=== PATIENT | female | born 1990 | race Caucasian/White ===

== ENCOUNTER 2020-10-11 21:49 | Inpatient (IN) | payer OTHER, SELFPAY ==
--- NOTE | ~2020-10-11 | XR_ITS ---
EXAMINATION: XR FOOT, LEFT CLINICAL INFORMATION: Pain COMPARISON: None TECHNIQUE: AP, lateral, and oblique views of the left foot. FINDINGS: Bone alignment is normal. No fracture or dislocation is seen. There is arthritis at the first MTP joint. Joint spaces are otherwise normal. There are calcaneal spurs. XR/XR foot LT 2V IMPRESSION: Arthritis at the first MTP joint and calcaneal spurs.
--- NOTE | ~2020-10-11 | CT_ITS ---
EXAMINATION: CT ABDOMEN AND PELVIS WITH CONTRAST CLINICAL INFORMATION: Abdominal pain COMPARISON: None TECHNIQUE: Multidetector volumetric images were obtained from the superior aspect of the liver through the pubic symphysis following administration 100 mL of Omnipaque 350 intravenous contrast. Sagittal and coronal reformatted images were obtained on the technologist's workstation. Oral contrast: No This CT examination was performed using dose optimization techniques as appropriate, variously including the following: *Automated exposure control *Adjustment of mA and/or kV according to patient size (this includes techniques or standardized protocols for targeted exams where dose is matched to indication/reason for exam; i.e. extremities or head) *Use of iterative reconstruction technique DLP: 1502 mGy-cm FINDINGS: LUNG BASES: The visualized lung bases are unremarkable. No pleural or pericardial effusion. LIVER, GALLBLADDER, AND BILIARY TREE: There is hepatomegaly with vertical span of approximately 23 cm. There appears to be fatty infiltration with no focal mass or intrahepatic bile duct dilatation identified. The gallbladder is unremarkable with no evidence of radiopaque gallstones, gallbladder wall thickening, or obvious pericholecystic inflammatory changes. PANCREAS: Unremarkable. SPLEEN: The spleen is mildly enlarged measuring approximately 14 cm in length. ADRENAL GLANDS: Unremarkable. KIDNEYS AND URETERS: The kidneys are normal in size, shape, and attenuation. No hydronephrosis, hydroureter, or calculi seen. No perinephric stranding. BLADDER: Unremarkable. GASTROINTESTINAL TRACT: No dilated loops of large or small bowel are evident. No free air or free fluid is seen. No pericolonic inflammatory changes noted. The appendix appears unremarkable. ABDOMINAL WALL: No significant hernia is appreciated. LYMPH NODES: Normal. VASCULAR: Unremarkable. PELVIC VISCERA: Unremarkable. OSSEOUS STRUCTURES: No suspicious destructive bony lesions identified. CT/CT abdomen pelvis w con IMPRESSION: Hepatosplenomegaly with fatty infiltration of the liver.
--- NOTE | ~2020-10-11 | US_ITS ---
EXAMINATION: US VENOUS ULTRASOUND WITH DOPPLER LOWER EXTREMITY, BILATERAL CLINICAL INFORMATION: Swelling COMPARISON: Previous exam 10/29/2020 TECHNIQUE: Ultrasound of the deep veins is performed from the hip to the calf with compression sonography and color and pulse Doppler assessment. Spectral analysis with color-flow imaging is performed. FINDINGS: RIGHT: There is normal venous compression and respiratory variation and augmented flow. The visualized common femoral vein, superficial femoral vein, profunda femoral vein, popliteal vein, and the trifurcation region shows no evidence of deep venous thrombosis. There is no significant popliteal fossa cyst. LEFT: There is normal venous compression and respiratory variation and augmented flow. The visualized common femoral vein, superficial femoral vein, profunda femoral vein, popliteal vein, and the trifurcation region shows no evidence of deep venous thrombosis. There is no significant popliteal fossa cyst. US/US venous duplex LE BI IMPRESSION: No DVT demonstrated in the bilateral lower extremity.
--- NOTE | ~2020-10-11 | CT_ITS ---
EXAMINATION: CT HEAD WITHOUT CONTRAST CLINICAL INFORMATION: Paranoid delusions COMPARISON: None TECHNIQUE: Contiguous axial imaging was performed from the skull base to vertex without intravenous administration of contrast. This CT examination was performed using dose optimization techniques as appropriate, variously including the following: *Automated exposure control *Adjustment of mA and/or kV according to patient size (this includes techniques or standardized protocols for targeted exams where dose is matched to indication/reason for exam; i.e. extremities or head) *Use of iterative reconstruction technique DLP: 1018 mGy-cm FINDINGS: There is no evidence of acute intracranial hemorrhage or territorial infarction. No abnormal mass effect or midline shift is seen. Banuelos to white matter differentiation is well preserved. No extra-axial fluid collections are identified. The ventricles are normal in size. There is no abnormal attenuation within the brain parenchyma. The osseous structures and soft tissues are normal. The mastoid air cells and visualized portions of the paranasal sinuses are well aerated. CT/CT head/brain wo con IMPRESSION: No acute intracranial pathology.
--- NOTE | ~2020-10-11 | XR_ITS ---
EXAMINATION: CHEST 2 VIEWS CLINICAL INFORMATION: Elevated white blood cell count. COMPARISON: None. TECHNIQUE: PA and lateral views of the chest were obtained. FINDINGS: The cardiac silhouette is not enlarged. The mediastinal and hilar contours are unremarkable. There are neither pleural effusions nor pneumothoraces. There are no consolidations. The osseous structures are unremarkable. XR/XR chest 2V IMPRESSION: No evidence for acute disease.
--- NOTE | ~2020-10-11 | US_ITS ---
EXAMINATION: US VENOUS ULTRASOUND WITH DOPPLER LOWER EXTREMITY, LEFT CLINICAL INFORMATION: Left calf warmth, painful COMPARISON: None TECHNIQUE: Ultrasound of the deep veins is performed from the hip to the calf with compression sonography and color and pulse Doppler assessment. Spectral analysis with color-flow imaging is performed. FINDINGS: There is normal venous compression and respiratory variation and augmented flow. The visualized common femoral vein, superficial femoral vein, profunda femoral vein, popliteal vein, and the trifurcation region shows no evidence of deep venous thrombosis. There is no significant popliteal fossa cyst. If the patient's symptoms persist, followup ultrasound in 5 days 7 days might be of value to exclude proximal propagation from a non-visualized calf vein. US/US venous duplex LE LT IMPRESSION: No DVT demonstrated in the left lower extremity.
--- NOTE | 2020-10-11 22:04 | MHC.CARE ---
[facility] crisis marble installer supervisor contacted re: pt who arrived on a Section 12 from [facility] for increasing disorientation and paranoid delusions. Pt was evaluated by [facility] this afternoon with disposition for respite placement, however once pt arrived to respite for admission pt was deemed not appropriate for that level of care. Pt will require a re-eval from [facility] to determine most appropriate course of treatment. No clinician will be available until the morning, per [facility] marble installer supervisor. Given that pt's crisis evaluation process is considered to be in progress, pt will remain in ED awaiting [facility] re-eval and will not be seen by CARE team.
[2020-10-11 22:22] VITALS: BP 146/82; PULSE 103; RESP 17; TEMP 36.9; O2SAT 95; BMI 63.5
--- NOTE | 2020-10-12 00:55 | PC.NURSE ---
This nurse called the PT's sister to find out more detail about the events that transpired earlier in the day. The sister explained that the PT called EMS because she believed that her sister was doing drugs in the bathroom. None of the claims made by the PT were substantiated by either PD or EMS on scene. The PT then called EMS again thereafter for herself because she did not feel well. [facility] became involved and had the PT assessed at one of their facility but the PT refused to admit herself voluntarily. [facility] then Sectioned the PT and had her sent to [facility] for assessment of paranoid behavior. After speaking with the sister this nurse transferred the call over to the unit phone so the PT could talk to her sister. After of few minutes of talking with her sister the PT became very distressed and started yelling for this nurse to come talk to the sister because her sister was ready to take her own life . This nurse picked up the phone and asked the sister if everything was all right. The sister confirmed that she was at home with her and had no intentions of hurting herself. This nurse then advised the PT to listen to what her sister was telling her and to try to get some rest at this time. The PT then hung up the phone and went to her room. PT was then agreeable to provide blood for labs. Continued to fixate on the fact that her sister was going to and she needed to speak with her before it was too late.
[2020-10-12 01:01] LABS: Basophils Absolute Auto 0.1 X10*3/uL (0.0-0.2); Basophils Percent Auto 0.4 % (0-2); Eosinophils Absolute Auto 0.1 X10*3/uL (0.0-0.4); Eosinophils Percent Auto 0.3 % (0-4); Hematocrit 41.4 % (37-47); Hemoglobin 13.9 g/dl (12.0-16.0); Imm Gran Abs Auto 0.08 X10*3/uL (0.00-0.03); Imm Gran Pct Auto 0.5 % (0.0-0.4); Lymphocytes Absolute Auto 3.7 X10*3/uL (1.2-4.9); Lymphocytes Percent Auto 22.4 % (20-40); MANUAL DIFF FLAG NO; Mean Corpuscular HGB Conc 33.6 g/dl (31.0-35.0); Mean Corpuscular Hemoglobin 27.9 pg (27.0-33.0); Mean Corpuscular Volume 83.1 fL (80-98); Mean Platelet Volume 9.9 fL (9.4-12.3); Monocytes Percent Auto 6.1 % (2-11); Neutrophils Absolute Auto 11.7 X10*3/uL (2.0-8.3); Neutrophils Percent Auto 70.3 % (45-73); Platelet Count 300 X10*3/uL (160-400); Red Blood Count 4.98 X10*6/uL (4.20-5.50); Red Cell Distribution Width 12.6 % (11.0-16.0); White Blood Count 16.6 X10*3/uL (4.8-10.8)
[2020-10-12 01:26] LABS: Ethanol < 10 mg/dL
[2020-10-12 01:28] LABS: Alanine Aminotransferase 50 U/L (0-31); Albumin Level 4.8 g/dL (3.5-5.0); Alkaline Phosphatase 86 U/L (39-117); Anion Gap 19 (12-20); Aspartate Amino Transferase 28 U/L (5-31); Bilirubin Direct 0.3 mg/dL (0.0-0.5); Bilirubin Total 0.8 mg/dL (0.0-1.0); Blood Urea Nitrogen 16 mg/dL (9-16); Calcium 9.7 mg/dL (8.4-10.2); Carbon Dioxide 25 mmol/L (22-29); Chloride 99 mmol/L (96-108); Creatinine Clr Calc Pharmacy 188.1; Estimated Glomerular Filt Rate > 60; Glucose Random 145 mg/dL (60-115); Potassium 3.6 mmol/L (3.3-5.1); Sodium 139 mmol/L (135-145); Total Protein 8.1 g/dL (6.5-8.0)
--- NOTE | 2020-10-12 01:32 | ED_ITS ---
HPI - Psych General Chief Complaint: Psychiatric Symptoms Stated Complaint: crisis Time Seen by Provider: 10/12/20 01:53 Source: patient Mode of arrival: EMS Limitations: no limitations History of Present Illness HPI Narrative: Patient presents to ED for psych evaluation. Patient does not understand why she is in the ED to be seen. Patient states her sister should be in the ED to be seen. Patient states her sister had tried multiple times to kill herself. Patient states she was trying to intervene with sister. Patient states his sister was in the bathroom trying to kill herself so she called EMS and the EMS brought her to ED for evaluation instead. Patient denies any suicidal homicidal thoughts. Patient denies any suicidal/homicidal ideation Related Data Previous Rx's Medication Instructions Recorded atenolol 50 mg-chlorthalidone 25 1 tab PO DAILY 30 Days #30 tab 10/01/20 mg tablet Allergies Allergy/AdvReac Type Severity Reaction Status Date / Time kiwi [KIWI] Allergy Mild HIVES Verified 10/01/20 14:49 mold [MOLD EXTRACTS*] Allergy Mild HIVES Verified 10/01/20 14:49 Review of Systems Review of Systems: Yes all other systems are reviewed and are negative Constitutional: Constitutional: Reports as per HPI and Reports no additional constitutional complaints Eyes: Eyes: Reports as per HPI and Reports no additional eye complaints ENT: Reports system reviewed and no additional complaints, except as documented and Reports as per HPI Cardiovascular: Cardiovascular: Reports as per HPI and Reports no additional cardiovascular complaints Respiratory: Respiratory: Reports as per HPI and Reports no additional respiratory complaints Gastrointestinal: Gastrointestinal: Reports as per HPI and Reports no additional gastrointestinal complaints Musculoskeletal: Musculoskeletal: Reports no additional musculoskeletal complaints and Reports as per HPI Neurologic: Reports system reviewed and no additional complaints, except as documented and Reports as per HPI Psychiatric: Psychiatric: Reports no additional psychiatric complaints COUNTS INCLUDE 234 BEDS AT THE [facility] Past Medical History Surgical History History of ovarian cyst History of wisdom tooth extraction Family History Family History Father HTN (hypertension) Diabetes mellitus Mother Afib Maternal Grandfather No problems noted. Maternal Grandmother No problems noted. Paternal Grandmother Breast cancer Paternal Grandfather No problems noted. Sister No problems noted. Social History Social History Alcohol intake: never Smoking Status: Never smoker Tobacco Type: Cigarette Smoked in Last 30 Days: No Use of substances other than those prescribed or required for medical reasons: No Advance Directives: No Advance Directives Information Provided: No Physical Exam Vital Signs: Vital Signs: Last Vital Signs Temp 98.4 F 10/11/20 22:22 Pulse 103 H 10/11/20 22:22 Resp 17 10/11/20 22:22 BP 146/82 H 10/11/20 22:22 Pulse Ox 95 10/11/20 22:22 Body Mass Index 63.5 Const: General: cooperative, healthy appearing, comfortable, no acute distress, well developed, alert, awake and Physically active Orientation/co nsciousness: patient oriented x3 HENMT: Head: Yes normal to inspection, Yes No palpable skull fracture present, Yes normocephalic, Yes atraumatic, No abrasion, No Acrocyanosis present, No Mobley's sign, No contusion, No cranial bruits, No hematoma, No laceration, No occipital foramen tenderness, No palpable skull fracture, No raccoon eyes, No scalp lesion, No scalp tenderness, No Temporal artery tenderness present, No periorbital ecchymosis and No other Eyes: General: appearance normal, both eyes and all related structures Neck: Neck: Yes normal visual inspection, Yes full ROM, Yes no lymphadenopathy, Yes no meningeal signs, Yes trachea midline, Yes supple and No tender Chest: Chest palpation & inspection: normal inspection of the chest and normal palpation of entire chest wall Resp: Effort & Inspection: normal respiratory effort and able to speak in complete sentences Cardio: Jugular venous distension: no JVD Heart sounds: S1 normal heart sound present and S2 normal heart sound present GI: Inspection: Yes normal to inspection and No abdominal wall ecchymosis Palpation (GI): Soft to palpation, not firm, nontender, no guarding and not rigid : General: No CVA tenderness and Yes no CVA tenderness Back/Spine/Pelvis: Back: no CVA tenderness, No CVA tenderness and No back tenderness Skin: General skin exam: no rashes or lesions noted and elasticity normal Neuro: General: patient oriented x3, gait normal, no meningeal signs and CN's II-XI intact bilaterally Extrem: General: Yes full ROM Psych: Appearance: grossly normal, well kempt and not disheveled Thought content: Paranoid delusions present Course Course Course Narrative: Soike with care team consulted Lucy and she states patient having paranoid delusions. Mother states patient is having delusions+-and is obsessed with the idea that her sister is trying to kill herself. Mother and sister states sister has never tried to kill herself. They states patient is having delusions with no merit. Reevaluation(s) Reevaluation #1: With this new information, behavioral crsis evaluation is recommended by her mother. Patient will have labs. Case signed out to Dr. Aj. patient has elevated WBC. will send for chest xray. pending UA. Time: 01:40 Discharge Plan Discharge Clinical Impression: Paranoid delusion Prescriptions: No Action atenolol-chlorthalidone 50-25 mg tablet 1 tab PO DAILY 30 Days Qty: 30 RF: 0
--- NOTE | 2020-10-12 02:22 | PC.NURSE ---
KUL[facility]EP faxed and called.
--- NOTE | 2020-10-12 05:08 | PC.NURSE ---
PT having difficulty sleeping. PT asked to have her brittney changed because it was too small on her. After PT changed she became distressed about the idea of going back into room number 6. PT stated that she could not go back into that room. PT was switched to room number 5 and went to sleep for the first time all night.
[2020-10-12 06:46] VITALS: BP 142/75; PULSE 89; RESP 17; TEMP 36.9; O2SAT 100
--- NOTE | 2020-10-12 06:58 | PC.NURSE ---
Report received. Pt currently sitting in her room, calm and cooperative, pt waiting to be seen by N.
[2020-10-12 08:40] LABS: Glucose Urine UA NEG (NEG); Leukocyte Esterase Urine NEG (NEG); Nitrite Urine NEG (NEG); PH 5.5 (5.0-8.0); Urine Blood NEG (NEG); Urine Ketones NEG (NEG); Urine Protein NEG (NEG-TRACE)
[2020-10-12 08:43] LABS: Appearance Urine CLEAR; Color Urine YELLOW
[2020-10-12 08:44] VITALS: BP 146/71; PULSE 92; RESP 16; TEMP 37.1; O2SAT 98
[2020-10-12 08:53] VITALS: BP 146/71; PULSE 92
[2020-10-12] MEDS: hydroCHLOROthiazide 25 MG TABLET PO (08:53)
[2020-10-12] MEDS: atenoloL 50 MG TABLET PO (08:53)
[2020-10-12 09:08] LABS: Amphetamine Screen Urine Not Detected (Not Detect); Barbiturates, Urine Not Detected (Not Detect); Benzodiazepines Screen Urine Not Detected (Not Detect); Cannabinoid Screen Urine Not Detected (Not Detect); Cocaine Screen Urine Not Detected (Not Detect); Opiate Screen Urine Not Detected (Not Detect); Phencyclidine Screen Urine Not Detected (Not Detect)
--- NOTE | 2020-10-12 09:33 | PC.NURSE ---
BHN at bedside for eval
--- NOTE | 2020-10-12 10:12 | PC.NURSE ---
PT approached this RN and said that there is an emergency at home, pt states that her sister is not doing well due to PTSD and that she needs an ambulance, pt redirected. This RN spoke with PT's sister, she assured this RN that she is fine and asked that I reassure PT. Pt currently calling family again, pt concerned about her mother and her dog at this time.
[2020-10-12] MEDS: LORazepam 1 MG TABLET 2 MG PO (11:05)
--- NOTE | 2020-10-12 13:04 | PC.NURSE ---
Late Entry: 11:05, pt anxious, believes her family to be in danger, pt called family multiple times and was assured that they are safe. PT continues to believe they are in danger/are . Pt redirected, verbal reassurance given. Pt labile, laughing and crying and then angry, Pt offered and accepted medication, medicated per EMAR.
--- NOTE | 2020-10-12 15:12 | PC.NURSE ---
Report received. Pt agitated, my mom and sister aren't okay , crying, swearing. Meeting with CARE team at current.
--- NOTE | 2020-10-12 15:46 | PC.NURSE ---
Continues to perseverate over family and cafe. I have the gift, everyone knows it, my family is on 's door and they are all suffering from PTSD
[2020-10-12] MEDS: OLANZapine 5 MG TABLET PO (15:51)
--- NOTE | 2020-10-12 15:59 | PC.NURSE ---
Crying, I have the mediumship, my family are going to , I am scared my dad is going to have a DVT and my mom is going to have a heart attack . Pt reassured by this RN that her family is safe. Pt offered and accepting of zyprexa 5 MG at that time. Effect pending. Pt on the phone at current.
--- NOTE | 2020-10-12 16:54 | PC.NURSE ---
Zyprexa had a positive effect. Pt sitting on bed at current, calm. No longer agitated, laughing with staff, not fixated on family or making any other delusion statements. Pt reports she is going to attempt to get some sleep.
--- NOTE | 2020-10-12 18:22 | PC.NURSE ---
Pt calm, sitting on bed. Disorganized, taking johnnies on and off, asking to shower or cleanup after she had done so 10 minutes prior, redirectable when reminded though. MHT taking vitals at bedside at current.
[2020-10-12 18:31] VITALS: BP 112/56; PULSE 81; RESP 14; TEMP 37.2; O2SAT 96
--- NOTE | 2020-10-12 19:24 | PC.NURSE ---
RECEIVED REPORT. REVIEWED CHART. PER REPORT PATIENT HAS NEVER HAD ANY MENTAL HEALTH ISSUES. THIS WAS ACUTE AND NEW ONSET. SPOKE WITH SUPA DEL VALLE WHO EVALUATED PATIENT UPON ARRIVAL LAST NIGHT. QUESTIONED WHY THERE WAS NO HEAD CT FOR ACUTE NEW ONSET PSYCHOSIS. PER SUPA DEL VALLE HE THOUGHT THERE WAS A HISTORY. REVIEWED RECORDS TOGETHER AND PLAN TO OBTAIN HEAD CT AT THIS TIME. WENT TO PATIENTS ROOM AND OFFERED THE PRESCRIBED ATIVAN PRIOR TO GOING TO CT. EXPLAINED WE NEED A CT TO RULE OUT EVERYTHING TO ENSURE THAT SHE IS FEELING BETTER AND SAFE TO GO HOME. PATIENT UPSET AND WANTS LIGHTS TO STAY DIMMED BECAUSE SHE DOES NO'T WANT THE BUGS TO BE HEARING HER. REPORTS FINDING A BUG ON HER MATTRESS. CONTINUES TO BELIEVE THAT MOM AND SISTER ARE ACTIVELY DYING FROM AN OVERDOSE DESPITE EVERY INDICATION OTHERWISE. PATIENT NOTED TO BE LOOKING AROUND ROOM AND RESPONDING TO INTERNAL STIMULI.
[2020-10-12 19:37] VITALS: BP 128/45; PULSE 83; RESP 22; TEMP 35.8; O2SAT 96
--- NOTE | 2020-10-12 19:38 | PC.NURSE ---
PATIENT CALLED THIS NURSE TO ROOM BECAUSE SHE FELT LIKE SHE WAS GOING TO FAINT. ASKED PATIENT TO SIT ON BED. VITALS OBTAINED. PATIENT NOW AGREEABLE TO HEAD CT. WILL GET PATIENT TO CT SOON POSSIBLE.
[2020-10-13] VITALS: RESP 22
[2020-10-13 07:03] VITALS: BP 116/66; PULSE 80; RESP 18; TEMP 37.4; O2SAT 96
--- NOTE | 2020-10-13 07:07 | PC.NURSE ---
Report received from SYDNEY Webb. Pt awake, affect even, eating breakfast.
[2020-10-13 07:31] LABS: UPreg QC Valid YES; Urine Pregnancy NEGATIVE (NEGATIVE)
[2020-10-13 08:30] VITALS: BP 132/73; PULSE 86
[2020-10-13] MEDS: atenoloL 50 MG TABLET PO (08:30)
[2020-10-13] MEDS: hydroCHLOROthiazide 25 MG TABLET PO (08:30)
--- NOTE | 2020-10-13 08:41 | PC.NURSE ---
Pt anxious, tearful, requiring frequent reassurances, often asking 'am I in trouble?' Pt oriented x3, declining to speak w/ family on the telephone initially because she wanted to speak to all her family at once in person. Pt encouraged to call. Pt gave permission to speak to her family.
[2020-10-13 08:50] LABS: COVID-19 Test Negative (Negative)
[2020-10-13] MEDS: LORazepam 1 MG TABLET 2 MG PO (09:16)
--- NOTE | 2020-10-13 09:23 | PC.NURSE ---
Pt continues to be anxious, persevering about family, worried that harm has occurred to them or will occur. Reviewed w/ A haseeb, pt medicated as ordered, currently awake, calling home.
--- NOTE | 2020-10-13 09:42 | PC.NURSE ---
Pt requesting to speak to a therapist, CARE team in to speak w/ pt.
--- NOTE | 2020-10-13 10:49 | MHC.CARE ---
CARE Team spent time with patient who was in distress about being in the hospital, she reported worrying about her mother and sister?s health, believes that something bad has happened or is about to happen. Offered supportive listening, reassurance, gave suggestions for self soothing and grounding which patient responded well to. She was nervous, tangential, said she is not hearing or seeing things but is, ?getting messages? such as when she suddenly felt cold patient attributed that to something bad about to happen to her sister. In addition, noticed that her nail cambodian and a scrap of paper were the same shade of pink and became tearful, said she knows that it has meaning and is scared of what that might be. Patient aware that she is in the hospital, feels there was a misunderstanding and should not be here, has been making calls to family. CARE Team available as needed.
--- NOTE | 2020-10-13 11:01 | PC.NURSE ---
Pt reports a reduction of anxiety after receiving ativan but continues to worry that something has happened to her family. pt attempted to reach her mother, who didn't flower buncher or picker, causing her more anxiety. Pt states that she is receiving messages from the [facility]' warning her that bad things will be happening to her family. Pt denies ah/vh.
--- NOTE | 2020-10-13 11:23 | PC.NURSE ---
Per M5, pt will not be transferred today- provider aware, consult entered, M5 called to confirm.
--- NOTE | 2020-10-13 11:53 | PC.NURSE ---
Pt awake, appears to be increasingly irritated, demanding to speak w/ HYDROELECTRIC MECHANIC 'of this company' stating that she would like to go home, stating she feels as if she is being punished for 'this gift from God.' Pt reassured, informed that consult was called and will be here to answer pt's questions.
[2020-10-13 12:00] VITALS: RESP 20
--- NOTE | 2020-10-13 13:27 | PC.NURSE ---
Late entry: pt seen by provider at her request to review labs and other results but per provider, pt no longer focused on this question. Karma continues to perseverate re: family safety, making many calls to confirm their safety. Pt reassured frequently, seen by several staff at her request. Awaiting psych consult, pt aware.
--- NOTE | 2020-10-13 14:02 | PC.NURSE ---
Loren Tijerina at bedside for evaluation at this time.
[2020-10-13 15:03] LABS: MANUAL DIFF FLAG NO
[2020-10-13 15:06] LABS: Basophils Absolute Auto 0.1 X10*3/uL (0.0-0.2); Basophils Percent Auto 0.4 % (0-2); Eosinophils Absolute Auto 0.1 X10*3/uL (0.0-0.4); Eosinophils Percent Auto 0.6 % (0-4); Hematocrit 38.1 % (37-47); Hemoglobin 12.8 g/dl (12.0-16.0); Imm Gran Abs Auto 0.07 X10*3/uL (0.00-0.03); Imm Gran Pct Auto 0.5 % (0.0-0.4); Lymphocytes Absolute Auto 3.8 X10*3/uL (1.2-4.9); Lymphocytes Percent Auto 26.3 % (20-40); Mean Corpuscular HGB Conc 33.6 g/dl (31.0-35.0); Mean Corpuscular Hemoglobin 27.9 pg (27.0-33.0); Mean Corpuscular Volume 83.2 fL (80-98); Monocytes Absolute Auto 1.1 X10*3/uL (0.1-1.2); Monocytes Percent Auto 7.9 % (2-11); Neutrophils Absolute Auto 9.2 X10*3/uL (2.0-8.3); Neutrophils Percent Auto 64.3 % (45-73); Platelet Count 270 X10*3/uL (160-400); Red Blood Count 4.58 X10*6/uL (4.20-5.50); Red Cell Distribution Width 12.6 % (11.0-16.0); White Blood Count 14.3 X10*3/uL (4.8-10.8)
[2020-10-13 15:26] LABS: Ammonia 30 umol/L (13-55)
[2020-10-13 15:51] LABS: Free T4 (Free Thyroxine) 1.15 ng/dL (0.71-1.85); Thyroid Stimulating Hormone 0.77 uIU/mL (0.32-4.0)
[2020-10-13 15:53] LABS: Syphilis Screen Nonreactive (Nonreactive)
[2020-10-13] MEDS: clonazePAM 1 MG TABLET PO ×2 (15:53→20:07)
--- NOTE | 2020-10-13 15:56 | P.CNPS_ITS ---
History of Present Illness Date of Service: 10/13/2020 Chief Complaint: Crisis Reason for Consult: medication evaluation Requesting physician: Suzie Hooper Discussed with referring provider: Yes Sources of Information: patient interviewed, chart reviewed and crisis/core team assessment reviewed HPI Narrative: Patient is a 30 year old female with no prior known history, currently in area of ED awaiting psychiatric admission. Per crisis eval, patient was initially admitted to respite, though upon presenting there staff became concerned that she required a higher level of care. Please see [facility] eval for history While in ED patient has been making statements about her fear that something bad is going to happen to her family, reported that her sister was attempting to take her own life, reported that her sister was using drugs. All of the statements were verified as being untrue. Patient seen in room 5 of area of ED. She is awake, alert, engaged in interview. Initially stating she did not want to say anything because her gift of talking to people that have passed has gotten her into trouble. Patient oriented X4 (though she disagrees with the circumstances). She is quite pressured and tangential, she believes she is being given messages from people that have passed and she needs to share them, when asked what the messages are, she reported that her sister is doing drugs and needs treatment and that she is going to get into a terrible car accident at 1:30pm. Patient jumping from topic to topic, fluctuating between irritability to laughter. 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[employer]) Review of Systems Review of Systems Yes all other systems are reviewed and are negative [facility] Surgical History History of ovarian cyst History of wisdom tooth extraction Diagnostics Vital Signs (24Hr): Vital Signs - 24 hr 10/12/20 18:31 10/12/20 19:37 10/13/20 00:00 Temperature 99.0 F 96.4 F L Pulse Rate 81 83 Respiratory Rate 14 22 H 22 H Blood Pressure 112/56 L 128/45 L Pulse Oximetry 96 96 10/13/20 07:03 10/13/20 08:30 10/13/20 12:00 Temperature 99.3 F Pulse Rate 80 86 Respiratory Rate 18 20 Blood Pressure 116/66 132/73 Pulse Oximetry 96 Body Mass Index 63.5 Labs Results: 10/13/20 14:56 10/12/20 00:55 Labs: Laboratory Results - last 48 hr 10/12/20 10/12/20 10/12/20 00:55 00:55 00:55 WBC 16.6 H RBC 4.98 Hgb 13.9 Hct 41.4 MCV 83.1 MCH 27.9 MCHC 33.6 RDW 12.6 Plt Count 300 MPV 9.9 Immature Gran % (Auto) 0.5 H Neut % (Auto) 70.3 Lymph % (Auto) 22.4 [place] % (Auto) 6.1 Eos % (Auto) 0.3 Baso % (Auto) 0.4 Lymph # (Auto) 3.7 [place] # (Auto) 1.0 Eos # (Auto) 0.1 Baso # (Auto) 0.1 Abs Immat Gran (auto) 0.08 H Absolute Neuts (auto) 11.7 H Absolute Nucleated RBC 0.000 Nucleated RBC % (auto) 0.0 Sodium 139 Potassium 3.6 Chloride 99 Carbon Dioxide 25 Anion Gap 19 BUN 16 Creatinine 0.82 Estim Creat Clear Calc 188.1 Estimated GFR > 60 Random Glucose 145 H Calcium 9.7 Total Bilirubin 0.8 Direct Bilirubin 0.3 AST 28 ALT 50 H Alkaline Phosphatase 86 Ammonia Total Protein 8.1 H Albumin 4.8 TSH Free T4 Urine Color Urine Appearance Urine pH Ur Specific [place] Urine Protein Urine Glucose (UA) Urine Ketones Urine Blood Urine Nitrite Ur Leukocyte Esterase Urine Test Urine Opiates Screen Ur Barbiturates Screen Ur Phencyclidine Scrn Ur Amphetamines Screen U Benzodiazepines Scrn Urine Cocaine Screen U Marijuana (THC) Screen Ethyl Alcohol < 10 T.pallidum Ab (EIA) COVID-19 (JONA) COVID-19 Clin Com 10/12/20 10/12/20 10/13/20 08:32 08:32 08:22 WBC RBC Hgb Hct MCV MCH MCHC RDW Plt Count MPV Immature Gran % (Auto) Neut % (Auto) Lymph % (Auto) [place] % (Auto) Eos % (Auto) Baso % (Auto) Lymph # (Auto) [place] # (Auto) Eos # (Auto) Baso # (Auto) Abs Immat Gran (auto) Absolute Neuts (auto) Absolute Nucleated RBC Nucleated RBC % (auto) Sodium Potassium Chloride Carbon Dioxide Anion Gap BUN Creatinine Estim Creat Clear Calc Estimated GFR Random Glucose Calcium Total Bilirubin Direct Bilirubin AST ALT Alkaline Phosphatase Ammonia Total Protein Albumin TSH Free T4 Urine Color YELLOW Urine Appearance CLEAR Urine pH 5.5 Ur Specific [place] 1.020 Urine Protein NEG Urine Glucose (UA) NEG Urine Ketones NEG Urine Blood NEG Urine Nitrite NEG Ur Leukocyte Esterase NEG Urine Test NEGATIVE Urine Opiates Screen Not Detected Ur Barbiturates Screen Not Detected Ur Phencyclidine Scrn Not Detected Ur Amphetamines Screen Not Detected U Benzodiazepines Scrn Not Detected Urine Cocaine Screen Not Detected U Marijuana (THC) Screen Not Detected Ethyl Alcohol T.pallidum Ab (EIA) COVID-19 (JONA) Negative COVID-[employer] See Note 10/13/20 10/13/20 10/13/20 14:51 14:55 14:56 WBC 14.3 H RBC 4.58 Hgb 12.8 Hct 38.1 MCV 83.2 MCH 27.9 MCHC 33.6 RDW 12.6 Plt Count 270 MPV 10.0 Immature Gran % (Auto) 0.5 H Neut % (Auto) 64.3 Lymph % (Auto) 26.3 [place] % (Auto) 7.9 Eos % (Auto) 0.6 Baso % (Auto) 0.4 Lymph # (Auto) 3.8 [place] # (Auto) 1.1 Eos # (Auto) 0.1 Baso # (Auto) 0.1 Abs Immat Gran (auto) 0.07 H Absolute Neuts (auto) 9.2 H Absolute Nucleated RBC 0.000 Nucleated RBC % (auto) 0.0 Sodium Potassium Chloride Carbon Dioxide Anion Gap BUN Creatinine Estim Creat Clear Calc Estimated GFR Random Glucose Calcium Total Bilirubin Direct Bilirubin AST ALT Alkaline Phosphatase Ammonia 30 Total Protein Albumin TSH Free T4 Urine Color Urine Appearance Urine pH Ur Specific [place] Urine Protein Urine Glucose (UA) Urine Ketones Urine Blood Urine Nitrite Ur Leukocyte Esterase Urine Test Urine Opiates Screen Ur Barbiturates Screen Ur Phencyclidine Scrn Ur Amphetamines Screen U Benzodiazepines Scrn Urine Cocaine Screen U Marijuana (THC) Screen Ethyl Alcohol T.pallidum Ab (EIA) Nonreactive COVID-19 (JONA) COVID-[employer] 10/13/20 10/13/20 14:56 14:56 WBC RBC Hgb Hct MCV MCH MCHC RDW Plt Count MPV Immature Gran % (Auto) Neut % (Auto) Lymph % (Auto) [place] % (Auto) Eos % (Auto) Baso % (Auto) Lymph # (Auto) [place] # (Auto) Eos # (Auto) Baso # (Auto) Abs Immat Gran (auto) Absolute Neuts (auto) Absolute Nucleated RBC Nucleated RBC % (auto) Sodium Potassium Chloride Carbon Dioxide Anion Gap BUN Creatinine Estim Creat Clear Calc Estimated GFR Random Glucose Calcium Total Bilirubin Direct Bilirubin AST ALT Alkaline Phosphatase Ammonia Total Protein Albumin TSH 0.77 Free T4 1.15 Urine Color Urine Appearance Urine pH Ur Specific [place] Urine Protein Urine Glucose (UA) Urine Ketones Urine Blood Urine Nitrite Ur Leukocyte Esterase Urine Test Urine Opiates Screen Ur Barbiturates Screen Ur Phencyclidine Scrn Ur Amphetamines Screen U Benzodiazepines Scrn Urine Cocaine Screen U Marijuana (THC) Screen Ethyl Alcohol T.pallidum Ab (EIA) COVID-19 (JONA) COVID-19 Clin Com Imaging Radiology Impressions: ITS Impressions Chest X-Ray 10/12/20 01:44 IMPRESSION: No evidence for acute disease. Head CT 10/12/20 19:11 IMPRESSION: No acute intracranial pathology. Mental Status Exam Mental Status Exam Patient Appearance: Appropriate Patient Orientation: Person, Place, Time and Situation Level of Consciousness: Awake, Appropriate and Alert Patient Behavior: Guarded, Talkative and Suspicious Mood Description: Suspicious, Angry and Expansive Affect Description: Suspicious, Angry and Expansive Ability to Follow Directions: Good Speech Pattern: Clear, Excessive and Pressured Delusions: Present Thought Process: Racing Thought Content: positive for Flight of Ideas, positive for Racing, positive for Perseveration, positive for Preoccupation and positive for Tangential Judgement: Poor Medications Medications Current Medications Generic Name Dose Route Start Last Admin Trade Name Freq PRN Reason Stop Dose Admin Atenolol 50 mg 10/12/20 09:00 10/13/20 08:30 Atenolol 50 Mg Tablet PO 50 mg DAILY [facility] Administration Protocol Clonazepam 1 mg 10/13/20 15:45 Clonazepam 1 Mg Tablet PO TID [facility] Hydrochlorothiazide 25 mg 10/12/20 09:00 10/13/20 08:30 Hydrochlorothiazide 25 Mg Tablet PO 25 mg DAILY [facility] Administration Protocol Risperidone 1 mg 10/13/20 21:00 Risperidone 1 Mg Tablet PO BID [facility] Allergies Allergies Allergy/AdvReac Type Severity Reaction Status Date / Time kiwi [KIWI] Allergy Mild HIVES Verified 10/01/20 14:49 mold [MOLD EXTRACTS*] Allergy Mild HIVES Verified 10/01/20 14:49 Assessment & Plan Assessment & Plan (1) Paranoid delusion: Status: Acute Code(s): F22 - Delusional disorders Recommendations: * additional labs ordered r/o infectious process * pending psychiatric admission, unclear family BH hx * Clonazepam and Risperidone scheduled for now while patient in ED * Avoid allowing patient to make unsupervised telephone calls, or limit phone calls to family who is aware of what is occurring. She has very little insight at this time and we should work to minimize the impact of her impaired state Greater than 50% of the session was spent on counseling and/or coordination of care
[2020-10-13 17:14] VITALS: BP 118/59; PULSE 84; RESP 18; TEMP 36.9; O2SAT 97
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
[2020-10-13] MEDS: risperiDONE 1 MG TABLET PO (20:07)
[2020-10-13 22:54] VITALS: BP 129/82; PULSE 90; RESP 20; TEMP 37; O2SAT 97
[2020-10-14 02:54] VITALS: BP 121/82; PULSE 88; RESP 18; TEMP 37.1; O2SAT 97
[2020-10-14] MEDS: risperiDONE 1 MG TABLET PO ×3 (03:09→20:05)
[2020-10-14] MEDS: LORazepam 1 MG TABLET 2 MG PO (03:09)
--- NOTE | 2020-10-14 03:41 | PC.NURSE ---
Patient restless, delusional, awake, repeatedly asking to make phone calls, provider notified/ordered Ativan 2 mg and Risperidone 1 mg PO administered as ordered, patient currently in bed, will continue to monitor.
[2020-10-14 05:59] VITALS: BP 159/53; PULSE 94; RESP 18; TEMP 36.9; O2SAT 96
--- NOTE | 2020-10-14 07:19 | PC.NURSE ---
PT OUT OF HER ROOM, TALKING ABOUT HOW SHE WAS NOT REGISTERED. ASKING TO SPEAK TO HER EMERGENCY CONTACTS, ASKING TO USE THE PHONE. PT REDIRECTED AND TOLD SHE CAN USE IT LATER, PT ASKING TO SPEAK TO A THERAPIST. PT APPEARS AGITATED AT THIS TIME. PT STATING SHE IS BEING LABELED SOMETHING ELSE WHEN I HAVE THE GIFT OF GOD PT BACK TO HER ROOM AT THIS TIME.
--- NOTE | 2020-10-14 07:54 | PC.NURSE ---
PT CURRENTLY FIXATED ON USING THE PHONE, NEEDS CONSTANT RE-DIRECTION.
[2020-10-14 09:21] VITALS: BP 130/79; PULSE 95; RESP 18; TEMP 36.9; O2SAT 96
[2020-10-14] MEDS: atenoloL 50 MG TABLET PO (09:21)
[2020-10-14] MEDS: clonazePAM 1 MG TABLET PO ×2 (09:21→20:08)
[2020-10-14] MEDS: hydroCHLOROthiazide 25 MG TABLET PO (09:21)
--- NOTE | 2020-10-14 10:06 | PC.NURSE ---
Pt is alert, rr even, speaks in full sentences, skin is pwdi. At start of this RNs shift pt was pacing the unit, at times will close eyes and appear to almost begin to fall when talking to staff. She re-orients quickly out of this behavior when verbally prompted. She took morning meds without issue. She denies knowledge of why she is here. Awaiting psych bed placement and possible BHN re-eval.
[2020-10-14 11:35] LABS: Glucose, Whole Blood 94 mg/dL (60-115)
--- NOTE | 2020-10-14 12:18 | PC.NURSE ---
Pt continues to pace periodically, asking of she can reivew her chart to verify accuracy of our information. When staff reply to her she tilts her back and gives the impression that she is going to have a syncopal episode. She re-orients quickly and appears to regain her legging, and takes redirection back to her room well. She re-ambulates back to her room steadily.
--- NOTE | 2020-10-14 12:38 | MHC.CARE ---
Pt was coming out into the waite of the pod and making requests and paranoid references. Pt was not logical and did not appear to be eased at attempts to redirect by example getting argumentative when offered comforts. T/w handed pt water at her request and pt replied can I have something to drink ?
--- NOTE | 2020-10-14 15:15 | PC.NURSE ---
Per N, bed search exhausted. They report she will be re-evaluated.
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
[2020-10-14 16:26] VITALS: BP 112/70; PULSE 85; RESP 16; O2SAT 96
--- NOTE | 2020-10-14 16:27 | PC.NURSE ---
Pt seemingly drowsy and sleepy came out of room, and appeared to almost fall holding on to wall. She did not fall, and was escorted back to her room and encouraged to try and get some sleep. She followed commands and is in bed at this time.
[2020-10-14 18:59] LABS: COVID-19 Test Negative (Negative)
--- NOTE | 2020-10-14 20:24 | PC.NURSE ---
Patient needs little prompting to take HS PO medication but compliant eventually. M5 RN to RN report completed, patient is in her room calm and quiet, will continue to monitor.
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
[2020-10-14 23:02] VITALS: BP 136/75; PULSE 81; O2SAT 100
[2020-10-15 01:04] VITALS: BMI 61.8
[2020-10-15 06:05] VITALS: BP 158/73; PULSE 84; RESP 16; TEMP 36.5; O2SAT 96
[2020-10-15 10:01] VITALS: BP 158/73; PULSE 89
[2020-10-15] MEDS: risperiDONE 1 MG TABLET PO (10:51)
[2020-10-15] MEDS: hydroCHLOROthiazide 25 MG TABLET PO (11:00)
[2020-10-15] MEDS: clonazePAM 1 MG TABLET PO ×2 (11:01→22:14)
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
[2020-10-15 16:10] VITALS: BP 138/73; PULSE 87; TEMP 37.2
--- NOTE | 2020-10-15 17:32 | PC.NURSE ---
[facility]-ASSISTED WITH CALL [facility]. AWAITING RETURN PHONE CALL
[2020-10-16 06:50] VITALS: BP 136/80; PULSE 91; RESP 18; TEMP 36.6; O2SAT 99
[2020-10-16 08:26] LABS: Estimated Average Glucose 111 mg/dL; Hemoglobin A1c % 5.5 %
[2020-10-16] MEDS: clonazePAM 1 MG TABLET PO ×2 (08:32→20:36)
[2020-10-16] MEDS: risperiDONE 1 MG TABLET PO (08:33)
[2020-10-16] MEDS: hydroCHLOROthiazide 25 MG TABLET PO (08:33)
[2020-10-16 08:34] VITALS: BP 136/80; PULSE 91
[2020-10-16] MEDS: atenoloL 50 MG TABLET PO (08:34)
[2020-10-16 08:37] LABS: Cholesterol 214 mg/dL; HDL Cholesterol 58 mg/dL; LDL Cholesterol Calculated 132 mg/dl; Triglycerides 123 mg/dL
[2020-10-16 09:20] LABS: Folate 15.2 ng/mL (> or = 4.0); Vitamin B12 300 pg/mL (200-900)
[2020-10-16] MEDS: Divalproex Sodium 500 MG TABLET.DR 1000 MG PO (13:26)
--- NOTE | 2020-10-16 15:40 | P.PNPSI_ITS ---
Subjective Subjective Date of Service: 10/16/20 Reason For Visit: Acute Psychosis Subjective Notes: Section 12B Interim History: Pt continues to present with labile mood. She reports being able to feel the spirits and angels always follow her. She also continues to present with paranoia and suspicious in that she does not think she needs to be in hospital and this is part of conspiracy to hurt her. She reports feeling great, there's nothing wrong with me. She also reports that she only want to take essential oils for mood and not medications. However, she did agree to take risperidone and depakote. This instructional writer spoke with pt's mother, Kiera. Medication Compliance: Intermittent Side effects from medications: No Attending Groups: Intermittent Review of Systems Review of Systems Yes all other systems are reviewed and are negative Constitutional: Reports as per HPI and Reports no additional constitutional complaints Eyes: Reports as per HPI and Reports no additional eye complaints Reports system reviewed and no additional complaints, except as documented and Reports as per HPI Cardiovascular: Reports as per HPI and Reports no additional cardiovascular complaints Respiratory: Reports as per HPI and Reports no additional respiratory complaints Gastrointestinal: Reports as per HPI and Reports no additional gastrointestinal complaints Musculoskeletal: Reports no additional musculoskeletal complaints and Reports as per HPI Reports system reviewed and no additional complaints, except as documented and Reports as per HPI Psychiatric: Reports no additional psychiatric complaints Mental Status Exam Mental Status Exam Narrative: Appearance: [place] woman wearing causal clothing, fair hygiene, casually groomed, NAD Behavior: guarded, suspicious Speech: clear, normal rate/rhythm/volume, spontaneous, hyperverbal but not pressured. TP: derailment, some loose associations, TC: paranoid delusions, some grandiose ideas about having cortes to be medium, hypersexual behavior VH/AH: denies, appears to be responding to internal stimuli SI: none HI: none Insight/judgment: impaired x 2. Memory/cog: alert, oriented to place, situation, otherwise impaired secondary to psychiatric symptoms. Patient Appearance: Appropriate Patient Orientation: Person, Place, Time and Situation Level of Consciousness: Awake, Appropriate and Alert Patient Behavior: Guarded, Talkative and Suspicious Mood Description: Suspicious, Angry and Expansive Affect Description: Suspicious, Angry and Expansive Ability to Follow Directions: Good Speech Pattern: Clear, Excessive and Pressured Diagnostics Vital Signs (24Hr): Vital Signs - 24 hr 10/15/20 16:10 10/16/20 06:50 10/16/20 08:34 Temperature 98.9 F 97.8 F Pulse Rate 87 91 91 Respiratory Rate 18 Blood Pressure 138/73 136/80 136/80 Pulse Oximetry 99 Body Mass Index 61.8 Labs Results: 10/13/20 14:56 10/12/20 00:55 Labs: Laboratory Results - last 48 hr 10/14/20 10/16/20 10/16/20 18:39 07:54 07:54 Estimat Average Glucose 111 Hemoglobin A1c % 5.5 Triglycerides Cholesterol LDL Cholesterol, Calc HDL Cholesterol Vitamin B12 300 Folate 15.2 COVID-19 ([facility]) Negative COVID-19 Clin Com See Note 10/16/20 07:54 Estimat Average Glucose Hemoglobin A1c % Triglycerides 123 Cholesterol 214 LDL Cholesterol, Calc 132 HDL Cholesterol 58 Vitamin B12 Folate COVID-19 ([facility]) COVID-19 Clin Com Imaging Radiology Impressions: ITS Impressions Chest X-Ray 10/12/20 01:44 IMPRESSION: No evidence for acute disease. Head CT 10/12/20 19:11 IMPRESSION: No acute intracranial pathology. Medications Medications Current Medications Generic Name Dose Route Start Last Admin Trade Name Freq PRN Reason Stop Dose Admin Acetaminophen 650 mg 10/14/20 22:36 Acetaminophen 325 Mg Tablet PO Q6H PRN Headache/Pain Mild Scale (1-3) Al Hydroxide/Mg Hydroxide 30 ml 10/14/20 22:36 Magnesium Hydrox/Alum Hydrox 30 Ml Oral.Susp PO Q6H PRN Heartburn/Nausea Atenolol 50 mg 10/12/20 09:00 10/16/20 08:34 Atenolol 50 Mg Tablet PO 50 mg DAILY INOCENCIO Administration Protocol Clonazepam 1 mg 10/14/20 21:00 10/16/20 08:32 Clonazepam 1 Mg Tablet PO 1 mg BID INOCENCIO Administration Divalproex Sodium 1,000 mg 10/16/20 10:40 10/16/20 13:26 Divalproex Sodium 500 Mg Tablet.Dr PO 1,000 mg DAILY INOCENCIO Administration Hydrochlorothiazide 25 mg 10/12/20 09:00 10/16/20 08:33 Hydrochlorothiazide 25 Mg Tablet PO 25 mg DAILY INOCENCIO Administration Protocol Hydroxyzine HCl 25 mg 10/14/20 22:36 Hydroxyzine Hcl 25 Mg Tablet PO Q4H PRN mild Anxiety Magnesium Hydroxide 30 ml 10/14/20 22:36 Milk Of Magnesia 30 Ml Oral.Susp PO DAILY PRN Constipation Nicotine Polacrilex 4 mg 10/14/20 22:36 Nicotine Polacrilex 2 Mg Gum BUCCAL Q2H PRN Nicotine Cravings Risperidone 1 mg 10/13/20 21:00 10/16/20 08:33 Risperidone 1 Mg Tablet PO 1 mg BID INOCENCIO Administration Risperidone 1 mg 10/15/20 18:17 Risperidone 1 Mg Tablet PO Q6H PRN Restlessness Trazodone HCl 50 mg 10/14/20 22:36 Trazodone Hcl 50 Mg Tablet PO BEDTIME PRN Insomnia Allergies Allergies Allergy/AdvReac Type Severity Reaction Status Date / Time kiwi [KIWI] Allergy Mild HIVES Verified 10/01/20 14:49 mold [MOLD EXTRACTS*] Allergy Mild HIVES Verified 10/01/20 14:49 Assessment & Plan Assessment & Plan (1) Psychosis: Status: Acute Code(s): F29 - Unspecified psychosis not due to a substance or known physiological condition Assessment and Plan: 1. Admit to M5 2. Increase Risperidone 2mg po BID. 3. Start depakote [id number] po daily. (2) Hypertension, essential: Status: Acute Code(s): I10 - Essential (primary) hypertension (3) Factor 5 Leiden mutation, heterozygous: Status: Acute Code(s): D68.51 - Activated protein C resistance Greater than 50% of the session was spent on counseling and/or coordination of care Reason for contiued inpatient stay Substantial Risk for: inability to function
[2020-10-16 18:00] VITALS: BP 122/82; PULSE 85; TEMP 37.6
[2020-10-16] MEDS: risperiDONE 2 MG TABLET PO (20:36)
[2020-10-16] MEDS: traZODone HCL 50 MG TABLET PO (20:37)
[2020-10-17 03:39] LABS: Syphilis Screen Nonreactive (Nonreactive)
[2020-10-17] MEDS: hydroCHLOROthiazide 25 MG TABLET PO (08:59)
[2020-10-17 09:00] VITALS: BP 122/82; PULSE 85
[2020-10-17] MEDS: atenoloL 50 MG TABLET PO (09:00)
[2020-10-17] MEDS: clonazePAM 1 MG TABLET PO ×2 (09:00→19:58)
[2020-10-17] MEDS: risperiDONE 2 MG TABLET PO ×2 (09:30→19:58)
--- NOTE | 2020-10-17 13:39 | P.PNPSI_ITS ---
Subjective Subjective Date of Service: 10/17/20 Reason For Visit: Acute Psychosis Subjective Notes: Section 12B Interim History: Pt continues to present with labile mood. She talks about spirits, being able to sense them. She talks about no one being able to cause any danger to her because she is protected by angels. She laughs at times, with expansive mood but later becomes very irritable, tearful and dysregulated. Pt has no insight into current symptoms that appear to be consistent with a manic episode. Petition for involuntary treatment completed today. This telegraphic typewriter installer spoke with pt's mother, Kiera. Review of Systems Review of Systems Yes all other systems are reviewed and are negative Constitutional: Reports as per HPI and Reports no additional constitutional complaints Eyes: Reports as per HPI and Reports no additional eye complaints Reports system reviewed and no additional complaints, except as documented and Reports as per HPI Cardiovascular: Reports as per HPI and Reports no additional cardiovascular complaints Respiratory: Reports as per HPI and Reports no additional respiratory complaints Gastrointestinal: Reports as per HPI and Reports no additional gastrointestinal complaints Musculoskeletal: Reports no additional musculoskeletal complaints and Reports as per HPI Reports system reviewed and no additional complaints, except as documented and Reports as per HPI Psychiatric: Reports no additional psychiatric complaints Mental Status Exam Mental Status Exam Narrative: Appearance: [place] woman wearing causal clothing, fair hygiene, casually groomed, NAD Behavior: guarded, suspicious Speech: clear, normal rate/rhythm/volume, spontaneous, hyperverbal but not pressured. TP: derailment, some loose associations, TC: paranoid delusions, some grandiose ideas about having cortes to be medium, hypersexual behavior VH/AH: denies, appears to be responding to internal stimuli SI: none HI: none Insight/judgment: impaired x 2. Memory/cog: alert, oriented to place, situation, otherwise impaired secondary to psychiatric symptoms. Patient Appearance: Appropriate Patient Orientation: Person, Place, Time and Situation Level of Consciousness: Awake, Appropriate and Alert Patient Behavior: Guarded, Talkative and Suspicious Mood Description: Suspicious, Angry and Expansive Affect Description: Suspicious, Angry and Expansive Ability to Follow Directions: Good Speech Pattern: Clear, Excessive and Pressured Diagnostics Vital Signs (24Hr): Vital Signs - 24 hr 10/16/20 18:00 10/17/20 09:00 Temperature 99.6 F Pulse Rate 85 85 Blood Pressure 122/82 122/82 Body Mass Index 61.8 Labs Results: 10/13/20 14:56 10/12/20 00:55 Labs: Laboratory Results - last 48 hr 10/16/20 10/16/20 10/16/20 07:54 07:54 07:54 Estimat Average Glucose 111 Hemoglobin A1c % 5.5 Triglycerides Cholesterol LDL Cholesterol, Calc HDL Cholesterol Vitamin B12 300 Folate 15.2 T.pallidum Ab (EIA) Nonreactive 10/16/20 07:54 Estimat Average Glucose Hemoglobin A1c % Triglycerides 123 Cholesterol 214 LDL Cholesterol, Calc 132 HDL Cholesterol 58 Vitamin B12 Folate T.pallidum Ab (EIA) Imaging Radiology Impressions: ITS Impressions Chest X-Ray 10/12/20 01:44 IMPRESSION: No evidence for acute disease. Head CT 10/12/20 19:11 IMPRESSION: No acute intracranial pathology. Medications Medications Current Medications Generic Name Dose Route Start Last Admin Trade Name Freq PRN Reason Stop Dose Admin Acetaminophen 650 mg 10/14/20 22:36 Acetaminophen 325 Mg Tablet PO Q6H PRN Headache/Pain Mild Scale (1-3) Al Hydroxide/Mg Hydroxide 30 ml 10/14/20 22:36 Magnesium Hydrox/Alum Hydrox 30 Ml Oral.Susp PO Q6H PRN Heartburn/Nausea Atenolol 50 mg 10/12/20 09:00 10/17/20 09:00 Atenolol 50 Mg Tablet PO 50 mg DAILY INOCENCIO Administration Protocol Benztropine Mesylate 1 mg 10/16/20 15:48 Benztropine Mesylate 0.5 Mg Tablet PO BID PRN Extrapyramidal Effects Chlorpromazine HCl 50 mg 10/16/20 15:50 Chlorpromazine Hcl 25 Mg Tablet PO Q6H PRN agitation Clonazepam 1 mg 10/14/20 21:00 10/17/20 09:00 Clonazepam 1 Mg Tablet PO 1 mg BID INOCENCIO Administration Divalproex Sodium 1,000 mg 10/16/20 10:40 10/17/20 09:30 Divalproex Sodium 500 Mg Tablet.Dr PO Not Given DAILY INOCENCIO Hydrochlorothiazide 25 mg 10/12/20 09:00 10/17/20 08:59 Hydrochlorothiazide 25 Mg Tablet PO 25 mg DAILY INOCENCIO Administration Protocol Hydroxyzine HCl 25 mg 10/14/20 22:36 Hydroxyzine Hcl 25 Mg Tablet PO Q4H PRN mild Anxiety Magnesium Hydroxide 30 ml 10/14/20 22:36 Milk Of Magnesia 30 Ml Oral.Susp PO DAILY PRN Constipation Nicotine Polacrilex 4 mg 10/14/20 22:36 Nicotine Polacrilex 2 Mg Gum BUCCAL Q2H PRN Nicotine Cravings Risperidone 2 mg 10/16/20 21:00 10/17/20 09:30 Risperidone 2 Mg Tablet PO 2 mg BID INOCENCIO Administration Trazodone HCl 50 mg 10/14/20 22:36 Trazodone Hcl 50 Mg Tablet PO BEDTIME PRN Insomnia Trazodone HCl 50 mg 10/16/20 21:00 10/16/20 20:37 Trazodone Hcl 50 Mg Tablet PO 50 mg BEDTIME INOCENCIO Administration Allergies Allergies Allergy/AdvReac Type Severity Reaction Status Date / Time kiwi [KIWI] Allergy Mild HIVES Verified 10/01/20 14:49 mold [MOLD EXTRACTS*] Allergy Mild HIVES Verified 10/01/20 14:49 Assessment & Plan Assessment & Plan (1) Psychosis: Status: Acute Code(s): F29 - Unspecified psychosis not due to a substance or known physiological condit ion Assessment and Plan: 1. Admit to M5 2. Increase Risperidone 2mg po BID. 3. Start depakote [id number] po daily. (2) Hypertension, essential: Status: Acute Code(s): I10 - Essential (primary) hypertension (3) Factor 5 Leiden mutation, heterozygous: Status: Acute Code(s): D68.51 - Activated protein C resistance Greater than 50% of the session was spent on counseling and/or coordination of care Reason for contiued inpatient stay Substantial Risk for: inability to function
[2020-10-17] MEDS: traZODone HCL 50 MG TABLET PO (19:58)
[2020-10-18 06:55] VITALS: BP 147/65; PULSE 80; RESP 16; TEMP 36.3; O2SAT 99
[2020-10-18] MEDS: hydroCHLOROthiazide 25 MG TABLET PO (08:16)
[2020-10-18] MEDS: risperiDONE 2 MG TABLET PO ×2 (08:17→20:46)
[2020-10-18] MEDS: clonazePAM 1 MG TABLET PO ×2 (08:17→20:46)
[2020-10-18 08:21] VITALS: BP 147/65; PULSE 80
[2020-10-18] MEDS: atenoloL 50 MG TABLET PO (08:21)
--- NOTE | 2020-10-18 09:55 | HO.PSYCHPN ---
Subjective Subjective Date of Service: 10/18/20 Reason For Visit: Acute Psychosis Interim History: Pt seen, chart reviewed, case discussed vitals reviewed: mild htn pt would not speak to conventional mortgage underwriter; she nodded toward to questions but it was difficult to discern if she was answering yes or just nodding; otherwise, pt was walking around milue somewhat aimlessly. She was placed in isolation waiting for Covid test results, but would need redirection to stay in her room. Nursing staff said pt was having trouble being organized enough to take medication and asked conventional mortgage underwriter to convert Depakote to Sprinkles, to which conventional mortgage underwriter agreed. Medication Compliance: Intermittent Attending Groups: No Mental Status Exam Mental Status Exam Patient Appearance: Disheveled Patient Orientation: Person Level of Consciousness: Awake and Follows Commands Patient Behavior: Wandering and Confused Mood Description: Anxious Affect Description: Constricted Ability to Follow Directions: Poor Speech Pattern: Difficulty Finding Words Thought Process: Disoriented Thought Content: positive for Thought Blocking and positive for Disorganized Judgement: Poor Judgement and Insight: poor Diagnostics Vital Signs (24Hr): Vital Signs - 24 hr 10/18/20 06:55 10/18/20 08:21 Temperature 97.4 F Pulse Rate 80 80 Respiratory Rate 16 Blood Pressure 147/65 H 147/65 H Pulse Oximetry 99 Body Mass Index 61.8 Labs Results: 10/20/20 08:12 10/12/20 00:55 Labs: Laboratory Results - last 48 hr 10/16/20 07:54 T.pallidum Ab (EIA) Nonreactive Imaging Radiology Impressions: ITS Impressions Chest X-Ray 10/12/20 01:44 IMPRESSION: No evidence for acute disease. Head CT 10/12/20 19:11 IMPRESSION: No acute intracranial pathology. Medications Medications Current Medications Generic Name Dose Route Start Last Admin Trade Name Freq PRN Reason Stop Dose Admin Acetaminophen 650 mg 10/14/20 22:36 Acetaminophen 325 Mg Tablet PO Q6H PRN Headache/Pain Mild Scale (1-3) Al Hydroxide/Mg Hydroxide 30 ml 10/14/20 22:36 Magnesium Hydrox/Alum Hydrox 30 Ml Oral.Susp PO Q6H PRN Heartburn/Nausea Atenolol 50 mg 10/12/20 09:00 10/18/20 08:21 Atenolol 50 Mg Tablet PO 50 mg DAILY INOCENCIO Administration Protocol Benztropine Mesylate 1 mg 10/16/20 15:48 Benztropine Mesylate 0.5 Mg Tablet PO BID PRN Extrapyramidal Effects Chlorpromazine HCl 50 mg 10/16/20 15:50 Chlorpromazine Hcl 25 Mg Tablet PO Q6H PRN agitation Clonazepam 1 mg 10/14/20 21:00 10/18/20 08:17 Clonazepam 1 Mg Tablet PO 1 mg BID INOCENCIO Administration Divalproex Sodium 1,000 mg 10/18/20 09:00 Divalproex Sodium Sprinkles 125 Mg Cap.Dr.Spr PO DAILY INOCENCIO Hydrochlorothiazide 25 mg 10/12/20 09:00 10/18/20 08:16 Hydrochlorothiazide 25 Mg Tablet PO 25 mg DAILY INOCENCIO Administration Protocol Hydroxyzine HCl 25 mg 10/14/20 22:36 Hydroxyzine Hcl 25 Mg Tablet PO Q4H PRN mild Anxiety Magnesium Hydroxide 30 ml 10/14/20 22:36 Milk Of Magnesia 30 Ml Oral.Susp PO DAILY PRN Constipation Nicotine Polacrilex 4 mg 10/14/20 22:36 Nicotine Polacrilex 2 Mg Gum BUCCAL Q2H PRN Nicotine Cravings Risperidone 2 mg 10/16/20 21:00 10/18/20 08:17 Risperidone 2 Mg Tablet PO 2 mg BID INOCENCIO Administration Trazodone HCl 50 mg 10/14/20 22:36 Trazodone Hcl 50 Mg Tablet PO BEDTIME PRN Insomnia Trazodone HCl 50 mg 10/16/20 21:00 10/17/20 19:58 Trazodone Hcl 50 Mg Tablet PO 50 mg BEDTIME INOCENCIO Administration Allergies Allergies Allergy/AdvReac Type Severity Reaction Status Date / Time kiwi [KIWI] Allergy Mild HIVES Verified 10/01/20 14:49 mold [MOLD EXTRACTS*] Allergy Mild HIVES Verified 10/01/20 14:49 Assessment & Plan Impression: pt with reportedly little hx of psychiatric illness presents with psychotic symptoms Pt disorganized in speech and behavior but redirectable dx: provisional dx of psychotic disorder, unspecified plan: converted depakote to sprinkles otherwise continue primary teams treatment plan Greater than 50% of the session was spent on counseling and/or coordination of care Reason for contiued inpatient stay Substantial Risk for: med/psych decompensation
[2020-10-18] MEDS: Divalproex Sodium Sprinkles 125 MG CAP.DR.SPR 1000 MG PO (10:25)
[2020-10-18 13:22] LABS: COVID-19 Test Negative (Negative)
[2020-10-18 18:00] VITALS: BP 153/73; PULSE 102; TEMP 37.1
[2020-10-18] MEDS: traZODone HCL 50 MG TABLET PO (20:46)
--- NOTE | 2020-10-18 21:30 | PC.NURSE ---
[facility] called stating that patient was calling them.
[2020-10-19 04:00] VITALS: BP 138/70; PULSE 86; RESP 18; TEMP 36.3; O2SAT 95
[2020-10-19] MEDS: clonazePAM 1 MG TABLET PO (08:55)
[2020-10-19] MEDS: hydroCHLOROthiazide 25 MG TABLET PO (08:55)
[2020-10-19] MEDS: risperiDONE 2 MG TABLET PO (08:55)
[2020-10-19 08:56] VITALS: BP 138/70; PULSE 86
[2020-10-19] MEDS: atenoloL 50 MG TABLET PO (08:56)
[2020-10-19] MEDS: Divalproex Sodium Sprinkles 125 MG CAP.DR.SPR 1000 MG PO (09:05)
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
[2020-10-19 18:00] VITALS: BP 148/76; PULSE 86; TEMP 36.3
[2020-10-20 06:00] VITALS: BP 129/60; PULSE 90; RESP 18; TEMP 36.9; O2SAT 95
[2020-10-20 08:16] VITALS: BP 129/60; PULSE 90
[2020-10-20] MEDS: atenoloL 50 MG TABLET PO (08:16)
[2020-10-20] MEDS: Divalproex Sodium Sprinkles 125 MG CAP.DR.SPR 1000 MG PO (08:16)
[2020-10-20] MEDS: risperiDONE 2 MG TABLET PO (08:17)
[2020-10-20] MEDS: hydroCHLOROthiazide 25 MG TABLET PO (08:17)
[2020-10-20 08:19] LABS: MANUAL DIFF FLAG NO
[2020-10-20 08:23] LABS: Basophils Percent Auto 0.4 % (0-2); Eosinophils Absolute Auto 0.1 X10*3/uL (0.0-0.4); Eosinophils Percent Auto 1.1 % (0-4); Hematocrit 36.3 % (37-47); Imm Gran Abs Auto 0.07 X10*3/uL (0.00-0.03); Imm Gran Pct Auto 0.6 % (0.0-0.4); Lymphocytes Absolute Auto 2.7 X10*3/uL (1.2-4.9); Lymphocytes Percent Auto 24.8 % (20-40); Mean Corpuscular HGB Conc 33.1 g/dl (31.0-35.0); Mean Corpuscular Hemoglobin 27.7 pg (27.0-33.0); Mean Corpuscular Volume 83.8 fL (80-98); Monocytes Absolute Auto 1.1 X10*3/uL (0.1-1.2); Monocytes Percent Auto 9.9 % (2-11); Neutrophils Absolute Auto 6.9 X10*3/uL (2.0-8.3); Neutrophils Percent Auto 63.2 % (45-73); Platelet Count 232 X10*3/uL (160-400); Red Blood Count 4.33 X10*6/uL (4.20-5.50); Red Cell Distribution Width 12.5 % (11.0-16.0); White Blood Count 10.9 X10*3/uL (4.8-10.8)
[2020-10-20 08:52] LABS: Alanine Aminotransferase 47 U/L (0-31); Albumin Level 4.3 g/dL (3.5-5.0); Alkaline Phosphatase 70 U/L (39-117); Aspartate Amino Transferase 30 U/L (5-31); Bilirubin Direct 0.2 mg/dL (0.0-0.5); Bilirubin Total 0.8 mg/dL (0.0-1.0); Total Protein 7.1 g/dL (6.5-8.0)
[2020-10-20 09:07] LABS: Valproate 30.2 mcg/mL (50.0-100.0)
[2020-10-20 16:20] VITALS: BP 137/64; PULSE 73; TEMP 36.6
[2020-10-20 19:13] VITALS: BP 133/73; PULSE 74; O2SAT 99
--- NOTE | 2020-10-20 20:06 | P.PNPSI_ITS ---
Subjective Subjective Date of Service: 10/20/20 Reason For Visit: Acute Psychosis Interim History: today, pt said excuse me to technical publications writer. [employer]er approached patient and attempted to engage, however pt just started at technical publications writer and would not respond. Later, patient tried to block technical publications writer from passing her in the hallway, repeatedly getting in writers way and then pushing a box she was carrying into technical publications writer. Pt continued to do this a few times after technical publications writer attempted to redirect her but then stopped and stared at technical publications writer. She would not speak to technical publications writer. She then said outloud in [place] i have factor 5 leiden...i need an IV. Medication Compliance: Yes Attending Groups: No Mental Status Exam Mental Status Exam Narrative: Patient Appearance: mildly malodorous, unkempt Patient Orientation: Person, place, time Level of Consciousness: Awake, alert Patient Behavior: disorganized; confrontational Mood Description: Anxious Affect Description: Constricted Ability to Follow Directions: poor Thought Process: disorganized Thought Content: delusional Judgment and Insight: poor Diagnostics Vital Signs (24Hr): Vital Signs - 24 hr 10/20/20 06:00 10/20/20 08:16 10/20/20 16:20 Temperature 98.4 F 97.9 F Pulse Rate 90 90 73 Respiratory Rate 18 Blood Pressure 129/60 129/60 137/64 Pulse Oximetry 95 10/20/20 19:13 Temperature Pulse Rate 74 Respiratory Rate Blood Pressure 133/73 Pulse Oximetry 99 Body Mass Index 61.8 Labs Results: 10/20/20 08:12 10/12/20 00:55 Labs: Laboratory Results - last 48 hr 10/20/20 10/20/20 08:12 08:12 WBC 10.9 H RBC 4.33 Hgb 12.0 Hct 36.3 L MCV 83.8 MCH 27.7 MCHC 33.1 RDW 12.5 Plt Count 232 MPV 10.0 Immature Gran % (Auto) 0.6 H Neut % (Auto) 63.2 Lymph % (Auto) 24.8 [place] % (Auto) 9.9 Eos % (Auto) 1.1 Baso % (Auto) 0.4 Lymph # (Auto) 2.7 [place] # (Auto) 1.1 Eos # (Auto) 0.1 Baso # (Auto) 0.0 Abs Immat Gran (auto) 0.07 H Absolute Neuts (auto) 6.9 Absolute Nucleated RBC 0.000 Nucleated RBC % (auto) 0.0 Total Bilirubin 0.8 Direct Bilirubin 0.2 AST 30 ALT 47 H Alkaline Phosphatase 70 Total Protein 7.1 Albumin 4.3 Valproic Acid 30.2 L Imaging Radiology Impressions: ITS Impressions Chest X-Ray 10/12/20 01:44 IMPRESSION: No evidence for acute disease. Head CT 10/12/20 19:11 IMPRESSION: No acute intracranial pathology. Medications Medications Current Medications Generic Name Dose Route Start Last Admin Trade Name Freq PRN Reason Stop Dose Admin Acetaminophen 650 mg 10/14/20 22:36 Acetaminophen 325 Mg Tablet PO Q6H PRN Headache/Pain Mild Scale (1-3) Al Hydroxide/Mg Hydroxide 30 ml 10/14/20 22:36 Magnesium Hydrox/Alum Hydrox 30 Ml Oral.Susp PO Q6H PRN Heartburn/Nausea Atenolol 50 mg 10/12/20 09:00 10/20/20 08:16 Atenolol 50 Mg Tablet PO 50 mg DAILY INOCENCIO Administration Protocol Benztropine Mesylate 1 mg 10/16/20 15:48 Benztropine Mesylate 0.5 Mg Tablet PO BID PRN Extrapyramidal Effects Chlorpromazine HCl 50 mg 10/16/20 15:50 Chlorpromazine Hcl 25 Mg Tablet PO Q6H PRN agitation Divalproex Sodium 1,000 mg 10/18/20 09:00 10/20/20 08:16 Divalproex Sodium Sprinkles 125 Mg Cap.DrJcSpr PO 1,000 mg DAILY INOCENCIO Administration Hydrochlorothiazide 25 mg 10/12/20 09:00 10/20/20 08:17 Hydrochlorothiazide 25 Mg Tablet PO 25 mg DAILY INOCENCIO Administration Protocol Hydroxyzine HCl 25 mg 10/14/20 22:36 Hydroxyzine Hcl 25 Mg Tablet PO Q4H PRN mild Anxiety Magnesium Hydroxide 30 ml 10/14/20 22:36 Milk Of Magnesia 30 Ml Oral.Susp PO DAILY PRN Constipation Nicotine Polacrilex 4 mg 10/14/20 22:36 Nicotine Polacrilex 2 Mg Gum BUCCAL Q2H PRN Nicotine Cravings Risperidone 2 mg 10/16/20 21:00 10/20/20 08:17 Risperidone 2 Mg Tablet PO 2 mg BID INOCENCIO Administration Trazodone HCl 50 mg 10/14/20 22:36 Trazodone Hcl 50 Mg Tablet PO BEDTIME PRN Insomnia Trazodone HCl 50 mg 10/16/20 21:00 10/19/20 20:39 Trazodone Hcl 50 Mg Tablet PO Not Given BEDTIME INOCENCIO Allergies Allergies Allergy/AdvReac Type Severity Reaction Status Date / Time kiwi [KIWI] Allergy Mild HIVES Verified 10/01/20 14:49 mold [MOLD EXTRACTS*] Allergy Mild HIVES Verified 10/01/20 14:49 Assessment & Plan Impression: pt with reportedly little hx of psychiatric illness presents with psychotic symptoms Mostly Pt with disorganized in speech and behavior but typically redirectable dx: provisional dx of psychotic disorder, unspecified plan: ordered labs to monitor since pt started on depakote lfts, platelets, lyes, grossly WNL Depakote level low, likely due to non-adherence; switched to sprinkles converted depakote to sprinkles otherwise continue primary teams treatment plan Greater than 50% of the session was spent on counseling and/or coordination of care Reason for contiued inpatient stay Substantial Risk for: med/psych decompensation
[2020-10-21] MEDS: chlorproMAZINE HCl 25 MG TABLET 50 MG PO (02:33)
[2020-10-21] MEDS: hydrOXYzine HCL 25 MG TABLET PO (02:33)
[2020-10-21 04:40] VITALS: BP 132/69; PULSE 70; RESP 18; TEMP 36.9; O2SAT 96
--- NOTE | 2020-10-21 10:57 | P.PNPSI_ITS ---
Subjective Subjective Date of Service: 10/21/20 Reason For Visit: Acute Psychosis Interim History: Pt continues to present as labile, disorganized, with combination of paranoid, somatic and grandiose delusions. She continues to decline taking medications as she lacks insight into current symptoms stating I'm just medium, why everybody think I need treatment. She is intrusive towards peers and staff. She was trowing her food on floor because she thought there may be mold in her room. She denies SI/HI. She becomes easily irritable when redirected due to poor boundaries with others. Review of Systems Review of Systems Yes all other systems are reviewed and are negative Constitutional: Reports as per HPI and Reports no additional constitutional complaints Eyes: Reports as per HPI and Reports no additional eye complaints Reports system reviewed and no additional complaints, except as documented and Reports as per HPI Cardiovascular: Reports as per HPI and Reports no additional cardiovascular complaints Respiratory: Reports as per HPI and Reports no additional respiratory complaints Gastrointestinal: Reports as per HPI and Reports no additional gastrointestinal complaints Musculoskeletal: Reports no additional musculoskeletal complaints and Reports as per HPI Reports system reviewed and no additional complaints, except as documented and Reports as per HPI Psychiatric: Reports no additional psychiatric complaints Mental Status Exam Mental Status Exam Narrative: Patient Appearance: mildly malodorous, unkempt Patient Orientation: Person, place, time Level of Consciousness: Awake, alert Patient Behavior: disorganized; confrontational Mood Description: Anxious Affect Description: Constricted Ability to Follow Directions: poor Thought Process: disorganized Thought Content: delusional Judgment and Insight: poor Patient Appearance: Disheveled Patient Orientation: Person Level of Consciousness: Awake and Follows Commands Patient Behavior: Wandering and Confused Mood Description: Anxious Affect Description: Constricted Ability to Follow Directions: Poor Speech Pattern: Difficulty Finding Words Diagnostics Vital Signs (24Hr): Vital Signs - 24 hr 10/20/20 16:20 10/20/20 19:13 10/21/20 04:40 Temperature 97.9 F 98.4 F Pulse Rate 73 74 70 Respiratory Rate 18 Blood Pressure 137/64 133/73 132/69 Pulse Oximetry 99 96 Body Mass Index 61.8 Labs Results: 10/20/20 08:12 10/12/20 00:55 Labs: Laboratory Results - last 48 hr 10/20/20 10/20/20 08:12 08:12 WBC 10.9 H RBC 4.33 Hgb 12.0 Hct 36.3 L MCV 83.8 MCH 27.7 MCHC 33.1 RDW 12.5 Plt Count 232 MPV 10.0 Immature Gran % (Auto) 0.6 H Neut % (Auto) 63.2 Lymph % (Auto) 24.8 [place] % (Auto) 9.9 Eos % (Auto) 1.1 Baso % (Auto) 0.4 Lymph # (Auto) 2.7 [place] # (Auto) 1.1 Eos # (Auto) 0.1 Baso # (Auto) 0.0 Abs Immat Gran (auto) 0.07 H Absolute Neuts (auto) 6.9 Absolute Nucleated RBC 0.000 Nucleated RBC % (auto) 0.0 Total Bilirubin 0.8 Direct Bilirubin 0.2 AST 30 ALT 47 H Alkaline Phosphatase 70 Total Protein 7.1 Albumin 4.3 Valproic Acid 30.2 L Imaging Radiology Impressions: ITS Impressions Chest X-Ray 10/12/20 01:44 IMPRESSION: No evidence for acute disease. Head CT 10/12/20 19:11 IMPRESSION: No acute intracranial pathology. Medications Medications Current Medications Generic Name Dose Route Start Last Admin Trade Name Freq PRN Reason Stop Dose Admin Acetaminophen 650 mg 10/14/20 22:36 Acetaminophen 325 Mg Tablet PO Q6H PRN Headache/Pain Mild Scale (1-3) Al Hydroxide/Mg Hydroxide 30 ml 10/14/20 22:36 Magnesium Hydrox/Alum Hydrox 30 Ml Oral.Susp PO Q6H PRN Heartburn/Nausea Atenolol 50 mg 10/12/20 09:00 10/20/20 08:16 Atenolol 50 Mg Tablet PO 50 mg DAILY INOCENCIO Administration Protocol Benztropine Mesylate 1 mg 10/16/20 15:48 Benztropine Mesylate 0.5 Mg Tablet PO BID PRN Extrapyramidal Effects Chlorpromazine HCl 50 mg 10/16/20 15:50 10/21/20 02:33 Chlorpromazine Hcl 25 Mg Tablet PO 50 mg Q6H PRN Administration agitation Divalproex Sodium 1,000 mg 10/18/20 09:00 10/20/20 08:16 Divalproex Sodium Sprinkles 125 Mg Cap.Spr PO 1,000 mg DAILY INOCENCIO Administration Hydrochlorothiazide 25 mg 10/12/20 09:00 10/20/20 08:17 Hydrochlorothiazide 25 Mg Tablet PO 25 mg DAILY INOCENCIO Administration Protocol Hydroxyzine HCl 25 mg 10/14/20 22:36 10/21/20 02:33 Hydroxyzine Hcl 25 Mg Tablet PO 25 mg Q4H PRN Administration mild Anxiety Magnesium Hydroxide 30 ml 10/14/20 22:36 Milk Of Magnesia 30 Ml Oral.Susp PO DAILY PRN Constipation Nicotine Polacrilex 4 mg 10/14/20 22:36 Nicotine Polacrilex 2 Mg Gum BUCCAL Q2H PRN Nicotine Cravings Risperidone 2 mg 10/16/20 21:00 10/20/20 21:01 Risperidone 2 Mg Tablet PO Not Given BID INOCENCIO Trazodone HCl 50 mg 10/14/20 22:36 Trazodone Hcl 50 Mg Tablet PO BEDTIME PRN Insomnia Trazodone HCl 50 mg 10/16/20 21:00 10/20/20 21:01 Trazodone Hcl 50 Mg Tablet PO Not Given BEDTIME INOCENCIO Allergies Allergies Allergy/AdvReac Type Severity Reaction Status Date / Time kiwi [KIWI] Allergy Mild HIVES Verified 10/01/20 14:49 mold [MOLD EXTRACTS*] Allergy Mild HIVES Verified 10/01/20 14:49 Assessment & Plan Assessment & Plan (1) Psychosis: Status: Acute Code(s): F29 - Unspecified psychosis not due to a substance or known physiological condition Assessment and Plan: 1. Admit to M5 2. Continue Risperidone 2mg po BID. 3. Continue depakote [id number] po daily. (2) Hypertension, essential: Status: Acute Code(s): I10 - Essential (primary) hypertension (3) Factor 5 Leiden mutation, heterozygous: Status: Acute Code(s): D68.51 - Activated protein C resistance Greater than 50% of the session was spent on counseling and/or coordination of care Reason for contiued inpatient stay Substantial Risk for: inability to function
[2020-10-21 11:00] VITALS: BP 131/69; PULSE 86; RESP 18; TEMP 36.6; O2SAT 98
[2020-10-21 13:22] LABS: Influenza A PCR NEGATIVE (Negative); Influenza B PCR NEGATIVE (Negative); Resp Syncy Virus RNA Qual PCR NEGATIVE (Negative); SARS COV2 PCR INHOUSE NEGATIVE (Negative)
[2020-10-21 17:00] VITALS: BP 139/78; PULSE 89; TEMP 36.7
[2020-10-21] MEDS: risperiDONE 2 MG TABLET PO (20:58)
[2020-10-22 04:35] VITALS: BP 129/87; PULSE 96; RESP 18; TEMP 37.2; O2SAT 100
--- NOTE | 2020-10-22 10:54 | HO.PSYCHPN ---
Subjective Subjective Date of Service: 10/22/20 Reason For Visit: Acute Psychosis Interim History: Pt continues to present as labile, disorganized, with combination of paranoid, somatic and grandiose delusions. She is dressed inappropriately with short shirt and shorts. She is making hand gestures and tapping feet, which she explains is the way to protect herself from any danger and also way to communicate with angels. She continues to present somatically preoccupied, in that she thinks she needs medical interventions for factor 5 and needs IV, but yet reports she has no HTN, nor need for HTN medications. She is inconsistent about psychotropic medications. She has very little insight into symptoms and how they are affecting her ability to function. Pt is intrusive to peers, needs to be redirected at which point she can become irritable. Review of Systems Review of Systems Yes all other systems are reviewed and are negative Constitutional: Reports as per HPI and Reports no additional constitutional complaints Eyes: Reports as per HPI and Reports no additional eye complaints Reports system reviewed and no additional complaints, except as documented and Reports as per HPI Cardiovascular: Reports as per HPI and Reports no additional cardiovascular complaints Respiratory: Reports as per HPI and Reports no additional respiratory complaints Gastrointestinal: Reports as per HPI and Reports no additional gastrointestinal complaints Musculoskeletal: Reports no additional musculoskeletal complaints and Reports as per HPI Reports system reviewed and no additional complaints, except as documented and Reports as per HPI Psychiatric: Reports no additional psychiatric complaints Mental Status Exam Mental Status Exam Narrative: Patient Appearance: mildly malodorous, unkempt Patient Orientation: Person, place, time Level of Consciousness: Awake, alert Patient Behavior: disorganized; confrontational Mood Description: Anxious Affect Description: Constricted Ability to Follow Directions: poor Thought Process: disorganized Thought Content: delusional having speciald cortes of being a medium, communicating with angels and having special cortes to protect herself Judgment and Insight: poor Patient Appearance: Disheveled Patient Orientation: Person Level of Consciousness: Awake and Follows Commands Patient Behavior: Wandering and Confused Mood Description: Anxious Affect Description: Constricted Ability to Follow Directions: Poor Speech Pattern: Difficulty Finding Words Diagnostics Vital Signs (24Hr): Vital Signs - 24 hr 10/21/20 11:00 10/21/20 17:00 10/22/20 04:35 Temperature 97.8 F 98.0 F 99.0 F Pulse Rate 86 89 96 Respiratory Rate 18 18 Blood Pressure 131/69 139/78 129/87 Pulse Oximetry 98 100 Body Mass Index 61.8 Labs Results: 10/20/20 08:12 10/12/20 00:55 Labs: Laboratory Results - last 48 hr 10/21/20 12:33 Coronavirus (PCR) NEGATIVE Influenza Type A (PCR) NEGATIVE Influenza Type B (PCR) NEGATIVE RSV RNA Qual (PCR) NEGATIVE Imaging Radiology Impressions: ITS Impressions Chest X-Ray 10/12/20 01:44 IMPRESSION: No evidence for acute disease. Head CT 10/12/20 19:11 IMPRESSION: No acute intracranial pathology. Medications Medications Current Medications Generic Name Dose Route Start Last Admin Trade Name Freq PRN Reason Stop Dose Admin Acetaminophen 650 mg 10/14/20 22:36 Acetaminophen 325 Mg Tablet PO Q6H PRN Headache/Pain Mild Scale (1-3) Al Hydroxide/Mg Hydroxide 30 ml 10/14/20 22:36 Magnesium Hydrox/Alum Hydrox 30 Ml Oral.Susp PO Q6H PRN Heartburn/Nausea Atenolol 50 mg 10/12/20 09:00 10/22/20 08:43 Atenolol 50 Mg Tablet PO Not Given DAILY [facility] Protocol Benztropine Mesylate 1 mg 10/16/20 15:48 Benztropine Mesylate 0.5 Mg Tablet PO BID PRN Extrapyramidal Effects Chlorpromazine HCl 50 mg 10/16/20 15:50 10/21/20 02:33 Chlorpromazine Hcl 25 Mg Tablet PO 50 mg Q6H PRN Administration agitation Divalproex Sodium 1,000 mg 10/18/20 09:00 10/22/20 08:43 Divalproex Sodium Sprinkles 125 Mg Cap.Dr.Spr PO Not Given DAILY INOCENCIO Hydrochlorothiazide 25 mg 10/12/20 09:00 10/22/20 08:43 Hydrochlorothiazide 25 Mg Tablet PO Not Given DAILY [facility] Protocol Hydroxyzine HCl 25 mg 10/14/20 22:36 10/21/20 02:33 Hydroxyzine Hcl 25 Mg Tablet PO 25 mg Q4H PRN Administration mild Anxiety Magnesium Hydroxide 30 ml 10/14/20 22:36 Milk Of Magnesia 30 Ml Oral.Susp PO DAILY PRN Constipation Nicotine Polacrilex 4 mg 10/14/20 22:36 Nicotine Polacrilex 2 Mg Gum BUCCAL Q2H PRN Nicotine Cravings Risperidone 2 mg 10/16/20 21:00 10/22/20 08:42 Risperidone 2 Mg Tablet PO Not Given BID INOCENCIO Trazodone HCl 50 mg 10/14/20 22:36 Trazodone Hcl 50 Mg Tablet PO BEDTIME PRN Insomnia Trazodone HCl 50 mg 10/16/20 21:00 10/21/20 21:03 Trazodone Hcl 50 Mg Tablet PO Not Given BEDTIME INOCENCIO Allergies Allergies Allergy/AdvReac Type Severity Reaction Status Date / Time kiwi [KIWI] Allergy Mild HIVES Verified 10/01/20 14:49 mold [MOLD EXTRACTS*] Allergy Mild HIVES Verified 10/01/20 14:49 Assessment & Plan Assessment & Plan (1) Psychosis: Status: Acute Code(s): F29 - Unspecified psychosis not due to a substance or known physiological condition Assessment and Plan: 1. Admit to M5 2. Continue Risperidone 2mg po BID. 3. Continue depakote [id number] po daily. (2) Hypertension, essential: Status: Acute Code(s): I10 - Essential (primary) hypertension (3) Factor 5 Leiden mutation, heterozygous: Status: Acute Code(s): D68.51 - Activated protein C resistance Greater than 50% of the session was spent on counseling and/or coordination of care Reason for contiued inpatient stay Substantial Risk for: inability to function
[2020-10-22 18:00] VITALS: BP 138/66; PULSE 89; TEMP 36.9
[2020-10-23] MEDS: traZODone HCL 50 MG TABLET PO (01:24)
[2020-10-23] MEDS: hydrOXYzine HCL 25 MG TABLET PO (01:24)
[2020-10-23] MEDS: hydroCHLOROthiazide 25 MG TABLET PO (10:20)
[2020-10-23] MEDS: Divalproex Sodium Sprinkles 125 MG CAP.DR.SPR 1000 MG PO (10:20)
[2020-10-23 10:21] VITALS: BP 145/68; PULSE 86
[2020-10-23] MEDS: atenoloL 50 MG TABLET PO (10:21)
[2020-10-23] MEDS: risperiDONE 2 MG TABLET PO (10:21)
--- NOTE | 2020-10-23 17:11 | HO.PSYCHPN ---
Subjective Subjective Date of Service: 10/24/20 Reason For Visit: Acute Psychosis Interim History: Pt was seen in her room. Her mattressed was on the floor, there was water on bed sheets, food on the floor. When asked pt the reason for mattress on the floor, she responded This is a spiritual enlightenment, I know it. Pt continued to report that is going through spiritual journey, that is opening my eyes. She continues to report that she is able to sense angels presence and is protected by them. She continues to lack insight into symptoms and does not think that she needs any treatment or medication that may interfere with her spiritual journey. She denies SI/HI. Court hearing for civil commitment for involuntary treatment was held- hospital was granted petition to treat Ms. Cantu against her will. Pt did not want to attend hearing, but was asked several times during hearing to join. Review of Systems Review of Systems Yes all other systems are reviewed and are negative Constitutional: Reports as per HPI and Reports no additional constitutional complaints Eyes: Reports as per HPI and Reports no additional eye complaints Reports system reviewed and no additional complaints, except as documented and Reports as per HPI Cardiovascular: Reports as per HPI and Reports no additional cardiovascular complaints Respiratory: Reports as per HPI and Reports no additional respiratory complaints Gastrointestinal: Reports as per HPI and Reports no additional gastrointestinal complaints Musculoskeletal: Reports no additional musculoskeletal complaints and Reports as per HPI Reports system reviewed and no additional complaints, except as documented and Reports as per HPI Psychiatric: Reports no additional psychiatric complaints Mental Status Exam Mental Status Exam Narrative: Patient Appearance: mildly malodorous, unkempt Patient Orientation: Person, place, time Level of Consciousness: Awake, alert Patient Behavior: disorganized; confrontational Mood Description: Anxious Affect Description: Constricted Ability to Follow Directions: poor Thought Process: disorganized Thought Content: delusional having speciald cortes of being a medium, communicating with angels and having special cortes to protect herself Judgment and Insight: poor Patient Appearance: Disheveled Patient Orientation: Person Level of Consciousness: Awake and Follows Commands Patient Behavior: Wandering and Confused Mood Description: Anxious Affect Description: Constricted Ability to Follow Directions: Poor Speech Pattern: Difficulty Finding Words Diagnostics Vital Signs (24Hr): Vital Signs - 24 hr 10/22/20 18:00 10/23/20 10:21 Temperature 98.4 F Pulse Rate 89 86 Blood Pressure 138/66 145/68 H Body Mass Index 61.8 Labs Results: 10/20/20 08:12 10/12/20 00:55 Imaging Radiology Impressions: ITS Impressions Chest X-Ray 10/12/20 01:44 IMPRESSION: No evidence for acute disease. Head CT 10/12/20 19:11 IMPRESSION: No acute intracranial pathology. Medications Medications Current Medications Generic Name Dose Route Start Last Admin Trade Name Freq PRN Reason Stop Dose Admin Acetaminophen 650 mg 10/14/20 22:36 Acetaminophen 325 Mg Tablet PO Q6H PRN Headache/Pain Mild Scale (1-3) Al Hydroxide/Mg Hydroxide 30 ml 10/14/20 22:36 Magnesium Hydrox/Alum Hydrox 30 Ml Oral.Susp PO Q6H PRN Heartburn/Nausea Atenolol 50 mg 10/12/20 09:00 10/23/20 10:21 Atenolol 50 Mg Tablet PO 50 mg DAILY INOCENCIO Administration Protocol Benztropine Mesylate 1 mg 10/23/20 21:00 Benztropine Mesylate 2 Mg/2 Ml Vial IM BID INOCENCIO Divalproex Sodium 1,000 mg 10/18/20 09:00 10/23/20 10:20 Divalproex Sodium Sprinkles 125 Mg Cap.Dr.Spr PO 1,000 mg DAILY INOCENCIO Administration Haloperidol Lactate 5 mg 10/23/20 21:00 Haloperidol Lactate 5 Mg/Ml Vial IM BID INOCENCIO Hydrochlorothiazide 25 mg 10/12/20 09:00 10/23/20 10:20 Hydrochlorothiazide 25 Mg Tablet PO 25 mg DAILY INOCENCIO Administration Protocol Hydroxyzine HCl 25 mg 10/14/20 22:36 10/23/20 01:24 Hydroxyzine Hcl 25 Mg Tablet PO 25 mg Q4H PRN Administration mild Anxiety Magnesium Hydroxide 30 ml 10/14/20 22:36 Milk Of Magnesia 30 Ml Oral.Susp PO DAILY PRN Constipation Nicotine Polacrilex 4 mg 10/14/20 22:36 Nicotine Polacrilex 2 Mg Gum BUCCAL Q2H PRN Nicotine Cravings Risperidone 2 mg 10/16/20 21:00 10/23/20 10:21 Risperidone 2 Mg Tablet PO 2 mg BID INOCENCIO Administration Trazodone HCl 50 mg 10/14/20 22:36 10/23/20 01:24 Trazodone Hcl 50 Mg Tablet PO 50 mg BEDTIME PRN Administration Insomnia Trazodone HCl 50 mg 10/16/20 21:00 10/22/20 20:10 Trazodone Hcl 50 Mg Tablet PO Not Given BEDTIME INOCENCIO Allergies Allergies Allergy/AdvReac Type Severity Reaction Status Date / Time kiwi [KIWI] Allergy Mild HIVES Verified 10/01/20 14:49 mold [MOLD EXTRACTS*] Allergy Mild HIVES Verified 10/01/20 14:49 Assessment & Plan Assessment & Plan (1) Hypertension, essential: Status: Acute Code(s): I10 - Essential (primary) hypertension (2) Factor 5 Leiden mutation, heterozygous: Status: Acute Code(s): D68.51 - Activated protein C resistance (3) Bipolar affective, manic, severe: Status: Acute Code(s): F31.13 - Bipolar disorder, current episode manic without psychotic features, severe Assessment and Plan: 1. Continue Risperidone 2mg po BID 2. Back IM per civil commitment- Give Haldol 5mg IM with cogentin 1mg Im if pt refuses oral risperidone. 3. Continue depakote 1000mg Greater than 50% of the session was spent on counseling and/or coordination of care Reason for contiued inpatient stay Substantial Risk for: inability to function
[2020-10-23 18:00] VITALS: BP 133/76; PULSE 73; TEMP 36.5
[2020-10-23] MEDS: Benztropine Mesylate 2 MG/2 ML VIAL 1 MG IM (20:37)
[2020-10-23] MEDS: Haloperidol Lactate 5 MG/ML VIAL IM (20:39)
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
[2020-10-24 09:01] VITALS: BP 130/73; PULSE 79
[2020-10-24] MEDS: Divalproex Sodium Sprinkles 125 MG CAP.DR.SPR 1000 MG PO (09:01)
[2020-10-24] MEDS: atenoloL 50 MG TABLET PO (09:01)
[2020-10-24] MEDS: risperiDONE 2 MG TABLET PO ×2 (09:01→21:26)
[2020-10-24] MEDS: hydroCHLOROthiazide 25 MG TABLET PO (09:02)
[2020-10-24 18:00] VITALS: BP 148/78; PULSE 82; TEMP 36.6
[2020-10-24] MEDS: traZODone HCL 50 MG TABLET PO (21:26)
[2020-10-25] MEDS: traZODone HCL 50 MG TABLET PO ×2 (02:54→19:52)
[2020-10-25 06:35] VITALS: BP 127/75; PULSE 79; RESP 18; TEMP 36.2; O2SAT 99
[2020-10-25] MEDS: Benztropine Mesylate 2 MG/2 ML VIAL 1 MG IM (09:06)
[2020-10-25] MEDS: Haloperidol Lactate 5 MG/ML VIAL IM (09:07)
[2020-10-25 14:34] VITALS: BP 126/74; PULSE 86
--- NOTE | 2020-10-25 15:42 | HO.PSYCHPN ---
Subjective Subjective Date of Service: 10/25/20 Reason For Visit: Acute Psychosis Subjective Notes: Other (s. 8) Interim History: Pt continues to present as labile. She was quite confused today and she needed a lot of assistance from staff to see her mother who was able to visit. She was very internally preoccupied Medication Compliance: Intermittent (Needs THOMAS) Side effects from medications: No Attending Groups: No Review of Systems Acute medical concerns: No Medical Review of Systems: unchanged Review of Systems Review of Systems Yes all other systems are reviewed and are negative Constitutional: Reports as per HPI and Reports no additional constitutional complaints Eyes: Reports as per HPI and Reports no additional eye complaints Reports system reviewed and no additional complaints, except as documented and Reports as per HPI Cardiovascular: Reports as per HPI and Reports no additional cardiovascular complaints Respiratory: Reports as per HPI and Reports no additional respiratory complaints Gastrointestinal: Reports as per HPI and Reports no additional gastrointestinal complaints Musculoskeletal: Reports no additional musculoskeletal complaints and Reports as per HPI Reports system reviewed and no additional complaints, except as documented and Reports as per HPI Psychiatric: Reports no additional psychiatric complaints Mental Status Exam Mental Status Exam Patient Appearance: Disheveled Patient Orientation: Person Level of Consciousness: Awake and Follows Commands Patient Behavior: Wandering and Confused Mood Description: Constricted and Anxious Affect Description: Constricted and Anxious Ability to Follow Directions: Poor Speech Pattern: Difficulty Finding Words Hallucinations: Auditory Delusions: Paranoid Ideation, Present and Bizarre Thought Content: positive for Thought Blocking, positive for Slowed Thinking, negative for Suicidal Ideation and negative for Homicidal Ideation Judgement: Poor Diagnostics Vital Signs (24Hr): Vital Signs - 24 hr 10/24/20 18:00 10/25/20 06:35 10/25/20 14:34 Temperature 97.9 F 97.2 F Pulse Rate 82 79 86 Respiratory Rate 18 Blood Pressure 148/78 H 127/75 126/74 Pulse Oximetry 99 Body Mass Index 61.8 Labs Results: 10/20/20 08:12 10/12/20 00:55 Imaging Radiology Impressions: ITS Impressions Chest X-Ray 10/12/20 01:44 IMPRESSION: No evidence for acute disease. Head CT 10/12/20 19:11 IMPRESSION: No acute intracranial pathology. Medications Medications Current Medications Generic Name Dose Route Start Last Admin Trade Name Freq PRN Reason Stop Dose Admin Acetaminophen 650 mg 10/14/20 22:36 Acetaminophen 325 Mg Tablet PO Q6H PRN Headache/Pain Mild Scale (1-3) Al Hydroxide/Mg Hydroxide 30 ml 10/14/20 22:36 Magnesium Hydrox/Alum Hydrox 30 Ml Oral.Susp PO Q6H PRN Heartburn/Nausea Atenolol 50 mg 10/12/20 09:00 10/25/20 08:52 Atenolol 50 Mg Tablet PO Not Given DAILY [facility] Protocol Benztropine Mesylate 1 mg 10/23/20 21:00 10/25/20 09:06 Benztropine Mesylate 2 Mg/2 Ml Vial IM 1 mg BID INOCENCIO Administration Divalproex Sodium 1,000 mg 10/18/20 09:00 10/25/20 08:53 Divalproex Sodium Sprinkles 125 Mg Cap.Spr PO Not Given DAILY INOCENCIO Haloperidol Lactate 5 mg 10/23/20 21:00 10/25/20 09:07 Haloperidol Lactate 5 Mg/Ml Vial IM 5 mg BID INOCENCIO Administration Hydrochlorothiazide 25 mg 10/12/20 09:00 10/25/20 08:53 Hydrochlorothiazide 25 Mg Tablet PO Not Given DAILY [facility] Protocol Hydroxyzine HCl 25 mg 10/14/20 22:36 10/23/20 01:24 Hydroxyzine Hcl 25 Mg Tablet PO 25 mg Q4H PRN Administration mild Anxiety Magnesium Hydroxide 30 ml 10/14/20 22:36 Milk Of Magnesia 30 Ml Oral.Susp PO DAILY PRN Constipation Nicotine Polacrilex 4 mg 10/14/20 22:36 Nicotine Polacrilex 2 Mg Gum BUCCAL Q2H PRN Nicotine Cravings Risperidone 2 mg 10/16/20 21:00 10/25/20 08:54 Risperidone 2 Mg Tablet PO Not Given BID INOCENCIO Trazodone HCl 50 mg 10/14/20 22:36 10/25/20 02:54 Trazodone Hcl 50 Mg Tablet PO 50 mg BEDTIME PRN Administration Insomnia Trazodone HCl 50 mg 10/16/20 21:00 10/24/20 21:26 Trazodone Hcl 50 Mg Tablet PO 50 mg BEDTIME INOCENCIO Administration Allergies Allergies Allergy/AdvReac Type Severity Reaction Status Date / Time kiwi [KIWI] Allergy Mild HIVES Verified 10/01/20 14:49 mold [MOLD EXTRACTS*] Allergy Mild HIVES Verified 10/01/20 14:49 Assessment & Plan Assessment & Plan (1) Hypertension, essential: Status: Acute Code(s): I10 - Essential (primary) hypertension (2) Factor 5 Leiden mutation, heterozygous: Status: Acute Code(s): D68.51 - Activated protein C resistance (3) Bipolar affective, manic, severe: Status: Acute Code(s): F31.13 - Bipolar disorder, current episode manic without psychotic features, severe Assessment and Plan: 1. Continue Risperidone 2mg po BID 2. Back IM per civil commitment- Give Haldol 5mg IM with cogentin 1mg Im if pt refuses oral risperidone. 3. Continue depakote 1000mg Greater than 50% of the session was spent on counseling and/or coordination of care Reason for contiued inpatient stay Substantial Risk for: inability to function
[2020-10-25 16:30] VITALS: BP 125/60; PULSE 82; TEMP 37
[2020-10-25] MEDS: risperiDONE 2 MG TABLET PO (19:52)
[2020-10-26 06:35] VITALS: BP 129/84; PULSE 79; RESP 16; TEMP 36.3; O2SAT 96
[2020-10-26] MEDS: Benztropine Mesylate 2 MG/2 ML VIAL 1 MG IM (09:16)
[2020-10-26] MEDS: Haloperidol Lactate 5 MG/ML VIAL IM (09:17)
--- NOTE | 2020-10-26 15:10 | P.PNPSI_ITS ---
Subjective Subjective Date of Service: 10/26/20 Reason For Visit: Acute Psychosis Subjective Notes: Conditional Voluntary Interim History: Pt continues to present as labile. 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 She refused her oral medication today. Medication Compliance: Intermittent Side effects from medications: No Attending Groups: No Review of Systems Acute medical concerns: No Medical Review of Systems: unchanged Review of Systems Review of Systems Yes all other systems are reviewed and are negative Constitutional: Reports as per HPI and Reports no additional constitutional complaints Eyes: Reports as per HPI and Reports no additional eye complaints Reports system reviewed and no additional complaints, except as documented and Reports as per HPI Cardiovascular: Reports as per HPI and Reports no additional cardiovascular complaints Respiratory: Reports as per HPI and Reports no additional respiratory complaints Gastrointestinal: Reports as per HPI and Reports no additional gastrointestinal complaints Musculoskeletal: Reports no additional musculoskeletal complaints and Reports as per HPI Reports system reviewed and no additional complaints, except as documented and Reports as per HPI Psychiatric: Reports no additional psychiatric complaints Mental Status Exam Mental Status Exam Patient Appearance: Disheveled Patient Orientation: Person Level of Consciousness: Awake and Follows Commands Patient Behavior: Wandering and Confused Mood Description: Constricted and Anxious Affect Description: Constricted, Anxious, Labile and Angry Ability to Follow Directions: Poor Speech Pattern: Difficulty Finding Words Hallucinations: None Delusions: Paranoid Ideation and Present Thought Content: negative for Suicidal Ideation and negative for Homicidal Ideation Diagnostics Vital Signs (24Hr): Vital Signs - 24 hr 10/25/20 16:30 10/26/20 06:35 Temperature 98.6 F 97.4 F Pulse Rate 82 79 Respiratory Rate 16 Blood Pressure 125/60 129/84 Pulse Oximetry 96 Body Mass Index 61.8 Labs Results: 10/20/20 08:12 10/12/20 00:55 Imaging Radiology Impressions: ITS Impressions Chest X-Ray 10/12/20 01:44 IMPRESSION: No evidence for acute disease. Head CT 10/12/20 19:11 IMPRESSION: No acute intracranial pathology. Medications Medications Current Medications Generic Name Dose Route Start Last Admin Trade Name Freq PRN Reason Stop Dose Admin Acetaminophen 650 mg 10/14/20 22:36 Acetaminophen 325 Mg Tablet PO Q6H PRN Headache/Pain Mild Scale (1-3) Al Hydroxide/Mg Hydroxide 30 ml 10/14/20 22:36 Magnesium Hydrox/Alum Hydrox 30 Ml Oral.Susp PO Q6H PRN Heartburn/Nausea Atenolol 50 mg 10/12/20 09:00 10/26/20 09:16 Atenolol 50 Mg Tablet PO Not Given DAILY [facility] Protocol Benztropine Mesylate 1 mg 10/23/20 21:00 10/26/20 09:16 Benztropine Mesylate 2 Mg/2 Ml Vial IM 1 mg BID INOCENCIO Administration Divalproex Sodium 1,000 mg 10/18/20 09:00 10/26/20 09:17 Divalproex Sodium Sprinkles 125 Mg Cap.DrJcSpr PO Not Given DAILY INOCENCIO Haloperidol Lactate 5 mg 10/23/20 21:00 10/26/20 09:17 Haloperidol Lactate 5 Mg/Ml Vial IM 5 mg BID INOCENCIO Administration Hydrochlorothiazide 25 mg 10/12/20 09:00 10/26/20 09:17 Hydrochlorothiazide 25 Mg Tablet PO Not Given DAILY [facility] Protocol Hydroxyzine HCl 25 mg 10/14/20 22:36 10/23/20 01:24 Hydroxyzine Hcl 25 Mg Tablet PO 25 mg Q4H PRN Administration mild Anxiety Magnesium Hydroxide 30 ml 10/14/20 22:36 Milk Of Magnesia 30 Ml Oral.Susp PO DAILY PRN Constipation Nicotine Polacrilex 4 mg 10/14/20 22:36 Nicotine Polacrilex 2 Mg Gum BUCCAL Q2H PRN Nicotine Cravings Risperidone 2 mg 10/16/20 21:00 10/26/20 09:17 Risperidone 2 Mg Tablet PO Not Given BID INOCENCIO Trazodone HCl 50 mg 10/14/20 22:36 10/25/20 02:54 Trazodone Hcl 50 Mg Tablet PO 50 mg BEDTIME PRN Administration Insomnia Trazodone HCl 50 mg 10/16/20 21:00 10/25/20 19:52 Trazodone Hcl 50 Mg Tablet PO 50 mg BEDTIME INOCENCIO Administration Allergies Allergies Allergy/AdvReac Type Severity Reaction Status Date / Time kiwi [KIWI] Allergy Mild HIVES Verified 10/01/20 14:49 mold [MOLD EXTRACTS*] Allergy Mild HIVES Verified 10/01/20 14:49 Assessment & Plan Assessment & Plan (1) Hypertension, essential: Status: Acute Code(s): I10 - Essential (primary) hypertension (2) Factor 5 Leiden mutation, heterozygous: Status: Acute Code(s): D68.51 - Activated protein C resistance (3) Bipolar affective, manic, severe: Status: Acute Code(s): F31.13 - Bipolar disorder, current episode manic without psychotic features, severe Assessment and Plan: 1. Continue Risperidone 2mg po BID 2. Back IM per civil commitment- Give Haldol 5mg IM with cogentin 1mg Im if pt refuses oral risperidone. 3. Continue depakote 1000mg No change to above plan Greater than 50% of the session was spent on counseling and/or coordination of care Patient educated on: diagnosis and medication risk/benefits Informed Consent: does not understand Reason for contiued inpatient stay Substantial Risk for: inability to function
[2020-10-26 16:40] VITALS: BP 128/73; PULSE 85; TEMP 36.9
[2020-10-26] MEDS: traZODone HCL 50 MG TABLET PO (20:01)
[2020-10-26] MEDS: risperiDONE 2 MG TABLET PO (20:01)
[2020-10-27] MEDS: traZODone HCL 50 MG TABLET PO ×2 (00:35→20:17)
--- NOTE | 2020-10-27 05:11 | PC.NURSE ---
Addendum entered by Darrell Hood 10/27/20 05:34: 0515: I need a helicopter for my blood clot. Or a plane. Pt engaging in ritualistic behavior: foot tappin and finger tapping while self-dialoguing. Original Note: 23:30- pt observed to be in the kitchen area, self-dialoguing/ responding to internal stimuli. 00:20- pt reports having a blood clot: My medium-ship gift told me I have the blood clot and all the angels. Left calf assessed with no sign of a blood clot. Pt received medication for sleep and vital signs assessed to be stable. 01:00- Pt refused to go to sleep and slid out of the bed and refused to stand. The blood clot is traveling. I need vital signs. Pt rolled while on the floor out to the hallway and eventually stood without assistance. Pt ate a snack and continued to self-dialogue before going to bed. Gait was steady when walking back to her bedroom and asleep by 0315. Awake at 0515.
[2020-10-27 06:00] VITALS: BP 154/91; PULSE 100; RESP 20; TEMP 36.4; O2SAT 100
[2020-10-27 09:35] VITALS: BP 154/91; PULSE 100
[2020-10-27] MEDS: hydroCHLOROthiazide 25 MG TABLET PO (09:35)
[2020-10-27] MEDS: atenoloL 50 MG TABLET PO (09:35)
[2020-10-27] MEDS: Benztropine Mesylate 2 MG/2 ML VIAL 1 MG IM (09:52)
[2020-10-27] MEDS: Haloperidol Lactate 5 MG/ML VIAL IM (09:52)
--- NOTE | 2020-10-27 16:52 | HO.PSYCHPN ---
Subjective Subjective Date of Service: 10/27/20 Reason For Visit: Acute Psychosis Interim History: Pt is in her room, she reports that she can't sleep because she sees angels during the day and at night. She continues to report that she is a medium, able to connect with those who . She has not been sleeping well, although appears very tired today. She thinks being here is a conspiracy due to her cortes. She denies SI/HI. She is inconsistently taking medications, requiring Haldol IM. Review of Systems Review of Systems Yes all other systems are reviewed and are negative Constitutional: Reports as per HPI and Reports no additional constitutional complaints Eyes: Reports as per HPI and Reports no additional eye complaints Reports system reviewed and no additional complaints, except as documented and Reports as per HPI Cardiovascular: Reports as per HPI and Reports no additional cardiovascular complaints Respiratory: Reports as per HPI and Reports no additional respiratory complaints Gastrointestinal: Reports as per HPI and Reports no additional gastrointestinal complaints Musculoskeletal: Reports no additional musculoskeletal complaints and Reports as per HPI Reports system reviewed and no additional complaints, except as documented and Reports as per HPI Psychiatric: Reports no additional psychiatric complaints Mental Status Exam Mental Status Exam Narrative: Patient Appearance: mildly malodorous, unkempt Patient Orientation: Person, place, time Level of Consciousness: Awake, alert Patient Behavior: disorganized; confrontational Mood Description: Anxious Affect Description: Constricted Ability to Follow Directions: poor Thought Process: disorganized Thought Content: delusional having speciald cortes of being a medium, communicating with angels and having special cortes to protect herself Judgment and Insight: poor Patient Appearance: Disheveled Patient Orientation: Person Level of Consciousness: Awake and Follows Commands Patient Behavior: Wandering and Confused Mood Description: Constricted and Anxious Affect Description: Constricted, Anxious, Labile and Angry Ability to Follow Directions: Poor Speech Pattern: Difficulty Finding Words Diagnostics Vital Signs (24Hr): Vital Signs - 24 hr 10/27/20 06:00 10/27/20 09:35 Temperature 97.5 F Pulse Rate 100 100 Respiratory Rate 20 Blood Pressure 154/91 H 154/91 H Pulse Oximetry 100 Body Mass Index 61.8 Labs Results: 10/20/20 08:12 10/12/20 00:55 Imaging Radiology Impressions: ITS Impressions Chest X-Ray 10/12/20 01:44 IMPRESSION: No evidence for acute disease. Head CT 10/12/20 19:11 IMPRESSION: No acute intracranial pathology. Medications Medications Current Medications Generic Name Dose Route Start Last Admin Trade Name Freq PRN Reason Stop Dose Admin Acetaminophen 650 mg 10/14/20 22:36 Acetaminophen 325 Mg Tablet PO Q6H PRN Headache/Pain Mild Scale (1-3) Al Hydroxide/Mg Hydroxide 30 ml 10/14/20 22:36 Magnesium Hydrox/Alum Hydrox 30 Ml Oral.Susp PO Q6H PRN Heartburn/Nausea Atenolol 50 mg 10/12/20 09:00 10/27/20 09:35 Atenolol 50 Mg Tablet PO 50 mg DAILY INOCENCIO Administration Protocol Benztropine Mesylate 1 mg 10/23/20 21:00 10/27/20 09:52 Benztropine Mesylate 2 Mg/2 Ml Vial IM 1 mg BID INOCENCIO Administration Divalproex Sodium 1,000 mg 10/18/20 09:00 10/27/20 09:49 Divalproex Sodium Sprinkles 125 Mg Cap. PO Not Given DAILY INOCENCIO Haloperidol Lactate 5 mg 10/23/20 21:00 10/27/20 09:52 Haloperidol Lactate 5 Mg/Ml Vial IM 5 mg BID INOCENCIO Administration Hydrochlorothiazide 25 mg 10/12/20 09:00 10/27/20 09:35 Hydrochlorothiazide 25 Mg Tablet PO 25 mg DAILY INOCENCIO Administration Protocol Hydroxyzine HCl 25 mg 10/14/20 22:36 10/23/20 01:24 Hydroxyzine Hcl 25 Mg Tablet PO 25 mg Q4H PRN Administration mild Anxiety Magnesium Hydroxide 30 ml 10/14/20 22:36 Milk Of Magnesia 30 Ml Oral.Susp PO DAILY PRN Constipation Nicotine Polacrilex 4 mg 10/14/20 22:36 Nicotine Polacrilex 2 Mg Gum BUCCAL Q2H PRN Nicotine Cravings Risperidone 2 mg 10/16/20 21:00 10/27/20 09:49 Risperidone 2 Mg Tablet PO Not Given BID INOCENCIO Trazodone HCl 50 mg 10/14/20 22:36 10/27/20 00:35 Trazodone Hcl 50 Mg Tablet PO 50 mg BEDTIME PRN Administration Insomnia Trazodone HCl 50 mg 10/16/20 21:00 10/26/20 20:01 Trazodone Hcl 50 Mg Tablet PO 50 mg BEDTIME INOCENCIO Administration Allergies Allergies Allergy/AdvReac Type Severity Reaction Status Date / Time kiwi [KIWI] Allergy Mild HIVES Verified 10/01/20 14:49 mold [MOLD EXTRACTS*] Allergy Mild HIVES Verified 10/01/20 14:49 Assessment & Plan Assessment & Plan (1) Hypertension, essential: Status: Acute Code(s): I10 - Essential (primary) hypertension Assessment and Plan: 1. continue current medications (2) Factor 5 Leiden mutation, heterozygous: Status: Acute Code(s): D68.51 - Activated protein C resistance (3) Bipolar affective, manic, severe: Status: Acute Code(s): F31.13 - Bipolar disorder, current episode manic without psychotic features, severe Assessment and Plan: 1. Continue Risperidone 2mg po BID 2. Back IM per civil commitment- Give Haldol 5mg IM with cogentin 1mg Im if pt refuses oral risperidone. 3. Continue depakote 1000mg No change to above plan Greater than 50% of the session was spent on counseling and/or coordination of care Reason for contiued inpatient stay Substantial Risk for: inability to function
[2020-10-27 18:00] VITALS: BP 139/78; PULSE 76; TEMP 36.4
[2020-10-27] MEDS: risperiDONE 2 MG TABLET PO (20:17)
[2020-10-28 06:40] VITALS: PULSE 71; RESP 18; TEMP 36.3; O2SAT 100
[2020-10-28] MEDS: hydroCHLOROthiazide 25 MG TABLET PO (09:15)
[2020-10-28 09:16] VITALS: BP 126/67; PULSE 98
[2020-10-28] MEDS: atenoloL 50 MG TABLET PO (09:16)
[2020-10-28] MEDS: Benztropine Mesylate 2 MG/2 ML VIAL 1 MG IM (09:24)
[2020-10-28] MEDS: Haloperidol Lactate 5 MG/ML VIAL IM (09:25)
--- NOTE | 2020-10-28 17:05 | HO.PSYCHPN ---
Subjective Subjective Date of Service: 10/28/20 Reason For Visit: Acute Psychosis Interim History: Pt continues to report that she is a medium, seeing angels. When asked about how she is feeling she states excellent. She also reports she slept great, when nursing reports she was up most of the nights. She has been visible in the unit but does not participate in groups. She continues to show very little insight into reason for admission. She is also suspicious about staff and states that she may have been inappropriately touch by a counselor. She continues to decline taking depakote and at times risperidone requiring IM back of haldol. Review of Systems Review of Systems Yes all other systems are reviewed and are negative Constitutional: Reports as per HPI and Reports no additional constitutional complaints Eyes: Reports as per HPI and Reports no additional eye complaints Reports system reviewed and no additional complaints, except as documented and Reports as per HPI Cardiovascular: Reports as per HPI and Reports no additional cardiovascular complaints Respiratory: Reports as per HPI and Reports no additional respiratory complaints Gastrointestinal: Reports as per HPI and Reports no additional gastrointestinal complaints Musculoskeletal: Reports no additional musculoskeletal complaints and Reports as per HPI Reports system reviewed and no additional complaints, except as documented and Reports as per HPI Psychiatric: Reports no additional psychiatric complaints Mental Status Exam Mental Status Exam Narrative: Patient Appearance: mildly malodorous, unkempt Patient Orientation: Person, place, time Level of Consciousness: Awake, alert Patient Behavior: disorganized; confrontational Mood Description: Anxious Affect Description: Constricted Ability to Follow Directions: poor Thought Process: disorganized Thought Content: delusional having speciald cortes of being a medium, communicating with angels and having special cortes to protect herself Judgment and Insight: poor Patient Appearance: Disheveled Patient Orientation: Person Level of Consciousness: Awake and Follows Commands Patient Behavior: Wandering and Confused Mood Description: Constricted and Anxious Affect Description: Constricted, Anxious, Labile and Angry Ability to Follow Directions: Poor Speech Pattern: Difficulty Finding Words Diagnostics Vital Signs (24Hr): Vital Signs - 24 hr 10/27/20 18:00 10/28/20 06:40 10/28/20 09:16 Temperature 97.5 F 97.4 F Pulse Rate 76 71 98 Respiratory Rate 18 Blood Pressure 139/78 126/67 Pulse Oximetry 100 Body Mass Index 61.8 Labs Results: 10/20/20 08:12 10/12/20 00:55 Imaging Radiology Impressions: ITS Impressions Chest X-Ray 10/12/20 01:44 IMPRESSION: No evidence for acute disease. Head CT 10/12/20 19:11 IMPRESSION: No acute intracranial pathology. Medications Medications Current Medications Generic Name Dose Route Start Last Admin Trade Name Freq PRN Reason Stop Dose Admin Acetaminophen 650 mg 10/14/20 22:36 Acetaminophen 325 Mg Tablet PO Q6H PRN Headache/Pain Mild Scale (1-3) Al Hydroxide/Mg Hydroxide 30 ml 10/14/20 22:36 Magnesium Hydrox/Alum Hydrox 30 Ml Oral.Susp PO Q6H PRN Heartburn/Nausea Atenolol 50 mg 10/12/20 09:00 10/28/20 09:16 Atenolol 50 Mg Tablet PO 50 mg DAILY [facility] Administration Protocol Divalproex Sodium 1,000 mg 10/18/20 09:00 10/28/20 09:25 Divalproex Sodium Sprinkles 125 Mg Cap.Dr.Spr PO Not Given DAILY [facility] Haloperidol Lactate 5 mg 10/23/20 21:00 10/28/20 09:25 Haloperidol Lactate 5 Mg/Ml Vial IM 5 mg BID [facility] Administration Hydrochlorothiazide 25 mg 10/12/20 09:00 10/28/20 09:15 Hydrochlorothiazide 25 Mg Tablet PO 25 mg DAILY [facility] Administration Protocol Hydroxyzine HCl 25 mg 10/14/20 22:36 10/23/20 01:24 Hydroxyzine Hcl 25 Mg Tablet PO 25 mg Q4H PRN Administration mild Anxiety Lorazepam 1.5 mg 10/28/20 21:00 Lorazepam 2 Mg/Ml Vial IM BID [facility] Magnesium Hydroxide 30 ml 10/14/20 22:36 Milk Of Magnesia 30 Ml Oral.Susp PO DAILY PRN Constipation Nicotine Polacrilex 4 mg 10/14/20 22:36 Nicotine Polacrilex 2 Mg Gum BUCCAL Q2H PRN Nicotine Cravings Risperidone 2 mg 10/16/20 21:00 10/28/20 09:25 Risperidone 2 Mg Tablet PO Not Given BID [facility] Trazodone HCl 50 mg 10/14/20 22:36 10/27/20 00:35 Trazodone Hcl 50 Mg Tablet PO 50 mg BEDTIME PRN Administration Insomnia Trazodone HCl 50 mg 10/16/20 21:00 10/27/20 20:17 Trazodone Hcl 50 Mg Tablet PO 50 mg BEDTIME [facility] Administration Allergies Allergies Allergy/AdvReac Type Severity Reaction Status Date / Time kiwi [KIWI] Allergy Mild HIVES Verified 10/01/20 14:49 mold [MOLD EXTRACTS*] Allergy Mild HIVES Verified 10/01/20 14:49 Assessment & Plan Assessment & Plan (1) Hypertension, essential: Status: Acute Code(s): I10 - Essential (primary) hypertension Assessment and Plan: 1. continue current medications (2) Factor 5 Leiden mutation, heterozygous: Status: Acute Code(s): D68.51 - Activated protein C resistance (3) Bipolar affective, manic, severe: Status: Acute Code(s): F31.13 - Bipolar disorder, current episode manic without psychotic features, severe Assessment and Plan: 1. Continue Risperidone 2mg po BID 2. Back IM per civil commitment- Give Haldol 5mg IM with Ativan 1.5mg Im if pt refuses oral risperidone. 3. Continue depakote 1000mg No change to above plan Greater than 50% of the session was spent on counseling and/or coordination of care Reason for contiued inpatient stay Substantial Risk for: inability to function
[2020-10-28 18:00] VITALS: BP 118/58; PULSE 68; TEMP 20
[2020-10-28] MEDS: risperiDONE 2 MG TABLET PO (20:16)
[2020-10-28] MEDS: traZODone HCL 100 MG TABLET PO (20:16)
[2020-10-29 03:50] VITALS: BP 137/81; PULSE 73; RESP 18; TEMP 36.3; O2SAT 99
[2020-10-29 08:14] LABS: MANUAL DIFF FLAG NO
[2020-10-29 08:18] LABS: Basophils Percent Auto 0.4 % (0-2); Eosinophils Absolute Auto 0.1 X10*3/uL (0.0-0.4); Eosinophils Percent Auto 1.3 % (0-4); Hematocrit 35.6 % (37-47); Hemoglobin 11.8 g/dl (12.0-16.0); Imm Gran Abs Auto 0.03 X10*3/uL (0.00-0.03); Imm Gran Pct Auto 0.3 % (0.0-0.4); Lymphocytes Absolute Auto 2.4 X10*3/uL (1.2-4.9); Lymphocytes Percent Auto 25.6 % (20-40); Mean Corpuscular HGB Conc 33.1 g/dl (31.0-35.0); Mean Corpuscular Hemoglobin 28.2 pg (27.0-33.0); Mean Platelet Volume 10.3 fL (9.4-12.3); Monocytes Absolute Auto 0.9 X10*3/uL (0.1-1.2); Monocytes Percent Auto 9.4 % (2-11); Neutrophils Absolute Auto 5.9 X10*3/uL (2.0-8.3); Platelet Count 185 X10*3/uL (160-400); Red Blood Count 4.19 X10*6/uL (4.20-5.50); Red Cell Distribution Width 12.9 % (11.0-16.0); White Blood Count 9.4 X10*3/uL (4.8-10.8)
[2020-10-29 08:30] VITALS: BP 137/81; PULSE 78
[2020-10-29] MEDS: hydroCHLOROthiazide 25 MG TABLET PO (08:30)
[2020-10-29] MEDS: risperiDONE 2 MG TABLET PO ×2 (08:30→20:38)
[2020-10-29] MEDS: Divalproex Sodium Sprinkles 125 MG CAP.DR.SPR 1000 MG PO (08:30)
[2020-10-29] MEDS: atenoloL 50 MG TABLET PO (08:30)
[2020-10-29 09:11] LABS: Valproate < 2.0 mcg/mL (50.0-100.0)
[2020-10-29 12:15] LABS: MANUAL DIFF FLAG NO
[2020-10-29 12:21] LABS: Basophils Percent Auto 0.4 % (0-2); Eosinophils Absolute Auto 0.1 X10*3/uL (0.0-0.4); Eosinophils Percent Auto 0.8 % (0-4); Hematocrit 35.2 % (37-47); Hemoglobin 11.5 g/dl (12.0-16.0); Imm Gran Abs Auto 0.03 X10*3/uL (0.00-0.03); Imm Gran Pct Auto 0.3 % (0.0-0.4); Lymphocytes Absolute Auto 2.3 X10*3/uL (1.2-4.9); Lymphocytes Percent Auto 22.9 % (20-40); Mean Corpuscular HGB Conc 32.7 g/dl (31.0-35.0); Mean Corpuscular Volume 85.6 fL (80-98); Mean Platelet Volume 10.4 fL (9.4-12.3); Monocytes Absolute Auto 0.8 X10*3/uL (0.1-1.2); Monocytes Percent Auto 8.3 % (2-11); Neutrophils Absolute Auto 6.7 X10*3/uL (2.0-8.3); Neutrophils Percent Auto 67.3 % (45-73); Platelet Count 192 X10*3/uL (160-400); Red Blood Count 4.11 X10*6/uL (4.20-5.50); Red Cell Distribution Width 12.9 % (11.0-16.0); White Blood Count 9.9 X10*3/uL (4.8-10.8)
[2020-10-29 12:31] LABS: D Dimer < 200 NG/ML
[2020-10-29 12:57] LABS: Alanine Aminotransferase 55 U/L (0-31); Albumin Level 4.2 g/dL (3.5-5.0); Alkaline Phosphatase 65 U/L (39-117); Anion Gap 15 (12-20); Aspartate Amino Transferase 32 U/L (5-31); Bilirubin Total 0.4 mg/dL (0.0-1.0); Blood Urea Nitrogen 15 mg/dL (9-16); Calcium 9.2 mg/dL (8.4-10.2); Carbon Dioxide 29 mmol/L (22-29); Chloride 101 mmol/L (96-108); Creatinine Clr Calc Pharmacy 207.7; Estimated Glomerular Filt Rate > 60; Glucose Random 99 mg/dL (60-115); Potassium 3.9 mmol/L (3.3-5.1); Sodium 141 mmol/L (135-145); Total Protein 6.8 g/dL (6.5-8.0)
--- NOTE | 2020-10-29 13:19 | HO.PSYCHPN ---
Subjective Subjective Date of Service: 10/29/20 Reason For Visit: Acute Psychosis Interim History: Pt appears slightly more coherent in that she reports that she has pain on left calf- which is warmth and pt reports painful when walking and when touched. Right leg without pain or warmth. Pt reports this started today. Pt does have hx of factor 5 leiden. Preliminary labs showing: d dimmer <200, slightly elevated AST(32)/ALT(55), normal alkaline phosphatase (65), chemistry wnl. Pending venous doppler. Pt continues to report that she is a medium and that is not a crime. She asks this underwriter solicitation director if she is taking HTN meds that her PCP recently prescribed for her. Pt informed that these two medication has been continued on admission but she has declined at times. Pt appears slightly more aware of surrounding and reality testing, but continues to present grossly delusional and disorganized. She denies SI/HI. She ahs attend some groups. Valproic levels obtained today- pt has declined depakote for several days and levels were less than 2L. may discontinue mood stabilizer if pt stabilizes on antipsychotic treatment alone. Review of Systems Review of Systems Yes all other systems are reviewed and are negative Constitutional: Reports as per HPI and Reports no additional constitutional complaints Eyes: Reports as per HPI and Reports no additional eye complaints Reports system reviewed and no additional complaints, except as documented and Reports as per HPI Cardiovascular: Reports as per HPI and Reports no additional cardiovascular complaints Respiratory: Reports as per HPI and Reports no additional respiratory complaints Gastrointestinal: Reports as per HPI and Reports no additional gastrointestinal complaints Musculoskeletal: Reports no additional musculoskeletal complaints and Reports as per HPI Reports system reviewed and no additional complaints, except as documented and Reports as per HPI Psychiatric: Reports no additional psychiatric complaints Mental Status Exam Mental Status Exam Narrative: Patient Appearance: mildly malodorous, unkempt Patient Orientation: Person, place, time Level of Consciousness: Awake, alert Patient Behavior: disorganized; confrontational Mood Description: Anxious Affect Description: Constricted Ability to Follow Directions: poor Thought Process: disorganized Thought Content: delusional having speciald cortes of being a medium, communicating with angels and having special cortes to protect herself Judgment and Insight: poor Patient Appearance: Disheveled Patient Orientation: Person Level of Consciousness: Awake and Follows Commands Patient Behavior: Wandering and Confused Mood Description: Constricted and Anxious Affect Description: Constricted, Anxious, Labile and Angry Ability to Follow Directions: Poor Speech Pattern: Difficulty Finding Words Diagnostics Vital Signs (24Hr): Vital Signs - 24 hr 10/28/20 18:00 10/29/20 03:50 10/29/20 08:30 Temperature 68 F L 97.3 F Pulse Rate 68 73 78 Respiratory Rate 18 Blood Pressure 118/58 L 137/81 137/81 Pulse Oximetry 99 Body Mass Index 61.8 Labs Results: 10/29/20 12:09 10/29/20 12:09 Labs: Laboratory Results - last 48 hr 10/29/20 10/29/20 10/29/20 07:46 07:46 12:09 WBC 9.4 RBC 4.19 L Hgb 11.8 L Hct 35.6 L MCV 85.0 MCH 28.2 MCHC 33.1 RDW 12.9 Plt Count 185 MPV 10.3 Immature Gran % (Auto) 0.3 Neut % (Auto) 63.0 Lymph % (Auto) 25.6 [place] % (Auto) 9.4 Eos % (Auto) 1.3 Baso % (Auto) 0.4 Lymph # (Auto) 2.4 [place] # (Auto) 0.9 Eos # (Auto) 0.1 Baso # (Auto) 0.0 Abs Immat Gran (auto) 0.03 Absolute Neuts (auto) 5.9 Absolute Nucleated RBC 0.000 Nucleated RBC % (auto) 0.0 D-Dimer < 200 Sodium Potassium Chloride Carbon Dioxide Anion Gap BUN Creatinine Estim Creat Clear Calc Estimated GFR Random Glucose Calcium Total Bilirubin AST ALT Alkaline Phosphatase Total Protein Albumin Valproic Acid < 2.0 L 10/29/20 10/29/20 12:09 12:09 WBC 9.9 RBC 4.11 L Hgb 11.5 L Hct 35.2 L MCV 85.6 MCH 28.0 MCHC 32.7 RDW 12.9 Plt Count 192 MPV 10.4 Immature Gran % (Auto) 0.3 Neut % (Auto) 67.3 Lymph % (Auto) 22.9 [place] % (Auto) 8.3 Eos % (Auto) 0.8 Baso % (Auto) 0.4 Lymph # (Auto) 2.3 [place] # (Auto) 0.8 Eos # (Auto) 0.1 Baso # (Auto) 0.0 Abs Immat Gran (auto) 0.03 Absolute Neuts (auto) 6.7 Absolute Nucleated RBC 0.000 Nucleated RBC % (auto) 0.0 D-Dimer Sodium 141 Potassium 3.9 Chloride 101 Carbon Dioxide 29 Anion Gap 15 BUN 15 Creatinine 0.73 Estim Creat Clear Calc 207.7 Estimated GFR > 60 Random Glucose 99 Calcium 9.2 Total Bilirubin 0.4 AST 32 H ALT 55 H Alkaline Phosphatase 65 Total Protein 6.8 Albumin 4.2 Valproic Acid Imaging Radiology Impressions: ITS Impressions Chest X-Ray 10/12/20 01:44 IMPRESSION: No evidence for acute disease. Head CT 10/12/20 19:11 IMPRESSION: No acute intracranial pathology. Medications Medications Current Medications Generic Name Dose Route Start Last Admin Trade Name Freq PRN Reason Stop Dose Admin Acetaminophen 650 mg 10/14/20 22:36 Acetaminophen 325 Mg Tablet PO Q6H PRN Headache/Pain Mild Scale (1-3) Al Hydroxide/Mg Hydroxide 30 ml 10/14/20 22:36 Magnesium Hydrox/Alum Hydrox 30 Ml Oral.Susp PO Q6H PRN Heartburn/Nausea Atenolol 50 mg 10/12/20 09:00 10/29/20 08:30 Atenolol 50 Mg Tablet PO 50 mg DAILY [facility] Administration Protocol Divalproex Sodium 1,000 mg 10/18/20 09:00 10/29/20 08:30 Divalproex Sodium Sprinkles 125 Mg Cap.DrJcSpr PO 1,000 mg DAILY [facility] Administration Haloperidol Lactate 5 mg 10/23/20 21:00 10/28/20 20:41 Haloperidol Lactate 5 Mg/Ml Vial IM Not Given BID [facility] Hydrochlorothiazide 25 mg 10/12/20 09:00 10/29/20 08:30 Hydrochlorothiazide 25 Mg Tablet PO 25 mg DAILY [facility] Administration Protocol Hydroxyzine HCl 25 mg 10/14/20 22:36 10/23/20 01:24 Hydroxyzine Hcl 25 Mg Tablet PO 25 mg Q4H PRN Administration mild Anxiety Lorazepam 1.5 mg 10/28/20 21:00 10/28/20 20:41 Lorazepam 2 Mg/Ml Vial IM Not Given BID [facility] Magnesium Hydroxide 30 ml 10/14/20 22:36 Milk Of Magnesia 30 Ml Oral.Susp PO DAILY PRN Constipation Nicotine Polacrilex 4 mg 10/14/20 22:36 Nicotine Polacrilex 2 Mg Gum BUCCAL Q2H PRN Nicotine Cravings Risperidone 2 mg 10/16/20 21:00 10/29/20 08:30 Risperidone 2 Mg Tablet PO 2 mg BID [facility] Administration Trazodone HCl 50 mg 10/14/20 22:36 10/27/20 00:35 Trazodone Hcl 50 Mg Tablet PO 50 mg BEDTIME PRN Administration Insomnia Trazodone HCl 100 mg 10/28/20 21:00 10/28/20 20:16 Trazodone Hcl 100 Mg Tablet PO 100 mg BEDTIME [facility] Administration Allergies Allergies Allergy/AdvReac Type Severity Reaction Status Date / Time kiwi [KIWI] Allergy Mild HIVES Verified 10/01/20 14:49 mold [MOLD EXTRACTS*] Allergy Mild HIVES Verified 10/01/20 14:49 Assessment & Plan Assessment & Plan (1) Hypertension, essential: Status: Acute Code(s): I10 - Essential (primary) hypertension Assessment and Plan: 1. continue current medications (2) Factor 5 Leiden mutation, heterozygous: Status: Acute Code(s): D68.51 - Activated protein C resistance (3) Bipolar affective, manic, severe: Status: Acute Code(s): F31.13 - Bipolar disorder, current episode manic without psychotic features, severe Assessment and Plan: 1. Continue Risperidone 2mg po BID 2. Back IM per civil commitment- Give Haldol 5mg IM with Ativan 1.5mg Im if pt refuses oral risperidone. 3. Continue depakote 1000mg No change to above plan Greater than 50% of the session was spent on counseling and/or coordination of care Reason for contiued inpatient stay Substantial Risk for: inability to function
[2020-10-29 14:53] LABS: INTERNATIONAL NORM RATIO 1.1 (0.9-1.1); Prothrombin Time 12.6 SEC (10.8-13.0)
[2020-10-29 15:19] LABS: Iron 37 mcg/dL (30-160); Lactate Dehydrogenase 242 U/L (122-220); Percent Iron Saturation 11 % (15-50); Total Iron Binding Capacity 347 mcg/dL (228-428); Unsaturated Iron Binding 310 ug/dL
[2020-10-29 15:41] LABS: Ferritin 58 ng/mL (10-122)
[2020-10-29 18:30] VITALS: BP 110/59; PULSE 80; TEMP 36.5
[2020-10-29] MEDS: traZODone HCL 100 MG TABLET PO (20:38)
[2020-10-29] MEDS: Clotrimazole 1 % Cream 15 GM TUBE 1 APPL TOPICAL (21:23)
[2020-10-30 04:20] VITALS: BP 122/75; PULSE 73; RESP 16; TEMP 36.7; O2SAT 98
[2020-10-30] MEDS: hydroCHLOROthiazide 25 MG TABLET PO (08:27)
[2020-10-30] MEDS: risperiDONE 2 MG TABLET PO (08:27)
[2020-10-30 08:29] VITALS: BP 122/75; PULSE 73
[2020-10-30] MEDS: atenoloL 50 MG TABLET PO (08:29)
--- NOTE | 2020-10-30 15:13 | P.PNPSI_ITS ---
Subjective Subjective Date of Service: 10/30/20 Reason For Visit: Acute Psychosis Subjective Notes: [place]rera Order (Section 8) Interim History: Pt very guarded and suspicious this morning reporting that her room has mold and that this intentional to cause her harm. She reports seeing some angels at night that are affecting her sleep. 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 She reports staff body shaming her, although she can provide any details about this. She denies SI/HI. Per nursing notes pt was up most night, reporting seeing angels, somewhat agitated about having a roommate. Medication Compliance: Yes Side effects from medications: No Attending Groups: Intermittent Review of Systems Constitutional: Reports no additional constitutional complaints Cardiovascular: Denies chest pain, Denies Epigastric Pain and Denies dyspnea Respiratory: Denies chest congestion and Denies dyspnea Gastrointestinal: Denies abdominal pain, Denies change in stool character, Denies constipation and Denies vomiting Genitourinary: Reports no additional female genitourinary complaints Mental Status Exam Mental Status Exam Narrative: Appearance: [place] woman, casually groomed, somewhat disheveled today, in NAD Behavior: guarded and suspicious Psychomotor: no agitation or retardation noted Speech: clear, normal rate but hyperverbal, spontaneous TP: tangential TC: suspiciousness about other taking advantage of her because 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 Diagnostics Vital Signs (24Hr): Vital Signs - 24 hr 10/29/20 18:30 10/30/20 04:20 10/30/20 08:29 Temperature 97.7 F 98.1 F Pulse Rate 80 73 73 Respiratory Rate 16 Blood Pressure 110/59 L 122/75 122/75 Pulse Oximetry 98 Body Mass Index 61.8 Labs Results: 10/29/20 12:09 10/29/20 12:09 Labs: Laboratory Results - last 48 hr 10/29/20 10/29/20 10/29/20 07:46 07:46 12:09 WBC 9.4 RBC 4.19 L Hgb 11.8 L Hct 35.6 L MCV 85.0 MCH 28.2 MCHC 33.1 RDW 12.9 Plt Count 185 MPV 10.3 Immature Gran % (Auto) 0.3 Neut % (Auto) 63.0 Lymph % (Auto) 25.6 [place] % (Auto) 9.4 Eos % (Auto) 1.3 Baso % (Auto) 0.4 Lymph # (Auto) 2.4 [place] # (Auto) 0.9 Eos # (Auto) 0.1 Baso # (Auto) 0.0 Abs Immat Gran (auto) 0.03 Absolute Neuts (auto) 5.9 Absolute Nucleated RBC 0.000 Nucleated RBC % (auto) 0.0 PT INR D-Dimer < 200 Sodium Potassium Chloride Carbon Dioxide Anion Gap BUN Creatinine Estim Creat Clear Calc Estimated GFR Random Glucose Calcium Iron TIBC % Saturation Unsat Iron Binding Ferritin Total Bilirubin AST ALT Alkaline Phosphatase Lactate Dehydrogenase Total Protein Albumin Valproic Acid < 2.0 L 10/29/20 10/29/20 10/29/20 12:09 12:09 14:31 WBC 9.9 RBC 4.11 L Hgb 11.5 L Hct 35.2 L MCV 85.6 MCH 28.0 MCHC 32.7 RDW 12.9 Plt Count 192 MPV 10.4 Immature Gran % (Auto) 0.3 Neut % (Auto) 67.3 Lymph % (Auto) 22.9 [place] % (Auto) 8.3 Eos % (Auto) 0.8 Baso % (Auto) 0.4 Lymph # (Auto) 2.3 [place] # (Auto) 0.8 Eos # (Auto) 0.1 Baso # (Auto) 0.0 Abs Immat Gran (auto) 0.03 Absolute Neuts (auto) 6.7 Absolute Nucleated RBC 0.000 Nucleated RBC % (auto) 0.0 PT 12.6 INR 1.1 D-Dimer Sodium 141 Potassium 3.9 Chloride 101 Carbon Dioxide 29 Anion Gap 15 BUN 15 Creatinine 0.73 Estim Creat Clear Calc 207.7 Estimated GFR > 60 Random Glucose 99 Calcium 9.2 Iron TIBC % Saturation Unsat Iron Binding Ferritin Total Bilirubin 0.4 AST 32 H ALT 55 H Alkaline Phosphatase 65 Lactate Dehydrogenase Total Protein 6.8 Albumin 4.2 Valproic Acid 10/29/20 10/29/20 14:31 14:31 WBC RBC Hgb Hct MCV MCH MCHC RDW Plt Count MPV Immature Gran % (Auto) Neut % (Auto) Lymph % (Auto) [place] % (Auto) Eos % (Auto) Baso % (Auto) Lymph # (Auto) [place] # (Auto) Eos # (Auto) Baso # (Auto) Abs Immat Gran (auto) Absolute Neuts (auto) Absolute Nucleated RBC Nucleated RBC % (auto) PT INR D-Dimer Sodium Potassium Chloride Carbon Dioxide Anion Gap BUN Creatinine Estim Creat Clear Calc Estimated GFR Random Glucose Calcium Iron 37 Cancelled TIBC 347 Cancelled % Saturation 11 L Cancelled Unsat Iron Binding 310 Cancelled Ferritin 58 Cancelled Total Bilirubin AST ALT Alkaline Phosphatase Lactate Dehydrogenase 242 H Total Protein Albumin Valproic Acid Imaging Radiology Impressions: ITS Impressions Chest X-Ray 10/12/20 01:44 IMPRESSION: No evidence for acute disease. Head CT 10/12/20 19:11 IMPRESSION: No acute intracranial pathology. Venous Duplex 10/29/20 02:12 IMPRESSION: No DVT demonstrated in the left lower extremity. Medications Medications Current Medications Generic Name Dose Route Start Last Admin Trade Name Freq PRN Reason Stop Dose Admin Acetaminophen 650 mg 10/14/20 22:36 Acetaminophen 325 Mg Tablet PO Q6H PRN Headache/Pain Mild Scale (1-3) Al Hydroxide/Mg Hydroxide 30 ml 10/14/20 22:36 Magnesium Hydrox/Alum Hydrox 30 Ml Oral.Susp PO Q6H PRN Heartburn/Nausea Atenolol 50 mg 10/12/20 09:00 10/30/20 08:29 Atenolol 50 Mg Tablet PO 50 mg DAILY [facility] Administration Protocol Benztropine Mesylate 1 mg 10/30/20 21:00 Benztropine Mesylate 2 Mg/2 Ml Vial IM BID [facility] Clonazepam 1 mg 10/30/20 21:00 Clonazepam 1 Mg Tablet PO BEDTIME [facility] Clotrimazole 1 appl 10/29/20 21:00 10/30/20 11:01 Clotrimazole 1 % Cream 15 Gm Tube TOPICAL Not Given BID [facility] Protocol Haloperidol Lactate 5 mg 10/23/20 21:00 10/30/20 09:20 Haloperidol Lactate 5 Mg/Ml Vial IM Not Given BID [facility] Hydrochlorothiazide 25 mg 10/12/20 09:00 10/30/20 08:27 Hydrochlorothiazide 25 Mg Tablet PO 25 mg DAILY [facility] Administration Protocol Hydroxyzine HCl 25 mg 10/14/20 22:36 10/23/20 01:24 Hydroxyzine Hcl 25 Mg Tablet PO 25 mg Q4H PRN Administration mild Anxiety Magnesium Hydroxide 30 ml 10/14/20 22:36 Milk Of Magnesia 30 Ml Oral.Susp PO DAILY PRN Constipation Nicotine Polacrilex 4 mg 10/14/20 22:36 Nicotine Polacrilex 2 Mg Gum BUCCAL Q2H PRN Nicotine Cravings Risperidone 3 mg 10/30/20 21:00 Risperidone 3 Mg Tablet PO BID [facility] Trazodone HCl 50 mg 10/14/20 22:36 10/27/20 00:35 Trazodone Hcl 50 Mg Tablet PO 50 mg BEDTIME PRN Administration Insomnia Trazodone HCl 150 mg 10/30/20 21:00 Trazodone Hcl 50 Mg Tablet PO BEDTIME [facility] Allergies Allergies Allergy/AdvReac Type Severity Reaction Status Date / Time kiwi [KIWI] Allergy Mild HIVES Verified 10/01/20 14:49 mold [MOLD EXTRACTS*] Allergy Mild HIVES Verified 10/01/20 14:49 Assessment & Plan Assessment & Plan (1) Bipolar affective, manic, severe: Status: Acute Code(s): F31.13 - Bipolar disorder, current episode manic without psychotic features, severe Assessment and Plan: 1. Increase risperidone to 3mg po BID. 2. Increase trazodone to 150mg po qhs for sleep 3. Clonazepam 1mg po qhs. (2) Hypertension, essential: Status: Acute Code(s): I10 - Essential (primary) hypertension (3) Morbid obesity: Status: Acute Code(s): E66.01 - Morbid (severe) obesity due to excess calories (4) Factor 5 Leiden mutation, heterozygous: Status: Acute Code(s): D68.51 - Activated protein C resistance Greater than 50% of the session was spent on counseling and/or coordination of care Reason for contiued inpatient stay Substantial Risk for: inability to function
[2020-10-30 18:00] VITALS: BP 118/62; PULSE 65; TEMP 36.7
[2020-10-30] MEDS: clonazePAM 1 MG TABLET PO (19:52)
[2020-10-30] MEDS: traZODone HCL 50 MG TABLET 150 MG PO (19:52)
[2020-10-30] MEDS: risperiDONE 3 MG TABLET PO (19:53)
[2020-10-31 04:40] VITALS: BP 120/57; PULSE 72; RESP 18; TEMP 36.1; O2SAT 99
[2020-10-31 09:36] VITALS: BP 120/57; PULSE 72
[2020-10-31] MEDS: atenoloL 50 MG TABLET PO (09:36)
[2020-10-31] MEDS: hydroCHLOROthiazide 25 MG TABLET PO (09:36)
[2020-10-31] MEDS: risperiDONE 3 MG TABLET PO (09:36)
[2020-10-31] MEDS: Clotrimazole 1 % Cream 15 GM TUBE 1 APPL TOPICAL ×2 (09:38→20:59)
[2020-10-31 18:00] VITALS: BP 132/68; PULSE 77; TEMP 37
--- NOTE | 2020-10-31 18:15 | HO.PSYCHPN ---
Subjective Subjective Date of Service: 10/31/20 Reason For Visit: Acute Psychosis Interim History: Pt continues to present as very guarded and suspicious this morning reporting that her room has mold and that this intentional to cause her harm. She reports seeing some angels at night that are affecting her sleep. 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 She reports staff body shaming her, although she can provide any details about this. She denies SI/HI. Per nursing notes, pt was once again up most night, reporting seeing angels, somewhat agitated about having a roommate. Review of Systems Review of Systems Yes all other systems are reviewed and are negative Constitutional: Reports as per HPI and Reports no additional constitutional complaints Eyes: Reports as per HPI and Reports no additional eye complaints Reports system reviewed and no additional complaints, except as documented and Reports as per HPI Cardiovascular: Reports as per HPI, Reports no additional cardiovascular complaints, Denies chest pain, Denies Epigastric Pain and Denies dyspnea Respiratory: Reports as per HPI, Reports no additional respiratory complaints, Denies chest congestion and Denies dyspnea Gastrointestinal: Reports as per HPI, Reports no additional gastrointestinal complaints, Denies abdominal pain, Denies change in stool character, Denies constipation and Denies vomiting Musculoskeletal: Reports no additional musculoskeletal complaints and Reports as per HPI Reports system reviewed and no additional complaints, except as documented and Reports as per HPI Psychiatric: Reports no additional psychiatric complaints Mental Status Exam Mental Status Exam Narrative: Appearance: [place] woman, casually groomed, somewhat disheveled today, in NAD Behavior: guarded and suspicious Psychomotor: no agitation or retardation noted Speech: clear, normal rate but hyperverbal, spontaneous TP: tangential TC: suspiciousness about other taking advantage of her because 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 Patient Appearance: Disheveled Patient Orientation: Person Level of Consciousness: Awake and Follows Commands Patient Behavior: Wandering and Confused Mood Description: Constricted and Anxious Affect Description: Constricted, Anxious, Labile and Angry Ability to Follow Directions: Poor Speech Pattern: Difficulty Finding Words Diagnostics Vital Signs (24Hr): Vital Signs - 24 hr 10/31/20 04:40 10/31/20 09:36 Temperature 97 F Pulse Rate 72 72 Respiratory Rate 18 Blood Pressure 120/57 L 120/57 L Pulse Oximetry 99 Body Mass Index 61.8 Labs Results: 10/29/20 12:09 10/29/20 12:09 Imaging Radiology Impressions: ITS Impressions Chest X-Ray 10/12/20 01:44 IMPRESSION: No evidence for acute disease. Head CT 10/12/20 19:11 IMPRESSION: No acute intracranial pathology. Venous Duplex 10/29/20 02:12 IMPRESSION: No DVT demonstrated in the left lower extremity. Medications Medications Current Medications Generic Name Dose Route Start Last Admin Trade Name Freq PRN Reason Stop Dose Admin Acetaminophen 650 mg 10/14/20 22:36 Acetaminophen 325 Mg Tablet PO Q6H PRN Headache/Pain Mild Scale (1-3) Al Hydroxide/Mg Hydroxide 30 ml 10/14/20 22:36 Magnesium Hydrox/Alum Hydrox 30 Ml Oral.Susp PO Q6H PRN Heartburn/Nausea Atenolol 50 mg 10/12/20 09:00 10/31/20 09:36 Atenolol 50 Mg Tablet PO 50 mg DAILY INOCENCIO Administration Protocol Benztropine Mesylate 1 mg 10/30/20 21:00 10/31/20 10:39 Benztropine Mesylate 2 Mg/2 Ml Vial IM Not Given BID INOCENCIO Clonazepam 1 mg 10/30/20 21:00 10/30/20 19:52 Clonazepam 1 Mg Tablet PO 1 mg BEDTIME INOCENCIO Administration Clotrimazole 1 appl 10/29/20 21:00 10/31/20 09:38 Clotrimazole 1 % Cream 15 Gm Tube TOPICAL 1 appl BID INOCENCIO Administration Protocol Haloperidol Lactate 5 mg 10/23/20 21:00 10/31/20 10:39 Haloperidol Lactate 5 Mg/Ml Vial IM Not Given BID INOCENCIO Hydrochlorothiazide 25 mg 10/12/20 09:00 10/31/20 09:36 Hydrochlorothiazide 25 Mg Tablet PO 25 mg DAILY INOCENCIO Administration Protocol Hydroxyzine HCl 25 mg 10/14/20 22:36 10/23/20 01:24 Hydroxyzine Hcl 25 Mg Tablet PO 25 mg Q4H PRN Administration mild Anxiety Magnesium Hydroxide 30 ml 10/14/20 22:36 Milk Of Magnesia 30 Ml Oral.Susp PO DAILY PRN Constipation Nicotine Polacrilex 4 mg 10/14/20 22:36 Nicotine Polacrilex 2 Mg Gum BUCCAL Q2H PRN Nicotine Cravings Risperidone 3 mg 10/30/20 21:00 10/31/20 09:36 Risperidone 3 Mg Tablet PO 3 mg BID INOCENCIO Administration Trazodone HCl 50 mg 10/14/20 22:36 10/27/20 00:35 Trazodone Hcl 50 Mg Tablet PO 50 mg BEDTIME PRN Administration Insomnia Trazodone HCl 150 mg 10/30/20 21:00 10/30/20 19:52 Trazodone Hcl 50 Mg Tablet PO 150 mg BEDTIME INOCENCIO Administration Allergies Allergies Allergy/AdvReac Type Severity Reaction Status Date / Time kiwi [KIWI] Allergy Mild HIVES Verified 10/01/20 14:49 mold [MOLD EXTRACTS*] Allergy Mild HIVES Verified 10/01/20 14:49 Assessment & Plan Assessment & Plan (1) Bipolar affective, manic, severe: Status: Acute Code(s): F31.13 - Bipolar disorder, current episode manic without psychotic features, severe Assessment and Plan: 1. Continue risperidone to 3mg po BID. 2. Increase trazodone to 150mg po qhs for sleep 3. Clonazepam 1mg po qhs. (2) Hypertension, essential: Status: Acute Code(s): I10 - Essential (primary) hypertension (3) Morbid obesity: Status: Acute Code(s): E66.01 - Morbid (severe) obesity due to excess calories (4) Factor 5 Leiden mutation, heterozygous: Status: Acute Code(s): D68.51 - Activated protein C resistance Greater than 50% of the session was spent on counseling and/or coordination of care Reason for contiued inpatient stay Substantial Risk for: inability to function
[2020-10-31] MEDS: Haloperidol Lactate 5 MG/ML VIAL IM (20:51)
[2020-10-31] MEDS: Benztropine Mesylate 2 MG/2 ML VIAL 1 MG IM (20:52)
[2020-11-01 06:00] VITALS: BP 140/73; PULSE 76; TEMP 36.3; O2SAT 100
--- NOTE | 2020-11-01 08:43 | P.PNPSI_ITS ---
Subjective Subjective Date of Service: 11/01/20 Reason For Visit: Acute Psychosis Interim History: 11/01: Disorganized, perplexed, FOI/, catholic preoccupation. Med compliant. Ct plan 10/31:Pt continues to present as very guarded and suspicious this morning reporting that her room has mold and that this intentional to cause her harm. She reports seeing some angels at night that are affecting her sleep. 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 She repor ts staff body shaming her, although she can provide any details about this. She denies SI/HI. Per nursing notes, pt was once again up most night, reporting seeing angels, somewhat agitated about having a roommate. Review of Systems Review of Systems Yes all other systems are reviewed and are negative Constitutional: Reports as per HPI and Reports no additional constitutional complaints Eyes: Reports as per HPI and Reports no additional eye complaints Reports system reviewed and no additional complaints, except as documented and Reports as per HPI Cardiovascular: Reports as per HPI, Reports no additional cardiovascular complaints, Denies chest pain, Denies Epigastric Pain and Denies dyspnea Respiratory: Reports as per HPI, Reports no additional respiratory complaints, Denies chest congestion and Denies dyspnea Gastrointestinal: Reports as per HPI, Reports no additional gastrointestinal complaints, Denies abdominal pain, Denies change in stool character, Denies constipation and Denies vomiting Musculoskeletal: Reports no additional musculoskeletal complaints and Reports as per HPI Reports system reviewed and no additional complaints, except as documented and Reports as per HPI Psychiatric: Reports no additional psychiatric complaints Mental Status Exam Mental Status Exam Narrative: Appearance: [place] woman, casually groomed, somewhat disheveled today, in NAD Behavior: guarded and suspicious Psychomotor: no agitation or retardation noted Speech: clear, normal rate but hyperverbal, spontaneous TP: tangential TC: suspiciousness about other taking advantage of her because 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 Patient Appearance: Disheveled Patient Orientation: Person Level of Consciousness: Awake and Follows Commands Patient Behavior: Wandering and Confused Mood Description: Constricted and Anxious Affect Description: Constricted, Anxious, Labile and Angry Ability to Follow Directions: Poor Speech Pattern: Difficulty Finding Words Diagnostics Vital Signs (24Hr): Vital Signs - 24 hr 10/31/20 09:36 10/31/20 18:00 11/01/20 06:00 Temperature 98.6 F 97.4 F Pulse Rate 72 77 76 Blood Pressure 120/57 L 132/68 140/73 H Pulse Oximetry 100 Body Mass Index 61.8 Labs Results: 10/29/20 12:09 10/29/20 12:09 Imaging Radiology Impressions: ITS Impressions Chest X-Ray 10/12/20 01:44 IMPRESSION: No evidence for acute disease. Head CT 10/12/20 19:11 IMPRESSION: No acute intracranial pathology. Venous Duplex 10/29/20 02:12 IMPRESSION: No DVT demonstrated in the left lower extremity. Medications Medications Current Medications Generic Name Dose Route Start Last Admin Trade Name Freq PRN Reason Stop Dose Admin Acetaminophen 650 mg 10/14/20 22:36 Acetaminophen 325 Mg Tablet PO Q6H PRN Headache/Pain Mild Scale (1-3) Al Hydroxide/Mg Hydroxide 30 ml 10/14/20 22:36 Magnesium Hydrox/Alum Hydrox 30 Ml Oral.Susp PO Q6H PRN Heartburn/Nausea Atenolol 50 mg 10/12/20 09:00 10/31/20 09:36 Atenolol 50 Mg Tablet PO 50 mg DAILY INOCENCIO Administration Protocol Benztropine Mesylate 1 mg 10/30/20 21:00 10/31/20 20:52 Benztropine Mesylate 2 Mg/2 Ml Vial IM 1 mg BID INOCENCIO Administration Clonazepam 1 mg 10/30/20 21:00 10/31/20 20:57 Clonazepam 1 Mg Tablet PO Not Given BEDTIME INOCENCIO Clotrimazole 1 appl 10/29/20 21:00 10/31/20 20:59 Clotrimazole 1 % Cream 15 Gm Tube TOPICAL 1 appl BID INOCENCIO Administration Protocol Haloperidol Lactate 5 mg 10/23/20 21:00 10/31/20 20:51 Haloperidol Lactate 5 Mg/Ml Vial IM 5 mg BID INOCENCIO Administration Hydrochlorothiazide 25 mg 10/12/20 09:00 10/31/20 09:36 Hydrochlorothiazide 25 Mg Tablet PO 25 mg DAILY INOCENCIO Administration Protocol Hydroxyzine HCl 25 mg 10/14/20 22:36 10/23/20 01:24 Hydroxyzine Hcl 25 Mg Tablet PO 25 mg Q4H PRN Administration mild Anxiety Magnesium Hydroxide 30 ml 10/14/20 22:36 Milk Of Magnesia 30 Ml Oral.Susp PO DAILY PRN Constipation Nicotine Polacrilex 4 mg 10/14/20 22:36 Nicotine Polacrilex 2 Mg Gum BUCCAL Q2H PRN Nicotine Cravings Risperidone 3 mg 10/31/20 21:00 10/31/20 20:57 Risperidone Oral Luly 1 Mg/Ml Solution PO Not Given BID INOCENCIO Trazodone HCl 50 mg 10/14/20 22:36 10/27/20 00:35 Trazodone Hcl 50 Mg Tablet PO 50 mg BEDTIME PRN Administration Insomnia Trazodone HCl 150 mg 10/30/20 21:00 10/31/20 20:57 Trazodone Hcl 50 Mg Tablet PO Not Given BEDTIME INOCENCIO Allergies Allergies Allergy/AdvReac Type Severity Reaction Status Date / Time kiwi [KIWI] Allergy Mild HIVES Verified 10/01/20 14:49 mold [MOLD EXTRACTS*] Allergy Mild HIVES Verified 10/01/20 14:49 Assessment & Plan Assessment & Plan (1) Bipolar affective, manic, severe: Status: Acute Code(s): F31.13 - Bipolar disorder, current episode manic without psychotic features, severe Assessment and Plan: 1. Continue risperidone to 3mg po BID. 2. Increase trazodone to 150mg po qhs for sleep 3. Clonazepam 1mg po qhs. (2) Hypertension, essential: Status: Acute Code(s): I10 - Essential (primary) hypertension (3) Morbid obesity: Status: Acute Code(s): E66.01 - Morbid (severe) obesity due to excess calories (4) Factor 5 Leiden mutation, heterozygous: Status: Acute Code(s): D68.51 - Activated protein C resistance Greater than 50% of the session was spent on counseling and/or coordination of care Reason for contiued inpatient stay Substantial Risk for: inability to function
[2020-11-01 08:48] VITALS: BP 140/73; PULSE 76
[2020-11-01] MEDS: atenoloL 50 MG TABLET PO (08:48)
[2020-11-01] MEDS: risperiDONE Oral Sol 1 MG/ML SOLUTION 3 MG PO ×2 (08:49→20:24)
[2020-11-01] MEDS: hydroCHLOROthiazide 25 MG TABLET PO (08:50)
[2020-11-01] MEDS: Clotrimazole 1 % Cream 15 GM TUBE 1 APPL TOPICAL ×2 (09:57→20:39)
[2020-11-01 18:00] VITALS: BP 126/65; PULSE 81; TEMP 36.2
[2020-11-01] MEDS: clonazePAM 1 MG TABLET PO (20:23)
[2020-11-01] MEDS: traZODone HCL 50 MG TABLET 150 MG PO (20:24)
[2020-11-02 09:09] VITALS: BP 118/53; PULSE 83
[2020-11-02] MEDS: atenoloL 50 MG TABLET PO (09:09)
[2020-11-02] MEDS: hydroCHLOROthiazide 25 MG TABLET PO (09:09)
[2020-11-02] MEDS: risperiDONE Oral Sol 1 MG/ML SOLUTION 3 MG PO ×2 (09:10→20:11)
[2020-11-02] MEDS: Clotrimazole 1 % Cream 15 GM TUBE 1 APPL TOPICAL ×2 (09:43→20:18)
--- NOTE | 2020-11-02 11:17 | HO.PSYCHPN ---
Subjective Subjective Date of Service: 11/02/20 Reason For Visit: Acute Psychosis Interim History: 11/02: Patient remains anxious restless. Poor sleep last night. Disorganized. Denies auditory hallucinations but gets messages. Much talk about Reiki and Chakras. Will add scheduled Klonopin to reduce anxiety. 11/01: Disorganized, perplexed, FOI/, restoration preoccupation. Med compliant. Ct plan 10/31:Pt continues to present as very guarded and suspicious this morning reporting that her room has mold and that this intentional to cause her harm. She reports seeing some angels at night that are affecting her sleep. 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 She reports staff body shaming her, although she can provide any details about this. She denies SI/HI. Per nursing notes, pt was once again up most night, reporting seeing angels, somewhat agitated about having a roommate. Review of Systems Review of Systems Yes all other systems are reviewed and are negative Constitutional: Reports as per HPI and Reports no additional constitutional complaints Eyes: Reports as per HPI and Reports no additional eye complaints Reports system reviewed and no additional complaints, except as documented and Reports as per HPI Cardiovascular: Reports as per HPI, Reports no additional cardiovascular complaints, Denies chest pain, Denies Epigastric Pain and Denies dyspnea Respiratory: Reports as per HPI, Reports no additional respiratory complaints, Denies chest congestion and Denies dyspnea Gastrointestinal: Reports as per HPI, Reports no additional gastrointestinal complaints, Denies abdominal pain, Denies change in stool character, Denies constipation and Denies vomiting Musculoskeletal: Reports no additional musculoskeletal complaints and Reports as per HPI Reports system reviewed and no additional complaints, except as documented and Reports as per HPI Psychiatric: Reports no additional psychiatric complaints Mental Status Exam Mental Status Exam Narrative: Appearance: [place] woman, casually groomed, somewhat disheveled today, in NAD Behavior: guarded and suspicious Psychomotor: no agitation or retardation noted Speech: clear, normal rate but hyperverbal, spontaneous TP: tangential TC: suspiciousness about other taking advantage of her because 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 Patient Appearance: Disheveled Patient Orientation: Person Level of Consciousness: Awake and Follows Commands Patient Behavior: Wandering and Confused Mood Description: Constricted and Anxious Affect Description: Constricted, Anxious, Labile and Angry Ability to Follow Directions: Poor Speech Pattern: Difficulty Finding Words Diagnostics Vital Signs (24Hr): Vital Signs - 24 hr 11/01/20 18:00 11/02/20 09:09 Temperature 97.1 F Pulse Rate 81 83 Blood Pressure 126/65 118/53 L Body Mass Index 61.8 Labs Results: 10/29/20 12:09 10/29/20 12:09 Imaging Radiology Impressions: ITS Impressions Chest X-Ray 10/12/20 01:44 IMPRESSION: No evidence for acute disease. Head CT 10/12/20 19:11 IMPRESSION: No acute intracranial pathology. Venous Duplex 10/29/20 02:12 IMPRESSION: No DVT demonstrated in the left lower extremity. Medications Medications Current Medications Generic Name Dose Route Start Last Admin Trade Name Freq PRN Reason Stop Dose Admin Acetaminophen 650 mg 10/14/20 22:36 Acetaminophen 325 Mg Tablet PO Q6H PRN Headache/Pain Mild Scale (1-3) Al Hydroxide/Mg Hydroxide 30 ml 10/14/20 22:36 Magnesium Hydrox/Alum Hydrox 30 Ml Oral.Susp PO Q6H PRN Heartburn/Nausea Atenolol 50 mg 10/12/20 09:00 11/02/20 09:09 Atenolol 50 Mg Tablet PO 50 mg DAILY INOCENCIO Administration Protocol Benztropine Mesylate 1 mg 10/30/20 21:00 11/02/20 09:44 Benztropine Mesylate 2 Mg/2 Ml Vial IM Not Given BID INOCENCIO Clonazepam 1 mg 10/30/20 21:00 11/01/20 20:23 Clonazepam 1 Mg Tablet PO 1 mg BEDTIME INOCENCIO Administration Clotrimazole 1 appl 10/29/20 21:00 11/02/20 09:43 Clotrimazole 1 % Cream 15 Gm Tube TOPICAL 1 appl BID INOCENCIO Administration Protocol Haloperidol Lactate 5 mg 10/23/20 21:00 11/02/20 09:45 Haloperidol Lactate 5 Mg/Ml Vial IM Not Given BID INOCENCIO Hydrochlorothiazide 25 mg 10/12/20 09:00 11/02/20 09:09 Hydrochlorothiazide 25 Mg Tablet PO 25 mg DAILY INOCENCIO Administration Protocol Hydroxyzine HCl 25 mg 10/14/20 22:36 10/23/20 01:24 Hydroxyzine Hcl 25 Mg Tablet PO 25 mg Q4H PRN Administration mild Anxiety Magnesium Hydroxide 30 ml 10/14/20 22:36 Milk Of Magnesia 30 Ml Oral.Susp PO DAILY PRN Constipation Nicotine Polacrilex 4 mg 10/14/20 22:36 Nicotine Polacrilex 2 Mg Gum BUCCAL Q2H PRN Nicotine Cravings Risperidone 3 mg 10/31/20 21:00 11/02/20 09:10 Risperidone Oral Luly 1 Mg/Ml Solution PO 3 mg BID INOCENCIO Administration Trazodone HCl 50 mg 10/14/20 22:36 10/27/20 00:35 Trazodone Hcl 50 Mg Tablet PO 50 mg BEDTIME PRN Administration Insomnia Trazodone HCl 150 mg 10/30/20 21:00 11/01/20 20:24 Trazodone Hcl 50 Mg Tablet PO 150 mg BEDTIME INOCENCIO Administration Allergies Allergies Allergy/AdvReac Type Severity Reaction Status Date / Time kiwi [KIWI] Allergy Mild HIVES Verified 10/01/20 14:49 mold [MOLD EXTRACTS*] Allergy Mild HIVES Verified 10/01/20 14:49 Assessment & Plan Assessment & Plan (1) Bipolar affective, manic, severe: Status: Acute Code(s): F31.13 - Bipolar disorder, current episode manic without psychotic features, severe Assessment and Plan: 1. Continue risperidone to 3mg po BID. 2. Increase trazodone to 150mg po qhs for sleep 3. Clonazepam 1mg po qhs. (2) Hypertension, essential: Status: Acute Code(s): I10 - Essential (primary) hypertension (3) Morbid obesity: Status: Acute Code(s): E66.01 - Morbid (severe) obesity due to excess calories (4) Factor 5 Leiden mutation, heterozygous: Status: Acute Code(s): D68.51 - Activated protein C resistance Greater than 50% of the session was spent on counseling and/or coordination of care Reason for contiued inpatient stay Substantial Risk for: inability to function
[2020-11-02] MEDS: clonazePAM 1 MG TABLET PO ×2 (13:13→20:11)
[2020-11-02 18:00] VITALS: BP 136/77; PULSE 85; TEMP 37.1
[2020-11-02] MEDS: traZODone HCL 50 MG TABLET 150 MG PO (20:11)
[2020-11-03 03:40] VITALS: BP 131/76; PULSE 91; RESP 16; TEMP 36.5; O2SAT 97
[2020-11-03 08:34] VITALS: BP 131/76; PULSE 91
[2020-11-03] MEDS: risperiDONE Oral Sol 1 MG/ML SOLUTION 3 MG PO ×2 (08:34→21:26)
[2020-11-03] MEDS: atenoloL 50 MG TABLET PO (08:34)
[2020-11-03] MEDS: clonazePAM 1 MG TABLET PO ×3 (08:35→21:25)
[2020-11-03] MEDS: hydroCHLOROthiazide 25 MG TABLET PO (08:53)
[2020-11-03] MEDS: Clotrimazole 1 % Cream 15 GM TUBE 1 APPL TOPICAL ×2 (09:04→21:48)
[2020-11-03 16:40] VITALS: BP 129/75; PULSE 97; TEMP 36.3
--- NOTE | 2020-11-03 17:44 | HO.PSYCHPN ---
Subjective Subjective Date of Service: 11/03/20 Reason For Visit: Acute Psychosis Subjective Notes: Section 7/8 Interim History: Pt continues to present with delusions related to seeing angels, being a medium. She is disorganized, paranoid towards staff and this com writer stating she may not be getting some of her medical medications. She continues to report great sleep when report from staff if that she is not sleeping at times. She asks for discharged today. She denies SI/HI. Medication Compliance: Yes Side effects from medications: No Attending Groups: Intermittent Review of Systems Review of Systems Yes all other systems are reviewed and are negative Constitutional: Reports as per HPI and Reports no additional constitutional complaints Eyes: Reports as per HPI and Reports no additional eye complaints Reports system reviewed and no additional complaints, except as documented and Reports as per HPI Cardiovascular: Reports as per HPI, Reports no additional cardiovascular complaints, Denies chest pain, Denies Epigastric Pain and Denies dyspnea Respiratory: Reports as per HPI, Reports no additional respiratory complaints, Denies chest congestion and Denies dyspnea Gastrointestinal: Reports as per HPI, Reports no additional gastrointestinal complaints, Denies abdominal pain, Denies change in stool character, Denies constipation and Denies vomiting Musculoskeletal: Reports no additional musculoskeletal complaints and Reports as per HPI Reports system reviewed and no additional complaints, except as documented and Reports as per HPI Psychiatric: Reports no additional psychiatric complaints Mental Status Exam Mental Status Exam Narrative: Appearance: [place] woman, casually groomed, somewhat disheveled today, in NAD Behavior: guarded and suspicious Psychomotor: no agitation or retardation noted Speech: clear, normal rate but hyperverbal, spontaneous TP: tangential TC: suspiciousness about other taking advantage of her because 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 Diagnostics Vital Signs (24Hr): Vital Signs - 24 hr 11/02/20 18:00 11/03/20 03:40 11/03/20 08:34 Temperature 98.7 F 97.7 F Pulse Rate 85 91 91 Respiratory Rate 16 Blood Pressure 136/77 131/76 131/76 Pulse Oximetry 97 Body Mass Index 61.8 Labs Results: 10/29/20 12:09 10/29/20 12:09 Imaging Radiology Impressions: ITS Impressions Chest X-Ray 10/12/20 01:44 IMPRESSION: No evidence for acute disease. Head CT 10/12/20 19:11 IMPRESSION: No acute intracranial pathology. Venous Duplex 10/29/20 02:12 IMPRESSION: No DVT demonstrated in the left lower extremity. Medications Medications Current Medications Generic Name Dose Route Start Last Admin Trade Name Freq PRN Reason Stop Dose Admin Acetaminophen 650 mg 10/14/20 22:36 Acetaminophen 325 Mg Tablet PO Q6H PRN Headache/Pain Mild Scale (1-3) Al Hydroxide/Mg Hydroxide 30 ml 10/14/20 22:36 Magnesium Hydrox/Alum Hydrox 30 Ml Oral.Susp PO Q6H PRN Heartburn/Nausea Atenolol 50 mg 10/12/20 09:00 11/03/20 08:34 Atenolol 50 Mg Tablet PO 50 mg DAILY INOCENCIO Administration Protocol Benztropine Mesylate 1 mg 10/30/20 21:00 11/03/20 09:03 Benztropine Mesylate 2 Mg/2 Ml Vial IM Not Given BID INOCENCIO Clonazepam 1 mg 11/02/20 11:45 11/03/20 17:18 Clonazepam 1 Mg Tablet PO 1 mg TID INOCENCIO Administration Clotrimazole 1 appl 10/29/20 21:00 11/03/20 09:04 Clotrimazole 1 % Cream 15 Gm Tube TOPICAL 1 appl BID INOCENCIO Administration Protocol Haloperidol Lactate 5 mg 10/23/20 21:00 11/03/20 09:03 Haloperidol Lactate 5 Mg/Ml Vial IM Not Given BID INOCENCIO Hydrochlorothiazide 25 mg 10/12/20 09:00 11/03/20 08:53 Hydrochlorothiazide 25 Mg Tablet PO 25 mg DAILY INOCENCIO Administration Protocol Hydroxyzine HCl 25 mg 10/14/20 22:36 10/23/20 01:24 Hydroxyzine Hcl 25 Mg Tablet PO 25 mg Q4H PRN Administration mild Anxiety Magnesium Hydroxide 30 ml 10/14/20 22:36 Milk Of Magnesia 30 Ml Oral.Susp PO DAILY PRN Constipation Nicotine Polacrilex 4 mg 10/14/20 22:36 Nicotine Polacrilex 2 Mg Gum BUCCAL Q2H PRN Nicotine Cravings Risperidone 3 mg 10/31/20 21:00 11/03/20 08:34 Risperidone Oral Luly 1 Mg/Ml Solution PO 3 mg BID INOCENCIO Administration Trazodone HCl 50 mg 10/14/20 22:36 10/27/20 00:35 Trazodone Hcl 50 Mg Tablet PO 50 mg BEDTIME PRN Administration Insomnia Trazodone HCl 150 mg 10/30/20 21:00 11/02/20 20:11 Trazodone Hcl 50 Mg Tablet PO 150 mg BEDTIME INOCENCIO Administration Allergies Allergies Allergy/AdvReac Type Severity Reaction Status Date / Time kiwi [KIWI] Allergy Mild HIVES Verified 10/01/20 14:49 mold [MOLD EXTRACTS*] Allergy Mild HIVES Verified 10/01/20 14:49 Assessment & Plan Assessment & Plan (1) Bipolar affective, manic, severe: Status: Acute Code(s): F31.13 - Bipolar disorder, current episode manic without psychotic features, severe Assessment and Plan: 1. Continue risperidone to 3mg po BID. 2. Increase trazodone to 150mg po qhs for sleep 3. Clonazepam 1mg po qhs. 4. Re start depakote dr 500 mg po BID (2) Hypertension, essential: Status: Acute Code(s): I10 - Essential (primary) hypertension (3) Morbid obesity: Status: Acute Code(s): E66.01 - Morbid (severe) obesity due to excess calories (4) Factor 5 Leiden mutation, heterozygous: Status: Acute Code(s): D68.51 - Activated protein C resistance Greater than 50% of the session was spent on counseling and/or coordination of care Reason for contiued inpatient stay Substantial Risk for: inability to function
[2020-11-03] MEDS: traZODone HCL 50 MG TABLET 150 MG PO (21:25)
[2020-11-04 06:35] VITALS: BP 136/68; PULSE 90; RESP 18; TEMP 36.6; O2SAT 100
[2020-11-04 08:45] VITALS: BP 136/68; PULSE 90
[2020-11-04] MEDS: clonazePAM 1 MG TABLET PO ×3 (08:45→20:57)
[2020-11-04] MEDS: atenoloL 50 MG TABLET PO (08:45)
[2020-11-04] MEDS: hydroCHLOROthiazide 25 MG TABLET PO (08:45)
[2020-11-04] MEDS: risperiDONE Oral Sol 1 MG/ML SOLUTION 3 MG PO ×2 (08:46→20:56)
[2020-11-04] MEDS: Nicotine Polacrilex 2 MG GUM 4 MG BUCCAL (14:54)
--- NOTE | 2020-11-04 16:57 | HO.PSYCHPN ---
Subjective Subjective Date of Service: 11/04/20 Reason For Visit: Acute Psychosis Interim History: Pt continues to present as labile, hyper sexual, grabing her breast in suggestive manner and stating male staff are attempting to groop her. She continues to report that she is a medium, that she is being used by the hospital. She declined taking depakote. She is taking risperidone liquid, mouth checks. She is not sleeping well. Review of Systems Review of Systems Yes all other systems are reviewed and are negative Constitutional: Reports as per HPI and Reports no additional constitutional complaints Eyes: Reports as per HPI and Reports no additional eye complaints Reports system reviewed and no additional complaints, except as documented and Reports as per HPI Cardiovascular: Reports as per HPI, Reports no additional cardiovascular complaints, Denies chest pain, Denies Epigastric Pain and Denies dyspnea Respiratory: Reports as per HPI, Reports no additional respiratory complaints, Denies chest congestion and Denies dyspnea Gastrointestinal: Reports as per HPI, Reports no additional gastrointestinal complaints, Denies abdominal pain, Denies change in stool character, Denies constipation and Denies vomiting Musculoskeletal: Reports no additional musculoskeletal complaints and Reports as per HPI Reports system reviewed and no additional complaints, except as documented and Reports as per HPI Psychiatric: Reports no additional psychiatric complaints Mental Status Exam Mental Status Exam Narrative: Appearance: [place] woman, casually groomed, somewhat disheveled today, in NAD Behavior: guarded and suspicious Psychomotor: no agitation or retardation noted Speech: clear, normal rate but hyperverbal, spontaneous TP: tangential TC: suspiciousness about other taking advantage of her because 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 Patient Appearance: Disheveled Patient Orientation: Person Level of Consciousness: Awake and Follows Commands Patient Behavior: Wandering and Confused Mood Description: Constricted and Anxious Affect Description: Constricted, Anxious, Labile and Angry Ability to Follow Directions: Poor Speech Pattern: Difficulty Finding Words Diagnostics Vital Signs (24Hr): Vital Signs - 24 hr 11/04/20 06:35 11/04/20 08:45 Temperature 97.8 F Pulse Rate 90 90 Respiratory Rate 18 Blood Pressure 136/68 136/68 Pulse Oximetry 100 Body Mass Index 61.8 Labs Results: 10/29/20 12:09 10/29/20 12:09 Imaging Radiology Impressions: ITS Impressions Chest X-Ray 10/12/20 01:44 IMPRESSION: No evidence for acute disease. Head CT 10/12/20 19:11 IMPRESSION: No acute intracranial pathology. Venous Duplex 10/29/20 02:12 IMPRESSION: No DVT demonstrated in the left lower extremity. Medications Medications Current Medications Generic Name Dose Route Start Last Admin Trade Name Freq PRN Reason Stop Dose Admin Acetaminophen 650 mg 10/14/20 22:36 Acetaminophen 325 Mg Tablet PO Q6H PRN Headache/Pain Mild Scale (1-3) Al Hydroxide/Mg Hydroxide 30 ml 10/14/20 22:36 Magnesium Hydrox/Alum Hydrox 30 Ml Oral.Susp PO Q6H PRN Heartburn/Nausea Atenolol 50 mg 10/12/20 09:00 11/04/20 08:45 Atenolol 50 Mg Tablet PO 50 mg DAILY [facility] Administration Protocol Benztropine Mesylate 1 mg 10/30/20 21:00 11/04/20 08:54 Benztropine Mesylate 2 Mg/2 Ml Vial IM Not Given BID [facility] Clonazepam 1 mg 11/02/20 11:45 11/04/20 14:51 Clonazepam 1 Mg Tablet PO 1 mg TID [facility] Administration Clotrimazole 1 appl 10/29/20 21:00 11/04/20 13:02 Clotrimazole 1 % Cream 15 Gm Tube TOPICAL Not Given BID [facility] Protocol Divalproex Sodium 500 mg 11/04/20 21:00 Divalproex Sodium Sprinkles 125 Mg Cap.Dr.Spr PO BID [facility] Haloperidol Lactate 5 mg 10/23/20 21:00 11/04/20 08:55 Haloperidol Lactate 5 Mg/Ml Vial IM Not Given BID [facility] Hydrochlorothiazide 25 mg 10/12/20 09:00 11/04/20 08:45 Hydrochlorothiazide 25 Mg Tablet PO 25 mg DAILY [facility] Administration Protocol Hydroxyzine HCl 25 mg 10/14/20 22:36 10/23/20 01:24 Hydroxyzine Hcl 25 Mg Tablet PO 25 mg Q4H PRN Administration mild Anxiety Magnesium Hydroxide 30 ml 10/14/20 22:36 Milk Of Magnesia 30 Ml Oral.Susp PO DAILY PRN Constipation Nicotine Polacrilex 4 mg 10/14/20 22:36 11/04/20 14:54 Nicotine Polacrilex 2 Mg Gum BUCCAL 2 mg Q2H PRN Administration Nicotine Cravings Risperidone 3 mg 10/31/20 21:00 11/04/20 08:46 Risperidone Oral Luly 1 Mg/Ml Solution PO 3 mg BID [facility] Administration Trazodone HCl 50 mg 10/14/20 22:36 10/27/20 00:35 Trazodone Hcl 50 Mg Tablet PO 50 mg BEDTIME PRN Administration Insomnia Trazodone HCl 150 mg 10/30/20 21:00 11/03/20 21:25 Trazodone Hcl 50 Mg Tablet PO 150 mg BEDTIME [facility] Administration Allergies Allergies Allergy/AdvReac Type Severity Reaction Status Date / Time kiwi [KIWI] Allergy Mild HIVES Verified 10/01/20 14:49 mold [MOLD EXTRACTS*] Allergy Mild HIVES Verified 10/01/20 14:49 Assessment & Plan Assessment & Plan (1) Bipolar affective, manic, severe: Status: Acute Code(s): F31.13 - Bipolar disorder, current episode manic without psychotic features, severe Assessment and Plan: 1. Continue risperidone to 3mg po BID. 2. Increase trazodone to 150mg po qhs for sleep 3. Clonazepam 1mg po qhs. 4. Re start depakote dr 500 mg po BID (2) Hypertension, essential: Status: Acute Code(s): I10 - Essential (primary) hypertension (3) Morbid obesity: Status: Acute Code(s): E66.01 - Morbid (severe) obesity due to excess calories (4) Factor 5 Leiden mutation, heterozygous: Status: Acute Code(s): D68.51 - Activated protein C resistance Greater than 50% of the session was spent on counseling and/or coordination of care Reason for contiued inpatient stay Substantial Risk for: inability to function
[2020-11-04 17:25] VITALS: BP 128/72; PULSE 85; TEMP 36.3
[2020-11-04] MEDS: Clotrimazole 1 % Cream 15 GM TUBE 1 APPL TOPICAL (20:56)
[2020-11-04] MEDS: Divalproex Sodium Sprinkles 125 MG CAP.DR.SPR 500 MG PO (20:56)
[2020-11-04] MEDS: traZODone HCL 50 MG TABLET 150 MG PO (20:57)
[2020-11-05 05:05] VITALS: BP 133/62; PULSE 86; RESP 18; TEMP 36.5; O2SAT 97
[2020-11-05] MEDS: clonazePAM 1 MG TABLET PO ×3 (10:30→20:06)
[2020-11-05] MEDS: Divalproex Sodium Sprinkles 125 MG CAP.DR.SPR 500 MG PO ×2 (10:30→20:07)
[2020-11-05 10:31] VITALS: BP 132/62; PULSE 86
[2020-11-05] MEDS: atenoloL 50 MG TABLET PO (10:31)
[2020-11-05] MEDS: hydroCHLOROthiazide 25 MG TABLET PO (10:32)
[2020-11-05] MEDS: risperiDONE Oral Sol 1 MG/ML SOLUTION 3 MG PO ×2 (10:32→20:06)
[2020-11-05] MEDS: Haloperidol Lactate 5 MG/ML VIAL IM (10:40)
[2020-11-05] MEDS: Benztropine Mesylate 2 MG/2 ML VIAL 1 MG IM (10:49)
[2020-11-05] MEDS: Clotrimazole 1 % Cream 15 GM TUBE 1 APPL TOPICAL ×2 (10:58→20:56)
[2020-11-05 17:19] VITALS: BP 137/63; PULSE 86; RESP 20; TEMP 36.9; O2SAT 98
--- NOTE | 2020-11-05 19:29 | HO.PSYCHPN ---
Subjective Subjective Date of Service: 11/05/20 Reason For Visit: Acute Psychosis Interim History: Pt continues to present as labile, hyper sexual. Pt is with flight of ideas, complaining that hospital is using her because she is a medium. She reports seeing angels and sensing other people's energy. She denies SI/HI. Per nursing, pt not sleeping well. Oral medications at times she spits them. She is intrusive to peers/staff, innapropriate boundaries. Review of Systems Review of Systems Yes all other systems are reviewed and are negative Constitutional: Reports as per HPI and Reports no additional constitutional complaints Eyes: Reports as per HPI and Reports no additional eye complaints Reports system reviewed and no additional complaints, except as documented and Reports as per HPI Cardiovascular: Reports as per HPI, Reports no additional cardiovascular complaints, Denies chest pain, Denies Epigastric Pain and Denies dyspnea Respiratory: Reports as per HPI, Reports no additional respiratory complaints, Denies chest congestion and Denies dyspnea Gastrointestinal: Reports as per HPI, Reports no additional gastrointestinal complaints, Denies abdominal pain, Denies change in stool character, Denies constipation and Denies vomiting Musculoskeletal: Reports no additional musculoskeletal complaints and Reports as per HPI Reports system reviewed and no additional complaints, except as documented and Reports as per HPI Psychiatric: Reports no additional psychiatric complaints Mental Status Exam Mental Status Exam Narrative: Appearance: [place] woman, casually groomed, somewhat disheveled today, in NAD Behavior: guarded and suspicious Psychomotor: no agitation or retardation noted Speech: clear, normal rate but hyperverbal, spontaneous TP: tangential TC: suspiciousness about other taking 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 Diagnostics Vital Signs (24Hr): Vital Signs - 24 hr 11/05/20 05:05 11/05/20 10:31 11/05/20 17:19 Temperature 97.7 F 98.5 F Pulse Rate 86 86 86 Respiratory Rate 18 20 Blood Pressure 133/62 132/62 137/63 Pulse Oximetry 97 98 Body Mass Index 61.8 Labs Results: 10/29/20 12:09 10/29/20 12:09 Imaging Radiology Impressions: ITS Impressions Chest X-Ray 10/12/20 01:44 IMPRESSION: No evidence for acute disease. Head CT 10/12/20 19:11 IMPRESSION: No acute intracranial pathology. Venous Duplex 10/29/20 02:12 IMPRESSION: No DVT demonstrated in the left lower extremity. Medications Medications Current Medications Generic Name Dose Route Start Last Admin Trade Name Freq PRN Reason Stop Dose Admin Acetaminophen 650 mg 10/14/20 22:36 Acetaminophen 325 Mg Tablet PO Q6H PRN Headache/Pain Mild Scale (1-3) Al Hydroxide/Mg Hydroxide 30 ml 10/14/20 22:36 Magnesium Hydrox/Alum Hydrox 30 Ml Oral.Susp PO Q6H PRN Heartburn/Nausea Atenolol 50 mg 10/12/20 09:00 11/05/20 10:31 Atenolol 50 Mg Tablet PO 50 mg DAILY [facility] Administration Protocol Benztropine Mesylate 1 mg 10/30/20 21:00 11/05/20 10:49 Benztropine Mesylate 2 Mg/2 Ml Vial IM 1 mg BID [facility] Administration Clonazepam 1 mg 11/02/20 11:45 11/05/20 14:44 Clonazepam 1 Mg Tablet PO 1 mg TID [facility] Administration Clotrimazole 1 appl 10/29/20 21:00 11/05/20 10:58 Clotrimazole 1 % Cream 15 Gm Tube TOPICAL 1 appl BID [facility] Administration Protocol Divalproex Sodium 500 mg 11/04/20 21:00 11/05/20 10:30 Divalproex Sodium Sprinkles 125 Mg Cap.DrJcSpr PO 500 mg BID [facility] Administration Haloperidol Lactate 5 mg 10/23/20 21:00 11/05/20 10:40 Haloperidol Lactate 5 Mg/Ml Vial IM 5 mg BID [facility] Administration Hydrochlorothiazide 25 mg 10/12/20 09:00 11/05/20 10:32 Hydrochlorothiazide 25 Mg Tablet PO 25 mg DAILY [facility] Administration Protocol Hydroxyzine HCl 25 mg 10/14/20 22:36 10/23/20 01:24 Hydroxyzine Hcl 25 Mg Tablet PO 25 mg Q4H PRN Administration mild Anxiety Magnesium Hydroxide 30 ml 10/14/20 22:36 Milk Of Magnesia 30 Ml Oral.Susp PO DAILY PRN Constipation Nicotine Polacrilex 4 mg 10/14/20 22:36 11/04/20 14:54 Nicotine Polacrilex 2 Mg Gum BUCCAL 2 mg Q2H PRN Administration Nicotine Cravings Risperidone 3 mg 10/31/20 21:00 11/05/20 10:32 Risperidone Oral Luly 1 Mg/Ml Solution PO 3 mg BID [facility] Administration Trazodone HCl 50 mg 10/14/20 22:36 10/27/20 00:35 Trazodone Hcl 50 Mg Tablet PO 50 mg BEDTIME PRN Administration Insomnia Trazodone HCl 150 mg 10/30/20 21:00 11/04/20 20:57 Trazodone Hcl 50 Mg Tablet PO 150 mg BEDTIME [facility] Administration Allergies Allergies Allergy/AdvReac Type Severity Reaction Status Date / Time kiwi [KIWI] Allergy Mild HIVES Verified 10/01/20 14:49 mold [MOLD EXTRACTS*] Allergy Mild HIVES Verified 10/01/20 14:49 Assessment & Plan Assessment & Plan (1) Bipolar affective, manic, severe: Status: Acute Code(s): F31.13 - Bipolar disorder, current episode manic without psychotic features, severe Assessment and Plan: 1. Continue risperidone to 3mg po BID. 2. Increase trazodone to 150mg po qhs for sleep 3. Clonazepam 1mg po qhs. 4. Re start depakote dr 500 mg po BID (2) Hypertension, essential: Status: Acute Code(s): I10 - Essential (primary) hypertension (3) Morbid obesity: Status: Acute Code(s): E66.01 - Morbid (severe) obesity due to excess calories (4) Factor 5 Leiden mutation, heterozygous: Status: Acute Code(s): D68.51 - Activated protein C resistance Greater than 50% of the session was spent on counseling and/or coordination of care Reason for contiued inpatient stay Substantial Risk for: inability to function
[2020-11-05] MEDS: traZODone HCL 50 MG TABLET 150 MG PO (20:07)
[2020-11-06] MEDS: Acetaminophen 325 MG TABLET 650 MG PO (00:28)
[2020-11-06] MEDS: Nicotine Polacrilex 2 MG GUM 4 MG BUCCAL (04:47)
[2020-11-06 06:00] VITALS: BP 129/72; PULSE 76; TEMP 35.9
[2020-11-06] MEDS: risperiDONE Oral Sol 1 MG/ML SOLUTION 3 MG PO ×2 (08:40→20:34)
[2020-11-06 08:41] VITALS: BP 129/72; PULSE 76
[2020-11-06] MEDS: clonazePAM 1 MG TABLET PO ×3 (08:41→20:35)
[2020-11-06] MEDS: atenoloL 50 MG TABLET PO (08:41)
[2020-11-06] MEDS: Divalproex Sodium Sprinkles 125 MG CAP.DR.SPR 500 MG PO ×2 (08:41→20:34)
[2020-11-06] MEDS: hydroCHLOROthiazide 25 MG TABLET PO (08:41)
[2020-11-06 12:20] VITALS: BMI 63.2
[2020-11-06 18:00] VITALS: BP 126/61; PULSE 84; RESP 18; TEMP 36.7; O2SAT 97
--- NOTE | 2020-11-06 19:15 | HO.PSYCHPN ---
Subjective Subjective Date of Service: 11/06/20 Reason For Visit: Acute Psychosis Interim History: Pt continues to present as labile, hyper sexual. Pt is with flight of ideas, complaining that hospital is using her because she is a medium. She reports seeing angels and sensing other people's energy. She denies SI/HI. Per nursing, pt not sleeping well. Oral medications at times she spits them. She is intrusive to peers/staff, innapropriate boundaries. Review of Systems Review of Systems Yes all other systems are reviewed and are negative Constitutional: Reports as per HPI and Reports no additional constitutional complaints Eyes: Reports as per HPI and Reports no additional eye complaints Reports system reviewed and no additional complaints, except as documented and Reports as per HPI Cardiovascular: Reports as per HPI, Reports no additional cardiovascular complaints, Denies chest pain, Denies Epigastric Pain and Denies dyspnea Respiratory: Reports as per HPI, Reports no additional respiratory complaints, Denies chest congestion and Denies dyspnea Gastrointestinal: Reports as per HPI, Reports no additional gastrointestinal complaints, Denies abdominal pain, Denies change in stool character, Denies constipation and Denies vomiting Musculoskeletal: Reports no additional musculoskeletal complaints and Reports as per HPI Reports system reviewed and no additional complaints, except as documented and Reports as per HPI Psychiatric: Reports no additional psychiatric complaints Mental Status Exam Mental Status Exam Narrative: Appearance: [place] woman, casually groomed, somewhat disheveled today, in NAD Behavior: guarded and suspicious Psychomotor: no agitation or retardation noted Speech: clear, normal rate but hyperverbal, spontaneous TP: tangential TC: suspiciousness about other taking 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 Diagnostics Vital Signs (24Hr): Vital Signs - 24 hr 11/06/20 06:00 11/06/20 08:41 11/06/20 18:00 Temperature 96.7 F L 98.0 F Pulse Rate 76 76 84 Respiratory Rate 18 Blood Pressure 129/72 129/72 126/61 Pulse Oximetry 97 Body Mass Index 63.2 Labs Results: 10/29/20 12:09 10/29/20 12:09 Imaging Radiology Impressions: ITS Impressions Chest X-Ray 10/12/20 01:44 IMPRESSION: No evidence for acute disease. Head CT 10/12/20 19:11 IMPRESSION: No acute intracranial pathology. Venous Duplex 10/29/20 02:12 IMPRESSION: No DVT demonstrated in the left lower extremity. Medications Medications Current Medications Generic Name Dose Route Start Last Admin Trade Name Freq PRN Reason Stop Dose Admin Acetaminophen 650 mg 10/14/20 22:36 11/06/20 00:28 Acetaminophen 325 Mg Tablet PO 650 mg Q6H PRN Administration Headache/Pain Mild Scale (1-3) Al Hydroxide/Mg Hydroxide 30 ml 10/14/20 22:36 Magnesium Hydrox/Alum Hydrox 30 Ml Oral.Susp PO Q6H PRN Heartburn/Nausea Atenolol 50 mg 10/12/20 09:00 11/06/20 08:41 Atenolol 50 Mg Tablet PO 50 mg DAILY [facility] Administration Protocol Benztropine Mesylate 1 mg 10/30/20 21:00 11/06/20 13:52 Benztropine Mesylate 2 Mg/2 Ml Vial IM Not Given BID [facility] Clonazepam 1 mg 11/02/20 11:45 11/06/20 15:23 Clonazepam 1 Mg Tablet PO 1 mg TID [facility] Administration Clotrimazole 1 appl 10/29/20 21:00 11/06/20 13:53 Clotrimazole 1 % Cream 15 Gm Tube TOPICAL Not Given BID [facility] Protocol Divalproex Sodium 500 mg 11/04/20 21:00 11/06/20 08:41 Divalproex Sodium Sprinkles 125 Mg Cap.DrJcSpr PO 500 mg BID [facility] Administration Haloperidol Lactate 5 mg 10/23/20 21:00 11/06/20 13:53 Haloperidol Lactate 5 Mg/Ml Vial IM Not Given BID [facility] Hydrochlorothiazide 25 mg 10/12/20 09:00 11/06/20 08:41 Hydrochlorothiazide 25 Mg Tablet PO 25 mg DAILY [facility] Administration Protocol Hydroxyzine HCl 25 mg 10/14/20 22:36 10/23/20 01:24 Hydroxyzine Hcl 25 Mg Tablet PO 25 mg Q4H PRN Administration mild Anxiety Magnesium Hydroxide 30 ml 10/14/20 22:36 Milk Of Magnesia 30 Ml Oral.Susp PO DAILY PRN Constipation Nicotine Polacrilex 4 mg 10/14/20 22:36 11/06/20 04:47 Nicotine Polacrilex 2 Mg Gum BUCCAL 4 mg Q2H PRN Administration Nicotine Cravings Risperidone 3 mg 10/31/20 21:00 11/06/20 08:40 Risperidone Oral Luly 1 Mg/Ml Solution PO 3 mg BID [facility] Administration Trazodone HCl 50 mg 10/14/20 22:36 10/27/20 00:35 Trazodone Hcl 50 Mg Tablet PO 50 mg BEDTIME PRN Administration Insomnia Trazodone HCl 150 mg 10/30/20 21:00 11/05/20 20:07 Trazodone Hcl 50 Mg Tablet PO 150 mg BEDTIME [facility] Administration Allergies Allergies Allergy/AdvReac Type Severity Reaction Status Date / Time kiwi [KIWI] Allergy Mild HIVES Verified 10/01/20 14:49 mold [MOLD EXTRACTS*] Allergy Mild HIVES Verified 10/01/20 14:49 Assessment & Plan Assessment & Plan (1) Bipolar affective, manic, severe: Status: Acute Code(s): F31.13 - Bipolar disorder, current episode manic without psychotic features, severe Assessment and Plan: 1. Continue risperidone to 3mg po BID- may switch to haldol as pt appeared more stable with haldol. 2. Increase trazodone to 150mg po qhs for sleep 3. Clonazepam 1mg po TID. 4. Re start depakote dr 500 mg po BID (2) Hypertension, essential: Status: Acute Code(s): I10 - Essential (primary) hypertension (3) Morbid obesity: Status: Acute Code(s): E66.01 - Morbid (severe) obesity due to excess calories (4) Factor 5 Leiden mutation, heterozygous: Status: Acute Code(s): D68.51 - Activated protein C resistance Greater than 50% of the session was spent on counseling and/or coordination of care Reason for contiued inpatient stay Substantial Risk for: inability to function
--- NOTE | 2020-11-06 19:36 | PC.NURSE ---
mood lability-patient called 911 and gave the police her sisters address to perform a wellness check. after calling police which staff was not aware of, asked staff to assist her in dialing her sisters #. while she was talking with her sister the police called the unit due to her calling and reported that they were going to check on her sister's residence. sister was informed of this. patient was later assisted in calling her father in which she frequently swore and was agitated. after phone call was distracted with a unit activity and mood then became more calm and affect brightened. due to calling police patient will require staff to dial phone for her. mother aware.
[2020-11-06] MEDS: traZODone HCL 50 MG TABLET 150 MG PO (20:35)
[2020-11-06] MEDS: Clotrimazole 1 % Cream 15 GM TUBE 1 APPL TOPICAL (21:42)
--- NOTE | 2020-11-07 04:16 | PC.NURSE ---
Pt went to bed after showering at approximately 00:00 and awoke at 0245. Pt appeared to be responding to internal stimuli as evidenced by engaging in self-dialogue and tapping patterns with hands/feet. Pt refused to get dressed in front of her roommate and threatened to wake her up. Pt needed redirection when turning on all of her bedroom lights and creating enough noise to wake up her roommate. Pt presented as delusional, asking where is baby yoda. Presented as hypersexual, stating that she recognized that her provider was sexually aroused when said provider observed her naked. Pt needed redirection from entering another pt's room and requested to call her sister on multiple occasions. Pt remained awake for remainder of shift.
[2020-11-07 06:00] VITALS: BP 134/86; PULSE 85; RESP 16; TEMP 36.8; O2SAT 98
[2020-11-07] MEDS: risperiDONE Oral Sol 1 MG/ML SOLUTION 3 MG PO (08:57)
[2020-11-07 08:58] VITALS: BP 140/82; PULSE 84
[2020-11-07] MEDS: clonazePAM 1 MG TABLET PO ×3 (08:58→20:27)
[2020-11-07] MEDS: atenoloL 50 MG TABLET PO (08:58)
[2020-11-07] MEDS: hydroCHLOROthiazide 25 MG TABLET PO (08:58)
[2020-11-07] MEDS: Clotrimazole 1 % Cream 15 GM TUBE 1 APPL TOPICAL ×2 (09:20→20:52)
[2020-11-07] MEDS: Benztropine Mesylate 2 MG/2 ML VIAL 1 MG IM (11:41)
[2020-11-07] MEDS: LORazepam 2 MG/ML VIAL IM (11:42)
[2020-11-07] MEDS: Haloperidol Lactate 5 MG/ML VIAL IM (11:43)
[2020-11-07 12:50] LABS: HCG Quantitative < 2 mIU/mL
--- NOTE | 2020-11-07 13:00 | PM.IMCN ---
History of Present Illness Data of Consult Service Date: 11/07/20 Requesting physician: Anny Rodas Primary Care Provider: Jose Estes MD [facility] Reason for consult: Leg edema This is a 30-year-old female admitted to for management of acute psychosis. She has been admitted since October 15. Hospitalist consultation was requested due to lower extremity edema. She underwent left lower extremity DVT study 10/29 which showed no evidence of DVT. She reports pain with a severity of 200/10 on the left and 150/10 on the right. Due to underlying psychiatric issues it is difficult to ascertain a clear history and the duration of the swelling but seems mostly chronic. She does report a history of leg edema and has used compression stockings in the past. She reports multiple falls but is currently on a one-to-one who denies any falls or trauma. There has been no documented fever. The patient is requesting for repeat ultrasound to rule out DVT. Review of Systems Review of Systems: leg edema Yes all other systems are reviewed and are negative Constitutional: Constitutional: Denies chills and Denies fever(s) Cardiovascular: Cardiovascular: Denies chest pain Respiratory: Respiratory: Denies cough PMFSH Medical History (Updated 11/07/20 @ 13:43 by ELIGIO Rawls) Asthma Factor 5 Leiden mutation, heterozygous Hypertension, essential Obesity, morbid Seasonal asthma Family History Father HTN (hypertension) Diabetes mellitus Mother Afib Maternal Grandfather No problems noted. Maternal Grandmother No problems noted. Paternal Grandmother Breast cancer Paternal Grandfather No problems noted. Sister No problems noted. Surgical History History of ovarian cyst History of wisdom tooth extraction Social History Household Members: Family Housing: House Do you presently have visiting nurse or other home services: No Alcohol intake: never Smoking Status: Never smoker Tobacco Type: Cigarette Smoked in Last 30 Days: No Patient Interested in Nicotine Replacement: No Patient Given Instructions on How to Stop Smoking: No Second Hand Smoke Exposure: No Use of substances other than those prescribed or required for medical reasons: No Currently Displaying Signs/Symptoms of Drug Intoxication Withdrawal: No Any prior treatment program specific to substance use: No Advance Directives: No Advance Directives Information Provided: No Do you have thoughts of harming others: None Do you have a plan to hurt others: No Plan Recently lost weight without trying: Unsure service: No Sexual orientation: Don't Know Meds Allergies Allergy/AdvReac Type Severity Reaction Status Date / Time kiwi [KIWI] Allergy Mild HIVES Verified 10/01/20 14:49 mold [MOLD EXTRACTS*] Allergy Mild HIVES Verified 10/01/20 14:49 Active Medications: Current Medications Generic Name Dose Route Start Last Admin Trade Name Freq PRN Reason Stop Dose Admin Acetaminophen 650 mg 10/14/20 22:36 11/06/20 00:28 Acetaminophen 325 Mg Tablet PO 650 mg Q6H PRN Administration Headache/Pain Mild Scale (1-3) Al Hydroxide/Mg Hydroxide 30 ml 10/14/20 22:36 Magnesium Hydrox/Alum Hydrox 30 Ml Oral.Susp PO Q6H PRN Heartburn/Nausea Atenolol 50 mg 10/12/20 09:00 11/07/20 08:58 Atenolol 50 Mg Tablet PO 50 mg DAILY INOCENCIO Administration Protocol Benztropine Mesylate 1 mg 10/30/20 21:00 11/07/20 11:41 Benztropine Mesylate 2 Mg/2 Ml Vial IM 1 mg BID INOCENCIO Administration Benztropine Mesylate 1 mg 11/07/20 10:16 Benztropine Mesylate 1 Mg Tablet PO BID PRN Extrapyramidal Effects Clonazepam 1 mg 11/02/20 11:45 11/07/20 08:58 Clonazepam 1 Mg Tablet PO 1 mg TID INOCENCIO Administration Clotrimazole 1 appl 10/29/20 21:00 11/07/20 09:20 Clotrimazole 1 % Cream 15 Gm Tube TOPICAL 1 appl BID INOCENCIO Administration Protocol Divalproex Sodium 500 mg 11/04/20 21:00 11/07/20 09:15 Divalproex Sodium Sprinkles 125 Mg Cap.Spr PO Not Given BID INOCENCIO Haloperidol 5 mg 11/07/20 10:15 11/07/20 11:44 Haloperidol 5 Mg Tablet PO Not Given BID INOCENCIO Haloperidol Lactate 5 mg 10/23/20 21:00 11/07/20 11:43 Haloperidol Lactate 5 Mg/Ml Vial IM 5 mg BID INOCENCIO Administration Hydrochlorothiazide 25 mg 10/12/20 09:00 11/07/20 08:58 Hydrochlorothiazide 25 Mg Tablet PO 25 mg DAILY INOCENCIO Administration Protocol Hydroxyzine HCl 25 mg 10/14/20 22:36 10/23/20 01:24 Hydroxyzine Hcl 25 Mg Tablet PO 25 mg Q4H PRN Administration mild Anxiety Magnesium Hydroxide 30 ml 10/14/20 22:36 Milk Of Magnesia 30 Ml Oral.Susp PO DAILY PRN Constipation Nicotine Polacrilex 4 mg 10/14/20 22:36 11/06/20 04:47 Nicotine Polacrilex 2 Mg Gum BUCCAL 4 mg Q2H PRN Administration Nicotine Cravings Trazodone HCl 50 mg 10/14/20 22:36 10/27/20 00:35 Trazodone Hcl 50 Mg Tablet PO 50 mg BEDTIME PRN Administration Insomnia Trazodone HCl 150 mg 10/30/20 21:00 11/06/20 20:35 Trazodone Hcl 50 Mg Tablet PO 150 mg BEDTIME INOCENCIO Administration Physical Exam Vital Signs and Narrative: Vital Signs: Last Vital Signs Temp 98.2 F 11/07/20 06:00 Pulse 84 11/07/20 08:58 Resp 16 11/07/20 06:00 BP 140/82 H 11/07/20 08:58 Pulse Ox 98 11/07/20 06:00 Body Mass Index 63.2 Const: General: comfortable, alert and awake Nutritional Appearance: obese morbidly obese HENMT: Head: Yes normocephalic and Yes atraumatic Eyes: Sclerae: sclerae normal Chest: Chest palpation & inspection: normal inspection of the chest Resp: Effort & Inspection: normal respiratory effort and no respiratory distress GI: Palpation (GI): Soft to palpation Neuro: Cranial nerves: Yes CN's II-XII intact bilaterally and Yes Bilaterally intact EOM present Extrem: Other: b/l non-pitting edema; symmetrical. mild tenderness posterior left calf and left foot. slight warmth left lower leg, no significant erythema Results Labs CBC and Chem 7: 10/29/20 12:09 10/29/20 12:09 Labs: Laboratory Results - last 24 hr 11/07/20 12:03 Beta HCG, Quant < 2 Assessment and Plan (1) Leg edema: Status: Acute This is a 30-year-old female with history of hypertension, asthma, factor 5 Leiden deficiency, morbid obesity with BMI 63.2 admitted to for acute psychosis found to have leg edema Leg edema Likely chronic in nature In the setting of morbid obesity -b/l doppler to r/o DVT -left foot xray -compression stocking if able to tolerate -keep legs elevated when able thank you for allowing us to participate in the care of this patient. This case was discussed with Dr. Gates
[2020-11-07 16:50] VITALS: BP 137/73; PULSE 87; TEMP 37.2; O2SAT 100
--- NOTE | 2020-11-07 17:15 | HO.PSYCHPN ---
Subjective Subjective Date of Service: 11/08/20 Reason For Visit: Acute Psychosis Interim History: Pt continues to present as labile, reporting seeing angels at night. She has also been somatically preoccupied asking for IV, and multiple medical tests. Pt this morning called police asking them to do wellness check on his sister. Per nursing, pt mostly awake at night. intrusive with peers, displaying hyper sexualized behaviors, at same time that she is accusing male staff of wanting to touch her inappropriately. Review of Systems Review of Systems leg edema Yes all other systems are reviewed and are negative Constitutional: Reports as per HPI, Reports no additional constitutional complaints, Denies chills and Denies fever(s) Eyes: Reports as per HPI and Reports no additional eye complaints Reports system reviewed and no additional complaints, except as documented and Reports as per HPI Cardiovascular: Reports as per HPI, Reports no additional cardiovascular complaints, Denies chest pain, Denies Epigastric Pain and Denies dyspnea Respiratory: Reports as per HPI, Reports no additional respiratory complaints, Denies chest congestion, Denies cough and Denies dyspnea Gastrointestinal: Reports as per HPI, Reports no additional gastrointestinal complaints, Denies abdominal pain, Denies change in stool character, Denies constipation and Denies vomiting Musculoskeletal: Reports no additional musculoskeletal complaints and Reports as per HPI Reports system reviewed and no additional complaints, except as documented and Reports as per HPI Psychiatric: Reports no additional psychiatric complaints Mental Status Exam Mental Status Exam Narrative: Appearance: [place] woman, casually groomed, somewhat disheveled today, in NAD Behavior: guarded and suspicious Psychomotor: no agitation or retardation noted Speech: clear, normal rate but hyperverbal, spontaneous TP: tangential TC: suspiciousness about other taking 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 Diagnostics Vital Signs (24Hr): Vital Signs - 24 hr 11/06/20 18:00 11/07/20 06:00 11/07/20 08:58 Temperature 98.0 F 98.2 F Pulse Rate 84 85 84 Respiratory Rate 18 16 Blood Pressure 126/61 134/86 140/82 H Pulse Oximetry 97 98 Body Mass Index 63.2 Labs Results: 10/29/20 12:09 10/29/20 12:09 Labs: Laboratory Results - last 48 hr 11/07/20 12:03 Beta HCG, Quant < 2 Imaging Radiology Impressions: ITS Impressions Chest X-Ray 10/12/20 01:44 IMPRESSION: No evidence for acute disease. Head CT 10/12/20 19:11 IMPRESSION: No acute intracranial pathology. Venous Duplex 10/29/20 02:12 IMPRESSION: No DVT demonstrated in the left lower extremity. Foot X-Ray 11/07/20 13:45 IMPRESSION: Arthritis at the first MTP joint and calcaneal spurs. Venous Duplex 11/07/20 14:20 IMPRESSION: No DVT demonstrated in the bilateral lower extremity. Medications Medications Current Medications Generic Name Dose Route Start Last Admin Trade Name Freq PRN Reason Stop Dose Admin Acetaminophen 650 mg 10/14/20 22:36 11/06/20 00:28 Acetaminophen 325 Mg Tablet PO 650 mg Q6H PRN Administration Headache/Pain Mild Scale (1-3) Al Hydroxide/Mg Hydroxide 30 ml 10/14/20 22:36 Magnesium Hydrox/Alum Hydrox 30 Ml Oral.Susp PO Q6H PRN Heartburn/Nausea Atenolol 50 mg 10/12/20 09:00 11/07/20 08:58 Atenolol 50 Mg Tablet PO 50 mg DAILY INOCENCIO Administration Protocol Benztropine Mesylate 1 mg 10/30/20 21:00 11/07/20 11:41 Benztropine Mesylate 2 Mg/2 Ml Vial IM 1 mg BID INOCENCIO Administration Benztropine Mesylate 1 mg 11/07/20 10:16 Benztropine Mesylate 1 Mg Tablet PO BID PRN Extrapyramidal Effects Clonazepam 1 mg 11/02/20 11:45 11/07/20 16:38 Clonazepam 1 Mg Tablet PO 1 mg TID INOCENCIO Administration Clotrimazole 1 appl 10/29/20 21:00 11/07/20 09:20 Clotrimazole 1 % Cream 15 Gm Tube TOPICAL 1 appl BID INOCENCIO Administration Protocol Divalproex Sodium 500 mg 11/04/20 21:00 11/07/20 09:15 Divalproex Sodium Sprinkles 125 Mg PO Not Given BID INOCENCIO Haloperidol 10 mg 11/07/20 21:00 Haloperidol 5 Mg Tablet PO BEDTIME INOCENCIO Haloperidol 5 mg 11/08/20 09:00 Haloperidol 5 Mg Tablet PO DAILY INOCENCIO Haloperidol Lactate 10 mg 11/07/20 21:00 Haloperidol Lactate 5 Mg/Ml Vial IM BEDTIME INOCENCIO Haloperidol Lactate 5 mg 11/08/20 09:00 Haloperidol Lactate 5 Mg/Ml Vial IM DAILY INOCENCIO Hydrochlorothiazide 25 mg 10/12/20 09:00 11/07/20 08:58 Hydrochlorothiazide 25 Mg Tablet PO 25 mg DAILY INOCENCIO Administration Protocol Hydroxyzine HCl 25 mg 10/14/20 22:36 10/23/20 01:24 Hydroxyzine Hcl 25 Mg Tablet PO 25 mg Q4H PRN Administration mild Anxiety Magnesium Hydroxide 30 ml 10/14/20 22:36 Milk Of Magnesia 30 Ml Oral.Susp PO DAILY PRN Constipation Nicotine Polacrilex 4 mg 10/14/20 22:36 11/06/20 04:47 Nicotine Polacrilex 2 Mg Gum BUCCAL 4 mg Q2H PRN Administration Nicotine Cravings Trazodone HCl 50 mg 10/14/20 22:36 10/27/20 00:35 Trazodone Hcl 50 Mg Tablet PO 50 mg BEDTIME PRN Administration Insomnia Trazodone HCl 150 mg 10/30/20 21:00 11/06/20 20:35 Trazodone Hcl 50 Mg Tablet PO 150 mg BEDTIME INOCENCIO Administration Allergies Allergies Allergy/AdvReac Type Severity Reaction Status Date / Time kiwi [KIWI] Allergy Mild HIVES Verified 10/01/20 14:49 mold [MOLD EXTRACTS*] Allergy Mild HIVES Verified 10/01/20 14:49 Assessment & Plan Assessment & Plan (1) Leg edema: Status: Acute Code(s): R60.0 - Localized edema (2) Bipolar affective, manic, severe: Status: Acute Code(s): F31.13 - Bipolar disorder, current episode manic without psychotic features, severe Assessment and Plan: 1. Switch risperidone to haldol as pt appeared to respond to this medication better. Increase haldol to 5mg po daily and 10mg po qhs with back up IM haldol per civil commitment. 2. Continue depakote 500mg po BID Greater than 50% of the session was spent on counseling and/or coordination of care Reason for contiued inpatient stay Substantial Risk for: inability to function
[2020-11-07] MEDS: traZODone HCL 50 MG TABLET 150 MG PO (20:28)
[2020-11-07] MEDS: HaloperidoL 5 MG TABLET 10 MG PO (20:28)
--- NOTE | 2020-11-08 07:00 | PM.EVENT ---
Event Note Date of Service: 11/08/20 Event Note: CC: bilateral lower extremioty swelling likely venous insufficiency from morbid obesity repeat bilateral LE duplex negative for DVT, foot xray with arthritis at 1st MTP due to obesity, no evidence of fracture recommend local compression and weight loss
[2020-11-08] MEDS: hydroCHLOROthiazide 25 MG TABLET PO (08:38)
[2020-11-08] MEDS: clonazePAM 1 MG TABLET PO ×3 (08:38→22:07)
[2020-11-08] MEDS: atenoloL 50 MG TABLET PO (08:39)
[2020-11-08 08:41] VITALS: BP 130/84; RESP 16
[2020-11-08] MEDS: HaloperidoL 5 MG TABLET PO (09:27)
--- NOTE | 2020-11-08 14:31 | P.PNPSI_ITS ---
Subjective Subjective Date of Service: 11/09/20 Reason For Visit: Acute Psychosis Subjective Notes: Barrera Order and Section 8 Interim History: Pt on 1.1 restless illogical tangential paranoid concerns grandisoe hypersexual at times Medication Compliance: Intermittent Side effects from medications: Yes Attending Groups: No Review of Systems Review of Systems c/o vague abd pain Mental Status Exam Mental Status Exam Narrative: Appearance: [place] woman, casually groomed, somewhat disheveled today, in NAD Behavior: guarded and suspicious Psychomotor: no agitation or retardation noted Speech: clear, normal rate but hyperverbal, spontaneous TP: tangential TC: suspiciousness about other taking 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 Diagnostics Vital Signs (24Hr): Vital Signs - 24 hr 11/07/20 16:50 11/08/20 08:41 Temperature 98.9 F Pulse Rate 87 Respiratory Rate 16 Blood Pressure 137/73 130/84 Pulse Oximetry 100 Body Mass Index 63.2 Labs Results: 10/29/20 12:09 10/29/20 12:09 Labs: Laboratory Results - last 48 hr 11/07/20 11/07/20 12:03 19:06 Beta HCG, Quant < 2 Serum Copper Cancelled Imaging Radiology Impressions: ITS Impressions Chest X-Ray 10/12/20 01:44 IMPRESSION: No evidence for acute disease. Head CT 10/12/20 19:11 IMPRESSION: No acute intracranial pathology. Venous Duplex 10/29/20 02:12 IMPRESSION: No DVT demonstrated in the left lower extremity. Foot X-Ray 11/07/20 13:45 IMPRESSION: Arthritis at the first MTP joint and calcaneal spurs. Venous Duplex 11/07/20 14:20 IMPRESSION: No DVT demonstrated in the bilateral lower extremity. Medications Medications Current Medications Generic Name Dose Route Start Last Admin Trade Name Freq PRN Reason Stop Dose Admin Acetaminophen 650 mg 10/14/20 22:36 11/06/20 00:28 Acetaminophen 325 Mg Tablet PO 650 mg Q6H PRN Administration Headache/Pain Mild Scale (1-3) Al Hydroxide/Mg Hydroxide 30 ml 10/14/20 22:36 Magnesium Hydrox/Alum Hydrox 30 Ml Oral.Susp PO Q6H PRN Heartburn/Nausea Atenolol 50 mg 10/12/20 09:00 11/08/20 08:39 Atenolol 50 Mg Tablet PO 50 mg DAILY INOCENCIO Administration Protocol Benztropine Mesylate 1 mg 10/30/20 21:00 11/08/20 09:35 Benztropine Mesylate 2 Mg/2 Ml Vial IM Not Given BID INOCENCIO Benztropine Mesylate 1 mg 11/07/20 10:16 Benztropine Mesylate 1 Mg Tablet PO BID PRN Extrapyramidal Effects Clonazepam 1 mg 11/02/20 11:45 11/08/20 08:38 Clonazepam 1 Mg Tablet PO 1 mg TID INOCENCIO Administration Clotrimazole 1 appl 10/29/20 21:00 11/07/20 20:52 Clotrimazole 1 % Cream 15 Gm Tube TOPICAL 1 appl BID INOCENCIO Administration Protocol Divalproex Sodium 500 mg 11/04/20 21:00 11/08/20 09:35 Divalproex Sodium Sprinkles 125 Mg Cap.Dr.Spr PO Not Given BID INOCENCIO Haloperidol 10 mg 11/07/20 21:00 11/07/20 20:28 Haloperidol 5 Mg Tablet PO 10 mg BEDTIME INOCENCIO Administration Haloperidol 5 mg 11/08/20 09:00 11/08/20 09:27 Haloperidol 5 Mg Tablet PO 5 mg DAILY INOCENCIO Administration Haloperidol Lactate 10 mg 11/07/20 21:00 11/07/20 20:49 Haloperidol Lactate 5 Mg/Ml Vial IM Not Given BEDTIME INOCENCIO Haloperidol Lactate 5 mg 11/08/20 09:00 11/08/20 09:35 Haloperidol Lactate 5 Mg/Ml Vial IM Not Given DAILY [facility] Hydrochlorothiazide 25 mg 10/12/20 09:00 11/08/20 08:38 Hydrochlorothiazide 25 Mg Tablet PO 25 mg DAILY INOCENCIO Administration Protocol Hydroxyzine HCl 25 mg 10/14/20 22:36 10/23/20 01:24 Hydroxyzine Hcl 25 Mg Tablet PO 25 mg Q4H PRN Administration mild Anxiety Magnesium Hydroxide 30 ml 10/14/20 22:36 Milk Of Magnesia 30 Ml Oral.Susp PO DAILY PRN Constipation Nicotine Polacrilex 4 mg 10/14/20 22:36 11/06/20 04:47 Nicotine Polacrilex 2 Mg Gum BUCCAL 4 mg Q2H PRN Administration Nicotine Cravings Trazodone HCl 50 mg 10/14/20 22:36 10/27/20 00:35 Trazodone Hcl 50 Mg Tablet PO 50 mg BEDTIME PRN Administration Insomnia Trazodone HCl 150 mg 10/30/20 21:00 11/07/20 20:28 Trazodone Hcl 50 Mg Tablet PO 150 mg BEDTIME INOCENCIO Administration Allergies Allergies Allergy/AdvReac Type Severity Reaction Status Date / Time kiwi [KIWI] Allergy Mild HIVES Verified 10/01/20 14:49 mold [MOLD EXTRACTS*] Allergy Mild HIVES Verified 10/01/20 14:49 Assessment & Plan Assessment & Plan (1) Leg edema: Status: Acute Code(s): R60.0 - Localized edema (2) Bipolar affective, manic, severe: Status: Acute Code(s): F31.13 - Bipolar disorder, current episode manic without psychotic features, severe (3) Morbid obesity: Status: Acute Code(s): E66.01 - Morbid (severe) obesity due to excess calories (4) Acute post-traumatic stress disorder: Status: Acute Code(s): F43.11 - Post-traumatic stress disorder, acute Assessment and Plan: cont haldol im as needed med tests reviewed no acute findings encourage depakote family education remains psychotic case reviewed extensively neetu garcia Greater than 50% of the session was spent on counseling and/or coordination of care Reason for contiued inpatient stay Substantial Risk for: inability to function and rapid decompensation
[2020-11-08] MEDS: hydrOXYzine HCL 25 MG TABLET PO (16:03)
[2020-11-08 16:45] VITALS: BP 131/64; PULSE 77; TEMP 36.5
[2020-11-08] MEDS: HaloperidoL 5 MG TABLET 10 MG PO (22:07)
[2020-11-08] MEDS: traZODone HCL 50 MG TABLET 150 MG PO (22:07)
[2020-11-08] MEDS: Clotrimazole 1 % Cream 15 GM TUBE 1 APPL TOPICAL (22:09)
[2020-11-09 01:55] VITALS: BP 122/63; PULSE 79; RESP 16; TEMP 36.5; O2SAT 96
[2020-11-09 06:00] VITALS: BP 152/74; PULSE 75; RESP 18; TEMP 37; O2SAT 100
[2020-11-09 08:35] VITALS: BP 144/81; PULSE 89; RESP 20; TEMP 36.8; O2SAT 97
[2020-11-09] MEDS: clonazePAM 1 MG TABLET PO ×2 (08:56→16:50)
[2020-11-09 08:57] VITALS: BP 144/81; PULSE 89
[2020-11-09] MEDS: atenoloL 50 MG TABLET PO (08:57)
[2020-11-09] MEDS: hydroCHLOROthiazide 25 MG TABLET PO (08:57)
[2020-11-09] MEDS: Haloperidol Lactate 5 MG/ML VIAL IM (09:02)
[2020-11-09] MEDS: Benztropine Mesylate 2 MG/2 ML VIAL 1 MG IM (09:02)
--- NOTE | 2020-11-09 11:51 | HO.PSYCHPN ---
Subjective Subjective Date of Service: 11/09/20 Reason For Visit: Acute Psychosis Subjective Notes: Barrera Order and Section 8 Interim History: Patient with flight of ideas remains on one-to-one hypersexual at times grossly delusional disorganized refusing Depakote Medication Compliance: Intermittent Mental Status Exam Mental Status Exam Patient Appearance: Unkempt Patient Orientation: Person and Place Level of Consciousness: Awake Patient Behavior: Talkative, Hypersexual and Restless Mood Description: Suspicious, Anxious and Labile Affect Description: Suspicious, Labile, Angry and Apprehensive Ability to Follow Directions: Fair Speech Pattern: Perseverating and Pressured Memory Description: Episodic Impaired Hallucinations: Auditory Delusions: Grandiose Thought Process: Illogical Thought Content: positive for Tangential, negative for Suicidal Ideation and negative for Homicidal Ideation Depressive Symptoms: Increased Anxiety Judgement: Poor Diagnostics Vital Signs (24Hr): Vital Signs - 24 hr 11/08/20 16:45 11/09/20 01:55 11/09/20 06:00 Temperature 97.7 F 97.7 F 98.6 F Pulse Rate 77 79 75 Respiratory Rate 16 18 Blood Pressure 131/64 122/63 152/74 H Pulse Oximetry 96 100 11/09/20 08:35 11/09/20 08:57 Temperature 98.2 F Pulse Rate 89 89 Respiratory Rate 20 Blood Pressure 144/81 H 144/81 H Pulse Oximetry 97 Body Mass Index 63.2 Labs Results: 10/29/20 12:09 10/29/20 12:09 Labs: Laboratory Results - last 48 hr 11/07/20 11/07/20 12:03 19:06 Beta HCG, Quant < 2 Serum Copper Cancelled Imaging Radiology Impressions: ITS Impressions Chest X-Ray 10/12/20 01:44 IMPRESSION: No evidence for acute disease. Head CT 10/12/20 19:11 IMPRESSION: No acute intracranial pathology. Venous Duplex 10/29/20 02:12 IMPRESSION: No DVT demonstrated in the left lower extremity. Foot X-Ray 11/07/20 13:45 IMPRESSION: Arthritis at the first MTP joint and calcaneal spurs. Venous Duplex 11/07/20 14:20 IMPRESSION: No DVT demonstrated in the bilateral lower extremity. Medications Medications Current Medications Generic Name Dose Route Start Last Admin Trade Name Freq PRN Reason Stop Dose Admin Acetaminophen 650 mg 10/14/20 22:36 11/06/20 00:28 Acetaminophen 325 Mg Tablet PO 650 mg Q6H PRN Administration Headache/Pain Mild Scale (1-3) Al Hydroxide/Mg Hydroxide 30 ml 10/14/20 22:36 Magnesium Hydrox/Alum Hydrox 30 Ml Oral.Susp PO Q6H PRN Heartburn/Nausea Atenolol 50 mg 10/12/20 09:00 11/09/20 08:57 Atenolol 50 Mg Tablet PO 50 mg DAILY INOCENCIO Administration Protocol Benztropine Mesylate 1 mg 10/30/20 21:00 11/09/20 09:02 Benztropine Mesylate 2 Mg/2 Ml Vial IM 1 mg BID INOCENCIO Administration Benztropine Mesylate 1 mg 11/07/20 10:16 Benztropine Mesylate 1 Mg Tablet PO BID PRN Extrapyramidal Effects Clonazepam 2 mg 11/09/20 21:00 Clonazepam 1 Mg Tablet PO BEDTIME INOCENCIO Clonazepam 1 mg 11/10/20 09:00 Clonazepam 1 Mg Tablet PO DAILY [facility] Clotrimazole 1 appl 10/29/20 21:00 11/09/20 09:44 Clotrimazole 1 % Cream 15 Gm Tube TOPICAL Not Given BID [facility] Protocol Haloperidol 10 mg 11/07/20 21:00 11/08/20 22:07 Haloperidol 5 Mg Tablet PO 10 mg BEDTIME INOCENCIO Administration Haloperidol 5 mg 11/08/20 09:00 11/09/20 09:02 Haloperidol 5 Mg Tablet PO Not Given DAILY INOCENCIO Haloperidol Lactate 10 mg 11/07/20 21:00 11/09/20 00:29 Haloperidol Lactate 5 Mg/Ml Vial IM Not Given BEDTIME INOCENCIO Haloperidol Lactate 5 mg 11/08/20 09:00 11/09/20 09:02 Haloperidol Lactate 5 Mg/Ml Vial IM 5 mg DAILY INOCENCIO Administration Hydrochlorothiazide 25 mg 10/12/20 09:00 11/09/20 08:57 Hydrochlorothiazide 25 Mg Tablet PO 25 mg DAILY INOCENCIO Administration Protocol Hydroxyzine HCl 25 mg 10/14/20 22:36 11/08/20 16:03 Hydroxyzine Hcl 25 Mg Tablet PO 25 mg Q4H PRN Administration mild Anxiety Magnesium Hydroxide 30 ml 10/14/20 22:36 Milk Of Magnesia 30 Ml Oral.Susp PO DAILY PRN Constipation Nicotine Polacrilex 4 mg 10/14/20 22:36 11/06/20 04:47 Nicotine Polacrilex 2 Mg Gum BUCCAL 4 mg Q2H PRN Administration Nicotine Cravings Trazodone HCl 50 mg 10/14/20 22:36 10/27/20 00:35 Trazodone Hcl 50 Mg Tablet PO 50 mg BEDTIME PRN Administration Insomnia Trazodone HCl 150 mg 10/30/20 21:00 11/08/20 22:07 Trazodone Hcl 50 Mg Tablet PO 150 mg BEDTIME INOCENCIO Administration Valproic Acid 250 mg 11/09/20 15:00 Valproic Acid (As Sodium Salt) 250 Mg/5 Ml Solution PO TID INOCENCIO Allergies Allergies Allergy/AdvReac Type Severity Reaction Status Date / Time kiwi [KIWI] Allergy Mild HIVES Verified 10/01/20 14:49 mold [MOLD EXTRACTS*] Allergy Mild HIVES Verified 10/01/20 14:49 Assessment & Plan Assessment & Plan (1) Bipolar affective, manic, severe: Status: Acute Code(s): F31.13 - Bipolar disorder, current episode manic without psychotic features, severe Assessment and Plan: inc haldol encourage depakote inc klonapin pt remains disorganized Greater than 50% of the session was spent on counseling and/or coordination of care Reason for contiued inpatient stay Substantial Risk for: inability to function and rapid decompensation
[2020-11-09] MEDS: hydrOXYzine HCL 25 MG TABLET PO (14:01)
--- NOTE | 2020-11-09 14:14 | PC.NURSE ---
Patients father visited in the group room. Father very supportive encouraging patient to take her medications and follow the treatment plan.
--- NOTE | 2020-11-09 14:53 | PC.NURSE ---
Patients mother called for an update. Mother hyperverbal and pressured. Happy her daughter had a staff with her on constant observation. She is now a lab rat owened by the state. She was unhappy with her daughter being on haldol and not getting better. I hope the Nurse Practitioner calls me with an update tomorrow,I leave messages all the time.T/W reassured Mother and will leave a voice message with Anny Eason
[2020-11-09 16:50] VITALS: BP 134/66; PULSE 76; TEMP 36.5
[2020-11-09] MEDS: traZODone HCL 50 MG TABLET 150 MG PO (21:59)
[2020-11-09] MEDS: Benztropine Mesylate 1 MG TABLET PO (22:00)
[2020-11-09] MEDS: clonazePAM 1 MG TABLET 2 MG PO (22:00)
[2020-11-09] MEDS: HaloperidoL 5 MG TABLET 10 MG PO (22:00)
[2020-11-09] MEDS: Clotrimazole 1 % Cream 15 GM TUBE 1 APPL TOPICAL (22:16)
[2020-11-10 05:15] VITALS: BP 130/62; PULSE 76; RESP 18; TEMP 36; O2SAT 95
[2020-11-10 05:45] VITALS: BP 143/88; PULSE 75; RESP 18
--- NOTE | 2020-11-10 05:55 | PC.NURSE ---
PT awake at 0450. I need a transfer to [facility] now. I need a Medicare helicopter now. I have a cyst on my ovary. Pt sat on the floor an stated that she could not stand. After several minutes pt stood without assistance. Pt yelled and called staff a stupid bitch. Pt continued to exhibit hostility and raised her fist, threatening to punch staff. Attempted to enter another pt's room. Presented as confused: My sister's in here. Engaged in repetitive foot and hand tapping. Pt presented as delusional, angry, and malodorous. One-to-one support successful in deescalation and pt able to void and eat independently. Refused PRN medication. Will continue to monitor, report, and treat per treatment protocol.
[2020-11-10] MEDS: Benztropine Mesylate 2 MG/2 ML VIAL 1 MG IM (09:30)
[2020-11-10] MEDS: Haloperidol Lactate 5 MG/ML VIAL IM (09:31)
[2020-11-10 10:12] VITALS: BP 132/64; PULSE 82
[2020-11-10] MEDS: atenoloL 50 MG TABLET PO (10:12)
[2020-11-10] MEDS: hydroCHLOROthiazide 25 MG TABLET PO (10:13)
[2020-11-10] MEDS: clonazePAM 1 MG TABLET PO (10:13)
--- NOTE | 2020-11-10 13:59 | P.PNPSI_ITS ---
Subjective Subjective Date of Service: 11/10/20 Reason For Visit: Acute Psychosis Interim History: Zeinab continues to present as labile, hypersexual. Today, she states I'm not suicidal, not depressed, let me move these chair and I'll show you I have the body-mind connection, I can go home now. Pt with poor attention, then asking to do yoga on the floor. She continues to put herself on the floor and when asked to get up on her own pt reports she is being body shamed. She denies SI/HI. She continues to refuse depakote, and at times oral haldol but receives back haldol IM. She did sleep last night about 6-7hrs. Review of Systems Review of Systems c/o vague abd pain Yes all other systems are reviewed and are negative Constitutional: Reports as per HPI, Reports no additional constitutional c omplaints, Denies chills and Denies fever(s) Eyes: Reports as per HPI and Reports no additional eye complaints Reports system reviewed and no additional complaints, except as documented and Reports as per HPI Cardiovascular: Reports as per HPI, Reports no additional cardiovascular complaints, Denies chest pain, Denies Epigastric Pain and Denies dyspnea Respiratory: Reports as per HPI, Reports no additional respiratory complaints, Denies chest congestion, Denies cough and Denies dyspnea Gastrointestinal: Reports as per HPI, Reports no additional gastrointestinal complaints, Denies abdominal pain, Denies change in stool character, Denies constipation and Denies vomiting Musculoskeletal: Reports no additional musculoskeletal complaints and Reports as per HPI Reports system reviewed and no additional complaints, except as documented and Reports as per HPI Psychiatric: Reports no additional psychiatric complaints Mental Status Exam Mental Status Exam Narrative: Appearance: [place] woman, casually groomed, somewhat disheveled today, in NAD Behavior: guarded and suspicious Psychomotor: no agitation or retardation noted Speech: clear, normal rate but hyperverbal, spontaneous TP: tangential TC: suspiciousness about other taking 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 Diagnostics Vital Signs (24Hr): Vital Signs - 24 hr 11/09/20 16:50 11/10/20 05:15 11/10/20 05:45 Temperature 97.7 F 96.8 F Pulse Rate 76 76 75 Respiratory Rate 18 18 Blood Pressure 134/66 130/62 143/88 H Pulse Oximetry 95 11/10/20 10:12 Temperature Pulse Rate 82 Respiratory Rate Blood Pressure 132/64 Pulse Oximetry Body Mass Index 63.2 Labs Results: 10/29/20 12:09 10/29/20 12:09 Imaging Radiology Impressions: ITS Impressions Chest X-Ray 10/12/20 01:44 IMPRESSION: No evidence for acute disease. Head CT 10/12/20 19:11 IMPRESSION: No acute intracranial pathology. Venous Duplex 10/29/20 02:12 IMPRESSION: No DVT demonstrated in the left lower extremity. Foot X-Ray 11/07/20 13:45 IMPRESSION: Arthritis at the first MTP joint and calcaneal spurs. Venous Duplex 11/07/20 14:20 IMPRESSION: No DVT demonstrated in the bilateral lower extremity. Medications Medications Current Medications Generic Name Dose Route Start Last Admin Trade Name Freq PRN Reason Stop Dose Admin Acetaminophen 650 mg 10/14/20 22:36 11/06/20 00:28 Acetaminophen 325 Mg Tablet PO 650 mg Q6H PRN Administration Headache/Pain Mild Scale (1-3) Al Hydroxide/Mg Hydroxide 30 ml 10/14/20 22:36 Magnesium Hydrox/Alum Hydrox 30 Ml Oral.Susp PO Q6H PRN Heartburn/Nausea Atenolol 50 mg 10/12/20 09:00 11/10/20 10:12 Atenolol 50 Mg Tablet PO 50 mg DAILY INOCENCIO Administration Protocol Benztropine Mesylate 1 mg 10/30/20 21:00 11/10/20 09:30 Benztropine Mesylate 2 Mg/2 Ml Vial IM 1 mg BID INOCENCIO Administration Benztropine Mesylate 1 mg 11/07/20 10:16 Benztropine Mesylate 1 Mg Tablet PO BID PRN Extrapyramidal Effects Benztropine Mesylate 1 mg 11/09/20 21:00 11/10/20 10:13 Benztropine Mesylate 1 Mg Tablet PO Not Given BID INOCENCIO Clonazepam 2 mg 11/09/20 21:00 11/09/20 22:00 Clonazepam 1 Mg Tablet PO 2 mg BEDTIME INOCENCIO Administration Clonazepam 1 mg 11/10/20 09:00 11/10/20 10:13 Clonazepam 1 Mg Tablet PO 1 mg DAILY INOCENCIO Administration Clotrimazole 1 appl 10/29/20 21:00 11/10/20 10:22 Clotrimazole 1 % Cream 15 Gm Tube TOPICAL Not Given BID [facility] Protocol Haloperidol 10 mg 11/07/20 21:00 11/09/20 22:00 Haloperidol 5 Mg Tablet PO 10 mg BEDTIME INOCENCIO Administration Haloperidol 10 mg 11/10/20 09:00 11/10/20 10:14 Haloperidol 5 Mg Tablet PO Not Given DAILY INOCENCIO Haloperidol Lactate 10 mg 11/10/20 21:00 Haloperidol Lactate 5 Mg/Ml Vial IM BID INOCENCIO Hydrochlorothiazide 25 mg 10/12/20 09:00 11/10/20 10:13 Hydrochlorothiazide 25 Mg Tablet PO 25 mg DAILY INOCENCIO Administration Protocol Hydroxyzine HCl 25 mg 10/14/20 22:36 11/09/20 14:01 Hydroxyzine Hcl 25 Mg Tablet PO 25 mg Q4H PRN Administration mild Anxiety Magnesium Hydroxide 30 ml 10/14/20 22:36 Milk Of Magnesia 30 Ml Oral.Susp PO DAILY PRN Constipation Nicotine Polacrilex 4 mg 10/14/20 22:36 11/06/20 04:47 Nicotine Polacrilex 2 Mg Gum BUCCAL 4 mg Q2H PRN Administration Nicotine Cravings Trazodone HCl 50 mg 10/14/20 22:36 10/27/20 00:35 Trazodone Hcl 50 Mg Tablet PO 50 mg BEDTIME PRN Administration Insomnia Trazodone HCl 150 mg 10/30/20 21:00 11/09/20 21:59 Trazodone Hcl 50 Mg Tablet PO 150 mg BEDTIME INOCENCIO Administration Valproic Acid 250 mg 11/09/20 15:00 11/10/20 10:13 Valproic Acid (As Sodium Salt) 250 Mg/5 Ml Solution PO 250 mg TID INOCENCIO Administration Allergies Allergies Allergy/AdvReac Type Severity Reaction Status Date / Time kiwi [KIWI] Allergy Mild HIVES Verified 10/01/20 14:49 mold [MOLD EXTRACTS*] Allergy Mild HIVES Verified 10/01/20 14:49 Assessment & Plan Assessment & Plan (1) Bipolar disorder with psychotic features: Status: Acute Code(s): F31.9 - Bipolar disorder, unspecified Assessment and Plan: 1. continue haldol 10mg po BID 2. Continue depakote 250 mg po TID- will check levels on 11/11/2020 and adjust dose but pt refusing to take medication consistently. Greater than 50% of the session was spent on counseling and/or coordination of care Reason for contiued inpatient stay Substantial Risk for: inability to function
[2020-11-10] MEDS: hydrOXYzine HCL 25 MG TABLET PO (16:18)
[2020-11-10 17:00] VITALS: BP 118/61; PULSE 75; TEMP 35.6
[2020-11-10] MEDS: traZODone HCL 50 MG TABLET 150 MG PO (20:24)
[2020-11-10] MEDS: HaloperidoL 5 MG TABLET 10 MG PO (20:25)
[2020-11-10] MEDS: clonazePAM 1 MG TABLET 2 MG PO (20:25)
[2020-11-10] MEDS: Benztropine Mesylate 1 MG TABLET PO (20:26)
[2020-11-10] MEDS: Clotrimazole 1 % Cream 15 GM TUBE 1 APPL TOPICAL (20:39)
[2020-11-10 23:55] VITALS: BP 134/73; PULSE 78; RESP 16; O2SAT 98
[2020-11-11 05:15] VITALS: BP 133/79; PULSE 80; RESP 18; TEMP 36.2; O2SAT 96
[2020-11-11 08:02] VITALS: BP 122/75
[2020-11-11] MEDS: atenoloL 50 MG TABLET PO (08:02)
[2020-11-11] MEDS: hydroCHLOROthiazide 25 MG TABLET PO (08:04)
[2020-11-11] MEDS: clonazePAM 1 MG TABLET PO (08:14)
[2020-11-11] MEDS: Benztropine Mesylate 2 MG/2 ML VIAL 1 MG IM (08:15)
[2020-11-11] MEDS: Haloperidol Lactate 5 MG/ML VIAL 10 MG IM (08:16)
[2020-11-11] MEDS: Clotrimazole 1 % Cream 15 GM TUBE 1 APPL TOPICAL ×2 (08:36→21:41)
--- NOTE | 2020-11-11 09:18 | PM.NEUROCN ---
History of Present Illness Data of Consult Service Date: 11/11/20 Primary Care Provider: Jose Estes MD 30 years old woman with significant obesity and underlying history of hypertension usually controlled with couple of medicines but without any previous history, or at least known prior history, of a significant psychiatric illness. She was admitted hospital with acute psychosis and this consultation was requested to see if there was any neurological cause. She was unable to provide any meaningful history though she was able to make a conversation. She did tell me about her primary care physician's would taking care of her blood pressure and other issues, but also she talked about things about her neighbor. Detail psychiatric symptoms history was in psychiatric notes. She denied any discomfort or pain. Review of Systems Review of Systems: This was limited because of her ability to answer questions correctly but there was no obvious evidence of any recent trauma convulsion or cold or flu-like illness. She had complained of bilateral leg swelling for which she had couple of ultrasounds done. [facility] Past Medical History Medical History (Updated 11/11/20 @ 09:22 by Sheryl Estes MD) Asthma Factor 5 Leiden mutation, heterozygous Hypertension, essential Obesity, morbid Seasonal asthma Family History Family History Father HTN (hypertension) Diabetes mellitus Mother Afib Maternal Grandfather No problems noted. Maternal Grandmother No problems noted. Paternal Grandmother Breast cancer Paternal Grandfather No problems noted. Sister No problems noted. Surgical History Surgical History History of ovarian cyst History of wisdom tooth extraction Social History Social History Household Members: Family Housing: House Do you presently have visiting nurse or other home services: No Alcohol intake: never Smoking Status: Never smoker Tobacco Type: Cigarette Smoked in Last 30 Days: No Patient Interested in Nicotine Replacement: No Patient Given Instructions on How to Stop Smoking: No Second Hand Smoke Exposure: No Use of substances other than those prescribed or required for medical reasons: No Currently Displaying Signs/Symptoms of Drug Intoxication Withdrawal: No Any prior treatment program specific to substance use: No Advance Directives: No Advance Directives Information Provided: No Do you have thoughts of harming others: None Do you have a plan to hurt others: No Plan Recently lost weight without trying: Unsure service: No Sexual orientation: Don't Know Meds Allergies Allergy/AdvReac Type Severity Reaction Status Date / Time kiwi [KIWI] Allergy Mild HIVES Verified 10/01/20 14:49 mold [MOLD EXTRACTS*] Allergy Mild HIVES Verified 10/01/20 14:49 Active Medications: Current Medications Generic Name Dose Route Start Last Admin Trade Name Freq PRN Reason Stop Dose Admin Acetaminophen 650 mg 10/14/20 22:36 11/06/20 00:28 Acetaminophen 325 Mg Tablet PO 650 mg Q6H PRN Administration Headache/Pain Mild Scale (1-3) Al Hydroxide/Mg Hydroxide 30 ml 10/14/20 22:36 Magnesium Hydrox/Alum Hydrox 30 Ml Oral.Susp PO Q6H PRN Heartburn/Nausea Atenolol 50 mg 10/12/20 09:00 11/11/20 08:02 Atenolol 50 Mg Tablet PO 50 mg DAILY INOCENCIO Administration Protocol Benztropine Mesylate 1 mg 10/30/20 21:00 11/11/20 08:15 Benztropine Mesylate 2 Mg/2 Ml Vial IM 1 mg BID INOCENCIO Administration Benztropine Mesylate 1 mg 11/07/20 10:16 Benztropine Mesylate 1 Mg Tablet PO BID PRN Extrapyramidal Effects Benztropine Mesylate 1 mg 11/09/20 21:00 11/11/20 08:58 Benztropine Mesylate 1 Mg Tablet PO Not Given BID INOCENCIO Clonazepam 2 mg 11/09/20 21:00 11/10/20 20:25 Clonazepam 1 Mg Tablet PO 2 mg BEDTIME INOCENCIO Administration Clonazepam 1 mg 11/10/20 09:00 11/11/20 08:14 Clonazepam 1 Mg Tablet PO 1 mg DAILY INOCENCIO Administration Clotrimazole 1 appl 10/29/20 21:00 11/11/20 08:36 Clotrimazole 1 % Cream 15 Gm Tube TOPICAL 1 appl BID INOCENCIO Administration Protocol Haloperidol 10 mg 11/07/20 21:00 11/10/20 20:25 Haloperidol 5 Mg Tablet PO 10 mg BEDTIME INOCENCIO Administration Haloperidol 10 mg 11/10/20 09:00 11/11/20 08:58 Haloperidol 5 Mg Tablet PO Not Given DAILY INOCENCIO Haloperidol Lactate 10 mg 11/10/20 21:00 11/11/20 08:16 Haloperidol Lactate 5 Mg/Ml Vial IM 10 mg BID INOCENCIO Administration Hydrochlorothiazide 25 mg 10/12/20 09:00 11/11/20 08:04 Hydrochlorothiazide 25 Mg Tablet PO 25 mg DAILY INOCENCIO Administration Protocol Hydroxyzine HCl 25 mg 10/14/20 22:36 11/10/20 16:18 Hydroxyzine Hcl 25 Mg Tablet PO 25 mg Q4H PRN Administration mild Anxiety Magnesium Hydroxide 30 ml 10/14/20 22:36 Milk Of Magnesia 30 Ml Oral.Susp PO DAILY PRN Constipation Nicotine Polacrilex 4 mg 10/14/20 22:36 11/06/20 04:47 Nicotine Polacrilex 2 Mg Gum BUCCAL 4 mg Q2H PRN Administration Nicotine Cravings Trazodone HCl 50 mg 10/14/20 22:36 10/27/20 00:35 Trazodone Hcl 50 Mg Tablet PO 50 mg BEDTIME PRN Administration Insomnia Trazodone HCl 150 mg 10/30/20 21:00 11/10/20 20:24 Trazodone Hcl 50 Mg Tablet PO 150 mg BEDTIME INOCENCIO Administration Valproic Acid 250 mg 11/09/20 15:00 11/11/20 08:36 Valproic Acid (As Sodium Salt) 250 Mg/5 Ml Solution PO Not Given TID INOCENCIO Physical Exam Vital Signs: Vital Signs: Last Vital Signs Temp 97.1 F 11/11/20 05:15 Pulse 80 11/11/20 05:15 Resp 18 11/11/20 05:15 BP 122/75 11/11/20 08:02 Pulse Ox 96 11/11/20 05:15 Body Mass Index 63.2 She was alert and awake somewhat talkative hyperactive and at time euphoric. She answered questions and followed commands. 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 Pupils were equal reactive to light and extraocular muscles were intact. There was no nystagmus. Face was symmetrical. Deep tendon reflexes are absent with flexor plantars. There was moderate leg edema. No dystonic or abnormal movements were noted. Results Labs CBC & Chem 7: 10/29/20 12:09 10/29/20 12:09 Microbiology Microbiology Results: Microbiology 11/07/20 19:06 Urine clean catch - Clean Catch Midstream Urine Culture - Final Her noncontrast head CT did not reveal any acute abnormality. Moderate amount of bilateral cortical mostly parietal and little bit of occipital area atrophy was noted. Assessment and Plan (1) Acute psychosis: Status: Acute 30 years old woman who apparently has no prior history of psychotic disorder presented in acute psychotic episode involving significant delusions and paranoia. Her thinking process was significantly impaired. She was not in any physical distress. Neurological examination did not reveal any overt focal abnormality. There were no significant lab abnormalities other than mild anemia. Her head CT revealed moderately severe cortical biparietal atrophy. Her overall presentation was quite concerning either suggestive of a primarily psychiatric condition manifesting at this age, or an underlying systemic illness either resulting her contributing to this illness. Subtle finding of biparietal atrophy was somewhat suggestive of an underlying psychiatric disease. Because of young age and acute nature of this condition I would recommend further workup to rule out treatable or fixable causes of psychosis. In this regard systemic lupus and similar conditions are the 1st 1 to rule out. I suggest an MRI of brain with and without contrast, serum antinuclear antibody titer, anti phospholipid antibody titer, and a pelvis CT, especially if rheumatological workup is negative, to rule out any occult malignancy. She had complained of lower abdominal area pain in the past. Treatment until further diagnosis is refined is symptomatic. Procedures Date of Service Date of Service: 11/11/20
--- NOTE | 2020-11-11 16:23 | P.PNPSI_ITS ---
Subjective Subjective Date of Service: 11/11/20 Reason For Visit: Acute Psychosis Interim History: Zeinab continues to need close observation due to disorganized behavior. She is intrusive with peers. She has hypersexual behaviors. 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 Her thought process is very disorganized and her attention is very poor. She is irritable at times and guarded and paranoid towards staff. Pt seen by neurology, recommended ARIEL reflex, cardiolipni antibodies, erythrocyte sedimentation, [place] [facility] [place] will start with blood work and if necessary MRI) and CT abdomen to rule out teratomas. Review of Systems Review of Systems This was limited because of her ability to answer questions correctly but there was no obvious evidence of any recent trauma convulsion or cold or flu- like illness. She had complained of bilateral leg swelling for which she had couple of ultrasounds done. Yes all other systems are reviewed and are negative Constitutional: Reports as per HPI, Reports no additional constitutional complaints, Denies chills and Denies fever(s) Eyes: Reports as per HPI and Reports no additional eye complaints Reports system reviewed and no additional complaints, except as documented and Reports as per HPI Cardiovascular: Reports as per HPI, Reports no additional cardiovascular complai nts, Denies chest pain, Denies Epigastric Pain and Denies dyspnea Respiratory: Reports as per HPI, Reports no additional respiratory complaints, Denies chest congestion, Denies cough and Denies dyspnea Gastrointestinal: Reports as per HPI, Reports no additional gastrointestinal complaints, Denies abdominal pain, Denies change in stool character, Denies constipation and Denies vomiting Musculoskeletal: Reports no additional musculoskeletal complaints and Reports as per HPI Reports system reviewed and no additional complaints, except as documented and Reports as per HPI Psychiatric: Reports no additional psychiatric complaints Mental Status Exam Mental Status Exam Narrative: Appearance: [place] woman, casually groomed, somewhat disheveled today, in NAD Behavior: guarded and suspicious Psychomotor: no agitation or retardation noted Speech: clear, normal rate but hyperverbal, spontaneous TP: tangential TC: suspiciousness about other taking 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 Diagnostics Vital Signs (24Hr): Vital Signs - 24 hr 11/10/20 17:00 11/10/20 23:55 11/11/20 05:15 Temperature 96.0 F L 97.1 F Pulse Rate 75 78 80 Respiratory Rate 16 18 Blood Pressure 118/61 134/73 133/79 Pulse Oximetry 98 96 11/11/20 08:02 Temperature Pulse Rate Respiratory Rate Blood Pressure 122/75 Pulse Oximetry Body Mass Index 63.2 Labs Results: 10/29/20 12:09 10/29/20 12:09 Labs: Laboratory Results - last 48 hr 11/07/20 19:06 Plasma Copper 105 Imaging Radiology Impressions: ITS Impressions Chest X-Ray 10/12/20 01:44 IMPRESSION: No evidence for acute disease. Head CT 10/12/20 19:11 IMPRESSION: No acute intracranial pathology. Venous Duplex 10/29/20 02:12 IMPRESSION: No DVT demonstrated in the left lower extremity. Foot X-Ray 11/07/20 13:45 IMPRESSION: Arthritis at the first MTP joint and calcaneal spurs. Venous Duplex 11/07/20 14:20 IMPRESSION: No DVT demonstrated in the bilateral lower extremity. Medications Medications Current Medications Generic Name Dose Route Start Last Admin Trade Name Freq PRN Reason Stop Dose Admin Acetaminophen 650 mg 10/14/20 22:36 11/06/20 00:28 Acetaminophen 325 Mg Tablet PO 650 mg Q6H PRN Administration Headache/Pain Mild Scale (1-3) Al Hydroxide/Mg Hydroxide 30 ml 10/14/20 22:36 Magnesium Hydrox/Alum Hydrox 30 Ml Oral.Susp PO Q6H PRN Heartburn/Nausea Atenolol 50 mg 10/12/20 09:00 11/11/20 08:02 Atenolol 50 Mg Tablet PO 50 mg DAILY INOCENCIO Administration Protocol Benztropine Mesylate 1 mg 10/30/20 21:00 11/11/20 08:15 Benztropine Mesylate 2 Mg/2 Ml Vial IM 1 mg BID INOCENCIO Administration Benztropine Mesylate 1 mg 11/07/20 10:16 Benztropine Mesylate 1 Mg Tablet PO BID PRN Extrapyramidal Effects Benztropine Mesylate 1 mg 11/09/20 21:00 11/11/20 08:58 Benztropine Mesylate 1 Mg Tablet PO Not Given BID INOCENCIO Clonazepam 2 mg 11/09/20 21:00 11/10/20 20:25 Clonazepam 1 Mg Tablet PO 2 mg BEDTIME INOCENCIO Administration Clotrimazole 1 appl 10/29/20 21:00 11/11/20 08:36 Clotrimazole 1 % Cream 15 Gm Tube TOPICAL 1 appl BID INOCENCIO Administration Protocol Haloperidol 10 mg 11/07/20 21:00 11/10/20 20:25 Haloperidol 5 Mg Tablet PO 10 mg BEDTIME INOCENCIO Administration Haloperidol 10 mg 11/10/20 09:00 11/11/20 08:58 Haloperidol 5 Mg Tablet PO Not Given DAILY INOCENCIO Haloperidol Lactate 10 mg 11/10/20 21:00 11/11/20 08:16 Haloperidol Lactate 5 Mg/Ml Vial IM 10 mg BID INOCENCIO Administration Hydrochlorothiazide 25 mg 10/12/20 09:00 11/11/20 08:04 Hydrochlorothiazide 25 Mg Tablet PO 25 mg DAILY INOCENCIO Administration Protocol Hydroxyzine HCl 25 mg 10/14/20 22:36 11/10/20 16:18 Hydroxyzine Hcl 25 Mg Tablet PO 25 mg Q4H PRN Administration mild Anxiety Magnesium Hydroxide 30 ml 10/14/20 22:36 Milk Of Magnesia 30 Ml Oral.Susp PO DAILY PRN Constipation Nicotine Polacrilex 4 mg 10/14/20 22:36 11/06/20 04:47 Nicotine Polacrilex 2 Mg Gum BUCCAL 4 mg Q2H PRN Administration Nicotine Cravings Trazodone HCl 50 mg 10/14/20 22:36 10/27/20 00:35 Trazodone Hcl 50 Mg Tablet PO 50 mg BEDTIME PRN Administration Insomnia Trazodone HCl 150 mg 10/30/20 21:00 11/10/20 20:24 Trazodone Hcl 50 Mg Tablet PO 150 mg BEDTIME INOCENCIO Administration Valproic Acid 250 mg 11/09/20 15:00 11/11/20 15:54 Valproic Acid (As Sodium Salt) 250 Mg/5 Ml Solution PO Not Given TID INOCENCIO Allergies Allergies Allergy/AdvReac Type Severity Reaction Status Date / Time kiwi [KIWI] Allergy Mild HIVES Verified 10/01/20 14:49 mold [MOLD EXTRACTS*] Allergy Mild HIVES Verified 10/01/20 14:49 Assessment & Plan Assessment & Plan (1) Bipolar disorder with psychotic features: Status: Acute Code(s): F31.9 - Bipolar disorder, unspecified Assessment and Plan: 1. Continue Haldol 10mg po BID, back IM. 2. Continue depakote Greater than 50% of the session was spent on counseling and/or coordination of care Reason for contiued inpatient stay Substantial Risk for: inability to function
[2020-11-11] MEDS: HaloperidoL 5 MG TABLET 10 MG PO (19:51)
[2020-11-11] MEDS: traZODone HCL 50 MG TABLET 150 MG PO (19:52)
[2020-11-11] MEDS: clonazePAM 1 MG TABLET 2 MG PO (19:52)
[2020-11-11] MEDS: Benztropine Mesylate 1 MG TABLET PO (19:52)
[2020-11-11 22:08] VITALS: BP 139/66; PULSE 80; TEMP 36.9
[2020-11-12] MEDS: Benztropine Mesylate 2 MG/2 ML VIAL 1 MG IM (08:50)
[2020-11-12] MEDS: hydroCHLOROthiazide 25 MG TABLET PO (08:51)
[2020-11-12] MEDS: Haloperidol Lactate 5 MG/ML VIAL 10 MG IM (08:51)
[2020-11-12 08:55] VITALS: BP 116/53; PULSE 88
[2020-11-12] MEDS: atenoloL 50 MG TABLET PO (08:55)
[2020-11-12 08:57] LABS: Copper, plasma 105 mcg/dL (70-175)
[2020-11-12 12:22] LABS: Alanine Aminotransferase 41 U/L (0-31); Albumin Level 3.9 g/dL (3.5-5.0); Alkaline Phosphatase 64 U/L (39-117); Anion Gap 12 (12-20); Aspartate Amino Transferase 25 U/L (5-31); Bilirubin Total 0.4 mg/dL (0.0-1.0); Blood Urea Nitrogen 14 mg/dL (9-16); Carbon Dioxide 30 mmol/L (22-29); Chloride 103 mmol/L (96-108); Creatinine Clr Calc Pharmacy 216.7; Estimated Glomerular Filt Rate > 60; Glucose Random 107 mg/dL (60-115); Potassium 3.8 mmol/L (3.3-5.1); Sodium 141 mmol/L (135-145); Total Protein 6.5 g/dL (6.5-8.0)
[2020-11-12 12:32] LABS: HCG Quantitative < 2 mIU/mL
[2020-11-12 12:45] LABS: Erythrocyte Sedimentation Rate 19 MM/HR (0-20)
[2020-11-12] MEDS: Clotrimazole 1 % Cream 15 GM TUBE 1 APPL TOPICAL ×2 (14:03→21:00)
[2020-11-12 16:45] VITALS: BP 134/67; PULSE 80; TEMP 37
--- NOTE | 2020-11-12 17:18 | P.PNPSI_ITS ---
Subjective Subjective Date of Service: 11/12/20 Reason For Visit: Acute Psychosis Interim History: Zeinab continues to present as labile, disorganized, poor attention. 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 She is suspicious towards staff at times. She has poor boundaries with peers. She denies SI/HI. She denies VH/AH. However, delusions of having special cortes and paranoid de lusions are evident. Pt is unable to maintain any coherent conversation. Review of Systems Review of Systems This was limited because of her ability to answer questions correctly but there was no obvious evidence of any recent trauma convulsion or cold or flu- like illness. She had complained of bilateral leg swelling for which she had couple of ultrasounds done. Yes all other systems are reviewed and are negative Constitutional: Reports as per HPI, Reports no additional constitutional complaints, Denies chills and Denies fever(s) Eyes: Reports as per HPI and Reports no additional eye complaints Reports system reviewed and no additional complaints, except as documented and Reports as per HPI Cardiovascular: Reports as per HPI, Reports no additional cardiovascular complaints, Denies chest pain, Denies Epigastric Pain and Denies dyspnea Respiratory: Reports as per HPI, Reports no additional respiratory complaints, Denies chest congestion, Denies cough and Denies dyspnea Gastrointestinal: Reports as per HPI, Reports no additional gastrointestinal complaints, Denies abdominal pain, Denies change in stool character, Denies constipation and Denies vomiting Musculoskeletal: Reports no additional musculoskeletal complaints and Reports as per HPI Reports system reviewed and no additional complaints, except as documented and Reports as per HPI Psychiatric: Reports no additional psychiatric complaints Mental Status Exam Mental Status Exam Narrative: Appearance: [place] woman, casually groomed, somewhat disheveled today, in NAD Behavior: guarded and suspicious Psychomotor: no agitation or retardation noted Speech: clear, normal rate but hyperverbal, spontaneous TP: tangential TC: suspiciousness about other taking 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 Diagnostics Vital Signs (24Hr): Vital Signs - 24 hr 11/11/20 22:08 11/12/20 08:55 Temperature 98.5 F Pulse Rate 80 88 Blood Pressure 139/66 116/53 L Body Mass Index 63.2 Labs Results: 10/29/20 12:09 11/12/20 11:46 Labs: Laboratory Results - last 48 hr 11/07/20 11/12/20 11/12/20 19:06 11:46 11:46 ESR 19 Sodium 141 Potassium 3.8 Chloride 103 Carbon Dioxide 30 H Anion Gap 12 BUN 14 Creatinine 0.71 Estim Creat Clear Calc 216.7 Estimated GFR > 60 Random Glucose 107 Calcium 9.0 Total Bilirubin 0.4 AST 25 ALT 41 H Alkaline Phosphatase 64 Total Protein 6.5 Albumin 3.9 Beta HCG, Quant < 2 Plasma Copper 105 Imaging Radiology Impressions: ITS Impressions Chest X-Ray 10/12/20 01:44 IMPRESSION: No evidence for acute disease. Head CT 10/12/20 19:11 IMPRESSION: No acute intracranial pathology. Venous Duplex 10/29/20 02:12 IMPRESSION: No DVT demonstrated in the left lower extremity. Foot X-Ray 11/07/20 13:45 IMPRESSION: Arthritis at the first MTP joint and calcaneal spurs. Venous Duplex 11/07/20 14:20 IMPRESSION: No DVT demonstrated in the bilateral lower extremity. Abdomen/Pelvis CT 11/12/20 15:20 IMPRESSION: Hepatosplenomegaly with fatty infiltration of the liver. Medications Medications Current Medications Generic Name Dose Route Start Last Admin Trade Name Freq PRN Reason Stop Dose Admin Acetaminophen 650 mg 10/14/20 22:36 11/06/20 00:28 Acetaminophen 325 Mg Tablet PO 650 mg Q6H PRN Administration Headache/Pain Mild Scale (1-3) Al Hydroxide/Mg Hydroxide 30 ml 10/14/20 22:36 Magnesium Hydrox/Alum Hydrox 30 Ml Oral.Susp PO Q6H PRN Heartburn/Nausea Atenolol 50 mg 10/12/20 09:00 11/12/20 08:55 Atenolol 50 Mg Tablet PO 50 mg DAILY INOCENCIO Administration Protocol Benztropine Mesylate 1 mg 10/30/20 21:00 11/12/20 08:50 Benztropine Mesylate 2 Mg/2 Ml Vial IM 1 mg BID INOCENCIO Administration Benztropine Mesylate 1 mg 11/07/20 10:16 Benztropine Mesylate 1 Mg Tablet PO BID PRN Extrapyramidal Effects Benztropine Mesylate 1 mg 11/09/20 21:00 11/12/20 14:02 Benztropine Mesylate 1 Mg Tablet PO Not Given BID INOCENCIO Clonazepam 2 mg 11/09/20 21:00 11/11/20 19:52 Clonazepam 1 Mg Tablet PO 2 mg BEDTIME INOCENCIO Administration Clotrimazole 1 appl 10/29/20 21:00 11/12/20 14:03 Clotrimazole 1 % Cream 15 Gm Tube TOPICAL 1 appl BID INOCENCIO Administration Protocol Haloperidol 10 mg 11/07/20 21:00 11/11/20 19:51 Haloperidol 5 Mg Tablet PO 10 mg BEDTIME INOCENCIO Administration Haloperidol 10 mg 11/10/20 09:00 11/12/20 14:03 Haloperidol 5 Mg Tablet PO Not Given DAILY INOCENCIO Haloperidol Lactate 10 mg 11/10/20 21:00 11/12/20 08:51 Haloperidol Lactate 5 Mg/Ml Vial IM 10 mg BID INOCENCIO Administration Hydrochlorothiazide 25 mg 10/12/20 09:00 11/12/20 08:51 Hydrochlorothiazide 25 Mg Tablet PO 25 mg DAILY INOCENCIO Administration Protocol Hydroxyzine HCl 25 mg 10/14/20 22:36 11/10/20 16:18 Hydroxyzine Hcl 25 Mg Tablet PO 25 mg Q4H PRN Administration mild Anxiety Magnesium Hydroxide 30 ml 10/14/20 22:36 Milk Of Magnesia 30 Ml Oral.Susp PO DAILY PRN Constipation Nicotine Polacrilex 4 mg 10/14/20 22:36 11/06/20 04:47 Nicotine Polacrilex 2 Mg Gum BUCCAL 4 mg Q2H PRN Administration Nicotine Cravings Trazodone HCl 50 mg 10/14/20 22:36 10/27/20 00:35 Trazodone Hcl 50 Mg Tablet PO 50 mg BEDTIME PRN Administration Insomnia Trazodone HCl 150 mg 10/30/20 21:00 11/11/20 19:52 Trazodone Hcl 50 Mg Tablet PO 150 mg BEDTIME INOCENCIO Administration Valproic Acid 250 mg 11/09/20 15:00 11/12/20 15:06 Valproic Acid (As Sodium Salt) 250 Mg/5 Ml Solution PO Not Given TID INOCENCIO Allergies Allergies Allergy/AdvReac Type Severity Reaction Status Date / Time kiwi [KIWI] Allergy Mild HIVES Verified 10/01/20 14:49 mold [MOLD EXTRACTS*] Allergy Mild HIVES Verified 10/01/20 14:49 Assessment & Plan Assessment & Plan (1) Bipolar disorder with psychotic features: Status: Acute Code(s): F31.9 - Bipolar disorder, unspecified Assessment and Plan: 1. Continue Haldol 10mg po BID, back IM. 2. Continue depakote Greater than 50% of the session was spent on counseling and/or coordination of care Reason for contiued inpatient stay Substantial Risk for: inability to function
[2020-11-12] MEDS: clonazePAM 1 MG TABLET 2 MG PO (20:45)
[2020-11-12] MEDS: traZODone HCL 50 MG TABLET 150 MG PO (20:45)
[2020-11-12] MEDS: HaloperidoL 5 MG TABLET 10 MG PO (20:46)
[2020-11-12] MEDS: Benztropine Mesylate 1 MG TABLET PO (20:46)
[2020-11-13 04:40] VITALS: BP 144/92; PULSE 76; RESP 18; TEMP 36; O2SAT 98
[2020-11-13 05:02] LABS: HIV AB/AG Nonreactive (Nonreactive); HIV Num 1 0.09 S/CO (0.00-0.99)
[2020-11-13 05:05] LABS: HIV AB/AG Nonreactive (Nonreactive); HIV Num 1 0.06 S/CO (0.00-0.99)
[2020-11-13 08:56] VITALS: BP 117/57; PULSE 83
[2020-11-13] MEDS: atenoloL 50 MG TABLET PO (08:56)
[2020-11-13] MEDS: Benztropine Mesylate 2 MG/2 ML VIAL 1 MG IM (08:57)
[2020-11-13] MEDS: Haloperidol Lactate 5 MG/ML VIAL 10 MG IM (08:57)
[2020-11-13] MEDS: hydroCHLOROthiazide 25 MG TABLET PO (08:57)
[2020-11-13 13:09] VITALS: BMI 61.8
[2020-11-13 14:27] LABS: Anti Nuclear Antibody Screen NEGATIVE (NEGATIVE)
[2020-11-13 18:00] VITALS: BP 133/66; PULSE 80; TEMP 37.1
--- NOTE | 2020-11-13 18:00 | P.PNPSI_ITS ---
Subjective Subjective Date of Service: 11/13/20 Reason For Visit: Acute Psychosis Interim History: Zeinab repeats same sentences over and over again, such as I'm a 100% medium, this room is bugged, I need a wellness check. She continues to present with hyper sexualized behaviors. She denies SI/HI but has limited safety awareness and poor boundaries with peers. She slept about 4 hrs. Review of Systems Review of Systems This was limited because of her ability to answer questions correctly but there was no obvious evidence of any recent trauma convulsion or cold or flu- like illness. She had complained of bilateral leg swelling for which she had couple of ultrasounds done. Yes all other systems are reviewed and are negative Constitutional: Reports as per HPI, Reports no additional constitutional complaints, Denies chills and Denies fever(s) Eyes: Reports as per HPI and Reports no additional eye complaints Reports system reviewed and no additional complaints, except as documented and Reports as per HPI Cardiovascular: Reports as per HPI, Reports no additional cardiovascular complaints, Denies chest pain, Denies Epigastric Pain and Denies dyspnea Respiratory: Reports as per HPI, Reports no additional respiratory complaints, Denies chest congestion, Denies cough and Denies dyspnea Gastrointestinal: Reports as per HPI, Reports no additional gastrointestinal complaints, Denies abdominal pain, Denies change in stool character, Denies constipation and Denies vomiting Musculoskeletal: Reports no additional musculoskeletal complaints and Reports as per HPI Reports system reviewed and no additional complaints, except as documented and Reports as per HPI Psychiatric: Reports no additional psychiatric complaints Mental Status Exam Mental Status Exam Narrative: Appearance: [place] woman, casually groomed, somewhat disheveled today, in NAD Behavior: guarded and suspicious Psychomotor: no agitation or retardation noted Speech: clear, normal rate but hyperverbal, spontaneous TP: tangential TC: suspiciousness about other taking 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 Patient Appearance: Unkempt Patient Orientation: Person and Place Level of Consciousness: Awake Patient Behavior: Talkative, Hypersexual and Restless Mood Description: Suspicious, Anxious and Labile Affect Description: Suspicious, Labile, Angry and Apprehensive Ability to Follow Directions: Fair Speech Pattern: Perseverating and Pressured Memory Description: Episodic Impaired Diagnostics Vital Signs (24Hr): Vital Signs - 24 hr 11/13/20 04:40 11/13/20 08:56 Temperature 96.8 F Pulse Rate 76 83 Respiratory Rate 18 Blood Pressure 144/92 H 117/57 L Pulse Oximetry 98 Body Mass Index 61.8 Labs Results: 10/29/20 12:09 11/12/20 11:46 Labs: Laboratory Results - last 48 hr 11/07/20 11/12/20 11/12/20 19:06 11:46 11:46 ESR Sodium Potassium Chloride Carbon Dioxide Anion Gap BUN Creatinine Estim Creat Clear Calc Estimated GFR Random Glucose Calcium Total Bilirubin AST ALT Alkaline Phosphatase Total Protein Albumin Beta HCG, Quant Plasma Copper 105 ARIEL Screen NEGATIVE ARIEL Titer TNP ARIEL Titer 2 TNP ARIEL Titer 3 TNP ARIEL Pattern TNP ARIEL Pattern 2 TNP ARIEL Pattern 3 TNP HIV 1&2 Ab/P24 Ag 4thGn Nonreactive 11/12/20 11/12/20 11/12/20 11:46 11:46 11:46 ESR 19 Sodium 141 Potassium 3.8 Chloride 103 Carbon Dioxide 30 H Anion Gap 12 BUN 14 Creatinine 0.71 Estim Creat Clear Calc 216.7 Estimated GFR > 60 Random Glucose 107 Calcium 9.0 Total Bilirubin 0.4 AST 25 ALT 41 H Alkaline Phosphatase 64 Total Protein 6.5 Albumin 3.9 Beta HCG, Quant < 2 Plasma Copper ARIEL Screen ARIEL Titer ARIEL Titer 2 ARIEL Titer 3 ARIEL Pattern ARIEL Pattern 2 ARIEL Pattern 3 HIV 1&2 Ab/P24 Ag 4thGn Nonreactive Imaging Radiology Impressions: ITS Impressions Chest X-Ray 10/12/20 01:44 IMPRESSION: No evidence for acute disease. Head CT 10/12/20 19:11 IMPRESSION: No acute intracranial pathology. Venous Duplex 10/29/20 02:12 IMPRESSION: No DVT demonstrated in the left lower extremity. Foot X-Ray 11/07/20 13:45 IMPRESSION: Arthritis at the first MTP joint and calcaneal spurs. Venous Duplex 11/07/20 14:20 IMPRESSION: No DVT demonstrated in the bilateral lower extremity. Abdomen/Pelvis CT 11/12/20 15:20 IMPRESSION: Hepatosplenomegaly with fatty infiltration of the liver. Medications Medications Current Medications Generic Name Dose Route Start Last Admin Trade Name Freq PRN Reason Stop Dose Admin Acetaminophen 650 mg 10/14/20 22:36 11/06/20 00:28 Acetaminophen 325 Mg Tablet PO 650 mg Q6H PRN Administration Headache/Pain Mild Scale (1-3) Al Hydroxide/Mg Hydroxide 30 ml 10/14/20 22:36 Magnesium Hydrox/Alum Hydrox 30 Ml Oral.Susp PO Q6H PRN Heartburn/Nausea Atenolol 50 mg 10/12/20 09:00 11/13/20 08:56 Atenolol 50 Mg Tablet PO 50 mg DAILY INOCENCIO Administration Protocol Benztropine Mesylate 1 mg 10/30/20 21:00 11/13/20 08:57 Benztropine Mesylate 2 Mg/2 Ml Vial IM 1 mg BID INOCENCIO Administration Benztropine Mesylate 1 mg 11/07/20 10:16 Benztropine Mesylate 1 Mg Tablet PO BID PRN Extrapyramidal Effects Benztropine Mesylate 1 mg 11/09/20 21:00 11/13/20 09:50 Benztropine Mesylate 1 Mg Tablet PO Not Given BID INOCENCIO Clonazepam 2 mg 11/09/20 21:00 11/12/20 20:45 Clonazepam 1 Mg Tablet PO 2 mg BEDTIME INOCENCIO Administration Clotrimazole 1 appl 10/29/20 21:00 11/13/20 09:53 Clotrimazole 1 % Cream 15 Gm Tube TOPICAL Not Given BID INOCENCIO Protocol Haloperidol 10 mg 11/07/20 21:00 11/12/20 20:46 Haloperidol 5 Mg Tablet PO 10 mg BEDTIME INOCENCIO Administration Haloperidol 10 mg 11/10/20 09:00 11/13/20 09:50 Haloperidol 5 Mg Tablet PO Not Given DAILY INOCENCIO Haloperidol Lactate 10 mg 11/10/20 21:00 11/13/20 08:57 Haloperidol Lactate 5 Mg/Ml Vial IM 10 mg BID INOCENCIO Administration Hydrochlorothiazide 25 mg 10/12/20 09:00 11/13/20 08:57 Hydrochlorothiazide 25 Mg Tablet PO 25 mg DAILY INOCENCIO Administration Protocol Hydroxyzine HCl 25 mg 10/14/20 22:36 11/10/20 16:18 Hydroxyzine Hcl 25 Mg Tablet PO 25 mg Q4H PRN Administration mild Anxiety Magnesium Hydroxide 30 ml 10/14/20 22:36 Milk Of Magnesia 30 Ml Oral.Susp PO DAILY PRN Constipation Nicotine Polacrilex 4 mg 10/14/20 22:36 11/06/20 04:47 Nicotine Polacrilex 2 Mg Gum BUCCAL 4 mg Q2H PRN Administration Nicotine Cravings Trazodone HCl 50 mg 10/14/20 22:36 10/27/20 00:35 Trazodone Hcl 50 Mg Tablet PO 50 mg BEDTIME PRN Administration Insomnia Trazodone HCl 150 mg 10/30/20 21:00 11/12/20 20:45 Trazodone Hcl 50 Mg Tablet PO 150 mg BEDTIME INOCENCIO Administration Allergies Allergies Allergy/AdvReac Type Severity Reaction Status Date / Time kiwi [KIWI] Allergy Mild HIVES Verified 10/01/20 14:49 mold [MOLD EXTRACTS*] Allergy Mild HIVES Verified 10/01/20 14:49 Assessment & Plan Assessment & Plan (1) Bipolar disorder with psychotic features: Status: Acute Code(s): F31.9 - Bipolar disorder, unspecified Assessment and Plan: 1. Continue Haldol 10mg po BID, back IM. 2. Increase depakote 500mg po TID- pt not taking it consistently but at least if she agrees she may take more therapeutic dose. Greater than 50% of the session was spent on counseling and/or coordination of care Reason for contiued inpatient stay Substantial Risk for: inability to function
[2020-11-13] MEDS: Benztropine Mesylate 1 MG TABLET PO (20:03)
[2020-11-13] MEDS: clonazePAM 1 MG TABLET 2 MG PO (20:03)
[2020-11-13] MEDS: traZODone HCL 50 MG TABLET 150 MG PO (20:04)
[2020-11-13] MEDS: HaloperidoL 5 MG TABLET 10 MG PO (20:04)
--- NOTE | 2020-11-13 21:05 | PC.NURSE ---
Pts Mother called to report how upset she was. Mother reported that Pts girlfriend was on zoom with her today and pt was talking about RN that inappropriate things and grabbing her breasts and did not have a bra on. Mother was told by this RN that pt is unable to follow redirection now. Mother did not believe this. She was hyper verbal and talking about how we have to maintain dignity and the patients respect. Mother was happy that visiting has reopened but was perseverating on her daughter walking around without a bra and that we are not putting layers to cover her up. This RN tried to explain that the unit is warm to the patient and too many layers make her feel worse. This RN told Mom that she would pass along her concerns. Mom was swearing and using the F word frequently. She reported that the has complained to everyone and she does not want to here about the Psych piece.
[2020-11-14 04:15] VITALS: BP 135/82; PULSE 73; RESP 16; TEMP 36.3; O2SAT 98
[2020-11-14] MEDS: Haloperidol Lactate 5 MG/ML VIAL 10 MG IM (09:24)
[2020-11-14] MEDS: Benztropine Mesylate 2 MG/2 ML VIAL 1 MG IM (09:24)
[2020-11-14] MEDS: hydroCHLOROthiazide 25 MG TABLET PO (10:53)
[2020-11-14 10:58] VITALS: BP 135/82; PULSE 73
[2020-11-14] MEDS: atenoloL 50 MG TABLET PO (10:58)
--- NOTE | 2020-11-14 17:51 | P.PNPSI_ITS ---
Subjective Subjective Date of Service: 11/14/20 Reason For Visit: Acute Psychosis Interim History: Zeinab continues to repeat same sentences over and over again, such as I'm a 100% medium, this room is bugged, I need a wellness check. She continues to present with hyper sexualized behaviors. She denies SI/HI but has limited safety awareness and poor boundaries with peers. She slept about 4 hrs. She reports her alex is the love of my life, and he knows it. She asks that I call alex and ask him to come and pick her up. Review of Systems Review of Systems This was limited because of her ability to answer questions correctly but there was no obvious evidence of any recent trauma convulsion or cold or flu- like illness. She had complained of bilateral leg swelling for which she had couple of ultrasounds done. Yes all other systems are reviewed and are negative Constitutional: Reports as per HPI, Reports no additional constitutional complaints, Denies chills and Denies fever(s) Eyes: Reports as per HPI and Reports no additional eye complaints Reports system reviewed and no additional complaints, except as documented and Reports as per HPI Cardiovascular: Reports as per HPI, Reports no additional cardiovascular complaints, Denies chest pain, Denies Epigastric Pain and Denies dyspnea Respiratory: Reports as per HPI, Reports no additional respiratory complaints, Denies chest congestion, Denies cough and Denies dyspnea Gastrointestinal: Reports as per HPI, Reports no additional gastrointestinal complaints, Denies abdominal pain, Denies change in stool character, Denies cons tipation and Denies vomiting Musculoskeletal: Reports no additional musculoskeletal complaints and Reports as per HPI Reports system reviewed and no additional complaints, except as documented and Reports as per HPI Psychiatric: Reports no additional psychiatric complaints Mental Status Exam Mental Status Exam Narrative: Appearance: [place] woman, casually groomed, somewhat disheveled today, in NAD Behavior: guarded and suspicious Psychomotor: no agitation or retardation noted Speech: clear, normal rate but hyperverbal, spontaneous TP: tangential TC: suspiciousness about other taking 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 Patient Appearance: Unkempt Patient Orientation: Person and Place Level of Consciousness: Awake Patient Behavior: Talkative, Hypersexual and Restless Mood Description: Suspicious, Anxious and Labile Affect Description: Suspicious, Labile, Angry and Apprehensive Ability to Follow Directions: Fair Speech Pattern: Perseverating and Pressured Memory Description: Episodic Impaired Diagnostics Vital Signs (24Hr): Vital Signs - 24 hr 11/13/20 18:00 11/14/20 04:15 11/14/20 10:58 Temperature 98.7 F 97.4 F Pulse Rate 80 73 73 Respiratory Rate 16 Blood Pressure 133/66 135/82 135/82 Pulse Oximetry 98 Body Mass Index 61.8 Labs Results: 10/29/20 12:09 11/12/20 11:46 Labs: Laboratory Results - last 48 hr 11/12/20 11/12/20 11/12/20 11:46 11:46 11:46 ARIEL Screen NEGATIVE ARIEL Titer TNP ARIEL Titer 2 TNP ARIEL Titer 3 TNP ARIEL Pattern TNP ARIEL Pattern 2 TNP ARIEL Pattern 3 TNP HIV 1&2 Ab/P24 Ag 4thGn Nonreactive Nonreactive Imaging Radiology Impressions: ITS Impressions Chest X-Ray 10/12/20 01:44 IMPRESSION: No evidence for acute disease. Head CT 10/12/20 19:11 IMPRESSION: No acute intracranial pathology. Venous Duplex 10/29/20 02:12 IMPRESSION: No DVT demonstrated in the left lower extremity. Foot X-Ray 11/07/20 13:45 IMPRESSION: Arthritis at the first MTP joint and calcaneal spurs. Venous Duplex 11/07/20 14:20 IMPRESSION: No DVT demonstrated in the bilateral lower extremity. Abdomen/Pelvis CT 11/12/20 15:20 IMPRESSION: Hepatosplenomegaly with fatty infiltration of the liver. Medications Medications Current Medications Generic Name Dose Route Start Last Admin Trade Name Freq PRN Reason Stop Dose Admin Acetaminophen 650 mg 10/14/20 22:36 11/06/20 00:28 Acetaminophen 325 Mg Tablet PO 650 mg Q6H PRN Administration Headache/Pain Mild Scale (1-3) Al Hydroxide/Mg Hydroxide 30 ml 10/14/20 22:36 Magnesium Hydrox/Alum Hydrox 30 Ml Oral.Susp PO Q6H PRN Heartburn/Nausea Atenolol 50 mg 10/12/20 09:00 11/14/20 10:58 Atenolol 50 Mg Tablet PO 50 mg DAILY INOCENCIO Administration Protocol Benztropine Mesylate 1 mg 10/30/20 21:00 11/14/20 09:24 Benztropine Mesylate 2 Mg/2 Ml Vial IM 1 mg BID INOCENCIO Administration Benztropine Mesylate 1 mg 11/07/20 10:16 Benztropine Mesylate 1 Mg Tablet PO BID PRN Extrapyramidal Effects Benztropine Mesylate 1 mg 11/09/20 21:00 11/14/20 10:57 Benztropine Mesylate 1 Mg Tablet PO Not Given BID INOCENCIO Clonazepam 2 mg 11/09/20 21:00 11/13/20 20:03 Clonazepam 1 Mg Tablet PO 2 mg BEDTIME INOCENCIO Administration Clotrimazole 1 appl 10/29/20 21:00 11/14/20 10:59 Clotrimazole 1 % Cream 15 Gm Tube TOPICAL Not Given BID INOCENCIO Protocol Haloperidol 10 mg 11/07/20 21:00 11/13/20 20:04 Haloperidol 5 Mg Tablet PO 10 mg BEDTIME INOCENCIO Administration Haloperidol 10 mg 11/10/20 09:00 11/14/20 10:58 Haloperidol 5 Mg Tablet PO Not Given DAILY INOCENCIO Haloperidol Lactate 10 mg 11/10/20 21:00 11/14/20 09:24 Haloperidol Lactate 5 Mg/Ml Vial IM 10 mg BID INOCENCIO Administration Hydrochlorothiazide 25 mg 10/12/20 09:00 11/14/20 10:53 Hydrochlorothiazide 25 Mg Tablet PO 25 mg DAILY INOCENCIO Administration Protocol Hydroxyzine HCl 25 mg 10/14/20 22:36 11/10/20 16:18 Hydroxyzine Hcl 25 Mg Tablet PO 25 mg Q4H PRN Administration mild Anxiety Magnesium Hydroxide 30 ml 10/14/20 22:36 Milk Of Magnesia 30 Ml Oral.Susp PO DAILY PRN Constipation Nicotine Polacrilex 4 mg 10/14/20 22:36 11/06/20 04:47 Nicotine Polacrilex 2 Mg Gum BUCCAL 4 mg Q2H PRN Administration Nicotine Cravings Trazodone HCl 50 mg 10/14/20 22:36 10/27/20 00:35 Trazodone Hcl 50 Mg Tablet PO 50 mg BEDTIME PRN Administration Insomnia Trazodone HCl 150 mg 10/30/20 21:00 11/13/20 20:04 Trazodone Hcl 50 Mg Tablet PO 150 mg BEDTIME INOCENCIO Administration Valproic Acid 500 mg 11/13/20 21:00 11/14/20 13:47 Valproic Acid (As Sodium Salt) 250 Mg/5 Ml Solution PO 500 mg TID INOCENCIO Administration Allergies Allergies Allergy/AdvReac Type Severity Reaction Status Date / Time kiwi [KIWI] Allergy Mild HIVES Verified 10/01/20 14:49 mold [MOLD EXTRACTS*] Allergy Mild HIVES Verified 10/01/20 14:49 Assessment & Plan Assessment & Plan (1) Bipolar disorder with psychotic features: Status: Acute Code(s): F31.9 - Bipolar disorder, unspecified Assessment and Plan: 1. Continue Haldol 10mg po BID, back IM. 2. Increase depakote 500mg po TID- pt not taking it consistently but at least if she agrees she may take more therapeutic dose. Greater than 50% of the session was spent on counseling and/or coordination of care Reason for contiued inpatient stay Substantial Risk for: inability to function
[2020-11-14 18:00] VITALS: BP 135/70; PULSE 68; TEMP 36.1
[2020-11-14] MEDS: traZODone HCL 50 MG TABLET 150 MG PO (20:45)
[2020-11-14] MEDS: Benztropine Mesylate 1 MG TABLET PO (20:46)
[2020-11-14] MEDS: HaloperidoL 5 MG TABLET 10 MG PO (20:46)
[2020-11-14] MEDS: clonazePAM 1 MG TABLET 2 MG PO (20:47)
--- NOTE | 2020-11-15 | ECG_ITS ---
Test Reason : Check QTc Blood Pressure : / mmHG Vent. Rate : 065 BPM Atrial Rate : 065 BPM P-R Int : 166 ms QRS Dur : 096 ms QT Int : 424 ms P-R-T Axes : 032 052 044 degrees QTc Int : 440 ms Normal sinus rhythm Normal ECG No previous ECGs available Referred By: Ridge Oconnell Electronically Signed By:RAMON FOFANA MD
[2020-11-15 05:30] VITALS: BP 140/81; PULSE 76; RESP 18; TEMP 36.5; O2SAT 99
--- NOTE | 2020-11-15 07:41 | P.PNPSI_ITS ---
Subjective Subjective Date of Service: 11/16/20 Reason For Visit: Acute Psychosis Interim History: 11/15/2020: Patient continues to be significantly impaired with disorganization flight of ideas rapid speech and 1st rank symptoms. Will increase dose of Haldol and benzo. 11/14/2020: Zeinab continues to repeat same sentences over and over again, such as I'm a 100% medium, this room is bugged, I need a wellness check. She continues to present with hyper sexualized behaviors. She denies SI/HI but has limited safety awareness and poor boundaries with peers. She slept about 4 hrs. She reports her alex is the love of my life, and he knows it. She asks that I call alex and ask him to come and pick her up. Review of Systems Review of Systems This was limited because of her ability to answer questions correctly but there was no obvious evidence of any recent trauma convulsion or cold or flu-lik e illness. She had complained of bilateral leg swelling for which she had couple of ultrasounds done. Yes all other systems are reviewed and are negative Constitutional: Reports as per HPI, Reports no additional constitutional complaints, Denies chills and Denies fever(s) Eyes: Reports as per HPI and Reports no additional eye complaints Reports system reviewed and no additional complaints, except as documented and Reports as per HPI Cardiovascular: Reports as per HPI, Reports no additional cardiovascular complaints, Denies chest pain, Denies Epigastric Pain and Denies dyspnea Respiratory: Reports as per HPI, Reports no additional respiratory complaints, Denies chest congestion, Denies cough and Denies dyspnea Gastrointestinal: Reports as per HPI, Reports no additional gastrointestinal complaints, Denies abdominal pain, Denies change in stool character, Denies constipation and Denies vomiting Musculoskeletal: Reports no additional musculoskeletal complaints and Reports as per HPI Reports system reviewed and no additional complaints, except as documented and Reports as per HPI Psychiatric: Reports no additional psychiatric complaints Mental Status Exam Mental Status Exam Narrative: Appearance: [place] woman, casually groomed, somewhat disheveled today, in NAD Behavior: guarded and suspicious Psychomotor: no agitation or retardation noted Speech: clear, normal rate but hyperverbal, spontaneous TP: tangential TC: suspiciousness about other taking 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 Patient Appearance: Unkempt Patient Orientation: Person and Place Level of Consciousness: Awake Patient Behavior: Talkative, Hypersexual and Restless Mood Description: Suspicious, Anxious and Labile Affect Description: Suspicious, Labile, Angry and Apprehensive Ability to Follow Directions: Fair Speech Pattern: Perseverating and Pressured Memory Description: Episodic Impaired Diagnostics Vital Signs (24Hr): Vital Signs - 24 hr 11/14/20 10:58 11/14/20 18:00 11/15/20 05:30 Temperature 96.9 F 97.7 F Pulse Rate 73 68 76 Respiratory Rate 18 Blood Pressure 135/82 135/70 140/81 H Pulse Oximetry 99 Body Mass Index 61.8 Labs Results: 10/29/20 12:09 11/12/20 11:46 Labs: Laboratory Results - last 48 hr 11/12/20 11:46 ARIEL Screen NEGATIVE ARIEL Titer TNP ARIEL Titer 2 TNP ARIEL Titer 3 TNP ARIEL Pattern TNP ARIEL Pattern 2 TNP ARIEL Pattern 3 TNP Imaging Radiology Impressions: ITS Impressions Chest X-Ray 10/12/20 01:44 IMPRESSION: No evidence for acute disease. Head CT 10/12/20 19:11 IMPRESSION: No acute intracranial pathology. Venous Duplex 10/29/20 02:12 IMPRESSION: No DVT demonstrated in the left lower extremity. Foot X-Ray 11/07/20 13:45 IMPRESSION: Arthritis at the first MTP joint and calcaneal spurs. Venous Duplex 11/07/20 14:20 IMPRESSION: No DVT demonstrated in the bilateral lower extremity. Abdomen/Pelvis CT 11/12/20 15:20 IMPRESSION: Hepatosplenomegaly with fatty infiltration of the liver. Medications Medications Current Medications Generic Name Dose Route Start Last Admin Trade Name Freq PRN Reason Stop Dose Admin Acetaminophen 650 mg 10/14/20 22:36 11/06/20 00:28 Acetaminophen 325 Mg Tablet PO 650 mg Q6H PRN Administration Headache/Pain Mild Scale (1-3) Al Hydroxide/Mg Hydroxide 30 ml 10/14/20 22:36 Magnesium Hydrox/Alum Hydrox 30 Ml Oral.Susp PO Q6H PRN Heartburn/Nausea Atenolol 50 mg 10/12/20 09:00 11/14/20 10:58 Atenolol 50 Mg Tablet PO 50 mg DAILY INOCENCIO Administration Protocol Benztropine Mesylate 1 mg 10/30/20 21:00 11/14/20 20:58 Benztropine Mesylate 2 Mg/2 Ml Vial IM Not Given BID INOCENCIO Benztropine Mesylate 1 mg 11/07/20 10:16 Benztropine Mesylate 1 Mg Tablet PO BID PRN Extrapyramidal Effects Benztropine Mesylate 1 mg 11/09/20 21:00 11/14/20 20:46 Benztropine Mesylate 1 Mg Tablet PO 1 mg BID INOCENCIO Administration Clonazepam 2 mg 11/09/20 21:00 11/14/20 20:47 Clonazepam 1 Mg Tablet PO 2 mg BEDTIME INOCENCIO Administration Clotrimazole 1 appl 10/29/20 21:00 11/14/20 20:58 Clotrimazole 1 % Cream 15 Gm Tube TOPICAL Not Given BID INOCENCIO Protocol Haloperidol 10 mg 11/07/20 21:00 11/14/20 20:46 Haloperidol 5 Mg Tablet PO 10 mg BEDTIME INOCENCIO Administration Haloperidol 10 mg 11/10/20 09:00 11/14/20 10:58 Haloperidol 5 Mg Tablet PO Not Given DAILY INOCENCIO Haloperidol Lactate 10 mg 11/10/20 21:00 11/14/20 20:59 Haloperidol Lactate 5 Mg/Ml Vial IM Not Given BID INOCENCIO Hydrochlorothiazide 25 mg 10/12/20 09:00 11/14/20 10:53 Hydrochlorothiazide 25 Mg Tablet PO 25 mg DAILY INOCENCIO Administration Protocol Hydroxyzine HCl 25 mg 10/14/20 22:36 11/10/20 16:18 Hydroxyzine Hcl 25 Mg Tablet PO 25 mg Q4H PRN Administration mild Anxiety Magnesium Hydroxide 30 ml 10/14/20 22:36 Milk Of Magnesia 30 Ml Oral.Susp PO DAILY PRN Constipation Nicotine Polacrilex 4 mg 10/14/20 22:36 11/06/20 04:47 Nicotine Polacrilex 2 Mg Gum BUCCAL 4 mg Q2H PRN Administration Nicotine Cravings Trazodone HCl 50 mg 10/14/20 22:36 10/27/20 00:35 Trazodone Hcl 50 Mg Tablet PO 50 mg BEDTIME PRN Administration Insomnia Trazodone HCl 150 mg 10/30/20 21:00 11/14/20 20:45 Trazodone Hcl 50 Mg Tablet PO 150 mg BEDTIME INOCENCIO Administration Valproic Acid 500 mg 11/13/20 21:00 11/14/20 20:48 Valproic Acid (As Sodium Salt) 250 Mg/5 Ml Solution PO 500 mg TID INOCENCIO Administration Allergies Allergies Allergy/AdvReac Type Severity Reaction Status Date / Time kiwi [KIWI] Allergy Mild HIVES Verified 10/01/20 14:49 mold [MOLD EXTRACTS*] Allergy Mild HIVES Verified 10/01/20 14:49 Assessment & Plan Assessment & Plan (1) Bipolar disorder with psychotic features: Status: Acute Code(s): F31.9 - Bipolar disorder, unspecified Assessment and Plan: 1. Increase Haldol to 30 mg. Patient is not taking Depakote or only takes it at night 2. Increase depakote 500mg po TID- pt not taking it consistently but at least if she agrees she may take more therapeutic dose. Greater than 50% of the session was spent on counseling and/or coordination of care Reason for contiued inpatient stay Substantial Risk for: rapid decompensation
[2020-11-15 08:41] VITALS: BP 128/60; PULSE 79
[2020-11-15] MEDS: atenoloL 50 MG TABLET PO (08:41)
[2020-11-15] MEDS: hydroCHLOROthiazide 25 MG TABLET PO (08:43)
[2020-11-15] MEDS: Haloperidol Lactate 5 MG/ML VIAL 10 MG IM (08:45)
[2020-11-15] MEDS: Benztropine Mesylate 2 MG/2 ML VIAL 1 MG IM (08:45)
[2020-11-15] MEDS: Clotrimazole 1 % Cream 15 GM TUBE 1 APPL TOPICAL (09:03)
[2020-11-15 18:00] VITALS: BP 147/74; PULSE 70; TEMP 36.7
[2020-11-15] MEDS: clonazePAM 1 MG TABLET 2 MG PO (19:58)
[2020-11-15] MEDS: traZODone HCL 50 MG TABLET 150 MG PO (19:58)
[2020-11-15] MEDS: Benztropine Mesylate 1 MG TABLET PO (19:58)
[2020-11-15] MEDS: HaloperidoL 5 MG TABLET 20 MG PO (19:59)
--- NOTE | 2020-11-16 08:12 | P.PNPSI_ITS ---
Subjective Subjective Date of Service: 11/16/20 Reason For Visit: Acute Psychosis Interim History: 11/16/2020: Patient slept better at night but during the day continues in much the same way. Haldol dose was increased. Patient allowed EKG. QTC appears okay. 11/15/2020: Patient continues to be significantly impaired with disorganization flight of ideas rapid speech and 1st rank symptoms. Will increase dose of Haldol and benzo. 11/14/2020: Zeinab continues to repeat same sentences over and over again, such as I'm a 100% medium, this room is bugged, I need a wellness check. She continues to present with hyper sexualized behaviors. She denies SI/HI but has limited safety awareness and poor boundaries with peers. She slept about 4 hrs. She reports her alex is the love of my life, and he knows it. She asks that I call alex and ask him to come and pick her up. Review of Systems Review of Systems This was limited because of her ability to answer questions correctly but there was no obvious evidence of any recent trauma convulsion or cold or flu- like illness. She had complained of bilateral leg swelling for which she had couple of ultrasounds done. Yes all other systems are reviewed and are negative Constitutional: Reports as per HPI, Reports no additional constitutional c omplaints, Denies chills and Denies fever(s) Eyes: Reports as per HPI and Reports no additional eye complaints Reports system reviewed and no additional complaints, except as documented and Reports as per HPI Cardiovascular: Reports as per HPI, Reports no additional cardiovascular complaints, Denies chest pain, Denies Epigastric Pain and Denies dyspnea Respiratory: Reports as per HPI, Reports no additional respiratory complaints, Denies chest congestion, Denies cough and Denies dyspnea Gastrointestinal: Reports as per HPI, Reports no additional gastrointestinal complaints, Denies abdominal pain, Denies change in stool character, Denies constipation and Denies vomiting Musculoskeletal: Reports no additional musculoskeletal complaints and Reports as per HPI Reports system reviewed and no additional complaints, except as documented and Reports as per HPI Psychiatric: Reports no additional psychiatric complaints Mental Status Exam Mental Status Exam Narrative: Appearance: [place] woman, casually groomed, somewhat disheveled today, in NAD Behavior: guarded and suspicious Psychomotor: no agitation or retardation noted Speech: clear, normal rate but hyperverbal, spontaneous TP: tangential TC: suspiciousness about other taking 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 Patient Appearance: Unkempt Patient Orientation: Person and Place Level of Consciousness: Awake Patient Behavior: Talkative, Hypersexual and Restless Mood Description: Suspicious, Anxious and Labile Affect Description: Suspicious, Labile, Angry and Apprehensive Ability to Follow Directions: Fair Speech Pattern: Perseverating and Pressured Memory Description: Episodic Impaired Diagnostics Vital Signs (24Hr): Vital Signs - 24 hr 11/15/20 08:41 11/15/20 18:00 Temperature 98.1 F Pulse Rate 79 70 Blood Pressure 128/60 147/74 H Body Mass Index 61.8 Labs Results: 10/29/20 12:09 11/12/20 11:46 Imaging Radiology Impressions: ITS Impressions Chest X-Ray 10/12/20 01:44 IMPRESSION: No evidence for acute disease. Head CT 10/12/20 19:11 IMPRESSION: No acute intracranial pathology. Venous Duplex 10/29/20 02:12 IMPRESSION: No DVT demonstrated in the left lower extremity. Foot X-Ray 11/07/20 13:45 IMPRESSION: Arthritis at the first MTP joint and calcaneal spurs. Venous Duplex 11/07/20 14:20 IMPRESSION: No DVT demonstrated in the bilateral lower extremity. Abdomen/Pelvis CT 11/12/20 15:20 IMPRESSION: Hepatosplenomegaly with fatty infiltration of the liver. Medications Medications Current Medications Generic Name Dose Route Start Last Admin Trade Name Freq PRN Reason Stop Dose Admin Acetaminophen 650 mg 10/14/20 22:36 11/06/20 00:28 Acetaminophen 325 Mg Tablet PO 650 mg Q6H PRN Administration Headache/Pain Mild Scale (1-3) Al Hydroxide/Mg Hydroxide 30 ml 10/14/20 22:36 Magnesium Hydrox/Alum Hydrox 30 Ml Oral.Susp PO Q6H PRN Heartburn/Nausea Atenolol 50 mg 10/12/20 09:00 11/15/20 08:41 Atenolol 50 Mg Tablet PO 50 mg DAILY INOCENCIO Administration Protocol Benztropine Mesylate 1 mg 10/30/20 21:00 11/15/20 20:17 Benztropine Mesylate 2 Mg/2 Ml Vial IM Not Given BID INOCENCIO Benztropine Mesylate 1 mg 11/07/20 10:16 Benztropine Mesylate 1 Mg Tablet PO BID PRN Extrapyramidal Effects Benztropine Mesylate 1 mg 11/09/20 21:00 11/15/20 19:58 Benztropine Mesylate 1 Mg Tablet PO 1 mg BID INOCENCIO Administration Clonazepam 2 mg 11/09/20 21:00 11/15/20 19:58 Clonazepam 1 Mg Tablet PO 2 mg BEDTIME INOCENCIO Administration Clotrimazole 1 appl 10/29/20 21:00 11/15/20 20:17 Clotrimazole 1 % Cream 15 Gm Tube TOPICAL Not Given BID INOCENCIO Protocol Haloperidol 10 mg 11/10/20 09:00 11/15/20 09:03 Haloperidol 5 Mg Tablet PO Not Given DAILY INOCENCIO Haloperidol 20 mg 11/15/20 21:00 11/15/20 19:59 Haloperidol 5 Mg Tablet PO 20 mg BEDTIME INOCENCIO Administration Haloperidol Lactate 10 mg 11/10/20 21:00 11/15/20 20:17 Haloperidol Lactate 5 Mg/Ml Vial IM Not Given BID INOCENCIO Hydrochlorothiazide 25 mg 10/12/20 09:00 11/15/20 08:43 Hydrochlorothiazide 25 Mg Tablet PO 25 mg DAILY INOCENCIO Administration Protocol Hydroxyzine HCl 25 mg 10/14/20 22:36 11/10/20 16:18 Hydroxyzine Hcl 25 Mg Tablet PO 25 mg Q4H PRN Administration mild Anxiety Magnesium Hydroxide 30 ml 10/14/20 22:36 Milk Of Magnesia 30 Ml Oral.Susp PO DAILY PRN Constipation Nicotine Polacrilex 4 mg 10/14/20 22:36 11/06/20 04:47 Nicotine Polacrilex 2 Mg Gum BUCCAL 4 mg Q2H PRN Administration Nicotine Cravings Trazodone HCl 50 mg 10/14/20 22:36 10/27/20 00:35 Trazodone Hcl 50 Mg Tablet PO 50 mg BEDTIME PRN Administration Insomnia Trazodone HCl 150 mg 10/30/20 21:00 11/15/20 19:58 Trazodone Hcl 50 Mg Tablet PO 150 mg BEDTIME INOCENCIO Administration Valproic Acid 500 mg 11/16/20 09:00 Valproic Acid (As Sodium Salt) 250 Mg/5 Ml Solution PO DAILY INOCENCIO Valproic Acid 1,500 mg 11/15/20 21:00 11/15/20 20:00 Valproic Acid (As Sodium Salt) 250 Mg/5 Ml Solution PO 1,500 mg BEDTIME INOCENCIO Administration Allergies Allergies Allergy/AdvReac Type Severity Reaction Status Date / Time kiwi [KIWI] Allergy Mild HIVES Verified 10/01/20 14:49 mold [MOLD EXTRACTS*] Allergy Mild HIVES Verified 10/01/20 14:49 Assessment & Plan Assessment & Plan (1) Bipolar disorder with psychotic features: Status: Acute Code(s): F31.9 - Bipolar disorder, unspecified Assessment and Plan: 1. Increase Haldol to 30 mg. Patient is not taking Depakote or only takes it at night 2. Increase depakote 500mg po TID- pt not taking it consistently but at least if she agrees she may take more therapeutic dose. Greater than 50% of the session was spent on counseling and/or coordination of care Reason for contiued inpatient stay Substantial Risk for: inability to function and rapid decompensation
[2020-11-16 09:29] VITALS: BP 131/64; PULSE 78
[2020-11-16] MEDS: atenoloL 50 MG TABLET PO (09:29)
[2020-11-16] MEDS: hydroCHLOROthiazide 25 MG TABLET PO (09:30)
[2020-11-16] MEDS: HaloperidoL 5 MG TABLET 10 MG PO (09:42)
[2020-11-16] MEDS: Benztropine Mesylate 1 MG TABLET PO ×2 (09:43→20:09)
[2020-11-16] MEDS: Clotrimazole 1 % Cream 15 GM TUBE 1 APPL TOPICAL ×2 (09:45→20:23)
[2020-11-16 18:00] VITALS: BP 139/82; PULSE 75; TEMP 36.6
[2020-11-16] MEDS: clonazePAM 1 MG TABLET 2 MG PO (20:08)
[2020-11-16] MEDS: HaloperidoL 5 MG TABLET 20 MG PO (20:09)
[2020-11-16] MEDS: traZODone HCL 50 MG TABLET 150 MG PO (20:10)
[2020-11-17 06:00] VITALS: BP 138/63; PULSE 87; RESP 18; TEMP 36.7
[2020-11-17] MEDS: hydroCHLOROthiazide 25 MG TABLET PO (09:00)
[2020-11-17] MEDS: HaloperidoL 5 MG TABLET 10 MG PO (09:00)
[2020-11-17] MEDS: Benztropine Mesylate 1 MG TABLET PO (09:01)
[2020-11-17 09:05] VITALS: BP 138/63; PULSE 68
[2020-11-17] MEDS: atenoloL 50 MG TABLET PO (09:05)
--- NOTE | 2020-11-17 19:03 | HO.PSYCHPN ---
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 She continues to report that she is 100% medium. She reports she has solved many mysteries. She denies SI/HI. She continues to present with hyper sexual behaviors, intrusive with peers, requiring significant redirection. Review of Systems Review of Systems This was limited because of her ability to answer questions correctly but there was no obvious evidence of any recent trauma convulsion or cold or flu-like illness. She had complained of bilateral leg swelling for which she had couple of ultrasounds done. Yes all other systems are reviewed and are negative Constitutional: Reports as per HPI, Reports no additional constitutional complaints, Denies chills and Denies fever(s) Eyes: Reports as per HPI and Reports no additional eye complaints Reports system reviewed and no additional complaints, except as documented and Reports as per HPI Cardiovascular: Reports as per HPI, Reports no additional cardiovascular complaints, Denies chest pain, Denies Epigastric Pain and Denies dyspnea Respiratory: Reports as per HPI, Reports no additional respiratory complaints, Denies chest congestion, Denies cough and Denies dyspnea Gastrointestinal: Reports as per HPI, Reports no additional gastrointestinal complaints, Denies abdominal pain, Denies change in stool character, Denies constipation and Denies vomiting Musculoskeletal: Reports no additional musculoskeletal complaints and Reports as per HPI Reports system reviewed and no additional complaints, except as documented and Reports as per HPI Psychiatric: Reports no additional psychiatric complaints Mental Status Exam Mental Status Exam Narrative: Appearance: [place] woman, casually groomed, somewhat disheveled today, in NAD Behavior: guarded and suspicious Psychomotor: no agitation or retardation noted Speech: clear, normal rate but hyperverbal, spontaneous TP: tangential TC: suspiciousness about other taking 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 Diagnostics Vital Signs (24Hr): Vital Signs - 24 hr 11/17/20 06:00 11/17/20 09:05 Temperature 98.1 F Pulse Rate 87 68 Respiratory Rate 18 Blood Pressure 138/63 138/63 Body Mass Index 61.8 Labs Results: 10/29/20 12:09 11/12/20 11:46 Imaging Radiology Impressions: ITS Impressions Chest X-Ray 10/12/20 01:44 IMPRESSION: No evidence for acute disease. Head CT 10/12/20 19:11 IMPRESSION: No acute intracranial pathology. Venous Duplex 10/29/20 02:12 IMPRESSION: No DVT demonstrated in the left lower extremity. Foot X-Ray 11/07/20 13:45 IMPRESSION: Arthritis at the first MTP joint and calcaneal spurs. Venous Duplex 11/07/20 14:20 IMPRESSION: No DVT demonstrated in the bilateral lower extremity. Abdomen/Pelvis CT 11/12/20 15:20 IMPRESSION: Hepatosplenomegaly with fatty infiltration of the liver. Medications Medications Current Medications Generic Name Dose Route Start Last Admin Trade Name Freq PRN Reason Stop Dose Admin Acetaminophen 650 mg 10/14/20 22:36 11/06/20 00:28 Acetaminophen 325 Mg Tablet PO 650 mg Q6H PRN Administration Headache/Pain Mild Scale (1-3) Al Hydroxide/Mg Hydroxide 30 ml 10/14/20 22:36 Magnesium Hydrox/Alum Hydrox 30 Ml Oral.Susp PO Q6H PRN Heartburn/Nausea Atenolol 50 mg 10/12/20 09:00 11/17/20 09:05 Atenolol 50 Mg Tablet PO 50 mg DAILY INOCENCIO Administration Protocol Benztropine Mesylate 1 mg 10/30/20 21:00 11/17/20 09:06 Benztropine Mesylate 2 Mg/2 Ml Vial IM Not Given BID INOCENCIO Benztropine Mesylate 1 mg 11/07/20 10:16 Benztropine Mesylate 1 Mg Tablet PO BID PRN Extrapyramidal Effects Benztropine Mesylate 1 mg 11/09/20 21:00 11/17/20 09:01 Benztropine Mesylate 1 Mg Tablet PO 1 mg BID INOCENCIO Administration Clonazepam 2 mg 11/09/20 21:00 11/16/20 20:08 Clonazepam 1 Mg Tablet PO 2 mg BEDTIME INOCENCIO Administration Clotrimazole 1 appl 10/29/20 21:00 11/17/20 10:50 Clotrimazole 1 % Cream 15 Gm Tube TOPICAL Not Given BID [facility] Protocol Haloperidol 10 mg 11/10/20 09:00 11/17/20 09:00 Haloperidol 5 Mg Tablet PO 10 mg DAILY INOCENCIO Administration Haloperidol 20 mg 11/15/20 21:00 11/16/20 20:09 Haloperidol 5 Mg Tablet PO 20 mg BEDTIME INOCENCIO Administration Haloperidol Lactate 10 mg 11/10/20 21:00 11/17/20 09:07 Haloperidol Lactate 5 Mg/Ml Vial IM Not Given BID INOCENCIO Hydrochlorothiazide 25 mg 10/12/20 09:00 11/17/20 09:00 Hydrochlorothiazide 25 Mg Tablet PO 25 mg DAILY INOCENCIO Administration Protocol Hydroxyzine HCl 25 mg 10/14/20 22:36 11/10/20 16:18 Hydroxyzine Hcl 25 Mg Tablet PO 25 mg Q4H PRN Administration mild Anxiety Magnesium Hydroxide 30 ml 10/14/20 22:36 Milk Of Magnesia 30 Ml Oral.Susp PO DAILY PRN Constipation Nicotine Polacrilex 4 mg 10/14/20 22:36 11/06/20 04:47 Nicotine Polacrilex 2 Mg Gum BUCCAL 4 mg Q2H PRN Administration Nicotine Cravings Trazodone HCl 50 mg 10/14/20 22:36 10/27/20 00:35 Trazodone Hcl 50 Mg Tablet PO 50 mg BEDTIME PRN Administration Insomnia Trazodone HCl 150 mg 10/30/20 21:00 11/16/20 20:10 Trazodone Hcl 50 Mg Tablet PO 150 mg BEDTIME INOCENCIO Administration Valproic Acid 500 mg 11/16/20 09:00 11/17/20 08:59 Valproic Acid (As Sodium Salt) 250 Mg/5 Ml Solution PO 500 mg DAILY INOCENCIO Administration Valproic Acid 1,500 mg 11/15/20 21:00 11/16/20 20:10 Valproic Acid (As Sodium Salt) 250 Mg/5 Ml Solution PO 1,500 mg BEDTIME INOCENCIO Administration Allergies Allergies Allergy/AdvReac Type Severity Reaction Status Date / Time kiwi [KIWI] Allergy Mild HIVES Verified 10/01/20 14:49 mold [MOLD EXTRACTS*] Allergy Mild HIVES Verified 10/01/20 14:49 Assessment & Plan Assessment & Plan (1) Bipolar disorder with psychotic features: Status: Acute Code(s): F31.9 - Bipolar disorder, unspecified Assessment and Plan: 1. Increase Haldol to 30 mg. Patient is not taking Depakote or only takes it at night 2. Increase depakote 500mg po TID- pt not taking it consistently but at least if she agrees she may take more therapeutic dose. Greater than 50% of the session was spent on counseling and/or coordination of care Reason for contiued inpatient stay Substantial Risk for: inability to function
[2020-11-17 21:40] VITALS: BP 135/70; PULSE 77; TEMP 36.3
[2020-11-17] MEDS: Haloperidol Lactate 5 MG/ML VIAL 10 MG IM (21:45)
[2020-11-17] MEDS: Benztropine Mesylate 2 MG/2 ML VIAL 1 MG IM (21:46)
[2020-11-18 06:40] VITALS: BP 139/73; PULSE 75; RESP 18; TEMP 36.4; O2SAT 95
[2020-11-18] MEDS: hydroCHLOROthiazide 25 MG TABLET PO (08:21)
[2020-11-18] MEDS: HaloperidoL 5 MG TABLET 10 MG PO (08:22)
[2020-11-18] MEDS: Benztropine Mesylate 1 MG TABLET PO ×2 (08:22→20:05)
[2020-11-18 08:26] VITALS: BP 138/71; PULSE 81
[2020-11-18] MEDS: atenoloL 50 MG TABLET PO (08:26)
--- NOTE | 2020-11-18 09:44 | P.PNPSI_ITS ---
Subjective Subjective Date of Service: 11/19/20 Reason For Visit: Acute Psychosis Interim History: Pt taking po medications more consistently with much encouragement. Pt slightly less agitated but continues to present with hypersexual behaviors, labile, poor boundaries. She continues to endorse erotomanic delusions of wanting to the alex who she thinks is also in love with her. She continues to report that she is a medium and is solving mysteries. Very little coherent or base in reality content in her conversations. Review of Systems Review of Systems This was limited because of her ability to answer questions correctly but there was no obvious evidence of any recent trauma convulsion or cold or flu- like illness. She had complained of bilateral leg swelling for which she had couple of ultrasounds done. Yes all other systems are reviewed and are negative Constitutional: Reports as per HPI, Reports no additional constitutional complaints, Denies chills and Denies fever(s) Eyes: Reports as per HPI and Reports no additional eye complaints Reports system reviewed and no additional complaints, except as documented and Reports as per HPI Cardiovascular: Reports as per HPI, Reports no additional cardiovascular complaints, Denies chest pain, Denies Epigastric Pain and Denies dyspnea Respiratory: Reports as per HPI, Reports no additional respiratory complaints, Denies chest congestion, Denies cough and Denies dyspnea Gastrointestinal: Reports as per HPI, Reports no additional gastrointestinal complaints, Denies abdominal pain, Denies change in stool character, Denies constipation and Denies vomiting Musculoskeletal: Reports no additional musculoskeletal complaints and Reports as per HPI Reports system reviewed and no additional complaints, except as documented and Reports as per HPI Psychiatric: Reports no additional psychiatric complaints Mental Status Exam Mental Status Exam Narrative: Appearance: [place] woman, casually groomed, somewhat disheveled today, in NAD Behavior: guarded and suspicious Psychomotor: no agitation or retardation noted Speech: clear, normal rate but hyperverbal, spontaneous TP: tangential TC: suspiciousness about other taking 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 Diagnostics Vital Signs (24Hr): Vital Signs - 24 hr 11/18/20 18:00 11/19/20 08:20 Temperature 97.5 F Pulse Rate 69 75 Blood Pressure 133/87 125/60 Body Mass Index 61.8 Labs Results: 10/29/20 12:09 11/12/20 11:46 Labs: Laboratory Results - last 48 hr 11/12/20 11:46 Anti-Cardiolipin IgG Ab <14 Anti-Cardiolipin IgM Ab <12 Imaging Radiology Impressions: ITS Impressions Chest X-Ray 10/12/20 01:44 IMPRESSION: No evidence for acute disease. Head CT 10/12/20 19:11 IMPRESSION: No acute intracranial pathology. Venous Duplex 10/29/20 02:12 IMPRESSION: No DVT demonstrated in the left lower extremity. Foot X-Ray 11/07/20 13:45 IMPRESSION: Arthritis at the first MTP joint and calcaneal spurs. Venous Duplex 11/07/20 14:20 IMPRESSION: No DVT demonstrated in the bilateral lower extremity. Abdomen/Pelvis CT 11/12/20 15:20 IMPRESSION: Hepatosplenomegaly with fatty infiltration of the liver. Medications Medications Current Medications Generic Name Dose Route Start Last Admin Trade Name Freq PRN Reason Stop Dose Admin Acetaminophen 650 mg 10/14/20 22:36 11/06/20 00:28 Acetaminophen 325 Mg Tablet PO 650 mg Q6H PRN Administration Headache/Pain Mild Scale (1-3) Al Hydroxide/Mg Hydroxide 30 ml 10/14/20 22:36 Magnesium Hydrox/Alum Hydrox 30 Ml Oral.Susp PO Q6H PRN Heartburn/Nausea Atenolol 50 mg 10/12/20 09:00 11/19/20 08:20 Atenolol 50 Mg Tablet PO 50 mg DAILY INOCENCIO Administration Protocol Benztropine Mesylate 1 mg 10/30/20 21:00 11/19/20 08:25 Benztropine Mesylate 2 Mg/2 Ml Vial IM Not Given BID INOCENCIO Benztropine Mesylate 1 mg 11/07/20 10:16 Benztropine Mesylate 1 Mg Tablet PO BID PRN Extrapyramidal Effects Benztropine Mesylate 1 mg 11/09/20 21:00 11/19/20 08:19 Benztropine Mesylate 1 Mg Tablet PO 1 mg BID INOCENCIO Administration Clonazepam 2 mg 11/09/20 21:00 11/18/20 19:51 Clonazepam 1 Mg Tablet PO 2 mg BEDTIME INOCENCIO Administration Clotrimazole 1 appl 10/29/20 21:00 11/19/20 08:27 Clotrimazole 1 % Cream 15 Gm Tube TOPICAL Not Given BID INOCENCIO Protocol Haloperidol 10 mg 11/10/20 09:00 11/19/20 08:19 Haloperidol 5 Mg Tablet PO 10 mg DAILY INOCENCIO Administration Haloperidol 20 mg 11/15/20 21:00 11/18/20 19:51 Haloperidol 5 Mg Tablet PO 20 mg BEDTIME INOCENCIO Administration Haloperidol Lactate 10 mg 11/10/20 21:00 11/19/20 08:27 Haloperidol Lactate 5 Mg/Ml Vial IM Not Given BID INOCENCIO Hydrochlorothiazide 25 mg 10/12/20 09:00 11/19/20 08:20 Hydrochlorothiazide 25 Mg Tablet PO 25 mg DAILY INOCENCIO Administration Protocol Hydroxyzine HCl 25 mg 10/14/20 22:36 11/10/20 16:18 Hydroxyzine Hcl 25 Mg Tablet PO 25 mg Q4H PRN Administration mild Anxiety Magnesium Hydroxide 30 ml 10/14/20 22:36 Milk Of Magnesia 30 Ml Oral.Susp PO DAILY PRN Constipation Nicotine Polacrilex 4 mg 10/14/20 22:36 11/06/20 04:47 Nicotine Polacrilex 2 Mg Gum BUCCAL 4 mg Q2H PRN Administration Nicotine Cravings Trazodone HCl 50 mg 10/14/20 22:36 10/27/20 00:35 Trazodone Hcl 50 Mg Tablet PO 50 mg BEDTIME PRN Administration Insomnia Trazodone HCl 150 mg 10/30/20 21:00 11/18/20 19:52 Trazodone Hcl 50 Mg Tablet PO 150 mg BEDTIME INOCENCIO Administration Valproic Acid 500 mg 11/16/20 09:00 11/19/20 08:19 Valproic Acid (As Sodium Salt) 250 Mg/5 Ml Solution PO 500 mg DAILY INOCENCIO Administration Valproic Acid 1,500 mg 11/15/20 21:00 11/18/20 19:56 Valproic Acid (As Sodium Salt) 250 Mg/5 Ml Solution PO 1,500 mg BEDTIME INOCENCIO Administration Allergies Allergies Allergy/AdvReac Type Severity Reaction Status Date / Time kiwi [KIWI] Allergy Mild HIVES Verified 10/01/20 14:49 mold [MOLD EXTRACTS*] Allergy Mild HIVES Verified 10/01/20 14:49 Assessment & Plan Assessment & Plan (1) Bipolar disorder with psychotic features: Status: Acute Code(s): F31.9 - Bipolar disorder, unspecified Assessment and Plan: 1. Increase Haldol to 30 mg. Patient is not taking Depakote or only takes it at night 2. Increase depakote 500mg po TID- pt not taking it consistently but at least if she agrees she may take more therapeutic dose. Greater than 50% of the session was spent on counseling and/or coordination of care Reason for contiued inpatient stay Substantial Risk for: inability to function
[2020-11-18 18:00] VITALS: BP 133/87; PULSE 69; TEMP 36.4
[2020-11-18 18:17] LABS: Cardiolipin IgG Ab <14 GPL; Cardiolipin IgM Ab <12 MPL
[2020-11-18] MEDS: clonazePAM 1 MG TABLET 2 MG PO (19:51)
[2020-11-18] MEDS: HaloperidoL 5 MG TABLET 20 MG PO (19:51)
[2020-11-18] MEDS: traZODone HCL 50 MG TABLET 150 MG PO (19:52)
[2020-11-19] MEDS: Benztropine Mesylate 1 MG TABLET PO ×2 (08:19→20:25)
[2020-11-19] MEDS: HaloperidoL 5 MG TABLET 10 MG PO (08:19)
[2020-11-19 08:20] VITALS: BP 125/60; PULSE 75
[2020-11-19] MEDS: atenoloL 50 MG TABLET PO (08:20)
[2020-11-19] MEDS: hydroCHLOROthiazide 25 MG TABLET PO (08:20)
[2020-11-19 10:22] VITALS: RESP 16; TEMP 36.6; O2SAT 97
[2020-11-19 18:00] VITALS: BP 129/71; PULSE 68; TEMP 36.4
--- NOTE | 2020-11-19 20:07 | P.PNPSI_ITS ---
Subjective Subjective Date of Service: 11/19/20 Reason For Visit: Acute Psychosis Interim History: Pt continues to present with delusions related to being a medium, having special cortes. She also reports solving mysteries and wanting team to contact Joo the alex who she believes is her soul mate. She continues to present as labile, intrusive with peers, hypersexual behaviors. Review of Systems Review of Systems This was limited because of her ability to answer questions correctly but there was no obvious evidence of any recent trauma convulsion or cold or flu- like illness. She had complained of bilateral leg swelling for which she had couple of ultrasounds done. Yes all other systems are reviewed and are negative Constitutional: Reports as per HPI, Reports no additional constitutional complaints, Denies chills and Denies fever(s) Eyes: Reports as per HPI and Reports no additional eye complaints Reports system reviewed and no additional complaints, except as documented and Reports as per HPI Cardiovascular: Reports as per HPI, Reports no additional cardiovascular complaints, Denies chest pain, Denies Epigastric Pain and Denies dyspnea Respiratory: Reports as per HPI, Reports no additional respiratory complaints, Denies chest congestion, Denies cough and Denies dyspnea Gastrointestinal: Reports as per HPI, Reports no additional gastrointestinal com plaints, Denies abdominal pain, Denies change in stool character, Denies constipation and Denies vomiting Musculoskeletal: Reports no additional musculoskeletal complaints and Reports as per HPI Reports system reviewed and no additional complaints, except as documented and Reports as per HPI Psychiatric: Reports no additional psychiatric complaints Mental Status Exam Mental Status Exam Narrative: Appearance: [place] woman, casually groomed, somewhat disheveled today, in NAD Behavior: guarded and suspicious Psychomotor: no agitation or retardation noted Speech: clear, normal rate but hyperverbal, spontaneous TP: tangential TC: suspiciousness about other taking 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 Diagnostics Vital Signs (24Hr): Vital Signs - 24 hr 11/19/20 08:20 11/19/20 10:22 Temperature 97.8 F Pulse Rate 75 Respiratory Rate 16 Blood Pressure 125/60 Pulse Oximetry 97 Body Mass Index 61.8 Labs Results: 10/29/20 12:09 11/12/20 11:46 Labs: Laboratory Results - last 48 hr 11/12/20 11:46 Anti-Cardiolipin IgG Ab <14 Anti-Cardiolipin IgM Ab <12 Imaging Radiology Impressions: ITS Impressions Chest X-Ray 10/12/20 01:44 IMPRESSION: No evidence for acute disease. Head CT 10/12/20 19:11 IMPRESSION: No acute intracranial pathology. Venous Duplex 10/29/20 02:12 IMPRESSION: No DVT demonstrated in the left lower extremity. Foot X-Ray 11/07/20 13:45 IMPRESSION: Arthritis at the first MTP joint and calcaneal spurs. Venous Duplex 11/07/20 14:20 IMPRESSION: No DVT demonstrated in the bilateral lower extremity. Abdomen/Pelvis CT 11/12/20 15:20 IMPRESSION: Hepatosplenomegaly with fatty infiltration of the liver. Medications Medications Current Medications Generic Name Dose Route Start Last Admin Trade Name Freq PRN Reason Stop Dose Admin Acetaminophen 650 mg 10/14/20 22:36 11/06/20 00:28 Acetaminophen 325 Mg Tablet PO 650 mg Q6H PRN Administration Headache/Pain Mild Scale (1-3) Al Hydroxide/Mg Hydroxide 30 ml 10/14/20 22:36 Magnesium Hydrox/Alum Hydrox 30 Ml Oral.Susp PO Q6H PRN Heartburn/Nausea Atenolol 50 mg 10/12/20 09:00 11/19/20 08:20 Atenolol 50 Mg Tablet PO 50 mg DAILY INOCENCIO Administration Protocol Benztropine Mesylate 1 mg 10/30/20 21:00 11/19/20 08:25 Benztropine Mesylate 2 Mg/2 Ml Vial IM Not Given BID INOCENCIO Benztropine Mesylate 1 mg 11/07/20 10:16 Benztropine Mesylate 1 Mg Tablet PO BID PRN Extrapyramidal Effects Benztropine Mesylate 1 mg 11/09/20 21:00 11/19/20 08:19 Benztropine Mesylate 1 Mg Tablet PO 1 mg BID INOCENCIO Administration Clonazepam 2 mg 11/09/20 21:00 11/18/20 19:51 Clonazepam 1 Mg Tablet PO 2 mg BEDTIME INOCENCIO Administration Clotrimazole 1 appl 10/29/20 21:00 11/19/20 08:27 Clotrimazole 1 % Cream 15 Gm Tube TOPICAL Not Given BID INOCENCIO Protocol Haloperidol 10 mg 11/10/20 09:00 11/19/20 08:19 Haloperidol 5 Mg Tablet PO 10 mg DAILY INOCENCIO Administration Haloperidol 20 mg 11/15/20 21:00 11/18/20 19:51 Haloperidol 5 Mg Tablet PO 20 mg BEDTIME INOCENCIO Administration Haloperidol Lactate 10 mg 11/19/20 15:03 Haloperidol Lactate 5 Mg/Ml Vial IM BID PRN oral refusal Hydrochlorothiazide 25 mg 10/12/20 09:00 11/19/20 08:20 Hydrochlorothiazide 25 Mg Tablet PO 25 mg DAILY INOCENCIO Administration Protocol Hydroxyzine HCl 25 mg 10/14/20 22:36 11/10/20 16:18 Hydroxyzine Hcl 25 Mg Tablet PO 25 mg Q4H PRN Administration mild Anxiety Magnesium Hydroxide 30 ml 10/14/20 22:36 Milk Of Magnesia 30 Ml Oral.Susp PO DAILY PRN Constipation Nicotine Polacrilex 4 mg 10/14/20 22:36 11/06/20 04:47 Nicotine Polacrilex 2 Mg Gum BUCCAL 4 mg Q2H PRN Administration Nicotine Cravings Trazodone HCl 50 mg 10/14/20 22:36 10/27/20 00:35 Trazodone Hcl 50 Mg Tablet PO 50 mg BEDTIME PRN Administration Insomnia Trazodone HCl 150 mg 10/30/20 21:00 11/18/20 19:52 Trazodone Hcl 50 Mg Tablet PO 150 mg BEDTIME INOCENCIO Administration Valproic Acid 500 mg 11/16/20 09:00 11/19/20 08:19 Valproic Acid (As Sodium Salt) 250 Mg/5 Ml Solution PO 500 mg DAILY INOCENCIO Administration Valproic Acid 1,500 mg 11/15/20 21:00 11/18/20 19:56 Valproic Acid (As Sodium Salt) 250 Mg/5 Ml Solution PO 1,500 mg BEDTIME INOCENCIO Administration Allergies Allergies Allergy/AdvReac Type Severity Reaction Status Date / Time kiwi [KIWI] Allergy Mild HIVES Verified 10/01/20 14:49 mold [MOLD EXTRACTS*] Allergy Mild HIVES Verified 10/01/20 14:49 Assessment & Plan Assessment & Plan (1) Bipolar disorder with psychotic features: Status: Acute Code(s): F31.9 - Bipolar disorder, unspecified Greater than 50% of the session was spent on counseling and/or coordination of care Reason for contiued inpatient stay Substantial Risk for: inability to function
[2020-11-19] MEDS: HaloperidoL 5 MG TABLET 20 MG PO (20:25)
[2020-11-19] MEDS: clonazePAM 1 MG TABLET 2 MG PO (20:25)
[2020-11-19] MEDS: traZODone HCL 50 MG TABLET 150 MG PO (20:26)
[2020-11-20 06:35] VITALS: BP 144/70; PULSE 72; RESP 18; TEMP 36.9; O2SAT 98
[2020-11-20 07:00] VITALS: BMI 60.1
[2020-11-20] MEDS: hydroCHLOROthiazide 25 MG TABLET PO (09:00)
[2020-11-20] MEDS: Benztropine Mesylate 1 MG TABLET PO ×2 (09:00→20:28)
[2020-11-20 09:01] VITALS: BP 133/85; PULSE 72
[2020-11-20] MEDS: atenoloL 50 MG TABLET PO (09:01)
[2020-11-20] MEDS: HaloperidoL 5 MG TABLET 10 MG PO (09:01)
--- NOTE | 2020-11-20 09:11 | P.PNPSI_ITS ---
Subjective Subjective Date of Service: 11/26/20 Reason For Visit: Acute Psychosis Interim History: Pt seen in her room. She reports zero voices, I'm 300% medium, I can solve mysteries Pt continues to present with erotomatic delusions, some paranoid stating that the unit is bugged. She denies SI/HI. Per nursing, pt sleeping slightly better at night. During day, less intrusive to peers and staff. Review of Systems Review of Systems This was limited because of her ability to answer questions correctly but there was no obvious evidence of any recent trauma convulsion or cold or flu- like illness. She had complained of bilateral leg swelling for which she had couple of ultrasounds done. Yes all other systems are reviewed and are negative Constitutional: Reports as per HPI, Reports no additional constitutional complaints, Denies chills and Denies fever(s) Eyes: Reports as per HPI and Reports no additional eye complaints Reports system reviewed and no additional complaints, except as documented and Reports as per HPI Cardiovascular: Reports as per HPI, Reports no additional cardiovascular complaints, Denies chest pain, Denies Epigastric Pain and Denies dyspnea Respiratory: Reports as per HPI, Reports no additional respiratory complaints, Denies chest congestion, Denies cough and Denies dyspnea Gastrointestinal: Reports as per HPI, Reports no additional gastrointestinal complaints, Denies abdominal pain, Denies change in stool character, Denies constipation and Denies vomiting Musculoskeletal: Reports no additional musculoskeletal complaints and Reports as per HPI Reports system reviewed and no additional complaints, except as documented and Reports as per HPI Psychiatric: Reports no additional psychiatric complaints Mental Status Exam Mental Status Exam Narrative: Appearance: [place] woman, casually groomed, somewhat disheveled today, in NAD Behavior: guarded and suspicious Psychomotor: no agitation or retardation noted Speech: clear, normal rate but hyperverbal, spontaneous TP: tangential TC: suspiciousness about other taking 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 Patient Appearance: Unkempt Patient Orientation: Person and Place Level of Consciousness: Awake Patient Behavior: Talkative, Hypersexual and Restless Mood Description: Suspicious, Anxious and Labile Affect Description: Suspicious, Labile, Angry and Apprehensive Ability to Follow Directions: Fair Speech Pattern: Perseverating and Pressured Memory Description: Episodic Impaired Diagnostics Vital Signs (24Hr): Vital Signs - 24 hr 11/25/20 18:00 11/26/20 08:48 Temperature 97.4 F Pulse Rate 83 77 Blood Pressure 137/77 144/88 H Body Mass Index 60.1 Labs Results: 10/29/20 12:09 11/12/20 11:46 Labs: Laboratory Results - last 48 hr 11/21/20 09:02 Lyme Screen IgG & IgM <0.90 Lyme Progressive Test TNP Imaging Radiology Impressions: ITS Impressions Chest X-Ray 10/12/20 01:44 IMPRESSION: No evidence for acute disease. Head CT 10/12/20 19:11 IMPRESSION: No acute intracranial pathology. Venous Duplex 10/29/20 02:12 IMPRESSION: No DVT demonstrated in the left lower extremity. Foot X-Ray 11/07/20 13:45 IMPRESSION: Arthritis at the first MTP joint and calcaneal spurs. Venous Duplex 11/07/20 14:20 IMPRESSION: No DVT demonstrated in the bilateral lower extremity. Abdomen/Pelvis CT 11/12/20 15:20 IMPRESSION: Hepatosplenomegaly with fatty infiltration of the liver. Medications Medications Current Medications Generic Name Dose Route Start Last Admin Trade Name Freq PRN Reason Stop Dose Admin Acetaminophen 650 mg 10/14/20 22:36 11/06/20 00:28 Acetaminophen 325 Mg Tablet PO 650 mg Q6H PRN Administration Headache/Pain Mild Scale (1-3) Al Hydroxide/Mg Hydroxide 30 ml 10/14/20 22:36 Magnesium Hydrox/Alum Hydrox 30 Ml Oral.Susp PO Q6H PRN Heartburn/Nausea Atenolol 50 mg 10/12/20 09:00 11/26/20 08:48 Atenolol 50 Mg Tablet PO 50 mg DAILY INOCENCIO Administration Protocol Benztropine Mesylate 1 mg 11/07/20 10:16 Benztropine Mesylate 1 Mg Tablet PO BID PRN Extrapyramidal Effects Benztropine Mesylate 1 mg 11/09/20 21:00 11/26/20 08:47 Benztropine Mesylate 1 Mg Tablet PO 1 mg BID INOCENCIO Administration Benztropine Mesylate 1 mg 11/20/20 12:11 Benztropine Mesylate 2 Mg/2 Ml Vial IM BID PRN oral refusal Clonazepam 2 mg 11/09/20 21:00 11/25/20 20:46 Clonazepam 1 Mg Tablet PO 2 mg BEDTIME INOCENCIO Administration Clotrimazole 1 appl 10/29/20 21:00 11/26/20 08:57 Clotrimazole 1 % Cream 15 Gm Tube TOPICAL 1 appl BID INOCENCIO Administration Protocol Haloperidol 10 mg 11/10/20 09:00 11/26/20 08:48 Haloperidol 5 Mg Tablet PO 10 mg DAILY INOCENCIO Administration Haloperidol 20 mg 11/15/20 21:00 11/25/20 20:47 Haloperidol 5 Mg Tablet PO 20 mg BEDTIME INOCENCIO Administration Haloperidol Lactate 10 mg 11/19/20 15:03 Haloperidol Lactate 5 Mg/Ml Vial IM BID PRN oral refusal Hydrochlorothiazide 25 mg 10/12/20 09:00 11/26/20 08:47 Hydrochlorothiazide 25 Mg Tablet PO 25 mg DAILY INOCENCIO Administration Protocol Hydroxyzine HCl 25 mg 10/14/20 22:36 11/10/20 16:18 Hydroxyzine Hcl 25 Mg Tablet PO 25 mg Q4H PRN Administration mild Anxiety Magnesium Hydroxide 30 ml 10/14/20 22:36 Milk Of Magnesia 30 Ml Oral.Susp PO DAILY PRN Constipation Nicotine Polacrilex 4 mg 10/14/20 22:36 11/06/20 04:47 Nicotine Polacrilex 2 Mg Gum BUCCAL 4 mg Q2H PRN Administration Nicotine Cravings Trazodone HCl 50 mg 10/14/20 22:36 10/27/20 00:35 Trazodone Hcl 50 Mg Tablet PO 50 mg BEDTIME PRN Administration Insomnia Trazodone HCl 150 mg 10/30/20 21:00 11/25/20 20:47 Trazodone Hcl 50 Mg Tablet PO 150 mg BEDTIME INOCENCIO Administration Valproic Acid 500 mg 11/16/20 09:00 11/26/20 08:49 Valproic Acid (As Sodium Salt) 250 Mg/5 Ml Solution PO 500 mg DAILY INOCENCIO Administration Valproic Acid 1,500 mg 11/15/20 21:00 11/25/20 20:44 Valproic Acid (As Sodium Salt) 250 Mg/5 Ml Solution PO 1,500 mg BEDTIME INOCENCIO Administration Allergies Allergies Allergy/AdvReac Type Severity Reaction Status Date / Time kiwi [KIWI] Allergy Mild HIVES Verified 10/01/20 14:49 mold [MOLD EXTRACTS*] Allergy Mild HIVES Verified 10/01/20 14:49 Assessment & Plan Assessment & Plan (1) Bipolar disorder with psychotic features: Status: Acute Code(s): F31.9 - Bipolar disorder, unspecified Assessment and Plan: 1. Increase Haldol to 30 mg. Patient is not taking Depakote or only takes it at night 2. Increase depakote 500mg po TID- pt not taking it consistently but at least if she agrees she may take more therapeutic dose. Greater than 50% of the session was spent on counseling and/or coordination of care Reason for contiued inpatient stay Substantial Risk for: inability to function
[2020-11-20 10:05] LABS: Valproate 72.8 mcg/mL (50.0-100.0)
[2020-11-20 18:00] VITALS: BP 138/56; PULSE 73; TEMP 36.9
[2020-11-20] MEDS: clonazePAM 1 MG TABLET 2 MG PO (20:27)
[2020-11-20] MEDS: HaloperidoL 5 MG TABLET 20 MG PO (20:28)
[2020-11-20] MEDS: traZODone HCL 50 MG TABLET 150 MG PO (20:28)
[2020-11-21 03:30] VITALS: BP 144/59; PULSE 66; RESP 18; TEMP 36.2; O2SAT 99
[2020-11-21 08:16] VITALS: BP 136/64; PULSE 83
[2020-11-21] MEDS: HaloperidoL 5 MG TABLET 10 MG PO (08:16)
[2020-11-21] MEDS: hydroCHLOROthiazide 25 MG TABLET PO (08:16)
[2020-11-21] MEDS: atenoloL 50 MG TABLET PO (08:16)
[2020-11-21] MEDS: Benztropine Mesylate 1 MG TABLET PO ×2 (08:16→20:58)
--- NOTE | 2020-11-21 09:14 | P.PNPSI_ITS ---
Subjective Subjective Date of Service: 11/26/20 Reason For Visit: Acute Psychosis Interim History: Pt reports that she needs IV and asks for wheelchair and transfer to [facility]. Pt reports none specific abdominal pain. She denies constipation or diarrhea. She quickly denies pain, but continues to ask for wheelchair. She then asks for discharge home as she does not think she needs treatment. She reports her sister should be here because she thinks sister is suicidal and was using drugs, which is not the case. Pt denies SI/HI. Pt slightly less intrusive and agitated with peers and staff but thought process, ability to complete ADLS is limited, still requiring significant support from [facility]. Review of Systems Review of Systems This was limited because of her ability to answer questions correctly but there was no obvious evidence of any recent trauma convulsion or cold or flu- like illness. She had complained of bilateral leg swelling for which she had couple of ultrasounds done. Yes all other systems are reviewed and are negative Constitutional: Reports as per HPI, Reports no additional constitutional complaints, Denies chills and Denies fever(s) Eyes: Reports as per HPI and Reports no additional eye complaints Reports system reviewed and no additional complaints, except as documented and Reports as per HPI Cardiovascular: Reports as per HPI, Reports no additional cardiovascular complaints, Denies chest pain, Denies Epigastric Pain and Denies dyspnea Respiratory: Reports as per HPI, Reports no additional respiratory complaints, Denies chest congestion, Denies cough and Denies dyspnea Gastrointestinal: Reports as per HPI, Reports no additional gastrointestinal complaints, Denies abdominal pain, Denies change in stool character, Denies constipation and Denies vomiting Musculoskeletal: Reports no additional musculoskeletal complaints and Reports as per HPI Reports system reviewed and no additional complaints, except as documented and Reports as per HPI Psychiatric: Reports no additional psychiatric complaints Mental Status Exam Mental Status Exam Narrative: Appearance: [place] woman, casually groomed, somewhat disheveled today, in NAD Behavior: guarded and suspicious Psychomotor: no agitation or retardation noted Speech: clear, normal rate but hyperverbal, spontaneous TP: tangential TC: suspiciousness about other taking 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 Patient Appearance: Unkempt Patient Orientation: Person and Place Level of Consciousness: Awake Patient Behavior: Talkative, Hypersexual and Restless Mood Description: Suspicious, Anxious and Labile Affect Description: Suspicious, Labile, Angry and Apprehensive Ability to Follow Directions: Fair Speech Pattern: Perseverating and Pressured Memory Description: Episodic Impaired Diagnostics Vital Signs (24Hr): Vital Signs - 24 hr 11/25/20 18:00 11/26/20 08:48 Temperature 97.4 F Pulse Rate 83 77 Blood Pressure 137/77 144/88 H Body Mass Index 60.1 Labs Results: 10/29/20 12:09 11/12/20 11:46 Labs: Laboratory Results - last 48 hr 11/21/20 09:02 Lyme Screen IgG & IgM <0.90 Lyme Progressive Test TNP Imaging Radiology Impressions: ITS Impressions Chest X-Ray 10/12/20 01:44 IMPRESSION: No evidence for acute disease. Head CT 10/12/20 19:11 IMPRESSION: No acute intracranial pathology. Venous Duplex 10/29/20 02:12 IMPRESSION: No DVT demonstrated in the left lower extremity. Foot X-Ray 11/07/20 13:45 IMPRESSION: Arthritis at the first MTP joint and calcaneal spurs. Venous Duplex 11/07/20 14:20 IMPRESSION: No DVT demonstrated in the bilateral lower extremity. Abdomen/Pelvis CT 11/12/20 15:20 IMPRESSION: Hepatosplenomegaly with fatty infiltration of the liver. Medications Medications Current Medications Generic Name Dose Route Start Last Admin Trade Name Freq PRN Reason Stop Dose Admin Acetaminophen 650 mg 10/14/20 22:36 11/06/20 00:28 Acetaminophen 325 Mg Tablet PO 650 mg Q6H PRN Administration Headache/Pain Mild Scale (1-3) Al Hydroxide/Mg Hydroxide 30 ml 10/14/20 22:36 Magnesium Hydrox/Alum Hydrox 30 Ml Oral.Susp PO Q6H PRN Heartburn/Nausea Atenolol 50 mg 10/12/20 09:00 11/26/20 08:48 Atenolol 50 Mg Tablet PO 50 mg DAILY INOCENCIO Administration Protocol Benztropine Mesylate 1 mg 11/07/20 10:16 Benztropine Mesylate 1 Mg Tablet PO BID PRN Extrapyramidal Effects Benztropine Mesylate 1 mg 11/09/20 21:00 11/26/20 08:47 Benztropine Mesylate 1 Mg Tablet PO 1 mg BID INOCENCIO Administration Benztropine Mesylate 1 mg 11/20/20 12:11 Benztropine Mesylate 2 Mg/2 Ml Vial IM BID PRN oral refusal Clonazepam 2 mg 11/09/20 21:00 11/25/20 20:46 Clonazepam 1 Mg Tablet PO 2 mg BEDTIME INOCENCIO Administration Clotrimazole 1 appl 10/29/20 21:00 11/26/20 08:57 Clotrimazole 1 % Cream 15 Gm Tube TOPICAL 1 appl BID INOCENCIO Administration Protocol Haloperidol 10 mg 11/10/20 09:00 11/26/20 08:48 Haloperidol 5 Mg Tablet PO 10 mg DAILY INOCENCIO Administration Haloperidol 20 mg 11/15/20 21:00 11/25/20 20:47 Haloperidol 5 Mg Tablet PO 20 mg BEDTIME INOCENCIO Administration Haloperidol Lactate 10 mg 11/19/20 15:03 Haloperidol Lactate 5 Mg/Ml Vial IM BID PRN oral refusal Hydrochlorothiazide 25 mg 10/12/20 09:00 11/26/20 08:47 Hydrochlorothiazide 25 Mg Tablet PO 25 mg DAILY INOCENCIO Administration Protocol Hydroxyzine HCl 25 mg 10/14/20 22:36 11/10/20 16:18 Hydroxyzine Hcl 25 Mg Tablet PO 25 mg Q4H PRN Administration mild Anxiety Magnesium Hydroxide 30 ml 10/14/20 22:36 Milk Of Magnesia 30 Ml Oral.Susp PO DAILY PRN Constipation Nicotine Polacrilex 4 mg 10/14/20 22:36 11/06/20 04:47 Nicotine Polacrilex 2 Mg Gum BUCCAL 4 mg Q2H PRN Administration Nicotine Cravings Trazodone HCl 50 mg 10/14/20 22:36 10/27/20 00:35 Trazodone Hcl 50 Mg Tablet PO 50 mg BEDTIME PRN Administration Insomnia Trazodone HCl 150 mg 10/30/20 21:00 11/25/20 20:47 Trazodone Hcl 50 Mg Tablet PO 150 mg BEDTIME INOCENCIO Administration Valproic Acid 500 mg 11/16/20 09:00 11/26/20 08:49 Valproic Acid (As Sodium Salt) 250 Mg/5 Ml Solution PO 500 mg DAILY INOCENCIO Administration Valproic Acid 1,500 mg 11/15/20 21:00 11/25/20 20:44 Valproic Acid (As Sodium Salt) 250 Mg/5 Ml Solution PO 1,500 mg BEDTIME INOCENCIO Administration Allergies Allergies Allergy/AdvReac Type Severity Reaction Status Date / Time kiwi [KIWI] Allergy Mild HIVES Verified 10/01/20 14:49 mold [MOLD EXTRACTS*] Allergy Mild HIVES Verified 10/01/20 14:49 Assessment & Plan Assessment & Plan (1) Bipolar disorder with psychotic features: Status: Acute Code(s): F31.9 - Bipolar disorder, unspecified Assessment and Plan: 1. Increase Haldol to 30 mg. Patient is not taking Depakote or only takes it at night 2. Increase depakote 500mg po TID- pt not taking it consistently but at least if she agrees she may take more therapeutic dose. Greater than 50% of the session was spent on counseling and/or coordination of care Reason for contiued inpatient stay Substantial Risk for: inability to function
[2020-11-21] MEDS: traZODone HCL 50 MG TABLET 150 MG PO (20:57)
[2020-11-21] MEDS: HaloperidoL 5 MG TABLET 20 MG PO (20:57)
[2020-11-21] MEDS: clonazePAM 1 MG TABLET 2 MG PO (20:58)
[2020-11-21 21:03] VITALS: BP 132/74; PULSE 94; RESP 16; TEMP 36.5
[2020-11-22 06:35] VITALS: BP 127/72; PULSE 77; RESP 18; TEMP 36.8; O2SAT 96
[2020-11-22 09:19] VITALS: BP 133/75; PULSE 88
[2020-11-22] MEDS: atenoloL 50 MG TABLET PO (09:19)
[2020-11-22] MEDS: HaloperidoL 5 MG TABLET 10 MG PO (09:20)
[2020-11-22] MEDS: hydroCHLOROthiazide 25 MG TABLET PO (09:20)
[2020-11-22] MEDS: Benztropine Mesylate 1 MG TABLET PO ×2 (09:20→20:25)
--- NOTE | 2020-11-22 13:39 | HO.PSYCHPN ---
Subjective Subjective Date of Service: 11/22/20 Reason For Visit: Acute Psychosis Interim History: Pt continues to present with delusions related to being a medium, having special cortes. She also reports solving mysteries and wanting team to contact Joo huber alex who she believes is her soul mate. She continues to present as labile, intrusive with peers, hypersexual behaviors. Review of Systems Review of Systems This was limited because of her ability to answer questions correctly but there was no obvious evidence of any recent trauma convulsion or cold or flu-like illness. She had complained of bilateral leg swelling for which she had couple of ultrasounds done. Yes all other systems are reviewed and are negative Constitutional: Reports as per HPI, Reports no additional constitutional complaints, Denies chills and Denies fever(s) Eyes: Reports as per HPI and Reports no additional eye complaints Reports system reviewed and no additional complaints, except as documented and Reports as per HPI Cardiovascular: Reports as per HPI, Reports no additional cardiovascular complaints, Denies chest pain, Denies Epigastric Pain and Denies dyspnea Respiratory: Reports as per HPI, Reports no additional respiratory complaints, Denies chest congestion, Denies cough and Denies dyspnea Gastrointestinal: Reports as per HPI, Reports no additional gastrointestinal complaints, Denies abdominal pain, Denies change in stool character, Denies constipation and Denies vomiting Musculoskeletal: Reports no additional musculoskeletal complaints and Reports as per HPI Reports system reviewed and no additional complaints, except as documented and Reports as per HPI Psychiatric: Reports no additional psychiatric complaints Mental Status Exam Mental Status Exam Narrative: Appearance: [place] woman, casually groomed, somewhat disheveled today, in NAD Behavior: guarded and suspicious Psychomotor: no agitation or retardation noted Speech: clear, normal rate but hyperverbal, spontaneous TP: tangential TC: suspiciousness about other taking 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 Diagnostics Vital Signs (24Hr): Vital Signs - 24 hr 11/21/20 21:03 11/22/20 06:35 11/22/20 09:19 Temperature 97.7 F 98.2 F Pulse Rate 94 77 88 Respiratory Rate 16 18 Blood Pressure 132/74 127/72 133/75 Pulse Oximetry 96 Body Mass Index 60.1 Labs Results: 10/29/20 12:09 11/12/20 11:46 Imaging Radiology Impressions: ITS Impressions Chest X-Ray 10/12/20 01:44 IMPRESSION: No evidence for acute disease. Head CT 10/12/20 19:11 IMPRESSION: No acute intracranial pathology. Venous Duplex 10/29/20 02:12 IMPRESSION: No DVT demonstrated in the left lower extremity. Foot X-Ray 11/07/20 13:45 IMPRESSION: Arthritis at the first MTP joint and calcaneal spurs. Venous Duplex 11/07/20 14:20 IMPRESSION: No DVT demonstrated in the bilateral lower extremity. Abdomen/Pelvis CT 11/12/20 15:20 IMPRESSION: Hepatosplenomegaly with fatty infiltration of the liver. Medications Medications Current Medications Generic Name Dose Route Start Last Admin Trade Name Freq PRN Reason Stop Dose Admin Acetaminophen 650 mg 10/14/20 22:36 11/06/20 00:28 Acetaminophen 325 Mg Tablet PO 650 mg Q6H PRN Administration Headache/Pain Mild Scale (1-3) Al Hydroxide/Mg Hydroxide 30 ml 10/14/20 22:36 Magnesium Hydrox/Alum Hydrox 30 Ml Oral.Susp PO Q6H PRN Heartburn/Nausea Atenolol 50 mg 10/12/20 09:00 11/22/20 09:19 Atenolol 50 Mg Tablet PO 50 mg DAILY INOCENCIO Administration Protocol Benztropine Mesylate 1 mg 11/07/20 10:16 Benztropine Mesylate 1 Mg Tablet PO BID PRN Extrapyramidal Effects Benztropine Mesylate 1 mg 11/09/20 21:00 11/22/20 09:20 Benztropine Mesylate 1 Mg Tablet PO 1 mg BID INOCENCIO Administration Benztropine Mesylate 1 mg 11/20/20 12:11 Benztropine Mesylate 2 Mg/2 Ml Vial IM BID PRN oral refusal Clonazepam 2 mg 11/09/20 21:00 11/21/20 20:58 Clonazepam 1 Mg Tablet PO 2 mg BEDTIME INOCENCIO Administration Clotrimazole 1 appl 10/29/20 21:00 11/22/20 09:21 Clotrimazole 1 % Cream 15 Gm Tube TOPICAL Not Given BID [facility] Protocol Haloperidol 10 mg 11/10/20 09:00 11/22/20 09:20 Haloperidol 5 Mg Tablet PO 10 mg DAILY INOCENCIO Administration Haloperidol 20 mg 11/15/20 21:00 11/21/20 20:57 Haloperidol 5 Mg Tablet PO 20 mg BEDTIME INOCENCIO Administration Haloperidol Lactate 10 mg 11/19/20 15:03 Haloperidol Lactate 5 Mg/Ml Vial IM BID PRN oral refusal Hydrochlorothiazide 25 mg 10/12/20 09:00 11/22/20 09:20 Hydrochlorothiazide 25 Mg Tablet PO 25 mg DAILY INOCENCIO Administration Protocol Hydroxyzine HCl 25 mg 10/14/20 22:36 11/10/20 16:18 Hydroxyzine Hcl 25 Mg Tablet PO 25 mg Q4H PRN Administration mild Anxiety Magnesium Hydroxide 30 ml 10/14/20 22:36 Milk Of Magnesia 30 Ml Oral.Susp PO DAILY PRN Constipation Nicotine Polacrilex 4 mg 10/14/20 22:36 11/06/20 04:47 Nicotine Polacrilex 2 Mg Gum BUCCAL 4 mg Q2H PRN Administration Nicotine Cravings Trazodone HCl 50 mg 10/14/20 22:36 10/27/20 00:35 Trazodone Hcl 50 Mg Tablet PO 50 mg BEDTIME PRN Administration Insomnia Trazodone HCl 150 mg 10/30/20 21:00 11/21/20 20:57 Trazodone Hcl 50 Mg Tablet PO 150 mg BEDTIME INOCENCIO Administration Valproic Acid 500 mg 11/16/20 09:00 11/22/20 09:20 Valproic Acid (As Sodium Salt) 250 Mg/5 Ml Solution PO 500 mg DAILY INOCENCIO Administration Valproic Acid 1,500 mg 11/15/20 21:00 11/21/20 20:58 Valproic Acid (As Sodium Salt) 250 Mg/5 Ml Solution PO 1,500 mg BEDTIME INOCENCIO Administration Allergies Allergies Allergy/AdvReac Type Severity Reaction Status Date / Time kiwi [KIWI] Allergy Mild HIVES Verified 10/01/20 14:49 mold [MOLD EXTRACTS*] Allergy Mild HIVES Verified 10/01/20 14:49 Assessment & Plan Assessment & Plan (1) Bipolar disorder with psychotic features: Status: Acute Code(s): F31.9 - Bipolar disorder, unspecified Assessment and Plan: 1. Increase Haldol to 30 mg. Patient is not taking Depakote or only takes it at night 2. Increase depakote 500mg po TID- pt not taking it consistently but at least if she agrees she may take more therapeutic dose. Greater than 50% of the session was spent on counseling and/or coordination of care Reason for contiued inpatient stay Substantial Risk for: inability to function
[2020-11-22 17:18] VITALS: BP 156/70; PULSE 76; TEMP 37
[2020-11-22] MEDS: HaloperidoL 5 MG TABLET 20 MG PO (20:24)
[2020-11-22] MEDS: clonazePAM 1 MG TABLET 2 MG PO (20:25)
[2020-11-22] MEDS: traZODone HCL 50 MG TABLET 150 MG PO (20:25)
[2020-11-23 08:42] VITALS: BP 135/62; PULSE 77
[2020-11-23] MEDS: HaloperidoL 5 MG TABLET 10 MG PO (08:42)
[2020-11-23] MEDS: atenoloL 50 MG TABLET PO (08:42)
[2020-11-23] MEDS: hydroCHLOROthiazide 25 MG TABLET PO (08:42)
[2020-11-23] MEDS: Benztropine Mesylate 1 MG TABLET PO ×2 (08:43→20:45)
--- NOTE | 2020-11-23 11:03 | HO.PSYCHPN ---
Subjective Subjective Date of Service: 11/23/20 Reason For Visit: Acute Psychosis Interim History: Pt continues to present with delusions related to being a medium, having special cortes. She also reports solving mysteries and wanting team to contact Joo huber alex who she believes is her soul mate. She continues to present as labile, intrusive with peers, hypersexual behaviors. She is also somatically preoccupied and asks that she is brought to her PCP in a wheelchair. Review of Systems Review of Systems This was limited because of her ability to answer questions correctly but there was no obvious evidence of any recent trauma convulsion or cold or flu-like illness. She had complained of bilateral leg swelling for which she had couple of ultrasounds done. Yes all other systems are reviewed and are negative Constitutional: Reports as per HPI, Reports no additional constitutional complaints, Denies chills and Denies fever(s) Eyes: Reports as per HPI and Reports no additional eye complaints Reports system reviewed and no additional complaints, except as documented and Reports as per HPI Cardiovascular: Reports as per HPI, Reports no additional cardiovascular complaints, Denies chest pain, Denies Epigastric Pain and Denies dyspnea Respiratory: Reports as per HPI, Reports no additional respiratory complaints, Denies chest congestion, Denies cough and Denies dyspnea Gastrointestinal: Reports as per HPI, Reports no additional gastrointestinal complaints, Denies abdominal pain, Denies change in stool character, Denies constipation and Denies vomiting Musculoskeletal: Reports no additional musculoskeletal complaints and Reports as per HPI Reports system reviewed and no additional complaints, except as documented and Reports as per HPI Psychiatric: Reports no additional psychiatric complaints Mental Status Exam Mental Status Exam Narrative: Appearance: [place] woman, casually groomed, somewhat disheveled today, in NAD Behavior: guarded and suspicious Psychomotor: no agitation or retardation noted Speech: clear, normal rate but hyperverbal, spontaneous TP: tangential TC: suspiciousness about other taking 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 Diagnostics Vital Signs (24Hr): Vital Signs - 24 hr 11/22/20 17:18 11/23/20 08:42 Temperature 98.6 F Pulse Rate 76 77 Blood Pressure 156/70 H 135/62 Body Mass Index 60.1 Labs Results: 10/29/20 12:09 11/12/20 11:46 Imaging Radiology Impressions: ITS Impressions Chest X-Ray 10/12/20 01:44 IMPRESSION: No evidence for acute disease. Head CT 10/12/20 19:11 IMPRESSION: No acute intracranial pathology. Venous Duplex 10/29/20 02:12 IMPRESSION: No DVT demonstrated in the left lower extremity. Foot X-Ray 11/07/20 13:45 IMPRESSION: Arthritis at the first MTP joint and calcaneal spurs. Venous Duplex 11/07/20 14:20 IMPRESSION: No DVT demonstrated in the bilateral lower extremity. Abdomen/Pelvis CT 11/12/20 15:20 IMPRESSION: Hepatosplenomegaly with fatty infiltration of the liver. Medications Medications Current Medications Generic Name Dose Route Start Last Admin Trade Name Freq PRN Reason Stop Dose Admin Acetaminophen 650 mg 10/14/20 22:36 11/06/20 00:28 Acetaminophen 325 Mg Tablet PO 650 mg Q6H PRN Administration Headache/Pain Mild Scale (1-3) Al Hydroxide/Mg Hydroxide 30 ml 10/14/20 22:36 Magnesium Hydrox/Alum Hydrox 30 Ml Oral.Susp PO Q6H PRN Heartburn/Nausea Atenolol 50 mg 10/12/20 09:00 11/23/20 08:42 Atenolol 50 Mg Tablet PO 50 mg DAILY INOCENCIO Administration Protocol Benztropine Mesylate 1 mg 11/07/20 10:16 Benztropine Mesylate 1 Mg Tablet PO BID PRN Extrapyramidal Effects Benztropine Mesylate 1 mg 11/09/20 21:00 11/23/20 08:43 Benztropine Mesylate 1 Mg Tablet PO 1 mg BID INOCENCIO Administration Benztropine Mesylate 1 mg 11/20/20 12:11 Benztropine Mesylate 2 Mg/2 Ml Vial IM BID PRN oral refusal Clonazepam 2 mg 11/09/20 21:00 11/22/20 20:25 Clonazepam 1 Mg Tablet PO 2 mg BEDTIME INOCENCIO Administration Clotrimazole 1 appl 10/29/20 21:00 11/23/20 08:49 Clotrimazole 1 % Cream 15 Gm Tube TOPICAL Not Given BID [facility] Protocol Haloperidol 10 mg 11/10/20 09:00 11/23/20 08:42 Haloperidol 5 Mg Tablet PO 10 mg DAILY INOCENCIO Administration Haloperidol 20 mg 11/15/20 21:00 11/22/20 20:24 Haloperidol 5 Mg Tablet PO 20 mg BEDTIME INOCENCIO Administration Haloperidol Lactate 10 mg 11/19/20 15:03 Haloperidol Lactate 5 Mg/Ml Vial IM BID PRN oral refusal Hydrochlorothiazide 25 mg 10/12/20 09:00 11/23/20 08:42 Hydrochlorothiazide 25 Mg Tablet PO 25 mg DAILY INOCENCIO Administration Protocol Hydroxyzine HCl 25 mg 10/14/20 22:36 11/10/20 16:18 Hydroxyzine Hcl 25 Mg Tablet PO 25 mg Q4H PRN Administration mild Anxiety Magnesium Hydroxide 30 ml 10/14/20 22:36 Milk Of Magnesia 30 Ml Oral.Susp PO DAILY PRN Constipation Nicotine Polacrilex 4 mg 10/14/20 22:36 11/06/20 04:47 Nicotine Polacrilex 2 Mg Gum BUCCAL 4 mg Q2H PRN Administration Nicotine Cravings Trazodone HCl 50 mg 10/14/20 22:36 10/27/20 00:35 Trazodone Hcl 50 Mg Tablet PO 50 mg BEDTIME PRN Administration Insomnia Trazodone HCl 150 mg 10/30/20 21:00 11/22/20 20:25 Trazodone Hcl 50 Mg Tablet PO 150 mg BEDTIME INOCENCIO Administration Valproic Acid 500 mg 11/16/20 09:00 11/23/20 08:42 Valproic Acid (As Sodium Salt) 250 Mg/5 Ml Solution PO 500 mg DAILY INOCENCIO Administration Valproic Acid 1,500 mg 11/15/20 21:00 11/22/20 20:24 Valproic Acid (As Sodium Salt) 250 Mg/5 Ml Solution PO 1,500 mg BEDTIME INOCENCIO Administration Allergies Allergies Allergy/AdvReac Type Severity Reaction Status Date / Time kiwi [KIWI] Allergy Mild HIVES Verified 10/01/20 14:49 mold [MOLD EXTRACTS*] Allergy Mild HIVES Verified 10/01/20 14:49 Assessment & Plan Assessment & Plan (1) Bipolar disorder with psychotic features: Status: Acute Code(s): F31.9 - Bipolar disorder, unspecified Assessment and Plan: 1. Increase Haldol to 30 mg. Patient is not taking Depakote or only takes it at night 2. Increase depakote 500mg po TID- pt not taking it consistently but at least if she agrees she may take more therapeutic dose. Greater than 50% of the session was spent on counseling and/or coordination of care Reason for contiued inpatient stay Substantial Risk for: inability to function
[2020-11-23 11:06] VITALS: RESP 16; TEMP 36.6; O2SAT 97
[2020-11-23 18:00] VITALS: BP 132/72; PULSE 73; TEMP 36.4
[2020-11-23] MEDS: clonazePAM 1 MG TABLET 2 MG PO (20:44)
[2020-11-23] MEDS: traZODone HCL 50 MG TABLET 150 MG PO (20:45)
[2020-11-23] MEDS: HaloperidoL 5 MG TABLET 20 MG PO (20:45)
[2020-11-24 06:35] VITALS: BP 135/70; PULSE 73; RESP 16; TEMP 36.1; O2SAT 97
[2020-11-24 08:49] VITALS: BP 136/93; PULSE 85
[2020-11-24] MEDS: atenoloL 50 MG TABLET PO (08:49)
[2020-11-24] MEDS: hydroCHLOROthiazide 25 MG TABLET PO (08:49)
[2020-11-24] MEDS: HaloperidoL 5 MG TABLET 10 MG PO (08:50)
[2020-11-24] MEDS: Benztropine Mesylate 1 MG TABLET PO ×2 (08:50→20:25)
--- NOTE | 2020-11-24 17:14 | P.PNPSI_ITS ---
Subjective Subjective Date of Service: 11/24/20 Reason For Visit: Acute Psychosis Interim History: Pt continues to present with delusions related to being a medium, having special cortes. She also reports solving mysteries and wanting team to contact Joo huber alex who she believes is her soul mate. She continues to present as labile, less intrusive with peers, hypersexual behaviors. She is also somatically preoccupied and asks that she is brought to her PCP in a wheelchair. Review of Systems Review of Systems This was limited because of her ability to answer questions correctly but there was no obvious evidence of any recent trauma convulsion or cold or flu- like illness. She had complained of bilateral leg swelling for which she had couple of ultrasounds done. Yes all other systems are reviewed and are negative Constitutional: Reports as per HPI, Reports no additional constitutional com plaints, Denies chills and Denies fever(s) Eyes: Reports as per HPI and Reports no additional eye complaints Reports system reviewed and no additional complaints, except as documented and Reports as per HPI Cardiovascular: Reports as per HPI, Reports no additional cardiovascular complaints, Denies chest pain, Denies Epigastric Pain and Denies dyspnea Respiratory: Reports as per HPI, Reports no additional respiratory complaints, Denies chest congestion, Denies cough and Denies dyspnea Gastrointestinal: Reports as per HPI, Reports no additional gastrointestinal complaints, Denies abdominal pain, Denies change in stool character, Denies constipation and Denies vomiting Musculoskeletal: Reports no additional musculoskeletal complaints and Reports as per HPI Reports system reviewed and no additional complaints, except as documented and Reports as per HPI Psychiatric: Reports no additional psychiatric complaints Mental Status Exam Mental Status Exam Narrative: Appearance: [place] woman, casually groomed, somewhat disheveled today, in NAD Behavior: guarded and suspicious Psychomotor: no agitation or retardation noted Speech: clear, normal rate but hyperverbal, spontaneous TP: tangential TC: suspiciousness about other taking 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 Patient Appearance: Unkempt Patient Orientation: Person and Place Level of Consciousness: Awake Patient Behavior: Talkative, Hypersexual and Restless Mood Description: Suspicious, Anxious and Labile Affect Description: Suspicious, Labile, Angry and Apprehensive Ability to Follow Directions: Fair Speech Pattern: Perseverating and Pressured Memory Description: Episodic Impaired Diagnostics Vital Signs (24Hr): Vital Signs - 24 hr 11/23/20 18:00 11/24/20 06:35 11/24/20 08:49 Temperature 97.6 F 97 F Pulse Rate 73 73 85 Respiratory Rate 16 Blood Pressure 132/72 135/70 136/93 H Pulse Oximetry 97 Body Mass Index 60.1 Labs Results: 10/29/20 12:09 11/12/20 11:46 Imaging Radiology Impressions: ITS Impressions Chest X-Ray 10/12/20 01:44 IMPRESSION: No evidence for acute disease. Head CT 10/12/20 19:11 IMPRESSION: No acute intracranial pathology. Venous Duplex 10/29/20 02:12 IMPRESSION: No DVT demonstrated in the left lower extremity. Foot X-Ray 11/07/20 13:45 IMPRESSION: Arthritis at the first MTP joint and calcaneal spurs. Venous Duplex 11/07/20 14:20 IMPRESSION: No DVT demonstrated in the bilateral lower extremity. Abdomen/Pelvis CT 11/12/20 15:20 IMPRESSION: Hepatosplenomegaly with fatty infiltration of the liver. Medications Medications Current Medications Generic Name Dose Route Start Last Admin Trade Name Freq PRN Reason Stop Dose Admin Acetaminophen 650 mg 10/14/20 22:36 11/06/20 00:28 Acetaminophen 325 Mg Tablet PO 650 mg Q6H PRN Administration Headache/Pain Mild Scale (1-3) Al Hydroxide/Mg Hydroxide 30 ml 10/14/20 22:36 Magnesium Hydrox/Alum Hydrox 30 Ml Oral.Susp PO Q6H PRN Heartburn/Nausea Atenolol 50 mg 10/12/20 09:00 11/24/20 08:49 Atenolol 50 Mg Tablet PO 50 mg DAILY INOCENCIO Administration Protocol Benztropine Mesylate 1 mg 11/07/20 10:16 Benztropine Mesylate 1 Mg Tablet PO BID PRN Extrapyramidal Effects Benztropine Mesylate 1 mg 11/09/20 21:00 11/24/20 08:50 Benztropine Mesylate 1 Mg Tablet PO 1 mg BID INOCENCIO Administration Benztropine Mesylate 1 mg 11/20/20 12:11 Benztropine Mesylate 2 Mg/2 Ml Vial IM BID PRN oral refusal Clonazepam 2 mg 11/09/20 21:00 11/23/20 20:44 Clonazepam 1 Mg Tablet PO 2 mg BEDTIME INOCENCIO Administration Clotrimazole 1 appl 10/29/20 21:00 11/24/20 08:53 Clotrimazole 1 % Cream 15 Gm Tube TOPICAL Not Given BID INOCENCIO Protocol Haloperidol 10 mg 11/10/20 09:00 11/24/20 08:50 Haloperidol 5 Mg Tablet PO 10 mg DAILY INOCENCIO Administration Haloperidol 20 mg 11/15/20 21:00 11/23/20 20:45 Haloperidol 5 Mg Tablet PO 20 mg BEDTIME INOCENCIO Administration Haloperidol Lactate 10 mg 11/19/20 15:03 Haloperidol Lactate 5 Mg/Ml Vial IM BID PRN oral refusal Hydrochlorothiazide 25 mg 10/12/20 09:00 11/24/20 08:49 Hydrochlorothiazide 25 Mg Tablet PO 25 mg DAILY INOCENCIO Administration Protocol Hydroxyzine HCl 25 mg 10/14/20 22:36 11/10/20 16:18 Hydroxyzine Hcl 25 Mg Tablet PO 25 mg Q4H PRN Administration mild Anxiety Magnesium Hydroxide 30 ml 10/14/20 22:36 Milk Of Magnesia 30 Ml Oral.Susp PO DAILY PRN Constipation Nicotine Polacrilex 4 mg 10/14/20 22:36 11/06/20 04:47 Nicotine Polacrilex 2 Mg Gum BUCCAL 4 mg Q2H PRN Administration Nicotine Cravings Trazodone HCl 50 mg 10/14/20 22:36 10/27/20 00:35 Trazodone Hcl 50 Mg Tablet PO 50 mg BEDTIME PRN Administration Insomnia Trazodone HCl 150 mg 10/30/20 21:00 11/23/20 20:45 Trazodone Hcl 50 Mg Tablet PO 150 mg BEDTIME INOCENCIO Administration Valproic Acid 500 mg 11/16/20 09:00 11/24/20 08:50 Valproic Acid (As Sodium Salt) 250 Mg/5 Ml Solution PO 500 mg DAILY INOCENCIO Administration Valproic Acid 1,500 mg 11/15/20 21:00 11/23/20 20:44 Valproic Acid (As Sodium Salt) 250 Mg/5 Ml Solution PO 1,500 mg BEDTIME INOCENCIO Administration Allergies Allergies Allergy/AdvReac Type Severity Reaction Status Date / Time kiwi [KIWI] Allergy Mild HIVES Verified 10/01/20 14:49 mold [MOLD EXTRACTS*] Allergy Mild HIVES Verified 10/01/20 14:49 Assessment & Plan Assessment & Plan (1) Bipolar disorder with psychotic features: Status: Acute Code(s): F31.9 - Bipolar disorder, unspecified Assessment and Plan: 1. Increase Haldol to 30 mg. Patient is not taking Depakote or only takes it at night 2. Increase depakote 500mg po TID- pt not taking it consistently but at least if she agrees she may take more therapeutic dose. Greater than 50% of the session was spent on counseling and/or coordination of care Reason for contiued inpatient stay Substantial Risk for: inability to function
[2020-11-24 17:47] LABS: Lyme Abs Screen <0.90 index
[2020-11-24 18:00] VITALS: BP 127/75; PULSE 74; TEMP 36.6
[2020-11-24] MEDS: clonazePAM 1 MG TABLET 2 MG PO (20:25)
[2020-11-24] MEDS: HaloperidoL 5 MG TABLET 20 MG PO (20:25)
[2020-11-24] MEDS: traZODone HCL 50 MG TABLET 150 MG PO (20:25)
[2020-11-25 06:35] VITALS: BP 132/76; PULSE 77; RESP 18; TEMP 36.7; O2SAT 96
[2020-11-25] MEDS: Clotrimazole 1 % Cream 15 GM TUBE 1 APPL TOPICAL ×2 (08:27→21:00)
[2020-11-25 08:28] VITALS: BP 136/63; PULSE 83
[2020-11-25] MEDS: hydroCHLOROthiazide 25 MG TABLET PO (08:28)
[2020-11-25] MEDS: atenoloL 50 MG TABLET PO (08:28)
[2020-11-25] MEDS: Benztropine Mesylate 1 MG TABLET PO ×2 (08:29→20:46)
[2020-11-25] MEDS: HaloperidoL 5 MG TABLET 10 MG PO (08:29)
[2020-11-25 18:00] VITALS: BP 137/77; PULSE 83; TEMP 36.3
[2020-11-25] MEDS: clonazePAM 1 MG TABLET 2 MG PO (20:46)
[2020-11-25] MEDS: HaloperidoL 5 MG TABLET 20 MG PO (20:47)
[2020-11-25] MEDS: traZODone HCL 50 MG TABLET 150 MG PO (20:47)
[2020-11-26] MEDS: hydroCHLOROthiazide 25 MG TABLET PO (08:47)
[2020-11-26] MEDS: Benztropine Mesylate 1 MG TABLET PO ×2 (08:47→20:14)
[2020-11-26 08:48] VITALS: BP 144/88; PULSE 77
[2020-11-26] MEDS: HaloperidoL 5 MG TABLET 10 MG PO (08:48)
[2020-11-26] MEDS: atenoloL 50 MG TABLET PO (08:48)
[2020-11-26] MEDS: Clotrimazole 1 % Cream 15 GM TUBE 1 APPL TOPICAL ×2 (08:57→20:55)
--- NOTE | 2020-11-26 16:40 | HO.PSYCHPN ---
Subjective Subjective Date of Service: 11/26/20 Reason For Visit: Acute Psychosis Interim History: Pt somewhat irritable but conversations are more logical and based on reality. She is not insisting on being a medium although there is still some residual delusions related to being a medium and erotomatic delusions. She is also not incisting that her sister is trying to hurt herself, although does think it happened. She is taking medications as prescribed. She reports that she will not drive when she returns home, that she will continues medications. She denies SI/HI. Review of Systems Review of Systems This was limited because of her ability to answer questions correctly but there was no obvious evidence of any recent trauma convulsion or cold or flu-like illness. She had complained of bilateral leg swelling for which she had couple of ultrasounds done. Yes all other systems are reviewed and are negative Constitutional: Reports as per HPI, Reports no additional constitutional complaints, Denies chills and Denies fever(s) Eyes: Reports as per HPI and Reports no additional eye complaints Reports system reviewed and no additional complaints, except as documented and Reports as per HPI Cardiovascular: Reports as per HPI, Reports no additional cardiovascular complaints, Denies chest pain, Denies Epigastric Pain and Denies dyspnea Respiratory: Reports as per HPI, Reports no additional respiratory complaints, Denies chest congestion, Denies cough and Denies dyspnea Gastrointestinal: Reports as per HPI, Reports no additional gastrointestinal complaints, Denies abdominal pain, Denies change in stool character, Denies constipation and Denies vomiting Musculoskeletal: Reports no additional musculoskeletal complaints and Reports as per HPI Reports system reviewed and no additional complaints, except as documented and Reports as per HPI Psychiatric: Reports no additional psychiatric complaints Mental Status Exam Mental Status Exam Narrative: Appearance: [place] woman, casually groomed, somewhat disheveled today, in NAD Behavior: less guarded Psychomotor: no agitation or retardation noted Speech: clear, normal rate, less hyperverbal, spontaneous TP: more organized TC: some paranoid/taoist/erotomanic delusions, but conversation more appropriate in terms of asking for treatment here, plan for discharge Mood: excelent Affect: blunted AH/VH: denies Delusions: less somatic preoccupations, less ideas of being medium Insight/judgment: improving Memory/cog: alert, oriented to place, year, not situation, improving attention. Diagnostics Vital Signs (24Hr): Vital Signs - 24 hr 11/25/20 18:00 11/26/20 08:48 Temperature 97.4 F Pulse Rate 83 77 Blood Pressure 137/77 144/88 H Body Mass Index 60.1 Labs Results: 10/29/20 12:09 11/12/20 11:46 Labs: Laboratory Results - last 48 hr 11/21/20 09:02 Lyme Screen IgG & IgM <0.90 Lyme Progressive Test TNP Imaging Radiology Impressions: ITS Impressions Chest X-Ray 10/12/20 01:44 IMPRESSION: No evidence for acute disease. Head CT 10/12/20 19:11 IMPRESSION: No acute intracranial pathology. Venous Duplex 10/29/20 02:12 IMPRESSION: No DVT demonstrated in the left lower extremity. Foot X-Ray 11/07/20 13:45 IMPRESSION: Arthritis at the first MTP joint and calcaneal spurs. Venous Duplex 11/07/20 14:20 IMPRESSION: No DVT demonstrated in the bilateral lower extremity. Abdomen/Pelvis CT 11/12/20 15:20 IMPRESSION: Hepatosplenomegaly with fatty infiltration of the liver. Medications Medications Current Medications Generic Name Dose Route Start Last Admin Trade Name Freq PRN Reason Stop Dose Admin Acetaminophen 650 mg 10/14/20 22:36 11/06/20 00:28 Acetaminophen 325 Mg Tablet PO 650 mg Q6H PRN Administration Headache/Pain Mild Scale (1-3) Al Hydroxide/Mg Hydroxide 30 ml 10/14/20 22:36 Magnesium Hydrox/Alum Hydrox 30 Ml Oral.Susp PO Q6H PRN Heartburn/Nausea Atenolol 50 mg 10/12/20 09:00 11/26/20 08:48 Atenolol 50 Mg Tablet PO 50 mg DAILY INOCENCIO Administration Protocol Benztropine Mesylate 1 mg 11/07/20 10:16 Benztropine Mesylate 1 Mg Tablet PO BID PRN Extrapyramidal Effects Benztropine Mesylate 1 mg 11/09/20 21:00 11/26/20 08:47 Benztropine Mesylate 1 Mg Tablet PO 1 mg BID INOCENCIO Administration Benztropine Mesylate 1 mg 11/20/20 12:11 Benztropine Mesylate 2 Mg/2 Ml Vial IM BID PRN oral refusal Clonazepam 1 mg 11/26/20 21:00 Clonazepam 1 Mg Tablet PO BEDTIME [facility] Clotrimazole 1 appl 10/29/20 21:00 11/26/20 08:57 Clotrimazole 1 % Cream 15 Gm Tube TOPICAL 1 appl BID INOCENCIO Administration Protocol Haloperidol 10 mg 11/10/20 09:00 11/26/20 08:48 Haloperidol 5 Mg Tablet PO 10 mg DAILY INOCENCIO Administration Haloperidol 15 mg 11/26/20 21:00 Haloperidol 5 Mg Tablet PO BEDTIME INOCENCIO Haloperidol Lactate 10 mg 11/19/20 15:03 Haloperidol Lactate 5 Mg/Ml Vial IM BID PRN oral refusal Hydrochlorothiazide 25 mg 10/12/20 09:00 11/26/20 08:47 Hydrochlorothiazide 25 Mg Tablet PO 25 mg DAILY INOCENCIO Administration Protocol Hydroxyzine HCl 25 mg 10/14/20 22:36 11/10/20 16:18 Hydroxyzine Hcl 25 Mg Tablet PO 25 mg Q4H PRN Administration mild Anxiety Magnesium Hydroxide 30 ml 10/14/20 22:36 Milk Of Magnesia 30 Ml Oral.Susp PO DAILY PRN Constipation Nicotine Polacrilex 4 mg 10/14/20 22:36 11/06/20 04:47 Nicotine Polacrilex 2 Mg Gum BUCCAL 4 mg Q2H PRN Administration Nicotine Cravings Trazodone HCl 50 mg 10/14/20 22:36 10/27/20 00:35 Trazodone Hcl 50 Mg Tablet PO 50 mg BEDTIME PRN Administration Insomnia Trazodone HCl 150 mg 10/30/20 21:00 11/25/20 20:47 Trazodone Hcl 50 Mg Tablet PO 150 mg BEDTIME INOCENCIO Administration Valproic Acid 500 mg 11/16/20 09:00 11/26/20 08:49 Valproic Acid (As Sodium Salt) 250 Mg/5 Ml Solution PO 500 mg DAILY INOCENCIO Administration Valproic Acid 1,500 mg 11/15/20 21:00 11/25/20 20:44 Valproic Acid (As Sodium Salt) 250 Mg/5 Ml Solution PO 1,500 mg BEDTIME INOCENCIO Administration Allergies Allergies Allergy/AdvReac Type Severity Reaction Status Date / Time kiwi [KIWI] Allergy Mild HIVES Verified 10/01/20 14:49 mold [MOLD EXTRACTS*] Allergy Mild HIVES Verified 10/01/20 14:49 Assessment & Plan Assessment & Plan (1) Bipolar disorder with psychotic features: Status: Acute Code(s): F31.9 - Bipolar disorder, unspecified Assessment and Plan: 1. Decrease haldol to 10mg po daily and 15mg po daily- due to sedation 2. Continue Depakote 500mg po daily and 1500mg po qhs. Greater than 50% of the session was spent on counseling and/or coordination of care Reason for contiued inpatient stay Substantial Risk for: inability to function
[2020-11-26] MEDS: traZODone HCL 50 MG TABLET 150 MG PO (20:12)
[2020-11-26] MEDS: HaloperidoL 5 MG TABLET 15 MG PO (20:13)
[2020-11-26] MEDS: clonazePAM 1 MG TABLET PO (20:14)
[2020-11-26 20:30] VITALS: BP 132/78; PULSE 86; TEMP 36.9
[2020-11-27 06:30] VITALS: BP 145/87; PULSE 87; RESP 18; TEMP 36.4; O2SAT 96
[2020-11-27] MEDS: Benztropine Mesylate 1 MG TABLET PO ×2 (09:02→20:04)
[2020-11-27] MEDS: hydroCHLOROthiazide 25 MG TABLET PO (09:02)
[2020-11-27] MEDS: HaloperidoL 5 MG TABLET 10 MG PO (09:02)
[2020-11-27 09:03] VITALS: BP 130/58; PULSE 72
[2020-11-27] MEDS: Clotrimazole 1 % Cream 15 GM TUBE 1 APPL TOPICAL ×2 (09:03→20:03)
[2020-11-27] MEDS: atenoloL 50 MG TABLET PO (09:03)
[2020-11-27 10:05] LABS: Valproate 96.2 mcg/mL (50.0-100.0)
--- NOTE | 2020-11-27 14:18 | HO.PSYCHPN ---
Subjective Subjective Date of Service: 11/27/20 Reason For Visit: Acute Psychosis Interim History: Pt increasingly more coherent. She reports sleep is fine. She does report some sedation during the day. We discussed that haldol and clonazepam were lowered. She reports that she continues with plan to take medications once she returns home. She agrees that she will not drive. 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 She does continue to have residual delusions related to being a medium and erotomanic one related to the alex but able to have more coherent conversation with elements of reality. She denies SI/HI. She is not as intrusive with peers. Much less hypersexual behaviors. Review of Systems Review of Systems This was limited because of her ability to answer questions correctly but there was no obvious evidence of any recent trauma convulsion or cold or flu-like illness. She had complained of bilateral leg swelling for which she had couple of ultrasounds done. Yes all other systems are reviewed and are negative Constitutional: Reports as per HPI, Reports no additional constitutional complaints, Denies chills and Denies fever(s) Eyes: Reports as per HPI and Reports no additional eye complaints Reports system reviewed and no additional complaints, except as documented and Reports as per HPI Cardiovascular: Reports as per HPI, Reports no additional cardiovascular complaints, Denies chest pain, Denies Epigastric Pain and Denies dyspnea Respiratory: Reports as per HPI, Reports no additional respiratory complaints, Denies chest congestion, Denies cough and Denies dyspnea Gastrointestinal: Reports as per HPI, Reports no additional gastrointestinal complaints, Denies abdominal pain, Denies change in stool character, Denies constipation and Denies vomiting Musculoskeletal: Reports no additional musculoskeletal complaints and Reports as per HPI Reports system reviewed and no additional complaints, except as documented and Reports as per HPI Psychiatric: Reports no additional psychiatric complaints Mental Status Exam Mental Status Exam Narrative: Appearance: [place] woman, casually groomed, somewhat disheveled today, in NAD Behavior: less guarded Psychomotor: no agitation or retardation noted Speech: clear, normal rate, less hyperverbal, spontaneous TP: more organized TC: some paranoid/anabaptism/erotomanic delusions, but conversation more appropriate in terms of asking for treatment here, plan for discharge Mood: excelent Affect: blunted AH/VH: denies Delusions: less somatic preoccupations, less ideas of being medium Insight/judgment: improving Memory/cog: alert, oriented to place, year, not situation, improving attention. Diagnostics Vital Signs (24Hr): Vital Signs - 24 hr 11/26/20 20:30 11/27/20 06:30 11/27/20 09:03 Temperature 98.4 F 97.6 F Pulse Rate 86 87 72 Respiratory Rate 18 Blood Pressure 132/78 145/87 H 130/58 L Pulse Oximetry 96 Body Mass Index 60.1 Labs Results: 10/29/20 12:09 11/12/20 11:46 Labs: Laboratory Results - last 48 hr 11/27/20 09:17 Valproic Acid 96.2 Imaging Radiology Impressions: ITS Impressions Chest X-Ray 10/12/20 01:44 IMPRESSION: No evidence for acute disease. Head CT 10/12/20 19:11 IMPRESSION: No acute intracranial pathology. Venous Duplex 10/29/20 02:12 IMPRESSION: No DVT demonstrated in the left lower extremity. Foot X-Ray 11/07/20 13:45 IMPRESSION: Arthritis at the first MTP joint and calcaneal spurs. Venous Duplex 11/07/20 14:20 IMPRESSION: No DVT demonstrated in the bilateral lower extremity. Abdomen/Pelvis CT 11/12/20 15:20 IMPRESSION: Hepatosplenomegaly with fatty infiltration of the liver. Medications Medications Current Medications Generic Name Dose Route Start Last Admin Trade Name Freq PRN Reason Stop Dose Admin Acetaminophen 650 mg 10/14/20 22:36 11/06/20 00:28 Acetaminophen 325 Mg Tablet PO 650 mg Q6H PRN Administration Headache/Pain Mild Scale (1-3) Al Hydroxide/Mg Hydroxide 30 ml 10/14/20 22:36 Magnesium Hydrox/Alum Hydrox 30 Ml Oral.Susp PO Q6H PRN Heartburn/Nausea Atenolol 50 mg 10/12/20 09:00 11/27/20 09:03 Atenolol 50 Mg Tablet PO 50 mg DAILY INOCENCIO Administration Protocol Benztropine Mesylate 1 mg 11/07/20 10:16 Benztropine Mesylate 1 Mg Tablet PO BID PRN Extrapyramidal Effects Benztropine Mesylate 1 mg 11/09/20 21:00 11/27/20 09:02 Benztropine Mesylate 1 Mg Tablet PO 1 mg BID INOCENCIO Administration Benztropine Mesylate 1 mg 11/20/20 12:11 Benztropine Mesylate 2 Mg/2 Ml Vial IM BID PRN oral refusal Clonazepam 1 mg 11/26/20 21:00 11/26/20 20:14 Clonazepam 1 Mg Tablet PO 1 mg BEDTIME INOCENCIO Administration Clotrimazole 1 appl 10/29/20 21:00 11/27/20 09:03 Clotrimazole 1 % Cream 15 Gm Tube TOPICAL 1 appl BID INOCENCIO Administration Protocol Haloperidol 10 mg 11/10/20 09:00 11/27/20 09:02 Haloperidol 5 Mg Tablet PO 10 mg DAILY INOCENCIO Administration Haloperidol 15 mg 11/26/20 21:00 11/26/20 20:13 Haloperidol 5 Mg Tablet PO 15 mg BEDTIME INOCENCIO Administration Haloperidol Lactate 10 mg 11/19/20 15:03 Haloperidol Lactate 5 Mg/Ml Vial IM BID PRN oral refusal Hydrochlorothiazide 25 mg 10/12/20 09:00 11/27/20 09:02 Hydrochlorothiazide 25 Mg Tablet PO 25 mg DAILY INOCENCIO Administration Protocol Hydroxyzine HCl 25 mg 10/14/20 22:36 11/10/20 16:18 Hydroxyzine Hcl 25 Mg Tablet PO 25 mg Q4H PRN Administration mild Anxiety Magnesium Hydroxide 30 ml 10/14/20 22:36 Milk Of Magnesia 30 Ml Oral.Susp PO DAILY PRN Constipation Nicotine Polacrilex 4 mg 10/14/20 22:36 11/06/20 04:47 Nicotine Polacrilex 2 Mg Gum BUCCAL 4 mg Q2H PRN Administration Nicotine Cravings Trazodone HCl 50 mg 10/14/20 22:36 10/27/20 00:35 Trazodone Hcl 50 Mg Tablet PO 50 mg BEDTIME PRN Administration Insomnia Trazodone HCl 150 mg 10/30/20 21:00 11/26/20 20:12 Trazodone Hcl 50 Mg Tablet PO 150 mg BEDTIME INOCENCIO Administration Valproic Acid 500 mg 11/16/20 09:00 11/27/20 09:02 Valproic Acid (As Sodium Salt) 250 Mg/5 Ml Solution PO 500 mg DAILY INOCENCIO Administration Valproic Acid 1,500 mg 11/15/20 21:00 11/26/20 20:15 Valproic Acid (As Sodium Salt) 250 Mg/5 Ml Solution PO 1,500 mg BEDTIME INOCENCIO Administration Allergies Allergies Allergy/AdvReac Type Severity Reaction Status Date / Time kiwi [KIWI] Allergy Mild HIVES Verified 10/01/20 14:49 mold [MOLD EXTRACTS*] Allergy Mild HIVES Verified 10/01/20 14:49 Assessment & Plan Assessment & Plan (1) Bipolar disorder with psychotic features: Status: Acute Code(s): F31.9 - Bipolar disorder, unspecified Assessment and Plan: 1. continue haldol to 10mg po daily and 15mg po daily- due to sedation 2. Continue Depakote 500mg po daily and 1500mg po qhs. Greater than 50% of the session was spent on counseling and/or coordination of care Reason for contiued inpatient stay Substantial Risk for: inability to function
[2020-11-27 16:56] VITALS: BP 138/61; PULSE 76; TEMP 37.2
[2020-11-27] MEDS: clonazePAM 1 MG TABLET PO (20:04)
[2020-11-27] MEDS: HaloperidoL 5 MG TABLET 15 MG PO (20:05)
[2020-11-27] MEDS: traZODone HCL 50 MG TABLET 150 MG PO (20:06)
[2020-11-28 06:00] VITALS: BP 144/77; PULSE 77; RESP 18
[2020-11-28] MEDS: Benztropine Mesylate 1 MG TABLET PO ×2 (09:58→20:11)
[2020-11-28 09:59] VITALS: BP 142/77; PULSE 77
[2020-11-28] MEDS: atenoloL 50 MG TABLET PO (09:59)
[2020-11-28] MEDS: hydroCHLOROthiazide 25 MG TABLET PO (09:59)
[2020-11-28] MEDS: HaloperidoL 5 MG TABLET 10 MG PO (09:59)
--- NOTE | 2020-11-28 12:22 | HO.PSYCHPN ---
Subjective Subjective Date of Service: 11/28/20 Reason For Visit: Acute Psychosis Interim History: Pt somewhat irritable this morning, stating that she did not sleep well. She is overall more organized, less paranoid delusions of unit being bugged. She does not think sister is suicidal, although thinks that it did happen. She denies SI/HI. She is looking for discharged on Tuesday and asks for reassurance from this typewriters functional tester several times. No behavioral concerns. Review of Systems Review of Systems This was limited because of her ability to answer questions correctly but there was no obvious evidence of any recent trauma convulsion or cold or flu-like illness. She had complained of bilateral leg swelling for which she had couple of ultrasounds done. Yes all other systems are reviewed and are negative Constitutional: Reports as per HPI, Reports no additional constitutional complaints, Denies chills and Denies fever(s) Eyes: Reports as per HPI and Reports no additional eye complaints Reports system reviewed and no additional complaints, except as documented and Reports as per HPI Cardiovascular: Reports as per HPI, Reports no additional cardiovascular complaints, Denies chest pain, Denies Epigastric Pain and Denies dyspnea Respiratory: Reports as per HPI, Reports no additional respiratory complaints, Denies chest congestion, Denies cough and Denies dyspnea Gastrointestinal: Reports as per HPI, Reports no additional gastrointestinal complaints, Denies abdominal pain, Denies change in stool character, Denies constipation and Denies vomiting Musculoskeletal: Reports no additional musculoskeletal complaints and Reports as per HPI Reports system reviewed and no additional complaints, except as documented and Reports as per HPI Psychiatric: Reports no additional psychiatric complaints Mental Status Exam Mental Status Exam Narrative: Appearance: [place] woman, casually groomed, less disheveled, in NAD Behavior: somewhat irritable today Psychomotor: no agitation or retardation noted Speech: clear, normal rate, less hyperverbal, spontaneous TP: more organized TC: some paranoid/episcopalian/erotomanic delusions, but conversation more appropriate in terms of asking for treatment here, plan for discharge Mood: excelent Affect: blunted AH/VH: denies Delusions: less somatic preoccupations, less ideas of being medium Insight/judgment: improving Memory/cog: alert, oriented to place, year, not situation, improving attention. Diagnostics Vital Signs (24Hr): Vital Signs - 24 hr 11/27/20 16:56 11/28/20 09:59 Temperature 98.9 F Pulse Rate 76 77 Blood Pressure 138/61 142/77 H Body Mass Index 60.1 Labs Results: 10/29/20 12:09 11/12/20 11:46 Labs: Laboratory Results - last 48 hr 11/27/20 09:17 Valproic Acid 96.2 Imaging Radiology Impressions: ITS Impressions Chest X-Ray 10/12/20 01:44 IMPRESSION: No evidence for acute disease. Head CT 10/12/20 19:11 IMPRESSION: No acute intracranial pathology. Venous Duplex 10/29/20 02:12 IMPRESSION: No DVT demonstrated in the left lower extremity. Foot X-Ray 11/07/20 13:45 IMPRESSION: Arthritis at the first MTP joint and calcaneal spurs. Venous Duplex 11/07/20 14:20 IMPRESSION: No DVT demonstrated in the bilateral lower extremity. Abdomen/Pelvis CT 11/12/20 15:20 IMPRESSION: Hepatosplenomegaly with fatty infiltration of the liver. Medications Medications Current Medications Generic Name Dose Route Start Last Admin Trade Name Freq PRN Reason Stop Dose Admin Acetaminophen 650 mg 10/14/20 22:36 11/06/20 00:28 Acetaminophen 325 Mg Tablet PO 650 mg Q6H PRN Administration Headache/Pain Mild Scale (1-3) Al Hydroxide/Mg Hydroxide 30 ml 10/14/20 22:36 Magnesium Hydrox/Alum Hydrox 30 Ml Oral.Susp PO Q6H PRN Heartburn/Nausea Atenolol 50 mg 10/12/20 09:00 11/28/20 09:59 Atenolol 50 Mg Tablet PO 50 mg DAILY INOCENCIO Administration Protocol Benztropine Mesylate 1 mg 11/07/20 10:16 Benztropine Mesylate 1 Mg Tablet PO BID PRN Extrapyramidal Effects Benztropine Mesylate 1 mg 11/09/20 21:00 11/28/20 09:58 Benztropine Mesylate 1 Mg Tablet PO 1 mg BID INOCENCIO Administration Benztropine Mesylate 1 mg 11/20/20 12:11 Benztropine Mesylate 2 Mg/2 Ml Vial IM BID PRN oral refusal Clonazepam 1 mg 11/26/20 21:00 11/27/20 20:04 Clonazepam 1 Mg Tablet PO 1 mg BEDTIME INOCENCIO Administration Clotrimazole 1 appl 10/29/20 21:00 11/28/20 12:01 Clotrimazole 1 % Cream 15 Gm Tube TOPICAL Not Given BID INOCENCIO Protocol Haloperidol 10 mg 11/10/20 09:00 11/28/20 09:59 Haloperidol 5 Mg Tablet PO 10 mg DAILY INOCENCIO Administration Haloperidol 15 mg 11/26/20 21:00 11/27/20 20:05 Haloperidol 5 Mg Tablet PO 15 mg BEDTIME INOCENCIO Administration Haloperidol Lactate 10 mg 11/19/20 15:03 Haloperidol Lactate 5 Mg/Ml Vial IM BID PRN oral refusal Hydrochlorothiazide 25 mg 10/12/20 09:00 11/28/20 09:59 Hydrochlorothiazide 25 Mg Tablet PO 25 mg DAILY INOCENCIO Administration Protocol Hydroxyzine HCl 25 mg 10/14/20 22:36 11/10/20 16:18 Hydroxyzine Hcl 25 Mg Tablet PO 25 mg Q4H PRN Administration mild Anxiety Magnesium Hydroxide 30 ml 10/14/20 22:36 Milk Of Magnesia 30 Ml Oral.Susp PO DAILY PRN Constipation Nicotine Polacrilex 4 mg 10/14/20 22:36 11/06/20 04:47 Nicotine Polacrilex 2 Mg Gum BUCCAL 4 mg Q2H PRN Administration Nicotine Cravings Trazodone HCl 50 mg 10/14/20 22:36 10/27/20 00:35 Trazodone Hcl 50 Mg Tablet PO 50 mg BEDTIME PRN Administration Insomnia Trazodone HCl 150 mg 10/30/20 21:00 11/27/20 20:06 Trazodone Hcl 50 Mg Tablet PO 150 mg BEDTIME INOCENCIO Administration Valproic Acid 500 mg 11/16/20 09:00 11/28/20 09:58 Valproic Acid (As Sodium Salt) 250 Mg/5 Ml Solution PO 500 mg DAILY INOCENCIO Administration Valproic Acid 1,500 mg 11/15/20 21:00 11/27/20 20:06 Valproic Acid (As Sodium Salt) 250 Mg/5 Ml Solution PO 1,500 mg BEDTIME INOCENCIO Administration Allergies Allergies Allergy/AdvReac Type Severity Reaction Status Date / Time kiwi [KIWI] Allergy Mild HIVES Verified 10/01/20 14:49 mold [MOLD EXTRACTS*] Allergy Mild HIVES Verified 10/01/20 14:49 Assessment & Plan Assessment & Plan (1) Bipolar disorder with psychotic features: Status: Acute Code(s): F31.9 - Bipolar disorder, unspecified Assessment and Plan: 1. continue haldol to 10mg po daily and 15mg po daily 2. Continue Depakote 500mg po daily and 1500mg po qhs. Greater than 50% of the session was spent on counseling and/or coordination of care Reason for contiued inpatient stay Substantial Risk for: inability to function
[2020-11-28 18:00] VITALS: BP 120/74; PULSE 73; TEMP 37.1
[2020-11-28] MEDS: traZODone HCL 50 MG TABLET 150 MG PO (20:11)
[2020-11-28] MEDS: clonazePAM 1 MG TABLET PO (20:11)
[2020-11-28] MEDS: HaloperidoL 5 MG TABLET 15 MG PO (20:11)
[2020-11-29 06:00] VITALS: BP 134/68; PULSE 66; TEMP 36.1
[2020-11-29 06:45] VITALS: BP 134/68; PULSE 66; TEMP 36.1
[2020-11-29 08:10] VITALS: BP 155/79; PULSE 78; RESP 14
[2020-11-29 08:13] VITALS: BP 155/79; PULSE 78
[2020-11-29] MEDS: hydroCHLOROthiazide 25 MG TABLET PO (08:13)
[2020-11-29] MEDS: atenoloL 50 MG TABLET PO (08:13)
[2020-11-29] MEDS: Benztropine Mesylate 1 MG TABLET PO ×2 (08:14→19:49)
[2020-11-29] MEDS: HaloperidoL 5 MG TABLET 10 MG PO (08:14)
--- NOTE | 2020-11-29 15:38 | HO.PSYCHPN ---
Subjective Subjective Date of Service: 11/29/20 Reason For Visit: Acute Psychosis Subjective Notes: Section 8 Interim History: Reports she feels tired from medicines but I am clear . Alert, oriented, non agitated. States she is feeling improved but tired. Well engaged in discussion Medication Compliance: Yes Side effects from medications: Yes (sedation) Review of Systems Review of Systems Yes all other systems are reviewed and are negative (denies today she reports) Reports behavioral changes Psychiatric: Reports abnormal sleep pattern and Reports behavioral changes Mental Status Exam Mental Status Exam Patient Appearance: Fatigued Patient Orientation: Person, Place and Situation Level of Consciousness: Alert Patient Behavior: Appropriate, Talkative and Cooperative Mood Description: Flat Affect Description: Flat Patient Cognition Impaired: No Ability to Follow Directions: Good Speech Pattern: Spontaneous Speech Memory Description: Remote Impaired and Episodic Impaired Hallucinations: None (denies) Delusions: Present Thought Process: Distracted Thought Content: positive for [place], positive for Circumstantial, positive for Loose Associations and positive for Tangential Depressive Symptoms: Sleeping More Than Usual and Loss of Energy Judgement: Fair Diagnostics Vital Signs (24Hr): Vital Signs - 24 hr 11/28/20 18:00 11/29/20 06:00 11/29/20 06:45 Temperature 98.7 F 97.0 F 97.0 F Pulse Rate 73 66 66 Respiratory Rate Blood Pressure 120/74 134/68 134/68 11/29/20 08:10 11/29/20 08:13 Temperature Pulse Rate 78 78 Respiratory Rate 14 Blood Pressure 155/79 H 155/79 H Body Mass Index 60.1 Labs Results: 10/29/20 12:09 11/12/20 11:46 Imaging Radiology Impressions: ITS Impressions Chest X-Ray 10/12/20 01:44 IMPRESSION: No evidence for acute disease. Head CT 10/12/20 19:11 IMPRESSION: No acute intracranial pathology. Venous Duplex 10/29/20 02:12 IMPRESSION: No DVT demonstrated in the left lower extremity. Foot X-Ray 11/07/20 13:45 IMPRESSION: Arthritis at the first MTP joint and calcaneal spurs. Venous Duplex 11/07/20 14:20 IMPRESSION: No DVT demonstrated in the bilateral lower extremity. Abdomen/Pelvis CT 11/12/20 15:20 IMPRESSION: Hepatosplenomegaly with fatty infiltration of the liver. Medications Medications Current Medications Generic Name Dose Route Start Last Admin Trade Name Freq PRN Reason Stop Dose Admin Acetaminophen 650 mg 10/14/20 22:36 11/06/20 00:28 Acetaminophen 325 Mg Tablet PO 650 mg Q6H PRN Administration Headache/Pain Mild Scale (1-3) Al Hydroxide/Mg Hydroxide 30 ml 10/14/20 22:36 Magnesium Hydrox/Alum Hydrox 30 Ml Oral.Susp PO Q6H PRN Heartburn/Nausea Atenolol 50 mg 10/12/20 09:00 11/29/20 08:13 Atenolol 50 Mg Tablet PO 50 mg DAILY INOCENCIO Administration Protocol Benztropine Mesylate 1 mg 11/07/20 10:16 Benztropine Mesylate 1 Mg Tablet PO BID PRN Extrapyramidal Effects Benztropine Mesylate 1 mg 11/09/20 21:00 11/29/20 08:14 Benztropine Mesylate 1 Mg Tablet PO 1 mg BID INOCENCIO Administration Benztropine Mesylate 1 mg 11/20/20 12:11 Benztropine Mesylate 2 Mg/2 Ml Vial IM BID PRN oral refusal Clonazepam 1 mg 11/26/20 21:00 11/28/20 20:11 Clonazepam 1 Mg Tablet PO 1 mg BEDTIME INOCENCIO Administration Clotrimazole 1 appl 10/29/20 21:00 11/29/20 08:17 Clotrimazole 1 % Cream 15 Gm Tube TOPICAL Not Given BID INOCENCIO Protocol Haloperidol 10 mg 11/10/20 09:00 11/29/20 08:14 Haloperidol 5 Mg Tablet PO 10 mg DAILY INOCENCIO Administration Haloperidol 15 mg 11/26/20 21:00 11/28/20 20:11 Haloperidol 5 Mg Tablet PO 15 mg BEDTIME INOCENCIO Administration Haloperidol Lactate 10 mg 11/19/20 15:03 Haloperidol Lactate 5 Mg/Ml Vial IM BID PRN oral refusal Hydrochlorothiazide 25 mg 10/12/20 09:00 11/29/20 08:13 Hydrochlorothiazide 25 Mg Tablet PO 25 mg DAILY INOCENCIO Administration Protocol Hydroxyzine HCl 25 mg 10/14/20 22:36 11/10/20 16:18 Hydroxyzine Hcl 25 Mg Tablet PO 25 mg Q4H PRN Administration mild Anxiety Magnesium Hydroxide 30 ml 10/14/20 22:36 Milk Of Magnesia 30 Ml Oral.Susp PO DAILY PRN Constipation Nicotine Polacrilex 4 mg 10/14/20 22:36 11/06/20 04:47 Nicotine Polacrilex 2 Mg Gum BUCCAL 4 mg Q2H PRN Administration Nicotine Cravings Trazodone HCl 50 mg 10/14/20 22:36 10/27/20 00:35 Trazodone Hcl 50 Mg Tablet PO 50 mg BEDTIME PRN Administration Insomnia Trazodone HCl 150 mg 10/30/20 21:00 11/28/20 20:11 Trazodone Hcl 50 Mg Tablet PO 150 mg BEDTIME INOCENCIO Administration Valproic Acid 500 mg 11/16/20 09:00 11/29/20 08:14 Valproic Acid (As Sodium Salt) 250 Mg/5 Ml Solution PO 500 mg DAILY INOCENCIO Administration Valproic Acid 1,500 mg 11/15/20 21:00 11/28/20 20:09 Valproic Acid (As Sodium Salt) 250 Mg/5 Ml Solution PO 1,500 mg BEDTIME INOCENCIO Administration Allergies Allergies Allergy/AdvReac Type Severity Reaction Status Date / Time kiwi [KIWI] Allergy Mild HIVES Verified 10/01/20 14:49 mold [MOLD EXTRACTS*] Allergy Mild HIVES Verified 10/01/20 14:49 Assessment & Plan Assessment & Plan (1) Bipolar disorder with psychotic features: Status: Acute Code(s): F31.9 - Bipolar disorder, unspecified (2) Acute post-traumatic stress disorder: Status: Acute Code(s): F43.11 - Post-traumatic stress disorder, acute Greater than 50% of the session was spent on counseling and/or coordination of care Reason for contiued inpatient stay Substantial Risk for: rapid decompensation
[2020-11-29 18:00] VITALS: BP 134/63; PULSE 76; TEMP 36.4
[2020-11-29] MEDS: clonazePAM 1 MG TABLET PO (19:48)
[2020-11-29] MEDS: traZODone HCL 50 MG TABLET 150 MG PO (19:49)
[2020-11-29] MEDS: HaloperidoL 5 MG TABLET 15 MG PO (19:49)
[2020-11-29 21:14] VITALS: BP 134/63; PULSE 76; TEMP 36.4
--- NOTE | 2020-11-30 08:33 | HO.PSYCHPN ---
Subjective Subjective Date of Service: 11/30/20 Reason For Visit: Acute Psychosis Subjective Notes: Section 8 Interim History: Pt is alert, oriented, calm, resting in bed. She reports she will be going home tomorrow and is looking forward to this. She denies current symptoms or concerns. Medication Compliance: Yes Side effects from medications: No Review of Systems Psychiatric: Reports no additional psychiatric complaints Mental Status Exam Mental Status Exam Patient Appearance: Appropriate Patient Orientation: Person, Place, Time and Situation Level of Consciousness: Alert Patient Behavior: Appropriate and Cooperative Mood Description: Calm Affect Description: Calm Patient Cognition Impaired: No Ability to Follow Directions: Good Speech Pattern: Spontaneous Speech Memory Description: Intact Hallucinations: None Delusions: Not Present Thought Process: Intact Thought Content: positive for Intact Judgement: Good Diagnostics Vital Signs (24Hr): Vital Signs - 24 hr 11/29/20 18:00 11/29/20 21:14 Temperature 97.6 F 97.6 F Pulse Rate 76 76 Blood Pressure 134/63 134/63 Body Mass Index 60.1 Labs Results: 10/29/20 12:09 11/12/20 11:46 Imaging Radiology Impressions: ITS Impressions Chest X-Ray 10/12/20 01:44 IMPRESSION: No evidence for acute disease. Head CT 10/12/20 19:11 IMPRESSION: No acute intracranial pathology. Venous Duplex 10/29/20 02:12 IMPRESSION: No DVT demonstrated in the left lower extremity. Foot X-Ray 11/07/20 13:45 IMPRESSION: Arthritis at the first MTP joint and calcaneal spurs. Venous Duplex 11/07/20 14:20 IMPRESSION: No DVT demonstrated in the bilateral lower extremity. Abdomen/Pelvis CT 11/12/20 15:20 IMPRESSION: Hepatosplenomegaly with fatty infiltration of the liver. Medications Medications Current Medications Generic Name Dose Route Start Last Admin Trade Name Freq PRN Reason Stop Dose Admin Acetaminophen 650 mg 10/14/20 22:36 11/06/20 00:28 Acetaminophen 325 Mg Tablet PO 650 mg Q6H PRN Administration Headache/Pain Mild Scale (1-3) Al Hydroxide/Mg Hydroxide 30 ml 10/14/20 22:36 Magnesium Hydrox/Alum Hydrox 30 Ml Oral.Susp PO Q6H PRN Heartburn/Nausea Atenolol 50 mg 10/12/20 09:00 11/29/20 08:13 Atenolol 50 Mg Tablet PO 50 mg DAILY INOCENCIO Administration Protocol Benztropine Mesylate 1 mg 11/07/20 10:16 Benztropine Mesylate 1 Mg Tablet PO BID PRN Extrapyramidal Effects Benztropine Mesylate 1 mg 11/09/20 21:00 11/29/20 19:49 Benztropine Mesylate 1 Mg Tablet PO 1 mg BID INOCENCIO Administration Benztropine Mesylate 1 mg 11/20/20 12:11 Benztropine Mesylate 2 Mg/2 Ml Vial IM BID PRN oral refusal Clonazepam 1 mg 11/26/20 21:00 11/29/20 19:48 Clonazepam 1 Mg Tablet PO 1 mg BEDTIME INOCENCIO Administration Clotrimazole 1 appl 10/29/20 21:00 11/29/20 19:52 Clotrimazole 1 % Cream 15 Gm Tube TOPICAL Not Given BID INOCENCIO Protocol Haloperidol 10 mg 11/10/20 09:00 11/29/20 08:14 Haloperidol 5 Mg Tablet PO 10 mg DAILY INOCENCIO Administration Haloperidol 15 mg 11/26/20 21:00 11/29/20 19:49 Haloperidol 5 Mg Tablet PO 15 mg BEDTIME INOCENCIO Administration Haloperidol Lactate 10 mg 11/19/20 15:03 Haloperidol Lactate 5 Mg/Ml Vial IM BID PRN oral refusal Hydrochlorothiazide 25 mg 10/12/20 09:00 11/29/20 08:13 Hydrochlorothiazide 25 Mg Tablet PO 25 mg DAILY INOCENCIO Administration Protocol Hydroxyzine HCl 25 mg 10/14/20 22:36 11/10/20 16:18 Hydroxyzine Hcl 25 Mg Tablet PO 25 mg Q4H PRN Administration mild Anxiety Magnesium Hydroxide 30 ml 10/14/20 22:36 Milk Of Magnesia 30 Ml Oral.Susp PO DAILY PRN Constipation Nicotine Polacrilex 4 mg 10/14/20 22:36 11/06/20 04:47 Nicotine Polacrilex 2 Mg Gum BUCCAL 4 mg Q2H PRN Administration Nicotine Cravings Trazodone HCl 50 mg 10/14/20 22:36 10/27/20 00:35 Trazodone Hcl 50 Mg Tablet PO 50 mg BEDTIME PRN Administration Insomnia Trazodone HCl 150 mg 10/30/20 21:00 11/29/20 19:49 Trazodone Hcl 50 Mg Tablet PO 150 mg BEDTIME INOCENCIO Administration Valproic Acid 500 mg 11/16/20 09:00 11/29/20 08:14 Valproic Acid (As Sodium Salt) 250 Mg/5 Ml Solution PO 500 mg DAILY INOCENCIO Administration Valproic Acid 1,500 mg 11/15/20 21:00 11/29/20 19:50 Valproic Acid (As Sodium Salt) 250 Mg/5 Ml Solution PO 1,500 mg BEDTIME INOCENCIO Administration Allergies Allergies Allergy/AdvReac Type Severity Reaction Status Date / Time kiwi [KIWI] Allergy Mild HIVES Verified 10/01/20 14:49 mold [MOLD EXTRACTS*] Allergy Mild HIVES Verified 10/01/20 14:49 Assessment & Plan Assessment & Plan (1) Bipolar disorder with psychotic features: Status: Acute Code(s): F31.9 - Bipolar disorder, unspecified Greater than 50% of the session was spent on counseling and/or coordination of care Reason for contiued inpatient stay Substantial Risk for: stable for discharge (12/01/20)
[2020-11-30] MEDS: HaloperidoL 5 MG TABLET 10 MG PO (09:04)
[2020-11-30 09:05] VITALS: BP 140/85; PULSE 79
[2020-11-30] MEDS: Benztropine Mesylate 1 MG TABLET PO ×2 (09:05→19:33)
[2020-11-30] MEDS: atenoloL 50 MG TABLET PO (09:05)
[2020-11-30] MEDS: hydroCHLOROthiazide 25 MG TABLET PO (09:05)
[2020-11-30 18:00] VITALS: BP 130/80; PULSE 68; TEMP 36.3
[2020-11-30] MEDS: HaloperidoL 5 MG TABLET 15 MG PO (19:33)
[2020-11-30] MEDS: clonazePAM 1 MG TABLET PO (19:33)
[2020-11-30] MEDS: traZODone HCL 50 MG TABLET 150 MG PO (19:34)
[2020-12-01 06:30] VITALS: BP 123/57; PULSE 69; RESP 18; TEMP 36.2; O2SAT 98
[2020-12-01 08:52] VITALS: BP 128/78; PULSE 78
[2020-12-01] MEDS: HaloperidoL 5 MG TABLET 10 MG PO (08:52)
[2020-12-01] MEDS: hydroCHLOROthiazide 25 MG TABLET PO (08:52)
[2020-12-01] MEDS: atenoloL 50 MG TABLET PO (08:52)
[2020-12-01] MEDS: Benztropine Mesylate 1 MG TABLET PO (08:53)
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
--- NOTE | 2020-12-01 14:17 | HO.PSYCHPN ---
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 NO GROSS HALLUCINATION OR DELUSIONAL MATERIAL FUTURE ORIENTED DID STATING SAFE FOR DISCHARGE Medication Compliance: Yes Mental Status Exam Mental Status Exam Patient Appearance: Appropriate Patient Orientation: Person, Place, Time and Situation Level of Consciousness: Alert Patient Behavior: Appropriate and Cooperative Mood Description: Calm Affect Description: Calm Patient Cognition Impaired: No Ability to Follow Directions: Good Speech Pattern: Spontaneous Speech Memory Description: Intact Hallucinations: None Delusions: Not Present Thought Process: Intact Thought Content: positive for Intact Judgement: Good Diagnostics Vital Signs (24Hr): Vital Signs - 24 hr 11/30/20 18:00 12/01/20 06:30 12/01/20 08:52 Temperature 97.3 F 97.2 F Pulse Rate 68 69 78 Respiratory Rate 18 Blood Pressure 130/80 123/57 L 128/78 Pulse Oximetry 98 Body Mass Index 60.1 Labs Results: 10/29/20 12:09 11/12/20 11:46 Imaging Radiology Impressions: ITS Impressions Chest X-Ray 10/12/20 01:44 IMPRESSION: No evidence for acute disease. Head CT 10/12/20 19:11 IMPRESSION: No acute intracranial pathology. Venous Duplex 10/29/20 02:12 IMPRESSION: No DVT demonstrated in the left lower extremity. Foot X-Ray 11/07/20 13:45 IMPRESSION: Arthritis at the first MTP joint and calcaneal spurs. Venous Duplex 11/07/20 14:20 IMPRESSION: No DVT demonstrated in the bilateral lower extremity. Abdomen/Pelvis CT 11/12/20 15:20 IMPRESSION: Hepatosplenomegaly with fatty infiltration of the liver. Medications Allergies Allergies Allergy/AdvReac Type Severity Reaction Status Date / Time kiwi [KIWI] Allergy Mild HIVES Verified 10/01/20 14:49 mold [MOLD EXTRACTS*] Allergy Mild HIVES Verified 10/01/20 14:49 Assessment & Plan Assessment & Plan (1) Bipolar disorder with psychotic features: Status: Acute Code(s): F31.9 - Bipolar disorder, unspecified Assessment and Plan: SEE DISCHARGE SUMMARY PATIENT PLEASANT FUTURE ORIENTED SEEMS SAFE FOR DISCHARGE PRESCRIPTIONS SENT PATIENT AGREEABLE TO OUTPATIENT TREATMENT Greater than 50% of the session was spent on counseling and/or coordination of care Reason for contiued inpatient stay Substantial Risk for: stable for discharge
== END 2020-12-01 11:40 | disposition home or self-care (01) | DRG 753 ==
LOC: HO.ED 10-14 20:16 → HO.PM5 10-14 22:39
PROVIDERS: Nurse Practitioner Family; Nurse Practitioner Psychiatric/Mental Health; Physician Assistant; Admitting Provider Psychiatry & Neurology Psychiatry; Emergency Provider Emergency Medicine; PCP Internal Medicine; Visit Provider Social Worker
DX: F31.13 Bipolar disorder, current episode manic without psychotic features, severe (principal); D68.51 Activated protein C resistance; E66.01 Morbid (severe) obesity due to excess calories; I87.393 Chronic venous hypertension (idiopathic) with other complications of bilateral lower extremity; I10 Essential (primary) hypertension; Z68.44 Body mass index [BMI] 60.0-69.9, adult; Z20.822 Contact with and (suspected) exposure to COVID-19; Z79.899 Other long term (current) drug therapy
CPT/HCPCS: 0241U; 36415; 70450; 71046; 73620; 74177; 80053; 80061; 80076; 80164; 80307; 80320; 81003; 81025; 82140; 82248; 82525; 82607; 82728; 82746; 82947; 83036; 83540; 83615; 84439; 84443; 84702; 85025; 85379; 85610; 85652; 86038; 86039; 86147; 86618; 86780; 87086; 87389; 87635; 93005; 93970; 93971; 99282; 99285; J0515; J2060; Q9967

== ENCOUNTER 2021-05-20 10:42 | Outpatient (REF) | payer OTHER, SELFPAY ==
[2021-05-20 13:42] LABS: MANUAL DIFF FLAG NO
[2021-05-20 14:07] LABS: Estimated Average Glucose 154 mg/dL
[2021-05-20 14:16] LABS: Red Blood Count 4.71 X10*6/uL (4.20-5.50); White Blood Count 12.5 X10*3/uL (4.8-10.8)
[2021-05-20 14:17] LABS: Basophils Absolute Auto 0.1 X10*3/uL (0.0-0.2); Basophils Percent Auto 0.4 % (0-2); Eosinophils Absolute Auto 0.2 X10*3/uL (0.0-0.4); Eosinophils Percent Auto 1.5 % (0-4); Hematocrit 40.4 % (37-47); Hemoglobin 13.1 g/dl (12.0-16.0); Imm Gran Abs Auto 0.22 X10*3/uL (0.00-0.03); Imm Gran Pct Auto 1.8 % (0.0-0.4); Lymphocytes Percent Auto 24.1 % (20-40); Mean Corpuscular HGB Conc 32.4 g/dl (31.0-35.0); Mean Corpuscular Hemoglobin 27.8 pg (27.0-33.0); Mean Corpuscular Volume 85.8 fL (80-98); Mean Platelet Volume 9.8 fL (9.4-12.3); Monocytes Absolute Auto 0.7 X10*3/uL (0.1-1.2); Monocytes Percent Auto 5.7 % (2-11); Neutrophils Absolute Auto 8.3 X10*3/uL (2.0-8.3); Neutrophils Percent Auto 66.5 % (45-73); Platelet Count 236 X10*3/uL (160-400); Red Cell Distribution Width 13.1 % (11.0-16.0)
[2021-05-20 14:45] LABS: TSH reflex Free T4 1.64 uIU/mL (0.32-4.0)
[2021-05-20 14:47] LABS: Alanine Aminotransferase 59 U/L (0-31); Albumin Level 4.4 g/dL (3.5-5.0); Alkaline Phosphatase 71 U/L (39-117); Anion Gap 15 (12-20); Aspartate Amino Transferase 42 U/L (5-31); Bilirubin Direct 0.2 mg/dL (0.0-0.5); Bilirubin Total 0.7 mg/dL (0.0-1.0); Blood Urea Nitrogen 14 mg/dL (9-16); Calcium 9.5 mg/dL (8.4-10.2); Carbon Dioxide 30 mmol/L (22-29); Chloride 102 mmol/L (96-108); Cholesterol 284 mg/dL; Estimated Glomerular Filt Rate > 60; Glucose Fasting 110 mg/dL (60-99); HDL Cholesterol 90 mg/dL; LDL Cholesterol Calculated 146 mg/dl; Potassium 4.2 mmol/L (3.3-5.1); Sodium 143 mmol/L (135-145); Total Protein 7.4 g/dL (6.5-8.0); Triglycerides 240 mg/dL
== END 2021-05-20 10:43 | disposition home or self-care (01) ==
LOC: HO.HMGCLDS 10:42
PROVIDERS: PCP Internal Medicine; Visit Provider Internal Medicine
DX: Z00.01 Encounter for general adult medical examination with abnormal findings (principal); D68.51 Activated protein C resistance; J45.998 Other asthma; E66.01 Morbid (severe) obesity due to excess calories; I10 Essential (primary) hypertension; F31.9 Bipolar disorder, unspecified; J06.9 Acute upper respiratory infection, unspecified
CPT/HCPCS: 36415; 80048; 80053; 80061; 82248; 83036; 84443; 85025

== ENCOUNTER 2022-02-10 10:56 | Outpatient (REF) | payer OTHER, SELFPAY ==
[2022-02-10 14:00] LABS: MANUAL DIFF FLAG NO
[2022-02-10 14:17] LABS: Estimated Average Glucose 269 mg/dL
[2022-02-10 14:28] LABS: Basophils Absolute Auto 0.1 X10*3/uL (0.0-0.2); Basophils Percent Auto 0.5 % (0-2); Eosinophils Absolute Auto 0.3 X10*3/uL (0.0-0.4); Eosinophils Percent Auto 2.1 % (0-4); Hematocrit 41.4 % (37.0-47.0); Hemoglobin 13.4 g/dl (12.0-16.0); Imm Gran Pct Auto 0.8 % (0.0-0.4); Lymphocytes Absolute Auto 2.5 X10*3/uL (1.2-4.9); Lymphocytes Percent Auto 20.9 % (20-40); Mean Corpuscular HGB Conc 32.4 g/dl (31.0-35.0); Mean Corpuscular Volume 86.6 fL (80.0-98.0); Mean Platelet Volume 10.4 fL (9.4-12.3); Monocytes Absolute Auto 0.7 X10*3/uL (0.1-1.2); Monocytes Percent Auto 5.6 % (2-11); Neutrophils Absolute Auto 8.5 x10*3/uL (2.0-8.3); Neutrophils Percent Auto 70.1 % (45-73); Platelet Count 258 X10*3/uL (160-400); Red Blood Count 4.78 X10*6/uL (4.20-5.50); Red Cell Distribution Width 13.2 % (11.0-16.0); White Blood Count 12.1 X10*3/uL (4.8-10.8)
[2022-02-10 14:31] LABS: Alanine Aminotransferase 56 U/L (0-31); Albumin Level 4.4 g/dL (3.5-5.0); Alkaline Phosphatase 102 U/L (39-117); Anion Gap 19 (12-20); Aspartate Amino Transferase 79 U/L (5-31); Bilirubin Total 0.7 mg/dL (0.0-1.0); Blood Urea Nitrogen 8 mg/dL (9-16); Calcium 9.6 mg/dL (8.4-10.2); Carbon Dioxide 29 mmol/L (22-29); Chloride 96 mmol/L (96-108); Cholesterol 252 mg/dL; Estimated Glomerular Filt Rate > 60; Glucose Fasting 209 mg/dL (60-99); HDL Cholesterol 52 mg/dL; LDL Cholesterol Calculated 157 mg/dl; Potassium 3.6 mmol/L (3.3-5.1); Sodium 140 mmol/L (135-145); Total Protein 7.9 g/dL (6.5-8.0); Triglycerides 217 mg/dL
[2022-02-10 14:53] LABS: TSH reflex Free T4 2.02 uIU/mL (0.32-4.0)
== END 2022-02-10 10:57 | disposition home or self-care (01) ==
LOC: HO.HMGCLDS 10:56
PROVIDERS: PCP Internal Medicine; Visit Provider Internal Medicine
DX: Z00.01 Encounter for general adult medical examination with abnormal findings (principal); E13.9 Other specified diabetes mellitus without complications; E66.01 Morbid (severe) obesity due to excess calories; F31.9 Bipolar disorder, unspecified; F41.9 Anxiety disorder, unspecified; I10 Essential (primary) hypertension; J45.40 Moderate persistent asthma, uncomplicated
CPT/HCPCS: 36415; 80053; 80061; 83036; 84443; 85025

== ENCOUNTER → 2022-03-16 14:13 | Outpatient (BNVA) | payer OTHER, SELFPAY | PROVIDERS: PCP Internal Medicine; Referring Provider Internal Medicine; Visit Provider Nurse Practitioner Family | DX: K21.9 Gastro-esophageal reflux disease without esophagitis (principal); K58.2 Mixed irritable bowel syndrome; E66.01 Morbid (severe) obesity due to excess calories; Z68.45 Body mass index [BMI] 70 or greater, adult; K64.9 Unspecified hemorrhoids | CPT/HCPCS: 99202 ==

== ENCOUNTER 2022-03-17 08:31 | Outpatient (REF) | payer OTHER, SELFPAY ==
[2022-03-17 12:06] LABS: Alanine Aminotransferase 43 U/L (0-31); Albumin Level 4.4 g/dL (3.5-5.0); Alkaline Phosphatase 87 U/L (39-117); Aspartate Amino Transferase 57 U/L (5-31); Bilirubin Direct 0.4 mg/dL (0.0-0.5); Total Protein 7.8 g/dL (6.5-8.0)
[2022-03-19 11:17] LABS: Transglutaminase Ab IgG <1.0 U/mL; Transglutaminase IgA <1.0 U/mL
== END 2022-03-17 08:32 | disposition home or self-care (01) ==
LOC: HO.HMGCLDS 08:31
PROVIDERS: PCP Internal Medicine; Visit Provider Nurse Practitioner Family
DX: R10.9 Unspecified abdominal pain (principal)
CPT/HCPCS: 36415; 80076; 86364

== ENCOUNTER 2022-07-27 14:52 | Outpatient (REF) | payer OTHER, SELFPAY ==
[2022-07-27 16:33] LABS: MANUAL DIFF FLAG NO
[2022-07-27 16:39] LABS: Basophils Absolute Auto 0.1 X10*3/uL (0.0-0.2); Basophils Percent Auto 0.6 % (0-2); Eosinophils Absolute Auto 0.3 X10*3/uL (0.0-0.4); Eosinophils Percent Auto 2.2 % (0-4); Hematocrit 43.3 % (37.0-47.0); Hemoglobin 14.7 g/dl (12.0-16.0); Imm Gran Abs Auto 0.07 X10*3/uL (0.00-0.03); Imm Gran Pct Auto 0.6 % (0.0-0.4); Lymphocytes Percent Auto 25.5 % (20-40); Mean Corpuscular HGB Conc 33.9 g/dl (31.0-35.0); Mean Corpuscular Hemoglobin 28.2 pg (27.0-33.0); Mean Corpuscular Volume 83.1 fL (80.0-98.0); Mean Platelet Volume 10.7 fL (9.4-12.3); Monocytes Absolute Auto 0.8 X10*3/uL (0.1-1.2); Monocytes Percent Auto 6.6 % (2-11); Neutrophils Absolute Auto 7.5 x10*3/uL (2.0-8.3); Neutrophils Percent Auto 64.5 % (45-73); Platelet Count 254 X10*3/uL (160-400); Red Blood Count 5.21 X10*6/uL (4.20-5.50); Red Cell Distribution Width 12.4 % (11.0-16.0); White Blood Count 11.6 X10*3/uL (4.8-10.8)
[2022-07-27 18:27] LABS: Alanine Aminotransferase 51 U/L (0-31); Albumin Level 4.4 g/dL (3.5-5.0); Alkaline Phosphatase 114 U/L (39-117); Anion Gap 16 (12-20); Aspartate Amino Transferase 61 U/L (5-31); Bilirubin Total 0.9 mg/dL (0.0-1.0); Blood Urea Nitrogen 7 mg/dL (9-16); Calcium 10.1 mg/dL (8.4-10.2); Carbon Dioxide 30 mmol/L (22-29); Chloride 95 mmol/L (96-108); Estimated Glomerular Filt Rate > 60; Glucose Random 400 mg/dL (60-115); Potassium 3.8 mmol/L (3.3-5.1); Sodium 137 mmol/L (135-145); TSH reflex Free T4 2.13 uIU/mL (0.32-4.0); Total Protein 8.2 g/dL (6.5-8.0)
[2022-07-28 05:12] LABS: Estimated Average Glucose 324 mg/dL; Hemoglobin A1c % 12.9 %
[2022-07-30 09:47] LABS: LDL Cholesterol Direct 193 mg/dL (<100)
== END 2022-07-27 14:53 | disposition home or self-care (01) ==
LOC: HO.HMGCLDS 14:52
PROVIDERS: PCP Internal Medicine; Visit Provider Internal Medicine
DX: E13.9 Other specified diabetes mellitus without complications (principal); F41.9 Anxiety disorder, unspecified; J45.40 Moderate persistent asthma, uncomplicated; I10 Essential (primary) hypertension
CPT/HCPCS: 36415; 80053; 83036; 83721; 84443; 85025

== ENCOUNTER → 2022-10-21 12:12 | Outpatient (BNVA) | payer OTHER, SELFPAY | PROVIDERS: PCP Internal Medicine; Visit Provider Internal Medicine Endocrinology, Diabetes & Metabolism | DX: E11.65 Type 2 diabetes mellitus with hyperglycemia (principal); Z79.85 Long-term (current) use of injectable non-insulin antidiabetic drugs | CPT/HCPCS: 82947; 83036; 99202 ==

== ENCOUNTER 2022-11-24 15:14 | Outpatient (REF) | payer OTHER, SELFPAY ==
[2022-11-24 17:58] LABS: Alanine Aminotransferase 45 U/L (0-31); Albumin Level 4.5 g/dL (3.5-5.0); Alkaline Phosphatase 88 U/L (39-117); Anion Gap 19 (12-20); Aspartate Amino Transferase 43 U/L (5-31); Blood Urea Nitrogen 10 mg/dL (9-16); Calcium 9.7 mg/dL (8.4-10.2); Carbon Dioxide 29 mmol/L (22-29); Chloride 97 mmol/L (96-108); Estimated Glomerular Filt Rate > 60; Glucose Random 161 mg/dL (60-115); Potassium 3.2 mmol/L (3.3-5.1); Sodium 142 mmol/L (135-145); Total Protein 7.7 g/dL (6.5-8.0)
== END 2022-11-24 15:15 | disposition home or self-care (01) ==
LOC: HO.HMGCLDS 15:14
PROVIDERS: PCP Internal Medicine; Visit Provider Internal Medicine
DX: E66.01 Morbid (severe) obesity due to excess calories (principal); J45.40 Moderate persistent asthma, uncomplicated; I10 Essential (primary) hypertension
CPT/HCPCS: 36415; 80053

== ENCOUNTER 2023-06-04 22:55 | Inpatient (IN) | payer OTHER, SELFPAY ==
--- OUTSIDE RECORDS SUMMARY | 2023-06-04 22:59 | XMS_ITS | Continuity of Care Document ---
Author Name Unknown Organization [facility] Christophe [id number] Address [address] [place] [address], [address] [place] [address]- Care Team Providers Care Surveying Crew Stake Runner Name Role Phone Franklyn MONTOYA, Jose Primary Care Physician [id number] Date(s): 09/18/21 - 01/23/22 [facility] [employer] [facility] [address] [place] [address], [address] [place], [place] [address] Attending Physician: Not on Staff, Attending MD Referring Physician: Franklyn MONTOYA, Jose Allergies, Adverse Reactions, Alerts No Known Allergies Medications albuterol CFC free 90 mcg/inh inhalation aerosol 2, puffs, Inhalation, 4 times a day, PRN, # 1 each, Refills 0, Tot. Refills 0, Maintenance, 12/28/16 12:08:44, Print Requisition Start Date: 12/28/16 Status: Ordered fluconazole 150 mg oral tablet 1 tablet = 150 mg, By Mouth, Once, take on tablet now and one tablet in 48hrs, # 2 tablet, 1 Refills, Soft Stop, 05/21/20 19:39:00 EDT, Tablet, [id number], 174, cm, 05/21/20 19:19:00EDT, Height, 168.7, kg, 06/20/18 11:04:00 EDT, Dry... Start Date: 05/21/20 Status: Ordered hydrochlorothiazide 25 mg oral tablet 25 mg, 1, tablet, By Mouth, Daily, # 30 tablet, Refills 0, Maintenance, 09/12/18 11:15:36 EST Start Date: 09/12/18 Status: Ordered Provera 5 mg oral tablet 2 tablet = 10 mg, By Mouth, Daily, use as directed, # 20 tablet, 0 Refills, Maintenance, 08/10/21 13:34:00 EST, [facility] #[id number], 174, cm, 05/21/20 19:19:00 EDT, Height Start Date: 08/10/21 Stop Date: 08/20/21 Status: Ordered Problem List Condition Effective Dates Status Health Status Inform ant Factor V Leiden(Confirmed) Active Metabolic syndrome X(Confirmed) Active Pompholyx(Confirmed) Active Social History Social History Type Response Smoking Status Former smoker, quit more than 30 days ago;Never; Type: Cigarettes; Other: Quit 2011; Tobacco use times per day: Smoked 1 pack per MONTH for approx. 2 years.; Number of years: 2; entered on: 05/21/20 Sex
--- OUTSIDE RECORDS SUMMARY | 2023-06-04 22:59 | XMS_ITS | Continuity of Care Document ---
Author Name Unknown Organization [facility] Mi[employer]gen Salcedo [employer] [facility] Address [address] [place] [address], [address], [place] [address]- Care Team Providers Care Nuclear Criticality Safety Engineer Name Role Phone Franklyn MONTOYA, Asma Primary Care Physician [facility] [id number] Date(s): 03/10/22 - 04/09/22 [facility] [address], [address] [place], [place] [address] Attending Physician: AdmChinyere rodgers Admitting Physician: AdmtrChinyere Referring Physician: Admtr, Ar8 Allergies, Adverse Reactions, Alerts No Known Allergies [...] Refills, Soft Stop, 05/21/20 19:39:00 EDT, Tablet, [facility][id number], 174, cm, 05/21/20 19:19:00EDT, Height, 168.7, kg, [...] tablet, 0 Refills, Maintenance, 08/10/21 13:34:00 EST, [id number], 174, cm, 05/21/20 19:19:00 EDT, Height [...]
--- OUTSIDE RECORDS SUMMARY | 2023-06-04 22:59 | XMS_ITS | Continuity of Care Document ---
Author Name Unknown Organization [facility] Christophe [employer] [facility] Address [address] [place] [address], [address] [place] [address]- Care Team Providers Care Soldering Inspector Name Role Phone Franklyn MONTOYA, [facility] Primary [facility] Physician [id number] Date(s): 02/23/22 - 03/25/22 [facility] [employer] [facility] [address] [place] [address], [address] [place], [place] [address] Allergies, Adverse Reactions, Alerts No Known Allergies [...] Refills, Soft Stop, 05/21/20 19:39:00 EDT, Tablet, [id number], 174, cm, 05/21/20 19:19:00EDT, Height, 168.7, kg, [...]
--- OUTSIDE RECORDS SUMMARY | 2023-06-04 22:59 | XMS_ITS | Continuity of Care Document ---
Author Name Unknown Organization [facility] Christophevirgen Salcedo [employer] [facility] Address [address] [place] [address], [place], [place] [address]- Care Team Providers Care Plating Equipment Tender Name Role Phone Franklyn MONTOYA, Asma Primary Care Physician [facility] [id number] Date(s): 12/24/21 - 01/23/22 [facility] [address] [place] [address], [address] [place], [place] [address] Attending Physician: AdmChinyere rodgers Admitting Physician: AdmtrChinyere [...] Refills, Soft Stop, 05/21/20 19:39:00 EDT, Tablet, [facility][id number], 174, cm, 05/21/20 19:19:00EDT, Height, 168.7, kg, [...]
--- OUTSIDE RECORDS SUMMARY | 2023-06-04 22:59 | XMS_ITS | Continuity of Care Document ---
Author Name Unknown Organization [facility] Address [address] [place] [address] [address] [place] [address]- Care Team Providers Care Motor Tune Up Specialist Name Role Phone Franklyn MONTOYA, Jose Primary Care Physician [id number] Date(s): 07/17/22 - 11/14/[address] [place] [address]- Attending Physician: Matthew Merritt MD Referring Physician: Jose Estes MD Allergies, Adverse Reactions, Alerts Substance Reaction Severity Status Mold Hives Active Kiwi Hives Active Medications albuterol CFC free 90 mcg/inh inhalation aerosol 2, puffs, Inhalation, 4 times a day, PRN, # 1 each, Refills 0, Tot. Refills 0, Maintenance, 12/28/16 12:08:44, Print Requisition Start Date: 12/28/16 Status: Ordered atenolol-chlorthalidone 50 mg-25 mg oral tablet 1 tablet, By Mouth, Daily, # 30 tablet, 0 Refills, Maintenance, 06/08/22 13:28:00 EDT, Tablet, Partial fill upon patient request if the prescription is for a schedule II opioid drug. Start Date: 06/08/22 Status: Ordered fluconazole 150 mg oral tablet 1 tablet = 150 mg, By Mouth, Once, take on tablet now and one tablet in 48hrs, # 2 tablet, 1 Refills, Soft Stop, 05/21/20 19:39:00 EDT, Tablet, [facility] #[id number], 174, cm, 05/21/20 19:19:00EDT, Height, 168.7, kg, 06/20/18 11:04:00 EDT, Dry... Start Date: 05/21/20 Status: Ordered glipiZIDE 10 mg oral tablet 1 tablet = 10 mg, By Mouth, Daily, # 30 tablet, 0 Refills, Maintenance, 06/08/22 13:28:00 EDT, Tablet, Partial fill upon patient request if the prescription is for a schedule II opioid drug. Start Date: 06/08/22 Status: Ordered hydrochlorothiazide 25 mg oral tablet 25 mg, 1, tablet, By Mouth, Daily, # 30 tablet, Refills 0, Maintenance, 09/12/18 11:15:36 EST Start Date: 09/12/18 Status: Ordered Latuda 20 mg oral tablet 1 tablet = 20 mg, By Mouth, Daily, # 30 tablet, 0 Refills, Maintenance, 06/08/22 13:27:00 EDT, Tablet, Partial fill upon patient request if the prescription is for a schedule II opioid drug. Start Date: 06/08/22 Status: Ordered Provera 5 mg oral tablet 2 tablet = 10 mg, By Mouth, Daily, use as directed, # 20 tablet, 0 Refills, Maintenance, 08/10/21 13:34:00 EST, [facility]/pharm[facility] #[id number], 174, cm, 05/21/20 19:19:00 EDT, Height Start Date: 08/10/21 Stop Date: 08/20/21 Status: Ordered Problem List Condition Confirmation Course Effective Dates Status Health St atus Informant Factor V Leiden Confirmed Active Metabolic syndrome X Confirmed Active Pompholyx Confirmed Active Severe obesity Confirmed Active Social History Social History Type Response Smoking Status Former smoker, quit more than 30 days ago;Never; Type: Cigarettes; Other: Quit 2011; Tobacco use times per day: Smoked 1 pack per MONTH for approx. 2 years.; Number of years: 2; entered on: 05/21/20 Sex Patient Care team information Care Team Personnel Name: Kiera Dupont MD Position: [facility] ICE PULLER MD Member Role: Lifetime ICE PULLER Physician Address: Address: [address], [address] [facility] [place] [address]- Name: Jose Estes MD Position: [facility] Physician (General Medicine) Member Role: PCP Address: Address: [address] [place] [address]- Care Team Related Persons Name: KASSANDRA WILHELM Address: [address] [address] Name: JESÚS WILHELM Address: [place] [address]
--- OUTSIDE RECORDS SUMMARY | 2023-06-04 22:59 | XMS_ITS | Continuity of Care Document ---
Author Name Unknown Organization [facility] [employer] [facility] Address [address] [place] [address], [address] [place] [address]- Care Team Providers Care Campus Recruiting Coordinator Name Role Phone Franklyn MONTOYA, [facility] Primary Care Physician [id number] Date(s): 03/09/22 - 04/08/22 [facility] [employer] [employer] [address], [address] [place], [place] [address] Allergies, Adverse Reactions, Alerts No Known Allergies [...] Refills, Soft Stop, 05/21/20 19:39:00 EDT, Tablet, [facility] #[id number], 174, cm, 05/21/20 19:19:00EDT, Height, 168.7, kg, [...]
--- OUTSIDE RECORDS SUMMARY | 2023-06-04 22:59 | XMS_ITS | Continuity of Care Document ---
Author Name Unknown Organization [facility] Address [address] [place] [address]- Care Team Providers Care Tnt Powder Worker Name Role Phone Franklyn MONTOYA, Asma Primary Care Physician [place] [facility] [place] 12/13/22 - 12/13/[address] [address]- Encounter Diagnosis Abnormal behavior(Final) - 12/13/22 Discharge Disposition: A-D/C Home Attending Physician: Thierry Baron MD Admitting Physician: Thierry Baron MD Referring Physician: Not on Staff, Referring MD Allergies, Adverse Reactions, Alerts Substance Reaction Severity Status Mold Hives Active Kiwi Hives Active Medications albuterol CFC free 90 mcg/inh inhalation aerosol 2, puffs, Inhalation, 4 times a day, PRN, # 1 each, Refills 0, Tot. Refills 0, Maintenance, 12/28/16 12:08:44, Print Requisition Start Date: 12/28/16 Status: Ordered atenolol 50 mg oral tablet 50 mg, Tablet, By Mouth, 12/13/22 12:22:00 EDT Start Date: 12/13/22 Stop Date: 12/13/22 Status: Completed atenolol-chlorthalidone 50 mg-25 mg oral tablet 1 tablet, By Mouth, Daily, # 30 tablet, 0 Refills, Maintenance, 06/08/22 13:28:00 EDT, Tablet, Partial fill upon patient request if the prescription is for a schedule II opioid drug. Start Date: 06/08/22 Status: Ordered atorvastatin 20 mg oral tablet 1 tablet = 20 mg, By Mouth, Daily, # 30 tablet, 0 Refills, Maintenance, 12/13/22 10:53:00 EDT, Tablet, Partial fill upon patient request if the prescription is for a schedule II opioid drug. Start Date: 12/13/22 Status: Ordered cephalexin monohydrate 500 mg oral capsule 1 capsule = 500 mg, By Mouth, 4 times a day, # 28 capsule, 0 Refills, Maintenance, 12/13/22 10:53:00 EDT, Capsule, Partial fill upon patient request if the prescription is for a schedule II opioid drug. Start Date: 12/13/22 Stop Date: 12/20/22 Status: Ordered Latuda 20 mg oral tablet [...] tablet, 0 Refills, Maintenance, 08/10/21 13:34:00 EST, [facility]/pharmacy #[id number], 174, cm, 05/21/20 19:19:00 EDT, Height Start Date: 08/10/21 Stop Date: 08/20/21 Status: Ordered Trulicity Pen 1.5 mg/0.5 mL subcutaneous solution 0.5 mL = 1.5 mg, Subcutaneous Injection, Every week, 0 Refills, Maintenance, 12/13/22 10:53:00 EDT,Solution, Partial fill upon patient request if the prescription is for a schedule II opioid drug. Start Date: 12/13/22 Status: Ordered Problem List Condition Confirmation Course Effective Dates Status Health St atus Informant Factor V Leiden Confirmed Active Metabolic syndrome X Confirmed Active Pompholyx Confirmed Active Severe obesity Confirmed Active Vital Signs Most recent to oldest [Reference Range]: 1 2 Oxygen Saturation [94-100 %] 98 % (12/13/22 10:08 AM) Pulse Rate [55-90 bpm] 88 bpm (12/13/22 12:15 PM) 91 bpm *H* (12/13/22 10:08 AM) Blood Pressure [90-138/55-84 mm Hg] 130/ 86mm Hg (12/13/22 12:15 PM) 137/80mm Hg (12/13/22 10:08 AM) Respiratory Rate [16-30 br/min] 18 br/mi n (12/13/22 10:08 AM) Temperature [96.8-100.4 DegF] 98.3 DegF (12/13/22 10:08 AM) Mode of Delivery (Oxygen) Room air (12/13/22 10:08 AM) Blood pressure sites Arm, left (12/13/22 10:08 AM) Temperature Route Oral (12/13/22 10:08 AM) Social History Social History Type Response Smoking Status Former smoker, quit more than 30 days ago;Never; Type: Cigarettes; Other: Quit 2011; Tobacco use times per day: Smoked 1 pack per MONTH for approx. 2 years.; Number of years: 2; entered on: 05/21/20 Sex Note * Mt Zavala MD: PERFORM Event Display: Patient Education Leaflets Authored Date: Bipolar Disorder ?? [id number] Bipolar Disorder Bipolar disorder is a serious, life-altering illness. It causes strong mood swings between depression and brendon. It used to be called manic depression. The mood swings are different from the normal ups and downs people have in their lives. They are more severe and last longer. They can seriously interfere with work and relationships. These episodes are changes from usual moods and behavior. They can be mild, or drastic and explosive. The time between feelings of depression and brendon varies with each person. It can be weeks, month, or even years. ??? In a manic episode, you may think fast and do things quickly. It may seem like you are getting a lot done. It may feel very good at first. But in the extreme, brendon can lead to a lifestyle that is disorganized and chaotic. You may take part in risky behavior. Examples are spending sprees, sexual acting-out, or drug use. In later stages, you may have no interest in food. You may not be able tosleep for days at a time. Your speech may speed up and become hard to understand. You may appear toothers as if you are in your own world. ??? In a depressive episode, you may feel a lack of interest in normal activities. Sometimes you feel sadness or guilt without any clear reason. Your thinking may become slow. You may also lack energy or good concentration, or feel hopeless. Some people have thoughts of harming themselves at this stage. Thoughts can even turn to suicide. You may feel OK between these phases. This does not mean that the illness is gone. People with thisdisorder will often have to treat it all their life. Correct use of medicines and ongoing medical and mental health support can greatly ease symptoms. They can enhance your quality of life. The exact cause of bipolar disorder is unknown. But there is a genetic link that makes a person more likely to get it. Using illegal drugs such as speed (amphetamine) and cocaine raises a person's risk for this illness. Home care Here is what you can do at home: ??? Ongoing care and support can help you manage this disease. Find a healthcare provider and therapist who meet your needs. Seek help right away when you feel like you may be heading into either a manic episode or a depressive state. ??? Take your medicine as prescribed. Get regular blood work to check the levels of medicine in your body. Do this??even if you think you don???t need to do it. ??? Don't change or stop taking your medicine unless your healthcare provider says it is OK to do so. Don't share or use another person's medicines. ??? Tell all your healthcare providers about all the prescriptions, [id number] medicines, and supplements you take.? ?Certain supplements interact with medicines. They may cause dangerous side effects. You can also ask your pharmacist about medicine interactions before starting any new medicine or supplement. ??? Talk with your family and trusted friends about your thoughts and feelings. Ask them to help you notice behavior changes early. You can then get help and have your medicines adjusted, if needed. When you are feeling well, make a management plan for a trusted friend or family member to help you during hard times. For example, you can ask them to hold your credit cards for you if you overspend during a brendon. Or they can get emergency help for you if your depression leads to suicidal thoughts. Ifyour illness is severe, consider giving trusted people access to your healthcare providers. They can then work together to keep you safe. ??? Don't drink alcohol or use illegal drugs. They can bring on an episode and make it worse. ??? If your life is severely affected by this illness, the Americans with Disabilities Act (ADA) may provide help. The ADA protects people with chronic physical and mental health problems. Contact your local ADA office for help if you are having trouble keeping jobs,managing workplace issues, or caring for yourself because of your bipolar disorder. The U.S. Department of Justice has a toll-free ADA information line at 385-126-5809 (voice) or 789-296-6986 (TTY). It can help you find a local office. Or??go to www.Nexavis.gov for more information. ??? Join an in-person or virtual support group for people with mental health problems. ?? Follow-up care Follow up with your healthcare provider or therapist as advised. They can help you find ways to improve your life. ?? Call or text 989 When you call or text 988, you will be connected to trained crisis counselors at the Suicide Prevention Lifeline. An online chat option is also available. Lifeline is free and available 28/03. 989 counselors will work closely with [facility] to get you the care you need. Call or text 988 if you have: ??? Suicidal thoughts, a plan to harm yourself, and the means to do so ??? Serious thoughts of hurting someone else ??? Trouble breathing ??? Confusion ??? Drowsiness ortrouble wakening ??? Fainting or loss of consciousness ??? Rapid heart rate, very low heart rate, or a new irregular heart rate ??? Seizure ??? New chest pain that becomes more severe, lasts longer, or spreads into your shoulder, arm, neck, jaw, or back ?? When to seek medical advice Call your healthcare provider right away if any of these happen: ??? Feeling like your symptoms aregetting worse (depression, agitation, or excessive energy) ??? Not eating or sleeping for more than48 hours ??? Feeling out of control (racing thoughts, paranoid thoughts, hallucinations, or poor concentration) ??? Feeling like you want to harm yourself or another ??? Being unable to care for yourself ?? Last Reviewed Date: 2022 ?? [id number] The [employer]. All rights reserved. This information is not intended as a substitute for professional medical care. Always follow your healthcare professional's instructions. ?? Patient Care team information Care Team Personnel Name: Kiera Dupont MD Position: [facility] SITE SUPERVISOR MD Member Role: Lifetime SITE SUPERVISOR Physician Address: Address: [address] [place] [address], [facility] [address] [facility] [address]- Name: Jose Estes MD Position: [facility] Physician (General Medicine) Member Role: PCP Address: Address: [address] [place] [address]- Name: Hailey Kingsley Position: [facility] ED RN W/OE and Tasks Member Role: Patient Care Provider Name: Lala Bragg Position: [facility] ED TA [facility] Member Role: Hand Tire Trimmer Name: Thierry Baron MD Position: [facility] ED Medicine MD Member Role: Admitting Physician Address: Address: [address] [place] [address]- Name: Mt Zavala MD Position: [facility] Resident Member Role: ED Resident Address: Address: [address] [place] [address]- Care Team Related Persons Name: KASSANDRA WILHELM Address: home [address] [place] [address] Name: JESÚS WILHELM Address: home [address] [place] [address]
--- OUTSIDE RECORDS SUMMARY | 2023-06-04 22:59 | XMS_ITS | Continuity of Care Document ---
Author Name Unknown Organization [facility] [employer] [facility] Address [address] [place] [address], 4t [place] [address]- Care Team Providers Care E Marketing Specialist Name Role Phone Franklyn MONTOYA, Asma Primary Care Physician [id number] Date(s): 05/21/20 - 05/28/20 [facility] [employer] [facility] [address] [place] [address], [address]th [place] [address]- [facility] Attending Physician: Kalli Robertson MD Referring Physician: Soni Boogie CNM Allergies, Adverse Reactions, Alerts Substance Reaction Severity Status NKA Active Medications albuterol CFC free 90 mcg/inh [...] Refills, Soft Stop, 05/21/20 19:39:00 EDT, Tablet, [facility][id number], 174, cm, 05/21/20 19:19:00EDT, Height, 168.7, kg, 06/20/18 11:04:00 EDT, Dry... Start Date: 05/21/20 Status: Ordered hydrochlorothiazide 25 mg oral tablet 25 mg, 1, tablet, By Mouth, Daily, # 30 tablet, Refills 0, Maintenance, 09/12/18 11:15:36 EST Start Date: 09/12/18 Status: Ordered Provera 5 mg oral tablet = 5 mg, By Mouth, Daily, use as directed, # 10 tablet, 3 Refills, Maintenance, 06/22/17 18:41:29 EDT Start Date: 06/22/17 Stop Date: 09/27/18 Status: Ordered Problem List Condition Effective Dates Status Health Status Inform ant Factor V Leiden(Confirmed) Active Metabolic syndrome X(Confirmed) Active Pompholyx(Confirmed) Active Vital Signs Most recent to oldest [Reference Range]: 1 Height 174 cm (05/21/20 7:19 PM) Weight 192.5 kg (05/21/20 7:19 PM) Body Mass Index [18.5-24.99] 63.58 *>HHI* (05/21/20 7:19 PM) Blood Pressure [90-138/55-84 mm Hg] 130/ 82mm Hg (05/21/20 7:19 PM) Blood pressure sites Arm, right (05/21/20 7:19 PM) Weight Obtained Via Standing scale (05/21/20 7:19 PM) Social History Social History Type Response Smoking Status Former smoker, quit more than 30 days ago;Never; Type: Cigarettes; Other: Quit 2011; Tobacco use times per day: Smoked 1 pack per MONTH for approx. 2 years.; Number of years: 2; entered on: 05/21/20 Sex
--- OUTSIDE RECORDS SUMMARY | 2023-06-04 22:59 | XMS_ITS | Continuity of Care Document ---
Author Name Unknown Organization [facility] [email or web address] Address [address] [place] [address], [address]t [place] [address]- Care Team Providers Care Quality Systems Engineer Name Role Phone Franklyn MONTOYA, Asma Primary Care Physician [phone] Encounter [facility] NBR [id number] Date(s): 05/23/20 - 06/22/20 [facility] [employer] [facility] [address] [place] [address], 4th [place] [address]- [facility] Allergies, Adverse Reactions, Alerts Substance Reaction Severity [...] Refills, Soft Stop, 05/21/20 19:39:00 EDT, Tablet, [facility][id number], 174, cm, 05/21/20 19:19:00EDT, Height, 168.7, kg, [...]
--- OUTSIDE RECORDS SUMMARY | 2023-06-04 22:59 | XMS_ITS | Continuity of Care Document ---
Author Name Unknown Organization [facility] [employer] Address [address] [place] [address], [address] [address]- Care Team Providers Care Deputy City Clerk Name Role Phone Franklyn MONTOYA, Asma Primary Care Physician [id number] Date(s): 08/04/21 - 09/03/21 [facility] [employer] [facility] [address] [place] [address], 4th Floor [place], [place] [address] Allergies, Adverse Reactions, Alerts Substance Reaction Severity [...] Refills, Soft Stop, 05/21/20 19:39:00 EDT, Tablet, [facility] #[id number], 174, cm, 05/21/20 19:19:00EDT, Height, 168.7, kg, [...] tablet, 0 Refills, Maintenance, 08/10/21 13:34:00 EST, [facility]/pharmacy #[id number], 174, cm, 05/21/20 19:19:00 EDT, Height [...]
--- OUTSIDE RECORDS SUMMARY | 2023-06-04 22:59 | XMS_ITS | Continuity of Care Document ---
Author Name Unknown Organization [facility] Address [address] [place] [address] [address] [place] [address]- Care Team Providers Care Vault Attendant Name Role Phone Franklyn MONTOYA, [facility] [place] [facility] [place] 06/03/22 - 07/03/[address] [place] [address]- Allergies, Adverse Reactions, Alerts Substance Reaction Severity [...] Refills, Soft Stop, 05/21/20 19:39:00 EDT, Tablet, [facility] #[id number], 174, cm, 05/21/20 19:19:00EDT, Height, 168.7, kg, [...] tablet, 0 Refills, Maintenance, 08/10/21 13:34:00 EST, [facility]/pharmacy #[id number], 174, cm, 05/21/20 19:19:00 [...] on: 05/21/20 Sex Patient Care team information Personnel Name: Franklyn MONTOYA, Jose Address: Address: [address] [place] [address]
--- OUTSIDE RECORDS SUMMARY | 2023-06-04 22:59 | XMS_ITS | Continuity of Care Document ---
Author Name Unknown Organization [facility] Address [address] [place] [address] Dr [address] [place] [address]- Care Team Providers Care Traffic Sign Supervisor Name Role Phone Franklyn MONTOYA, Asma Primary Care Physician [phone] Encounter [facility] Date(s): 10/15/22 - 11/14/22 [facility] [address] [place] [address]- Attending Physician: Chinyere Pinzon Admitting Physician: AdmChinyere rodgers Referring Physician: AdmtrChinyere Allergies, Adverse Reactions, Alerts Substance Reaction Severity [...] Refills, Soft Stop, 05/21/20 19:39:00 EDT, Tablet, [facility] #[id number], 174, cm, 05/21/20 19:19:00EDT, Height, 168.7, kg, [...] tablet, 0 Refills, Maintenance, 08/10/21 13:34:00 EST, [facility]/pharmacy #[id number], 174, cm, 05/21/20 19:19:00 EDT, Height [...] Team Personnel Name: Kiera Dupont MD Position: [facility] MANAGEMENT LEAD MD Member Role: Lifetime MANAGEMENT LEAD Physician Address: Address: [address] [place] [address], [facility] [address] [place] [address]- Name: Franklyn MONTOYA, Jose Position: [facility] Physician (General Medicine) Member Role: PCP Address: Address: [employer] [place] [address]- Care Team Related Persons Name: KASSANDRA WILHELM Address: [address] [address] Name: JESÚS WILHELM Address: [place] [address]
--- OUTSIDE RECORDS SUMMARY | 2023-06-04 22:59 | XMS_ITS | Continuity of Care Document ---
Author Name Unknown Organization [facility] [employer] Address [address] [place] [address], [address]t [place] [address]- Care Team Providers Care Veterinary Dentist Name Role Phone Franklyn MONTOYA, Asma Primary Care Physician [phone] [id number] Date(s): 05/23/20 - 06/22/20 [facility] [employer] [facility] [address] [place] [address], 4th [place] [address]- [facility] Allergies, Adverse Reactions, Alerts Substance Reaction Severity [...] Refills, Soft Stop, 05/21/20 19:39:00 EDT, Tablet, [email or web address][id number], 174, cm, 05/21/20 19:19:00EDT, Height, 168.7, kg, [...]
--- OUTSIDE RECORDS SUMMARY | 2023-06-04 22:59 | XMS_ITS | Continuity of Care Document ---
Author Name Unknown Organization [facility] [employer] Address [address] [place] [address], [address]t [place] [address]- Care Team Providers Care Director Mortgage Name Role Phone Franklyn MONTOYA, [id number] Date(s): 11/12/20 - 12/12/20 [facility] [employer] [facility] [address] [place] [address], 4th [address] [place], [place] [address] Allergies, Adverse Reactions, Alerts Substance Reaction Severity [...] Refills, Soft Stop, 05/21/20 19:39:00 EDT, Tablet, [facility][id number], 174, cm, 05/21/20 19:19:00EDT, Height, 168.7, kg, [...]
--- OUTSIDE RECORDS SUMMARY | 2023-06-04 22:59 | XMS_ITS | Continuity of Care Document ---
Author Name Unknown Organization [facility] [employer] [facility] Address [address] [place] [address], 4t [place] [address]- Care Team Providers Care Echo Vasc Tech Name Role Phone Franklyn MONTOYA, [id number] Date(s): 08/04/21 - 10/23/21 [facility] [employer] [facility] [address] [place] [address], 4th [address] [place], [place] [address] Attending Physician: Not on Staff, Attending MD Referring Physician: Soni Boogie CNM Allergies, Adverse Reactions, Alerts No Known Allergies [...] Refills, Soft Stop, 05/21/20 19:39:00 EDT, Tablet, [facility] #[id number], 174, cm, 05/21/20 19:19:00EDT, Height, 168.7, kg, [...] 0 Refills, Maintenance, 08/10/21 13:34:00 EST, [facility]/pharmacy #[id number], 174, cm, 05/21/20 19:19:00 [...]
--- OUTSIDE RECORDS SUMMARY | 2023-06-04 22:59 | XMS_ITS | Continuity of Care Document ---
Author Name Unknown Organization [facility] Address [address] [place] [address] [address] [place] [address]- Care Team Providers Care Sales Support Technician Name Role Phone Franklyn MONTOYA, [facility] Primary [facility] Physician [phone] Encounter [facility] Date(s): 06/08/22 - 07/08/[address] [place] [address]- Allergies, Adverse Reactions, Alerts Substance Reaction Severity [...] Refills, Soft Stop, 05/21/20 19:39:00 EDT, Tablet, [facility] #[id number], 174, cm, 05/21/20 19:19:00EDT, Height, 168.7, kg, [...] tablet, 0 Refills, Maintenance, 08/10/21 13:34:00 EST, [facility]/pharmacy #[id number], 174, cm, 05/21/20 19:19:00 EDT, [...] Personnel Name: Franklyn MONTOYA, Jose Address: Address: [address] [place] [address]
--- OUTSIDE RECORDS SUMMARY | 2023-06-04 22:59 | XMS_ITS | Continuity of Care Document ---
Author Name Unknown Organization [facility] Address [address] [place] [address] Dr [address] [place] [address]- Care Team Providers Care Repairer Maintenance Building Name Role Phone Franklyn MONTOYA, [facility] Date(s): 06/08/22 - 07/08/[address] [place] [address]- Attending Physician: AdmChinyere rodgers Admitting Physician: AdmtrChinyere Referring Physician: Admtr, ArKelsey Allergies, Adverse Reactions, Alerts Substance Reaction Severity [...] Refills, Soft Stop, 05/21/20 19:39:00 EDT, Tablet, [facility] #[id number], 174, cm, 05/21/20 19:19:00EDT, Height, 168.7, kg, [...] tablet, 0 Refills, Maintenance, 08/10/21 13:34:00 EST, [facility]/pharmacy #[id number], 174, cm, 05/21/20 19:19:00 EDT, Height [...] Personnel Name: Franklyn MONTOYA, Jose Address: Address: [address] [place] [address]
--- OUTSIDE RECORDS SUMMARY | 2023-06-04 22:59 | XMS_ITS | Continuity of Care Document ---
Author Name Unknown Organization [facility] Address [address] [place] [address] [address] [place] [address]- Care Team Providers Care Roll Mechanic Name Role Phone Franklyn MONTOYA, Asma Primary Care Physician [phone] [place] [facility] [place] Date(s): 06/23/22 - 07/23/[address] [place] [address]- Allergies, Adverse Reactions, Alerts Substance Reaction Severity [...] Refills, Soft Stop, 05/21/20 19:39:00 EDT, Tablet, [facility] #[id number], 174, cm, 05/21/20 19:19:00EDT, Height, 168.7, kg, [...] tablet, 0 Refills, Maintenance, 08/10/21 13:34:00 EST, [facility]/pharmacy #[id number], 174, cm, 05/21/20 19:19:00 EDT, [...] Team Personnel Name: Kiera Dupont MD Position: [facility] SECURITY DISPATCHER MD Member Role: Lifetime SECURITY DISPATCHER Physician Address: Address: [address] [facility], [address] [facility] [place] [address]- Name: Jose Estes MD Position: [facility] Physician (General Medicine) Member Role: PCP Address: Address: [address] [place] [address]- Care Team Related Persons Name: KASSANDRA WILHELM Address: [place] [address] Name: JESÚS WILHELM Address: [place] [address]
--- OUTSIDE RECORDS SUMMARY | 2023-06-04 22:59 | XMS_ITS | Continuity of Care Document ---
Author Name Unknown Organization [facility] ter Address [address] [place] [address]- Care Team Providers Care Sheet Roller Operator Name Role Phone Franklyn MONTOYA, Asma Primary Care Physician [phone] [id number]s): 12/14/22 - 12/15/[address] [address]- Discharge Disposition: Transfer to [facility] Facility Attending Physician: Michael Simpson MD Admitting Physician: Michael Simpson MD Referring Physician: Not on Staff, Referring [...] 0 Refills, Maintenance, 08/10/21 13:34:00 EST, [facility]/pharmacy #[id number], 174, cm, 05/21/20 19:19:00 [...] recent to oldest [Reference Range]: 1 2 3 Oxygen Saturation [94-100 %] 96 % (12/15/22 6:48 AM) 97 % (12/14/22 6:32 PM) 97 % (12/14/22 1:01 PM) Pulse Rate [55-90 bpm] 71 bpm (12/15/22 6:48 AM) 100 bpm *H* (12/14/22 6:32 PM) 96 bpm *H* (12/14/22 1:01 PM) Blood Pressure [90-138/55-84 mm Hg] 147/90mm Hg *H* (12/15/22 6:48 AM) 131/69mm Hg (12/14/22 6:32 PM) 178/91mm Hg *H* (12/14/22 1:01 PM) Respiratory Rate [16-30 br/min] 18 br/min (12/15/22 6:48 AM) 18 br/min (12/14/22 6:32 PM) 18 br/min (12/14/22 1:01 PM) Temperature [96.8-100.4 DegF] 98.1 DegF (12/15/22 6:48 AM) 97.9 DegF (12/14/22 6:32 PM) 98.4 DegF (12/14/22 1:01 PM) Mode of Delivery (Oxygen) Room air (12/15/22 6:48 AM) Room air (12/14/22 6:32 PM) Room air (12/14/22 1:01 PM) Blood pressure sites Arm, right (12/15/22 6:48 AM) Temperature Route Oral (12/15/22 6:48 AM) Oral (12/14/22 6:32 PM) Oral (12/14/22 1:01 PM) Social History Social History Type Response Smoking Status Former smoker, quit more than 30 days ago;Never; Type: Cigarettes; Other: Quit 2011; Tobacco use times per day: Smoked 1 pack per MONTH for approx. 2 years.; Number of years: 2; entered on: 05/21/20 Sex Patient Care team information Care Team Personnel Name: Kiera Dupont MD Position: [facility] RESPIRATORY CARE TECHNICIAN MD Member Role: Lifetime RESPIRATORY CARE TECHNICIAN Physician Address: Address: [address] [place] [address], [address] [place] [facility] [place], [place] [address] Name: Franklyn MONTOYA, Jose Position: [facility] Physician (General Medicine) Member Role: PCP Address: Address: [address] [place] [address]- Name: *[facility], ED Attending Position: [facility] ED Attendings Patient Name: Michael Simpson MD Position: [facility] ED Medicine MD Member Role: Admitting Physician Address: Address: [address] [place] [address] Department of Emergency Medicine [place], [place] [address] Name: Jordyn Couch RN Position: [facility] ED RN W/OE and Tasks Member Role: Patient Care Provider Care Team Related Persons Name: KASSANDRA WILHELM Address: [place] [address] Name: JESÚS WILHELM Address: [place] [address]
--- OUTSIDE RECORDS SUMMARY | 2023-06-04 22:59 | XMS_ITS | Continuity of Care Document ---
Author Name Unknown Organization [facility] [email or web address] Address [address] [place] [address], [address] [place] [address]- Care Team Providers Care Ebay Reseller Name Role Phone Franklyn MONTOYA, Jose Primary Care Physician [phone] [id number]): [facility] - 04/09/22 [email or web address] [address] [place] [address], 4[address] [place], [place] [address] Attending Physician: Not on Staff, Attending MD [...] Refills, Soft Stop, 05/21/20 19:39:00 EDT, Tablet, [facility][id number], 174, cm, 05/21/20 19:19:00EDT, Height, 168.7, kg, [...] tablet, 0 Refills, Maintenance, 08/10/21 13:34:00 EST, [facility]/pharmacy #[id number], 174, cm, 05/21/20 19:19:00 [...]
--- OUTSIDE RECORDS SUMMARY | 2023-06-04 22:59 | XMS_ITS | Continuity of Care Document ---
Author Name Unknown Organization [facility] Address [address] [place] [address] [address] [place] [address]- Care Team Providers Care Privacy Officer Name Role Phone Franklyn MONTOYA, [facility] Primary [facility] Physician Encounter [facility] Date(s): 06/08/22 - 06/15/[address] [place] [address]- Attending Physician: Matthew Merritt MD Referring Physician: Maggie Camp Allergies, Adverse Reactions, Alerts Substance Reaction Severity [...] opioid drug. Start Date: 06/08/22 Status: Ordered Augmentin 875 mg-125 mg oral tablet 1 tablet, By Mouth, Every 12 hours, for 10 days, # 20 tablet, 1 Refills, Acute 06/28/22 13:47:00 EDT, 06/08/22 13:47:00 EDT, Tablet, [id number], Partial fill upon patient request if the prescription is for a schedule II opioid drug., 174, cm,... Start Date: 06/08/22 Stop Date: 06/28/22 Status: Ordered fluconazole 150 mg oral tablet 1 tablet = 150 mg, By Mouth, Once, take on tablet now and one tablet in 48hrs, # 2 tablet, 1 Refills, Soft Stop, 05/21/20 19:39:00 EDT, Tablet, [id number], 174, cm, 05/21/20 19:19:00EDT, Height, 168.7, kg, [...] tablet, 0 Refills, Maintenance, 08/10/21 13:34:00 EST, [facility]/pharmacy #[id number], 174, cm, 05/21/20 19:19:00 EDT, Height Start Date: 08/10/21 Stop Date: 08/20/21 Status: Ordered Problem List Condition Confirmation Course Effective Dates Status Health St atus Informant Factor V Leiden Confirmed Active Metabolic syndrome X Confirmed Active Pompholyx Confirmed Active Severe obesity Confirmed Active Vital Signs Most recent to oldest [Reference Range]: 1 Height 174 cm (06/08/22 1:23 PM) Weight 207.3 kg (06/08/22 1:23 PM) Pulse Rate [55-90 bpm] 112 bpm *H* (10/4/22 1:23 PM) Body Mass Index [18.5-24.99 kg/m2] 68.47 kg/m2 *>HHI* (06/08/22 1:23 PM) Blood Pressure [90-138/55-84 mm Hg] 142/ 85mm Hg *H* (06/08/22 1:23 PM) Blood pressure sites Arm, left (06/08/22 1:23 PM) Weight Obtained Via Bed scale (06/08/22 1:23 PM) Social History Social History Type Response Smoking Status Former smoker, quit more than 30 days ago;Never; Type: Cigarettes; Other: Quit 2011; Tobacco use times per day: Smoked 1 pack per MONTH for approx. 2 years.; Number of years: 2; entered on: 05/21/20 Sex Patient Care team information Personnel Name: Franklyn MONTOYA, Jose Address: Address: [address] [place] [id number]
--- OUTSIDE RECORDS SUMMARY | 2023-06-04 22:59 | XMS_ITS | Continuity of Care Document ---
Author Name Unknown Organization [facility] ter Address [address] [place] [address]- Care Team Providers Care Carcass Washer Name Role Phone Franklyn MONTOYA, [facility] Primary [id number] Date[facility]s): 04/12/21 - 04/12/[address] [address]- Discharge Disposition: A-D/C Home Attending Physician: Shaista Henriquez DO Admitting Physician: Shaista Henriquez DO Referring Physician: Not on Staff, Referring MD [...] Refills, Soft Stop, 05/21/20 19:39:00 EDT, Tablet, [facility][id number], 174, cm, 05/21/20 19:19:00EDT, Height, 168.7, kg, [...] Active Metabolic syndrome X(Confirmed) Active Pompholyx(Confirmed) Active Results Radiology Reports * Exam Date Time Procedure Performing Provider Status 04/12/21 5:20 PM Chest 2 Views Frontal and Lat Washington Molina; Auth (Verified) Notes: (Chest 2 Views Frontal and Lat) Reason For Exam: Cough RESULT: Chest 2 Views Frontal and Lat Chest 2 Views Frontal and Lat Hx of Present Illness: ears, nose, throat, UTI sx for 1 week, saw urgent care while at [facility] Tuesday, + strep, on abx since than sx not improving COMPARISON: 12/28/2016 FINDINGS: LINES AND TUBES: None. LUNGS AND PLEURA: Clear lungs. Normal pulmonary vascularity. No pleural effusion. No pneumothorax. HEART, MEDIASTINUM AND GEOVANNA: Heart is normal in size. Normal upper mediastinal and hilar contour. BONES AND SOFT TISSUES: No acute abnormality. IMPRESSION: No acute abnormality. WSN: [id number] Ordering Physician: Eduarda Marshall Dictated By: Patel Joshi DO Dictated Date/Time: 04/12/21 5:48 pm Reviewed By: Patel Joshi DO Signed By: Patel Joshi DO Signed Date/Time: 04/12/21 5:48 pm Transcribed By: SRINATH Transcribed Date/Time: 04/12/21 5:47 pm Vital Signs Most recent to oldest [Reference Range]: 1 2 3 Oxygen Saturation [94-100 %] 100 % (04/12/21 10:48 PM) 99 % (04/12/21 7:36 PM) 98 % (04/12/21 3:26 PM) Pulse Rate [55-90 bpm] 86 bpm (04/12/21 10:48 PM) 88 bpm (04/12/21 7:36 PM) 91 bpm *H* (04/12/21 3:26 PM) Blood Pressure [90-138/55-84 mm Hg] 120/78mm Hg (04/12/21 10:48 PM) 125/68mm Hg (04/12/21 7:36 PM) 151/93mm Hg *H* (04/12/21 3:26 PM) Respiratory Rate [16-30 br/min] 18 br/min (04/12/21 10:48 PM) 18 br/min (04/12/21 7:36 PM) 20 br/min (04/12/21 3:26 PM) Temperature [96.8-100.4 DegF] 98.3 DegF (04/12/21 7:36 PM) 98.6 DegF (04/12/21 3:26 PM) Mode of Delivery (Oxygen) Room air (04/12/21 10:48 PM) Room air (04/12/21 7:36 PM) Room air (04/12/21 3:26 PM) Blood pressure sites Arm, left (04/12/21 10:48 PM) Arm, left (04/12/21 7:36 PM) Arm, right (04/12/21 3:26 PM) Temperature Route Oral (04/12/21 7:36 PM) Oral (04/12/21 3:26 PM) Social History Social History Type Response Smoking Status Former smoker, quit more than 30 days ago;Never; Type: Cigarettes; Other: Quit 2011; Tobacco use times per day: Smoked 1 pack per MONTH for approx. 2 years.; Number of years: 2; entered on: 05/21/20 Sex
--- OUTSIDE RECORDS SUMMARY | 2023-06-04 22:59 | XMS_ITS | Continuity of Care Document ---
Author Name Unknown Organization [facility] [employer] [facility] Address [address] [place] [address], [address] [address]- Care Team Providers Care Linen Room Supervisor Name Role Phone Franklyn MONTOYA, Asma Primary Care Physician [phone] [id number] Date(s): 05/21/20 - 06/20/20 [facility] [address], [address] [place] [address]- [facility] Attending Physician: Admtr, [id number] Admitting Physician: Admtr, Mick8 Referring Physician: Admtr, Ar8 Allergies, Adverse Reactions, Alerts Substance Reaction Severity [...] Refills, Soft Stop, 05/21/20 19:39:00 EDT, Tablet, [facility][id number], 174, cm, 05/21/20 19:19:00EDT, Height, 168.7, kg, [...]
--- OUTSIDE RECORDS SUMMARY | 2023-06-04 22:59 | XMS_ITS | Continuity of Care Document ---
Author Name Unknown Organization [facility] Address [address] [place] [address] [address] [place] [address]- Care Team Providers Care Medical Research Scientist Name Role Phone Franklyn MONTOYA, Jose Primary Care Physician Encounter [facility] Date(s): 06/11/22 - 06/18/[address] [place] [address]- Attending Physician: Matthew Merritt MD Referring Physician: Franklyn MONTOYA, Jose Allergies, Adverse Reactions, Alerts Substance Reaction Severity [...] Refills, Soft Stop, 05/21/20 19:39:00 EDT, Tablet, [facility][id number], 174, cm, 05/21/20 19:19:00EDT, Height, 168.7, kg, [...] tablet, 0 Refills, Maintenance, 08/10/21 13:34:00 EST, [facility]/pharmacy #[id number], 174, cm, 05/21/20 19:19:00 EDT, Height Start Date: 08/10/21 Stop Date: 08/20/21 Status: Ordered Problem List Condition Confirmation Course Effective Dates Status Health St atus Informant Factor V Leiden Confirmed Active Metabolic syndrome X Confirmed Active Pompholyx Confirmed Active Severe obesity Confirmed Active Vital Signs Most recent to oldest [Reference Range]: 1 Height 174 cm (06/11/22 2:36 PM) Weight 208.7 kg (06/11/22 2:36 PM) Pulse Rate [55-90 bpm] 98 bpm *H* (10/7/22 2:36 PM) Body Mass Index [18.5-24.99 kg/m2] 68.93 kg/m2 *>HHI* (06/11/22 2:36 PM) Blood Pressure [90-138/55-84 mm Hg] 173/ 89mm Hg *H* (06/11/22 2:36 PM) Respiratory Rate [16-30 br/min] 16 br/mi n (06/11/22 2:36 PM) Temperature [96.8-100.4 DegF] 97.7 DegF (06/11/22 2:36 PM) Blood pressure sites Arm, left (06/11/22 2:36 PM) Temperature Route Temporal (06/11/22 2:36 PM) Weight Obtained Via Standing scale (06/11/22 2:36 PM) Social History Social History Type Response Smoking Status Former smoker, quit more than 30 days ago;Never; Type: Cigarettes; Other: Quit 2011; Tobacco use times per day: Smoked 1 pack per MONTH for approx. 2 years.; Number of years: 2; entered on: 05/21/20 Sex Patient Care team information Personnel Name: Franklyn MONTOYA, Jovia Address: Address: [facility] [place], [place] [address]
--- OUTSIDE RECORDS SUMMARY | 2023-06-04 22:59 | XMS_ITS | Continuity of Care Document ---
Author Name Unknown Organization [facility] Address [address] [place] [address] [address] [place] [address]- Care Team Providers Care Learning And Development Director Name Role Phone Franklyn MONTOYA, Asma Primary Care Physician [place] [place](s): 10/18/22 - 11/17/22 [facility] [address] [place] [address]- Allergies, Adverse Reactions, Alerts Substance Reaction Severity [...] Refills, Soft Stop, 05/21/20 19:39:00 EDT, Tablet, [facility][id number], 174, cm, 05/21/20 19:19:00EDT, Height, 168.7, kg, [...] tablet, 0 Refills, Maintenance, 08/10/21 13:34:00 EST, [facility]/pharmacy #[id number], 174, cm, 05/21/20 [...] Team Personnel Name: Kiera Dupont MD Position[facility] ECONOMIC ANALYSIS DIRECTOR MD Member Role: Lifetime ECONOMIC ANALYSIS DIRECTOR Physician Address: Address: [address] [facility], [address] [place] [address]- Name: Franklyn MONTOYA, Jose [facility] Physician (General Medicine) Member Role: PCP Address: Address: [address] [place] [address]- Care Team Related Persons Name: KASSANDRA WILHELM Address: [address] [place] [address] Name: JESÚS WILHELM Address: [address] [place] [address]
[2023-06-04 23:10] VITALS: BMI 39.1
[2023-06-05 00:49] VITALS: BP 126/70; PULSE 105; RESP 18; TEMP 35.9; O2SAT 94; BMI 60.8
--- NOTE | 2023-06-05 02:29 | PC.ADMIT ---
Pt is a 33 years old female admitted from [facility] after being evaluated on 06/04/23 by [facility] eulogio for diagnosis of Bipolar D/O, current or most recent episode Manic. pt arrived to the unit via stretcher, signed legal status: CV, 15mins safety checks. VSS, pt is alert and oriented x2, self and place, pt appears confused and disoriented upon 1:1 approach. pt has a labile mood, slow stunted speech, and a congruent affect. pt has poor insight into illness and appears to be responding to internal stimuli. pt persevering about calling her sister, and mum. pt also reports feeling hungry because she hasn't eaten anything all day . pt was given chicken sandwich with diet gingerale. pt refused to sign releases of information forms and stated i want to complete this with my dad who is my HCP . Pt also refused to complete most of the admission stuff with this entry writer stating i don't think I want to do this now, I am very tired and have not slept for days Past medical HX includes Asthma, NIDDM, HTN and factor V Leiden. Provider day habilitation specialist notified of admission and orders obtained. pt denies pain, SI/HI/AH/VH. pt reports feels safe on unit.
[2023-06-05 02:58] LABS: Glucose, Whole Blood 103 mg/dL (60-115)
[2023-06-05 08:45] VITALS: BP 148/82; PULSE 114; RESP 18; TEMP 36.6; O2SAT 98
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
--- NOTE | 2023-06-05 10:15 | PHA.MEDREC ---
Addendum entered by Anai Reid RPh 06/05/23 12:00: Patient mentioned her provider told her to stop atorvastatin if she was ever to be , patient does feel she might be . Let the provider know this. I reached out and expressed my concerns with the provider that the patient is no longer on these medications and that they may no longer be appropriate, however provider insisted the patient take these medications and that they be verified. Original Note: Pharmacy Consult ? Medication Reconciliation Pharmacy has completed the medication reconciliation. RN had done the med rec overnight. There were several discrepancies seen. Went to speak to patient and confirmed with her. Confirmed that patient has stopped taking, trulicity, ketoconazole, medroxyprogesterone, metformin, valproic acid and miconazole, all of which were put into the med rec by the RN. I discontinued them off the [facility] rec, however, provider did continue them, made provider aware.
[2023-06-05] MEDS: Divalproex Sodium 250 MG TABLET.DR 750 MG PO ×2 (10:27→19:31)
[2023-06-05] MEDS: OLANZapine ODT 10 MG TAB.RAPDIS TRANSLINGU ×2 (10:27→19:31)
[2023-06-05 10:38] LABS: Glucose, Whole Blood 119 mg/dL (60-115)
--- NOTE | 2023-06-05 11:24 | P.CONHOSP_ITS ---
History of Present Illness Data of Consult Service Date: 06/05/23 Primary Care Provider: Jeb Flanagan APRN [facility] Reason for consult: Admission H&P Pt is a 32-year-old female with a PMH significant for?diet controlled diabetes type 2, HTN, HLD, factor 5 deficiency, seasonal asthma, obesity class 3, and bipolar disorder who is admitted to M5 psychiatry unit for paranoia, disorientation, and confusion. Patient's father has requested an evaluation secondary to changes in patient's behavior he attributes to medication changes. Patient has been having increased paranoia and feeling unsafe at home. Medical consult for admission H&P. Pt with labile mood, slow and stunted speech, but answering appropriately. AOx4. Pt states she has been experienced increased paranoia fearing her family has access to guns, has been feeling unsafe at home. Patient has no acute medical complaints at this time. Denies current chest pain/pressure, palpitations. No shortness of breath. No fever, chills, nausea, vomiting, abdominal pain. Review of Systems Review of Systems: Patient has no acute medical complaints at this time [facility] Medical History Uncontrolled type 2 diabetes mellitus with hyperglycemia Leg edema Obesity, morbid Asthma Factor 5 Leiden mutation, heterozygous Seasonal asthma Hypertension, essential Family History Father HTN (hypertension) Diabetes mellitus Mother Afib Maternal Grandfather No problems noted. Maternal Grandmother No problems noted. Paternal Grandmother Breast cancer Paternal Grandfather No problems noted. Sister No problems noted. Surgical History History of ovarian cyst History of wisdom tooth extraction Social History Household Members: Family Housing: House Do you presently have visiting nurse or other home services: No Alcohol intake: never Patient Tobacco Use Status: Former Tobacco user Years Smoked: 3 yrs e-Cigarette/Vaping Use: Never Used Second Hand Smoke Exposure: No Advance Directives: No Advance Directives Information Provided: No service: No Current occupational status: employed Sexual orientation: Don't Know Cognitive needs: No Hearing needs: No Vision needs: Yes Meds Allergies Allergy/AdvReac Type Severity Reaction Status Date / Time kiwi [KIWI] Allergy Mild HIVES Verified 11/24/22 14:59 mold [MOLD EXTRACTS*] Allergy Mild HIVES Verified 11/24/22 14:59 Active Medications: Current Medications Acetaminophen (Acetaminophen 325 Mg Tablet) 650 mg PO Q6H PRN PRN Reason: Headache/Pain Mild Scale (1-3) Al Hydroxide/Mg Hydroxide (Magnesium Hydrox/Alum Hydrox 30 Ml Oral.Susp) 30 ml PO Q6H PRN PRN Reason: Heartburn/Nausea Albuterol Sulfate (Albuterol Sulfate 90 Mcg 8 Gm Inhaler) 2 puff INHALE RQID PRN PRN Reason: shortness of breath or wheezing Atenolol (Atenolol 50 Mg Tablet) 50 mg PO DAILY [facility]; Protocol Atorvastatin Calcium (Atorvastatin Calcium 20 Mg Tablet) 20 mg PO BEDTIME [facility] Divalproex Sodium (Divalproex Sodium 250 Mg Tablet.Dr) 750 mg PO BID [facility] Last Admin: 06/05/23 10:27 Dose: 750 mg Haloperidol (Haloperidol 5 Mg Tablet) 5 mg PO TID PRN PRN Reason: agitation Hydroxyzine HCl (Hydroxyzine Hcl 25 Mg Tablet) 25 mg PO Q6H PRN PRN Reason: Anxiety Lorazepam (Lorazepam 1 Mg Tablet) 1 mg PO Q6H PRN PRN Reason: agitation Magnesium Hydroxide (Milk Of Magnesia 30 Ml Oral.Susp) 30 ml PO DAILY PRN PRN Reason: Constipation Medroxyprogesterone Acetate (Medroxyprogesterone Acetate 5 Mg Tablet) 10 mg PO DAILY [facility] Metformin HCl (Metformin Hcl 500 Mg Tablet) 500 mg PO DAILY [facility] Non-Formulary Medication (Dulaglutide [Trulicity]) 1.5 mg SUBCUT QWEEK [facility] Non-Formulary Medication (Ketoconazole) 1 appl TOPICAL DAILY [facility] Olanzapine (Olanzapine Odt 10 Mg Tab.Rapdis) 10 mg TRANSLINGU BID [facility] Last Admin: 06/05/23 10:27 Dose: 10 mg Trazodone HCl (Trazodone Hcl 100 Mg Tablet) 100 mg PO BEDTIME PRN PRN Reason: Insomnia Home Medications Medication Instructions Recorded Confirmed Last Taken Type diphenhydramine HCl 50 mg tablet 50 mg PO BID PRN Anxiety 02/24/23 06/05/23 Unknown History lorazepam 2 mg tablet 1 mg PO BID 02/24/23 06/05/23 Unknown History melatonin 3 mg capsule 6 mg PO BEDTIME PRN Sleep 02/24/23 06/05/23 Unknown History olanzapine 10 mg tablet 10 mg PO DAILY PRN agitation 02/24/23 06/05/23 Unknown History albuterol sulfate 90 mcg/actuation 2 inh inhalation QID PRN shortness 06/05/23 06/05/23 Unknown History aerosol inhaler (ProAir HFA) of breath or wheezing divalproex 250 mg tablet,delayed 250 mg PO BID 06/05/23 06/05/23 Unknown History release divalproex 500 mg tablet,delayed 500 mg PO BID 06/05/23 06/05/23 Unknown History release lurasidone 80 mg tablet 80 mg PO QAM 06/05/23 06/05/23 Unknown History Physical Exam Vital Signs and Narrative: Vital Signs: Last Vital Signs Temp 96.7 F L 06/05/23 00:49 Pulse 105 H 06/05/23 00:49 Resp 18 06/05/23 00:49 BP 126/70 06/05/23 00:49 Pulse Ox 94 06/05/23 00:49 O2 Del Method Room Air 06/05/23 00:49 BMI result Body Mass Index 60.8 Constitutional: Somnolent but alert, emotionally labile, in no acute distress. Mental Status: Oriented to person, place and time. Eyes: Pupils are equal, round, and reactive to light. Ear, Nose, and Throat: Oropharynx clear, mucous membranes moist. Ears and nose without deformities. Trachea midline. Respiratory: Clear to auscultation bilaterally. No wheezing, rales, or rhonchi. Cardiovascular: S1, S2 regular. No murmurs, rubs, or gallops. Gastrointestinal: Abdomen soft, non-tender, non-distended, obese. Normal bowel sounds. Neurologic: Cranial nerves II-XII are grossly intact bilaterally. No focal neurological deficits. Moves all extremities spontaneously. Skin: No rashes or lesions noted. Musculoskeletal: No cyanosis or clubbing. Extremities: Non-pitting lower leg edema bilaterally. Psychiatric: Labile mood, slow and stunted speech. Results Labs Labs: Laboratory Results - last 24 hr 06/05/23 06/05/23 02:52 10:33 POC Glucose 103 119 H Assessment and Plan (1) Medical clearance for psychiatric admission: Status: Acute Plan Pt is a 32-year-old female with a PMH significant for?diet controlled diabetes type 2, HTN, HLD, factor 5 deficiency, seasonal asthma, obesity class 3, and bipolar disorder who is admitted to [facility] psychiatry unit for paranoia, disorientation, and confusion. Patient's father has requested an evaluation secondary to changes in patient's behavior he attributes to medication changes. Patient has been having increased paranoia and feeling unsafe at home. Medical consult for admission H&P. Mood disorder Plan as per Psychiatry HTN Well-controlled on current therapies Continue atenolol HLD Continue statin Seasonal allergies Continue home inhalers p.r.n. Diet-controlled diabetes type 2 Followed by endocrinology outpatient Diabetic diet Factor 5 deficiency Not on any current medication Followed by Hematology outpatient Obesity class 3 Patient reports she used to weigh over 500 lb, has lost 100 lb by walking in the past year Low-fat diet, encourage ambulation as much as possible Thank you for allowing us to participate in the care of this patient. Signing off at this time. Please let us know if there are any acute complaints or questions. Time Spent With Patient Time: Total time managing care of this patient today ____ minutes.
[2023-06-05] MEDS: atenoloL 50 MG TABLET PO (12:48)
[2023-06-05 13:47] LABS: Basophils Absolute Auto 0.1 X10*3/uL (0.0-0.2); Basophils Percent Auto 0.6 % (0-2); Eosinophils Absolute Auto 0.3 X10*3/uL (0.0-0.4); Eosinophils Percent Auto 2.3 % (0-4); Hematocrit 35.7 % (37.0-47.0); Hemoglobin 11.7 g/dl (12.0-16.0); Imm Gran Abs Auto 0.07 X10*3/uL (0.00-0.03); Imm Gran Pct Auto 0.6 % (0.0-0.4); Lymphocytes Absolute Auto 2.9 X10*3/uL (1.2-4.9); Lymphocytes Percent Auto 26.4 % (20-40); MANUAL DIFF FLAG SCAN; Mean Corpuscular HGB Conc 32.8 g/dl (31.0-35.0); Mean Corpuscular Volume 82.3 fL (80.0-98.0); Monocytes Absolute Auto 1.1 X10*3/uL (0.1-1.2); Monocytes Percent Auto 9.7 % (2-11); Neutrophils Absolute Auto 6.6 x10*3/uL (2.0-8.3); Neutrophils Percent Auto 60.4 % (45-73); PLT CLUMP 1; Red Blood Count 4.34 X10*6/uL (4.20-5.50); Red Cell Distribution Width 14.1 % (11.0-16.0); SCAN SMEAR FLAG 1
[2023-06-05 14:08] LABS: Estimated Average Glucose 126 mg/dL
[2023-06-05 14:21] LABS: White Blood Count 10.9 X10*3/uL (4.8-10.8)
[2023-06-05 14:23] LABS: Alanine Aminotransferase 13 U/L (0-31); Albumin Level 3.8 g/dL (3.5-5.0); Alkaline Phosphatase 67 U/L (39-117); Anion Gap 19 (12-20); Aspartate Amino Transferase 13 U/L (5-31); Bilirubin Total 0.4 mg/dL (0.0-1.0); Blood Urea Nitrogen 13 mg/dL (9-16); Calcium 9.5 mg/dL (8.4-10.2); Carbon Dioxide 20 mmol/L (22-29); Chloride 107 mmol/L (96-108); Cholesterol 136 mg/dL (<200); Creatinine Clr Calc Pharmacy 226.4; Estimated Glomerular Filt Rate > 60; Glucose Fasting 137 mg/dL (60-99); HDL Cholesterol 42 mg/dL (>40); LDL Cholesterol Calculated 71 mg/dL (<100); Potassium 4.1 mmol/L (3.3-5.1); Sodium 142 mmol/L (135-145); Total Protein 6.9 g/dL (6.5-8.0); Triglycerides 116 mg/dL (<150)
[2023-06-05 14:24] LABS: SLIDE REVIEW VERIFIED
[2023-06-05 14:47] LABS: Folate 7.4 ng/mL (> or = 4.0); Vitamin B12 353 pg/mL (200-900)
[2023-06-05 15:00] LABS: Thyroid Stimulating Hormone 0.97 uIU/mL (0.32-4.0)
[2023-06-05] MEDS: LORazepam 1 MG TABLET PO (17:46)
[2023-06-05] MEDS: Atorvastatin Calcium 20 MG TABLET PO (19:31)
[2023-06-05 19:32] VITALS: BP 127/81; PULSE 86; RESP 16; TEMP 37.1
--- NOTE | 2023-06-05 23:22 | PC.NURSE ---
Late entry; Pt showed this keno writer / runner a rash under abdominal folds and under breast similar to a fungal rash. Per [facility] notes, pt was being treated for a fungal rash in the same areas. Spoke w/ Elizabeth Rodas via tiger text; TO Miconazole powder BID to abdominal folds and under breasts.
[2023-06-06 00:30] VITALS: BP 141/81; PULSE 88; RESP 18; TEMP 36.6; O2SAT 98
--- NOTE | 2023-06-06 01:02 | PC.NURSE ---
[facility] [place] that patient had been observed on kneeling on floor on side of her bed, urinating on self. Patient reports not hitting her head. VSS. Patient offering nonsensical speech and bizarre statements following reasoning behind being on floor. Patient was assisted off of the floor, toileted and assisted with ADL's. Provider, hospitalist and field supervisor notified.
[2023-06-06] MEDS: LORazepam 1 MG TABLET PO ×2 (04:30→21:16)
[2023-06-06] MEDS: HaloperidoL 5 MG TABLET PO (04:30)
[2023-06-06 07:35] VITALS: BP 120/73; PULSE 109; RESP 16; TEMP 35.7; O2SAT 99
[2023-06-06] MEDS: OLANZapine ODT 10 MG TAB.RAPDIS TRANSLINGU (08:30)
[2023-06-06] MEDS: atenoloL 50 MG TABLET PO (08:30)
[2023-06-06] MEDS: Divalproex Sodium 250 MG TABLET.DR 750 MG PO (08:31)
[2023-06-06 08:51] LABS: Glucose, Whole Blood 107 mg/dL (60-115)
[2023-06-06] MEDS: Acetaminophen 325 MG TABLET 650 MG PO (11:13)
--- NOTE | 2023-06-06 11:20 | PC.NURSE ---
Pt declined flu shot after initialling expressing that she wanted it.
[2023-06-06] MEDS: Albuterol Sulfate 90 MCG 8 GM INHALER 2 PUFF INHALE ×2 (12:25→19:18)
[2023-06-06 18:00] VITALS: BP 148/82; PULSE 105; TEMP 36.7; O2SAT 98
--- NOTE | 2023-06-06 18:25 | HO.PSYCHPN ---
Subjective Subjective Date of Service: 06/06/23 Reason For Visit: Bipolar d/o, current or most recent epi. manic Subjective Notes: Conditional Voluntary Healthcare Proxy: No Guardianship: No Medical Problems Affecting Mental Status: No Interim History: Continues with some lability, confusion, paranoia due to out pt medication decrease prior to admission. Visited by mother who reports 100lb wt gain with Abilify. Pt with some urinary incontinence, possible sx of bacterial vaginosis, yeast infection sx. Will allow cultures. Mother reports she was fine a week and a half ago, but the medicine change was the cause . Pt signed a three day notice, she tells me at her mother's suggestion. Reviewed regime with father as well. He will be in 06/[address] Will discuss retraction when he comes in. Will re-start Latuda on 06/07 and attempt to return pt to her regime which she had achieved mood stability. Medication Compliance: Yes Side effects from medications: No Attending Groups: Intermittent Review of Systems Acute medical concerns: No Medical Review of Systems: unchanged Mental Status Exam Mental Status Exam Patient Appearance: Fatigued Patient Orientation: Person, Place, Time and Situation Level of Consciousness: Sedated and Alert Patient Behavior: Talkative and Good Eye Contact Mood Description: Labile Affect Description: Labile Patient Cognition Impaired: No Ability to Follow Directions: Fair Speech Pattern: Spontaneous Speech Memory Description: Episodic Impaired Hallucinations: None Delusions: Paranoid Ideation Thought Process: Racing, Distracted and Rumination Thought Content: positive for Racing, positive for Loose Associations, positive for Tangential and positive for Suicidal Ideation (denies) Depressive Symptoms: Increased Irritability, Hopelessness, Unhappiness, Increased Fatigue and Difficulty Concentrating Judgement: Fair Diagnostics Vital Signs (24Hr): Vital Signs - 24 hr 06/05/23 19:32 06/06/23 00:30 06/06/23 07:35 Temperature 98.7 F 97.8 F 96.3 F L Pulse Rate 86 88 109 H Respiratory Rate 16 18 16 Blood Pressure 127/81 141/81 H 120/73 Pulse Oximetry 98 99 Oxygen Delivery Method Room Air Room Air BMI result Body Mass Index 60.8 Labs 06/05/23 13:29 06/05/23 13:29 Labs: Laboratory Results - last 48 hr 06/05/23 06/05/23 06/05/23 02:52 10:33 13:29 WBC 10.9 H RBC 4.34 Hgb 11.7 L D Hct 35.7 L MCV 82.3 MCH 27.0 MCHC 32.8 RDW 14.1 Plt Count TNP MPV Not Reportable Immature Gran % (Auto) 0.6 H Neut % (Auto) 60.4 Lymph % (Auto) 26.4 [place] % (Auto) 9.7 Eos % (Auto) 2.3 Baso % (Auto) 0.6 Lymph # (Auto) 2.9 [place] # (Auto) 1.1 Eos # (Auto) 0.3 Baso # (Auto) 0.1 Abs Immat Gran (auto) 0.07 H Absolute Neuts (auto) 6.6 Absolute Nucleated RBC 0.000 Nucleated RBC % (auto) 0.0 Smear Tech's Comments VERIFIED Sodium 142 Potassium 4.1 D Chloride 107 Carbon Dioxide 20 L Anion Gap 19 BUN 13 Creatinine 0.65 Estim Creat Clear Calc 226.4 Estimated GFR > 60 POC Glucose 103 119 H Fasting Glucose 137 H Estimat Average Glucose 126 Hemoglobin A1c % 6.0 Calcium 9.5 Total Bilirubin 0.4 AST 13 ALT 13 Alkaline Phosphatase 67 Total Protein 6.9 Albumin 3.8 Triglycerides 116 Cholesterol 136 LDL Cholesterol, Calc 71 HDL Cholesterol 42 Vitamin B12 353 Folate 7.4 TSH 0.97 06/06/23 08:45 WBC RBC Hgb Hct MCV MCH MCHC RDW Plt Count MPV Immature Gran % (Auto) Neut % (Auto) Lymph % (Auto) [place] % (Auto) Eos % (Auto) Baso % (Auto) Lymph # (Auto) [place] # (Auto) Eos # (Auto) Baso # (Auto) Abs Immat Gran (auto) Absolute Neuts (auto) Absolute Nucleated RBC Nucleated RBC % (auto) Smear Tech's Comments Sodium Potassium Chloride Carbon Dioxide Anion Gap BUN Creatinine Estim Creat Clear Calc Estimated GFR POC Glucose 107 Fasting Glucose Estimat Average Glucose Hemoglobin A1c % Calcium Total Bilirubin AST ALT Alkaline Phosphatase Total Protein Albumin Triglycerides Cholesterol LDL Cholesterol, Calc HDL Cholesterol Vitamin B12 Folate TSH Medications Medications Current Medications Acetaminophen (Acetaminophen 325 Mg Tablet) 650 mg PO Q6H PRN PRN Reason: Headache/Pain Mild Scale (1-3) Last Admin: 06/06/23 11:13 Dose: 650 mg Al Hydroxide/Mg Hydroxide (Magnesium Hydrox/Alum Hydrox 30 Ml Oral.Susp) 30 ml PO Q6H PRN PRN Reason: Heartburn/Nausea Albuterol Sulfate (Albuterol Sulfate 90 Mcg 8 Gm Inhaler) 2 puff INHALE RQID PRN PRN Reason: shortness of breath or wheezing Last Admin: 06/06/23 12:25 Dose: 2 puff Atenolol (Atenolol 50 Mg Tablet) 50 mg PO DAILY [facility]; Protocol Last Admin: 06/06/23 08:30 Dose: 50 mg Atorvastatin Calcium (Atorvastatin Calcium 20 Mg Tablet) 20 mg PO BEDTIME [facility] Last Admin: 06/05/23 19:31 Dose: 20 mg Divalproex Sodium (Divalproex Sodium 250 Mg Tablet.Dr) 750 mg PO BID [facility] Last Admin: 06/06/23 08:31 Dose: 750 mg Haloperidol (Haloperidol 5 Mg Tablet) 5 mg PO TID PRN PRN Reason: agitation Last Admin: 06/06/23 04:30 Dose: 5 mg Hydroxyzine HCl (Hydroxyzine Hcl 25 Mg Tablet) 25 mg PO Q6H PRN PRN Reason: Anxiety Lorazepam (Lorazepam 1 Mg Tablet) 1 mg PO Q6H PRN PRN Reason: agitation Last Admin: 06/06/23 04:30 Dose: 1 mg Lurasidone HCl (Lurasidone Hcl 80 Mg Tablet) 80 mg PO DAILY [facility] Magnesium Hydroxide (Milk Of Magnesia 30 Ml Oral.Susp) 30 ml PO DAILY PRN PRN Reason: Constipation Miconazole Nitrate (Miconazole Nitrate 2% Powder 85 Gm Bottle) 1 appl TOPICAL BID [facility]; Protocol Last Admin: 06/06/23 10:33 Dose: Not Given Olanzapine (Olanzapine Odt 10 Mg Tab.Rapdis) 10 mg TRANSLINGU BID [facility] Last Admin: 06/06/23 08:30 Dose: 10 mg Trazodone HCl (Trazodone Hcl 100 Mg Tablet) 100 mg PO BEDTIME PRN PRN Reason: Insomnia Allergies Allergies Allergy/AdvReac Type Severity Reaction Status Date / Time kiwi [KIWI] Allergy Mild HIVES Verified 11/24/22 14:59 mold [MOLD EXTRACTS*] Allergy Mild HIVES Verified 11/24/22 14:59 Assessment & Plan Assessment & Plan (1) Bipolar disorder with psychotic features: Status: Acute Code(s): F31.9 - Bipolar disorder, unspecified Plan Mrs. Cantu is a 32 year-old woman with hx of Bipolar type 1 Disorder who was brought to [facility] due to increase paranoia towards family, thinking that father is trying to kill her. She is also somatically preoccupied. These are usually content of her delusions along with some sexualized behaviors and erotomatic delusions. It was verified with pharmacy that pt has not filled medications since March. Pt also confirms she was not taking medications. We discussed risks, benefits and alternative treatment options, pt agreed to restart depakote 750mg po BID, olanzapine 10mg po BID, prn haldol 5mg po q6h prn agitation with ativan if needed. PLAN 1. Admit to , CV, 15 minutes checks for safety 2. Restart depakote 750mg po BID, olanzapine 10mg po BID, haldol prn 3. obtain collateral information 4. Aftercare planning. 06/06/23: Latuda 80 mg to begin 06/07. Patient educated on: medication risk/benefits and therapeutic strategies Guardian/Caregiver educated on: medication risk/benefits and therapeutic strategies Informed Consent: understands and further education needed Reason for continued inpatient stay Substantial Risk for: rapid decompensation Time Spent With Patient Time: Total time managing care of this patient today ____ minutes.
[2023-06-06 19:57] LABS: Appearance Urine Clear; Color Urine Yellow; Glucose Urine UA Negative (Negative); Leukocyte Esterase Urine Negative (Negative); Nitrite Urine Positive (Negative); PH 6.5 (5.0-9.0); UMIC TRIGGER UACC YES; UPreg QC Valid YES; Urine Blood Negative (Negative); Urine Ketones Negative (Negative); Urine Pregnancy NEGATIVE (NEGATIVE); Urine Protein Negative (Neg-Trace)
[2023-06-06 20:02] LABS: Bacteria Urine 4+ (None Seen); Hyaline Casts Urine 0-2 /LPF (0-2); RBC Urine 0-2 /HPF (0-2); Squamous Epithelial Cell Urine 0-2 /HPF (0-2); UACC Culture Trigger YES; WBC Urine 0-5 /HPF (0-5)
[2023-06-06] MEDS: diphenhydrAMINE HCL 25 MG CAPSULE PO (20:50)
[2023-06-06] MEDS: Miconazole Nitrate 2% Powder 85 GM Bottle 1 APPL TOPICAL (20:52)
[2023-06-06 21:59] LABS: Influenza A PCR NEGATIVE (Negative); Influenza B PCR NEGATIVE (Negative); Resp Syncy Virus RNA Qual PCR NEGATIVE (Negative); SARS COV2 PCR INHOUSE NEGATIVE (Negative)
[2023-06-07] MEDS: Albuterol Sulfate 90 MCG 8 GM INHALER 2 PUFF INHALE ×2 (00:32→09:11)
[2023-06-07 09:10] VITALS: BP 128/87; PULSE 106; RESP 20; TEMP 36.4; O2SAT 92
[2023-06-07] MEDS: Lurasidone HCl 80 MG TABLET PO (09:10)
[2023-06-07 09:21] LABS: Glucose, Whole Blood 126 mg/dL (60-115)
--- NOTE | 2023-06-07 10:10 | P.PNPSI_ITS ---
Subjective Subjective Date of Service: 06/07/23 Reason For Visit: Bipolar d/o, current or most recent epi. manic Subjective Notes: Conditional Voluntary and 3 Day Healthcare Proxy: No Guardianship: No Medical Problems Affecting Mental Status: No Interim History: Pt appears somewhat calmer and organized. Some medication refusal. She met with team and her father. Discussed attempts to avoid court and what she could do to avoid this. Cultures are pending for urine, vaginal infection Ankle edema, foot edema remain. Pt declines trial of compression stockings. Social, interactive later in the day with com writer. I am going to do what I need to do to get better, don't worry, OK? Family is supportive, they are coming every day to see me . Medication Compliance: Intermittent Side effects from medications: No Attending Groups: Intermittent Review of Systems Acute medical concerns: No Medical Review of Systems: unchanged Mental Status Exam Mental Status Exam Patient Appearance: Fatigued Patient Orientation: Person, Place, Time and Situation Level of Consciousness: Sedated and Alert Patient Behavior: Talkative and Good Eye Contact Mood Description: Labile Affect Description: Labile Patient Cognition Impaired: No Ability to Follow Directions: Fair Speech Pattern: Spontaneous Speech Memory Description: Episodic Impaired Hallucinations: None Delusions: Paranoid Ideation Thought Process: Racing, Distracted and Rumination Thought Content: positive for Racing, positive for Loose Associations, positive for Tangential and positive for Suicidal Ideation (denies) Depressive Symptoms: Increased Irritability, Hopelessness, Unhappiness, Increased Fatigue and Difficulty Concentrating Judgement: Fair Diagnostics Vital Signs (24Hr): Vital Signs - 24 hr 06/06/23 18:00 06/07/23 09:10 Temperature 98.1 F 97.5 F Pulse Rate 105 H 106 H Respiratory Rate 20 Blood Pressure 148/82 H 128/87 Pulse Oximetry 98 92 Oxygen Delivery Method Room Air Room Air BMI result Body Mass Index 60.8 Labs 06/05/23 13:29 06/05/23 13:29 Labs: Laboratory Results - last 48 hr 06/05/23 06/05/23 06/06/23 10:33 13:29 08:45 WBC 10.9 H RBC 4.34 Hgb 11.7 L D Hct 35.7 L MCV 82.3 MCH 27.0 MCHC 32.8 RDW 14.1 Plt Count TNP MPV Not Reportable Immature Gran % (Auto) 0.6 H Neut % (Auto) 60.4 Lymph % (Auto) 26.4 [place] % (Auto) 9.7 Eos % (Auto) 2.3 Baso % (Auto) 0.6 Lymph # (Auto) 2.9 [place] # (Auto) 1.1 Eos # (Auto) 0.3 Baso # (Auto) 0.1 Abs Immat Gran (auto) 0.07 H Absolute Neuts (auto) 6.6 Absolute Nucleated RBC 0.000 Nucleated RBC % (auto) 0.0 Smear Tech's Comments VERIFIED Sodium 142 Potassium 4.1 D Chloride 107 Carbon Dioxide 20 L Anion Gap 19 BUN 13 Creatinine 0.65 Estim Creat Clear Calc 226.4 Estimated GFR > 60 POC Glucose 119 H 107 Fasting Glucose 137 H Estimat Average Glucose 126 Hemoglobin A1c % 6.0 Calcium 9.5 Total Bilirubin 0.4 AST 13 ALT 13 Alkaline Phosphatase 67 Total Protein 6.9 Albumin 3.8 Triglycerides 116 Cholesterol 136 LDL Cholesterol, Calc 71 HDL Cholesterol 42 Vitamin B12 353 Folate 7.4 TSH 0.97 Urine Color Urine Appearance Urine pH Ur Specific [place] Urine Protein Urine Glucose (UA) Urine Ketones Urine Blood Urine Nitrite Ur Leukocyte Esterase Urine RBC Urine WBC Ur Squamous Epith Cells Urine Bacteria Hyaline Casts Urine Test Influenza Type A (PCR) Influenza Type B (PCR) RSV RNA Qual (PCR) SARS-CoV-2 RNA (RT-PCR) 06/06/23 06/06/23 06/07/23 19:40 21:03 09:07 WBC RBC Hgb Hct MCV MCH MCHC RDW Plt Count MPV Immature Gran % (Auto) Neut % (Auto) Lymph % (Auto) [place] % (Auto) Eos % (Auto) Baso % (Auto) Lymph # (Auto) [place] # (Auto) Eos # (Auto) Baso # (Auto) Abs Immat Gran (auto) Absolute Neuts (auto) Absolute Nucleated RBC Nucleated RBC % (auto) Smear Tech's Comments Sodium Potassium Chloride Carbon Dioxide Anion Gap BUN Creatinine Estim Creat Clear Calc Estimated GFR POC Glucose 126 H Fasting Glucose Estimat Average Glucose Hemoglobin A1c % Calcium Total Bilirubin AST ALT Alkaline Phosphatase Total Protein Albumin Triglycerides Cholesterol LDL Cholesterol, Calc HDL Cholesterol Vitamin B12 Folate TSH Urine Color Yellow Urine Appearance Clear Urine pH 6.5 Ur Specific [place] 1.010 Urine Protein Negative Urine Glucose (UA) Negative Urine Ketones Negative Urine Blood Negative Urine Nitrite Positive H Ur Leukocyte Esterase Negative Urine RBC 0-2 Urine WBC 0-5 Ur Squamous Epith Cells 0-2 Urine Bacteria 4+ Hyaline Casts 0-2 Urine Test NEGATIVE Influenza Type A (PCR) NEGATIVE Influenza Type B (PCR) NEGATIVE RSV RNA Qual (PCR) NEGATIVE SARS-CoV-2 RNA (RT-PCR) NEGATIVE Medications Medications Current Medications Acetaminophen (Acetaminophen 325 Mg Tablet) 650 mg PO Q6H PRN PRN Reason: Headache/Pain Mild Scale (1-3) Last Admin: 06/06/23 11:13 Dose: 650 mg Al Hydroxide/Mg Hydroxide (Magnesium Hydrox/Alum Hydrox 30 Ml Oral.Susp) 30 ml PO Q6H PRN PRN Reason: Heartburn/Nausea Albuterol Sulfate (Albuterol Sulfate 90 Mcg 8 Gm Inhaler) 2 puff INHALE RQID PRN PRN Reason: shortness of breath or wheezing Last Admin: 06/07/23 09:11 Dose: 2 puff Atenolol (Atenolol 50 Mg Tablet) 50 mg PO DAILY [facility]; Protocol Last Admin: 06/07/23 09:15 Dose: Not Given Atorvastatin Calcium (Atorvastatin Calcium 20 Mg Tablet) 20 mg PO BEDTIME [facility] Last Admin: 06/06/23 22:24 Dose: Not Given Diphenhydramine HCl (Diphenhydramine Hcl 25 Mg Capsule) 25 mg PO Q6H PRN PRN Reason: Allergic Reaction Last Admin: 06/06/23 20:50 Dose: 25 mg Divalproex Sodium (Divalproex Sodium 250 Mg Tablet.Dr) 750 mg PO BID [facility] Last Admin: 06/07/23 09:15 Dose: Not Given Haloperidol (Haloperidol 5 Mg Tablet) 5 mg PO TID PRN PRN Reason: agitation Last Admin: 06/06/23 04:30 Dose: 5 mg Hydroxyzine HCl (Hydroxyzine Hcl 25 Mg Tablet) 25 mg PO Q6H PRN PRN Reason: Anxiety Lorazepam (Lorazepam 1 Mg Tablet) 1 mg PO Q6H PRN PRN Reason: agitation Last Admin: 06/06/23 21:16 Dose: 1 mg Lurasidone HCl (Lurasidone Hcl 80 Mg Tablet) 80 mg PO DAILY [facility] Last Admin: 06/07/23 09:10 Dose: 80 mg Magnesium Hydroxide (Milk Of Magnesia 30 Ml Oral.Susp) 30 ml PO DAILY PRN PRN Reason: Constipation Miconazole Nitrate (Miconazole Nitrate 2% Powder 85 Gm Bottle) 1 appl TOPICAL BID [facility]; Protocol Last Admin: 06/07/23 09:15 Dose: Not Given Olanzapine (Olanzapine Odt 10 Mg Tab.Rapdis) 10 mg TRANSLINGU BID [facility] Last Admin: 06/07/23 09:15 Dose: Not Given Trazodone HCl (Trazodone Hcl 100 Mg Tablet) 100 mg PO BEDTIME PRN PRN Reason: Insomnia Allergies Allergies Allergy/AdvReac Type Severity Reaction Status Date / Time kiwi [KIWI] Allergy Mild HIVES Verified 11/24/22 14:59 mold [MOLD EXTRACTS*] Allergy Mild HIVES Verified 11/24/22 14:59 Assessment & Plan Assessment & Plan (1) Bipolar disorder with psychotic features: Status: Acute Code(s): F31.9 - Bipolar disorder, unspecified Plan Mrs. Cantu is a 32 year-old woman with hx of Bipolar type 1 Disorder who was brought to [facility] [place] due to increase paranoia towards family, thinking that father is trying to kill her. She is also somatically preoccupied. These are usually content of her delusions along with some sexualized behaviors and erotomatic delusions. It was verified with pharmacy that pt has not filled medications since March. Pt also confirms she was not taking medications. We discussed risks, benefits and alternative treatment options, pt agreed to restart depakote 750mg po BID, olanzapine 10mg po BID, prn haldol 5mg po q6h prn agitation with ativan if needed. PLAN 1. Admit to M5, CV, 15 minutes checks for safety 2. Restart depakote 750mg po BID, olanzapine 10mg po BID, haldol prn 3. obtain collateral information 4. Aftercare planning. 06/07/23- Continue current regime. Tolerated re-introduction of Latuda today. Patient educated on: therapeutic strategies Informed Consent: understands and further education needed Reason for continued inpatient stay Substantial Risk for: rapid decompensation Time Spent With Patient Time: Total time managing care of this patient today ____ minutes.
[2023-06-07] MEDS: metroNIDAZOLE 500 MG TABLET PO ×2 (12:45→18:21)
[2023-06-07] MEDS: Fluconazole 150 MG TABLET PO (12:45)
[2023-06-07] MEDS: Acetaminophen 325 MG TABLET 650 MG PO (12:48)
[2023-06-07 18:00] VITALS: BP 112/83; PULSE 100; RESP 20; TEMP 36.6; O2SAT 94
[2023-06-07] MEDS: OLANZapine ODT 10 MG TAB.RAPDIS TRANSLINGU (20:44)
[2023-06-07] MEDS: Divalproex Sodium 250 MG TABLET.DR 750 MG PO (20:44)
[2023-06-07] MEDS: Atorvastatin Calcium 20 MG TABLET PO (20:44)
[2023-06-08] MEDS: metroNIDAZOLE 500 MG TABLET PO ×3 (03:03→19:09)
[2023-06-08] MEDS: LORazepam 1 MG TABLET PO (03:05)
[2023-06-08] MEDS: Albuterol Sulfate 90 MCG 8 GM INHALER 2 PUFF INHALE (04:01)
[2023-06-08] MEDS: diphenhydrAMINE HCL 25 MG CAPSULE PO (04:01)
[2023-06-08] MEDS: Lurasidone HCl 80 MG TABLET PO (08:01)
[2023-06-08] MEDS: atenoloL 50 MG TABLET PO (08:01)
[2023-06-08] MEDS: Divalproex Sodium 250 MG TABLET.DR 750 MG PO ×2 (08:02→21:30)
[2023-06-08] MEDS: OLANZapine ODT 10 MG TAB.RAPDIS TRANSLINGU ×2 (08:02→21:30)
[2023-06-08] MEDS: Miconazole Nitrate 2% Powder 85 GM Bottle 1 APPL TOPICAL (08:06)
[2023-06-08 08:09] LABS: Glucose, Whole Blood 134 mg/dL (60-115)
[2023-06-08 08:10] VITALS: BP 128/64; PULSE 104; RESP 18; TEMP 36.2; O2SAT 92
[2023-06-08 13:34] LABS: BV Int Neg Control Negative (Negative); BV Int Pos Control Positive (Positive)
--- NOTE | 2023-06-08 16:10 | P.PNPSI_ITS ---
Subjective Subjective Date of Service: 06/08/23 Reason For Visit: Bipolar d/o, current or most recent epi. manic Subjective Notes: 3 Day Healthcare Proxy: No Guardianship: No Medical Problems Affecting Mental Status: No Interim History: Some improvement noted with intermittent breakthrough sx of tangential, delusional, paranoid sx. Pt continues to have poor sleep, some outbursts at time. She is ambivalent about retraction of three day notice but is considering. We discussed needing some more time to get her regime regulated and we could work with a weekend discharge if father is willing and she is improved. She will consider. Medication Compliance: Yes Side effects from medications: No Attending Groups: No Review of Systems Acute medical concerns: No BLE Edema, possibly developing cellulitis Medical Review of Systems: unchanged Mental Status Exam Mental Status Exam Patient Appearance: Appropriate Patient Orientation: Person, Place, Time and Situation Level of Consciousness: Alert Patient Behavior: Talkative and Good Eye Contact Mood Description: Labile Affect Description: Labile Patient Cognition Impaired: No Ability to Follow Directions: Fair Speech Pattern: Spontaneous Speech Memory Description: Episodic Impaired Hallucinations: None Delusions: Paranoid Ideation, Grandiose and Present Perceptual Disturbances: Derealization Thought Process: Racing and Distracted Thought Content: positive for Racing, positive for Loose Associations, positive for Tangential and positive for Suicidal Ideation (denies) Depressive Symptoms: Increased Irritability (decreasing), Hopelessness and Difficulty Concentrating (decreasing) Abnormal Motor Activity Signs and Symptoms: Restlessness (at times) Judgement: Fair Diagnostics Vital Signs (24Hr): Vital Signs - 24 hr 06/07/23 18:00 06/08/23 08:10 Temperature 97.8 F 97.2 F Pulse Rate 100 104 H Respiratory Rate 20 18 Blood Pressure 112/83 128/64 Pulse Oximetry 94 92 Oxygen Delivery Method Room Air Room Air BMI result Body Mass Index 60.8 Labs 06/05/23 13:29 06/05/23 13:29 Labs: Laboratory Results - last 48 hr 06/06/23 06/06/23 06/07/23 19:40 21:03 09:07 POC Glucose 126 H Urine Color Yellow Urine Appearance Clear Urine pH 6.5 Ur Specific [place] 1.010 Urine Protein Negative Urine Glucose (UA) Negative Urine Ketones Negative Urine Blood Negative Urine Nitrite Positive H Ur Leukocyte Esterase Negative Urine RBC 0-2 Urine WBC 0-5 Ur Squamous Epith Cells 0-2 Urine Bacteria 4+ Hyaline Casts 0-2 Urine Test NEGATIVE Vanessa species DNA Gardnerella DNA Probe Influenza Type A (PCR) NEGATIVE Influenza Type B (PCR) NEGATIVE RSV RNA Qual (PCR) NEGATIVE SARS-CoV-2 RNA (RT-PCR) NEGATIVE Trichomonas DNA Probe 06/07/23 06/08/23 10:13 08:01 POC Glucose 134 H Urine Color Urine Appearance Urine pH Ur Specific [place] Urine Protein Urine Glucose (UA) Urine Ketones Urine Blood Urine Nitrite Ur Leukocyte Esterase Urine RBC Urine WBC Ur Squamous Epith Cells Urine Bacteria Hyaline Casts Urine Test Vanessa species DNA Negative Gardnerella DNA Probe Negative Influenza Type A (PCR) Influenza Type B (PCR) RSV RNA Qual (PCR) SARS-CoV-2 RNA (RT-PCR) Trichomonas DNA Probe Negative Medications Medications Current Medications Acetaminophen (Acetaminophen 325 Mg Tablet) 650 mg PO Q6H PRN PRN Reason: Headache/Pain Mild Scale (1-3) Last Admin: 06/07/23 12:48 Dose: 650 mg Al Hydroxide/Mg Hydroxide (Magnesium Hydrox/Alum Hydrox 30 Ml Oral.Susp) 30 ml PO Q6H PRN PRN Reason: Heartburn/Nausea Albuterol Sulfate (Albuterol Sulfate 90 Mcg 8 Gm Inhaler) 2 puff INHALE RQID PRN PRN Reason: shortness of breath or wheezing Last Admin: 06/08/23 04:01 Dose: 2 puff Atenolol (Atenolol 50 Mg Tablet) 50 mg PO DAILY [facility]; Protocol Last Admin: 06/08/23 08:01 Dose: 50 mg Atorvastatin Calcium (Atorvastatin Calcium 20 Mg Tablet) 20 mg PO BEDTIME [facility] Last Admin: 06/07/23 20:44 Dose: 20 mg Diphenhydramine HCl (Diphenhydramine Hcl 25 Mg Capsule) 25 mg PO Q6H PRN PRN Reason: Allergic Reaction Last Admin: 06/08/23 04:01 Dose: 25 mg Divalproex Sodium (Divalproex Sodium 250 Mg Tablet.Dr) 750 mg PO BID [facility] Last Admin: 06/08/23 08:02 Dose: 750 mg Haloperidol (Haloperidol 5 Mg Tablet) 5 mg PO TID PRN PRN Reason: agitation Last Admin: 06/06/23 04:30 Dose: 5 mg Hydroxyzine HCl (Hydroxyzine Hcl 25 Mg Tablet) 25 mg PO Q6H PRN PRN Reason: Anxiety Lorazepam (Lorazepam 1 Mg Tablet) 1 mg PO Q6H PRN PRN Reason: agitation Last Admin: 06/08/23 03:05 Dose: 1 mg Lurasidone HCl (Lurasidone Hcl 80 Mg Tablet) 80 mg PO DAILY [facility] Last Admin: 06/08/23 08:01 Dose: 80 mg Magnesium Hydroxide (Milk Of Magnesia 30 Ml Oral.Susp) 30 ml PO DAILY PRN PRN Reason: Constipation Metronidazole (Metronidazole 500 Mg Tablet) 500 mg PO Q8H [facility] Stop: 06/22/23 21:00 Last Admin: 06/08/23 12:22 Dose: 500 mg Miconazole Nitrate (Miconazole Nitrate 2% Powder 85 Gm Bottle) 1 appl TOPICAL BID [facility]; Protocol Last Admin: 06/08/23 08:06 Dose: 1 appl Olanzapine (Olanzapine Odt 10 Mg Tab.Rapdis) 10 mg TRANSLINGU BID [facility] Last Admin: 06/08/23 08:02 Dose: 10 mg Trazodone HCl (Trazodone Hcl 100 Mg Tablet) 100 mg PO BEDTIME PRN PRN Reason: Insomnia Allergies Allergies Allergy/AdvReac Type Severity Reaction Status Date / Time kiwi [KIWI] Allergy Mild HIVES Verified 11/24/22 14:59 mold [MOLD EXTRACTS*] Allergy Mild HIVES Verified 11/24/22 14:59 Assessment & Plan Assessment & Plan (1) Bipolar disorder with psychotic features: Status: Acute Code(s): F31.9 - Bipolar disorder, unspecified Plan Mrs. Cantu is a 32 year-old woman with hx of Bipolar type 1 Disorder who was brought to [facility] [place] due to increase paranoia towards family, thinking that father is trying to kill her. She is also somatically preoccupied. These are usually content of her delusions along with some sexualized behaviors and erotomatic delusions. It was verified with pharmacy that pt has not filled medications since March. Pt also confirms she was not taking medications. We discussed risks, benefits and alternative treatment options, pt agreed to restart depakote 750mg po BID, olanzapine 10mg po BID, prn haldol 5mg po q6h prn agitation with ativan if needed. PLAN 1. Admit to , CV, 15 minutes checks for safety 2. Restart depakote 750mg po BID, olanzapine 10mg po BID, haldol prn 3. obtain collateral information 4. Aftercare planning. 06/07/23- Continue current regime. Tolerated re-introduction of Latuda today. 06/08/23- Continue regime. Continue to monitor Patient educated on: medication risk/benefits and therapeutic strategies Informed Consent: further education needed Reason for continued inpatient stay Substantial Risk for: rapid decompensation Time Spent With Patient Time: Total time managing care of this patient today ____ minutes.
[2023-06-08 18:00] VITALS: BP 126/71; PULSE 91; TEMP 36.6
[2023-06-08] MEDS: Atorvastatin Calcium 20 MG TABLET PO (21:30)
[2023-06-09] MEDS: metroNIDAZOLE 500 MG TABLET PO ×3 (04:56→20:21)
[2023-06-09 07:00] VITALS: BMI 60.5
[2023-06-09] MEDS: Divalproex Sodium 250 MG TABLET.DR 750 MG PO ×2 (08:29→20:21)
[2023-06-09] MEDS: Lurasidone HCl 80 MG TABLET PO (08:29)
[2023-06-09] MEDS: atenoloL 50 MG TABLET PO (08:29)
[2023-06-09] MEDS: OLANZapine ODT 10 MG TAB.RAPDIS TRANSLINGU ×2 (08:29→20:21)
[2023-06-09 08:40] VITALS: BP 137/65; PULSE 90; RESP 16; TEMP 36.2; O2SAT 96
--- NOTE | 2023-06-09 15:52 | HO.PSYCHPN ---
Subjective Subjective Date of Service: 06/09/23 Reason For Visit: Bipolar d/o, current or most recent epi. manic Subjective Notes: Conditional Voluntary and 3 Day (retracted) Healthcare Proxy: No Guardianship: No Medical Problems Affecting Mental Status: No Interim History: Continues with gradual improvement. Family wanting to have her return home over the weekend under their supervision as recovery progressed. Pt reporting BLE edema, ?cellulitis sx. Seen by hospitalist who has given pt interventions to assist in mgt of this symptom. Calmer, clearer with intermittent lability, paranoia. Parents believe she is returning to her baseline. Pt with intermittent questions for tw today- not wanting long periods of dialogue, responds to brief interventions which are frequent. Medication Compliance: Yes Side effects from medications: No Attending Groups: No Review of Systems Acute medical concerns: No Medical Review of Systems: unchanged Mental Status Exam Mental Status Exam Patient Appearance: Appropriate Patient Orientation: Person, Place, Time and Situation Level of Consciousness: Alert Patient Behavior: Talkative and Good Eye Contact Mood Description: Labile Affect Description: Labile Patient Cognition Impaired: No Ability to Follow Directions: Fair Speech Pattern: Spontaneous Speech Memory Description: Episodic Impaired Hallucinations: None Delusions: Paranoid Ideation, Grandiose and Present Perceptual Disturbances: Derealization Thought Process: Racing and Distracted Thought Content: positive for Racing, positive for Loose Associations, positive for Tangential and positive for Suicidal Ideation (denies) Depressive Symptoms: Increased Irritability (decreasing), Hopelessness and Difficulty Concentrating (decreasing) Abnormal Motor Activity Signs and Symptoms: Restlessness (at times) Judgement: Fair Diagnostics Vital Signs (24Hr): Vital Signs - 24 hr 06/08/23 18:00 06/09/23 08:40 Temperature 97.9 F 97.1 F Pulse Rate 91 90 Respiratory Rate 16 Blood Pressure 126/71 137/65 Pulse Oximetry 96 Oxygen Delivery Method Room Air BMI result Body Mass Index 60.5 Labs 06/05/23 13:29 06/05/23 13:29 Labs: Laboratory Results - last 48 hr 06/07/23 06/08/23 10:13 08:01 POC Glucose 134 H Vanessa species DNA Negative Gardnerella DNA Probe Negative Trichomonas DNA Probe Negative Medications Medications Current Medications Acetaminophen (Acetaminophen 325 Mg Tablet) 650 mg PO Q6H PRN PRN Reason: Headache/Pain Mild Scale (1-3) Last Admin: 06/07/23 12:48 Dose: 650 mg Al Hydroxide/Mg Hydroxide (Magnesium Hydrox/Alum Hydrox 30 Ml Oral.Susp) 30 ml PO Q6H PRN PRN Reason: Heartburn/Nausea Albuterol Sulfate (Albuterol Sulfate 90 Mcg 8 Gm Inhaler) 2 puff INHALE RQID PRN PRN Reason: shortness of breath or wheezing Last Admin: 06/08/23 04:01 Dose: 2 puff Atenolol (Atenolol 50 Mg Tablet) 50 mg PO DAILY [facility]; Protocol Last Admin: 06/09/23 08:29 Dose: 50 mg Atorvastatin Calcium (Atorvastatin Calcium 20 Mg Tablet) 20 mg PO BEDTIME [facility] Last Admin: 06/08/23 21:30 Dose: 20 mg Diphenhydramine HCl (Diphenhydramine Hcl 25 Mg Capsule) 25 mg PO Q6H PRN PRN Reason: Allergic Reaction Last Admin: 06/08/23 04:01 Dose: 25 mg Divalproex Sodium (Divalproex Sodium 250 Mg Tablet.Dr) 750 mg PO BID [facility] Last Admin: 06/09/23 08:29 Dose: 750 mg Haloperidol (Haloperidol 5 Mg Tablet) 5 mg PO TID PRN PRN Reason: agitation Last Admin: 06/06/23 04:30 Dose: 5 mg Hydroxyzine HCl (Hydroxyzine Hcl 25 Mg Tablet) 25 mg PO Q6H PRN PRN Reason: Anxiety Lorazepam (Lorazepam 1 Mg Tablet) 1 mg PO Q6H PRN PRN Reason: agitation Last Admin: 06/08/23 03:05 Dose: 1 mg Lurasidone HCl (Lurasidone Hcl 80 Mg Tablet) 80 mg PO DAILY [facility] Last Admin: 06/09/23 08:29 Dose: 80 mg Magnesium Hydroxide (Milk Of Magnesia 30 Ml Oral.Susp) 30 ml PO DAILY PRN PRN Reason: Constipation Metronidazole (Metronidazole 500 Mg Tablet) 500 mg PO Q8H [facility] Stop: 06/22/23 21:00 Last Admin: 06/09/23 11:09 Dose: 500 mg Miconazole Nitrate (Miconazole Nitrate 2% Powder 85 Gm Bottle) 1 appl TOPICAL BID [facility]; Protocol Last Admin: 06/09/23 08:32 Dose: 1 appl Olanzapine (Olanzapine Odt 10 Mg Tab.Rapdis) 10 mg TRANSLINGU BID [facility] Last Admin: 06/09/23 08:29 Dose: 10 mg Trazodone HCl (Trazodone Hcl 100 Mg Tablet) 100 mg PO BEDTIME PRN PRN Reason: Insomnia Allergies Allergies Allergy/AdvReac Type Severity Reaction Status Date / Time kiwi [KIWI] Allergy Mild HIVES Verified 11/24/22 14:59 mold [MOLD EXTRACTS*] Allergy Mild HIVES Verified 11/24/22 14:59 Assessment & Plan Assessment & Plan (1) Bipolar disorder with psychotic features: Status: Acute Code(s): F31.9 - Bipolar disorder, unspecified Plan Mrs. Cantu is a 32 year-old woman with hx of Bipolar type 1 Disorder who [place] [facility] [place] to increase paranoia towards family, thinking that father is trying to kill her. She is also somatically preoccupied. These are usually content of her delusions along with some sexualized behaviors and erotomatic delusions. It was verified with pharmacy that pt has not filled medications since March. Pt also confirms she was not taking medications. We discussed risks, benefits and alternative treatment options, pt agreed to restart depakote 750mg po BID, olanzapine 10mg po BID, prn haldol 5mg po q6h prn agitation with ativan if needed. PLAN 1. Admit to M5, CV, 15 minutes checks for safety 2. Restart depakote 750mg po BID, olanzapine 10mg po BID, haldol prn 3. obtain collateral information 4. Aftercare planning. 06/07/23- Continue current regime. Tolerated re-introduction of Latuda today. 06/08/23- Continue regime. Continue to monitor 06/09/23-Continue regime. Monitor sleep- pt not wanting to schedule Trazodone at this time. Too many meds . Patient educated on: medication risk/benefits and therapeutic strategies Informed Consent: understands and further education needed Reason for continued inpatient stay Substantial Risk for: rapid decompensation Time Spent With Patient Time: Total time managing care of this patient today ____ minutes.
--- NOTE | 2023-06-09 16:57 | PM.EVENT ---
Event Note Date of Service: 06/09/23 Event Note: 32-year-old female with [id number] type 2 diabetes, asthma, hypertension, heterozygous factor 5, and morbid obesity with BMI greater than 60 admitted to Psychiatry consult placed to hospitalist Medicine for evaluation of bilateral lower extremity edema with erythema. The patient reports she has bilateral lower extremity edema chronically with intermittent erythema but states this is worse today. She is concerned about blood clots given she does have a history of factor 5 heterozygous. Has no known history of blood clots and is not on anticoagulation. She does report discomfort in the lower extremities. Reports compression stockings were ordered but was unable to tolerate these due to discomfort. No calf tenderness, sob, palpitations, or chest pain. No fevers, chills. On exam, patient has 1+ BLE edema with faint erythema and mild warmth of the distal third of the BLE. No calf tenderness or palpable cords. No skin breaks noted. A/P: Given bilateral nature of symptoms and chronic intermittent b/l edema and erythema, I have low suspicion for an acute cellulitis. She is afebrile. Would not recommend antibiotic therapy at this time. Her symptoms are likely chronic venous stasis with multifactorial etiology related to her history of poorly controlled diabetes and morbid obesity. Given patient's concerns regarding blood clots and her history of factor V, though this is heterozygous and has no hx of clots, will check venous duplex ble, though again suspicion for DVT is relatively low. I recommend leg elevation, compression (use neeru wraps if allowed on unit since she does not tolerate compression stockings), and OOB with ambulation often as being sedentary will increase the dependent edema and erythema. Thank you for allowing me to participate in this consult. Signing off at this time. Please do not hesitate to call for further questions. Time Spent With Patient Time: Total time managing care of this patient today ____ minutes.
[2023-06-09] MEDS: diphenhydrAMINE HCL 25 MG CAPSULE PO (20:20)
[2023-06-09] MEDS: Atorvastatin Calcium 20 MG TABLET PO (20:21)
--- NOTE | 2023-06-09 22:25 | PC.NURSE ---
At 2114, pt entered the hallway without clothing and only a blanket wrapped around her torso. Pt appeared to have poor insight as staff attempted to redirect her to her room, pt stated, Why? I'm wearing a blanket.
[2023-06-09 23:41] VITALS: BP 132/86; PULSE 69; RESP 16; TEMP 36.3; O2SAT 95
--- NOTE | 2023-06-09 23:48 | PC.NURSE ---
Pt went down for ultrasound to rule out DVT in bilateral leg. Ultrasound came back negative. Pt reports itchiness in a leg and took Benadryl for it.
[2023-06-10] MEDS: traZODone HCL 100 MG TABLET PO (01:36)
[2023-06-10] MEDS: metroNIDAZOLE 500 MG TABLET PO ×3 (01:36→19:45)
[2023-06-10] MEDS: LORazepam 1 MG TABLET PO (01:36)
[2023-06-10 08:28] VITALS: BP 146/63; PULSE 69; RESP 16; TEMP 36.4; O2SAT 98
[2023-06-10] MEDS: atenoloL 50 MG TABLET PO (08:59)
[2023-06-10] MEDS: Lurasidone HCl 80 MG TABLET PO (08:59)
--- NOTE | 2023-06-10 11:25 | HO.PSYCHPN ---
Subjective Subjective Date of Service: 06/10/23 Reason For Visit: Bipolar d/o, current or most recent epi. manic Subjective Notes: Conditional Voluntary Interim History: Team reports pt was awake until 230am and did sleep well after Trazodone was given. Will schedule trazodone this evening. Pt will discharge 06/12 11am to her father's care. Meds will go to [facility]. Pt with intermittent cough. Family asks for COVID eval which is ordered. Pt continues to gradual improvement. Sleep is a target sx to focus on while she remains in patient. Medication Compliance: Yes Side effects from medications: No Attending Groups: No Review of Systems Acute medical concerns: No Medical Review of Systems: unchanged Mental Status Exam Mental Status Exam Patient Appearance: Appropriate Patient Orientation: Person, Place, Time and Situation Level of Consciousness: Alert Patient Behavior: Talkative and Good Eye Contact Mood Description: Labile Affect Description: Labile Patient Cognition Impaired: No Ability to Follow Directions: Fair Speech Pattern: Spontaneous Speech Memory Description: Episodic Impaired Hallucinations: None Delusions: Paranoid Ideation, Grandiose and Present Perceptual Disturbances: Derealization Thought Process: Racing and Distracted Thought Content: positive for Racing, positive for Loose Associations, positive for Tangential and positive for Suicidal Ideation (denies) Depressive Symptoms: Increased Irritability (decreasing), Hopelessness and Difficulty Concentrating (decreasing) Abnormal Motor Activity Signs and Symptoms: Restlessness (at times) Judgement: Fair Diagnostics Vital Signs (24Hr): Vital Signs - 24 hr 06/09/23 23:41 06/10/23 08:28 Temperature 97.4 F 97.5 F Pulse Rate 69 69 Respiratory Rate 16 16 Blood Pressure 132/86 146/63 H Pulse Oximetry 95 98 Oxygen Delivery Method Room Air Room Air BMI result Body Mass Index 60.5 Labs 06/05/23 13:29 06/05/23 13:29 Labs: Laboratory Results - last 48 hr 06/07/23 06/09/23 06/10/23 10:13 17:43 08:51 POC Glucose 177 H 92 Vanessa species DNA Negative Gardnerella DNA Probe Negative Trichomonas DNA Probe Negative Imaging Radiology Impressions: ITS Impressions Venous Duplex 06/09/23 19:10 IMPRESSION: No DVT demonstrated in the bilateral lower extremities. Medications Medications Current Medications Acetaminophen (Acetaminophen 325 Mg Tablet) 650 mg PO Q6H PRN PRN Reason: Headache/Pain Mild Scale (1-3) Last Admin: 06/07/23 12:48 Dose: 650 mg Al Hydroxide/Mg Hydroxide (Magnesium Hydrox/Alum Hydrox 30 Ml Oral.Susp) 30 ml PO Q6H PRN PRN Reason: Heartburn/Nausea Albuterol Sulfate (Albuterol Sulfate 90 Mcg 8 Gm Inhaler) 2 puff INHALE RQID PRN PRN Reason: shortness of breath or wheezing Last Admin: 06/08/23 04:01 Dose: 2 puff Atenolol (Atenolol 50 Mg Tablet) 50 mg PO DAILY [facility]; Protocol Last Admin: 06/10/23 08:59 Dose: 50 mg Atorvastatin Calcium (Atorvastatin Calcium 20 Mg Tablet) 20 mg PO BEDTIME [facility] Last Admin: 06/09/23 20:21 Dose: 20 mg Diphenhydramine HCl (Diphenhydramine Hcl 25 Mg Capsule) 25 mg PO Q6H PRN PRN Reason: Allergic Reaction Last Admin: 06/09/23 20:20 Dose: 25 mg Divalproex Sodium (Divalproex Sodium 250 Mg Tablet.Dr) 750 mg PO BID [facility] Last Admin: 06/10/23 08:58 Dose: 750 mg Haloperidol (Haloperidol 5 Mg Tablet) 5 mg PO TID PRN PRN Reason: agitation Last Admin: 06/06/23 04:30 Dose: 5 mg Hydroxyzine HCl (Hydroxyzine Hcl 25 Mg Tablet) 25 mg PO Q6H PRN PRN Reason: Anxiety Lurasidone HCl (Lurasidone Hcl 80 Mg Tablet) 80 mg PO DAILY [facility] Last Admin: 06/10/23 08:59 Dose: 80 mg Magnesium Hydroxide (Milk Of Magnesia 30 Ml Oral.Susp) 30 ml PO DAILY PRN PRN Reason: Constipation Metronidazole (Metronidazole 500 Mg Tablet) 500 mg PO Q8H [facility] Stop: 06/22/23 21:00 Last Admin: 06/10/23 01:36 Dose: 500 mg Miconazole Nitrate (Miconazole Nitrate 2% Powder 85 Gm Bottle) 1 appl TOPICAL BID [facility]; Protocol Last Admin: 06/10/23 10:23 Dose: Not Given Non-Formulary Medication (Align) 1 tab PO DAILY [facility] Olanzapine (Olanzapine Odt 10 Mg Tab.Rapdis) 10 mg TRANSLINGU BID [facility] Last Admin: 06/10/23 08:59 Dose: 10 mg Trazodone HCl (Trazodone Hcl 100 Mg Tablet) 100 mg PO BEDTIME PRN PRN Reason: Insomnia Last Admin: 06/10/23 01:36 Dose: 100 mg Allergies Allergies Allergy/AdvReac Type Severity Reaction Status Date / Time kiwi [KIWI] Allergy Mild HIVES Verified 11/24/22 14:59 mold [MOLD EXTRACTS*] Allergy Mild HIVES Verified 11/24/22 14:59 Assessment & Plan Assessment & Plan (1) Bipolar disorder with psychotic features: Status: Acute Code(s): F31.9 - Bipolar disorder, unspecified Plan Mrs. Cantu is a 32 year-old woman with hx of Bipolar type 1 Disorder who was brought [place] [facility] [place] due to increase paranoia towards family, thinking that father is trying to kill her. She is also somatically preoccupied. These are usually content of her delusions along with some sexualized behaviors and erotomatic delusions. It was verified with pharmacy that pt has not filled medications since March. Pt also confirms she was not taking medications. We discussed risks, benefits and alternative treatment options, pt agreed to restart depakote 750mg po BID, olanzapine 10mg po BID, prn haldol 5mg po q6h prn agitation with ativan if needed. PLAN 1. Admit to M5, CV, 15 minutes checks for safety 2. Restart depakote 750mg po BID, olanzapine 10mg po BID, haldol prn 3. obtain collateral information 4. Aftercare planning. 06/07/23- Continue current regime. Tolerated re-introduction of Latuda today. 06/08/23- Continue regime. Continue to monitor 06/10/23 Continue regime and plan of care Patient educated on: therapeutic strategies Informed Consent: understands and further education needed Reason for continued inpatient stay Substantial Risk for: rapid decompensation Time Spent With Patient Time: Total time managing care of this patient today ____ minutes.
[2023-06-10 18:00] VITALS: BP 127/60; PULSE 81; RESP 16; TEMP 35.9; O2SAT 98
[2023-06-10] MEDS: Atorvastatin Calcium 20 MG TABLET PO (19:45)
[2023-06-11] MEDS: metroNIDAZOLE 500 MG TABLET PO ×3 (04:29→20:36)
[2023-06-11 08:00] VITALS: BP 133/70; PULSE 97; TEMP 36.2; O2SAT 95
[2023-06-11] MEDS: Lurasidone HCl 80 MG TABLET PO (08:32)
[2023-06-11] MEDS: atenoloL 50 MG TABLET PO (08:32)
[2023-06-11] MEDS: Albuterol Sulfate 90 MCG 8 GM INHALER 2 PUFF INHALE (10:11)
--- NOTE | 2023-06-11 16:35 | HO.PSYCHPN ---
Subjective Subjective Date of Service: 06/11/23 Reason For Visit: Bipolar d/o, current or most recent epi. manic Subjective Notes: Conditional Voluntary Interim History: Pt seen, reviewed with team. Plans reviewed. Pt reports improved sleep with scheduled trazodone. Med compliant. Interactive with peers and team. No extreme lability. Call to father Lucas [phone] with pt to review meds, discharge plan. Pt has been refusing Valproate levels. She agrees to have a level before discharge tomorrow. 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 Father will transport pt home on 06/12. Plans to arrive by 11am. Medication Compliance: Yes Side effects from medications: No Attending Groups: Yes Review of Systems Acute medical concerns: No Medical Review of Systems: unchanged Mental Status Exam Mental Status Exam Patient Appearance: Appropriate Patient Orientation: Person, Place, Time and Situation Level of Consciousness: Alert Patient Behavior: Talkative and Good Eye Contact Mood Description: Appropriate Affect Description: Appropriate Patient Cognition Impaired: No Ability to Follow Directions: Fair Speech Pattern: Spontaneous Speech Memory Description: Episodic Impaired Hallucinations: None Thought Process: Distracted Thought Content: positive for Tangential and positive for Suicidal Ideation (denies) Judgement: Good Diagnostics Vital Signs (24Hr): Vital Signs - 24 hr 06/10/23 18:00 06/11/23 08:00 Temperature 96.6 F L 97.2 F Pulse Rate 81 97 Respiratory Rate 16 Blood Pressure 127/60 133/70 Pulse Oximetry 98 95 Oxygen Delivery Method Room Air Room Air BMI result Body Mass Index 60.5 Labs 06/05/23 13:29 06/05/23 13:29 Labs: Laboratory Results - last 48 hr 06/09/23 06/10/23 06/11/23 17:43 08:51 07:59 POC Glucose 177 H 92 186 H Imaging Radiology Impressions: ITS Impressions Venous Duplex 06/09/23 19:10 IMPRESSION: No DVT demonstrated in the bilateral lower extremities. Medications Medications Current Medications Acetaminophen (Acetaminophen 325 Mg Tablet) 650 mg PO Q6H PRN PRN Reason: Headache/Pain Mild Scale (1-3) Last Admin: 06/07/23 12:48 Dose: 650 mg Al Hydroxide/Mg Hydroxide (Magnesium Hydrox/Alum Hydrox 30 Ml Oral.Susp) 30 ml PO Q6H PRN PRN Reason: Heartburn/Nausea Albuterol Sulfate (Albuterol Sulfate 90 Mcg 8 Gm Inhaler) 2 puff INHALE RQID PRN PRN Reason: shortness of breath or wheezing Last Admin: 06/11/23 10:11 Dose: 2 puff Atenolol (Atenolol 50 Mg Tablet) 50 mg PO DAILY [facility]; Protocol Last Admin: 06/11/23 08:32 Dose: 50 mg Atorvastatin Calcium (Atorvastatin Calcium 20 Mg Tablet) 20 mg PO BEDTIME [facility] Last Admin: 06/10/23 19:45 Dose: 20 mg Diphenhydramine HCl (Diphenhydramine Hcl 25 Mg Capsule) 25 mg PO Q6H PRN PRN Reason: Allergic Reaction Last Admin: 06/09/23 20:20 Dose: 25 mg Divalproex Sodium (Divalproex Sodium 250 Mg Tablet.Dr) 750 mg PO BID [facility] Last Admin: 06/11/23 08:32 Dose: 750 mg Guaifenesin/Dextromethorphan (Guaifenesin Dm 200/20/10 Ml 10 Ml Syrup) 10 ml PO Q6H PRN PRN Reason: cough Haloperidol (Haloperidol 5 Mg Tablet) 5 mg PO TID PRN PRN Reason: agitation Last Admin: 06/06/23 04:30 Dose: 5 mg Hydroxyzine HCl (Hydroxyzine Hcl 25 Mg Tablet) 25 mg PO Q6H PRN PRN Reason: Anxiety Lurasidone HCl (Lurasidone Hcl 80 Mg Tablet) 80 mg PO DAILY [facility] Last Admin: 06/11/23 08:32 Dose: 80 mg Magnesium Hydroxide (Milk Of Magnesia 30 Ml Oral.Susp) 30 ml PO DAILY PRN PRN Reason: Constipation Metronidazole (Metronidazole 500 Mg Tablet) 500 mg PO Q8H [facility] Stop: 06/22/23 21:00 Last Admin: 06/11/23 14:39 Dose: 500 mg Miconazole Nitrate (Miconazole Nitrate 2% Powder 85 Gm Bottle) 1 appl TOPICAL BID [facility]; Protocol Last Admin: 06/11/23 08:24 Dose: 1 appl Pt Own Medication ( (Align 1 Tab)) 1 tab PO DAILY [facility] Last Admin: 06/11/23 08:26 Dose: 1 tab Olanzapine (Olanzapine Odt 10 Mg Tab.Rapdis) 10 mg TRANSLINGU BID [facility] Last Admin: 06/11/23 08:32 Dose: 10 mg Trazodone HCl (Trazodone Hcl 100 Mg Tablet) 100 mg PO BEDTIME [facility] Last Admin: 06/10/23 19:46 Dose: 100 mg Allergies Allergies Allergy/AdvReac Type Severity Reaction Status Date / Time kiwi [KIWI] Allergy Mild HIVES Verified 11/24/22 14:59 mold [MOLD EXTRACTS*] Allergy Mild HIVES Verified 11/24/22 14:59 Assessment & Plan Assessment & Plan (1) Bipolar disorder with psychotic features: Status: Acute Code(s): F31.9 - Bipolar disorder, unspecified Plan Mrs. Cantu is a 32 year-old woman with hx of Bipolar type 1 Disorder who was brought to [facility] [place] due to increase paranoia towards family, thinking that father is trying to kill her. She is also somatically preoccupied. These are usually content of her delusions along with some sexualized behaviors and erotomatic delusions. It was verified with pharmacy that pt has not filled medications since March. Pt also confirms she was not taking medications. We discussed risks, benefits and alternative treatment options, pt agreed to restart depakote 750mg po BID, olanzapine 10mg po BID, prn haldol 5mg po q6h prn agitation with ativan if needed. PLAN 1. Admit to M5, CV, 15 minutes checks for safety 2. Restart depakote 750mg po BID, olanzapine 10mg po BID, haldol prn 3. obtain collateral information 4. Aftercare planning. 06/07/23- Continue current regime. Tolerated re-introduction of Latuda today. 06/08/23- Continue regime. Continue to monitor 06/10/23 Continue regime and plan of care 06/11/23 Continue regime and plan. Discharge 06/12. Patient educated on: medication risk/benefits and therapeutic strategies Guardian/Caregiver educated on: medication risk/benefits and therapeutic strategies Informed Consent: understands Reason for continued inpatient stay Substantial Risk for: rapid decompensation Time Spent With Patient Time: Total time managing care of this patient today ____ minutes.
[2023-06-11 18:00] VITALS: BP 129/77; PULSE 81; RESP 16; TEMP 36.1; O2SAT 98
[2023-06-11] MEDS: Atorvastatin Calcium 20 MG TABLET PO (20:36)
[2023-06-12] MEDS: metroNIDAZOLE 500 MG TABLET PO (04:23)
[2023-06-12] MEDS: atenoloL 50 MG TABLET PO (08:18)
[2023-06-12] MEDS: Lurasidone HCl 80 MG TABLET PO (08:18)
[2023-06-12 08:21] VITALS: BP 147/90; PULSE 88; RESP 20; TEMP 36.1; O2SAT 99
--- NOTE | 2023-06-12 13:40 | P.PNPSI_ITS ---
Subjective Subjective Date of Service: 06/12/23 Reason For Visit: Bipolar d/o, current or most recent epi. manic Subjective Notes: Conditional Voluntary Healthcare Proxy: No Guardianship: No Medical Problems Affecting Mental Status: No Interim History: Met with pt and her father. Pt with an increase of sx of paranoia, psychosis today. Discussed postponing discharge which both agree is an appropriate idea. Offered increase in Olanzapine. I think we better to it- I have symptoms. Medication Compliance: Yes Side effects from medications: No Attending Groups: Intermittent Review of Systems Acute medical concerns: No Medical Review of Systems: unchanged Mental Status Exam Mental Status Exam Patient Appearance: Appropriate Patient Orientation: Person, Place, Time and Situation Level of Consciousness: Alert Patient Behavior: Talkative and Good Eye Contact Mood Description: Appropriate Affect Description: Appropriate and Angry Patient Cognition Impaired: No Ability to Follow Directions: Fair Speech Pattern: Spontaneous Speech Memory Description: Episodic Impaired Hallucinations: None Delusions: Paranoid Ideation and Grandiose Thought Process: Distracted Thought Content: positive for Tangential and positive for Suicidal Ideation (denies) Judgement: Good Diagnostics Vital Signs (24Hr): Vital Signs - 24 hr 06/11/23 18:00 06/12/23 08:21 Temperature 97 F 96.9 F Pulse Rate 81 88 Respiratory Rate 16 20 Blood Pressure 129/77 147/90 H Pulse Oximetry 98 99 Oxygen Delivery Method Room Air Room Air BMI result Body Mass Index 60.5 Labs 06/05/23 13:29 06/05/23 13:29 Labs: Laboratory Results - last 48 hr 06/11/23 06/11/23 06/12/23 07:59 17:36 08:06 POC Glucose 186 H 122 H Valproic Acid 63.6 06/12/23 09:04 POC Glucose Valproic Acid 64.5 Imaging Radiology Impressions: ITS Impressions Venous Duplex 06/09/23 19:10 IMPRESSION: No DVT demonstrated in the bilateral lower extremities. Medications Medications Current Medications Acetaminophen (Acetaminophen 325 Mg Tablet) 650 mg PO Q6H PRN PRN Reason: Headache/Pain Mild Scale (1-3) Last Admin: 06/07/23 12:48 Dose: 650 mg Al Hydroxide/Mg Hydroxide (Magnesium Hydrox/Alum Hydrox 30 Ml Oral.Susp) 30 ml PO Q6H PRN PRN Reason: Heartburn/Nausea Albuterol Sulfate (Albuterol Sulfate 90 Mcg 8 Gm Inhaler) 2 puff INHALE RQID PRN PRN Reason: shortness of breath or wheezing Last Admin: 06/11/23 10:11 Dose: 2 puff Atenolol (Atenolol 50 Mg Tablet) 50 mg PO DAILY [facility]; Protocol Last Admin: 06/12/23 08:18 Dose: 50 mg Atorvastatin Calcium (Atorvastatin Calcium 20 Mg Tablet) 20 mg PO BEDTIME [facility] Last Admin: 06/11/23 20:36 Dose: 20 mg Diphenhydramine HCl (Diphenhydramine Hcl 25 Mg Capsule) 25 mg PO Q6H PRN PRN Reason: Allergic Reaction Last Admin: 06/09/23 20:20 Dose: 25 mg Divalproex Sodium (Divalproex Sodium 250 Mg Tablet.Dr) 750 mg PO BID [facility] Last Admin: 06/12/23 08:17 Dose: 750 mg Guaifenesin/Dextromethorphan (Guaifenesin Dm 200/20/10 Ml 10 Ml Syrup) 10 ml PO Q6H PRN PRN Reason: cough Haloperidol (Haloperidol 5 Mg Tablet) 5 mg PO TID PRN PRN Reason: agitation Last Admin: 06/06/23 04:30 Dose: 5 mg Hydroxyzine HCl (Hydroxyzine Hcl 25 Mg Tablet) 25 mg PO Q6H PRN PRN Reason: Anxiety Lurasidone HCl (Lurasidone Hcl 80 Mg Tablet) 80 mg PO DAILY [facility] Last Admin: 06/12/23 08:18 Dose: 80 mg Magnesium Hydroxide (Milk Of Magnesia 30 Ml Oral.Susp) 30 ml PO DAILY PRN PRN Reason: Constipation Metronidazole (Metronidazole 500 Mg Tablet) 500 mg PO Q8H [facility] Stop: 06/22/23 21:00 Last Admin: 06/12/23 13:30 Dose: 500 mg Miconazole Nitrate (Miconazole Nitrate 2% Powder 85 Gm Bottle) 1 appl TOPICAL BID [facility]; Protocol Last Admin: 06/12/23 09:58 Dose: 1 appl Pt Own Medication ( (Align 1 Tab)) 1 tab PO DAILY [facility] Last Admin: 06/12/23 08:18 Dose: 1 tab Olanzapine (Olanzapine Odt 10 Mg Tab.Rapdis) 10 mg TRANSLINGU BID [facility] Last Admin: 06/12/23 08:18 Dose: 10 mg Trazodone HCl (Trazodone Hcl 100 Mg Tablet) 100 mg PO BEDTIME [facility] Last Admin: 06/11/23 20:36 Dose: 100 mg Allergies Allergies Allergy/AdvReac Type Severity Reaction Status Date / Time kiwi [KIWI] Allergy Mild HIVES Verified 11/24/22 14:59 mold [MOLD EXTRACTS*] Allergy Mild HIVES Verified 11/24/22 14:59 Assessment & Plan Assessment & Plan (1) Bipolar disorder with psychotic features: Status: Acute Code(s): F31.9 - Bipolar disorder, unspecified Plan Mrs. Cantu is a 32 year-old woman with hx of Bipolar type 1 Disorder who was brought to [facility] [place] due to increase paranoia towards family, thinking that father is trying to kill her. She is also somatically preoccupied. These are usually content of her delusions along with some sexualized behaviors and erotomatic delusions. It was verified with pharmacy that pt has not filled medications since March. Pt also confirms she was not taking medications. We discussed risks, benefits and alternative treatment options, pt agreed to restart depakote 750mg po BID, olanzapine 10mg po BID, prn haldol 5mg po q6h prn agitation with ativan if needed. PLAN 1. Admit to M5, CV, 15 minutes checks for safety 2. Restart depakote 750mg po BID, olanzapine 10mg po BID, haldol prn 3. obtain collateral information 4. Aftercare planning. 06/07/23- Continue current regime. Tolerated re-introduction of Latuda today. 06/08/23- Continue regime. Continue to monitor 06/10/23 Continue regime and plan of care 06/11/23 Continue regime and plan. Discharge 06/12. 06/12/23 Postpone discharge, will increase Olanzapine. Patient educated on: medication risk/benefits and therapeutic strategies Informed Consent: understands Reason for continued inpatient stay Substantial Risk for: rapid decompensation Time Spent With Patient Time: Total time managing care of this patient today ____ minutes.
[2023-06-12 18:00] VITALS: BP 124/67; PULSE 75; RESP 16; TEMP 36.6; O2SAT 94
[2023-06-12] MEDS: Atorvastatin Calcium 20 MG TABLET PO (19:19)
[2023-06-13] MEDS: Lurasidone HCl 80 MG TABLET PO (08:13)
[2023-06-13] MEDS: atenoloL 50 MG TABLET PO (08:13)
[2023-06-13 08:35] VITALS: BP 122/86; PULSE 78; RESP 18; TEMP 36.6; O2SAT 98
--- NOTE | 2023-06-13 19:02 | PM.PSYDC ---
DS: Providers Provider Date of Service: 06/13/23 Date of admission: 06/04/23 22:55 Date of discharge: 06/13/23 Admitting clinician: Anny Rodas Attending physician on admission: James Argueta Consults: 06/04/23 23:07 Consult to Hospitalist Routine Comment: Consulting Provider: Hospitalist Reason For Exam: medical H&P 06/09/23 14:04 Consult to Hospitalist Routine Comment: Consulting Provider: Hospitalist Reason For Exam: BLE Edema, sx of cellulitis? Attending physician on discharge: James Argueta Discharging clinician: Rianna Santos DS: Diagnosis Discharge Diagnosis (1) Bipolar disorder with psychotic features: Status: Acute DS: Medications Discharge Medications Home Medications: Previous Rx's Medication Instructions Recorded Align 1 tab PO DAILY ##0 06/11/23 albuterol sulfate 90 mcg/actuation 2 inh inhalation QID PRN shortness 06/11/23 aerosol inhaler (ProAir HFA) of breath or wheezing #1 inhaler atenolol 50 mg tablet 50 mg PO DAILY #30 tabs 06/11/23 atorvastatin 20 mg tablet 20 mg PO BEDTIME #90 tabs 06/11/23 dextromethorphan-guaifenesin 10 10 ml PO Q6H PRN cough #1 units 06/11/23 mg-100 mg/5 mL oral syrup diphenhydramine HCl 50 mg tablet 50 mg PO BID PRN Anxiety #60 tabs 06/11/23 divalproex 250 mg tablet,delayed 250 mg PO BID #60 tabs 06/11/23 release divalproex 500 mg tablet,delayed 500 mg PO BID #60 tabs 06/11/23 release lurasidone 80 mg tablet 80 mg PO QAM #30 tabs 06/11/23 melatonin 3 mg capsule 6 mg (2 x 3 mg) PO BEDTIME PRN 06/11/23 Sleep #30 caps metronidazole 500 mg tablet 500 mg PO Q8H #29 tabs 06/11/23 miconazole nitrate 2 % topical 1 appl topical BID #1 units 06/11/23 powder (Micro-Guard) trazodone 100 mg tablet 100 mg PO BEDTIME #30 tabs 06/11/23 olanzapine 10 mg disintegrating 10 mg PO DAILY #30 tabs 06/13/23 tablet (Zyprexa Zydis) olanzapine 20 mg disintegrating 20 mg PO BEDTIME #30 tabs 06/13/23 tablet (Zyprexa Zydis) Mental Status Exam Mental Status Exam Patient Appearance: Appropriate Patient Orientation: Person, Place, Time and Situation Level of Consciousness: Alert Patient Behavior: Talkative and Good Eye Contact Mood Description: Appropriate Affect Description: Appropriate and Angry Patient Cognition Impaired: No Ability to Follow Directions: Fair Speech Pattern: Spontaneous Speech Memory Description: Episodic Impaired Hallucinations: None Delusions: Paranoid Ideation and Grandiose Thought Process: Distracted Thought Content: positive for Tangential and positive for Suicidal Ideation (denies) Judgement: Good Data Data Completed and Pending Completed studies during hospitalization [Text1]: 06/06/23 06/06/23 06/07/23 19:40 21:03 09:07 POC Glucose 126 H Urine Color Yellow Urine Appearance Clear Urine pH 6.5 Ur Specific [place] 1.010 Urine Protein Negative Urine Glucose (UA) Negative Urine Ketones Negative Urine Blood Negative Urine Nitrite Positive H Ur Leukocyte Esterase Negative Urine RBC 0-2 Urine WBC 0-5 Ur Squamous Epith Cells 0-2 Urine Bacteria 4+ Hyaline Casts 0-2 Urine Test NEGATIVE Valproic Acid Vanessa species DNA [place] DNA Probe Influenza Type A (PCR) NEGATIVE Influenza Type B (PCR) NEGATIVE RSV RNA Qual (PCR) NEGATIVE SARS-CoV-2 RNA (RT-PCR) NEGATIVE Trichomonas DNA Probe 06/07/23 06/08/23 06/09/23 10:13 08:01 17:43 POC Glucose 134 H 177 H Urine Color Urine Appearance Urine pH Ur Specific [place] Urine Protein Urine Glucose (UA) Urine Ketones Urine Blood Urine Nitrite Ur Leukocyte Esterase Urine RBC Urine WBC Ur Squamous Epith Cells Urine Bacteria Hyaline Casts Urine Test Valproic Acid Vanessa species DNA Negative [place] DNA Probe Negative Influenza Type A (PCR) Influenza Type B (PCR) RSV RNA Qual (PCR) SARS-CoV-2 RNA (RT-PCR) Trichomonas DNA Probe Negative 06/10/23 06/11/23 06/11/23 08:51 07:59 17:36 POC Glucose 92 186 H Urine Color Urine Appearance Urine pH Ur Specific [place] Urine Protein Urine Glucose (UA) Urine Ketones Urine Blood Urine Nitrite Ur Leukocyte Esterase Urine RBC Urine WBC Ur Squamous Epith Cells Urine Bacteria Hyaline Casts Urine Test Valproic Acid 63.6 Vanessa species DNA [place] DNA Probe Influenza Type A (PCR) Influenza Type B (PCR) RSV RNA Qual (PCR) SARS-CoV-2 RNA (RT-PCR) Trichomonas DNA Probe 06/12/23 06/12/23 06/13/23 08:06 09:04 03:56 POC Glucose 122 H 124 H Urine Color Urine Appearance Urine pH Ur Specific [place] Urine Protein Urine Glucose (UA) Urine Ketones Urine Blood Urine Nitrite Ur Leukocyte Esterase Urine RBC Urine WBC Ur Squamous Epith Cells Urine Bacteria Hyaline Casts Urine Test Valproic Acid 64.5 Vanessa species DNA [place] DNA Probe Influenza Type A (PCR) Influenza Type B (PCR) RSV RNA Qual (PCR) SARS-CoV-2 RNA (RT-PCR) Trichomonas DNA Probe 06/13/23 08:04 POC Glucose 122 H Urine Color Urine Appearance Urine pH Ur Specific [place] Urine Protein Urine Glucose (UA) Urine Ketones Urine Blood Urine Nitrite Ur Leukocyte Esterase Urine RBC Urine WBC Ur Squamous Epith Cells Urine Bacteria Hyaline Casts Urine Test Valproic Acid Vanessa species DNA [place] DNA Probe Influenza Type A (PCR) Influenza Type B (PCR) RSV RNA Qual (PCR) SARS-CoV-2 RNA (RT-PCR) Trichomonas DNA Probe 06/06/23 20:04 Urine clean catch - Urine landon top Urine Culture - Final Escherichia coli Imaging Diagnostic Imaging Impressions Venous Duplex 06/09/23 19:10 IMPRESSION: No DVT demonstrated in the bilateral lower extremities. DS: Summary Hospital Course Hospital Course: Admission to adult psychiatry for exacerbation of bipolar disorder with psychotic features. Pt experiencing acute brendon upon admission. Olanzapine and Valproate were titrated. Regime was adjusted with efficacy. The team worked closely with pt's family to assist with treatment compliance, avoidance of committment, which pt has experienced in the past and discharge to out patient care with extra support at home. Time spent discussing smoking cessation with patient: 3 to 10 minutes Status at Discharge Functional status at discharge: independent ambulation Overall status at discharge: patient is progressing back to baseline Time Spent with Patient Time attestation: Total time managing care of this patient today ____ minutes. Time spent: Greater than 30 minutes Discharge Plan Discharge Anticipated Discharge Date/Time: 06/12/23 12:42 Patient Disposition: Home, Self-Care Discharge Diagnosis: Bipolar Disorder with Psychosis Referrals: Therapy: Kiera Mccauley ([facility]) [Other] - 06/16/23 10:00 am (Appointment is in person at the office ) Psych Prescriber: Valentin Briseno ([facility]) [Other] - 07/11/23 9:00 am (Appointment is in person at the office ) Jose Estes MD [Physician] - 1 Week (office will call pt with f/u appointment.) Discharge Medications: New Align 1 tab PO DAILY Qty: 0 0RF Continued atorvastatin 20 mg tablet 20 mg PO BEDTIME Qty: 90 0RF divalproex 250 mg tablet,delayed release (DR/EC) 250 mg PO BID Qty: 60 0RF diphenhydramine HCl 50 mg tablet 50 mg PO BID PRN (Reason: Anxiety) Qty: 60 0RF Rx Instructions: Use as needed for anxiety divalproex 500 mg tablet,delayed release (DR/EC) 500 mg PO BID Qty: 60 0RF Changed albuterol sulfate [ProAir HFA] 90 mcg/actuation HFA aerosol inhaler 2 inh inhalation QID PRN (Reason: shortness of breath or wheezing) Qty: 1 0RF Discontinued lorazepam 2 mg tablet 1 mg PO BID Rx Instructions: for 30days; advised to not stop without consulting prescribing doctor melatonin 3 mg capsule 6 mg PO BEDTIME PRN (Reason: Sleep) olanzapine 10 mg tablet 10 mg PO DAILY PRN (Reason: agitation) atenolol 50 mg tablet 50 mg PO DAILY Qty: 90 0RF lurasidone 80 mg tablet 80 mg PO QAM No Action Banophen capsule 50 mg PO BID PRN (Reason: Anxiety) Latuda tablet 80 mg PO DAILY Rx Instructions: Take with food trazodone tablet 100 mg PO BEDTIME atenolol 50 mg tablet 50 mg PO DAILY Qty: 90 0RF Discharge Orders: Discharge Order (Routine); Ordered 06/13/23 Ordered By: Rianna Santos Diet: Advance to usual diet Activity on Discharge: As tolerated Stand Alone Forms: Patient Portal Discharge page, Community Support Care Plan Goals: Mood and Behavioral Stabilization Health Concerns: Mood and Behavioral Stabilization Plan of Treatment: Attend scheduled appointments Take medications as indicated Call/Return as needed Assessment: Pt interviewed prior to discharge and found to be fully oriented and without SI/HI. Pt has insight and demonstrates good judgment in terms of wanting to pursue treatment. Pt is not in imminent risk of harm to self or others and has a safety plan that includes presenting to the closest ER or calling 911 if feeling unsafe. Pt has been observed closely by nursing and unit staff throughout admission. Pt has not engaged in any behaviors that suggest dangerousness to self or others and has demonstrated appropriate behaviors and impulse control. Pt is progressing in her recovery. She will live with her father. Both parents wanted as short a stay as possible and will assist pt at home. Discharge Date/Time: 06/13/23 11:40
== END 2023-06-13 11:40 | disposition home or self-care (01) | DRG 753 ==
PROVIDERS: Social Worker; Admitting Provider Psychiatry & Neurology Psychiatry; PCP Registered Nurse Psychiatric/Mental Health, Adult; Visit Provider Clinical Nurse Specialist Psychiatric/Mental Health, Adult
DX: F31.2 Bipolar disorder, current episode manic severe with psychotic features (principal); D68.51 Activated protein C resistance; E11.9 Type 2 diabetes mellitus without complications; Z68.44 Body mass index [BMI] 60.0-69.9, adult; E78.5 Hyperlipidemia, unspecified; I10 Essential (primary) hypertension; J45.909 Unspecified asthma, uncomplicated; Z91.148 Patient's other noncompliance with medication regimen for other reason; E66.01 Morbid (severe) obesity due to excess calories; Z20.822 Contact with and (suspected) exposure to COVID-19; Z79.899 Other long term (current) drug therapy
CPT/HCPCS: 0241U; 36415; 80053; 80061; 80164; 81001; 81025; 82607; 82746; 82947; 83036; 84443; 85025; 87086; 87088; 87186; 87480; 87510; 87660; 93005; 93970

== ENCOUNTER → 2023-06-04 22:55 | Outpatient (BNV) | payer OTHER, SELFPAY | PROVIDERS: Admitting Provider Psychiatry & Neurology Psychiatry; PCP Registered Nurse Psychiatric/Mental Health, Adult; Visit Provider Student in an Organized Health Care Education/Training Program | DX: Z02.2 Encounter for examination for admission to residential institution (principal) | CPT/HCPCS: 99429; 99499 ==

== ENCOUNTER → 2023-06-04 22:55 | Outpatient (BNV) | payer OTHER, SELFPAY | PROVIDERS: Admitting Provider Psychiatry & Neurology Psychiatry; PCP Registered Nurse Psychiatric/Mental Health, Adult; Visit Provider Social Worker | DX: F31.2 Bipolar disorder, current episode manic severe with psychotic features (principal) | CPT/HCPCS: 90792; 99231; 99232; 99239 ==

== ENCOUNTER 2023-06-28 09:38 | Outpatient (REF) | payer OTHER, SELFPAY ==
[2023-06-28 10:07] LABS: MANUAL DIFF FLAG NO
[2023-06-28 10:40] LABS: Basophils Absolute Auto 0.1 X10*3/uL (0.0-0.2); Basophils Percent Auto 0.5 % (0-2); Eosinophils Absolute Auto 0.1 X10*3/uL (0.0-0.4); Eosinophils Percent Auto 1.2 % (0-4); Hematocrit 42.5 % (37.0-47.0); Hemoglobin 13.5 g/dl (12.0-16.0); Imm Gran Abs Auto 0.05 X10*3/uL (0.00-0.03); Imm Gran Pct Auto 0.5 % (0.0-0.4); Lymphocytes Absolute Auto 2.6 X10*3/uL (1.2-4.9); Lymphocytes Percent Auto 27.2 % (20-40); Mean Corpuscular HGB Conc 31.8 g/dl (31.0-35.0); Mean Corpuscular Hemoglobin 27.2 pg (27.0-33.0); Mean Corpuscular Volume 85.5 fL (80.0-98.0); Monocytes Absolute Auto 0.5 X10*3/uL (0.1-1.2); Monocytes Percent Auto 5.5 % (2-11); Neutrophils Absolute Auto 6.1 x10*3/uL (2.0-8.3); Neutrophils Percent Auto 65.1 % (45-73); Platelet Count 211 X10*3/uL (160-400); Red Blood Count 4.97 X10*6/uL (4.20-5.50); Red Cell Distribution Width 14.2 % (11.0-16.0); White Blood Count 9.4 X10*3/uL (4.8-10.8)
[2023-06-28 11:09] LABS: Valproate 65.9 mcg/mL (50.0-100.0)
[2023-06-28 11:11] LABS: Alanine Aminotransferase 8 U/L (0-31); Albumin Level 4.1 g/dL (3.5-5.0); Alkaline Phosphatase 62 U/L (39-117); Anion Gap 16 (12-20); Aspartate Amino Transferase 11 U/L (5-31); Bilirubin Total 0.5 mg/dL (0.0-1.0); Blood Urea Nitrogen 11 mg/dL (9-16); Calcium 9.8 mg/dL (8.4-10.2); Carbon Dioxide 28 mmol/L (22-29); Chloride 105 mmol/L (96-108); Estimated Glomerular Filt Rate > 60; Glucose Random 149 mg/dL (60-115); Potassium 4.5 mmol/L (3.3-5.1); Sodium 144 mmol/L (135-145); Total Protein 7.6 g/dL (6.5-8.0)
--- NOTE | 2023-07-06 19:19 | P.EN_ITS ---
Documented by User: Rianna Judson Santos APRN 07/06/23 19:31 Event Note Date of Service: 07/06/23 Event Note: Care discussed with father on 07/05/23. Father will leave for vacation in [place] this week. Mother will stay with pt. --Olanzapine has been decreased and tapered due to sedation --Labs last week WNL --Pt remains sedate, discussed tapering Valproate from 1500 mg daily to 1250 mg daily--dosing 500 mg a.m. and 750 mg p.m. --Father will implement --Pt will be seen at [facility] for psychopharm next week. --Father will tell mother/pt she may call present if there are concerns about brendon prior to OP med appt. Time Spent With Patient Time: Total time managing care of this patient today ____ minutes. Documented by User: James Argueta MD 08/05/23 11:44 Event Note Date of Service: 08/05/23
== END 2023-06-28 09:39 | disposition home or self-care (01) ==
LOC: HO.LAB 09:38
PROVIDERS: PCP Internal Medicine; Visit Provider Clinical Nurse Specialist Psychiatric/Mental Health, Adult
DX: F31.2 Bipolar disorder, current episode manic severe with psychotic features (principal)
CPT/HCPCS: 36415; 80053; 80164; 85025

== ENCOUNTER 2023-07-07 09:05 | Outpatient (AMB) | payer OTHER, SELFPAY ==
--- NOTE | 2023-07-07 08:51 | MHC.PC.OV ---
Intake Visit Reasons: Medication F/U Allergies kiwi [KIWI] Allergy (Mild, Verified 07/07/23 10:07) HIVES mold [MOLD EXTRACTS*] Allergy (Mild, Verified 07/07/23 10:07) HIVES Medication List - Last Reconciled 07/07/23 by Jose Estes MD albuterol sulfate 90 mcg/actuation (ProAir HFA) 2 inhalations inhalation QID PRN [Align 1 tab PO DAILY] atenolol 50 mg PO DAILY atorvastatin 20 mg PO BEDTIME diphenhydramine HCl 50 mg PO BID PRN divalproex 250 mg PO BID divalproex 500 mg PO BID Tobacco use date assessed: 07/07/23 Dental Screening Dental Screen Date: 07/07/23 Did you have a dental visit in the last 12 months?: No Did you have a dental problem in the last 6 months where you did not have access to dental care?: No Was dental information given to patient?: Patient has dentist HPI Medication F/U HPI Details Patient is 32-year-old female this is a telemedicine video conference Last time patient seen was early this year after that she could not come in for follow-up Recently patient was admitted at [facility] secondary to flare up of bipolar disorder She is doing well now currently patient is on Depakote 250 mg b.i.d. and Latuda 80 mg Hypertension: Patient is on atenolol 50 mg she needs a refill, patient tells me that her blood pressure is running 120 x 80 she just checked this morning Diabetes mellitus: Patient is on no medication currently patient says that it some medical that her diabetes has been controlled without medication She had labs done recently which shows random glucose of 149 I will add hemoglobin A1c when she will have repeat labs in 3 months. Patient is morbidly obese and is still struggling with weight She is also on atorvastatin 20 mg for lipid control Follow-up 3 and half month labs are needed before visit [facility] Medical History Hypertension, essential Uncontrolled type 2 diabetes mellitus with hyperglycemia Leg edema Obesity, morbid Asthma Factor 5 Leiden mutation, heterozygous Seasonal asthma Surgical History History of ovarian cyst History of wisdom tooth extraction Family History Father HTN (hypertension) Diabetes mellitus Mother Afib Maternal Grandfather No problems noted. Maternal Grandmother No problems noted. Paternal Grandmother Breast cancer Paternal Grandfather No problems noted. Sister No problems noted. Social History Household Members: Family Housing: House Do you presently have visiting nurse or other home services: No Alcohol intake: never Patient Tobacco Use Status: Former Tobacco user Years Smoked: 3 yrs e-Cigarette/Vaping Use: Never Used Second Hand Smoke Exposure: No service: No Current occupational status: employed Sexual orientation: Don't Know Cognitive needs: No Hearing needs: No Vision needs: Yes Questionnaire Thrive Questionnaire Date Thrive assessed: 02/10/22 AUDIT C Alcohol Use Questionnaire (AUDIT-C) 1. How often do you have a drink containing alcohol?: Never 3. How often do you have six or more drinks on one occasion?: Never Total Score: 0 Score Reviewed/Action Taken: Yes SOLE-7 AMB Questionnaire SOLE-7 Date SOLE - 7 assessed: 02/10/22 Source: Developed by Drs. Ricco Gunter, Lashonda Munroe, Nate Galvin and colleagues, with an educational giovana from [employer]. Review of Systems Const Denies chills and Denies fever(s) ENT Denies epistaxis and Denies nasal discharge Card Denies chest pain Resp Denies chest congestion, Denies cough and Denies hemoptysis GI Denies diarrhea and Denies nausea Skin/Breast Denies rash Neuro Reports no additional complaints Psych Reports no additional complaints Endo Reports no additional complaints Physical exam (Primary Care) Tobacco/Smoking Status: Tobacco use Status Tobacco use date assessed 07/07/23 07/07/23 08:52 Patient Tobacco Use Status Former Tobacco user 07/07/23 08:52 e-Cigarette/Vaping Use Never Used 07/07/23 08:52 Thrive Assessment: Date of Thrive Assessment Date Thrive assessed 02/10/22 07/07/23 08:52 Telehealth Telehealth Location of provider rendering services: practice address Location of patient: address on file Patient Identification confirmed using: Name, : Yes Telehealth method: video Patient verbally consented to treatment: Yes Patient verbally consented to billing insurance company: Yes Patient informed of any privacy concerns related to visit: Yes Minutes spent on Phone/Video with Pt.: 16 Assessment and Plan Assessment & Plan (1) Diabetes 1.5, managed as type 2: Code(s): E13.9 - Other specified diabetes mellitus without complications (2) Bipolar disorder with psychotic features: Code(s): F31.9 - Bipolar disorder, unspecified (3) Morbid obesity: Code(s): E66.01 - Morbid (severe) obesity due to excess calories (4) Lipid disorder: Code(s): E78.9 - Disorder of lipoprotein metabolism, unspecified (5) Hypertension, essential: Code(s): I10 - Essential (primary) hypertension Plan Patient is 32-year-old female this is a telemedicine video conference Last time patient seen was early this year after that she could not come in for follow-up Recently patient was admitted at [facility] secondary to flare up of bipolar disorder She is doing well now currently patient is on Depakote 250 mg b.i.d. and Latuda 80 mg Hypertension: Patient is on atenolol 50 mg she needs a refill, patient tells me that her blood pressure is running 120 x 80 she just checked this morning Diabetes mellitus: Patient is on no medication currently patient says that it some medical that her diabetes has been controlled without medication She had labs done recently which shows random glucose of 149 I will add hemoglobin A1c when she will have repeat labs in 3 months. Patient is morbidly obese and is still struggling with weight She is also on atorvastatin 20 mg for lipid control Follow-up 3 and half month labs are needed before visit Orders: Orders Comprehensive Met. Panel Today E13.9 - Other specified diabetes mellitus without complications, E66.01 - Morbid (severe) obesity due to excess calories, E78.9 - Disorder of lipoprotein metabolism, unspecified, F31.9 - Bipolar disorder, unspecified, I10 - Essential (primary) hypertension Hemoglobin A1c Today E13.9 - Other specified diabetes mellitus without complications, E66.01 - Morbid (severe) obesity due to excess calories, E78.9 - Disorder of lipoprotein metabolism, unspecified, F31.9 - Bipolar disorder, unspecified, I10 - Essential (primary) hypertension Complete Blood Count Auto Diff Today E13.9 - Other specified diabetes mellitus without complications, E66.01 - Morbid (severe) obesity due to excess calories, E78.9 - Disorder of lipoprotein metabolism, unspecified, F31.9 - Bipolar disorder, unspecified, I10 - Essential (primary) hypertension Microalbumin, Random (w Creat) Today E13.9 - Other specified diabetes mellitus without complications, E66.01 - Morbid (severe) obesity due to excess calories, E78.9 - Disorder of lipoprotein metabolism, unspecified, F31.9 - Bipolar disorder, unspecified, I10 - Essential (primary) hypertension LDL Cholesterol Direct Today E13.9 - Other specified diabetes mellitus without complications, E66.01 - Morbid (severe) obesity due to excess calories, E78.9 - Disorder of lipoprotein metabolism, unspecified, F31.9 - Bipolar disorder, unspecified, I10 - Essential (primary) hypertension Medications: Refilled atenolol 50 mg PO DAILY 90 tabs 0RF Coding Level of Care Code Tele Est Pt Level 4 (83221) Diagnoses Diabetes 1.5, managed as type 2 E13.9 Bipolar disorder with psychotic features F31.9 Morbid obesity E66.01 Lipid disorder E78.9 Hypertension, essential I10
== END 2023-07-07 11:30 | disposition home or self-care (01) ==
PROVIDERS: PCP Internal Medicine; Visit Provider Internal Medicine
DX: E13.9 Other specified diabetes mellitus without complications (principal); F31.9 Bipolar disorder, unspecified; E66.01 Morbid (severe) obesity due to excess calories; E78.9 Disorder of lipoprotein metabolism, unspecified; I10 Essential (primary) hypertension
CPT/HCPCS: 99214

== ENCOUNTER 2023-07-21 17:51 | Inpatient (IN) | payer OTHER, SELFPAY ==
--- NOTE | ~2023-07-21 | XR_ITS ---
EXAMINATION: XR ANKLE, LEFT CLINICAL INFORMATION: Pain status-post fall; question fracture. COMPARISON: Left foot radiographs dated 11/07/2020. TECHNIQUE: AP, lateral, and mortise views of the left ankle. FINDINGS: Bony alignment and mineralization are normal. The ankle mortise is intact. At the distal margin of the medial malleolus, a small ovoid ossific density is seen which may represent an avulsion fracture fragment or chronic accessory ossification center. No dislocation or joint effusion is seen. Boehler's angle is normal. There are large posterior and small plantar calcaneal spurs. There is generalized soft tissue swelling. No soft tissue gas or foreign body is seen. XR/XR ankle LT min 3V IMPRESSION: 1. A small avulsion fragment of indeterminate chronicity versus accessory ossification center is seen adjacent to the medial malleolus. Please correlate clinically. 2. There is generalized soft tissue swelling of the left ankle. 3. There are calcaneal spurs.
--- NOTE | ~2023-07-21 | XR_ITS ---
EXAMINATION: XR ANKLE, RIGHT CLINICAL INFORMATION: Pain. COMPARISON: None available. TECHNIQUE: AP, lateral, and mortise views of the right ankle. FINDINGS: The bone mineralization is within normal limits. The joint spaces are maintained. There is no fracture. Lobular Achilles tendon calcification/enthesophytes are noted. There is soft tissue swelling about the ankle most prominent laterally. XR/XR ankle RT min 3V IMPRESSION: No acute osseous abnormality. Achilles tendon calcification/enthesophytes. Soft tissue swelling about the ankle.
--- NOTE | ~2023-07-21 | XR_ITS ---
EXAMINATION: XR SINUSES CLINICAL INFORMATION: Covid, sinus pain. COMPARISON: None available. TECHNIQUE: 3 views of the sinuses were obtained. FINDINGS: Paranasal sinuses appear clear without air-fluid levels. No fractures are identified. No radiodense foreign bodies. XR/XR sinus min 3V IMPRESSION: Unremarkable examination.
--- NOTE | 2023-07-21 18:48 | P.CONHOSP_ITS ---
History of Present Illness Data of Consult Service Date: 07/21/23 Primary Care Provider: Unknown Physician HPI Reason for consult: Admission H&P Pt is a 32-year-old female with a PMH significant for diet controlled diabetes type 2, HTN, HLD, factor 5 deficiency, seasonal asthma, obesity class 3, and bipolar disorder?who is admitted to psychiatry unit for visual hallucinations and paranoia. Patient apparently has been staying with her father but does not feel safe there since she believes her rooms are bugged . Medical consult for admission H&P. ?Attempted to see and examine pt, but she is found to be actively manic and not easily directable. Pt is yelling out, screaming/swearing at staff and other patients, singing, and exposing herself. Pt is incapable of providing accurate HPI or meaningfully participating in examination. Review of Systems Review of Systems: Unable to obtain due to patient's mentation [facility] Medical History Hypertension, essential Uncontrolled type 2 diabetes mellitus with hyperglycemia Leg edema Obesity, morbid Asthma Factor 5 Leiden mutation, heterozygous Seasonal asthma Family History Father HTN (hypertension) Diabetes mellitus Mother Afib Maternal Grandfather No problems noted. Maternal Grandmother No problems noted. Paternal Grandmother Breast cancer Paternal Grandfather No problems noted. Sister No problems noted. Surgical History History of ovarian cyst History of wisdom tooth extraction Social History Household Members: Other Household Members Other:: father Housing: House Do you presently have visiting nurse or other home services: No Unable to assess alcohol history related to: Unknown Alcohol intake: never Patient Tobacco Use Status: Former Tobacco user Tobacco use type: Cigarette Years Smoked: 3 yrs Smoked in Last 30 Days: No e-Cigarette/Vaping Use: Never Used Use of substances other than those prescribed or required for medical reasons: No Currently Displaying Signs/Symptoms of Drug Intoxication Withdrawal: No Spiritual Healthcare Practices: Unknown; pt unable to participate due to mental status Rastafari Healthcare Practices: Unknown; pt unable to participate due to mental status Cultural Healthcare Practices: Unknown; pt unable to participate due to mental status Advance Directives: No Advance Directives Information Provided: No Do you have thoughts of harming others: None Do you have a plan to hurt others: No Plan Recently lost weight without trying: Unsure Eating poorly because of decreased appetite: No Nutrition Risks: No Nutritional Risk Patient : No : No Poor oral hygiene: No service: No Current occupational status: employed Sexual orientation: Don't Know Cognitive needs: No Hearing needs: No Vision needs: Yes Meds Allergies Allergy/AdvReac Type Severity Reaction Status Date / Time kiwi [KIWI] Allergy Mild HIVES Verified 07/07/23 10:07 mold [MOLD EXTRACTS*] Allergy Mild HIVES Verified 07/07/23 10:07 Active Medications: Current Medications Acetaminophen (Acetaminophen 325 Mg Tablet) 650 mg PO Q6H PRN PRN Reason: Headache/Pain Mild Scale (1-3) Al Hydroxide/Mg Hydroxide (Magnesium Hydrox/Alum Hydrox 30 Ml Oral.Susp) 30 ml PO Q6H PRN PRN Reason: Heartburn/Nausea Hydroxyzine HCl (Hydroxyzine Hcl 25 Mg Tablet) 25 mg PO Q6H PRN PRN Reason: Anxiety Magnesium Hydroxide (Milk Of Magnesia 30 Ml Oral.Susp) 30 ml PO DAILY PRN PRN Reason: Constipation Trazodone HCl (Trazodone Hcl 50 Mg Tablet) 50 mg PO BEDTIME MRX1 PRN PRN Reason: Insomnia Home Medications Medication Instructions Recorded Confirmed Last Taken Type Banophen 50 mg PO BID PRN Anxiety 07/21/23 07/21/23 Unknown History Latuda 80 mg PO DAILY 07/21/23 07/21/23 Unknown History trazodone 100 mg PO BEDTIME 07/21/23 07/21/23 Unknown History Physical Exam Vital Signs and Narrative: Unable to perform due to patient's mentation Assessment and Plan (1) Medical clearance for psychiatric admission: Status: Acute Plan Pt is a 32-year-old female with a PMH significant for diet controlled diabetes type 2, HTN, HLD, factor 5 deficiency, seasonal asthma, obesity class 3, and bipolar disorder?who is admitted to [facility] psychiatry unit for visual hallucinations and paranoia. Patient apparently has been staying with her father but does not feel safe there since she believes her rooms are bugged . Medical consult for admission H&P. Mood disorder Plan as per Psychiatry HTN Well-controlled on current therapies Continue atenolol HLD Continue statin Seasonal allergies Continue home inhalers p.r.n. Diet-controlled diabetes type 2 Followed by endocrinology outpatient Diabetic diet Factor 5 deficiency Not on any current medication Followed by Hematology outpatient Obesity class 3 Low-fat diet, encourage ambulation as much as possible Thank you for allowing us to participate in the care of this patient. Signing off at this time. Please let us know if there are any acute complaints or questions.
[2023-07-21 21:50] VITALS: BP 139/87; PULSE 107; TEMP 36.7
[2023-07-22 02:53] VITALS: BMI 62.8
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
[2023-07-22] MEDS: HaloperidoL 5 MG TABLET PO ×2 (08:28→20:50)
[2023-07-22] MEDS: atenoloL 50 MG TABLET PO (08:28)
[2023-07-22 09:00] VITALS: BP 141/81; PULSE 87; RESP 16; TEMP 36.8; O2SAT 99
[2023-07-22] MEDS: OLANZapine ODT 10 MG TAB.RAPDIS 20 MG TRANSLINGU (10:06)
[2023-07-22] MEDS: OLANZapine ODT 10 MG TAB.RAPDIS TRANSLINGU ×2 (10:24→20:50)
[2023-07-22] MEDS: OLANZapine 10 MG VIAL 20 MG IM (12:05)
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
--- NOTE | 2023-07-22 16:12 | P.HPPS_ITS ---
HPI Date of Service: 07/22/23 Chief Complaint: Bipolar disorder with psychosis Sources of Information: patient interviewed, chart reviewed and crisis/core team assessment reviewed HPI Subjective Notes: Section 12B Healthcare Proxy: No Guardianship: No Medical Problems Affecting Mental Status: No Narrative: 32 yo female, history of bipolar disorder, transfer from [facility] with acute brendon. Pt was recently hospitalized at [facility]. She was stabilized on Depakote and Olanzapine. Post discharge she was able to stop Olanzapine and maintain at 1250mg depakote daily. Recently, her father traveled to [place], leaving the pt at home with sister. Mother visited from [place] and encouraged med non compliance. When father returned from [place], he required hospital admission and is now in SNF until 08/28/23 for IVABX. Pt's schedule is interrupted with this change and along with non compliance she became acutely manic, requiring crisis and emergency intervention at her home. Today, she is labilie, loud, inappropriate, assaultive, requiring 20 mg IM Olanzapine in chemical restraint with good effect. She is currently on a Section XIIB and is wanting discharge. Past Psychiatric History: Inpatient: [facility] 06/27; APTU 01/2023 OP: [facility] [phone] Suicide attempts: none Medication trials: haldol, depakote, olanzapine, latuda Medical Evaluation Reviewed: Yes [facility] Medical History Hypertension, essential Uncontrolled type 2 diabetes mellitus with hyperglycemia Leg edema Obesity, morbid Asthma Factor 5 Leiden mutation, heterozygous Seasonal asthma Surgical History History of ovarian cyst History of wisdom tooth extraction Family History: maternal family of psychosis, ECT treatments Social History: Pt grew up with both parents until they . She currently lives with her father. Not , no children. 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 Substance History: denies Trauma History: not disclosed Diagnostics Vital Signs (24Hr): Vital Signs - 24 hr 07/21/23 21:50 07/22/23 09:00 Temperature 98.0 F 98.2 F Pulse Rate 107 H 87 Respiratory Rate 16 Blood Pressure 139/87 141/81 H Pulse Oximetry 99 BMI result Body Mass Index 62.8 Meds/Allergies Meds Home Medications Medication Instructions Recorded Confirmed Type Banophen 50 mg PO BID PRN Anxiety 07/21/23 07/21/23 History Latuda 80 mg PO DAILY 07/21/23 07/21/23 History trazodone 100 mg PO BEDTIME 07/21/23 07/21/23 History Allergies Allergies Allergy/AdvReac Type Severity Reaction Status Date / Time kiwi [KIWI] Allergy Mild HIVES Verified 07/07/23 10:07 mold [MOLD EXTRACTS*] Allergy Mild HIVES Verified 07/07/23 10:07 Mental Status Exam Mental Status Exam Patient Appearance: Fatigued, Disheveled, Inappropriate and Bizarre Patient Orientation: Person and Place Level of Consciousness: Restless and Alert Patient Behavior: Talkative, Hyperactive, Suspicious, Hypersexual, Aggressive, Restless, Belligerent, Wandering, Resistive to Care, Distractible, Confused, Good Eye Contact and Impulsive Mood Description: Suspicious, Hostile, Labile and Angry Affect Description: Labile Patient Cognition Impaired: Yes Ability to Follow Directions: Poor Speech Pattern: Perseverating, Spontaneous Speech, Rambling, Rapid, Excessive, Animated, Loud, Pressured and Includes Profanity Memory Description: Remote Impaired Hallucinations: None and Auditory Delusions: Paranoid Ideation and Present Perceptual Disturbances: Depersonalization and Derealization Thought Process: Racing, Illogical, Distracted and Evasive Thought Content: positive for Flight of Ideas, positive for Racing, positive for Perseveration, positive for Preoccupation, positive for Tangential and positive for Disorganized Depressive Symptoms: Insomnia, Increased Irritability, Difficulty Sleeping, Un happiness, Low Self Esteem and Difficulty Concentrating Abnormal Motor Activity Signs and Symptoms: Aggression, Agitation, Hyperactivity and Restlessness Judgement: Poor Assessment & Plan Assessment & Plan (1) Bipolar disorder with psychotic features: Status: Acute Code(s): F31.9 - Bipolar disorder, unspecified Plan 32 yo female, acute brendon due to medication noncompliance. Zydis 10 mg bid Collateral contact Continue remainder of regime. Pt recently stabilized on 1250 Depakote, taper of Olanzapine and Latuda in place at 60 mg Patient educated on: other Informed Consent: does not understand Reason for continued inpatient stay Substantial Risk for: rapid decompensation Statement Statement: I have reviewed the history and physical and performed a pertinent examination on my patient. No changes have occurred unless specified. If the History and Physical was not performed prior to admission, the Hospitalist's service will be consulted for completing the admission physical. Time Spent With Patient Time: Total time managing care of this patient today ____ minutes.
[2023-07-22 18:00] VITALS: BP 165/78; PULSE 103; RESP 16; TEMP 36.6; O2SAT 93
[2023-07-22] MEDS: Lurasidone HCl 20 MG TABLET 60 MG PO (20:49)
[2023-07-22] MEDS: Benztropine Mesylate 0.5 MG TABLET PO (20:50)
[2023-07-22] MEDS: Divalproex Sodium 250 MG TABLET.DR 750 MG PO (20:50)
[2023-07-23 08:47] VITALS: BP 137/91; PULSE 102; TEMP 36.8; O2SAT 96
[2023-07-23] MEDS: HaloperidoL 5 MG TABLET PO ×2 (09:08→23:33)
[2023-07-23] MEDS: OLANZapine ODT 10 MG TAB.RAPDIS TRANSLINGU ×2 (09:08→22:04)
[2023-07-23] MEDS: atenoloL 50 MG TABLET PO (09:08)
[2023-07-23] MEDS: hydrOXYzine HCL 25 MG TABLET PO (09:09)
--- NOTE | 2023-07-23 09:28 | P.PNPSI_ITS ---
Subjective Subjective Date of Service: 07/23/23 Reason For Visit: Bipolar disorder with psychosis Interim History: Met with patient; discussed with team; reviewed chart Patient remains floridly manic, yelling in the milieu, disorganized; took some of her medications were refuse Depakote. On approach patient stares, remains with disorganized speech and difficult with which to engage Mental Status Exam Mental Status Exam Patient Appearance: Disheveled, Inappropriate and Bizarre Patient Orientation: Person and Place Level of Consciousness: Restless and Alert Patient Behavior: Talkative, Hyperactive, Suspicious, Hypersexual, Aggressive, Restless, Belligerent, Wandering, Resistive to Care, Distractible, Confused, Good Eye Contact (Though often staring) and Impulsive Mood Description: Euphoric, Suspicious, Hostile, Labile and Angry Affect Description: Labile Patient Cognition Impaired: Yes Ability to Follow Directions: Poor Speech Pattern: Perseverating, Spontaneous Speech, Rambling, Rapid, Excessive, Animated, Loud, Pressured, Includes Profanity and Long Pauses Memory Description: Remote Impaired Hallucinations: Auditory Delusions: Paranoid Ideation and Present Perceptual Disturbances: Depersonalization and Derealization Thought Process: Racing, Illogical, Distracted and Evasive Thought Content: positive for Flight of Ideas, positive for Racing, positive for Perseveration, positive for Preoccupation, positive for Tangential and positive for Disorganized Depressive Symptoms: Insomnia, Increased Irritability, Difficulty Sleeping, Unhappiness, Low Self Esteem and Difficulty Concentrating Abnormal Motor Activity Signs and Symptoms: Aggression, Agitation, Hyperactivity and Restlessness Judgement: Poor Judgement and Insight: Impaired Diagnostics Vital Signs (24Hr): Vital Signs - 24 hr 07/22/23 18:00 07/23/23 08:47 Temperature 97.9 F 98.2 F Pulse Rate 103 H 102 H Respiratory Rate 16 Blood Pressure 165/78 H 137/91 H Pulse Oximetry 93 96 Oxygen Delivery Method Room Air Room Air BMI result Body Mass Index 62.8 Medications Medications Current Medications Acetaminophen (Acetaminophen 325 Mg Tablet) 650 mg PO Q6H PRN PRN Reason: Headache/Pain Mild Scale (1-3) Al Hydroxide/Mg Hydroxide (Magnesium Hydrox/Alum Hydrox 30 Ml Oral.Susp) 30 ml PO Q6H PRN PRN Reason: Heartburn/Nausea Atenolol (Atenolol 50 Mg Tablet) 50 mg PO DAILY [facility]; Protocol Last Admin: 07/23/23 09:08 Dose: 50 mg Benztropine Mesylate (Benztropine Mesylate 0.5 Mg Tablet) 0.5 mg PO TID PRN PRN Reason: Extrapyramidal Effects Last Admin: 07/22/23 20:50 Dose: 0.5 mg Divalproex Sodium (Divalproex Sodium 250 Mg Tablet.Dr) 750 mg PO BID [facility] Last Admin: 07/23/23 09:16 Dose: Not Given Haloperidol (Haloperidol 5 Mg Tablet) 5 mg PO BID [facility] Last Admin: 07/23/23 09:08 Dose: 5 mg Hydroxyzine HCl (Hydroxyzine Hcl 25 Mg Tablet) 25 mg PO Q6H PRN PRN Reason: Anxiety Last Admin: 07/23/23 09:09 Dose: 25 mg Lurasidone HCl (Lurasidone Hcl 20 Mg Tablet) 60 mg PO BEDTIME [facility] Last Admin: 07/22/23 20:49 Dose: 60 mg Magnesium Hydroxide (Milk Of Magnesia 30 Ml Oral.Susp) 30 ml PO DAILY PRN PRN Reason: Constipation Olanzapine (Olanzapine Odt 10 Mg Tab.Rapdis) 10 mg TRANSLINGU BID [facility] Last Admin: 07/23/23 09:08 Dose: 10 mg Trazodone HCl (Trazodone Hcl 50 Mg Tablet) 50 mg PO BEDTIME MRX1 PRN PRN Reason: Insomnia Allergies Allergies Allergy/AdvReac Type Severity Reaction Status Date / Time kiwi [KIWI] Allergy Mild HIVES Verified 07/07/23 10:07 mold [MOLD EXTRACTS*] Allergy Mild HIVES Verified 07/07/23 10:07 Assessment & Plan Assessment & Plan (1) Medical clearance for psychiatric admission: Status: Acute Code(s): Z00.8 - Encounter for other general examination Plan Pt is a 32-year-old female with a PMH significant for Bipolar I disorder, currently manic, diet controlled diabetes type 2, HTN, HLD, factor 5 deficiency, seasonal asthma, obesity class 3, admitted to [address], [facility]. Hospital course: 07/23 patient remains floridly manic; took Haldol, Zyprexa but refuse Depakote; will change to Depakote Sprinkles and make 1 time dosing to see if can improve adherence. Apparently Pt had been recently stabilized Depakote PLAN: START Depakote DR [place] 1000 mg q.h.s.; patient refusing tablet Zyprexa; also will schedule at bedtime to help with increased adherence DC Depakote 750 b.i.d.; patient has been refusing Continue Haldol 5 mg b.i.d. Continue Zyprexa 10 mg b.i.d. Continue Latuda 60 mg at bedtime Continue Atenolol 50 mg daily HTN Well-controlled on current therapies Continue atenolol HLD Continue statin Seasonal allergies Continue home inhalers p.r.n. Diet-controlled diabetes type 2 Followed by endocrinology outpatient Diabetic diet Factor 5 deficiency Not on any current medication Followed by Hematology outpatient Reason for continued inpatient stay Substantial Risk for: inability to function Time Spent With Patient Time: Total time managing care of this patient today ____ minutes.
[2023-07-23 22:10] VITALS: BP 140/63; PULSE 102; TEMP 36.7; O2SAT 96
[2023-07-23] MEDS: Lurasidone HCl 20 MG TABLET 60 MG PO (23:32)
[2023-07-23] MEDS: Divalproex Sodium Sprinkles 125 MG CAP.DR.SPR 1000 MG PO (23:37)
[2023-07-24 08:00] VITALS: BP 139/82; PULSE 103; TEMP 36.2; O2SAT 100
[2023-07-24] MEDS: atenoloL 50 MG TABLET PO (08:09)
[2023-07-24] MEDS: HaloperidoL 5 MG TABLET PO ×2 (08:09→20:46)
[2023-07-24] MEDS: hydrOXYzine HCL 25 MG TABLET PO (08:09)
[2023-07-24] MEDS: OLANZapine ODT 10 MG TAB.RAPDIS TRANSLINGU ×2 (08:09→20:46)
--- NOTE | 2023-07-24 11:30 | P.PNPSI_ITS ---
Subjective Subjective Date of Service: 07/24/23 Reason For Visit: Bipolar disorder with psychosis Interim History: Met with patient; discussed with team Patient took Depakote at bedtime last night and slept through the night. She says she is feeling little better. More calm today, not yelling, still disorganized but less so, and able to have more of an appropriate conversation. Showered Patient asked if there was a Ofelia chair available so she could sleep in it; mother also called administration asking for same thing. Senior Sales Executive discussed with Nursing who called extrusion press supervisor to see if available Mental Status Exam Mental Status Exam Narrative: Pt is alert and oriented; behavior is still disorganized but much less so, more calm and friendly; not yelling in milieu; dressed in casual attire with unkempt hair but improved hygiene and took shower; mood is described as good and affect congruent; eye contact appropriate; Speech much more of a normal rate, volume and prosody; some mild to moderate psychomotor agitation, but much less so; thought process can be goal oriented; can also be distracted; Thought content is on tx and other various, random things that come to mind; otherwise more able to have relevant conversation; still some delusional ideations; no SI/HI. Seems Internally preoccupied Patients insight and judgment impaired but improving Diagnostics Vital Signs (24Hr): Vital Signs - 24 hr 07/23/23 22:10 07/24/23 08:00 Temperature 98.0 F 97.2 F Pulse Rate 102 H 103 H Blood Pressure 140/63 H 139/82 Pulse Oximetry 96 100 Oxygen Delivery Method Room Air Room Air BMI result Body Mass Index 62.8 Medications Medications Current Medications Acetaminophen (Acetaminophen 325 Mg Tablet) 650 mg PO Q6H PRN PRN Reason: Headache/Pain Mild Scale (1-3) Al Hydroxide/Mg Hydroxide (Magnesium Hydrox/Alum Hydrox 30 Ml Oral.Susp) 30 ml PO Q6H PRN PRN Reason: Heartburn/Nausea Atenolol (Atenolol 50 Mg Tablet) 50 mg PO DAILY [facility]; Protocol Last Admin: 07/24/23 08:09 Dose: 50 mg Benztropine Mesylate (Benztropine Mesylate 0.5 Mg Tablet) 0.5 mg PO TID PRN PRN Reason: Extrapyramidal Effects Last Admin: 07/22/23 20:50 Dose: 0.5 mg Divalproex Sodium (Divalproex Sodium Sprinkles 125 Mg ) 1,000 mg PO BEDTIME [facility] Last Admin: 07/24/23 00:58 Dose: Not Given Haloperidol (Haloperidol 5 Mg Tablet) 5 mg PO BID [facility] Last Admin: 07/24/23 08:09 Dose: 5 mg Hydroxyzine HCl (Hydroxyzine Hcl 25 Mg Tablet) 25 mg PO Q6H PRN PRN Reason: Anxiety Last Admin: 07/24/23 08:09 Dose: 25 mg Lurasidone HCl (Lurasidone Hcl 20 Mg Tablet) 60 mg PO BEDTIME [facility] Last Admin: 07/24/23 00:59 Dose: Not Given Magnesium Hydroxide (Milk Of Magnesia 30 Ml Oral.Susp) 30 ml PO DAILY PRN PRN Reason: Constipation Olanzapine (Olanzapine Odt 10 Mg Tab.Rapdis) 10 mg TRANSLINGU BID [facility] Last Admin: 07/24/23 08:09 Dose: 10 mg Trazodone HCl (Trazodone Hcl 50 Mg Tablet) 50 mg PO BEDTIME MRX1 PRN PRN Reason: Insomnia Allergies Allergies Allergy/AdvReac Type Severity Reaction Status Date / Time kiwi [KIWI] Allergy Mild HIVES Verified 07/07/23 10:07 mold [MOLD EXTRACTS*] Allergy Mild HIVES Verified 07/07/23 10:07 Assessment & Plan Assessment & Plan (1) Medical clearance for psychiatric admission: Status: Acute Code(s): Z00.8 - Encounter for other general examination Plan Pt is a 32-year-old female with a PMH significant for Bipolar I disorder, currently manic, diet controlled diabetes type 2, HTN, HLD, factor 5 deficiency, seasonal asthma, obesity class 3, admitted to [address] Hospital course: 07/23 patient remains floridly manic; took Haldol, Zyprexa but refuse Depakote; will change to Depakote Sprinkles and make 1 time dosing to see if can improve adherence. Apparently Pt had been recently stabilized Depakote 07/24 patient took Depakote at bedtime last night and also 1 time Depakote dose today; patient much more calm, more organized; even showered today. Not yelling and milieu. Still with some delusional disorganized content -patient/mother asking if Ofelia chair available for patient to sleep in PLAN: INCREASE TO Depakote DR [place] 1500 mg q.h.s.; patient refusing tablet Zyprexa; also will schedule at bedtime to help with increased adherence (if patient initially refuses may give it any other time) DC Depakote 750 b.i.d.; patient has been refusing Continue Haldol 5 mg b.i.d. Continue Zyprexa 10 mg b.i.d. Continue Latuda 60 mg at bedtime Continue Atenolol 50 mg daily HTN Well-controlled on current therapies Continue atenolol HLD Continue statin Seasonal allergies Continue home inhalers p.r.n. Diet-controlled diabetes type 2 Followed by endocrinology outpatient Diabetic diet Factor 5 deficiency Not on any current medication Followed by Hematology outpatient Patient educated on: diagnosis Informed Consent: understands, does not understand and further education needed Reason for continued inpatient stay Substantial Risk for: inability to function Time Spent With Patient Time: Total time managing care of this patient today ____ minutes.
[2023-07-24] MEDS: Divalproex Sodium Sprinkles 125 MG CAP.DR.SPR 500 MG PO (11:44)
[2023-07-24 17:59] VITALS: BP 121/58; PULSE 94; RESP 18; TEMP 36.3; O2SAT 96
[2023-07-24] MEDS: Divalproex Sodium Sprinkles 125 MG CAP.DR.SPR 1500 MG PO (20:45)
[2023-07-24] MEDS: Lurasidone HCl 40 MG TABLET PO (20:46)
[2023-07-24] MEDS: Lurasidone HCl 20 MG TABLET PO (20:46)
[2023-07-25] MEDS: OLANZapine ODT 10 MG TAB.RAPDIS TRANSLINGU (08:03)
[2023-07-25] MEDS: hydrOXYzine HCL 25 MG TABLET PO (08:03)
[2023-07-25] MEDS: HaloperidoL 5 MG TABLET PO (08:03)
[2023-07-25] MEDS: atenoloL 50 MG TABLET PO (08:03)
[2023-07-25 08:08] VITALS: BP 138/91; PULSE 98; RESP 18; TEMP 36.2; O2SAT 98
--- NOTE | 2023-07-25 09:38 | HO.PSYCHPN ---
Subjective Subjective Date of Service: 07/25/23 Reason For Visit: Bipolar disorder with psychosis Subjective Notes: Conditional Voluntary Healthcare Proxy: No Guardianship: No Medical Problems Affecting Mental Status: No Interim History: Remains labile, disorganized and unclear in her thought process. Intermittent screaming, sexual preoccupation and lability-believes at times her father has -we called together and left a message-he returned call in an attempt to reassure pt he is improving and following his treatment plan so he can return home. Delusional content regarding her health-broken bones and medical issues which are intermittent. Mother visited this afternoon. Olanzapine increase to assist with stabilization. Medication Compliance: Intermittent Side effects from medications: No Attending Groups: No Review of Systems Acute medical concerns: No Medical Review of Systems: unchanged Review of Systems Review of Systems Yes Unobtainable due to mental status Mental Status Exam Mental Status Exam Patient Appearance: Fatigued and Disheveled Patient Orientation: Person, Place and Situation Level of Consciousness: Alert Patient Behavior: Talkative, Hypersexual, Distractible and Crying Mood Description: Labile Affect Description: Labile Patient Cognition Impaired: Yes Ability to Follow Directions: Fair Speech Pattern: Perseverating, Monotone, Spontaneous Speech, Whisper, Soft-Spoken, Rapid, Excessive, No Speech, Loud, Pressured and Poor Articulation Memory Description: Remote Impaired Hallucinations: Auditory Delusions: Paranoid Ideation and Present Perceptual Disturbances: Derealization Thought Process: Racing, Illogical, Distracted and Rumination Thought Content: positive for Flight of Ideas, positive for Racing, positive for Circumstantial, positive for Perseveration, positive for Poverty of Content, positive for Preoccupation, positive for Loose Associations, positive for Thought Blocking, positive for Tangential, positive for Disorganized and positive for Suicidal Ideation (denies) Depressive Symptoms: Diff. Making Decisions, Unhappiness and Difficulty Concentrating Abnormal Motor Activity Signs and Symptoms: Agitation and Restlessness Judgement: Poor Diagnostics Vital Signs (24Hr): Vital Signs - 24 hr 07/24/23 17:59 07/25/23 08:08 Temperature 97.4 F 97.2 F Pulse Rate 94 98 Respiratory Rate 18 18 Blood Pressure 121/58 L 138/91 H Pulse Oximetry 96 98 Oxygen Delivery Method Room Air Room Air BMI result Body Mass Index 62.8 Medications Medications Current Medications Acetaminophen (Acetaminophen 325 Mg Tablet) 650 mg PO Q6H PRN PRN Reason: Headache/Pain Mild Scale (1-3) Al Hydroxide/Mg Hydroxide (Magnesium Hydrox/Alum Hydrox 30 Ml Oral.Susp) 30 ml PO Q6H PRN PRN Reason: Heartburn/Nausea Atenolol (Atenolol 50 Mg Tablet) 50 mg PO DAILY [facility]; Protocol Last Admin: 07/25/23 08:03 Dose: 50 mg Benztropine Mesylate (Benztropine Mesylate 0.5 Mg Tablet) 0.5 mg PO TID PRN PRN Reason: Extrapyramidal Effects Last Admin: 07/22/23 20:50 Dose: 0.5 mg Divalproex Sodium (Divalproex Sodium Sprinkles 125 Mg Cap.Spr) 1,500 mg PO BEDTIME [facility] Last Admin: 07/24/23 20:45 Dose: 1,500 mg Haloperidol (Haloperidol 5 Mg Tablet) 5 mg PO BID [facility] Last Admin: 07/25/23 08:03 Dose: 5 mg Hydroxyzine HCl (Hydroxyzine Hcl 25 Mg Tablet) 25 mg PO Q6H PRN PRN Reason: Anxiety Last Admin: 07/25/23 08:03 Dose: 25 mg Lurasidone HCl (Lurasidone Hcl 20 Mg Tablet) 20 mg PO BEDTIME [facility] Last Admin: 07/24/23 20:46 Dose: 20 mg Lurasidone HCl (Lurasidone Hcl 40 Mg Tablet) 40 mg PO BEDTIME [facility] Last Admin: 07/24/23 20:46 Dose: 40 mg Magnesium Hydroxide (Milk Of Magnesia 30 Ml Oral.Susp) 30 ml PO DAILY PRN PRN Reason: Constipation Olanzapine (Olanzapine Odt 10 Mg Tab.Rapdis) 20 mg TRANSLINGU BID [facility] Trazodone HCl (Trazodone Hcl 50 Mg Tablet) 50 mg PO BEDTIME MRX1 PRN PRN Reason: Insomnia Allergies Allergies Allergy/AdvReac Type Severity Reaction Status Date / Time kiwi [KIWI] Allergy Mild HIVES Verified 07/07/23 10:07 mold [MOLD EXTRACTS*] Allergy Mild HIVES Verified 07/07/23 10:07 Assessment & Plan Assessment & Plan (1) Medical clearance for psychiatric admission: Status: Acute Code(s): Z00.8 - Encounter for other general examination Plan Pt is a 32-year-old female with a PMH significant for Bipolar I disorder, currently manic, diet controlled diabetes type 2, HTN, HLD, factor 5 deficiency, seasonal asthma, obesity class 3, admitted to [facility], [facility], paranoia. Hospital course: 07/23 patient remains floridly manic; took Haldol, Zyprexa but refuse Depakote; will change to Depakote Sprinkles and make 1 time dosing to see if can improve adherence. Apparently Pt had been recently stabilized Depakote 07/24 patient took Depakote at bedtime last night and also 1 time Depakote dose today; patient much more calm, more organized; even showered today. Not yelling and milieu. Still with some delusional disorganized content -patient/mother asking if Ofelia chair available for patient to sleep in 07/25/23 Increase Olanzapine to 20 mg bid PLAN: INCREASE TO Depakote DR Sprinkles 1500 mg q.h.s.; patient refusing tablet Zyprexa; also will schedule at bedtime to help with increased adherence (if patient initially refuses may give it any other time) DC Depakote 750 b.i.d.; patient has been refusing Continue Haldol 5 mg b.i.d. Continue Zyprexa 10 mg b.i.d. Continue Latuda 60 mg at bedtime Continue Atenolol 50 mg daily HTN Well-controlled on current therapies Continue atenolol HLD Continue statin Seasonal allergies Continue home inhalers p.r.n. Diet-controlled diabetes type 2 Followed by endocrinology outpatient Diabetic diet Factor 5 deficiency Not on any current medication Followed by Hematology outpatient Patient educated on: medication risk/benefits Informed Consent: further education needed Reason for continued inpatient stay Substantial Risk for: rapid decompensation and med/psych decompensation Time Spent With Patient Time: Total time managing care of this patient today ____ minutes.
[2023-07-25 17:00] VITALS: BP 123/79; PULSE 96; RESP 16; TEMP 36.9; O2SAT 96
[2023-07-25] MEDS: Acetaminophen 325 MG TABLET 650 MG PO (18:10)
[2023-07-25] MEDS: Divalproex Sodium Sprinkles 125 MG CAP.DR.SPR 1500 MG PO (21:23)
[2023-07-25] MEDS: Lurasidone HCl 40 MG TABLET PO (21:29)
[2023-07-25] MEDS: OLANZapine ODT 10 MG TAB.RAPDIS 20 MG TRANSLINGU (21:30)
[2023-07-25] MEDS: Lurasidone HCl 20 MG TABLET PO (21:30)
--- NOTE | 2023-07-26 03:49 | PC.NURSE ---
pt reported pain under her breast after showering. assessed by rn. pt has two dime sized open areas with reddened edges under left breast.
[2023-07-26 08:00] VITALS: BP 161/106; PULSE 84; RESP 16; TEMP 36.3; O2SAT 100
[2023-07-26] MEDS: atenoloL 50 MG TABLET PO (08:53)
[2023-07-26] MEDS: OLANZapine ODT 10 MG TAB.RAPDIS 20 MG TRANSLINGU ×2 (08:53→21:17)
--- NOTE | 2023-07-26 16:05 | HO.PSYCHPN ---
Subjective Subjective Date of Service: 07/26/23 Reason For Visit: Bipolar disorder with psychosis Subjective Notes: Conditional Voluntary Healthcare Proxy: No Guardianship: No Medical Problems Affecting Mental Status: No Interim History: Some mild improvement today. Intermittent yelling and calling out. Per team, pt is more receptive when peers set limits and ask her not to yell and seems to do better with boundaries her peers ask her to maintain. Pt calmer and less distressed today. Less negative, less self-deprecating. Asks about her father, calmly. Asks if he is dying. Able to hear and accept that he is in a SNF receiving treatment and plans to be home on 08/28 when treatment is completed. Nystatin ordered for areas of reports of skin breakdown, left breast Medication Compliance: Yes Side effects from medications: No Attending Groups: No Review of Systems Acute medical concerns: No Medical Review of Systems: unchanged Mental Status Exam Mental Status Exam Patient Appearance: Fatigued and Disheveled Patient Orientation: Person, Place and Situation Level of Consciousness: Alert Patient Behavior: Talkative, Distractible and Crying Mood Description: Labile Affect Description: Labile Patient Cognition Impaired: No Ability to Follow Directions: Fair Speech Pattern: Perseverating, Spontaneous Speech, Soft-Spoken, Rapid, Loud and Pressured (at times) Memory Description: Remote Impaired Hallucinations: Auditory Delusions: Paranoid Ideation (decreasing) and Present Perceptual Disturbances: Derealization Thought Process: Racing, Distracted and Rumination Thought Content: positive for Flight of Ideas, positive for Racing, positive for Circumstantial, positive for Perseveration, positive for Preoccupation, positive for Tangential and positive for Suicidal Ideation (denies) Depressive Symptoms: Difficulty Concentrating Judgement: Poor Diagnostics Vital Signs (24Hr): Vital Signs - 24 hr 07/25/23 17:00 07/26/23 08:00 Temperature 98.4 F 97.3 F Pulse Rate 96 84 Respiratory Rate 16 16 Blood Pressure 123/79 161/106 H Pulse Oximetry 96 100 Oxygen Delivery Method Room Air Room Air BMI result Body Mass Index 62.8 Medications Medications Current Medications Acetaminophen (Acetaminophen 325 Mg Tablet) 650 mg PO Q6H PRN PRN Reason: Headache/Pain Mild Scale (1-3) Last Admin: 07/25/23 18:10 Dose: 650 mg Al Hydroxide/Mg Hydroxide (Magnesium Hydrox/Alum Hydrox 30 Ml Oral.Susp) 30 ml PO Q6H PRN PRN Reason: Heartburn/Nausea Atenolol (Atenolol 50 Mg Tablet) 50 mg PO DAILY [facility]; Protocol Last Admin: 07/26/23 08:53 Dose: 50 mg Benztropine Mesylate (Benztropine Mesylate 0.5 Mg Tablet) 0.5 mg PO TID PRN PRN Reason: Extrapyramidal Effects Last Admin: 07/22/23 20:50 Dose: 0.5 mg Divalproex Sodium (Divalproex Sodium Sprinkles 125 Mg Cap.Spr) 1,500 mg PO BEDTIME [facility] Last Admin: 07/25/23 21:23 Dose: 1,500 mg Hydroxyzine HCl (Hydroxyzine Hcl 25 Mg Tablet) 25 mg PO Q6H PRN PRN Reason: Anxiety Last Admin: 07/25/23 08:03 Dose: 25 mg Lurasidone HCl (Lurasidone Hcl 20 Mg Tablet) 20 mg PO BEDTIME [facility] Last Admin: 07/25/23 21:30 Dose: 20 mg Lurasidone HCl (Lurasidone Hcl 40 Mg Tablet) 40 mg PO BEDTIME [facility] Last Admin: 07/25/23 21:29 Dose: 40 mg Magnesium Hydroxide (Milk Of Magnesia 30 Ml Oral.Susp) 30 ml PO DAILY PRN PRN Reason: Constipation Nystatin (Nystatin Powder 15 Gm Bottle) 1 appl TOPICAL BID [facility]; Protocol Olanzapine (Olanzapine Odt 10 Mg Tab.Rapdis) 20 mg TRANSLINGU BID [facility] Last Admin: 07/26/23 08:53 Dose: 20 mg Trazodone HCl (Trazodone Hcl 50 Mg Tablet) 50 mg PO BEDTIME MRX1 PRN PRN Reason: Insomnia Allergies Allergies Allergy/AdvReac Type Severity Reaction Status Date / Time kiwi [KIWI] Allergy Mild HIVES Verified 07/07/23 10:07 mold [MOLD EXTRACTS*] Allergy Mild HIVES Verified 07/07/23 10:07 Assessment & Plan Assessment & Plan (1) Medical clearance for psychiatric admission: Status: Acute Code(s): Z00.8 - Encounter for other general examination Plan Pt is a 32-year-old female with a PMH significant for Bipolar I disorder, currently manic, diet controlled diabetes type 2, HTN, HLD, factor 5 deficiency, seasonal asthma, obesity class 3, admitted to [facility], [facility], paranoia. Hospital course: 07/23 patient remains floridly manic; took Haldol, Zyprexa but refuse Depakote; will change to Depakote Sprinkles and make 1 time dosing to see if can improve adherence. Apparently Pt had been recently stabilized Depakote 07/24 patient took Depakote at bedtime last night and also 1 time Depakote dose today; patient much more calm, more organized; even showered today. Not yelling and milieu. Still with some delusional disorganized content -patient/mother asking if Ofelia chair available for patient to sleep in 07/25/23 Increase Olanzapine to 20 mg bid 07/26/23 Continue current regime and plan. Symptoms appear to be decreasing. PLAN: INCREASE TO Depakote DR [place] 1500 mg q.h.s.; patient refusing tablet Zyprexa; also will schedule at bedtime to help with increased adherence (if patient initially refuses may give it any other time) DC Depakote 750 b.i.d.; patient has been refusing Continue Haldol 5 mg b.i.d. Continue Zyprexa 10 mg b.i.d. Continue Latuda 60 mg at bedtime Continue Atenolol 50 mg daily HTN Well-controlled on current therapies Continue atenolol HLD Continue statin Seasonal allergies Continue home inhalers p.r.n. Diet-controlled diabetes type 2 Followed by endocrinology outpatient Diabetic diet Factor 5 deficiency Not on any current medication Followed by Hematology outpatient Patient educated on: therapeutic strategies Informed Consent: does not understand and further education needed Reason for continued inpatient stay Substantial Risk for: rapid decompensation Time Spent With Patient Time: Total time managing care of this patient today ____ minutes.
[2023-07-26 18:00] VITALS: BP 157/63; PULSE 88; RESP 16
[2023-07-26] MEDS: Lurasidone HCl 40 MG TABLET PO (21:16)
[2023-07-26] MEDS: Nystatin Powder 15 GM BOTTLE 1 APPL TOPICAL (21:16)
[2023-07-26] MEDS: Lurasidone HCl 20 MG TABLET PO (21:16)
[2023-07-26] MEDS: Divalproex Sodium Sprinkles 125 MG CAP.DR.SPR 1500 MG PO (21:35)
[2023-07-27] MEDS: OLANZapine ODT 10 MG TAB.RAPDIS 20 MG TRANSLINGU ×2 (09:15→21:20)
[2023-07-27] MEDS: atenoloL 50 MG TABLET PO (09:15)
[2023-07-27 09:21] VITALS: BP 179/102; PULSE 92; RESP 18; TEMP 36.3; O2SAT 97
[2023-07-27 10:45] VITALS: BP 127/75; PULSE 89
--- NOTE | 2023-07-27 16:48 | HO.PSYCHPN ---
Subjective Subjective Date of Service: 07/27/23 Reason For Visit: Bipolar disorder with psychosis Subjective Notes: Conditional Voluntary Healthcare Proxy: No Guardianship: No Medical Problems Affecting Mental Status: No Interim History: Zeinab continues with sx of brendon, disorganization. She is less agitated with less frequent outbursts. She declines ADL's, is tangential and in need of consistent supervision. She reports she is asymptomatic stating, my mother tells me all I need to do is go back to my job and all will be fine . Reports L ankle pain-xray pending. BP remains high-discussed Tenormin increase which she agrees is a good plan. Medication Compliance: Yes Side effects from medications: No Attending Groups: No Review of Systems Acute medical concerns: No Medical Review of Systems: unchanged Review of Systems Comments: L ankle pain Mental Status Exam Mental Status Exam Patient Appearance: Fatigued and Disheveled Patient Orientation: Person, Place and Situation Level of Consciousness: Alert Patient Behavior: Talkative, Distractible and Crying Mood Description: Labile Affect Description: Labile Patient Cognition Impaired: No Ability to Follow Directions: Fair Speech Pattern: Perseverating, Spontaneous Speech, Soft-Spoken, Rapid, Loud and Pressured (at times) Memory Description: Remote Impaired Hallucinations: Auditory Delusions: Paranoid Ideation (decreasing) and Present Perceptual Disturbances: Derealization Thought Process: Racing, Distracted and Rumination Thought Content: positive for Flight of Ideas, positive for Racing, positive for Circumstantial, positive for Perseveration, positive for Preoccupation, positive for Tangential and positive for Suicidal Ideation (denies) Depressive Symptoms: Difficulty Concentrating Judgement: Poor Diagnostics Vital Signs (24Hr): Vital Signs - 24 hr 07/26/23 18:00 07/27/23 09:21 07/27/23 10:45 Temperature 97.3 F Pulse Rate 88 92 89 Respiratory Rate 16 18 Blood Pressure 157/63 H 179/102 H 127/75 Pulse Oximetry 97 Oxygen Delivery Method Room Air Room Air BMI result Body Mass Index 62.8 Medications Medications Current Medications Acetaminophen (Acetaminophen 325 Mg Tablet) 650 mg PO Q6H PRN PRN Reason: Headache/Pain Mild Scale (1-3) Last Admin: 07/25/23 18:10 Dose: 650 mg Al Hydroxide/Mg Hydroxide (Magnesium Hydrox/Alum Hydrox 30 Ml Oral.Susp) 30 ml PO Q6H PRN PRN Reason: Heartburn/Nausea Atenolol (Atenolol 50 Mg Tablet) 50 mg PO DAILY [facility]; Protocol Last Admin: 07/27/23 09:15 Dose: 50 mg Benztropine Mesylate (Benztropine Mesylate 0.5 Mg Tablet) 0.5 mg PO TID PRN PRN Reason: Extrapyramidal Effects Last Admin: 07/22/23 20:50 Dose: 0.5 mg Divalproex Sodium (Divalproex Sodium Sprinkles 125 Mg Darvin.) 1,500 mg PO BEDTIME [facility] Last Admin: 07/26/23 21:35 Dose: 1,500 mg Hydroxyzine HCl (Hydroxyzine Hcl 25 Mg Tablet) 25 mg PO Q6H PRN PRN Reason: Anxiety Last Admin: 07/25/23 08:03 Dose: 25 mg Lurasidone HCl (Lurasidone Hcl 20 Mg Tablet) 20 mg PO BEDTIME [facility] Last Admin: 07/26/23 21:16 Dose: 20 mg Lurasidone HCl (Lurasidone Hcl 40 Mg Tablet) 40 mg PO BEDTIME [facility] Last Admin: 07/26/23 21:16 Dose: 40 mg Magnesium Hydroxide (Milk Of Magnesia 30 Ml Oral.Susp) 30 ml PO DAILY PRN PRN Reason: Constipation Nystatin (Nystatin Powder 15 Gm Bottle) 1 appl TOPICAL BID [facility]; Protocol Last Admin: 07/27/23 10:42 Dose: Not Given Olanzapine (Olanzapine Odt 10 Mg Tab.Rapdis) 20 mg TRANSLINGU BID [facility] Last Admin: 07/27/23 09:15 Dose: 20 mg Trazodone HCl (Trazodone Hcl 50 Mg Tablet) 50 mg PO BEDTIME MRX1 PRN PRN Reason: Insomnia Allergies Allergies Allergy/AdvReac Type Severity Reaction Status Date / Time kiwi [KIWI] Allergy Mild HIVES Verified 07/07/23 10:07 mold [MOLD EXTRACTS*] Allergy Mild HIVES Verified 07/07/23 10:07 Assessment & Plan Assessment & Plan (1) Medical clearance for psychiatric admission: Status: Acute Code(s): Z00.8 - Encounter for other general examination Plan Pt is a 32-year-old female with a PMH significant for Bipolar I disorder, currently manic, diet controlled diabetes type 2, HTN, HLD, factor 5 deficiency, seasonal asthma, obesity class 3, admitted to [address], [facility], paranoia. Hospital course: 07/23 patient remains floridly manic; took Haldol, Zyprexa but refuse Depakote; will change to Depakote Sprinkles and make 1 time dosing to see if can improve adherence. Apparently Pt had been recently stabilized Depakote 07/24 patient took Depakote at bedtime last night and also 1 time Depakote dose today; patient much more calm, more organized; even showered today. Not yelling and milieu. Still with some delusional disorganized content -patient/mother asking if Ofelia chair available for patient to sleep in 07/25/23 Increase Olanzapine to 20 mg bid 07/26/23 Continue current regime and plan. Symptoms appear to be decreasing. 07/27/23 Increase Tenormin to 75 mg daily Ortho consult, Left ankle avulsion PLAN: INCREASE TO Depakote DR Sprinkles 1500 mg q.h.s.; patient refusing tablet Zyprexa; also will schedule at bedtime to help with increased adherence (if patient initially refuses may give it any other time) DC Depakote 750 b.i.d.; patient has been refusing Continue Haldol 5 mg b.i.d. Continue Zyprexa 10 mg b.i.d. Continue Latuda 60 mg at bedtime Continue Atenolol 50 mg daily HTN Well-controlled on current therapies Continue atenolol HLD Continue statin Seasonal allergies Continue home inhalers p.r.n. Diet-controlled diabetes type 2 Followed by endocrinology outpatient Diabetic diet Factor 5 deficiency Not on any current medication Followed by Hematology outpatient Patient educated on: therapeutic strategies Informed Consent: does not understand and further education needed Reason for continued inpatient stay Substantial Risk for: rapid decompensation Time Spent With Patient Time: Total time managing care of this patient today ____ minutes.
[2023-07-27 18:25] VITALS: BP 140/78; PULSE 92; RESP 16; TEMP 36.9; O2SAT 98
[2023-07-27] MEDS: Divalproex Sodium Sprinkles 125 MG CAP.DR.SPR 1500 MG PO (20:59)
[2023-07-28 08:20] VITALS: BP 193/115; PULSE 97; RESP 18; TEMP 36.3; O2SAT 100
[2023-07-28] MEDS: atenoloL 25 MG TABLET 75 MG PO (08:25)
[2023-07-28] MEDS: OLANZapine ODT 10 MG TAB.RAPDIS 20 MG TRANSLINGU ×2 (08:25→22:11)
--- NOTE | 2023-07-28 09:03 | P.PNPSI_ITS ---
Subjective Subjective Date of Service: 07/28/23 Reason For Visit: Bipolar disorder with psychosis Interim History: met with patient; discussed with team A little improved, more calm, friendly; patient smiling and polite on approach but still disorganized Taking medications; improved sleep Mental Status Exam Mental Status Exam Patient Appearance: Disheveled Patient Orientation: Person and Place Level of Consciousness: Alert Patient Behavior: Talkative, Distractible and Good Eye Contact Mood Description: Labile Affect Description: Labile Patient Cognition Impaired: No Ability to Follow Directions: Fair Speech Pattern: Perseverating, Spontaneous Speech, Soft-Spoken, Rapid, Loud and Pressured (at times) Memory Description: Remote Impaired Hallucinations: Auditory Delusions: Paranoid Ideation (decreasing) and Present Perceptual Disturbances: Derealization Thought Process: Racing, Distracted and Rumination Thought Content: positive for Flight of Ideas, positive for Racing, positive for Circumstantial, positive for Perseveration, positive for Preoccupation, positive for Tangential and positive for Suicidal Ideation (denies) Depressive Symptoms: Difficulty Concentrating Judgement: Poor Diagnostics Vital Signs (24Hr): Vital Signs - 24 hr 07/27/23 09:21 07/27/23 10:45 07/27/23 18:25 Temperature 97.3 F 98.5 F Pulse Rate 92 89 92 Respiratory Rate 18 16 Blood Pressure 179/102 H 127/75 140/78 H Pulse Oximetry 97 98 Oxygen Delivery Method Room Air Room Air BMI result Body Mass Index 62.8 Imaging Radiology Impressions: ITS Impressions Ankle X-Ray 07/27/23 14:25 IMPRESSION: 1. A small avulsion fragment of indeterminate chronicity versus accessory ossification center is seen adjacent to the medial malleolus. Please correlate clinically. 2. There is generalized soft tissue swelling of the left ankle. 3. There are calcaneal spurs. Medications Medications Current Medications Acetaminophen (Acetaminophen 325 Mg Tablet) 650 mg PO Q6H PRN PRN Reason: Headache/Pain Mild Scale (1-3) Last Admin: 07/25/23 18:10 Dose: 650 mg Al Hydroxide/Mg Hydroxide (Magnesium Hydrox/Alum Hydrox 30 Ml Oral.Susp) 30 ml PO Q6H PRN PRN Reason: Heartburn/Nausea Atenolol (Atenolol 25 Mg Tablet) 75 mg PO DAILY [facility]; Protocol Last Admin: 07/28/23 08:25 Dose: 75 mg Benztropine Mesylate (Benztropine Mesylate 0.5 Mg Tablet) 0.5 mg PO TID PRN PRN Reason: Extrapyramidal Effects Last Admin: 07/22/23 20:50 Dose: 0.5 mg Divalproex Sodium (Divalproex Sodium Sprinkles 125 Mg Darvin.) 1,500 mg PO BEDTIME INOCENCIO Last Admin: 07/27/23 20:59 Dose: 1,500 mg Hydroxyzine HCl (Hydroxyzine Hcl 25 Mg Tablet) 25 mg PO Q6H PRN PRN Reason: Anxiety Last Admin: 07/25/23 08:03 Dose: 25 mg Lurasidone HCl (Lurasidone Hcl 20 Mg Tablet) 20 mg PO BEDTIME INOCENCIO Last Admin: 07/27/23 21:25 Dose: Not Given Lurasidone HCl (Lurasidone Hcl 40 Mg Tablet) 40 mg PO BEDTIME [facility]IO Last Admin: 07/27/23 21:25 Dose: Not Given Magnesium Hydroxide (Milk Of Magnesia 30 Ml Oral.Susp) 30 ml PO DAILY PRN PRN Reason: Constipation Nystatin (Nystatin Powder 15 Gm Bottle) 1 appl TOPICAL BID [facility]; Protocol Last Admin: 07/27/23 22:38 Dose: Not Given Olanzapine (Olanzapine Odt 10 Mg Tab.Rapdis) 20 mg TRANSLINGU BID [facility] Last Admin: 07/28/23 08:25 Dose: 20 mg Trazodone HCl (Trazodone Hcl 50 Mg Tablet) 50 mg PO BEDTIME MRX1 PRN PRN Reason: Insomnia Allergies Allergies Allergy/AdvReac Type Severity Reaction Status Date / Time kiwi [KIWI] Allergy Mild HIVES Verified 07/07/23 10:07 mold [MOLD EXTRACTS*] Allergy Mild HIVES Verified 07/07/23 10:07 Assessment & Plan Assessment & Plan (1) Medical clearance for psychiatric admission: Status: Acute Code(s): Z00.8 - Encounter for other general examination Plan Pt is a 32-year-old female with a PMH significant for Bipolar I disorder, currently manic, diet controlled diabetes type 2, HTN, HLD, factor 5 deficienc y, seasonal asthma, obesity class 3, admitted [address] Hospital course: 07/23 patient remains floridly manic; took Haldol, Zyprexa but refuse Depakote; will change to Depakote Sprinkles and make 1 time dosing to see if can improve adherence. Apparently Pt had been recently stabilized Depakote 07/24 patient took Depakote at bedtime last night and also 1 time Depakote dose today; patient much more calm, more organized; even showered today. Not yelling and milieu. Still with some delusional disorganized content -patient/mother asking if Ofelia chair available for patient to sleep in 07/25/23 Increase Olanzapine to 20 mg bid 07/26/23 Continue current regime and plan. Symptoms appear to be decreasing. 07/27/23 Increase Tenormin to 75 mg daily Ortho consult, Left ankle avulsion 07/28/2023 continue current treatment plan; patient with elevated blood pressures this morning, likely before atenolol; discussed with nurse who will retake PLAN: INCREASE TO Depakote DR Sprinkles 1500 mg q.h.s.; patient refusing tablet Zyprexa; also will schedule at bedtime to help with increased adherence (if patient initially refuses may give it any other time) DC Depakote 750 b.i.d.; patient has been refusing Continue Haldol 5 mg b.i.d. Continue Zyprexa 10 mg b.i.d. Continue Latuda 60 mg at bedtime Continue Atenolol 50 mg daily HTN Well-controlled on current therapies Continue atenolol HLD Continue statin Seasonal allergies Continue home inhalers p.r.n. Diet-controlled diabetes type 2 Followed by endocrinology outpatient Diabetic diet Factor 5 deficiency Not on any current medication Followed by Hematology outpatient Reason for continued inpatient stay Substantial Risk for: inability to function Time Spent With Patient Time: Total time managing care of this patient today ____ minutes.
[2023-07-28 09:21] VITALS: BMI 63.1
[2023-07-28 10:30] VITALS: BP 134/87; PULSE 105
[2023-07-28 16:15] VITALS: BP 123/70; PULSE 90; TEMP 36.6; O2SAT 99
[2023-07-28] MEDS: Lurasidone HCl 40 MG TABLET PO (22:10)
[2023-07-28] MEDS: Lurasidone HCl 20 MG TABLET PO (22:10)
[2023-07-28] MEDS: Divalproex Sodium Sprinkles 125 MG CAP.DR.SPR 1500 MG PO (22:13)
[2023-07-28] MEDS: Acetaminophen 325 MG TABLET 650 MG PO (22:15)
[2023-07-28] MEDS: Nystatin Powder 15 GM BOTTLE 1 APPL TOPICAL (22:22)
[2023-07-29 08:00] VITALS: BP 132/80; PULSE 94; RESP 18; TEMP 36.4; O2SAT 97
[2023-07-29] MEDS: OLANZapine ODT 10 MG TAB.RAPDIS 20 MG TRANSLINGU ×2 (08:01→21:19)
[2023-07-29] MEDS: atenoloL 25 MG TABLET 75 MG PO (08:01)
--- NOTE | 2023-07-29 13:22 | PM.EVENT ---
Event Note Date of Service: 07/29/23 Event Note: pt seen and examined this morning. left ankle minimal tenderness with swelling-xrays suggest avulsion fx right ankle tenderness along the lateral mal--xrays ordered Time Spent With Patient Time: Total time managing care of this patient today ____ minutes.
--- NOTE | 2023-07-29 16:36 | HO.PSYCHPN ---
Subjective Subjective Date of Service: 07/29/23 Reason For Visit: Bipolar disorder with psychosis Subjective Notes: Conditional Voluntary Healthcare Proxy: No Guardianship: No Medical Problems Affecting Mental Status: No Interim History: Pt continues with sx of brendon and disorganization. Call from pt's father to report in his conversations with pt and with sister's visits, they are seeing significant improvement in declining brendon. Pt is quieter today, she reports she did shower, but did not change clothing. She is visable in the milieu, however she is less engaged, more on the periphery, continues with confusion and disorganization. Medication Compliance: Yes Side effects from medications: No Attending Groups: Intermittent Review of Systems Acute medical concerns: No Medical Review of Systems: unchanged Mental Status Exam Mental Status Exam Patient Appearance: Disheveled Patient Orientation: Person and Place Level of Consciousness: Alert Patient Behavior: Talkative, Distractible and Good Eye Contact Mood Description: Labile Affect Description: Labile Patient Cognition Impaired: No Ability to Follow Directions: Fair Speech Pattern: Perseverating, Spontaneous Speech, Soft-Spoken, Rapid, Loud and Pressured (at times) Memory Description: Remote Impaired Hallucinations: Auditory Delusions: Paranoid Ideation (decreasing) and Present Perceptual Disturbances: Derealization Thought Process: Racing, Distracted and Rumination Thought Content: positive for Flight of Ideas, positive for Racing, positive for Circumstantial, positive for Perseveration, positive for Preoccupation, positive for Tangential and positive for Suicidal Ideation (denies) Depressive Symptoms: Difficulty Concentrating Judgement: Poor Diagnostics Vital Signs (24Hr): Vital Signs - 24 hr 07/29/23 08:00 Temperature 97.5 F Pulse Rate 94 Respiratory Rate 18 Blood Pressure 132/80 Pulse Oximetry 97 Oxygen Delivery Method Room Air BMI result Body Mass Index 63.1 Imaging Radiology Impressions: ITS Impressions Ankle X-Ray 07/27/23 14:25 IMPRESSION: 1. A small avulsion fragment of indeterminate chronicity versus accessory ossification center is seen adjacent to the medial malleolus. Please correlate clinically. 2. There is generalized soft tissue swelling of the left ankle. 3. There are calcaneal spurs. Medications Medications Current Medications Acetaminophen (Acetaminophen 325 Mg Tablet) 650 mg PO Q6H PRN PRN Reason: Headache/Pain Mild Scale (1-3) Last Admin: 07/28/23 22:15 Dose: 650 mg Al Hydroxide/Mg Hydroxide (Magnesium Hydrox/Alum Hydrox 30 Ml Oral.Susp) 30 ml PO Q6H PRN PRN Reason: Heartburn/Nausea Atenolol (Atenolol 25 Mg Tablet) 75 mg PO DAILY [facility]; Protocol Last Admin: 07/29/23 08:01 Dose: 75 mg Benztropine Mesylate (Benztropine Mesylate 0.5 Mg Tablet) 0.5 mg PO TID PRN PRN Reason: Extrapyramidal Effects Last Admin: 07/22/23 20:50 Dose: 0.5 mg Divalproex Sodium (Divalproex Sodium Sprinkles 125 Mg Darvin.) 1,500 mg PO BEDTIME INOCENCIO Last Admin: 07/28/23 22:13 Dose: 1,500 mg Hydroxyzine HCl (Hydroxyzine Hcl 25 Mg Tablet) 25 mg PO Q6H PRN PRN Reason: Anxiety Last Admin: 07/25/23 08:03 Dose: 25 mg Lurasidone HCl (Lurasidone Hcl 20 Mg Tablet) 20 mg PO BEDTIME [facility] Last Admin: 07/28/23 22:10 Dose: 20 mg Lurasidone HCl (Lurasidone Hcl 40 Mg Tablet) 40 mg PO BEDTIME [facility]ENCIO Last Admin: 07/28/23 22:10 Dose: 40 mg Magnesium Hydroxide (Milk Of Magnesia 30 Ml Oral.Susp) 30 ml PO DAILY PRN PRN Reason: Constipation Nystatin (Nystatin Powder 15 Gm Bottle) 1 appl TOPICAL BID [facility]; Protocol Last Admin: 07/29/23 10:22 Dose: Not Given Olanzapine (Olanzapine Odt 10 Mg Tab.Rapdis) 20 mg TRANSLINGU BID [facility] Last Admin: 07/29/23 08:01 Dose: 20 mg Trazodone HCl (Trazodone Hcl 50 Mg Tablet) 50 mg PO BEDTIME MRX1 PRN PRN Reason: Insomnia Allergies Allergies Allergy/AdvReac Type Severity Reaction Status Date / Time kiwi [KIWI] Allergy Mild HIVES Verified 07/07/23 10:07 mold [MOLD EXTRACTS*] Allergy Mild HIVES Verified 07/07/23 10:07 Assessment & Plan Assessment & Plan (1) Medical clearance for psychiatric admission: Status: Acute Code(s): Z00.8 - Encounter for other general examination Plan Pt is a 32-year-old female with a PMH significant for Bipolar I disorder, currently manic, diet controlled diabetes type 2, HTN, HLD, factor 5 deficiency, seasonal asthma, obesity class 3, admitted to [address], [facility], paranoia. Hospital course: 07/23 patient remains floridly manic; took Haldol, Zyprexa but refuse Depakote; will change to Depakote Sprinkles and make 1 time dosing to see if can improve adherence. Apparently Pt had been recently stabilized Depakote 07/24 patient took Depakote at bedtime last night and also 1 time Depakote dose today; patient much more calm, more organized; even showered today. Not yelling and milieu. Still with some delusional disorganized content -patient/mother asking if Ofelia chair available for patient to sleep in 07/25/23 Increase Olanzapine to 20 mg bid 07/26/23 Continue current regime and plan. Symptoms appear to be decreasing. 07/27/23 Increase Tenormin to 75 mg daily Ortho consult, Left ankle avulsion 07/28/2023 continue current treatment plan; patient with elevated blood pressures this morning, likely before atenolol; discussed with nurse who will retake 07/29/23 Continue current regime and plan of care Valproate level [facility] PLAN: INCREASE TO Depakote DR Sprinkles 1500 mg q.h.s.; patient refusing tablet Zyprexa; also will schedule at bedtime to help with increased adherence (if patient initially refuses may give it any other time) DC Depakote 750 b.i.d.; patient has been refusing Continue Haldol 5 mg b.i.d. Continue Zyprexa 10 mg b.i.d. Continue Latuda 60 mg at bedtime Continue Atenolol 50 mg daily HTN Well-controlled on current therapies Continue atenolol HLD Continue statin Seasonal allergies Continue home inhalers p.r.n. Diet-controlled diabetes type 2 Followed by endocrinology outpatient Diabetic diet Factor 5 deficiency Not on any current medication Followed by Hematology outpatient Informed Consent: further education needed Reason for continued inpatient stay Substantial Risk for: rapid decompensation Time Spent With Patient Time: Total time managing care of this patient today ____ minutes.
[2023-07-29 18:00] VITALS: BP 124/73; PULSE 84; RESP 16; TEMP 36.6; O2SAT 100
[2023-07-29] MEDS: Nystatin Powder 15 GM BOTTLE 1 APPL TOPICAL (21:14)
[2023-07-29] MEDS: Divalproex Sodium Sprinkles 125 MG CAP.DR.SPR 1500 MG PO (21:14)
[2023-07-29] MEDS: Lurasidone HCl 40 MG TABLET PO (21:18)
[2023-07-29] MEDS: Lurasidone HCl 20 MG TABLET PO (21:19)
[2023-07-30 07:30] LABS: MANUAL DIFF FLAG NO
[2023-07-30 07:32] LABS: Basophils Percent Auto 0.5 % (0-2); Eosinophils Absolute Auto 0.2 X10*3/uL (0.0-0.4); Hematocrit 41.2 % (37.0-47.0); Hemoglobin 13.2 g/dl (12.0-16.0); Imm Gran Abs Auto 0.02 X10*3/uL (0.00-0.03); Imm Gran Pct Auto 0.3 % (0.0-0.4); Lymphocytes Absolute Auto 2.3 X10*3/uL (1.2-4.9); Lymphocytes Percent Auto 38.6 % (20-40); Mean Corpuscular Hemoglobin 27.4 pg (27.0-33.0); Mean Corpuscular Volume 85.5 fL (80.0-98.0); Mean Platelet Volume 9.8 fL (9.4-12.3); Monocytes Absolute Auto 0.4 X10*3/uL (0.1-1.2); Monocytes Percent Auto 7.3 % (2-11); Neutrophils Percent Auto 50.3 % (45-73); Platelet Count 154 X10*3/uL (160-400); Red Blood Count 4.82 X10*6/uL (4.20-5.50)
[2023-07-30 07:50] LABS: Valproate 66.9 mcg/mL (50.0-100.0)
[2023-07-30 08:20] VITALS: BP 145/87; PULSE 91; RESP 16; TEMP 36.2; O2SAT 99
[2023-07-30] MEDS: OLANZapine ODT 10 MG TAB.RAPDIS 20 MG TRANSLINGU ×2 (08:41→20:56)
[2023-07-30] MEDS: atenoloL 25 MG TABLET 75 MG PO (08:41)
--- NOTE | 2023-07-30 16:31 | HO.PSYCHPN ---
Subjective Subjective Date of Service: 07/30/23 Reason For Visit: Bipolar disorder with psychosis Subjective Notes: Conditional Voluntary Healthcare Proxy: No Guardianship: No Medical Problems Affecting Mental Status: No Interim History: Met with patient. Discussed with Nursing. Chart reviewed. Overall no acute management issues. Is pressured. Mood is elevated. Flight of ideas evident. 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 No evidence of SI. No med concerns. Medication Compliance: Yes Side effects from medications: No Attending Groups: Intermittent Review of Systems Acute medical concerns: No Review of Systems Review of Systems nothing acute noted Mental Status Exam Mental Status Exam Patient Appearance: Disheveled Patient Orientation: Person and Place Level of Consciousness: Alert Patient Behavior: Talkative, Distractible and Good Eye Contact Mood Description: Labile Affect Description: Labile Patient Cognition Impaired: No Ability to Follow Directions: Fair Speech Pattern: Perseverating, Spontaneous Speech, Soft-Spoken, Rapid, Loud and Pressured (at times) Hallucinations: None (denied) Delusions: Paranoid Ideation (decreasing) and Present Perceptual Disturbances: Derealization Thought Process: Racing, Distracted and Rumination Thought Content: positive for Flight of Ideas, positive for Racing, positive for Circumstantial, positive for Perseveration, positive for Preoccupation and positive for Tangential Depressive Symptoms: Difficulty Concentrating Judgement: Poor Diagnostics Vital Signs (24Hr): Vital Signs - 24 hr 07/29/23 18:00 07/30/23 08:20 Temperature 97.9 F 97.1 F Pulse Rate 84 91 Respiratory Rate 16 16 Blood Pressure 124/73 145/87 H Pulse Oximetry 100 99 Oxygen Delivery Method Room Air Room Air BMI result Body Mass Index 63.1 Labs 07/30/23 07:26 Labs: Laboratory Results - last 48 hr 07/30/23 07:26 WBC 6.0 RBC 4.82 Hgb 13.2 Hct 41.2 MCV 85.5 MCH 27.4 MCHC 32.0 RDW 14.0 Plt Count 154 L D MPV 9.8 Immature Gran % (Auto) 0.3 Neut % (Auto) 50.3 Lymph % (Auto) 38.6 [place] % (Auto) 7.3 Eos % (Auto) 3.0 Baso % (Auto) 0.5 Lymph # (Auto) 2.3 [place] # (Auto) 0.4 Eos # (Auto) 0.2 Baso # (Auto) 0.0 Abs Immat Gran (auto) 0.02 Absolute Neuts (auto) 3.0 Absolute Nucleated RBC 0.000 Nucleated RBC % (auto) 0.0 Valproic Acid 66.9 Imaging Radiology Impressions: ITS Impressions Ankle X-Ray 07/27/23 14:25 IMPRESSION: 1. A small avulsion fragment of indeterminate chronicity versus accessory ossification center is seen adjacent to the medial malleolus. Please correlate clinically. 2. There is generalized soft tissue swelling of the left ankle. 3. There are calcaneal spurs. Medications Medications Current Medications Acetaminophen (Acetaminophen 325 Mg Tablet) 650 mg PO Q6H PRN PRN Reason: Headache/Pain Mild Scale (1-3) Last Admin: 07/28/23 22:15 Dose: 650 mg Al Hydroxide/Mg Hydroxide (Magnesium Hydrox/Alum Hydrox 30 Ml Oral.Susp) 30 ml PO Q6H PRN PRN Reason: Heartburn/Nausea Atenolol (Atenolol 25 Mg Tablet) 75 mg PO DAILY INOCENCIO; Protocol Last Admin: 07/30/23 08:41 Dose: 75 mg Benztropine Mesylate (Benztropine Mesylate 0.5 Mg Tablet) 0.5 mg PO TID PRN PRN Reason: Extrapyramidal Effects Last Admin: 07/22/23 20:50 Dose: 0.5 mg Divalproex Sodium (Divalproex Sodium Sprinkles 125 Mg ) 1,500 mg PO BEDTIME INOCENCIO Last Admin: 07/29/23 21:14 Dose: 1,500 mg Hydroxyzine HCl (Hydroxyzine Hcl 25 Mg Tablet) 25 mg PO Q6H PRN PRN Reason: Anxiety Last Admin: 07/25/23 08:03 Dose: 25 mg Lurasidone HCl (Lurasidone Hcl 20 Mg Tablet) 20 mg PO BEDTIME INOCENCIO Last Admin: 07/29/23 21:19 Dose: 20 mg Lurasidone HCl (Lurasidone Hcl 40 Mg Tablet) 40 mg PO BEDTIME INOCENCIO Last Admin: 07/29/23 21:18 Dose: 40 mg Magnesium Hydroxide (Milk Of Magnesia 30 Ml Oral.Susp) 30 ml PO DAILY PRN PRN Reason: Constipation Nystatin (Nystatin Powder 15 Gm Bottle) 1 appl TOPICAL BID INOCENCIO; Protocol Last Admin: 07/30/23 09:49 Dose: Not Given Olanzapine (Olanzapine Odt 10 Mg Tab.Rapdis) 20 mg TRANSLINGU BID INOCENCIO Last Admin: 07/30/23 08:41 Dose: 20 mg Trazodone HCl (Trazodone Hcl 50 Mg Tablet) 50 mg PO BEDTIME MRX1 PRN PRN Reason: Insomnia Allergies Allergies Allergy/AdvReac Type Severity Reaction Status Date / Time kiwi [KIWI] Allergy Mild HIVES Verified 07/07/23 10:07 mold [MOLD EXTRACTS*] Allergy Mild HIVES Verified 07/07/23 10:07 Assessment & Plan Assessment & Plan (1) Medical clearance for psychiatric admission: Status: Acute Code(s): Z00.8 - Encounter for other general examination Plan Pt is a 32-year-old female with a PMH significant for Bipolar I disorder, currently manic, diet controlled diabetes type 2, HTN, HLD, factor 5 deficiency, seasonal asthma, obesity class 3, admitted to [address] Hospital course: 07/23 patient remains floridly manic; took Haldol, Zyprexa but refuse Depakote; will change to Depakote Sprinkles and make 1 time dosing to see if can improve adherence. Apparently Pt had been recently stabilized Depakote 07/24 patient took Depakote at bedtime last night and also 1 time Depakote dose today; patient much more calm, more organized; even showered today. Not yelling and milieu. Still with some delusional disorganized content -patient/mother asking if Ofelia chair available for patient to sleep in 07/25/23 Increase Olanzapine to 20 mg bid 07/26/23 Continue current regime and plan. Symptoms appear to be decreasing. 07/27/23 Increase Tenormin to 75 mg daily Ortho consult, Left ankle avulsion 07/28/2023 continue current treatment plan; patient with elevated blood pressures this morning, likely before atenolol; discussed with nurse who will retake 07/29/23 Continue current regime and plan of care Valproate level CBCD 07/30/2023: Increase Depakote to 2000 mg at bedtime as level 66. PLAN: INCREASE TO Depakote DR Nain 1500 mg q.h.s.; patient refusing tablet Zyprexa; also will schedule at bedtime to help with increased adherence (if patient initially refuses may give it any other time) DC Depakote 750 b.i.d.; patient has been refusing Continue Haldol 5 mg b.i.d. Continue Zyprexa 10 mg b.i.d. Continue Latuda 60 mg at bedtime Continue Atenolol 50 mg daily HTN Well-controlled on current therapies Continue atenolol HLD Continue statin Seasonal allergies Continue home inhalers p.r.n. Diet-controlled diabetes type 2 Followed by endocrinology outpatient Diabetic diet Factor 5 deficiency Not on any current medication Followed by Hematology outpatient Reason for continued inpatient stay Substantial Risk for: rapid decompensation Time Spent With Patient Time: Total time managing care of this patient today ____ minutes.
[2023-07-30 18:00] VITALS: BP 138/87; PULSE 88; RESP 16; TEMP 36.6; O2SAT 99
[2023-07-30] MEDS: Lurasidone HCl 20 MG TABLET PO (20:56)
[2023-07-30] MEDS: Divalproex Sodium Sprinkles 125 MG CAP.DR.SPR 2000 MG PO (21:01)
[2023-07-30] MEDS: Lurasidone HCl 40 MG TABLET PO (21:02)
[2023-07-31] MEDS: atenoloL 25 MG TABLET 75 MG PO (08:14)
[2023-07-31 08:15] VITALS: BP 143/83; PULSE 87; RESP 18; TEMP 36.1; O2SAT 93
[2023-07-31] MEDS: OLANZapine ODT 10 MG TAB.RAPDIS 20 MG TRANSLINGU ×2 (08:17→21:55)
--- NOTE | 2023-07-31 15:52 | HO.PSYCHPN ---
Subjective Subjective Date of Service: 07/31/23 Reason For Visit: Bipolar disorder with psychosis Interim History: Met with patient. Discussed with Nursing. Overall no acute management issues. Still pressured. Mood is elevated. Flight of ideas evident. Was asking about ice cream, them asked about mail from her . Aware of depakote dose increase as sub therapeutic level yesterday. No evidence of SI. No med concerns. Medication Compliance: Yes Side effects from medications: No Attending Groups: Intermittent Review of Systems Acute medical concerns: No Review of Systems Review of Systems nothing acute noted Mental Status Exam Mental Status Exam Patient Appearance: Disheveled Patient Orientation: Person and Place Level of Consciousness: Alert Patient Behavior: Talkative, Distractible and Good Eye Contact Mood Description: Labile Affect Description: Labile Patient Cognition Impaired: No Ability to Follow Directions: Fair Speech Pattern: Perseverating, Spontaneous Speech, Soft-Spoken, Rapid, Loud and Pressured (at times) Memory Description: Remote Impaired Diagnostics Vital Signs (24Hr): Vital Signs - 24 hr 07/30/23 18:00 07/31/23 08:15 Temperature 98 F 97.0 F Pulse Rate 88 87 Respiratory Rate 16 18 Blood Pressure 138/87 143/83 H Pulse Oximetry 99 93 Oxygen Delivery Method Room Air BMI result Body Mass Index 63.1 Labs 07/30/23 07:26 Labs: Laboratory Results - last 48 hr 07/30/23 07:26 WBC 6.0 RBC 4.82 Hgb 13.2 Hct 41.2 MCV 85.5 MCH 27.4 MCHC 32.0 RDW 14.0 Plt Count 154 L D MPV 9.8 Immature Gran % (Auto) 0.3 Neut % (Auto) 50.3 Lymph % (Auto) 38.6 [place] % (Auto) 7.3 Eos % (Auto) 3.0 Baso % (Auto) 0.5 Lymph # (Auto) 2.3 [place] # (Auto) 0.4 Eos # (Auto) 0.2 Baso # (Auto) 0.0 Abs Immat Gran (auto) 0.02 Absolute Neuts (auto) 3.0 Absolute Nucleated RBC 0.000 Nucleated RBC % (auto) 0.0 Valproic Acid 66.9 Imaging Radiology Impressions: ITS Impressions Ankle X-Ray 07/27/23 14:25 IMPRESSION: 1. A small avulsion fragment of indeterminate chronicity versus accessory ossification center is seen adjacent to the medial malleolus. Please correlate clinically. 2. There is generalized soft tissue swelling of the left ankle. 3. There are calcaneal spurs. Medications Medications Current Medications Acetaminophen (Acetaminophen 325 Mg Tablet) 650 mg PO Q6H PRN PRN Reason: Headache/Pain Mild Scale (1-3) Last Admin: 07/28/23 22:15 Dose: 650 mg Al Hydroxide/Mg Hydroxide (Magnesium Hydrox/Alum Hydrox 30 Ml Oral.Susp) 30 ml PO Q6H PRN PRN Reason: Heartburn/Nausea Atenolol (Atenolol 25 Mg Tablet) 75 mg PO DAILY INOCENCIO; Protocol Last Admin: 07/31/23 08:14 Dose: 75 mg Benztropine Mesylate (Benztropine Mesylate 0.5 Mg Tablet) 0.5 mg PO TID PRN PRN Reason: Extrapyramidal Effects Last Admin: 07/22/23 20:50 Dose: 0.5 mg Divalproex Sodium (Divalproex Sodium Sprinkles 125 Mg [place].) 2,000 mg PO BEDTIME INOCENCIO Last Admin: 07/30/23 21:01 Dose: 2,000 mg Hydroxyzine HCl (Hydroxyzine Hcl 25 Mg Tablet) 25 mg PO Q6H PRN PRN Reason: Anxiety Last Admin: 07/25/23 08:03 Dose: 25 mg Lurasidone HCl (Lurasidone Hcl 20 Mg Tablet) 20 mg PO BEDTIME INOCENCIO Last Admin: 07/30/23 20:56 Dose: 20 mg Lurasidone HCl (Lurasidone Hcl 40 Mg Tablet) 40 mg PO BEDTIME INOCENCIO Last Admin: 07/30/23 21:02 Dose: 40 mg Magnesium Hydroxide (Milk Of Magnesia 30 Ml Oral.Susp) 30 ml PO DAILY PRN PRN Reason: Constipation Nystatin (Nystatin Powder 15 Gm Bottle) 1 appl TOPICAL BID INOCENCIO; Protocol Last Admin: 07/31/23 08:18 Dose: Not Given Olanzapine (Olanzapine Odt 10 Mg Tab.Rapdis) 20 mg TRANSLINGU BID INOCENCIO Last Admin: 07/31/23 08:17 Dose: 20 mg Trazodone HCl (Trazodone Hcl 50 Mg Tablet) 50 mg PO BEDTIME MRX1 PRN PRN Reason: Insomnia Allergies Allergies Allergy/AdvReac Type Severity Reaction Status Date / Time kiwi [KIWI] Allergy Mild HIVES Verified 07/07/23 10:07 mold [MOLD EXTRACTS*] Allergy Mild HIVES Verified 07/07/23 10:07 Assessment & Plan Assessment & Plan (1) Medical clearance for psychiatric admission: Status: Acute Code(s): Z00.8 - Encounter for other general examination Plan Pt is a 32-year-old female with a PMH significant for Bipolar I disorder, currently manic, diet controlled diabetes type 2, HTN, HLD, factor 5 deficiency, seasonal asthma, obesity class 3, admitted to [address] Hospital course: 07/23 patient remains floridly manic; took Haldol, Zyprexa but refuse Depakote; will change to Depakote Sprinkles and make 1 time dosing to see if can improve adherence. Apparently Pt had been recently stabilized Depakote 07/24 patient took Depakote at bedtime last night and also 1 time Depakote dose today; patient much more calm, more organized; even showered today. Not yelling and milieu. Still with some delusional disorganized content -patient/mother asking if Ofelia chair available for patient to sleep in 07/25/23 Increase Olanzapine to 20 mg bid 07/26/23 Continue current regime and plan. Symptoms appear to be decreasing. 07/27/23 Increase Tenormin to 75 mg daily Ortho consult, Left ankle avulsion 07/28/2023 continue current treatment plan; patient with elevated blood pressures this morning, likely before atenolol; discussed with nurse who will retake 07/29/23 Continue current regime and plan of care Valproate level CBCD 07/30/2023: Increase Depakote to 2000 mg at bedtime as level 66. 07/31: no changes PLAN: INCREASE TO Depakote DR [place] 1500 mg q.h.s.; patient refusing tablet Zyprexa; also will schedule at bedtime to help with increased adherence (if patient initially refuses may give it any other time) DC Depakote 750 b.i.d.; patient has been refusing Continue Haldol 5 mg b.i.d. Continue Zyprexa 10 mg b.i.d. Continue Latuda 60 mg at bedtime Continue Atenolol 50 mg daily HTN Well-controlled on current therapies Continue atenolol HLD Continue statin Seasonal allergies Continue home inhalers p.r.n. Diet-controlled diabetes type 2 Followed by endocrinology outpatient Diabetic diet Factor 5 deficiency Not on any current medication Followed by Hematology outpatient Reason for continued inpatient stay Substantial Risk for: inability to function and rapid decompensation Time Spent With Patient Time: Total time managing care of this patient today ____ minutes.
[2023-07-31] MEDS: Divalproex Sodium Sprinkles 125 MG CAP.DR.SPR 2000 MG PO (21:48)
[2023-07-31 21:50] VITALS: BP 135/66; PULSE 72; TEMP 36
[2023-07-31] MEDS: Lurasidone HCl 40 MG TABLET PO (21:53)
[2023-07-31] MEDS: Lurasidone HCl 20 MG TABLET PO (21:54)
[2023-07-31] MEDS: Nystatin Powder 15 GM BOTTLE 1 APPL TOPICAL (22:00)
[2023-08-01 08:15] VITALS: BP 134/71; PULSE 83; RESP 18; TEMP 36.1; O2SAT 98
[2023-08-01] MEDS: OLANZapine ODT 10 MG TAB.RAPDIS 20 MG TRANSLINGU ×2 (08:46→21:57)
[2023-08-01] MEDS: atenoloL 25 MG TABLET 75 MG PO (08:46)
[2023-08-01] MEDS: Nystatin Powder 15 GM BOTTLE 1 APPL TOPICAL (08:47)
--- NOTE | 2023-08-01 10:03 | HO.PSYCHPN ---
Subjective Subjective Date of Service: 08/01/23 Reason For Visit: Bipolar disorder with psychosis Subjective Notes: Conditional Voluntary Interim History: Pt disheveled in her room. She asks for her family.. her father, sister and mother. She reports her depakote was decreased outpaient and thinks this may have caused another episode. 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 She denies SI/HI. She is taking medications as prescribed. Poor sleep last night, although she reports sleeping fine Medication Compliance: Yes Side effects from medications: No Attending Groups: No Review of Systems Review of Systems nothing acute noted Yes Unobtainable due to mental status Mental Status Exam Mental Status Exam Narrative: Pt is alert and oriented; behavior is still disorganized but much less so, more calm and friendly; not yelling in milieu; dressed in casual attire with unkempt hair but improved hygiene and took shower; mood is described as good and affect congruent; eye contact appropriate; Speech much more of a normal rate, volume and prosody; some mild to moderate psychomotor agitation, but much less so; thought process with flight of ideas; Thought content is on tx and other various, random things that come to mind; otherwise more able to have relevant conversation; still some delusional ideations; no SI/HI. Seems Internally preoccupied Patients insight and judgment impaired but improving Diagnostics Vital Signs (24Hr): Vital Signs - 24 hr 07/31/23 21:50 08/01/23 08:15 Temperature 96.8 F 97 F Pulse Rate 72 83 Respiratory Rate 18 Blood Pressure 135/66 134/71 Pulse Oximetry 98 Oxygen Delivery Method Room Air BMI result Body Mass Index 63.1 Labs 07/30/23 07:26 Imaging Radiology Impressions: ITS Impressions Ankle X-Ray 07/27/23 14:25 IMPRESSION: 1. A small avulsion fragment of indeterminate chronicity versus accessory ossification center is seen adjacent to the medial malleolus. Please correlate clinically. 2. There is generalized soft tissue swelling of the left ankle. 3. There are calcaneal spurs. Medications Medications Current Medications Acetaminophen (Acetaminophen 325 Mg Tablet) 650 mg PO Q6H PRN PRN Reason: Headache/Pain Mild Scale (1-3) Last Admin: 11/23/23 22:15 Dose: 650 mg Al Hydroxide/Mg Hydroxide (Magnesium Hydrox/Alum Hydrox 30 Ml Oral.Susp) 30 ml PO Q6H PRN PRN Reason: Heartburn/Nausea Atenolol (Atenolol 25 Mg Tablet) 75 mg PO DAILY INOCENCIO; Protocol Last Admin: 08/01/23 08:46 Dose: 75 mg Benztropine Mesylate (Benztropine Mesylate 0.5 Mg Tablet) 0.5 mg PO TID PRN PRN Reason: Extrapyramidal Effects Last Admin: 07/22/23 20:50 Dose: 0.5 mg Divalproex Sodium (Divalproex Sodium Sprinkles 125 Mg Cap.Dr.Spr) 2,000 mg PO BEDTIME INOCENCIO Last Admin: 07/31/23 21:48 Dose: 2,000 mg Hydroxyzine HCl (Hydroxyzine Hcl 25 Mg Tablet) 25 mg PO Q6H PRN PRN Reason: Anxiety Last Admin: 07/25/23 08:03 Dose: 25 mg Lurasidone HCl (Lurasidone Hcl 20 Mg Tablet) 20 mg PO BEDTIME INOCENCIO Last Admin: 07/31/23 21:54 Dose: 20 mg Lurasidone HCl (Lurasidone Hcl 40 Mg Tablet) 40 mg PO BEDTIME INOCENCIO Last Admin: 07/31/23 21:53 Dose: 40 mg Magnesium Hydroxide (Milk Of Magnesia 30 Ml Oral.Susp) 30 ml PO DAILY PRN PRN Reason: Constipation Nystatin (Nystatin Powder 15 Gm Bottle) 1 appl TOPICAL BID INOCENCIO; Protocol Last Admin: 08/01/23 08:47 Dose: 1 appl Olanzapine (Olanzapine Odt 10 Mg Tab.Rapdis) 20 mg TRANSLINGU BID [facility] Last Admin: 08/01/23 08:46 Dose: 20 mg Trazodone HCl (Trazodone Hcl 50 Mg Tablet) 50 mg PO BEDTIME MRX1 PRN PRN Reason: Insomnia Allergies Allergies Allergy/AdvReac Type Severity Reaction Status Date / Time kiwi [KIWI] Allergy Mild HIVES Verified 07/07/23 10:07 mold [MOLD EXTRACTS*] Allergy Mild HIVES Verified 07/07/23 10:07 Assessment & Plan Assessment & Plan (1) Bipolar disorder with psychotic features: Status: Acute Code(s): F31.9 - Bipolar disorder, unspecified Plan Pt is a 32-year-old female with a PMH significant for Bipolar I disorder, currently manic, diet controlled diabetes type 2, HTN, HLD, factor 5 deficiency, seasonal asthma, obesity class 3, admitted to [address], [facility]. Hospital course: 07/23 patient remains floridly manic; took Haldol, Zyprexa but refuse Depakote; will change to Depakote Sprinkles and make 1 time dosing to see if can improve adherence. Apparently Pt had been recently stabilized Depakote 07/24 patient took Depakote at bedtime last night and also 1 time Depakote dose today; patient much more calm, more organized; even showered today. Not yelling and milieu. Still with some delusional disorganized content -patient/mother asking if Ofelia chair available for patient to sleep in 07/25/23 Increase Olanzapine to 20 mg bid 07/26/23 Continue current regime and plan. Symptoms appear to be decreasing. 07/27/23 Increase Tenormin to 75 mg daily Ortho consult, Left ankle avulsion 07/28/2023 continue current treatment plan; patient with elevated blood pressures this morning, likely before atenolol; discussed with nurse who will retake 07/29/23 Continue current regime and plan of care Valproate level CBCD 07/30/2023: Increase Depakote to 2000 mg at bedtime as level 66. 07/31: no changes 08/01 continue tx. PLAN: INCREASE TO Depakote DR Nain 1500 mg q.h.s.; patient refusing tablet Zyprexa; also will schedule at bedtime to help with increased adherence (if patient initially refuses may give it any other time) DC Depakote 750 b.i.d.; patient has been refusing Continue Haldol 5 mg b.i.d. Continue Zyprexa 10 mg b.i.d. Continue Latuda 60 mg at bedtime Continue Atenolol 50 mg daily HTN Well-controlled on current therapies Continue atenolol HLD Continue statin Seasonal allergies Continue home inhalers p.r.n. Diet-controlled diabetes type 2 Followed by endocrinology outpatient Diabetic diet Factor 5 deficiency Not on any current medication Followed by Hematology outpatient Reason for continued inpatient stay Substantial Risk for: inability to function Time Spent With Patient Time: Total time managing care of this patient today ____ minutes.
--- NOTE | 2023-08-01 11:46 | P.CONOP_ITS ---
History of Present Illness HPI Consult date: 07/30/23 Chief complaint: Bipolar disorder with psychosis Narrative: 32 yo female admitted to [facility] who also c/o bilat ankle pain after stepping in a ditch in her yard and rolling her ankle. She states she has pain with weight bearing. She states she does have chronic ankle pain. Review of Systems 2 Review of Systems: per hpi [facility] Past Medical History Medical History Hypertension, essential Uncontrolled type 2 diabetes mellitus with hyperglycemia Leg edema Obesity, morbid Asthma Factor 5 Leiden mutation, heterozygous Seasonal asthma Family History Family History Father HTN (hypertension) Diabetes mellitus Mother Afib Maternal Grandfather No problems noted. Maternal Grandmother No problems noted. Paternal Grandmother Breast cancer Paternal Grandfather No problems noted. Sister No problems noted. Surgical History Surgical History History of ovarian cyst History of wisdom tooth extraction Social History Social History Household Members: Other Household Members Other:: father Housing: House Do you presently have visiting nurse or other home services: No Unable to assess alcohol history related to: Unknown Alcohol intake: never Patient Tobacco Use Status: Former Tobacco user Tobacco use type: Cigarette Years Smoked: 3 yrs Smoked in Last 30 Days: No e-Cigarette/Vaping Use: Never Used Use of substances other than those prescribed or required for medical reasons: No Currently Displaying Signs/Symptoms of Drug Intoxication Withdrawal: No Spiritual Healthcare Practices: Unknown; pt unable to participate due to mental status [employer] Healthcare Practices: Unknown; pt unable to participate due to mental status Cultural Healthcare Practices: Unknown; pt unable to participate due to mental status Advance Directives: No Advance Directives Information Provided: No Do you have thoughts of harming others: None Do you have a plan to hurt others: No Plan Recently lost weight without trying: Unsure Eating poorly because of decreased appetite: No Nutrition Risks: No Nutritional Risk Patient : No : No Poor oral hygiene: No service: No Current occupational status: employed Sexual orientation: Straight/Heterosexual Cognitive needs: No Hearing needs: No Vision needs: Yes Meds Allergies Allergy/AdvReac Type Severity Reaction Status Date / Time kiwi [KIWI] Allergy Mild HIVES Verified 07/07/23 10:07 mold [MOLD EXTRACTS*] Allergy Mild HIVES Verified 07/07/23 10:07 Active Medications: Current Medications Acetaminophen (Acetaminophen 325 Mg Tablet) 650 mg PO Q6H PRN PRN Reason: Headache/Pain Mild Scale (1-3) Last Admin: 07/28/23 22:15 Dose: 650 mg Al Hydroxide/Mg Hydroxide (Magnesium Hydrox/Alum Hydrox 30 Ml Oral.Susp) 30 ml PO Q6H PRN PRN Reason: Heartburn/Nausea Atenolol (Atenolol 25 Mg Tablet) 75 mg PO DAILY [facility]; Protocol Last Admin: 08/01/23 08:46 Dose: 75 mg Benztropine Mesylate (Benztropine Mesylate 0.5 Mg Tablet) 0.5 mg PO TID PRN PRN Reason: Extrapyramidal Effects Last Admin: 07/22/23 20:50 Dose: 0.5 mg Divalproex Sodium (Divalproex Sodium Sprinkles 125 Mg ) 2,000 mg PO BEDTIME [facility] Last Admin: 07/31/23 21:48 Dose: 2,000 mg Hydroxyzine HCl (Hydroxyzine Hcl 25 Mg Tablet) 25 mg PO Q6H PRN PRN Reason: Anxiety Last Admin: 07/25/23 08:03 Dose: 25 mg Lurasidone HCl (Lurasidone Hcl 20 Mg Tablet) 20 mg PO BEDTIME [facility] Last Admin: 07/31/23 21:54 Dose: 20 mg Lurasidone HCl (Lurasidone Hcl 40 Mg Tablet) 40 mg PO BEDTIME [facility] Last Admin: 07/31/23 21:53 Dose: 40 mg Magnesium Hydroxide (Milk Of Magnesia 30 Ml Oral.Susp) 30 ml PO DAILY PRN PRN Reason: Constipation Nystatin (Nystatin Powder 15 Gm Bottle) 1 appl TOPICAL BID [facility]; Protocol Last Admin: 08/01/23 08:47 Dose: 1 appl Olanzapine (Olanzapine Odt 10 Mg Tab.Rapdis) 20 mg TRANSLINGU BID [facility] Last Admin: 08/01/23 08:46 Dose: 20 mg Trazodone HCl (Trazodone Hcl 50 Mg Tablet) 50 mg PO BEDTIME MRX1 PRN PRN Reason: Insomnia Home Medications Medication Instructions Recorded Confirmed Last Taken Type Banophen 50 mg PO BID PRN Anxiety 07/21/23 07/21/23 Unknown History Latuda 80 mg PO DAILY 07/21/23 07/21/23 Unknown History trazodone 100 mg PO BEDTIME 07/21/23 07/21/23 Unknown History Physical Exam 2 Vital Signs: Vital Signs: Last Vital Signs Temp 97 F 08/01/23 08:15 Pulse 83 08/01/23 08:15 Resp 18 08/01/23 08:15 BP 134/71 08/01/23 08:15 Pulse Ox 98 08/01/23 08:15 O2 Del Method Room Air 08/01/23 08:15 BMI result Body Mass Index 63.1 Const: General: cooperative, healthy appearing and comfortable Extrem: Other: Right ankle skin intact, significant chronic edema. tenderness along the lateral side of the ankle, no pain along the medial side. No pain along the syndesmosis or achilles tendon. Full ROM without laxity. NVI. Left ankle skin intact, significant chronic edema. Mild tenderness along the soft tissues of the lateral aspect of the ankle. No pain along the lateral mal. No pain along the syndesmosis or achilles tendon. Full ROM without laxity. NVI. Results Labs 07/30/23 07:26 Labs: H & H 07/30/23 Range/Units 07:26 Hgb 13.2 (12.0-16.0) g/dl Hct 41.2 (37.0-47.0) % All other labs normal. Assessment and Plan (1) History of sprain of both ankles: Status: Acute Plan Xrays negative for acute fracture or dislocation possible old avulsion on the left ankle Recommend rest, ice and elevation. Ankle support as needed. Procedures Date of Service Date of Service: 08/05/23
[2023-08-01 18:00] VITALS: BP 133/63; PULSE 78; RESP 18; TEMP 36; O2SAT 99
[2023-08-01] MEDS: Divalproex Sodium Sprinkles 125 MG CAP.DR.SPR 2000 MG PO (21:54)
[2023-08-01] MEDS: Lurasidone HCl 40 MG TABLET PO (21:56)
[2023-08-01] MEDS: Lurasidone HCl 20 MG TABLET PO (22:00)
--- NOTE | 2023-08-02 | ECG_ITS ---
Test Reason : ekg protocol Blood Pressure : / mmHG Vent. Rate : 095 BPM Atrial Rate : 095 BPM P-R Int : 142 ms QRS Dur : 090 ms QT Int : 370 ms P-R-T Axes : 047 060 061 degrees QTc Int : 464 ms Normal sinus rhythm Nonspecific ST abnormality Abnormal ECG When compared with ECG of 09-JUN-2023 17:57, ST more depressed Inferior leads Referred By: Rianna Santos Electronically Signed By:MARTHA CHAVEZ MD
[2023-08-02 08:00] VITALS: BP 175/84; PULSE 69; RESP 16; TEMP 36.9; O2SAT 100
[2023-08-02] MEDS: OLANZapine ODT 10 MG TAB.RAPDIS 20 MG TRANSLINGU ×2 (09:14→20:14)
[2023-08-02] MEDS: atenoloL 25 MG TABLET 75 MG PO (09:14)
[2023-08-02] MEDS: Nystatin Powder 15 GM BOTTLE 1 APPL TOPICAL ×2 (09:15→20:21)
--- NOTE | 2023-08-02 15:36 | P.PNPSI_ITS ---
Subjective Subjective Date of Service: 08/02/23 Reason For Visit: Bipolar disorder with psychosis Subjective Notes: Conditional Voluntary Healthcare Proxy: No Guardianship: No Medical Problems Affecting Mental Status: No Interim History: Team reports pt is presenting in a calmer manner, less outbursts, less confusion, however, minimal attention to her ADL's. Message from pt's father who reports clear, coherent conversations over the past four days. Family would like to begin to plan discharge. Father will remain in subacute until 08/28/23. Pt will plan to go to [place] with her mother. Father asks that we provide teaching with mother on the importance of medicine compliance. Pt believes 08/05 will be an appropriate day to discharge. She is concerned about who will care for her dog Cheyenne as mother's apartment is not able to have pets. Pt reports adequate sleep, she reports thoughts are calm, non racing and clear. She does have some tangential moments in her presentation which are minimal and she reflects upon them being out of context in her conversation. Some napping, denies feeling oversedated at this time. Medication Compliance: Yes Side effects from medications: No Attending Groups: Intermittent Review of Systems Acute medical concerns: No Medical Review of Systems: unchanged Review of Systems Review of Systems Yes all other systems are reviewed and are negative Mental Status Exam Mental Status Exam Patient Appearance: Disheveled Patient Orientation: Person, Place and Situation Level of Consciousness: Alert Patient Behavior: Appropriate, Talkative, Anxious, Distractible and Good Eye Contact Mood Description: Calm and Relaxed Affect Description: Calm Patient Cognition Impaired: No Ability to Follow Directions: Good Speech Pattern: Spontaneous Speech Memory Description: Remote Impaired and Episodic Impaired Hallucinations: None Thought Content: positive for [place], positive for Circumstantial, positive for Perseveration and positive for Tangential (at times) Depressive Symptoms: Thoughts of /Suicide (denies SI, plan or intent) and Low Self Esteem Judgement: Fair Diagnostics Vital Signs (24Hr): Vital Signs - 24 hr 08/01/23 18:00 08/02/23 08:00 Temperature 96.8 F 98.5 F Pulse Rate 78 69 Respiratory Rate 18 16 Blood Pressure 133/63 175/84 H Pulse Oximetry 99 100 Oxygen Delivery Method Room Air Room Air BMI result Body Mass Index 63.1 Labs 07/30/23 07:26 Imaging Radiology Impressions: ITS Impressions Ankle X-Ray 07/27/23 14:25 IMPRESSION: 1. A small avulsion fragment of indeterminate chronicity versus accessory ossification center is seen adjacent to the medial malleolus. Please correlate clinically. 2. There is generalized soft tissue swelling of the left ankle. 3. There are calcaneal spurs. Ankle X-Ray 07/29/23 14:28 IMPRESSION: No acute osseous abnormality. Achilles tendon calcification/enthesophytes. Soft tissue swelling about the ankle. Medications Medications Current Medications Acetaminophen (Acetaminophen 325 Mg Tablet) 650 mg PO Q6H PRN PRN Reason: Headache/Pain Mild Scale (1-3) Last Admin: 07/28/23 22:15 Dose: 650 mg Al Hydroxide/Mg Hydroxide (Magnesium Hydrox/Alum Hydrox 30 Ml Oral.Susp) 30 ml PO Q6H PRN PRN Reason: Heartburn/Nausea Atenolol (Atenolol 25 Mg Tablet) 75 mg PO DAILY [facility]; Protocol Last Admin: 08/02/23 09:14 Dose: 75 mg Benztropine Mesylate (Benztropine Mesylate 0.5 Mg Tablet) 0.5 mg PO TID PRN PRN Reason: Extrapyramidal Effects Last Admin: 07/22/23 20:50 Dose: 0.5 mg Divalproex Sodium (Divalproex Sodium Sprinkles 125 Mg ) 2,000 mg PO BEDTIME [facility] Last Admin: 08/01/23 21:54 Dose: 2,000 mg Hydroxyzine HCl (Hydroxyzine Hcl 25 Mg Tablet) 25 mg PO Q6H PRN PRN Reason: Anxiety Last Admin: 07/25/23 08:03 Dose: 25 mg Lurasidone HCl (Lurasidone Hcl 20 Mg Tablet) 20 mg PO BEDTIME [facility] Last Admin: 08/01/23 22:00 Dose: 20 mg Lurasidone HCl (Lurasidone Hcl 40 Mg Tablet) 40 mg PO BEDTIME [facility] Last Admin: 08/01/23 21:56 Dose: 40 mg Magnesium Hydroxide (Milk Of Magnesia 30 Ml Oral.Susp) 30 ml PO DAILY PRN PRN Reason: Constipation Nystatin (Nystatin Powder 15 Gm Bottle) 1 appl TOPICAL BID [facility]; Protocol Last Admin: 08/02/23 09:15 Dose: 1 appl Olanzapine (Olanzapine Odt 10 Mg Tab.Rapdis) 20 mg TRANSLINGU BID [facility] Last Admin: 08/02/23 09:14 Dose: 20 mg Trazodone HCl (Trazodone Hcl 50 Mg Tablet) 50 mg PO BEDTIME MRX1 PRN PRN Reason: Insomnia Allergies Allergies Allergy/AdvReac Type Severity Reaction Status Date / Time kiwi [KIWI] Allergy Mild HIVES Verified 07/07/23 10:07 mold [MOLD EXTRACTS*] Allergy Mild HIVES Verified 07/07/23 10:07 Assessment & Plan Assessment & Plan (1) Bipolar disorder with psychotic features: Status: Acute Code(s): F31.9 - Bipolar disorder, unspecified Plan Pt is a 32-year-old female with a PMH significant for Bipolar I disorder, currently manic, diet controlled diabetes type 2, HTN, HLD, factor 5 deficiency, seasonal asthma, obesity class 3, admitted to [address], [facility]. Hospital course: 07/23 patient remains floridly manic; took Haldol, Zyprexa but refuse Depakote; will change to Depakote Sprinkles and make 1 time dosing to see if can improve adherence. Apparently Pt had been recently stabilized Depakote 07/24 patient took Depakote at bedtime last night and also 1 time Depakote dose today; patient much more calm, more organized; even showered today. Not yelling and milieu. Still with some delusional disorganized content -patient/mother asking if Ofelia chair available for patient to sleep in 07/25/23 Increase Olanzapine to 20 mg bid 07/26/23 Continue current regime and plan. Symptoms appear to be decreasing. 07/27/23 Increase Tenormin to 75 mg daily Ortho consult, Left ankle avulsion 07/28/2023 continue current treatment plan; patient with elevated blood pressures this morning, likely before atenolol; discussed with nurse who will retake 07/29/23 Continue current regime and plan of care Valproate level [facility] 07/30/2023: Increase Depakote to 2000 mg at bedtime as level 66. 07/31: no changes 08/01 continue tx. 08/02 continue tx Tentative discharge 08/05/23. EKG-Olanzapine use with Latuda Valproate level 08/04. PLAN: INCREASE TO Depakote DR [place] 1500 mg q.h.s.; patient refusing tablet Zyprexa; also will schedule at bedtime to help with increased adherence (if patient initially refuses may give it any other time) DC Depakote 750 b.i.d.; patient has been refusing Continue Haldol 5 mg b.i.d. Continue Zyprexa 10 mg b.i.d. Continue Latuda 60 mg at bedtime Continue Atenolol 50 mg daily HTN Well-controlled on current therapies Continue atenolol HLD Continue statin Seasonal allergies Continue home inhalers p.r.n. Diet-controlled diabetes type 2 Followed by endocrinology outpatient Diabetic diet Factor 5 deficiency Not on any current medication Followed by Hematology outpatient Patient educated on: medication risk/benefits and therapeutic strategies Informed Consent: understands and further education needed Reason for continued inpatient stay Substantial Risk for: rapid decompensation Time Spent With Patient Time: Total time managing care of this patient today ____ minutes.
[2023-08-02 16:40] VITALS: BP 128/59; PULSE 71; RESP 16; TEMP 36.2; O2SAT 99
[2023-08-02 17:14] LABS: COVID-19 Test Negative (Negative); IDNOW Serial# 9DB6401D
[2023-08-02] MEDS: Lurasidone HCl 40 MG TABLET PO (20:14)
[2023-08-02] MEDS: Lurasidone HCl 20 MG TABLET PO (20:14)
[2023-08-02] MEDS: Divalproex Sodium Sprinkles 125 MG CAP.DR.SPR 2000 MG PO (20:14)
[2023-08-03 08:00] VITALS: BP 142/85; PULSE 79; RESP 16; TEMP 37; O2SAT 99
[2023-08-03] MEDS: Nystatin Powder 15 GM BOTTLE 1 APPL TOPICAL ×2 (08:57→21:45)
[2023-08-03] MEDS: atenoloL 25 MG TABLET 75 MG PO (08:57)
[2023-08-03] MEDS: Nystatin Cream 15 GM TUBE 1 APPL TOPICAL ×2 (08:57→21:45)
[2023-08-03] MEDS: OLANZapine ODT 10 MG TAB.RAPDIS 20 MG TRANSLINGU (08:57)
[2023-08-03] MEDS: guaiFENesin LA 600 MG TAB.ER.12H PO (13:54)
[2023-08-03] MEDS: guaiFENesin DM 200/20/10 ML 10 ML SYRUP PO (13:54)
[2023-08-03 14:25] LABS: COVID-19 Test Positive (Negative); IDNOW Serial# BCCEAD1C
--- NOTE | 2023-08-03 16:35 | HO.PSYCHPN ---
Subjective Subjective Date of Service: 08/03/23 Reason For Visit: Bipolar disorder with psychosis Subjective Notes: Conditional Voluntary Healthcare Proxy: No Guardianship: No Medical Problems Affecting Mental Status: No Interim History: Pt reports physically not feeling well with cough, congestion. COIVD testing positive today. Planning discharge 08/05. Pt to go to mother's home in [place]. Father to be involved via phone in discharge planning. Pt is improving psychiatrically, however, with new cormorbidity may need more in pt time for care/support and assessment of medications/mental status/behaviors. Medication Compliance: Yes Side effects from medications: No Attending Groups: No Review of Systems Acute medical concerns: Yes New COVID + result. Medical Review of Systems: unchanged Review of Systems Constitutional: Reports body ache(s), Reports fatigue, Reports lethargy, Reports malaise and Reports weakness Respiratory: Reports chest congestion and Reports cough Reports weakness Endocrine: Reports fatigue Mental Status Exam Mental Status Exam Patient Appearance: Appropriate Patient Orientation: Person, Place, Time and Situation Level of Consciousness: Alert Patient Behavior: Appropriate, Talkative, Distractible and Good Eye Contact Mood Description: Appropriate Affect Description: Flat Patient Cognition Impaired: No Ability to Follow Directions: Good Speech Pattern: Spontaneous Speech Memory Description: Remote Impaired and Episodic Impaired Hallucinations: None Thought Content: positive for [place] and positive for Circumstantial Depressive Symptoms: Thoughts of /Suicide (denies SI, plan or intent) Judgement: Fair Diagnostics Vital Signs (24Hr): Vital Signs - 24 hr 08/02/23 16:40 08/03/23 08:00 Temperature 97.1 F 98.6 F Pulse Rate 71 79 Respiratory Rate 16 16 Blood Pressure 128/59 L 142/85 H Pulse Oximetry 99 99 Oxygen Delivery Method Room Air Room Air BMI result Body Mass Index 63.1 Labs 07/30/23 07:26 Labs: Laboratory Results - last 48 hr 08/02/23 08/03/23 16:30 14:06 COVID-19 ([facility]) Negative Positive A COVID-19 Clin Com See Note See Note Imaging Radiology Impressions: ITS Impressions Ankle X-Ray 07/27/23 14:25 IMPRESSION: 1. A small avulsion fragment of indeterminate chronicity versus accessory ossification center is seen adjacent to the medial malleolus. Please correlate clinically. 2. There is generalized soft tissue swelling of the left ankle. 3. There are calcaneal spurs. Ankle X-Ray 07/29/23 14:28 IMPRESSION: No acute osseous abnormality. Achilles tendon calcification/enthesophytes. Soft tissue swelling about the ankle. Medications Medications Current Medications Acetaminophen (Acetaminophen 325 Mg Tablet) 650 mg PO Q6H PRN PRN Reason: Headache/Pain Mild Scale (1-3) Last Admin: 07/28/23 22:15 Dose: 650 mg Al Hydroxide/Mg Hydroxide (Magnesium Hydrox/Alum Hydrox 30 Ml Oral.Susp) 30 ml PO Q6H PRN PRN Reason: Heartburn/Nausea Atenolol (Atenolol 25 Mg Tablet) 75 mg PO DAILY [facility]; Protocol Last Admin: 08/03/23 08:57 Dose: 75 mg Benztropine Mesylate (Benztropine Mesylate 0.5 Mg Tablet) 0.5 mg PO TID PRN PRN Reason: Extrapyramidal Effects Last Admin: 07/22/23 20:50 Dose: 0.5 mg Divalproex Sodium (Divalproex Sodium Sprinkles 125 Mg Cap.Spr) 2,000 mg PO BEDTIME [facility] Last Admin: 08/02/23 20:14 Dose: 2,000 mg Guaifenesin (Guaifenesin La 600 Mg Tab.Er.12h) 600 mg PO BID PRN PRN Reason: Congestion Last Admin: 08/03/23 13:54 Dose: 600 mg Guaifenesin/Dextromethorphan (Guaifenesin Dm 200/20/10 Ml 10 Ml Syrup) 10 ml PO Q6H PRN PRN Reason: cough Last Admin: 08/03/23 13:54 Dose: 10 ml Hydroxyzine HCl (Hydroxyzine Hcl 25 Mg Tablet) 25 mg PO Q6H PRN PRN Reason: Anxiety Last Admin: 07/25/23 08:03 Dose: 25 mg Lurasidone HCl (Lurasidone Hcl 20 Mg Tablet) 20 mg PO BEDTIME [facility] Last Admin: 08/02/23 20:14 Dose: 20 mg Lurasidone HCl (Lurasidone Hcl 40 Mg Tablet) 40 mg PO BEDTIME [facility] Last Admin: 08/02/23 20:14 Dose: 40 mg Magnesium Hydroxide (Milk Of Magnesia 30 Ml Oral.Susp) 30 ml PO DAILY PRN PRN Reason: Constipation Nystatin (Nystatin Powder 15 Gm Bottle) 1 appl TOPICAL BID [facility]; Protocol Last Admin: 08/03/23 08:57 Dose: 1 appl Nystatin (Nystatin Cream 15 Gm Tube) 1 appl TOPICAL BID [facility]; Protocol Last Admin: 08/03/23 08:57 Dose: 1 appl Olanzapine (Olanzapine Odt 10 Mg Tab.Rapdis) 20 mg TRANSLINGU BID [facility] Last Admin: 08/03/23 08:57 Dose: 20 mg Trazodone HCl (Trazodone Hcl 50 Mg Tablet) 50 mg PO BEDTIME MRX1 PRN PRN Reason: Insomnia Allergies Allergies Allergy/AdvReac Type Severity Reaction Status Date / Time kiwi [KIWI] Allergy Mild HIVES Verified 07/07/23 10:07 mold [MOLD EXTRACTS*] Allergy Mild HIVES Verified 07/07/23 10:07 Assessment & Plan Assessment & Plan (1) Bipolar disorder with psychotic features: Status: Acute Code(s): F31.9 - Bipolar disorder, unspecified Plan Pt is a 32-year-old female with a PMH significant for Bipolar I disorder, currently manic, diet controlled diabetes type 2, HTN, HLD, factor 5 deficiency, seasonal asthma, obesity class 3, admitted to [address], paranoia. Hospital course: 07/23 patient remains floridly manic; took Haldol, Zyprexa but refuse Depakote; will change to Depakote Sprinkles and make 1 time dosing to see if can improve adherence. Apparently Pt had been recently stabilized Depakote 07/24 patient took Depakote at bedtime last night and also 1 time Depakote dose today; patient much more calm, more organized; even showered today. Not yelling and milieu. Still with some delusional disorganized content -patient/mother asking if Ofleia chair available for patient to sleep in 07/25/23 Increase Olanzapine to 20 mg bid 07/26/23 Continue current regime and plan. Symptoms appear to be decreasing. 07/27/23 Increase Tenormin to 75 mg daily Ortho consult, Left ankle avulsion 07/28/2023 continue current treatment plan; patient with elevated blood pressures this morning, likely before atenolol; discussed with nurse who will retake 07/29/23 Continue current regime and plan of care Valproate level [facility] 07/30/2023: Increase Depakote to 2000 mg at bedtime as level 66. 07/31: no changes 08/01 continue tx. 08/02 continue tx Tentative discharge 08/05/23. EKG-Olanzapine use with Latuda Valproate level 08/04. 08/03/23: COVID + PRN cough medication, congestion medication. Continue to monitor. Question of postponing discharge to offer added support through illness. Decrease Olanzapine from 20 mg bid to 15 mg bid-pt is recompensating and does report sedation. PLAN: INCREASE TO Depakote DR [place] 1500 mg q.h.s.; patient refusing tablet Zyprexa; also will schedule at bedtime to help with increased adherence (if patient initially refuses may give it any other time) DC Depakote 750 b.i.d.; patient has been refusing Continue Haldol 5 mg b.i.d. Continue Zyprexa 10 mg b.i.d. Continue Latuda 60 mg at bedtime Continue Atenolol 50 mg daily HTN Well-controlled on current therapies Continue atenolol HLD Continue statin Seasonal allergies Continue home inhalers p.r.n. Diet-controlled diabetes type 2 Followed by endocrinology outpatient Diabetic diet Factor 5 deficiency Not on any current medication Followed by Hematology outpatient Patient educated on: medication risk/benefits, therapeutic strategies and medical condition Informed Consent: understands and further education needed Reason for continued inpatient stay Substantial Risk for: med/psych decompensation Time Spent With Patient Time: Total time managing care of this patient today ____ minutes.
[2023-08-03 17:15] VITALS: BP 133/76; PULSE 74; RESP 16; TEMP 36.6; O2SAT 96
[2023-08-03] MEDS: Lurasidone HCl 40 MG TABLET PO (21:38)
[2023-08-03] MEDS: Lurasidone HCl 20 MG TABLET PO (21:38)
[2023-08-03] MEDS: OLANZapine 7.5 MG TABLET 15 MG PO (21:38)
[2023-08-03] MEDS: Divalproex Sodium Sprinkles 125 MG CAP.DR.SPR 2000 MG PO (21:38)
[2023-08-04 08:20] VITALS: BP 137/7; PULSE 77; RESP 18; TEMP 36.5; O2SAT 98
[2023-08-04] MEDS: OLANZapine 7.5 MG TABLET 15 MG PO ×2 (09:58→20:55)
[2023-08-04] MEDS: atenoloL 25 MG TABLET 75 MG PO (09:58)
[2023-08-04] MEDS: guaiFENesin LA 600 MG TAB.ER.12H PO ×2 (10:00→18:42)
[2023-08-04] MEDS: guaiFENesin DM 200/20/10 ML 10 ML SYRUP PO ×2 (10:00→18:42)
--- NOTE | 2023-08-04 14:14 | P.PNPSI_ITS ---
Subjective Subjective Date of Service: 08/04/23 Reason For Visit: Bipolar disorder with psychosis Subjective Notes: Conditional Voluntary Interim History: Reviewed with . Patient presents delusional and paranoid. Pt stated, I'm having some anxiety. I don't want to . Someone put breast cancer in me. I'm also and lactating . Pt continued to make various paranoid statements such as, I'm a medium. I can connect with people from the past . Review of Systems Constitutional: Reports as per HPI Eyes: Reports as per HPI Reports as per HPI Cardiovascular: Reports as per HPI Respiratory: Reports as per HPI Gastrointestinal: Reports as per HPI Genitourinary: Reports as per HPI Musculoskeletal: Reports as per HPI Skin/Breast: Reports as per HPI Reports as per HPI Psychiatric: Reports as per HPI Endocrine: Reports as per HPI Hematologic/Lymphatic: Reports as per HPI Allergic/Immunologic: Reports as per HPI Mental Status Exam Mental Status Exam Narrative: Pt behavior is cooperative and calm; dressed in casual attire; mood is described as anxious ; eye contact appropriate; Speech is normal rate, volume and prosody and not pressured; paranoid, delusional; denies SI/HI/VH/AH. Patients insight and judgment are poor. Diagnostics Vital Signs (24Hr): Vital Signs - 24 hr 08/03/23 17:15 08/04/23 08:20 Temperature 97.9 F 97.7 F Pulse Rate 74 77 Respiratory Rate 16 18 Blood Pressure 133/76 137/7 L Pulse Oximetry 96 98 Oxygen Delivery Method Room Air Room Air BMI result Body Mass Index 63.1 Labs 07/30/23 07:26 Labs: Laboratory Results - last 48 hr 08/02/23 08/03/23 16:30 14:06 COVID-19 ([facility]) Negative Positive A COVID-19 Clin Com See Note See Note Imaging Radiology Impressions: ITS Impressions Ankle X-Ray 07/27/23 14:25 IMPRESSION: 1. A small avulsion fragment of indeterminate chronicity versus accessory ossification center is seen adjacent to the medial malleolus. Please correlate clinically. 2. There is generalized soft tissue swelling of the left ankle. 3. There are calcaneal spurs. Ankle X-Ray 07/29/23 14:28 IMPRESSION: No acute osseous abnormality. Achilles tendon calcification/enthesophytes. Soft tissue swelling about the ankle. Medications Medications Current Medications Acetaminophen (Acetaminophen 325 Mg Tablet) 650 mg PO Q6H PRN PRN Reason: Headache/Pain Mild Scale (1-3) Last Admin: 07/28/23 22:15 Dose: 650 mg Al Hydroxide/Mg Hydroxide (Magnesium Hydrox/Alum Hydrox 30 Ml Oral.Susp) 30 ml PO Q6H PRN PRN Reason: Heartburn/Nausea Atenolol (Atenolol 25 Mg Tablet) 75 mg PO DAILY INOCENCIO; Protocol Last Admin: 08/04/23 09:58 Dose: 75 mg Benztropine Mesylate (Benztropine Mesylate 0.5 Mg Tablet) 0.5 mg PO TID PRN PRN Reason: Extrapyramidal Effects Last Admin: 07/22/23 20:50 Dose: 0.5 mg Divalproex Sodium (Divalproex Sodium Sprinkles 125 Mg Cap.Dr.Spr) 2,000 mg PO BEDTIME INOCENCIO Last Admin: 08/03/23 21:38 Dose: 2,000 mg Guaifenesin (Guaifenesin La 600 Mg Tab.Er.12h) 600 mg PO BID PRN PRN Reason: Congestion Last Admin: 08/04/23 10:00 Dose: 600 mg Guaifenesin/Dextromethorphan (Guaifenesin Dm 200/20/10 Ml 10 Ml Syrup) 10 ml PO Q6H PRN PRN Reason: cough Last Admin: 08/04/23 10:00 Dose: 10 ml Hydroxyzine HCl (Hydroxyzine Hcl 25 Mg Tablet) 25 mg PO Q6H PRN PRN Reason: Anxiety Last Admin: 07/25/23 08:03 Dose: 25 mg Lurasidone HCl (Lurasidone Hcl 20 Mg Tablet) 20 mg PO BEDTIME INOCENCIO Last Admin: 08/03/23 21:38 Dose: 20 mg Lurasidone HCl (Lurasidone Hcl 40 Mg Tablet) 40 mg PO BEDTIME INOCENCIO Last Admin: 08/03/23 21:38 Dose: 40 mg Magnesium Hydroxide (Milk Of Magnesia 30 Ml Oral.Susp) 30 ml PO DAILY PRN PRN Reason: Constipation Nystatin (Nystatin Powder 15 Gm Bottle) 1 appl TOPICAL BID INOCENCIO; Protocol Last Admin: 08/04/23 10:05 Dose: Not Given Nystatin (Nystatin Cream 15 Gm Tube) 1 appl TOPICAL BID INOCENCIO; Protocol Last Admin: 08/04/23 10:05 Dose: Not Given Olanzapine (Olanzapine 7.5 Mg Tablet) 15 mg PO BID INOCENCIO Last Admin: 08/04/23 09:58 Dose: 15 mg Trazodone HCl (Trazodone Hcl 50 Mg Tablet) 50 mg PO BEDTIME MRX1 PRN PRN Reason: Insomnia Allergies Allergies Allergy/AdvReac Type Severity Reaction Status Date / Time kiwi [KIWI] Allergy Mild HIVES Verified 07/07/23 10:07 mold [MOLD EXTRACTS*] Allergy Mild HIVES Verified 07/07/23 10:07 Assessment & Plan Assessment & Plan (1) Bipolar disorder with psychotic features: Status: Acute Code(s): F31.9 - Bipolar disorder, unspecified Plan Pt is a 32-year-old female with a PMH significant for Bipolar I disorder, currently manic, diet controlled diabetes type 2, HTN, HLD, factor 5 deficiency, seasonal asthma, obesity class 3, admitted to [address] Hospital course: 07/23 patient remains floridly manic; took Haldol, Zyprexa but refuse Depakote; will change to Depakote Sprinkles and make 1 time dosing to see if can improve adherence. Apparently Pt had been recently stabilized Depakote 07/24 patient took Depakote at bedtime last night and also 1 time Depakote dose today; patient much more calm, more organized; even showered today. Not yelling and milieu. Still with some delusional disorganized content -patient/mother asking if Ofelia chair available for patient to sleep in 07/25/23 Increase Olanzapine to 20 mg bid 07/26/23 Continue current regime and plan. Symptoms appear to be decreasing. 07/27/23 Increase Tenormin to 75 mg daily Ortho consult, Left ankle avulsion 07/28/2023 continue current treatment plan; patient with elevated blood pressures this morning, likely before atenolol; discussed with nurse who will retake 07/29/23 Continue current regime and plan of care Valproate level CBCD 07/30/2023: Increase Depakote to 2000 mg at bedtime as level 66. 07/31: no changes 08/01 continue tx. 08/02 continue tx Tentative discharge 08/05/23. EKG-Olanzapine use with Latuda Valproate level 08/04. 08/03/23: COVID + PRN cough medication, congestion medication. Continue to monitor. Question of postponing discharge to offer added support through illness. Decrease Olanzapine from 20 mg bid to 15 mg bid-pt is recompensating and does report sedation. 08/04: Patient presents delusional and paranoid. Pt stated, I'm having some anxiety. I don't want to . Someone put breast cancer in me. I'm also and lactating . Pt continued to make various paranoid statements such as, I'm a medium. I can connect with people from the past . Continue current tx plan. PLAN: INCREASE TO Depakote DR [place] 1500 mg q.h.s.; patient refusing tablet Zyprexa; also will schedule at bedtime to help with increased adherence (if patient initially refuses may give it any other time) DC Depakote 750 b.i.d.; patient has been refusing Continue Haldol 5 mg b.i.d. Continue Zyprexa 10 mg b.i.d. Continue Latuda 60 mg at bedtime Continue Atenolol 50 mg daily HTN Well-controlled on current therapies Continue atenolol HLD Continue statin Seasonal allergies Continue home inhalers p.r.n. Diet-controlled diabetes type 2 Followed by endocrinology outpatient Diabetic diet Factor 5 deficiency Not on any current medication Followed by Hematology outpatient Patient educated on: diagnosis and medication risk/benefits Informed Consent: understands and further education needed Reason for continued inpatient stay Substantial Risk for: med/psych decompensation Time Spent With Patient Time: Total time managing care of this patient today _30___ minutes.
[2023-08-04 18:00] VITALS: BP 121/61; PULSE 77; TEMP 36.6; O2SAT 93
[2023-08-04] MEDS: Divalproex Sodium Sprinkles 125 MG CAP.DR.SPR 2000 MG PO (20:51)
[2023-08-04] MEDS: Lurasidone HCl 40 MG TABLET PO (20:55)
[2023-08-04] MEDS: Lurasidone HCl 20 MG TABLET PO (20:55)
[2023-08-04] MEDS: Nystatin Cream 15 GM TUBE 1 APPL TOPICAL (21:21)
[2023-08-05 10:15] VITALS: BP 137/74; PULSE 100; RESP 16; TEMP 36.1; O2SAT 93
[2023-08-05] MEDS: OLANZapine 7.5 MG TABLET 15 MG PO (10:24)
[2023-08-05] MEDS: atenoloL 25 MG TABLET 75 MG PO (10:24)
--- NOTE | 2023-08-05 12:53 | HO.PSYCHPN ---
Subjective Subjective Date of Service: 08/05/23 Reason For Visit: Bipolar disorder with psychosis Subjective Notes: Conditional Voluntary Healthcare Proxy: No Guardianship: No Medical Problems Affecting Mental Status: No Interim History: COVID +. Discharge is postponed as a result. T 96.9. Reports cough, fatigue, body aches. Denies SOB, intermittent headache. Incontinent of urine x 1. Presents with some psychotic content at times, thought blocking. Denies SI/HI/AH/VH. Resting in her room to manage fatigue. Medication Compliance: Yes Side effects from medications: No Attending Groups: No Review of Systems Acute medical concerns: Yes COVID+ Medical Review of Systems: unchanged Review of Systems Constitutional: Reports body ache(s), Reports fatigue, Reports headache(s) (intermittent), Reports lethargy and Reports malaise Comments: COVID+ Reports headache(s) (intermittent) Reports headache(s) (intermittent) Endocrine: Reports fatigue Mental Status Exam Mental Status Exam Patient Appearance: Fatigued and Disheveled Patient Orientation: Person, Place, Time and Situation Level of Consciousness: Alert Patient Behavior: Appropriate, Talkative, Fatigued, Distractible and Good Eye Contact Mood Description: Flat Affect Description: Flat Patient Cognition Impaired: No Ability to Follow Directions: Good Speech Pattern: Spontaneous Speech Memory Description: Remote Impaired and Episodic Impaired Hallucinations: None Delusions: Present Perceptual Disturbances: Depersonalization and Derealization Thought Process: Distracted and Slowed Thinking Thought Content: positive for [place], positive for Circumstantial, positive for Poverty of Content, positive for Thought Blocking, positive for Tangential and positive for Suicidal Ideation (denies) Depressive Symptoms: Increased Fatigue, Thoughts of /Suicide (denies SI, plan or intent), Loss of Energy and Difficulty Concentrating Judgement: Fair Diagnostics Vital Signs (24Hr): Vital Signs - 24 hr 08/04/23 18:00 08/05/23 10:15 Temperature 97.8 F 96.9 F Pulse Rate 77 100 Respiratory Rate 16 Blood Pressure 121/61 137/74 Pulse Oximetry 93 93 Oxygen Delivery Method Room Air Room Air BMI result Body Mass Index 63.1 Labs 07/30/23 07:26 Labs: Laboratory Results - last 48 hr 08/03/23 14:06 COVID-19 ([facility]) Positive A COVID-19 Clin Com See Note Imaging Radiology Impressions: ITS Impressions Ankle X-Ray 07/27/23 14:25 IMPRESSION: 1. A small avulsion fragment of indeterminate chronicity versus accessory ossification center is seen adjacent to the medial malleolus. Please correlate clinically. 2. There is generalized soft tissue swelling of the left ankle. 3. There are calcaneal spurs. Ankle X-Ray 07/29/23 14:28 IMPRESSION: No acute osseous abnormality. Achilles tendon calcification/enthesophytes. Soft tissue swelling about the ankle. Medications Medications Current Medications Acetaminophen (Acetaminophen 325 Mg Tablet) 650 mg PO Q6H PRN PRN Reason: Headache/Pain Mild Scale (1-3) Last Admin: 07/28/23 22:15 Dose: 650 mg Al Hydroxide/Mg Hydroxide (Magnesium Hydrox/Alum Hydrox 30 Ml Oral.Susp) 30 ml PO Q6H PRN PRN Reason: Heartburn/Nausea Atenolol (Atenolol 25 Mg Tablet) 75 mg PO DAILY INOCENCIO; Protocol Last Admin: 08/05/23 10:24 Dose: 75 mg Benztropine Mesylate (Benztropine Mesylate 0.5 Mg Tablet) 0.5 mg PO TID PRN PRN Reason: Extrapyramidal Effects Last Admin: 07/22/23 20:50 Dose: 0.5 mg Divalproex Sodium (Divalproex Sodium Sprinkles 125 Mg Darvin.Spr) 2,000 mg PO BEDTIME INOCENCIO Last Admin: 08/04/23 20:51 Dose: 2,000 mg Guaifenesin (Guaifenesin La 600 Mg Tab.Er.12h) 600 mg PO BID PRN PRN Reason: Congestion Last Admin: 08/04/23 18:42 Dose: 600 mg Guaifenesin/Dextromethorphan (Guaifenesin Dm 200/20/10 Ml 10 Ml Syrup) 10 ml PO Q6H PRN PRN Reason: cough Last Admin: 08/04/23 18:42 Dose: 10 ml Hydroxyzine HCl (Hydroxyzine Hcl 25 Mg Tablet) 25 mg PO Q6H PRN PRN Reason: Anxiety Last Admin: 07/25/23 08:03 Dose: 25 mg Loperamide HCl (Loperamide Hcl 2 Mg Capsule) 2 mg PO Q4H PRN PRN Reason: Diarrhea Lurasidone HCl (Lurasidone Hcl 20 Mg Tablet) 20 mg PO BEDTIME INOCENCIO Last Admin: 08/04/23 20:55 Dose: 20 mg Lurasidone HCl (Lurasidone Hcl 40 Mg Tablet) 40 mg PO BEDTIME INOCENCIO Last Admin: 08/04/23 20:55 Dose: 40 mg Magnesium Hydroxide (Milk Of Magnesia 30 Ml Oral.Susp) 30 ml PO DAILY PRN PRN Reason: Constipation Nystatin (Nystatin Powder 15 Gm Bottle) 1 appl TOPICAL BID INOCENCIO; Protocol Last Admin: 08/05/23 10:34 Dose: Not Given Nystatin (Nystatin Cream 15 Gm Tube) 1 appl TOPICAL BID INOCENCIO; Protocol Last Admin: 08/05/23 10:34 Dose: Not Given Olanzapine (Olanzapine 7.5 Mg Tablet) 15 mg PO BID INOCENCIO Last Admin: 08/05/23 10:24 Dose: 15 mg Trazodone HCl (Trazodone Hcl 50 Mg Tablet) 50 mg PO BEDTIME MRX1 PRN PRN Reason: Insomnia Allergies Allergies Allergy/AdvReac Type Severity Reaction Status Date / Time kiwi [KIWI] Allergy Mild HIVES Verified 07/07/23 10:07 mold [MOLD EXTRACTS*] Allergy Mild HIVES Verified 07/07/23 10:07 Assessment & Plan Assessment & Plan (1) Schizoaffective disorder, bipolar type: Status: Acute Code(s): F25.0 - Schizoaffective disorder, bipolar type (2) COVID-19: Status: Acute Code(s): U07.1 - COVID-19 Plan 08/05/23- COVID 19- continue to monitor. Probable discharge 08/08. Continue to assess symptoms throughout this medical illness. Patient educated on: therapeutic strategies Informed Consent: further education needed Reason for continued inpatient stay Substantial Risk for: med/psych decompensation Time Spent With Patient Time: Total time managing care of this patient today ____ minutes.
[2023-08-05 18:00] VITALS: BP 132/75; PULSE 71; RESP 18; O2SAT 96
[2023-08-05] MEDS: Lurasidone HCl 40 MG TABLET PO (20:05)
[2023-08-05] MEDS: Lurasidone HCl 20 MG TABLET PO (20:05)
[2023-08-05] MEDS: OLANZapine 10 MG TABLET 20 MG PO (20:05)
[2023-08-05] MEDS: Divalproex Sodium Sprinkles 125 MG CAP.DR.SPR 2000 MG PO (20:06)
--- NOTE | 2023-08-06 08:42 | HO.PSYCHPN ---
Subjective Subjective Date of Service: 08/06/23 Reason For Visit: Bipolar disorder with psychosis Subjective Notes: Conditional Voluntary Interim History: Pt was seen and discussed with team. COVID+. She reports feeling improved this a.m. She is medication compliant and reports she is eating and sleeping adequately. She discussed discharge. Believes she will be going home alone until her father returns from SNF on 08/28. She reports anxiety about this-We discussed extending her admission as she recovers from COVID and she will consider this. Medication Compliance: Yes Side effects from medications: No Attending Groups: No Review of Systems Acute medical concerns: Yes COVID Medical Review of Systems: unchanged Review of Systems Review of Systems Yes all other systems are reviewed and are negative Mental Status Exam Mental Status Exam Patient Appearance: Fatigued and Disheveled Patient Orientation: Person, Place, Time and Situation Level of Consciousness: Alert Patient Behavior: Appropriate, Talkative, Fatigued, Distractible and Good Eye Contact Mood Description: Flat Affect Description: Flat Patient Cognition Impaired: No Ability to Follow Directions: Good Speech Pattern: Spontaneous Speech Memory Description: Remote Impaired and Episodic Impaired Hallucinations: None Delusions: Not Present Thought Process: Distracted and Slowed Thinking Thought Content: positive for [place], positive for Circumstantial, positive for Tangential and positive for Suicidal Ideation (denies) Depressive Symptoms: Increased Fatigue, Thoughts of /Suicide (denies SI, plan or intent) and Loss of Energy Judgement: Fair Diagnostics Vital Signs (24Hr): Vital Signs - 24 hr 08/05/23 10:15 08/05/23 18:00 Temperature 96.9 F Pulse Rate 100 71 Respiratory Rate 16 18 Blood Pressure 137/74 132/75 Pulse Oximetry 93 96 Oxygen Delivery Method Room Air Room Air BMI result Body Mass Index 63.1 Labs 07/30/23 07:26 Labs: Refused diagnostics 08/04/23. Imaging Radiology Impressions: ITS Impressions Ankle X-Ray 07/27/23 14:25 IMPRESSION: 1. A small avulsion fragment of indeterminate chronicity versus accessory ossification center is seen adjacent to the medial malleolus. Please correlate clinically. 2. There is generalized soft tissue swelling of the left ankle. 3. There are calcaneal spurs. Ankle X-Ray 07/29/23 14:28 IMPRESSION: No acute osseous abnormality. Achilles tendon calcification/enthesophytes. Soft tissue swelling about the ankle. Medications Medications Current Medications Acetaminophen (Acetaminophen 325 Mg Tablet) 650 mg PO Q6H PRN PRN Reason: Headache/Pain Mild Scale (1-3) Last Admin: 07/28/23 22:15 Dose: 650 mg Al Hydroxide/Mg Hydroxide (Magnesium Hydrox/Alum Hydrox 30 Ml Oral.Susp) 30 ml PO Q6H PRN PRN Reason: Heartburn/Nausea Atenolol (Atenolol 25 Mg Tablet) 75 mg PO DAILY INOCENCIO; Protocol Last Admin: 08/05/23 10:24 Dose: 75 mg Benzocaine (Throat Lozenge, Medicated Lozenge) 1 lozenge MUCOUS MEM Q2H PRN PRN Reason: Sore Throat Benztropine Mesylate (Benztropine Mesylate 0.5 Mg Tablet) 0.5 mg PO TID PRN PRN Reason: Extrapyramidal Effects Last Admin: 07/22/23 20:50 Dose: 0.5 mg Divalproex Sodium (Divalproex Sodium Sprinkles 125 Mg Cap.Spr) 2,000 mg PO BEDTIME INOCENCIO Last Admin: 08/05/23 20:06 Dose: 2,000 mg Guaifenesin (Guaifenesin La 600 Mg Tab.Er.12h) 600 mg PO BID PRN PRN Reason: Congestion Last Admin: 08/04/23 18:42 Dose: 600 mg Guaifenesin/Dextromethorphan (Guaifenesin Dm 200/20/10 Ml 10 Ml Syrup) 10 ml PO Q6H PRN PRN Reason: cough Last Admin: 08/04/23 18:42 Dose: 10 ml Hydroxyzine HCl (Hydroxyzine Hcl 25 Mg Tablet) 25 mg PO Q6H PRN PRN Reason: Anxiety Last Admin: 07/25/23 08:03 Dose: 25 mg Loperamide HCl (Loperamide Hcl 2 Mg Capsule) 2 mg PO Q4H PRN PRN Reason: Diarrhea Lurasidone HCl (Lurasidone Hcl 20 Mg Tablet) 20 mg PO BEDTIME INOCENCIO Last Admin: 08/05/23 20:05 Dose: 20 mg Lurasidone HCl (Lurasidone Hcl 40 Mg Tablet) 40 mg PO BEDTIME INOCENCIO Last Admin: 08/05/23 20:05 Dose: 40 mg Magnesium Hydroxide (Milk Of Magnesia 30 Ml Oral.Susp) 30 ml PO DAILY PRN PRN Reason: Constipation Nystatin (Nystatin Powder 15 Gm Bottle) 1 appl TOPICAL BID INOCENCIO; Protocol Last Admin: 08/05/23 20:07 Dose: Not Given Nystatin (Nystatin Cream 15 Gm Tube) 1 appl TOPICAL BID INOCENCIO; Protocol Last Admin: 08/05/23 20:06 Dose: Not Given Olanzapine (Olanzapine 10 Mg Tablet) 20 mg PO BID INOCENCIO Last Admin: 08/05/23 20:05 Dose: 20 mg Trazodone HCl (Trazodone Hcl 50 Mg Tablet) 50 mg PO BEDTIME MRX1 PRN PRN Reason: Insomnia Allergies Allergies Allergy/AdvReac Type Severity Reaction Status Date / Time kiwi [KIWI] Allergy Mild HIVES Verified 07/07/23 10:07 mold [MOLD EXTRACTS*] Allergy Mild HIVES Verified 07/07/23 10:07 Assessment & Plan Assessment & Plan (1) Schizoaffective disorder, bipolar type: Status: Acute Code(s): F25.0 - Schizoaffective disorder, bipolar type (2) COVID-19: Status: Acute Code(s): U07.1 - COVID-19 Plan 08/05/23- COVID 19- continue to monitor. Probable discharge 08/08. Continue to assess symptoms throughout this medical illness. 08/06/23- Continue current regime and tentative plan. Patient educated on: therapeutic strategies Informed Consent: further education needed Reason for continued inpatient stay Substantial Risk for: rapid decompensation and med/psych decompensation Time Spent With Patient Time: Total time managing care of this patient today ____ minutes.
[2023-08-06] MEDS: guaiFENesin LA 600 MG TAB.ER.12H PO (09:14)
[2023-08-06] MEDS: OLANZapine 10 MG TABLET 20 MG PO ×2 (09:14→21:22)
[2023-08-06] MEDS: atenoloL 25 MG TABLET 75 MG PO (09:14)
[2023-08-06 09:48] VITALS: BP 144/97; PULSE 74; RESP 18; TEMP 36.6; O2SAT 98
[2023-08-06 16:56] VITALS: BP 126/76; PULSE 80; TEMP 36.4; O2SAT 99
[2023-08-06] MEDS: Divalproex Sodium Sprinkles 125 MG CAP.DR.SPR 2000 MG PO (21:20)
[2023-08-06] MEDS: Lurasidone HCl 20 MG TABLET PO (21:22)
[2023-08-06] MEDS: Lurasidone HCl 40 MG TABLET PO (21:22)
[2023-08-07 08:00] VITALS: BP 147/89; PULSE 83; TEMP 36.1; O2SAT 96
[2023-08-07] MEDS: OLANZapine 10 MG TABLET 20 MG PO ×2 (09:29→21:09)
[2023-08-07] MEDS: atenoloL 25 MG TABLET 75 MG PO (09:29)
[2023-08-07] MEDS: Throat Lozenge, Medicated LOZENGE 1 LOZENGE MUCOUS MEM (10:17)
[2023-08-07] MEDS: guaiFENesin LA 600 MG TAB.ER.12H PO (10:17)
[2023-08-07] MEDS: guaiFENesin DM 200/20/10 ML 10 ML SYRUP PO (10:17)
--- NOTE | 2023-08-07 14:23 | P.PNPSI_ITS ---
Subjective Subjective Date of Service: 08/07/23 Reason For Visit: Bipolar disorder with psychosis Subjective Notes: Conditional Voluntary Healthcare Proxy: No Guardianship: No Medical Problems Affecting Mental Status: No Interim History: Pt seen, reviewed with team Agreed to labs on 08/08. Agreed to postpone discharge as she is not feeling well. Recovery from covid is slow. Incontinent of urine x 2 in the past 48 hours. Reports sinus congestion She did report she will tell her mother she wants to go to her home, not mom's home when discharged. She hopes for Tuesday. Asks about podiatry appt, [employer] appt and discussed concerns about taking care of her dogCheyenne. Medication Compliance: Yes Side effects from medications: No Attending Groups: No Review of Systems Acute medical concerns: Yes COVID+ Medical Review of Systems: unchanged Review of Systems Respiratory: Reports chest congestion and Reports other (sinus congestion) Mental Status Exam Mental Status Exam Patient Appearance: Fatigued and Disheveled Patient Orientation: Person, Place, Time and Situation Level of Consciousness: Alert Patient Behavior: Appropriate, Talkative, Fatigued, Distractible and Good Eye Contact Mood Description: Flat Affect Description: Flat Patient Cognition Impaired: No Ability to Follow Directions: Good Speech Pattern: Spontaneous Speech Memory Description: Remote Impaired and Episodic Impaired Hallucinations: None Delusions: Not Present Thought Process: Distracted and Slowed Thinking Thought Content: positive for [place], positive for Circumstantial, positive for Tangential and positive for Suicidal Ideation (denies) Depressive Symptoms: Increased Fatigue, Thoughts of /Suicide (denies SI, plan or intent) and Loss of Energy Judgement: Fair Diagnostics Vital Signs (24Hr): Vital Signs - 24 hr 08/06/23 16:56 08/07/23 08:00 Temperature 97.5 F 96.9 F Pulse Rate 80 83 Blood Pressure 126/76 147/89 H Pulse Oximetry 99 96 Oxygen Delivery Method Room Air Room Air BMI result Body Mass Index 63.1 Labs 07/30/23 07:26 Imaging Radiology Impressions: ITS Impressions Ankle X-Ray 07/27/23 14:25 IMPRESSION: 1. A small avulsion fragment of indeterminate chronicity versus accessory ossification center is seen adjacent to the medial malleolus. Please correlate clinically. 2. There is generalized soft tissue swelling of the left ankle. 3. There are calcaneal spurs. Ankle X-Ray 07/29/23 14:28 IMPRESSION: No acute osseous abnormality. Achilles tendon calcification/enthesophytes. Soft tissue swelling about the ankle. Medications Medications Current Medications Acetaminophen (Acetaminophen 325 Mg Tablet) 650 mg PO Q6H PRN PRN Reason: Headache/Pain Mild Scale (1-3) Last Admin: 07/28/23 22:15 Dose: 650 mg Al Hydroxide/Mg Hydroxide (Magnesium Hydrox/Alum Hydrox 30 Ml Oral.Susp) 30 ml PO Q6H PRN PRN Reason: Heartburn/Nausea Atenolol (Atenolol 25 Mg Tablet) 75 mg PO DAILY INOCENCIO; Protocol Last Admin: 08/07/23 09:29 Dose: 75 mg Benzocaine (Throat Lozenge, Medicated Lozenge) 1 lozenge MUCOUS MEM Q2H PRN PRN Reason: Sore Throat Last Admin: 08/07/23 10:17 Dose: 1 lozenge Benztropine Mesylate (Benztropine Mesylate 0.5 Mg Tablet) 0.5 mg PO TID PRN PRN Reason: Extrapyramidal Effects Last Admin: 07/22/23 20:50 Dose: 0.5 mg Divalproex Sodium (Divalproex Sodium Sprinkles 125 Mg Cap.Spr) 2,000 mg PO BEDTIME INOCENCIO Last Admin: 08/06/23 21:20 Dose: 2,000 mg Guaifenesin (Guaifenesin La 600 Mg Tab.Er.12h) 600 mg PO BID PRN PRN Reason: Congestion Last Admin: 08/07/23 10:17 Dose: 600 mg Guaifenesin/Dextromethorphan (Guaifenesin Dm 200/20/10 Ml 10 Ml Syrup) 10 ml PO Q6H PRN PRN Reason: cough Last Admin: 08/07/23 10:17 Dose: 10 ml Hydroxyzine HCl (Hydroxyzine Hcl 25 Mg Tablet) 25 mg PO Q6H PRN PRN Reason: Anxiety Last Admin: 07/25/23 08:03 Dose: 25 mg Loperamide HCl (Loperamide Hcl 2 Mg Capsule) 2 mg PO Q4H PRN PRN Reason: Diarrhea Lurasidone HCl (Lurasidone Hcl 20 Mg Tablet) 20 mg PO BEDTIME INOCENCIO Last Admin: 08/06/23 21:22 Dose: 20 mg Lurasidone HCl (Lurasidone Hcl 40 Mg Tablet) 40 mg PO BEDTIME [facility] Last Admin: 08/06/23 21:22 Dose: 40 mg Magnesium Hydroxide (Milk Of Magnesia 30 Ml Oral.Susp) 30 ml PO DAILY PRN PRN Reason: Constipation Nystatin (Nystatin Powder 15 Gm Bottle) 1 appl TOPICAL BID [facility]; Protocol Last Admin: 08/07/23 10:17 Dose: Not Given Nystatin (Nystatin Cream 15 Gm Tube) 1 appl TOPICAL BID INOCENCIO; Protocol Last Admin: 08/07/23 10:17 Dose: Not Given Olanzapine (Olanzapine 10 Mg Tablet) 20 mg PO BID [facility] Last Admin: 08/07/23 09:29 Dose: 20 mg Trazodone HCl (Trazodone Hcl 50 Mg Tablet) 50 mg PO BEDTIME MRX1 PRN PRN Reason: Insomnia Allergies Allergies Allergy/AdvReac Type Severity Reaction Status Date / Time kiwi [KIWI] Allergy Mild HIVES Verified 07/07/23 10:07 mold [MOLD EXTRACTS*] Allergy Mild HIVES Verified 07/07/23 10:07 Assessment & Plan Assessment & Plan (1) Schizoaffective disorder, bipolar type: Status: Acute Code(s): F25.0 - Schizoaffective disorder, bipolar type (2) COVID-19: Status: Acute Code(s): U07.1 - COVID-19 Plan 08/05/23- COVID 19- continue to monitor. Probable discharge 08/08. Continue to assess symptoms throughout this medical illness. 08/06/23- Continue current regime and tentative plan. 08/07/23- Labs for the a.m. A1C, Valproate Level, CBCD, CMP. Pt agrees to comply. Postpone discharge due to illness. Patient educated on: medication risk/benefits, therapeutic strategies and medical condition Informed Consent: further education needed Reason for continued inpatient stay Substantial Risk for: med/psych decompensation Time Spent With Patient Time: Total time managing care of this patient today ____ minutes.
[2023-08-07 17:31] VITALS: BP 132/77; PULSE 69; RESP 18; TEMP 36.6; O2SAT 96
[2023-08-07] MEDS: Lurasidone HCl 40 MG TABLET PO (21:01)
[2023-08-07] MEDS: Lurasidone HCl 20 MG TABLET PO (21:02)
[2023-08-07] MEDS: Divalproex Sodium Sprinkles 125 MG CAP.DR.SPR 2000 MG PO (21:02)
[2023-08-08 07:57] LABS: MANUAL DIFF FLAG NO
[2023-08-08 08:04] LABS: Basophils Percent Auto 0.6 % (0-2); Eosinophils Absolute Auto 0.1 X10*3/uL (0.0-0.4); Eosinophils Percent Auto 1.8 % (0-4); Hematocrit 40.7 % (37.0-47.0); Hemoglobin 13.2 g/dl (12.0-16.0); Imm Gran Abs Auto 0.04 X10*3/uL (0.00-0.03); Imm Gran Pct Auto 0.6 % (0.0-0.4); Lymphocytes Absolute Auto 2.7 X10*3/uL (1.2-4.9); Lymphocytes Percent Auto 40.7 % (20-40); Mean Corpuscular HGB Conc 32.4 g/dl (31.0-35.0); Mean Corpuscular Volume 86.4 fL (80.0-98.0); Monocytes Absolute Auto 0.5 X10*3/uL (0.1-1.2); Monocytes Percent Auto 7.1 % (2-11); Neutrophils Absolute Auto 3.3 x10*3/uL (2.0-8.3); Neutrophils Percent Auto 49.2 % (45-73); Platelet Count 146 X10*3/uL (160-400); Red Blood Count 4.71 X10*6/uL (4.20-5.50); Red Cell Distribution Width 13.6 % (11.0-16.0); White Blood Count 6.6 X10*3/uL (4.8-10.8)
[2023-08-08 08:12] LABS: Valproate 77.1 mcg/mL (50.0-100.0)
[2023-08-08 08:14] LABS: Alanine Aminotransferase 11 U/L (0-31); Albumin Level 3.9 g/dL (3.5-5.0); Alkaline Phosphatase 60 U/L (39-117); Anion Gap 15 (12-20); Aspartate Amino Transferase 12 U/L (5-31); Bilirubin Total 0.4 mg/dL (0.0-1.0); Blood Urea Nitrogen 13 mg/dL (9-16); Calcium 9.5 mg/dL (8.4-10.2); Carbon Dioxide 31 mmol/L (22-29); Chloride 104 mmol/L (96-108); Creatinine Clr Calc Pharmacy 206.9; Estimated Glomerular Filt Rate > 60; Glucose Random 100 mg/dL (60-115); Potassium 4.2 mmol/L (3.3-5.1); Sodium 146 mmol/L (135-145); Total Protein 7.4 g/dL (6.5-8.0)
[2023-08-08 08:30] LABS: Estimated Average Glucose 134 mg/dL; Hemoglobin A1c % 6.3 % (<6.0)
[2023-08-08] MEDS: OLANZapine 10 MG TABLET 20 MG PO ×2 (09:02→19:25)
[2023-08-08] MEDS: atenoloL 25 MG TABLET 75 MG PO (09:02)
[2023-08-08] MEDS: guaiFENesin LA 600 MG TAB.ER.12H PO ×2 (09:03→19:27)
[2023-08-08] MEDS: guaiFENesin DM 200/20/10 ML 10 ML SYRUP PO ×2 (09:03→19:27)
[2023-08-08 09:07] VITALS: BP 145/61; PULSE 78; TEMP 36.6; O2SAT 97
--- NOTE | 2023-08-08 09:34 | HO.PSYCHPN ---
Subjective Subjective Date of Service: 08/08/23 Reason For Visit: Bipolar disorder with psychosis Subjective Notes: Conditional Voluntary Healthcare Proxy: No Guardianship: No Medical Problems Affecting Mental Status: No Interim History: Pt reports still feeling weak, tired with sinus congestion, cough, fatigue. Labs completed. VPA 77.1. [place] 146, AIC 6.3, Urine pending, r/o UTI. Incontinent of urine this a.m. Denies SI, HI, AH, VH Discussed with pt's father, who agrees pt should remain in pt a few more days. Pt concurs. I don't feel good enough to leave yet. Mother would like pt to leave. Father concurs pt should remain as she is considering going home alone and not staying with mother in [place] after discharge. Medication Compliance: Yes Side effects from medications: No Attending Groups: No Review of Systems Acute medical concerns: No COVID+ Medical Review of Systems: unchanged Review of Systems Constitutional: Reports fatigue and Reports lethargy Respiratory: Reports cough and Reports other (sinus congestion) Endocrine: Reports fatigue Mental Status Exam Mental Status Exam Patient Appearance: Fatigued and Disheveled Patient Orientation: Person, Place, Time and Situation Level of Consciousness: Alert Patient Behavior: Appropriate, Talkative, Fatigued, Distractible and Good Eye Contact Mood Description: Flat Affect Description: Flat Patient Cognition Impaired: No Ability to Follow Directions: Good Speech Pattern: Spontaneous Speech Memory Description: Remote Impaired and Episodic Impaired Hallucinations: None Delusions: Not Present Thought Process: Distracted and Slowed Thinking Thought Content: positive for [place], positive for Circumstantial, positive for Tangential and positive for Suicidal Ideation (denies) Depressive Symptoms: Increased Fatigue, Thoughts of /Suicide (denies SI, plan or intent) and Loss of Energy Judgement: Fair Diagnostics Vital Signs (24Hr): Vital Signs - 24 hr 08/07/23 17:31 08/08/23 09:07 Temperature 97.9 F 97.8 F Pulse Rate 69 78 Respiratory Rate 18 Blood Pressure 132/77 145/61 H Pulse Oximetry 96 97 Oxygen Delivery Method Room Air Room Air BMI result Body Mass Index 63.1 Labs 08/08/23 07:50 08/08/23 07:50 Labs: Laboratory Results - last 48 hr 08/08/23 07:50 WBC 6.6 RBC 4.71 Hgb 13.2 Hct 40.7 MCV 86.4 MCH 28.0 MCHC 32.4 RDW 13.6 Plt Count 146 L MPV 10.0 Immature Gran % (Auto) 0.6 H Neut % (Auto) 49.2 Lymph % (Auto) 40.7 H [place] % (Auto) 7.1 Eos % (Auto) 1.8 Baso % (Auto) 0.6 Lymph # (Auto) 2.7 [place] # (Auto) 0.5 Eos # (Auto) 0.1 Baso # (Auto) 0.0 Abs Immat Gran (auto) 0.04 H Absolute Neuts (auto) 3.3 Absolute Nucleated RBC 0.000 Nucleated RBC % (auto) 0.0 Sodium 146 H Potassium 4.2 Chloride 104 Carbon Dioxide 31 H Anion Gap 15 BUN 13 Creatinine 0.70 Estim Creat Clear Calc 206.9 Estimated GFR > 60 Random Glucose 100 Estimat Average Glucose 134 Hemoglobin A1c % 6.3 H Calcium 9.5 Total Bilirubin 0.4 AST 12 ALT 11 Alkaline Phosphatase 60 Total Protein 7.4 Albumin 3.9 Valproic Acid 77.1 Imaging Radiology Impressions: ITS Impressions Ankle X-Ray 07/27/23 14:25 IMPRESSION: 1. A small avulsion fragment of indeterminate chronicity versus accessory ossification center is seen adjacent to the medial malleolus. Please correlate clinically. 2. There is generalized soft tissue swelling of the left ankle. 3. There are calcaneal spurs. Ankle X-Ray 07/29/23 14:28 IMPRESSION: No acute osseous abnormality. Achilles tendon calcification/enthesophytes. Soft tissue swelling about the ankle. Medications Medications Current Medications Acetaminophen (Acetaminophen 325 Mg Tablet) 650 mg PO Q6H PRN PRN Reason: Headache/Pain Mild Scale (1-3) Last Admin: 07/28/23 22:15 Dose: 650 mg Al Hydroxide/Mg Hydroxide (Magnesium Hydrox/Alum Hydrox 30 Ml Oral.Susp) 30 ml PO Q6H PRN PRN Reason: Heartburn/Nausea Atenolol (Atenolol 25 Mg Tablet) 75 mg PO DAILY INOCENCIO; Protocol Last Admin: 08/08/23 09:02 Dose: 75 mg Benzocaine (Throat Lozenge, Medicated Lozenge) 1 lozenge MUCOUS MEM Q2H PRN PRN Reason: Sore Throat Last Admin: 08/07/23 10:17 Dose: 1 lozenge Benztropine Mesylate (Benztropine Mesylate 0.5 Mg Tablet) 0.5 mg PO TID PRN PRN Reason: Extrapyramidal Effects Last Admin: 07/22/23 20:50 Dose: 0.5 mg Divalproex Sodium (Divalproex Sodium Sprinkles 125 Mg Cap.Dr.Spr) 2,000 mg PO BEDTIME INOCENCIO Last Admin: 08/07/23 21:02 Dose: 2,000 mg Guaifenesin (Guaifenesin La 600 Mg Tab.Er.12h) 600 mg PO BID PRN PRN Reason: Congestion Last Admin: 08/08/23 09:03 Dose: 600 mg Guaifenesin/Dextromethorphan (Guaifenesin Dm 200/20/10 Ml 10 Ml Syrup) 10 ml PO Q6H PRN PRN Reason: cough Last Admin: 08/08/23 09:03 Dose: 10 ml Hydroxyzine HCl (Hydroxyzine Hcl 25 Mg Tablet) 25 mg PO Q6H PRN PRN Reason: Anxiety Last Admin: 07/25/23 08:03 Dose: 25 mg Loperamide HCl (Loperamide Hcl 2 Mg Capsule) 2 mg PO Q4H PRN PRN Reason: Diarrhea Lurasidone HCl (Lurasidone Hcl 20 Mg Tablet) 20 mg PO BEDTIME INOCENCIO Last Admin: 08/07/23 21:02 Dose: 20 mg Lurasidone HCl (Lurasidone Hcl 40 Mg Tablet) 40 mg PO BEDTIME INOCENCIO Last Admin: 08/07/23 21:01 Dose: 40 mg Magnesium Hydroxide (Milk Of Magnesia 30 Ml Oral.Susp) 30 ml PO DAILY PRN PRN Reason: Constipation Nystatin (Nystatin Powder 15 Gm Bottle) 1 appl TOPICAL BID INOCENCIO; Protocol Last Admin: 08/07/23 21:15 Dose: Not Given Nystatin (Nystatin Cream 15 Gm Tube) 1 appl TOPICAL BID INOCENCIO; Protocol Last Admin: 08/07/23 21:15 Dose: Not Given Olanzapine (Olanzapine 10 Mg Tablet) 20 mg PO BID INOCENCIO Last Admin: 08/08/23 09:02 Dose: 20 mg Trazodone HCl (Trazodone Hcl 50 Mg Tablet) 50 mg PO BEDTIME MRX1 PRN PRN Reason: Insomnia Allergies Allergies Allergy/AdvReac Type Severity Reaction Status Date / Time kiwi [KIWI] Allergy Mild HIVES Verified 07/07/23 10:07 mold [MOLD EXTRACTS*] Allergy Mild HIVES Verified 07/07/23 10:07 Assessment & Plan Assessment & Plan (1) Schizoaffective disorder, bipolar type: Status: Acute Code(s): F25.0 - Schizoaffective disorder, bipolar type (2) COVID-19: Status: Acute Code(s): U07.1 - COVID-19 Plan 08/05/23- COVID 19- continue to monitor. Probable discharge 08/08. Continue to assess symptoms throughout this medical illness. 08/06/23- Continue current regime and tentative plan. 08/07/23- Labs for the a.m. A1C, Valproate Level, CBCD, CMP. Pt agrees to comply. Postpone discharge due to illness. 08/08/23- Continue current regime and plan of care. Patient educated on: medication risk/benefits, therapeutic strategies and medical condition Informed Consent: understands and further education needed Reason for continued inpatient stay Substantial Risk for: med/psych decompensation Time Spent With Patient Time: Total time managing care of this patient today ____ minutes.
[2023-08-08 18:00] VITALS: BP 139/83; PULSE 73; RESP 17; TEMP 36.1; O2SAT 98
[2023-08-08] MEDS: Divalproex Sodium Sprinkles 125 MG CAP.DR.SPR 2000 MG PO (19:23)
[2023-08-08] MEDS: Lurasidone HCl 40 MG TABLET PO (19:25)
[2023-08-08] MEDS: Throat Lozenge, Medicated LOZENGE 1 LOZENGE MUCOUS MEM (19:26)
[2023-08-08] MEDS: Lurasidone HCl 20 MG TABLET PO (19:26)
[2023-08-08] MEDS: traZODone HCL 50 MG TABLET PO (19:27)
[2023-08-09 08:35] VITALS: BP 124/81; PULSE 75; RESP 18; TEMP 36.8; O2SAT 95
[2023-08-09] MEDS: OLANZapine 10 MG TABLET 20 MG PO ×2 (09:44→20:40)
[2023-08-09] MEDS: atenoloL 25 MG TABLET 75 MG PO (09:45)
--- NOTE | 2023-08-09 15:11 | HO.PSYCHPN ---
Subjective Subjective Date of Service: 08/09/23 Reason For Visit: Bipolar disorder with psychosis Subjective Notes: Conditional Voluntary Healthcare Proxy: No Guardianship: No Medical Problems Affecting Mental Status: No Interim History: Yes, I am ready for tomorrow. Pt reports feeling some improvement with ongoing sinus sx/congestion. Feels prepared to discharge. Alert,clear, oriented, smiling, still with anergia, yet reports she feels ready to go home and rest and be with her dog Cheyenne. Mood is euthymic. Pt agrees to sinus xrays and will begin azithromycin trial. T97. Care review/Med review with her father who will be in contact if there are issues of concern. Medication Compliance: Yes Side effects from medications: No Review of Systems Acute medical concerns: No sinus congestion, sx of sinus infection Medical Review of Systems: unchanged Review of Systems Constitutional: Reports fatigue, Reports lethargy and Reports malaise Respiratory: Reports other (sinus congestion) Endocrine: Reports fatigue Mental Status Exam Mental Status Exam Patient Appearance: Fatigued and Disheveled Patient Orientation: Person, Place, Time and Situation Level of Consciousness: Alert Patient Behavior: Appropriate, Talkative, Fatigued, Distractible and Good Eye Contact Mood Description: Flat Affect Description: Flat Patient Cognition Impaired: No Ability to Follow Directions: Good Speech Pattern: Spontaneous Speech Memory Description: Remote Impaired and Episodic Impaired Hallucinations: None Delusions: Not Present Thought Process: Distracted and Slowed Thinking Thought Content: positive for [place], positive for Circumstantial, positive for Tangential and positive for Suicidal Ideation (denies) Depressive Symptoms: Increased Fatigue, Thoughts of /Suicide (denies SI, plan or intent) and Loss of Energy Judgement: Fair Diagnostics Vital Signs (24Hr): Vital Signs - 24 hr 08/08/23 18:00 Temperature 97.0 F Pulse Rate 73 Respiratory Rate 17 Blood Pressure 139/83 Pulse Oximetry 98 BMI result Body Mass Index 63.1 Labs 08/08/23 07:50 08/08/23 07:50 Labs: Laboratory Results - last 48 hr 08/08/23 07:50 WBC 6.6 RBC 4.71 Hgb 13.2 Hct 40.7 MCV 86.4 MCH 28.0 MCHC 32.4 RDW 13.6 Plt Count 146 L MPV 10.0 Immature Gran % (Auto) 0.6 H Neut % (Auto) 49.2 Lymph % (Auto) 40.7 H [place] % (Auto) 7.1 Eos % (Auto) 1.8 Baso % (Auto) 0.6 Lymph # (Auto) 2.7 [place] # (Auto) 0.5 Eos # (Auto) 0.1 Baso # (Auto) 0.0 Abs Immat Gran (auto) 0.04 H Absolute Neuts (auto) 3.3 Absolute Nucleated RBC 0.000 Nucleated RBC % (auto) 0.0 Sodium 146 H Potassium 4.2 Chloride 104 Carbon Dioxide 31 H Anion Gap 15 BUN 13 Creatinine 0.70 Estim Creat Clear Calc 206.9 Estimated GFR > 60 Random Glucose 100 Estimat Average Glucose 134 Hemoglobin A1c % 6.3 H Calcium 9.5 Total Bilirubin 0.4 AST 12 ALT 11 Alkaline Phosphatase 60 Total Protein 7.4 Albumin 3.9 Valproic Acid 77.1 Imaging Radiology Impressions: ITS Impressions Ankle X-Ray 07/27/23 14:25 IMPRESSION: 1. A small avulsion fragment of indeterminate chronicity versus accessory ossification center is seen adjacent to the medial malleolus. Please correlate clinically. 2. There is generalized soft tissue swelling of the left ankle. 3. There are calcaneal spurs. Ankle X-Ray 07/29/23 14:28 IMPRESSION: No acute osseous abnormality. Achilles tendon calcification/enthesophytes. Soft tissue swelling about the ankle. Medications Medications Current Medications Acetaminophen (Acetaminophen 325 Mg Tablet) 650 mg PO Q6H PRN PRN Reason: Headache/Pain Mild Scale (1-3) Last Admin: 07/28/23 22:15 Dose: 650 mg Al Hydroxide/Mg Hydroxide (Magnesium Hydrox/Alum Hydrox 30 Ml Oral.Susp) 30 ml PO Q6H PRN PRN Reason: Heartburn/Nausea Atenolol (Atenolol 25 Mg Tablet) 75 mg PO DAILY INOCENCIO; Protocol Last Admin: 08/09/23 09:45 Dose: 75 mg Benzocaine (Throat Lozenge, Medicated Lozenge) 1 lozenge MUCOUS MEM Q2H PRN PRN Reason: Sore Throat Last Admin: 08/08/23 19:26 Dose: 1 lozenge Benztropine Mesylate (Benztropine Mesylate 0.5 Mg Tablet) 0.5 mg PO TID PRN PRN Reason: Extrapyramidal Effects Last Admin: 11/17/23 20:50 Dose: 0.5 mg Divalproex Sodium (Divalproex Sodium Sprinkles 125 Mg Cap.Spr) 2,000 mg PO BEDTIME INOCENCIO Last Admin: 08/08/23 19:23 Dose: 2,000 mg Guaifenesin (Guaifenesin La 600 Mg Tab.Er.12h) 600 mg PO BID PRN PRN Reason: Congestion Last Admin: 08/08/23 19:27 Dose: 600 mg Guaifenesin/Dextromethorphan (Guaifenesin Dm 200/20/10 Ml 10 Ml Syrup) 10 ml PO Q6H PRN PRN Reason: cough Last Admin: 08/08/23 19:27 Dose: 10 ml Hydroxyzine HCl (Hydroxyzine Hcl 25 Mg Tablet) 25 mg PO Q6H PRN PRN Reason: Anxiety Last Admin: 07/25/23 08:03 Dose: 25 mg Loperamide HCl (Loperamide Hcl 2 Mg Capsule) 2 mg PO Q4H PRN PRN Reason: Diarrhea Lurasidone HCl (Lurasidone Hcl 20 Mg Tablet) 20 mg PO BEDTIME INOCENCIO Last Admin: 08/08/23 19:26 Dose: 20 mg Lurasidone HCl (Lurasidone Hcl 40 Mg Tablet) 40 mg PO BEDTIME INOCENCIO Last Admin: 08/08/23 19:25 Dose: 40 mg Magnesium Hydroxide (Milk Of Magnesia 30 Ml Oral.Susp) 30 ml PO DAILY PRN PRN Reason: Constipation Nystatin (Nystatin Powder 15 Gm Bottle) 1 appl TOPICAL BID INOCENCIO; Protocol Last Admin: 08/09/23 09:45 Dose: Not Given Nystatin (Nystatin Cream 15 Gm Tube) 1 appl TOPICAL BID INOCENCIO; Protocol Last Admin: 08/09/23 09:45 Dose: Not Given Olanzapine (Olanzapine 10 Mg Tablet) 20 mg PO BID INOCENCIO Last Admin: 08/09/23 09:44 Dose: 20 mg Trazodone HCl (Trazodone Hcl 50 Mg Tablet) 50 mg PO BEDTIME MRX1 PRN PRN Reason: Insomnia Last Admin: 08/08/23 19:27 Dose: 50 mg Allergies Allergies Allergy/AdvReac Type Severity Reaction Status Date / Time kiwi [KIWI] Allergy Mild HIVES Verified 07/07/23 10:07 mold [MOLD EXTRACTS*] Allergy Mild HIVES Verified 07/07/23 10:07 Assessment & Plan Assessment & Plan (1) Schizoaffective disorder, bipolar type: Status: Acute Code(s): F25.0 - Schizoaffective disorder, bipolar type (2) COVID-19: Status: Acute Code(s): U07.1 - COVID-19 Plan 08/05/23- COVID 19- continue to monitor. Probable discharge 08/08. Continue to assess symptoms throughout this medical illness. 08/06/23- Continue current regime and tentative plan. 08/07/23- Labs for the a.m. A1C, Valproate Level, CBCD, CMP. Pt agrees to comply. Postpone discharge due to illness. 08/08/23- Continue current regime and plan of care. 08/09/23-Sinus films, results pending Azithromycin 500 mg today, 250 mg 08/10- Discharge 08/10 Patient educated on: medication risk/benefits, therapeutic strategies and medical condition Informed Consent: understands Reason for continued inpatient stay Substantial Risk for: med/psych decompensation Time Spent With Patient Time: Total time managing care of this patient today ____ minutes.
[2023-08-09] MEDS: Azithromycin 500 MG TABLET PO (17:18)
[2023-08-09 18:00] VITALS: BP 111/79; PULSE 74; RESP 16; TEMP 36.2; O2SAT 96
[2023-08-09] MEDS: Throat Lozenge, Medicated LOZENGE 1 LOZENGE MUCOUS MEM (20:17)
[2023-08-09] MEDS: Lurasidone HCl 40 MG TABLET PO (20:18)
[2023-08-09] MEDS: Divalproex Sodium Sprinkles 125 MG CAP.DR.SPR 2000 MG PO (20:19)
[2023-08-09] MEDS: Nystatin Powder 15 GM BOTTLE 1 APPL TOPICAL (20:27)
[2023-08-09] MEDS: guaiFENesin DM 200/20/10 ML 10 ML SYRUP PO (20:37)
[2023-08-09] MEDS: Lurasidone HCl 20 MG TABLET PO (21:30)
[2023-08-10 06:00] VITALS: BP 125/66; PULSE 80; RESP 18
[2023-08-10] MEDS: OLANZapine 10 MG TABLET 20 MG PO (08:27)
[2023-08-10] MEDS: atenoloL 25 MG TABLET 75 MG PO (08:27)
--- NOTE | 2023-08-10 17:16 | PM.PSYDC ---
DS: Providers Provider Date of Service: 08/10/23 Date of admission: 07/21/23 17:51 Date of discharge: 08/10/23 Primary care physician: Unknown Physician Admitting clinician: Rianna Santos Attending physician on admission: James Argueat Consults: 07/21/23 17:57 Consult to Hospitalist Routine Comment: Consulting Provider: Hospitalist Reason For Exam: hospital transfer 07/27/23 19:16 Consult to Orthopedics Routine Consulting Provider: [facility] Reason for consultation: L ankle avulsion Has provider been notified: No Attending physician on discharge: James Argueta Discharging clinician: Rianna Santos DS: Diagnosis Discharge Diagnosis (1) Schizoaffective disorder, bipolar type: Status: Acute (2) COVID-19: Status: Resolved DS: Medications Discharge Medications Home Medications: Previous Rx's Medication Instructions Recorded Align 1 tab PO DAILY ##0 06/11/23 albuterol sulfate 90 mcg/actuation 2 inh inhalation QID PRN shortness 08/09/23 aerosol inhaler (ProAir HFA) of breath or wheezing #1 inhaler atenolol 25 mg tablet 75 mg PO DAILY #90 tabs 08/09/23 atorvastatin 20 mg tablet 20 mg PO BEDTIME #90 tabs 08/09/23 azithromycin 250 mg tablet 250 mg PO Q24H #3 tabs 08/09/23 benzocaine 6 mg-menthol 10 mg 1 enid mucous membrane Q2H PRN Sore 08/09/23 lozenges (Chloraseptic Sore Throat) Throat #100 ea benztropine 0.5 mg tablet 0.5 mg PO TID PRN Extrapyramidal 08/09/23 Effects #90 tabs dextromethorphan-guaifenesin 10 10 ml PO Q6H PRN cough #200 mL 08/09/23 mg-100 mg/5 mL oral syrup divalproex 125 mg capsule,delayed 2,000 mg (16 x 125 mg) PO BEDTIME 08/09/23 release sprinkle (Depakote #224 caps Sprinkles) guaifenesin 600 mg tablet, 600 mg PO BID PRN Congestion #60 08/09/23 extended release 12 hr (Mucinex) tabs lurasidone 60 mg tablet (Latuda) 60 mg PO BEDTIME #30 tabs 08/09/23 nystatin 100,000 unit/gram topical 1 appl topical BID #100 applicators 08/09/23 cream nystatin 100,000 unit/gram topical 1 appl topical BID #100 grams 08/09/23 powder olanzapine 10 mg tablet 20 mg (2 x 10 mg) PO BID #60 tabs 08/09/23 trazodone 50 mg tablet 50 mg PO BEDTIME MRX1 PRN Insomnia 08/09/23 #60 tabs Mental Status Exam Mental Status Exam Patient Appearance: Fatigued and Disheveled Patient Orientation: Person, Place, Time and Situation Level of Consciousness: Alert Patient Behavior: Appropriate, Talkative, Fatigued, Distractible and Good Eye Contact Mood Description: Flat Affect Description: Flat Patient Cognition Impaired: No Ability to Follow Directions: Good Speech Pattern: Spontaneous Speech Memory Description: Remote Impaired and Episodic Impaired Hallucinations: None Delusions: Not Present Thought Process: Distracted and Slowed Thinking Thought Content: positive for [place], positive for Circumstantial, positive for Tangential and positive for Suicidal Ideation (denies) Depressive Symptoms: Increased Fatigue, Thoughts of /Suicide (denies SI, plan or intent) and Loss of Energy Judgement: Fair Data Data Completed and Pending Completed studies during hospitalization [Text1]: 08/08/23 07:50 WBC 6.6 RBC 4.71 Hgb 13.2 Hct 40.7 MCV 86.4 MCH 28.0 MCHC 32.4 RDW 13.6 Plt Count 146 L MPV 10.0 Immature Gran % (Auto) 0.6 H Neut % (Auto) 49.2 Lymph % (Auto) 40.7 H [place] % (Auto) 7.1 Eos % (Auto) 1.8 Baso % (Auto) 0.6 Lymph # (Auto) 2.7 [place] # (Auto) 0.5 Eos # (Auto) 0.1 Baso # (Auto) 0.0 Abs Immat Gran (auto) 0.04 H Absolute Neuts (auto) 3.3 Absolute Nucleated RBC 0.000 Nucleated RBC % (auto) 0.0 Sodium 146 H Potassium 4.2 Chloride 104 Carbon Dioxide 31 H Anion Gap 15 BUN 13 Creatinine 0.70 Estim Creat Clear Calc 206.9 Estimated GFR > 60 Random Glucose 100 Estimat Average Glucose 134 Hemoglobin A1c % 6.3 H Calcium 9.5 Total Bilirubin 0.4 AST 12 ALT 11 Alkaline Phosphatase 60 Total Protein 7.4 Albumin 3.9 Valproic Acid 77.1 Imaging Diagnostic Imaging Impressions Ankle X-Ray 07/27/23 14:25 IMPRESSION: 1. A small avulsion fragment of indeterminate chronicity versus accessory ossification center is seen adjacent to the medial malleolus. Please correlate clinically. 2. There is generalized soft tissue swelling of the left ankle. 3. There are calcaneal spurs. Ankle X-Ray 07/29/23 14:28 IMPRESSION: No acute osseous abnormality. Achilles tendon calcification/enthesophytes. Soft tissue swelling about the ankle. Sinuses X-Ray 08/09/23 13:33 IMPRESSION: Unremarkable examination. DS: Summary Hospital Course Hospital Course: Admission to adult psychiatry for exacerbation of acute brendon. Medications were evaluated and adjusted. Pt was able to gradually stabilize. Valproate/Olanzapine/Latuda were utilized to assist her. Family was very supportive. Father, pt's main support, is currently in physical rehab however was consistent and supportive to pt by phone and in constant contact with the team. Pt will return to the community and her providers at [facility] and primary care to continue ongoing management of symptoms. Status at Discharge Functional status at discharge: independent ambulation Overall status at discharge: patient is not back to baseline Time Spent with Patient Time attestation: Total time managing care of this patient today ____ minutes. Time spent: Greater than 30 minutes Discharge Plan Discharge Anticipated Discharge Date/Time: 08/10/23 12:36 Patient Disposition: Home, Self-Care Discharge Diagnosis: Schizoaffective Disorder, Bipolar Type COVID-currently resolving Referrals: Psych Prescriber: Valentin Briseno ([facility]) [Other] - 08/25/23 9:00 am (Appointment is in person at the office ) Therapist: Maribel Joshua ([facility]) [Other] - 08/19/23 1:45 pm (Appointment is in person at the office ) [facility]: Service Authorization [Other] - 1 Week (Press O to speak with salon receptionist and ask to be connected to service authorization to follow up on application) [facility] [Other] - 1 Week (Walk-In Clinic) Physician,Cas J [Primary Care Provider] - 1 Week Discharge Medications: Discontinued atorvastatin 20 mg tablet 20 mg PO BEDTIME Qty: 90 0RF divalproex 250 mg tablet,delayed release (DR/EC) 250 mg PO BID Qty: 60 0RF diphenhydramine HCl 50 mg tablet 50 mg PO BID PRN (Reason: Anxiety) Qty: 60 0RF Rx Instructions: Use as needed for anxiety divalproex 500 mg tablet,delayed release (DR/EC) 500 mg PO BID Qty: 60 0RF albuterol sulfate [ProAir HFA] 90 mcg/actuation HFA aerosol inhaler 2 inh inhalation QID PRN (Reason: shortness of breath or wheezing) Qty: 1 0RF Banophen capsule 50 mg PO BID PRN (Reason: Anxiety) Latuda tablet 80 mg PO DAILY Rx Instructions: Take with food trazodone tablet 100 mg PO BEDTIME atenolol 50 mg tablet 50 mg PO DAILY Qty: 90 0RF No Action acetaminophen 325 mg Tablet 650 mg PO Q6H PRN (Reason: Headache/Pain Mild Scale (1-3)) Qty: 0 0RF trazodone 50 mg Tablet 50 mg PO BEDTIME MRX1 PRN (Reason: Insomnia) Qty: 0 0RF lamotrigine 25 mg Tablet 25 mg PO BEDTIME Qty: 0 0RF magnesium hydroxide [Milk of Magnesia] 400 mg/5 mL Suspension 30 ml PO DAILY PRN (Reason: Constipation) Qty: 0 0RF nystatin 100,000 unit/gram Cream 1 appl topical BID Qty: 0 0RF Protocol: Apply to: Apply to: affected areas hydroxyzine HCl 25 mg Tablet 25 mg PO Q6H PRN (Reason: Anxiety) Qty: 0 0RF nystatin 100,000 unit/gram Powder 1 appl topical BID Qty: 0 0RF Protocol: Apply to: Apply to: angelic area and inner thighs lorazepam 1 mg Tablet 1 mg PO BEDTIME Qty: 0 0RF metformin 500 mg Tablet Extended Release 24 Hr 500 mg PO DAILY Qty: 0 0RF divalproex 125 mg Capsule, Delayed Rel Sprinkle 1,000 mg PO BID Qty: 0 0RF Dermacerin Cream 1 appl topical BID Qty: 0 0RF Protocol: Apply to: Apply to: b/l feet MAG-AL 200-200 mg/5 mL Suspension 30 ml PO Q6H PRN (Reason: Heartburn/Nausea) Qty: 0 0RF Calmol-4 76-10 % Suppository 1 supp [place] BID PRN (Reason: Hemorrhoids) Qty: 0 0RF Eliquis 5 mg Tablet 5 mg PO BID Qty: 180 0RF furosemide 40 mg Tablet 40 mg PO DAILY Qty: 90 0RF Protocol: Hold for SBP< HOLD for SBP < : 90 olanzapine 10 mg Tablet,Disintegrating 5 mg translingual BID Qty: 180 0RF prednisone 10 mg tablet 20 mg PO DAILY Qty: 15 0RF Rx Instructions: 20mg for 5 days, then 10mg daily for 5 days Invega Sustenna 156 mg/mL syringe 156 mg IM Q30D Qty: 1 0RF Rx Instructions: Injection is due on November 09, 2023. Discharge Orders: Discharge Order (Routine); Ordered 08/10/23 Ordered By: Rianna Santos Diet: Advance to usual diet Activity on Discharge: As tolerated Stand Alone Forms: Patient Portal Discharge page, Community Support Care Plan Goals: Mood and Behavioral Stabilization Recovery from COVID Health Concerns: Mood and Behavioral Stabilization Recovery from COVID Plan of Treatment: PODIATRY APPT WITH [facility], Dr. Tolu Drake [address] [place] [address] [phone] Wednesday, August 23, 2023 at 8:45am. Attend scheduled appointments Take medications as directed Assessment: Pt interviewed prior to discharge and found to be fully oriented and without SI/HI. Pt has insight and demonstrates good judgment in terms of wanting to pursue treatment. Pt is not in imminent risk of harm to self or others and has a safety plan that includes presenting to the closest ER or calling 911 if feeling unsafe. Pt has been observed closely by nursing and unit staff throughout admission. Pt has not engaged in any behaviors that suggest dangerousness to self or others and has demonstrated appropriate behaviors and impulse control. Pt is recovering from COIVD-19 and continues to experience congestion, however reports feeling much improved and ready to return to her home, family and her dog. Discharge Date/Time: 08/10/23 11:23
== END 2023-08-10 11:23 | disposition home or self-care (01) | DRG 750 ==
PROVIDERS: Admitting Provider Psychiatry & Neurology Psychiatry; Visit Provider Clinical Nurse Specialist Psychiatric/Mental Health, Adult
DX: F25.0 Schizoaffective disorder, bipolar type (principal); U07.1 COVID-19; Z68.44 Body mass index [BMI] 60.0-69.9, adult; E11.9 Type 2 diabetes mellitus without complications; E66.01 Morbid (severe) obesity due to excess calories; I10 Essential (primary) hypertension; D68.51 Activated protein C resistance; E78.5 Hyperlipidemia, unspecified; Z79.899 Other long term (current) drug therapy
CPT/HCPCS: 36415; 70220; 73610; 80053; 80164; 83036; 85025; 87635; 93005; J2359

== ENCOUNTER → 2023-07-21 17:51 | Outpatient (BNV) | payer OTHER, SELFPAY | PROVIDERS: Admitting Provider Psychiatry & Neurology Psychiatry; Visit Provider Student in an Organized Health Care Education/Training Program | DX: Z02.2 Encounter for examination for admission to residential institution (principal) | CPT/HCPCS: 99429 ==

== ENCOUNTER → 2023-07-21 17:51 | Outpatient (BNV) | payer OTHER, SELFPAY | PROVIDERS: Admitting Provider Psychiatry & Neurology Psychiatry; Visit Provider Clinical Nurse Specialist Psychiatric/Mental Health, Adult | DX: F25.0 Schizoaffective disorder, bipolar type (principal); U07.1 COVID-19 | CPT/HCPCS: 90792; 99231; 99232; 99499 ==

== ENCOUNTER → 2023-07-21 17:51 | Outpatient (BNV) | payer OTHER, SELFPAY | PROVIDERS: Admitting Provider Psychiatry & Neurology Psychiatry; Visit Provider Physician Assistant | DX: Z87.828 Personal history of other (healed) physical injury and trauma (principal) | CPT/HCPCS: 99221; 99499 ==

== ENCOUNTER 2023-09-06 09:03 | Inpatient (IN) | payer OTHER, SELFPAY ==
--- NOTE | ~2023-09-06 | XR_ITS ---
EXAMINATION: XR CHEST CLINICAL INFORMATION: Shortness of breath and fever. COMPARISON: 10/12/2020 TECHNIQUE: Frontal view of the chest was obtained. FINDINGS: The lungs are well expanded. No focal consolidation. No pleural effusion. Cardiac silhouette is unchanged. XR/XR chest 1V IMPRESSION: No acute abnormality.
--- NOTE | ~2023-09-06 | US_ITS ---
EXAMINATION: US VENOUS ULTRASOUND WITH DOPPLER LOWER EXTREMITY, BILATERAL CLINICAL INFORMATION: Increased left lower extremity pain. COMPARISON: None available. TECHNIQUE: Ultrasound of the deep veins is performed from the hip to the calf with compression sonography and color and pulse Doppler assessment. Spectral analysis with color-flow imaging is performed. FINDINGS: RIGHT: There is normal venous compression and respiratory variation and augmented flow. The visualized common femoral vein, superficial femoral vein, profunda femoral vein, popliteal vein, shows no evidence of deep venous thrombosis. The calf veins are not visualized There is no significant popliteal fossa cyst. LEFT: There is normal venous compression and respiratory variation and augmented flow. The visualized common femoral vein, superficial femoral vein, profunda femoral vein, popliteal vein, shows no evidence of deep venous thrombosis. The calf veins are not visualized There is no significant popliteal fossa cyst. If the patient's symptoms persist, followup ultrasound in 5 days 7 days might be of value to exclude proximal propagation from a non-visualized calf vein. US/US venous duplex LE BI IMPRESSION: No DVT demonstrated in the bilateral lower extremity. Bilateral lower leg calf veins are not visualized.
--- NOTE | ~2023-09-06 | XR_ITS ---
EXAMINATION: XR ABDOMEN COMPLETE CLINICAL INDICATION: Reason for Exam ?constipation COMPARISON: CT abdomen pelvis 11/12/2020 TECHNIQUE: AP view of the abdomen. FINDINGS: Lines or devices: None. Nonobstructive bowel gas pattern. Moderate colonic stool burden. Supine technique limits evaluation for extraluminal air although no secondary findings are appreciated. No abnormal calcifications. XR/XR KUB IMPRESSION: * Nonobstructive bowel gas pattern with a moderate colonic stool burden.
--- NOTE | ~2023-09-06 | US_ITS ---
EXAMINATION: US PELVIS CLINICAL INFORMATION: Pain LMP: Irregular COMPARISON: CT scan abdomen and pelvis 11/12/2020 TECHNIQUE: Ultrasound of the pelvis is performed using transabdominal transducer along with Doppler. The patient was unable to tolerate transvaginal imaging. Extremity limited study due to patient body habitus and inability to tolerate transvaginal scanning. FINDINGS: This is a limited study due to patient body habitus and inability to tolerate transvaginal imaging. The bladder is only partially full limiting transabdominal scanning. Uterus: The uterus is anteverted and measures 7.4 x 3.6 x 4.6 cm. The endometrial thickness is questionably 0.4 cm Adnexa: The right ovary is not seen. The left ovary is not seen with certainty, possibly measures 3.7 x 2.4 x 2.6 cm. US/US pelvic and transvaginal IMPRESSION: 1. Limited study due to patient body habitus and inability to tolerate transvaginal imaging. 2. The uterus is normal in size. The endometrial thickness is questionably 0.4 cm. 3. The right ovary is not seen. 4. The left ovary is not seen with certainty.
[2023-09-06 09:17] VITALS: BP 150/90; PULSE 80; O2SAT 99
--- NOTE | 2023-09-06 09:25 | ED.PSYCH ---
HPI - Psych General Chief Complaint: Psychiatric Symptoms Stated Complaint: SEC12,MED NONCOMP,PARAMOIA,AUD JAIRO,NO ALEEP X4 DAY Time Seen by Provider: 09/06/23 09:12 Source: patient, EMS, RN notes reviewed and old records reviewed Mode of arrival: EMS History of Present Illness HPI Narrative: 33-year-old female with a past medical history of schizoaffective disorder, HTN, diabetes, asthma, factor 5 Leiden, presenting to the ED via EMS on Section [address] [facility] for decompensation with increasing paranoia, insomnia, and hallucinations. Per EMS patient is noncompliant with her medications, patient herself reports compliance. Patient denies ETOH or illicit drug use. Denies SI/HI. Related Data Previous Rx's Medication Instructions Recorded Align 1 tab PO DAILY ##0 06/11/23 albuterol sulfate 90 mcg/actuation 2 inh inhalation QID PRN shortness 08/09/23 aerosol inhaler (ProAir HFA) of breath or wheezing #1 inhaler atenolol 25 mg tablet 75 mg PO DAILY #90 tabs 08/09/23 atorvastatin 20 mg tablet 20 mg PO BEDTIME #90 tabs 08/09/23 azithromycin 250 mg tablet 250 mg PO Q24H #3 tabs 08/09/23 benzocaine 6 mg-menthol 10 mg 1 enid mucous membrane Q2H PRN Sore 08/09/23 lozenges (Chloraseptic Sore Throat) Throat #100 ea benztropine 0.5 mg tablet 0.5 mg PO TID PRN Extrapyramidal 08/09/23 Effects #90 tabs dextromethorphan-guaifenesin 10 10 ml PO Q6H PRN cough #200 mL 08/09/23 mg-100 mg/5 mL oral syrup divalproex 125 mg capsule,delayed 2,000 mg (16 x 125 mg) PO BEDTIME 08/09/23 release sprinkle (Depakote #224 caps Sprinkles) guaifenesin 600 mg tablet, 600 mg PO BID PRN Congestion #60 08/09/23 extended release 12 hr (Mucinex) tabs lurasidone 60 mg tablet (Latuda) 60 mg PO BEDTIME #30 tabs 08/09/23 nystatin 100,000 unit/gram topical 1 appl topical BID #100 applicators 08/09/23 cream nystatin 100,000 unit/gram topical 1 appl topical BID #100 grams 08/09/23 powder olanzapine 10 mg tablet 20 mg (2 x 10 mg) PO BID #60 tabs 08/09/23 trazodone 50 mg tablet 50 mg PO BEDTIME MRX1 PRN Insomnia 08/09/23 #60 tabs divalproex 500 mg tablet,extended 1,500 mg (3 x 500 mg) PO BEDTIME 08/23/23 release 24 hr (Depakote ER) #90 tabs lurasidone 60 mg tablet (Latuda) 60 mg PO DAILY #30 tabs 09/01/23 Allergies Allergy/AdvReac Type Severity Reaction Status Date / Time kiwi [KIWI] Allergy Mild HIVES Verified 07/07/23 10:07 mold [MOLD EXTRACTS*] Allergy Mild HIVES Verified 07/07/23 10:07 Review of Systems Review of Systems: Constitutional: No Fever, No Chills Cardiovascular: No Chest Pain, No SOB Respiratory: No Cough, No Dyspnea Gastrointestinal: No Nausea, No Vomiting, No Abdominal pain Genitourinary: No Dysuria,No Hematuria, No Flank Pain Musculoskeletal: No joint pain, No Myalgias Neuro: No Weakness Psych: +Anxiety/Panic, No Depression, No SI/HI, +AH/VH, No Social Issues Yes all other systems are reviewed and are negative Constitutional: Constitutional: Reports as per [facility] Past Medical History Attestation statement: The following information was validated with the patient. Source: old records reviewed Onset Date is defined in the Problem List Problems that require an onset date and time if occurred within 24 hrs of arrival to the ED Aortic Dissection and Rupture; Neurologic impairment; Cardiopulmonary Arrest; Endotracheal Intubation; Insertion or Replacement of Mechanical Circulatory Assist Device Medical History Schizoaffective disorder, bipolar type Hypertension, essential Uncontrolled type 2 diabetes mellitus with hyperglycemia Leg edema Obesity, morbid Asthma Factor 5 Leiden mutation, heterozygous Seasonal asthma Surgical History History of ovarian cyst History of wisdom tooth extraction Family History Family History Father HTN (hypertension) Diabetes mellitus Mother Afib Maternal Grandfather No problems noted. Maternal Grandmother No problems noted. Paternal Grandmother Breast cancer Paternal Grandfather No problems noted. Sister No problems noted. Social History Social History Household Members: Other Household Members Other:: father Housing: House Do you presently have visiting nurse or other home services: No Unable to assess alcohol history related to: Unknown Alcohol intake: never Comment: Independent Patient Tobacco Use Status: Former Tobacco user Tobacco use type: Cigarette Years Smoked: 3 yrs e-Cigarette/Vaping Use: Never Used Advance Directives: Yes Advance Directives Information Provided: Yes Advance Directives on File: No service: No Current occupational status: employed Sexual orientation: Straight/Heterosexual Cognitive needs: No Hearing needs: No Vision needs: Yes Physical Exam Vital Signs: Vital Signs: Last Vital Signs Temp 97.9 F 09/06/23 09:35 Pulse 77 09/06/23 09:35 Resp 18 09/06/23 09:35 BP 151/77 H 09/06/23 09:35 Pulse Ox 97 09/06/23 09:35 O2 Del Method Room Air 09/06/23 09:35 BMI result Body Mass Index 66.7 Const: General: cooperative and no acute distress HEENT: Head: Yes normal to inspection and Yes atraumatic Ears: hearing grossly normal bilaterally General nose exam: Normal external nose present Face and sinus: Yes normal facial exam Eyes: General: appearance normal, both eyes and all related structures EOM: EOMs intact bilaterally Neck: Neck: Yes normal visual inspection and Yes no meningeal signs Resp: Effort & Inspection: normal respiratory effort and no respiratory distress Auscultation: clear to auscultation bilaterally Cardio: Rate: regular rate Heart sounds: S1 normal heart sound present and S2 normal heart sound present GI: Inspection: Yes normal to inspection Palpation (GI): Soft to palpation, nontender, no guarding and not rigid Skin: Rashes: no rashes Wounds: no wounds Neuro: General: tone normal, moves all extremities, no meningeal signs and CN's II-XI intact bilaterally Cranial nerves: Yes CN's II-XII intact bilaterally Gait exam (Neuro): Normal gait present Extrem: General: Yes normal to inspection Psych: Affect: Indifferent affect present Attitude: cooperative Thought content: suicidality, no homicidality, Paranoid delusions present, Hallucination(s) present and Compulsions present (thought content) Insight: Poor insight present (Psych) Course Course Course Narrative: -1134--no leukocytosis. Labs otherwise reassuring. Viral studies and tox screen pending -physician observation initiated at 11:34 is patient needs more time to be evaluated by CARE team. -1630- ED care transferred to PHANI Larsen pending CARE eval. patient is section 12 Medications Administered Discontinued Medications Generic Name Dose Route Start Last Admin Trade Name Reg PRN Reason Stop Dose Admin Divalproex Sodium 1,500 mg 09/06/23 13:30 09/06/23 14:08 Divalproex Sodium 500 Mg Tablet. PO 09/06/23 13:31 1,500 mg ONCE ONE Administration Haloperidol 10 mg 09/06/23 13:33 09/06/23 14:08 Haloperidol 5 Mg Tablet PO 09/06/23 13:34 10 mg ONCE ONE Administration Lorazepam 2 mg 09/06/23 13:33 09/06/23 14:08 Lorazepam 1 Mg Tablet PO 09/06/23 13:34 2 mg ONCE ONE Administration Medical Decision Making Medical Decision Making MDM Narrative: 33-year-old female with a past medical history of schizoaffective disorder, HTN, diabetes, asthma, factor 5 Leiden, presenting to the ED via EMS on Section [address] [facility] for decompensation with increasing paranoia, insomnia, and hallucinations. On exam vital signs stable, NAD, nontoxic appearing, paranoid/delusions with active hallucinations. Denies SI/HI. Concern for medication noncompliance and schizoaffective disorder/psychosis. Rule out organic causes of infectious etiology Plan: Labs, UA, tox screen, care team consult Please refer to course for remaining clinical decision making, interpretation of labs/imaging results, and discussions with consultants and/or family members. Differential Diagnosis Differential Diagnoses: The differential diagnosis associated with the presentation includes As above Admission/Observation Consideration of admission/observation: Escalation of care including admission/observation considered Consult Healthcare Provider Management of the patient was discussed with: Behavioral Health Provider Lab Data MDM Lab Attestation statement: I reviewed the patient's lab results. 09/06/23 10:23 09/06/23 10:23 Labs: Lab Results 09/06/23 09/06/23 Range/Units 10:23 13:45 WBC 10.6 (4.8-10.8) X10*3/uL RBC 4.48 (4.20-5.50) X10*6/uL Hgb 12.5 (12.0-16.0) g/dl Hct 37.9 (37.0-47.0) % MCV 84.6 (80.0-98.0) fL MCH 27.9 (27.0-33.0) pg MCHC 33.0 (31.0-35.0) g/dl RDW 13.9 (11.0-16.0) % Plt Count 155 L (160-400) X10*3/uL MPV 9.7 (9.4-12.3) fL Immature Gran % (Auto) 0.5 H (0.0-0.4) % Neut % (Auto) 61.6 (45-73) % Lymph % (Auto) 28.1 (20-40) % [place] % (Auto) 8.2 (2-11) % Eos % (Auto) 1.1 (0-4) % Baso % (Auto) 0.5 (0-2) % Lymph # (Auto) 3.0 (1.2-4.9) X10*3/uL [place] # (Auto) 0.9 (0.1-1.2) X10*3/uL Eos # (Auto) 0.1 (0.0-0.4) X10*3/uL Baso # (Auto) 0.1 (0.0-0.2) X10*3/uL Abs Immat Gran (auto) 0.05 H (0.00-0.03) X10*3/uL Absolute Neuts (auto) 6.5 (2.0-8.3) x10*3/uL Absolute Nucleated RBC 0.000 (0.0-0.012) X10*3/uL Nucleated RBC % (auto) 0.0 (0.0-0.2) /100WBC Sodium 146 H (135-145) mmol/L Potassium 4.0 (3.3-5.1) mmol/L Chloride 107 (96-108) mmol/L Carbon Dioxide 28 (22-29) mmol/L Anion Gap 15 (12-20) BUN 16 (9-16) mg/dL Creatinine 0.65 (0.5-1.4) mg/dL Estim Creat Clear Calc 216.8 Estimated GFR > 60 Random Glucose 107 (60-115) mg/dL Calcium 9.6 (8.4-10.2) mg/dL Magnesium 2.1 (1.6-2.6) mg/dL Total Bilirubin 0.9 (0.0-1.0) mg/dL Direct Bilirubin 0.3 (0.0-0.5) mg/dL AST 12 (5-31) U/L ALT 10 (0-31) U/L Alkaline Phosphatase 65 (39-117) U/L Total Protein 7.8 (6.5-8.0) g/dL Albumin 4.3 (3.5-5.0) g/dL Salicylates < 5.0 L (15-30) mg/dL Acetaminophen < 5 (<30) mcg/mL Valproic Acid 60.5 (50.0-100.0) mcg/mL Independent Interpretation I performed an independent interpretation of an: EKG (My interpretation EKG accelerated junctional rhythm rate of 89. Nonspecific T-wave abnormality in inferior and anterior leads. No STEMI. QRS 88) Radiology Impression Discussion of test interpretation with radiology: I have reviewed the radiologist's reading. Independent Historian Clinical information obtained from an independent historian. History obtained from or confirmed by: EMS External Record Review External record reviewed: Inpatient record, Office record, Outpatient record, Prior outpatient labs, Prior outpatient radiology, Primary care record and Outside ED record Tests considered The following testing was considered but not selected: As above Chronic Conditions Patient?s care impacted by: Other Social Determinants Patient?s care significantly limited by Social Determinants of Health including: Low income, Problems related to primary support group and Other Social Determinant of Health Discharge Plan Discharge Clinical Impression: Psychosis Patient Disposition: Still a Patient Prescriptions: No Action Align 1 tab PO DAILY Qty: 0 0RF benztropine 0.5 mg Tablet 0.5 mg PO TID PRN (Reason: Extrapyramidal Effects) Qty: 90 0RF trazodone 50 mg Tablet 50 mg PO BEDTIME MRX1 PRN (Reason: Insomnia) Qty: 60 0RF azithromycin 250 mg Tablet 250 mg PO Q24H Qty: 3 0RF atenolol 25 mg Tablet 75 mg PO DAILY Qty: 90 0RF Protocol: Hold for SBP/HR < HOLD for SBP < : 90 HOLD for HR < : 60 olanzapine 10 mg Tablet 20 mg PO BID Qty: 60 0RF Chloraseptic Sore Throat 6-10 mg Lozenge 1 enid mucous membrane Q2H PRN (Reason: Sore Throat) Qty: 100 0RF dextromethorphan-guaifenesin 10-100 mg/5 mL Syrup 10 ml PO Q6H PRN (Reason: cough) Qty: 200 0RF nystatin 100,000 unit/gram Cream 1 appl topical BID Qty: 100 0RF Protocol: Apply to: Apply to: affected areas nystatin 100,000 unit/gram Powder 1 appl topical BID Qty: 100 0RF Protocol: Apply to: Apply to: affected areas guaifenesin [Mucinex] 600 mg Tablet Extended Release 12hr 600 mg PO BID PRN (Reason: Congestion) Qty: 60 0RF divalproex [Depakote Sprinkles] 125 mg capsule, delayed rel sprinkle 2,000 mg PO BEDTIME Qty: 224 0RF lurasidone [Latuda] 60 mg tablet 60 mg PO BEDTIME Qty: 30 0RF Rx Instructions: must administer with food (at least 350 calories) atorvastatin 20 mg tablet 20 mg PO BEDTIME Qty: 90 0RF albuterol sulfate [ProAir HFA] 90 mcg/actuation HFA aerosol inhaler 2 inh inhalation QID PRN (Reason: shortness of breath or wheezing) Qty: 1 0RF divalproex [Depakote ER] 500 mg tablet extended release 24 hr 1,500 mg PO BEDTIME Qty: 90 0RF lurasidone [Latuda] 60 mg tablet 60 mg PO DAILY Qty: 30 0RF Rx Instructions: must administer with food (at least 350 calories) Interventions: [place]-Suicide Risk Severity Scale Last Done: 09/06/23 13:42
--- NOTE | 2023-09-06 09:27 | MHC.CARE ---
Pt was assessed by [facility] and is a IPLOC bedsearch secondary to disorganization/ no sleep x4 days.
[2023-09-06 09:28] VITALS: BP 151/77; PULSE 77; RESP 18; TEMP 36.6; O2SAT 97
--- NOTE | 2023-09-06 09:31 | ECG_ITS ---
Test Reason : AMS Blood Pressure : / mmHG Vent. Rate : 089 BPM Atrial Rate : 000 BPM P-R Int : 000 ms QRS Dur : 088 ms QT Int : 398 ms P-R-T Axes : 000 039 007 degrees QTc Int : 484 ms Normal sinus rhythm Poor data quality When compared with ECG of 03-AUG-2023 09:11, Poor data quality in current ECG precludes serial comparison Referred By: Elba Clemente Electronically Signed By:Car Quintanilla
[2023-09-06 09:35] VITALS: BP 151/77; PULSE 77; RESP 18; TEMP 36.6; O2SAT 97; BMI 66.7
[2023-09-06 10:31] LABS: MANUAL DIFF FLAG NO
[2023-09-06 10:32] LABS: Basophils Absolute Auto 0.1 X10*3/uL (0.0-0.2); Basophils Percent Auto 0.5 % (0-2); Eosinophils Absolute Auto 0.1 X10*3/uL (0.0-0.4); Eosinophils Percent Auto 1.1 % (0-4); Hematocrit 37.9 % (37.0-47.0); Hemoglobin 12.5 g/dl (12.0-16.0); Imm Gran Abs Auto 0.05 X10*3/uL (0.00-0.03); Imm Gran Pct Auto 0.5 % (0.0-0.4); Lymphocytes Percent Auto 28.1 % (20-40); Mean Corpuscular Hemoglobin 27.9 pg (27.0-33.0); Mean Corpuscular Volume 84.6 fL (80.0-98.0); Mean Platelet Volume 9.7 fL (9.4-12.3); Monocytes Absolute Auto 0.9 X10*3/uL (0.1-1.2); Monocytes Percent Auto 8.2 % (2-11); Neutrophils Absolute Auto 6.5 x10*3/uL (2.0-8.3); Neutrophils Percent Auto 61.6 % (45-73); Platelet Count 155 X10*3/uL (160-400); Red Blood Count 4.48 X10*6/uL (4.20-5.50); Red Cell Distribution Width 13.9 % (11.0-16.0); White Blood Count 10.6 X10*3/uL (4.8-10.8)
[2023-09-06 10:50] LABS: Alanine Aminotransferase 10 U/L (0-31); Albumin Level 4.3 g/dL (3.5-5.0); Alkaline Phosphatase 65 U/L (39-117); Anion Gap 15 (12-20); Aspartate Amino Transferase 12 U/L (5-31); Bilirubin Direct 0.3 mg/dL (0.0-0.5); Bilirubin Total 0.9 mg/dL (0.0-1.0); Blood Urea Nitrogen 16 mg/dL (9-16); Calcium 9.6 mg/dL (8.4-10.2); Carbon Dioxide 28 mmol/L (22-29); Chloride 107 mmol/L (96-108); Creatinine Clr Calc Pharmacy 216.8; Estimated Glomerular Filt Rate > 60; Glucose Random 107 mg/dL (60-115); Magnesium 2.1 mg/dL (1.6-2.6); Sodium 146 mmol/L (135-145); Total Protein 7.8 g/dL (6.5-8.0)
[2023-09-06 10:51] LABS: Salicylate < 5.0 mg/dL (15-30)
--- NOTE | 2023-09-06 12:15 | PC.NURSE ---
Pt brought into [facility], security at bedside to change patient over, pt stating she needs a sandwich and a cocktail, and needs to call the officer to the hospital along with multiple other statements that are very scattered. Pt given a sandwich at this time, awaiting care team evjeff
--- NOTE | 2023-09-06 13:36 | P.CNPS_ITS ---
History of Present Illness Date of Service: 09/06/2023 Chief Complaint: SEC12,MED NONCOMP,PARAMOIA,AUD JAIRO,NO ALEEP X4 DAY Reason for Consult: labile Sources of Information: patient interviewed, chart reviewed and crisis/core team assessment reviewed HPI Narrative: Ms. Cantu is a 33 year-old woman with hx of bipolar versus schizoaffective disorder bipolar type who was assessed by [facility] crisis in the community after her father called crisis reporting pt increasingly more agitated, not sleeping, nor taking medications. She also presented with delusions of being a medium, along with paranoid delusions. Pt seen in the ED. She presents as labile, hypersexual. She asks to make several phone calls to different people. She spoke with her father at one time and was observed yelling and swearing at him. She asks this ghost writer to let her go. Interview is limited due to flight of ideas and labile mood. She first demands to get a sandwich, later asks for the phone to continue making phone calls, now, bitch! Past Psychiatric History: Inpatient: [facility] 06/27; [facility] 01/2023 OP: [facility] [phone] Suicide attempts: none Medication trials: haldol, depakote, olanzapine, latuda [facility] Medical History Schizoaffective disorder, bipolar type Hypertension, essential Uncontrolled type 2 diabetes mellitus with hyperglycemia Leg edema Obesity, morbid Asthma Factor 5 Leiden mutation, heterozygous Seasonal asthma Surgical History History of ovarian cyst History of wisdom tooth extraction Family History: maternal family of psychosis, ECT treatments Social History: Pt grew up with both parents until they . She currently lives with her father. Not , no children. 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 Trauma History: not disclosed Diagnostics Vital Signs (24Hr): Vital Signs - 24 hr 09/06/23 09:28 09/06/23 09:35 Temperature 97.9 F 97.9 F Pulse Rate 77 77 Respiratory Rate 18 18 Blood Pressure 151/77 H 151/77 H Pulse Oximetry 97 97 Oxygen Delivery Method Room Air Room Air BMI result Body Mass Index 66.7 Labs 09/06/23 10:23 09/06/23 10:23 Labs: Laboratory Results - last 48 hr 09/06/23 10:23 WBC 10.6 RBC 4.48 Hgb 12.5 Hct 37.9 MCV 84.6 MCH 27.9 MCHC 33.0 RDW 13.9 Plt Count 155 L MPV 9.7 Immature Gran % (Auto) 0.5 H Neut % (Auto) 61.6 Lymph % (Auto) 28.1 [place] % (Auto) 8.2 Eos % (Auto) 1.1 Baso % (Auto) 0.5 Lymph # (Auto) 3.0 [place] # (Auto) 0.9 Eos # (Auto) 0.1 Baso # (Auto) 0.1 Abs Immat Gran (auto) 0.05 H Absolute Neuts (auto) 6.5 Absolute Nucleated RBC 0.000 Nucleated RBC % (auto) 0.0 Sodium 146 H Potassium 4.0 Chloride 107 Carbon Dioxide 28 Anion Gap 15 BUN 16 Creatinine 0.65 Estim Creat Clear Calc 216.8 Estimated GFR > 60 Random Glucose 107 Calcium 9.6 Magnesium 2.1 Total Bilirubin 0.9 Direct Bilirubin 0.3 AST 12 ALT 10 Alkaline Phosphatase 65 Total Protein 7.8 Albumin 4.3 Salicylates < 5.0 L Mental Status Exam Mental Status Exam Narrative: MO labile, guarded and irritable. Yelling at times. Flight of ideas. Pt presents with labile affect. Sexual content of delusions along with some paranoia. Intrusive with others in the ED as well as trying to disrobe. Medications Allergies Allergies Allergy/AdvReac Type Severity Reaction Status Date / Time kiwi [KIWI] Allergy Mild HIVES Verified 07/07/23 10:07 mold [MOLD EXTRACTS*] Allergy Mild HIVES Verified 07/07/23 10:07 Assessment & Plan Assessment & Plan (1) Bipolar disorder with psychotic features: Status: Acute Code(s): F31.9 - Bipolar disorder, unspecified Plan Ms. Cantu is a 33 year-old woman with hx of bipolar versus schizoaffective disorder bipolar type. She was assess in the community by [facility] after father called due to pt not sleeping, presenting as agitated and reporting delusions of being a medium. Pt recently d/j carlos from [facility]. PLAN 1. Inpt level of care for safety containment and stabilization. 2. check depakote level 3. will give loading dose of depakote DR 1500mg po now, then tomorrow can split dose to depakote 750mg po BID. 4. will given haldol 10mg po and ativan 2mg po due to agitation. Total time managing care of this patient today ____ minutes.
[2023-09-06 14:08] LABS: Valproate 60.5 mcg/mL (50.0-100.0)
[2023-09-06] MEDS: Divalproex Sodium 500 MG TABLET.DR 1500 MG PO (14:08)
[2023-09-06] MEDS: LORazepam 1 MG TABLET 2 MG PO (14:08)
[2023-09-06] MEDS: HaloperidoL 5 MG TABLET 10 MG PO ×2 (14:08→22:08)
--- NOTE | 2023-09-06 14:23 | PC.NURSE ---
Pt continuing to escalate with other patients, pt was able to take medications ordered, pt mom called, mom is not in chart, situation explained mom given fax number to fax updated HCP that she has.
[2023-09-06 15:28] LABS: Acetaminophen LAB < 5 mcg/mL (<30)
--- NOTE | 2023-09-06 15:53 | PC.NURSE ---
Pt father called and talked with this sign writer hand, he reports pt has not taken her meds since last , he attempted to get her to take them last night but she refused. Reporting she called a friend she has from [facility] to report she has not been taking her meds. Dad is in agreement with plan at this time.
[2023-09-06 16:29] VITALS: BP 150/91; PULSE 87; RESP 20; TEMP 36.8; O2SAT 97
[2023-09-06 16:49] LABS: COVID-19 Test Negative (Negative); IDNOW Serial# 08D9AD1C
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
[2023-09-07 08:23] VITALS: BP 170/85; PULSE 89; RESP 18; TEMP 36.2; O2SAT 95
[2023-09-07] MEDS: Divalproex Sodium 250 MG TABLET.DR 750 MG PO ×2 (08:25→21:56)
[2023-09-07] MEDS: HaloperidoL 5 MG TABLET 10 MG PO ×2 (08:25→21:55)
[2023-09-07] MEDS: Acetaminophen 325 MG TABLET 650 MG PO (16:09)
[2023-09-07] MEDS: OLANZapine ODT 10 MG TAB.RAPDIS TRANSLINGU (16:10)
[2023-09-07] MEDS: LORazepam 1 MG TABLET PO (16:10)
--- NOTE | 2023-09-07 18:00 | P.HPPS_ITS ---
HPI Date of Service: 09/07/23 Chief Complaint: brendon,psychosis Sources of Information: patient interviewed, chart reviewed and crisis/core team assessment reviewed Additional Sources of Information: Pt's father, Matteo [employer] Subjective Notes: Montiel Warning and Conditional Voluntary Healthcare Proxy: No Guardianship: No Medical Problems Affecting Mental Status: No Narrative: 33 yo female, history of bipolar disorder with psychosis, presents via crisis team who evaluated her at home for increasing brendon. Pt stopped Depakote 09/02 in preparation for a visit with her mother. She is a [place] [facility] [place] [facility] pt, having seen Valentin Briseno APRN x 2 for psychopharmacology. Several psychosocial stressors-pt's father, whom she lives with has just completed a long medical hospitalization and SNF rehab admission. He arrived home on 08/27. Pt has been at home-her mother has been helping her from her home in [place]. Pt's mother does not agree with medication and pt does feel pressure to not take medicine with mother. 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 Pt has just been approved for disability by Dr. Neda Valverde [phone] on 09/06/23. Pt stopped Depakote reportedly on 09/02. She began to experience sx per sister's report on 09/03 and was acutely manic by 09/05. Today, on the unit she is presenting with acute brendon, disinhibition, sexual preoccupation and inability to modulate her affect. Meds have been restarted. Olanzapine was offered with a.m. meds this morning and pt has had mild relief. By history, Valproate level of ~77 at 2000 mg daily with 40 mg Olanzapine has been effective in mgt of brendon. Pt's father would like a trial of THOMAS during this admission. Past Psychiatric History: Inpatient: Most recent [facility] 07/28; [facility] 01/2023 OP: [facility] Valentin Briseno HYDROGENATION OPERATOR-meds, Tracey-therapy Suicide attempts: none Medication trials: haldol, depakote, olanzapine, latuda Medical Evaluation Reviewed: Yes [facility] Medical History Schizoaffective disorder, bipolar type Hypertension, essential Uncontrolled type 2 diabetes mellitus with hyperglycemia Leg edema Obesity, morbid Asthma Factor 5 Leiden mutation, heterozygous Seasonal asthma Surgical History History of ovarian cyst History of wisdom tooth extraction Family History: maternal family of psychosis, ECT treatments Social History: Pt grew up with both parents until they . She currently lives with her father. Not , no children. 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 Substance History: denies Trauma History: affirms Diagnostics Vital Signs (24Hr): Vital Signs - 24 hr 09/07/23 08:23 Temperature 97.2 F Pulse Rate 89 Respiratory Rate 18 Blood Pressure 170/85 H Pulse Oximetry 95 Oxygen Delivery Method Room Air BMI result Body Mass Index 66.7 Labs 09/06/23 10:23 09/06/23 10:23 Labs: Laboratory Results - last 48 hr 09/06/23 09/06/23 09/06/23 10:23 13:45 16:15 WBC 10.6 RBC 4.48 Hgb 12.5 Hct 37.9 MCV 84.6 MCH 27.9 MCHC 33.0 RDW 13.9 Plt Count 155 L MPV 9.7 Immature Gran % (Auto) 0.5 H Neut % (Auto) 61.6 Lymph % (Auto) 28.1 Larue % (Auto) 8.2 Eos % (Auto) 1.1 Baso % (Auto) 0.5 Lymph # (Auto) 3.0 Larue # (Auto) 0.9 Eos # (Auto) 0.1 Baso # (Auto) 0.1 Abs Immat Gran (auto) 0.05 H Absolute Neuts (auto) 6.5 Absolute Nucleated RBC 0.000 Nucleated RBC % (auto) 0.0 Sodium 146 H Potassium 4.0 Chloride 107 Carbon Dioxide 28 Anion Gap 15 BUN 16 Creatinine 0.65 Estim Creat Clear Calc 216.8 Estimated GFR > 60 Random Glucose 107 Calcium 9.6 Magnesium 2.1 Total Bilirubin 0.9 Direct Bilirubin 0.3 AST 12 ALT 10 Alkaline Phosphatase 65 Total Protein 7.8 Albumin 4.3 Salicylates < 5.0 L Acetaminophen < 5 Valproic Acid 60.5 COVID-19 (JONA) Negative COVID-19 Clin Com See Note Meds/Allergies Allergies Allergies Allergy/AdvReac Type Severity Reaction Status Date / Time kiwi [KIWI] Allergy Mild HIVES Verified 07/07/23 10:07 mold [MOLD EXTRACTS*] Allergy Mild HIVES Verified 07/07/23 10:07 Mental Status Exam Mental Status Exam Patient Appearance: Fatigued and Disheveled Patient Orientation: Person, Place and Situation Level of Consciousness: Alert Patient Behavior: Talkative, Hyperactive, Suspicious, Hypersexual, Restless, Belligerent, Wandering, Verbal Threats, Anxious, Fatigued, Distractible, Confused, Good Eye Contact and Impulsive Mood Description: Hostile, Labile and Expansive Affect Description: Labile Patient Cognition Impaired: No Ability to Follow Directions: Good Speech Pattern: Perseverating, Spontaneous Speech, Rambling, Cofabulation, Rapid, Excessive, Loud, Pressured and Includes Profanity Memory Description: Remote Impaired, Immediate Impaired, Episodic Impaired and Recent Impaired Hallucinations: None (denies) Delusions: Paranoid Ideation and Grandiose Perceptual Disturbances: Depersonalization and Derealization Thought Process: Racing, Illogical, Distracted and Confusion Thought Content: positive for Flight of Ideas, positive for Racing, positive for Perseveration, positive for Loose Associations, positive for Tangential, positive for Disorganized, positive for Suicidal Ideation (denies) and positive for Homicidal Ideation (denies) Depressive Symptoms: Insomnia (family reports 4 days without sleep), Increased Irritability, Difficulty Sleeping, Loss of Int. in Activity, Increased Fatigue, Thoughts of /Suicide (denies) and Low Self Esteem Abnormal Motor Activity Signs and Symptoms: Aggression, Agitation, Hyperactivity and Restlessness Judgement: Poor Assessment & Plan Assessment & Plan (1) Bipolar disorder with psychotic features: Status: Acute Code(s): F31.9 - Bipolar disorder, unspecified (2) Schizoaffective disorder, bipolar type: Status: Acute Code(s): F25.0 - Schizoaffective disorder, bipolar type Plan 33 yo female with a history of bipolar disorder with psychosis/schizoaffective disorder presents with acute brendon after stopping medications on 09/03 (Depakote). Plan: Re-start and stabilize regime Olanzapine 10 mg HS When recompensated, discuss THOMAS with pt and family. Collateral contact Family Intervention Medical Management of sx. Patient educated on: medication risk/benefits Informed Consent: does not understand Reason for continued inpatient stay Substantial Risk for: rapid decompensation Statement Statement: I have reviewed the history and physical and performed a pertinent examination on my patient. No changes have occurred unless specified. If the History and Physical was not performed prior to admission, the Hospitalist's service will be consulted for completing the admission physical. Time Spent With Patient Time: Total time managing care of this patient today ____ minutes.
[2023-09-08] MEDS: LORazepam 1 MG TABLET PO (06:12)
[2023-09-08] MEDS: OLANZapine ODT 10 MG TAB.RAPDIS TRANSLINGU (06:12)
[2023-09-08 07:00] VITALS: BP 134/78; PULSE 95; TEMP 36.6; O2SAT 97
[2023-09-08] MEDS: HaloperidoL 5 MG TABLET 10 MG PO (08:41)
[2023-09-08 15:01] VITALS: BMI 60.1
--- NOTE | 2023-09-08 15:53 | HO.PSYCHPN ---
Subjective Subjective Date of Service: 09/08/23 Reason For Visit: brendon,psychosis Subjective Notes: Conditional Voluntary Healthcare Proxy: No Guardianship: No Medical Problems Affecting Mental Status: No Interim History: Team reports pt slept 3 hours. She continues with brendon, agitation, psychosis with some decrease of sx. She speaks loudly at times, can make improper comments of a sexual nature and has periods of disorganization, tangential content, racing of thought and confusion. These with some calm, apprpropriate periods of interaction. She is resting with meds. Family brought in clothing for pt. Meds reviewed, will increase Depakote to 1000 mg bid, Zyprexa to 20 mg HS and continue Haldol with the goal of sleep, euthymia. Labs 09/09/23. Call from pt's father to check in on her. Pt reports she feels OK but questions the brothel environment and points out certain peers whom she has suspicion of, along with team. Medication Compliance: Yes Side effects from medications: No Attending Groups: No Review of Systems Acute medical concerns: No Medical Review of Systems: unchanged Review of Systems Review of Systems Yes all other systems are reviewed and are negative ( I am ready to roar denies sx) Mental Status Exam Mental Status Exam Patient Appearance: Appropriate Patient Orientation: Person, Place and Situation Level of Consciousness: Alert Patient Behavior: Talkative, Hyperactive, Suspicious, Hypersexual, Restless, Belligerent, Wandering, Verbal Threats, Anxious, Fatigued, Distractible, Confused, Good Eye Contact and Impulsive Mood Description: Labile and Expansive Affect Description: Labile Patient Cognition Impaired: No Ability to Follow Directions: Good Speech Pattern: Perseverating, Spontaneous Speech, Rambling, Cofabulation, Rapid, Excessive, Loud, Pressured and Includes Profanity Memory Description: Remote Impaired, Immediate Impaired, Episodic Impaired and Recent Impaired Hallucinations: None (denies) Delusions: Paranoid Ideation and Grandiose Perceptual Disturbances: Depersonalization and Derealization Thought Process: Racing, Illogical, Distracted and Confusion Thought Content: positive for Flight of Ideas, positive for Racing, positive for Perseveration, positive for Loose Associations, positive for Tangential, positive for Disorganized, positive for Suicidal Ideation (denies) and positive for Homicidal Ideation (denies) Depressive Symptoms: Insomnia (family reports 4 days without sleep), Increased Irritability, Difficulty Sleeping, Loss of Int. in Activity, Increased Fatigue, Thoughts of /Suicide (denies) and Low Self Esteem Abnormal Motor Activity Signs and Symptoms: Aggression, Agitation, Hyperactivity and Restlessness Judgement: Poor Diagnostics Vital Signs (24Hr): Vital Signs - 24 hr 09/08/23 07:00 Temperature 97.9 F Pulse Rate 95 Blood Pressure 134/78 Pulse Oximetry 97 Oxygen Delivery Method Room Air BMI result Body Mass Index 60.1 Labs 09/06/23 10:23 09/06/23 10:23 Labs: Laboratory Results - last 48 hr 09/06/23 16:15 COVID-19 (JONA) Negative COVID-19 Clin Com See Note Medications Medications Current Medications Acetaminophen (Acetaminophen 325 Mg Tablet) 650 mg PO Q6H PRN PRN Reason: Headache/Pain Mild Scale (1-3) Last Admin: 09/07/23 16:09 Dose: 650 mg Al Hydroxide/Mg Hydroxide (Magnesium Hydrox/Alum Hydrox 30 Ml Oral.Susp) 30 ml PO Q6H PRN PRN Reason: Heartburn/Nausea Divalproex Sodium (Divalproex Sodium 500 Mg Tablet.Dr) 1,000 mg PO BID INOCENCIO Haloperidol (Haloperidol 5 Mg Tablet) 10 mg PO BID INOCENCIO Last Admin: 09/08/23 08:41 Dose: 10 mg Hydroxyzine HCl (Hydroxyzine Hcl 25 Mg Tablet) 25 mg PO Q6H PRN PRN Reason: Anxiety Lorazepam (Lorazepam 1 Mg Tablet) 1 mg PO TID PRN PRN Reason: agitation or anxiety Last Admin: 09/08/23 06:12 Dose: 1 mg Magnesium Hydroxide (Milk Of Magnesia 30 Ml Oral.Susp) 30 ml PO DAILY PRN PRN Reason: Constipation Nicotine Polacrilex (Nicotine Polacrilex 2 Mg Gum) 4 mg BUCCAL Q2H PRN PRN Reason: Nicotine Cravings Nystatin (Nystatin Powder 15 Gm Bottle) 1 appl TOPICAL BID INOCENCIO; Protocol Last Admin: 09/08/23 07:10 Dose: 1 appl Olanzapine (Olanzapine Odt 10 Mg Tab.Rapdis) 10 mg TRANSLINGU TID PRN PRN Reason: agitation Last Admin: 09/08/23 06:12 Dose: 10 mg Olanzapine (Olanzapine Odt 10 Mg Tab.Rapdis) 20 mg TRANSLINGU BEDTIME INOCENCIO Trazodone HCl (Trazodone Hcl 50 Mg Tablet) 50 mg PO BEDTIME MRX1 PRN PRN Reason: Insomnia Allergies Allergies Allergy/AdvReac Type Severity Reaction Status Date / Time kiwi [KIWI] Allergy Mild HIVES Verified 07/07/23 10:07 mold [MOLD EXTRACTS*] Allergy Mild HIVES Verified 07/07/23 10:07 Assessment & Plan Assessment & Plan (1) Bipolar disorder with psychotic features: Status: Acute Code(s): F31.9 - Bipolar disorder, unspecified (2) Schizoaffective disorder, bipolar type: Status: Acute Code(s): F25.0 - Schizoaffective disorder, bipolar type Plan 33 yo female with a history of bipolar disorder with psychosis/schizoaffective disorder presents with acute brendon after stopping medications on 09/03 (Depakote). Plan: Re-start and stabilize regime Olanzapine 10 mg HS When recompensated, discuss THOMAS with pt and family. Collateral contact Family Intervention Medical Management of sx. 09/08/23 Increase Depakote to 1000 mg bid Increase Olanzapine to 20 mg daily Continue Haldol Labs 09/09/23. Patient educated on: therapeutic strategies Informed Consent: further education needed Reason for continued inpatient stay Substantial Risk for: med/psych decompensation Time Spent With Patient Time: Total time managing care of this patient today ____ minutes.
[2023-09-08 19:50] VITALS: BP 129/61; PULSE 98; RESP 16; TEMP 36.6; O2SAT 96
[2023-09-09 08:00] VITALS: BP 140/99; PULSE 93; RESP 18; TEMP 36.9; O2SAT 98
--- NOTE | 2023-09-09 14:03 | HO.PSYCHPN ---
Subjective Subjective Date of Service: 09/09/23 Reason For Visit: brendon,psychosis Subjective Notes: Conditional Voluntary Healthcare Proxy: No Guardianship: No Medical Problems Affecting Mental Status: No Interim History: I am going to announce my today. Gradual improvements with ongoing presence of symptoms. Compression stockings ordered for BLE edema Pt urinated on the floor per team report this a.m. Asks about going home. Discussed treatment compliance. Is there any way out of that? Team report pt has some skin breakdown in angelic area-she is in need of extended shower/ nystatin. Team will make arrangement to assist her in this ADL activity. Team report mother has called, informing them she is active HCP, however we do not have a hard copy of this. Father is not sure this HCP is valid. Medication Compliance: Yes Side effects from medications: No Attending Groups: No Review of Systems Acute medical concerns: No Medical Review of Systems: unchanged Review of Systems Review of Systems Yes Unobtainable due to mental status (pt denies) Mental Status Exam Mental Status Exam Narrative: Gradual symptom improvement Patient Appearance: Appropriate Patient Orientation: Person, Place and Situation Level of Consciousness: Alert Patient Behavior: Talkative, Hyperactive, Suspicious, Hypersexual, Restless, Belligerent, Wandering, Verbal Threats, Anxious, Fatigued, Distractible, Confused, Good Eye Contact and Impulsive Mood Description: Labile and Expansive Affect Description: Labile Patient Cognition Impaired: No Ability to Follow Directions: Good Speech Pattern: Perseverating, Spontaneous Speech, Rambling, Cofabulation, Rapid, Excessive, Loud, Pressured and Includes Profanity Memory Description: Remote Impaired, Immediate Impaired, Episodic Impaired and Recent Impaired Hallucinations: None (denies) Delusions: Paranoid Ideation and Grandiose Perceptual Disturbances: Depersonalization and Derealization Thought Process: Racing, Illogical, Distracted and Confusion Thought Content: positive for Flight of Ideas, positive for Racing, positive for Perseveration, positive for Loose Associations, positive for Tangential, positive for Disorganized, positive for Suicidal Ideation (denies) and positive for Homicidal Ideation (denies) Depressive Symptoms: Insomnia (family reports 4 days without sleep), Increased Irritability, Difficulty Sleeping, Loss of Int. in Activity, Increased Fatigue, Thoughts of /Suicide (denies) and Low Self Esteem Abnormal Motor Activity Signs and Symptoms: Aggression, Agitation, Hyperactivity and Restlessness Judgement: Poor Diagnostics Vital Signs (24Hr): Vital Signs - 24 hr 09/08/23 19:50 09/09/23 08:00 Temperature 97.8 F 98.4 F Pulse Rate 98 93 Respiratory Rate 16 18 Blood Pressure 129/61 140/99 H Pulse Oximetry 96 98 Oxygen Delivery Method Room Air Room Air BMI result Body Mass Index 60.1 Labs 09/06/23 10:23 09/06/23 10:23 Labs: Laboratory Results - last 48 hr 09/09/23 08:42 Triglycerides 161 H Cholesterol 171 LDL Cholesterol, Calc 89 HDL Cholesterol 50 Vitamin B12 336 Folate 8.4 TSH 1.68 Valproic Acid 31.0 L Medications Medications Current Medications Acetaminophen (Acetaminophen 325 Mg Tablet) 650 mg PO Q6H PRN PRN Reason: Headache/Pain Mild Scale (1-3) Last Admin: 09/07/23 16:09 Dose: 650 mg Al Hydroxide/Mg Hydroxide (Magnesium Hydrox/Alum Hydrox 30 Ml Oral.Susp) 30 ml PO Q6H PRN PRN Reason: Heartburn/Nausea Divalproex Sodium (Divalproex Sodium 500 Mg Tablet.Dr) 1,000 mg PO BID [facility] Last Admin: 09/09/23 08:18 Dose: 1,000 mg Haloperidol (Haloperidol 5 Mg Tablet) 10 mg PO BID [facility] Last Admin: 09/09/23 08:18 Dose: 10 mg Hydroxyzine HCl (Hydroxyzine Hcl 25 Mg Tablet) 25 mg PO Q6H PRN PRN Reason: Anxiety Lorazepam (Lorazepam 1 Mg Tablet) 1 mg PO TID PRN PRN Reason: agitation or anxiety Last Admin: 09/08/23 06:12 Dose: 1 mg Magnesium Hydroxide (Milk Of Magnesia 30 Ml Oral.Susp) 30 ml PO DAILY PRN PRN Reason: Constipation Nicotine Polacrilex (Nicotine Polacrilex 2 Mg Gum) 4 mg BUCCAL Q2H PRN PRN Reason: Nicotine Cravings Nystatin (Nystatin Powder 15 Gm Bottle) 1 appl TOPICAL BID [facility]; Protocol Last Admin: 09/08/23 22:09 Dose: 1 appl Olanzapine (Olanzapine Odt 10 Mg Tab.Rapdis) 10 mg TRANSLINGU TID PRN PRN Reason: agitation Last Admin: 09/08/23 06:12 Dose: 10 mg Olanzapine (Olanzapine Odt 10 Mg Tab.Rapdis) 20 mg TRANSLINGU BEDTIME [facility] Last Admin: 09/08/23 22:02 Dose: 20 mg Trazodone HCl (Trazodone Hcl 50 Mg Tablet) 50 mg PO BEDTIME MRX1 PRN PRN Reason: Insomnia Allergies Allergies Allergy/AdvReac Type Severity Reaction Status Date / Time kiwi [KIWI] Allergy Mild HIVES Verified 07/07/23 10:07 mold [MOLD EXTRACTS*] Allergy Mild HIVES Verified 07/07/23 10:07 Assessment & Plan Assessment & Plan (1) Bipolar disorder with psychotic features: Status: Acute Code(s): F31.9 - Bipolar disorder, unspecified (2) Schizoaffective disorder, bipolar type: Status: Acute Code(s): F25.0 - Schizoaffective disorder, bipolar type Plan 33 yo female with a history of bipolar disorder with psychosis/schizoaffective disorder presents with acute brendon after stopping medications on 09/03 (Depakote). Plan: Re-start and stabilize regime Olanzapine 10 mg HS When recompensated, discuss THOMAS with pt and family. Collateral contact Family Intervention Medical Management of sx. 09/08/23 Increase Depakote to 1000 mg bid Increase Olanzapine to 20 mg daily Continue Haldol Labs 09/09/23. 09/09/23 Continue current regime Informed Consent: further education needed Reason for continued inpatient stay Substantial Risk for: rapid decompensation Time Spent With Patient Time: Total time managing care of this patient today ____ minutes.
[2023-09-09 16:30] VITALS: BP 130/60; PULSE 97; RESP 16; TEMP 37; O2SAT 95
[2023-09-10 06:00] VITALS: BP 127/85; PULSE 95; RESP 20; TEMP 36.5; O2SAT 97
--- NOTE | 2023-09-10 15:36 | HO.PSYCHPN ---
Subjective Subjective Date of Service: 09/10/23 Reason For Visit: brendon,psychosis Subjective Notes: Conditional Voluntary Healthcare Proxy: No Guardianship: No Medical Problems Affecting Mental Status: No Interim History: Remains with symptoms of brendon, disinhibition, suggestive sexual comments. States overall she is feeling improved. Incontinent of urine. Reports sx of UTI. Medication Compliance: Yes Side effects from medications: No Attending Groups: Intermittent Review of Systems Acute medical concerns: No Medical Review of Systems: unchanged Review of Systems Review of Systems Reports sx of UTI Fungal skin infection. Mental Status Exam Mental Status Exam Narrative: Gradual symptom improvement Patient Appearance: Appropriate Patient Orientation: Person, Place and Situation Level of Consciousness: Alert Patient Behavior: Talkative, Hyperactive, Suspicious, Hypersexual, Restless, Belligerent, Wandering, Verbal Threats, Anxious, Fatigued, Distractible, Confused, Good Eye Contact and Impulsive Mood Description: Labile and Expansive Affect Description: Labile Patient Cognition Impaired: No Ability to Follow Directions: Good Speech Pattern: Perseverating, Spontaneous Speech, Rambling, Cofabulation, Rapid, Excessive, Loud, Pressured and Includes Profanity Memory Description: Remote Impaired, Immediate Impaired, Episodic Impaired and Recent Impaired Hallucinations: None (denies) Delusions: Paranoid Ideation and Grandiose Perceptual Disturbances: Depersonalization and Derealization Thought Process: Racing, Illogical, Distracted and Confusion Thought Content: positive for Flight of Ideas, positive for Racing, positive for Perseveration, positive for Loose Associations, positive for Tangential, positive for Disorganized, positive for Suicidal Ideation (denies) and positive for Homicidal Ideation (denies) Depressive Symptoms: Insomnia (family reports 4 days without sleep), Increased Irritability, Difficulty Sleeping, Loss of Int. in Activity, Increased Fatigue, Thoughts of /Suicide (denies) and Low Self Esteem Abnormal Motor Activity Signs and Symptoms: Aggression, Agitation, Hyperactivity and Restlessness Judgement: Poor Diagnostics Vital Signs (24Hr): Vital Signs - 24 hr 09/09/23 16:30 09/10/23 06:00 Temperature 98.6 F 97.7 F Pulse Rate 97 95 Respiratory Rate 16 20 Blood Pressure 130/60 127/85 Pulse Oximetry 95 97 Oxygen Delivery Method Room Air Room Air BMI result Body Mass Index 60.1 Labs 09/06/23 10:23 09/06/23 10:23 Labs: Laboratory Results - last 48 hr 09/09/23 08:42 Triglycerides 161 H Cholesterol 171 LDL Cholesterol, Calc 89 HDL Cholesterol 50 Vitamin B12 336 Folate 8.4 TSH 1.68 Valproic Acid 31.0 L Medications Medications Current Medications Acetaminophen (Acetaminophen 325 Mg Tablet) 650 mg PO Q6H PRN PRN Reason: Headache/Pain Mild Scale (1-3) Last Admin: 09/07/23 16:09 Dose: 650 mg Al Hydroxide/Mg Hydroxide (Magnesium Hydrox/Alum Hydrox 30 Ml Oral.Susp) 30 ml PO Q6H PRN PRN Reason: Heartburn/Nausea Divalproex Sodium (Divalproex Sodium 500 Mg Tablet.Dr) 1,000 mg PO BID INOCENCIO Last Admin: 09/10/23 09:27 Dose: 1,000 mg Haloperidol (Haloperidol 5 Mg Tablet) 10 mg PO BID INOCENCIO Last Admin: 09/10/23 09:27 Dose: 10 mg Hydroxyzine HCl (Hydroxyzine Hcl 25 Mg Tablet) 25 mg PO Q6H PRN PRN Reason: Anxiety Lorazepam (Lorazepam 1 Mg Tablet) 1 mg PO TID PRN PRN Reason: agitation or anxiety Last Admin: 09/09/23 21:35 Dose: 1 mg Magnesium Hydroxide (Milk Of Magnesia 30 Ml Oral.Susp) 30 ml PO DAILY PRN PRN Reason: Constipation Nicotine Polacrilex (Nicotine Polacrilex 2 Mg Gum) 4 mg BUCCAL Q2H PRN PRN Reason: Nicotine Cravings Nystatin (Nystatin Powder 15 Gm Bottle) 1 appl TOPICAL BID INOCENCIO; Protocol Last Admin: 09/10/23 10:16 Dose: 1 appl Nystatin (Nystatin Cream 15 Gm Tube) 1 appl TOPICAL BID INOCENCIO; Protocol Last Admin: 09/10/23 10:15 Dose: 1 appl Olanzapine (Olanzapine Odt 10 Mg Tab.Rapdis) 10 mg TRANSLINGU TID PRN PRN Reason: agitation Last Admin: 09/08/23 06:12 Dose: 10 mg Olanzapine (Olanzapine Odt 10 Mg Tab.Rapdis) 20 mg TRANSLINGU BEDTIME INOCENCIO Last Admin: 09/09/23 21:35 Dose: 20 mg Phenazopyridine HCl (Phenazopyridine Hcl 100 Mg Tablet) 100 mg PO BIDWM PRN PRN Reason: uti sx Stop: 09/12/23 10:35 Trazodone HCl (Trazodone Hcl 50 Mg Tablet) 50 mg PO BEDTIME MRX1 PRN PRN Reason: Insomnia Trimethoprim/Sulfamethoxazole (Sulfamethox/Trimeth 800/160 Tablet) 1 tab PO Q12H INOCENCIO Stop: 09/12/23 09:00 Last Admin: 09/10/23 11:58 Dose: 1 tab Allergies Allergies Allergy/AdvReac Type Severity Reaction Status Date / Time kiwi [KIWI] Allergy Mild HIVES Verified 07/07/23 10:07 mold [MOLD EXTRACTS*] Allergy Mild HIVES Verified 07/07/23 10:07 Assessment & Plan Assessment & Plan (1) Bipolar disorder with psychotic features: Status: Acute Code(s): F31.9 - Bipolar disorder, unspecified (2) Schizoaffective disorder, bipolar type: Status: Acute Code(s): F25.0 - Schizoaffective disorder, bipolar type Plan 33 yo female with a history of bipolar disorder with psychosis/schizoaffective disorder presents with acute brendon after stopping medications on 09/03 (Depakote). Plan: Re-start and stabilize regime Olanzapine 10 mg HS When recompensated, discuss THOMAS with pt and family. Collateral contact Family Intervention Medical Management of sx. 09/08/23 Increase Depakote to 1000 mg bid Increase Olanzapine to 20 mg daily Continue Haldol Labs 09/09/23. 09/09/23 Continue current regime 09/10/23 Symptoms of UTI Urine culture, Bactrim DS, Pyridium Patient educated on: medical condition Informed Consent: further education needed Reason for continued inpatient stay Substantial Risk for: rapid decompensation and med/psych decompensation Time Spent With Patient Time: Total time managing care of this patient today ____ minutes.
[2023-09-10 18:05] VITALS: BP 133/74; PULSE 101; RESP 16; TEMP 36.8; O2SAT 97
--- NOTE | 2023-09-11 05:02 | PC.NURSE ---
PT WAS INCONTINENT OF URINE AT 0420. PT SHOWERED WITH ASSISTANCE FROM RN. NYSTATIN POWDER APPLIED TO CEAN, DRY LAMBERT AREA. BED LINENS CHANGED.
[2023-09-11 06:00] VITALS: BP 146/95; PULSE 80; RESP 18; TEMP 36.8; O2SAT 99
--- NOTE | 2023-09-11 14:47 | HO.PSYCHPN ---
Subjective Subjective Date of Service: 09/11/23 Reason For Visit: brendon,psychosis Subjective Notes: Conditional Voluntary Healthcare Proxy: No Guardianship: No Medical Problems Affecting Mental Status: No Interim History: Remains manic, disinhibited, sexually focused (however UTI sx), incontinent of urine x 1, showered with assist of team. Pt placed herself on the floor mid a.m. and would not get up. Assisted by team, peers, security with encouragement to get up. She declined, states she could not, however, with full limb ROM and strength. Pt experiencing some delusional content-believes she is and delivering a child. Haldol 10 mg given to assist with sx mgt. Pt decided to rest on the floor near to the nurses station. Call from mother who reports [facility] meeting 09/12 9am. Call from pt's father who reports several things happening for pt. 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 Also, father and sister have just learned that pt has been sending sexually explicit messages to local police who frequented her business. Family is beginning to talk with her about this. Father is concerned pt is acting out today. Discussed that we are seeing this as a sx of brendon/psychosis and with above new information, probably added stress with family learning this new information. Pt reports physically she is feeling well, except for delivering a child. She presents with no sx of acute physical pain, full ROM in each limb. Active delusional content. Medication Compliance: Yes Side effects from medications: No Attending Groups: No Review of Systems UTI sx Incontinence Medical Review of Systems: unchanged Review of Systems Review of Systems UTI sx Mental Status Exam Mental Status Exam Narrative: Gradual symptom improvement Patient Appearance: Appropriate Patient Orientation: Person, Place and Situation Level of Consciousness: Alert Patient Behavior: Talkative, Hyperactive, Suspicious, Hypersexual, Restless, Belligerent, Wandering, Verbal Threats, Anxious, Fatigued, Distractible, Confused, Good Eye Contact and Impulsive Mood Description: Labile and Expansive Affect Description: Labile Patient Cognition Impaired: No Ability to Follow Directions: Good Speech Pattern: Perseverating, Spontaneous Speech, Rambling, Cofabulation, Rapid, Excessive, Loud, Pressured and Includes Profanity Memory Description: Remote Impaired, Immediate Impaired, Episodic Impaired and Recent Impaired Hallucinations: None (denies) Delusions: Paranoid Ideation and Grandiose Perceptual Disturbances: Depersonalization and Derealization Thought Process: Racing, Illogical, Distracted and Confusion Thought Content: positive for Flight of Ideas, positive for Racing, positive for Perseveration, positive for Loose Associations, positive for Tangential, positive for Disorganized, positive for Suicidal Ideation (denies) and positive for Homicidal Ideation (denies) Depressive Symptoms: Insomnia (family reports 4 days without sleep), Increased Irritability, Difficulty Sleeping, Loss of Int. in Activity, Increased Fatigue, Thoughts of /Suicide (denies) and Low Self Esteem Abnormal Motor Activity Signs and Symptoms: Aggression, Agitation, Hyperactivity and Restlessness Judgement: Poor Diagnostics Vital Signs (24Hr): Vital Signs - 24 hr 09/10/23 18:05 09/11/23 06:00 Temperature 98.2 F 98.3 F Pulse Rate 101 H 80 Respiratory Rate 16 18 Blood Pressure 133/74 146/95 H Pulse Oximetry 97 99 Oxygen Delivery Method Room Air Room Air BMI result Body Mass Index 60.1 Labs 09/06/23 10:23 09/06/23 10:23 Medications Medications Current Medications Acetaminophen (Acetaminophen 325 Mg Tablet) 650 mg PO Q6H PRN PRN Reason: Headache/Pain Mild Scale (1-3) Last Admin: 09/07/23 16:09 Dose: 650 mg Al Hydroxide/Mg Hydroxide (Magnesium Hydrox/Alum Hydrox 30 Ml Oral.Susp) 30 ml PO Q6H PRN PRN Reason: Heartburn/Nausea Divalproex Sodium (Divalproex Sodium 500 Mg Tablet.Dr) 1,000 mg PO BID [facility] Last Admin: 09/11/23 09:44 Dose: 1,000 mg Haloperidol (Haloperidol 5 Mg Tablet) 10 mg PO BID [facility] Last Admin: 09/11/23 09:44 Dose: 10 mg Hydroxyzine HCl (Hydroxyzine Hcl 25 Mg Tablet) 25 mg PO Q6H PRN PRN Reason: Anxiety Lorazepam (Lorazepam 1 Mg Tablet) 1 mg PO TID PRN PRN Reason: agitation or anxiety Last Admin: 09/11/23 09:44 Dose: 1 mg Magnesium Hydroxide (Milk Of Magnesia 30 Ml Oral.Susp) 30 ml PO DAILY PRN PRN Reason: Constipation Nicotine Polacrilex (Nicotine Polacrilex 2 Mg Gum) 4 mg BUCCAL Q2H PRN PRN Reason: Nicotine Cravings Nystatin (Nystatin Powder 15 Gm Bottle) 1 appl TOPICAL BID [facility]; Protocol Last Admin: 09/11/23 05:01 Dose: 1 appl Nystatin (Nystatin Cream 15 Gm Tube) 1 appl TOPICAL BID [facility]; Protocol Last Admin: 09/11/23 11:42 Dose: Not Given Olanzapine (Olanzapine Odt 10 Mg Tab.Rapdis) 10 mg TRANSLINGU TID PRN PRN Reason: agitation Last Admin: 09/11/23 09:44 Dose: 10 mg Olanzapine (Olanzapine Odt 10 Mg Tab.Rapdis) 20 mg TRANSLINGU BEDTIME INOCENCIO Last Admin: 09/10/23 20:24 Dose: 20 mg Phenazopyridine HCl (Phenazopyridine Hcl 100 Mg Tablet) 100 mg PO BIDWM PRN PRN Reason: uti sx Stop: 09/12/23 10:35 Trazodone HCl (Trazodone Hcl 50 Mg Tablet) 50 mg PO BEDTIME MRX1 PRN PRN Reason: Insomnia Trimethoprim/Sulfamethoxazole (Sulfamethox/Trimeth 800/160 Tablet) 1 tab PO Q12H [facility] Last Admin: 09/11/23 09:44 Dose: 1 tab Allergies Allergies Allergy/AdvReac Type Severity Reaction Status Date / Time kiwi [KIWI] Allergy Mild HIVES Verified 07/07/23 10:07 mold [MOLD EXTRACTS*] Allergy Mild HIVES Verified 07/07/23 10:07 Assessment & Plan Assessment & Plan (1) Bipolar disorder with psychotic features: Status: Acute Code(s): F31.9 - Bipolar disorder, unspecified (2) Schizoaffective disorder, bipolar type: Status: Acute Code(s): F25.0 - Schizoaffective disorder, bipolar type Plan 33 yo female with a history of bipolar disorder with psychosis/schizoaffective disorder presents with acute brendon after stopping medications on 09/03 (Depakote). Plan: Re-start and stabilize regime Olanzapine 10 mg HS When recompensated, discuss THOMAS with pt and family. Collateral contact Family Intervention Medical Management of sx. 09/08/23 Increase Depakote to 1000 mg bid Increase Olanzapine to 20 mg daily Continue Haldol Labs 09/09/23. 09/09/23 Continue current regime 09/10/23 Symptoms of UTI Urine culture, Bactrim DS, Pyridium 09/11/23 Increase in delusional, disinhibited sx today. Haldol 10 mg po x 1 prn On 09/12 increase Haldol to 10 mg tid Patient educated on: medical condition Informed Consent: does not understand and further education needed Reason for continued inpatient stay Substantial Risk for: rapid decompensation and med/psych decompensation Time Spent With Patient Time: Total time managing care of this patient today ____ minutes.
[2023-09-11 18:40] VITALS: BP 139/87; PULSE 99; RESP 16; TEMP 36.5; O2SAT 100
--- NOTE | 2023-09-12 10:08 | HO.PSYCHPN ---
Subjective Subjective Date of Service: 09/12/23 Reason For Visit: brendon,psychosis Subjective Notes: Conditional Voluntary Healthcare Proxy: No Guardianship: No Medical Problems Affecting Mental Status: No Interim History: Met with pt. Reviewed with team Improved today. Clearer, more direct train of thought, more grounded, less delusional content. Family has not visited-they call, daily (father, mother, sister). Pt reported feeling lonely. Team report urinary incontinence. Culture pending. Medication Compliance: Yes Side effects from medications: No Attending Groups: No Review of Systems Acute medical concerns: No Medical Review of Systems: unchanged Review of Systems Review of Systems urinary incontinence, ?UTI Mental Status Exam Mental Status Exam Patient Appearance: Appropriate Patient Orientation: Person, Place and Situation Level of Consciousness: Alert Patient Behavior: Talkative, Hyperactive, Suspicious, Hypersexual, Restless, Belligerent, Wandering, Verbal Threats, Anxious, Fatigued, Distractible, Confused, Good Eye Contact and Impulsive Mood Description: Labile and Expansive Affect Description: Labile Patient Cognition Impaired: No Ability to Follow Directions: Good Speech Pattern: Perseverating, Spontaneous Speech, Rambling, Cofabulation, Rapid, Excessive, Loud, Pressured and Includes Profanity Memory Description: Remote Impaired, Immediate Impaired, Episodic Impaired and Recent Impaired Hallucinations: None (denies) Delusions: Paranoid Ideation and Grandiose Perceptual Disturbances: Depersonalization and Derealization Thought Process: Racing, Illogical, Distracted and Confusion Thought Content: positive for Flight of Ideas, positive for Racing, positive for Perseveration, positive for Loose Associations, positive for Tangential, positive for Disorganized, positive for Suicidal Ideation (denies) and positive for Homicidal Ideation (denies) Depressive Symptoms: Insomnia (family reports 4 days without sleep), Increased Irritability, Difficulty Sleeping, Loss of Int. in Activity, Increased Fatigue, Thoughts of /Suicide (denies) and Low Self Esteem Abnormal Motor Activity Signs and Symptoms: Aggression, Agitation, Hyperactivity and Restlessness Judgement: Poor Diagnostics Vital Signs (24Hr): Vital Signs - 24 hr 09/11/23 18:40 Temperature 97.7 F Pulse Rate 99 Respiratory Rate 16 Blood Pressure 139/87 Pulse Oximetry 100 Oxygen Delivery Method Room Air BMI result Body Mass Index 60.1 Labs 09/06/23 10:23 09/06/23 10:23 Medications Medications Current Medications Acetaminophen (Acetaminophen 325 Mg Tablet) 650 mg PO Q6H PRN PRN Reason: Headache/Pain Mild Scale (1-3) Last Admin: 09/07/23 16:09 Dose: 650 mg Al Hydroxide/Mg Hydroxide (Magnesium Hydrox/Alum Hydrox 30 Ml Oral.Susp) 30 ml PO Q6H PRN PRN Reason: Heartburn/Nausea Divalproex Sodium (Divalproex Sodium 500 Mg Tablet.Dr) 1,000 mg PO BID [facility] Last Admin: 09/12/23 08:48 Dose: 1,000 mg Haloperidol (Haloperidol 5 Mg Tablet) 10 mg PO TID INOCENCIO Last Admin: 09/12/23 08:47 Dose: 10 mg Hydroxyzine HCl (Hydroxyzine Hcl 25 Mg Tablet) 25 mg PO Q6H PRN PRN Reason: Anxiety Lorazepam (Lorazepam 1 Mg Tablet) 1 mg PO TID PRN PRN Reason: agitation or anxiety Last Admin: 09/11/23 09:44 Dose: 1 mg Magnesium Hydroxide (Milk Of Magnesia 30 Ml Oral.Susp) 30 ml PO DAILY PRN PRN Reason: Constipation Nicotine Polacrilex (Nicotine Polacrilex 2 Mg Gum) 4 mg BUCCAL Q2H PRN PRN Reason: Nicotine Cravings Nystatin (Nystatin Powder 15 Gm Bottle) 1 appl TOPICAL BID [facility]; Protocol Last Admin: 09/11/23 22:56 Dose: Not Given Nystatin (Nystatin Cream 15 Gm Tube) 1 appl TOPICAL BID [facility]; Protocol Last Admin: 09/11/23 22:33 Dose: 1 appl Olanzapine (Olanzapine Odt 10 Mg Tab.Rapdis) 10 mg TRANSLINGU TID PRN PRN Reason: agitation Last Admin: 09/11/23 09:44 Dose: 10 mg Olanzapine (Olanzapine Odt 10 Mg Tab.Rapdis) 20 mg TRANSLINGU BEDTIME [facility]OC[facility]IO Last Admin: 09/11/23 22:23 Dose: 20 mg Phenazopyridine HCl (Phenazopyridine Hcl 100 Mg Tablet) 100 mg PO BIDWM PRN PRN Reason: uti sx Stop: 09/12/23 10:35 Trazodone HCl (Trazodone Hcl 50 Mg Tablet) 50 mg PO BEDTIME MRX1 PRN PRN Reason: Insomnia Trimethoprim/Sulfamethoxazole (Sulfamethox/Trimeth 800/160 Tablet) 1 tab PO Q12H [facility] Last Admin: 09/12/23 08:48 Dose: 1 tab Allergies Allergies Allergy/AdvReac Type Severity Reaction Status Date / Time kiwi [KIWI] Allergy Mild HIVES Verified 07/07/23 10:07 mold [MOLD EXTRACTS*] Allergy Mild HIVES Verified 07/07/23 10:07 Assessment & Plan Assessment & Plan (1) Bipolar disorder with psychotic features: Status: Acute Code(s): F31.9 - Bipolar disorder, unspecified (2) Schizoaffective disorder, bipolar type: Status: Acute Code(s): F25.0 - Schizoaffective disorder, bipolar type Plan 33 yo female with a history of bipolar disorder with psychosis/schizoaffective disorder presents with acute brendon after stopping medications on 09/03 (Depakote). Plan: Re-start and stabilize regime Olanzapine 10 mg HS When recompensated, discuss THOMAS with pt and family. Collateral contact Family Intervention Medical Management of sx. 09/08/23 Increase Depakote to 1000 mg bid Increase Olanzapine to 20 mg daily Continue Haldol Labs 09/09/23. 09/09/23 Continue current regime 09/10/23 Symptoms of UTI Urine culture, Bactrim DS, Pyridium 09/11/23 Increase in delusional, disinhibited sx today. Haldol 10 mg po x 1 prn On 09/12 increase Haldol to 10 mg tid 09/12/22 Continue tx. Informed Consent: further education needed Reason for continued inpatient stay Substantial Risk for: rapid decompensation Time Spent With Patient Time: Total time managing care of this patient today ____ minutes.
[2023-09-12 10:18] VITALS: BP 130/77; PULSE 113; RESP 18; TEMP 36.7; O2SAT 113
[2023-09-12 16:10] VITALS: BP 124/71; PULSE 90; RESP 16; TEMP 36.3; O2SAT 100
--- NOTE | 2023-09-12 18:48 | PC.NURSE ---
Addendum entered by Purvi Barrera RN 09/12/23 18:50: Patient has a fungal rash under her breasts, in abdominal folds, inner thigh/groin folds. All areas were thoroughly washed and dried, lotion and powder were applied. Area under pt breast was very pale pink with no open areas, abdominal and inner thigh folds are very red. One small open area in fold of left thigh noted, provider aware. Original Note: Patient has a fungal rash under her breasts, a
[2023-09-12] MEDS: Sulfamethox/Trimeth 800/160 TABLET 1 TAB PO (20:21)
[2023-09-12] MEDS: Divalproex Sodium 500 MG TABLET.DR 1000 MG PO (20:21)
[2023-09-12] MEDS: HaloperidoL 5 MG TABLET 10 MG PO (20:22)
[2023-09-12] MEDS: OLANZapine ODT 10 MG TAB.RAPDIS 20 MG TRANSLINGU (20:22)
[2023-09-13 08:00] VITALS: BP 144/93; PULSE 83; TEMP 36.7; O2SAT 100
[2023-09-13] MEDS: HaloperidoL 5 MG TABLET 10 MG PO ×2 (08:21→16:42)
[2023-09-13] MEDS: Sulfamethox/Trimeth 800/160 TABLET 1 TAB PO (08:21)
[2023-09-13] MEDS: Divalproex Sodium 500 MG TABLET.DR 1000 MG PO (08:22)
[2023-09-13] MEDS: LORazepam 1 MG TABLET PO (10:11)
[2023-09-13] MEDS: Nicotine Polacrilex 2 MG GUM 4 MG BUCCAL (10:14)
[2023-09-13 16:25] VITALS: BP 119/56; PULSE 97; RESP 16; TEMP 36.6; O2SAT 95
--- NOTE | 2023-09-13 16:35 | HO.PSYCHPN ---
Subjective Subjective Date of Service: 09/13/23 Reason For Visit: brendon,psychosis Subjective Notes: Conditional Voluntary Healthcare Proxy: No Guardianship: No Medical Problems Affecting Mental Status: No Interim History: Met with pt, reviewed with team Pt asking to see family, asks that they be called to visit which was completed. Incontinent of urine x 1. Culture pending. Behaviorally some improved modualtion, less lability overall. More appropriate milieu interaction noted today. Medication Compliance: Yes Side effects from medications: No Attending Groups: Intermittent Review of Systems Acute medical concerns: No Medical Review of Systems: unchanged Review of Systems Review of Systems Yes Unobtainable due to mental status Mental Status Exam Mental Status Exam Patient Appearance: Appropriate Patient Orientation: Person, Place and Situation Level of Consciousness: Alert Patient Behavior: Talkative, Hyperactive, Suspicious, Hypersexual, Restless, Belligerent, Wandering, Verbal Threats, Anxious, Fatigued, Distractible, Confused, Good Eye Contact and Impulsive Mood Description: Labile and Expansive Affect Description: Labile Patient Cognition Impaired: No Ability to Follow Directions: Good Speech Pattern: Perseverating, Spontaneous Speech, Rambling, Cofabulation, Rapid, Excessive, Loud, Pressured and Includes Profanity Memory Description: Remote Impaired, Immediate Impaired, Episodic Impaired and Recent Impaired Hallucinations: None (denies) Delusions: Paranoid Ideation and Grandiose Perceptual Disturbances: Depersonalization and Derealization Thought Process: Racing, Illogical, Distracted and Confusion Thought Content: positive for Flight of Ideas, positive for Racing, positive for Perseveration, positive for Loose Associations, positive for Tangential, positive for Disorganized, positive for Suicidal Ideation (denies) and positive for Homicidal Ideation (denies) Depressive Symptoms: Insomnia (family reports 4 days without sleep), Increased Irritability, Difficulty Sleeping, Loss of Int. in Activity, Increased Fatigue, Thoughts of /Suicide (denies) and Low Self Esteem Abnormal Motor Activity Signs and Symptoms: Aggression, Agitation, Hyperactivity and Restlessness Judgement: Poor Diagnostics Vital Signs (24Hr): Vital Signs - 24 hr 09/13/23 08:00 Temperature 98.1 F Pulse Rate 83 Blood Pressure 144/93 H Pulse Oximetry 100 Oxygen Delivery Method Room Air BMI result Body Mass Index 60.1 Labs 09/06/23 10:23 09/06/23 10:23 Medications Medications Current Medications Acetaminophen (Acetaminophen 325 Mg Tablet) 650 mg PO Q6H PRN PRN Reason: Headache/Pain Mild Scale (1-3) Last Admin: 09/07/23 16:09 Dose: 650 mg Al Hydroxide/Mg Hydroxide (Magnesium Hydrox/Alum Hydrox 30 Ml Oral.Susp) 30 ml PO Q6H PRN PRN Reason: Heartburn/Nausea Divalproex Sodium (Divalproex Sodium 500 Mg Tablet.Dr) 1,000 mg PO BID [facility] Last Admin: 09/13/23 08:22 Dose: 1,000 mg Haloperidol (Haloperidol 5 Mg Tablet) 10 mg PO TID [facility] Last Admin: 09/13/23 08:21 Dose: 10 mg Hydroxyzine HCl (Hydroxyzine Hcl 25 Mg Tablet) 25 mg PO Q6H PRN PRN Reason: Anxiety Lorazepam (Lorazepam 1 Mg Tablet) 1 mg PO TID PRN PRN Reason: agitation or anxiety Last Admin: 09/13/23 10:11 Dose: 1 mg Magnesium Hydroxide (Milk Of Magnesia 30 Ml Oral.Susp) 30 ml PO DAILY PRN PRN Reason: Constipation Nicotine Polacrilex (Nicotine Polacrilex 2 Mg Gum) 4 mg BUCCAL Q2H PRN PRN Reason: Nicotine Cravings Last Admin: 09/13/23 10:14 Dose: 2 mg Nystatin (Nystatin Powder 15 Gm Bottle) 1 appl TOPICAL BID [facility]; Protocol Last Admin: 09/12/23 20:25 Dose: 1 appl Nystatin (Nystatin Cream 15 Gm Tube) 1 appl TOPICAL BID [facility]; Protocol Last Admin: 09/12/23 20:25 Dose: 1 appl Olanzapine (Olanzapine Odt 10 Mg Tab.Rapdis) 10 mg TRANSLINGU TID PRN PRN Reason: agitation Last Admin: 09/11/23 09:44 Dose: 10 mg Olanzapine (Olanzapine Odt 10 Mg Tab.Rapdis) 20 mg TRANSLINGU BEDTIME [facility] Last Admin: 09/12/23 20:22 Dose: 20 mg Trazodone HCl (Trazodone Hcl 50 Mg Tablet) 50 mg PO BEDTIME MRX1 PRN PRN Reason: Insomnia Trimethoprim/Sulfamethoxazole (Sulfamethox/Trimeth 800/160 Tablet) 1 tab PO Q12H [facility] Last Admin: 09/13/23 08:21 Dose: 1 tab Allergies Allergies Allergy/AdvReac Type Severity Reaction Status Date / Time kiwi [KIWI] Allergy Mild HIVES Verified 07/07/23 10:07 mold [MOLD EXTRACTS*] Allergy Mild HIVES Verified 07/07/23 10:07 Assessment & Plan Assessment & Plan (1) Bipolar disorder with psychotic features: Status: Acute Code(s): F31.9 - Bipolar disorder, unspecified (2) Schizoaffective disorder, bipolar type: Status: Acute Code(s): F25.0 - Schizoaffective disorder, bipolar type Plan 33 yo female with a history of bipolar disorder with psychosis/schizoaffective disorder presents with acute brendon after stopping medications on 09/03 (Depakote). Plan: Re-start and stabilize regime Olanzapine 10 mg HS When recompensated, discuss THOMAS with pt and family. Collateral contact Family Intervention Medical Management of sx. 09/08/23 Increase Depakote to 1000 mg bid Increase Olanzapine to 20 mg daily Continue Haldol Labs 09/09/23. 09/09/23 Continue current regime 09/10/23 Symptoms of UTI Urine culture, Bactrim DS, Pyridium 09/11/23 Increase in delusional, disinhibited sx today. Haldol 10 mg po x 1 prn On 09/12 increase Haldol to 10 mg tid 09/13/23 Continue tx. Informed Consent: further education needed Reason for continued inpatient stay Substantial Risk for: rapid decompensation Time Spent With Patient Time: Total time managing care of this patient today ____ minutes.
[2023-09-14] MEDS: OLANZapine ODT 10 MG TAB.RAPDIS 20 MG TRANSLINGU ×2 (00:47→20:52)
[2023-09-14] MEDS: HaloperidoL 5 MG TABLET 10 MG PO ×3 (00:48→14:28)
[2023-09-14] MEDS: LORazepam 1 MG TABLET PO (00:48)
[2023-09-14] MEDS: Divalproex Sodium 500 MG TABLET.DR 1000 MG PO ×3 (00:48→20:53)
[2023-09-14] MEDS: Sulfamethox/Trimeth 800/160 TABLET 1 TAB PO ×3 (00:48→20:53)
[2023-09-14 10:10] VITALS: BP 135/63; PULSE 107; RESP 18; TEMP 36.4; O2SAT 95
--- NOTE | 2023-09-14 16:07 | HO.PSYCHPN ---
Subjective Subjective Date of Service: 09/14/23 Reason For Visit: brendon,psychosis Subjective Notes: Conditional Voluntary Healthcare Proxy: No Guardianship: No Medical Problems Affecting Mental Status: No Interim History: Pt staying in the group room for destimulation. Today with some outbursts of affect. 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 Some anger, confrontation, raising of voice in our meeting. Overall cooperative and able to carry on a discussion. Resistant to ADL assistance Skin fold breakdown Attempting toileting schedule with the team. Medication Compliance: Yes Side effects from medications: No Attending Groups: No Review of Systems Acute medical concerns: No Medical Review of Systems: unchanged Review of Systems Review of Systems Yes Unobtainable due to mental status Mental Status Exam Mental Status Exam Patient Appearance: Appropriate Patient Orientation: Person, Place and Situation Level of Consciousness: Alert Patient Behavior: Talkative, Hyperactive, Suspicious, Hypersexual, Restless, Belligerent, Wandering, Verbal Threats, Anxious, Fatigued, Distractible, Confused, Good Eye Contact and Impulsive Mood Description: Labile and Expansive Affect Description: Labile Patient Cognition Impaired: No Ability to Follow Directions: Good Speech Pattern: Perseverating, Spontaneous Speech, Rambling, Cofabulation, Rapid, Excessive, Loud, Pressured and Includes Profanity Memory Description: Remote Impaired, Immediate Impaired, Episodic Impaired and Recent Impaired Hallucinations: None (denies) Delusions: Paranoid Ideation and Grandiose Perceptual Disturbances: Depersonalization and Derealization Thought Process: Racing, Illogical, Distracted and Confusion Thought Content: positive for Flight of Ideas, positive for Racing, positive for Perseveration, positive for Loose Associations, positive for Tangential, positive for Disorganized, positive for Suicidal Ideation (denies) and positive for Homicidal Ideation (denies) Depressive Symptoms: Insomnia (family reports 4 days without sleep), Increased Irritability, Difficulty Sleeping, Loss of Int. in Activity, Increased Fatigue, Thoughts of /Suicide (denies) and Low Self Esteem Abnormal Motor Activity Signs and Symptoms: Aggression, Agitation, Hyperactivity and Restlessness Judgement: Poor Diagnostics Vital Signs (24Hr): Vital Signs - 24 hr 09/13/23 16:25 09/14/23 10:10 Temperature 97.9 F 97.6 F Pulse Rate 97 107 H Respiratory Rate 16 18 Blood Pressure 119/56 L 135/63 Pulse Oximetry 95 95 Oxygen Delivery Method Room Air Room Air BMI result Body Mass Index 60.1 Labs 09/06/23 10:23 09/06/23 10:23 Medications Medications Current Medications Acetaminophen (Acetaminophen 325 Mg Tablet) 650 mg PO Q6H PRN PRN Reason: Headache/Pain Mild Scale (1-3) Last Admin: 09/07/23 16:09 Dose: 650 mg Al Hydroxide/Mg Hydroxide (Magnesium Hydrox/Alum Hydrox 30 Ml Oral.Susp) 30 ml PO Q6H PRN PRN Reason: Heartburn/Nausea Divalproex Sodium (Divalproex Sodium 500 Mg Tablet.Dr) 1,000 mg PO BID [facility] Last Admin: 09/14/23 09:42 Dose: 1,000 mg Haloperidol (Haloperidol 5 Mg Tablet) 10 mg PO TID [facility] Last Admin: 09/14/23 14:28 Dose: 10 mg Hydroxyzine HCl (Hydroxyzine Hcl 25 Mg Tablet) 25 mg PO Q6H PRN PRN Reason: Anxiety Lorazepam (Lorazepam 1 Mg Tablet) 1 mg PO TID PRN PRN Reason: agitation or anxiety Last Admin: 09/14/23 00:48 Dose: 1 mg Magnesium Hydroxide (Milk Of Magnesia 30 Ml Oral.Susp) 30 ml PO DAILY PRN PRN Reason: Constipation Nystatin (Nystatin Powder 15 Gm Bottle) 1 appl TOPICAL BID [facility]; Protocol Last Admin: 09/14/23 10:08 Dose: 1 appl Nystatin (Nystatin Cream 15 Gm Tube) 1 appl TOPICAL BID [facility]; Protocol Last Admin: 09/14/23 10:08 Dose: 1 appl Olanzapine (Olanzapine Odt 10 Mg Tab.Rapdis) 10 mg TRANSLINGU TID PRN PRN Reason: agitation Last Admin: 09/11/23 09:44 Dose: 10 mg Olanzapine (Olanzapine Odt 10 Mg Tab.Rapdis) 20 mg TRANSLINGU BEDTIME [facility] Last Admin: 09/14/23 00:47 Dose: 20 mg Trazodone HCl (Trazodone Hcl 50 Mg Tablet) 50 mg PO BEDTIME MRX1 PRN PRN Reason: Insomnia Trimethoprim/Sulfamethoxazole (Sulfamethox/Trimeth 800/160 Tablet) 1 tab PO Q12H [facility] Last Admin: 09/14/23 09:42 Dose: 1 tab Allergies Allergies Allergy/AdvReac Type Severity Reaction Status Date / Time kiwi [KIWI] Allergy Mild HIVES Verified 11/02/23 10:07 mold [MOLD EXTRACTS*] Allergy Mild HIVES Verified 07/07/23 10:07 Assessment & Plan Assessment & Plan (1) Bipolar disorder with psychotic features: Status: Acute Code(s): F31.9 - Bipolar disorder, unspecified (2) Schizoaffective disorder, bipolar type: Status: Acute Code(s): F25.0 - Schizoaffective disorder, bipolar type Plan 33 yo female with a history of bipolar disorder with psychosis/schizoaffective disorder presents with acute brendon after stopping medications on 09/03 (Depakote). Plan: Re-start and stabilize regime Olanzapine 10 mg HS When recompensated, discuss THOMAS with pt and family. Collateral contact Family Intervention Medical Management of sx. 09/08/23 Increase Depakote to 1000 mg bid Increase Olanzapine to 20 mg daily Continue Haldol Labs 09/09/23. 09/09/23 Continue current regime 09/10/23 Symptoms of UTI Urine culture, Bactrim DS, Pyridium 09/11/23 Increase in delusional, disinhibited sx today. Haldol 10 mg po x 1 prn On 09/12 increase Haldol to 10 mg tid 09/12/22 Continue tx. 09/13/23 Pt has had a reasonable trial of Haldol with Olanzapine and Valproate which has not seemed to be stabilizing. By history, Olanzapine 40 mg has been effective Plan: Discontinue Haldol Increase Olanzapine to 20 mg bid. Reason for continued inpatient stay Substantial Risk for: inability to function, rapid decompensation and med/psych decompensation Time Spent With Patient Time: Total time managing care of this patient today ____ minutes.
[2023-09-14 18:00] VITALS: BP 118/72; PULSE 86; TEMP 36.2
[2023-09-15 06:00] VITALS: BP 149/89; PULSE 93; RESP 18; TEMP 2.4; TEMP 36.4; O2SAT 96
[2023-09-15] MEDS: Divalproex Sodium 500 MG TABLET.DR 1000 MG PO ×2 (08:16→20:56)
[2023-09-15] MEDS: Sulfamethox/Trimeth 800/160 TABLET 1 TAB PO ×2 (08:16→20:56)
[2023-09-15] MEDS: OLANZapine ODT 10 MG TAB.RAPDIS 20 MG TRANSLINGU ×2 (08:17→20:55)
--- NOTE | 2023-09-15 10:53 | HO.PSYCHPN ---
Subjective Subjective Date of Service: 09/15/23 Reason For Visit: brendon,psychosis Subjective Notes: Conditional Voluntary Healthcare Proxy: No Guardianship: No Medical Problems Affecting Mental Status: No Interim History: Visited by mother who assisted with her shower. Pt in improved control today, smiling, interactive, with regulated train of process. States she is feeling improved today. Medication Compliance: Yes Side effects from medications: No Attending Groups: No Review of Systems Acute medical concerns: No Medical Review of Systems: unchanged Review of Systems Review of Systems Yes all other systems are reviewed and are negative (she denies sx today) Mental Status Exam Mental Status Exam Patient Appearance: Appropriate Patient Orientation: Person, Place and Situation Level of Consciousness: Alert Patient Behavior: Talkative, Wandering, Anxious, Fatigued, Distractible, Confused, Good Eye Contact and Impulsive Mood Description: Labile and Expansive Affect Description: Labile Patient Cognition Impaired: No Ability to Follow Directions: Good Speech Pattern: Spontaneous Speech Memory Description: Remote Impaired and Episodic Impaired Hallucinations: None (denies) Perceptual Disturbances: Derealization Thought Process: Distracted Thought Content: positive for Perseveration, positive for Loose Associations, positive for Tangential, positive for Disorganized, positive for Suicidal Ideation (denies) and positive for Homicidal Ideation (denies) Depressive Symptoms: Increased Fatigue, Thoughts of /Suicide (denies) and Low Self Esteem Judgement: Fair Diagnostics Vital Signs (24Hr): Vital Signs - 24 hr 09/14/23 18:00 Temperature 97.2 F Pulse Rate 86 Blood Pressure 118/72 BMI result Body Mass Index 60.1 Labs 09/06/23 10:23 09/06/23 10:23 Medications Medications Current Medications Acetaminophen (Acetaminophen 325 Mg Tablet) 650 mg PO Q6H PRN PRN Reason: Headache/Pain Mild Scale (1-3) Last Admin: 09/07/23 16:09 Dose: 650 mg Al Hydroxide/Mg Hydroxide (Magnesium Hydrox/Alum Hydrox 30 Ml Oral.Susp) 30 ml PO Q6H PRN PRN Reason: Heartburn/Nausea Divalproex Sodium (Divalproex Sodium 500 Mg Tablet.Dr) 1,000 mg PO BID [facility] Last Admin: 09/15/23 08:16 Dose: 1,000 mg Hydroxyzine HCl (Hydroxyzine Hcl 25 Mg Tablet) 25 mg PO Q6H PRN PRN Reason: Anxiety Magnesium Hydroxide (Milk Of Magnesia 30 Ml Oral.Susp) 30 ml PO DAILY PRN PRN Reason: Constipation Nystatin (Nystatin Powder 15 Gm Bottle) 1 appl TOPICAL BID [facility]; Protocol Last Admin: 09/14/23 23:47 Dose: Not Given Nystatin (Nystatin Cream 15 Gm Tube) 1 appl TOPICAL BID [facility]; Protocol Last Admin: 09/14/23 21:14 Dose: 1 appl Olanzapine (Olanzapine Odt 10 Mg Tab.Rapdis) 10 mg TRANSLINGU TID PRN PRN Reason: agitation Last Admin: 09/11/23 09:44 Dose: 10 mg Olanzapine (Olanzapine Odt 10 Mg Tab.Rapdis) 20 mg TRANSLINGU BID [facility] Last Admin: 09/15/23 08:17 Dose: 20 mg Trazodone HCl (Trazodone Hcl 50 Mg Tablet) 50 mg PO BEDTIME MRX1 PRN PRN Reason: Insomnia Trimethoprim/Sulfamethoxazole (Sulfamethox/Trimeth 800/160 Tablet) 1 tab PO Q12H [facility] Last Admin: 09/15/23 08:16 Dose: 1 tab Allergies Allergies Allergy/AdvReac Type Severity Reaction Status Date / Time kiwi [KIWI] Allergy Mild HIVES Verified 07/07/23 10:07 mold [MOLD EXTRACTS*] Allergy Mild HIVES Verified 07/07/23 10:07 Assessment & Plan Assessment & Plan (1) Bipolar disorder with psychotic features: Status: Acute Code(s): F31.9 - Bipolar disorder, unspecified (2) Schizoaffective disorder, bipolar type: Status: Acute Code(s): F25.0 - Schizoaffective disorder, bipolar type Plan 33 yo female with a history of bipolar disorder with psychosis/schizoaffective disorder presents with acute brendon after stopping medications on 09/03 (Depakote). Plan: Re-start and stabilize regime Olanzapine 10 mg HS When recompensated, discuss THOMAS with pt and family. Collateral contact Family Intervention Medical Management of sx. 09/08/23 Increase Depakote to 1000 mg bid Increase Olanzapine to 20 mg daily Continue Haldol Labs 09/09/23. 09/09/23 Continue current regime 09/10/23 Symptoms of UTI Urine culture, Bactrim DS, Pyridium 09/11/23 Increase in delusional, disinhibited sx today. Haldol 10 mg po x 1 prn On 09/12 increase Haldol to 10 mg tid 09/12/22 Continue tx. 09/13/23 Pt has had a reasonable trial of Haldol with Olanzapine and Valproate which has not seemed to be stabilizing. By history, Olanzapine 40 mg has been effective Plan: Discontinue Haldol Increase Olanzapine to 20 mg bid. 09/15/23 Continue current regime Informed Consent: does not understand and further education needed Reason for continued inpatient stay Substantial Risk for: rapid decompensation Time Spent With Patient Time: Total time managing care of this patient today ____ minutes.
[2023-09-15 14:02] LABS: Appearance Urine Clear; Color Urine Yellow; Glucose Urine UA Negative (Negative); Leukocyte Esterase Urine Negative (Negative); Nitrite Urine Negative (Negative); Specific Gravity - Urine <= 1.005 (1.005-1.025); Urine Blood Negative (Negative); Urine Ketones Negative (Negative); Urine Protein Negative (Neg-Trace)
[2023-09-15 18:00] VITALS: BP 138/90; PULSE 90; RESP 20; TEMP 36.4; O2SAT 98
[2023-09-16] MEDS: Divalproex Sodium 500 MG TABLET.DR 1000 MG PO ×2 (08:36→20:21)
[2023-09-16] MEDS: Sulfamethox/Trimeth 800/160 TABLET 1 TAB PO ×2 (08:36→20:20)
[2023-09-16] MEDS: OLANZapine ODT 10 MG TAB.RAPDIS 20 MG TRANSLINGU ×2 (08:36→20:21)
[2023-09-16 08:38] VITALS: BP 141/87; PULSE 95; RESP 14; TEMP 36.7; O2SAT 93
--- NOTE | 2023-09-16 10:13 | P.PNPSI_ITS ---
Subjective Subjective Date of Service: 09/16/23 Reason For Visit: brendon,psychosis Interim History: Briefly?Met?with?patient;?discussed?with?team Patient?difficult?with?which?to?engage?on?meaningful?level. Patient?showered?with?2?person?assist;?otherwise?no?change?in?presentation Mental Status Exam Mental Status Exam Patient Appearance: Appropriate Patient Orientation: Person, Place and Situation Level of Consciousness: Alert Patient Behavior: Talkative, Wandering, Anxious, Fatigued, Distractible, Confused, Good Eye Contact and Impulsive Mood Description: Labile and Expansive Affect Description: Labile Patient Cognition Impaired: No Ability to Follow Directions: Good Speech Pattern: Spontaneous Speech Memory Description: Remote Impaired and Episodic Impaired Hallucinations: None (denies) Perceptual Disturbances: Derealization Thought Process: Distracted Thought Content: positive for Perseveration, positive for Loose Associations, positive for Tangential, positive for Disorganized, positive for Suicidal Ideation (denies) and positive for Homicidal Ideation (denies) Depressive Symptoms: Increased Fatigue, Thoughts of /Suicide (denies) and Low Self Esteem Judgement: Fair Diagnostics Vital Signs (24Hr): Vital Signs - 24 hr 09/15/23 18:00 09/16/23 08:38 Temperature 97.6 F 98.0 F Pulse Rate 90 95 Respiratory Rate 20 14 Blood Pressure 138/90 H 141/87 H Pulse Oximetry 98 93 Oxygen Delivery Method Room Air Room Air BMI result Body Mass Index 60.1 Labs 09/06/23 10:23 09/06/23 10:23 Labs: Laboratory Results - last 48 hr 09/15/23 13:00 Urine Color Yellow Urine Appearance Clear Urine pH 8.0 Ur Specific [place] <= 1.005 Urine Protein Negative Urine Glucose (UA) Negative Urine Ketones Negative Urine Blood Negative Urine Nitrite Negative Ur Leukocyte Esterase Negative Medications Medications Current Medications Acetaminophen (Acetaminophen 325 Mg Tablet) 650 mg PO Q6H PRN PRN Reason: Headache/Pain Mild Scale (1-3) Last Admin: 09/07/23 16:09 Dose: 650 mg Al Hydroxide/Mg Hydroxide (Magnesium Hydrox/Alum Hydrox 30 Ml Oral.Susp) 30 ml PO Q6H PRN PRN Reason: Heartburn/Nausea Divalproex Sodium (Divalproex Sodium 500 Mg Tablet.) 1,000 mg PO BID [facility] Last Admin: 09/16/23 08:36 Dose: 1,000 mg Hydroxyzine HCl (Hydroxyzine Hcl 25 Mg Tablet) 25 mg PO Q6H PRN PRN Reason: Anxiety Magnesium Hydroxide (Milk Of Magnesia 30 Ml Oral.Susp) 30 ml PO DAILY PRN PRN Reason: Constipation Nystatin (Nystatin Powder 15 Gm Bottle) 1 appl TOPICAL BID [facility]; Protocol Last Admin: 09/16/23 08:41 Dose: 1 appl Nystatin (Nystatin Cream 15 Gm Tube) 1 appl TOPICAL BID [facility]; Protocol Last Admin: 09/16/23 08:41 Dose: 1 appl Olanzapine (Olanzapine Odt 10 Mg Tab.Rapdis) 10 mg TRANSLINGU TID PRN PRN Reason: agitation Last Admin: 09/11/23 09:44 Dose: 10 mg Olanzapine (Olanzapine Odt 10 Mg Tab.Rapdis) 20 mg TRANSLINGU BID [facility] Last Admin: 09/16/23 08:36 Dose: 20 mg Trazodone HCl (Trazodone Hcl 50 Mg Tablet) 50 mg PO BEDTIME MRX1 PRN PRN Reason: Insomnia Trimethoprim/Sulfamethoxazole (Sulfamethox/Trimeth 800/160 Tablet) 1 tab PO Q12H [facility] Last Admin: 09/16/23 08:36 Dose: 1 tab Allergies Allergies Allergy/AdvReac Type Severity Reaction Status Date / Time kiwi [KIWI] Allergy Mild HIVES Verified 07/07/23 10:07 mold [MOLD EXTRACTS*] Allergy Mild HIVES Verified 07/07/23 10:07 Assessment & Plan Assessment & Plan (1) Bipolar disorder with psychotic features: Status: Acute Code(s): F31.9 - Bipolar disorder, unspecified (2) Schizoaffective disorder, bipolar type: Status: Acute Code(s): F25.0 - Schizoaffective disorder, bipolar type Plan 33 yo female with a history of bipolar disorder with psychosis/schizoaffective disorder presents with acute brendon after stopping medications on 09/03 (Depakote). Plan: Re-start and stabilize regime Olanzapine 10 mg HS When recompensated, discuss THOMAS with pt and family. Collateral contact Family Intervention Medical Management of sx. 09/08/23 Increase Depakote to 1000 mg bid Increase Olanzapine to 20 mg daily Continue Haldol Labs 09/09/23. 09/09/23 Continue current regime 09/10/23 Symptoms of UTI Urine culture, Bactrim DS, Pyridium 09/11/23 Increase in delusional, disinhibited sx today. Haldol 10 mg po x 1 prn On 09/12 increase Haldol to 10 mg tid 09/12/22 Continue tx. 09/13/23 Pt has had a reasonable trial of Haldol with Olanzapine and Valproate which has not seemed to be stabilizing. By history, Olanzapine 40 mg has been effective Plan: Discontinue Haldol Increase Olanzapine to 20 mg bid. 09/15/23 Continue current regime 09/16/2023? Continue?current?regimen Reason for continued inpatient stay Substantial Risk for: inability to function Time Spent With Patient Time: Total time managing care of this patient today ____ minutes.
[2023-09-16 20:45] VITALS: BP 140/88; PULSE 88; RESP 16; TEMP 36.6; O2SAT 96
[2023-09-17 08:00] VITALS: BP 168/95; PULSE 81; RESP 18; TEMP 36.4; O2SAT 100
[2023-09-17] MEDS: OLANZapine ODT 10 MG TAB.RAPDIS 20 MG TRANSLINGU ×2 (08:35→21:49)
[2023-09-17] MEDS: Sulfamethox/Trimeth 800/160 TABLET 1 TAB PO ×2 (08:36→21:49)
[2023-09-17] MEDS: Divalproex Sodium 500 MG TABLET.DR 1000 MG PO ×2 (08:36→21:49)
--- NOTE | 2023-09-17 10:25 | HO.PSYCHPN ---
Subjective Subjective Date of Service: 09/17/23 Reason For Visit: brendon,psychosis Subjective Notes: Conditional Voluntary Interim History: Patient was seen and discussed in rounds today. Records and plans were reviewed. She continues to be hypomanic, labile but pleasant and interactive. There is some improvement reported. No complaints or side effects. Medication and meal compliant. No changes were made today Review of Systems Review of Systems Yes all other systems are reviewed and are negative Mental Status Exam Mental Status Exam Patient Appearance: Appropriate Patient Orientation: Person, Place and Situation Level of Consciousness: Alert Patient Behavior: Talkative, Wandering, Anxious, Fatigued, Distractible, Confused, Good Eye Contact and Impulsive Mood Description: Labile and Expansive Affect Description: Labile Patient Cognition Impaired: No Ability to Follow Directions: Good Speech Pattern: Spontaneous Speech Memory Description: Remote Impaired and Episodic Impaired Hallucinations: None (denies) Perceptual Disturbances: Derealization Thought Process: Distracted Thought Content: positive for Perseveration, positive for Loose Associations, positive for Tangential, positive for Disorganized, positive for Suicidal Ideation (denies) and positive for Homicidal Ideation (denies) Depressive Symptoms: Increased Fatigue, Thoughts of /Suicide (denies) and Low Self Esteem Judgement: Fair Diagnostics Vital Signs (24Hr): Vital Signs - 24 hr 09/16/23 20:45 09/17/23 08:00 Temperature 97.8 F 97.5 F Pulse Rate 88 81 Respiratory Rate 16 18 Blood Pressure 140/88 H 168/95 H Pulse Oximetry 96 100 Oxygen Delivery Method Room Air BMI result Body Mass Index 60.1 Labs 09/06/23 10:23 09/06/23 10:23 Labs: Laboratory Results - last 48 hr 09/15/23 13:00 Urine Color Yellow Urine Appearance Clear Urine pH 8.0 Ur Specific [place] <= 1.005 Urine Protein Negative Urine Glucose (UA) Negative Urine Ketones Negative Urine Blood Negative Urine Nitrite Negative Ur Leukocyte Esterase Negative Medications Medications Current Medications Acetaminophen (Acetaminophen 325 Mg Tablet) 650 mg PO Q6H PRN PRN Reason: Headache/Pain Mild Scale (1-3) Last Admin: 09/07/23 16:09 Dose: 650 mg Al Hydroxide/Mg Hydroxide (Magnesium Hydrox/Alum Hydrox 30 Ml Oral.Susp) 30 ml PO Q6H PRN PRN Reason: Heartburn/Nausea Divalproex Sodium (Divalproex Sodium 500 Mg Tablet.) 1,000 mg PO BID [facility] Last Admin: 09/17/23 08:36 Dose: 1,000 mg Hydroxyzine HCl (Hydroxyzine Hcl 25 Mg Tablet) 25 mg PO Q6H PRN PRN Reason: Anxiety Magnesium Hydroxide (Milk Of Magnesia 30 Ml Oral.Susp) 30 ml PO DAILY PRN PRN Reason: Constipation Nystatin (Nystatin Powder 15 Gm Bottle) 1 appl TOPICAL BID [facility]; Protocol Last Admin: 09/16/23 20:20 Dose: 1 appl Nystatin (Nystatin Cream 15 Gm Tube) 1 appl TOPICAL BID [facility]; Protocol Last Admin: 09/16/23 20:20 Dose: 1 appl Olanzapine (Olanzapine Odt 10 Mg Tab.Rapdis) 10 mg TRANSLINGU TID PRN PRN Reason: agitation Last Admin: 09/11/23 09:44 Dose: 10 mg Olanzapine (Olanzapine Odt 10 Mg Tab.Rapdis) 20 mg TRANSLINGU BID [facility] Last Admin: 09/17/23 08:35 Dose: 20 mg Trazodone HCl (Trazodone Hcl 50 Mg Tablet) 50 mg PO BEDTIME MRX1 PRN PRN Reason: Insomnia Trimethoprim/Sulfamethoxazole (Sulfamethox/Trimeth 800/160 Tablet) 1 tab PO Q12H [facility] Last Admin: 09/17/23 08:36 Dose: 1 tab Allergies Allergies Allergy/AdvReac Type Severity Reaction Status Date / Time kiwi [KIWI] Allergy Mild HIVES Verified 07/07/23 10:07 mold [MOLD EXTRACTS*] Allergy Mild HIVES Verified 07/07/23 10:07 Assessment & Plan Assessment & Plan (1) Bipolar disorder with psychotic features: Status: Acute Code(s): F31.9 - Bipolar disorder, unspecified (2) Schizoaffective disorder, bipolar type: Status: Acute Code(s): F25.0 - Schizoaffective disorder, bipolar type Plan 33 yo female with a history of bipolar disorder with psychosis/schizoaffective disorder presents with acute brendon after stopping medications on 09/03 (Depakote). Plan: Re-start and stabilize regime Olanzapine 10 mg HS When recompensated, discuss THOMAS with pt and family. Collateral contact Family Intervention Medical Management of sx. 09/08/23 Increase Depakote to 1000 mg bid Increase Olanzapine to 20 mg daily Continue Haldol Labs 09/09/23. 09/09/23 Continue current regime 09/10/23 Symptoms of UTI Urine culture, Bactrim DS, Pyridium 09/11/23 Increase in delusional, disinhibited sx today. Haldol 10 mg po x 1 prn On 09/12 increase Haldol to 10 mg tid 09/12/22 Continue tx. 09/13/23 Pt has had a reasonable trial of Haldol with Olanzapine and Valproate which has not seemed to be stabilizing. By history, Olanzapine 40 mg has been effective Plan: Discontinue Haldol Increase Olanzapine to 20 mg bid. 09/15/23 Continue current regime 09/17/23: Continue current regimen and plans Reason for continued inpatient stay Substantial Risk for: med/psych decompensation Time Spent With Patient Time: Total time managing care of this patient today ____ minutes.
[2023-09-17 18:00] VITALS: BP 139/89; PULSE 116; RESP 16; TEMP 36.9; O2SAT 98
[2023-09-18 08:00] VITALS: BP 135/78; PULSE 89; RESP 18; TEMP 37.1; O2SAT 95
--- NOTE | 2023-09-18 10:15 | HO.PSYCHPN ---
Subjective Subjective Date of Service: 09/18/23 Reason For Visit: brendon,psychosis Subjective Notes: Conditional Voluntary Interim History: Patient was seen and discussed in rounds today. Records and plans were reviewed. She continues to be guarded, delusional but visible. She states that she does not feel safe here and wants to see the president. When questions in what way she stated that ?I am ?. No other complaints or side effects. No changes were made today Mental Status Exam Mental Status Exam Narrative: In today's visit she is alert, pleasant and interactive. Normal speech. Moderate eye contact. No acute signs of psychosis. Delusions present. No SI. Cognitively is disorganized and could not be formally tested. Judgment is impaired Diagnostics Vital Signs (24Hr): Vital Signs - 24 hr 09/17/23 18:00 09/18/23 08:00 Temperature 98.4 F 98.7 F Pulse Rate 116 H 89 Respiratory Rate 16 18 Blood Pressure 139/89 135/78 Pulse Oximetry 98 95 Oxygen Delivery Method Room Air Room Air BMI result Body Mass Index 60.1 Labs 09/06/23 10:23 09/06/23 10:23 Medications Medications Current Medications Acetaminophen (Acetaminophen 325 Mg Tablet) 650 mg PO Q6H PRN PRN Reason: Headache/Pain Mild Scale (1-3) Last Admin: 09/07/23 16:09 Dose: 650 mg Al Hydroxide/Mg Hydroxide (Magnesium Hydrox/Alum Hydrox 30 Ml Oral.Susp) 30 ml PO Q6H PRN PRN Reason: Heartburn/Nausea Divalproex Sodium (Divalproex Sodium 500 Mg Tablet.) 1,000 mg PO BID INOCENCIO Last Admin: 09/17/23 21:49 Dose: 1,000 mg Hydroxyzine HCl (Hydroxyzine Hcl 25 Mg Tablet) 25 mg PO Q6H PRN PRN Reason: Anxiety Magnesium Hydroxide (Milk Of Magnesia 30 Ml Oral.Susp) 30 ml PO DAILY PRN PRN Reason: Constipation Nystatin (Nystatin Powder 15 Gm Bottle) 1 appl TOPICAL BID INOCENCIO; Protocol Last Admin: 09/17/23 22:06 Dose: 1 appl Nystatin (Nystatin Cream 15 Gm Tube) 1 appl TOPICAL BID INOCENCIO; Protocol Last Admin: 09/17/23 22:06 Dose: 1 appl Olanzapine (Olanzapine Odt 10 Mg Tab.Rapdis) 10 mg TRANSLINGU TID PRN PRN Reason: agitation Last Admin: 09/11/23 09:44 Dose: 10 mg Olanzapine (Olanzapine Odt 10 Mg Tab.Rapdis) 20 mg TRANSLINGU BID [facility] [place] Last Admin: 09/17/23 21:49 Dose: 20 mg Trazodone HCl (Trazodone Hcl 50 Mg Tablet) 50 mg PO BEDTIME MRX1 PRN PRN Reason: Insomnia Trimethoprim/Sulfamethoxazole (Sulfamethox/Trimeth 800/160 Tablet) 1 tab PO Q12H [facility] [place] Last Admin: 09/17/23 21:49 Dose: 1 tab Allergies Allergies Allergy/AdvReac Type Severity Reaction Status Date / Time kiwi [KIWI] Allergy Mild HIVES Verified 07/07/23 10:07 mold [MOLD EXTRACTS*] Allergy Mild HIVES Verified 07/07/23 10:07 Assessment & Plan Assessment & Plan (1) Bipolar disorder with psychotic features: Status: Acute Code(s): F31.9 - Bipolar disorder, unspecified (2) Schizoaffective disorder, bipolar type: Status: Acute Code(s): F25.0 - Schizoaffective disorder, bipolar type Plan 33 yo female with a history of bipolar disorder with psychosis/schizoaffective disorder presents with acute brendon after stopping medications on 09/03 (Depakote). Plan: Re-start and stabilize regime Olanzapine 10 mg HS When recompensated, discuss THOMAS with pt and family. Collateral contact Family Intervention Medical Management of sx. 09/08/23 Increase Depakote to 1000 mg bid Increase Olanzapine to 20 mg daily Continue Haldol Labs 09/09/23. 09/09/23 Continue current regime 09/10/23 Symptoms of UTI Urine culture, Bactrim DS, Pyridium 09/11/23 Increase in delusional, disinhibited sx today. Haldol 10 mg po x 1 prn On 09/12 increase Haldol to 10 mg tid 09/12/22 Continue tx. 09/13/23 Pt has had a reasonable trial of Haldol with Olanzapine and Valproate which has not seemed to be stabilizing. By history, Olanzapine 40 mg has been effective Plan: Discontinue Haldol Increase Olanzapine to 20 mg bid. 09/15/23 Continue current regime 09/16/2023? Continue?current?regimen 09/18/2023: Continue current regimen and plans Reason for continued inpatient stay Substantial Risk for: inability to function and med/psych decompensation Time Spent With Patient Time: Total time managing care of this patient today ____ minutes.
[2023-09-18] MEDS: Divalproex Sodium 500 MG TABLET.DR 1000 MG PO ×2 (10:30→20:13)
[2023-09-18] MEDS: Sulfamethox/Trimeth 800/160 TABLET 1 TAB PO ×2 (10:30→20:13)
[2023-09-18] MEDS: OLANZapine ODT 10 MG TAB.RAPDIS 20 MG TRANSLINGU ×2 (10:30→20:12)
[2023-09-18 18:00] VITALS: BP 143/82; PULSE 99; RESP 18; TEMP 36.4; O2SAT 96
[2023-09-19 08:11] VITALS: BP 167/81; PULSE 89; RESP 16; TEMP 36.4; O2SAT 99
[2023-09-19] MEDS: OLANZapine ODT 10 MG TAB.RAPDIS 20 MG TRANSLINGU ×2 (09:34→22:20)
[2023-09-19] MEDS: Sulfamethox/Trimeth 800/160 TABLET 1 TAB PO ×2 (09:34→22:19)
[2023-09-19] MEDS: Divalproex Sodium 500 MG TABLET.DR 1000 MG PO ×2 (09:34→22:19)
--- NOTE | 2023-09-19 12:09 | P.PNPSI_ITS ---
Subjective Subjective Date of Service: 09/19/23 Reason For Visit: brendon,psychosis Subjective Notes: Conditional Voluntary Healthcare Proxy: No Guardianship: No Medical Problems Affecting Mental Status: No Interim History: Pt seen, discussed with the team. Intermittent agitation, lability, sexualized content, poor boundaries still present yet decreased. Spent some time napping today. Overall states she feels improved and presents as improved. Asking about her father, who had surgery on his foot recently and is recovering well. Medication Compliance: Yes Side effects from medications: No Attending Groups: No Review of Systems Acute medical concerns: No Medical Review of Systems: unchanged Review of Systems Review of Systems skin fold areas of breakdown team report are healing well. Mental Status Exam Mental Status Exam Patient Appearance: Appropriate Patient Orientation: Person, Place and Situation Level of Consciousness: Alert Patient Behavior: Talkative and Good Eye Contact Mood Description: Labile Affect Description: Labile Patient Cognition Impaired: No Ability to Follow Directions: Good Speech Pattern: Spontaneous Speech Memory Description: Remote Impaired Hallucinations: None Delusions: Grandiose Thought Process: Distracted Thought Content: positive for Circumstantial and positive for Suicidal Ideation (denies) Depressive Symptoms: Increased Anxiety and Low Self Esteem Judgement: Fair Diagnostics Vital Signs (24Hr): Vital Signs - 24 hr 09/18/23 18:00 09/19/23 08:11 Temperature 97.5 F 97.6 F Pulse Rate 99 89 Respiratory Rate 18 16 Blood Pressure 143/82 H 167/81 H Pulse Oximetry 96 99 Oxygen Delivery Method Room Air Room Air BMI result Body Mass Index 60.1 Labs 09/06/23 10:23 09/06/23 10:23 Medications Medications Current Medications Acetaminophen (Acetaminophen 325 Mg Tablet) 650 mg PO Q6H PRN PRN Reason: Headache/Pain Mild Scale (1-3) Last Admin: 09/07/23 16:09 Dose: 650 mg Al Hydroxide/Mg Hydroxide (Magnesium Hydrox/Alum Hydrox 30 Ml Oral.Susp) 30 ml PO Q6H PRN PRN Reason: Heartburn/Nausea Divalproex Sodium (Divalproex Sodium 500 Mg Tablet.Dr) 1,000 mg PO BID INOCENCIO Last Admin: 09/19/23 09:34 Dose: 1,000 mg Hydroxyzine HCl (Hydroxyzine Hcl 25 Mg Tablet) 25 mg PO Q6H PRN PRN Reason: Anxiety Magnesium Hydroxide (Milk Of Magnesia 30 Ml Oral.Susp) 30 ml PO DAILY PRN PRN Reason: Constipation Nystatin (Nystatin Powder 15 Gm Bottle) 1 appl TOPICAL BID INOCENCIO; Protocol Last Admin: 09/19/23 10:11 Dose: Not Given Nystatin (Nystatin Cream 15 Gm Tube) 1 appl TOPICAL BID INOCENCIO; Protocol Last Admin: 09/19/23 10:11 Dose: Not Given Olanzapine (Olanzapine Odt 10 Mg Tab.Rapdis) 10 mg TRANSLINGU TID PRN PRN Reason: agitation Last Admin: 09/11/23 09:44 Dose: 10 mg Olanzapine (Olanzapine Odt 10 Mg Tab.Rapdis) 20 mg TRANSLINGU BID INOCENCIO Last Admin: 09/19/23 09:34 Dose: 20 mg Trazodone HCl (Trazodone Hcl 50 Mg Tablet) 50 mg PO BEDTIME MRX1 PRN PRN Reason: Insomnia Trimethoprim/Sulfamethoxazole (Sulfamethox/Trimeth 800/160 Tablet) 1 tab PO Q12H [facility] Last Admin: 09/19/23 09:34 Dose: 1 tab Allergies Allergies Allergy/AdvReac Type Severity Reaction Status Date / Time kiwi [KIWI] Allergy Mild HIVES Verified 07/07/23 10:07 mold [MOLD EXTRACTS*] Allergy Mild HIVES Verified 07/07/23 10:07 Assessment & Plan Assessment & Plan (1) Bipolar disorder with psychotic features: Status: Acute Code(s): F31.9 - Bipolar disorder, unspecified (2) Schizoaffective disorder, bipolar type: Status: Acute Code(s): F25.0 - Schizoaffective disorder, bipolar type Plan 33 yo female with a history of bipolar disorder with psychosis/schizoaffective disorder presents with acute brendon after stopping medications on 09/03 (Depakote). Plan: Re-start and stabilize regime Olanzapine 10 mg HS When recompensated, discuss THOMAS with pt and family. Collateral contact Family Intervention Medical Management of sx. 09/08/23 Increase Depakote to 1000 mg bid Increase Olanzapine to 20 mg daily Continue Haldol Labs 09/09/23. 09/09/23 Continue current regime 09/10/23 Symptoms of UTI Urine culture, Bactrim DS, Pyridium 09/11/23 Increase in delusional, disinhibited sx today. Haldol 10 mg po x 1 prn On 09/12 increase Haldol to 10 mg tid 09/12/22 Continue tx. 09/13/23 Pt has had a reasonable trial of Haldol with Olanzapine and Valproate which has not seemed to be stabilizing. By history, Olanzapine 40 mg has been effective Plan: Discontinue Haldol Increase Olanzapine to 20 mg bid. 09/15/23 Continue current regime 09/16/2023? Continue?current?regimen 09/18/2023: Continue current regimen and plans 09/19/22: Continue current regime and plan. Patient educated on: therapeutic strategies Informed Consent: further education needed Reason for continued inpatient stay Substantial Risk for: rapid decompensation Time Spent With Patient Time: Total time managing care of this patient today ____ minutes.
[2023-09-19 19:30] VITALS: BP 138/63; PULSE 102; TEMP 36.4; O2SAT 95
[2023-09-20 08:59] VITALS: BP 144/99; PULSE 90; RESP 16; TEMP 36.8; O2SAT 98
[2023-09-20] MEDS: Divalproex Sodium 500 MG TABLET.DR 1000 MG PO ×2 (11:46→21:29)
[2023-09-20] MEDS: OLANZapine ODT 10 MG TAB.RAPDIS 20 MG TRANSLINGU ×2 (11:47→21:29)
[2023-09-20] MEDS: Sulfamethox/Trimeth 800/160 TABLET 1 TAB PO (11:47)
[2023-09-20 18:00] VITALS: BP 109/55; PULSE 88; RESP 18; TEMP 36.7; O2SAT 98
--- NOTE | 2023-09-20 19:54 | HO.PSYCHPN ---
Subjective Subjective Date of Service: 09/20/23 Reason For Visit: brendon,psychosis Subjective Notes: Conditional Voluntary Healthcare Proxy: No Guardianship: No Medical Problems Affecting Mental Status: No Interim History: Pt seen, reviewed with team. Concern about her father expressed. Mild lability, some inappropriate content, responded to support and redirection. Delusional content still present, I am , will I deliver here? Overall, improving Multiple orders for Valproate sent, pt still with no level as yet. Discussed with lab the importance of this level. Medication Compliance: Yes Side effects from medications: No Attending Groups: No Review of Systems Acute medical concerns: No Medical Review of Systems: unchanged Review of Systems Review of Systems skin fold areas of breakdown team report are healing but continue with yeast presence. Pt to shower on 09/22 and have further skin eval. Diagnostics Vital Signs (24Hr): Vital Signs - 24 hr 09/20/23 08:59 Temperature 98.3 F Pulse Rate 90 Respiratory Rate 16 Blood Pressure 144/99 H Pulse Oximetry 98 Oxygen Delivery Method Room Air BMI result Body Mass Index 60.1 Labs 09/06/23 10:23 09/06/23 10:23 Medications Medications Current Medications Acetaminophen (Acetaminophen 325 Mg Tablet) 650 mg PO Q6H PRN PRN Reason: Headache/Pain Mild Scale (1-3) Last Admin: 09/07/23 16:09 Dose: 650 mg Al Hydroxide/Mg Hydroxide (Magnesium Hydrox/Alum Hydrox 30 Ml Oral.Susp) 30 ml PO Q6H PRN PRN Reason: Heartburn/Nausea Divalproex Sodium (Divalproex Sodium 500 Mg Tablet.) 1,000 mg PO BID INOCENCIO Last Admin: 09/20/23 11:46 Dose: 1,000 mg Hydroxyzine HCl (Hydroxyzine Hcl 25 Mg Tablet) 25 mg PO Q6H PRN PRN Reason: Anxiety Magnesium Hydroxide (Milk Of Magnesia 30 Ml Oral.Susp) 30 ml PO DAILY PRN PRN Reason: Constipation Nystatin (Nystatin Powder 15 Gm Bottle) 1 appl TOPICAL BID INOCENCIO; Protocol Last Admin: 09/20/23 13:33 Dose: Not Given Nystatin (Nystatin Cream 15 Gm Tube) 1 appl TOPICAL BID INOCENCIO; Protocol Last Admin: 09/20/23 13:33 Dose: Not Given Olanzapine (Olanzapine Odt 10 Mg Tab.Rapdis) 10 mg TRANSLINGU TID PRN PRN Reason: agitation Last Admin: 09/11/23 09:44 Dose: 10 mg Olanzapine (Olanzapine Odt 10 Mg Tab.Rapdis) 20 mg TRANSLINGU BID INOCENCIO Last Admin: 09/20/23 11:47 Dose: 20 mg Trazodone HCl (Trazodone Hcl 50 Mg Tablet) 50 mg PO BEDTIME MRX1 PRN PRN Reason: Insomnia Allergies Allergies Allergy/AdvReac Type Severity Reaction Status Date / Time kiwi [KIWI] Allergy Mild HIVES Verified 07/07/23 10:07 mold [MOLD EXTRACTS*] Allergy Mild HIVES Verified 07/07/23 10:07 Assessment & Plan Assessment & Plan (1) Bipolar disorder with psychotic features: Status: Acute Code(s): F31.9 - Bipolar disorder, unspecified (2) Schizoaffective disorder, bipolar type: Status: Acute Code(s): F25.0 - Schizoaffective disorder, bipolar type Plan 33 yo female with a history of bipolar disorder with psychosis/schizoaffective disorder presents with acute brendon after stopping medications on 09/03 (Depakote). Plan: Re-start and stabilize regime Olanzapine 10 mg HS When recompensated, discuss THOMAS with pt and family. Collateral contact Family Intervention Medical Management of sx. 09/08/23 Increase Depakote to 1000 mg bid Increase Olanzapine to 20 mg daily Continue Haldol Labs 09/09/23. 09/09/23 Continue current regime 09/10/23 Symptoms of UTI Urine culture, Bactrim DS, Pyridium 09/11/23 Increase in delusional, disinhibited sx today. Haldol 10 mg po x 1 prn On 09/12 increase Haldol to 10 mg tid 09/12/22 Continue tx. 09/13/23 Pt has had a reasonable trial of Haldol with Olanzapine and Valproate which has not seemed to be stabilizing. By history, Olanzapine 40 mg has been effective Plan: Discontinue Haldol Increase Olanzapine to 20 mg bid. 09/15/23 Continue current regime 09/16/2023? Continue?current?regimen 09/18/2023: Continue current regimen and plans 09/19/22: Continue current regime and plan. 09/20/23: Continue tx. Patient educated on: therapeutic strategies Informed Consent: further education needed Reason for continued inpatient stay Substantial Risk for: rapid decompensation Time Spent With Patient Time: Total time managing care of this patient today ____ minutes.
[2023-09-21] MEDS: Divalproex Sodium 500 MG TABLET.DR 1000 MG PO ×2 (09:29→20:32)
[2023-09-21] MEDS: OLANZapine ODT 10 MG TAB.RAPDIS 20 MG TRANSLINGU ×2 (09:29→20:32)
--- NOTE | 2023-09-21 13:01 | HO.PSYCHPN ---
Subjective Subjective Date of Service: 09/21/23 Reason For Visit: brendon,psychosis Subjective Notes: Conditional Voluntary Healthcare Proxy: No Guardianship: No Medical Problems Affecting Mental Status: No Interim History: Showered today with team assist. Team report yeast infection bilateral breasts present. Panus area with breakdown, pain in umbilicus area reported. Between her legs bilaterally with open areas and malodorous. Will request a wound consult. Pt is in agreement. She reports current infection is due to and preparing for labor. Visited by family this afternoon. Pleased that she has had a shower and states she is feeling improved after this intervention. Medication Compliance: Yes Side effects from medications: No Attending Groups: No Review of Systems Acute medical concerns: No Medical Review of Systems: unchanged Review of Systems Review of Systems skin fold areas of breakdown-breast, panus, between legs. Wound consult will be requested. Mental Status Exam Mental Status Exam Patient Appearance: Appropriate Patient Orientation: Person, Place and Situation Level of Consciousness: Alert Patient Behavior: Talkative and Good Eye Contact Mood Description: Labile Affect Description: Labile Patient Cognition Impaired: No Ability to Follow Directions: Good Speech Pattern: Spontaneous Speech Memory Description: Remote Impaired Hallucinations: None Delusions: Grandiose and Present Thought Process: Distracted Thought Content: positive for Circumstantial and positive for Suicidal Ideation (denies) Depressive Symptoms: Increased Anxiety and Low Self Esteem Judgement: Fair Diagnostics Vital Signs (24Hr): Vital Signs - 24 hr 09/20/23 18:00 Temperature 98.0 F Pulse Rate 88 Respiratory Rate 18 Blood Pressure 109/55 L Pulse Oximetry 98 Oxygen Delivery Method Room Air BMI result Body Mass Index 60.1 Labs 09/06/23 10:23 09/06/23 10:23 Medications Medications Current Medications Acetaminophen (Acetaminophen 325 Mg Tablet) 650 mg PO Q6H PRN PRN Reason: Headache/Pain Mild Scale (1-3) Last Admin: 09/07/23 16:09 Dose: 650 mg Al Hydroxide/Mg Hydroxide (Magnesium Hydrox/Alum Hydrox 30 Ml Oral.Susp) 30 ml PO Q6H PRN PRN Reason: Heartburn/Nausea Divalproex Sodium (Divalproex Sodium 500 Mg Tablet.Dr) 1,000 mg PO BID INOCENCIO Last Admin: 09/21/23 09:29 Dose: 1,000 mg Hydroxyzine HCl (Hydroxyzine Hcl 25 Mg Tablet) 25 mg PO Q6H PRN PRN Reason: Anxiety Magnesium Hydroxide (Milk Of Magnesia 30 Ml Oral.Susp) 30 ml PO DAILY PRN PRN Reason: Constipation Nystatin (Nystatin Powder 15 Gm Bottle) 1 appl TOPICAL BID INOCENCIO; Protocol Last Admin: 09/21/23 12:14 Dose: 1 appl Nystatin (Nystatin Cream 15 Gm Tube) 1 appl TOPICAL BID INOCENCIO; Protocol Last Admin: 09/21/23 12:14 Dose: 1 appl Olanzapine (Olanzapine Odt 10 Mg Tab.Rapdis) 10 mg TRANSLINGU TID PRN PRN Reason: agitation Last Admin: 09/11/23 09:44 Dose: 10 mg Olanzapine (Olanzapine Odt 10 Mg Tab.Rapdis) 20 mg TRANSLINGU BID INOCENCIO Last Admin: 09/21/23 09:29 Dose: 20 mg Trazodone HCl (Trazodone Hcl 50 Mg Tablet) 50 mg PO BEDTIME MRX1 PRN PRN Reason: Insomnia Allergies Allergies Allergy/AdvReac Type Severity Reaction Status Date / Time kiwi [KIWI] Allergy Mild HIVES Verified 07/07/23 10:07 mold [MOLD EXTRACTS*] Allergy Mild HIVES Verified 07/07/23 10:07 Assessment & Plan Assessment & Plan (1) Bipolar disorder with psychotic features: Status: Acute Code(s): F31.9 - Bipolar disorder, unspecified (2) Schizoaffective disorder, bipolar type: Status: Acute Code(s): F25.0 - Schizoaffective disorder, bipolar type Plan 33 yo female with a history of bipolar disorder with psychosis/schizoaffective disorder presents with acute brendon after stopping medications on 09/03 (Depakote). Plan: Re-start and stabilize regime Olanzapine 10 mg HS When recompensated, discuss THOMAS with pt and family. Collateral contact Family Intervention Medical Management of sx. 09/08/23 Increase Depakote to 1000 mg bid Increase Olanzapine to 20 mg daily Continue Haldol Labs 09/09/23. 09/09/23 Continue current regime 09/10/23 Symptoms of UTI Urine culture, Bactrim DS, Pyridium 09/11/23 Increase in delusional, disinhibited sx today. Haldol 10 mg po x 1 prn On 09/12 increase Haldol to 10 mg tid 09/12/22 Continue tx. 09/13/23 Pt has had a reasonable trial of Haldol with Olanzapine and Valproate which has not seemed to be stabilizing. By history, Olanzapine 40 mg has been effective Plan: Discontinue Haldol Increase Olanzapine to 20 mg bid. 09/15/23 Continue current regime 09/16/2023? Continue?current?regimen 09/18/2023: Continue current regimen and plans 09/19/22: Continue current regime and plan. 09/21/23: Continue tx. Lab has been asked to draw Depakote level for several days. Patient educated on: therapeutic strategies Informed Consent: further education needed Reason for continued inpatient stay Substantial Risk for: rapid decompensation Time Spent With Patient Time: Total time managing care of this patient today ____ minutes.
[2023-09-21 19:35] VITALS: BP 142/94; PULSE 90; RESP 16; TEMP 36.4; O2SAT 93
[2023-09-21] MEDS: traZODone HCL 50 MG TABLET PO (20:32)
--- NOTE | 2023-09-22 09:03 | HO.WOUND ---
Wound Consult: Attempted initial wound assessment and wound consultation. 33yr old?[place] [facility] [place] [facility] Unit - See progress notes and H&P for detailed history.? Wound consult placed for fungal dermatitis to breast, abdominal folds and groin - chart review reveals Antifungal cream and powder has been in place since 09/08/23. Arrival to unit direct care team reported patient was sleeping and did not want to wake her for assessment - will attempt assessment at future date and or time.
[2023-09-22] MEDS: Divalproex Sodium 500 MG TABLET.DR 1000 MG PO ×2 (09:34→22:45)
[2023-09-22] MEDS: OLANZapine ODT 10 MG TAB.RAPDIS 20 MG TRANSLINGU ×2 (09:34→22:46)
[2023-09-22 10:01] VITALS: BP 127/83; PULSE 99; RESP 18; TEMP 36.3; O2SAT 100
--- NOTE | 2023-09-22 13:28 | P.PNPSI_ITS ---
Subjective Subjective Date of Service: 09/22/23 Reason For Visit: brendon,psychosis Subjective Notes: Conditional Voluntary Interim History: Reviewed with . Patient reports feeling good today; pt stated, I'm not anxious or depressed. I feel a 10/10! . Patient reports she would like a sonogram d/t concern of having an ovarian cyst.Per staff report, pt has been asking for a sonogram d/t her belief she is . denies SI/HI/VH/AH. Medication Compliance: Yes Attending Groups: No Review of Systems Constitutional: Reports as per HPI Eyes: Reports as per HPI Reports as per HPI Cardiovascular: Reports as per HPI Respiratory: Reports as per HPI Gastrointestinal: Reports as per HPI Genitourinary: Reports as per HPI Musculoskeletal: Reports as per HPI Skin/Breast: Reports as per HPI Reports as per HPI Psychiatric: Reports as per HPI Endocrine: Reports as per HPI Hematologic/Lymphatic: Reports as per HPI Allergic/Immunologic: Reports as per HPI Mental Status Exam Mental Status Exam Patient Appearance: Disheveled Level of Consciousness: Awake and Alert Patient Behavior: Appropriate and Guarded Mood Description: Calm and Happy Ability to Follow Directions: Good Speech Pattern: Clear Diagnostics Vital Signs (24Hr): Vital Signs - 24 hr 09/21/23 19:35 09/22/23 10:01 Temperature 97.6 F 97.3 F Pulse Rate 90 99 Respiratory Rate 16 18 Blood Pressure 142/94 H 127/83 Pulse Oximetry 93 100 Oxygen Delivery Method Room Air Room Air BMI result Body Mass Index 60.1 Labs 09/06/23 10:23 09/06/23 10:23 Medications Medications Current Medications Acetaminophen (Acetaminophen 325 Mg Tablet) 650 mg PO Q6H PRN PRN Reason: Headache/Pain Mild Scale (1-3) Last Admin: 09/07/23 16:09 Dose: 650 mg Al Hydroxide/Mg Hydroxide (Magnesium Hydrox/Alum Hydrox 30 Ml Oral.Susp) 30 ml PO Q6H PRN PRN Reason: Heartburn/Nausea Divalproex Sodium (Divalproex Sodium 500 Mg Tablet.) 1,000 mg PO BID [facility] Last Admin: 09/22/23 09:34 Dose: 1,000 mg Hydroxyzine HCl (Hydroxyzine Hcl 25 Mg Tablet) 25 mg PO Q6H PRN PRN Reason: Anxiety Magnesium Hydroxide (Milk Of Magnesia 30 Ml Oral.Susp) 30 ml PO DAILY PRN PRN Reason: Constipation Nystatin (Nystatin Powder 15 Gm Bottle) 1 appl TOPICAL BID INOCENCIO; Protocol Last Admin: 09/22/23 09:39 Dose: Not Given Nystatin (Nystatin Cream 15 Gm Tube) 1 appl TOPICAL BID INOCENCIO; Protocol Last Admin: 09/22/23 09:39 Dose: Not Given Olanzapine (Olanzapine Odt 10 Mg Tab.Rapdis) 10 mg TRANSLINGU TID PRN PRN Reason: agitation Last Admin: 09/11/23 09:44 Dose: 10 mg Olanzapine (Olanzapine Odt 10 Mg Tab.Rapdis) 20 mg TRANSLINGU BID INOCENCIO Last Admin: 09/22/23 09:34 Dose: 20 mg Trazodone HCl (Trazodone Hcl 50 Mg Tablet) 50 mg PO BEDTIME MRX1 PRN PRN Reason: Insomnia Last Admin: 09/21/23 20:32 Dose: 50 mg Allergies Allergies Allergy/AdvReac Type Severity Reaction Status Date / Time kiwi [KIWI] Allergy Mild HIVES Verified 07/07/23 10:07 mold [MOLD EXTRACTS*] Allergy Mild HIVES Verified 07/07/23 10:07 Assessment & Plan Assessment & Plan (1) Bipolar disorder with psychotic features: Status: Acute Code(s): F31.9 - Bipolar disorder, unspecified (2) Schizoaffective disorder, bipolar type: Status: Acute Code(s): F25.0 - Schizoaffective disorder, bipolar type Plan 33 yo female with a history of bipolar disorder with psychosis/schizoaffective disorder presents with acute brendon after stopping medications on 09/03 (Depakote). Plan: Re-start and stabilize regime Olanzapine 10 mg HS When recompensated, discuss THOMAS with pt and family. Collateral contact Family Intervention Medical Management of sx. 09/08/23 Increase Depakote to 1000 mg bid Increase Olanzapine to 20 mg daily Continue Haldol Labs 09/09/23. 09/09/23 Continue current regime 09/10/23 Symptoms of UTI Urine culture, Bactrim DS, Pyridium 09/11/23 Increase in delusional, disinhibited sx today. Haldol 10 mg po x 1 prn On 09/12 increase Haldol to 10 mg tid 09/12/22 Continue tx. 09/13/23 Pt has had a reasonable trial of Haldol with Olanzapine and Valproate which has not seemed to be stabilizing. By history, Olanzapine 40 mg has been effective Plan: Discontinue Haldol Increase Olanzapine to 20 mg bid. 09/15/23 Continue current regime 09/16/2023? Continue?current?regimen 09/18/2023: Continue current regimen and plans 09/19/22: Continue current regime and plan. 09/21/23: Continue tx. Lab has been asked to draw Depakote level for several days. 09/22: Continue current tx plan. Patient educated on: diagnosis and medication risk/benefits Informed Consent: understands and further education needed Reason for continued inpatient stay Substantial Risk for: med/psych decompensation Time Spent With Patient Time: Total time managing care of this patient today _20___ minutes.
--- NOTE | 2023-09-22 16:36 | HO.WOUND ---
Wound Consult: Initial / Follow up 33yr old?Female admitted [place] [facility] [place] to the Behavioral Health Unit - See progress notes and H&P for detailed history.? Wound consult placed for fungal dermatitis to skin folds.? Patient agreeable to assessment and photo documentation.? Todays assessment is post shower and the tissue appears clean without significant evidence of Fungal dermatitis there is evidence of MASD noted. Of importance the patient has been using topical antifungals since 09/08/23 - this is likely impacting the appearance of fungal dermatitis as the topical treatment is working. Of note the patient has been prescribed powder and cream and both have been in use - after discussion with the patient she will only need powder to continue treatment. Patient educated on the things she can do to aid in resolving this fungal rash and MASD. Shower Daily - keep skin dry and clean. Apply topical treatments twice daily or as ordered continue for 10-14 days past rash clearing. Interdry use. Interdry sent to unit and pt and nurse instructed on use. Abdominal skin folds and bilateral breast folds assessed powder in place and evidence of MASD with pink blanchable mirrored pigmentation noted along skin fold. Intergluteal area assessed no MASD or Fungal dermaitits noted. When assessed the patient skin she is noted to have several areas of old injury resemblence of Hidradenitis Suppurative. The patient does not recall having that diagnosis previously. The observed bilateral inner thighs and breast and axilla are noted for scarring and tract like old injury consistent with Hidradenitis Suppurative. Under the right breast there was an area of mild erythema and hyperpigmentation noted consistent with Hidradenitis Suppurative - when palpated milky drainage was expressed - she reported she has had this in the past. No concern for abscess or infection milky drainage is WNL for Hidradenitis Suppurative. Topical recommendations made below and to direct nurse and pt. Topical Wound Care Recommendations 1. Bilateral Breast, ABD skin fold and Groin - Encourage patient to shower at least daily if not twice a day. Gently cleanse with Ph balanced soap and water, allow to dry - keep skin fold open to air to allow for tissue to completely dry. Then apply Antifungal powder twice daily. ?Apply for 10-14 days past point of clinical clearing. Consider use of Interdry Sheets to aid in translocating moisture. May apply barrier cream to open areas at bases of inner thigh skin folds. 2. Right Breast - Cleanse with NS moist gauze. Cut to size piece of Durafiber AG cover with ABD pad and tape lightly secure to protect from friction. Change daily. Re-consult wound care Nurse for wound deterioration or wound changes.
[2023-09-22 18:00] VITALS: BP 137/64; PULSE 111; RESP 16; TEMP 36.9; O2SAT 95
[2023-09-22 20:22] LABS: MANUAL DIFF FLAG NO
[2023-09-22 20:25] LABS: Basophils Percent Auto 0.5 % (0-2); Eosinophils Absolute Auto 0.1 X10*3/uL (0.0-0.4); Eosinophils Percent Auto 1.5 % (0-4); Hematocrit 41.3 % (37.0-47.0); Hemoglobin 13.7 g/dl (12.0-16.0); Imm Gran Abs Auto 0.05 X10*3/uL (0.00-0.03); Imm Gran Pct Auto 0.6 % (0.0-0.4); Lymphocytes Absolute Auto 2.9 X10*3/uL (1.2-4.9); Lymphocytes Percent Auto 35.7 % (20-40); Mean Corpuscular HGB Conc 33.2 g/dl (31.0-35.0); Mean Corpuscular Hemoglobin 28.1 pg (27.0-33.0); Mean Corpuscular Volume 84.6 fL (80.0-98.0); Monocytes Absolute Auto 0.6 X10*3/uL (0.1-1.2); Monocytes Percent Auto 7.2 % (2-11); Neutrophils Absolute Auto 4.5 x10*3/uL (2.0-8.3); Neutrophils Percent Auto 54.5 % (45-73); Platelet Count 161 X10*3/uL (160-400); Red Blood Count 4.88 X10*6/uL (4.20-5.50); Red Cell Distribution Width 13.3 % (11.0-16.0); White Blood Count 8.2 X10*3/uL (4.8-10.8)
[2023-09-22 20:30] LABS: Ammonia 25 umol/L (13-55)
[2023-09-22 20:35] LABS: Valproate 68.9 mcg/mL (50.0-100.0)
[2023-09-22 20:38] LABS: Alanine Aminotransferase 15 U/L (0-31); Albumin Level 4.3 g/dL (3.5-5.0); Alkaline Phosphatase 78 U/L (39-117); Aspartate Amino Transferase 15 U/L (5-31); Bilirubin Direct 0.1 mg/dL (0.0-0.5); Bilirubin Total 0.3 mg/dL (0.0-1.0); Total Protein 7.9 g/dL (6.5-8.0)
[2023-09-22] MEDS: traZODone HCL 50 MG TABLET PO (22:45)
[2023-09-23 08:12] VITALS: BP 136/100; PULSE 120; RESP 18; TEMP 36.5; O2SAT 99
[2023-09-23] MEDS: Divalproex Sodium 500 MG TABLET.DR 1000 MG PO ×2 (08:46→21:57)
[2023-09-23] MEDS: OLANZapine ODT 10 MG TAB.RAPDIS 20 MG TRANSLINGU ×2 (08:46→21:57)
--- NOTE | 2023-09-23 10:44 | P.PNPSI_ITS ---
Subjective Subjective Date of Service: 09/23/23 Reason For Visit: brendon,psychosis Subjective Notes: Conditional Voluntary Interim History: Reviewed with . Social with staff. bright. med compliant. Patient reports feeling anxious today; pt stated, I'm worried my family is depressed about my cafe . She reports back pain but doesn't want medication because I only believe essential oils will help my back . Medication Compliance: Yes Review of Systems Constitutional: Reports as per HPI Eyes: Reports as per HPI Reports as per HPI Cardiovascular: Reports as per HPI Respiratory: Reports as per HPI Gastrointestinal: Reports as per HPI Genitourinary: Reports as per HPI Musculoskeletal: Reports as per HPI Skin/Breast: Reports as per HPI Reports as per HPI Psychiatric: Reports as per HPI Endocrine: Reports as per HPI Hematologic/Lymphatic: Reports as per HPI Allergic/Immunologic: Reports as per HPI Mental Status Exam Mental Status Exam Patient Appearance: Disheveled Patient Orientation: Person, Place and Situation Level of Consciousness: Awake and Alert Patient Behavior: Appropriate, Guarded, Talkative and Anxious Mood Description: Calm and Happy Affect Description: Labile Patient Cognition Impaired: No Ability to Follow Directions: Good Speech Pattern: Clear Diagnostics Vital Signs (24Hr): Vital Signs - 24 hr 09/22/23 18:00 09/23/23 08:12 Temperature 98.5 F 97.7 F Pulse Rate 111 H 120 H Respiratory Rate 16 18 Blood Pressure 137/64 136/100 H Pulse Oximetry 95 99 Oxygen Delivery Method Room Air Room Air BMI result Body Mass Index 60.1 Labs 09/22/23 20:15 09/06/23 10:23 Labs: Laboratory Results - last 48 hr 09/22/23 09/22/23 08:00 20:15 WBC Cancelled 8.2 RBC Cancelled 4.88 Hgb Cancelled 13.7 Hct Cancelled 41.3 MCV Cancelled 84.6 MCH Cancelled 28.1 MCHC Cancelled 33.2 RDW Cancelled 13.3 Plt Count Cancelled 161 MPV Cancelled 10.0 Immature Gran % (Auto) Cancelled 0.6 H Neut % (Auto) Cancelled 54.5 Lymph % (Auto) Cancelled 35.7 [place] % (Auto) Cancelled 7.2 Eos % (Auto) Cancelled 1.5 Baso % (Auto) Cancelled 0.5 Lymph # (Auto) Cancelled 2.9 [place] # (Auto) Cancelled 0.6 Eos # (Auto) Cancelled 0.1 Baso # (Auto) Cancelled 0.0 Abs Immat Gran (auto) Cancelled 0.05 H Absolute Neuts (auto) Cancelled 4.5 Absolute Nucleated RBC Cancelled 0.000 Nucleated RBC % (auto) Cancelled 0.0 Total Bilirubin 0.3 Direct Bilirubin 0.1 AST 15 ALT 15 Alkaline Phosphatase 78 Ammonia 25 Total Protein 7.9 Albumin 4.3 Valproic Acid 68.9 Medications Medications Current Medications Acetaminophen (Acetaminophen 325 Mg Tablet) 650 mg PO Q6H PRN PRN Reason: Headache/Pain Mild Scale (1-3) Last Admin: 09/07/23 16:09 Dose: 650 mg Al Hydroxide/Mg Hydroxide (Magnesium Hydrox/Alum Hydrox 30 Ml Oral.Susp) 30 ml PO Q6H PRN PRN Reason: Heartburn/Nausea [place] Butter/Zinc Oxide ([place] Butter/Zinc Oxide Supp.Rect) 1 supp [place] BID PRN PRN Reason: Hemorrhoids Divalproex Sodium (Divalproex Sodium 500 Mg Tablet.) 1,000 mg PO BID INOCENCIO Last Admin: 09/23/23 08:46 Dose: 1,000 mg Hydroxyzine HCl (Hydroxyzine Hcl 25 Mg Tablet) 25 mg PO Q6H PRN PRN Reason: Anxiety Magnesium Hydroxide (Milk Of Magnesia 30 Ml Oral.Susp) 30 ml PO DAILY PRN PRN Reason: Constipation Nystatin (Nystatin Powder 15 Gm Bottle) 1 appl TOPICAL BID INOCENCIO; Protocol Last Admin: 09/23/23 10:07 Dose: 1 appl Nystatin (Nystatin Cream 15 Gm Tube) 1 appl TOPICAL BID INOCENCIO; Protocol Last Admin: 09/23/23 10:08 Dose: 1 appl Olanzapine (Olanzapine Odt 10 Mg Tab.Rapdis) 10 mg TRANSLINGU TID PRN PRN Reason: agitation Last Admin: 09/11/23 09:44 Dose: 10 mg Olanzapine (Olanzapine Odt 10 Mg Tab.Rapdis) 20 mg TRANSLINGU BID INOCENCIO Last Admin: 09/23/23 08:46 Dose: 20 mg Trazodone HCl (Trazodone Hcl 50 Mg Tablet) 50 mg PO BEDTIME MRX1 PRN PRN Reason: Insomnia Last Admin: 09/22/23 22:45 Dose: 50 mg Allergies Allergies Allergy/AdvReac Type Severity Reaction Status Date / Time kiwi [KIWI] Allergy Mild HIVES Verified 07/07/23 10:07 mold [MOLD EXTRACTS*] Allergy Mild HIVES Verified 07/07/23 10:07 Assessment & Plan Assessment & Plan (1) Bipolar disorder with psychotic features: Status: Acute Code(s): F31.9 - Bipolar disorder, unspecified (2) Schizoaffective disorder, bipolar type: Status: Acute Code(s): F25.0 - Schizoaffective disorder, bipolar type Plan 33 yo female with a history of bipolar disorder with psychosis/schizoaffective disorder presents with acute brendon after stopping medications on 09/03 (Depakote). Plan: Re-start and stabilize regime Olanzapine 10 mg HS When recompensated, discuss THOMAS with pt and family. Collateral contact Family Intervention Medical Management of sx. 09/08/23 Increase Depakote to 1000 mg bid Increase Olanzapine to 20 mg daily Continue Haldol Labs 09/09/23. 09/09/23 Continue current regime 09/10/23 Symptoms of UTI Urine culture, Bactrim DS, Pyridium 09/11/23 Increase in delusional, disinhibited sx today. Haldol 10 mg po x 1 prn On 09/12 increase Haldol to 10 mg tid 09/12/22 Continue tx. 09/13/23 Pt has had a reasonable trial of Haldol with Olanzapine and Valproate which has not seemed to be stabilizing. By history, Olanzapine 40 mg has been effective Plan: Discontinue Haldol Increase Olanzapine to 20 mg bid. 09/15/23 Continue current regime 09/16/2023? Continue?current?regimen 09/18/2023: Continue current regimen and plans 09/19/22: Continue current regime and plan. 09/21/23: Continue tx. Lab has been asked to draw Depakote level for several days. 09/22: Continue current tx plan. 09/23: Valporic acid level 68.9 on 09/22. Continue current tx plan. Reason for continued inpatient stay Substantial Risk for: med/psych decompensation Time Spent With Patient Time: Total time managing care of this patient today ____ minutes.
[2023-09-23 18:00] VITALS: BP 123/82; PULSE 97; RESP 16; TEMP 36.8; O2SAT 100
[2023-09-24 08:22] VITALS: BP 136/82; PULSE 86; RESP 16; TEMP 36.4; O2SAT 100
[2023-09-24] MEDS: OLANZapine ODT 10 MG TAB.RAPDIS 20 MG TRANSLINGU ×2 (09:54→21:47)
[2023-09-24] MEDS: Divalproex Sodium 500 MG TABLET.DR 1000 MG PO ×2 (09:54→21:48)
--- NOTE | 2023-09-24 10:14 | P.PNPSI_ITS ---
Subjective Subjective Date of Service: 09/24/23 Reason For Visit: brendon,psychosis Interim History: met With patient; discussed with team pt pleasant, remains in better control; taking meds, sleeping well. Stilll with some delusional thinking and odd behavior; asks for sonogram. She asks when she can DC but says she knows she'll have to wait for primary team provider. Mental Status Exam Mental Status Exam Patient Appearance: Appropriate Patient Orientation: Person, Place and Situation Level of Consciousness: Alert Patient Behavior: Talkative, Cooperative and Good Eye Contact Mood Description: Elated (little bit) Affect Description: Elated (smiling a lot) Patient Cognition Impaired: No Ability to Follow Directions: Good Speech Pattern: Spontaneous Speech Memory Description: Remote Impaired Hallucinations: None Delusions: Grandiose and Present Thought Process: Distracted Thought Content: positive for Circumstantial and positive for Suicidal Ideation (denies) Judgement and Insight: impaired but improved Diagnostics Vital Signs (24Hr): Vital Signs - 24 hr 09/23/23 18:00 09/24/23 08:22 Temperature 98.2 F 97.6 F Pulse Rate 97 86 Respiratory Rate 16 16 Blood Pressure 123/82 136/82 Pulse Oximetry 100 100 Oxygen Delivery Method Room Air Room Air BMI result Body Mass Index 60.1 Labs 09/22/23 20:15 09/06/23 10:23 Labs: Laboratory Results - last 48 hr 09/22/23 09/22/23 08:00 20:15 WBC Cancelled 8.2 RBC Cancelled 4.88 Hgb Cancelled 13.7 Hct Cancelled 41.3 MCV Cancelled 84.6 MCH Cancelled 28.1 MCHC Cancelled 33.2 RDW Cancelled 13.3 Plt Count Cancelled 161 MPV Cancelled 10.0 Immature Gran % (Auto) Cancelled 0.6 H Neut % (Auto) Cancelled 54.5 Lymph % (Auto) Cancelled 35.7 [place] % (Auto) Cancelled 7.2 Eos % (Auto) Cancelled 1.5 Baso % (Auto) Cancelled 0.5 Lymph # (Auto) Cancelled 2.9 [place] # (Auto) Cancelled 0.6 Eos # (Auto) Cancelled 0.1 Baso # (Auto) Cancelled 0.0 Abs Immat Gran (auto) Cancelled 0.05 H Absolute Neuts (auto) Cancelled 4.5 Absolute Nucleated RBC Cancelled 0.000 Nucleated RBC % (auto) Cancelled 0.0 Total Bilirubin 0.3 Direct Bilirubin 0.1 AST 15 ALT 15 Alkaline Phosphatase 78 Ammonia 25 Total Protein 7.9 Albumin 4.3 Valproic Acid 68.9 Medications Medications Current Medications Acetaminophen (Acetaminophen 325 Mg Tablet) 650 mg PO Q6H PRN PRN Reason: Headache/Pain Mild Scale (1-3) Last Admin: 09/07/23 16:09 Dose: 650 mg Al Hydroxide/Mg Hydroxide (Magnesium Hydrox/Alum Hydrox 30 Ml Oral.Susp) 30 ml PO Q6H PRN PRN Reason: Heartburn/Nausea [place] Butter/Zinc Oxide ([place] Butter/Zinc Oxide Supp.Rect) 1 supp [place] BID PRN PRN Reason: Hemorrhoids Divalproex Sodium (Divalproex Sodium 500 Mg Tablet.Dr) 1,000 mg PO BID [facility] Last Admin: 09/24/23 09:54 Dose: 1,000 mg Hydroxyzine HCl (Hydroxyzine Hcl 25 Mg Tablet) 25 mg PO Q6H PRN PRN Reason: Anxiety Magnesium Hydroxide (Milk Of Magnesia 30 Ml Oral.Susp) 30 ml PO DAILY PRN PRN Reason: Constipation Nystatin (Nystatin Powder 15 Gm Bottle) 1 appl TOPICAL BID [facility]; Protocol Last Admin: 09/23/23 22:02 Dose: Not Given Nystatin (Nystatin Cream 15 Gm Tube) 1 appl TOPICAL BID [facility]; Protocol Last Admin: 09/23/23 22:02 Dose: Not Given Olanzapine (Olanzapine Odt 10 Mg Tab.Rapdis) 10 mg TRANSLINGU TID PRN PRN Reason: agitation Last Admin: 09/11/23 09:44 Dose: 10 mg Olanzapine (Olanzapine Odt 10 Mg Tab.Rapdis) 20 mg TRANSLINGU BID INOCENCIO Last Admin: 09/24/23 09:54 Dose: 20 mg Trazodone HCl (Trazodone Hcl 50 Mg Tablet) 50 mg PO BEDTIME MRX1 PRN PRN Reason: Insomnia Last Admin: 09/22/23 22:45 Dose: 50 mg Allergies Allergies Allergy/AdvReac Type Severity Reaction Status Date / Time kiwi [KIWI] Allergy Mild HIVES Verified 07/07/23 10:07 mold [MOLD EXTRACTS*] Allergy Mild HIVES Verified 07/07/23 10:07 Assessment & Plan Assessment & Plan (1) Bipolar disorder with psychotic features: Status: Acute Code(s): F31.9 - Bipolar disorder, unspecified (2) Schizoaffective disorder, bipolar type: Status: Acute Code(s): F25.0 - Schizoaffective disorder, bipolar type Plan 33 yo female with a history of bipolar disorder with psychosis/schizoaffective disorder presents with acute brendon after stopping medications on 09/03 (Depakote). Plan: Re-start and stabilize regime Olanzapine 10 mg HS When recompensated, discuss THOMAS with pt and family. Collateral contact Family Intervention Medical Management of sx. 09/08/23 Increase Depakote to 1000 mg bid Increase Olanzapine to 20 mg daily Continue Haldol Labs 09/09/23. 09/09/23 Continue current regime 09/10/23 Symptoms of UTI Urine culture, Bactrim DS, Pyridium 09/11/23 Increase in delusional, disinhibited sx today. Haldol 10 mg po x 1 prn On 09/12 increase Haldol to 10 mg tid 09/12/22 Continue tx. 09/13/23 Pt has had a reasonable trial of Haldol with Olanzapine and Valproate which has not seemed to be stabilizing. By history, Olanzapine 40 mg has been effective Plan: Discontinue Haldol Increase Olanzapine to 20 mg bid. 09/15/23 Continue current regime 09/16/2023? Continue?current?regimen 09/18/2023: Continue current regimen and plans 09/19/22: Continue current regime and plan. 09/21/23: Continue tx. Lab has been asked to draw Depakote level for several days. 09/22: Continue current tx plan. 09/23: Valporic acid level 68.9 on 09/22. Continue current tx plan. 09/24 continue current tx plan Patient educated on: diagnosis Informed Consent: understands, does not understand and further education needed Reason for continued inpatient stay Substantial Risk for: inability to function Time Spent With Patient Time: Total time managing care of this patient today ____ minutes.
[2023-09-24 21:40] VITALS: BP 125/68; PULSE 95; TEMP 2.8; TEMP 37
[2023-09-25 08:46] VITALS: BP 121/70; PULSE 76; RESP 16; TEMP 36.4; O2SAT 95
[2023-09-25] MEDS: OLANZapine ODT 10 MG TAB.RAPDIS 20 MG TRANSLINGU ×2 (09:56→23:06)
[2023-09-25] MEDS: Divalproex Sodium 500 MG TABLET.DR 1000 MG PO ×2 (09:56→23:07)
--- NOTE | 2023-09-25 15:54 | HO.PSYCHPN ---
Subjective Subjective Date of Service: 09/25/23 Reason For Visit: brendon,psychosis Interim History: Met with patient; discussed with team again asks about sonogram, says she feels the baby moving... othewise same presentation, calm, in improved behavioral/impulse control Mental Status Exam Mental Status Exam Patient Appearance: Appropriate Patient Orientation: Person, Place and Situation Level of Consciousness: Alert Patient Behavior: Talkative, Cooperative and Good Eye Contact Mood Description: Elated (little bit) Affect Description: Elated (smiling a lot) Patient Cognition Impaired: No Ability to Follow Directions: Good Speech Pattern: Spontaneous Speech Memory Description: Remote Impaired Hallucinations: None Delusions: Grandiose and Present Thought Process: Distracted Thought Content: positive for Circumstantial and positive for Suicidal Ideation (denies) Judgement and Insight: impaired but improved Diagnostics Vital Signs (24Hr): Vital Signs - 24 hr 09/24/23 21:40 09/25/23 08:46 Temperature 37.0 F L 97.5 F Pulse Rate 95 76 Respiratory Rate 16 Blood Pressure 125/68 121/70 Pulse Oximetry 95 Oxygen Delivery Method Room Air BMI result Body Mass Index 60.1 Labs 09/22/23 20:15 09/06/23 10:23 Medications Medications Current Medications Acetaminophen (Acetaminophen 325 Mg Tablet) 650 mg PO Q6H PRN PRN Reason: Headache/Pain Mild Scale (1-3) Last Admin: 09/07/23 16:09 Dose: 650 mg Al Hydroxide/Mg Hydroxide (Magnesium Hydrox/Alum Hydrox 30 Ml Oral.Susp) 30 ml PO Q6H PRN PRN Reason: Heartburn/Nausea [place] Butter/Zinc Oxide ([place] Butter/Zinc Oxide Supp.Rect) 1 supp [place] BID PRN PRN Reason: Hemorrhoids Divalproex Sodium (Divalproex Sodium 500 Mg Tablet.Dr) 1,000 mg PO BID INOCENCIO Last Admin: 09/25/23 09:56 Dose: 1,000 mg Hydroxyzine HCl (Hydroxyzine Hcl 25 Mg Tablet) 25 mg PO Q6H PRN PRN Reason: Anxiety Magnesium Hydroxide (Milk Of Magnesia 30 Ml Oral.Susp) 30 ml PO DAILY PRN PRN Reason: Constipation Nystatin (Nystatin Powder 15 Gm Bottle) 1 appl TOPICAL BID INOCENCIO; Protocol Last Admin: 09/25/23 13:49 Dose: Not Given Nystatin (Nystatin Cream 15 Gm Tube) 1 appl TOPICAL BID INOCENCIO; Protocol Last Admin: 09/25/23 13:49 Dose: 1 appl Olanzapine (Olanzapine Odt 10 Mg Tab.Rapdis) 10 mg TRANSLINGU TID PRN PRN Reason: agitation Last Admin: 09/11/23 09:44 Dose: 10 mg Olanzapine (Olanzapine Odt 10 Mg Tab.Rapdis) 20 mg TRANSLINGU BID INOCENCIO Last Admin: 09/25/23 09:56 Dose: 20 mg Trazodone HCl (Trazodone Hcl 50 Mg Tablet) 50 mg PO BEDTIME MRX1 PRN PRN Reason: Insomnia Last Admin: 09/22/23 22:45 Dose: 50 mg Allergies Allergies Allergy/AdvReac Type Severity Reaction Status Date / Time kiwi [KIWI] Allergy Mild HIVES Verified 07/07/23 10:07 mold [MOLD EXTRACTS*] Allergy Mild HIVES Verified 07/07/23 10:07 Assessment & Plan Assessment & Plan (1) Bipolar disorder with psychotic features: Status: Acute Code(s): F31.9 - Bipolar disorder, unspecified (2) Schizoaffective disorder, bipolar type: Status: Acute Code(s): F25.0 - Schizoaffective disorder, bipolar type Plan 33 yo female with a history of bipolar disorder with psychosis/schizoaffective disorder presents with acute brendon after stopping medications on 09/03 (Depakote). Plan: Re-start and stabilize regime Olanzapine 10 mg HS When recompensated, discuss THOMAS with pt and family. Collateral contact Family Intervention Medical Management of sx. 09/08/23 Increase Depakote to 1000 mg bid Increase Olanzapine to 20 mg daily Continue Haldol Labs 09/09/23. 09/09/23 Continue current regime 09/10/23 Symptoms of UTI Urine culture, Bactrim DS, Pyridium 09/11/23 Increase in delusional, disinhibited sx today. Haldol 10 mg po x 1 prn On 09/12 increase Haldol to 10 mg tid 09/12/22 Continue tx. 09/13/23 Pt has had a reasonable trial of Haldol with Olanzapine and Valproate which has not seemed to be stabilizing. By history, Olanzapine 40 mg has been effective Plan: Discontinue Haldol Increase Olanzapine to 20 mg bid. 09/15/23 Continue current regime 09/16/2023? Continue?current?regimen 09/18/2023: Continue current regimen and plans 09/19/22: Continue current regime and plan. 09/21/23: Continue tx. Lab has been asked to draw Depakote level for several days. 09/22: Continue current tx plan. 09/23: Valporic acid level 68.9 on 09/22. Continue current tx plan. 09/24 continue current tx plan 09/25 continue current tx plan Patient educated on: diagnosis Informed Consent: further education needed Reason for continued inpatient stay Substantial Risk for: rapid decompensation Time Spent With Patient Time: Total time managing care of this patient today ____ minutes.
[2023-09-25 18:00] VITALS: BP 130/91; PULSE 102; TEMP 36; O2SAT 97
[2023-09-25 23:24] VITALS: BP 140/78; PULSE 84; TEMP 36.3
[2023-09-26 06:00] VITALS: BP 160/86; PULSE 88; RESP 16; TEMP 36.5; O2SAT 99
[2023-09-26] MEDS: Divalproex Sodium 500 MG TABLET.DR 1000 MG PO ×2 (08:25→20:41)
[2023-09-26] MEDS: OLANZapine ODT 10 MG TAB.RAPDIS 20 MG TRANSLINGU ×2 (08:25→20:42)
--- NOTE | 2023-09-26 10:17 | P.PNPSI_ITS ---
Subjective Subjective Date of Service: 09/26/23 Reason For Visit: brendon,psychosis Subjective Notes: Conditional Voluntary Healthcare Proxy: Yes Guardianship: No Medical Problems Affecting Mental Status: No Interim History: Pt continues to improve. Family is wanting discharge. Today, pt reports abdominal, ovarian pain. Diagnostics ordered. Discussed THOMAS with pt. She will consider. Discussed improved compliance with less need for hospitalization which she reports understanding of such. Medication Compliance: Yes Side effects from medications: No Attending Groups: No Review of Systems Acute medical concerns: No Reports abdominal pain, ovarian pain. Medical Review of Systems: unchanged Review of Systems Review of Systems Abdominal pain, Ovarian pain-diagnostics ordered. Mental Status Exam Mental Status Exam Patient Appearance: Disheveled Patient Orientation: Person, Place and Situation Level of Consciousness: Alert Patient Behavior: Talkative and Good Eye Contact Mood Description: Labile Affect Description: Labile Patient Cognition Impaired: No Ability to Follow Directions: Fair Speech Pattern: Spontaneous Speech Memory Description: Episodic Impaired Hallucinations: Auditory Delusions: Paranoid Ideation, Grandiose and Present Perceptual Disturbances: Derealization Thought Process: Illogical and Distracted Thought Content: positive for Flight of Ideas, positive for Circumstantial and positive for Tangential Depressive Symptoms: Increased Irritability and Difficulty Concentrating Abnormal Motor Activity Signs and Symptoms: Agitation and Restlessness Judgement: Poor Diagnostics Vital Signs (24Hr): Vital Signs - 24 hr 09/25/23 18:00 09/25/23 23:24 09/26/23 06:00 Temperature 96.8 F 97.4 F 97.7 F Pulse Rate 102 H 84 88 Respiratory Rate 16 Blood Pressure 130/91 H 140/78 H 160/86 H Pulse Oximetry 97 99 Oxygen Delivery Method Room Air Room Air BMI result Body Mass Index 60.1 Labs 09/22/23 20:15 09/06/23 10:23 Medications Medications Current Medications Acetaminophen (Acetaminophen 325 Mg Tablet) 650 mg PO Q6H PRN PRN Reason: Headache/Pain Mild Scale (1-3) Last Admin: 09/07/23 16:09 Dose: 650 mg Al Hydroxide/Mg Hydroxide (Magnesium Hydrox/Alum Hydrox 30 Ml Oral.Susp) 30 ml PO Q6H PRN PRN Reason: Heartburn/Nausea [place] Butter/Zinc Oxide ([place] Butter/Zinc Oxide Supp.Rect) 1 supp [place] BID PRN PRN Reason: Hemorrhoids Divalproex Sodium (Divalproex Sodium 500 Mg Tablet.) 1,000 mg PO BID INOCENCIO Last Admin: 09/26/23 08:25 Dose: 1,000 mg Hydroxyzine HCl (Hydroxyzine Hcl 25 Mg Tablet) 25 mg PO Q6H PRN PRN Reason: Anxiety Magnesium Hydroxide (Milk Of Magnesia 30 Ml Oral.Susp) 30 ml PO DAILY PRN PRN Reason: Constipation Nystatin (Nystatin Powder 15 Gm Bottle) 1 appl TOPICAL BID [facility]; Protocol Last Admin: 09/26/23 08:26 Dose: Not Given Nystatin (Nystatin Cream 15 Gm Tube) 1 appl TOPICAL BID [facility]; Protocol Last Admin: 09/26/23 08:26 Dose: 1 appl Olanzapine (Olanzapine Odt 10 Mg Tab.Rapdis) 10 mg TRANSLINGU TID PRN PRN Reason: agitation Last Admin: 09/11/23 09:44 Dose: 10 mg Olanzapine (Olanzapine Odt 10 Mg Tab.Rapdis) 20 mg TRANSLINGU BID [facility] Last Admin: 09/26/23 08:25 Dose: 20 mg Trazodone HCl (Trazodone Hcl 50 Mg Tablet) 50 mg PO BEDTIME MRX1 PRN PRN Reason: Insomnia Last Admin: 09/22/23 22:45 Dose: 50 mg Allergies Allergies Allergy/AdvReac Type Severity Reaction Status Date / Time kiwi [KIWI] Allergy Mild HIVES Verified 07/07/23 10:07 mold [MOLD EXTRACTS*] Allergy Mild HIVES Verified 07/07/23 10:07 Assessment & Plan Assessment & Plan (1) Bipolar disorder with psychotic features: Status: Acute Code(s): F31.9 - Bipolar disorder, unspecified (2) Schizoaffective disorder, bipolar type: Status: Acute Code(s): F25.0 - Schizoaffective disorder, bipolar type Plan 33 yo female with a history of bipolar disorder with psychosis/schizoaffective disorder presents with acute brendon after stopping medications on 09/03 (Depakote). Plan: Re-start and stabilize regime Olanzapine 10 mg HS When recompensated, discuss THOMAS with pt and family. Collateral contact Family Intervention Medical Management of sx. 09/08/23 Increase Depakote to 1000 mg bid Increase Olanzapine to 20 mg daily Continue Haldol Labs 09/09/23. 09/09/23 Continue current regime 09/10/23 Symptoms of UTI Urine culture, Bactrim DS, Pyridium 09/11/23 Increase in delusional, disinhibited sx today. Haldol 10 mg po x 1 prn On 09/12 increase Haldol to 10 mg tid 09/12/22 Continue tx. 09/13/23 Pt has had a reasonable trial of Haldol with Olanzapine and Valproate which has not seemed to be stabilizing. By history, Olanzapine 40 mg has been effective Plan: Discontinue Haldol Increase Olanzapine to 20 mg bid. 09/15/23 Continue current regime 09/16/2023? Continue?current?regimen 09/18/2023: Continue current regimen and plans 09/19/22: Continue current regime and plan. 09/21/23: Continue tx. Lab has been asked to draw Depakote level for several days. 09/22: Continue current tx plan. 09/23: Valporic acid level 68.9 on 09/22. Continue current tx plan. 09/24 continue current tx plan 09/25 continue current tx plan 09/26/23: Abdominal pain, Ovarian pain-diagnostics are pending. Patient educated on: therapeutic strategies and medical condition Informed Consent: further education needed Reason for continued inpatient stay Substantial Risk for: rapid decompensation and med/psych decompensation Time Spent With Patient Time: Total time managing care of this patient today ____ minutes.
[2023-09-26 18:00] VITALS: BP 127/75; PULSE 91; RESP 18; TEMP 36.1; O2SAT 97
[2023-09-27 06:00] VITALS: RESP 16
[2023-09-27] MEDS: OLANZapine ODT 10 MG TAB.RAPDIS 20 MG TRANSLINGU ×2 (10:21→21:16)
[2023-09-27] MEDS: Divalproex Sodium 500 MG TABLET.DR 1000 MG PO ×2 (10:21→21:16)
--- NOTE | 2023-09-27 13:54 | HO.PSYCHPN ---
Subjective Subjective Date of Service: 09/27/23 Reason For Visit: brendon,psychosis Subjective Notes: Conditional Voluntary Healthcare Proxy: No Guardianship: No Medical Problems Affecting Mental Status: No Interim History: Gradual improvement, with breakthrough symptoms still present. Daytime sedation evident. Agreeable to trial for MARTHA Hernandez Will begin 09/28. Mother visited. Father is in process of closing [employer] shop and will inform her this week. Medication Compliance: Yes Side effects from medications: Yes (sedation) Attending Groups: No Review of Systems Acute medical concerns: No Medical Review of Systems: unchanged Review of Systems Review of Systems Yes all other systems are reviewed and are negative Mental Status Exam Mental Status Exam Patient Appearance: Disheveled Patient Orientation: Person, Place and Situation Level of Consciousness: Alert Patient Behavior: Talkative and Good Eye Contact Mood Description: Labile Affect Description: Labile Patient Cognition Impaired: No Ability to Follow Directions: Fair Speech Pattern: Spontaneous Speech Memory Description: Episodic Impaired Hallucinations: Auditory Delusions: Paranoid Ideation, Grandiose and Present Perceptual Disturbances: Derealization Thought Process: Illogical and Distracted Thought Content: positive for Flight of Ideas, positive for Circumstantial and positive for Tangential Depressive Symptoms: Increased Irritability and Difficulty Concentrating Abnormal Motor Activity Signs and Symptoms: Agitation and Restlessness Judgement: Poor Diagnostics Vital Signs (24Hr): Vital Signs - 24 hr 09/26/23 18:00 09/27/23 06:00 Temperature 97 F Pulse Rate 91 Respiratory Rate 18 16 Blood Pressure 127/75 Pulse Oximetry 97 Oxygen Delivery Method Room Air BMI result Body Mass Index 60.1 Labs 09/22/23 20:15 09/06/23 10:23 Imaging Radiology Impressions: ITS Impressions KUB X-Ray 09/26/23 10:33 IMPRESSION: * Nonobstructive bowel gas pattern with a moderate colonic stool burden. Pelvic/Transvag US 09/26/23 20:58 IMPRESSION: 1. Limited study due to patient body habitus and inability to tolerate transvaginal imaging. 2. The uterus is normal in size. The endometrial thickness is questionably 0.4 cm. 3. The right ovary is not seen. 4. The left ovary is not seen with certainty. Medications Medications Current Medications Acetaminophen (Acetaminophen 325 Mg Tablet) 650 mg PO Q6H PRN PRN Reason: Headache/Pain Mild Scale (1-3) Last Admin: 09/07/23 16:09 Dose: 650 mg Al Hydroxide/Mg Hydroxide (Magnesium Hydrox/Alum Hydrox 30 Ml Oral.Susp) 30 ml PO Q6H PRN PRN Reason: Heartburn/Nausea [place] Butter/Zinc Oxide ([place] Butter/Zinc Oxide Supp.Rect) 1 supp [place] BID PRN PRN Reason: Hemorrhoids Divalproex Sodium (Divalproex Sodium 500 Mg Tablet.Dr) 1,000 mg PO BID INOCENCIO Last Admin: 09/27/23 10:21 Dose: 1,000 mg Hydroxyzine HCl (Hydroxyzine Hcl 25 Mg Tablet) 25 mg PO Q6H PRN PRN Reason: Anxiety Magnesium Hydroxide (Milk Of Magnesia 30 Ml Oral.Susp) 30 ml PO DAILY PRN PRN Reason: Constipation Nystatin (Nystatin Powder 15 Gm Bottle) 1 appl TOPICAL BID [facility]; Protocol Last Admin: 09/27/23 09:57 Dose: Not Given Nystatin (Nystatin Cream 15 Gm Tube) 1 appl TOPICAL BID [facility]; Protocol Last Admin: 09/27/23 09:57 Dose: Not Given Olanzapine (Olanzapine Odt 10 Mg Tab.Rapdis) 10 mg TRANSLINGU TID PRN PRN Reason: agitation Last Admin: 09/11/23 09:44 Dose: 10 mg Olanzapine (Olanzapine Odt 10 Mg Tab.Rapdis) 20 mg TRANSLINGU BID [facility] Last Admin: 09/27/23 10:21 Dose: 20 mg Trazodone HCl (Trazodone Hcl 50 Mg Tablet) 50 mg PO BEDTIME MRX1 PRN PRN Reason: Insomnia Last Admin: 09/22/23 22:45 Dose: 50 mg Allergies Allergies Allergy/AdvReac Type Severity Reaction Status Date / Time kiwi [KIWI] Allergy Mild HIVES Verified 07/07/23 10:07 mold [MOLD EXTRACTS*] Allergy Mild HIVES Verified 07/07/23 10:07 Assessment & Plan Assessment & Plan (1) Bipolar disorder with psychotic features: Status: Acute Code(s): F31.9 - Bipolar disorder, unspecified (2) Schizoaffective disorder, bipolar type: Status: Acute Code(s): F25.0 - Schizoaffective disorder, bipolar type Plan 33 yo female with a history of bipolar disorder with psychosis/schizoaffective disorder presents with acute brendon after stopping medications on 09/03 (Depakote). Plan: Re-start and stabilize regime Olanzapine 10 mg HS When recompensated, discuss THOMAS with pt and family. Collateral contact Family Intervention Medical Management of sx. 09/08/23 Increase Depakote to 1000 mg bid Increase Olanzapine to 20 mg daily Continue Haldol Labs 09/09/23. 09/09/23 Continue current regime 09/10/23 Symptoms of UTI Urine culture, Bactrim DS, Pyridium 09/11/23 Increase in delusional, disinhibited sx today. Haldol 10 mg po x 1 prn On 09/12 increase Haldol to 10 mg tid 09/12/22 Continue tx. 09/13/23 Pt has had a reasonable trial of Haldol with Olanzapine and Valproate which has not seemed to be stabilizing. By history, Olanzapine 40 mg has been effective Plan: Discontinue Haldol Increase Olanzapine to 20 mg bid. 09/15/23 Continue current regime 09/16/2023? Continue?current?regimen 09/18/2023: Continue current regimen and plans 09/19/22: Continue current regime and plan. 09/21/23: Continue tx. Lab has been asked to draw Depakote level for several days. 09/22: Continue current tx plan. 09/23: Valporic acid level 68.9 on 09/22. Continue current tx plan. 09/24 continue current tx plan 09/25 continue current tx plan 09/26/23: Abdominal pain, Ovarian pain-diagnostics are pending. 09/27/22: Diagnostics essentially negative Pt able to move her bowels she reports Invega 3 mg a.m Decrease Olanzapine to 20 mg HS Patient educated on: medication risk/benefits Informed Consent: understands and further education needed Reason for continued inpatient stay Substantial Risk for: rapid decompensation Time Spent With Patient Time: Total time managing care of this patient today ____ minutes.
[2023-09-28 09:00] VITALS: RESP 16
[2023-09-28] MEDS: Divalproex Sodium 500 MG TABLET.DR 1000 MG PO ×2 (11:23→20:37)
[2023-09-28] MEDS: Paliperidone ER 3 MG TAB.ER.24 PO (11:23)
[2023-09-28 18:00] VITALS: BP 149/65; PULSE 101; RESP 16; TEMP 36.9; O2SAT 99
--- NOTE | 2023-09-28 19:06 | HO.PSYCHPN ---
Subjective Subjective Date of Service: 09/28/23 Reason For Visit: brendon,psychosis Subjective Notes: Conditional Voluntary Healthcare Proxy: No Guardianship: No Medical Problems Affecting Mental Status: No Interim History: Reports seven hours sleep Reports bowel are moving, decrease in abdominal discomfort Tolerated first dose of Invega PO and is aware we are decreasing Olanzapine at HS. Continues to improve with intermittent breakthrough. Medication Compliance: Yes Side effects from medications: No Attending Groups: No Review of Systems Acute medical concerns: No Medical Review of Systems: unchanged Review of Systems Review of Systems Yes all other systems are reviewed and are negative Mental Status Exam Mental Status Exam Patient Appearance: Disheveled Patient Orientation: Person, Place and Situation Level of Consciousness: Alert Patient Behavior: Talkative and Good Eye Contact Mood Description: Labile Affect Description: Labile Patient Cognition Impaired: No Ability to Follow Directions: Fair Speech Pattern: Spontaneous Speech Memory Description: Episodic Impaired Hallucinations: Auditory Delusions: Paranoid Ideation, Grandiose and Present Perceptual Disturbances: Derealization Thought Process: Illogical and Distracted Thought Content: positive for Flight of Ideas, positive for Circumstantial and positive for Tangential Depressive Symptoms: Increased Irritability and Difficulty Concentrating Abnormal Motor Activity Signs and Symptoms: Agitation and Restlessness Judgement: Poor Diagnostics Vital Signs (24Hr): Vital Signs - 24 hr 09/28/23 09:00 09/28/23 18:00 Temperature 98.4 F Pulse Rate 101 H Respiratory Rate 16 16 Blood Pressure 149/65 H Pulse Oximetry 99 Oxygen Delivery Method Room Air BMI result Body Mass Index 60.1 Labs 09/22/23 20:15 09/06/23 10:23 Imaging Radiology Impressions: ITS Impressions KUB X-Ray 09/26/23 10:33 IMPRESSION: * Nonobstructive bowel gas pattern with a moderate colonic stool burden. Pelvic/Transvag US 09/26/23 20:58 IMPRESSION: 1. Limited study due to patient body habitus and inability to tolerate transvaginal imaging. 2. The uterus is normal in size. The endometrial thickness is questionably 0.4 cm. 3. The right ovary is not seen. 4. The left ovary is not seen with certainty. Medications Medications Current Medications Acetaminophen (Acetaminophen 325 Mg Tablet) 650 mg PO Q6H PRN PRN Reason: Headache/Pain Mild Scale (1-3) Last Admin: 09/07/23 16:09 Dose: 650 mg Al Hydroxide/Mg Hydroxide (Magnesium Hydrox/Alum Hydrox 30 Ml Oral.Susp) 30 ml PO Q6H PRN PRN Reason: Heartburn/Nausea [place] Butter/Zinc Oxide ([place] Butter/Zinc Oxide Supp.Rect) 1 supp [place] BID PRN PRN Reason: Hemorrhoids Divalproex Sodium (Divalproex Sodium 500 Mg Tablet.Dr) 1,000 mg PO BID INOCENCIO Last Admin: 09/28/23 11:23 Dose: 1,000 mg Hydroxyzine HCl (Hydroxyzine Hcl 25 Mg Tablet) 25 mg PO Q6H PRN PRN Reason: Anxiety Magnesium Hydroxide (Milk Of Magnesia 30 Ml Oral.Susp) 30 ml PO DAILY PRN PRN Reason: Constipation Nystatin (Nystatin Powder 15 Gm Bottle) 1 appl TOPICAL BID [facility]; Protocol Last Admin: 09/28/23 11:23 Dose: Not Given Nystatin (Nystatin Cream 15 Gm Tube) 1 appl TOPICAL BID [facility]; Protocol Last Admin: 09/28/23 11:23 Dose: Not Given Olanzapine (Olanzapine Odt 10 Mg Tab.Rapdis) 10 mg TRANSLINGU TID PRN PRN Reason: agitation Last Admin: 09/11/23 09:44 Dose: 10 mg Olanzapine (Olanzapine Odt 10 Mg Tab.Rapdis) 20 mg TRANSLINGU BEDTIME INOCENCIO Paliperidone (Paliperidone Er 3 Mg Tab.Er.24) 3 mg PO DAILY INOCENCIO Last Admin: 09/28/23 11:23 Dose: 3 mg Trazodone HCl (Trazodone Hcl 50 Mg Tablet) 50 mg PO BEDTIME MRX1 PRN PRN Reason: Insomnia Last Admin: 09/22/23 22:45 Dose: 50 mg Allergies Allergies Allergy/AdvReac Type Severity Reaction Status Date / Time kiwi [KIWI] Allergy Mild HIVES Verified 07/07/23 10:07 mold [MOLD EXTRACTS*] Allergy Mild HIVES Verified 07/07/23 10:07 Assessment & Plan Assessment & Plan (1) Bipolar disorder with psychotic features: Status: Acute Code(s): F31.9 - Bipolar disorder, unspecified (2) Schizoaffective disorder, bipolar type: Status: Acute Code(s): F25.0 - Schizoaffective disorder, bipolar type Plan 33 yo female with a history of bipolar disorder with psychosis/schizoaffective disorder presents with acute brendon after stopping medications on 09/03 (Depakote). Plan: Re-start and stabilize regime Olanzapine 10 mg HS When recompensated, discuss THOMAS with pt and family. Collateral contact Family Intervention Medical Management of sx. 09/08/23 Increase Depakote to 1000 mg bid Increase Olanzapine to 20 mg daily Continue Haldol Labs 09/09/23. 09/09/23 Continue current regime 09/10/23 Symptoms of UTI Urine culture, Bactrim DS, Pyridium 09/11/23 Increase in delusional, disinhibited sx today. Haldol 10 mg po x 1 prn On 09/12 increase Haldol to 10 mg tid 09/12/22 Continue tx. 09/13/23 Pt has had a reasonable trial of Haldol with Olanzapine and Valproate which has not seemed to be stabilizing. By history, Olanzapine 40 mg has been effective Plan: Discontinue Haldol Increase Olanzapine to 20 mg bid. 09/15/23 Continue current regime 09/16/2023? Continue?current?regimen 09/18/2023: Continue current regimen and plans 09/19/22: Continue current regime and plan. 09/21/23: Continue tx. Lab has been asked to draw Depakote level for several days. 09/22: Continue current tx plan. 09/23: Valporic acid level 68.9 on 09/22. Continue current tx plan. 09/24 continue current tx plan 09/25 continue current tx plan 09/26/23: Abdominal pain, Ovarian pain-diagnostics are pending. 09/28/23- Continue current tx plan Patient educated on: medication risk/benefits and therapeutic strategies Informed Consent: understands and further education needed Reason for continued inpatient stay Substantial Risk for: rapid decompensation and med/psych decompensation Time Spent With Patient Time: Total time managing care of this patient today ____ minutes.
[2023-09-28] MEDS: OLANZapine ODT 10 MG TAB.RAPDIS 20 MG TRANSLINGU (20:37)
[2023-09-29 07:00] VITALS: BMI 59.7
[2023-09-29 08:13] VITALS: BP 155/58; PULSE 96; RESP 16; TEMP 36.2; O2SAT 99
[2023-09-29] MEDS: Divalproex Sodium 500 MG TABLET.DR 1000 MG PO ×2 (10:27→20:30)
[2023-09-29] MEDS: Paliperidone ER 3 MG TAB.ER.24 PO (10:27)
--- NOTE | 2023-09-29 15:29 | P.PNPSI_ITS ---
Subjective Subjective Date of Service: 09/29/23 Reason For Visit: brendon,psychosis Subjective Notes: Conditional Voluntary Healthcare Proxy: No Guardianship: No Medical Problems Affecting Mental Status: No Interim History: Awake, alert, smiling. Intermittent breakthrough episodes appear to be decreasing. Tolerating Invega PO. Slept a good amount yesterday and eight hours last evening. Incontinent of urine x 1. Discussed with pt decreasing Olanzapine again. She agrees. Medication Compliance: Yes Side effects from medications: No Attending Groups: No Review of Systems Acute medical concerns: No Medical Review of Systems: unchanged Review of Systems Review of Systems Yes all other systems are reviewed and are negative Mental Status Exam Mental Status Exam Patient Appearance: Appropriate Patient Orientation: Person, Place and Situation Level of Consciousness: Alert Patient Behavior: Talkative and Good Eye Contact Mood Description: Cheerful Affect Description: Cheerful Patient Cognition Impaired: No Ability to Follow Directions: Fair Speech Pattern: Spontaneous Speech Memory Description: Episodic Impaired Thought Process: Distracted Thought Content: positive for Circumstantial and positive for Tangential Judgement: Fair Diagnostics Vital Signs (24Hr): Vital Signs - 24 hr 09/28/23 18:00 09/29/23 08:13 Temperature 98.4 F 97.1 F Pulse Rate 101 H 96 Respiratory Rate 16 16 Blood Pressure 149/65 H 155/58 H Pulse Oximetry 99 99 Oxygen Delivery Method Room Air Room Air BMI result Body Mass Index 59.7 Labs 09/22/23 20:15 09/06/23 10:23 Imaging Radiology Impressions: ITS Impressions KUB X-Ray 09/26/23 10:33 IMPRESSION: * Nonobstructive bowel gas pattern with a moderate colonic stool burden. Pelvic/Transvag US 09/26/23 20:58 IMPRESSION: 1. Limited study due to patient body habitus and inability to tolerate transvaginal imaging. 2. The uterus is normal in size. The endometrial thickness is questionably 0.4 cm. 3. The right ovary is not seen. 4. The left ovary is not seen with certainty. Medications Medications Current Medications Acetaminophen (Acetaminophen 325 Mg Tablet) 650 mg PO Q6H PRN PRN Reason: Headache/Pain Mild Scale (1-3) Last Admin: 09/07/23 16:09 Dose: 650 mg Al Hydroxide/Mg Hydroxide (Magnesium Hydrox/Alum Hydrox 30 Ml Oral.Susp) 30 ml PO Q6H PRN PRN Reason: Heartburn/Nausea [place] Butter/Zinc Oxide ([place] Butter/Zinc Oxide Supp.Rect) 1 supp [place] BID PRN PRN Reason: Hemorrhoids Divalproex Sodium (Divalproex Sodium 500 Mg Tablet.Dr) 1,000 mg PO BID INOCENCIO Last Admin: 09/29/23 10:27 Dose: 1,000 mg Hydroxyzine HCl (Hydroxyzine Hcl 25 Mg Tablet) 25 mg PO Q6H PRN PRN Reason: Anxiety Magnesium Hydroxide (Milk Of Magnesia 30 Ml Oral.Susp) 30 ml PO DAILY PRN PRN Reason: Constipation Nystatin (Nystatin Powder 15 Gm Bottle) 1 appl TOPICAL BID [facility]; Protocol Last Admin: 09/29/23 14:15 Dose: 1 appl Nystatin (Nystatin Cream 15 Gm Tube) 1 appl TOPICAL BID [facility]; Protocol Last Admin: 09/29/23 10:28 Dose: Not Given Olanzapine (Olanzapine Odt 10 Mg Tab.Rapdis) 10 mg TRANSLINGU TID PRN PRN Reason: agitation Last Admin: 09/11/23 09:44 Dose: 10 mg Olanzapine (Olanzapine Odt 10 Mg Tab.Rapdis) 20 mg TRANSLINGU BEDTIME INOCENCIO Last Admin: 09/28/23 20:37 Dose: 20 mg Paliperidone (Paliperidone Er 3 Mg Tab.Er.24) 3 mg PO DAILY INOCENCIO Last Admin: 09/29/23 10:27 Dose: 3 mg Trazodone HCl (Trazodone Hcl 50 Mg Tablet) 50 mg PO BEDTIME MRX1 PRN PRN Reason: Insomnia Last Admin: 09/22/23 22:45 Dose: 50 mg Allergies Allergies Allergy/AdvReac Type Severity Reaction Status Date / Time kiwi [KIWI] Allergy Mild HIVES Verified 07/07/23 10:07 mold [MOLD EXTRACTS*] Allergy Mild HIVES Verified 07/07/23 10:07 Assessment & Plan Assessment & Plan (1) Bipolar disorder with psychotic features: Status: Acute Code(s): F31.9 - Bipolar disorder, unspecified (2) Schizoaffective disorder, bipolar type: Status: Acute Code(s): F25.0 - Schizoaffective disorder, bipolar type Plan 33 yo female with a history of bipolar disorder with psychosis/schizoaffective disorder presents with acute brendon after stopping medications on 09/03 (Depakote). Plan: Re-start and stabilize regime Olanzapine 10 mg HS When recompensated, discuss THOMAS with pt and family. Collateral contact Family Intervention Medical Management of sx. 09/08/23 Increase Depakote to 1000 mg bid Increase Olanzapine to 20 mg daily Continue Haldol Labs 09/09/23. 09/09/23 Continue current regime 09/10/23 Symptoms of UTI Urine culture, Bactrim DS, Pyridium 09/11/23 Increase in delusional, disinhibited sx today. Haldol 10 mg po x 1 prn On 09/12 increase Haldol to 10 mg tid 09/12/22 Continue tx. 09/13/23 Pt has had a reasonable trial of Haldol with Olanzapine and Valproate which has not seemed to be stabilizing. By history, Olanzapine 40 mg has been effective Plan: Discontinue Haldol Increase Olanzapine to 20 mg bid. 09/15/23 Continue current regime 09/16/2023? Continue?current?regimen 09/18/2023: Continue current regimen and plans 09/19/22: Continue current regime and plan. 09/21/23: Continue tx. Lab has been asked to draw Depakote level for several days. 09/22: Continue current tx plan. 09/23: Valporic acid level 68.9 on 09/22. Continue current tx plan. 09/24 continue current tx plan 09/25 continue current tx plan 09/26/23: Abdominal pain, Ovarian pain-diagnostics are pending. 09/29/23: Decrease Olanzapine to 10 mg HS Patient educated on: medication risk/benefits and therapeutic strategies Informed Consent: understands and further education needed Reason for continued inpatient stay Substantial Risk for: rapid decompensation Time Spent With Patient Time: Total time managing care of this patient today ____ minutes.
--- NOTE | 2023-09-29 18:21 | PC.NURSE ---
pt reports middle toe nail on right foot is painful. Upon assessment, nail looks to be infected or partially torn. Hospitalist consult entered by provider. Toenail covered with band aid until it can further be assessed.
[2023-09-29 19:25] VITALS: BP 133/74; PULSE 98; RESP 16; TEMP 36.7; O2SAT 97
[2023-09-29] MEDS: OLANZapine ODT 10 MG TAB.RAPDIS TRANSLINGU (20:30)
[2023-09-30] MEDS: Divalproex Sodium 500 MG TABLET.DR 1000 MG PO ×2 (09:26→21:06)
[2023-09-30] MEDS: Paliperidone ER 3 MG TAB.ER.24 PO (09:26)
[2023-09-30] MEDS: Doxycycline Monohydrate 100 MG CAPSULE PO (14:56)
--- NOTE | 2023-09-30 15:29 | P.PNPSI_ITS ---
Subjective Subjective Date of Service: 09/30/23 Reason For Visit: brendon,psychosis Subjective Notes: Conditional Voluntary Healthcare Proxy: No Guardianship: No Medical Problems Affecting Mental Status: No Interim History: Pt reports feeling well, tolerating Invega, visable in milieu, less instances of lability, increased interaction with her peers. 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 Today, pt is talking about returning to work, asking peers if she may hire them. Team reports urinary incontinence x1 this a.m. Pt reporting vaginal yeast infection sx. Diflucan ordered for 72 hours. Medication Compliance: Yes Side effects from medications: No Attending Groups: Intermittent Review of Systems Acute medical concerns: No Medical Review of Systems: unchanged Review of Systems Review of Systems Yes all other systems are reviewed and are negative Genitourinary: Reports urinary incontinence, Reports vaginal discharge, Reports vaginal odor and Reports vaginal pruritus Mental Status Exam Mental Status Exam Patient Appearance: Appropriate Patient Orientation: Person, Place and Situation Level of Consciousness: Alert Patient Behavior: Talkative and Good Eye Contact Mood Description: Cheerful Affect Description: Cheerful Patient Cognition Impaired: No Ability to Follow Directions: Fair Speech Pattern: Spontaneous Speech Memory Description: Episodic Impaired Thought Process: Distracted Thought Content: positive for Circumstantial and positive for Tangential Judgement: Fair Diagnostics Vital Signs (24Hr): Vital Signs - 24 hr 09/29/23 19:25 Temperature 98.1 F Pulse Rate 98 Respiratory Rate 16 Blood Pressure 133/74 Pulse Oximetry 97 Oxygen Delivery Method Room Air BMI result Body Mass Index 59.7 Labs 09/22/23 20:15 09/06/23 10:23 Imaging Radiology Impressions: ITS Impressions KUB X-Ray 09/26/23 10:33 IMPRESSION: * Nonobstructive bowel gas pattern with a moderate colonic stool burden. Pelvic/Transvag US 09/26/23 20:58 IMPRESSION: 1. Limited study due to patient body habitus and inability to tolerate transvaginal imaging. 2. The uterus is normal in size. The endometrial thickness is questionably 0.4 cm. 3. The right ovary is not seen. 4. The left ovary is not seen with certainty. Medications Medications Current Medications Acetaminophen (Acetaminophen 325 Mg Tablet) 650 mg PO Q6H PRN PRN Reason: Headache/Pain Mild Scale (1-3) Last Admin: 09/07/23 16:09 Dose: 650 mg Al Hydroxide/Mg Hydroxide (Magnesium Hydrox/Alum Hydrox 30 Ml Oral.Susp) 30 ml PO Q6H PRN PRN Reason: Heartburn/Nausea [place] Butter/Zinc Oxide ([place] Butter/Zinc Oxide Supp.Rect) 1 supp [place] BID PRN PRN Reason: Hemorrhoids Divalproex Sodium (Divalproex Sodium 500 Mg Tablet.) 1,000 mg PO BID [facility] Last Admin: 09/30/23 09:26 Dose: 1,000 mg Doxycycline Monohydrate (Doxycycline Monohydrate 100 Mg Capsule) 100 mg PO Q12H [facility] Stop: 10/07/23 09:01 Fluconazole (Fluconazole 100 Mg Tablet) 200 mg PO DAILY [facility] Stop: 10/03/23 21:00 Hydroxyzine HCl (Hydroxyzine Hcl 25 Mg Tablet) 25 mg PO Q6H PRN PRN Reason: Anxiety Magnesium Hydroxide (Milk Of Magnesia 30 Ml Oral.Susp) 30 ml PO DAILY PRN PRN Reason: Constipation Nystatin (Nystatin Powder 15 Gm Bottle) 1 appl TOPICAL BID REPLACED BY [facility]; Protocol Last Admin: 09/30/23 14:34 Dose: 1 appl Nystatin (Nystatin Cream 15 Gm Tube) 1 appl TOPICAL BID REPLACED BY [facility]; Protocol Last Admin: 09/30/23 09:26 Dose: Not Given Olanzapine (Olanzapine Odt 10 Mg Tab.Rapdis) 10 mg TRANSLINGU TID PRN PRN Reason: agitation Last Admin: 09/11/23 09:44 Dose: 10 mg Olanzapine (Olanzapine Odt 10 Mg Tab.Rapdis) 10 mg TRANSLINGU BEDTIME [facility] Last Admin: 09/29/23 20:30 Dose: 10 mg Paliperidone (Paliperidone Er 3 Mg Tab.Er.24) 3 mg PO DAILY [facility] Last Admin: 09/30/23 09:26 Dose: 3 mg Trazodone HCl (Trazodone Hcl 50 Mg Tablet) 50 mg PO BEDTIME MRX1 PRN PRN Reason: Insomnia Last Admin: 09/22/23 22:45 Dose: 50 mg Allergies Allergies Allergy/AdvReac Type Severity Reaction Status Date / Time kiwi [KIWI] Allergy Mild HIVES Verified 07/07/23 10:07 mold [MOLD EXTRACTS*] Allergy Mild HIVES Verified 07/07/23 10:07 Assessment & Plan Assessment & Plan (1) Bipolar disorder with psychotic features: Status: Acute Code(s): F31.9 - Bipolar disorder, unspecified (2) Schizoaffective disorder, bipolar type: Status: Acute Code(s): F25.0 - Schizoaffective disorder, bipolar type Plan 33 yo female with a history of bipolar disorder with psychosis/schizoaffective disorder presents with acute brendon after stopping medications on 09/03 (Depakote). Plan: Re-start and stabilize regime Olanzapine 10 mg HS When recompensated, discuss THOMAS with pt and family. Collateral contact Family Intervention Medical Management of sx. 09/08/23 Increase Depakote to 1000 mg bid Increase Olanzapine to 20 mg daily Continue Haldol Labs 09/09/23. 09/09/23 Continue current regime 09/10/23 Symptoms of UTI Urine culture, Bactrim DS, Pyridium 09/11/23 Increase in delusional, disinhibited sx today. Haldol 10 mg po x 1 prn On 09/12 increase Haldol to 10 mg tid 09/12/22 Continue tx. 09/13/23 Pt has had a reasonable trial of Haldol with Olanzapine and Valproate which has not seemed to be stabilizing. By history, Olanzapine 40 mg has been effective Plan: Discontinue Haldol Increase Olanzapine to 20 mg bid. 09/15/23 Continue current regime 09/16/2023? Continue?current?regimen 09/18/2023: Continue current regimen and plans 09/19/22: Continue current regime and plan. 09/21/23: Continue tx. Lab has been asked to draw Depakote level for several days. 09/22: Continue current tx plan. 09/23: Valporic acid level 68.9 on 09/22. Continue current tx plan. 09/24 continue current tx plan 09/25 continue current tx plan 09/26/23: Abdominal pain, Ovarian pain-diagnostics are pending. 09/29/23: Decrease Olanzapine to 10 mg HS 09/30/23: Increase Invega to 4.5 mg daily Decrease Olanzapine to 5 mg HS Diflucan for 72 hours for yeast infection sx Patient educated on: medication risk/benefits Informed Consent: further education needed Reason for continued inpatient stay Substantial Risk for: rapid decompensation and med/psych decompensation Time Spent With Patient Time: Total time managing care of this patient today ____ minutes.
--- NOTE | 2023-09-30 15:40 | PM.EVENT ---
Event Note Date of Service: 09/30/23 Event Note: Patient seen and evaluated for 3rd toe of left foot with erythema and swelling. Patient states symptoms began few days ago. Toe is painful at both rest and with ambulation. No purulent discharge. No known trauma. Patient has been putting bacitracin and Band-Aid on it. Upon examination toe appears swollen and erythematous with some warmth. As pictured below. Will treat with doxycycline 100 mg b.i.d. x7 days. Please take with plenty of water and with meals. No need to cover with bandages. Time Spent With Patient Time: Total time managing care of this patient today ____ minutes.
[2023-09-30 17:20] VITALS: BP 133/81; PULSE 100; RESP 16; TEMP 36.1; O2SAT 100
[2023-09-30] MEDS: OLANZapine ODT 10 MG TAB.RAPDIS 5 MG TRANSLINGU (21:06)
[2023-10-01 08:00] VITALS: BP 135/69; PULSE 81; RESP 18; TEMP 36.6; O2SAT 100
[2023-10-01] MEDS: OLANZapine ODT 10 MG TAB.RAPDIS TRANSLINGU (09:20)
[2023-10-01] MEDS: Divalproex Sodium 500 MG TABLET.DR 1000 MG PO ×2 (09:21→20:47)
[2023-10-01] MEDS: Paliperidone ER 3 MG TAB.ER.24 4.5 MG PO (09:21)
[2023-10-01] MEDS: Doxycycline Monohydrate 100 MG CAPSULE PO ×2 (09:21→20:47)
[2023-10-01] MEDS: Fluconazole 100 MG TABLET 200 MG PO (09:27)
--- NOTE | 2023-10-01 09:32 | PC.NURSE ---
Invega 4.5 mg schedules for 9am. Instrtuctions state do not crush or chew and pill is not scored. Called pharmacy, was advised that there is no smaller pill available. Gave 3mg. Pharmacy and nurse to separately notify covering
--- NOTE | 2023-10-01 12:07 | HO.PSYCHPN ---
Subjective Subjective Date of Service: 10/01/23 Reason For Visit: brendon,psychosis Interim History: pt pleasant and cooperative; reports her toe is inflamed and painful - seen by hospitalist today - started on antibiotic. visited with mother and attended to ADLS Medication Compliance: Yes Side effects from medications: No Attending Groups: Intermittent Review of Systems toe infection Medical Review of Systems: unchanged Review of Systems Review of Systems toe infection Yes all other systems are reviewed and are negative and Unobtainable due to mental status Constitutional: Reports as per HPI Eyes: Reports as per HPI Reports as per HPI Cardiovascular: Reports as per HPI Respiratory: Reports as per HPI Gastrointestinal: Reports as per HPI Musculoskeletal: Reports as per HPI Skin/Breast: Reports as per HPI Reports as per HPI Psychiatric: Reports as per HPI Endocrine: Reports as per HPI Hematologic/Lymphatic: Reports as per HPI Allergic/Immunologic: Reports as per HPI Mental Status Exam Mental Status Exam Narrative: In today's visit she is alert, pleasant and interactive. Normal speech. Moderate eye contact. No acute signs of psychosis. Delusions present. No SI. Cognitively is disorganized and could not be formally tested. Judgment is impaired Patient Appearance: Appropriate Patient Orientation: Person, Place and Situation Level of Consciousness: Alert Patient Behavior: Talkative and Good Eye Contact Mood Description: Cheerful Affect Description: Cheerful Patient Cognition Impaired: No Ability to Follow Directions: Fair Speech Pattern: Spontaneous Speech Memory Description: Episodic Impaired Diagnostics Vital Signs (24Hr): Vital Signs - 24 hr 09/30/23 17:20 10/01/23 08:00 Temperature 97.0 F 97.8 F Pulse Rate 100 81 Respiratory Rate 16 18 Blood Pressure 133/81 135/69 Pulse Oximetry 100 100 Oxygen Delivery Method Room Air Room Air BMI result Body Mass Index 59.7 Labs 09/22/23 20:15 09/06/23 10:23 Imaging Radiology Impressions: ITS Impressions KUB X-Ray 09/26/23 10:33 IMPRESSION: * Nonobstructive bowel gas pattern with a moderate colonic stool burden. Pelvic/Transvag US 09/26/23 20:58 IMPRESSION: 1. Limited study due to patient body habitus and inability to tolerate transvaginal imaging. 2. The uterus is normal in size. The endometrial thickness is questionably 0.4 cm. 3. The right ovary is not seen. 4. The left ovary is not seen with certainty. Medications Medications Current Medications Acetaminophen (Acetaminophen 325 Mg Tablet) 650 mg PO Q6H PRN PRN Reason: Headache/Pain Mild Scale (1-3) Last Admin: 09/07/23 16:09 Dose: 650 mg Al Hydroxide/Mg Hydroxide (Magnesium Hydrox/Alum Hydrox 30 Ml Oral.Susp) 30 ml PO Q6H PRN PRN Reason: Heartburn/Nausea [place] Butter/Zinc Oxide ([place] Butter/Zinc Oxide Supp.Rect) 1 supp [place] BID PRN PRN Reason: Hemorrhoids Divalproex Sodium (Divalproex Sodium 500 Mg Tablet.Dr) 1,000 mg PO BID [facility] Last Admin: 10/01/23 09:21 Dose: 1,000 mg Doxycycline Monohydrate (Doxycycline Monohydrate 100 Mg Capsule) 100 mg PO Q12H [facility] Stop: 10/07/23 09:01 Last Admin: 10/01/23 09:21 Dose: 100 mg Fluconazole (Fluconazole 100 Mg Tablet) 200 mg PO DAILY [facility] Stop: 10/03/23 21:00 Last Admin: 10/01/23 09:27 Dose: 200 mg Hydroxyzine HCl (Hydroxyzine Hcl 25 Mg Tablet) 25 mg PO Q6H PRN PRN Reason: Anxiety Magnesium Hydroxide (Milk Of Magnesia 30 Ml Oral.Susp) 30 ml PO DAILY PRN PRN Reason: Constipation Nystatin (Nystatin Powder 15 Gm Bottle) 1 appl TOPICAL BID [facility]; Protocol Last Admin: 10/01/23 09:27 Dose: Not Given Nystatin (Nystatin Cream 15 Gm Tube) 1 appl TOPICAL BID [facility]; Protocol Last Admin: 10/01/23 09:27 Dose: Not Given Olanzapine (Olanzapine Odt 10 Mg Tab.Rapdis) 10 mg TRANSLINGU TID PRN PRN Reason: agitation Last Admin: 10/01/23 09:20 Dose: 10 mg Olanzapine (Olanzapine Odt 10 Mg Tab.Rapdis) 5 mg TRANSLINGU BEDTIME [facility] Last Admin: 09/30/23 21:06 Dose: 5 mg Paliperidone (Paliperidone Er 3 Mg Tab.Er.24) 4.5 mg PO DAILY [facility] Last Admin: 10/01/23 09:21 Dose: 3 mg Trazodone HCl (Trazodone Hcl 50 Mg Tablet) 50 mg PO BEDTIME MRX1 PRN PRN Reason: Insomnia Last Admin: 09/22/23 22:45 Dose: 50 mg Allergies Allergies Allergy/AdvReac Type Severity Reaction Status Date / Time kiwi [KIWI] Allergy Mild HIVES Verified 07/07/23 10:07 mold [MOLD EXTRACTS*] Allergy Mild HIVES Verified 07/07/23 10:07 Assessment & Plan Assessment & Plan (1) Bipolar disorder with psychotic features: Status: Acute Code(s): F31.9 - Bipolar disorder, unspecified (2) Schizoaffective disorder, bipolar type: Status: Acute Code(s): F25.0 - Schizoaffective disorder, bipolar type Plan 33 yo female with a history of bipolar disorder with psychosis/schizoaffective disorder presents with acute brendon after stopping medications on 09/03 (Depakote). Plan: Re-start and stabilize regime Olanzapine 10 mg HS When recompensated, discuss THOMAS with pt and family. Collateral contact Family Intervention Medical Management of sx. 09/08/23 Increase Depakote to 1000 mg bid Increase Olanzapine to 20 mg daily Continue Haldol Labs 09/09/23. 09/09/23 Continue current regime 09/10/23 Symptoms of UTI Urine culture, Bactrim DS, Pyridium 09/11/23 Increase in delusional, disinhibited sx today. Haldol 10 mg po x 1 prn On 09/12 increase Haldol to 10 mg tid 09/12/22 Continue tx. 09/13/23 Pt has had a reasonable trial of Haldol with Olanzapine and Valproate which has not seemed to be stabilizing. By history, Olanzapine 40 mg has been effective Plan: Discontinue Haldol Increase Olanzapine to 20 mg bid. 09/15/23 Continue current regime 09/16/2023? Continue?current?regimen 09/18/2023: Continue current regimen and plans 09/19/22: Continue current regime and plan. 09/21/23: Continue tx. Lab has been asked to draw Depakote level for several days. 09/22: Continue current tx plan. 09/23: Valporic acid level 68.9 on 09/22. Continue current tx plan. 09/24 continue current tx plan 09/25 continue current tx plan 09/26/23: Abdominal pain, Ovarian pain-diagnostics are pending. 09/29/23: Decrease Olanzapine to 10 mg HS 09/30/23: Increase Invega to 4.5 mg daily Decrease Olanzapine to 5 mg HS Diflucan for 72 hours for yeast infection sx 10/01/22 invega decreased to 3mg daily due to not being able to split tablets per pharmacy rule; pt taking zyprexa prn consider increasing invega to 6mg daily Patient educated on: medication risk/benefits, therapeutic strategies and medical condition Informed Consent: understands and further education needed Reason for continued inpatient stay Substantial Risk for: inability to function and rapid decompensation Time Spent With Patient Time: Total time managing care of this patient today ____ minutes.
[2023-10-01 18:00] VITALS: BP 140/70; PULSE 90; RESP 18; TEMP 36.7; O2SAT 98
[2023-10-01] MEDS: OLANZapine ODT 10 MG TAB.RAPDIS 5 MG TRANSLINGU (20:48)
[2023-10-02 07:40] VITALS: BP 166/111; PULSE 85; RESP 18; TEMP 36.9; O2SAT 100
[2023-10-02] MEDS: Divalproex Sodium 500 MG TABLET.DR 1000 MG PO ×2 (09:18→20:29)
[2023-10-02] MEDS: Fluconazole 100 MG TABLET 200 MG PO (09:18)
[2023-10-02] MEDS: Doxycycline Monohydrate 100 MG CAPSULE PO ×2 (09:18→20:29)
[2023-10-02] MEDS: Paliperidone ER 3 MG TAB.ER.24 PO (09:19)
--- NOTE | 2023-10-02 10:18 | HO.PSYCHPN ---
Subjective Subjective Date of Service: 10/02/23 Reason For Visit: brendon,psychosis Interim History: pt pleasant and cooperative; reports her toe is inflamed and painful but less so today- seen by hospitalist yesterday - started on antibiotic. visited with mother and attended to ADLS; bright; cooperative; BP high; no chest pain, sob, or headache Medication Compliance: Yes Side effects from medications: No Attending Groups: No Review of Systems Acute medical concerns: No Medical Review of Systems: unchanged Review of Systems Review of Systems toe infection Yes all other systems are reviewed and are negative and Unobtainable due to mental status Constitutional: Reports as per HPI Eyes: Reports as per HPI Reports as per HPI Cardiovascular: Reports as per HPI Respiratory: Reports as per HPI Gastrointestinal: Reports as per HPI Musculoskeletal: Reports as per HPI Skin/Breast: Reports as per HPI Reports as per HPI Psychiatric: Reports as per HPI Endocrine: Reports as per HPI Hematologic/Lymphatic: Reports as per HPI Allergic/Immunologic: Reports as per HPI Mental Status Exam Mental Status Exam Narrative: In today's visit she is alert, pleasant and interactive. Bright affect Normal speech. Moderate eye contact. No acute signs of psychosis. Delusions present. No SI. Cognitively is disorganized and could not be formally tested. Judgment is impaired Patient Appearance: Appropriate Patient Orientation: Person, Place and Situation Level of Consciousness: Alert Patient Behavior: Talkative and Good Eye Contact Mood Description: Cheerful Affect Description: Cheerful Patient Cognition Impaired: No Ability to Follow Directions: Fair Speech Pattern: Spontaneous Speech Memory Description: Episodic Impaired Judgement: Fair Diagnostics Vital Signs (24Hr): Vital Signs - 24 hr 10/01/23 18:00 10/02/23 07:40 Temperature 98.0 F 98.5 F Pulse Rate 90 85 Respiratory Rate 18 18 Blood Pressure 140/70 H Pulse Oximetry 98 100 Oxygen Delivery Method Room Air Room Air BMI result Body Mass Index 59.7 Labs 09/22/23 20:15 09/06/23 10:23 Imaging Radiology Impressions: ITS Impressions KUB X-Ray 09/26/23 10:33 IMPRESSION: * Nonobstructive bowel gas pattern with a moderate colonic stool burden. Pelvic/Transvag US 09/26/23 20:58 IMPRESSION: 1. Limited study due to patient body habitus and inability to tolerate transvaginal imaging. 2. The uterus is normal in size. The endometrial thickness is questionably 0.4 cm. 3. The right ovary is not seen. 4. The left ovary is not seen with certainty. Medications Medications Current Medications Acetaminophen (Acetaminophen 325 Mg Tablet) 650 mg PO Q6H PRN PRN Reason: Headache/Pain Mild Scale (1-3) Last Admin: 09/07/23 16:09 Dose: 650 mg Al Hydroxide/Mg Hydroxide (Magnesium Hydrox/Alum Hydrox 30 Ml Oral.Susp) 30 ml PO Q6H PRN PRN Reason: Heartburn/Nausea [place] Butter/Zinc Oxide ([place] Butter/Zinc Oxide Supp.Rect) 1 supp [place] BID PRN PRN Reason: Hemorrhoids Divalproex Sodium (Divalproex Sodium 500 Mg Tablet.Dr) 1,000 mg PO BID [facility] Last Admin: 10/02/23 09:18 Dose: 1,000 mg Doxycycline Monohydrate (Doxycycline Monohydrate 100 Mg Capsule) 100 mg PO Q12H [facility] Stop: 10/07/23 09:01 Last Admin: 10/02/23 09:18 Dose: 100 mg Fluconazole (Fluconazole 100 Mg Tablet) 200 mg PO DAILY [facility] Stop: 10/03/23 21:00 Last Admin: 10/02/23 09:18 Dose: 200 mg Hydroxyzine HCl (Hydroxyzine Hcl 25 Mg Tablet) 25 mg PO Q6H PRN PRN Reason: Anxiety Magnesium Hydroxide (Milk Of Magnesia 30 Ml Oral.Susp) 30 ml PO DAILY PRN PRN Reason: Constipation Nystatin (Nystatin Powder 15 Gm Bottle) 1 appl TOPICAL BID [facility]; Protocol Last Admin: 10/02/23 09:19 Dose: Not Given Nystatin (Nystatin Cream 15 Gm Tube) 1 appl TOPICAL BID [facility]; Protocol Last Admin: 10/02/23 09:20 Dose: Not Given Olanzapine (Olanzapine Odt 10 Mg Tab.Rapdis) 10 mg TRANSLINGU TID PRN PRN Reason: agitation Last Admin: 10/01/23 09:20 Dose: 10 mg Olanzapine (Olanzapine Odt 10 Mg Tab.Rapdis) 5 mg TRANSLINGU BEDTIME [facility] Last Admin: 10/01/23 20:48 Dose: 5 mg Paliperidone (Paliperidone Er 3 Mg Tab.Er.24) 3 mg PO DAILY [facility] Last Admin: 10/02/23 09:19 Dose: 3 mg Trazodone HCl (Trazodone Hcl 50 Mg Tablet) 50 mg PO BEDTIME MRX1 PRN PRN Reason: Insomnia Last Admin: 09/22/23 22:45 Dose: 50 mg Allergies Allergies Allergy/AdvReac Type Severity Reaction Status Date / Time kiwi [KIWI] Allergy Mild HIVES Verified 07/07/23 10:07 mold [MOLD EXTRACTS*] Allergy Mild HIVES Verified 07/07/23 10:07 Assessment & Plan Assessment & Plan (1) Bipolar disorder with psychotic features: Status: Acute Code(s): F31.9 - Bipolar disorder, unspecified (2) Schizoaffective disorder, bipolar type: Status: Acute Code(s): F25.0 - Schizoaffective disorder, bipolar type Plan 33 yo female with a history of bipolar disorder with psychosis/schizoaffective disorder presents with acute brendon after stopping medications on 09/03 (Depakote). Plan: Re-start and stabilize regime Olanzapine 10 mg HS When recompensated, discuss THOMAS with pt and family. Collateral contact Family Intervention Medical Management of sx. 09/08/23 Increase Depakote to 1000 mg bid Increase Olanzapine to 20 mg daily Continue Haldol Labs 09/09/23. 09/09/23 Continue current regime 09/10/23 Symptoms of UTI Urine culture, Bactrim DS, Pyridium 09/11/23 Increase in delusional, disinhibited sx today. Haldol 10 mg po x 1 prn On 09/12 increase Haldol to 10 mg tid 09/12/22 Continue tx. 09/13/23 Pt has had a reasonable trial of Haldol with Olanzapine and Valproate which has not seemed to be stabilizing. By history, Olanzapine 40 mg has been effective Plan: Discontinue Haldol Increase Olanzapine to 20 mg bid. 09/15/23 Continue current regime 09/16/2023? Continue?current?regimen 09/18/2023: Continue current regimen and plans 09/19/22: Continue current regime and plan. 09/21/23: Continue tx. Lab has been asked to draw Depakote level for several days. 09/22: Continue current tx plan. 09/23: Valporic acid level 68.9 on 09/22. Continue current tx plan. 09/24 continue current tx plan 09/25 continue current tx plan 09/26/23: Abdominal pain, Ovarian pain-diagnostics are pending. 09/29/23: Decrease Olanzapine to 10 mg HS 09/30/23: Increase Invega to 4.5 mg daily Decrease Olanzapine to 5 mg HS Diflucan for 72 hours for yeast infection sx 10/01/23 invega decreased to 3mg daily due to not being able to split tablets per pharmacy rule; pt taking zyprexa prn consider increasing invega to 6mg daily 10/02/23 no med changes today Patient educated on: diagnosis, medication risk/benefits and therapeutic strategies Informed Consent: understands and further education needed Reason for continued inpatient stay Substantial Risk for: harm to self, inability to function, rapid decompensation and med/psych decompensation Time Spent With Patient Time: Total time managing care of this patient today ____ minutes.
[2023-10-02 11:05] VITALS: BP 174/94; PULSE 95
[2023-10-02 18:00] VITALS: BP 140/87; PULSE 96; RESP 16; TEMP 36.9; O2SAT 96
--- NOTE | 2023-10-02 20:11 | PC.NURSE ---
Patient BP 174/94 with pulse of 95 at 1100, at 1800 140/87 and pulse of 96. Provider expansion envelope maker hand Kiera Green APRN notified.
[2023-10-02] MEDS: OLANZapine ODT 10 MG TAB.RAPDIS 5 MG TRANSLINGU (20:29)
[2023-10-03 09:05] VITALS: BP 170/99; PULSE 95; RESP 18; TEMP 36.6; O2SAT 97
[2023-10-03] MEDS: Divalproex Sodium 500 MG TABLET.DR 1000 MG PO ×2 (09:16→21:19)
[2023-10-03] MEDS: Paliperidone ER 3 MG TAB.ER.24 PO (09:16)
[2023-10-03] MEDS: Fluconazole 100 MG TABLET 200 MG PO (09:16)
[2023-10-03] MEDS: Doxycycline Monohydrate 100 MG CAPSULE PO ×2 (09:16→21:20)
--- NOTE | 2023-10-03 11:15 | PM.EVENT ---
Event Note Date of Service: 10/03/23 Event Note: Consult placed to evaluation on uncontrolled htn. It does not appear patient has been receiving her atenolol 75 mg daily which she was prescribed outpt. Recommend resuming atenolol 75mg daily. If remains uncontrolled, add lisinopril 10mg daily which will be beneficial for her diabetes. If bp remains uncontrolled, please do not hesitate to reach out. Time Spent With Patient Time: Total time managing care of this patient today ____ minutes.
[2023-10-03 12:27] VITALS: BP 140/98; PULSE 108
[2023-10-03] MEDS: atenoloL 25 MG TABLET 75 MG PO (12:29)
--- NOTE | 2023-10-03 17:36 | P.PNPSI_ITS ---
Subjective Subjective Date of Service: 10/04/23 Reason For Visit: brendon,psychosis Subjective Notes: Conditional Voluntary Healthcare Proxy: No Guardianship: No Medical Problems Affecting Mental Status: No Interim History: Pt seen by hospitalist team to re-start antihypertensive rx. 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 Atenolol re-started. Reports L foot, third toe to be improving with treatment. Discussed with pt Invega Mary. She is willing-asked appropriate questions, discussed with her father and she will begin on 10/04. Reports feeling improved. Lability is greatly decreased, she reports feeling stronger and improved. Discussed discharge for next week, after second injection 10/11 so we can monitor for SE. At this time, family is unsure of who she will live with. We have encouraged father to not have her in the home alone as he remains in SNF treatment s/p surgery. Medication Compliance: Yes Side effects from medications: No Attending Groups: Intermittent Review of Systems Acute medical concerns: No Medical Review of Systems: unchanged Review of Systems Review of Systems Denies Mental Status Exam Mental Status Exam Patient Appearance: Fatigued and Appropriate Patient Orientation: Person, Place, Time and Situation Level of Consciousness: Alert Patient Behavior: Appropriate, Talkative and Good Eye Contact Mood Description: Calm Affect Description: Calm Patient Cognition Impaired: No Ability to Follow Directions: Good Speech Pattern: Spontaneous Speech Memory Description: Remote Impaired Hallucinations: None Delusions: Not Present Perceptual Disturbances: Derealization Thought Process: Goal Oriented Thought Content: positive for Goal Oriented and positive for Suicidal Ideation (denies) Judgement: Fair Diagnostics Vital Signs (24Hr): Vital Signs - 24 hr 10/02/23 18:00 10/03/23 09:05 10/03/23 12:27 Temperature 98.4 F 97.8 F Pulse Rate 96 95 108 H Respiratory Rate 16 18 Blood Pressure 140/87 H 170/99 H 140/98 H Pulse Oximetry 96 97 Oxygen Delivery Method Room Air Room Air BMI result Body Mass Index 59.7 Labs 09/22/23 20:15 09/06/23 10:23 Imaging Radiology Impressions: ITS Impressions KUB X-Ray 09/26/23 10:33 IMPRESSION: * Nonobstructive bowel gas pattern with a moderate colonic stool burden. Pelvic/Transvag US 09/26/23 20:58 IMPRESSION: 1. Limited study due to patient body habitus and inability to tolerate transvaginal imaging. 2. The uterus is normal in size. The endometrial thickness is questionably 0.4 cm. 3. The right ovary is not seen. 4. The left ovary is not seen with certainty. Medications Medications Current Medications Acetaminophen (Acetaminophen 325 Mg Tablet) 650 mg PO Q6H PRN PRN Reason: Headache/Pain Mild Scale (1-3) Last Admin: 09/07/23 16:09 Dose: 650 mg Al Hydroxide/Mg Hydroxide (Magnesium Hydrox/Alum Hydrox 30 Ml Oral.Susp) 30 ml PO Q6H PRN PRN Reason: Heartburn/Nausea Atenolol (Atenolol 25 Mg Tablet) 75 mg PO DAILY [facility]; Protocol Last Admin: 10/03/23 12:29 Dose: 75 mg [place] Butter/Zinc Oxide ([place] Butter/Zinc Oxide Supp.Rect) 1 supp [place] BID PRN PRN Reason: Hemorrhoids Divalproex Sodium (Divalproex Sodium 500 Mg Tablet.Dr) 1,000 mg PO BID [facility] Last Admin: 10/03/23 09:16 Dose: 1,000 mg Doxycycline Monohydrate (Doxycycline Monohydrate 100 Mg Capsule) 100 mg PO Q12H [facility] Stop: 10/07/23 09:01 Last Admin: 10/03/23 09:16 Dose: 100 mg Fluconazole (Fluconazole 100 Mg Tablet) 200 mg PO DAILY [facility] Stop: 10/03/23 21:00 Last Admin: 10/03/23 09:16 Dose: 200 mg Hydroxyzine HCl (Hydroxyzine Hcl 25 Mg Tablet) 25 mg PO Q6H PRN PRN Reason: Anxiety Magnesium Hydroxide (Milk Of Magnesia 30 Ml Oral.Susp) 30 ml PO DAILY PRN PRN Reason: Constipation Nystatin (Nystatin Powder 15 Gm Bottle) 1 appl TOPICAL BID [facility]; Protocol Last Admin: 10/03/23 12:29 Dose: 1 appl Nystatin (Nystatin Cream 15 Gm Tube) 1 appl TOPICAL BID [facility]; Protocol Last Admin: 10/03/23 12:29 Dose: 1 appl Olanzapine (Olanzapine Odt 10 Mg Tab.Rapdis) 10 mg TRANSLINGU TID PRN PRN Reason: agitation Last Admin: 10/01/23 09:20 Dose: 10 mg Paliperidone (Paliperidone Er 3 Mg Tab.Er.24) 3 mg PO DAILY [facility] Last Admin: 10/03/23 09:16 Dose: 3 mg Trazodone HCl (Trazodone Hcl 50 Mg Tablet) 50 mg PO BEDTIME MRX1 PRN PRN Reason: Insomnia Last Admin: 09/22/23 22:45 Dose: 50 mg Allergies Allergies Allergy/AdvReac Type Severity Reaction Status Date / Time kiwi [KIWI] Allergy Mild HIVES Verified 07/07/23 10:07 mold [MOLD EXTRACTS*] Allergy Mild HIVES Verified 07/07/23 10:07 Assessment & Plan Assessment & Plan (1) Bipolar disorder with psychotic features: Status: Acute Code(s): F31.9 - Bipolar disorder, unspecified (2) Schizoaffective disorder, bipolar type: Status: Acute Code(s): F25.0 - Schizoaffective disorder, bipolar type Plan 33 yo female with a history of bipolar disorder with psychosis/schizoaffective disorder presents with acute brendon after stopping medications on 09/03 (Depakote). Plan: Re-start and stabilize regime Olanzapine 10 mg HS When recompensated, discuss THOMAS with pt and family. Collateral contact Family Intervention Medical Management of sx. 09/08/23 Increase Depakote to 1000 mg bid Increase Olanzapine to 20 mg daily Continue Haldol Labs 09/09/23. 09/09/23 Continue current regime 09/10/23 Symptoms of UTI Urine culture, Bactrim DS, Pyridium 09/11/23 Increase in delusional, disinhibited sx today. Haldol 10 mg po x 1 prn On 09/12 increase Haldol to 10 mg tid 09/12/22 Continue tx. 09/13/23 Pt has had a reasonable trial of Haldol with Olanzapine and Valproate which has not seemed to be stabilizing. By history, Olanzapine 40 mg has been effective Plan: Discontinue Haldol Increase Olanzapine to 20 mg bid. 09/15/23 Continue current regime 09/16/2023? Continue?current?regimen 09/18/2023: Continue current regimen and plans 09/19/22: Continue current regime and plan. 09/21/23: Continue tx. Lab has been asked to draw Depakote level for several days. 09/22: Continue current tx plan. 09/23: Valporic acid level 68.9 on 09/22. Continue current tx plan. 09/24 continue current tx plan 09/25 continue current tx plan 09/26/23: Abdominal pain, Ovarian pain-diagnostics are pending. 09/29/23: Decrease Olanzapine to 10 mg HS 09/30/23: Increase Invega to 4.5 mg daily Decrease Olanzapine to 5 mg HS Diflucan for 72 hours for yeast infection sx 10/03/23 Invega Sustenna 234 mg 10/04 Hold PO Invega Discontinue Olanzapine Patient educated on: medication risk/benefits Informed Consent: understands and further education needed Reason for continued inpatient stay Substantial Risk for: rapid decompensation Time Spent With Patient Time: Total time managing care of this patient today ____ minutes.
[2023-10-03 18:46] VITALS: BP 161/73; PULSE 86; RESP 18; TEMP 36.6; O2SAT 95
[2023-10-04 08:45] VITALS: BP 132/91; PULSE 84; RESP 18; TEMP 36.2; O2SAT 95
[2023-10-04] MEDS: atenoloL 25 MG TABLET 75 MG PO (09:01)
[2023-10-04] MEDS: Divalproex Sodium 500 MG TABLET.DR 1000 MG PO ×2 (09:01→19:46)
[2023-10-04] MEDS: Doxycycline Monohydrate 100 MG CAPSULE PO ×2 (09:01→19:46)
[2023-10-04] MEDS: Paliperidone Palmitate 234 MG/1.5 ML SYRINGE IM (09:43)
--- NOTE | 2023-10-04 09:53 | P.PNPSI_ITS ---
Subjective Subjective Date of Service: 10/04/23 Reason For Visit: brendon,psychosis Subjective Notes: Conditional Voluntary Healthcare Proxy: No Guardianship: No Medical Problems Affecting Mental Status: No Interim History: Invega Sustenna given by team. Pt reports it was really not bad Reports feeling well, resting. Discussed discharge after second injection, due 10/11. She is agreeable to this plan. Discussed with pt's father Medication Compliance: Yes Side effects from medications: No Attending Groups: Intermittent Review of Systems Acute medical concerns: No Medical Review of Systems: unchanged Review of Systems Review of Systems Yes all other systems are reviewed and are negative Mental Status Exam Mental Status Exam Patient Appearance: Fatigued and Appropriate Patient Orientation: Person, Place, Time and Situation Level of Consciousness: Alert Patient Behavior: Appropriate, Talkative and Good Eye Contact Mood Description: Calm Affect Description: Calm Patient Cognition Impaired: No Ability to Follow Directions: Good Speech Pattern: Spontaneous Speech Memory Description: Remote Impaired Hallucinations: None Delusions: Not Present Perceptual Disturbances: Derealization Thought Process: Goal Oriented Thought Content: positive for Goal Oriented and positive for Suicidal Ideation (denies) Judgement: Fair Diagnostics Vital Signs (24Hr): Vital Signs - 24 hr 10/03/23 12:27 10/03/23 18:46 10/04/23 08:45 Temperature 97.9 F 97.2 F Pulse Rate 108 H 86 84 Respiratory Rate 18 18 Blood Pressure 140/98 H 161/73 H 132/91 H Pulse Oximetry 95 95 Oxygen Delivery Method Room Air Room Air BMI result Body Mass Index 59.7 Labs 09/22/23 20:15 09/06/23 10:23 Imaging Radiology Impressions: ITS Impressions KUB X-Ray 09/26/23 10:33 IMPRESSION: * Nonobstructive bowel gas pattern with a moderate colonic stool burden. Pelvic/Transvag US 09/26/23 20:58 IMPRESSION: 1. Limited study due to patient body habitus and inability to tolerate transvaginal imaging. 2. The uterus is normal in size. The endometrial thickness is questionably 0.4 cm. 3. The right ovary is not seen. 4. The left ovary is not seen with certainty. Medications Medications Current Medications Acetaminophen (Acetaminophen 325 Mg Tablet) 650 mg PO Q6H PRN PRN Reason: Headache/Pain Mild Scale (1-3) Last Admin: 09/07/23 16:09 Dose: 650 mg Al Hydroxide/Mg Hydroxide (Magnesium Hydrox/Alum Hydrox 30 Ml Oral.Susp) 30 ml PO Q6H PRN PRN Reason: Heartburn/Nausea Atenolol (Atenolol 25 Mg Tablet) 75 mg PO DAILY [facility]; Protocol Last Admin: 10/04/23 09:01 Dose: 75 mg [place] Butter/Zinc Oxide ([place] Butter/Zinc Oxide Supp.Rect) 1 supp IN BID PRN PRN Reason: Hemorrhoids Divalproex Sodium (Divalproex Sodium 500 Mg Tablet.Dr) 1,000 mg PO BID [facility] Last Admin: 10/04/23 09:01 Dose: 1,000 mg Doxycycline Monohydrate (Doxycycline Monohydrate 100 Mg Capsule) 100 mg PO Q12H [facility] Stop: 10/07/23 09:01 Last Admin: 10/04/23 09:01 Dose: 100 mg Hydroxyzine HCl (Hydroxyzine Hcl 25 Mg Tablet) 25 mg PO Q6H PRN PRN Reason: Anxiety Magnesium Hydroxide (Milk Of Magnesia 30 Ml Oral.Susp) 30 ml PO DAILY PRN PRN Reason: Constipation Nystatin (Nystatin Powder 15 Gm Bottle) 1 appl TOPICAL BID [facility]; Protocol Last Admin: 10/04/23 09:44 Dose: 1 appl Nystatin (Nystatin Cream 15 Gm Tube) 1 appl TOPICAL BID [facility]; Protocol Last Admin: 10/04/23 09:01 Dose: Not Given Olanzapine (Olanzapine Odt 10 Mg Tab.Rapdis) 10 mg TRANSLINGU TID PRN PRN Reason: agitation Last Admin: 10/01/23 09:20 Dose: 10 mg Paliperidone (Paliperidone Er 3 Mg Tab.Er.24) 3 mg PO DAILY [facility] Last Admin: 10/04/23 09:01 Dose: Not Given Trazodone HCl (Trazodone Hcl 50 Mg Tablet) 50 mg PO BEDTIME MRX1 PRN PRN Reason: Insomnia Last Admin: 09/22/23 22:45 Dose: 50 mg Allergies Allergies Allergy/AdvReac Type Severity Reaction Status Date / Time kiwi [KIWI] Allergy Mild HIVES Verified 07/07/23 10:07 mold [MOLD EXTRACTS*] Allergy Mild HIVES Verified 07/07/23 10:07 Assessment & Plan Assessment & Plan (1) Bipolar disorder with psychotic features: Status: Acute Code(s): F31.9 - Bipolar disorder, unspecified (2) Schizoaffective disorder, bipolar type: Status: Acute Code(s): F25.0 - Schizoaffective disorder, bipolar type Plan 33 yo female with a history of bipolar disorder with psychosis/schizoaffective disorder presents with acute brendon after stopping medications on 09/03 (Depakote). Plan: Re-start and stabilize regime Olanzapine 10 mg HS When recompensated, discuss THOMAS with pt and family. Collateral contact Family Intervention Medical Management of sx. 09/08/23 Increase Depakote to 1000 mg bid Increase Olanzapine to 20 mg daily Continue Haldol Labs 09/09/23. 09/09/23 Continue current regime 09/10/23 Symptoms of UTI Urine culture, Bactrim DS, Pyridium 09/11/23 Increase in delusional, disinhibited sx today. Haldol 10 mg po x 1 prn On 09/12 increase Haldol to 10 mg tid 09/12/22 Continue tx. 09/13/23 Pt has had a reasonable trial of Haldol with Olanzapine and Valproate which has not seemed to be stabilizing. By history, Olanzapine 40 mg has been effective Plan: Discontinue Haldol Increase Olanzapine to 20 mg bid. 09/15/23 Continue current regime 09/16/2023? Continue?current?regimen 09/18/2023: Continue current regimen and plans 09/19/22: Continue current regime and plan. 09/21/23: Continue tx. Lab has been asked to draw Depakote level for several days. 09/22: Continue current tx plan. 09/23: Valporic acid level 68.9 on 09/22. Continue current tx plan. 09/24 continue current tx plan 09/25 continue current tx plan 09/26/23: Abdominal pain, Ovarian pain-diagnostics are pending. 09/29/23: Decrease Olanzapine to 10 mg HS 09/30/23: Increase Invega to 4.5 mg daily Decrease Olanzapine to 5 mg HS Diflucan for 72 hours for yeast infection sx 10/04/23 Continue current plan. Patient educated on: medication risk/benefits and therapeutic strategies Informed Consent: understands and further education needed Reason for continued inpatient stay Substantial Risk for: rapid decompensation Time Spent With Patient Time: Total time managing care of this patient today ____ minutes.
[2023-10-04 17:05] VITALS: BP 146/80; PULSE 63; RESP 16; TEMP 36.2; O2SAT 99
[2023-10-05 08:00] VITALS: BP 159/76; PULSE 78; RESP 18; TEMP 36.4; O2SAT 98
[2023-10-05] MEDS: Divalproex Sodium 500 MG TABLET.DR 1000 MG PO ×2 (11:15→20:03)
[2023-10-05] MEDS: Doxycycline Monohydrate 100 MG CAPSULE PO ×2 (11:15→20:03)
[2023-10-05] MEDS: atenoloL 25 MG TABLET 75 MG PO (11:15)
--- NOTE | 2023-10-05 13:31 | HO.PSYCHPN ---
Subjective Subjective Date of Service: 10/05/23 Reason For Visit: brendon,psychosis Subjective Notes: Conditional Voluntary Healthcare Proxy: No Guardianship: No Medical Problems Affecting Mental Status: No Interim History: Tolerating THOMAS Sustenna Some daytime sedation, however, pt, when approached is immediately alert, interactive and reports she does not feel overmedicated. Discharge tentative after her second injection 10/12. She continues in agreement. Denies sx of concern. No lability of mood when we meet, clarity in thought process. Medication Compliance: Yes Side effects from medications: No Attending Groups: Intermittent Review of Systems Acute medical concerns: No Medical Review of Systems: unchanged Review of Systems Review of Systems Yes all other systems are reviewed and are negative Mental Status Exam Mental Status Exam Patient Appearance: Fatigued and Appropriate Patient Orientation: Person, Place, Time and Situation Level of Consciousness: Alert Patient Behavior: Appropriate, Talkative and Good Eye Contact Mood Description: Calm Affect Description: Calm Patient Cognition Impaired: No Ability to Follow Directions: Good Speech Pattern: Spontaneous Speech Memory Description: Remote Impaired Hallucinations: None Delusions: Not Present Perceptual Disturbances: Derealization Thought Process: Goal Oriented Thought Content: positive for Goal Oriented and positive for Suicidal Ideation (denies) Judgement: Fair Diagnostics Vital Signs (24Hr): Vital Signs - 24 hr 10/04/23 17:05 10/05/23 08:00 Temperature 97.2 F 97.5 F Pulse Rate 63 78 Respiratory Rate 16 18 Blood Pressure 146/80 H 159/76 H Pulse Oximetry 99 98 Oxygen Delivery Method Room Air Room Air BMI result Body Mass Index 59.7 Labs 09/22/23 20:15 09/06/23 10:23 Imaging Radiology Impressions: ITS Impressions KUB X-Ray 09/26/23 10:33 IMPRESSION: * Nonobstructive bowel gas pattern with a moderate colonic stool burden. Pelvic/Transvag US 09/26/23 20:58 IMPRESSION: 1. Limited study due to patient body habitus and inability to tolerate transvaginal imaging. 2. The uterus is normal in size. The endometrial thickness is questionably 0.4 cm. 3. The right ovary is not seen. 4. The left ovary is not seen with certainty. Medications Medications Current Medications Acetaminophen (Acetaminophen 325 Mg Tablet) 650 mg PO Q6H PRN PRN Reason: Headache/Pain Mild Scale (1-3) Last Admin: 09/07/23 16:09 Dose: 650 mg Al Hydroxide/Mg Hydroxide (Magnesium Hydrox/Alum Hydrox 30 Ml Oral.Susp) 30 ml PO Q6H PRN PRN Reason: Heartburn/Nausea Atenolol (Atenolol 25 Mg Tablet) 75 mg PO DAILY [facility]; Protocol Last Admin: 10/05/23 11:15 Dose: 75 mg [place] Butter/Zinc Oxide ([place] Butter/Zinc Oxide Supp.Rect) 1 supp [place] BID PRN PRN Reason: Hemorrhoids Divalproex Sodium (Divalproex Sodium 500 Mg Tablet.Dr) 1,000 mg PO BID [facility] Last Admin: 10/05/23 11:15 Dose: 1,000 mg Doxycycline Monohydrate (Doxycycline Monohydrate 100 Mg Capsule) 100 mg PO Q12H [facility] Stop: 10/07/23 09:01 Last Admin: 10/05/23 11:15 Dose: 100 mg Hydroxyzine HCl (Hydroxyzine Hcl 25 Mg Tablet) 25 mg PO Q6H PRN PRN Reason: Anxiety Magnesium Hydroxide (Milk Of Magnesia 30 Ml Oral.Susp) 30 ml PO DAILY PRN PRN Reason: Constipation Nystatin (Nystatin Powder 15 Gm Bottle) 1 appl TOPICAL BID [facility]; Protocol Last Admin: 10/04/23 19:47 Dose: Not Given Nystatin (Nystatin Cream 15 Gm Tube) 1 appl TOPICAL BID [facility]; Protocol Last Admin: 10/04/23 19:47 Dose: Not Given Olanzapine (Olanzapine Odt 10 Mg Tab.Rapdis) 10 mg TRANSLINGU TID PRN PRN Reason: agitation Last Admin: 10/01/23 09:20 Dose: 10 mg Paliperidone (Paliperidone Er 3 Mg Tab.Er.24) 3 mg PO DAILY [facility] Last Admin: 10/04/23 09:01 Dose: Not Given Trazodone HCl (Trazodone Hcl 50 Mg Tablet) 50 mg PO BEDTIME MRX1 PRN PRN Reason: Insomnia Last Admin: 09/22/23 22:45 Dose: 50 mg Allergies Allergies Allergy/AdvReac Type Severity Reaction Status Date / Time kiwi [KIWI] Allergy Mild HIVES Verified 07/07/23 10:07 mold [MOLD EXTRACTS*] Allergy Mild HIVES Verified 07/07/23 10:07 Assessment & Plan Assessment & Plan (1) Bipolar disorder with psychotic features: Status: Acute Code(s): F31.9 - Bipolar disorder, unspecified (2) Schizoaffective disorder, bipolar type: Status: Acute Code(s): F25.0 - Schizoaffective disorder, bipolar type Plan 33 yo female with a history of bipolar disorder with psychosis/schizoaffective disorder presents with acute brendon after stopping medications on 09/03 (Depakote). Plan: Re-start and stabilize regime Olanzapine 10 mg HS When recompensated, discuss THOMAS with pt and family. Collateral contact Family Intervention Medical Management of sx. 09/08/23 Increase Depakote to 1000 mg bid Increase Olanzapine to 20 mg daily Continue Haldol Labs 09/09/23. 09/09/23 Continue current regime 09/10/23 Symptoms of UTI Urine culture, Bactrim DS, Pyridium 09/11/23 Increase in delusional, disinhibited sx today. Haldol 10 mg po x 1 prn On 09/12 increase Haldol to 10 mg tid 09/12/22 Continue tx. 09/13/23 Pt has had a reasonable trial of Haldol with Olanzapine and Valproate which has not seemed to be stabilizing. By history, Olanzapine 40 mg has been effective Plan: Discontinue Haldol Increase Olanzapine to 20 mg bid. 09/15/23 Continue current regime 09/16/2023? Continue?current?regimen 09/18/2023: Continue current regimen and plans 09/19/22: Continue current regime and plan. 09/21/23: Continue tx. Lab has been asked to draw Depakote level for several days. 09/22: Continue current tx plan. 09/23: Valporic acid level 68.9 on 09/22. Continue current tx plan. 09/24 continue current tx plan 09/25 continue current tx plan 09/26/23: Abdominal pain, Ovarian pain-diagnostics are pending. 09/29/23: Decrease Olanzapine to 10 mg HS 09/30/23: Increase Invega to 4.5 mg daily Decrease Olanzapine to 5 mg HS Diflucan for 72 hours for yeast infection sx 10/04/23 Continue current plan. 10/05/23 Continue tx. Patient educated on: medication risk/benefits and therapeutic strategies Informed Consent: understands and further education needed Reason for continued inpatient stay Substantial Risk for: rapid decompensation Time Spent With Patient Time: Total time managing care of this patient today ____ minutes.
[2023-10-06 07:00] VITALS: BMI 59.6
[2023-10-06 09:10] VITALS: BP 139/89; PULSE 86; RESP 16; TEMP 36.2
[2023-10-06] MEDS: atenoloL 25 MG TABLET 75 MG PO (09:11)
[2023-10-06] MEDS: Doxycycline Monohydrate 100 MG CAPSULE PO ×2 (09:11→19:46)
[2023-10-06] MEDS: Divalproex Sodium 500 MG TABLET.DR 1000 MG PO ×2 (09:11→19:46)
--- NOTE | 2023-10-06 17:21 | HO.PSYCHPN ---
Subjective Subjective Date of Service: 10/06/23 Reason For Visit: brendon,psychosis Subjective Notes: Conditional Voluntary Healthcare Proxy: No Guardianship: No Medical Problems Affecting Mental Status: No Interim History: Visiting with family who report they find her improved and are preparing for discharge. Care discussed with pt's father on 10/05 p.m. He is in agreement with plan. Discussed pt's needs upon discharge. He will be returning from rehab and currently will require wheelchair and assistance. Discussed with father and team that pt will not be able to consistently help him and to plan for added support for himself and we will plan for support for her ([facility]). Discussed with pt who agrees. She asks if her dog can get extra support as well. Discussed with pt. Will review with family what needs are. Medication Compliance: Yes Side effects from medications: No Attending Groups: Intermittent Review of Systems Acute medical concerns: No Medical Review of Systems: unchanged Review of Systems Review of Systems Yes all other systems are reviewed and are negative Mental Status Exam Mental Status Exam Patient Appearance: Appropriate Patient Orientation: Person, Place, Time and Situation Level of Consciousness: Alert Patient Behavior: Appropriate, Talkative and Good Eye Contact Mood Description: Calm Affect Description: Calm Patient Cognition Impaired: No Ability to Follow Directions: Good Speech Pattern: Spontaneous Speech Memory Description: Remote Impaired Hallucinations: None Delusions: Not Present Thought Process: Goal Oriented Thought Content: positive for Goal Oriented and positive for Suicidal Ideation (denies) Judgement: Good Diagnostics Vital Signs (24Hr): Vital Signs - 24 hr 10/06/23 09:10 Temperature 97.2 F Pulse Rate 86 Respiratory Rate 16 Blood Pressure 139/89 Oxygen Delivery Method Room Air BMI result Body Mass Index 59.6 Labs 09/22/23 20:15 09/06/23 10:23 Imaging Radiology Impressions: ITS Impressions KUB X-Ray 09/26/23 10:33 IMPRESSION: * Nonobstructive bowel gas pattern with a moderate colonic stool burden. Pelvic/Transvag US 09/26/23 20:58 IMPRESSION: 1. Limited study due to patient body habitus and inability to tolerate transvaginal imaging. 2. The uterus is normal in size. The endometrial thickness is questionably 0.4 cm. 3. The right ovary is not seen. 4. The left ovary is not seen with certainty. Medications Medications Current Medications Acetaminophen (Acetaminophen 325 Mg Tablet) 650 mg PO Q6H PRN PRN Reason: Headache/Pain Mild Scale (1-3) Last Admin: 09/07/23 16:09 Dose: 650 mg Al Hydroxide/Mg Hydroxide (Magnesium Hydrox/Alum Hydrox 30 Ml Oral.Susp) 30 ml PO Q6H PRN PRN Reason: Heartburn/Nausea Atenolol (Atenolol 25 Mg Tablet) 75 mg PO DAILY [facility]; Protocol Last Admin: 10/06/23 09:11 Dose: 75 mg [place] Butter/Zinc Oxide ([place] Butter/Zinc Oxide Supp.Rect) 1 supp [place] BID PRN PRN Reason: Hemorrhoids Divalproex Sodium (Divalproex Sodium 500 Mg Tablet.Dr) 1,000 mg PO BID [facility] Last Admin: 10/06/23 09:11 Dose: 1,000 mg Doxycycline Monohydrate (Doxycycline Monohydrate 100 Mg Capsule) 100 mg PO Q12H [facility] Stop: 10/07/23 09:01 Last Admin: 10/06/23 09:11 Dose: 100 mg Hydroxyzine HCl (Hydroxyzine Hcl 25 Mg Tablet) 25 mg PO Q6H PRN PRN Reason: Anxiety Magnesium Hydroxide (Milk Of Magnesia 30 Ml Oral.Susp) 30 ml PO DAILY PRN PRN Reason: Constipation Nystatin (Nystatin Powder 15 Gm Bottle) 1 appl TOPICAL BID [facility]; Protocol Last Admin: 10/06/23 14:29 Dose: 1 appl Nystatin (Nystatin Cream 15 Gm Tube) 1 appl TOPICAL BID [facility]; Protocol Last Admin: 10/06/23 08:51 Dose: Not Given Olanzapine (Olanzapine Odt 10 Mg Tab.Rapdis) 10 mg TRANSLINGU TID PRN PRN Reason: agitation Last Admin: 10/01/23 09:20 Dose: 10 mg Paliperidone (Paliperidone Er 3 Mg Tab.Er.24) 3 mg PO DAILY [facility] Last Admin: 10/04/23 09:01 Dose: Not Given Trazodone HCl (Trazodone Hcl 50 Mg Tablet) 50 mg PO BEDTIME MRX1 PRN PRN Reason: Insomnia Last Admin: 09/22/23 22:45 Dose: 50 mg Allergies Allergies Allergy/AdvReac Type Severity Reaction Status Date / Time kiwi [KIWI] Allergy Mild HIVES Verified 07/07/23 10:07 mold [MOLD EXTRACTS*] Allergy Mild HIVES Verified 07/07/23 10:07 Assessment & Plan Assessment & Plan (1) Bipolar disorder with psychotic features: Status: Acute Code(s): F31.9 - Bipolar disorder, unspecified (2) Schizoaffective disorder, bipolar type: Status: Acute Code(s): F25.0 - Schizoaffective disorder, bipolar type Plan 33 yo female with a history of bipolar disorder with psychosis/schizoaffective disorder presents with acute brendon after stopping medications on 09/03 (Depakote). Plan: Re-start and stabilize regime Olanzapine 10 mg HS When recompensated, discuss THOMAS with pt and family. Collateral contact Family Intervention Medical Management of sx. 09/08/23 Increase Depakote to 1000 mg bid Increase Olanzapine to 20 mg daily Continue Haldol Labs 09/09/23. 09/09/23 Continue current regime 09/10/23 Symptoms of UTI Urine culture, Bactrim DS, Pyridium 09/11/23 Increase in delusional, disinhibited sx today. Haldol 10 mg po x 1 prn On 09/12 increase Haldol to 10 mg tid 09/12/22 Continue tx. 09/13/23 Pt has had a reasonable trial of Haldol with Olanzapine and Valproate which has not seemed to be stabilizing. By history, Olanzapine 40 mg has been effective Plan: Discontinue Haldol Increase Olanzapine to 20 mg bid. 09/15/23 Continue current regime 09/16/2023? Continue?current?regimen 09/18/2023: Continue current regimen and plans 09/19/22: Continue current regime and plan. 09/21/23: Continue tx. Lab has been asked to draw Depakote level for several days. 09/22: Continue current tx plan. 09/23: Valporic acid level 68.9 on 09/22. Continue current tx plan. 09/24 continue current tx plan 09/25 continue current tx plan 09/26/23: Abdominal pain, Ovarian pain-diagnostics are pending. 09/29/23: Decrease Olanzapine to 10 mg HS 09/30/23: Increase Invega to 4.5 mg daily Decrease Olanzapine to 5 mg HS Diflucan for 72 hours for yeast infection sx 10/04/23 Continue current plan. 10/06/23 Continue tx Informed Consent: understands Reason for continued inpatient stay Substantial Risk for: rapid decompensation Time Spent With Patient Time: Total time managing care of this patient today ____ minutes.
[2023-10-06 19:15] VITALS: BP 136/63; PULSE 85; RESP 16; TEMP 36.3; O2SAT 96
[2023-10-07 08:53] VITALS: BP 132/99; PULSE 89; RESP 18; TEMP 36.6; O2SAT 95
[2023-10-07] MEDS: Divalproex Sodium 250 MG TABLET.DR 750 MG PO ×2 (08:56→20:11)
[2023-10-07] MEDS: atenoloL 25 MG TABLET 75 MG PO (08:57)
[2023-10-07] MEDS: Doxycycline Monohydrate 100 MG CAPSULE PO (08:57)
--- NOTE | 2023-10-07 16:13 | P.PNPSI_ITS ---
Subjective Subjective Date of Service: 10/07/23 Reason For Visit: brendon,psychosis Subjective Notes: Conditional Voluntary Healthcare Proxy: No Guardianship: No Medical Problems Affecting Mental Status: No Interim History: Pt continues to report improvement. We have decreased Valproate from 2000 mg daily to 1500 mg daily to assist in decrease in daytime sedation. She denies SE from Invega Sustenna THOMAS. Team report LLAbd an area of painful induration that may need I and D. Hospitalist consult requested. Medication Compliance: Yes Side effects from medications: No Attending Groups: Intermittent Review of Systems Acute medical concerns: No Medical Review of Systems: unchanged Review of Systems Review of Systems LL Abd, area of induration with pain. Mental Status Exam Mental Status Exam Patient Appearance: Appropriate Patient Orientation: Person, Place, Time and Situation Level of Consciousness: Alert Patient Behavior: Appropriate, Talkative and Good Eye Contact Mood Description: Calm Affect Description: Calm Patient Cognition Impaired: No Ability to Follow Directions: Good Speech Pattern: Spontaneous Speech Memory Description: Remote Impaired Hallucinations: None Delusions: Not Present Thought Process: Goal Oriented Thought Content: positive for Goal Oriented and positive for Suicidal Ideation (denies) Judgement: Good Diagnostics Vital Signs (24Hr): Vital Signs - 24 hr 10/06/23 19:15 10/07/23 08:53 Temperature 97.3 F 97.9 F Pulse Rate 85 89 Respiratory Rate 16 18 Blood Pressure 136/63 132/99 H Pulse Oximetry 96 95 Oxygen Delivery Method Room Air Room Air BMI result Body Mass Index 59.6 Labs 09/22/23 20:15 09/06/23 10:23 Imaging Radiology Impressions: ITS Impressions KUB X-Ray 09/26/23 10:33 IMPRESSION: * Nonobstructive bowel gas pattern with a moderate colonic stool burden. Pelvic/Transvag US 09/26/23 20:58 IMPRESSION: 1. Limited study due to patient body habitus and inability to tolerate transvaginal imaging. 2. The uterus is normal in size. The endometrial thickness is questionably 0.4 cm. 3. The right ovary is not seen. 4. The left ovary is not seen with certainty. Medications Medications Current Medications Acetaminophen (Acetaminophen 325 Mg Tablet) 650 mg PO Q6H PRN PRN Reason: Headache/Pain Mild Scale (1-3) Last Admin: 09/07/23 16:09 Dose: 650 mg Al Hydroxide/Mg Hydroxide (Magnesium Hydrox/Alum Hydrox 30 Ml Oral.Susp) 30 ml PO Q6H PRN PRN Reason: Heartburn/Nausea Atenolol (Atenolol 25 Mg Tablet) 75 mg PO DAILY [facility]; Protocol Last Admin: 10/07/23 08:57 Dose: 75 mg [place] Butter/Zinc Oxide ([place] Butter/Zinc Oxide Supp.Rect) 1 supp [place] BID PRN PRN Reason: Hemorrhoids Divalproex Sodium (Divalproex Sodium 250 Mg Tablet.Dr) 750 mg PO BID [facility] Last Admin: 10/07/23 08:56 Dose: 750 mg Hydroxyzine HCl (Hydroxyzine Hcl 25 Mg Tablet) 25 mg PO Q6H PRN PRN Reason: Anxiety Magnesium Hydroxide (Milk Of Magnesia 30 Ml Oral.Susp) 30 ml PO DAILY PRN PRN Reason: Constipation Nystatin (Nystatin Powder 15 Gm Bottle) 1 appl TOPICAL BID [facility]; Protocol Last Admin: 10/07/23 14:52 Dose: 1 appl Nystatin (Nystatin Cream 15 Gm Tube) 1 appl TOPICAL BID [facility]; Protocol Last Admin: 10/07/23 14:52 Dose: 1 appl Olanzapine (Olanzapine Odt 10 Mg Tab.Rapdis) 10 mg TRANSLINGU TID PRN PRN Reason: agitation Last Admin: 10/01/23 09:20 Dose: 10 mg Paliperidone (Paliperidone Er 3 Mg Tab.Er.24) 3 mg PO DAILY [facility] Last Admin: 10/04/23 09:01 Dose: Not Given Trazodone HCl (Trazodone Hcl 50 Mg Tablet) 50 mg PO BEDTIME MRX1 PRN PRN Reason: Insomnia Last Admin: 09/22/23 22:45 Dose: 50 mg Allergies Allergies Allergy/AdvReac Type Severity Reaction Status Date / Time kiwi [KIWI] Allergy Mild HIVES Verified 07/07/23 10:07 mold [MOLD EXTRACTS*] Allergy Mild HIVES Verified 07/07/23 10:07 Assessment & Plan Assessment & Plan (1) Bipolar disorder with psychotic features: Status: Acute Code(s): F31.9 - Bipolar disorder, unspecified (2) Schizoaffective disorder, bipolar type: Status: Acute Code(s): F25.0 - Schizoaffective disorder, bipolar type Plan 33 yo female with a history of bipolar disorder with psychosis/schizoaffective disorder presents with acute brendon after stopping medications on 09/03 (Depakote). Plan: Re-start and stabilize regime Olanzapine 10 mg HS When recompensated, discuss THOMAS with pt and family. Collateral contact Family Intervention Medical Management of sx. 09/08/23 Increase Depakote to 1000 mg bid Increase Olanzapine to 20 mg daily Continue Haldol Labs 09/09/23. 09/09/23 Continue current regime 09/10/23 Symptoms of UTI Urine culture, Bactrim DS, Pyridium 09/11/23 Increase in delusional, disinhibited sx today. Haldol 10 mg po x 1 prn On 09/12 increase Haldol to 10 mg tid 09/12/22 Continue tx. 09/13/23 Pt has had a reasonable trial of Haldol with Olanzapine and Valproate which has not seemed to be stabilizing. By history, Olanzapine 40 mg has been effective Plan: Discontinue Haldol Increase Olanzapine to 20 mg bid. 09/15/23 Continue current regime 09/16/2023? Continue?current?regimen 09/18/2023: Continue current regimen and plans 09/19/22: Continue current regime and plan. 09/21/23: Continue tx. Lab has been asked to draw Depakote level for several days. 09/22: Continue current tx plan. 09/23: Valporic acid level 68.9 on 09/22. Continue current tx plan. 09/24 continue current tx plan 09/25 continue current tx plan 09/26/23: Abdominal pain, Ovarian pain-diagnostics are pending. 09/29/23: Decrease Olanzapine to 10 mg HS 09/30/23: Increase Invega to 4.5 mg daily Decrease Olanzapine to 5 mg HS Diflucan for 72 hours for yeast infection sx 10/04/23 Continue current plan. 10/06/23 Continue tx 10/07/23 Continue tx Hospitalist consult, LLAbd area of induration Informed Consent: understands Reason for continued inpatient stay Substantial Risk for: rapid decompensation Time Spent With Patient Time: Total time managing care of this patient today ____ minutes.
[2023-10-07 17:15] VITALS: BP 158/104; PULSE 88; RESP 16; TEMP 36.2; O2SAT 95
[2023-10-07 19:01] VITALS: BP 135/89; PULSE 88
--- NOTE | 2023-10-07 21:43 | PC.NURSE ---
Hospitalist, Dr. Pineda, notified of consult for LL abdomen induration w/ pain ? abscess @ [id number].
[2023-10-08 08:31] VITALS: BP 133/88; PULSE 87; RESP 16; TEMP 36.3; O2SAT 96
[2023-10-08] MEDS: Divalproex Sodium 250 MG TABLET.DR 750 MG PO ×2 (08:34→21:31)
[2023-10-08] MEDS: atenoloL 25 MG TABLET 75 MG PO (08:34)
--- NOTE | 2023-10-08 10:56 | HO.PSYCHPN ---
Subjective Subjective Date of Service: 10/08/23 Reason For Visit: brendon,psychosis Interim History: Met with patient. Discussed with Nursing. Chart reviewed. Has been attending some groups. Sleep okay. Patient reports feeling better with medications and looking forward to getting her 2nd long-acting injectable injection hopefully discharge soon afterwards. No overt delusions. No SI or HI. No med concerns. Medication Compliance: Yes Side effects from medications: No Attending Groups: Yes Review of Systems Acute medical concerns: No Appreciate hospitalist consult today and recommendations Review of Systems Review of Systems Yes all other systems are reviewed and are negative Mental Status Exam Mental Status Exam Patient Appearance: Appropriate Patient Orientation: Person, Place, Time and Situation Level of Consciousness: Alert Patient Behavior: Appropriate, Talkative and Good Eye Contact Mood Description: Calm Affect Description: Calm Patient Cognition Impaired: No Ability to Follow Directions: Good Speech Pattern: Spontaneous Speech Hallucinations: None Delusions: Not Present Thought Process: Goal Oriented Thought Content: positive for Goal Oriented and positive for Suicidal Ideation (denies) Judgement: Good Diagnostics Vital Signs (24Hr): Vital Signs - 24 hr 10/07/23 17:15 10/07/23 19:01 10/08/23 08:31 Temperature 97.2 F 97.3 F Pulse Rate 88 88 87 Respiratory Rate 16 16 Blood Pressure 158/104 H 135/89 133/88 Pulse Oximetry 95 96 Oxygen Delivery Method Room Air Room Air BMI result Body Mass Index 59.6 Labs 09/22/23 20:15 09/06/23 10:23 Imaging Radiology Impressions: ITS Impressions KUB X-Ray 09/26/23 10:33 IMPRESSION: * Nonobstructive bowel gas pattern with a moderate colonic stool burden. Pelvic/Transvag US 09/26/23 20:58 IMPRESSION: 1. Limited study due to patient body habitus and inability to tolerate transvaginal imaging. 2. The uterus is normal in size. The endometrial thickness is questionably 0.4 cm. 3. The right ovary is not seen. 4. The left ovary is not seen with certainty. Medications Medications Current Medications Acetaminophen (Acetaminophen 325 Mg Tablet) 650 mg PO Q6H PRN PRN Reason: Headache/Pain Mild Scale (1-3) Last Admin: 09/07/23 16:09 Dose: 650 mg Al Hydroxide/Mg Hydroxide (Magnesium Hydrox/Alum Hydrox 30 Ml Oral.Susp) 30 ml PO Q6H PRN PRN Reason: Heartburn/Nausea Atenolol (Atenolol 25 Mg Tablet) 75 mg PO DAILY [facility]; Protocol Last Admin: 10/08/23 08:34 Dose: 75 mg [place] Butter/Zinc Oxide ([place] Butter/Zinc Oxide Supp.Rect) 1 supp [place] BID PRN PRN Reason: Hemorrhoids Divalproex Sodium (Divalproex Sodium 250 Mg Tablet.Dr) 750 mg PO BID [facility] Last Admin: 10/08/23 08:34 Dose: 750 mg Hydroxyzine HCl (Hydroxyzine Hcl 25 Mg Tablet) 25 mg PO Q6H PRN PRN Reason: Anxiety Magnesium Hydroxide (Milk Of Magnesia 30 Ml Oral.Susp) 30 ml PO DAILY PRN PRN Reason: Constipation Nystatin (Nystatin Powder 15 Gm Bottle) 1 appl TOPICAL BID [facility]; Protocol Last Admin: 10/07/23 20:22 Dose: 1 appl Nystatin (Nystatin Cream 15 Gm Tube) 1 appl TOPICAL BID [facility]; Protocol Last Admin: 10/07/23 20:22 Dose: 1 appl Olanzapine (Olanzapine Odt 10 Mg Tab.Rapdis) 10 mg TRANSLINGU TID PRN PRN Reason: agitation Last Admin: 10/01/23 09:20 Dose: 10 mg Paliperidone (Paliperidone Er 3 Mg Tab.Er.24) 3 mg PO DAILY [facility] Last Admin: 10/04/23 09:01 Dose: Not Given Trazodone HCl (Trazodone Hcl 50 Mg Tablet) 50 mg PO BEDTIME MRX1 PRN PRN Reason: Insomnia Last Admin: 09/22/23 22:45 Dose: 50 mg Allergies Allergies Allergy/AdvReac Type Severity Reaction Status Date / Time kiwi [KIWI] Allergy Mild HIVES Verified 07/07/23 10:07 mold [MOLD EXTRACTS*] Allergy Mild HIVES Verified 07/07/23 10:07 Assessment & Plan Assessment & Plan (1) Bipolar disorder with psychotic features: Status: Acute Code(s): F31.9 - Bipolar disorder, unspecified (2) Schizoaffective disorder, bipolar type: Status: Acute Code(s): F25.0 - Schizoaffective disorder, bipolar type Plan 33 yo female with a history of bipolar disorder with psychosis/schizoaffective disorder presents with acute brendon after stopping medications on 09/03 (Depakote). Plan: Re-start and stabilize regime Olanzapine 10 mg HS When recompensated, discuss THOMAS with pt and family. Collateral contact Family Intervention Medical Management of sx. 09/08/23 Increase Depakote to 1000 mg bid Increase Olanzapine to 20 mg daily Continue Haldol Labs 09/09/23. 09/09/23 Continue current regime 09/10/23 Symptoms of UTI Urine culture, Bactrim DS, Pyridium 09/11/23 Increase in delusional, disinhibited sx today. Haldol 10 mg po x 1 prn On 09/12 increase Haldol to 10 mg tid 09/12/22 Continue tx. 09/13/23 Pt has had a reasonable trial of Haldol with Olanzapine and Valproate which has not seemed to be stabilizing. By history, Olanzapine 40 mg has been effective Plan: Discontinue Haldol Increase Olanzapine to 20 mg bid. 09/15/23 Continue current regime 09/16/2023? Continue?current?regimen 09/18/2023: Continue current regimen and plans 09/19/22: Continue current regime and plan. 09/21/23: Continue tx. Lab has been asked to draw Depakote level for several days. 09/22: Continue current tx plan. 09/23: Valporic acid level 68.9 on 09/22. Continue current tx plan. 09/24 continue current tx plan 09/25 continue current tx plan 09/26/23: Abdominal pain, Ovarian pain-diagnostics are pending. 09/29/23: Decrease Olanzapine to 10 mg HS 09/30/23: Increase Invega to 4.5 mg daily Decrease Olanzapine to 5 mg HS Diflucan for 72 hours for yeast infection sx 10/04/23 Continue current plan. 10/06/23 Continue tx 10/07/23 Continue tx Hospitalist consult, LLAbd area of induration 10/08: no changes. Appreciate hospitalist consult today and recommendations Reason for continued inpatient stay Substantial Risk for: rapid decompensation Time Spent With Patient Time: Total time managing care of this patient today ____ minutes.
--- NOTE | 2023-10-08 13:02 | HO.PM.IMCN ---
History of Present Illness Data of Consult Service Date: 10/08/23 Requesting physician: Rianna Santos Primary Care Provider: Jose Estes MD HPI Reason for consult: llq area of induration 33 year old female with history of diet controlled type 2 dm, htn, hld, factor 5 deficiency, asthma, morbid obesity with bmi >59, and bipolar disorder admitted to psychiatry with consult placed to hospitalist service for evaluation of LLQ induration with question of abscess. The patient reports she has been treated with topical antifungals since arrival for yeast infection. Does not feel this has gotten any better or worse. Denies pain, pruritus. Some drainage from LLQ. Afebile, VSS. Review of Systems Review of Systems: Yes all other systems are reviewed and are negative [facility] Medical History (Updated 10/08/23 @ 13:07 by ELIGIO Shaver) Hidradenitis suppurativa Schizoaffective disorder, bipolar type Hypertension, essential Uncontrolled type 2 diabetes mellitus with hyperglycemia Leg edema Obesity, morbid Asthma Factor 5 Leiden mutation, heterozygous Seasonal asthma Family History Father HTN (hypertension) Diabetes mellitus Mother Afib Maternal Grandfather No problems noted. Maternal Grandmother No problems noted. Paternal Grandmother Breast cancer Paternal Grandfather No problems noted. Sister No problems noted. Surgical History History of ovarian cyst History of wisdom tooth extraction Social History Household Members: Other Household Members Other:: Father Housing: House Do you presently have visiting nurse or other home services: No Unable to assess alcohol history related to: Unknown Alcohol intake: never Comment: Independent Patient Tobacco Use Status: Former Tobacco user Tobacco use type: Cigarette Years Smoked: 3 yrs Smoked in Last 30 Days: No e-Cigarette/Vaping Use: Never Used Patient Given Instructions on How to Stop Smoking: Yes Date Education Initiated: 09/07/23 Second Hand Smoke Exposure: No (Unknown; pt unable to participate due to mental status.) Use of substances other than those prescribed or required for medical reasons: Unknown Last Used Substance: Unknown Currently Displaying Signs/Symptoms of Drug Intoxication Withdrawal: No Any prior treatment program specific to substance use: No (Pt declined to provide urine for UTOX) Spiritual Healthcare Practices: None [employer]ism Healthcare Practices: None Cultural Healthcare Practices: None Advance Directives: Yes Advance Directives Information Provided: Yes Advance Directives on File: No Do you have thoughts of harming others: None Do you have a plan to hurt others: No Plan Recently lost weight without trying: No Eating poorly because of decreased appetite: No Nutrition Risks: No Nutritional Risk Patient : No : No Poor oral hygiene: No service: No Current occupational status: employed Sexual orientation: Straight/Heterosexual Cognitive needs: No Hearing needs: No Vision needs: Yes Meds Allergies Allergy/AdvReac Type Severity Reaction Status Date / Time kiwi [KIWI] Allergy Mild HIVES Verified 07/07/23 10:07 mold [MOLD EXTRACTS*] Allergy Mild HIVES Verified 07/07/23 10:07 Active Medications: Current Medications Acetaminophen (Acetaminophen 325 Mg Tablet) 650 mg PO Q6H PRN PRN Reason: Headache/Pain Mild Scale (1-3) Last Admin: 09/07/23 16:09 Dose: 650 mg Al Hydroxide/Mg Hydroxide (Magnesium Hydrox/Alum Hydrox 30 Ml Oral.Susp) 30 ml PO Q6H PRN PRN Reason: Heartburn/Nausea Atenolol (Atenolol 25 Mg Tablet) 75 mg PO DAILY [facility]; Protocol Last Admin: 10/08/23 08:34 Dose: 75 mg [place] Butter/Zinc Oxide ([place] Butter/Zinc Oxide Supp.Rect) 1 supp [place] BID PRN PRN Reason: Hemorrhoids Divalproex Sodium (Divalproex Sodium 250 Mg Tablet.Dr) 750 mg PO BID [facility] Last Admin: 10/08/23 08:34 Dose: 750 mg Doxycycline Monohydrate (Doxycycline Monohydrate 100 Mg Capsule) 100 mg PO Q12H [facility] Stop: 10/15/23 01:01 Hydroxyzine HCl (Hydroxyzine Hcl 25 Mg Tablet) 25 mg PO Q6H PRN PRN Reason: Anxiety Magnesium Hydroxide (Milk Of Magnesia 30 Ml Oral.Susp) 30 ml PO DAILY PRN PRN Reason: Constipation Metformin HCl (Metformin Hcl Er 500 Mg Tab.Er.24h) 500 mg PO DAILY [facility] Nystatin (Nystatin Powder 15 Gm Bottle) 1 appl TOPICAL BID [facility]; Protocol Last Admin: 10/08/23 13:00 Dose: Not Given Nystatin (Nystatin Cream 15 Gm Tube) 1 appl TOPICAL BID [facility]; Protocol Last Admin: 10/08/23 13:00 Dose: Not Given Olanzapine (Olanzapine Odt 10 Mg Tab.Rapdis) 10 mg TRANSLINGU TID PRN PRN Reason: agitation Last Admin: 10/01/23 09:20 Dose: 10 mg Paliperidone (Paliperidone Er 3 Mg Tab.Er.24) 3 mg PO DAILY [facility] Last Admin: 10/04/23 09:01 Dose: Not Given Trazodone HCl (Trazodone Hcl 50 Mg Tablet) 50 mg PO BEDTIME MRX1 PRN PRN Reason: Insomnia Last Admin: 09/22/23 22:45 Dose: 50 mg Physical Exam Vital Signs and Narrative: Vital Signs: Last Vital Signs Temp 97.3 F 10/08/23 08:31 Pulse 87 10/08/23 08:31 Resp 16 10/08/23 08:31 BP 133/88 10/08/23 08:31 Pulse Ox 96 10/08/23 08:31 O2 Del Method Room Air 10/08/23 08:31 BMI result Body Mass Index 59.6 Constitutional - Awake and Alert, No apparent distress Eyes - PERRLA, EOMI Skin - Warm/Dry. Induration under abdominal pannus LLQ with seropurulent drainage expressed. No fluctuance, warmth. Dusky erythema with multple scarred lesions under R breast without drainage Results Labs 09/22/23 20:15 09/06/23 10:23 Assessment and Plan (1) Hidradenitis suppurativa: Status: Acute Plan 33 year old female with history of diet controlled type 2 dm, htn, hld, factor 5 deficiency, asthma, morbid obesity with bmi >59, and bipolar disorder admitted to psychiatry with consult placed to hospitalist service for evaluation of LLQ induration with question of abscess. #Hidradenitis supprativa -no tunnelling observed -recommend doxycycline 100mg bid -no indication for I&D at this time given active drainage. cover with dry bandage -add metformin 500mg XR for antiadrogenergic properties and decrease insulin resistance -check poc glucose daily given known history of type 2 diabetes -outpt follow up with pcp Thank you for allowing me to participate in this consult. Signing off at this time. Please do not hesitate to call for further questions.
[2023-10-08] MEDS: metFORMIN HCl ER 500 MG TAB.ER.24H PO (15:46)
[2023-10-08] MEDS: Doxycycline Monohydrate 100 MG CAPSULE PO (15:48)
[2023-10-08 18:00] VITALS: BP 131/88; PULSE 88; RESP 16; TEMP 36.2; O2SAT 96
[2023-10-09 08:14] LABS: Creatinine Clr Calc Pharmacy 228.4; Estimated Glomerular Filt Rate > 60
[2023-10-09 08:34] VITALS: BP 137/89; PULSE 80; RESP 16; TEMP 36.2; O2SAT 97
[2023-10-09] MEDS: atenoloL 25 MG TABLET 75 MG PO (08:46)
[2023-10-09] MEDS: metFORMIN HCl ER 500 MG TAB.ER.24H PO (08:46)
[2023-10-09] MEDS: Divalproex Sodium 250 MG TABLET.DR 750 MG PO ×2 (08:47→20:31)
[2023-10-09] MEDS: Doxycycline Monohydrate 100 MG CAPSULE PO ×2 (08:47→20:30)
[2023-10-09 08:57] LABS: Glucose, Whole Blood 124 mg/dL (60-115)
--- NOTE | 2023-10-09 12:13 | P.PNPSI_ITS ---
Subjective Subjective Date of Service: 10/09/23 Reason For Visit: brendon,psychosis Interim History: Met with patient. Discussed with Nursing. Attending some groups. Sleep okay. Patient continues to report feeling better with medications and not having much to talk about today or ask. Remains hopeful of discharge soon afterward 2nd Invega injection. No overt delusions. No SI or HI. No med concerns. Medication Compliance: Yes Side effects from medications: No Attending Groups: Intermittent Review of Systems Acute medical concerns: No Review of Systems Review of Systems Yes all other systems are reviewed and are negative Mental Status Exam Mental Status Exam Patient Appearance: Appropriate Patient Orientation: Person, Place, Time and Situation Level of Consciousness: Alert Patient Behavior: Appropriate, Talkative and Good Eye Contact Mood Description: Calm Affect Description: Calm Patient Cognition Impaired: No Ability to Follow Directions: Good Speech Pattern: Spontaneous Speech Memory Description: Remote Impaired Diagnostics Vital Signs (24Hr): Vital Signs - 24 hr 10/08/23 18:00 10/09/23 08:34 Temperature 97.2 F 97.2 F Pulse Rate 88 80 Respiratory Rate 16 16 Blood Pressure 131/88 137/89 Pulse Oximetry 96 97 Oxygen Delivery Method Room Air Room Air BMI result Body Mass Index 59.6 Labs 09/22/23 20:15 10/09/23 07:50 Labs: Laboratory Results - last 48 hr 10/09/23 10/09/23 07:50 08:50 Creatinine 0.65 Estim Creat Clear Calc 228.4 Estimated GFR > 60 POC Glucose 124 H Imaging Radiology Impressions: ITS Impressions KUB X-Ray 09/26/23 10:33 IMPRESSION: * Nonobstructive bowel gas pattern with a moderate colonic stool burden. Pelvic/Transvag US 09/26/23 20:58 IMPRESSION: 1. Limited study due to patient body habitus and inability to tolerate transvaginal imaging. 2. The uterus is normal in size. The endometrial thickness is questionably 0.4 cm. 3. The right ovary is not seen. 4. The left ovary is not seen with certainty. Medications Medications Current Medications Acetaminophen (Acetaminophen 325 Mg Tablet) 650 mg PO Q6H PRN PRN Reason: Headache/Pain Mild Scale (1-3) Last Admin: 09/07/23 16:09 Dose: 650 mg Al Hydroxide/Mg Hydroxide (Magnesium Hydrox/Alum Hydrox 30 Ml Oral.Susp) 30 ml PO Q6H PRN PRN Reason: Heartburn/Nausea Atenolol (Atenolol 25 Mg Tablet) 75 mg PO DAILY [facility]; Protocol Last Admin: 10/09/23 08:46 Dose: 75 mg [place] Butter/Zinc Oxide ([place] Butter/Zinc Oxide Supp.Rect) 1 supp [place] BID PRN PRN Reason: Hemorrhoids Divalproex Sodium (Divalproex Sodium 250 Mg Tablet.Dr) 750 mg PO BID [facility] Last Admin: 10/09/23 08:47 Dose: 750 mg Doxycycline Monohydrate (Doxycycline Monohydrate 100 Mg Capsule) 100 mg PO Q12H [facility] Stop: 10/15/23 09:01 Last Admin: 10/09/23 08:47 Dose: 100 mg Hydroxyzine HCl (Hydroxyzine Hcl 25 Mg Tablet) 25 mg PO Q6H PRN PRN Reason: Anxiety Magnesium Hydroxide (Milk Of Magnesia 30 Ml Oral.Susp) 30 ml PO DAILY PRN PRN Reason: Constipation Metformin HCl (Metformin Hcl Er 500 Mg Tab.Er.24h) 500 mg PO DAILY [facility] Last Admin: 10/09/23 08:46 Dose: 500 mg Nystatin (Nystatin Powder 15 Gm Bottle) 1 appl TOPICAL BID [facility]; Protocol Last Admin: 10/08/23 21:47 Dose: Not Given Nystatin (Nystatin Cream 15 Gm Tube) 1 appl TOPICAL BID [facility]; Protocol Last Admin: 10/08/23 21:34 Dose: 1 appl Olanzapine (Olanzapine Odt 10 Mg Tab.Rapdis) 10 mg TRANSLINGU TID PRN PRN Reason: agitation Last Admin: 10/01/23 09:20 Dose: 10 mg Paliperidone (Paliperidone Er 3 Mg Tab.Er.24) 3 mg PO DAILY [facility] Last Admin: 10/04/23 09:01 Dose: Not Given Trazodone HCl (Trazodone Hcl 50 Mg Tablet) 50 mg PO BEDTIME MRX1 PRN PRN Reason: Insomnia Last Admin: 09/22/23 22:45 Dose: 50 mg Allergies Allergies Allergy/AdvReac Type Severity Reaction Status Date / Time kiwi [KIWI] Allergy Mild HIVES Verified 07/07/23 10:07 mold [MOLD EXTRACTS*] Allergy Mild HIVES Verified 07/07/23 10:07 Assessment & Plan Assessment & Plan (1) Bipolar disorder with psychotic features: Status: Acute Code(s): F31.9 - Bipolar disorder, unspecified (2) Schizoaffective disorder, bipolar type: Status: Acute Code(s): F25.0 - Schizoaffective disorder, bipolar type Plan 33 yo female with a history of bipolar disorder with psychosis/schizoaffective disorder presents with acute brendon after stopping medications on 09/03 (Depakote). Plan: Re-start and stabilize regime Olanzapine 10 mg HS When recompensated, discuss THOMAS with pt and family. Collateral contact Family Intervention Medical Management of sx. 09/08/23 Increase Depakote to 1000 mg bid Increase Olanzapine to 20 mg daily Continue Haldol Labs 09/09/23. 09/09/23 Continue current regime 09/10/23 Symptoms of UTI Urine culture, Bactrim DS, Pyridium 09/11/23 Increase in delusional, disinhibited sx today. Haldol 10 mg po x 1 prn On 09/12 increase Haldol to 10 mg tid 09/12/22 Continue tx. 09/13/23 Pt has had a reasonable trial of Haldol with Olanzapine and Valproate which has not seemed to be stabilizing. By history, Olanzapine 40 mg has been effective Plan: Discontinue Haldol Increase Olanzapine to 20 mg bid. 09/15/23 Continue current regime 09/16/2023? Continue?current?regimen 09/18/2023: Continue current regimen and plans 09/19/22: Continue current regime and plan. 09/21/23: Continue tx. Lab has been asked to draw Depakote level for several days. 09/22: Continue current tx plan. 09/23: Valporic acid level 68.9 on 09/22. Continue current tx plan. 09/24 continue current tx plan 09/25 continue current tx plan 09/26/23: Abdominal pain, Ovarian pain-diagnostics are pending. 09/29/23: Decrease Olanzapine to 10 mg HS 09/30/23: Increase Invega to 4.5 mg daily Decrease Olanzapine to 5 mg HS Diflucan for 72 hours for yeast infection sx 10/04/23 Continue current plan. 10/06/23 Continue tx 10/07/23 Continue tx Hospitalist consult, LLAbd area of induration 10/08: no changes. Appreciate hospitalist consult today and recommendations 10/09: no changes Reason for continued inpatient stay Substantial Risk for: inability to function and rapid decompensation Time Spent With Patient Time: Total time managing care of this patient today ____ minutes.
[2023-10-09 20:25] VITALS: BP 134/69; PULSE 85; TEMP 36.7
[2023-10-10 08:00] VITALS: BP 171/98; PULSE 98; RESP 18; TEMP 36.2; O2SAT 99
[2023-10-10] MEDS: metFORMIN HCl ER 500 MG TAB.ER.24H PO (08:51)
[2023-10-10] MEDS: Doxycycline Monohydrate 100 MG CAPSULE PO ×2 (08:51→20:43)
[2023-10-10] MEDS: atenoloL 25 MG TABLET 75 MG PO (08:51)
[2023-10-10] MEDS: Divalproex Sodium 250 MG TABLET.DR 750 MG PO ×2 (08:51→20:43)
[2023-10-10 09:09] LABS: Glucose, Whole Blood 114 mg/dL (60-115)
[2023-10-10 11:03] VITALS: BP 124/63; PULSE 72
--- NOTE | 2023-10-10 15:07 | P.PNPSI_ITS ---
Subjective Subjective Date of Service: 10/10/23 Reason For Visit: brendon,psychosis Subjective Notes: Conditional Voluntary Healthcare Proxy: No Guardianship: No Medical Problems Affecting Mental Status: No Interim History: Pt seen, reviewed with team. Pt reports she is feeling well, antibiotics/metformin started over the weekend by hospitalist team. She is anxious to return home and discussed activities she would like to do when discharged. She discussed concerns about her father and his health and in being home without her father when she discharges. Medication Compliance: Yes Side effects from medications: No Attending Groups: Intermittent Review of Systems Acute medical concerns: No Medical Review of Systems: unchanged Review of Systems Review of Systems Metformin initiated over the weekend. Doxycycline 100 mg bid initiated over the weekend for hidradenitis supprativa. Mental Status Exam Mental Status Exam Patient Appearance: Appropriate Patient Orientation: Person, Place, Time and Situation Level of Consciousness: Alert Patient Behavior: Talkative and Good Eye Contact Mood Description: Cheerful Affect Description: Cheerful Patient Cognition Impaired: No Speech Pattern: Spontaneous Speech Memory Description: Episodic Impaired Hallucinations: None Delusions: Not Present Thought Process: Distracted Thought Content: positive for Circumstantial and positive for Suicidal Ideation (denies) Depressive Symptoms: Increased Anxiety Judgement: Fair Diagnostics Vital Signs (24Hr): Vital Signs - 24 hr 10/09/23 20:25 10/10/23 08:00 10/10/23 11:03 Temperature 98.1 F 97.2 F Pulse Rate 85 98 72 Respiratory Rate 18 Blood Pressure 134/69 171/98 H 124/63 Pulse Oximetry 99 Oxygen Delivery Method Room Air BMI result Body Mass Index 59.6 Labs 09/22/23 20:15 10/09/23 07:50 Labs: Laboratory Results - last 48 hr 10/09/23 10/09/23 10/10/23 07:50 08:50 09:05 Creatinine 0.65 Estim Creat Clear Calc 228.4 Estimated GFR > 60 POC Glucose 124 H 114 Imaging Radiology Impressions: ITS Impressions KUB X-Ray 09/26/23 10:33 IMPRESSION: * Nonobstructive bowel gas pattern with a moderate colonic stool burden. Pelvic/Transvag US 09/26/23 20:58 IMPRESSION: 1. Limited study due to patient body habitus and inability to tolerate transvaginal imaging. 2. The uterus is normal in size. The endometrial thickness is questionably 0.4 cm. 3. The right ovary is not seen. 4. The left ovary is not seen with certainty. Medications Medications Current Medications Acetaminophen (Acetaminophen 325 Mg Tablet) 650 mg PO Q6H PRN PRN Reason: Headache/Pain Mild Scale (1-3) Last Admin: 09/07/23 16:09 Dose: 650 mg Al Hydroxide/Mg Hydroxide (Magnesium Hydrox/Alum Hydrox 30 Ml Oral.Susp) 30 ml PO Q6H PRN PRN Reason: Heartburn/Nausea Atenolol (Atenolol 25 Mg Tablet) 75 mg PO DAILY [facility]; Protocol Last Admin: 10/10/23 08:51 Dose: 75 mg [place] Butter/Zinc Oxide ([place] Butter/Zinc Oxide Supp.Rect) 1 supp [place] BID PRN PRN Reason: Hemorrhoids Divalproex Sodium (Divalproex Sodium 250 Mg Tablet.Dr) 750 mg PO BID [facility] Last Admin: 10/10/23 08:51 Dose: 750 mg Doxycycline Monohydrate (Doxycycline Monohydrate 100 Mg Capsule) 100 mg PO Q12H [facility] Stop: 10/15/23 09:01 Last Admin: 10/10/23 08:51 Dose: 100 mg Hydroxyzine HCl (Hydroxyzine Hcl 25 Mg Tablet) 25 mg PO Q6H PRN PRN Reason: Anxiety Magnesium Hydroxide (Milk Of Magnesia 30 Ml Oral.Susp) 30 ml PO DAILY PRN PRN Reason: Constipation Metformin HCl (Metformin Hcl Er 500 Mg Tab.Er.24h) 500 mg PO DAILY [facility] Last Admin: 10/10/23 08:51 Dose: 500 mg Nystatin (Nystatin Powder 15 Gm Bottle) 1 appl TOPICAL BID [facility]; Protocol Last Admin: 10/09/23 22:13 Dose: 1 appl Nystatin (Nystatin Cream 15 Gm Tube) 1 appl TOPICAL BID [facility]; Protocol Last Admin: 10/09/23 22:14 Dose: 1 appl Olanzapine (Olanzapine Odt 10 Mg Tab.Rapdis) 10 mg TRANSLINGU TID PRN PRN Reason: agitation Last Admin: 10/01/23 09:20 Dose: 10 mg Paliperidone Palmitate (Paliperidone Palmitate 156 Mg/Ml Syringe) 156 mg IM ONCE ONE Stop: 10/11/23 09:01 Trazodone HCl (Trazodone Hcl 50 Mg Tablet) 50 mg PO BEDTIME MRX1 PRN PRN Reason: Insomnia Last Admin: 09/22/23 22:45 Dose: 50 mg Allergies Allergies Allergy/AdvReac Type Severity Reaction Status Date / Time kiwi [KIWI] Allergy Mild HIVES Verified 07/07/23 10:07 mold [MOLD EXTRACTS*] Allergy Mild HIVES Verified 07/07/23 10:07 Assessment & Plan Assessment & Plan (1) Bipolar disorder with psychotic features: Status: Acute Code(s): F31.9 - Bipolar disorder, unspecified (2) Schizoaffective disorder, bipolar type: Status: Acute Code(s): F25.0 - Schizoaffective disorder, bipolar type Plan 33 yo female with a history of bipolar disorder with psychosis/schizoaffective disorder presents with acute brendon after stopping medications on 09/03 (Depakote). Plan: Re-start and stabilize regime Olanzapine 10 mg HS When recompensated, discuss THOMAS with pt and family. Collateral contact Family Intervention Medical Management of sx. 09/08/23 Increase Depakote to 1000 mg bid Increase Olanzapine to 20 mg daily Continue Haldol Labs 09/09/23. 09/09/23 Continue current regime 09/10/23 Symptoms of UTI Urine culture, Bactrim DS, Pyridium 09/11/23 Increase in delusional, disinhibited sx today. Haldol 10 mg po x 1 prn On 09/12 increase Haldol to 10 mg tid 09/12/22 Continue tx. 09/13/23 Pt has had a reasonable trial of Haldol with Olanzapine and Valproate which has not seemed to be stabilizing. By history, Olanzapine 40 mg has been effective Plan: Discontinue Haldol Increase Olanzapine to 20 mg bid. 09/15/23 Continue current regime 09/16/2023? Continue?current?regimen 09/18/2023: Continue current regimen and plans 09/19/22: Continue current regime and plan. 09/21/23: Continue tx. Lab has been asked to draw Depakote level for several days. 09/22: Continue current tx plan. 09/23: Valporic acid level 68.9 on 09/22. Continue current tx plan. 09/24 continue current tx plan 09/25 continue current tx plan 09/26/23: Abdominal pain, Ovarian pain-diagnostics are pending. 09/29/23: Decrease Olanzapine to 10 mg HS 09/30/23: Increase Invega to 4.5 mg daily Decrease Olanzapine to 5 mg HS Diflucan for 72 hours for yeast infection sx 10/04/23 Continue current plan. 10/06/23 Continue tx 10/07/23 Continue tx Hospitalist consult, LLAbd area of induration 10/08: no changes. Appreciate hospitalist consult today and recommendations 10/09: no changes 10/10/23: Invega Sustenna IM 10/11 Tentative discharge 10/12. Patient educated on: medication risk/benefits and therapeutic strategies Informed Consent: further education needed Reason for continued inpatient stay Substantial Risk for: rapid decompensation Time Spent With Patient Time: Total time managing care of this patient today ____ minutes.
[2023-10-10 18:15] VITALS: BP 136/84; PULSE 80; RESP 16; TEMP 36.3; O2SAT 97
[2023-10-11 08:00] VITALS: BP 137/63; PULSE 95; RESP 18; TEMP 36.1; O2SAT 97
[2023-10-11] MEDS: Divalproex Sodium 500 MG TABLET.DR 1000 MG PO ×2 (08:13→20:09)
[2023-10-11] MEDS: atenoloL 25 MG TABLET 75 MG PO (08:13)
[2023-10-11] MEDS: metFORMIN HCl ER 500 MG TAB.ER.24H PO (08:13)
[2023-10-11] MEDS: Doxycycline Monohydrate 100 MG CAPSULE PO ×2 (08:13→20:08)
[2023-10-11 08:24] LABS: Glucose, Whole Blood 142 mg/dL (60-115)
[2023-10-11] MEDS: Milk of Magnesia 30 ML ORAL.SUSP PO (10:23)
--- NOTE | 2023-10-11 14:25 | P.PNPSI_ITS ---
Subjective Subjective Date of Service: 10/11/23 Reason For Visit: brendon,psychosis Subjective Notes: Conditional Voluntary Healthcare Proxy: No Guardianship: No Medical Problems Affecting Mental Status: No Interim History: Pt seen, discussed in team meeting. Pt experiencing breakthrough sx today. Notified by nursing this a.m. that pt had been up all night with sx of regression, delusional statements about being her dog's biological mother. She has been sexually inappropriate with staff and peers and reports paranoia. She is requesting imaging for /PCOS. She has been labile at times today, clear at times-crying, sobbing on the phone with family. She declined her second Invega Sustenna IM however did agree to take this at the end of the day. Discussed postponing discharge at this time. Medication Compliance: Yes Side effects from medications: No Attending Groups: No Review of Systems Acute medical concerns: No Medical Review of Systems: unchanged Review of Systems Review of Systems Yes Unobtainable due to mental status Mental Status Exam Mental Status Exam Patient Appearance: Appropriate Patient Orientation: Person and Place Level of Consciousness: Alert Patient Behavior: Talkative, Suspicious, Swearing, Anxious, Good Eye Contact and Crying Mood Description: Labile Affect Description: Labile Patient Cognition Impaired: Yes Ability to Follow Directions: Fair Speech Pattern: Spontaneous Speech Memory Description: Episodic Impaired Hallucinations: Auditory Delusions: Paranoid Ideation and Present Perceptual Disturbances: Derealization Thought Process: Racing, Illogical and Rumination Thought Content: positive for Flight of Ideas, positive for Racing, positive for Perseveration, positive for Preoccupation, positive for Loose Associations, positive for Tangential and positive for Disorganized Depressive Symptoms: Insomnia, Increased Irritability and Difficulty Sleeping Judgement: Poor Diagnostics Vital Signs (24Hr): Vital Signs - 24 hr 10/10/23 18:15 10/11/23 08:00 Temperature 97.4 F 97 F Pulse Rate 80 95 Respiratory Rate 16 18 Blood Pressure 136/84 137/63 Pulse Oximetry 97 97 Oxygen Delivery Method Room Air Room Air BMI result Body Mass Index 59.6 Labs 09/22/23 20:15 10/09/23 07:50 Labs: Laboratory Results - last 48 hr 10/10/23 10/11/23 09:05 08:21 POC Glucose 114 142 H Imaging Radiology Impressions: ITS Impressions KUB X-Ray 09/26/23 10:33 IMPRESSION: * Nonobstructive bowel gas pattern with a moderate colonic stool burden. Pelvic/Transvag US 09/26/23 20:58 IMPRESSION: 1. Limited study due to patient body habitus and inability to tolerate transvaginal imaging. 2. The uterus is normal in size. The endometrial thickness is questionably 0.4 cm. 3. The right ovary is not seen. 4. The left ovary is not seen with certainty. Medications Medications Current Medications Acetaminophen (Acetaminophen 325 Mg Tablet) 650 mg PO Q6H PRN PRN Reason: Headache/Pain Mild Scale (1-3) Last Admin: 09/07/23 16:09 Dose: 650 mg Al Hydroxide/Mg Hydroxide (Magnesium Hydrox/Alum Hydrox 30 Ml Oral.Susp) 30 ml PO Q6H PRN PRN Reason: Heartburn/Nausea Atenolol (Atenolol 25 Mg Tablet) 75 mg PO DAILY [facility]; Protocol Last Admin: 10/11/23 08:13 Dose: 75 mg [place] Butter/Zinc Oxide ([place] Butter/Zinc Oxide Supp.Rect) 1 supp [place] BID PRN PRN Reason: Hemorrhoids Divalproex Sodium (Divalproex Sodium 500 Mg Tablet.Dr) 1,000 mg PO BID [facility] Last Admin: 10/11/23 08:13 Dose: 1,000 mg Doxycycline Monohydrate (Doxycycline Monohydrate 100 Mg Capsule) 100 mg PO Q12H [facility] Stop: 10/15/23 09:01 Last Admin: 10/11/23 08:13 Dose: 100 mg Hydroxyzine HCl (Hydroxyzine Hcl 25 Mg Tablet) 25 mg PO Q6H PRN PRN Reason: Anxiety Magnesium Hydroxide (Milk Of Magnesia 30 Ml Oral.Susp) 30 ml PO DAILY PRN PRN Reason: Constipation Last Admin: 10/11/23 10:23 Dose: 30 ml Metformin HCl (Metformin Hcl Er 500 Mg Tab.Er.24h) 500 mg PO DAILY [facility] Last Admin: 10/11/23 08:13 Dose: 500 mg Nystatin (Nystatin Powder 15 Gm Bottle) 1 appl TOPICAL BID [facility]; Protocol Last Admin: 10/11/23 08:38 Dose: Not Given Nystatin (Nystatin Cream 15 Gm Tube) 1 appl TOPICAL BID [facility]; Protocol Last Admin: 10/11/23 08:38 Dose: Not Given Olanzapine (Olanzapine Odt 10 Mg Tab.Rapdis) 10 mg TRANSLINGU TID PRN PRN Reason: agitation Last Admin: 10/01/23 09:20 Dose: 10 mg Trazodone HCl (Trazodone Hcl 50 Mg Tablet) 50 mg PO BEDTIME MRX1 PRN PRN Reason: Insomnia Last Admin: 09/22/23 22:45 Dose: 50 mg Allergies Allergies Allergy/AdvReac Type Severity Reaction Status Date / Time kiwi [KIWI] Allergy Mild HIVES Verified 07/07/23 10:07 mold [MOLD EXTRACTS*] Allergy Mild HIVES Verified 07/07/23 10:07 Assessment & Plan Assessment & Plan (1) Bipolar disorder with psychotic features: Status: Acute Code(s): F31.9 - Bipolar disorder, unspecified (2) Schizoaffective disorder, bipolar type: Status: Acute Code(s): F25.0 - Schizoaffective disorder, bipolar type Plan 33 yo female with a history of bipolar disorder with psychosis/schizoaffective disorder presents with acute brendon after stopping medications on 09/03 (Depakote). Plan: Re-start and stabilize regime Olanzapine 10 mg HS When recompensated, discuss THOMAS with pt and family. Collateral contact Family Intervention Medical Management of sx. 09/08/23 Increase Depakote to 1000 mg bid Increase Olanzapine to 20 mg daily Continue Haldol Labs 09/09/23. 09/09/23 Continue current regime 09/10/23 Symptoms of UTI Urine culture, Bactrim DS, Pyridium 09/11/23 Increase in delusional, disinhibited sx today. Haldol 10 mg po x 1 prn On 09/12 increase Haldol to 10 mg tid 09/12/22 Continue tx. 09/13/23 Pt has had a reasonable trial of Haldol with Olanzapine and Valproate which has not seemed to be stabilizing. By history, Olanzapine 40 mg has been effective Plan: Discontinue Haldol Increase Olanzapine to 20 mg bid. 09/15/23 Continue current regime 09/16/2023? Continue?current?regimen 09/18/2023: Continue current regimen and plans 09/19/22: Continue current regime and plan. 09/21/23: Continue tx. Lab has been asked to draw Depakote level for several days. 09/22: Continue current tx plan. 09/23: Valporic acid level 68.9 on 09/22. Continue current tx plan. 09/24 continue current tx plan 09/25 continue current tx plan 09/26/23: Abdominal pain, Ovarian pain-diagnostics are pending. 09/29/23: Decrease Olanzapine to 10 mg HS 09/30/23: Increase Invega to 4.5 mg daily Decrease Olanzapine to 5 mg HS Diflucan for 72 hours for yeast infection sx 10/04/23 Continue current plan. 10/06/23 Continue tx 10/07/23 Continue tx Hospitalist consult, LLAbd area of induration 10/08: no changes. Appreciate hospitalist consult today and recommendations 10/09: no changes 10/11: Symptom breakthrough- Increase Valproate to 1000 mg bid Olanzapine 10 mg HS Patient educated on: medication risk/benefits and therapeutic strategies Informed Consent: further education needed Reason for continued inpatient stay Substantial Risk for: rapid decompensation Time Spent With Patient Time: Total time managing care of this patient today ____ minutes.
[2023-10-11] MEDS: Paliperidone Palmitate 156 MG/ML SYRINGE IM (14:55)
[2023-10-11 17:30] VITALS: BP 132/65; PULSE 88; RESP 18; TEMP 36.6; O2SAT 98
[2023-10-11] MEDS: OLANZapine 10 MG TABLET PO (20:09)
[2023-10-12 07:55] VITALS: BP 131/70; PULSE 95; RESP 18; TEMP 36.5; O2SAT 96
[2023-10-12] MEDS: metFORMIN HCl ER 500 MG TAB.ER.24H PO (08:04)
[2023-10-12] MEDS: Doxycycline Monohydrate 100 MG CAPSULE PO ×2 (08:04→21:22)
[2023-10-12] MEDS: Divalproex Sodium 500 MG TABLET.DR 1000 MG PO ×2 (08:04→21:23)
[2023-10-12] MEDS: atenoloL 25 MG TABLET 75 MG PO (08:04)
[2023-10-12] MEDS: OLANZapine ODT 10 MG TAB.RAPDIS TRANSLINGU (08:13)
--- NOTE | 2023-10-12 08:39 | HO.PSYCHPN ---
Subjective Subjective Date of Service: 10/12/23 Reason For Visit: brendon,psychosis Subjective Notes: Conditional Voluntary Healthcare Proxy: No Guardianship: No Medical Problems Affecting Mental Status: No Interim History: Labile, loud at times with disorganization. Olanzapine increased, divided to bid. 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 Pt needing extra support in activites of daily living. She did ask to meet, cried, and stated, I thank all of you for loving and caring about me I feel lost sometimes and I don't want to go home alone, and all of you know that. I wish [place]enne could live here with us. Medication Compliance: Yes Side effects from medications: No Attending Groups: No Review of Systems Acute medical concerns: No Medical Review of Systems: unchanged Review of Systems Review of Systems Yes Unobtainable due to mental status Mental Status Exam Mental Status Exam Patient Appearance: Appropriate Patient Orientation: Person and Place Level of Consciousness: Alert Patient Behavior: Talkative, Suspicious, Swearing, Anxious, Good Eye Contact and Crying Mood Description: Labile Affect Description: Labile Patient Cognition Impaired: Yes Ability to Follow Directions: Fair Speech Pattern: Spontaneous Speech Memory Description: Episodic Impaired Hallucinations: Auditory Delusions: Paranoid Ideation and Present Perceptual Disturbances: Derealization Thought Process: Racing, Illogical and Rumination Thought Content: positive for Flight of Ideas, positive for Racing, positive for Perseveration, positive for Preoccupation, positive for Loose Associations, positive for Tangential and positive for Disorganized Depressive Symptoms: Insomnia, Increased Irritability and Difficulty Sleeping Judgement: Poor Diagnostics Vital Signs (24Hr): Vital Signs - 24 hr 10/11/23 17:30 Temperature 97.9 F Pulse Rate 88 Respiratory Rate 18 Blood Pressure 132/65 Pulse Oximetry 98 Oxygen Delivery Method Room Air BMI result Body Mass Index 59.6 Labs 09/22/23 20:15 10/09/23 07:50 Labs: Laboratory Results - last 48 hr 10/10/23 10/11/23 09:05 08:21 POC Glucose 114 142 H Imaging Radiology Impressions: ITS Impressions KUB X-Ray 09/26/23 10:33 IMPRESSION: * Nonobstructive bowel gas pattern with a moderate colonic stool burden. Pelvic/Transvag US 09/26/23 20:58 IMPRESSION: 1. Limited study due to patient body habitus and inability to tolerate transvaginal imaging. 2. The uterus is normal in size. The endometrial thickness is questionably 0.4 cm. 3. The right ovary is not seen. 4. The left ovary is not seen with certainty. Medications Medications Current Medications Acetaminophen (Acetaminophen 325 Mg Tablet) 650 mg PO Q6H PRN PRN Reason: Headache/Pain Mild Scale (1-3) Last Admin: 09/07/23 16:09 Dose: 650 mg Al Hydroxide/Mg Hydroxide (Magnesium Hydrox/Alum Hydrox 30 Ml Oral.Susp) 30 ml PO Q6H PRN PRN Reason: Heartburn/Nausea Atenolol (Atenolol 25 Mg Tablet) 75 mg PO DAILY [facility]; Protocol Last Admin: 10/12/23 08:04 Dose: 75 mg [place] Butter/Zinc Oxide ([place] Butter/Zinc Oxide Supp.Rect) 1 supp [place] BID PRN PRN Reason: Hemorrhoids Divalproex Sodium (Divalproex Sodium 500 Mg Tablet.) 1,000 mg PO BID [facility] Last Admin: 10/12/23 08:04 Dose: 1,000 mg Doxycycline Monohydrate (Doxycycline Monohydrate 100 Mg Capsule) 100 mg PO Q12H [facility] Stop: 10/15/23 09:01 Last Admin: 10/12/23 08:04 Dose: 100 mg Hydroxyzine HCl (Hydroxyzine Hcl 25 Mg Tablet) 25 mg PO Q6H PRN PRN Reason: Anxiety Magnesium Hydroxide (Milk Of Magnesia 30 Ml Oral.Susp) 30 ml PO DAILY PRN PRN Reason: Constipation Last Admin: 10/11/23 10:23 Dose: 30 ml Metformin HCl (Metformin Hcl Er 500 Mg Tab.Er.24h) 500 mg PO DAILY [facility] Last Admin: 10/12/23 08:04 Dose: 500 mg Nystatin (Nystatin Powder 15 Gm Bottle) 1 appl TOPICAL BID [facility]; Protocol Last Admin: 10/11/23 20:09 Dose: 1 appl Nystatin (Nystatin Cream 15 Gm Tube) 1 appl TOPICAL BID [facility]; Protocol Last Admin: 10/12/23 00:12 Dose: Not Given Olanzapine (Olanzapine Odt 10 Mg Tab.Rapdis) 10 mg TRANSLINGU TID PRN PRN Reason: agitation Last Admin: 10/12/23 08:13 Dose: 10 mg Olanzapine (Olanzapine 10 Mg Tablet) 10 mg PO BEDTIME [facility] Last Admin: 10/11/23 20:09 Dose: 10 mg Trazodone HCl (Trazodone Hcl 50 Mg Tablet) 50 mg PO BEDTIME MRX1 PRN PRN Reason: Insomnia Last Admin: 09/22/23 22:45 Dose: 50 mg Allergies Allergies Allergy/AdvReac Type Severity Reaction Status Date / Time kiwi [KIWI] Allergy Mild HIVES Verified 07/07/23 10:07 mold [MOLD EXTRACTS*] Allergy Mild HIVES Verified 07/07/23 10:07 Assessment & Plan Assessment & Plan (1) Bipolar disorder with psychotic features: Status: Acute Code(s): F31.9 - Bipolar disorder, unspecified (2) Schizoaffective disorder, bipolar type: Status: Acute Code(s): F25.0 - Schizoaffective disorder, bipolar type Plan 33 yo female with a history of bipolar disorder with psychosis/schizoaffective disorder presents with acute brendon after stopping medications on 09/03 (Depakote). Plan: Re-start and stabilize regime Olanzapine 10 mg HS When recompensated, discuss THOMAS with pt and family. Collateral contact Family Intervention Medical Management of sx. 09/08/23 Increase Depakote to 1000 mg bid Increase Olanzapine to 20 mg daily Continue Haldol Labs 09/09/23. 09/09/23 Continue current regime 09/10/23 Symptoms of UTI Urine culture, Bactrim DS, Pyridium 09/11/23 Increase in delusional, disinhibited sx today. Haldol 10 mg po x 1 prn On 09/12 increase Haldol to 10 mg tid 09/12/22 Continue tx. 09/13/23 Pt has had a reasonable trial of Haldol with Olanzapine and Valproate which has not seemed to be stabilizing. By history, Olanzapine 40 mg has been effective Plan: Discontinue Haldol Increase Olanzapine to 20 mg bid. 09/15/23 Continue current regime 09/16/2023? Continue?current?regimen 09/18/2023: Continue current regimen and plans 09/19/22: Continue current regime and plan. 09/21/23: Continue tx. Lab has been asked to draw Depakote level for several days. 09/22: Continue current tx plan. 09/23: Valporic acid level 68.9 on 09/22. Continue current tx plan. 09/24 continue current tx plan 09/25 continue current tx plan 09/26/23: Abdominal pain, Ovarian pain-diagnostics are pending. 09/29/23: Decrease Olanzapine to 10 mg HS 09/30/23: Increase Invega to 4.5 mg daily Decrease Olanzapine to 5 mg HS Diflucan for 72 hours for yeast infection sx 10/04/23 Continue current plan. 10/06/23 Continue tx 10/07/23 Continue tx Hospitalist consult, LLAbd area of induration 10/08: no changes. Appreciate hospitalist consult today and recommendations 10/09: no changes 10/11: Symptom breakthrough- Increase Valproate to 1000 mg bid Olanzapine 10 mg HS 10/12: Lability persists- Incrase Olanzapine to 20 mg bid Patient educated on: medication risk/benefits and therapeutic strategies Informed Consent: further education needed Reason for continued inpatient stay Substantial Risk for: rapid decompensation Time Spent With Patient Time: Total time managing care of this patient today ____ minutes.
[2023-10-12] MEDS: OLANZapine ODT 10 MG TAB.RAPDIS 20 MG TRANSLINGU (11:06)
--- NOTE | 2023-10-12 11:12 | PC.NURSE ---
Phone number for Zeinab's Mom's land line is [phone]
[2023-10-12 19:28] VITALS: BP 120/65; PULSE 85; RESP 18; TEMP 36.7; O2SAT 96
[2023-10-12] MEDS: OLANZapine 10 MG TABLET 20 MG PO (21:22)
[2023-10-13 08:14] VITALS: BP 143/80; PULSE 93; RESP 18; TEMP 36.2; O2SAT 99
[2023-10-13] MEDS: OLANZapine 10 MG TABLET 20 MG PO (08:59)
[2023-10-13] MEDS: atenoloL 25 MG TABLET 75 MG PO (09:00)
[2023-10-13] MEDS: metFORMIN HCl ER 500 MG TAB.ER.24H PO (09:00)
[2023-10-13] MEDS: Doxycycline Monohydrate 100 MG CAPSULE PO ×2 (09:00→21:51)
[2023-10-13] MEDS: Divalproex Sodium 500 MG TABLET.DR 1000 MG PO ×2 (09:01→21:50)
[2023-10-13] MEDS: LORazepam 1 MG TABLET PO (13:10)
--- NOTE | 2023-10-13 16:33 | HO.PSYCHPN ---
Subjective Subjective Date of Service: 10/13/23 Reason For Visit: brendon,psychosis Subjective Notes: Conditional Voluntary Healthcare Proxy: No Guardianship: No Medical Problems Affecting Mental Status: No Interim History: Breakthrough brendon with psychosis, agitation, delusional content, anger, verbal aggression, sexualized focus. Incontinent of urine. Refused to get cleaned up. Sat on the floor and refused to get up. Mother visited today. Pt awake most of the night Lorazepam 1 mg x 1 with no effect Of note, regime has returned to original stabilizaing regime with Invega Sustenna 234 mg and 156 mg on board. Socially, there is a lot going on at home- we are informed pt's father coded at his SNF last evening and is now in [facility]. Family chose not to share this with pt, however, pt usually talks with her father several times per day and did not talk with him today, possibly contributing to current sx. Diagnostics ordered for 10/14. Medication Compliance: Yes Side effects from medications: No Attending Groups: No Review of Systems Acute medical concerns: No Medical Review of Systems: unchanged Review of Systems Review of Systems Several reports of symptoms which are reported then she denies. Mental Status Exam Mental Status Exam Patient Appearance: Unkempt Patient Orientation: Person and Place Level of Consciousness: Restless and Alert Patient Behavior: Guarded, Talkative, Suspicious, Hypersexual, Aggressive, Restless, Belligerent, Verbal Threats, Swearing, Anxious, Resistive to Care, Distractible, Good Eye Contact and Crying Mood Description: Hostile, Labile and Angry Affect Description: Hostile, Labile and Angry Patient Cognition Impaired: Yes Ability to Follow Directions: Fair Speech Pattern: Spontaneous Speech, Rambling, Rapid, Excessive and Loud Memory Description: Remote Impaired and Episodic Impaired Delusions: Paranoid Ideation, Grandiose and Present Perceptual Disturbances: Depersonalization and Derealization Thought Process: Racing, Illogical, Distracted and Rumination Thought Content: positive for Flight of Ideas, positive for Racing, positive for Circumstantial, positive for Perseveration, positive for Preoccupation, positive for Loose Associations, positive for Tangential and positive for Disorganized Depressive Symptoms: Insomnia, Increased Irritability and Difficulty Sleeping Abnormal Motor Activity Signs and Symptoms: Agitation and Restlessness Judgement: Poor Diagnostics Vital Signs (24Hr): Vital Signs - 24 hr 10/12/23 19:28 10/13/23 08:14 Temperature 98.1 F 97.2 F Pulse Rate 85 93 Respiratory Rate 18 18 Blood Pressure 120/65 143/80 H Pulse Oximetry 96 99 Oxygen Delivery Method Room Air Room Air BMI result Body Mass Index 59.6 Labs 09/22/23 20:15 10/09/23 07:50 Imaging Radiology Impressions: ITS Impressions KUB X-Ray 09/26/23 10:33 IMPRESSION: * Nonobstructive bowel gas pattern with a moderate colonic stool burden. Pelvic/Transvag US 09/26/23 20:58 IMPRESSION: 1. Limited study due to patient body habitus and inability to tolerate transvaginal imaging. 2. The uterus is normal in size. The endometrial thickness is questionably 0.4 cm. 3. The right ovary is not seen. 4. The left ovary is not seen with certainty. Medications Medications Current Medications Acetaminophen (Acetaminophen 325 Mg Tablet) 650 mg PO Q6H PRN PRN Reason: Headache/Pain Mild Scale (1-3) Last Admin: 09/07/23 16:09 Dose: 650 mg Al Hydroxide/Mg Hydroxide (Magnesium Hydrox/Alum Hydrox 30 Ml Oral.Susp) 30 ml PO Q6H PRN PRN Reason: Heartburn/Nausea Atenolol (Atenolol 25 Mg Tablet) 75 mg PO DAILY [facility]; Protocol Last Admin: 10/13/23 09:00 Dose: 75 mg [place] Butter/Zinc Oxide ([place] Butter/Zinc Oxide Supp.Rect) 1 supp [place] BID PRN PRN Reason: Hemorrhoids Divalproex Sodium (Divalproex Sodium 500 Mg Tablet.) 1,000 mg PO BID [facility] Last Admin: 10/13/23 09:01 Dose: 1,000 mg Doxycycline Monohydrate (Doxycycline Monohydrate 100 Mg Capsule) 100 mg PO Q12H [facility] Stop: 10/15/23 09:01 Last Admin: 10/13/23 09:00 Dose: 100 mg Hydroxyzine HCl (Hydroxyzine Hcl 25 Mg Tablet) 25 mg PO Q6H PRN PRN Reason: Anxiety Magnesium Hydroxide (Milk Of Magnesia 30 Ml Oral.Susp) 30 ml PO DAILY PRN PRN Reason: Constipation Last Admin: 10/11/23 10:23 Dose: 30 ml Metformin HCl (Metformin Hcl Er 500 Mg Tab.Er.24h) 500 mg PO DAILY [facility] Last Admin: 10/13/23 09:00 Dose: 500 mg Nystatin (Nystatin Powder 15 Gm Bottle) 1 appl TOPICAL BID [facility]; Protocol Last Admin: 10/13/23 09:05 Dose: Not Given Nystatin (Nystatin Cream 15 Gm Tube) 1 appl TOPICAL BID [facility]; Protocol Last Admin: 10/13/23 09:05 Dose: Not Given Olanzapine (Olanzapine Odt 10 Mg Tab.Rapdis) 10 mg TRANSLINGU TID PRN PRN Reason: agitation Last Admin: 10/12/23 08:13 Dose: 10 mg Olanzapine (Olanzapine Odt 10 Mg Tab.Rapdis) 20 mg TRANSLINGU BID [facility] Last Admin: 10/13/23 09:05 Dose: Not Given Trazodone HCl (Trazodone Hcl 50 Mg Tablet) 50 mg PO BEDTIME MRX1 PRN PRN Reason: Insomnia Last Admin: 09/22/23 22:45 Dose: 50 mg Allergies Allergies Allergy/AdvReac Type Severity Reaction Status Date / Time kiwi [KIWI] Allergy Mild HIVES Verified 07/07/23 10:07 mold [MOLD EXTRACTS*] Allergy Mild HIVES Verified 07/07/23 10:07 Assessment & Plan Assessment & Plan (1) Bipolar disorder with psychotic features: Status: Acute Code(s): F31.9 - Bipolar disorder, unspecified (2) Schizoaffective disorder, bipolar type: Status: Acute Code(s): F25.0 - Schizoaffective disorder, bipolar type Plan 33 yo female with a history of bipolar disorder with psychosis/schizoaffective disorder presents with acute brendon after stopping medications on 09/03 (Depakote). Plan: Re-start and stabilize regime Olanzapine 10 mg HS When recompensated, discuss THOMAS with pt and family. Collateral contact Family Intervention Medical Management of sx. 09/08/23 Increase Depakote to 1000 mg bid Increase Olanzapine to 20 mg daily Continue Haldol Labs 09/09/23. 09/09/23 Continue current regime 09/10/23 Symptoms of UTI Urine culture, Bactrim DS, Pyridium 09/11/23 Increase in delusional, disinhibited sx today. Haldol 10 mg po x 1 prn On 09/12 increase Haldol to 10 mg tid 09/12/22 Continue tx. 09/13/23 Pt has had a reasonable trial of Haldol with Olanzapine and Valproate which has not seemed to be stabilizing. By history, Olanzapine 40 mg has been effective Plan: Discontinue Haldol Increase Olanzapine to 20 mg bid. 09/15/23 Continue current regime 09/16/2023? Continue?current?regimen 09/18/2023: Continue current regimen and plans 09/19/22: Continue current regime and plan. 09/21/23: Continue tx. Lab has been asked to draw Depakote level for several days. 09/22: Continue current tx plan. 09/23: Valporic acid level 68.9 on 09/22. Continue current tx plan. 09/24 continue current tx plan 09/25 continue current tx plan 09/26/23: Abdominal pain, Ovarian pain-diagnostics are pending. 09/29/23: Decrease Olanzapine to 10 mg HS 09/30/23: Increase Invega to 4.5 mg daily Decrease Olanzapine to 5 mg HS Diflucan for 72 hours for yeast infection sx 10/04/23 Continue current plan. 10/06/23 Continue tx 10/07/23 Continue tx Hospitalist consult, LLAbd area of induration 2: no changes. Appreciate hospitalist consult today and recommendations 10/09: no changes 10/11: Symptom breakthrough- Increase Valproate to 1000 mg bid Olanzapine 10 mg HS 10/12: Lability persists- Incrase Olanzapine to 20 mg bid 10/13: CBCD, CMP, Valproate level 10/14 Informed Consent: does not understand Reason for continued inpatient stay Substantial Risk for: rapid decompensation Time Spent With Patient Time: Total time managing care of this patient today ____ minutes.
[2023-10-13 18:00] VITALS: BP 132/70; PULSE 79; TEMP 36.6; O2SAT 97
[2023-10-13] MEDS: OLANZapine ODT 10 MG TAB.RAPDIS 20 MG TRANSLINGU (21:51)
[2023-10-14] MEDS: OLANZapine ODT 10 MG TAB.RAPDIS TRANSLINGU (05:02)
[2023-10-14 08:00] VITALS: BP 146/74; PULSE 94; RESP 18; TEMP 36.2; O2SAT 96
[2023-10-14] MEDS: atenoloL 25 MG TABLET 75 MG PO (08:16)
[2023-10-14] MEDS: Doxycycline Monohydrate 100 MG CAPSULE PO ×2 (08:16→20:44)
[2023-10-14] MEDS: OLANZapine ODT 10 MG TAB.RAPDIS 20 MG TRANSLINGU ×2 (08:16→20:40)
[2023-10-14] MEDS: Divalproex Sodium 500 MG TABLET.DR 1000 MG PO (08:16)
[2023-10-14] MEDS: metFORMIN HCl ER 500 MG TAB.ER.24H PO (08:16)
[2023-10-14 08:38] LABS: Glucose, Whole Blood 128 mg/dL (60-115)
--- NOTE | 2023-10-14 09:00 | ECG_ITS ---
Test Reason : DUAL ANTIPYSCHOTIC USE Blood Pressure : / mmHG Vent. Rate : 083 BPM Atrial Rate : 083 BPM P-R Int : 144 ms QRS Dur : 102 ms QT Int : 376 ms P-R-T Axes : 062 048 027 degrees QTc Int : 441 ms Normal sinus rhythm Normal ECG When compared with ECG of 06-SEP-2023 10:27, No significant change was found Referred By: Rianna Santos Electronically Signed By:SATHYA CHAVES
--- NOTE | 2023-10-14 10:00 | HO.PSYCHPN ---
Subjective Subjective Date of Service: 10/14/23 Reason For Visit: brendon,psychosis Subjective Notes: Conditional Voluntary Healthcare Proxy: No Guardianship: No Medical Problems Affecting Mental Status: No Interim History: Pt awake most of the night. It appears she is beginning to decrease activity today. Mother visited. Pt more engagable today with less disorganization, paranoia, lability. BLE edema especially in feet. Pt struggling with suggestion to put her feet up. Hospitalist consult ordered for interventions. We are unable to get a compression stockings in her size at this time. Allowed labs, EKG Pt discussing her worry about her father- he does not answer the phone . I have not talked with him in days Cries and asks that we find him. Depakote change to sprinkles per pt request Medication Compliance: Yes Side effects from medications: No Attending Groups: No Review of Systems Acute medical concerns: No Medical Review of Systems: unchanged Review of Systems Cardiovascular: Reports claudication (r leg pain-doppler ordered) and Reports leg edema Comments: BLE edema-edema bilateral feet. Mental Status Exam Mental Status Exam Patient Appearance: Unkempt Patient Orientation: Person and Place Level of Consciousness: Restless and Alert Patient Behavior: Guarded, Talkative, Suspicious, Hypersexual, Aggressive, Restless, Belligerent, Verbal Threats, Swearing, Anxious, Resistive to Care, Distractible, Good Eye Contact and Crying Mood Description: Hostile, Labile and Angry Affect Description: Hostile, Labile and Angry Patient Cognition Impaired: Yes Ability to Follow Directions: Fair Speech Pattern: Spontaneous Speech, Rambling, Rapid, Excessive and Loud Memory Description: Remote Impaired and Episodic Impaired Delusions: Paranoid Ideation, Grandiose and Present Perceptual Disturbances: Depersonalization and Derealization Thought Process: Racing, Illogical, Distracted and Rumination Thought Content: positive for Flight of Ideas, positive for Racing, positive for Circumstantial, positive for Perseveration, positive for Preoccupation, positive for Loose Associations, positive for Tangential and positive for Disorganized Depressive Symptoms: Insomnia, Increased Irritability and Difficulty Sleeping Abnormal Motor Activity Signs and Symptoms: Agitation and Restlessness Judgement: Poor Diagnostics Vital Signs (24Hr): Vital Signs - 24 hr 10/13/23 18:00 10/14/23 08:00 Temperature 97.9 F 97.2 F Pulse Rate 79 94 Respiratory Rate 18 Blood Pressure 132/70 146/74 H Pulse Oximetry 97 96 Oxygen Delivery Method Room Air Room Air BMI result Body Mass Index 59.6 Labs 10/14/23 11:00 10/14/23 11:00 Labs: Laboratory Results - last 48 hr 10/14/23 08:06 POC Glucose 128 H Imaging Radiology Impressions: ITS Impressions KUB X-Ray 09/26/23 10:33 IMPRESSION: * Nonobstructive bowel gas pattern with a moderate colonic stool burden. Pelvic/Transvag US 09/26/23 20:58 IMPRESSION: 1. Limited study due to patient body habitus and inability to tolerate transvaginal imaging. 2. The uterus is normal in size. The endometrial thickness is questionably 0.4 cm. 3. The right ovary is not seen. 4. The left ovary is not seen with certainty. Medications Medications Current Medications Acetaminophen (Acetaminophen 325 Mg Tablet) 650 mg PO Q6H PRN PRN Reason: Headache/Pain Mild Scale (1-3) Last Admin: 09/07/23 16:09 Dose: 650 mg Al Hydroxide/Mg Hydroxide (Magnesium Hydrox/Alum Hydrox 30 Ml Oral.Susp) 30 ml PO Q6H PRN PRN Reason: Heartburn/Nausea Atenolol (Atenolol 25 Mg Tablet) 75 mg PO DAILY [facility]; Protocol Last Admin: 10/14/23 08:16 Dose: 75 mg [place] Butter/Zinc Oxide ([place] Butter/Zinc Oxide Supp.Rect) 1 supp [place] BID PRN PRN Reason: Hemorrhoids Divalproex Sodium (Divalproex Sodium Sprinkles 125 Mg ) 1,000 mg PO BID [facility] Doxycycline Monohydrate (Doxycycline Monohydrate 100 Mg Capsule) 100 mg PO Q12H [facility] Stop: 10/15/23 09:01 Last Admin: 10/14/23 08:16 Dose: 100 mg Hydroxyzine HCl (Hydroxyzine Hcl 25 Mg Tablet) 25 mg PO Q6H PRN PRN Reason: Anxiety Magnesium Hydroxide (Milk Of Magnesia 30 Ml Oral.Susp) 30 ml PO DAILY PRN PRN Reason: Constipation Last Admin: 10/11/23 10:23 Dose: 30 ml Metformin HCl (Metformin Hcl Er 500 Mg Tab.Er.24h) 500 mg PO DAILY [facility] Last Admin: 10/14/23 08:16 Dose: 500 mg Nystatin (Nystatin Powder 15 Gm Bottle) 1 appl TOPICAL BID [facility]; Protocol Last Admin: 10/13/23 23:13 Dose: Not Given Nystatin (Nystatin Cream 15 Gm Tube) 1 appl TOPICAL BID [facility]; Protocol Last Admin: 10/13/23 23:13 Dose: Not Given Olanzapine (Olanzapine Odt 10 Mg Tab.Rapdis) 10 mg TRANSLINGU TID PRN PRN Reason: agitation Last Admin: 10/14/23 05:02 Dose: 10 mg Olanzapine (Olanzapine Odt 10 Mg Tab.Rapdis) 20 mg TRANSLINGU BID [facility] Last Admin: 10/14/23 08:16 Dose: 20 mg Trazodone HCl (Trazodone Hcl 50 Mg Tablet) 50 mg PO BEDTIME MRX1 PRN PRN Reason: Insomnia Last Admin: 09/22/23 22:45 Dose: 50 mg Allergies Allergies Allergy/AdvReac Type Severity Reaction Status Date / Time kiwi [KIWI] Allergy Mild HIVES Verified 07/07/23 10:07 mold [MOLD EXTRACTS*] Allergy Mild HIVES Verified 07/07/23 10:07 Assessment & Plan Assessment & Plan (1) Bipolar disorder with psychotic features: Status: Acute Code(s): F31.9 - Bipolar disorder, unspecified (2) Schizoaffective disorder, bipolar type: Status: Acute Code(s): F25.0 - Schizoaffective disorder, bipolar type Plan 33 yo female with a history of bipolar disorder with psychosis/schizoaffective disorder presents with acute brendon after stopping medications on 09/03 (Depakote). Plan: Re-start and stabilize regime Olanzapine 10 mg HS When recompensated, discuss THOMAS with pt and family. Collateral contact Family Intervention Medical Management of sx. 09/08/23 Increase Depakote to 1000 mg bid Increase Olanzapine to 20 mg daily Continue Haldol Labs 09/09/23. 09/09/23 Continue current regime 09/10/23 Symptoms of UTI Urine culture, Bactrim DS, Pyridium 09/11/23 Increase in delusional, disinhibited sx today. Haldol 10 mg po x 1 prn On 09/12 increase Haldol to 10 mg tid 09/12/22 Continue tx. 09/13/23 Pt has had a reasonable trial of Haldol with Olanzapine and Valproate which has not seemed to be stabilizing. By history, Olanzapine 40 mg has been effective Plan: Discontinue Haldol Increase Olanzapine to 20 mg bid. 09/15/23 Continue current regime 09/16/2023? Continue?current?regimen 09/18/2023: Continue current regimen and plans 09/19/22: Continue current regime and plan. 09/21/23: Continue tx. Lab has been asked to draw Depakote level for several days. 09/22: Continue current tx plan. 09/23: Valporic acid level 68.9 on 09/22. Continue current tx plan. 09/24 continue current tx plan 09/25 continue current tx plan 09/26/23: Abdominal pain, Ovarian pain-diagnostics are pending. 09/29/23: Decrease Olanzapine to 10 mg HS 09/30/23: Increase Invega to 4.5 mg daily Decrease Olanzapine to 5 mg HS Diflucan for 72 hours for yeast infection sx 10/04/23 Continue current plan. 10/06/23 Continue tx 10/07/23 Continue tx Hospitalist consult, LLAbd area of induration 2: no changes. Appreciate hospitalist consult today and recommendations 10/09: no changes 10/11: Symptom breakthrough- Increase Valproate to 1000 mg bid Olanzapine 10 mg HS 10/12: Lability persists- Incrase Olanzapine to 20 mg bid 10/13: CBCD, CMP, Valproate level 10/1410/14/23: Continue tx. Informed Consent: does not understand Reason for continued inpatient stay Substantial Risk for: rapid decompensation and med/psych decompensation Time Spent With Patient Time: Total time managing care of this patient today ____ minutes.
[2023-10-14 11:04] LABS: MANUAL DIFF FLAG NO
[2023-10-14 11:11] LABS: Basophils Percent Auto 0.5 % (0-2); Eosinophils Absolute Auto 0.2 X10*3/uL (0.0-0.4); Eosinophils Percent Auto 1.9 % (0-4); Hematocrit 36.9 % (37.0-47.0); Imm Gran Abs Auto 0.03 X10*3/uL (0.00-0.03); Imm Gran Pct Auto 0.4 % (0.0-0.4); Lymphocytes Absolute Auto 2.5 X10*3/uL (1.2-4.9); Lymphocytes Percent Auto 30.9 % (20-40); Mean Corpuscular HGB Conc 32.5 g/dl (31.0-35.0); Mean Corpuscular Hemoglobin 27.9 pg (27.0-33.0); Mean Corpuscular Volume 85.8 fL (80.0-98.0); Mean Platelet Volume 10.1 fL (9.4-12.3); Monocytes Absolute Auto 0.6 X10*3/uL (0.1-1.2); Monocytes Percent Auto 7.4 % (2-11); Neutrophils Absolute Auto 4.7 x10*3/uL (2.0-8.3); Neutrophils Percent Auto 58.9 % (45-73); Platelet Count 164 X10*3/uL (160-400); Red Cell Distribution Width 13.3 % (11.0-16.0); White Blood Count 7.9 X10*3/uL (4.8-10.8)
[2023-10-14 11:23] LABS: Valproate 45.2 mcg/mL (50.0-100.0)
[2023-10-14 11:26] LABS: Alanine Aminotransferase 12 U/L (0-31); Alkaline Phosphatase 69 U/L (39-117); Anion Gap 16 (12-20); Aspartate Amino Transferase 12 U/L (5-31); Bilirubin Total 0.4 mg/dL (0.0-1.0); Blood Urea Nitrogen 17 mg/dL (9-16); Calcium 9.6 mg/dL (8.4-10.2); Carbon Dioxide 28 mmol/L (22-29); Chloride 102 mmol/L (96-108); Estimated Glomerular Filt Rate > 60; Glucose Random 146 mg/dL (60-115); Potassium 3.9 mmol/L (3.3-5.1); Sodium 142 mmol/L (135-145); Total Protein 7.1 g/dL (6.5-8.0)
--- NOTE | 2023-10-14 15:17 | PC.NURSE ---
Attempted to do skin assessment and patient refused saying that she was and nobody believed her, that she had a miscarriage yesterday.
[2023-10-14 17:47] VITALS: BP 141/84; PULSE 90; RESP 18; TEMP 36.3; O2SAT 97
[2023-10-14 20:23] LABS: B Type Natriuretic Peptide < 10 pg/mL (<100)
[2023-10-14] MEDS: Divalproex Sodium Sprinkles 125 MG CAP.DR.SPR 1000 MG PO (20:40)
--- NOTE | 2023-10-14 21:02 | PM.EVENT ---
Event Note Date of Service: 10/14/23 Event Note: Patient with history of factor 5 Leiden is seen and evaluated for increasing bilateral lower leg edema. Patient states swelling in legs has increased significantly recently. Also notes increased pain in calves. Due to history of clotting disorder will get venous duplex of lower legs bilaterally, though suspicion for DVT is low. Have already ordered BNP which came back negative: suspicion for CHF quite low and no further workup for CHF indicated at this time. However, might trial small dose of Lasix if LE venous duplex negative to see if there is some fluid component to pt's edema. Apparently pt cannot get compression stockings in a size that would fit her and she cannot use MIGEL wrappings on the unit d/t ligature risk. Would also suggest elevating legs while in bed and encourage ambulation as much as possible. Time Spent With Patient Time: Total time managing care of this patient today ____ minutes.
--- NOTE | 2023-10-15 05:59 | PC.NURSE ---
Natashadana had an episode of urinary incontinence in the am. Patient awake at 0525. Patient did take a shower and changed her outfit.
[2023-10-15 07:47] VITALS: BP 136/70; PULSE 105; RESP 18; TEMP 36.8; O2SAT 96
[2023-10-15 08:16] LABS: Glucose, Whole Blood 166 mg/dL (60-115)
[2023-10-15] MEDS: OLANZapine ODT 10 MG TAB.RAPDIS 20 MG TRANSLINGU ×2 (08:32→21:19)
[2023-10-15] MEDS: Doxycycline Monohydrate 100 MG CAPSULE PO (08:34)
[2023-10-15] MEDS: atenoloL 25 MG TABLET 75 MG PO (08:34)
[2023-10-15] MEDS: Divalproex Sodium Sprinkles 125 MG CAP.DR.SPR 1000 MG PO ×2 (08:35→21:18)
[2023-10-15] MEDS: metFORMIN HCl ER 500 MG TAB.ER.24H PO (08:39)
--- NOTE | 2023-10-15 10:33 | P.PNPSI_ITS ---
Subjective Subjective Date of Service: 10/15/23 Reason For Visit: brendon,psychosis Subjective Notes: Conditional Voluntary Interim History: Team reports sleep improved last night. Labile, delusional, grandiose, angry and caustic today at times. At times calm and appropriate, apologetic Doppler eval negative bilateral lower extremities Medication Compliance: Yes Side effects from medications: No Attending Groups: No Review of Systems Acute medical concerns: No Medical Review of Systems: unchanged Review of Systems Review of Systems Yes Unobtainable due to mental status Mental Status Exam Mental Status Exam Patient Appearance: Unkempt Patient Orientation: Person and Place Level of Consciousness: Restless and Alert Patient Behavior: Guarded, Talkative, Suspicious, Hypersexual, Aggressive, Restless, Belligerent, Verbal Threats, Swearing, Anxious, Resistive to Care, Distractible, Good Eye Contact and Crying Mood Description: Hostile, Labile and Angry Affect Description: Hostile, Labile and Angry Patient Cognition Impaired: Yes Ability to Follow Directions: Fair Speech Pattern: Spontaneous Speech, Rambling, Rapid, Excessive and Loud Memory Description: Remote Impaired and Episodic Impaired Delusions: Paranoid Ideation, Grandiose and Present Perceptual Disturbances: Depersonalization and Derealization Thought Process: Racing, Illogical, Distracted and Rumination Thought Content: positive for Flight of Ideas, positive for Racing, positive for Circumstantial, positive for Perseveration, positive for Preoccupation, positive for Loose Associations, positive for Tangential and positive for Disorganized Depressive Symptoms: Insomnia, Increased Irritability and Difficulty Sleeping Abnormal Motor Activity Signs and Symptoms: Agitation and Restlessness Judgement: Poor Diagnostics Vital Signs (24Hr): Vital Signs - 24 hr 10/14/23 17:47 Temperature 97.3 F Pulse Rate 90 Respiratory Rate 18 Blood Pressure 141/84 H Pulse Oximetry 97 Oxygen Delivery Method Room Air BMI result Body Mass Index 59.6 Labs 10/14/23 11:00 10/14/23 11:00 Labs: Laboratory Results - last 48 hr 10/14/23 10/14/23 10/14/23 08:06 11:00 19:51 WBC 7.9 RBC 4.30 Hgb 12.0 Hct 36.9 L MCV 85.8 MCH 27.9 MCHC 32.5 RDW 13.3 Plt Count 164 MPV 10.1 Immature Gran % (Auto) 0.4 Neut % (Auto) 58.9 Lymph % (Auto) 30.9 [place] % (Auto) 7.4 Eos % (Auto) 1.9 Baso % (Auto) 0.5 Lymph # (Auto) 2.5 [place] # (Auto) 0.6 Eos # (Auto) 0.2 Baso # (Auto) 0.0 Abs Immat Gran (auto) 0.03 Absolute Neuts (auto) 4.7 Absolute Nucleated RBC 0.000 Nucleated RBC % (auto) 0.0 Sodium 142 Potassium 3.9 Chloride 102 Carbon Dioxide 28 Anion Gap 16 BUN 17 H Creatinine 0.75 Estim Creat Clear Calc 198.0 Estimated GFR > 60 POC Glucose 128 H Random Glucose 146 H Calcium 9.6 Total Bilirubin 0.4 AST 12 ALT 12 Alkaline Phosphatase 69 B-Natriuretic Peptide < 10 Total Protein 7.1 Albumin 4.0 Valproic Acid 45.2 L 10/15/23 08:09 WBC RBC Hgb Hct MCV MCH MCHC RDW Plt Count MPV Immature Gran % (Auto) Neut % (Auto) Lymph % (Auto) [place] % (Auto) Eos % (Auto) Baso % (Auto) Lymph # (Auto) [place] # (Auto) Eos # (Auto) Baso # (Auto) Abs Immat Gran (auto) Absolute Neuts (auto) Absolute Nucleated RBC Nucleated RBC % (auto) Sodium Potassium Chloride Carbon Dioxide Anion Gap BUN Creatinine Estim Creat Clear Calc Estimated GFR POC Glucose 166 H Random Glucose Calcium Total Bilirubin AST ALT Alkaline Phosphatase B-Natriuretic Peptide Total Protein Albumin Valproic Acid Imaging Radiology Impressions: ITS Impressions KUB X-Ray 09/26/23 10:33 IMPRESSION: * Nonobstructive bowel gas pattern with a moderate colonic stool burden. Pelvic/Transvag US 09/26/23 20:58 IMPRESSION: 1. Limited study due to patient body habitus and inability to tolerate transvaginal imaging. 2. The uterus is normal in size. The endometrial thickness is questionably 0.4 cm. 3. The right ovary is not seen. 4. The left ovary is not seen with certainty. Medications Medications Current Medications Acetaminophen (Acetaminophen 325 Mg Tablet) 650 mg PO Q6H PRN PRN Reason: Headache/Pain Mild Scale (1-3) Last Admin: 09/07/23 16:09 Dose: 650 mg Al Hydroxide/Mg Hydroxide (Magnesium Hydrox/Alum Hydrox 30 Ml Oral.Susp) 30 ml PO Q6H PRN PRN Reason: Heartburn/Nausea Atenolol (Atenolol 25 Mg Tablet) 75 mg PO DAILY [facility]; Protocol Last Admin: 10/15/23 08:34 Dose: 75 mg [place] Butter/Zinc Oxide ([place] Butter/Zinc Oxide Supp.Rect) 1 supp [place] BID PRN PRN Reason: Hemorrhoids Divalproex Sodium (Divalproex Sodium Sprinkles 125 Mg Cap.Dr.Spr) 1,000 mg PO BID [facility] Last Admin: 10/15/23 08:35 Dose: 1,000 mg Hydroxyzine HCl (Hydroxyzine Hcl 25 Mg Tablet) 25 mg PO Q6H PRN PRN Reason: Anxiety Magnesium Hydroxide (Milk Of Magnesia 30 Ml Oral.Susp) 30 ml PO DAILY PRN PRN Reason: Constipation Last Admin: 10/11/23 10:23 Dose: 30 ml Metformin HCl (Metformin Hcl Er 500 Mg Tab.Er.24h) 500 mg PO DAILY [facility] Last Admin: 10/15/23 08:39 Dose: 500 mg Nystatin (Nystatin Powder 15 Gm Bottle) 1 appl TOPICAL BID [facility]; Protocol Last Admin: 10/15/23 08:39 Dose: Not Given Nystatin (Nystatin Cream 15 Gm Tube) 1 appl TOPICAL BID [facility]; Protocol Last Admin: 10/15/23 08:39 Dose: Not Given Olanzapine (Olanzapine Odt 10 Mg Tab.Rapdis) 10 mg TRANSLINGU TID PRN PRN Reason: agitation Last Admin: 10/14/23 05:02 Dose: 10 mg Olanzapine (Olanzapine Odt 10 Mg Tab.Rapdis) 20 mg TRANSLINGU BID [facility] Last Admin: 10/15/23 08:32 Dose: 20 mg Trazodone HCl (Trazodone Hcl 50 Mg Tablet) 50 mg PO BEDTIME MRX1 PRN PRN Reason: Insomnia Last Admin: 09/22/23 22:45 Dose: 50 mg Allergies Allergies Allergy/AdvReac Type Severity Reaction Status Date / Time kiwi [KIWI] Allergy Mild HIVES Verified 07/07/23 10:07 mold [MOLD EXTRACTS*] Allergy Mild HIVES Verified 07/07/23 10:07 Assessment & Plan Assessment & Plan (1) Bipolar disorder with psychotic features: Status: Acute Code(s): F31.9 - Bipolar disorder, unspecified (2) Schizoaffective disorder, bipolar type: Status: Acute Code(s): F25.0 - Schizoaffective disorder, bipolar type Plan 33 yo female with a history of bipolar disorder with psychosis/schizoaffective disorder presents with acute brendon after stopping medications on 09/03 (Depakote). Plan: Re-start and stabilize regime Olanzapine 10 mg HS When recompensated, discuss THOMAS with pt and family. Collateral contact Family Intervention Medical Management of sx. 09/08/23 Increase Depakote to 1000 mg bid Increase Olanzapine to 20 mg daily Continue Haldol Labs 09/09/23. 09/09/23 Continue current regime 09/10/23 Symptoms of UTI Urine culture, Bactrim DS, Pyridium 09/11/23 Increase in delusional, disinhibited sx today. Haldol 10 mg po x 1 prn On 09/12 increase Haldol to 10 mg tid 09/12/22 Continue tx. 09/13/23 Pt has had a reasonable trial of Haldol with Olanzapine and Valproate which has not seemed to be stabilizing. By history, Olanzapine 40 mg has been effective Plan: Discontinue Haldol Increase Olanzapine to 20 mg bid. 09/15/23 Continue current regime 09/16/2023? Continue?current?regimen 09/18/2023: Continue current regimen and plans 09/19/22: Continue current regime and plan. 09/21/23: Continue tx. Lab has been asked to draw Depakote level for several days. 09/22: Continue current tx plan. 09/23: Valporic acid level 68.9 on 09/22. Continue current tx plan. 09/24 continue current tx plan 09/25 continue current tx plan 09/26/23: Abdominal pain, Ovarian pain-diagnostics are pending. 09/29/23: Decrease Olanzapine to 10 mg HS 09/30/23: Increase Invega to 4.5 mg daily Decrease Olanzapine to 5 mg HS Diflucan for 72 hours for yeast infection sx 10/04/23 Continue current plan. 10/06/23 Continue tx 10/07/23 Continue tx Hospitalist consult, LLAbd area of induration 2/3: no changes. Appreciate hospitalist consult today and recommendations 10/09: no changes 6: Symptom breakthrough- Increase Valproate to 1000 mg bid Olanzapine 10 mg HS 10/12: Lability persists- Incrase Olanzapine to 20 mg bid 10/13: CBCD, CMP, Valproate level 10/1410/14/23: Continue tx. 10/15/23 Continue tx Informed Consent: does not understand Reason for continued inpatient stay Substantial Risk for: rapid decompensation Time Spent With Patient Time: Total time managing care of this patient today ____ minutes.
[2023-10-15 16:45] VITALS: BP 112/62; PULSE 88; RESP 16; TEMP 36.7; O2SAT 95
[2023-10-15 18:00] VITALS: BP 122/69; PULSE 92; RESP 16; TEMP 36.6; O2SAT 96
[2023-10-16] MEDS: OLANZapine ODT 10 MG TAB.RAPDIS 20 MG TRANSLINGU (08:01)
[2023-10-16] MEDS: atenoloL 25 MG TABLET 75 MG PO (08:02)
[2023-10-16] MEDS: Divalproex Sodium Sprinkles 125 MG CAP.DR.SPR 1000 MG PO ×2 (08:02→21:00)
[2023-10-16] MEDS: metFORMIN HCl ER 500 MG TAB.ER.24H PO (08:03)
[2023-10-16] MEDS: Furosemide 20 MG TABLET PO (08:07)
[2023-10-16 08:15] VITALS: BP 136/78; PULSE 88; RESP 18; TEMP 36.3; O2SAT 100
[2023-10-16 08:46] LABS: Glucose, Whole Blood 136 mg/dL (60-115)
[2023-10-16 16:53] VITALS: BP 123/74; PULSE 84; RESP 18; TEMP 36.3; O2SAT 99
[2023-10-16] MEDS: chlorproMAZINE HCl 25 MG TABLET 50 MG PO ×2 (18:09→21:00)
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
[2023-10-16] MEDS: LORazepam 1 MG TABLET PO (21:00)
[2023-10-17 02:45] VITALS: BMI 63.4
[2023-10-17 08:10] LABS: Glucose, Whole Blood 134 mg/dL (60-115)
[2023-10-17 08:30] VITALS: BP 161/76; PULSE 102; RESP 18; TEMP 36.2; O2SAT 99
[2023-10-17] MEDS: Divalproex Sodium Sprinkles 125 MG CAP.DR.SPR 1000 MG PO ×2 (08:39→20:49)
[2023-10-17] MEDS: chlorproMAZINE HCl 25 MG TABLET 50 MG PO ×4 (08:39→20:49)
[2023-10-17] MEDS: atenoloL 25 MG TABLET 75 MG PO (08:39)
[2023-10-17] MEDS: metFORMIN HCl ER 500 MG TAB.ER.24H PO (08:40)
--- NOTE | 2023-10-17 13:10 | PM.EVENT ---
Event Note Date of Service: 10/18/23 Event Note: S Asked to See patient for LE swelling. Pt seen and examined. Reports intermittent swelling in the past. Reports some discomfort but denies pain. O Vitals - last documented Gen - NAD Legs - b/l LE edema, 1+ pitting; most pronounced in the feet; some erythema noted A/P 33 yo F with morbid obesity admitted to . Medical consult requested for LE edema. Chart reviewed. Received a 1 time dose of lasix on 10/16; On exam, she does have swelling, but does not appear to be severe. Can continue with oral lasix for an additional 4-5 days (ordered) to see if helps; otherwise compression stocks if able and elevation of legs is recommended Do not feel that she has an active infection that would need antibiotics. Signing off, please reconsult PRN. Time Spent With Patient Time: Total time managing care of this patient today ____ minutes.
[2023-10-17] MEDS: Furosemide 20 MG TABLET PO (13:22)
--- NOTE | 2023-10-17 19:51 | P.PNPSI_ITS ---
Subjective Subjective Date of Service: 10/17/23 Reason For Visit: brendon,psychosis Interim History: met with patient; discussed with team; reviewed chart remains disorganized in speech and behavior; hypersexual and hyperverbal; only slept one hour -will order depakote level and associated labs -examined Lower limbs: b/l lower limb edema, with some erythema. review of chart shows hospitalist ELIGIO ordered lasix 20mg one time dose; will order f/u Mental Status Exam Mental Status Exam Patient Appearance: Unkempt Patient Orientation: Person and Place Level of Consciousness: Restless and Alert Patient Behavior: Guarded, Talkative, Suspicious, Hypersexual, Aggressive, Restless, Belligerent, Verbal Threats, Swearing, Anxious, Resistive to Care, Distractible, Good Eye Contact and Crying Mood Description: Hostile, Labile and Angry Affect Description: Hostile, Labile and Angry Patient Cognition Impaired: Yes Ability to Follow Directions: Fair Speech Pattern: Spontaneous Speech, Rambling, Rapid, Excessive and Loud Memory Description: Remote Impaired and Episodic Impaired Delusions: Paranoid Ideation, Grandiose and Present Perceptual Disturbances: Depersonalization and Derealization Thought Process: Racing, Illogical, Distracted and Rumination Thought Content: positive for Flight of Ideas, positive for Racing, positive for Circumstantial, positive for Perseveration, positive for Preoccupation, positive for Loose Associations, positive for Tangential and positive for Disorganized Depressive Symptoms: Insomnia, Increased Irritability and Difficulty Sleeping Abnormal Motor Activity Signs and Symptoms: Agitation and Restlessness Judgement: Poor Diagnostics Vital Signs (24Hr): BMI result Body Mass Index 63.4 Labs 10/14/23 11:00 10/14/23 11:00 Labs: Laboratory Results - last 48 hr 10/16/23 10/17/23 08:03 08:00 POC Glucose 136 H 134 H Imaging Radiology Impressions: ITS Impressions KUB X-Ray 09/26/23 10:33 IMPRESSION: * Nonobstructive bowel gas pattern with a moderate colonic stool burden. Pelvic/Transvag US 09/26/23 20:58 IMPRESSION: 1. Limited study due to patient body habitus and inability to tolerate transvaginal imaging. 2. The uterus is normal in size. The endometrial thickness is questionably 0.4 cm. 3. The right ovary is not seen. 4. The left ovary is not seen with certainty. Venous Duplex 10/15/23 10:30 IMPRESSION: No DVT demonstrated in the bilateral lower extremity. Bilateral lower leg calf veins are not visualized. Medications Medications Current Medications Acetaminophen (Acetaminophen 325 Mg Tablet) 650 mg PO Q6H PRN PRN Reason: Headache/Pain Mild Scale (1-3) Last Admin: 09/07/23 16:09 Dose: 650 mg Al Hydroxide/Mg Hydroxide (Magnesium Hydrox/Alum Hydrox 30 Ml Oral.Susp) 30 ml PO Q6H PRN PRN Reason: Heartburn/Nausea Atenolol (Atenolol 25 Mg Tablet) 75 mg PO DAILY [facility]; Protocol Last Admin: 10/17/23 08:39 Dose: 75 mg Chlorpromazine HCl (Chlorpromazine Hcl 25 Mg Tablet) 50 mg PO QID [facility] Last Admin: 10/17/23 18:32 Dose: 50 mg Chlorpromazine HCl (Chlorpromazine Hcl 25 Mg Tablet) 50 mg PO TID PRN PRN Reason: brendon, psychosis [place] Butter/Zinc Oxide ([place] Butter/Zinc Oxide Supp.Rect) 1 supp [place] BID PRN PRN Reason: Hemorrhoids Divalproex Sodium (Divalproex Sodium Sprinkles 125 Mg [place].) 1,000 mg PO BID [facility] Last Admin: 10/17/23 08:39 Dose: 1,000 mg Furosemide (Furosemide 20 Mg Tablet) 20 mg PO DAILY [facility]; Protocol Stop: 10/21/23 09:01 Last Admin: 10/17/23 13:22 Dose: 20 mg Hydroxyzine HCl (Hydroxyzine Hcl 25 Mg Tablet) 25 mg PO Q6H PRN PRN Reason: Anxiety Lorazepam (Lorazepam 1 Mg Tablet) 1 mg PO BEDTIME [facility] Last Admin: 10/16/23 21:00 Dose: 1 mg Magnesium Hydroxide (Milk Of Magnesia 30 Ml Oral.Susp) 30 ml PO DAILY PRN PRN Reason: Constipation Last Admin: 10/11/23 10:23 Dose: 30 ml Metformin HCl (Metformin Hcl Er 500 Mg Tab.Er.24h) 500 mg PO DAILY [facility] Last Admin: 10/17/23 08:40 Dose: 500 mg Nystatin (Nystatin Powder 15 Gm Bottle) 1 appl TOPICAL BID [facility]; Protocol Last Admin: 10/17/23 12:05 Dose: Not Given Nystatin (Nystatin Cream 15 Gm Tube) 1 appl TOPICAL BID [facility]; Protocol Last Admin: 10/17/23 12:05 Dose: Not Given Trazodone HCl (Trazodone Hcl 50 Mg Tablet) 50 mg PO BEDTIME MRX1 PRN PRN Reason: Insomnia Last Admin: 09/22/23 22:45 Dose: 50 mg Allergies Allergies Allergy/AdvReac Type Severity Reaction Status Date / Time kiwi [KIWI] Allergy Mild HIVES Verified 07/07/23 10:07 mold [MOLD EXTRACTS*] Allergy Mild HIVES Verified 07/07/23 10:07 Assessment & Plan Assessment & Plan (1) Bipolar disorder with psychotic features: Status: Acute Code(s): F31.9 - Bipolar disorder, unspecified (2) Schizoaffective disorder, bipolar type: Status: Acute Code(s): F25.0 - Schizoaffective disorder, bipolar type Plan 33 yo female with a history of bipolar disorder with psychosis/schizoaffective disorder presents with acute brendon after stopping medications on 09/03 (Depakote). Plan: Re-start and stabilize regime Olanzapine 10 mg HS When recompensated, discuss THOMAS with pt and family. Collateral contact Family Intervention Medical Management of sx. 09/08/23 Increase Depakote to 1000 mg bid Increase Olanzapine to 20 mg daily Continue Haldol Labs 09/09/23. 09/09/23 Continue current regime 09/10/23 Symptoms of UTI Urine culture, Bactrim DS, Pyridium 09/11/23 Increase in delusional, disinhibited sx today. Haldol 10 mg po x 1 prn On 09/12 increase Haldol to 10 mg tid 09/12/22 Continue tx. 09/13/23 Pt has had a reasonable trial of Haldol with Olanzapine and Valproate which has not seemed to be stabilizing. By history, Olanzapine 40 mg has been effective Plan: Discontinue Haldol Increase Olanzapine to 20 mg bid. 09/15/23 Continue current regime 09/16/2023? Continue?current?regimen 09/18/2023: Continue current regimen and plans 09/19/22: Continue current regime and plan. 09/21/23: Continue tx. Lab has been asked to draw Depakote level for several days. 09/22: Continue current tx plan. 09/23: Valporic acid level 68.9 on 09/22. Continue current tx plan. 09/24 continue current tx plan 09/25 continue current tx plan 09/26/23: Abdominal pain, Ovarian pain-diagnostics are pending. 09/29/23: Decrease Olanzapine to 10 mg HS 09/30/23: Increase Invega to 4.5 mg daily Decrease Olanzapine to 5 mg HS Diflucan for 72 hours for yeast infection sx 10/04/23 Continue current plan. 10/06/23 Continue tx 10/07/23 Continue tx Hospitalist consult, LLAbd area of induration 10/08: no changes. Appreciate hospitalist consult today and recommendations 10/09: no changes 10/11: Symptom breakthrough- Increase Valproate to 1000 mg bid Olanzapine 10 mg HS 10/12: Lability persists- Incrase Olanzapine to 20 mg bid 10/13: CBCD, CMP, Valproate level 10/1410/14/23: Continue tx. 10/15/23 Continue tx 10/16/23: Discontinue Olanzapine Chlorpromazine 50 mg qid and 50 mg tid prn psychosis, brendon Ammonia level 10/17. 10/17 remains disorganized in speech and behavior; hypersexual and hyperverbal; only slept one hour -will order depakote level and associated labs -examined Lower limbs: b/l lower limb edema, with some erythema. review of chart shows hospitalist PA ordered lasix 20mg one time dose; will order f/u Patient educated on: diagnosis and medical condition Informed Consent: understands, does not understand and further education needed Reason for continued inpatient stay Substantial Risk for: inability to function Time Spent With Patient Time: Total time managing care of this patient today ____ minutes.
[2023-10-17 19:55] VITALS: BP 124/62; PULSE 91; TEMP 36.3; O2SAT 99
[2023-10-17] MEDS: LORazepam 1 MG TABLET PO (20:49)
[2023-10-18] MEDS: Acetaminophen 325 MG TABLET 650 MG PO (01:12)
[2023-10-18] MEDS: traZODone HCL 50 MG TABLET PO (01:12)
[2023-10-18 07:57] LABS: Valproate 57.1 mcg/mL (50.0-100.0)
[2023-10-18 08:03] LABS: Alanine Aminotransferase 13 U/L (0-31); Albumin Level 3.8 g/dL (3.5-5.0); Alkaline Phosphatase 80 U/L (39-117); Aspartate Amino Transferase 12 U/L (5-31); Bilirubin Direct 0.2 mg/dL (0.0-0.5); Bilirubin Total 0.3 mg/dL (0.0-1.0); Total Protein 7.1 g/dL (6.5-8.0)
[2023-10-18 08:16] LABS: Ammonia 38 umol/L (13-55)
[2023-10-18 08:35] VITALS: BP 109/66; PULSE 102; RESP 18; TEMP 36.2; O2SAT 97
[2023-10-18 08:55] LABS: Glucose, Whole Blood 142 mg/dL (60-115)
[2023-10-18] MEDS: chlorproMAZINE HCl 25 MG TABLET 50 MG PO ×3 (09:14→17:06)
[2023-10-18] MEDS: Divalproex Sodium Sprinkles 125 MG CAP.DR.SPR 1000 MG PO ×2 (09:14→21:14)
[2023-10-18] MEDS: metFORMIN HCl ER 500 MG TAB.ER.24H PO (09:15)
[2023-10-18] MEDS: atenoloL 25 MG TABLET 75 MG PO (09:15)
[2023-10-18] MEDS: Furosemide 20 MG TABLET PO (09:15)
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
[2023-10-18 16:55] VITALS: BP 135/62; PULSE 78; RESP 16; TEMP 36.3; O2SAT 95
--- NOTE | 2023-10-18 19:58 | PC.NURSE ---
Upon approach Zeinab is calm and pleasant, thought process appears disorganized, she has noticeable bilateral +4 pitting edema, bilateral feet are red, warm to touch, she has crust on third toe on left foot. Right foot appears to be oozing serous drainage, bilateral feet appear dry. Tom notified, Zeinab was seen per Dr. Delgado yesterday per consult note was started on Lasix. Reached out to Purvi Jerez from wound care, wound consult put in. Foot soak done, throughout the day feet elevated intermittently.
--- NOTE | 2023-10-18 20:53 | PM.EVENT ---
Event Note Date of Service: 10/18/23 Event Note: STAT consult placed for evaluation of BLE edema- Pt has been seen and evaluated three time this week for this complaint and presentation appears consistent with prior examinations with limited improvement. Was started on lasix yesterday. BLE venous duplex negative for DVT. There is no evidence of infection. There is 2+ pitting edema. No open wounds. No significant erythema. Pt is morbidly obese. She is not experiencing any difficulty breathing and vital signs are stable. Little suspicion for acute CHF. At this time, pt can continue on lasix as previously recommended. She would greatly benefit from compression stockings and recommend reaching out to outpt suppliers who can accommodate calf size if hospital does not have size in house. She needs to be compliant with low sodium diet. Pt should be out of bed and encouraged to ambulate to decrease dependent edema. Medications that can contribute to edema should be reduced. Zyprexa was discontinued only 2 days ago and was replaced with thorazine. Pt seen urgently given stat consult, no changes in management recommended at this time. Will reevaluate in the morning. Time Spent With Patient Time: Total time managing care of this patient today ____ minutes.
[2023-10-18] MEDS: LORazepam 1 MG TABLET PO (21:14)
[2023-10-19 08:00] VITALS: BP 166/82; PULSE 98; RESP 18; TEMP 36.3; O2SAT 98
[2023-10-19] MEDS: atenoloL 25 MG TABLET 75 MG PO (08:13)
[2023-10-19] MEDS: Divalproex Sodium Sprinkles 125 MG CAP.DR.SPR 1000 MG PO ×2 (08:13→20:52)
[2023-10-19] MEDS: chlorproMAZINE HCl 100 MG TABLET PO ×3 (08:14→20:52)
[2023-10-19] MEDS: Furosemide 20 MG TABLET PO (08:14)
[2023-10-19] MEDS: metFORMIN HCl ER 500 MG TAB.ER.24H PO (08:14)
[2023-10-19 08:49] LABS: Glucose, Whole Blood 120 mg/dL (60-115)
--- NOTE | 2023-10-19 10:02 | P.PNPSI_ITS ---
Subjective Subjective Date of Service: 10/19/23 Reason For Visit: brendon,psychosis Interim History: Met with patient; discussed with team Patient pleasant on approach but quickly starts making sexual comments to justowriter operator. no sleep last night; remains hypervebal and making hypersexual comments, sometimes graphic to staff and sometimes peers making delusional remarks about refused Thorazine last night, but took it this morning Hospitalist ELIGIO to examine patient's legs Mental Status Exam Mental Status Exam Patient Appearance: Unkempt Patient Orientation: Person and Place Level of Consciousness: Restless and Alert Patient Behavior: Guarded, Talkative, Suspicious, Hypersexual, Aggressive, Restless, Belligerent, Verbal Threats, Swearing, Anxious, Resistive to Care, Distractible, Good Eye Contact and Crying Mood Description: Hostile, Labile and Angry Affect Description: Hostile, Labile and Angry Patient Cognition Impaired: Yes Ability to Follow Directions: Fair Speech Pattern: Spontaneous Speech, Rambling, Rapid, Excessive and Loud Memory Description: Remote Impaired and Episodic Impaired Delusions: Paranoid Ideation, Grandiose and Present Perceptual Disturbances: Depersonalization and Derealization Thought Process: Racing, Illogical, Distracted and Rumination Thought Content: positive for Flight of Ideas, positive for Racing, positive for Circumstantial, positive for Perseveration, positive for Preoccupation, positive for Loose Associations, positive for Tangential and positive for Disorganized Depressive Symptoms: Insomnia, Increased Irritability and Difficulty Sleeping Abnormal Motor Activity Signs and Symptoms: Agitation and Restlessness Judgement: Poor Diagnostics Vital Signs (24Hr): Vital Signs - 24 hr 10/18/23 16:55 10/19/23 08:00 Temperature 97.4 F 97.3 F Pulse Rate 78 98 Respiratory Rate 16 18 Blood Pressure 135/62 166/82 H Pulse Oximetry 95 98 Oxygen Delivery Method Room Air Room Air BMI result Body Mass Index 63.4 Labs 10/20/23 10:37 10/20/23 10:37 Labs: Laboratory Results - last 48 hr 10/18/23 10/18/23 10/19/23 07:35 08:37 08:45 POC Glucose 142 H 120 H Total Bilirubin 0.3 Direct Bilirubin 0.2 AST 12 ALT 13 Alkaline Phosphatase 80 Ammonia 38 Total Protein 7.1 Albumin 3.8 Valproic Acid 57.1 Imaging Radiology Impressions: ITS Impressions KUB X-Ray 09/26/23 10:33 IMPRESSION: * Nonobstructive bowel gas pattern with a moderate colonic stool burden. Pelvic/Transvag US 09/26/23 20:58 IMPRESSION: 1. Limited study due to patient body habitus and inability to tolerate transvaginal imaging. 2. The uterus is normal in size. The endometrial thickness is questionably 0.4 cm. 3. The right ovary is not seen. 4. The left ovary is not seen with certainty. Venous Duplex 10/15/23 10:30 IMPRESSION: No DVT demonstrated in the bilateral lower extremity. Bilateral lower leg calf veins are not visualized. Medications Medications Current Medications Acetaminophen (Acetaminophen 325 Mg Tablet) 650 mg PO Q6H PRN PRN Reason: Headache/Pain Mild Scale (1-3) Last Admin: 10/18/23 01:12 Dose: 650 mg Al Hydroxide/Mg Hydroxide (Magnesium Hydrox/Alum Hydrox 30 Ml Oral.Susp) 30 ml PO Q6H PRN PRN Reason: Heartburn/Nausea Atenolol (Atenolol 25 Mg Tablet) 75 mg PO DAILY [facility]; Protocol Last Admin: 10/19/23 08:13 Dose: 75 mg Chlorpromazine HCl (Chlorpromazine Hcl 25 Mg Tablet) 50 mg PO TID PRN PRN Reason: brendon, psychosis Chlorpromazine HCl (Chlorpromazine Hcl 100 Mg Tablet) 100 mg PO TID [facility] Last Admin: 10/19/23 08:14 Dose: 100 mg [place] Butter/Zinc Oxide ([place] Butter/Zinc Oxide Supp.Rect) 1 supp [place] BID PRN PRN Reason: Hemorrhoids Divalproex Sodium (Divalproex Sodium Sprinkgarry 125 Mg ) 1,000 mg PO BID [facility] Last Admin: 10/19/23 08:13 Dose: 1,000 mg Furosemide (Furosemide 20 Mg Tablet) 20 mg PO DAILY [facility]; Protocol Stop: 10/21/23 09:01 Last Admin: 10/19/23 08:14 Dose: 20 mg Hydroxyzine HCl (Hydroxyzine Hcl 25 Mg Tablet) 25 mg PO Q6H PRN PRN Reason: Anxiety Lamotrigine (Lamotrigine 25 Mg Tablet) 25 mg PO BEDTIME [facility] Last Admin: 10/18/23 21:34 Dose: Not Given Lorazepam (Lorazepam 1 Mg Tablet) 1 mg PO BEDTIME [facility] Last Admin: 10/18/23 21:14 Dose: 1 mg Magnesium Hydroxide (Milk Of Magnesia 30 Ml Oral.Susp) 30 ml PO DAILY PRN PRN Reason: Constipation Last Admin: 10/11/23 10:23 Dose: 30 ml Metformin HCl (Metformin Hcl Er 500 Mg Tab.Er.24h) 500 mg PO DAILY [facility] Last Admin: 10/19/23 08:14 Dose: 500 mg Nystatin (Nystatin Powder 15 Gm Bottle) 1 appl TOPICAL BID [facility]; Protocol Last Admin: 10/18/23 22:56 Dose: Not Given Nystatin (Nystatin Cream 15 Gm Tube) 1 appl TOPICAL BID [facility]; Protocol Last Admin: 10/18/23 22:55 Dose: Not Given Trazodone HCl (Trazodone Hcl 50 Mg Tablet) 50 mg PO BEDTIME MRX1 PRN PRN Reason: Insomnia Last Admin: 10/18/23 01:12 Dose: 50 mg Allergies Allergies Allergy/AdvReac Type Severity Reaction Status Date / Time kiwi [KIWI] Allergy Mild HIVES Verified 07/07/23 10:07 mold [MOLD EXTRACTS*] Allergy Mild HIVES Verified 07/07/23 10:07 Assessment & Plan Assessment & Plan (1) Bipolar disorder with psychotic features: Status: Acute Code(s): F31.9 - Bipolar disorder, unspecified (2) Schizoaffective disorder, bipolar type: Status: Acute Code(s): F25.0 - Schizoaffective disorder, bipolar type Plan 33 yo female with a history of bipolar disorder with psychosis/schizoaffective disorder presents with acute brendon after stopping medications on 09/03 (Depakote). Plan: Re-start and stabilize regime Olanzapine 10 mg HS When recompensated, discuss THOMAS with pt and family. Collateral contact Family Intervention Medical Management of sx. 09/08/23 Increase Depakote to 1000 mg bid Increase Olanzapine to 20 mg daily Continue Haldol Labs 09/09/23. 09/09/23 Continue current regime 09/10/23 Symptoms of UTI Urine culture, Bactrim DS, Pyridium 09/11/23 Increase in delusional, disinhibited sx today. Haldol 10 mg po x 1 prn On 09/12 increase Haldol to 10 mg tid 09/12/22 Continue tx. 09/13/23 Pt has had a reasonable trial of Haldol with Olanzapine and Valproate which has not seemed to be stabilizing. By history, Olanzapine 40 mg has been effective Plan: Discontinue Haldol Increase Olanzapine to 20 mg bid. 09/15/23 Continue current regime 09/16/2023? Continue?current?regimen 09/18/2023: Continue current regimen and plans 09/19/22: Continue current regime and plan. 09/21/23: Continue tx. Lab has been asked to draw Depakote level for several days. 09/22: Continue current tx plan. 09/23: Valporic acid level 68.9 on 09/22. Continue current tx plan. 09/24 continue current tx plan 09/25 continue current tx plan 09/26/23: Abdominal pain, Ovarian pain-diagnostics are pending. 09/29/23: Decrease Olanzapine to 10 mg HS 09/30/23: Increase Invega to 4.5 mg daily Decrease Olanzapine to 5 mg HS Diflucan for 72 hours for yeast infection sx 10/04/23 Continue current plan. 10/06/23 Continue tx 10/07/23 Continue tx Hospitalist consult, LLAbd area of induration 10/08: no changes. Appreciate hospitalist consult today and recommendations 10/09: no changes 10/11: Symptom breakthrough- Increase Valproate to 1000 mg bid Olanzapine 10 mg HS 10/12: Lability persists- Incrase Olanzapine to 20 mg bid 10/13: CBCD, CMP, Valproate level 10/1410/14/23: Continue tx. 10/15/23 Continue tx 10/16/23: Discontinue Olanzapine Chlorpromazine 50 mg qid and 50 mg tid prn psychosis, brendon Ammonia level 10/17. 10/17 remains disorganized in speech and behavior; hypersexual and hyperverbal; only slept one hour -will order depakote level and associated labs -examined Lower limbs: b/l lower limb edema, with some erythema. review of chart shows hospitalist PA ordered lasix 20mg one time dose; will order f/u 10/18/22 Continue lasix trial Lamictal 25 mg hs Increase Chlorpromazine to 100 mg tid and monitor for oversedation- Goal is to help pt sleep, recompensate. 10/19 continue current treatment plan Patient educated on: diagnosis Reason for continued inpatient stay Substantial Risk for: inability to function Time Spent With Patient Time: Total time managing care of this patient today ____ minutes.
--- NOTE | 2023-10-19 12:39 | PC.NURSE ---
Contacted production support developer per consult request. Pt was seen - Dermacin ordered for feet BID to prevent skin splitting, coloplast put over open wounds on feet. Recommended to elevate legs 4X per day.
--- NOTE | 2023-10-19 12:59 | HO.WOUND ---
Wound Consult: Follow up 33yr old?Female admitted to [facility] on 09/06/23 to the Behavioral Health Unit - See progress notes and H&P for detailed history.? Wound consult follow up for Right Breast and skin folds in addition to bilateral Lower Leg edema. Patient agreeable to assessment and photo documentation.? Skin folds assessed and are clean without significant evidence of Fungal dermatitis there is evidence of MASD noted to the right breast. Reinforced things patient can do to aid in resolving MASD. Shower Daily - keep skin dry and clean. Apply topical treatments twice daily or as ordered continue for 10-14 days past rash clearing. Interdry use. Right Breast area of Hidradenitis Suppurative within ski fold - partial thickness tissue loss no induration or erythema noted. Continue with interdry for moisture translocation and wicking properties. The left abd fold was assessed -he been seen and documented by Hospitalist - there is a small soft inderated red purple intact area of tissue - not consistent with Hidradenitis Suppurative - no open tissue at this time direct care team should watch for increased erythema and increased induration. The observed bilateral inner thighs and breast and axilla are noted for scarring and tract like old injury consistent with Hidradenitis Suppurative. Bilateral Legs were assessed significant swelling and patchy areas redness noted - no warmth noted and on the right dorsal side of foot small skin tear due to fluid overload noted leaking serous filled fluid - hydrocolloid applied. The left great toe is red swollen and has partial thickness tissue loss noted along the toenail - hydrocolloid applied. Outpatient recommendation to follow up with Podiatry. Advised to elevate lower legs 4 times a day for 20 mins and PRN. TT with provider to order Dermacerin cream from pharmacy to donate moisture and allow for moist wound healing recommend applying 1-2 days. The patients fluid overload is medically treated and is currently receiving lasix - in addition she will benefit from compression therapy. Discussed with outpt wound clinic compression supplies as inpatient does not have any at this time. Given the patient calf circumference (75cm) she would need size K and Outpatient Wound Clinic does not carry past size G. Discussed with provider to consider Edema Wear Stockings for compression. These would be unit ordered and provider will work to obtain product. The patient will need size medium and large. Topical Wound Care Recommendations 1. Bilateral Breast, ABD skin fold and Groin - Encourage patient to shower at least daily if not twice a day. Gently cleanse with Ph balanced soap and water, allow to dry - keep skin fold open to air to allow for tissue to completely dry. Then apply Antifungal powder twice daily. ?Apply for 10-14 days past point of clinical clearing. Consider use of Interdry Sheets to aid in translocating moisture. May apply barrier cream to open areas at bases of inner thigh skin folds. 2. Right Foot and Left Great Toe and 3rd toe - Cleanse with routine bathing and or NS, pat dry. Cover open wounds with cut to size Hydrocolloid dressing change every 3 days and PRN. Apply Dermacerin cream to bilateral lower legs 1-2 times a day to help keep skin supple. Elevate Bilateral lower legs throughout the day on pillows. If compression socks arrive TT wound care nurse for application and education. Re-consult wound care Nurse for wound deterioration or wound changes.
--- NOTE | 2023-10-19 13:45 | PM.EVENT ---
Event Note Date of Service: 10/19/23 Event Note: Pt seen and examined with Otilia Sahni NP, for reevaluation of BLE edema Exam reveals 1+ edema BLE edema greatest in bilateral feet. There are small skin breaks with minimal serous drainage to the dorsal aspect of the R foot and medial nailfold of L great toe. There is onychomycosis noted on the tails with raised nailbed of L 3rd toe. There is mild erythema of the BLE 2/2 swelling. Tingling sensation in legs is 2/2 to swelling. There is no necrosis or evidence of infection at this time that warrants antibiotic therapy or debridement. See photos in wound RN note Recommendations- continue with previous recommendations: -can continue with lasix 20mg if improvement in symptoms -Encourage patient to ambulate and elevate legs as much as possible -compression wraps/stockings if possible -Reviewed wound Rn recommendations. Continue with wound care as recommended -low sodium diet Please continue working with flow floor attendant. If there is concern for infection, please advise her to reach out to us. If there are any further questions, concerns, or acute medical issues, please reach out. Discussed with psychiatric provider. Time Spent With Patient Time: Total time managing care of this patient today ____ minutes.
[2023-10-19] MEDS: Mineral Oil/Petrolatum,White 106 GM Tube 1 APPL TOPICAL (15:53)
[2023-10-19 16:49] VITALS: BP 133/68; PULSE 87; RESP 16; TEMP 36.5; O2SAT 99
[2023-10-19] MEDS: LORazepam 1 MG TABLET PO (20:52)
[2023-10-19] MEDS: lamoTRIgine 25 MG TABLET PO (20:52)
--- NOTE | 2023-10-20 | ECG_ITS ---
Test Reason : SOB Blood Pressure : / mmHG Vent. Rate : 127 BPM Atrial Rate : 127 BPM P-R Int : 142 ms QRS Dur : 088 ms QT Int : 312 ms P-R-T Axes : 061 057 027 degrees QTc Int : 453 ms Sinus tachycardia Otherwise normal ECG When compared with ECG of 14-OCT-2023 11:23, Vent. rate has increased BY 44 BPM Referred By: Rianna Santos Electronically Signed By:Car Quintanilla
[2023-10-20 07:45] VITALS: BP 120/62; PULSE 140; RESP 20; TEMP 37; O2SAT 98
[2023-10-20 08:10] LABS: Glucose, Whole Blood 128 mg/dL (60-115)
[2023-10-20 08:45] VITALS: BP 129/80; PULSE 136; RESP 24; TEMP 38.6; O2SAT 96
[2023-10-20 08:54] LABS: Glucose, Whole Blood 185 mg/dL (60-115)
[2023-10-20 10:54] LABS: Hematocrit 36.4 % (37.0-47.0); Hemoglobin 12.2 g/dl (12.0-16.0); Mean Corpuscular HGB Conc 33.5 g/dl (31.0-35.0); Mean Corpuscular Hemoglobin 28.4 pg (27.0-33.0); Mean Corpuscular Volume 84.8 fL (80.0-98.0); Mean Platelet Volume 10.1 fL (9.4-12.3); Platelet Count 141 X10*3/uL (160-400); Red Blood Count 4.29 X10*6/uL (4.20-5.50); Red Cell Distribution Width 13.5 % (11.0-16.0)
[2023-10-20 11:05] LABS: Ammonia 19 umol/L (13-55)
[2023-10-20 11:14] LABS: Valproate 45.7 mcg/mL (50.0-100.0)
[2023-10-20 11:19] LABS: Anion Gap 16 (12-20); Blood Urea Nitrogen 9 mg/dL (9-16); Calcium 9.5 mg/dL (8.4-10.2); Carbon Dioxide 26 mmol/L (22-29); Chloride 100 mmol/L (96-108); Creatinine Clr Calc Pharmacy 203.5; Estimated Glomerular Filt Rate > 60; Glucose Random 167 mg/dL (60-115); Iron 11 mcg/dL (30-160); Lactic Acid 5.1 mmol/L (0.5-2.0); Percent Iron Saturation 4 % (15-50); Potassium 4.1 mmol/L (3.3-5.1); Sodium 138 mmol/L (135-145); Total Iron Binding Capacity 304 mcg/dL (228-428); Unsaturated Iron Binding 293 ug/dL
[2023-10-20 11:45] LABS: SLIDE REVIEW MANUAL DIFF
[2023-10-20 11:53] LABS: Band Neutrophils Percent 20 % (3-5); Eosinophils Absolute Manual 0.1 X10*3/uL (0.0-0.4); Eosinophils Percent Manual 1 % (0-4); Lymphocytes Absolute Manual 0.2 X10*3/uL (1.2-4.9); Lymphocytes Percent Manual 2 % (20-40); Neutrophils Absolute Manual 11.6 X10*3/uL (2.0-8.3); Neutrophils Percent Manual 77 % (45-73)
[2023-10-20 11:56] LABS: Platelet Estimate NORMAL (NORMAL); Platelet Morphology Comment NORMAL; RBC Morphology NORMAL
[2023-10-20] MEDS: cefTRIAXone sodium 500 MG VIAL IM (12:09)
--- NOTE | 2023-10-20 12:17 | PM.IMHP ---
History of Present Illness Date of Service: 10/20/23 Attending physician on admission: Pankaj [facility] Medical History (Updated 10/08/23 @ 13:07 by ELIGIO Shaver) Hidradenitis suppurativa Schizoaffective disorder, bipolar type Hypertension, essential Uncontrolled type 2 diabetes mellitus with hyperglycemia Leg edema Obesity, morbid Asthma Factor 5 Leiden mutation, heterozygous Seasonal asthma Family History Father HTN (hypertension) Diabetes mellitus Mother Afib Maternal Grandfather No problems noted. Maternal Grandmother No problems noted. Paternal Grandmother Breast cancer Paternal Grandfather No problems noted. Sister No problems noted. Surgical History History of ovarian cyst History of wisdom tooth extraction Social History Household Members: Other Household Members Other:: Father Housing: House Do you presently have visiting nurse or other home services: No Unable to assess alcohol history related to: Unknown Alcohol intake: never Comment: Independent Patient Tobacco Use Status: Former Tobacco user Tobacco use type: Cigarette Years Smoked: 3 yrs e-Cigarette/Vaping Use: Never Used Second Hand Smoke Exposure: No (Unknown; pt unable to participate due to mental status.) service: No Current occupational status: employed Sexual orientation: Straight/Heterosexual Cognitive needs: No Hearing needs: No Vision needs: Yes Meds Allergies Allergy/AdvReac Type Severity Reaction Status Date / Time kiwi [KIWI] Allergy Mild HIVES Verified 07/07/23 10:07 mold [MOLD EXTRACTS*] Allergy Mild HIVES Verified 07/07/23 10:07 Active Medications: Current Medications Acetaminophen (Acetaminophen 325 Mg Tablet) 650 mg PO Q6H PRN PRN Reason: Headache/Pain Mild Scale (1-3) Last Admin: 10/18/23 01:12 Dose: 650 mg Al Hydroxide/Mg Hydroxide (Magnesium Hydrox/Alum Hydrox 30 Ml Oral.Susp) 30 ml PO Q6H PRN PRN Reason: Heartburn/Nausea Atenolol (Atenolol 25 Mg Tablet) 75 mg PO DAILY INOCENCIO; Protocol Last Admin: 10/20/23 11:44 Dose: Not Given Chlorpromazine HCl (Chlorpromazine Hcl 25 Mg Tablet) 50 mg PO TID PRN PRN Reason: brendon, psychosis Chlorpromazine HCl (Chlorpromazine Hcl 100 Mg Tablet) 100 mg PO TID [facility] Last Admin: 10/19/23 20:52 Dose: 100 mg Gardner Butter/Zinc Oxide (Gardner Butter/Zinc Oxide Supp.Rect) 1 supp NE BID PRN PRN Reason: Hemorrhoids Divalproex Sodium (Divalproex Sodium Sprinkles 125 Mg ) 1,000 mg PO BID INOCENCIO Last Admin: 10/20/23 11:44 Dose: Not Given Furosemide (Furosemide 20 Mg Tablet) 20 mg PO DAILY INOCENCIO; Protocol Stop: 10/21/23 09:01 Last Admin: 10/20/23 11:44 Dose: Not Given Hydroxyzine HCl (Hydroxyzine Hcl 25 Mg Tablet) 25 mg PO Q6H PRN PRN Reason: Anxiety Lamotrigine (Lamotrigine 25 Mg Tablet) 25 mg PO BEDTIME INOCENCIO Last Admin: 10/19/23 20:52 Dose: 25 mg Lorazepam (Lorazepam 1 Mg Tablet) 1 mg PO BEDTIME INOCENCIO Last Admin: 10/19/23 20:52 Dose: 1 mg Magnesium Hydroxide (Milk Of Magnesia 30 Ml Oral.Susp) 30 ml PO DAILY PRN PRN Reason: Constipation Last Admin: 10/11/23 10:23 Dose: 30 ml Metformin HCl (Metformin Hcl Er 500 Mg Tab.Er.24h) 500 mg PO DAILY INOCENCIO Last Admin: 10/20/23 11:44 Dose: Not Given Multi-Ingred Cream/Lotion/Oil/Oint (Mineral Oil/Petrolatum,White 106 Gm Tube) 1 appl TOPICAL BID INOCENCIO; Protocol Last Admin: 10/20/23 11:44 Dose: Not Given Nystatin (Nystatin Powder 15 Gm Bottle) 1 appl TOPICAL BID INOCENCIO; Protocol Last Admin: 10/20/23 11:44 Dose: Not Given Nystatin (Nystatin Cream 15 Gm Tube) 1 appl TOPICAL BID INOCENCIO; Protocol Last Admin: 10/20/23 11:45 Dose: Not Given Trazodone HCl (Trazodone Hcl 50 Mg Tablet) 50 mg PO BEDTIME MRX1 PRN PRN Reason: Insomnia Last Admin: 10/18/23 01:12 Dose: 50 mg Physical Exam Vital Signs and Narrative: Vital Signs: Last Vital Signs Temp 101.5 F H 10/20/23 08:45 Pulse 136 H 10/20/23 08:45 Resp 24 H 10/20/23 08:45 BP 129/80 10/20/23 08:45 Pulse Ox 96 10/20/23 08:45 O2 Del Method Room Air 10/20/23 08:45 BMI result Body Mass Index 63.4 Results Labs 10/20/23 10:37 10/20/23 10:37 Labs: Laboratory Results - last 24 hr 10/20/23 10/20/23 10/20/23 08:05 08:51 10:37 MCV 84.8 MCH 28.4 MCHC 33.5 RDW 13.5 Plt Count 141 L MPV 10.1 Immature Gran % (Auto) Cancelled Neut % (Auto) Cancelled Lymph % (Auto) Cancelled [place] % (Auto) Cancelled Eos % (Auto) Cancelled Baso % (Auto) Cancelled Lymph # (Auto) Cancelled [place] # (Auto) Cancelled Eos # (Auto) Cancelled Baso # (Auto) Cancelled Abs Immat Gran (auto) Cancelled Absolute Neuts (auto) Cancelled Absolute Nucleated RBC 0.000 Nucleated RBC % (auto) 0.0 Neutrophils % (Manual) 77 H Band Neutrophils % 20 H Lymphocytes % (Manual) 2 L Eosinophils % (Manual) 1 Abs Neuts (Manual) 11.6 H Lymphocytes # (Manual) 0.2 L Eosinophils # (Manual) 0.1 Platelet Estimate NORMAL Plt Morphology Comment NORMAL RBC Morphology NORMAL Smear Tech's Comments MANUAL DIFF Anion Gap 16 Estim Creat Clear Calc 203.5 Estimated GFR > 60 POC Glucose 128 H 185 H Random Glucose 167 H Lactic Acid 5.1 H* Calcium 9.5 Iron 11 L TIBC 304 % Saturation 4 L Unsat Iron Binding 293 Ammonia 19 Total Creatine Kinase 120 Valproic Acid 45.7 L
[2023-10-20 12:48] LABS: Reflex Lactate? Lactic Acid Added
[2023-10-20 13:35] LABS: Influenza A PCR NEGATIVE (Negative); Influenza B PCR NEGATIVE (Negative); Resp Syncy Virus RNA Qual PCR NEGATIVE (Negative); SARS COV2 PCR INHOUSE NEGATIVE (Negative)
--- NOTE | 2023-10-20 15:19 | P.DS_ITS ---
DS: Providers Provider Date of Service: 10/20/23 Date of admission: 09/06/23 17:56 Date of discharge: 10/20/23 Primary care physician: Jose Estes MD Admitting clinician: Rianna Santos Attending physician on admission: James Argueta Consults: 09/21/23 13:02 Consult to Wound Care Routine Reason for consultation: obesity,skin fold breakdown,yeast infection 09/29/23 15:45 Consult to Hospitalist Routine Comment: Consulting Provider: Hospitalist Reason For Exam: Left third toe skin breakdown, ?infection 10/03/23 09:10 Consult to Hospitalist Routine Comment: Consulting Provider: Hospitalist Reason For Exam: Hypertension 10/07/23 18:20 Consult to Hospitalist Routine Comment: Consulting Provider: Hospitalist Reason For Exam: LL Abdomen induration w/pain, ?abscess 10/14/23 10:26 Consult to Hospitalist Routine Comment: unable to get compression stockings in her size Consulting Provider: Hospitalist Reason For Exam: Severe BLE edema, including feet 10/17/23 10:05 Consult to Hospitalist Routine Comment: Consulting Provider: Hospitalist Reason For Exam: cont'd b/l LE edema, erythema; lft foot 10/18/23 16:25 Consult to Wound Care Routine Reason for consultation: BLE edema, cellulitis, toenail induration 10/19/23 10:08 Consult to Hospitalist Routine Comment: Consulting Provider: Hospitalist Reason For Exam: follow up ble edema, ?cellulitis 10/20/23 10:51 Consult to Hospitalist Routine Comment: 02 sat/BP WNL Consulting Provider: Hospitalist Reason For Exam: RLE cellulitis; criteria sepis (101.5/HR136/RR24) Attending physician on discharge: James Argueta Discharging clinician: Rianna Santos DS: Diagnosis Discharge Diagnosis (1) Bipolar disorder with psychotic features: Status: Acute (2) Schizoaffective disorder, bipolar type: Status: Acute DS: Medications Discharge Medications Home Medications: Previous Rx's Medication Instructions Recorded acetaminophen 325 mg tablet 650 mg (2 x 325 mg) PO Q6H PRN 10/20/23 Headache/Pain Mild Scale (1-3) #0 tabs aluminum-magnesium hydroxide 200 30 ml PO Q6H PRN Heartburn/Nausea 10/20/23 mg-200 mg/5 mL oral suspension #0 mL (MAG-AL) atenolol 25 mg tablet 75 mg PO DAILY #0 tabs 10/20/23 cocoa butter-zinc oxide 76 %-10 % 1 supp TX BID PRN Hemorrhoids #0 ea 10/20/23 rectal suppository (Calmol-4) divalproex 125 mg capsule,delayed 1,000 mg (8 x 125 mg) PO BID #0 10/20/23 release sprinkle caps furosemide 20 mg tablet 20 mg PO DAILY #0 tabs 10/20/23 hydroxyzine HCl 25 mg tablet 25 mg PO Q6H PRN Anxiety #0 tabs 10/20/23 lamotrigine 25 mg tablet 25 mg PO BEDTIME #0 tabs 10/20/23 lorazepam 1 mg tablet 1 mg PO BEDTIME #0 tabs 10/20/23 magnesium hydroxide 400 mg/5 mL 30 ml PO DAILY PRN Constipation #0 10/20/23 oral suspension (Milk of Magnesia) mL metformin 500 mg tablet,extended 500 mg PO DAILY #0 tabs 10/20/23 release 24 hr nystatin 100,000 unit/gram topical 1 appl topical BID #0 grams 10/20/23 cream nystatin 100,000 unit/gram topical 1 appl topical BID #0 grams 10/20/23 powder trazodone 50 mg tablet 50 mg PO BEDTIME MRX1 PRN Insomnia 10/20/23 #0 tabs white petrolatum-mineral oil 1 appl topical BID #0 grams 10/20/23 topical cream (Dermacerin topical cream) Mental Status Exam Mental Status Exam Patient Appearance: Fatigued Patient Orientation: Person, Place, Time and Situation Level of Consciousness: Alert Patient Behavior: Appropriate, Talkative, Cooperative, Fatigued, Distractible, Crying and Poor Eye Contact Mood Description: Withdrawn and Flat Affect Description: Withdrawn and Flat Patient Cognition Impaired: No Ability to Follow Directions: Fair Speech Pattern: Spontaneous Speech Memory Description: Episodic Impaired Hallucinations: None Delusions: Not Present Thought Process: Rumination Thought Content: positive for [place], positive for Circumstantial and positive for Poverty of Content Depressive Symptoms: Insomnia, Difficulty Sleeping and Increased Fatigue Judgement: Poor Data Data Completed and Pending Completed studies during hospitalization [Text1]: 10/14/23 10/14/23 10/14/23 08:06 11:00 19:51 WBC 7.9 RBC 4.30 Hgb 12.0 Hct 36.9 L MCV 85.8 MCH 27.9 MCHC 32.5 RDW 13.3 Plt Count 164 MPV 10.1 Immature Gran % (Auto) 0.4 Neut % (Auto) 58.9 Lymph % (Auto) 30.9 [place] % (Auto) 7.4 Eos % (Auto) 1.9 Baso % (Auto) 0.5 Lymph # (Auto) 2.5 [place] # (Auto) 0.6 Eos # (Auto) 0.2 Baso # (Auto) 0.0 Abs Immat Gran (auto) 0.03 Absolute Neuts (auto) 4.7 Absolute Nucleated RBC 0.000 Nucleated RBC % (auto) 0.0 Neutrophils % (Manual) Band Neutrophils % Lymphocytes % (Manual) Eosinophils % (Manual) Abs Neuts (Manual) Lymphocytes # (Manual) Eosinophils # (Manual) Platelet Estimate Plt Morphology Comment RBC Morphology Smear Tech's Comments Sodium 142 Potassium 3.9 Chloride 102 Carbon Dioxide 28 Anion Gap 16 BUN 17 H Creatinine 0.75 Estim Creat Clear Calc 198.0 Estimated GFR > 60 POC Glucose 128 H Random Glucose 146 H Lactic Acid Calcium 9.6 Iron TIBC % Saturation Unsat Iron Binding Total Bilirubin 0.4 Direct Bilirubin AST 12 ALT 12 Alkaline Phosphatase 69 Ammonia Total Creatine Kinase B-Natriuretic Peptide < 10 Total Protein 7.1 Albumin 4.0 Valproic Acid 45.2 L Influenza Type A (PCR) Influenza Type B (PCR) RSV RNA Qual (PCR) SARS-CoV-2 RNA (RT-PCR) 10/15/23 10/16/23 10/17/23 08:09 08:03 08:00 WBC RBC Hgb Hct MCV MCH MCHC RDW Plt Count MPV Immature Gran % (Auto) Neut % (Auto) Lymph % (Auto) [place] % (Auto) Eos % (Auto) Baso % (Auto) Lymph # (Auto) [place] # (Auto) Eos # (Auto) Baso # (Auto) Abs Immat Gran (auto) Absolute Neuts (auto) Absolute Nucleated RBC Nucleated RBC % (auto) Neutrophils % (Manual) Band Neutrophils % Lymphocytes % (Manual) Eosinophils % (Manual) Abs Neuts (Manual) Lymphocytes # (Manual) Eosinophils # (Manual) Platelet Estimate Plt Morphology Comment RBC Morphology Smear Tech's Comments Sodium Potassium Chloride Carbon Dioxide Anion Gap BUN Creatinine Estim Creat Clear Calc Estimated GFR POC Glucose 166 H 136 H 134 H Random Glucose Lactic Acid Calcium Iron TIBC % Saturation Unsat Iron Binding Total Bilirubin Direct Bilirubin AST ALT Alkaline Phosphatase Ammonia Total Creatine Kinase B-Natriuretic Peptide Total Protein Albumin Valproic Acid Influenza Type A (PCR) Influenza Type B (PCR) RSV RNA Qual (PCR) SARS-CoV-2 RNA (RT-PCR) 10/18/23 10/18/23 10/19/23 07:35 08:37 08:45 WBC RBC Hgb Hct MCV MCH MCHC RDW Plt Count MPV Immature Gran % (Auto) Neut % (Auto) Lymph % (Auto) [place] % (Auto) Eos % (Auto) Baso % (Auto) Lymph # (Auto) [place] # (Auto) Eos # (Auto) Baso # (Auto) Abs Immat Gran (auto) Absolute Neuts (auto) Absolute Nucleated RBC Nucleated RBC % (auto) Neutrophils % (Manual) Band Neutrophils % Lymphocytes % (Manual) Eosinophils % (Manual) Abs Neuts (Manual) Lymphocytes # (Manual) Eosinophils # (Manual) Platelet Estimate Plt Morphology Comment RBC Morphology Smear Tech's Comments Sodium Potassium Chloride Carbon Dioxide Anion Gap BUN Creatinine Estim Creat Clear Calc Estimated GFR POC Glucose 142 H 120 H Random Glucose Lactic Acid Calcium Iron TIBC % Saturation Unsat Iron Binding Total Bilirubin 0.3 Direct Bilirubin 0.2 AST 12 ALT 13 Alkaline Phosphatase 80 Ammonia 38 Total Creatine Kinase B-Natriuretic Peptide Total Protein 7.1 Albumin 3.8 Valproic Acid 57.1 Influenza Type A (PCR) Influenza Type B (PCR) RSV RNA Qual (PCR) SARS-CoV-2 RNA (RT-PCR) 10/20/23 10/20/23 10/20/23 08:05 08:51 10:37 WBC 12.0 H RBC 4.29 Hgb 12.2 Hct 36.4 L MCV 84.8 MCH 28.4 MCHC 33.5 RDW 13.5 Plt Count 141 L MPV 10.1 Immature Gran % (Auto) Cancelled Neut % (Auto) Cancelled Lymph % (Auto) Cancelled [place] % (Auto) Cancelled Eos % (Auto) Cancelled Baso % (Auto) Cancelled Lymph # (Auto) Cancelled [place] # (Auto) Cancelled Eos # (Auto) Cancelled Baso # (Auto) Cancelled Abs Immat Gran (auto) Cancelled Absolute Neuts (auto) Cancelled Absolute Nucleated RBC 0.000 Nucleated RBC % (auto) 0.0 Neutrophils % (Manual) 77 H Band Neutrophils % 20 H Lymphocytes % (Manual) 2 L Eosinophils % (Manual) 1 Abs Neuts (Manual) 11.6 H Lymphocytes # (Manual) 0.2 L Eosinophils # (Manual) 0.1 Platelet Estimate NORMAL Plt Morphology Comment NORMAL RBC Morphology NORMAL Smear Tech's Comments MANUAL DIFF Sodium 138 Potassium 4.1 Chloride 100 Carbon Dioxide 26 Anion Gap 16 BUN 9 Creatinine 0.76 Estim Creat Clear Calc 203.5 Estimated GFR > 60 POC Glucose 128 H 185 H Random Glucose 167 H Lactic Acid 5.1 H* Calcium 9.5 Iron 11 L TIBC 304 % Saturation 4 L Unsat Iron Binding 293 Total Bilirubin Direct Bilirubin AST ALT Alkaline Phosphatase Ammonia 19 Total Creatine Kinase 120 B-Natriuretic Peptide Total Protein Albumin Valproic Acid 45.7 L Influenza Type A (PCR) Influenza Type B (PCR) RSV RNA Qual (PCR) SARS-CoV-2 RNA (RT-PCR) 10/20/23 12:43 WBC RBC Hgb Hct MCV MCH MCHC RDW Plt Count MPV Immature Gran % (Auto) Neut % (Auto) Lymph % (Auto) [place] % (Auto) Eos % (Auto) Baso % (Auto) Lymph # (Auto) [place] # (Auto) Eos # (Auto) Baso # (Auto) Abs Immat Gran (auto) Absolute Neuts (auto) Absolute Nucleated RBC Nucleated RBC % (auto) Neutrophils % (Manual) Band Neutrophils % Lymphocytes % (Manual) Eosinophils % (Manual) Abs Neuts (Manual) Lymphocytes # (Manual) Eosinophils # (Manual) Platelet Estimate Plt Morphology Comment RBC Morphology Smear Tech's Comments Sodium Potassium Chloride Carbon Dioxide Anion Gap BUN Creatinine Estim Creat Clear Calc Estimated GFR POC Glucose Random Glucose Lactic Acid Calcium Iron TIBC % Saturation Unsat Iron Binding Total Bilirubin Direct Bilirubin AST ALT Alkaline Phosphatase Ammonia Total Creatine Kinase B-Natriuretic Peptide Total Protein Albumin Valproic Acid Influenza Type A (PCR) NEGATIVE Influenza Type B (PCR) NEGATIVE RSV RNA Qual (PCR) NEGATIVE SARS-CoV-2 RNA (RT-PCR) NEGATIVE 10/20/23 10:37 Blood - Venous Blood Culture - Pending 10/20/23 10:37 Blood - Venous Blood Culture - Pending Imaging Diagnostic Imaging Impressions KUB X-Ray 09/26/23 10:33 IMPRESSION: * Nonobstructive bowel gas pattern with a moderate colonic stool burden. Pelvic/Transvag US 09/26/23 20:58 IMPRESSION: 1. Limited study due to patient body habitus and inability to tolerate transvaginal imaging. 2. The uterus is normal in size. The endometrial thickness is questionably 0.4 cm. 3. The right ovary is not seen. 4. The left ovary is not seen with certainty. Venous Duplex 10/15/23 10:30 IMPRESSION: No DVT demonstrated in the bilateral lower extremity. Bilateral lower leg calf veins are not visualized. Chest X-Ray 10/20/23 11:29 IMPRESSION: No acute abnormality. DS: Summary Hospital Course Hospital Course: 33 yo female, admitted to adult psychiatry with schizoaffective disorder, bipolar type. Pt presented with acute brendon, disinhibition, sexual preoccupation and an inability to modulate her affect. Family reported pt had stopped medications prior to admission. This is a chronic issue, pt is stabilized and then stops psychiatric and medical regime as she believes she does not need them to manage her psychiatric and medical issues. By history, pt is stabilized with a combination of Valproate 2000 mg daily and Olanzapine 40 mg daily. One stabilized, Olanzapine can be tapered. This regime was utilized and pt was stabilized during this admission as well. To assist with compliance, pt, family and out pt team agreed that a trial of an THOMAS would be beneficial to assist in preventing decompensation. Invega Sustenna was given in loading doses of 234 mg and 156 mg on 10/04/23 and 10/11/23. Depakote was maintained and pt experienced breakthrough brendon. Olanzapine was not effective in assisting her in stabilization. Valproate level was variable- 09/22 68.9; 10/14 45.2, 10/18 57.1 and 10/20 45.7. Chlorpromazine was trialed and was ineffective to 300 mg so was discontinued. Lamictal was added to assist with mood mgt. Lorazepam was added to manage agitation. Medication interventions have not been effective with this breakthrough. In addition, pt has had several medical issues, requiring multiple consultations from hospitalist service for fungal dermatitis, skin indurations, infections, wound care, hypertension, trial of Lasix and BLE Edema with developing cellulitis which has worsened over the past several days. Cris Carballo of wound care has consulted regarding pt's BLE Edema and has recommended compression stockings. Locally resources were not available for custom fitting, so on 10/19 Edema Wear Compression Stockings were ordered for pt with Cris's recommendation. Today with temp of 101.5, tachycardia, WBC of 12.1, tachypnea and a lactic acid level of 5.1, and meeting sepsis criteria, [place] [facility] [place] and return to adult psychiatry when medical issues are resolved. Status at Discharge Functional status at discharge: wheelchair bound Overall status at discharge: patient is not back to baseline Time Spent with Patient Time attestation: Total time managing care of this patient today ____ minutes. Time spent: Greater than 30 minutes Discharge Plan Discharge Anticipated Discharge Date/Time: 10/20/23 14:00 Patient Disposition: er Acute [facility] Discharge Diagnosis: Schizoaffective Disorder, bipolar type Referrals: [facility] [Other] - 1 Week (fax- [phone] Visiting RN will help you with medication and keeping them organized. As well as the injectable medication. ) Jose Estes MD [Primary Care Provider] - 1 Week Discharge Medications: New acetaminophen 325 mg Tablet 650 mg PO Q6H PRN (Reason: Headache/Pain Mild Scale (1-3)) Qty: 0 0RF trazodone 50 mg Tablet 50 mg PO BEDTIME MRX1 PRN (Reason: Insomnia) Qty: 0 0RF atenolol 25 mg Tablet 75 mg PO DAILY Qty: 0 0RF Protocol: Hold for SBP/HR < HOLD for SBP < : 90 HOLD for HR < : 60 lamotrigine 25 mg Tablet 25 mg PO BEDTIME Qty: 0 0RF magnesium hydroxide [Milk of Magnesia] 400 mg/5 mL Suspension 30 ml PO DAILY PRN (Reason: Constipation) Qty: 0 0RF nystatin 100,000 unit/gram Cream 1 appl topical BID Qty: 0 0RF Protocol: Apply to: Apply to: affected areas hydroxyzine HCl 25 mg Tablet 25 mg PO Q6H PRN (Reason: Anxiety) Qty: 0 0RF furosemide 20 mg Tablet 20 mg PO DAILY Qty: 0 0RF Protocol: Hold for SBP< HOLD for SBP < : 90 nystatin 100,000 unit/gram Powder 1 appl topical BID Qty: 0 0RF Protocol: Apply to: Apply to: angelic area and inner thighs lorazepam 1 mg Tablet 1 mg PO BEDTIME Qty: 0 0RF metformin 500 mg Tablet Extended Release 24 Hr 500 mg PO DAILY Qty: 0 0RF divalproex 125 mg Capsule, Delayed Rel Sprinkle 1,000 mg PO BID Qty: 0 0RF Dermacerin Cream 1 appl topical BID Qty: 0 0RF Protocol: Apply to: Apply to: b/l feet MAG-AL 200-200 mg/5 mL Suspension 30 ml PO Q6H PRN (Reason: Heartburn/Nausea) Qty: 0 0RF Calmol-4 76-10 % Suppository 1 supp TX BID PRN (Reason: Hemorrhoids) Qty: 0 0RF Discontinued Align 1 tab PO DAILY Qty: 0 0RF benztropine 0.5 mg Tablet 0.5 mg PO TID PRN (Reason: Extrapyramidal Effects) Qty: 90 0RF trazodone 50 mg Tablet 50 mg PO BEDTIME MRX1 PRN (Reason: Insomnia) Qty: 60 0RF azithromycin 250 mg Tablet 250 mg PO Q24H Qty: 3 0RF atenolol 25 mg Tablet 75 mg PO DAILY Qty: 90 0RF Protocol: Hold for SBP/HR < HOLD for SBP < : 90 HOLD for HR < : 60 olanzapine 10 mg Tablet 20 mg PO BID Qty: 60 0RF Chloraseptic Sore Throat 6-10 mg Lozenge 1 enid mucous membrane Q2H PRN (Reason: Sore Throat) Qty: 100 0RF dextromethorphan-guaifenesin 10-100 mg/5 mL Syrup 10 ml PO Q6H PRN (Reason: cough) Qty: 200 0RF nystatin 100,000 unit/gram Cream 1 appl topical BID Qty: 100 0RF Protocol: Apply to: Apply to: affected areas nystatin 100,000 unit/gram Powder 1 appl topical BID Qty: 100 0RF Protocol: Apply to: Apply to: affected areas guaifenesin [Mucinex] 600 mg Tablet Extended Release 12hr 600 mg PO BID PRN (Reason: Congestion) Qty: 60 0RF divalproex [Depakote Sprinkles] 125 mg capsule, delayed rel sprinkle 2,000 mg PO BEDTIME Qty: 224 0RF lurasidone [Latuda] 60 mg tablet 60 mg PO BEDTIME Qty: 30 0RF Rx Instructions: must administer with food (at least 350 calories) atorvastatin 20 mg tablet 20 mg PO BEDTIME Qty: 90 0RF albuterol sulfate [ProAir HFA] 90 mcg/actuation HFA aerosol inhaler 2 inh inhalation QID PRN (Reason: shortness of breath or wheezing) Qty: 1 0RF divalproex [Depakote ER] 500 mg tablet extended release 24 hr 1,500 mg PO BEDTIME Qty: 90 0RF lurasidone [Latuda] 60 mg tablet 60 mg PO DAILY Qty: 30 0RF Rx Instructions: must administer with food (at least 350 calories) Discharge Orders: Discharge Order (Routine); Ordered 10/20/23 Ordered By: Rianna Santos Diet: Low salt diet Activity on Discharge: As tolerated Stand Alone Forms: Patient Portal Discharge page Care Plan Goals: Medical Stabilization Health Concerns: Fever Sepsis Cellulitis Plan of Treatment: Transfer to [facility] Assessment: Pt aware of transfer and expressed understanding of rationale for transfer. Discharge Date/Time: 10/20/23 13:58
== END 2023-10-20 13:58 | disposition short-term general hospital (02) | DRG 750 ==
LOC: HO.ED 11:56 → HO.PM5 18:22
PROVIDERS: Physician Assistant; Psychiatry & Neurology Psychiatry; Student in an Organized Health Care Education/Training Program; Admitting Provider Psychiatry & Neurology Psychiatry; Emergency Provider Emergency Medicine; PCP Internal Medicine; Visit Provider Clinical Nurse Specialist Psychiatric/Mental Health, Adult
DX: F25.0 Schizoaffective disorder, bipolar type (principal); Z68.44 Body mass index [BMI] 60.0-69.9, adult; E11.9 Type 2 diabetes mellitus without complications; B35.1 Tinea unguium; B37.2 Candidiasis of skin and nail; I10 Essential (primary) hypertension; L73.2 Hidradenitis suppurativa; E66.01 Morbid (severe) obesity due to excess calories; M79.89 Other specified soft tissue disorders; Z20.822 Contact with and (suspected) exposure to COVID-19; Z91.148 Patient's other noncompliance with medication regimen for other reason; Z87.891 Personal history of nicotine dependence; Z79.899 Other long term (current) drug therapy
CPT/HCPCS: 0241U; 36415; 71045; 74018; 76830; 76856; 80048; 80053; 80061; 80076; 80143; 80164; 80179; 81003; 82140; 82550; 82565; 82607; 82746; 82947; 83540; 83605; 83735; 83880; 84443; 85007; 85025; 85027; 87040; 87147; 87205; 87635; 93005; 93970; 99284; 99499; J0696; J2426

== ENCOUNTER → 2023-09-06 09:31 | Outpatient (BNV) | payer OTHER, SELFPAY | PROVIDERS: Emergency Provider Emergency Medicine; PCP Internal Medicine; Visit Provider Internal Medicine Cardiovascular Disease | DX: R41.82 Altered mental status, unspecified (principal) | CPT/HCPCS: 93010 ==

== ENCOUNTER → 2023-09-06 09:49 | Outpatient (BNV) | payer OTHER, SELFPAY | PROVIDERS: Emergency Provider Emergency Medicine; PCP Internal Medicine; Visit Provider Social Worker | DX: F31.2 Bipolar disorder, current episode manic severe with psychotic features (principal) | CPT/HCPCS: 90792; 99231; 99232; 99238; 99285 ==

== ENCOUNTER 2023-09-06 17:56 | Outpatient (BNV) | payer OTHER, SELFPAY | END 2023-10-14 09:00 | PROVIDERS: Admitting Provider Psychiatry & Neurology Psychiatry; Emergency Provider Emergency Medicine; PCP Internal Medicine; Visit Provider Internal Medicine | DX: L73.2 Hidradenitis suppurativa (principal) | CPT/HCPCS: 93010 ==

== ENCOUNTER 2023-09-06 17:56 | Outpatient (BNV) | payer OTHER, SELFPAY | END 2023-10-20 09:14 | PROVIDERS: Admitting Provider Psychiatry & Neurology Psychiatry; Emergency Provider Emergency Medicine; PCP Internal Medicine; Visit Provider Internal Medicine Cardiovascular Disease | DX: R00.0 Tachycardia, unspecified (principal) | CPT/HCPCS: 93010 ==

== ENCOUNTER → 2023-09-06 17:56 | Outpatient (BNV) | payer OTHER, SELFPAY | PROVIDERS: Admitting Provider Psychiatry & Neurology Psychiatry; Emergency Provider Emergency Medicine; PCP Internal Medicine; Visit Provider Student in an Organized Health Care Education/Training Program | DX: L73.2 Hidradenitis suppurativa (principal) | CPT/HCPCS: 99222; 99499 ==

== ENCOUNTER 2023-10-20 14:23 | Outpatient (BNV) | payer OTHER, SELFPAY | END 2023-10-26 15:27 | PROVIDERS: Admitting Provider Internal Medicine; PCP Internal Medicine; Visit Provider Internal Medicine Cardiovascular Disease | DX: I45.9 Conduction disorder, unspecified (principal) | CPT/HCPCS: 93010 ==

== ENCOUNTER 2023-10-20 14:23 | Outpatient (BNV) | payer OTHER, SELFPAY | END 2023-10-21 09:09 | PROVIDERS: Admitting Provider Internal Medicine; PCP Internal Medicine; Visit Provider Internal Medicine Cardiovascular Disease | DX: R00.0 Tachycardia, unspecified (principal) | CPT/HCPCS: 93010; 93306 ==

== ENCOUNTER 2023-10-20 14:23 | Inpatient (IN) | payer OTHER, SELFPAY ==
--- NOTE | ~2023-10-20 | CT_ITS ---
EXAMINATION: CT SCAN OF THE RIGHT LOWER EXTREMITY WITHOUT CONTRAST CLINICAL INFORMATION: Deep tissue involvement. COMPARISON: X-ray of the right ankle July 2023. TECHNIQUE: CT scan of the right lower extremity is performed without contrast. Imaging was performed from the knee joint to the talocrural joint. FINDINGS: SUBCUTANEOUS SOFT TISSUES: There is feathery-like stranding density throughout the subcutaneous soft tissues of the right lower leg from the knee to the ankle. No localized fluid collection identified. MUSCLES/TENDONS: Normal. BONE AND VISUALIZED JOINTS: There is a prominent posterior calcaneal spur and there is some ossification in the distal calcaneus. Small plantar calcaneal spur. Otherwise unremarkable. NEUROVASCULAR STRUCTURES: Unremarkable. CT/CT lower leg RT wo IV con IMPRESSION: 1. Edema with or without cellulitis in the right lower leg. 2. No localized fluid collection. 3. Prominent posterior calcaneal spur and small plantar calcaneal spur. Cannot exclude concomitant old partial tear of the distal Achilles with associated resultant ossification of the tendon
--- NOTE | ~2023-10-20 | CT_ITS ---
Examination: CT chest and CT abdomen with and without IV contrast. Clinical indications: Fever of unknown origin. COMPARISON: CTA chest 10/22/2023. TECHNIQUE: 5 mm thin axial and reformatted 3 minutes thin sagittal coronal images of chest were obtained. Subsequently axial 5 minutes thin and reformatted 3 mm thin sagittal coronal images of abdomen pelvis were obtained without contrast. DLP [id number]. . This CT examination was performed using dose optimization technique as appropriate, variously including the following: Automated exposure control Adjustment of MA and/or KV according to patient size(this includes techniques or standardized protocols for targeted exams where dose is matched to indication/reason for exam; extremities or head. Use of iterative reconstruction techniques. FINDINGS: There chest exam is limited secondary to breathing artifact throughout the exam. CHEST: LUNGS: The lungs are somewhat expanded with patchy airspace disease in right upper lobe and both lower lobes. Pleura: There is small bilateral pleural effusion suspected. Mediastinum: The thyroid lobes are symmetrical and normal. Central trachea and the bronchi are patent. Heart size and the great vessels are normal caliber. No pericardial effusion. No coronary artery calcifications. No abnormal mediastinal lymph nodes. Axilla: No abnormal size axillary lymph nodes seen. The chest wall is grossly unremarkable. Abdomen and pelvis: Liver, ducts and gallbladder: The liver is homogeneous in density, enlarged in size and contour. Liver measures 29 seen in craniocaudad length No focal lesion or intrahepatic ductal dilatation seen. Spleen: Unremarkable. Pancreas: Unremarkable. Adrenal glands: Unremarkable. Kidneys and ureters: Both kidneys are normal size shape and position. No radiopaque calculi or hydronephrosis seen. Lymphovascular structures: The abdominal aorta is normal caliber. No abnormal size retroperitoneal lymph nodes seen. GI tract: There is scattered stool and gas in the colon. There is moderate air-fluid level in the right colon, nonspecific. The small bowel loops are normal caliber. Appendix is likely normal caliber. Abdominal wall: There is a right lateral abdominal wall contusion. The left lateral abdominal wall is not in the [id number]. Pelvis: The uterus is anteverted and appears unremarkable. There is a Clements's catheter in the bladder. There is small to moderate small amount of free fluid. No abnormal pelvic or inguinal lymph nodes. CT/CT chest wo IV con IMPRESSION: 1. Patchy airspace disease right upper lobe and both lower lobes with small bilateral pleural effusions. 2. There is no acute intra-abdominal process seen. 3. There is a right lateral abdominal wall contusion. The left lateral abdominal wall is not in the [id number]. 4. Nonspecific air-fluid level right colon. 5. Small to moderate ascites. Moderate hepatomegaly
--- NOTE | ~2023-10-20 | CT_ITS ---
EXAMINATION: CT ANGIOGRAM OF THE CHEST WITH AND WITHOUT CONTRAST (CT PULMONARY ANGIOGRAM FOR PE) CLINICAL INFORMATION: Reason for Exam Factor V Deficiency, Hypoxia, c/f PE COMPARISON: CT chest 10/24/2023. CT angiogram chest 10/22/2023. TECHNIQUE: Prior to contrast administration, noncontrast localization images were obtained. Subsequently, multidetector volumetric imaging was performed from the thoracic inlet to below the diaphragms following the administration of 80 mL Omnipaque 350 intravenous contrast. No contrast reaction reported Sagittal, coronal, and MIP oblique sagittal reformatted images were obtained on the CT workstation, uploaded to PACS, and reviewed. This CT examination was performed using dose optimization techniques as appropriate, variously including the following: *Automated exposure control *Adjustment of mA and/or kV according to patient size (this includes techniques or standardized protocols for targeted exams where dose is matched to indication/reason for exam; i.e. extremities or head) *Use of iterative reconstruction technique Total exam dose-length product mGy-cm FINDINGS: QUALITY OF STUDY/CONTRAST BOLUS: Suboptimal. PULMONARY ARTERIES: No pulmonary embolus is seen in the main pulmonary arteries. However, due to technical limitations, similar 21 prior studies, there appears to be inadequate evaluation of the lobar, segmental, and subsegmental vessels . Small emboli in the distal branches could be missed. THORACIC AORTA: No aneurysm. LUNG: Bilateral posterior consolidations and areas of opacity, likely reflective of pneumonia are again present and appear slightly more prominent than on the most recent 10/24/2023 exam. PLEURA: Small pleural effusions continue. MEDIASTINUM: Heart appears prominent. No pericardial effusion. Thoracic inlet unremarkable. No significant adenopathy. No evidence of septal bowing or right heart strain. CORONARY ARTERY CALCIFICATION: None visualized on this study. CHEST WALL/AXILLA: No axillary or internal mammary lymphadenopathy. OSSEOUS STRUCTURES: Spondylitic degenerative changes in the thoracic spine. UPPER ABDOMEN: Enlarged fatty liver and prominent spleen. No reflux of contrast into the hepatic veins to suggest elevated right heart pressures. CT/CT angio chest PE protocol IMPRESSION: 1. No evidence for acute PE. This however is a suboptimal exam for technical reasons. No significant change from the prior PE study. Bilateral consolidations and infiltrates and effusions may be slightly progressed, compatible with pneumonia and/or edema. 2. VTE: indeterminate.
--- NOTE | ~2023-10-20 | CT_ITS ---
Examination: CT chest and CT abdomen with and without IV contrast. Clinical indications: Fever of unknown origin. COMPARISON: CTA chest 10/22/2023. TECHNIQUE: 5 mm thin axial and reformatted 3 minutes thin sagittal coronal images of chest were obtained. Subsequently axial 5 minutes thin and reformatted 3 mm thin sagittal coronal images of abdomen pelvis were obtained without contrast. DLP [id number]. . This CT examination was performed using dose optimization technique as appropriate, variously including the following: Automated exposure control Adjustment of MA and/or KV according to patient size(this includes techniques or standardized protocols for targeted exams where dose is matched to indication/reason for exam; extremities or head. Use of iterative reconstruction techniques. FINDINGS: There chest exam is limited secondary to breathing artifact throughout the exam. CHEST: LUNGS: The lungs are somewhat expanded with patchy airspace disease in right upper lobe and both lower lobes. Pleura: There is small bilateral pleural effusion suspected. Mediastinum: The thyroid lobes are symmetrical and normal. Central trachea and the bronchi are patent. Heart size and the great vessels are normal caliber. No pericardial effusion. No coronary artery calcifications. No abnormal mediastinal lymph nodes. Axilla: No abnormal size axillary lymph nodes seen. The chest wall is grossly unremarkable. Abdomen and pelvis: Liver, ducts and gallbladder: The liver is homogeneous in density, enlarged in size and contour. Liver measures 29 seen in craniocaudad length No focal lesion or intrahepatic ductal dilatation seen. Spleen: Unremarkable. Pancreas: Unremarkable. Adrenal glands: Unremarkable. Kidneys and ureters: Both kidneys are normal size shape and position. No radiopaque calculi or hydronephrosis seen. Lymphovascular structures: The abdominal aorta is normal caliber. No abnormal size retroperitoneal lymph nodes seen. GI tract: There is scattered stool and gas in the colon. There is moderate air-fluid level in the right colon, nonspecific. The small bowel loops are normal caliber. Appendix is likely normal caliber. Abdominal wall: There is a right lateral abdominal wall contusion. The left lateral abdominal wall is not in the [id number]. Pelvis: The uterus is anteverted and appears unremarkable. There is a Clements's catheter in the bladder. There is small to moderate small amount of free fluid. No abnormal pelvic or inguinal lymph nodes. CT/CT abdomen pelvis wo IV con IMPRESSION: 1. Patchy airspace disease right upper lobe and both lower lobes with small bilateral pleural effusions. 2. There is no acute intra-abdominal process seen. 3. There is a right lateral abdominal wall contusion. The left lateral abdominal wall is not in the [id number]. 4. Nonspecific air-fluid level right colon. 5. Small to moderate ascites. Moderate hepatomegaly
--- NOTE | ~2023-10-20 | XR_ITS ---
EXAMINATION: XR CHEST CLINICAL INFORMATION: PICC line placement COMPARISON: Chest 10/20/2023 TECHNIQUE: Frontal view of the chest was obtained. FINDINGS: The lungs are hypoexpanded but clear. Heart size and pulmonary vascularity is normal. No gross bony abnormality seen. XR/XR chest 1V IMPRESSION: Hypoexpanded lungs without acute process.
--- NOTE | ~2023-10-20 | XR_ITS ---
EXAMINATION: XR CHEST CLINICAL INFORMATION: PIC line assessment COMPARISON: CTA chest October 26, 2023 TECHNIQUE: Frontal view of the chest was obtained. FINDINGS: Similar enlargement of the cardiac silhouette. The lungs are hypoinflated. Left upper extremity PICC line noted with catheter tip terminating within the mid SVC. Visualized lung parenchyma demonstrates no gross lobar consolidation. No left-sided pleural effusion. No gross pneumothorax. XR/XR chest 1V IMPRESSION: Left upper extremity PICC line noted with catheter tip terminating within the mid SVC.
--- NOTE | ~2023-10-20 | CT_ITS ---
EXAMINATION: CT ANGIOGRAM OF THE CHEST WITH AND WITHOUT CONTRAST (CT PULMONARY ANGIOGRAM FOR PE) CLINICAL INFORMATION: Reason for Exam hypoxia COMPARISON: Chest x-ray 10/21/2023 TECHNIQUE: Prior to contrast administration, noncontrast localization images were obtained. Subsequently, multidetector volumetric imaging was performed from the thoracic inlet to below the diaphragms following the administration of 100 mL Omnipaque 350 intravenous contrast. No contrast reaction reported Sagittal, coronal, and MIP oblique sagittal reformatted images were obtained on the CT workstation, uploaded to PACS, and reviewed. This CT examination was performed using dose optimization techniques as appropriate, variously including the following: *Automated exposure control *Adjustment of mA and/or kV according to patient size (this includes techniques or standardized protocols for targeted exams where dose is matched to indication/reason for exam; i.e. extremities or head) *Use of iterative reconstruction technique Total exam dose-length product 304 mGy-cm FINDINGS: QUALITY OF STUDY/CONTRAST BOLUS: Suboptimal. PULMONARY ARTERIES: No pulmonary embolus is seen in the main pulmonary arteries. However, there is inadequate evaluation of much of the lobar, segmental, and subsegmental vessels due to a combination of patient body habitus, bolus timing, and respiratory motion artifact; therefore, emboli at these levels cannot be excluded. THORACIC AORTA: No aneurysm. LUNG: Limited detailed evaluation due to respiratory motion artifact. There are regions of opacity in the posterior portions of both lungs, overall right greater than left with involvement of the bilateral upper and lower lobes and to a lesser extent the right middle lobe. This consists of a combination of dense consolidation and groundglass opacity. There is also suggestion of interlobular septal thickening at the lung bases, suggesting at least a component of pulmonary edema. PLEURA: No pneumothorax. Small pleural effusions may be present. MEDIASTINUM: Thyroid gland appears grossly unremarkable though is suboptimally assessed. No definite lymphadenopathy, though evaluation for this is limited on this exam. Cardiac size appears near the upper limits of normal. No significant pericardial effusion. CORONARY ARTERY CALCIFICATION: None visualized on this study. CHEST WALL/AXILLA: No axillary or internal mammary lymphadenopathy. OSSEOUS STRUCTURES: Degenerative changes are noted in the spine. UPPER ABDOMEN: Unremarkable. CT/CT angio chest PE protocol IMPRESSION: 1. Inadequate evaluation of much of the lobar, segmental, and subsegmental vessels due to a combination of patient body habitus, bolus timing, and respiratory motion artifact; therefore, emboli at these levels cannot be excluded. No pulmonary embolus is seen in the main pulmonary arteries. 2. Regions of opacity in the posterior portions of both lungs, overall right greater than left, with involvement of the bilateral upper and lower lobes and to a lesser extent the right middle lobe. Appearance may represent pulmonary edema in the proper clinical setting, though superimposed pneumonia cannot be excluded. VTE: indeterminate.
--- NOTE | ~2023-10-20 | XR_ITS ---
EXAMINATION: XR CHEST CLINICAL INFORMATION: Dyspnea. COMPARISON: 10/20/2023. TECHNIQUE: Frontal view of the chest was obtained. FINDINGS: The lung volumes are low. The cardiomediastinal silhouette is stable. An apparent PICC line is in a stable position. There is pulmonary vascular congestion and perihilar increased markings. There is no definitive focal consolidation or pleural effusion. The bony structures and soft tissues are unremarkable. XR/XR chest 1V IMPRESSION: Low lung volumes. There appears to be pulmonary vascular congestion and perihilar increased markings. This may be technical. Developing edema is also a consideration.
--- NOTE | 2023-10-20 12:40 | PM.IMHP ---
History of Present Illness Date of Service: 10/20/23 <ELIGIO Walton - Last Filed: 10/27/23 14:40> Attending physician on admission: Pankaj Negrete <ELIGIO Walton - Last Filed: 10/27/23 14:40> Chief Complaint: Cellulitis, sepsis <ELIGIO Walton - Last Filed: 10/27/23 14:40> Addendum: On 10/20/2023 pt received ceftriaxone 500 mg IM at 12:09. Pt is a 33-year-old female with a PMH significant for?diet controlled diabetes type 2, HTN, HLD, factor 5 deficiency, seasonal asthma, obesity class 3, and bipolar disorder?with multiple inpatient psych hospitalizations who was initially admitted to [facility] unit on 09/07/2022 for acute brendon, disinhibition, sexual preoccupation and inability to modulate her affect. Pt had apparently not been taking her medications at home. During her current hospitalization pt has been seen multiple times by the medical team for various issues, including left toe cellulitis, uncontrolled HTN, and lower leg edema; pt has been seen by medicine for the past three days for consults. Has also been seen by wound care for fungal dermatitis under breasts and in skin folds. Medical consult placed today for worsening right lower extremities and clinical deterioration. Patient has spiked a fever of 101.5 earlier today, was tachycardic up to 140s, and tachypneic up to 24. Labs were significant for leukocytosis of 12.0 and lactic acid 5.1. Patient tested negative for flu, RSV, COVID. CXR showed no acute cardiopulmonary process. EKG showed sinus tachycardia of 127 no evidence of significant ST elevations or depressions. Patient herself states that she feels ?terrible? and complains of increased swelling in lower legs and pain in her feet, especially her right leg. Increasing right leg redness and warmth. States she feels faint and lightheaded. Has not been eating or drinking much the past 2 days. Reports she has also a nonproductive cough since earlier today. Denies nausea, vomiting, dizziness, abdominal pain. Given that patient meets sepsis criteria with a lactic acid of 5.1, patient will be brought to the medical floor for management of right lower extremity cellulitis with sepsis. <ELIGIO Walton - Last Filed: 10/27/23 14:40> Review of Systems Review of Systems: Increasing right lower leg redness and warmth Pain in bilateral feet Increasing lower leg edema Nonproductive cough Lightheadedness Chronic SOB, at baseline Denies nausea, vomiting, abdominal pain <ELIGIO Walton - Last Filed: 10/27/23 14:40> [facility] Medical History: Medical History (Updated 10/24/23 @ 08:20 by Adina Walter MD) Fever of unknown origin Foot swelling Hidradenitis suppurativa Schizoaffective disorder, bipolar type Hypertension, essential Uncontrolled type 2 diabetes mellitus with hyperglycemia Leg edema Obesity, morbid Asthma Factor 5 Leiden mutation, heterozygous Seasonal asthma <ELIGIO Walton - Last Filed: 10/27/23 14:40> Family History: Family History Father HTN (hypertension) Diabetes mellitus Mother Afib Maternal Grandfather No problems noted. Maternal Grandmother No problems noted. Paternal Grandmother Breast cancer Paternal Grandfather No problems noted. Sister No problems noted. <ELIGIO Walton - Last Filed: 10/27/23 14:40> Surgical History: Surgical History History of ovarian cyst History of wisdom tooth extraction <ELIGIO Walton - Last Filed: 10/27/23 14:40> Social History: Social History Household Members: Family Household Members Other:: Father Housing: House Do you presently have visiting nurse or other home services: No Unable to assess alcohol history related to: Unknown Alcohol intake: never Comment: Independent Patient Tobacco Use Status: Former Tobacco user Tobacco use type: Cigarette Years Smoked: 3 yrs e-Cigarette/Vaping Use: Never Used Second Hand Smoke Exposure: No (Unknown; pt unable to participate due to mental status.) Use of substances other than those prescribed or required for medical reasons: No Currently Displaying Signs/Symptoms of Drug Intoxication Withdrawal: No Have you been hit, kicked, punched, or otherwise hurt by someone within the past year? If so, by whom?: No Do you feel safe in your current relationship?: No Current Relationship Is there a partner from a previous relationship who is making you feel unsafe now?: No Are you made to feel afraid or neglected: No Yazidi Healthcare Practices: Sikhism Advance Directives: No Advance Directives Information Provided: No Do you have thoughts of harming others: None Do you have a plan to hurt others: No Plan Recently lost weight without trying: No How much weight loss: 2-13 pounds Eating poorly because of decreased appetite: No Nutrition screen score: 1 Nutrition Risks: No Nutritional Risk Patient : No : No Poor oral hygiene: No service: No Current occupational status: employed Sexual orientation: Straight/Heterosexual Cognitive needs: No Hearing needs: No Vision needs: Yes <ELIGIO Walton - Last Filed: 10/27/23 14:40> Meds Allergies/Adverse reactions: Allergies Allergy/AdvReac Type Severity Reaction Status Date / Time kiwi [KIWI] Allergy Mild HIVES Verified 07/07/23 10:07 mold [MOLD EXTRACTS*] Allergy Mild HIVES Verified 07/07/23 10:07 <ELIGIO Walton Last Filed: 10/27/23 14:40> Active Medications: Current Medications Acetaminophen (Acetaminophen 325 Mg Tablet) 650 mg PO Q6H PRN PRN Reason: Pain, Mild (Pain Scale 1-3) Docusate Sodium (Docusate Sodium 100 Mg Capsule) 100 mg PO DAILY PRN PRN Reason: Constipation Enoxaparin Sodium (Enoxaparin Sodium 40 Mg/0.4 Ml Syringe) 40 mg SUBCUT Q12H [facility] Sodium Chloride (Ns) 1,000 mls @ 150 mls/hr IVCONT .Q6H40M [facility] Stop: 10/21/23 02:04 Sodium Chloride (0.9 % Sodium Chloride Flush 3 Ml Syringe) 3 ml IVFLUSH QSHIFT [facility] <ELIGIO Walton Last Filed: 10/27/23 14:40> Physical Exam Vital Signs and Narrative: Constitutional: Alert, looks uncomfortable. In mild respiratory distress. Mental Status: Oriented to person, place and time. Eyes: Pupils are equal, round, and reactive to light. Ear, Nose, and Throat: Oropharynx clear, mucous membranes moist. Ears and nose without deformities. Trachea midline. Respiratory: Clear to auscultation bilaterally. No wheezing, rales, or rhonchi. Pt tachypneic with shallow breathing. Cardiovascular: S1, S2, tachy. No murmurs, rubs, or gallops. Gastrointestinal: Abdomen soft, non-tender, non-distended. Normal bowel sounds. Neurologic: Cranial nerves II-XII are grossly intact bilaterally. No focal neurological deficits. Moves all extremities spontaneously. Skin: Warm, dry. Musculoskeletal: No cyanosis or clubbing. Extremities: 2+ bilateral pitting edema. Significant warmth and erythema covering most of the right lower leg and foot. Small skin breaks on the dorsal aspect of right foot. See pictures below. Psychiatric: Flat affect. <ELIGIO Walton - Last Filed: 10/27/23 14:40> Results Labs CBC and Chem 7: 10/27/23 04:24 10/27/23 04:24 <ELIGIO Walton - Last Filed: 10/27/23 14:40> Assessment and Plan (1) Cellulitis of right lower leg: Status: Acute <ELIGIO Walton - Last Filed: 10/27/23 14:40> Pt is a 33-year-old female with a PMH significant for?diet controlled diabetes type 2, HTN, HLD, factor 5 deficiency, seasonal asthma, obesity class 3, and bipolar disorder?with multiple inpatient psych hospitalizations who was initially admitted to [facility] unit on 09/07/2022 for acute brendon, disinhibition, sexual preoccupation and inability to modulate her affect. Medical consult placed today for worsening right lower extremities and clinical deterioration. Patient will be brought to the medical floor for management of right lower extremity cellulitis with sepsis. Right lower leg cellulitis with sepsis Pt with right lower leg warmth and erythema Patient meets sepsis: Tachycardia, tachypnea, lactic acid 5.1 Patient excluded from sepsis bolus d/t body habitus, increasing LLE over the past few weeks, and concern for fluid overload Will start patient on IVF: normal saline @ 125 mls/hr x2L Pt given ceftriaxone IM on the psych unit Will start on vanco and Zosyn, started 10/20/2023 Follow cultures Lower leg edema Worsening the past few weeks No evidence for CHF; CXR clear, BNP WNL Has been started on trial of oral Lasix Continue Lasix Low-salt diet Continue working on getting compression stockings that fit pt Leg elevation when in bed, encourage ambulation HTN Well-controlled on current therapies Continue atenolol HLD Continue statin Seasonal allergies Continue home inhalers p.r.n. Diet-controlled diabetes type 2 Followed by endocrinology outpatient Diabetic diet Factor 5 deficiency Not on any current medication Followed by Hematology outpatient Obesity class 3 Patient reports she used to weigh over 500 lb, has lost 100 lb by walking in the past year Low-fat diet, encourage ambulation as much as possible Mood disorder Continue home meds Full Code Attending:?Dr. Negrete DVT Prophylaxis: Lovenox Pt will require a hospitalization of at least two nights for treatment of?right lower leg cellulitis with sepsis. Patient require hospitalization on the medical floor for administration of IV fluids and IV antibiotics. <ELIGIO Walton - Last Filed: 10/27/23 14:40> Pt is a 33-year-old female with a PMH significant for?diet controlled diabetes type 2, HTN, HLD, factor 5 deficiency, seasonal asthma, obesity class 3, and bipolar disorder?with multiple inpatient psych hospitalizations who was initially admitted to [facility] unit on 09/07/2022 for acute brendon, disinhibition, sexual preoccupation and inability to modulate her affect. Medical consult placed today for worsening right lower extremities and clinical deterioration. Patient will be brought to the medical floor for management of right lower extremity cellulitis with sepsis. Right lower leg cellulitis with sepsis, Pt with right lower leg warmth and erythema Patient meets sepsis: Tachycardia, tachypnea, lactic acid 5.1 Patient excluded from sepsis bolus d/t body habitus, increasing LLE over the past few weeks, and concern for fluid overload Will start patient on IVF: normal saline @ 125 mls/hr x2L and reassess Pt given ceftriaxone IM on the psych unit because of lack of IV access Clindamycin and Unasyn given rapid exapansion strep of concern, Vanco if not improving , ID consult Follow cultures. It took significantly very long time for patient to get IV access multiple people try without having access, in the end ICU and IR for help and eventually a PICC line was inserted by IR. Trend Lactic acid Lower leg edema Worsening the past few weeks No evidence for CHF; CXR clear, BNP WNL Has been started on trial of oral Lasix Continue Lasix Low-salt diet Continue working on getting compression stockings that fit pt Leg elevation when in bed, encourage ambulation HTN Well-controlled on current therapies Continue atenolol HLD Continue statin Seasonal allergies Continue home inhalers p.r.n. Diet-controlled diabetes type 2 Followed by endocrinology outpatient Diabetic diet Factor 5 deficiency Not on any current medication Followed by Hematology outpatient Obesity class 3 Patient reports she used to weigh over 500 lb, has lost 100 lb by walking in the past year Low-fat diet, encourage ambulation as much as possible Mood disorder Continue home meds Full Code Attending:?Dr. Negrete DVT Prophylaxis: Lovenox Pt will require a hospitalization of at least two nights for treatment of?right lower leg cellulitis with sepsis. Patient require hospitalization on the medical floor for administration of IV fluids and IV antibiotics. <Pankaj Negrete MD - Last Filed: 10/21/23 04:15> Quality Stroke Does the patient have a stroke diagnosis?: No <ELIGIO Walton - Last Filed: 10/27/23 14:40> VTE Prior VTE?: No <ELIGIO Walton - Last Filed: 10/27/23 14:40> VTE Risk Level:: Medical - moderate - high <ELIGIO Walton - Last Filed: 10/27/23 14:40> VTE Device Contraindication: Treatment Not Indicated <ELIGIO Walton - Last Filed: 10/27/23 14:40> VTE Drug Contraindication: N/A - Med Ordered <ELIGIO Walton - Last Filed: 10/27/23 14:40>
[2023-10-20 13:10] LABS: B Type Natriuretic Peptide 35 pg/mL (<100)
--- NOTE | 2023-10-20 13:48 | PM.SEPBOLA4 ---
Sepsis Bolus Exclusion Sepsis Bolus Exclusion Date of Occurrence: 10/20/23 This patient met severe sepsis criteria due to the following condition(s):: Lactate>=4mmol/L In my clinical judgement the administration of 30 ml/kg of crystalloid would be detrimental to this patient due to the patient's following conditions:: Concern for fluid overload Other (must be specific):: Pt is morbidly obese with BMI >63, and has been experiencing increasing LLE Replace the 30 mls/kg with (*zero amount not acceptable): *Note: One of the salomon must be documented Colloids amount given in mls:: 2,000 At a rate of (must be > 125 cchr):: 150
[2023-10-20 14:30] VITALS: BP 111/53; PULSE 130; RESP 35; TEMP 37.1; O2SAT 95
[2023-10-20 14:52] LABS: Glucose, Whole Blood 149 mg/dL (60-115)
[2023-10-20 15:19] VITALS: BP 134/53; PULSE 125; RESP 20; TEMP 37.5; O2SAT 99
--- NOTE | 2023-10-20 18:09 | P.PICC_ITS ---
[facility] Diagnosis: patient septic IV access Indication: IV access Pertinent Labs: Reviewed Technique: Following informed consent including risks, benefits and alternatives and using sterile technique including cap and mask, sterile gown, glove and drape, the left arm was prepped and draped in the usual sterile fashion of full barrier technique with CHG. Following completion of [place] Protocol the skin and soft tissues were anesthetized with 1% Lidocaine plain. Using ultrasound guidance, the left basilic vein access was obtained by this RN in a second attempt. Over an 0.018 wire through peel-away sheath, a 5 chilean triple lumen PASV PICC line was positioned. Catheter length is 54 cm internal length, external length at the 0 cm external justyn, for a total trimmed length of 54 inches. The procedure was performed in 9. Tip verification was performed by Becca Solis with Sherlock 3CG. Tip located in SVC. Ultrasound was used to document vein patency and for needle entry. A formal ultrasound picture and cardiac rhythm strip was recorded. Vascular Retail Sales Assistant has released the line for use and it is currently dressed with a StatLock, Tegaderm, and CHG disc. Verification has been performed for blood return and line patency. Requested chest xray prior to use. Arm Circumference: Equipment: Cantimer Solo HF Catheter with Sherlock 3CG Tip Catheter Type: 5 chilean PASV triple lumen PICC Lot #: [id number]
[2023-10-20] MEDS: Enoxaparin Sodium 40 MG/0.4 ML SYRINGE SUBCUT (18:20)
--- NOTE | 2023-10-20 18:34 | PC.NURSE ---
Pt transferred to unit by RN and PROCESS [employer]ESE COOKER from [facility] floor around 1430. Upon first appearance, pt noted to be lethargic, diaphoretic, and tachypneic. Pt placed on tele and noted to be tachycardic in the 130s. Upon physical assessment, pt noted to be lethargic but easily arousable. Pt observed to have increased respiratory effort with wheezing in the trachea. O2 sat 98% on room air. Significant nonpitting edema and erythema noted to BLE. MD notified of findings. Dr Gates and ELIGIO Schneider at bedside. Unable to begin IV fluids and IV antibiotics due to inability to obtain peripheral IV access by 4 RNs. MD notified. Consult to IR placed for PICC line. PICC line placed with CXR confirmation results pending. No other concerns at this time.
[2023-10-20] MEDS: 0.9 % Sodium Chloride 1,000 ML 999 ML IV ×2 (18:44→20:08)
[2023-10-20 19:19] VITALS: BP 115/56; PULSE 130; RESP 22; TEMP 39.2; O2SAT 93
[2023-10-20 20:00] VITALS: RESP 42
[2023-10-20 20:24] LABS: Lactic Acid 3.3 mmol/L (0.5-2.0)
[2023-10-20] MEDS: Clindamycin Phosphate/D5W 600 MG/50 ML PIGGYBACK 100 MG IV (20:35)
[2023-10-20] MEDS: Acetaminophen 325 MG TABLET 650 MG PO (20:35)
[2023-10-20] MEDS: 0.9 % Sodium Chloride Flush 10 ML SYRINGE 5 ML IVFLUSH (21:06)
[2023-10-20] MEDS: Ampicillin Sodium/Sulbactam Na 3 GM VIAL IV (21:06)
[2023-10-20 22:06] LABS: Reflex Lactate? Lactic Acid Added
[2023-10-20 22:49] LABS: ~Lactic Acid-LAB USE ONLY 1.8 mmol/L (0.5-2.0)
[2023-10-21] VITALS (8 sets, daily range): BP systolic 99–129; BP diastolic 42–56; PULSE 113–131; RESP 20–44; TEMP 37–39.3; O2SAT 87–95
--- NOTE | 2023-10-21 | ECG_ITS ---
Test Reason : tachycardia Blood Pressure : / mmHG Vent. Rate : 124 BPM Atrial Rate : 124 BPM P-R Int : 150 ms QRS Dur : 094 ms QT Int : 300 ms P-R-T Axes : 053 032 021 degrees QTc Int : 431 ms Sinus tachycardia Otherwise normal ECG When compared with ECG of 20-OCT-2023 09:14, No significant change was found Referred By: Jass Pineda Electronically Signed By:Car Quintanilla
[2023-10-21] MEDS: Acetaminophen 1,000 MG/100 ML PIGGYBACK 400 MG IV ×2 (01:32→22:39)
[2023-10-21] MEDS: 0.9 % Sodium Chloride Flush 3 ML SYRINGE IVFLUSH ×5 (01:34→21:13)
[2023-10-21 01:51] LABS: Glucose, Whole Blood 129 mg/dL (60-115)
[2023-10-21] MEDS: Ampicillin Sodium/Sulbactam Na 3 GM VIAL IV (03:44)
--- NOTE | 2023-10-21 04:15 | PM.EVENT ---
Event Note Date of Service: 10/21/23 Event Note: Noted that patient continues to be febrile and tachycardic. Upon evaluation, patient is mentating well but tachypneic. Will broaden antibiotics and resuscitate with IV crystalloids and colloids. Placed on supplemental oxygen, hypoxia likely due to sepsis but obtaining chest x-ray and VBG. ICU evaluated>> patient ok to be on med tele with close monitoring. Time Spent With Patient Time: Total time managing care of this patient today ____ minutes.
--- NOTE | 2023-10-21 04:22 | PM.EVENT ---
Documented by User: Harry Chandler NP 10/21/23 04:30 Event Note Date of Service: 10/21/23 Event Note: ICU consulted for hypotension. Patient noted to be febrile, tachycardic to 120s, blood pressure 99/42. Patient mentating well alert and oriented x3, reports feeling chills from fever. Patient with significant lower extremity cellulitis, on Unasyn. Recent lactate from 2200 at 1.8. Receiving tylenol IV at the time of my assement. Patient does not require ICU level of care at this time. Recommend: Broaden antibiotic coverage 1L bolus and 100ml of albumin Please contact ICU if patient condition worsens Time Spent With Patient Time: Total time managing care of this patient today ____ minutes. Documented by User: Lottie Doty MD 10/23/23 17:37 Event Note Date of Service: 10/23/23
[2023-10-21] MEDS: Enoxaparin Sodium 40 MG/0.4 ML SYRINGE SUBCUT ×2 (04:51→17:37)
[2023-10-21] MEDS: Albumin Human 25 % 100 ML IV (04:51)
[2023-10-21] MEDS: 0.9 % Sodium Chloride 1,000 ML 999 ML IV (04:52)
[2023-10-21 05:39] LABS: Hematocrit 28.7 % (37.0-47.0); Hemoglobin 9.7 g/dl (12.0-16.0); Mean Corpuscular HGB Conc 33.8 g/dl (31.0-35.0); Mean Corpuscular Hemoglobin 28.8 pg (27.0-33.0); Mean Corpuscular Volume 85.2 fL (80.0-98.0); Mean Platelet Volume 10.1 fL (9.4-12.3); Platelet Count 115 X10*3/uL (160-400); Red Blood Count 3.37 X10*6/uL (4.20-5.50); Red Cell Distribution Width 14.1 % (11.0-16.0); White Blood Count 13.5 X10*3/uL (4.8-10.8)
[2023-10-21 05:56] LABS: VBG HCO3 27 mmol/L (22-26); VBG pCO2 36 mmHg; VBG pH 7.48 (7.32-7.43); VBG pO2 51 mmHg
[2023-10-21 05:57] LABS: Anion Gap 14 (12-20); Blood Urea Nitrogen 21 mg/dL (9-16); Calcium 8.3 mg/dL (8.4-10.2); Carbon Dioxide 25 mmol/L (22-29); Chloride 104 mmol/L (96-108); Creatinine Clr Calc Pharmacy 157.8; Estimated Glomerular Filt Rate > 60; Glucose Random 116 mg/dL (60-115); Potassium 3.6 mmol/L (3.3-5.1); Sodium 139 mmol/L (135-145); Venous Blood Gas Refer to POC result
[2023-10-21] MEDS: vancomycin/NS 2,000 MG/500 ML PLAST..BAG 250 MG IV (06:03)
--- NOTE | 2023-10-21 07:00 | CA_ITS ---
Transthoracic Echocardiogram Patient (Last, First, Middle): Zeinab Cantu J Gender: Female Date of : 1990 Age: 33 Procedure Date: 10/21/2023 Procedure Type: Transthoracic Echocardiogram Location: [facility] [place] Height: 154.94 cm Weight: 200.49 kg BSA: 2.65 m2 Heart Rate: bpm BP: 99 / 42 mmHg Design Intern: Referring MD: Pankaj Negrete MD Symptoms: Endocarditis Study Quality: Technically Difficult Conclusions: - Normal left ventricular size and systolic function. There is moderately increased left ventricular wall thickness. The visually estimated ejection fraction is between 60-65%. - Normal right ventricular cavity size and systolic function. - Poor valvular assessment due to poor quality of study. - Consider a KETURAH if clinically appropriate. Findings Procedure Information The study quality is limited by patients body habitus. Left Ventricle Normal left ventricular size and systolic function. There is moderately increased left ventricular wall thickness. The visually estimated ejection fraction is between 60-65%. Regional wall motion abnormalities can not be excluded due to suboptimal endocardial definition. Diastolic function is normal for age. Right Ventricle Normal right ventricular cavity size and systolic function. Atria The left atrium is mildly dilated. Aortic Valve The aortic valve was not well visualized. There is no aortic valve stenosis. There is no aortic valve regurgitation. Mitral Valve The mitral valve was not well visualized. There is no mitral valve regurgitation. There is no mitral valve stenosis. Pulmonic Valve The pulmonic valve was not well visualized. Tricuspid Valve The tricuspid valve was not well visualized. Tricuspid regurgitation envelope is inadequate for calculation of right ventricular systolic pressure. Mildly elevated right atrial pressure. Great Vessels All visible segments of the aorta are normal in size. Venous The inferior vena cava is dilated and collapses greater than 50% with inspiration. Pericardium/Pleural There is no evidence of pericardial effusion. Prior Study Comparison No prior study available for comparison. Recommendations, Care & Conclusions Consider a KETURAH if clinically appropriate. Measurements 2D Linear Measurements IVSd: 1.30 0.6-0.9/0.6-1.0 cm LVIDd: 4.55 3.9-5.3/4.2-5.9 cm LVIDd Index: 1.72 2.4-3.2/2.2-3.1 cm/m2 LVIDs: 3.07 2.0-3.6 cm LVPWd: 1.31 0.7-1.1 cm Ao Root: 2.60 2.1-3.5 cm LA Diam: 3.70 2.7-3.8/3.0-4.0 cm LAIDs Index: 1.40 1.5-2.3 cm/m2 LV Mass: 283.78 67-162/88-224 g LV Mass Index: 107.09 43-95/49-115 g/m2 LVOT Diam: 2.20 3.0+(-)1.3 cm Mitral Valve MV Pk E: 1.27 MV Decel Time: 185.00 E'Lateral: 8.92 E'Medial: 12.90 E/E' Med: 9.80 E/E' Lat: 14.20 PHT: 54.00 MVA PHT: 4.07 Decel Seward: 6.86 Aortic Valve AoV Pk Wilbur: 1.72 AoV Mn Wilbur: 1.15 AoV VTI: 0.30 AoV Pk Grad: 12.00 Aov Mn Grad: 6.00 WILMAR Cont.VTI: 1.95 LVOT LVOT Pk Wilbur: 1.09 LVOT Mn Wilbur: 0.66 LVOT VTI: 0.16 LVOT Pk Grad: 5.00 LVOT Mn Grad: 2.00 LVOT Diam: 2.20 LVOT Area: 3.80 Diastolic Function MV Pk E: 1.27 E'Medial: 12.90 E/E' Med: 9.80 E' Laterial: 8.92 E/E' Lat: 14.20 Right Ventricle TAPSE (mm): 27.50 Tricuspid Valve TR Pk Wilbur: 2.30 TR Pk Grad: 21.00 Great Vessels Aorta Ao Root-2D: 2.60 2.0-3.7 cm Pulmonary Valve PV Pk Wilbur: 1.32 Peak PV Grad: 7.00 Updated in Other Vendor System with Status of Final Car Quintanilla MD electronically signed on 10/21/2023 9:14:13 PM with status of Final
--- NOTE | 2023-10-21 07:27 | PC.NURSE ---
PLEASE REFER TO PHYSICIAN NOTIFICATION FOR PREVIOUS EVENTS [id number]: Dr. Edwin bentley with pt's current VS, BP 99/42, HR 125-130, temp. 100.2 oral. Pt. easily awakens to voice. RR remains tachypneic. 3.5L NC in place, maintaining sat's 91-93%. See MAR, pt. received Albumin 25% x1 dose, Vancomycin 2GM IV and 1 Liter NS bolus. Handoff to oncoming RN.
[2023-10-21] MEDS: 0.9 % Sodium Chloride Flush 10 ML SYRINGE 5 ML IVFLUSH (07:48)
--- NOTE | 2023-10-21 08:09 | PHA.MEDREC ---
Pharmacy Consult ? Medication Reconciliation Pharmacy has completed the medication reconciliation. Patient transfered from [address]
--- NOTE | 2023-10-21 08:14 | PHA.PROG ---
Admission Date/Time: October 20, 2023 14:23 Indication: Cellulitis w/ sepsis Weight in k.6 kg Adjusted body weight in K.34 Obesity Dosing Indication % IBW: OBESE Serum Creatinine - Last 168 Hours 10/21/23 05:32 Creatinine 0.98 Estimated CrCl and GFR - Last 168 Hours 10/21/23 05:32 Estim Creat Clear Calc 157.8 Estimated GFR > 60 Vancomycin Loading Dose: 2,000MG Current Vancomycin Dosing Regimen: 1,500mg Q12H Vancomycin Monitoring using AUC goal of 400 - 600 range with trough as surrogate marker: 580 Date and Time for next Vancomycin Level to be drawn: 10/22 16:00 Pharmacist Comments on Vancomycin Plan: Plan is to get pt up to goal AUC, then will use Obese model. Vancomycin dosing will take advantage of ClrTouch as a clinical decision support tool that uses Bayesian modeling to calculate individual patient's pharmacokinetic parameters and forecast the patient's drug concentration time course with the target goal AUC 24 range of 400 - 600 mg/L/hr.
[2023-10-21 08:17] LABS: Glucose, Whole Blood 76 mg/dL (60-115)
[2023-10-21 09:00] LABS: Glucose, Whole Blood 97 mg/dL (60-115)
--- NOTE | 2023-10-21 09:26 | MHC.CM.PN ---
Addendum entered by Taylor Morgan RN 10/21/23 10:31: PER M5 SW, PT HAS OUTPT [facility] SERVICES, [facility] INITIAL [facility]. PT ACTUALLY LIVES W/FATHER AND PT'S PARENTS SUPPORT HER, PT'S CAFE NEVER REOPENED D/T PT'S INSTABILITY. PT'S SISTER AND PARENTS ARE VERY SUPPORTIVE TO PT. PER M5 SW'S NOTE ON 10/19 PT REMAINS DISORGANIZED AND NONSENSICAL HOWEVER PLEASANT AND LESS LABILE. PSYCHIATRIC PROVIDER IS DEAN LUNDY [facility] CM: RITU AT [facility] OFFICE, [facility] OFFICE IN [facility] MOM: MIRELLA MADRIGAL [phone] SISTER: REANNA WHO IS SUPPORTIVE TO PT [phone] Original Note: EMR REVIEWED, PT W/CELLULITIS OF LLE/SEPSIS, CM MET W/PT WHO REPORTS SHE LIVES ALONE, OWNS A LOCAL COFFEE SHOP IN [facility], IS FULLY INDEP W/CARE, DENIES USE OF DME/HOME SERVICES. PT REPORTS SHE DOES NOT WANT OR FEEL THE NEED TO RETURN TO AND PREFERS TO DC HOME. PT REPORTS SHE HAS BEEN TRYING TO GET IN TOUCH W/HER DAD/HCP JESÚS [phone] (PHONE GOING STRAIGHT TO VOICEMAIL) AND HASN'T BEEN ABLE TO GET THROUGH, PT REPORTS HE IS IN ICU AT THE [facility], CM CONTACTED ICU AND PT WAS STEPPED DOWN TO TELE RM 431 RM PHONE #[phone], CM ATTEMPTED TO CALL W/PT HOWEVER NO ANSWER AT TIME OF CALL, PT REQUESTING CM RETURN TO [facility], CM WILL REVISIT W/PT. PT MAY NEED PT EVAL FOR DISPO.
--- NOTE | 2023-10-21 11:09 | HO.PM.IMPN ---
Subjective Subjective Date of Service: 10/21/23 Interval History: Events from last night noted, had high-grade fever, tachycardia and tachypnea. This morning patient denies fever complaining of palpitations, no shortness of breath, no chest pain, no lightheadedness, no dizziness Took diabetic diet no nausea no vomiting or abdominal pain. Complaining of persistent right lower extremity redness and swelling. Review of Systems All other system reviewed and negative Physical Exam Vital Signs: Vital Signs: Last Vital Signs Temp 98.6 F 10/21/23 08:25 Pulse 129 H 10/21/23 08:00 Resp 21 H 10/21/23 08:00 BP 115/56 L 10/21/23 08:00 Pulse Ox 94 10/21/23 08:00 O2 Del Method Nasal Cannula 10/21/23 08:00 O2 Flow Rate 3 10/21/23 08:00 Const: Other: General awake alert x3, resting comfortably in no acute distress. Neck supple no JVD. CVS regular rate rhythm, Respiratory lungs clear to auscultation, no respiratory distress, no wheeze, no rhonchi. Gastrointestinal abdomen soft, non tender, bowel sounds audible, no guarding , no rigidity. Extremities bilateral lower extremity edema rt>left, right lower extremity redness extending towards knee, positive warmth left lower extremity redness lower leg, no open wounds No drainage, see pictures in admission note. Neuro non focal Skin no rash Psych appropriate affect Objective Data Active Medications Acetaminophen (Acetaminophen 325 Mg Tablet) 650 mg PO Q6H PRN PRN Reason: Pain, Mild (Pain Scale 1-3) Last Admin: 10/20/23 20:35 Dose: 650 mg Documented By: LETA Atenolol (Atenolol 25 Mg Tablet) 25 mg PO DAILY [facility]; Protocol Dextrose (Dextrose 50 % 25 Gm/50 Ml Syringe) 25 gm IVPUSH Q15M PRN; Protocol PRN Reason: per Hypoglycemia Standing Ord. Divalproex Sodium (Divalproex Sodium Sprinkles 125 Mg ) 1,000 mg PO BID [facility] Docusate Sodium (Docusate Sodium 100 Mg Capsule) 100 mg PO DAILY PRN PRN Reason: Constipation Enoxaparin Sodium (Enoxaparin Sodium 40 Mg/0.4 Ml Syringe) 40 mg SUBCUT Q12H [facility] Last Admin: 10/21/23 04:51 Dose: 40 mg Documented By: LETA Glucose (Glucose Gel 15 Gm Gel..Gram.) 15 gm PO Q15M PRN; Protocol PRN Reason: per Hypoglycemia Standing Ord. Hydroxyzine HCl (Hydroxyzine Hcl 25 Mg Tablet) 25 mg PO Q6H PRN PRN Reason: Anxiety Piperacillin Sod/Tazobactam (Sod 4.5 gm/ Sodium Chloride) 100 mls @ 200 mls/hr IV Q6H [facility] Vancomycin HCl 1,500 mg/ (Sodium Chloride) 500 mls @ 333.333 mls/hr IV Q12H [facility] Insulin Human Lispro (Insulin Lispro 100 Unit/Ml 3 Ml Vial) 0 unit SUBCUT QIDACHS [facility]; Protocol Last Admin: 10/21/23 08:22 Dose: Not Given Documented By: SABRINA Non-Admin Reason: No Insulin Coverage Lamotrigine (Lamotrigine 25 Mg Tablet) 25 mg PO BEDTIME [facility] Lorazepam (Lorazepam 1 Mg Tablet) 1 mg PO BEDTIME [facility] Magnesium Hydroxide (Milk Of Magnesia 30 Ml Oral.Susp) 30 ml PO DAILY PRN PRN Reason: Constipation Pharmacy Consult (Consult Rx Vancomycin Dosing) 1 each MISCELLANE DAILY PRN PRN Reason: Consult order Sodium Chloride (0.9 % Sodium Chloride Flush 3 Ml Syringe) 3 ml IVFLUSH QSHIFT [facility] Last Admin: 10/21/23 07:48 Dose: 3 ml Documented By: SABRINA Sodium Chloride (0.9 % Sodium Chloride Flush 10 Ml Syringe) 5 ml IVFLUSH TID [facility] Last Admin: 10/21/23 07:48 Dose: 5 ml Documented By: SABRINA Trazodone HCl (Trazodone Hcl 50 Mg Tablet) 50 mg PO BEDTIME MRX1 PRN PRN Reason: Insomnia Labs 10/21/23 05:32 10/21/23 05:32 Labs: Laboratory Results - last 24 hr 10/20/23 10/20/23 10/20/23 10:37 14:44 20:00 MCV MCH MCHC RDW Plt Count MPV Absolute Nucleated RBC Nucleated RBC % (auto) VBG pH VBG pCO2 VBG pO2 VBG HCO3 VBG O2 Saturation VBG Base Excess Anion Gap Estim Creat Clear Calc Estimated GFR POC Glucose 149 H Random Glucose Lactic Acid 3.3 H* Lactic Acid F/U @ 2Hr Calcium B-Natriuretic Peptide 35 10/20/23 10/21/23 10/21/23 22:34 01:45 05:32 MCV 85.2 MCH 28.8 MCHC 33.8 RDW 14.1 Plt Count 115 L MPV 10.1 Absolute Nucleated RBC 0.000 Nucleated RBC % (auto) 0.0 VBG pH VBG pCO2 VBG pO2 VBG HCO3 VBG O2 Saturation VBG Base Excess Anion Gap 14 Estim Creat Clear Calc 157.8 Estimated GFR > 60 POC Glucose 129 H Random Glucose 116 H Lactic Acid Lactic Acid F/U @ 2Hr 1.8 Calcium 8.3 L D B-Natriuretic Peptide 10/21/23 10/21/23 10/21/23 05:35 08:13 08:57 MCV MCH MCHC RDW Plt Count MPV Absolute Nucleated RBC Nucleated RBC % (auto) VBG pH 7.48 H VBG pCO2 36 VBG pO2 51 VBG HCO3 27 H VBG O2 Saturation 84.0 VBG Base Excess 4.0 Anion Gap Estim Creat Clear Calc Estimated GFR POC Glucose 76 97 Random Glucose Lactic Acid Lactic Acid F/U @ 2Hr Calcium B-Natriuretic Peptide Assessment and Plan (1) Cellulitis of right lower leg: Status: Acute Plan 33-year-old female with a PMH significant for?diet controlled diabetes type 2, HTN, HLD, factor 5 deficiency, seasonal asthma, obesity class 3, and bipolar disorder?with multiple inpatient psych hospitalizations who was initially admitted to [facility] unit on 09/07/2022 for acute brendon, disinhibition, sexual preoccupation and inability to modulate her affect. Medical consult placed today for worsening right lower extremities and clinical deterioration. Patient will be brought to the medical floor for management of right lower extremity cellulitis with sepsis. Right lower leg cellulitis with sepsis/Gram-positive bacteremia. Feeling better this morning, no fevers no chills Tachycardia and tachypnea improving lactic acid trended down BP improved status post IV fluids WBC remains elevated, blood culture 1/2 positive for Gram-positive cocci, follow final blood culture report, follow CBC and renal function on vanco and Zosyn, started 10/20/2023 Lower leg edema Worsening the past few weeks No evidence for CHF; CXR clear, BNP WNL Low-salt diet, keep legs elevated, compression stockings HTN Soft blood pressures, will resume low-dose atenolol 25 mg at Home 75 mg daily Seasonal allergies Continue home inhalers p.r.n. Diet-controlled diabetes type 2 Followed by endocrinology outpatient Diabetic diet Factor 5 deficiency Not on any current medication Followed by Hematology outpatient Obesity class 3 Patient reports she used to weigh over 500 lb, has lost 100 lb by walking in the past year Low-fat diet, encourage ambulation as much as possible Mood disorder Resume Depakote 1000 mg b.i.d. lorazepam and lamotrigine Full Code DVT Prophylaxis: Lovenox Pt will require continued inpatient hospitalization for treatment of?right lower leg cellulitis with sepsis on lorazepam for administration of IV fluids and IV antibiotics. Quality Stroke Does the patient have a stroke diagnosis?: No VTE Prior VTE?: No VTE Risk Level:: Medical - moderate - high VTE Device Contraindication: Treatment Not Indicated VTE Drug Contraindication: N/A - Med Ordered
[2023-10-21 11:47] LABS: Glucose, Whole Blood 88 mg/dL (60-115)
--- NOTE | 2023-10-21 11:48 | HO.WOUND ---
Wound Consult: Follow up 33yr old?Female admitted to [facility] on 09/06/23 to the Behavioral Health Unit recently transferred to [facility] unit on for Cellulitis and sepsis treatment. See progress notes and H&P for detailed history.? Wound consult follow up for Right Breast and skin folds in addition to bilateral Lower Leg edema. Patient agreeable to assessment and photo documentation.? Skin folds assessed and are clean without significant evidence of Fungal dermatitis there is evidence of MASD noted to the right breast. Interdry applied. Right Breast area of Hidradenitis Suppurative within ski fold - partial thickness tissue loss no induration or erythema noted. Continue with Hydrofiber and foam dressing in addition to interdry for moisture translocation and wicking properties. The left abd fold was assessed -he been seen and documented by Hospitalist - there is a small soft indurated red purple intact area of tissue - not consistent with Hidradenitis Suppurative - no open tissue at this time direct care team should watch for increased erythema and increased induration. The observed bilateral inner thighs and breast and axilla are noted for scarring and tract like old injury consistent with Hidradenitis Suppurative. Interdry applied to all skin folds. Bilateral Legs were assessed significant swelling and redness noted - warmth noted and on the right dorsal side of foot small skin tear due to fluid overload noted leaking serous filled fluid - scant amount of yellow slough noted to wound bed see photo - Hydrofiber and Foam applied. The left great toe is red swollen and has partial thickness tissue loss noted along the toenail - hydrocolloid applied. Outpatient recommendation to follow up with Podiatry. Advised to elevate lower legs. The patients fluid overload is medically treated and is currently receiving lasix - in addition she will benefit from compression therapy. Compression therapy [facility] awaiting arrival. Right Breast Left Leg Left Toes Right Leg Right Foot Topical Wound Care Recommendations 1. Bilateral Breast, ABD skin fold and Groin - Gently cleanse with Ph balanced soap and water, allow to dry - keep skin fold open to air to allow for tissue to completely dry. Apply Interdry Sheets to aid in translocating moisture. Be sure to leave two inch tail for moisture wicking away from skin fold. 2. Right Foot, Right Breast and Left Great Toe and 3rd toe - Cleanse with NS, pat dry. Cover open wounds with cut to size Durafiber AG cover with Foam dressing or Hydrocolloid dressing change every other day. Elevate Bilateral lower legs throughout the day on pillows. If compression socks arrive TT wound care nurse for application and education. Re-consult wound care Nurse for wound deterioration or wound changes.
[2023-10-21] MEDS: Piperacillin Sodium/Tazobactam 4.5 GM in 0.9 % Sodium Chloride 100 ML IV ×2 (12:48→17:41)
[2023-10-21] MEDS: atenoloL 25 MG TABLET PO (12:48)
--- NOTE | 2023-10-21 13:41 | PM.EVENT ---
Documented by User: Rianna Santos, WILMER 10/21/23 13:56 Event Note Date of Service: 10/21/23 Event Note: Pt transferred from on 10/20/23 for cellulitis, sepsis. On the unit she had stabilized with Depakote 2000 mg and Olanzapine 40 mg. She started an Invega Sustenna trial, most recent dosing 10/11/23( next dosing 11/08/23). Today, she is in bed, working with medical team on wound care and positioning. She is calm, alert, oriented, without agitation but with some loosening of associations, tangential content, mild lability. This is improved from her recent symptoms. Of note, mother had just visited and reports that she finds pts mental status to be improved, clearer and with a calmer presentation. A current stressor that should be known is that pt's father, who usually calls pt several times a day and visits regularly has been away for~2 weeks currently, due to cardiac arrest while in rehab. He is currently in ICU with [facility] and is not able to make contact with pt. This has caused significant stress as family has informed her he is in hospital, but with limited details of his condition. She, at times, will ask if he has . This does produce distress, anxiety and agitation and she may need reassurance that he is improving (per family report). Today, will restart Olanzapine 10 mg bid and 5 mg q 4 hours as needed. Time Spent With Patient Time: Total time managing care of this patient today ____ minutes. Documented by User: James Argueta MD 10/25/23 17:12 Event Note Date of Service: 10/25/23
[2023-10-21] MEDS: OLANZapine ODT 10 MG TAB.RAPDIS TRANSLINGU ×2 (13:52→20:59)
[2023-10-21 17:00] LABS: Glucose, Whole Blood 111 mg/dL (60-115)
[2023-10-21] MEDS: OLANZapine 5 MG TABLET PO (17:37)
[2023-10-21] MEDS: hydrOXYzine HCL 25 MG TABLET PO (17:37)
[2023-10-21] MEDS: Acetaminophen 325 MG TABLET 650 MG PO (17:50)
[2023-10-21] MEDS: vancomycin HCL 1,500 MG in 0.9 % Sodium Chloride 500 ML 333.33 MG IV (17:53)
[2023-10-21] MEDS: Divalproex Sodium Sprinkles 125 MG CAP.DR.SPR 1000 MG PO (21:00)
[2023-10-21] MEDS: LORazepam 1 MG TABLET PO (21:01)
[2023-10-21] MEDS: lamoTRIgine 25 MG TABLET PO (21:01)
[2023-10-21] MEDS: traZODone HCL 50 MG TABLET PO (21:07)
[2023-10-21 21:15] LABS: Glucose, Whole Blood 98 mg/dL (60-115)
--- NOTE | 2023-10-21 22:14 | P.CNID_ITS ---
History of Present Illness Data of Consult Service Date: 10/21/23 Requesting physician: Frida Polanco Primary Care Provider: Jose Estes MD [facility] Reason for consult: bilateral leg erythema She presents with redness bilateral legs. This has been present for a week. Now they appear better. Review of Systems 2 Review of Systems: Yes all other systems are reviewed and are negative PMFSH Past Medical History Medical History Hidradenitis suppurativa Schizoaffective disorder, bipolar type Hypertension, essential Uncontrolled type 2 diabetes mellitus with hyperglycemia Leg edema Obesity, morbid Asthma Factor 5 Leiden mutation, heterozygous Seasonal asthma Family History Family History Father HTN (hypertension) Diabetes mellitus Mother Afib Maternal Grandfather No problems noted. Maternal Grandmother No problems noted. Paternal Grandmother Breast cancer Paternal Grandfather No problems noted. Sister No problems noted. Family history: reviewed and not pertinent Surgical History Surgical History History of ovarian cyst History of wisdom tooth extraction Social History Social History Household Members: Family Household Members Other:: Father Housing: House Do you presently have visiting nurse or other home services: No Unable to assess alcohol history related to: Unknown Alcohol intake: never Comment: Independent Patient Tobacco Use Status: Former Tobacco user Tobacco use type: Cigarette Years Smoked: 3 yrs e-Cigarette/Vaping Use: Never Used Second Hand Smoke Exposure: No (Unknown; pt unable to participate due to mental status.) Use of substances other than those prescribed or required for medical reasons: No Currently Displaying Signs/Symptoms of Drug Intoxication Withdrawal: No Have you been hit, kicked, punched, or otherwise hurt by someone within the past year? If so, by whom?: No Do you feel safe in your current relationship?: No Current Relationship Is there a partner from a previous relationship who is making you feel unsafe now?: No Are you made to feel afraid or neglected: No [facility] Practices: Congregational Advance Directives: No Advance Directives Information Provided: No Do you have thoughts of harming others: None Do you have a plan to hurt others: No Plan Recently lost weight without trying: No How much weight loss: 2-13 pounds Eating poorly because of decreased appetite: No Nutrition screen score: 1 Nutrition Risks: No Nutritional Risk Patient : No : No Poor oral hygiene: No service: No Current occupational status: employed Sexual orientation: Straight/Heterosexual Cognitive needs: No Hearing needs: No Vision needs: Yes Meds Allergies Allergy/AdvReac Type Severity Reaction Status Date / Time kiwi [KIWI] Allergy Mild HIVES Verified 07/07/23 10:07 mold [MOLD EXTRACTS*] Allergy Mild HIVES Verified 07/07/23 10:07 Active Medications: Current Medications Acetaminophen (Acetaminophen 325 Mg Tablet) 650 mg PO Q6H PRN PRN Reason: Pain, Mild (Pain Scale 1-3) Last Admin: 10/21/23 17:50 Dose: 650 mg Atenolol (Atenolol 25 Mg Tablet) 25 mg PO DAILY [facility]; Protocol Last Admin: 10/21/23 12:48 Dose: 25 mg Dextrose (Dextrose 50 % 25 Gm/50 Ml Syringe) 25 gm IVPUSH Q15M PRN; Protocol PRN Reason: per Hypoglycemia Standing Ord. Divalproex Sodium (Divalproex Sodium Sprinkles 125 Mg Cap.) 1,000 mg PO BID [facility] Last Admin: 10/21/23 21:00 Dose: 1,000 mg Docusate Sodium (Docusate Sodium 100 Mg Capsule) 100 mg PO DAILY PRN PRN Reason: Constipation Enoxaparin Sodium (Enoxaparin Sodium 40 Mg/0.4 Ml Syringe) 40 mg SUBCUT Q12H [facility] Last Admin: 10/21/23 17:37 Dose: 40 mg Glucose (Glucose Gel 15 Gm Gel..Gram.) 15 gm PO Q15M PRN; Protocol PRN Reason: per Hypoglycemia Standing Ord. Hydroxyzine HCl (Hydroxyzine Hcl 25 Mg Tablet) 25 mg PO Q6H PRN PRN Reason: Anxiety Last Admin: 10/21/23 17:37 Dose: 25 mg Piperacillin Sod/Tazobactam (Sod 4.5 gm/ Sodium Chloride) 100 mls @ 200 mls/hr IV Q6H [facility] Last Infusion: 10/21/23 21:12 Dose: Infused Vancomycin HCl 1,500 mg/ (Sodium Chloride) 500 mls @ 333.333 mls/hr IV Q12H [facility] Last Infusion: 10/21/23 21:12 Dose: Infused Insulin Human Lispro (Insulin Lispro 100 Unit/Ml 3 Ml Vial) 0 unit SUBCUT QIDACHS [facility]; Protocol Last Admin: 10/21/23 21:13 Dose: Not Given Lamotrigine (Lamotrigine 25 Mg Tablet) 25 mg PO BEDTIME [facility] Last Admin: 10/21/23 21:01 Dose: 25 mg Lorazepam (Lorazepam 1 Mg Tablet) 1 mg PO BEDTIME [facility] Last Admin: 10/21/23 21:01 Dose: 1 mg Magnesium Hydroxide (Milk Of Magnesia 30 Ml Oral.Susp) 30 ml PO DAILY PRN PRN Reason: Constipation Olanzapine (Olanzapine Odt 10 Mg Tab.Rapdis) 10 mg TRANSLINGU BID [facility] Last Admin: 10/21/23 20:59 Dose: 10 mg Olanzapine (Olanzapine 5 Mg Tablet) 5 mg PO Q4H PRN PRN Reason: brendon, psychosis, sev agitatio Last Admin: 10/21/23 17:37 Dose: 5 mg Pharmacy Consult (Consult Rx Vancomycin Dosing) 1 each MISCELLANE DAILY PRN PRN Reason: Consult order Sodium Chloride (0.9 % Sodium Chloride Flush 3 Ml Syringe) 3 ml IVFLUSH QSHIFT [facility] Last Admin: 10/21/23 21:13 Dose: 3 ml Sodium Chloride (0.9 % Sodium Chloride Flush 10 Ml Syringe) 5 ml IVFLUSH TID [facility] Last Admin: 10/21/23 16:55 Dose: Not Given Trazodone HCl (Trazodone Hcl 50 Mg Tablet) 50 mg PO BEDTIME MRX1 PRN PRN Reason: Insomnia Last Admin: 10/21/23 21:07 Dose: 50 mg Physical Exam 2 Vital Signs: Vital Signs: Last Vital Signs Temp 101.3 F H 10/21/23 20:00 Pulse 113 H 10/21/23 20:00 Resp 22 H 10/21/23 20:00 BP 103/43 L 10/21/23 20:00 Pulse Ox 94 10/21/23 16:00 O2 Del Method Nasal Cannula 10/21/23 16:00 O2 Flow Rate 3 10/21/23 16:00 Extrem: Other: bilateral redness legs tinea pedis Results Labs 10/21/23 05:32 10/21/23 05:32 Labs: Short CBC 10/21/23 Range/Units 05:32 WBC 13.5 H (4.8-10.8) X10*3/uL Hgb 9.7 L D (12.0-16.0) g/dl Hct 28.7 L D (37.0-47.0) % Plt Count 115 L (160-400) X10*3/uL BMP 10/21/23 05:32 Sodium 139 Potassium 3.6 Chloride 104 Carbon Dioxide 25 BUN 21 H Creatinine 0.98 Calcium 8.3 L D Assessment and Plan (1) Cellulitis of right lower leg: Status: Acute This is improving Plan Continue Vancomycin and Zosyn Add antifungal such as lamisil between toes Also can give steroid cream to legs day or two Switch to po Doxycycline and Augmentin for a week soon outpatient.
--- NOTE | 2023-10-21 22:19 | PM.EVENT ---
Event Note Date of Service: 10/21/23 Event Note: follow blood culture,gram positive cocci x 1 may be contaminant Time Spent With Patient Time: Total time managing care of this patient today ____ minutes.
[2023-10-21] MEDS: OLANZapine 10 MG VIAL 5 MG IM (22:40)
[2023-10-22] VITALS (15 sets, daily range): BP systolic 104–121; BP diastolic 46–64; PULSE 85–115; RESP 18–50; TEMP 36.2–38.9; O2SAT 9–98
[2023-10-22] MEDS: Piperacillin Sodium/Tazobactam 4.5 GM in 0.9 % Sodium Chloride 100 ML IV ×4 (02:16→18:04)
[2023-10-22] MEDS: 0.9 % Sodium Chloride Flush 10 ML SYRINGE 5 ML IVFLUSH ×4 (02:20→22:25)
[2023-10-22] MEDS: LORazepam 2 MG/ML VIAL 1 MG IVPUSH (02:55)
[2023-10-22] MEDS: Enoxaparin Sodium 40 MG/0.4 ML SYRINGE SUBCUT ×2 (02:56→15:32)
[2023-10-22] MEDS: Albuterol/Iprat 2.5/0.5MG 3 ML AMPUL.NEB INHALE ×4 (04:55→17:55)
[2023-10-22] MEDS: vancomycin HCL 1,500 MG in 0.9 % Sodium Chloride 500 ML 333.3 MG IV (06:34)
[2023-10-22 07:45] LABS: Glucose, Whole Blood 76 mg/dL (60-115)
[2023-10-22] MEDS: OLANZapine ODT 10 MG TAB.RAPDIS TRANSLINGU (08:04)
[2023-10-22] MEDS: atenoloL 25 MG TABLET PO (08:04)
[2023-10-22] MEDS: Divalproex Sodium Sprinkles 125 MG CAP.DR.SPR 1000 MG PO (08:04)
[2023-10-22] MEDS: hydrOXYzine HCL 25 MG TABLET PO ×2 (09:58→16:52)
[2023-10-22] MEDS: OLANZapine 5 MG TABLET PO ×2 (09:58→16:52)
[2023-10-22 11:50] LABS: Glucose, Whole Blood 115 mg/dL (60-115)
--- NOTE | 2023-10-22 12:39 | HO.PM.IMPN ---
Subjective Subjective Date of Service: 10/23/23 Interval History: Patient awake alert, screaming asking for snacks, complaining of being hungry, denies fever, chills, taking names of random people and want to know if staff is related to them, wants to be out of bed and ambulate to commode, very demanding, disorganized, tangential thoughts. Review of Systems All other system reviewed and negative Physical Exam Vital Signs: Vital Signs: Last Vital Signs Temp 97.2 F 10/22/23 11:50 Pulse 108 H 10/22/23 11:50 Resp 22 H 10/22/23 11:50 BP 115/55 L 10/22/23 11:50 Pulse Ox 96 10/22/23 11:50 O2 Del Method Nasal Cannula 10/22/23 11:50 O2 Flow Rate 5 10/22/23 11:50 Const: Other: General awake alert, yelling, screaming in no acute distress. Neck supple no JVD. CVS regular rate rhythm, Respiratory lungs audible wheeze,b/l exp wheezing, no respiratory distress, no rales,diminished Gastrointestinal abdomen soft, non tender, bowel sounds audible, no guarding , no rigidity. Extremities bilateral lower extremity edema rt>left, right lower extremity redness improving , persistent edema , left leg redness improved. Neuro non focal Psych, illogical, distracted, disorganized, tangential thought process, illogical, at times hostile and angry. Objective Data Active Medications Acetaminophen (Acetaminophen 325 Mg Tablet) 650 mg PO Q6H PRN PRN Reason: Pain, Mild (Pain Scale 1-3) Last Admin: 10/21/23 17:50 Dose: 650 mg Documented By: SABRINA Albuterol/Ipratropium (Albuterol/Iprat 2.5/0.5mg 3 Ml Ampul.Neb) 3 ml INHALE Q4H PRN PRN Reason: Wheezing Last Admin: 10/22/23 09:22 Dose: 3 ml Documented By: JASPREET Atenolol (Atenolol 25 Mg Tablet) 25 mg PO DAILY REPLACED BY [facility]; Protocol Last Admin: 10/22/23 08:04 Dose: 25 mg Documented By: RUI Dextrose (Dextrose 50 % 25 Gm/50 Ml Syringe) 25 gm IVPUSH Q15M PRN; Protocol PRN Reason: per Hypoglycemia Standing Ord. Divalproex Sodium (Divalproex Sodium Sprinkles 125 Mg ) 1,000 mg PO BID REPLACED BY [facility] Last Admin: 10/22/23 08:04 Dose: 1,000 mg Documented By: RUI Docusate Sodium (Docusate Sodium 100 Mg Capsule) 100 mg PO DAILY PRN PRN Reason: Constipation Enoxaparin Sodium (Enoxaparin Sodium 40 Mg/0.4 Ml Syringe) 40 mg SUBCUT Q12H REPLACED BY [facility] Last Admin: 10/22/23 02:56 Dose: 40 mg Documented By: KASHIF Fluticasone Propionate (Fluticasone Propionate Nasal 16 Gm [place]) 1 spray NOSTRIL-B BID REPLACED BY [facility] Glucose (Glucose Gel 15 Gm Gel..Gram.) 15 gm PO Q15M PRN; Protocol PRN Reason: per Hypoglycemia Standing Ord. Hydroxyzine HCl (Hydroxyzine Hcl 25 Mg Tablet) 25 mg PO Q6H PRN PRN Reason: Anxiety Last Admin: 10/22/23 09:58 Dose: 25 mg Documented By: RUI Piperacillin Sod/Tazobactam (Sod 4.5 gm/ Sodium Chloride) 100 mls @ 200 mls/hr IV Q6H REPLACED BY [facility] Last Admin: 10/22/23 11:54 Dose: 200 mls/hr Documented By: RUI Vancomycin HCl 1,500 mg/ (Sodium Chloride) 500 mls @ 333.333 mls/hr IV Q12H REPLACED BY [facility] Last Infusion: 10/22/23 08:14 Dose: Infused Documented By: RUI Insulin Human Lispro (Insulin Lispro 100 Unit/Ml 3 Ml Vial) 0 unit SUBCUT QIDACHS REPLACED BY [facility]; Protocol Last Admin: 10/22/23 11:52 Dose: Not Given Documented By: RUI Non-Admin Reason: No Insulin Coverage Lamotrigine (Lamotrigine 25 Mg Tablet) 25 mg PO BEDTIME REPLACED BY [facility] Last Admin: 10/21/23 21:01 Dose: 25 mg Documented By: KASHIF Lorazepam (Lorazepam 1 Mg Tablet) 1 mg PO BEDTIME REPLACED BY [facility] Last Admin: 10/21/23 21:01 Dose: 1 mg Documented By: KASHIF Magnesium Hydroxide (Milk Of Magnesia 30 Ml Oral.Susp) 30 ml PO DAILY PRN PRN Reason: Constipation Olanzapine (Olanzapine Odt 10 Mg Tab.Rapdis) 10 mg TRANSLINGU BID REPLACED BY [facility] Last Admin: 10/22/23 08:04 Dose: 10 mg Documented By: RUI Olanzapine (Olanzapine 5 Mg Tablet) 5 mg PO Q4H PRN PRN Reason: brendon, psychosis, sev agitatio Last Admin: 10/22/23 09:58 Dose: 5 mg Documented By: RUI Pharmacy Consult (Consult Rx Vancomycin Dosing) 1 each MISCELLANE DAILY PRN PRN Reason: Consult order Sodium Chloride (0.9 % Sodium Chloride Flush 3 Ml Syringe) 3 ml IVFLUSH QSHIFT REPLACED BY [facility] Last Admin: 10/21/23 21:13 Dose: 3 ml Documented By: KASHIF Sodium Chloride (0.9 % Sodium Chloride Flush 10 Ml Syringe) 5 ml IVFLUSH TID REPLACED BY [facility] Last Admin: 10/22/23 08:11 Dose: 5 ml Documented By: RUI Trazodone HCl (Trazodone Hcl 50 Mg Tablet) 50 mg PO BEDTIME MRX1 PRN PRN Reason: Insomnia Last Admin: 10/21/23 21:07 Dose: 50 mg Documented By: KASHIF Labs 10/23/23 04:15 10/23/23 04:14 Labs: Laboratory Results - last 24 hr 10/21/23 10/21/23 10/22/23 16:55 21:10 07:41 POC Glucose 111 98 76 10/22/23 11:47 POC Glucose 115 Assessment and Plan (1) Cellulitis of right lower leg: Status: Acute Plan 33-year-old female with a PMH significant for?diet controlled diabetes type 2, HTN, HLD, factor 5 deficiency, seasonal asthma, obesity class 3, and bipolar disorder?with multiple inpatient psych hospitalizations who was initially admitted to [facility] psychiatry unit on 09/07/2022 for acute brendon, disinhibition, sexual preoccupation and inability to modulate her affect. Medical consult placed today for worsening right lower extremities and clinical deterioration. Patient will be brought to the medical floor for management of right lower extremity cellulitis with sepsis. Right lower leg cellulitis with sepsis not related to diabetes. Noted to have recurrent fevers Tachycardia and tachypnea improving lactic acid trended down WBC remains elevated, blood culture grew coagulase-negative Staphylococcus unlikely pathogen Patient declined labs this morning Continue IV vanco and Zosyn, started 10/20/2023 Acute hypoxic respiratory failure Requiring 2 L of oxygen, not on home O2, no history of CHF, no history of COPD, history of intermittent asthma ddx Likely due to Fluid overload s/p IV fluids , asthma exacerbation,? PE with sedentary lifestyle , history of factor 5 deficiency normal BNP, CXR 10/21 showed pulmonary vascular congestion and increased perihilar markings question technical. Will give IV Lasix , obtain CTA chest to rule out PE, IV Solu Medrol, DuoNeb scheduled and as needed,on abx as above follow clinical course closely, add incentive spirometry, keep legs elevated, monitor I's and O's. HTN Soft blood pressures, on low-dose atenolol 25 mg at Home on 75 mg daily . Seasonal allergies Continue home inhalers p.r.n. Diet-controlled diabetes type 2 Followed by endocrinology outpatient Continue Diabetic diet and insulin sliding scale, hold metformin due to lactic acidosis. Factor 5 deficiency Not on any current medication Followed by Hematology outpatient Obesity class 3 Patient reports she used to weigh over 500 lb, has lost 100 lb by walking in the past year Low-fat diet, encourage ambulation as much as possible Mood disorder Noted to have tangential thought process, depersonalization and derealization. Continue Depakote 1000 mg b.i.d. lorazepam and lamotrigine , seen by psych 10/21 started on Zyprexa, will request for daily psych evaluation. Full Code DVT Prophylaxis: Lovenox Pt will require continued inpatient hospitalization for treatment of?right lower leg cellulitis with sepsis and IV antibiotics. Quality Stroke Does the patient have a stroke diagnosis?: No VTE Prior VTE?: No VTE Risk Level:: Medical - moderate - high VTE Device Contraindication: Treatment Not Indicated VTE Drug Contraindication: N/A - Med Ordered
[2023-10-22] MEDS: Fluticasone Propionate Nasal 16 GM SPRAY 1 SPRAY NOSTRIL-B (12:47)
[2023-10-22] MEDS: Furosemide 40 MG/4 ML VIAL IVPUSH ×2 (12:48→16:52)
--- NOTE | 2023-10-22 13:24 | P.CNPS_ITS ---
History of Present Illness Date of Service: 10/22/23 Chief Complaint: Cellulitis W/Sepsis Reason for Consult: Psychiatric follow-up Requesting physician: Frida Polanco Discussed with referring provider: No Sources of Information: patient interviewed and chart reviewed HPI Narrative: Zeinab is a 33-year-old woman who was transferred from [facility] to [facility] because of right lower leg cellulitis. I was asked to check up on her over the weekend. She continues to be hyperverbal with some indications of psychosis. She is in bed and was interactive within her means. She has been medication compliant for the most part. She was asking about her providers from whom she wants to see and I told her that it would be after 10/25. Past Psychiatric History: Inpatient: Most recent [facility] 07/28; [facility] 01/2023 OP: [facility], [facility]-therapy Suicide attempts: none Medication trials: haldol, depakote, olanzapine, latuda Review of Systems Review of Systems Yes Unobtainable due to mental status [facility] Medical History Hidradenitis suppurativa Schizoaffective disorder, bipolar type Hypertension, essential Uncontrolled type 2 diabetes mellitus with hyperglycemia Leg edema Obesity, morbid Asthma Factor 5 Leiden mutation, heterozygous Seasonal asthma Surgical History History of ovarian cyst History of wisdom tooth extraction Family History: maternal family of psychosis, ECT treatments Social History: Pt grew up with both parents until they . She currently lives with her father. Not , no children. 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 Trauma History: affirms Diagnostics Vital Signs (24Hr): Vital Signs - 24 hr 10/21/23 16:00 10/21/23 20:00 10/22/23 00:00 Temperature 101.7 F H 101.3 F H 100.3 F Pulse Rate 114 H 113 H 108 H Respiratory Rate 20 22 H 19 Blood Pressure 111/45 L 103/43 L 117/49 L Pulse Oximetry 94 89 L Oxygen Delivery Method Nasal Cannula Nasal Cannula Oxygen Flow Rate 3 3 10/22/23 04:00 10/22/23 04:55 10/22/23 07:51 Temperature 99.9 F 97.8 F Pulse Rate 115 H 114 H 114 H Respiratory Rate 25 H 18 22 H Blood Pressure 121/64 121/56 L Pulse Oximetry 96 92 Oxygen Delivery Method Nasal Cannula Nasal Cannula Oxygen Flow Rate 3 3 10/22/23 09:26 10/22/23 11:50 Temperature 97.2 F Pulse Rate 106 H 108 H Respiratory Rate 22 H 22 H Blood Pressure 115/55 L Pulse Oximetry 96 Oxygen Delivery Method Nasal Cannula Oxygen Flow Rate 5 Labs 10/21/23 05:32 10/21/23 05:32 Labs: Laboratory Results - last 48 hr 10/20/23 10/20/23 10/20/23 14:44 20:00 22:34 WBC RBC Hgb Hct MCV MCH MCHC RDW Plt Count MPV Absolute Nucleated RBC Nucleated RBC % (auto) VBG pH VBG pCO2 VBG pO2 VBG HCO3 VBG O2 Saturation VBG Base Excess Sodium Potassium Chloride Carbon Dioxide Anion Gap BUN Creatinine Estim Creat Clear Calc Estimated GFR POC Glucose 149 H Random Glucose Lactic Acid 3.3 H* Lactic Acid F/U @ 2Hr 1.8 Calcium 10/21/23 10/21/23 10/21/23 01:45 05:32 05:35 WBC 13.5 H RBC 3.37 L D Hgb 9.7 L D Hct 28.7 L D MCV 85.2 MCH 28.8 MCHC 33.8 RDW 14.1 Plt Count 115 L MPV 10.1 Absolute Nucleated RBC 0.000 Nucleated RBC % (auto) 0.0 VBG pH 7.48 H VBG pCO2 36 VBG pO2 51 VBG HCO3 27 H VBG O2 Saturation 84.0 VBG Base Excess 4.0 Sodium 139 Potassium 3.6 Chloride 104 Carbon Dioxide 25 Anion Gap 14 BUN 21 H Creatinine 0.98 Estim Creat Clear Calc 157.8 Estimated GFR > 60 POC Glucose 129 H Random Glucose 116 H Lactic Acid Lactic Acid F/U @ 2Hr Calcium 8.3 L D 10/21/23 10/21/23 10/21/23 08:13 08:57 11:43 WBC RBC Hgb Hct MCV MCH MCHC RDW Plt Count MPV Absolute Nucleated RBC Nucleated RBC % (auto) VBG pH VBG pCO2 VBG pO2 VBG HCO3 VBG O2 Saturation VBG Base Excess Sodium Potassium Chloride Carbon Dioxide Anion Gap BUN Creatinine Estim Creat Clear Calc Estimated GFR POC Glucose 76 97 88 Random Glucose Lactic Acid Lactic Acid F/U @ 2Hr Calcium 10/21/23 10/21/23 10/22/23 16:55 21:10 07:41 WBC RBC Hgb Hct MCV MCH MCHC RDW Plt Count MPV Absolute Nucleated RBC Nucleated RBC % (auto) VBG pH VBG pCO2 VBG pO2 VBG HCO3 VBG O2 Saturation VBG Base Excess Sodium Potassium Chloride Carbon Dioxide Anion Gap BUN Creatinine Estim Creat Clear Calc Estimated GFR POC Glucose 111 98 76 Random Glucose Lactic Acid Lactic Acid F/U @ 2Hr Calcium 10/22/23 11:47 WBC RBC Hgb Hct MCV MCH MCHC RDW Plt Count MPV Absolute Nucleated RBC Nucleated RBC % (auto) VBG pH VBG pCO2 VBG pO2 VBG HCO3 VBG O2 Saturation VBG Base Excess Sodium Potassium Chloride Carbon Dioxide Anion Gap BUN Creatinine Estim Creat Clear Calc Estimated GFR POC Glucose 115 Random Glucose Lactic Acid Lactic Acid F/U @ 2Hr Calcium Imaging Radiology Impressions: ITS Impressions Chest X-Ray 10/20/23 18:22 IMPRESSION: Hypoexpanded lungs without acute process. Chest X-Ray 10/21/23 04:49 IMPRESSION: Low lung volumes. There appears to be pulmonary vascular congestion and perihilar increased markings. This may be technical. Developing edema is also a consideration. Mental Status Exam Mental Status Exam Narrative: Zeinab was seen lying on her bed and feels uncomfortable being in bed all the time. She is alert, interactive within her means. She is able to answer some questions briefly but not able to elaborate. Denies any hallucinations. No self-harm. She is hyperverbal. Judgment is marginal to impaired Medications Medications Current Medications Acetaminophen (Acetaminophen 325 Mg Tablet) 650 mg PO Q6H PRN PRN Reason: Pain, Mild (Pain Scale 1-3) Last Admin: 10/21/23 17:50 Dose: 650 mg Albuterol/Ipratropium (Albuterol/Iprat 2.5/0.5mg 3 Ml Ampul.Neb) 3 ml INHALE Q4H PRN PRN Reason: Wheezing Last Admin: 10/22/23 09:22 Dose: 3 ml Atenolol (Atenolol 25 Mg Tablet) 25 mg PO DAILY [facility]; Protocol Last Admin: 10/22/23 08:04 Dose: 25 mg Dextrose (Dextrose 50 % 25 Gm/50 Ml Syringe) 25 gm IVPUSH Q15M PRN; Protocol PRN Reason: per Hypoglycemia Standing Ord. Divalproex Sodium (Divalproex Sodium Sprinkles 125 Mg ) 1,000 mg PO BID [facility] Last Admin: 10/22/23 08:04 Dose: 1,000 mg Docusate Sodium (Docusate Sodium 100 Mg Capsule) 100 mg PO DAILY PRN PRN Reason: Constipation Enoxaparin Sodium (Enoxaparin Sodium 40 Mg/0.4 Ml Syringe) 40 mg SUBCUT Q12H [facility] Last Admin: 10/22/23 02:56 Dose: 40 mg Fluticasone Propionate (Fluticasone Propionate Nasal 16 Gm [place]) 1 spray NOSTRIL-B BID [facility] Last Admin: 10/22/23 12:47 Dose: 1 spray Glucose (Glucose Gel 15 Gm Gel..Gram.) 15 gm PO Q15M PRN; Protocol PRN Reason: per Hypoglycemia Standing Ord. Hydroxyzine HCl (Hydroxyzine Hcl 25 Mg Tablet) 25 mg PO Q6H PRN PRN Reason: Anxiety Last Admin: 10/22/23 09:58 Dose: 25 mg Piperacillin Sod/Tazobactam (Sod 4.5 gm/ Sodium Chloride) 100 mls @ 200 mls/hr IV Q6H [facility] Last Infusion: 10/22/23 12:44 Dose: Infused Vancomycin HCl 1,500 mg/ (Sodium Chloride) 500 mls @ 333.333 mls/hr IV Q12H [facility] Last Infusion: 10/22/23 08:14 Dose: Infused Insulin Human Lispro (Insulin Lispro 100 Unit/Ml 3 Ml Vial) 0 unit SUBCUT QIDACHS [facility]; Protocol Last Admin: 10/22/23 11:52 Dose: Not Given Lamotrigine (Lamotrigine 25 Mg Tablet) 25 mg PO BEDTIME [facility] Last Admin: 10/21/23 21:01 Dose: 25 mg Lorazepam (Lorazepam 1 Mg Tablet) 1 mg PO BEDTIME [facility] Last Admin: 10/21/23 21:01 Dose: 1 mg Magnesium Hydroxide (Milk Of Magnesia 30 Ml Oral.Susp) 30 ml PO DAILY PRN PRN Reason: Constipation Olanzapine (Olanzapine Odt 10 Mg Tab.Rapdis) 10 mg TRANSLINGU BID [facility] Last Admin: 10/22/23 08:04 Dose: 10 mg Olanzapine (Olanzapine 5 Mg Tablet) 5 mg PO Q4H PRN PRN Reason: brendon, psychosis, sev agitatio Last Admin: 10/22/23 09:58 Dose: 5 mg Pharmacy Consult (Consult Rx Vancomycin Dosing) 1 each MISCELLANE DAILY PRN PRN Reason: Consult order Sodium Chloride (0.9 % Sodium Chloride Flush 3 Ml Syringe) 3 ml IVFLUSH QSHIFT [facility] Last Admin: 10/21/23 21:13 Dose: 3 ml Sodium Chloride (0.9 % Sodium Chloride Flush 10 Ml Syringe) 5 ml IVFLUSH TID [facility] Last Admin: 10/22/23 08:11 Dose: 5 ml Trazodone HCl (Trazodone Hcl 50 Mg Tablet) 50 mg PO BEDTIME MRX1 PRN PRN Reason: Insomnia Last Admin: 10/21/23 21:07 Dose: 50 mg Allergies Allergies Allergy/AdvReac Type Severity Reaction Status Date / Time kiwi [KIWI] Allergy Mild HIVES Verified 07/07/23 10:07 mold [MOLD EXTRACTS*] Allergy Mild HIVES Verified 07/07/23 10:07 Assessment & Plan Assessment & Plan (1) Schizoaffective disorder, bipolar type: Status: Acute Code(s): F25.0 - Schizoaffective disorder, bipolar type Plan Current medications were reviewed. Continue current psychiatric medications and PRNs as ordered. Total time managing care of this patient today ____ minutes.
[2023-10-22] MEDS: 0.9 % Sodium Chloride Flush 3 ML SYRINGE IVFLUSH (15:33)
--- NOTE | 2023-10-22 15:52 | P.CDIM_ITS ---
PROVIDER RESPONSE TEXT: To clarify, the appropriate diagnosis supported by the clinical indicators: Cellulitis is not associated with Diabetes mellitus Type 2 QUERY TEXT: PHYSICIAN'S DOCUMENTATION REQUEST Date of Query: 10/21/2023 12:01 PM EST Patient Name: Zeinab Cantu Admit Date: 10/20/2023 Dear Frida Polanco, A review of the medical record indicates additional documentation may be needed. Please review below and update the documentation accordingly. Clinical Indicators: Patient admitted for management of right lower extremity cellulitis with sepsis. Right leg warmth and erythema, redness and swelling, no open wounds. Diet controlled DM 2 Humalog, low salt diet Please clarify the following regarding the Complications of Diabetes Mellitus (DM): Cellulitis associated with/due to Diabetes mellitus Type 2 Cellulitis is not associated with Diabetes mellitus Type 2 Other Other (explain) Clinically unable to determine (explain) Thank you, Ina Whitt, CCS, CDIS Use of terms such as suspected, likely, concern for, or probable (associated with a specific diagnosi s that is being evaluated, monitored, or treated as if it exists) are acceptable and can be coded in the inpatient se tting, when documented at the time of discharge. Please use your independent medical judgment in providing your response. THIS QUERY IS PART OF THE PERMANENT MEDICAL RECORD
[2023-10-22 16:27] LABS: Hematocrit 27.8 % (37.0-47.0); Hemoglobin 9.1 g/dl (12.0-16.0); Mean Corpuscular HGB Conc 32.7 g/dl (31.0-35.0); Mean Corpuscular Hemoglobin 28.1 pg (27.0-33.0); Mean Corpuscular Volume 85.8 fL (80.0-98.0); PLT CLUMP 1; Red Blood Count 3.24 X10*6/uL (4.20-5.50)
[2023-10-22 16:33] LABS: Anion Gap 15 (12-20); Blood Urea Nitrogen 18 mg/dL (9-16); Calcium 8.2 mg/dL (8.4-10.2); Carbon Dioxide 25 mmol/L (22-29); Chloride 104 mmol/L (96-108); Estimated Glomerular Filt Rate > 60; Glucose Random 136 mg/dL (60-115); Potassium 3.6 mmol/L (3.3-5.1); Sodium 140 mmol/L (135-145)
[2023-10-22 16:39] LABS: Vancomycin Random 10.9 mcg/mL (15-20)
[2023-10-22 16:42] LABS: Glucose, Whole Blood 132 mg/dL (60-115)
[2023-10-22] MEDS: Potassium Chloride ER 20 MEQ TAB.ER.PRT 40 MEQ PO (16:52)
[2023-10-22 17:20] LABS: Platelet Count 109 X10*3/uL (160-400); White Blood Count 8.4 X10*3/uL (4.8-10.8)
[2023-10-22] MEDS: methylPREDNISolone Sod Succ 40 MG/ML VIAL IVPUSH (17:24)
[2023-10-22] MEDS: vancomycin HCL 1,250 MG in 0.9 % Sodium Chloride 250 ML 166.67 MG IV (18:04)
[2023-10-22 18:21] LABS: ABG Base Excess 6.5 mmol/L; ABG HCO3 30 mmol/L (22-26); ABG pCO2 41 mmHg (32-45); ABG pH 7.47 (7.35-7.45); ABG pO2 65 mmHg (83-108)
[2023-10-22] MEDS: methylPREDNISolone Sod Succ 125 MG/2 ML VIAL IVPUSH (18:37)
[2023-10-22] MEDS: Albuterol Sulfate (0.083%) 2.5 MG/3 ML VIAL.NEB 10 MG INHALE (18:52)
--- NOTE | 2023-10-22 19:02 | W.PM.CCCN ---
History of Present Illness Data of Consult Service Date: 10/22/23 Requesting physician: Crow Gates Primary Care Provider: Jose Estes MD HPI Reason for consult: Dyspnea/status asthmaticus 33-year-old morbidly obese type 2 diabetic and hypertensive with underlying schizoaffective disorder on Psychiatry for the last 6 weeks several days ago transferred due to fever with altered mental status evidence of extensive right lower extremity cellulitis and by ultrasound recent DVT ruled out because she is a heterozygote for factor 5 Leiden without a personal history of hypercoagulability manifestation and she has been on DVT prophylaxis only not full anticoagulation but started for presumptive Gram-positive coccus on vancomycin and Zosyn but remains febrile and today developed acute dyspnea with marked increase in work of breathing diaphragmatic effort very significant with compensated pCO2 of 41 and I do not really have a continuum and in time for pCO2 tracking but with a minute ventilation which probably exceeded 20-30 liters/minute the certainly would have expected a lower pCO2 so I am concerned about her fatiguing and she was brought down for 4 BiPAP which seemed to help her symptomatically along with a continuous 10 mg high-dose albuterol treatment Review of Systems Review of Systems: Yes Unobtainable due to mental status PMFSH Past Medical History Medical History (Updated 10/23/23 @ 17:34 by Lottie Doty MD) Foot swelling Hidradenitis suppurativa Schizoaffective disorder, bipolar type Hypertension, essential Uncontrolled type 2 diabetes mellitus with hyperglycemia Leg edema Obesity, morbid Asthma Factor 5 Leiden mutation, heterozygous Seasonal asthma Family History Family History Father HTN (hypertension) Diabetes mellitus Mother Afib Maternal Grandfather No problems noted. Maternal Grandmother No problems noted. Paternal Grandmother Breast cancer Paternal Grandfather No problems noted. Sister No problems noted. Family history: reviewed and not pertinent Surgical History Surgical History History of ovarian cyst History of wisdom tooth extraction Social History Social History Household Members: Family Household Members Other:: Father Housing: House Do you presently have visiting nurse or other home services: No Unable to assess alcohol history related to: Unknown Alcohol intake: never Comment: Independent Patient Tobacco Use Status: Former Tobacco user Tobacco use type: Cigarette Years Smoked: 3 yrs e-Cigarette/Vaping Use: Never Used Second Hand Smoke Exposure: No (Unknown; pt unable to participate due to mental status.) Use of substances other than those prescribed or required for medical reasons: No Currently Displaying Signs/Symptoms of Drug Intoxication Withdrawal: No Have you been hit, kicked, punched, or otherwise hurt by someone within the past year? If so, by whom?: No Do you feel safe in your current relationship?: No Current Relationship Is there a partner from a previous relationship who is making you feel unsafe now?: No Are you made to feel afraid or neglected: No Hindu Healthcare Practices: Denominational Advance Directives: No Advance Directives Information Provided: No Do you have thoughts of harming others: None Do you have a plan to hurt others: No Plan Recently lost weight without trying: No How much weight loss: 2-13 pounds Eating poorly because of decreased appetite: No Nutrition screen score: 1 Nutrition Risks: No Nutritional Risk Patient : No : No Poor oral hygiene: No service: No Current occupational status: employed Sexual orientation: Straight/Heterosexual Cognitive needs: No Hearing needs: No Vision needs: Yes Meds Allergies Allergy/AdvReac Type Severity Reaction Status Date / Time kiwi [KIWI] Allergy Mild HIVES Verified 07/07/23 10:07 mold [MOLD EXTRACTS*] Allergy Mild HIVES Verified 07/07/23 10:07 Active Medications: Current Medications Acetaminophen (Acetaminophen 325 Mg Tablet) 650 mg PO Q6H PRN PRN Reason: Pain, Mild (Pain Scale 1-3) Last Admin: 10/21/23 17:50 Dose: 650 mg Albuterol/Ipratropium (Albuterol/Iprat 2.5/0.5mg 3 Ml Ampul.Neb) 3 ml INHALE Q4H PRN PRN Reason: Wheezing Last Admin: 10/22/23 15:55 Dose: 3 ml Albuterol/Ipratropium (Albuterol/Iprat 2.5/0.5mg 3 Ml Ampul.Neb) 3 ml INHALE RQ4H WHILE AWAKE INOCENCIO Last Admin: 10/22/23 17:55 Dose: 3 ml Atenolol (Atenolol 25 Mg Tablet) 25 mg PO DAILY INOCENCIO; Protocol Last Admin: 10/22/23 08:04 Dose: 25 mg Dextrose (Dextrose 50 % 25 Gm/50 Ml Syringe) 25 gm IVPUSH Q15M PRN; Protocol PRN Reason: per Hypoglycemia Standing Ord. Divalproex Sodium (Divalproex Sodium Sprinkles 125 Mg ) 1,000 mg PO BID [facility] Last Admin: 10/22/23 08:04 Dose: 1,000 mg Docusate Sodium (Docusate Sodium 100 Mg Capsule) 100 mg PO DAILY PRN PRN Reason: Constipation Enoxaparin Sodium (Enoxaparin Sodium 40 Mg/0.4 Ml Syringe) 40 mg SUBCUT Q12H [facility] Last Admin: 10/22/23 15:32 Dose: 40 mg Fluticasone Propionate (Fluticasone Propionate Nasal 16 Gm [place]) 1 spray NOSTRIL-B BID [facility] Last Admin: 10/22/23 12:47 Dose: 1 spray Glucose (Glucose Gel 15 Gm Gel..Gram.) 15 gm PO Q15M PRN; Protocol PRN Reason: per Hypoglycemia Standing Ord. Hydroxyzine HCl (Hydroxyzine Hcl 25 Mg Tablet) 25 mg PO Q6H PRN PRN Reason: Anxiety Last Admin: 10/22/23 16:52 Dose: 25 mg Piperacillin Sod/Tazobactam (Sod 4.5 gm/ Sodium Chloride) 100 mls @ 200 mls/hr IV Q6H [facility] Last Admin: 10/22/23 18:04 Dose: 200 mls/hr Vancomycin HCl 1,250 mg/ (Sodium Chloride) 250 mls @ 166.667 mls/hr IV Q8H [facility] Last Admin: 10/22/23 18:04 Dose: 166.67 mls/hr Insulin Human Lispro (Insulin Lispro 100 Unit/Ml 3 Ml Vial) 0 unit SUBCUT QIDACHS [facility]; Protocol Last Admin: 10/22/23 16:24 Dose: Not Given Lamotrigine (Lamotrigine 25 Mg Tablet) 25 mg PO BEDTIME [facility] Last Admin: 10/21/23 21:01 Dose: 25 mg Lorazepam (Lorazepam 1 Mg Tablet) 1 mg PO BEDTIME [facility] Last Admin: 10/21/23 21:01 Dose: 1 mg Magnesium Hydroxide (Milk Of Magnesia 30 Ml Oral.Susp) 30 ml PO DAILY PRN PRN Reason: Constipation Methylprednisolone Sodium Succinate (Methylprednisolone Sod Succ 40 Mg/Ml Vial) 40 mg IVPUSH Q8H [facility] Last Admin: 10/22/23 17:24 Dose: 40 mg Olanzapine (Olanzapine Odt 10 Mg Tab.Rapdis) 10 mg TRANSLINGU BID [facility] Last Admin: 10/22/23 08:04 Dose: 10 mg Olanzapine (Olanzapine 5 Mg Tablet) 5 mg PO Q4H PRN PRN Reason: brendon, psychosis, sev agitatio Last Admin: 10/22/23 16:52 Dose: 5 mg Pharmacy Consult (Consult Rx Vancomycin Dosing) 1 each MISCELLANE DAILY PRN PRN Reason: Consult order Sodium Chloride (0.9 % Sodium Chloride Flush 3 Ml Syringe) 3 ml IVFLUSH QSHIFT [facility] Last Admin: 10/22/23 15:33 Dose: 3 ml Sodium Chloride (0.9 % Sodium Chloride Flush 10 Ml Syringe) 5 ml IVFLUSH TID [facility] Last Admin: 10/22/23 15:33 Dose: 5 ml Trazodone HCl (Trazodone Hcl 50 Mg Tablet) 50 mg PO BEDTIME MRX1 PRN PRN Reason: Insomnia Last Admin: 10/21/23 21:07 Dose: 50 mg Physical Exam Vital Signs: Vital Signs: Last Vital Signs Temp 98.1 F 10/22/23 15:04 Pulse 112 H 10/22/23 18:55 Resp 24 H 10/22/23 18:55 BP 113/56 L 10/22/23 15:04 Pulse Ox 92 10/22/23 15:04 O2 Del Method Nasal Cannula 10/22/23 15:04 O2 Flow Rate 5 10/22/23 15:04 Vital signs remained stable but she was tachypneic with a rate of 44 still febrile to 102 able to answer questions but still somewhat lethargic Abdomen markedly obese but soft nontender with no organomegaly Cardiac exam bedside echo although difficult shows hyperdynamic right and left heart with no primary valve or pericardial disease Clear-cut right lower calf concentric cellulitis including the dorsum of the foot but according to nursing much improved over several days earlier Extensive bilateral wheezing Results Labs 10/23/23 04:15 10/23/23 04:14 Labs: Short CBC 10/22/23 Range/Units 16:03 WBC 8.4 (4.8-10.8) X10*3/uL Hgb 9.1 L (12.0-16.0) g/dl Hct 27.8 L (37.0-47.0) % Plt Count 109 L (160-400) X10*3/uL BMP 10/22/23 16:03 Sodium 140 Potassium 3.6 Chloride 104 Carbon Dioxide 25 BUN 18 H Creatinine 0.74 Calcium 8.2 L Assessment and Plan (1) Cellulitis of right lower leg: Status: Acute (2) Foot swelling: Status: Acute (3) Hidradenitis suppurativa: Status: Acute (4) Bipolar disorder with psychotic features: Status: Acute (5) Psychosis: Status: Acute (6) Schizoaffective disorder, bipolar type: Status: Acute (7) Hypertension, essential: Status: Acute (8) Hypokalemia: Status: Acute (9) Seasonal asthma: Status: Acute (10) Lipid disorder: Status: Acute (11) Uncontrolled type 2 diabetes mellitus with hyperglycemia: Status: Acute (12) Anxiety disorder: Status: Acute (13) Hypertension, essential: Status: Acute (14) Asthma with status asthmaticus in adult: Status: Acute Plan And the plan was a 10 mg prolonged the albuterol inhalation and then placement on BiPAP to to remain so hopefully overnight with dexmedetomidine for sedation because her oral antipsychotics really could not be administered Total time managing care of this patient today: 60 minutes.
[2023-10-22] MEDS: dexmedeTOMIDidine HCL/NS 400 MCG/100 ML INFUS..BTL 25.08 MCG IVCONT (19:30)
--- NOTE | 2023-10-22 19:44 | PC.NURSE ---
This RN assumed care of patient approx 1600 pt awake alert occasionally yelling out. Dr Polanco and Sourav DEL VALLE at bedside to see patient. IV lasix and solumedrol given per order. Anastacia care provided for incontinence and pericare provided purewick placed after giving IV lasix for monitoring. Initially on 5L oxygen via nasal cannula satting low 90's. Pt desats during care into 70's requiring more recovery time placed on Wisdom nasal cannula up to 15L for recovery. Pt remains ST on tele 100-120. Plan for CT chest at 2100 npo since 1730. Pt noted to be more drowsy difficulty maintaining awake state with increased respiratory effort RR into 40's with abdominal breathing now requiring 8L via wisdom nasal cannula. Inspiratory/expiratory upper airway wheezes continuously. Dr Polanco and Sourav DEL VALLE notified. RT at bedside for updraft with no improvement. Dr Gates and Paige DEL VALLE at bedside. Second dose IV solumedrol given per order with IV antibiotics infusing. ICU consult placed and Dr Newman at bedside. Pt accepted to ICU report called to Deloris GRIMES. Pt transported by RN and RT with updraft infusing in bed to ICU. Belongings sent with patient.
[2023-10-22 20:42] LABS: Glucose, Whole Blood 179 mg/dL (60-115)
[2023-10-22 20:54] LABS: Appearance Urine Clear; Color Urine Yellow; Glucose Urine UA Negative (Negative); Leukocyte Esterase Urine Small (1+) (Negative); Nitrite Urine Negative (Negative); PH 5.5 (5.0-9.0); UMIC TRIGGER UA YES; Urine Blood Negative (Negative); Urine Ketones Negative (Negative); Urine Protein Negative (Neg-Trace)
[2023-10-22] MEDS: dexmedeTOMIDidine HCL/NS 400 MCG/100 ML INFUS..BTL 75.23 MCG IVCONT ×2 (20:57→22:27)
[2023-10-22 21:55] LABS: Bacteria Urine None Seen (None Seen); Hyaline Casts Urine 0-2 /LPF (0-2); WBC Urine 0-5 /HPF (0-5)
[2023-10-22] MEDS: iohexoL 350 MG/ML 100 ML INFUS..BTL IV (22:08)
[2023-10-22] MEDS: Acetaminophen Supp 650 MG SUPP.RECT PR (22:13)
--- NOTE | 2023-10-22 23:02 | P.PNID_ITS ---
Subjective Subjective Date of Service: 10/22/23 Critical Care Time (minutes): 15 Comment: when I saw patient leg looked better. at around 6 pm fever to 101-102 with no focal signs Objective Data Labs 11/02/23 05:16 11/02/23 05:16 Labs: Laboratory Results - last 24 hr 10/22/23 10/22/23 10/22/23 07:41 11:47 16:03 WBC 8.4 RBC 3.24 L Hgb 9.1 L Hct 27.8 L MCV 85.8 MCH 28.1 MCHC 32.7 RDW 14.0 Plt Count 109 L MPV 11.0 Absolute Nucleated RBC 0.000 Nucleated RBC % (auto) 0.0 O2 Saturation ABG pH at Pt Temp ABG pCO2 at Pt Temp ABG pO2 at Pt Temp ABG HCO3 ABG Base Excess (Actual) Sodium 140 Potassium 3.6 Chloride 104 Carbon Dioxide 25 Anion Gap 15 BUN 18 H Creatinine 0.74 Estim Creat Clear Calc 209.0 Estimated GFR > 60 POC Glucose 76 115 Random Glucose 136 H Calcium 8.2 L Urine Color Urine Appearance Urine pH Ur Specific [place] Urine Protein Urine Glucose (UA) Urine Ketones Urine Blood Urine Nitrite Ur Leukocyte Esterase Urine RBC Urine WBC Ur Squamous Epith Cells Urine Bacteria Hyaline Casts Random Vancomycin 10.9 L 10/22/23 10/22/23 10/22/23 16:16 18:13 20:35 WBC RBC Hgb Hct MCV MCH MCHC RDW Plt Count MPV Absolute Nucleated RBC Nucleated RBC % (auto) O2 Saturation 93.0 ABG pH at Pt Temp 7.47 H ABG pCO2 at Pt Temp 41 ABG pO2 at Pt Temp 65 L ABG HCO3 30 H ABG Base Excess (Actual) 6.5 Sodium Potassium Chloride Carbon Dioxide Anion Gap BUN Creatinine Estim Creat Clear Calc Estimated GFR POC Glucose 132 H Random Glucose Calcium Urine Color Yellow Urine Appearance Clear Urine pH 5.5 Ur Specific [place] 1.020 Urine Protein Negative Urine Glucose (UA) Negative Urine Ketones Negative Urine Blood Negative Urine Nitrite Negative Ur Leukocyte Esterase Small (1+) H Urine RBC 3-5 H Urine WBC 0-5 Ur Squamous Epith Cells 3-5 Urine Bacteria None Seen Hyaline Casts 0-2 Random Vancomycin 10/22/23 20:40 WBC RBC Hgb Hct MCV MCH MCHC RDW Plt Count MPV Absolute Nucleated RBC Nucleated RBC % (auto) O2 Saturation ABG pH at Pt Temp ABG pCO2 at Pt Temp ABG pO2 at Pt Temp ABG HCO3 ABG Base Excess (Actual) Sodium Potassium Chloride Carbon Dioxide Anion Gap BUN Creatinine Estim Creat Clear Calc Estimated GFR POC Glucose 179 H Random Glucose Calcium Urine Color Urine Appearance Urine pH Ur Specific [place] Urine Protein Urine Glucose (UA) Urine Ketones Urine Blood Urine Nitrite Ur Leukocyte Esterase Urine RBC Urine WBC Ur Squamous Epith Cells Urine Bacteria Hyaline Casts Random Vancomycin Physical Exam 2 Vital Signs: Vital Signs: Last Vital Signs Temp 102.0 F H 10/22/23 22:00 Pulse 89 10/22/23 22:00 Resp 32 H 10/22/23 22:41 BP 105/54 L 10/22/23 22:00 Pulse Ox 94 10/22/23 22:00 O2 Del Method BiPAP 10/22/23 22:00 O2 Flow Rate 5 10/22/23 15:04 FiO2 60 10/22/23 22:00 Extrem: Other: decreased redness Assessment and Plan Assessment and plan (1) Chronic stasis dermatitis: Status: Acute Plan Posssible sepsis while being treated adequately for cellulitis. She has been on Zosyn and now is on Zosyn and Vancomycin Would continue Zosyn and Vancomycin Change lines if not done recently. Recheck blood cultures and consider antifungal if still febrile tomorrow. Doubt drug fever but possible. Ensure no clots. Time Spent With Patient Time: Total time managing care of this patient today ____ minutes.
[2023-10-22 23:04] LABS: VBG HCO3 27 mmol/L (22-26); VBG pCO2 43 mmHg; VBG pH 7.41 (7.32-7.43); VBG pO2 43 mmHg
[2023-10-22 23:35] LABS: Venous Blood Gas Refer to POC result
[2023-10-23] VITALS (35 sets, daily range): BP systolic 115–155; BP diastolic 62–98; PULSE 71–94; RESP 15–45; TEMP 38.5–39.7; O2SAT 89–96
[2023-10-23] MEDS: methylPREDNISolone Sod Succ 40 MG/ML VIAL IVPUSH ×3 (00:14→16:27)
[2023-10-23] MEDS: Midazolam HCl/PF 2 MG/2 ML VIAL IVPUSH ×6 (00:15→23:11)
[2023-10-23] MEDS: Piperacillin Sodium/Tazobactam 4.5 GM in 0.9 % Sodium Chloride 100 ML IV ×2 (00:17→06:06)
[2023-10-23] MEDS: dexmedeTOMIDidine HCL/NS 400 MCG/100 ML INFUS..BTL 62.69 MCG IVCONT ×8 (00:22→13:00)
[2023-10-23] MEDS: 0.9 % Sodium Chloride Flush 3 ML SYRINGE IVFLUSH ×4 (00:23→22:25)
[2023-10-23] MEDS: vancomycin HCL 1,250 MG in 0.9 % Sodium Chloride 250 ML 166.67 MG IV ×2 (01:27→09:27)
[2023-10-23 04:32] LABS: VBG Base Excess 4.4 mmol/L; VBG HCO3 29 mmol/L (22-26); VBG pCO2 44 mmHg; VBG pH 7.42 (7.32-7.43); VBG pO2 67 mmHg
[2023-10-23 04:38] LABS: MANUAL DIFF FLAG NO
[2023-10-23] MEDS: Enoxaparin Sodium 40 MG/0.4 ML SYRINGE SUBCUT ×2 (04:38→16:27)
[2023-10-23 04:40] LABS: Hematocrit 31.1 % (37.0-47.0); Hemoglobin 9.9 g/dl (12.0-16.0); Imm Gran Abs Auto 0.05 X10*3/uL (0.00-0.03); Imm Gran Pct Auto 0.9 % (0.0-0.4); Lymphocytes Absolute Auto 0.6 X10*3/uL (1.2-4.9); Lymphocytes Percent Auto 10.1 % (20-40); Mean Corpuscular HGB Conc 31.8 g/dl (31.0-35.0); Mean Corpuscular Hemoglobin 27.7 pg (27.0-33.0); Mean Corpuscular Volume 86.9 fL (80.0-98.0); Mean Platelet Volume 10.7 fL (9.4-12.3); Monocytes Absolute Auto 0.3 X10*3/uL (0.1-1.2); Monocytes Percent Auto 5.2 % (2-11); Neutrophils Absolute Auto 4.7 x10*3/uL (2.0-8.3); Neutrophils Percent Auto 83.8 % (45-73); Platelet Count 112 X10*3/uL (160-400); Red Blood Count 3.58 X10*6/uL (4.20-5.50); Red Cell Distribution Width 13.9 % (11.0-16.0); White Blood Count 5.6 X10*3/uL (4.8-10.8)
[2023-10-23 04:50] LABS: Ammonia 44 umol/L (13-55)
[2023-10-23 04:57] LABS: Venous Blood Gas Refer to POC result
[2023-10-23 05:04] LABS: Alanine Aminotransferase 24 U/L (0-31); Albumin Level 3.2 g/dL (3.5-5.0); Alkaline Phosphatase 63 U/L (39-117); Anion Gap 13 (12-20); Aspartate Amino Transferase 23 U/L (5-31); Bilirubin Total 0.7 mg/dL (0.0-1.0); Blood Urea Nitrogen 21 mg/dL (9-16); Calcium 8.6 mg/dL (8.4-10.2); Carbon Dioxide 27 mmol/L (22-29); Chloride 105 mmol/L (96-108); Creatinine Clr Calc Pharmacy 177.8; Estimated Glomerular Filt Rate > 60; Glucose Random 207 mg/dL (60-115); Phosphorus 3.4 mg/dL (2.7-4.5); Potassium 4.4 mmol/L (3.3-5.1); Sodium 141 mmol/L (135-145); Total Protein 6.8 g/dL (6.5-8.0)
[2023-10-23] MEDS: metroNIDAZOLE/NS 500 MG/100 ML PIGGYBACK 100 MG IV ×2 (05:55→12:22)
[2023-10-23] MEDS: Acetaminophen Supp 650 MG SUPP.RECT PR ×4 (06:34→23:28)
[2023-10-23] MEDS: Albuterol/Iprat 2.5/0.5MG 3 ML AMPUL.NEB INHALE ×4 (07:24→20:10)
[2023-10-23 07:40] LABS: Glucose, Whole Blood 213 mg/dL (60-115)
[2023-10-23] MEDS: Insulin Lispro 100 UNIT/ML 3 ML VIAL SUBCUT ×3 (08:02→16:39)
[2023-10-23] MEDS: 0.9 % Sodium Chloride Flush 10 ML SYRINGE 5 ML IVFLUSH ×3 (08:03→22:25)
[2023-10-23] MEDS: dexmedeTOMIDidine HCL/NS 400 MCG/100 ML INFUS..BTL 75.23 MCG IVCONT ×8 (09:11→23:24)
--- NOTE | 2023-10-23 10:10 | PM.CNGS ---
History of Present Illness Consult details Consult date: 10/23/23 Narrative: 33-year-old female referred for cellulitis of the right leg and right foot swelling. She has been in the psych unit for over a month now because of schizoaffective disorder. She was transferred to the acute care area 3 days ago because of her complaints of pain on the right leg with persistent cellulitis. She presented with some sepsis and required a BiPAP so she was eventually transferred to ICU I have been asked to consult because of some area of swelling on the some of the right foot. The patient remains on the BiPAP machine. She has been having fevers in the ICU. She does not offer much details with regards to her history in view of her significant psych issues as well as on her being on BiPAP. I was able to talk to her mother who stated that there does not seem to have any history of trauma to the area in the past. Review of Systems Review of Systems: Not available in view of the patient's status Yes Unobtainable due to mental status Constitutional: Constitutional: Reports fever(s) Psychiatric: Comments: Has known psych issues with schizoaffective bipolar disease [facility] Past Medical History Medical History (Updated 10/23/23 @ 10:18 by Tyshawn Shaver MD) Foot swelling Hidradenitis suppurativa Schizoaffective disorder, bipolar type Hypertension, essential Uncontrolled type 2 diabetes mellitus with hyperglycemia Leg edema Obesity, morbid Asthma Factor 5 Leiden mutation, heterozygous Seasonal asthma Family History Family History Father HTN (hypertension) Diabetes mellitus Mother Afib Maternal Grandfather No problems noted. Maternal Grandmother No problems noted. Paternal Grandmother Breast cancer Paternal Grandfather No problems noted. Sister No problems noted. Family history: reviewed and not pertinent Surgical History Surgical History History of ovarian cyst History of wisdom tooth extraction Social History Social History Household Members: Family Household Members Other:: Father Housing: House Do you presently have visiting nurse or other home services: No Unable to assess alcohol history related to: Unknown Alcohol intake: never Comment: Independent Patient Tobacco Use Status: Former Tobacco user Tobacco use type: Cigarette Years Smoked: 3 yrs e-Cigarette/Vaping Use: Never Used Second Hand Smoke Exposure: No (Unknown; pt unable to participate due to mental status.) Use of substances other than those prescribed or required for medical reasons: No Currently Displaying Signs/Symptoms of Drug Intoxication Withdrawal: No Have you been hit, kicked, punched, or otherwise hurt by someone within the past year? If so, by whom?: No Do you feel safe in your current relationship?: No Current Relationship Is there a partner from a previous relationship who is making you feel unsafe now?: No Are you made to feel afraid or neglected: No Mosque Healthcare Practices: Religion Advance Directives: No Advance Directives Information Provided: No Do you have thoughts of harming others: None Do you have a plan to hurt others: No Plan Recently lost weight without trying: No How much weight loss: 2-13 pounds Eating poorly because of decreased appetite: No Nutrition screen score: 1 Nutrition Risks: No Nutritional Risk Patient : No : No Poor oral hygiene: No service: No Current occupational status: employed Sexual orientation: Straight/Heterosexual Cognitive needs: No Hearing needs: No Vision needs: Yes Meds Allergies Allergy/AdvReac Type Severity Reaction Status Date / Time kiwi [KIWI] Allergy Mild HIVES Verified 07/07/23 10:07 mold [MOLD EXTRACTS*] Allergy Mild HIVES Verified 07/07/23 10:07 Active Medications: Current Medications Acetaminophen (Acetaminophen 325 Mg Tablet) 650 mg PO Q6H PRN PRN Reason: Pain, Mild (Pain Scale 1-3) Last Admin: 10/21/23 17:50 Dose: 650 mg Acetaminophen (Acetaminophen Supp 650 Mg Supp.Rect) 650 mg SD Q4H PRN PRN Reason: Fever Last Admin: 10/23/23 06:34 Dose: 650 mg Albuterol/Ipratropium (Albuterol/Iprat 2.5/0.5mg 3 Ml Ampul.Neb) 3 ml INHALE Q4H PRN PRN Reason: Wheezing Last Admin: 10/22/23 15:55 Dose: 3 ml Albuterol/Ipratropium (Albuterol/Iprat 2.5/0.5mg 3 Ml Ampul.Neb) 3 ml INHALE RQ4H WHILE AWAKE INOCENCIO Last Admin: 10/23/23 07:24 Dose: 3 ml Atenolol (Atenolol 25 Mg Tablet) 25 mg PO DAILY [facility]; Protocol Last Admin: 10/23/23 10:00 Dose: Not Given Dextrose (Dextrose 50 % 25 Gm/50 Ml Syringe) 25 gm IVPUSH Q15M PRN; Protocol PRN Reason: per Hypoglycemia Standing Ord. Divalproex Sodium (Divalproex Sodium Sprinkles 125 Mg ) 1,000 mg PO BID [facility] Last Admin: 10/23/23 10:00 Dose: Not Given Docusate Sodium (Docusate Sodium 100 Mg Capsule) 100 mg PO DAILY PRN PRN Reason: Constipation Enoxaparin Sodium (Enoxaparin Sodium 40 Mg/0.4 Ml Syringe) 40 mg SUBCUT Q12H [facility] Last Admin: 10/23/23 04:38 Dose: 40 mg Fluticasone Propionate (Fluticasone Propionate Nasal 16 Gm [place]) 1 spray NOSTRIL-B BID [facility] Last Admin: 10/23/23 08:04 Dose: Not Given Glucose (Glucose Gel 15 Gm Gel..Gram.) 15 gm PO Q15M PRN; Protocol PRN Reason: per Hypoglycemia Standing Ord. Hydroxyzine HCl (Hydroxyzine Hcl 25 Mg Tablet) 25 mg PO Q6H PRN PRN Reason: Anxiety Last Admin: 10/22/23 16:52 Dose: 25 mg Piperacillin Sod/Tazobactam (Sod 4.5 gm/ Sodium Chloride) 100 mls @ 200 mls/hr IV Q6H [facility] Last Infusion: 10/23/23 06:38 Dose: Infused Vancomycin HCl 1,250 mg/ (Sodium Chloride) 250 mls @ 166.667 mls/hr IV Q8H [facility] Last Admin: 10/23/23 09:27 Dose: 166.67 mls/hr Dexmedetomidine HCl (Precedex) 400 mcg in 100 mls @ 0 mls/hr IVCONT .Q0M [facility]; Protocol Last Admin: 10/23/23 09:11 Dose: 1.5 mcg/kg/hr, 75.23 mls/hr Metronidazole (Flagyl) 500 mg in 100 mls @ 100 mls/hr IV Q6H [facility] Last Infusion: 10/23/23 07:19 Dose: Infused Insulin Human Lispro (Insulin Lispro 100 Unit/Ml 3 Ml Vial) 0 unit SUBCUT QIDACHS [facility]; Protocol Last Admin: 10/23/23 08:02 Dose: 4 unit Lamotrigine (Lamotrigine 25 Mg Tablet) 25 mg PO BEDTIME [facility] Last Admin: 10/22/23 23:31 Dose: Not Given Lorazepam (Lorazepam 1 Mg Tablet) 1 mg PO BEDTIME [facility] Last Admin: 10/22/23 23:32 Dose: Not Given Magnesium Hydroxide (Milk Of Magnesia 30 Ml Oral.Susp) 30 ml PO DAILY PRN PRN Reason: Constipation Methylprednisolone Sodium Succinate (Methylprednisolone Sod Succ 40 Mg/Ml Vial) 40 mg IVPUSH Q8H [facility] Last Admin: 10/23/23 07:47 Dose: 40 mg Midazolam HCl (Midazolam Hcl/Pf 2 Mg/2 Ml Vial) 2 mg IVPUSH Q15M PRN PRN Reason: anxiety/restlessness Olanzapine (Olanzapine Odt 10 Mg Tab.Rapdis) 10 mg TRANSLINGU BID [facility] Last Admin: 10/22/23 23:32 Dose: Not Given Olanzapine (Olanzapine 5 Mg Tablet) 5 mg PO Q4H PRN PRN Reason: brendon, psychosis, sev agitatio Last Admin: 10/22/23 16:52 Dose: 5 mg Pharmacy Consult (Consult Rx Vancomycin Dosing) 1 each MISCELLANE DAILY PRN PRN Reason: Consult order Sodium Chloride (0.9 % Sodium Chloride Flush 3 Ml Syringe) 3 ml IVFLUSH QSHIFT [facility] Last Admin: 10/23/23 08:03 Dose: 3 ml Sodium Chloride (0.9 % Sodium Chloride Flush 10 Ml Syringe) 5 ml IVFLUSH TID [facility] Last Admin: 10/23/23 08:03 Dose: 5 ml Trazodone HCl (Trazodone Hcl 50 Mg Tablet) 50 mg PO BEDTIME MRX1 PRN PRN Reason: Insomnia Last Admin: 10/21/23 21:07 Dose: 50 mg Physical Exam Vital Signs: Vital Signs: Last Vital Signs Temp 102.4 F H 10/23/23 10:00 Pulse 74 10/23/23 10:00 Resp 25 H 10/23/23 10:00 BP 129/76 10/23/23 10:00 Pulse Ox 90 L 10/23/23 10:00 O2 Del Method BiPAP 10/23/23 10:00 O2 Flow Rate 40 10/23/23 05:00 FiO2 60 10/23/23 10:00 Const: Other: On BiPAP machine, with some increased respiratory rate Resp: Other: Some shortness of breath, on BiPAP machine Cardio: Rate: regular rate GI: Palpation (GI): Soft to palpation and not firm Extrem: Other: Cellulitic changes on a segment of the right leg, circumferential, with no fluctuance, no open wound, no discharge, no weeping On the dorsum of the right foot is some area that appears to be edematous, with a little bit of redness in the center, no obvious fluctuance Results Labs 10/23/23 04:15 10/23/23 04:14 Labs: Abnormal lab results 10/22/23 10/22/23 10/22/23 Range/Units 16:03 16:16 18:13 RBC 3.24 L (4.20-5.50) X10*6/uL Hgb 9.1 L (12.0-16.0) g/dl Hct 27.8 L (37.0-47.0) % Plt Count 109 L (160-400) X10*3/uL Immature Gran % (Auto) (0.0-0.4) % Neut % (Auto) (45-73) % Lymph % (Auto) (20-40) % Lymph # (Auto) (1.2-4.9) X10*3/uL Abs Immat Gran (auto) (0.00-0.03) X10*3/uL ABG pH at Pt Temp 7.47 H (7.35-7.45) ABG pO2 at Pt Temp 65 L (83-108) mmHg ABG HCO3 30 H (22-26) mmol/L VBG HCO3 (22-26) mmol/L BUN 18 H (9-16) mg/dL POC Glucose 132 H (60-115) mg/dL Random Glucose 136 H (60-115) mg/dL Calcium 8.2 L (8.4-10.2) mg/dL Albumin (3.5-5.0) g/dL Ur Leukocyte Esterase (Negative) Urine RBC (0-2) /HPF Random Vancomycin 10.9 L (15-20) mcg/mL 10/22/23 10/22/23 10/22/23 Range/Units 20:35 20:40 22:55 RBC (4.20-5.50) X10*6/uL Hgb (12.0-16.0) g/dl Hct (37.0-47.0) % Plt Count (160-400) X10*3/uL Immature Gran % (Auto) (0.0-0.4) % Neut % (Auto) (45-73) % Lymph % (Auto) (20-40) % Lymph # (Auto) (1.2-4.9) X10*3/uL Abs Immat Gran (auto) (0.00-0.03) X10*3/uL ABG pH at Pt Temp (7.35-7.45) ABG pO2 at Pt Temp (83-108) mmHg ABG HCO3 (22-26) mmol/L VBG HCO3 27 H (22-26) mmol/L BUN (9-16) mg/dL POC Glucose 179 H (60-115) mg/dL Random Glucose (60-115) mg/dL Calcium (8.4-10.2) mg/dL Albumin (3.5-5.0) g/dL Ur Leukocyte Esterase Small (1+) H (Negative) Urine RBC 3-5 H (0-2) /HPF Random Vancomycin (15-20) mcg/mL 10/23/23 10/23/23 10/23/23 Range/Units 04:14 04:15 04:26 RBC 3.58 L (4.20-5.50) X10*6/uL Hgb 9.9 L (12.0-16.0) g/dl Hct 31.1 L (37.0-47.0) % Plt Count 112 L (160-400) X10*3/uL Immature Gran % (Auto) 0.9 H (0.0-0.4) % Neut % (Auto) 83.8 H (45-73) % Lymph % (Auto) 10.1 L (20-40) % Lymph # (Auto) 0.6 L (1.2-4.9) X10*3/uL Abs Immat Gran (auto) 0.05 H (0.00-0.03) X10*3/uL ABG pH at Pt Temp (7.35-7.45) ABG pO2 at Pt Temp (83-108) mmHg ABG HCO3 (22-26) mmol/L VBG HCO3 29 H (22-26) mmol/L BUN 21 H (9-16) mg/dL POC Glucose (60-115) mg/dL Random Glucose 207 H (60-115) mg/dL Calcium (8.4-10.2) mg/dL Albumin 3.2 L (3.5-5.0) g/dL Ur Leukocyte Esterase (Negative) Urine RBC (0-2) /HPF Random Vancomycin (15-20) mcg/mL 10/23/23 Range/Units 07:34 RBC (4.20-5.50) X10*6/uL Hgb (12.0-16.0) g/dl Hct (37.0-47.0) % Plt Count (160-400) X10*3/uL Immature Gran % (Auto) (0.0-0.4) % Neut % (Auto) (45-73) % Lymph % (Auto) (20-40) % Lymph # (Auto) (1.2-4.9) X10*3/uL Abs Immat Gran (auto) (0.00-0.03) X10*3/uL ABG pH at Pt Temp (7.35-7.45) ABG pO2 at Pt Temp (83-108) mmHg ABG HCO3 (22-26) mmol/L VBG HCO3 (22-26) mmol/L BUN (9-16) mg/dL POC Glucose 213 H (60-115) mg/dL Random Glucose (60-115) mg/dL Calcium (8.4-10.2) mg/dL Albumin (3.5-5.0) g/dL Ur Leukocyte Esterase (Negative) Urine RBC (0-2) /HPF Random Vancomycin (15-20) mcg/mL Short CBC 10/22/23 10/23/23 Range/Units 16:03 04:15 WBC 8.4 5.6 (4.8-10.8) X10*3/uL Hgb 9.1 L 9.9 L (12.0-16.0) g/dl Hct 27.8 L 31.1 L (37.0-47.0) % Plt Count 109 L 112 L (160-400) X10*3/uL BMP 02/17/24 02/18/24 02/18/24 16:03 04:14 04:15 Sodium 140 141 Potassium 3.6 4.4 D Chloride 104 105 Carbon Dioxide 25 27 BUN 18 H 21 H Creatinine 0.74 0.87 Cancelled Calcium 8.2 L 8.6 Liver Function 10/23/23 Range/Units 04:14 Total Bilirubin 0.7 (0.0-1.0) mg/dL AST 23 (5-31) U/L ALT 24 (0-31) U/L Alkaline Phosphatase 63 (39-117) U/L Albumin 3.2 L (3.5-5.0) g/dL Urine 10/22/23 Range/Units 20:35 Urine Color Yellow Urine Appearance Clear Urine pH 5.5 (5.0-9.0) Ur Specific [place] 1.020 (1.005-1.025) Urine Protein Negative (Neg-Trace) mg/dL Urine Glucose (UA) Negative (Negative) mg/dL All other labs normal. Assessment and Plan (1) Foot swelling: Status: Acute Plan She has this area of swelling on the dorsum of the right foot. There is some redness in the middle. In view of her fever, septic type picture, the emergency manager was concerned that there may be an underlying abscess in the area I therefore proceeded to do exploration. She was already in Precedex so she was able to tolerate an incision. I prepped and draped the area. With a sepsis and antisepsis, I proceeded to make a short incision about half a cm skin and extended this with fine scissors into the deep subcutaneous area. I explored the area with the scissors. There was no pus or any fluid collection underneath. I left the wound open. I applied dry dressings and wrapped the foot with Ivana roll She tolerated procedure well It does not appear therefore that there is any deep layer of this area of the right foot. Other sources of her infection may need to be investigated. I have discussed the above with the emergency manager. Procedures Date of Service Date of Service: 10/23/23
[2023-10-23 11:32] LABS: Glucose, Whole Blood 198 mg/dL (60-115)
[2023-10-23] MEDS: Linezolid/D5W 600 MG/300 ML PIGGYBACK 300 MG IV (12:45)
[2023-10-23] MEDS: Valproic Acid (as Sodium Salt) 500 MG in Dextrose 5 % 50 ML 55 MG IV ×2 (13:17→17:48)
[2023-10-23 14:43] LABS: VBG Base Excess 3.9 mmol/L; VBG HCO3 27 mmol/L (22-26); VBG pCO2 36 mmHg; VBG pH 7.48 (7.32-7.43); VBG pO2 37 mmHg
[2023-10-23 16:34] LABS: Glucose, Whole Blood 202 mg/dL (60-115)
--- NOTE | 2023-10-23 17:37 | PM.CCPN ---
Subjective Subjective Date of Service: 10/23/23 Interval History: 33-year-old type 2 diabetic and hypertensive with schizoaffective disorder having been on Psychiatry for the last 6 weeks presents with right lower extremity cellulitis and being treated with Zosyn and vancomycin she is also morbidly obese and presented with status epilepticus and acute respiratory failure last night did very well overnight on BiPAP and this morning with much improved work of breathing much diminished diaphragmatic effort and today we were able to give her a break and place her on nasal high-flow to allow her a diet as she gets highly agitated without the ability to eat and drink but currently remains on dexmedetomidine for some behavioral control along with p.r.n. midazolam Critical Care Time (minutes): 40 Physical Exam Vital Signs: Vital Signs: Last Vital Signs Temp 102.6 F H 10/23/23 17:00 Pulse 84 10/23/23 17:00 Resp 18 10/23/23 17:00 BP 141/77 H 10/23/23 17:00 Pulse Ox 90 L 10/23/23 17:00 O2 Del Method High Flow Nasal C annula 10/23/23 17:00 O2 Flow Rate 40 10/23/23 17:00 FiO2 80 10/23/23 17:00 Currently 140/77 mean blood pressure 102 normal sinus rhythm with a rate of 82 much improved over yesterday's tachycardia oxygen saturation 91% respiratory rate down to 24 and tolerating nasal high-flow with current pH 7.48 pCO2 36 and venous oxygen saturation 62% She is on dexmedetomidine and p.r.n. midazolam but still demonstrates orientation to person and place Nonfocal neurologically Bedside echo still with hyperdynamic LV and RV function Abdomen soft with no organomegaly nontender and tolerating feedings Today she had the dorsum of the foot wound explored found to be superficial no deep penetration of the wound this was by surgery and the cellulitis slowly resolving but peak temperature still at 102.7 Objective Data Labs 10/23/23 04:15 10/23/23 04:14 Labs: Laboratory Results - last 24 hr 10/22/23 10/22/23 10/22/23 18:13 20:35 20:40 WBC RBC Hgb Hct MCV MCH MCHC RDW Plt Count MPV Immature Gran % (Auto) Neut % (Auto) Lymph % (Auto) [place] % (Auto) Eos % (Auto) Baso % (Auto) Lymph # (Auto) [place] # (Auto) Eos # (Auto) Baso # (Auto) Abs Immat Gran (auto) Absolute Neuts (auto) Absolute Nucleated RBC Nucleated RBC % (auto) O2 Saturation 93.0 ABG pH at Pt Temp 7.47 H ABG pCO2 at Pt Temp 41 ABG pO2 at Pt Temp 65 L ABG HCO3 30 H ABG Base Excess (Actual) 6.5 VBG pH VBG pCO2 VBG pO2 VBG HCO3 VBG O2 Saturation VBG Base Excess Sodium Potassium Chloride Carbon Dioxide Anion Gap BUN Creatinine Estim Creat Clear Calc Estimated GFR POC Glucose 179 H Random Glucose Calcium Phosphorus Magnesium Total Bilirubin AST ALT Alkaline Phosphatase Ammonia Total Protein Albumin Urine Color Yellow Urine Appearance Clear Urine pH 5.5 Ur Specific [place] 1.020 Urine Protein Negative Urine Glucose (UA) Negative Urine Ketones Negative Urine Blood Negative Urine Nitrite Negative Ur Leukocyte Esterase Small (1+) H Urine RBC 3-5 H Urine WBC 0-5 Ur Squamous Epith Cells 3-5 Urine Bacteria None Seen Hyaline Casts 0-2 10/22/23 10/23/23 10/23/23 22:55 04:14 04:15 WBC 5.6 RBC 3.58 L Hgb 9.9 L Hct 31.1 L MCV 86.9 MCH 27.7 MCHC 31.8 RDW 13.9 Plt Count 112 L MPV 10.7 Immature Gran % (Auto) 0.9 H Neut % (Auto) 83.8 H Lymph % (Auto) 10.1 L [place] % (Auto) 5.2 Eos % (Auto) 0.0 Baso % (Auto) 0.0 Lymph # (Auto) 0.6 L [place] # (Auto) 0.3 Eos # (Auto) 0.0 Baso # (Auto) 0.0 Abs Immat Gran (auto) 0.05 H Absolute Neuts (auto) 4.7 Absolute Nucleated RBC 0.000 Nucleated RBC % (auto) 0.0 O2 Saturation ABG pH at Pt Temp ABG pCO2 at Pt Temp ABG pO2 at Pt Temp ABG HCO3 ABG Base Excess (Actual) VBG pH 7.41 VBG pCO2 43 VBG pO2 43 VBG HCO3 27 H VBG O2 Saturation 72.0 VBG Base Excess 3.0 Sodium 141 Potassium 4.4 D Chloride 105 Carbon Dioxide 27 Anion Gap 13 BUN 21 H Creatinine 0.87 Cancelled Estim Creat Clear Calc 177.8 Cancelled Estimated GFR > 60 Cancelled POC Glucose Random Glucose 207 H Calcium 8.6 Phosphorus 3.4 Magnesium 2.0 Total Bilirubin 0.7 AST 23 ALT 24 Alkaline Phosphatase 63 Ammonia 44 Total Protein 6.8 Albumin 3.2 L Urine Color Urine Appearance Urine pH Ur Specific [place] Urine Protein Urine Glucose (UA) Urine Ketones Urine Blood Urine Nitrite Ur Leukocyte Esterase Urine RBC Urine WBC Ur Squamous Epith Cells Urine Bacteria Hyaline Casts 10/23/23 10/23/23 10/23/23 04:26 07:34 11:23 WBC RBC Hgb Hct MCV MCH MCHC RDW Plt Count MPV Immature Gran % (Auto) Neut % (Auto) Lymph % (Auto) [place] % (Auto) Eos % (Auto) Baso % (Auto) Lymph # (Auto) [place] # (Auto) Eos # (Auto) Baso # (Auto) Abs Immat Gran (auto) Absolute Neuts (auto) Absolute Nucleated RBC Nucleated RBC % (auto) O2 Saturation ABG pH at Pt Temp ABG pCO2 at Pt Temp ABG pO2 at Pt Temp ABG HCO3 ABG Base Excess (Actual) VBG pH 7.42 VBG pCO2 44 VBG pO2 67 VBG HCO3 29 H VBG O2 Saturation 92.0 VBG Base Excess 4.4 Sodium Potassium Chloride Carbon Dioxide Anion Gap BUN Creatinine Estim Creat Clear Calc Estimated GFR POC Glucose 213 H 198 H Random Glucose Calcium Phosphorus Magnesium Total Bilirubin AST ALT Alkaline Phosphatase Ammonia Total Protein Albumin Urine Color Urine Appearance Urine pH Ur Specific [place] Urine Protein Urine Glucose (UA) Urine Ketones Urine Blood Urine Nitrite Ur Leukocyte Esterase Urine RBC Urine WBC Ur Squamous Epith Cells Urine Bacteria Hyaline Casts 10/23/23 10/23/23 14:35 16:19 WBC RBC Hgb Hct MCV MCH MCHC RDW Plt Count MPV Immature Gran % (Auto) Neut % (Auto) Lymph % (Auto) [place] % (Auto) Eos % (Auto) Baso % (Auto) Lymph # (Auto) [place] # (Auto) Eos # (Auto) Baso # (Auto) Abs Immat Gran (auto) Absolute Neuts (auto) Absolute Nucleated RBC Nucleated RBC % (auto) O2 Saturation ABG pH at Pt Temp ABG pCO2 at Pt Temp ABG pO2 at Pt Temp ABG HCO3 ABG Base Excess (Actual) VBG pH 7.48 H VBG pCO2 36 VBG pO2 37 VBG HCO3 27 H VBG O2 Saturation 62.0 VBG Base Excess 3.9 Sodium Potassium Chloride Carbon Dioxide Anion Gap BUN Creatinine Estim Creat Clear Calc Estimated GFR POC Glucose 202 H Random Glucose Calcium Phosphorus Magnesium Total Bilirubin AST ALT Alkaline Phosphatase Ammonia Total Protein Albumin Urine Color Urine Appearance Urine pH Ur Specific [place] Urine Protein Urine Glucose (UA) Urine Ketones Urine Blood Urine Nitrite Ur Leukocyte Esterase Urine RBC Urine WBC Ur Squamous Epith Cells Urine Bacteria Hyaline Casts Progress Note: A&P Assessment and plan (1) Asthma with status asthmaticus in adult: Status: Acute (2) Foot swelling: Status: Acute (3) Cellulitis of right lower leg: Status: Acute (4) Hidradenitis suppurativa: Status: Acute (5) Bipolar disorder with psychotic features: Status: Acute (6) Psychosis: Status: Acute (7) Schizoaffective disorder, bipolar type: Status: Acute (8) Hypertension, essential: Status: Acute (9) Hypokalemia: Status: Acute (10) Seasonal asthma: Status: Acute (11) Lipid disorder: Status: Acute (12) Uncontrolled type 2 diabetes mellitus with hyperglycemia: Status: Acute (13) Morbid obesity: Status: Acute Plan So status asthmaticus is resolving nicely and if she continues to remain compensated on the nasal high-flow will allow dinner and I think for tonight back on BiPAP for as long as she will allow and she might be a potential to downgrade to a telemetry floor but I changed the antibiotics at this point because with continued clinical resolution of cellulitis and no other source of infection other than this possible aspiration pneumonitis involving the right lower lobe for which she was covered anyway I question the possibility of drug fever so I stopped vancomycin and Zosyn and switch to meropenem and linezolid Quality Stroke Does the patient have a stroke diagnosis?: No VTE Prior VTE?: No VTE Risk Level:: Medical - moderate - high VTE Device Contraindication: Treatment Not Indicated VTE Drug Contraindication: N/A - Med Ordered
[2023-10-23] MEDS: dexmedeTOMIDidine HCL/NS 400 MCG/100 ML INFUS..BTL 65.2 MCG IVCONT ×2 (18:09→19:26)
[2023-10-23 20:48] LABS: Glucose, Whole Blood 196 mg/dL (60-115)
[2023-10-23 22:52] LABS: Venous Blood Gas Refer to POC result
--- NOTE | 2023-10-23 23:31 | PM.IDPN ---
Subjective Subjective Date of Service: 10/23/23 Critical Care Time (minutes): 15 Comment: She is in ICU and receiving oxygen,but talking and looking comfortable Objective Data Labs 10/23/23 04:15 10/23/23 04:14 Labs: Laboratory Results - last 24 hr 10/23/23 10/23/23 10/23/23 04:14 04:15 04:26 WBC 5.6 RBC 3.58 L Hgb 9.9 L Hct 31.1 L MCV 86.9 MCH 27.7 MCHC 31.8 RDW 13.9 Plt Count 112 L MPV 10.7 Immature Gran % (Auto) 0.9 H Neut % (Auto) 83.8 H Lymph % (Auto) 10.1 L [place] % (Auto) 5.2 Eos % (Auto) 0.0 Baso % (Auto) 0.0 Lymph # (Auto) 0.6 L [place] # (Auto) 0.3 Eos # (Auto) 0.0 Baso # (Auto) 0.0 Abs Immat Gran (auto) 0.05 H Absolute Neuts (auto) 4.7 Absolute Nucleated RBC 0.000 Nucleated RBC % (auto) 0.0 VBG pH 7.42 VBG pCO2 44 VBG pO2 67 VBG HCO3 29 H VBG O2 Saturation 92.0 VBG Base Excess 4.4 Sodium 141 Potassium 4.4 D Chloride 105 Carbon Dioxide 27 Anion Gap 13 BUN 21 H Creatinine 0.87 Cancelled Estim Creat Clear Calc 177.8 Cancelled Estimated GFR > 60 Cancelled POC Glucose Random Glucose 207 H Calcium 8.6 Phosphorus 3.4 Magnesium 2.0 Total Bilirubin 0.7 AST 23 ALT 24 Alkaline Phosphatase 63 Ammonia 44 Total Protein 6.8 Albumin 3.2 L 10/23/23 10/23/23 10/23/23 07:34 11:23 14:35 WBC RBC Hgb Hct MCV MCH MCHC RDW Plt Count MPV Immature Gran % (Auto) Neut % (Auto) Lymph % (Auto) [place] % (Auto) Eos % (Auto) Baso % (Auto) Lymph # (Auto) [place] # (Auto) Eos # (Auto) Baso # (Auto) Abs Immat Gran (auto) Absolute Neuts (auto) Absolute Nucleated RBC Nucleated RBC % (auto) VBG pH 7.48 H VBG pCO2 36 VBG pO2 37 VBG HCO3 27 H VBG O2 Saturation 62.0 VBG Base Excess 3.9 Sodium Potassium Chloride Carbon Dioxide Anion Gap BUN Creatinine Estim Creat Clear Calc Estimated GFR POC Glucose 213 H 198 H Random Glucose Calcium Phosphorus Magnesium Total Bilirubin AST ALT Alkaline Phosphatase Ammonia Total Protein Albumin 10/23/23 10/23/23 16:19 20:41 WBC RBC Hgb Hct MCV MCH MCHC RDW Plt Count MPV Immature Gran % (Auto) Neut % (Auto) Lymph % (Auto) [place] % (Auto) Eos % (Auto) Baso % (Auto) Lymph # (Auto) [place] # (Auto) Eos # (Auto) Baso # (Auto) Abs Immat Gran (auto) Absolute Neuts (auto) Absolute Nucleated RBC Nucleated RBC % (auto) VBG pH VBG pCO2 VBG pO2 VBG HCO3 VBG O2 Saturation VBG Base Excess Sodium Potassium Chloride Carbon Dioxide Anion Gap BUN Creatinine Estim Creat Clear Calc Estimated GFR POC Glucose 202 H 196 H Random Glucose Calcium Phosphorus Magnesium Total Bilirubin AST ALT Alkaline Phosphatase Ammonia Total Protein Albumin Physical Exam Vital Signs: Vital Signs: Last Vital Signs Temp 103.5 F H 10/23/23 23:00 Pulse 81 10/23/23 23:00 Resp 27 H 10/23/23 23:00 BP 153/90 H 10/23/23 23:00 Pulse Ox 92 10/23/23 23:00 O2 Del Method High Flow Nasal C annula 10/23/23 22:00 O2 Flow Rate 40 10/23/23 23:00 FiO2 80 10/23/23 23:00 Const: General: cooperative HEENT: Head: Yes normal to inspection Mouth: Normal oral and palatal mucosa present Resp: Effort & Inspection: normal respiratory effort Cardio: Rate: regular rate Rhythm: regular rhythm GI: Inspection: Yes normal to inspection Extrem: Other: improving erythema legs General: Yes normal to inspection Assessment and Plan Assessment and plan (1) Fever of unknown origin: Problem details: She has new fever to 103 Her leg looks better today She has no lobar pneumonia She has no bacteremia or evidence of other infections. There is concern linezolid may interact with SSRIs e.g Trazodone and cause serotonin syndrome. There is no PE seen and no evidence bacterial infection seen. Status: Acute Assessment and Plan: Would hold antibiotics if no bacteremia seen tomorrow as fever may be due to drug interactions Check RVP panel and procalcitonin Time Spent With Patient Time: Total time managing care of this patient today ____ minutes.
[2023-10-24] VITALS (34 sets, daily range): BP systolic 119–158; BP diastolic 58–99; PULSE 67–88; RESP 20–34; TEMP 38.4–39.6; O2SAT 89–97; BMI 31.2
[2023-10-24] MEDS: dexmedeTOMIDidine HCL/NS 400 MCG/100 ML INFUS..BTL 75.23 MCG IVCONT ×2 (00:45→02:05)
[2023-10-24] MEDS: methylPREDNISolone Sod Succ 40 MG/ML VIAL IVPUSH ×3 (02:03→16:37)
[2023-10-24] MEDS: Midazolam HCl/PF 2 MG/2 ML VIAL IVPUSH ×3 (02:05→05:36)
[2023-10-24] MEDS: Linezolid/D5W 600 MG/300 ML PIGGYBACK 300 MG IV ×2 (02:08→12:21)
[2023-10-24] MEDS: Valproic Acid (as Sodium Salt) 500 MG in Dextrose 5 % 50 ML 55 MG IV ×2 (02:08→06:19)
[2023-10-24] MEDS: dexmedeTOMIDidine HCL/NS 400 MCG/100 ML INFUS..BTL 50.15 MCG IVCONT ×4 (03:57→12:39)
[2023-10-24] MEDS: Enoxaparin Sodium 40 MG/0.4 ML SYRINGE SUBCUT ×2 (03:57→15:16)
[2023-10-24 04:51] LABS: VBG Base Excess 8.4 mmol/L; VBG HCO3 32 mmol/L (22-26); VBG pCO2 40 mmHg; VBG pO2 42 mmHg
[2023-10-24 04:55] LABS: Venous Blood Gas Refer to POC result
[2023-10-24] MEDS: Acetaminophen Supp 650 MG SUPP.RECT PR (05:10)
[2023-10-24 05:43] LABS: MANUAL DIFF FLAG NO
[2023-10-24 05:47] LABS: Basophils Percent Auto 0.4 % (0-2); Hematocrit 32.2 % (37.0-47.0); Hemoglobin 10.1 g/dl (12.0-16.0); Imm Gran Abs Auto 0.15 X10*3/uL (0.00-0.03); Imm Gran Pct Auto 2.2 % (0.0-0.4); Lymphocytes Absolute Auto 0.9 X10*3/uL (1.2-4.9); Lymphocytes Percent Auto 13.3 % (20-40); Mean Corpuscular HGB Conc 31.4 g/dl (31.0-35.0); Mean Corpuscular Hemoglobin 27.7 pg (27.0-33.0); Mean Corpuscular Volume 88.5 fL (80.0-98.0); Mean Platelet Volume 10.9 fL (9.4-12.3); Monocytes Absolute Auto 0.7 X10*3/uL (0.1-1.2); Monocytes Percent Auto 10.3 % (2-11); NRBC Pct Auto 0.3 /100WBC (0.0-0.2); Neutrophils Percent Auto 73.8 % (45-73); Platelet Count 146 X10*3/uL (160-400); Red Blood Count 3.64 X10*6/uL (4.20-5.50); Red Cell Distribution Width 13.8 % (11.0-16.0); White Blood Count 6.8 X10*3/uL (4.8-10.8)
[2023-10-24 06:08] LABS: Albumin Level 3.2 g/dL (3.5-5.0); Anion Gap 13 (12-20); Blood Urea Nitrogen 25 mg/dL (9-16); Calcium 8.6 mg/dL (8.4-10.2); Carbon Dioxide 28 mmol/L (22-29); Chloride 106 mmol/L (96-108); Estimated Glomerular Filt Rate > 60; Glucose Random 223 mg/dL (60-115); Magnesium 2.3 mg/dL (1.6-2.6); Phosphorus 2.8 mg/dL (2.7-4.5); Potassium 4.6 mmol/L (3.3-5.1); Sodium 142 mmol/L (135-145)
[2023-10-24] MEDS: dexmedeTOMIDidine HCL/NS 400 MCG/100 ML INFUS..BTL 40.12 MCG IVCONT (06:21)
[2023-10-24 06:23] LABS: Procalcitonin 2.65 ng/mL
[2023-10-24 07:29] LABS: Glucose, Whole Blood 222 mg/dL (60-115)
[2023-10-24] MEDS: atenoloL 25 MG TABLET PO (07:30)
[2023-10-24] MEDS: OLANZapine ODT 10 MG TAB.RAPDIS TRANSLINGU ×2 (07:30→21:24)
[2023-10-24] MEDS: 0.9 % Sodium Chloride Flush 10 ML SYRINGE 5 ML IVFLUSH ×3 (07:31→21:26)
[2023-10-24] MEDS: 0.9 % Sodium Chloride Flush 3 ML SYRINGE IVFLUSH ×2 (07:31→15:22)
[2023-10-24] MEDS: Albuterol/Iprat 2.5/0.5MG 3 ML AMPUL.NEB INHALE ×4 (07:47→21:11)
[2023-10-24] MEDS: Insulin Lispro 100 UNIT/ML 3 ML VIAL SUBCUT ×4 (07:54→21:25)
[2023-10-24 07:55] LABS: INTERNATIONAL NORM RATIO 1.3 (0.9-1.1); Prothrombin Time 15.7 SEC (11.1-13.3)
[2023-10-24 08:00] LABS: Partial Thromboplastin Time 23.3 SEC (26.0-36.8)
--- NOTE | 2023-10-24 08:08 | PM.CCPN ---
Subjective Subjective Date of Service: 10/24/23 Critical Care Time (minutes): 90 Physical Exam Vital Signs: Vital Signs: Last Vital Signs Temp 103.3 F H 10/24/23 07:00 Pulse 75 10/24/23 07:49 Resp 28 H 10/24/23 07:50 BP 145/83 H 10/24/23 07:00 Pulse Ox 93 10/24/23 07:00 O2 Del Method High Flow Nasal C annula 10/24/23 07:00 O2 Flow Rate 45 10/24/23 07:00 FiO2 65 10/24/23 07:00 BMI result Body Mass Index 31.2 Const: Other: morbid obesity General: cooperative, healthy appearing, comfortable and no acute distress HEENT: Head: Yes normal to inspection, Yes normocephalic and Yes atraumatic Eyes: General: appearance normal, both eyes and all related structures Neck: Neck: Yes normal visual inspection, Yes full ROM, Yes no meningeal signs and Yes supple Chest: Chest palpation & inspection: normal inspection of the chest Resp: Other: diminished breath sounds throughout Cardio: Rate: regular rate Rhythm: regular rhythm GI: Inspection: Yes normal to inspection, No Abdominal wall edema and No distended Palpation (GI): Soft to palpation, not firm, nontender, no guarding and not rigid Skin: Other: appreciable R lower extremity erythema Neuro: General: tone normal, moves all extremities, no meningeal signs and no focal motor deficits Extrem: General: Yes full ROM and Yes capillary refill normal Psych: Other: endorses auditory hallucinations; intermittent agitation, though redirectable Objective Data Labs 10/24/23 04:41 10/24/23 04:41 Labs: Laboratory Results - last 24 hr 10/23/23 10/23/23 10/23/23 11:23 14:35 16:19 WBC RBC Hgb Hct MCV MCH MCHC RDW Plt Count MPV Immature Gran % (Auto) Neut % (Auto) Lymph % (Auto) [place] % (Auto) Eos % (Auto) Baso % (Auto) Lymph # (Auto) [place] # (Auto) Eos # (Auto) Baso # (Auto) Abs Immat Gran (auto) Absolute Neuts (auto) Absolute Nucleated RBC Nucleated RBC % (auto) PT INR APTT VBG pH 7.48 H VBG pCO2 36 VBG pO2 37 VBG HCO3 27 H VBG O2 Saturation 62.0 VBG Base Excess 3.9 Sodium Potassium Chloride Carbon Dioxide Anion Gap BUN Creatinine Estim Creat Clear Calc Estimated GFR POC Glucose 198 H 202 H Random Glucose Calcium Phosphorus Magnesium Albumin Procalcitonin 10/23/23 10/24/23 10/24/23 20:41 04:41 04:43 WBC 6.8 RBC 3.64 L Hgb 10.1 L Hct 32.2 L MCV 88.5 MCH 27.7 MCHC 31.4 RDW 13.8 Plt Count 146 L D MPV 10.9 Immature Gran % (Auto) 2.2 H Neut % (Auto) 73.8 H Lymph % (Auto) 13.3 L [place] % (Auto) 10.3 Eos % (Auto) 0.0 Baso % (Auto) 0.4 Lymph # (Auto) 0.9 L [place] # (Auto) 0.7 Eos # (Auto) 0.0 Baso # (Auto) 0.0 Abs Immat Gran (auto) 0.15 H Absolute Neuts (auto) 5.0 Absolute Nucleated RBC 0.020 H Nucleated RBC % (auto) 0.3 H PT INR APTT VBG pH 7.50 H VBG pCO2 40 VBG pO2 42 VBG HCO3 32 H VBG O2 Saturation 70.0 VBG Base Excess 8.4 Sodium 142 Potassium 4.6 Chloride 106 Carbon Dioxide 28 Anion Gap 13 BUN 25 H Creatinine 0.91 Estim Creat Clear Calc 170.0 Estimated GFR > 60 POC Glucose 196 H Random Glucose 223 H Calcium 8.6 Phosphorus 2.8 Magnesium 2.3 Albumin 3.2 L Procalcitonin 2.65 10/24/23 10/24/23 07:25 07:43 WBC RBC Hgb Hct MCV MCH MCHC RDW Plt Count MPV Immature Gran % (Auto) Neut % (Auto) Lymph % (Auto) [place] % (Auto) Eos % (Auto) Baso % (Auto) Lymph # (Auto) [place] # (Auto) Eos # (Auto) Baso # (Auto) Abs Immat Gran (auto) Absolute Neuts (auto) Absolute Nucleated RBC Nucleated RBC % (auto) PT 15.7 H INR 1.3 H APTT 23.3 L VBG pH VBG pCO2 VBG pO2 VBG HCO3 VBG O2 Saturation VBG Base Excess Sodium Potassium Chloride Carbon Dioxide Anion Gap BUN Creatinine Estim Creat Clear Calc Estimated GFR POC Glucose 222 H Random Glucose Calcium Phosphorus Magnesium Albumin Procalcitonin Progress Note: A&P Assessment and plan (1) Cellulitis of right lower leg: Status: Acute (2) Schizoaffective disorder, bipolar type: Status: Acute (3) Hypertension, essential: Status: Acute (4) Uncontrolled type 2 diabetes mellitus with hyperglycemia: Status: Acute (5) Morbid obesity: Status: Acute (6) Acute respiratory failure: Status: Acute Plan Patient is a 33 Y F with obesity, hypertension, non-insulin dependent diabetes mellitus, asthma, factor V deficiency, and psychiatric comorbidities initially admitted psychiatric floor 09/07; hospital course c/b sepsis likely d/t lower extremity cellulitis; on 10/22, developed acute respiratory failure, admitted ICU, placed on BiPAP N: no acute issues CV: no acute issues R: acute respiratory failure in the setting of sepsis; on HFNC, wean as tolerated GI: no acute issues : no acute issues H: thrombocytopenia, to continue to monitor ID: lower extremity cellulitis, c/b sepsis; to continue empiric antibiotics P: extensive; on dexmedetomidine gtt; appreciate psychiatry recommendations Quality Stroke Does the patient have a stroke diagnosis?: No VTE Prior VTE?: No VTE Risk Level:: Medical - moderate - high VTE Device Contraindication: Treatment Not Indicated VTE Drug Contraindication: N/A - Med Ordered
[2023-10-24 08:58] LABS: Erythrocyte Sedimentation Rate 81 MM/HR (0-20)
[2023-10-24] MEDS: Furosemide 20 MG/2 ML VIAL IVPUSH (09:21)
[2023-10-24] MEDS: Acetaminophen 1,000 MG/100 ML PIGGYBACK 400 MG IV ×2 (09:36→16:22)
[2023-10-24 11:35] LABS: Glucose, Whole Blood 207 mg/dL (60-115)
[2023-10-24] MEDS: dexmedeTOMIDidine HCL/NS 400 MCG/100 ML INFUS..BTL 60.18 MCG IVCONT (14:32)
[2023-10-24] MEDS: dexmedeTOMIDidine HCL/NS 400 MCG/100 ML INFUS..BTL 30.09 MCG IVCONT (16:28)
[2023-10-24 16:35] LABS: Glucose, Whole Blood 205 mg/dL (60-115)
[2023-10-24 18:18] LABS: VBG Base Excess 8.2 mmol/L; VBG HCO3 31 mmol/L (22-26); VBG pCO2 39 mmHg; VBG pH 7.51 (7.32-7.43); VBG pO2 91 mmHg
[2023-10-24 18:22] LABS: Venous Blood Gas Refer to POC result
[2023-10-24] MEDS: Furosemide 20 MG TABLET PO (18:40)
--- NOTE | 2023-10-24 18:54 | PC.NURSE ---
Pt transported in bariatric bed to CT 14:10 with RN, RT, gastroenterology technician and transport. Pt tolerated CT scan well on partial NRB 15L. Precedex gtt increased to 1.[address] tolerance per protocol and then titrated down to 0.6 per protocol. Pt returned to ICU 254 at 14:45. CT chest, abd and RLE results communicated from RN to MD. Lasix 20mg PO BID started at 18:00.
[2023-10-24] MEDS: dexmedeTOMIDidine HCL/NS 400 MCG/100 ML INFUS..BTL 20.06 MCG IVCONT (19:35)
[2023-10-24 20:46] LABS: Glucose, Whole Blood 226 mg/dL (60-115)
[2023-10-24] MEDS: Valproic Acid (as Sodium Salt) 1,000 MG in Dextrose 5 % 50 ML 55 MG IV (21:21)
[2023-10-24] MEDS: LORazepam 1 MG TABLET PO (21:24)
[2023-10-24] MEDS: lamoTRIgine 25 MG TABLET PO (21:24)
[2023-10-25] VITALS (31 sets, daily range): BP systolic 109–139; BP diastolic 44–68; PULSE 58–92; RESP 15–30; TEMP 37–38.3; O2SAT 88–97; BMI 59.4
[2023-10-25] MEDS: dexmedeTOMIDidine HCL/NS 400 MCG/100 ML INFUS..BTL 20.06 MCG IVCONT (00:08)
[2023-10-25] MEDS: methylPREDNISolone Sod Succ 40 MG/ML VIAL IVPUSH ×3 (00:09→16:45)
[2023-10-25] MEDS: Linezolid/D5W 600 MG/300 ML PIGGYBACK 300 MG IV (00:09)
[2023-10-25] MEDS: 0.9 % Sodium Chloride Flush 3 ML SYRINGE IVFLUSH ×4 (00:13→22:32)
[2023-10-25] MEDS: dexmedeTOMIDidine HCL/NS 400 MCG/100 ML INFUS..BTL 10.03 MCG IVCONT (04:30)
[2023-10-25] MEDS: Enoxaparin Sodium 40 MG/0.4 ML SYRINGE SUBCUT ×2 (04:31→16:46)
[2023-10-25 05:31] LABS: VBG HCO3 33 mmol/L (22-26); VBG pCO2 42 mmHg; VBG pH 7.49 (7.32-7.43); VBG pO2 51 mmHg
[2023-10-25 05:34] LABS: Venous Blood Gas Refer to POC result
[2023-10-25 05:35] LABS: MANUAL DIFF FLAG NO
[2023-10-25 05:37] LABS: Basophils Percent Auto 0.2 % (0-2); Hematocrit 30.5 % (37.0-47.0); Hemoglobin 9.6 g/dl (12.0-16.0); Imm Gran Abs Auto 0.19 X10*3/uL (0.00-0.03); Imm Gran Pct Auto 3.6 % (0.0-0.4); Lymphocytes Absolute Auto 1.1 X10*3/uL (1.2-4.9); Lymphocytes Percent Auto 21.1 % (20-40); Mean Corpuscular HGB Conc 31.5 g/dl (31.0-35.0); Mean Corpuscular Hemoglobin 27.7 pg (27.0-33.0); Mean Corpuscular Volume 87.9 fL (80.0-98.0); Mean Platelet Volume 10.3 fL (9.4-12.3); Monocytes Absolute Auto 0.4 X10*3/uL (0.1-1.2); Monocytes Percent Auto 7.5 % (2-11); NRBC Pct Auto 0.6 /100WBC (0.0-0.2); Neutrophils Absolute Auto 3.6 x10*3/uL (2.0-8.3); Neutrophils Percent Auto 67.6 % (45-73); Platelet Count 142 X10*3/uL (160-400); Red Blood Count 3.47 X10*6/uL (4.20-5.50); White Blood Count 5.3 X10*3/uL (4.8-10.8)
[2023-10-25 05:53] LABS: Anion Gap 13 (12-20); Blood Urea Nitrogen 25 mg/dL (9-16); Calcium 8.7 mg/dL (8.4-10.2); Carbon Dioxide 30 mmol/L (22-29); Chloride 106 mmol/L (96-108); Creatinine Clr Calc Pharmacy 136.9; Estimated Glomerular Filt Rate > 60; Glucose Random 227 mg/dL (60-115); Potassium 4.3 mmol/L (3.3-5.1); Sodium 145 mmol/L (135-145)
[2023-10-25 07:28] LABS: Glucose, Whole Blood 217 mg/dL (60-115)
[2023-10-25] MEDS: Albuterol/Iprat 2.5/0.5MG 3 ML AMPUL.NEB INHALE ×4 (07:56→19:56)
--- NOTE | 2023-10-25 08:01 | PM.CCPN ---
Subjective Subjective Date of Service: 10/25/23 Interval History: no significant overnight events Critical Care Time (minutes): 90 Physical Exam Vital Signs: Vital Signs: Last Vital Signs Temp 99.7 F 10/25/23 07:00 Pulse 61 10/25/23 07:00 Resp 20 10/25/23 07:00 BP 119/53 L 10/25/23 07:00 Pulse Ox 92 10/25/23 07:00 O2 Del Method High Flow Nasal C annula 10/25/23 07:00 O2 Flow Rate 50 10/25/23 07:00 FiO2 80 10/25/23 07:00 BMI result Body Mass Index 31.2 Const: Other: appreciably morbidly obese General: cooperative, no acute distress, alert, awake and Physically active Orientation/consciousness: patient oriented x3 HEENT: Head: Yes normal to inspection, Yes normocephalic and Yes atraumatic Eyes: General: appearance normal, both eyes and all related structures Neck: Neck: Yes normal visual inspection, Yes no meningeal signs and Yes supple Chest: Chest palpation & inspection: normal inspection of the chest Resp: Other: diminished breath sounds throughout; no appreciable overt rales, rhonchi, wheezing Cardio: Rate: bradycardic Rhythm: regular rhythm GI: Inspection: Yes normal to inspection, No Abdominal wall edema and No distended Palpation (GI): Soft to palpation, not firm, nontender, no guarding and not rigid Skin: Other: appreciable R LE erythema, edema; no appreciable fluctuance, induration Neuro: General: patient oriented x3, tone normal, moves all extremities, no meningeal signs and no focal motor deficits Extrem: General: Yes normal to inspection and Yes capillary refill normal Psych: Other: intermittent agitation, though easily redirectable Objective Data Labs 10/25/23 05:17 10/25/23 05:17 Labs: Laboratory Results - last 24 hr 10/24/23 10/24/23 10/24/23 04:43 07:43 11:27 WBC RBC Hgb Hct MCV MCH MCHC RDW Plt Count MPV Immature Gran % (Auto) Neut % (Auto) Lymph % (Auto) [place] % (Auto) Eos % (Auto) Baso % (Auto) Lymph # (Auto) [place] # (Auto) Eos # (Auto) Baso # (Auto) Abs Immat Gran (auto) Absolute Neuts (auto) Absolute Nucleated RBC Nucleated RBC % (auto) ESR 81 H PT 15.7 H INR 1.3 H APTT 23.3 L VBG pH VBG pCO2 VBG pO2 VBG HCO3 VBG O2 Saturation VBG Base Excess Sodium Potassium Chloride Carbon Dioxide Anion Gap BUN Creatinine Estim Creat Clear Calc Estimated GFR POC Glucose 207 H Random Glucose Calcium 10/24/23 10/24/23 10/24/23 16:32 18:12 20:42 WBC RBC Hgb Hct MCV MCH MCHC RDW Plt Count MPV Immature Gran % (Auto) Neut % (Auto) Lymph % (Auto) [place] % (Auto) Eos % (Auto) Baso % (Auto) Lymph # (Auto) [place] # (Auto) Eos # (Auto) Baso # (Auto) Abs Immat Gran (auto) Absolute Neuts (auto) Absolute Nucleated RBC Nucleated RBC % (auto) ESR PT INR APTT VBG pH 7.51 H VBG pCO2 39 VBG pO2 91 VBG HCO3 31 H VBG O2 Saturation 100.0 VBG Base Excess 8.2 Sodium Potassium Chloride Carbon Dioxide Anion Gap BUN Creatinine Estim Creat Clear Calc Estimated GFR POC Glucose 205 H 226 H Random Glucose Calcium 10/25/23 10/25/23 10/25/23 05:17 05:23 07:24 WBC 5.3 RBC 3.47 L Hgb 9.6 L Hct 30.5 L MCV 87.9 MCH 27.7 MCHC 31.5 RDW 14.0 Plt Count 142 L MPV 10.3 Immature Gran % (Auto) 3.6 H Neut % (Auto) 67.6 Lymph % (Auto) 21.1 [place] % (Auto) 7.5 Eos % (Auto) 0.0 Baso % (Auto) 0.2 Lymph # (Auto) 1.1 L [place] # (Auto) 0.4 Eos # (Auto) 0.0 Baso # (Auto) 0.0 Abs Immat Gran (auto) 0.19 H Absolute Neuts (auto) 3.6 Absolute Nucleated RBC 0.030 H Nucleated RBC % (auto) 0.6 H ESR PT INR APTT VBG pH 7.49 H VBG pCO2 42 VBG pO2 51 VBG HCO3 33 H VBG O2 Saturation 83.0 VBG Base Excess 9.0 Sodium 145 Potassium 4.3 Chloride 106 Carbon Dioxide 30 H Anion Gap 13 BUN 25 H Creatinine 0.75 Estim Creat Clear Calc 136.9 Estimated GFR > 60 POC Glucose 217 H Random Glucose 227 H Calcium 8.7 Progress Note: A&P Assessment and plan (1) Acute respiratory failure: Status: Acute (2) Cellulitis of right lower leg: Status: Acute (3) Schizoaffective disorder, bipolar type: Status: Acute (4) Morbid obesity: Status: Acute (5) Uncontrolled type 2 diabetes mellitus with hyperglycemia: Status: Acute Plan Patient is a 33 Y F with obesity, hypertension, non-insulin dependent diabetes mellitus, asthma, factor V deficiency, and psychiatric comorbidities initially admitted psychiatric floor 09/07; hospital course c/b sepsis likely d/t lower extremity cellulitis; on 10/22, developed acute respiratory failure, admitted ICU, placed on BiPAP N: no acute issues CV: no acute issues R: acute respiratory failure in the setting of sepsis; on HFNC, wean as tolerated GI: no acute issues : no acute issues H: thrombocytopenia, to continue to monitor ID: lower extremity cellulitis, c/b sepsis; to continue empiric antibiotics P: extensive; on dexmedetomidine gtt; appreciate psychiatry recommendations Quality Stroke Does the patient have a stroke diagnosis?: No VTE Prior VTE?: No VTE Risk Level:: Medical - moderate - high VTE Device Contraindication: Treatment Not Indicated VTE Drug Contraindication: N/A - Med Ordered
[2023-10-25] MEDS: Insulin Lispro 100 UNIT/ML 3 ML VIAL SUBCUT ×4 (08:22→21:06)
[2023-10-25] MEDS: OLANZapine ODT 10 MG TAB.RAPDIS TRANSLINGU (08:23)
[2023-10-25] MEDS: Valproic Acid (as Sodium Salt) 1,000 MG in Dextrose 5 % 50 ML 55 MG IV ×2 (08:23→20:20)
[2023-10-25 09:15] LABS: Magnesium 2.5 mg/dL (1.6-2.6); Phosphorus 3.9 mg/dL (2.7-4.5)
[2023-10-25 09:35] LABS: TSH reflex Free T4 0.64 uIU/mL (0.32-4.0)
[2023-10-25] MEDS: Furosemide 200 MG in 0.9 % Sodium Chloride 80 ML IVCONT (10:04)
[2023-10-25] MEDS: Fluticasone Propionate Nasal 16 GM SPRAY 1 SPRAY NOSTRIL-B ×2 (10:04→20:43)
[2023-10-25 11:40] LABS: Glucose, Whole Blood 198 mg/dL (60-115)
[2023-10-25 11:45] LABS: Venous Blood Gas Refer to POC result
[2023-10-25 11:46] LABS: VBG HCO3 33 mmol/L (22-26); VBG pCO2 48 mmHg; VBG pH 7.45 (7.32-7.43); VBG pO2 58 mmHg
[2023-10-25] MEDS: Piperacillin Sodium/Tazobactam 3.375 GM in 0.9 % Sodium Chloride 50 ML IV ×2 (12:37→18:16)
[2023-10-25] MEDS: Linezolid 600 MG TABLET PO (13:32)
--- NOTE | 2023-10-25 15:11 | MHC.CM.PN ---
Pt continues care in ICU - on high flow O2 and Lasix gtt for fluid overload. Pt is alert/oriented x2 at this time. D/C Plans are ongoing and will depend on pt's clinical progress. Pt from M5 and may need to return to complete treatment. CM to follow.
--- NOTE | 2023-10-25 15:27 | ECG_ITS ---
Test Reason : sepsis Blood Pressure : / mmHG Vent. Rate : 074 BPM Atrial Rate : 074 BPM P-R Int : 150 ms QRS Dur : 104 ms QT Int : 406 ms P-R-T Axes : 061 050 005 degrees QTc Int : 450 ms Normal sinus rhythm Normal ECG When compared with ECG of 21-OCT-2023 09:09, Vent. rate has decreased BY 50 BPM Referred By: Adina Walter Electronically Signed By:RAMON FOFANA MD
[2023-10-25 16:01] LABS: Glucose, Whole Blood 187 mg/dL (60-115)
[2023-10-25] MEDS: hydrOXYzine HCL 25 MG TABLET PO (17:30)
--- NOTE | 2023-10-25 17:39 | PM.EVENT ---
Documented by User: Rianna Santos APRN 10/25/23 18:10 Event Note Date of Service: 10/25/23 Event Note: Follow up with pt for schizoaffective disorder, bipolar type with brendon, RLE cellulitis, sepsis Pt transferred to ICU over the weekend due to acute respiratory failure, status epilepticus. Pt on BIPAP, dexmedetomidine, midazolam prn Valproate is now IV, Olanzapine at 10 bid and prn. Lamictal, Lorazepam continue. Today, pt is in process of being bathed, positioned. She is alert, directive, able to follow supportive direction from her team. She recognizes tw. Records reviewed, medications reviewed. Mood appears less labile. Plan: Decrease Olanzapine to 5 mg bid. Continue Olanzapine prn Continue Valproate Valproate level 10/26. When on M5, pt met with wound care team, Cris Carballo RN, who suggested Edema Wear Compression Stockings. These were ordered, received and are available to pt as needed. We are available to [facility] as needed. Time Spent With Patient Time: Total time managing care of this patient today ____ minutes. Documented by User: James Argueta MD 10/25/23 18:20 Event Note Date of Service: 10/25/23
[2023-10-25 18:04] LABS: Glucose, Whole Blood 180 mg/dL (60-115)
[2023-10-25 19:33] LABS: Baso%MD 0.3 %; Hematocrit 30.6 % (37.0-47.0); Hemoglobin 9.6 g/dl (12.0-16.0); IG%MD 4.5 %; Lymph%MD 15.2 %; Mean Corpuscular HGB Conc 31.4 g/dl (31.0-35.0); Mean Corpuscular Hemoglobin 27.7 pg (27.0-33.0); Mean Corpuscular Volume 88.2 fL (80.0-98.0); Mean Platelet Volume 10.6 fL (9.4-12.3); Mono%MD 7.5 %; NRBC Pct Auto 0.7 /100WBC (0.0-0.2); Neut%MD 72.5 %; Platelet Count 147 X10*3/uL (160-400); Red Blood Count 3.47 X10*6/uL (4.20-5.50); White Blood Count 7.1 X10*3/uL (4.8-10.8)
[2023-10-25 19:38] LABS: INTERNATIONAL NORM RATIO 1.3 (0.9-1.1); Prothrombin Time 16.4 SEC (11.1-13.3)
[2023-10-25] MEDS: cefEPime HCl 2 GM in 0.9 % Sodium Chloride 50 ML IV (19:57)
[2023-10-25 20:10] LABS: Band Neutrophils Percent 0 % (3-5); Lymphocytes Absolute Manual 0.6 X10*3/uL (1.2-4.9); Lymphocytes Percent Manual 8 % (20-40); Monocytes Absolute Manual 0.4 X10*3/uL (0.1-1.2); Monocytes Percent Manual 5 % (2-11); Neutrophils Absolute Manual 6.2 X10*3/uL (2.0-8.3); Neutrophils Percent Manual 87 % (45-73); Nucleated Red Blood Cells 2 /100WBC (0-0)
[2023-10-25 20:11] LABS: Macrocytosis 1+ (5-14) /OIF; Platelet Estimate NORMAL (NORMAL); Platelet Morphology Comment NORMAL; RBC Morphology NOTED
--- NOTE | 2023-10-25 20:11 | HE.PHANOTE ---
RE: lovenox Patient's weight was updated incorrectly, spoke to nurse Damion and provider and we are unable to get an accurate updated weight. Spoke to Cesar who wants a 1.5mg/kg once daily dose based on patient's admission weight of 200kg.
[2023-10-25 20:12] LABS: Polychromasia 1+ (0-2) /OIF; Smudge Cells PRESENT
[2023-10-25] MEDS: lamoTRIgine 25 MG TABLET PO (20:19)
[2023-10-25] MEDS: LORazepam 1 MG TABLET PO (20:19)
[2023-10-25] MEDS: OLANZapine ODT 10 MG TAB.RAPDIS 5 MG TRANSLINGU (20:19)
[2023-10-25] MEDS: 0.9 % Sodium Chloride Flush 10 ML SYRINGE 5 ML IVFLUSH (20:23)
[2023-10-25 20:47] LABS: Glucose, Whole Blood 212 mg/dL (60-115)
[2023-10-25] MEDS: Enoxaparin Sodium 150 MG/ML SYRINGE 260 MG SUBCUT (21:07)
[2023-10-25] MEDS: OLANZapine 5 MG TABLET PO (22:31)
[2023-10-26] VITALS (31 sets, daily range): BP systolic 101–139; BP diastolic 42–76; PULSE 78–100; RESP 13–28; TEMP 37.2–37.6; O2SAT 89–99; BMI 63.5
[2023-10-26] MEDS: methylPREDNISolone Sod Succ 40 MG/ML VIAL IVPUSH ×3 (00:01→20:49)
[2023-10-26] MEDS: Linezolid 600 MG TABLET PO ×2 (00:01→13:05)
[2023-10-26] MEDS: Furosemide 200 MG in 0.9 % Sodium Chloride 80 ML IVCONT ×2 (00:02→18:22)
[2023-10-26] MEDS: cefEPime HCl 2 GM in 0.9 % Sodium Chloride 50 ML IV ×3 (02:15→18:36)
[2023-10-26] MEDS: hydrOXYzine HCL 25 MG TABLET PO ×3 (04:23→18:28)
[2023-10-26] MEDS: OLANZapine 5 MG TABLET PO (04:23)
--- NOTE | 2023-10-26 04:32 | PC.NURSE ---
Addendum entered by Chavez Moreno RN 10/26/23 05:13: REMAINS AWAKE..ALERT..ANXIOUS DESPITE PRIOR ATARAX AND ZYPREXA PO..CALLING OUT HELP ME I'M HAVING AN ALLERGIC REACTION! ..WHEN ASKED WHY SHE THOUGHT SHE WAS HAVING AN ALLERGIC REACTION PATIENT STATED LOOK AT THE BLOOD SPURTING FROM ALL MY FINGERNAILS! CAN'T YOU SEE IT? YOU'VE GOT TO HELP ME!'...PRN VERSED GIVEN PER NOV....REMAINS AWAKE BUT CALMER POST-VERSED...RESPIRATIONS UNCHANGED..SAO2 95% ON HI-LIO CANNULA FIO2 90% Original Note: CARE ASSUMED 7PM...AWAKE..ALERT..ORIENTED X3 BUT INTERMITTENT VAGUE AND INAPPROPRIATE COMMENTS....PERSISTENT ANXIETY DESPITE SCHEDULED HS MEDS...PRN ZYPREXA AND ATARAX PER NOV WITH SOME EFFECT....HI-LIO O2 CANNULA FIO2 90-95% AND 50 L/M...SAO2 91-95%...LASIX DRIP 10 MG/HR...SANTIAGO DRAINING LARGE AMOUNTS URINE....BED SCALE NON-FUNCTIONAL...PER PROVIDER TO UTILIZE ADMISSION WEIGHT OF 200.8 KG...LOVENOX STARTED PER NOV...NSR..NO ECTOPY
[2023-10-26] MEDS: Midazolam HCl/PF 2 MG/2 ML VIAL IVPUSH (05:09)
[2023-10-26 06:55] LABS: Hematocrit 29.5 % (37.0-47.0); Hemoglobin 9.4 g/dl (12.0-16.0); Mean Corpuscular HGB Conc 31.9 g/dl (31.0-35.0); Mean Corpuscular Hemoglobin 27.9 pg (27.0-33.0); Mean Corpuscular Volume 87.5 fL (80.0-98.0); Mean Platelet Volume 10.6 fL (9.4-12.3); Platelet Count 160 X10*3/uL (160-400); Red Blood Count 3.37 X10*6/uL (4.20-5.50); Red Cell Distribution Width 13.9 % (11.0-16.0); White Blood Count 5.7 X10*3/uL (4.8-10.8)
[2023-10-26 06:58] LABS: Valproate < 12.5 mcg/mL (50.0-100.0)
[2023-10-26 07:03] LABS: Anion Gap 13 (12-20); Blood Urea Nitrogen 21 mg/dL (9-16); Calcium 8.6 mg/dL (8.4-10.2); Carbon Dioxide 35 mmol/L (22-29); Chloride 102 mmol/L (96-108); Creatinine Clr Calc Pharmacy 221.1; Estimated Glomerular Filt Rate > 60; Glucose Random 233 mg/dL (60-115); Magnesium 2.3 mg/dL (1.6-2.6); Phosphorus 4.4 mg/dL (2.7-4.5); Potassium 3.7 mmol/L (3.3-5.1); Sodium 146 mmol/L (135-145)
[2023-10-26 07:34] LABS: Glucose, Whole Blood 229 mg/dL (60-115)
--- NOTE | 2023-10-26 07:44 | PM.CCPN ---
Subjective Subjective Date of Service: 10/26/23 Interval History: no significant overnight events Critical Care Time (minutes): 90 Physical Exam Vital Signs: Vital Signs: Last Vital Signs Temp 99.1 F 10/26/23 07:00 Pulse 88 10/26/23 07:00 Resp 15 10/26/23 07:00 BP 139/68 10/26/23 07:00 Pulse Ox 96 10/26/23 07:00 O2 Del Method High Flow Nasal C annula 10/26/23 07:00 O2 Flow Rate 50 10/26/23 07:00 FiO2 95 10/26/23 07:00 BMI result Body Mass Index 63.5 Const: Other: appreciable morbid obesity General: cooperative, comfortable, no acute distress, alert, awake and Physically active HEENT: Head: Yes normal to inspection, Yes normocephalic and Yes atraumatic Eyes: General: appearance normal, both eyes and all related structures Neck: Neck: Yes normal visual inspection, Yes full ROM, Yes no meningeal signs and Yes supple Chest: Chest palpation & inspection: normal inspection of the chest Resp: Other: breath sounds diminished throughout Cardio: Rate: regular rate Rhythm: regular rhythm GI: Inspection: Yes normal to inspection, No Abdominal wall edema and No distended Palpation (GI): Soft to palpation, not firm, nontender, no guarding and not rigid Skin: Other: R LE erythema, improved Neuro: General: no meningeal signs Extrem: General: Yes normal to inspection, Yes capillary refill normal and Yes no clubbing, cyanosis or edema Psych: Other: appreciable intermittent audible hallucinations Objective Data Labs 10/26/23 06:17 10/26/23 06:17 Labs: Laboratory Results - last 24 hr 10/25/23 10/25/23 10/25/23 08:54 11:33 11:39 WBC RBC Hgb Hct MCV MCH MCHC RDW Plt Count MPV Immature Gran % (Auto) Neut % (Auto) Lymph % (Auto) [place] % (Auto) Eos % (Auto) Baso % (Auto) Lymph # (Auto) [place] # (Auto) Eos # (Auto) Baso # (Auto) Abs Immat Gran (auto) Absolute Neuts (auto) Absolute Nucleated RBC Nucleated RBC % (auto) Neutrophils % (Manual) Band Neutrophils % Lymphocytes % (Manual) Monocytes % (Manual) Abs Neuts (Manual) Lymphocytes # (Manual) Monocytes # (Manual) Nucleated RBCs Smudge Cells Platelet Estimate Plt Morphology Comment RBC Morphology Polychromasia Macrocytosis PT INR APTT VBG pH 7.45 H VBG pCO2 48 VBG pO2 58 VBG HCO3 33 H VBG O2 Saturation 88.0 VBG Base Excess 9.0 Sodium Potassium Chloride Carbon Dioxide Anion Gap BUN Creatinine Estim Creat Clear Calc Estimated GFR POC Glucose 198 H Random Glucose Calcium Phosphorus 3.9 Magnesium 2.5 TSH 0.64 Valproic Acid 10/25/23 10/25/23 10/25/23 15:57 17:58 19:25 WBC 7.1 RBC Hgb Hct MCV MCH MCHC RDW Plt Count MPV Immature Gran % (Auto) Neut % (Auto) Lymph % (Auto) [place] % (Auto) Eos % (Auto) Baso % (Auto) Lymph # (Auto) [place] # (Auto) Eos # (Auto) Baso # (Auto) Abs Immat Gran (auto) Absolute Neuts (auto) Absolute Nucleated RBC Nucleated RBC % (auto) Neutrophils % (Manual) Band Neutrophils % Lymphocytes % (Manual) Monocytes % (Manual) Abs Neuts (Manual) Lymphocytes # (Manual) Monocytes # (Manual) Nucleated RBCs Smudge Cells Platelet Estimate Plt Morphology Comment RBC Morphology Polychromasia Macrocytosis PT INR APTT VBG pH VBG pCO2 VBG pO2 VBG HCO3 VBG O2 Saturation VBG Base Excess Sodium Potassium Chloride Carbon Dioxide Anion Gap BUN Creatinine Estim Creat Clear Calc Estimated GFR POC Glucose 187 H 180 H Random Glucose Calcium Phosphorus Magnesium TSH Valproic Acid 10/25/23 10/25/23 10/25/23 19:25 19:25 19:25 WBC Cancelled RBC 3.47 L Cancelled Hgb 9.6 L Cancelled Hct 30.6 L MCV MCH MCHC RDW Plt Count MPV Immature Gran % (Auto) Neut % (Auto) Lymph % (Auto) [place] % (Auto) Eos % (Auto) Baso % (Auto) Lymph # (Auto) [place] # (Auto) Eos # (Auto) Baso # (Auto) Abs Immat Gran (auto) Absolute Neuts (auto) Absolute Nucleated RBC Nucleated RBC % (auto) Neutrophils % (Manual) Band Neutrophils % Lymphocytes % (Manual) Monocytes % (Manual) Abs Neuts (Manual) Lymphocytes # (Manual) Monocytes # (Manual) Nucleated RBCs Smudge Cells Platelet Estimate Plt Morphology Comment RBC Morphology Polychromasia Macrocytosis PT INR APTT VBG pH VBG pCO2 VBG pO2 VBG HCO3 VBG O2 Saturation VBG Base Excess Sodium Potassium Chloride Carbon Dioxide Anion Gap BUN Creatinine Estim Creat Clear Calc Estimated GFR POC Glucose Random Glucose Calcium Phosphorus Magnesium TSH Valproic Acid 10/25/23 10/25/23 10/25/23 19:25 19:25 19:25 WBC RBC Hgb Hct Cancelled MCV 88.2 Cancelled MCH 27.7 Cancelled MCHC 31.4 RDW Plt Count MPV Immature Gran % (Auto) Neut % (Auto) Lymph % (Auto) [place] % (Auto) Eos % (Auto) Baso % (Auto) Lymph # (Auto) [place] # (Auto) Eos # (Auto) Baso # (Auto) Abs Immat Gran (auto) Absolute Neuts (auto) Absolute Nucleated RBC Nucleated RBC % (auto) Neutrophils % (Manual) Band Neutrophils % Lymphocytes % (Manual) Monocytes % (Manual) Abs Neuts (Manual) Lymphocytes # (Manual) Monocytes # (Manual) Nucleated RBCs Smudge Cells Platelet Estimate Plt Morphology Comment RBC Morphology Polychromasia Macrocytosis PT INR APTT VBG pH VBG pCO2 VBG pO2 VBG HCO3 VBG O2 Saturation VBG Base Excess Sodium Potassium Chloride Carbon Dioxide Anion Gap BUN Creatinine Estim Creat Clear Calc Estimated GFR POC Glucose Random Glucose Calcium Phosphorus Magnesium TSH Valproic Acid 10/25/23 10/25/23 10/25/23 19:25 19:25 19:25 WBC RBC Hgb Hct MCV MCH MCHC Cancelled RDW 14.0 Cancelled Plt Count 147 L Cancelled MPV 10.6 Immature Gran % (Auto) Neut % (Auto) Lymph % (Auto) [place] % (Auto) Eos % (Auto) Baso % (Auto) Lymph # (Auto) [place] # (Auto) Eos # (Auto) Baso # (Auto) Abs Immat Gran (auto) Absolute Neuts (auto) Absolute Nucleated RBC Nucleated RBC % (auto) Neutrophils % (Manual) Band Neutrophils % Lymphocytes % (Manual) Monocytes % (Manual) Abs Neuts (Manual) Lymphocytes # (Manual) Monocytes # (Manual) Nucleated RBCs Smudge Cells Platelet Estimate Plt Morphology Comment RBC Morphology Polychromasia Macrocytosis PT INR APTT VBG pH VBG pCO2 VBG pO2 VBG HCO3 VBG O2 Saturation VBG Base Excess Sodium Potassium Chloride Carbon Dioxide Anion Gap BUN Creatinine Estim Creat Clear Calc Estimated GFR POC Glucose Random Glucose Calcium Phosphorus Magnesium TSH Valproic Acid 10/25/23 10/25/23 10/25/23 19:25 19:25 19:25 WBC RBC Hgb Hct MCV MCH MCHC RDW Plt Count MPV Cancelled Immature Gran % (Auto) Neut % (Auto) Lymph % (Auto) [place] % (Auto) Eos % (Auto) Baso % (Auto) Lymph # (Auto) [place] # (Auto) Eos # (Auto) Baso # (Auto) Abs Immat Gran (auto) Absolute Neuts (auto) Absolute Nucleated RBC 0.050 H Cancelled Nucleated RBC % (auto) 0.7 H Cancelled Neutrophils % (Manual) 87 H Band Neutrophils % 0 L Lymphocytes % (Manual) 8 L Monocytes % (Manual) 5 Abs Neuts (Manual) 6.2 Lymphocytes # (Manual) 0.6 L Monocytes # (Manual) 0.4 Nucleated RBCs 2 H Smudge Cells PRESENT Platelet Estimate NORMAL Plt Morphology Comment NORMAL RBC Morphology NOTED Polychromasia 1+ (0-2) Macrocytosis 1+ (5-14) PT 16.4 H INR 1.3 H APTT 28.0 D VBG pH VBG pCO2 VBG pO2 VBG HCO3 VBG O2 Saturation VBG Base Excess Sodium Potassium Chloride Carbon Dioxide Anion Gap BUN Creatinine Estim Creat Clear Calc Estimated GFR POC Glucose Random Glucose Calcium Phosphorus Magnesium TSH Valproic Acid 10/25/23 10/26/23 10/26/23 20:43 06:17 07:31 WBC 5.7 RBC 3.37 L Hgb 9.4 L Hct 29.5 L MCV 87.5 MCH 27.9 MCHC 31.9 RDW 13.9 Plt Count 160 MPV 10.6 Immature Gran % (Auto) Cancelled Neut % (Auto) Cancelled Lymph % (Auto) Cancelled [place] % (Auto) Cancelled Eos % (Auto) Cancelled Baso % (Auto) Cancelled Lymph # (Auto) Cancelled [place] # (Auto) Cancelled Eos # (Auto) Cancelled Baso # (Auto) Cancelled Abs Immat Gran (auto) Cancelled Absolute Neuts (auto) Cancelled Absolute Nucleated RBC 0.060 H Nucleated RBC % (auto) 1.0 H Neutrophils % (Manual) Band Neutrophils % Lymphocytes % (Manual) Monocytes % (Manual) Abs Neuts (Manual) Lymphocytes # (Manual) Monocytes # (Manual) Nucleated RBCs Smudge Cells Platelet Estimate Plt Morphology Comment RBC Morphology Polychromasia Macrocytosis PT INR APTT VBG pH VBG pCO2 VBG pO2 VBG HCO3 VBG O2 Saturation VBG Base Excess Sodium 146 H Potassium 3.7 Chloride 102 Carbon Dioxide 35 H Anion Gap 13 BUN 21 H Creatinine 0.70 Estim Creat Clear Calc 221.1 Estimated GFR > 60 POC Glucose 212 H 229 H Random Glucose 233 H Calcium 8.6 Phosphorus 4.4 Magnesium 2.3 TSH Valproic Acid < 12.5 L Microbiology Microbiology Results: Microbiology 10/24/23 07:43 Blood - Venous Blood Culture - Preliminary No growth after 24 hours. 10/24/23 07:43 Blood - Venous Blood Culture - Preliminary No growth after 24 hours. Progress Note: A&P Assessment and plan (1) Acute respiratory failure: Status: Acute (2) Cellulitis of right lower leg: Status: Acute (3) Schizoaffective disorder, bipolar type: Status: Acute (4) Uncontrolled type 2 diabetes mellitus with hyperglycemia: Status: Acute (5) Morbid obesity: Status: Acute Plan Patient is a 33 Y F with obesity, hypertension, non-insulin dependent diabetes mellitus, asthma, factor V deficiency, and psychiatric comorbidities initially admitted psychiatric floor 09/07; hospital course c/b sepsis likely d/t lower extremity cellulitis; on 10/22, developed acute respiratory failure, admitted ICU, placed on BiPAP N: no acute issues CV: no acute issues R: acute respiratory failure in the setting of sepsis, suspect volume overload; on HFNC, wean as tolerated GI: no acute issues; diabetic diet : no acute issues H: factor V deficiency; given hypoxia, limited CT angiogram, to give empiric treatment-dose enoxaparin, attempt repeat CT angiogram; thrombocytopenia, improved ID: lower extremity cellulitis, c/b sepsis; to consider de-escalate antibiotics w/ improvement of fever, clinical status P: extensive; appreciate psychiatry recommendations Quality Stroke Does the patient have a stroke diagnosis?: No VTE Prior VTE?: No VTE Risk Level:: Medical - moderate - high VTE Device Contraindication: Treatment Not Indicated VTE Drug Contraindication: N/A - Med Ordered
[2023-10-26] MEDS: Albuterol/Iprat 2.5/0.5MG 3 ML AMPUL.NEB INHALE ×4 (07:57→20:10)
[2023-10-26 08:09] LABS: Band Neutrophils Percent 2 % (3-5); Lymphocytes Absolute Manual 0.3 X10*3/uL (1.2-4.9); Lymphocytes Percent Manual 5 % (20-40); Metamyelocytes Absolute 0.1 X10*3/uL; Metamyelocytes Percent 2 %; Monocytes Absolute Manual 0.3 X10*3/uL (0.1-1.2); Monocytes Percent Manual 5 % (2-11); Neutrophils Percent Manual 86 % (45-73)
[2023-10-26 08:12] LABS: Hypochromasia 1+ (5-14) /OIF; Platelet Estimate NORMAL (NORMAL); Platelet Morphology Comment NORMAL; Polychromasia 1+ (0-2) /OIF; RBC Morphology NOTED
[2023-10-26] MEDS: OLANZapine ODT 10 MG TAB.RAPDIS 5 MG TRANSLINGU ×2 (08:25→20:50)
[2023-10-26] MEDS: Insulin Lispro 100 UNIT/ML 3 ML VIAL SUBCUT ×4 (08:27→20:50)
[2023-10-26] MEDS: Fluticasone Propionate Nasal 16 GM SPRAY 1 SPRAY NOSTRIL-B ×2 (08:27→21:32)
[2023-10-26] MEDS: Valproic Acid (as Sodium Salt) 1,000 MG in Dextrose 5 % 50 ML 55 MG IV (08:28)
[2023-10-26] MEDS: Lidocaine 4 % Patch ADH..PATCH 2 PATCH TRANSDERMA (08:28)
[2023-10-26] MEDS: 0.9 % Sodium Chloride Flush 3 ML SYRINGE IVFLUSH ×2 (08:29→17:32)
[2023-10-26 08:41] LABS: Valproate < 12.5 mcg/mL (50.0-100.0)
--- NOTE | 2023-10-26 09:38 | MHC.CM.PN ---
EMR REVIEWED, PT ON LASIX DRIP, REMAINS ON HI FLOW O2 NC, PT IS ALERT AND ORIENTED AND REPORTING SHE IS WORRIED ABOUT HER FAMILY AND HER DAD SPECIFICALLY HE WAS INPT AT [facility] LAST WEEK, PT GAVE CM PERMISSION TO SPEAK TO HER MOTHER IF CM UNABLE TO GET IN TOUCH W/PT'S FATHER HOWEVER CM ABLE TO CONTACT PT'S FATHER JESÚS AT NUMBER ON FILE, JESÚS REQUESTING TO SPEAK W/PT AND CALL TRANSFERRED TO ICU, [facility] JUSTICE TO ICU WILL BRING IN PORTABLE PHONE TO PT JUST PRIOR TO THIS NOTE.. PER UNEMPLOYMENT INSURANCE DIRECTOR NO PLAN FOR PT TO BE DOWNGRADED TO MEDICAL FLOOR AT THIS TIME, PT REQUESTING TO GET OUT OF BED, PLAN FOR PT CONSULT, CM WILL CONT TO FOLLOW DC NEEDS.
--- NOTE | 2023-10-26 10:32 | P.CDIM_ITS ---
PROVIDER RESPONSE TEXT: To clarify, the appropriate diagnosis supported by the clinical indicators: Hypernatremia QUERY TEXT: PHYSICIAN'S DOCUMENTATION REQUEST Date of Query: 10/26/2023 10:21 AM EST Patient Name: Zeinab Cantu Admit Date: 10/20/2023 Dear Adina Walter, A review of the medical record indicates additional documentation may be needed. Please review below and update the documentation accordingly. Clinical Indicators: LAB FINDINGS: sodium 146 H Fluids Based on the above, is there a diagnosis that correlates with these lab findings: Hypernatremia Labs indicate a diagnosis of (please specify) Other (explain) Clinically unable to determine (explain) Thank you, Ina Whitt, CCS, CDIS Use of terms such as suspected, likely, concern for, or probable (associated with a specific diagnosi s that is being evaluated, monitored, or treated as if it exists) are acceptable and can be coded in the inpatient se tting, when documented at the time of discharge. Please use your independent medical judgment in providing your response. THIS QUERY IS PART OF THE PERMANENT MEDICAL RECORD
[2023-10-26 11:56] LABS: Glucose, Whole Blood 274 mg/dL (60-115)
[2023-10-26] MEDS: iohexoL 350 MG/ML 75 ML INFUS..BTL 100 ML IV (13:22)
--- NOTE | 2023-10-26 15:27 | ECG_ITS ---
Test Reason : qtc check Blood Pressure : / mmHG Vent. Rate : 087 BPM Atrial Rate : 087 BPM P-R Int : 150 ms QRS Dur : 096 ms QT Int : 378 ms P-R-T Axes : 055 062 -12 degrees QTc Int : 454 ms Normal sinus rhythm T wave abnormality, consider inferior ischemia Abnormal ECG When compared with ECG of 25-OCT-2023 08:16, No significant change was found Referred By: Adina Walter Electronically Signed By:RAMON FOFANA MD
[2023-10-26 16:23] LABS: Glucose, Whole Blood 286 mg/dL (60-115)
[2023-10-26 18:53] LABS: INTERNATIONAL NORM RATIO 1.2 (0.9-1.1); Prothrombin Time 15.1 SEC (11.1-13.3)
[2023-10-26 19:02] LABS: Anion Gap 17 (12-20); Blood Urea Nitrogen 21 mg/dL (9-16); Calcium 8.8 mg/dL (8.4-10.2); Carbon Dioxide 34 mmol/L (22-29); Chloride 99 mmol/L (96-108); Estimated Glomerular Filt Rate > 60; Glucose Random 289 mg/dL (60-115); Potassium 3.6 mmol/L (3.3-5.1); Sodium 146 mmol/L (135-145)
[2023-10-26 20:20] LABS: Glucose, Whole Blood 228 mg/dL (60-115)
[2023-10-26] MEDS: LORazepam 1 MG TABLET PO (20:49)
[2023-10-26] MEDS: lamoTRIgine 25 MG TABLET PO (20:50)
[2023-10-26] MEDS: Enoxaparin Sodium 150 MG/ML SYRINGE 300 MG SUBCUT (20:51)
[2023-10-26] MEDS: Divalproex Sodium Sprinkles 125 MG CAP.DR.SPR 1000 MG PO (21:46)
[2023-10-27] VITALS (22 sets, daily range): BP systolic 114–142; BP diastolic 58–75; PULSE 71–92; RESP 15–29; TEMP 36.2–37.5; O2SAT 84–98
[2023-10-27] MEDS: Linezolid 600 MG TABLET PO (00:05)
[2023-10-27] MEDS: 0.9 % Sodium Chloride Flush 3 ML SYRINGE IVFLUSH ×4 (00:05→23:45)
[2023-10-27] MEDS: cefEPime HCl 2 GM in 0.9 % Sodium Chloride 50 ML IV (02:49)
[2023-10-27 04:33] LABS: Hematocrit 30.6 % (37.0-47.0); Hemoglobin 9.8 g/dl (12.0-16.0); Mean Corpuscular Hemoglobin 28.1 pg (27.0-33.0); Mean Corpuscular Volume 87.7 fL (80.0-98.0); Mean Platelet Volume 10.5 fL (9.4-12.3); NRBC Pct Auto 0.3 /100WBC (0.0-0.2); Platelet Count 181 X10*3/uL (160-400); Red Blood Count 3.49 X10*6/uL (4.20-5.50); Red Cell Distribution Width 14.1 % (11.0-16.0)
[2023-10-27 04:45] LABS: Anion Gap 16 (12-20); Blood Urea Nitrogen 19 mg/dL (9-16); Calcium 8.4 mg/dL (8.4-10.2); Carbon Dioxide 33 mmol/L (22-29); Chloride 98 mmol/L (96-108); Estimated Glomerular Filt Rate > 60; Glucose Random 273 mg/dL (60-115); Magnesium 2.1 mg/dL (1.6-2.6); Potassium 3.8 mmol/L (3.3-5.1); Sodium 143 mmol/L (135-145)
[2023-10-27 04:56] LABS: Band Neutrophils Percent 7 % (3-5); Lymphocytes Absolute Manual 0.6 X10*3/uL (1.2-4.9); Lymphocytes Percent Manual 10 % (20-40); Metamyelocytes Absolute 0.2 X10*3/uL; Metamyelocytes Percent 3 %; Monocytes Absolute Manual 0.2 X10*3/uL (0.1-1.2); Monocytes Percent Manual 3 % (2-11); Myelocytes Absolute 0.1 X10*/uL; Myelocytes Percent 1 %; Neutrophils Percent Manual 76 % (45-73); RBC Morphology NOTED
[2023-10-27 04:57] LABS: Hypochromasia 1+ (5-14) /OIF; Platelet Estimate NORMAL (NORMAL); Platelet Morphology Comment NORMAL; Polychromasia 1+ (0-2) /OIF
[2023-10-27] MEDS: Albuterol/Iprat 2.5/0.5MG 3 ML AMPUL.NEB INHALE ×4 (07:22→19:47)
[2023-10-27 07:31] LABS: Glucose, Whole Blood 217 mg/dL (60-115)
--- NOTE | 2023-10-27 07:34 | PM.CCPN ---
Subjective Subjective Date of Service: 10/27/23 Interval History: no significant overnight events; improvement of hypoxia Critical Care Time (minutes): 60 Physical Exam Vital Signs: Vital Signs: Last Vital Signs Temp 99.0 F 10/27/23 07:00 Pulse 82 10/27/23 07:25 Resp 24 H 10/27/23 07:25 BP 129/60 10/27/23 07:00 Pulse Ox 94 10/27/23 07:00 O2 Del Method High Flow Nasal C annula 10/27/23 07:00 O2 Flow Rate 40 10/27/23 07:00 FiO2 50 10/27/23 07:00 BMI result Body Mass Index 63.5 Const: Other: appreciable morbid obesity General: cooperative, healthy appearing, comfortable and no acute distress Orientation/consciousness: patient oriented x3 HEENT: Head: Yes normal to inspection, Yes normocephalic and Yes atraumatic Eyes: General: appearance normal, both eyes and all related structures Neck: Neck: Yes normal visual inspection, Yes full ROM and Yes supple Chest: Chest palpation & inspection: normal inspection of the chest Resp: Other: diminished breath sounds throughout; no overt rales, rhonchi, wheezing Effort & Inspection: normal respiratory effort, able to speak in complete sentences and normal respiratory pattern Cardio: Rate: regular rate Rhythm: regular rhythm GI: Inspection: Yes normal to inspection, No Abdominal wall edema and No distended Palpation (GI): Soft to palpation, not firm, nontender, no guarding and not rigid Skin: Other: appreciable erythema R LE, improved from prior Neuro: General: patient oriented x3, tone normal, moves all extremities and no focal motor deficits Extrem: Other: appreciable non-pitting edema throughout General: Yes normal to inspection, Yes full ROM and Yes capillary refill normal Psych: Other: endorses intermittent auditory hallucinations; intermittent anxiety, though re-directable Objective Data Labs 10/27/23 04:24 10/27/23 04:24 Labs: Laboratory Results - last 24 hr 10/26/23 10/26/23 10/26/23 06:17 07:31 08:13 WBC RBC Hgb Hct MCV MCH MCHC RDW Plt Count MPV Immature Gran % (Auto) Neut % (Auto) Lymph % (Auto) [place] % (Auto) Eos % (Auto) Baso % (Auto) Lymph # (Auto) [place] # (Auto) Eos # (Auto) Baso # (Auto) Abs Immat Gran (auto) Absolute Neuts (auto) Absolute Nucleated RBC Nucleated RBC % (auto) Neutrophils % (Manual) 86 H Band Neutrophils % 2 L Lymphocytes % (Manual) 5 L Monocytes % (Manual) 5 Metamyelocytes % 2 Myelocytes % Abs Neuts (Manual) 5.0 Lymphocytes # (Manual) 0.3 L Monocytes # (Manual) 0.3 Metamyelocytes # 0.1 Myelocytes # Platelet Estimate NORMAL Plt Morphology Comment NORMAL RBC Morphology NOTED Polychromasia 1+ (0-2) Hypochromasia 1+ (5-14) PT INR Sodium Potassium Chloride Carbon Dioxide Anion Gap BUN Creatinine Estim Creat Clear Calc Estimated GFR POC Glucose 229 H Random Glucose Calcium Phosphorus Magnesium Valproic Acid < 12.5 L 10/26/23 10/26/23 10/26/23 11:48 16:19 18:22 WBC RBC Hgb Hct MCV MCH MCHC RDW Plt Count MPV Immature Gran % (Auto) Neut % (Auto) Lymph % (Auto) [place] % (Auto) Eos % (Auto) Baso % (Auto) Lymph # (Auto) [place] # (Auto) Eos # (Auto) Baso # (Auto) Abs Immat Gran (auto) Absolute Neuts (auto) Absolute Nucleated RBC Nucleated RBC % (auto) Neutrophils % (Manual) Band Neutrophils % Lymphocytes % (Manual) Monocytes % (Manual) Metamyelocytes % Myelocytes % Abs Neuts (Manual) Lymphocytes # (Manual) Monocytes # (Manual) Metamyelocytes # Myelocytes # Platelet Estimate Plt Morphology Comment RBC Morphology Polychromasia Hypochromasia PT 15.1 H INR 1.2 H Sodium 146 H Potassium 3.6 Chloride 99 Carbon Dioxide 34 H Anion Gap 17 BUN 21 H Creatinine 0.71 Estim Creat Clear Calc 218.0 Estimated GFR > 60 POC Glucose 274 H 286 H Random Glucose 289 H Calcium 8.8 Phosphorus Magnesium Valproic Acid 10/26/23 10/27/23 10/27/23 20:16 04:24 07:26 WBC 6.0 RBC 3.49 L Hgb 9.8 L Hct 30.6 L MCV 87.7 MCH 28.1 MCHC 32.0 RDW 14.1 Plt Count 181 MPV 10.5 Immature Gran % (Auto) Cancelled Neut % (Auto) Cancelled Lymph % (Auto) Cancelled [place] % (Auto) Cancelled Eos % (Auto) Cancelled Baso % (Auto) Cancelled Lymph # (Auto) Cancelled [place] # (Auto) Cancelled Eos # (Auto) Cancelled Baso # (Auto) Cancelled Abs Immat Gran (auto) Cancelled Absolute Neuts (auto) Cancelled Absolute Nucleated RBC 0.020 H Nucleated RBC % (auto) 0.3 H Neutrophils % (Manual) 76 H Band Neutrophils % 7 H Lymphocytes % (Manual) 10 L Monocytes % (Manual) 3 Metamyelocytes % 3 Myelocytes % 1 Abs Neuts (Manual) 5.0 Lymphocytes # (Manual) 0.6 L Monocytes # (Manual) 0.2 Metamyelocytes # 0.2 Myelocytes # 0.1 Platelet Estimate NORMAL Plt Morphology Comment NORMAL RBC Morphology NOTED Polychromasia 1+ (0-2) Hypochromasia 1+ (5-14) PT INR Sodium 143 Potassium 3.8 Chloride 98 Carbon Dioxide 33 H Anion Gap 16 BUN 19 H Creatinine 0.67 Estim Creat Clear Calc 231.0 Estimated GFR > 60 POC Glucose 228 H 217 H Random Glucose 273 H Calcium 8.4 Phosphorus 4.0 Magnesium 2.1 Valproic Acid Microbiology Microbiology Results: Microbiology 10/24/23 07:43 Blood - Venous Blood Culture - Preliminary No growth after 48 hours. 10/24/23 07:43 Blood - Venous Blood Culture - Preliminary No growth after 48 hours. Progress Note: A&P Assessment and plan (1) Acute respiratory failure: Status: Acute (2) Cellulitis of right lower leg: Status: Acute (3) Schizoaffective disorder, bipolar type: Status: Acute (4) Uncontrolled type 2 diabetes mellitus with hyperglycemia: Status: Acute (5) Morbid obesity: Status: Acute Plan Patient is a 33 Y F with obesity, hypertension, non-insulin dependent diabetes mellitus, asthma, factor V deficiency, and psychiatric comorbidities initially admitted psychiatric floor 09/07; hospital course c/b sepsis likely d/t lower extremity cellulitis; on 10/22, developed acute respiratory failure, admitted ICU, placed on BiPAP N: no acute issues CV: no acute issues R: acute respiratory failure in the setting of sepsis, suspect volume overload, improving; of note, patient w/ self-reported prior PE; given multiple attempts at CT angiogram which were inconclusive, decision to empirically treat for PE; on HFNC, wean as tolerated GI: no acute issues; diabetic diet : no acute issues; continue diuresis w/ furosemide gtt H: factor V deficiency; given acute respiratory failure, limited CT angiogram, empirically treating for PE w/ enoxaparin; thrombocytopenia, improved ID: lower extremity cellulitis, c/b sepsis, s/p broad-spectrum antibiotics; now on ceftriaxone E: diabetes mellitus, w/ hyperglycemia; insulin sliding scale P: extensive; appreciate psychiatry recommendations Quality Stroke Does the patient have a stroke diagnosis?: No VTE Prior VTE?: Yes VTE Risk Level:: Medical - moderate - high VTE Device Contraindication: Treatment Not Indicated VTE Drug Contraindication: N/A - Med Ordered
[2023-10-27] MEDS: methylPREDNISolone Sod Succ 40 MG/ML VIAL IVPUSH ×2 (07:48→23:42)
[2023-10-27] MEDS: Insulin Lispro 100 UNIT/ML 3 ML VIAL SUBCUT ×4 (07:48→23:42)
[2023-10-27] MEDS: cefTRIAXone sodium 2 GM in 0.9 % Sodium Chloride 50 ML IV (07:48)
[2023-10-27] MEDS: Divalproex Sodium Sprinkles 125 MG CAP.DR.SPR 1000 MG PO ×2 (08:27→23:41)
[2023-10-27] MEDS: OLANZapine ODT 10 MG TAB.RAPDIS 5 MG TRANSLINGU ×2 (08:27→23:41)
[2023-10-27] MEDS: Lidocaine 4 % Patch ADH..PATCH 2 PATCH TRANSDERMA (08:28)
[2023-10-27] MEDS: Fluticasone Propionate Nasal 16 GM SPRAY 1 SPRAY NOSTRIL-B ×2 (08:28→23:45)
[2023-10-27 11:45] LABS: Glucose, Whole Blood 258 mg/dL (60-115)
--- NOTE | 2023-10-27 14:21 | MHC.CM.PN ---
PT is recommending STR; CM will follow.
--- NOTE | 2023-10-27 15:27 | ECG_ITS ---
Test Reason : qtc check Blood Pressure : / mmHG Vent. Rate : 090 BPM Atrial Rate : 090 BPM P-R Int : 142 ms QRS Dur : 104 ms QT Int : 380 ms P-R-T Axes : 051 037 -22 degrees QTc Int : 464 ms Normal sinus rhythm Nonspecific T wave abnormality Abnormal ECG When compared with ECG of 26-OCT-2023 07:58, No significant change was found Referred By: Adina Walter Electronically Signed By:RAMON FOFANA MD
[2023-10-27 16:15] LABS: Glucose, Whole Blood 244 mg/dL (60-115)
[2023-10-27] MEDS: Furosemide 200 MG in 0.9 % Sodium Chloride 80 ML IVCONT (18:55)
[2023-10-27 18:57] LABS: Anion Gap 18 (12-20); Blood Urea Nitrogen 19 mg/dL (9-16); Calcium 8.3 mg/dL (8.4-10.2); Carbon Dioxide 31 mmol/L (22-29); Chloride 97 mmol/L (96-108); Creatinine Clr Calc Pharmacy 241.8; Estimated Glomerular Filt Rate > 60; Glucose Random 267 mg/dL (60-115); Magnesium 2.2 mg/dL (1.6-2.6); Potassium 3.6 mmol/L (3.3-5.1); Sodium 142 mmol/L (135-145)
[2023-10-27 20:46] LABS: Glucose, Whole Blood 247 mg/dL (60-115)
[2023-10-27] MEDS: Enoxaparin Sodium 150 MG/ML SYRINGE 300 MG SUBCUT (23:41)
[2023-10-27] MEDS: lamoTRIgine 25 MG TABLET PO (23:42)
[2023-10-28] VITALS (13 sets, daily range): BP systolic 140–156; BP diastolic 64–79; PULSE 71–84; RESP 16–24; TEMP 36.3–37; O2SAT 90–99
[2023-10-28] MEDS: Acetaminophen 325 MG TABLET 650 MG PO (05:17)
[2023-10-28] MEDS: hydrOXYzine HCL 25 MG TABLET PO (05:17)
[2023-10-28 06:12] LABS: Hematocrit 31.6 % (37.0-47.0); Hemoglobin 10.3 g/dl (12.0-16.0); Mean Corpuscular HGB Conc 32.6 g/dl (31.0-35.0); Mean Corpuscular Hemoglobin 28.3 pg (27.0-33.0); Mean Corpuscular Volume 86.8 fL (80.0-98.0); Mean Platelet Volume 10.2 fL (9.4-12.3); Platelet Count 177 X10*3/uL (160-400); Red Blood Count 3.64 X10*6/uL (4.20-5.50); Red Cell Distribution Width 13.9 % (11.0-16.0); White Blood Count 5.9 X10*3/uL (4.8-10.8)
[2023-10-28 06:36] LABS: B Type Natriuretic Peptide 39 pg/mL (<100)
[2023-10-28 06:37] LABS: Anion Gap 14 (12-20); Blood Urea Nitrogen 17 mg/dL (9-16); C Reactive Protein 1.24 mg/dL (< or = 0.50); Calcium 8.3 mg/dL (8.4-10.2); Carbon Dioxide 33 mmol/L (22-29); Chloride 97 mmol/L (96-108); Creatinine Clr Calc Pharmacy 227.6; Estimated Glomerular Filt Rate > 60; Glucose Random 268 mg/dL (60-115); Magnesium 2.2 mg/dL (1.6-2.6); Phosphorus 3.2 mg/dL (2.7-4.5); Potassium 4.4 mmol/L (3.3-5.1); Sodium 140 mmol/L (135-145)
[2023-10-28 06:40] LABS: Atypical Lymph Absolute Manual 0.1 x10*3/uL; Atypical Lymphs Percent Manual 1 % (0-6); Band Neutrophils Percent 5 % (3-5); Eosinophils Absolute Manual 0.1 X10*3/uL (0.0-0.4); Eosinophils Percent Manual 1 % (0-4); Lymphocytes Absolute Manual 1.2 X10*3/uL (1.2-4.9); Lymphocytes Percent Manual 21 % (20-40); Metamyelocytes Absolute 0.2 X10*3/uL; Metamyelocytes Percent 3 %; Monocytes Absolute Manual 0.1 X10*3/uL (0.1-1.2); Monocytes Percent Manual 1 % (2-11); Neutrophils Absolute Manual 4.3 X10*3/uL (2.0-8.3); Neutrophils Percent Manual 68 % (45-73)
[2023-10-28 06:41] LABS: Basophilic Stippling 1+ (0-2) /OIF; Hypochromasia 1+ (5-14) /OIF; Macrocytosis 1+ (5-14) /OIF; Microcytosis 1+ (5-14) /OIF; Ovalocytes 1+ (5-14) /OIF; Platelet Estimate SLIGHTLY DECREASED (NORMAL); Platelet Morphology Comment NORMAL; Polychromasia 1+ (0-2) /OIF; RBC Morphology NOTED; Smudge Cells PRESENT; Tear Drop Cells 1+ (0-2) /OIF; Toxic Granulation PRESENT; Toxic Vacuolation PRESENT
[2023-10-28 07:46] LABS: Glucose, Whole Blood 238 mg/dL (60-115)
[2023-10-28] MEDS: Albuterol/Iprat 2.5/0.5MG 3 ML AMPUL.NEB INHALE ×4 (07:54→19:30)
[2023-10-28] MEDS: cefTRIAXone sodium 2 GM in 0.9 % Sodium Chloride 50 ML IV (09:36)
[2023-10-28] MEDS: Divalproex Sodium Sprinkles 125 MG CAP.DR.SPR 1000 MG PO ×2 (09:36→22:59)
[2023-10-28] MEDS: methylPREDNISolone Sod Succ 40 MG/ML VIAL IVPUSH ×2 (09:36→22:59)
[2023-10-28] MEDS: OLANZapine ODT 10 MG TAB.RAPDIS 5 MG TRANSLINGU ×2 (09:36→23:00)
[2023-10-28] MEDS: 0.9 % Sodium Chloride Flush 3 ML SYRINGE IVFLUSH ×3 (09:37→23:17)
[2023-10-28] MEDS: Lidocaine 4 % Patch ADH..PATCH 2 PATCH TRANSDERMA (09:37)
[2023-10-28] MEDS: Insulin Lispro 100 UNIT/ML 3 ML VIAL SUBCUT ×4 (09:37→23:00)
[2023-10-28] MEDS: Fluticasone Propionate Nasal 16 GM SPRAY 1 SPRAY NOSTRIL-B ×2 (09:56→23:02)
--- NOTE | 2023-10-28 10:17 | MHC.CM.PN ---
Per ROUNDS discussion, Patient is on high flow O2 and is not yet medically cleared for dc; PT is recommending STR and [facility] is following, as will CM.
[2023-10-28 11:17] LABS: Glucose, Whole Blood 197 mg/dL (60-115)
--- NOTE | 2023-10-28 12:22 | P.PNIM_ITS ---
Subjective Subjective Date of Service: 10/28/23 Interval History: Seen and evaluated this morning Feels mildly better reporting vaginal bleeding weaning down O2 supplement Review of Systems Review of Systems: Yes all other systems are reviewed and are negative Physical Exam 2 Vital Signs: Vital Signs: Last Vital Signs Temp 97.4 F 10/28/23 11:47 Pulse 83 10/28/23 11:47 Resp 18 10/28/23 11:47 BP 140/75 H 10/28/23 11:47 Pulse Ox 92 10/28/23 11:47 O2 Del Method High Flow Nasal C annula 10/28/23 11:47 O2 Flow Rate 40 10/28/23 11:47 FiO2 40 10/28/23 11:47 BMI result Body Mass Index 63.5 Const: Other: Constitutional : Awake, interactive, obese, in mild resp distress Neck : Normal inspection, Supple Cardiovascular : RRR, no JVP, no lower extremity edema Respiratory :fair bilateral air entry, decreased on basis with fine crackles, on high flow 40L, 45%. Gastrointestinal: soft, lax, Normal bowel sounds, Non tender Skin : Warm, Dry Neurological : Alert & oriented x3, No focal deficit Objective Data Active Medications Acetaminophen (Acetaminophen 325 Mg Tablet) 650 mg PO Q4H PRN PRN Reason: Fever >100.4 Last Admin: 10/28/23 05:17 Dose: 650 mg Documented By: NORBERT Albuterol/Ipratropium (Albuterol/Iprat 2.5/0.5mg 3 Ml Ampul.Neb) 3 ml INHALE Q4H PRN PRN Reason: Wheezing Last Admin: 10/22/23 15:55 Dose: 3 ml Documented By: KIERA Albuterol/Ipratropium (Albuterol/Iprat 2.5/0.5mg 3 Ml Ampul.Neb) 3 ml INHALE RQ4H WHILE AWAKE [facility] Last Admin: 10/28/23 11:22 Dose: 3 ml Documented By: SLICK Atenolol (Atenolol 25 Mg Tablet) 25 mg PO DAILY [facility]; Protocol Last Admin: 10/24/23 07:30 Dose: 25 mg Documented By: HEATHER Dextrose (Dextrose 50 % 25 Gm/50 Ml Syringe) 25 gm IVPUSH Q15M PRN; Protocol PRN Reason: per Hypoglycemia Standing Ord. Divalproex Sodium (Divalproex Sodium Sprinkles 125 Mg ) 1,000 mg PO BID [facility] Last Admin: 10/28/23 09:36 Dose: 1,000 mg Documented By: GINGER Docusate Sodium (Docusate Sodium 100 Mg Capsule) 100 mg PO DAILY PRN PRN Reason: Constipation Enoxaparin Sodium (Enoxaparin Sodium 150 Mg/Ml Syringe) 300 mg SUBCUT Q24H [facility] Last Admin: 10/27/23 23:41 Dose: 300 mg Documented By: NORBERT Fluticasone Propionate (Fluticasone Propionate Nasal 16 Gm [place]) 1 spray NOSTRIL-B BID [facility] Last Admin: 10/28/23 09:56 Dose: 1 spray Documented By: GINGER Glucose (Glucose Gel 15 Gm Gel..Gram.) 15 gm PO Q15M PRN; Protocol PRN Reason: per Hypoglycemia Standing Ord. Hydroxyzine HCl (Hydroxyzine Hcl 25 Mg Tablet) 25 mg PO Q6H PRN PRN Reason: Anxiety Last Admin: 10/28/23 05:17 Dose: 25 mg Documented By: NORBERT Furosemide 200 mg/ Sodium (Chloride) 100 mls @ 2.5 mls/hr IVCONT .Q24H [facility] Last Admin: 10/27/23 18:55 Dose: 5 mg/hr, 2.5 mls/hr Documented By: HEATHER Ceftriaxone Sodium 2 gm/ (Sodium Chloride) 50 mls @ 100 mls/hr IV Q24H [facility] Last Infusion: 10/28/23 10:11 Dose: Infused Documented By: GINGER Insulin Human Lispro (Insulin Lispro 100 Unit/Ml 3 Ml Vial) 0 unit SUBCUT QIDACHS [facility]; Protocol Last Admin: 10/28/23 12:19 Dose: 2 unit Documented By: GINGER Lamotrigine (Lamotrigine 25 Mg Tablet) 25 mg PO BEDTIME [facility] Last Admin: 10/27/23 23:42 Dose: 25 mg Documented By: NORBERT Lidocaine (Lidocaine 4 % Patch Adh..Patch) 2 patch TRANSDERMA DAILY [facility]; Protocol Last Admin: 10/28/23 09:37 Dose: 2 patch Documented By: GINGER Magnesium Hydroxide (Milk Of Magnesia 30 Ml Oral.Susp) 30 ml PO DAILY PRN PRN Reason: Constipation Methylprednisolone Sodium Succinate (Methylprednisolone Sod Succ 40 Mg/Ml Vial) 40 mg IVPUSH Q12H [facility] Last Admin: 10/28/23 09:36 Dose: 40 mg Documented By: GINGER Midazolam HCl (Midazolam Hcl/Pf 2 Mg/2 Ml Vial) 2 mg IVPUSH Q2H PRN PRN Reason: anxiety/restlessness Olanzapine (Olanzapine 5 Mg Tablet) 5 mg PO Q4H PRN PRN Reason: Psychosis Last Admin: 10/26/23 04:23 Dose: 5 mg Documented By: AMERICA Olanzapine (Olanzapine Odt 10 Mg Tab.Rapdis) 5 mg TRANSLINGU BID [facility] Last Admin: 10/28/23 09:36 Dose: 5 mg Documented By: GINGER Sodium Chloride (0.9 % Sodium Chloride Flush 3 Ml Syringe) 3 ml IVFLUSH QSHIFT [facility] Last Admin: 10/28/23 09:37 Dose: 3 ml Documented By: GINGER Trazodone HCl (Trazodone Hcl 50 Mg Tablet) 50 mg PO BEDTIME PRN PRN Reason: Insomnia Labs 10/28/23 06:04 10/28/23 06:04 Labs: Laboratory Results - last 24 hr 10/27/23 10/27/23 10/27/23 16:11 18:21 20:02 MCV MCH MCHC RDW Plt Count MPV Immature Gran % (Auto) Neut % (Auto) Lymph % (Auto) [place] % (Auto) Eos % (Auto) Baso % (Auto) Lymph # (Auto) [place] # (Auto) Eos # (Auto) Baso # (Auto) Abs Immat Gran (auto) Absolute Neuts (auto) Absolute Nucleated RBC Nucleated RBC % (auto) Neutrophils % (Manual) Band Neutrophils % Lymphocytes % (Manual) Atypical Lymphs % (Man) Monocytes % (Manual) Eosinophils % (Manual) Metamyelocytes % Abs Neuts (Manual) Lymphocytes # (Manual) Atyp Lymphs # (Manual) Monocytes # (Manual) Eosinophils # (Manual) Metamyelocytes # Smudge Cells Toxic Granulation Toxic Vacuolation Platelet Estimate Plt Morphology Comment RBC Morphology Polychromasia Hypochromasia Basophilic Stippling Microcytosis Macrocytosis Tear Drop Cells Ovalocytes Anion Gap 18 Estim Creat Clear Calc 241.8 Estimated GFR > 60 POC Glucose 244 H 247 H Random Glucose 267 H Calcium 8.3 L Phosphorus Magnesium 2.2 C-Reactive Protein B-Natriuretic Peptide 10/28/23 10/28/23 10/28/23 06:04 06:04 06:04 MCV Cancelled 86.8 MCH Cancelled 28.3 MCHC Cancelled RDW Plt Count MPV Immature Gran % (Auto) Neut % (Auto) Lymph % (Auto) [place] % (Auto) Eos % (Auto) Baso % (Auto) Lymph # (Auto) [place] # (Auto) Eos # (Auto) Baso # (Auto) Abs Immat Gran (auto) Absolute Neuts (auto) Absolute Nucleated RBC Nucleated RBC % (auto) Neutrophils % (Manual) Band Neutrophils % Lymphocytes % (Manual) Atypical Lymphs % (Man) Monocytes % (Manual) Eosinophils % (Manual) Metamyelocytes % Abs Neuts (Manual) Lymphocytes # (Manual) Atyp Lymphs # (Manual) Monocytes # (Manual) Eosinophils # (Manual) Metamyelocytes # Smudge Cells Toxic Granulation Toxic Vacuolation Platelet Estimate Plt Morphology Comment RBC Morphology Polychromasia Hypochromasia Basophilic Stippling Microcytosis Macrocytosis Tear Drop Cells Ovalocytes Anion Gap Estim Creat Clear Calc Estimated GFR POC Glucose Random Glucose Calcium Phosphorus Magnesium C-Reactive Protein B-Natriuretic Peptide 10/28/23 10/28/23 10/28/23 06:04 06:04 06:04 MCV MCH MCHC 32.6 RDW Cancelled 13.9 Plt Count Cancelled 177 MPV Cancelled Immature Gran % (Auto) Neut % (Auto) Lymph % (Auto) [place] % (Auto) Eos % (Auto) Baso % (Auto) Lymph # (Auto) [place] # (Auto) Eos # (Auto) Baso # (Auto) Abs Immat Gran (auto) Absolute Neuts (auto) Absolute Nucleated RBC Nucleated RBC % (auto) Neutrophils % (Manual) Band Neutrophils % Lymphocytes % (Manual) Atypical Lymphs % (Man) Monocytes % (Manual) Eosinophils % (Manual) Metamyelocytes % Abs Neuts (Manual) Lymphocytes # (Manual) Atyp Lymphs # (Manual) Monocytes # (Manual) Eosinophils # (Manual) Metamyelocytes # Smudge Cells Toxic Granulation Toxic Vacuolation Platelet Estimate Plt Morphology Comment RBC Morphology Polychromasia Hypochromasia Basophilic Stippling Microcytosis Macrocytosis Tear Drop Cells Ovalocytes Anion Gap Estim Creat Clear Calc Estimated GFR POC Glucose Random Glucose Calcium Phosphorus Magnesium C-Reactive Protein B-Natriuretic Peptide 10/28/23 10/28/23 10/28/23 06:04 06:04 06:04 MCV MCH MCHC RDW Plt Count MPV 10.2 Immature Gran % (Auto) Cancelled Neut % (Auto) Cancelled Lymph % (Auto) Cancelled [place] % (Auto) Cancelled Eos % (Auto) Cancelled Baso % (Auto) Cancelled Lymph # (Auto) Cancelled [place] # (Auto) Cancelled Eos # (Auto) Cancelled Baso # (Auto) Cancelled Abs Immat Gran (auto) Cancelled Absolute Neuts (auto) Cancelled Absolute Nucleated RBC Cancelled 0.000 Nucleated RBC % (auto) Cancelled 0.0 Neutrophils % (Manual) 68 Band Neutrophils % 5 Lymphocytes % (Manual) 21 Atypical Lymphs % (Man) 1 Monocytes % (Manual) 1 L Eosinophils % (Manual) 1 Metamyelocytes % 3 Abs Neuts (Manual) 4.3 Lymphocytes # (Manual) 1.2 Atyp Lymphs # (Manual) 0.1 Monocytes # (Manual) 0.1 Eosinophils # (Manual) 0.1 Metamyelocytes # 0.2 Smudge Cells PRESENT Toxic Granulation PRESENT Toxic Vacuolation PRESENT Platelet Estimate SLIGHTLY DECREASED Plt Morphology Comment NORMAL RBC Morphology NOTED Polychromasia 1+ (0-2) Hypochromasia 1+ (5-14) Basophilic Stippling 1+ (0-2) Microcytosis 1+ (5-14) Macrocytosis 1+ (5-14) Tear Drop Cells 1+ (0-2) Ovalocytes 1+ (5-14) Anion Gap 14 Estim Creat Clear Calc Estimated GFR POC Glucose Random Glucose Calcium Phosphorus Magnesium C-Reactive Protein B-Natriuretic Peptide 10/28/23 10/28/23 10/28/23 06:04 06:04 06:04 MCV MCH MCHC RDW Plt Count MPV Immature Gran % (Auto) Neut % (Auto) Lymph % (Auto) [place] % (Auto) Eos % (Auto) Baso % (Auto) Lymph # (Auto) [place] # (Auto) Eos # (Auto) Baso # (Auto) Abs Immat Gran (auto) Absolute Neuts (auto) Absolute Nucleated RBC Nucleated RBC % (auto) Neutrophils % (Manual) Band Neutrophils % Lymphocytes % (Manual) Atypical Lymphs % (Man) Monocytes % (Manual) Eosinophils % (Manual) Metamyelocytes % Abs Neuts (Manual) Lymphocytes # (Manual) Atyp Lymphs # (Manual) Monocytes # (Manual) Eosinophils # (Manual) Metamyelocytes # Smudge Cells Toxic Granulation Toxic Vacuolation Platelet Estimate Plt Morphology Comment RBC Morphology Polychromasia Hypochromasia Basophilic Stippling Microcytosis Macrocytosis Tear Drop Cells Ovalocytes Anion Gap Cancelled Estim Creat Clear Calc 227.6 Cancelled Estimated GFR > 60 Cancelled POC Glucose Random Glucose 268 H Calcium Phosphorus Magnesium C-Reactive Protein B-Natriuretic Peptide 10/28/23 10/28/23 10/28/23 06:04 06:04 07:29 MCV MCH MCHC RDW Plt Count MPV Immature Gran % (Auto) Neut % (Auto) Lymph % (Auto) [place] % (Auto) Eos % (Auto) Baso % (Auto) Lymph # (Auto) [place] # (Auto) Eos # (Auto) Baso # (Auto) Abs Immat Gran (auto) Absolute Neuts (auto) Absolute Nucleated RBC Nucleated RBC % (auto) Neutrophils % (Manual) Band Neutrophils % Lymphocytes % (Manual) Atypical Lymphs % (Man) Monocytes % (Manual) Eosinophils % (Manual) Metamyelocytes % Abs Neuts (Manual) Lymphocytes # (Manual) Atyp Lymphs # (Manual) Monocytes # (Manual) Eosinophils # (Manual) Metamyelocytes # Smudge Cells Toxic Granulation Toxic Vacuolation Platelet Estimate Plt Morphology Comment RBC Morphology Polychromasia Hypochromasia Basophilic Stippling Microcytosis Macrocytosis Tear Drop Cells Ovalocytes Anion Gap Estim Creat Clear Calc Estimated GFR POC Glucose 238 H Random Glucose Cancelled Calcium 8.3 L Cancelled Phosphorus 3.2 Magnesium 2.2 C-Reactive Protein 1.24 H B-Natriuretic Peptide 39 10/28/23 11:08 MCV MCH MCHC RDW Plt Count MPV Immature Gran % (Auto) Neut % (Auto) Lymph % (Auto) [place] % (Auto) Eos % (Auto) Baso % (Auto) Lymph # (Auto) [place] # (Auto) Eos # (Auto) Baso # (Auto) Abs Immat Gran (auto) Absolute Neuts (auto) Absolute Nucleated RBC Nucleated RBC % (auto) Neutrophils % (Manual) Band Neutrophils % Lymphocytes % (Manual) Atypical Lymphs % (Man) Monocytes % (Manual) Eosinophils % (Manual) Metamyelocytes % Abs Neuts (Manual) Lymphocytes # (Manual) Atyp Lymphs # (Manual) Monocytes # (Manual) Eosinophils # (Manual) Metamyelocytes # Smudge Cells Toxic Granulation Toxic Vacuolation Platelet Estimate Plt Morphology Comment RBC Morphology Polychromasia Hypochromasia Basophilic Stippling Microcytosis Macrocytosis Tear Drop Cells Ovalocytes Anion Gap Estim Creat Clear Calc Estimated GFR POC Glucose 197 H Random Glucose Calcium Phosphorus Magnesium C-Reactive Protein B-Natriuretic Peptide Assessment and Plan (1) Acute respiratory failure: Status: Acute (2) Asthma with status asthmaticus in adult: Status: Acute (3) Cellulitis of right lower leg: Status: Acute Plan A 33 Y F with obesity, hypertension, non-insulin dependent diabetes mellitus, asthma, factor V deficiency, and psychiatric comorbidities initially admitted psychiatric floor 09/07; hospital course c/b sepsis likely d/t lower extremity cellulitis; on 10/22, developed acute respiratory failure, admitted ICU, placed on BiPAP then high flow with good response. transferred to medical floor. Acute hypoxic respiratory failure 2/2 Sepsis from Pneumonia and fluid overload with suspected PE Multiple CTA which were inconclusive, started on Empirical AC on HFNC, wean down as tolerated Continue antbiotics and steroids Continue Lasix drip monitor I\O Fact V Liden Def. Limited CTA with hypoxemia Empirical Lovenox RLE Cellulitis Continue Ceftriaxone and Doxycycline local care, creams Type 2 DM Diabetic diet SSI Schizoaffective disorder Psych input appreciated; continue Lamictal and Valproate Zyprexa bid and prn Morbid obesity advised to lose weight Vaginal bleeding has period, on blood thinner DVT PPx Lovenox The patient will need overnight hospital stay while on high flow oxygen pending clinical improvement and weaning her off Highflow. Quality Stroke Does the patient have a stroke diagnosis?: No VTE Prior VTE?: Yes VTE Risk Level:: Medical - moderate - high VTE Device Contraindication: Treatment Not Indicated VTE Drug Contraindication: N/A - Med Ordered
[2023-10-28] MEDS: Doxycycline Monohydrate 100 MG CAPSULE PO ×2 (14:31→22:59)
--- NOTE | 2023-10-28 15:27 | ECG_ITS ---
Test Reason : qtc check Blood Pressure : / mmHG Vent. Rate : 072 BPM Atrial Rate : 072 BPM P-R Int : 146 ms QRS Dur : 106 ms QT Int : 434 ms P-R-T Axes : 033 051 018 degrees QTc Int : 475 ms Normal sinus rhythm Normal ECG When compared with ECG of 27-OCT-2023 08:32, Nonspecific T wave abnormality no longer evident in Lateral leads Referred By: Adina Walter Electronically Signed By:RAOMN FOFANA MD
[2023-10-28] MEDS: Hydrocortisone 1 % Ointment 28.35 GM TUBE 1 APPL TOPICAL ×2 (16:02→23:01)
[2023-10-28] MEDS: Furosemide 200 MG in 0.9 % Sodium Chloride 80 ML IVCONT (16:11)
[2023-10-28 16:27] LABS: Glucose, Whole Blood 266 mg/dL (60-115)
[2023-10-28 18:28] LABS: Anion Gap 15 (12-20); Blood Urea Nitrogen 19 mg/dL (9-16); Calcium 8.4 mg/dL (8.4-10.2); Carbon Dioxide 27 mmol/L (22-29); Chloride 99 mmol/L (96-108); Estimated Glomerular Filt Rate > 60; Glucose Random 296 mg/dL (60-115); Magnesium 2.1 mg/dL (1.6-2.6); Phosphorus 2.4 mg/dL (2.7-4.5); Potassium 4.3 mmol/L (3.3-5.1); Sodium 137 mmol/L (135-145)
[2023-10-28] MEDS: Enoxaparin Sodium 150 MG/ML SYRINGE 300 MG SUBCUT (22:59)
[2023-10-28] MEDS: lamoTRIgine 25 MG TABLET PO (23:00)
[2023-10-28] MEDS: Alteplase Cath Clear 2 MG/2 ML VIAL INTRACATH ×3 (23:17)
[2023-10-28 23:18] LABS: Glucose, Whole Blood 260 mg/dL (60-115)
[2023-10-29] VITALS (14 sets, daily range): BP systolic 135–149; BP diastolic 64–75; PULSE 61–78; RESP 12–20; TEMP 35.9–36.8; O2SAT 92–98
--- NOTE | 2023-10-29 04:42 | PC.NURSE ---
10/28/23 2220. 3 lumen Picc line unable to draw blood and white lumen unable to flush. Cathflo ordered by Dr. Santos for all three ports. Cathflo administered per recommendations and protocol found on packaging insert After 30 minutes of dwell time, catheer function was successful in all three lumens as able to aspirate blood from each lumen. 3-4 mL of blood was aspirate to remove Cathflo and residual clots. Aspirate discarded and lumens flushed with Normal saline utilizing push pause method. Pt tolerated procedure well without complications.
[2023-10-29 07:05] LABS: Hemoglobin 10.7 g/dl (12.0-16.0); Mean Corpuscular HGB Conc 32.4 g/dl (31.0-35.0); Mean Corpuscular Hemoglobin 27.8 pg (27.0-33.0); Mean Corpuscular Volume 85.7 fL (80.0-98.0); Mean Platelet Volume 10.2 fL (9.4-12.3); Platelet Count 201 X10*3/uL (160-400); Red Blood Count 3.85 X10*6/uL (4.20-5.50); Red Cell Distribution Width 13.8 % (11.0-16.0); White Blood Count 8.3 X10*3/uL (4.8-10.8)
[2023-10-29 07:13] LABS: Anion Gap 14 (12-20); Blood Urea Nitrogen 18 mg/dL (9-16); Calcium 8.6 mg/dL (8.4-10.2); Carbon Dioxide 32 mmol/L (22-29); Chloride 95 mmol/L (96-108); Creatinine Clr Calc Pharmacy 227.6; Estimated Glomerular Filt Rate > 60; Glucose Random 278 mg/dL (60-115); Phosphorus 2.8 mg/dL (2.7-4.5); Potassium 4.4 mmol/L (3.3-5.1); Sodium 137 mmol/L (135-145)
[2023-10-29 07:49] LABS: Glucose, Whole Blood 263 mg/dL (60-115)
[2023-10-29] MEDS: Albuterol/Iprat 2.5/0.5MG 3 ML AMPUL.NEB INHALE ×4 (08:06→19:38)
[2023-10-29 08:12] LABS: Band Neutrophils Percent 1 % (3-5); Lymphocytes Absolute Manual 1.8 X10*3/uL (1.2-4.9); Lymphocytes Percent Manual 22 % (20-40); Metamyelocytes Absolute 0.1 X10*3/uL; Metamyelocytes Percent 1 %; Monocytes Absolute Manual 0.2 X10*3/uL (0.1-1.2); Monocytes Percent Manual 2 % (2-11); Neutrophils Absolute Manual 6.2 X10*3/uL (2.0-8.3); Neutrophils Percent Manual 74 % (45-73)
[2023-10-29 08:13] LABS: Polychromasia 1+ (0-2) /OIF; RBC Morphology NOTED
[2023-10-29 08:14] LABS: Platelet Estimate NORMAL (NORMAL); Platelet Morphology Comment NORMAL
[2023-10-29] MEDS: OLANZapine ODT 10 MG TAB.RAPDIS 5 MG TRANSLINGU ×2 (10:11→21:58)
[2023-10-29] MEDS: Doxycycline Monohydrate 100 MG CAPSULE PO ×2 (10:12→21:58)
[2023-10-29] MEDS: methylPREDNISolone Sod Succ 40 MG/ML VIAL IVPUSH ×2 (10:12→21:58)
[2023-10-29] MEDS: Divalproex Sodium Sprinkles 125 MG CAP.DR.SPR 1000 MG PO ×2 (10:13→21:59)
[2023-10-29] MEDS: cefTRIAXone sodium 2 GM in 0.9 % Sodium Chloride 50 ML IV (10:14)
[2023-10-29] MEDS: 0.9 % Sodium Chloride Flush 3 ML SYRINGE IVFLUSH ×3 (10:14→21:59)
[2023-10-29] MEDS: Insulin Lispro 100 UNIT/ML 3 ML VIAL SUBCUT ×4 (10:15→22:07)
[2023-10-29] MEDS: Lidocaine 4 % Patch ADH..PATCH 2 PATCH TRANSDERMA (10:16)
[2023-10-29] MEDS: metOLazone 2.5 MG TABLET PO (10:23)
[2023-10-29] MEDS: Furosemide 40 MG/4 ML VIAL IVPUSH ×2 (10:23→16:34)
[2023-10-29] MEDS: Hydrocortisone 1 % Ointment 28.35 GM TUBE 1 APPL TOPICAL ×2 (10:24→21:57)
[2023-10-29] MEDS: Fluticasone Propionate Nasal 16 GM SPRAY 1 SPRAY NOSTRIL-B ×2 (10:24→21:57)
[2023-10-29 11:48] LABS: Glucose, Whole Blood 221 mg/dL (60-115)
--- NOTE | 2023-10-29 12:02 | HO.PM.IMPN ---
Subjective Subjective Date of Service: 10/29/23 Interval History: Seen and evaluated this morning improving slowly less vaginal bleeding weaning down O2 supplement ; on 40,45% this morning Review of Systems Review of Systems: Yes all other systems are reviewed and are negative Physical Exam Vital Signs: Vital Signs: Last Vital Signs Temp 97.0 F 10/29/23 11:39 Pulse 73 10/29/23 11:39 Resp 20 10/29/23 11:39 BP 140/75 H 10/29/23 11:39 Pulse Ox 92 10/29/23 11:39 O2 Del Method High Flow Nasal C annula 10/29/23 11:39 O2 Flow Rate 35 10/29/23 11:39 FiO2 30 10/29/23 11:39 BMI result Body Mass Index 63.5 Const: Other: Constitutional : Awake, interactive, obese, in mild resp distress Neck : Normal inspection, Supple Cardiovascular : RRR, no JVP, no lower extremity edema Respiratory :fair bilateral air entry, decreased on basis with fine crackles, on high flow 40L, 45%. Gastrointestinal: soft, lax, Normal bowel sounds, Non tender Skin : Warm, Dry Neurological : Alert & oriented x3, No focal deficit Objective Data Active Medications Acetaminophen (Acetaminophen 325 Mg Tablet) 650 mg PO Q4H PRN PRN Reason: Fever >100.4 Last Admin: 10/28/23 05:17 Dose: 650 mg Documented By: NORBERT Albuterol/Ipratropium (Albuterol/Iprat 2.5/0.5mg 3 Ml Ampul.Neb) 3 ml INHALE RQ4H WHILE AWAKE [facility] Last Admin: 10/29/23 11:14 Dose: 3 ml Documented By: SCOTT Atenolol (Atenolol 25 Mg Tablet) 25 mg PO DAILY [facility]; Protocol Last Admin: 10/24/23 07:30 Dose: 25 mg Documented By: HEATHER Dextrose (Dextrose 50 % 25 Gm/50 Ml Syringe) 25 gm IVPUSH Q15M PRN; Protocol PRN Reason: per Hypoglycemia Standing Ord. Divalproex Sodium (Divalproex Sodium Sprinkles 125 Mg ) 1,000 mg PO BID [facility] Last Admin: 10/29/23 10:13 Dose: 1,000 mg Documented By: GINGER Docusate Sodium (Docusate Sodium 100 Mg Capsule) 100 mg PO DAILY PRN PRN Reason: Constipation Doxycycline Monohydrate (Doxycycline Monohydrate 100 Mg Capsule) 100 mg PO BID [facility] Last Admin: 10/29/23 10:12 Dose: 100 mg Documented By: GINGER Enoxaparin Sodium (Enoxaparin Sodium 150 Mg/Ml Syringe) 300 mg SUBCUT Q24H [facility] Last Admin: 10/28/23 22:59 Dose: 300 mg Documented By: NORBERT Fluticasone Propionate (Fluticasone Propionate Nasal 16 Gm [place]) 1 spray NOSTRIL-B BID [facility] Last Admin: 10/29/23 10:24 Dose: 1 spray Documented By: GINGER Furosemide (Furosemide 40 Mg/4 Ml Vial) 40 mg IVPUSH BID@0900,1800 [facility]; Protocol Last Admin: 10/29/23 10:23 Dose: 40 mg Documented By: GINGER Glucose (Glucose Gel 15 Gm Gel..Gram.) 15 gm PO Q15M PRN; Protocol PRN Reason: per Hypoglycemia Standing Ord. Hydrocortisone (Hydrocortisone 1 % Ointment 28.35 Gm Tube) 1 appl TOPICAL BID [facility]; Protocol Last Admin: 10/29/23 10:24 Dose: 1 appl Documented By: GINGER Hydroxyzine HCl (Hydroxyzine Hcl 25 Mg Tablet) 25 mg PO Q6H PRN PRN Reason: Anxiety Last Admin: 10/28/23 05:17 Dose: 25 mg Documented By: NORBERT Ceftriaxone Sodium 2 gm/ (Sodium Chloride) 50 mls @ 100 mls/hr IV Q24H [facility] Last Infusion: 10/29/23 10:46 Dose: Infused Documented By: GINGER Insulin Human Lispro (Insulin Lispro 100 Unit/Ml 3 Ml Vial) 0 unit SUBCUT QIDACHS [facility]; Protocol Last Admin: 10/29/23 10:15 Dose: 6 unit Documented By: GINGER Lamotrigine (Lamotrigine 25 Mg Tablet) 25 mg PO BEDTIME [facility] Last Admin: 10/28/23 23:00 Dose: 25 mg Documented By: NORBERT Lidocaine (Lidocaine 4 % Patch Adh..Patch) 2 patch TRANSDERMA DAILY [facility]; Protocol Last Admin: 10/29/23 10:16 Dose: 2 patch Documented By: GINGER Magnesium Hydroxide (Milk Of Magnesia 30 Ml Oral.Susp) 30 ml PO DAILY PRN PRN Reason: Constipation Methylprednisolone Sodium Succinate (Methylprednisolone Sod Succ 40 Mg/Ml Vial) 40 mg IVPUSH Q12H [facility] Last Admin: 10/29/23 10:12 Dose: 40 mg Documented By: GINGER Midazolam HCl (Midazolam Hcl/Pf 2 Mg/2 Ml Vial) 2 mg IVPUSH Q2H PRN PRN Reason: anxiety/restlessness Olanzapine (Olanzapine 5 Mg Tablet) 5 mg PO Q4H PRN PRN Reason: Psychosis Last Admin: 10/26/23 04:23 Dose: 5 mg Documented By: AMERICA Olanzapine (Olanzapine Odt 10 Mg Tab.Rapdis) 5 mg TRANSLINGU BID [facility] Last Admin: 10/29/23 10:11 Dose: 5 mg Documented By: GINGER Sodium Chloride (0.9 % Sodium Chloride Flush 3 Ml Syringe) 3 ml IVFLUSH QSHIFT [facility] Last Admin: 10/29/23 10:14 Dose: 3 ml Documented By: GINGER Trazodone HCl (Trazodone Hcl 50 Mg Tablet) 50 mg PO BEDTIME PRN PRN Reason: Insomnia Labs 10/29/23 06:35 10/29/23 06:35 Labs: Laboratory Results - last 24 hr 10/28/23 10/28/23 10/28/23 16:21 18:02 20:48 MCV MCH MCHC RDW Plt Count MPV Immature Gran % (Auto) Neut % (Auto) Lymph % (Auto) [place] % (Auto) Eos % (Auto) Baso % (Auto) Lymph # (Auto) [place] # (Auto) Eos # (Auto) Baso # (Auto) Abs Immat Gran (auto) Absolute Neuts (auto) Absolute Nucleated RBC Nucleated RBC % (auto) Neutrophils % (Manual) Band Neutrophils % Lymphocytes % (Manual) Monocytes % (Manual) Metamyelocytes % Abs Neuts (Manual) Lymphocytes # (Manual) Monocytes # (Manual) Metamyelocytes # Platelet Estimate Plt Morphology Comment RBC Morphology Polychromasia Anion Gap 15 Estim Creat Clear Calc 231.0 Estimated GFR > 60 POC Glucose 266 H 260 H Random Glucose 296 H Calcium 8.4 Phosphorus 2.4 L Magnesium 2.1 10/29/23 10/29/23 10/29/23 06:35 07:25 11:40 MCV 85.7 MCH 27.8 MCHC 32.4 RDW 13.8 Plt Count 201 MPV 10.2 Immature Gran % (Auto) Cancelled Neut % (Auto) Cancelled Lymph % (Auto) Cancelled [place] % (Auto) Cancelled Eos % (Auto) Cancelled Baso % (Auto) Cancelled Lymph # (Auto) Cancelled [place] # (Auto) Cancelled Eos # (Auto) Cancelled Baso # (Auto) Cancelled Abs Immat Gran (auto) Cancelled Absolute Neuts (auto) Cancelled Absolute Nucleated RBC 0.000 Nucleated RBC % (auto) 0.0 Neutrophils % (Manual) 74 H Band Neutrophils % 1 L Lymphocytes % (Manual) 22 Monocytes % (Manual) 2 Metamyelocytes % 1 Abs Neuts (Manual) 6.2 Lymphocytes # (Manual) 1.8 Monocytes # (Manual) 0.2 Metamyelocytes # 0.1 Platelet Estimate NORMAL Plt Morphology Comment NORMAL RBC Morphology NOTED Polychromasia 1+ (0-2) Anion Gap 14 Estim Creat Clear Calc 227.6 Estimated GFR > 60 POC Glucose 263 H 221 H Random Glucose 278 H Calcium 8.6 Phosphorus 2.8 Magnesium 2.0 Microbiology Microbiology Results: Microbiology 10/24/23 07:43 Blood Culture - Final Blood - Venous No growth after 5 days. 10/24/23 07:43 Blood Culture - Final Blood - Venous No growth after 5 days. Assessment and Plan (1) Acute respiratory failure: Status: Acute (2) Asthma with status asthmaticus in adult: Status: Acute (3) Cellulitis of right lower leg: Status: Acute Plan A 33 Y F with obesity, hypertension, non-insulin dependent diabetes mellitus, asthma, factor V deficiency, and psychiatric comorbidities initially admitted psychiatric floor 09/07; hospital course c/b sepsis likely d/t lower extremity cellulitis; on 10/22, developed acute respiratory failure, admitted ICU, placed on BiPAP then high flow with good response. transferred to medical floor. Acute hypoxic respiratory failure 2/2 Sepsis from Pneumonia and fluid overload with suspected PE Multiple CTA which were inconclusive, started on Empirical AC on HFNC, wean down as tolerated to 35L:, 40% Continue antbiotics and steroids DC Lasix drip , Lasix 40mg IV bid monitor I\O Fact V Liden Def. Limited CTA with hypoxemia Empirical Lovenox for suspect CTA RLE Cellulitis Continue Ceftriaxone and Doxycycline local care, creams Type 2 DM Diabetic diet SSI Schizoaffective disorder Psych input appreciated; continue Lamictal and Valproate Zyprexa bid and prn Morbid obesity advised to lose weight Vaginal bleeding has period, on blood thinner DVT PPx Lovenox The patient will need overnight hospital stay while on high flow oxygen pending clinical improvement and weaning her off Highflow. Quality Stroke Does the patient have a stroke diagnosis?: No VTE Prior VTE?: Yes VTE Risk Level:: Medical - moderate - high VTE Device Contraindication: Treatment Not Indicated VTE Drug Contraindication: N/A - Med Ordered
--- NOTE | 2023-10-29 13:59 | MHC.CM.PN ---
MIRIAN MET WITH PTS MOTHER AT HER REQUEST SHE REPORTS SHE HAS A PICTURE OF THE PTS HCP AND COULD FAX IT TO MIRIAN VELA INFORMED HER THE SNF WOULD REQUIRE A COPY, IT CAN NOT BE A PICTURE OF THE DOCUMENT SHE WILL LOOK AT PTS HOME AND SEE IF SHE CAN FIND THE ORIGINAL
[2023-10-29 16:55] LABS: Glucose, Whole Blood 288 mg/dL (60-115)
[2023-10-29 19:50] LABS: Anion Gap 19 (12-20); Blood Urea Nitrogen 18 mg/dL (9-16); Calcium 9.4 mg/dL (8.4-10.2); Carbon Dioxide 28 mmol/L (22-29); Chloride 94 mmol/L (96-108); Estimated Glomerular Filt Rate > 60; Glucose Random 285 mg/dL (60-115); Potassium 4.1 mmol/L (3.3-5.1); Sodium 137 mmol/L (135-145)
[2023-10-29 21:27] LABS: Glucose, Whole Blood 204 mg/dL (60-115)
[2023-10-29] MEDS: Enoxaparin Sodium 150 MG/ML SYRINGE 300 MG SUBCUT (21:58)
[2023-10-29] MEDS: lamoTRIgine 25 MG TABLET PO (21:59)
[2023-10-30] VITALS (10 sets, daily range): BP systolic 117–136; BP diastolic 56–81; PULSE 60–83; RESP 16–22; TEMP 36.1–36.6; O2SAT 93–95
[2023-10-30 07:13] LABS: Glucose, Whole Blood 194 mg/dL (60-115)
[2023-10-30 07:24] LABS: MANUAL DIFF FLAG NO
[2023-10-30 07:38] LABS: Basophils Percent Auto 0.3 % (0-2); Eosinophils Absolute Auto 0.1 X10*3/uL (0.0-0.4); Eosinophils Percent Auto 0.4 % (0-4); Hematocrit 36.8 % (37.0-47.0); Hemoglobin 11.9 g/dl (12.0-16.0); Imm Gran Abs Auto 0.58 X10*3/uL (0.00-0.03); Imm Gran Pct Auto 4.1 % (0.0-0.4); Lymphocytes Absolute Auto 2.8 X10*3/uL (1.2-4.9); Lymphocytes Percent Auto 19.7 % (20-40); Mean Corpuscular HGB Conc 32.3 g/dl (31.0-35.0); Mean Corpuscular Hemoglobin 28.3 pg (27.0-33.0); Mean Corpuscular Volume 87.4 fL (80.0-98.0); Mean Platelet Volume 10.4 fL (9.4-12.3); Monocytes Absolute Auto 0.6 X10*3/uL (0.1-1.2); Monocytes Percent Auto 4.2 % (2-11); Neutrophils Absolute Auto 10.1 x10*3/uL (2.0-8.3); Neutrophils Percent Auto 71.3 % (45-73); Platelet Count 271 X10*3/uL (160-400); Red Blood Count 4.21 X10*6/uL (4.20-5.50); Red Cell Distribution Width 14.1 % (11.0-16.0); White Blood Count 14.2 X10*3/uL (4.8-10.8)
[2023-10-30 08:11] LABS: Anion Gap 18 (12-20); B Type Natriuretic Peptide 12 pg/mL (<100); Blood Urea Nitrogen 20 mg/dL (9-16); Calcium 9.6 mg/dL (8.4-10.2); Carbon Dioxide 31 mmol/L (22-29); Chloride 93 mmol/L (96-108); Creatinine Clr Calc Pharmacy 227.6; Estimated Glomerular Filt Rate > 60; Glucose Random 203 mg/dL (60-115); Potassium 3.9 mmol/L (3.3-5.1); Sodium 138 mmol/L (135-145)
[2023-10-30] MEDS: Doxycycline Monohydrate 100 MG CAPSULE PO ×2 (08:42→21:26)
[2023-10-30] MEDS: Insulin Lispro 100 UNIT/ML 3 ML VIAL SUBCUT ×4 (08:42→21:30)
[2023-10-30] MEDS: Divalproex Sodium Sprinkles 125 MG CAP.DR.SPR 1000 MG PO ×2 (08:42→21:26)
[2023-10-30] MEDS: Furosemide 40 MG/4 ML VIAL IVPUSH ×2 (08:42→17:27)
[2023-10-30] MEDS: Hydrocortisone 1 % Ointment 28.35 GM TUBE 1 APPL TOPICAL (08:43)
[2023-10-30] MEDS: OLANZapine ODT 10 MG TAB.RAPDIS 5 MG TRANSLINGU ×2 (08:43→21:24)
[2023-10-30] MEDS: cefTRIAXone sodium 2 GM in 0.9 % Sodium Chloride 50 ML IV (08:43)
[2023-10-30] MEDS: methylPREDNISolone Sod Succ 40 MG/ML VIAL IVPUSH ×2 (08:43→21:26)
[2023-10-30 11:11] LABS: Glucose, Whole Blood 206 mg/dL (60-115)
--- NOTE | 2023-10-30 11:20 | P.PNIM_ITS ---
Subjective Subjective Date of Service: 10/30/23 Interval History: Seen and evaluated this morning improving slowly less vaginal bleeding , stable H&H weaning down O2 supplement ; on 40,45% this morning Review of Systems Review of Systems: Yes all other systems are reviewed and are negative Physical Exam 2 Vital Signs: Vital Signs: Last Vital Signs Temp 97.5 F 10/30/23 11:18 Pulse 73 10/30/23 11:18 Resp 18 10/30/23 11:18 BP 135/81 10/30/23 11:18 Pulse Ox 95 10/30/23 11:18 O2 Del Method Nasal Cannula 10/30/23 11:18 O2 Flow Rate 4 10/30/23 11:18 FiO2 40 10/30/23 07:21 BMI result Body Mass Index 63.5 Const: Other: Constitutional : Awake, interactive, obese, in mild resp distress Neck : Normal inspection, Supple Cardiovascular : RRR, no JVP, no lower extremity edema Respiratory :fair bilateral air entry, decreased on basis with fine crackles, on high flow 40L, 45%. Gastrointestinal: soft, lax, Normal bowel sounds, Non tender Skin : Warm, Dry, small patch of erythema in the RLE near ankle. mild tenderness Neurological : Alert & oriented x3, No focal deficit Objective Data Active Medications Acetaminophen (Acetaminophen 325 Mg Tablet) 650 mg PO Q4H PRN PRN Reason: Fever >100.4 Last Admin: 10/28/23 05:17 Dose: 650 mg Documented By: NORBERT Atenolol (Atenolol 25 Mg Tablet) 25 mg PO DAILY [facility]; Protocol Last Admin: 10/24/23 07:30 Dose: 25 mg Documented By: HEATHER Dextrose (Dextrose 50 % 25 Gm/50 Ml Syringe) 25 gm IVPUSH Q15M PRN; Protocol PRN Reason: per Hypoglycemia Standing Ord. Divalproex Sodium (Divalproex Sodium Sprinkles 125 Mg ) 1,000 mg PO BID [facility] Last Admin: 10/30/23 08:42 Dose: 1,000 mg Documented By: ECTOR Docusate Sodium (Docusate Sodium 100 Mg Capsule) 100 mg PO DAILY PRN PRN Reason: Constipation Doxycycline Monohydrate (Doxycycline Monohydrate 100 Mg Capsule) 100 mg PO BID [facility] Last Admin: 10/30/23 08:42 Dose: 100 mg Documented By: ECTOR Enoxaparin Sodium (Enoxaparin Sodium 150 Mg/Ml Syringe) 300 mg SUBCUT Q24H [facility] Last Admin: 10/29/23 21:58 Dose: 300 mg Documented By: NORBERT Fluticasone Propionate (Fluticasone Propionate Nasal 16 Gm [place]) 1 spray NOSTRIL-B BID [facility] Last Admin: 10/30/23 08:43 Dose: Not Given Documented By: ECTOR Non-Admin Reason: Patient Refused Furosemide (Furosemide 40 Mg/4 Ml Vial) 40 mg IVPUSH BID@0900,1800 [facility]; Protocol Last Admin: 10/30/23 08:42 Dose: 40 mg Documented By: ECTOR Glucose (Glucose Gel 15 Gm Gel..Gram.) 15 gm PO Q15M PRN; Protocol PRN Reason: per Hypoglycemia Standing Ord. Hydrocortisone (Hydrocortisone 1 % Ointment 28.35 Gm Tube) 1 appl TOPICAL BID [facility]; Protocol Last Admin: 10/30/23 08:43 Dose: 1 appl Documented By: ECTOR Hydroxyzine HCl (Hydroxyzine Hcl 25 Mg Tablet) 25 mg PO Q6H PRN PRN Reason: Anxiety Last Admin: 10/28/23 05:17 Dose: 25 mg Documented By: NORBERT Ceftriaxone Sodium 2 gm/ (Sodium Chloride) 50 mls @ 100 mls/hr IV Q24H [facility] Last Infusion: 10/30/23 09:24 Dose: Infused Documented By: ECTOR Insulin Human Lispro (Insulin Lispro 100 Unit/Ml 3 Ml Vial) 0 unit SUBCUT QIDACHS [facility]; Protocol Last Admin: 10/30/23 08:42 Dose: 2 unit Documented By: ECTOR Lamotrigine (Lamotrigine 25 Mg Tablet) 25 mg PO BEDTIME [facility] Last Admin: 10/29/23 21:59 Dose: 25 mg Documented By: NORBERT Lidocaine (Lidocaine 4 % Patch Adh..Patch) 2 patch TRANSDERMA DAILY [facility]; Protocol Last Admin: 10/30/23 08:43 Dose: Not Given Documented By: ECTOR Non-Admin Reason: Patient Refused Magnesium Hydroxide (Milk Of Magnesia 30 Ml Oral.Susp) 30 ml PO DAILY PRN PRN Reason: Constipation Methylprednisolone Sodium Succinate (Methylprednisolone Sod Succ 40 Mg/Ml Vial) 40 mg IVPUSH Q12H [facility] Last Admin: 10/30/23 08:43 Dose: 40 mg Documented By: ECTOR Midazolam HCl (Midazolam Hcl/Pf 2 Mg/2 Ml Vial) 2 mg IVPUSH Q2H PRN PRN Reason: anxiety/restlessness Olanzapine (Olanzapine 5 Mg Tablet) 5 mg PO Q4H PRN PRN Reason: Psychosis Last Admin: 10/26/23 04:23 Dose: 5 mg Documented By: AMERICA Olanzapine (Olanzapine Odt 10 Mg Tab.Rapdis) 5 mg TRANSLINGU BID [facility] Last Admin: 10/30/23 08:43 Dose: 5 mg Documented By: ECTOR Sodium Chloride (0.9 % Sodium Chloride Flush 3 Ml Syringe) 3 ml IVFLUSH QSHIFT [facility] Last Admin: 10/30/23 07:25 Dose: Not Given Documented By: ECTOR Non-Admin Reason: See Note Trazodone HCl (Trazodone Hcl 50 Mg Tablet) 50 mg PO BEDTIME PRN PRN Reason: Insomnia Labs 10/30/23 06:46 10/30/23 06:46 Labs: Laboratory Results - last 24 hr 10/29/23 10/29/23 10/29/23 11:40 16:41 18:57 MCV MCH MCHC RDW Plt Count MPV Immature Gran % (Auto) Neut % (Auto) Lymph % (Auto) [place] % (Auto) Eos % (Auto) Baso % (Auto) Lymph # (Auto) [place] # (Auto) Eos # (Auto) Baso # (Auto) Abs Immat Gran (auto) Absolute Neuts (auto) Absolute Nucleated RBC Nucleated RBC % (auto) Hold Purple Top Cancelled Anion Gap 19 Estim Creat Clear Calc 215.0 Estimated GFR > 60 POC Glucose 221 H 288 H Random Glucose 285 H Calcium 9.4 D B-Natriuretic Peptide 10/29/23 10/30/23 10/30/23 21:23 06:46 07:04 MCV 87.4 MCH 28.3 MCHC 32.3 RDW 14.1 Plt Count 271 D MPV 10.4 Immature Gran % (Auto) 4.1 H Neut % (Auto) 71.3 Lymph % (Auto) 19.7 L [place] % (Auto) 4.2 Eos % (Auto) 0.4 Baso % (Auto) 0.3 Lymph # (Auto) 2.8 [place] # (Auto) 0.6 Eos # (Auto) 0.1 Baso # (Auto) 0.0 Abs Immat Gran (auto) 0.58 H Absolute Neuts (auto) 10.1 H Absolute Nucleated RBC 0.000 Nucleated RBC % (auto) 0.0 Hold Purple Top Anion Gap 18 Estim Creat Clear Calc 227.6 Estimated GFR > 60 POC Glucose 204 H 194 H Random Glucose 203 H Calcium 9.6 B-Natriuretic Peptide 12 10/30/23 11:02 MCV MCH MCHC RDW Plt Count MPV Immature Gran % (Auto) Neut % (Auto) Lymph % (Auto) [place] % (Auto) Eos % (Auto) Baso % (Auto) Lymph # (Auto) [place] # (Auto) Eos # (Auto) Baso # (Auto) Abs Immat Gran (auto) Absolute Neuts (auto) Absolute Nucleated RBC Nucleated RBC % (auto) Hold Purple Top Anion Gap Estim Creat Clear Calc Estimated GFR POC Glucose 206 H Random Glucose Calcium B-Natriuretic Peptide Microbiology Microbiology Results: Microbiology 10/24/23 07:43 Blood Culture - Final Blood - Venous No growth after 5 days. 10/24/23 07:43 Blood Culture - Final Blood - Venous No growth after 5 days. Assessment and Plan (1) Acute respiratory failure: Status: Acute (2) Cellulitis of right lower leg: Status: Acute Plan A 33 Y F with obesity, hypertension, non-insulin dependent diabetes mellitus, asthma, factor V deficiency, and psychiatric comorbidities initially admitted psychiatric floor 09/07; hospital course c/b sepsis likely d/t lower extremity cellulitis; on 10/22, developed acute respiratory failure, admitted ICU, placed on BiPAP then high flow with good response. transferred to medical floor. Acute hypoxic respiratory failure 2/2 Sepsis from Pneumonia and fluid overload with suspected PE Multiple CTA which were inconclusive, started on Empirical AC on HFNC, wean down as tolerated to 35L:, 40%, RT will continue to wean down Continue antbiotics and steroids DC Lasix drip , Lasix 40mg IV bid monitor I\O Fact V Liden Def. Limited CTA with hypoxemia Empirical Lovenox for suspect CTA RLE Cellulitis Continue Ceftriaxone and Doxycycline local care, creams apply MIGEL wrap Type 2 DM Diabetic diet SSI Schizoaffective disorder Psych input appreciated; continue Lamictal and Valproate Zyprexa bid and prn Morbid obesity advised to lose weight Vaginal bleeding has period, on blood thinner stable H&H DVT PPx Lovenox The patient will need overnight hospital stay while on high flow oxygen pending clinical improvement and weaning her off Highflow. Quality Stroke Does the patient have a stroke diagnosis?: No VTE Prior VTE?: Yes VTE Risk Level:: Medical - moderate - high VTE Device Contraindication: Treatment Not Indicated VTE Drug Contraindication: N/A - Med Ordered
[2023-10-30 16:46] LABS: Glucose, Whole Blood 230 mg/dL (60-115)
[2023-10-30] MEDS: 0.9 % Sodium Chloride Flush 3 ML SYRINGE IVFLUSH (17:27)
[2023-10-30 20:31] LABS: Glucose, Whole Blood 242 mg/dL (60-115)
[2023-10-30] MEDS: lamoTRIgine 25 MG TABLET PO (21:24)
[2023-10-30] MEDS: Enoxaparin Sodium 150 MG/ML SYRINGE 300 MG SUBCUT (21:26)
[2023-10-31] MEDS: 0.9 % Sodium Chloride Flush 3 ML SYRINGE IVFLUSH ×4 (00:03→20:46)
[2023-10-31 03:15] VITALS: BP 158/74; PULSE 69; RESP 18; TEMP 36; O2SAT 93
[2023-10-31 05:55] LABS: MANUAL DIFF FLAG NO
[2023-10-31 05:58] LABS: Basophils Percent Auto 0.3 % (0-2); Eosinophils Percent Auto 0.1 % (0-4); Hematocrit 38.8 % (37.0-47.0); Hematocrit 39.4 % (37.0-47.0); Hemoglobin 12.6 g/dl (12.0-16.0); Hemoglobin 12.7 g/dl (12.0-16.0); Imm Gran Abs Auto 0.44 X10*3/uL (0.00-0.03); Imm Gran Pct Auto 2.8 % (0.0-0.4); Lymphocytes Absolute Auto 2.5 X10*3/uL (1.2-4.9); Lymphocytes Percent Auto 15.5 % (20-40); Mean Corpuscular HGB Conc 32.7 g/dl (31.0-35.0); Mean Corpuscular Hemoglobin 27.7 pg (27.0-33.0); Mean Corpuscular Hemoglobin 27.8 pg (27.0-33.0); Mean Corpuscular Volume 84.9 fL (80.0-98.0); Mean Corpuscular Volume 86.6 fL (80.0-98.0); Mean Platelet Volume 10.3 fL (9.4-12.3); Mean Platelet Volume 10.4 fL (9.4-12.3); Monocytes Absolute Auto 0.6 X10*3/uL (0.1-1.2); Monocytes Percent Auto 3.7 % (2-11); Neutrophils Absolute Auto 12.4 x10*3/uL (2.0-8.3); Neutrophils Percent Auto 77.6 % (45-73); Platelet Count 260 X10*3/uL (160-400); Platelet Count 262 X10*3/uL (160-400); Red Blood Count 4.55 X10*6/uL (4.20-5.50); Red Blood Count 4.57 X10*6/uL (4.20-5.50); Red Cell Distribution Width 14.1 % (11.0-16.0); White Blood Count 16.2 X10*3/uL (4.8-10.8)
[2023-10-31 06:14] LABS: Anion Gap 18 (12-20); Blood Urea Nitrogen 27 mg/dL (9-16); Calcium 9.7 mg/dL (8.4-10.2); Carbon Dioxide 30 mmol/L (22-29); Chloride 93 mmol/L (96-108); Creatinine Clr Calc Pharmacy 221.1; Estimated Glomerular Filt Rate > 60; Glucose Random 233 mg/dL (60-115); Potassium 4.3 mmol/L (3.3-5.1); Sodium 137 mmol/L (135-145)
[2023-10-31 08:00] VITALS: BP 132/70; PULSE 60; RESP 20; TEMP 36.4; O2SAT 100
[2023-10-31 08:13] LABS: Glucose, Whole Blood 185 mg/dL (60-115)
[2023-10-31] MEDS: cefTRIAXone sodium 2 GM in 0.9 % Sodium Chloride 50 ML IV (09:30)
[2023-10-31] MEDS: methylPREDNISolone Sod Succ 40 MG/ML VIAL IVPUSH ×2 (09:31→20:44)
[2023-10-31] MEDS: Divalproex Sodium Sprinkles 125 MG CAP.DR.SPR 1000 MG PO ×2 (09:41→20:45)
[2023-10-31] MEDS: Furosemide 40 MG/4 ML VIAL IVPUSH (09:41)
[2023-10-31] MEDS: OLANZapine ODT 10 MG TAB.RAPDIS 5 MG TRANSLINGU ×2 (09:41→20:45)
[2023-10-31] MEDS: Insulin Lispro 100 UNIT/ML 3 ML VIAL SUBCUT ×4 (09:41→20:45)
[2023-10-31] MEDS: Doxycycline Monohydrate 100 MG CAPSULE PO ×2 (09:41→20:45)
[2023-10-31] MEDS: Lidocaine 4 % Patch ADH..PATCH 2 PATCH TRANSDERMA (09:42)
[2023-10-31] MEDS: Hydrocortisone 1 % Ointment 28.35 GM TUBE 1 APPL TOPICAL (09:43)
--- NOTE | 2023-10-31 09:55 | HO.PM.IMPN ---
Subjective Subjective Date of Service: 10/31/23 Interval History: Seen and evaluated this morning improving slowly Weaned down to 4L NC less vaginal bleeding , stable H&H no other issues overnight Review of Systems Review of Systems: Yes all other systems are reviewed and are negative Physical Exam Vital Signs: Vital Signs: Last Vital Signs Temp 97.5 F 10/31/23 08:00 Pulse 60 10/31/23 08:00 Resp 20 10/31/23 08:00 BP 132/70 10/31/23 08:00 Pulse Ox 100 10/31/23 08:00 O2 Del Method Nasal Cannula 10/31/23 08:00 O2 Flow Rate 4 10/31/23 08:00 FiO2 40 10/30/23 07:21 BMI result Body Mass Index 63.5 Const: Other: Constitutional : Awake, interactive, obese, in mild resp distress Neck : Normal inspection, Supple Cardiovascular : RRR, no JVP, no lower extremity edema Respiratory :fair bilateral air entry, decreased on basis with fine crackles, on NC Gastrointestinal: soft, lax, Normal bowel sounds, Non tender Skin : Warm, Dry, small patch of erythema in the RLE near ankle. no significant tenderness Neurological : Alert & oriented x3, No focal deficit Objective Data Active Medications Acetaminophen (Acetaminophen 325 Mg Tablet) 650 mg PO Q4H PRN PRN Reason: Fever >100.4 Last Admin: 10/28/23 05:17 Dose: 650 mg Documented By: NORBERT Atenolol (Atenolol 25 Mg Tablet) 25 mg PO DAILY [facility]; Protocol Last Admin: 10/24/23 07:30 Dose: 25 mg Documented By: HEATHER Dextrose (Dextrose 50 % 25 Gm/50 Ml Syringe) 25 gm IVPUSH Q15M PRN; Protocol PRN Reason: per Hypoglycemia Standing Ord. Divalproex Sodium (Divalproex Sodium Sprinkles 125 Mg ) 1,000 mg PO BID [facility] Last Admin: 10/31/23 09:41 Dose: 1,000 mg Documented By: GINGER Docusate Sodium (Docusate Sodium 100 Mg Capsule) 100 mg PO DAILY PRN PRN Reason: Constipation Doxycycline Monohydrate (Doxycycline Monohydrate 100 Mg Capsule) 100 mg PO BID [facility] Last Admin: 10/31/23 09:41 Dose: 100 mg Documented By: GINGER Enoxaparin Sodium (Enoxaparin Sodium 150 Mg/Ml Syringe) 300 mg SUBCUT Q24H [facility] Last Admin: 10/30/23 21:26 Dose: 300 mg Documented By: THOMAS Fluticasone Propionate (Fluticasone Propionate Nasal 16 Gm [place]) 1 spray NOSTRIL-B BID [facility] Last Admin: 10/31/23 09:42 Dose: Not Given Documented By: GINGER Non-Admin Reason: Patient Refused Furosemide (Furosemide 40 Mg/4 Ml Vial) 40 mg IVPUSH BID@0900,1800 [facility]; Protocol Last Admin: 10/31/23 09:41 Dose: 40 mg Documented By: GINGER Glucose (Glucose Gel 15 Gm Gel..Gram.) 15 gm PO Q15M PRN; Protocol PRN Reason: per Hypoglycemia Standing Ord. Hydrocortisone (Hydrocortisone 1 % Ointment 28.35 Gm Tube) 1 appl TOPICAL BID [facility]; Protocol Last Admin: 10/31/23 09:43 Dose: 1 appl Documented By: GINGER Hydroxyzine HCl (Hydroxyzine Hcl 25 Mg Tablet) 25 mg PO Q6H PRN PRN Reason: Anxiety Last Admin: 10/28/23 05:17 Dose: 25 mg Documented By: NORBERT Ceftriaxone Sodium 2 gm/ (Sodium Chloride) 50 mls @ 100 mls/hr IV Q24H [facility] Last Admin: 10/31/23 09:30 Dose: 100 mls/hr Documented By: GINGER Insulin Human Lispro (Insulin Lispro 100 Unit/Ml 3 Ml Vial) 0 unit SUBCUT QIDACHS [facility]; Protocol Last Admin: 10/31/23 09:41 Dose: 2 unit Documented By: GINGER Lamotrigine (Lamotrigine 25 Mg Tablet) 25 mg PO BEDTIME [facility] Last Admin: 10/30/23 21:24 Dose: 25 mg Documented By: THOMAS Lidocaine (Lidocaine 4 % Patch Adh..Patch) 2 patch TRANSDERMA DAILY [facility]; Protocol Last Admin: 10/31/23 09:42 Dose: 2 patch Documented By: GINGER Magnesium Hydroxide (Milk Of Magnesia 30 Ml Oral.Susp) 30 ml PO DAILY PRN PRN Reason: Constipation Methylprednisolone Sodium Succinate (Methylprednisolone Sod Succ 40 Mg/Ml Vial) 40 mg IVPUSH Q12H [facility] Last Admin: 10/31/23 09:31 Dose: 40 mg Documented By: GINGER Midazolam HCl (Midazolam Hcl/Pf 2 Mg/2 Ml Vial) 2 mg IVPUSH Q2H PRN PRN Reason: anxiety/restlessness Olanzapine (Olanzapine 5 Mg Tablet) 5 mg PO Q4H PRN PRN Reason: Psychosis Last Admin: 10/26/23 04:23 Dose: 5 mg Documented By: AMERICA Olanzapine (Olanzapine Odt 10 Mg Tab.Rapdis) 5 mg TRANSLINGU BID [facility] Last Admin: 10/31/23 09:41 Dose: 5 mg Documented By: GINGER Sodium Chloride (0.9 % Sodium Chloride Flush 3 Ml Syringe) 3 ml IVFLUSH QSHIFT [facility] Last Admin: 10/31/23 09:42 Dose: 3 ml Documented By: GINGER Trazodone HCl (Trazodone Hcl 50 Mg Tablet) 50 mg PO BEDTIME PRN PRN Reason: Insomnia Labs 10/31/23 05:24 10/31/23 05:23 Labs: Laboratory Results - last 24 hr 10/30/23 10/30/23 10/30/23 11:02 16:19 20:13 MCV MCH MCHC RDW Plt Count MPV Immature Gran % (Auto) Neut % (Auto) Lymph % (Auto) [place] % (Auto) Eos % (Auto) Baso % (Auto) Lymph # (Auto) [place] # (Auto) Eos # (Auto) Baso # (Auto) Abs Immat Gran (auto) Absolute Neuts (auto) Absolute Nucleated RBC Nucleated RBC % (auto) Anion Gap Estim Creat Clear Calc Estimated GFR POC Glucose 206 H 230 H 242 H Random Glucose Calcium 10/31/23 10/31/23 10/31/23 05:23 05:24 05:24 MCV 86.6 84.9 MCH 27.7 MCHC RDW Plt Count MPV Immature Gran % (Auto) Neut % (Auto) Lymph % (Auto) [place] % (Auto) Eos % (Auto) Baso % (Auto) Lymph # (Auto) [place] # (Auto) Eos # (Auto) Baso # (Auto) Abs Immat Gran (auto) Absolute Neuts (auto) Absolute Nucleated RBC Nucleated RBC % (auto) Anion Gap 18 Estim Creat Clear Calc 221.1 Estimated GFR > 60 POC Glucose Random Glucose 233 H Calcium 9.7 10/31/23 10/31/23 10/31/23 05:24 05:24 05:24 MCV MCH 27.8 MCHC 32.0 32.7 RDW 14.1 14.1 Plt Count 262 MPV Immature Gran % (Auto) Neut % (Auto) Lymph % (Auto) [place] % (Auto) Eos % (Auto) Baso % (Auto) Lymph # (Auto) [place] # (Auto) Eos # (Auto) Baso # (Auto) Abs Immat Gran (auto) Absolute Neuts (auto) Absolute Nucleated RBC Nucleated RBC % (auto) Anion Gap Estim Creat Clear Calc Estimated GFR POC Glucose Random Glucose Calcium 10/31/23 10/31/23 10/31/23 05:24 05:24 05:24 MCV MCH MCHC RDW Plt Count 260 MPV 10.4 10.3 Immature Gran % (Auto) 2.8 H Neut % (Auto) 77.6 H Lymph % (Auto) 15.5 L [place] % (Auto) 3.7 Eos % (Auto) 0.1 Baso % (Auto) 0.3 Lymph # (Auto) 2.5 [place] # (Auto) 0.6 Eos # (Auto) 0.0 Baso # (Auto) 0.0 Abs Immat Gran (auto) 0.44 H Absolute Neuts (auto) 12.4 H Absolute Nucleated RBC 0.000 0.000 Nucleated RBC % (auto) 0.0 Anion Gap Estim Creat Clear Calc Estimated GFR POC Glucose Random Glucose Calcium 10/31/23 10/31/23 05:24 07:39 MCV MCH MCHC RDW Plt Count MPV Immature Gran % (Auto) Neut % (Auto) Lymph % (Auto) [place] % (Auto) Eos % (Auto) Baso % (Auto) Lymph # (Auto) [place] # (Auto) Eos # (Auto) Baso # (Auto) Abs Immat Gran (auto) Absolute Neuts (auto) Absolute Nucleated RBC Nucleated RBC % (auto) 0.0 Anion Gap Estim Creat Clear Calc Estimated GFR POC Glucose 185 H Random Glucose Calcium Assessment and Plan (1) Acute respiratory failure: Status: Acute (2) Cellulitis of right lower leg: Status: Acute Plan A 33 Y F with obesity, hypertension, non-insulin dependent diabetes mellitus, asthma, factor V deficiency, and psychiatric comorbidities initially admitted psychiatric floor 09/07; hospital course c/b sepsis likely d/t lower extremity cellulitis; on 10/22, developed acute respiratory failure, admitted ICU, placed on BiPAP then high flow with good response. transferred to medical floor. Acute hypoxic respiratory failure 2/2 Sepsis from Pneumonia and fluid overload with suspected PE Multiple CTA which were inconclusive, started on Empirical AC Weaned down to 4L NC Continue antbiotics and steroids DC Lasix drip , Lasix 40mg IV bid monitor I\O Continue PT Fact V Liden Def. Limited CTA with hypoxemia Empirical Lovenox for suspect CTA RLE Cellulitis Continue Ceftriaxone and Doxycycline local care, creams apply MIGEL wrap Type 2 DM Diabetic diet SSI Schizoaffective disorder Psych input appreciated; continue Lamictal and Valproate Zyprexa bid and prn Morbid obesity advised to lose weight Vaginal bleeding has period, on blood thinner stable H&H DVT PPx Lovenox The patient will need overnight hospital stay while on Oxygen supplement pending clinical improvement and safe discharge plan Quality Stroke Does the patient have a stroke diagnosis?: No VTE Prior VTE?: Yes VTE Risk Level:: Medical - moderate - high VTE Device Contraindication: Treatment Not Indicated VTE Drug Contraindication: N/A - Med Ordered
--- NOTE | 2023-10-31 10:14 | MHC.CM.PN ---
Per ROUNDS discussion, Patient is not yet medically cleared for dc (weaning O2 and Sleep Study planned for tonight); PT is recommending STR and CM will continue to follow.
[2023-10-31 11:35] LABS: Glucose, Whole Blood 183 mg/dL (60-115)
[2023-10-31 11:54] VITALS: BP 129/65; PULSE 78; RESP 20; TEMP 36.3; O2SAT 94
--- NOTE | 2023-10-31 11:59 | HO.WOUND ---
Addendum entered by Cris Carballo RN 10/31/23 12:17: Topical Wound Care Recommendations: Bilateral Breast, ABD skin fold and Groin - Gently cleanse with Ph balanced soap and water, allow to dry - keep skin fold open to air to allow for tissue to completely dry. Apply Interdry Sheets to aid in translocating moisture. Be sure to leave two inch tail for moisture wicking away from skin fold. Right Breast - Cleanse with NS, pat dry. Cover open wounds with cut to size Hydrocolloid dressing change every three days. Lower Legs - Elevate Bilateral lower legs throughout the day on pillows. Apply Edema Wear Compression Stockings - Edema Wear compression garments should be applied first thing in the morning.? Hand wash and hang dry.? Stockings should be worn from the base of the toes to just below the knee.? Fold over at end to prevent rolling.? They are disposable after about 2 weeks or regular use. Original Note: Wound Consult: Follow up 33yr old?Female admitted to [facility] on 09/06/23 to the Behavioral Health Unit recently transferred to Medical Tele unit on 10/20/23 for Cellulitis and sepsis treatment. See progress notes and H&P for detailed history.? Wound consult follow up for Right Breast and skin folds in addition to bilateral Lower Leg edema. Patient agreeable to assessment and photo documentation.? Skin folds assessed and are clean without evidence of MASD or Fungal Dermaitis at this time. Interdry can be continued to be used for prevention. Right Breast area of Hidradenitis Suppurative within ski fold - partial thickness tissue loss no induration or erythema noted. Applied Hydrocolloid dressing. Can stay in palce for up to 7 days. Will recommend change every 3 days. The left abd fold was assessed- there is a small soft indurated red purple intact area of tissue - not consistent with Hidradenitis Suppurative - no open tissue at this time direct care team should watch for increased erythema and increased induration. The observed bilateral inner thighs and breast and axilla are noted for scarring and tract like old injury consistent with Hidradenitis Suppurative. . Bilateral Legs were assessed significant improvment noted redness continues to be noted on the right lower leg and dorsal foot. Tissue remains intact no open lesions left lower posterior leg has an area of thick dry epidermal layer inplace - may continue with topical ointments to soften dry skin. The left great toe and their toe wounds are scabbed and dry - no topical intervention needed at this time. Recommendation Outpatient follow up with Podiatry. Advised to elevate lower legs and Edema Wear compression socks applied - size large - patient will benefit from size medium current measurement of 55cm at this time. Right Breast Left Leg Left Toes Right Leg Right Posterior Lower Leg Edema wear compression stockings in place Topical Wound Care Recommendations 1. Bilateral Breast, ABD skin fold and Groin - Gently cleanse with Ph balanced soap and water, allow to dry - keep skin fold open to air to allow for tissue to completely dry. Apply Interdry Sheets to aid in translocating moisture. Be sure to leave two inch tail for moisture wicking away from skin fold. 2. Right Breast - Cleanse with NS, pat dry. Cover open wounds with cut to size Hydrocolloid dressing change every three days. Elevate Bilateral lower legs throughout the day on pillows. Apply Edema Wear Compression Stockings - Edema Wear compression garments should be applied first thing in the morning.? Hand wash and hang dry.? Stockings should be worn from the base of the toes to just below the knee.? Fold over at end to prevent rolling.? They are disposable after about 2 weeks or regular use. Re-consult wound care Nurse for wound deterioration or wound changes.
--- NOTE | 2023-10-31 15:27 | ECG_ITS ---
Test Reason : qtc check Blood Pressure : / mmHG Vent. Rate : 087 BPM Atrial Rate : 087 BPM P-R Int : 142 ms QRS Dur : 096 ms QT Int : 386 ms P-R-T Axes : 032 035 045 degrees QTc Int : 464 ms Normal sinus rhythm Normal EKG When compared with ECG of 28-OCT-2023 09:48, No significant change was found Referred By: Adina Walter Electronically Signed By:SATHYA CHAVES
[2023-10-31 15:42] LABS: Glucose, Whole Blood 275 mg/dL (60-115)
[2023-10-31 16:00] VITALS: BP 132/69; PULSE 82; RESP 20; TEMP 36.9; O2SAT 90
[2023-10-31 19:28] VITALS: BP 131/59; PULSE 84; RESP 17; TEMP 36.4; O2SAT 96
[2023-10-31 20:00] VITALS: BP 131/59; PULSE 69; RESP 17; TEMP 36.6; O2SAT 95
[2023-10-31 20:40] LABS: Glucose, Whole Blood 207 mg/dL (60-115)
[2023-10-31] MEDS: lamoTRIgine 25 MG TABLET PO (20:45)
[2023-11-01] MEDS: Enoxaparin Sodium 150 MG/ML SYRINGE 300 MG SUBCUT ×2 (00:35→20:58)
[2023-11-01 03:26] VITALS: BP 142/98; PULSE 87; RESP 20; TEMP 36.2; O2SAT 92
[2023-11-01 07:12] VITALS: BP 136/74; PULSE 87; RESP 16; TEMP 36; O2SAT 97
[2023-11-01 07:12] LABS: Glucose, Whole Blood 169 mg/dL (60-115)
[2023-11-01] MEDS: Divalproex Sodium Sprinkles 125 MG CAP.DR.SPR 1000 MG PO ×2 (08:01→21:00)
[2023-11-01] MEDS: OLANZapine ODT 10 MG TAB.RAPDIS 5 MG TRANSLINGU ×2 (08:01→20:59)
[2023-11-01] MEDS: Doxycycline Monohydrate 100 MG CAPSULE PO ×2 (08:01→20:59)
[2023-11-01] MEDS: Lidocaine 4 % Patch ADH..PATCH 2 PATCH TRANSDERMA (08:01)
[2023-11-01] MEDS: Insulin Lispro 100 UNIT/ML 3 ML VIAL SUBCUT ×4 (08:01→20:58)
[2023-11-01] MEDS: 0.9 % Sodium Chloride Flush 3 ML SYRINGE IVFLUSH ×3 (08:02→23:25)
[2023-11-01] MEDS: Furosemide 40 MG/4 ML VIAL IVPUSH (08:02)
[2023-11-01] MEDS: methylPREDNISolone Sod Succ 40 MG/ML VIAL IVPUSH (08:02)
[2023-11-01] MEDS: cefTRIAXone sodium 2 GM in 0.9 % Sodium Chloride 50 ML IV (08:02)
--- NOTE | 2023-11-01 10:12 | HO.PM.IMPN ---
Subjective Subjective Date of Service: 11/01/23 Interval History: Seen and evaluated this morning improving slowly Weaned down to 2L NC less reported vaginal bleeding , stable H&H no other issues overnight Review of Systems Review of Systems: Yes all other systems are reviewed and are negative Physical Exam Vital Signs: Vital Signs: Last Vital Signs Temp 96.8 F 11/01/23 07:12 Pulse 87 11/01/23 07:12 Resp 16 11/01/23 07:12 BP 136/74 11/01/23 07:12 Pulse Ox 97 11/01/23 07:12 O2 Del Method Nasal Cannula 11/01/23 07:12 O2 Flow Rate 2 11/01/23 07:12 FiO2 40 10/30/23 07:21 BMI result Body Mass Index 63.5 Const: Other: Constitutional : Awake, interactive, obese, in mild resp distress Neck : Normal inspection, Supple Cardiovascular : RRR, no JVP, no lower extremity edema Respiratory :fair bilateral air entry, decreased on basis with fine crackles, on NC Gastrointestinal: soft, lax, Normal bowel sounds, Non tender Skin : Warm, Dry, small patch of erythema in the RLE near ankle. no significant tenderness Neurological : Alert & oriented x3, No focal deficit Objective Data Active Medications Acetaminophen (Acetaminophen 325 Mg Tablet) 650 mg PO Q4H PRN PRN Reason: Fever >100.4 Last Admin: 10/28/23 05:17 Dose: 650 mg Documented By: NORBERT Atenolol (Atenolol 25 Mg Tablet) 25 mg PO DAILY [facility]; Protocol Last Admin: 10/24/23 07:30 Dose: 25 mg Documented By: HEATHER Dextrose (Dextrose 50 % 25 Gm/50 Ml Syringe) 25 gm IVPUSH Q15M PRN; Protocol PRN Reason: per Hypoglycemia Standing Ord. Divalproex Sodium (Divalproex Sodium Sprinkles 125 Mg ) 1,000 mg PO BID [facility] Last Admin: 11/01/23 08:01 Dose: 1,000 mg Documented By: MONET Docusate Sodium (Docusate Sodium 100 Mg Capsule) 100 mg PO DAILY PRN PRN Reason: Constipation Doxycycline Monohydrate (Doxycycline Monohydrate 100 Mg Capsule) 100 mg PO BID [facility] Last Admin: 11/01/23 08:01 Dose: 100 mg Documented By: MONET Enoxaparin Sodium (Enoxaparin Sodium 150 Mg/Ml Syringe) 300 mg SUBCUT Q24H [facility] Last Admin: 11/01/23 00:35 Dose: 300 mg Documented By: MARIA FERNANDA Fluticasone Propionate (Fluticasone Propionate Nasal 16 Gm [place]) 1 spray NOSTRIL-B BID [facility] Last Admin: 11/01/23 08:03 Dose: Not Given Documented By: MONET Non-Admin Reason: Patient Refused Furosemide (Furosemide 40 Mg Tablet) 40 mg PO DAILY [facility]; Protocol Last Admin: 11/01/23 09:11 Dose: Not Given Documented By: MONET Non-Admin Reason: Previously Administered Glucose (Glucose Gel 15 Gm Gel..Gram.) 15 gm PO Q15M PRN; Protocol PRN Reason: per Hypoglycemia Standing Ord. Hydrocortisone (Hydrocortisone 1 % Ointment 28.35 Gm Tube) 1 appl TOPICAL BID [facility]; Protocol Last Admin: 11/01/23 08:03 Dose: Not Given Documented By: MONET Non-Admin Reason: Patient Refused Hydroxyzine HCl (Hydroxyzine Hcl 25 Mg Tablet) 25 mg PO Q6H PRN PRN Reason: Anxiety Last Admin: 10/28/23 05:17 Dose: 25 mg Documented By: NORBERT Ceftriaxone Sodium 2 gm/ (Sodium Chloride) 50 mls @ 100 mls/hr IV Q24H [facility] Last Infusion: 11/01/23 08:52 Dose: Infused Documented By: MONET Insulin Human Lispro (Insulin Lispro 100 Unit/Ml 3 Ml Vial) 0 unit SUBCUT QIDACHS [facility]; Protocol Last Admin: 11/01/23 08:01 Dose: 2 unit Documented By: MONET Lamotrigine (Lamotrigine 25 Mg Tablet) 25 mg PO BEDTIME [facility] Last Admin: 10/31/23 20:45 Dose: 25 mg Documented By: MARIA FERNANDA Lidocaine (Lidocaine 4 % Patch Adh..Patch) 2 patch TRANSDERMA DAILY [facility]; Protocol Last Admin: 11/01/23 08:01 Dose: 2 patch Documented By: MONET Magnesium Hydroxide (Milk Of Magnesia 30 Ml Oral.Susp) 30 ml PO DAILY PRN PRN Reason: Constipation Olanzapine (Olanzapine 5 Mg Tablet) 5 mg PO Q4H PRN PRN Reason: Psychosis Last Admin: 10/26/23 04:23 Dose: 5 mg Documented By: AMERICA Olanzapine (Olanzapine Odt 10 Mg Tab.Rapdis) 5 mg TRANSLINGU BID [facility] Last Admin: 11/01/23 08:01 Dose: 5 mg Documented By: MONET Prednisone (Prednisone 20 Mg Tablet) 40 mg PO DAILY [facility] Last Admin: 11/01/23 09:11 Dose: Not Given Documented By: MONET Non-Admin Reason: Previously Administered Sodium Chloride (0.9 % Sodium Chloride Flush 3 Ml Syringe) 3 ml IVFLUSH QSHIFT [facility] Last Admin: 11/01/23 08:02 Dose: 3 ml Documented By: MONET Trazodone HCl (Trazodone Hcl 50 Mg Tablet) 50 mg PO BEDTIME PRN PRN Reason: Insomnia Labs 10/31/23 05:24 10/31/23 05:23 Labs: Laboratory Results - last 24 hr 10/31/23 10/31/23 10/31/23 11:03 15:38 20:26 POC Glucose 183 H 275 H 207 H 11/01/23 07:09 POC Glucose 169 H Assessment and Plan (1) Acute respiratory failure: Status: Acute (2) Fever of unknown origin: Status: Acute (3) Asthma with status asthmaticus in adult: Status: Acute Plan A 33 Y F with obesity, hypertension, non-insulin dependent diabetes mellitus, asthma, factor V deficiency, and psychiatric comorbidities initially admitted psychiatric floor 09/07; hospital course c/b sepsis likely d/t lower extremity cellulitis; on 10/22, developed acute respiratory failure, admitted ICU, placed on BiPAP then high flow with good response. transferred to medical floor. Acute hypoxic respiratory failure 2/2 Sepsis from Pneumonia and fluid overload with suspected PE Multiple CTA which were inconclusive, started on Empirical AC Weaned down to 2L NC Change antbiotics and steroids to PO DC Lasix 40mg IV, change to PO lasix monitor I\O Continue PT Fact V Liden Def. 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 on Empirical Lovenox for suspect CTA RLE Cellulitis Continue Keflex and Doxycycline local care, creams apply MIGEL wrap Type 2 DM Diabetic diet SSI Schizoaffective disorder Psych input appreciated; continue Lamictal and Valproate Zyprexa bid and prn Morbid obesity advised to lose weight Vaginal bleeding has period, on blood thinner stable H&H DVT PPx Lovenox The patient will need overnight hospital stay while on Oxygen supplement pending clinical improvement and safe discharge plan Quality Stroke Does the patient have a stroke diagnosis?: No VTE Prior VTE?: Yes VTE Risk Level:: Medical - moderate - high VTE Device Contraindication: Treatment Not Indicated VTE Drug Contraindication: N/A - Med Ordered
[2023-11-01] MEDS: cephALEXin 500 MG CAPSULE PO ×2 (10:48→20:59)
[2023-11-01 11:00] LABS: Glucose, Whole Blood 209 mg/dL (60-115)
--- NOTE | 2023-11-01 11:11 | MHC.CM.PN ---
pts mother is bringing in hcp
[2023-11-01 15:14] VITALS: BP 130/59; PULSE 95; RESP 24; TEMP 36.4; O2SAT 92
[2023-11-01 16:24] LABS: Glucose, Whole Blood 242 mg/dL (60-115)
[2023-11-01 19:57] VITALS: BP 131/70; PULSE 80; RESP 19; TEMP 36.1; O2SAT 93
[2023-11-01 20:26] LABS: Glucose, Whole Blood 186 mg/dL (60-115)
[2023-11-01] MEDS: lamoTRIgine 25 MG TABLET PO (20:59)
[2023-11-01] MEDS: Hydrocortisone 1 % Ointment 28.35 GM TUBE 1 APPL TOPICAL (21:10)
[2023-11-02 02:54] VITALS: BP 128/62; PULSE 86; RESP 19; TEMP 36.7; O2SAT 99
[2023-11-02 05:37] LABS: Hematocrit 39.6 % (37.0-47.0); Mean Corpuscular HGB Conc 32.8 g/dl (31.0-35.0); Mean Corpuscular Hemoglobin 27.9 pg (27.0-33.0); Mean Platelet Volume 10.2 fL (9.4-12.3); Platelet Count 205 X10*3/uL (160-400); Red Blood Count 4.66 X10*6/uL (4.20-5.50); Red Cell Distribution Width 14.1 % (11.0-16.0); White Blood Count 11.1 X10*3/uL (4.8-10.8)
[2023-11-02 05:52] LABS: Anion Gap 17 (12-20); Blood Urea Nitrogen 29 mg/dL (9-16); Calcium 9.5 mg/dL (8.4-10.2); Carbon Dioxide 30 mmol/L (22-29); Chloride 97 mmol/L (96-108); Creatinine Clr Calc Pharmacy 227.6; Estimated Glomerular Filt Rate > 60; Glucose Random 135 mg/dL (60-115); Potassium 3.6 mmol/L (3.3-5.1); Sodium 140 mmol/L (135-145)
[2023-11-02 07:37] LABS: Glucose, Whole Blood 126 mg/dL (60-115)
[2023-11-02 07:39] VITALS: BP 140/64; PULSE 85; RESP 12; TEMP 36.1; O2SAT 99
[2023-11-02] MEDS: Divalproex Sodium Sprinkles 125 MG CAP.DR.SPR 1000 MG PO ×2 (08:53→20:34)
[2023-11-02] MEDS: Doxycycline Monohydrate 100 MG CAPSULE PO (08:54)
[2023-11-02] MEDS: OLANZapine ODT 10 MG TAB.RAPDIS 5 MG TRANSLINGU ×2 (08:54→20:32)
[2023-11-02] MEDS: predniSONE 20 MG TABLET 40 MG PO (08:54)
[2023-11-02] MEDS: Furosemide 40 MG TABLET PO (08:55)
[2023-11-02] MEDS: Hydrocortisone 1 % Ointment 28.35 GM TUBE 1 APPL TOPICAL ×2 (08:55→20:51)
[2023-11-02] MEDS: Lidocaine 4 % Patch ADH..PATCH 2 PATCH TRANSDERMA (09:04)
--- NOTE | 2023-11-02 10:12 | HO.PM.IMPN ---
Subjective Subjective Date of Service: 11/02/23 Interval History: imprvoing Physical Exam Vital Signs: Vital Signs: Last Vital Signs Temp 96.9 F 11/02/23 07:39 Pulse 85 11/02/23 07:39 Resp 12 11/02/23 07:39 BP 140/64 H 11/02/23 07:39 Pulse Ox 99 11/02/23 07:39 O2 Del Method Nasal Cannula 11/02/23 07:39 O2 Flow Rate 2 11/02/23 07:39 FiO2 40 10/30/23 07:21 BMI result Body Mass Index 63.5 General: AO X 3, no acute distress Resp: distant breath sounds bilateral, no accessory muscles used CVS: S1,S2,RRR GI: soft, non tender, non distended Neuro: motor grossly intact, alert skin: bilateral lymphedema improved, erythema improved, copmression in place Objective Data Active Medications Acetaminophen (Acetaminophen 325 Mg Tablet) 650 mg PO Q4H PRN PRN Reason: Fever >100.4 Last Admin: 10/28/23 05:17 Dose: 650 mg Documented By: NORBERT Apixaban (Apixaban 5 Mg Tablet) 5 mg PO BID [facility] Atenolol (Atenolol 25 Mg Tablet) 25 mg PO DAILY [facility]; Protocol Last Admin: 10/24/23 07:30 Dose: 25 mg Documented By: HEATHER Cephalexin HCl (Cephalexin 500 Mg Capsule) 500 mg PO Q12H [facility] Last Admin: 11/01/23 20:59 Dose: 500 mg Documented By: ARMIDA Dextrose (Dextrose 50 % 25 Gm/50 Ml Syringe) 25 gm IVPUSH Q15M PRN; Protocol PRN Reason: per Hypoglycemia Standing Ord. Divalproex Sodium (Divalproex Sodium Sprinkles 125 Mg ) 1,000 mg PO BID [facility] Last Admin: 11/02/23 08:53 Dose: 1,000 mg Documented By: JENNIFER Docusate Sodium (Docusate Sodium 100 Mg Capsule) 100 mg PO DAILY PRN PRN Reason: Constipation Doxycycline Monohydrate (Doxycycline Monohydrate 100 Mg Capsule) 100 mg PO BID [facility] Last Admin: 11/02/23 08:54 Dose: 100 mg Documented By: JENNIFER Fluticasone Propionate (Fluticasone Propionate Nasal 16 Gm [place]) 1 spray NOSTRIL-B BID [facility] Last Admin: 11/02/23 09:01 Dose: Not Given Documented By: JENNIFER Non-Admin Reason: Patient Refused Furosemide (Furosemide 40 Mg Tablet) 40 mg PO DAILY [facility]; Protocol Last Admin: 11/02/23 08:55 Dose: 40 mg Documented By: JENNIFER Glucose (Glucose Gel 15 Gm Gel..Gram.) 15 gm PO Q15M PRN; Protocol PRN Reason: per Hypoglycemia Standing Ord. Hydrocortisone (Hydrocortisone 1 % Ointment 28.35 Gm Tube) 1 appl TOPICAL BID [facility]; Protocol Last Admin: 11/02/23 08:55 Dose: 1 appl Documented By: JENNIFER Hydroxyzine HCl (Hydroxyzine Hcl 25 Mg Tablet) 25 mg PO Q6H PRN PRN Reason: Anxiety Last Admin: 10/28/23 05:17 Dose: 25 mg Documented By: NORBERT Insulin Human Lispro (Insulin Lispro 100 Unit/Ml 3 Ml Vial) 0 unit SUBCUT QIDACHS [facility]; Protocol Last Admin: 11/02/23 07:44 Dose: Not Given Documented By: ECTOR Non-Admin Reason: See Note Lamotrigine (Lamotrigine 25 Mg Tablet) 25 mg PO BEDTIME [facility] Last Admin: 11/01/23 20:59 Dose: 25 mg Documented By: ARMIDA Lidocaine (Lidocaine 4 % Patch Adh..Patch) 2 patch TRANSDERMA DAILY [facility]; Protocol Last Admin: 11/02/23 09:04 Dose: 2 patch Documented By: JENNIFER Magnesium Hydroxide (Milk Of Magnesia 30 Ml Oral.Susp) 30 ml PO DAILY PRN PRN Reason: Constipation Olanzapine (Olanzapine 5 Mg Tablet) 5 mg PO Q4H PRN PRN Reason: Psychosis Last Admin: 10/26/23 04:23 Dose: 5 mg Documented By: AMERICA Olanzapine (Olanzapine Odt 10 Mg Tab.Rapdis) 5 mg TRANSLINGU BID [facility] Last Admin: 11/02/23 08:54 Dose: 5 mg Documented By: JENNIFER Prednisone (Prednisone 20 Mg Tablet) 40 mg PO DAILY [facility] Last Admin: 11/02/23 08:54 Dose: 40 mg Documented By: HO.S-RACIA Sodium Chloride (0.9 % Sodium Chloride Flush 3 Ml Syringe) 3 ml IVFLUSH QSHIFT [facility] Last Admin: 11/02/23 07:44 Dose: Not Given Documented By: ECTOR Non-Admin Reason: See Note Trazodone HCl (Trazodone Hcl 50 Mg Tablet) 50 mg PO BEDTIME PRN PRN Reason: Insomnia Labs 11/02/23 05:16 11/02/23 05:16 Labs: Laboratory Results - last 24 hr 11/01/23 11/01/23 11/01/23 10:56 16:18 20:22 MCV MCH MCHC RDW Plt Count MPV Absolute Nucleated RBC Nucleated RBC % (auto) Anion Gap Estim Creat Clear Calc Estimated GFR POC Glucose 209 H 242 H 186 H Random Glucose Calcium 11/02/23 11/02/23 05:16 07:34 MCV 85.0 MCH 27.9 MCHC 32.8 RDW 14.1 Plt Count 205 MPV 10.2 Absolute Nucleated RBC 0.000 Nucleated RBC % (auto) 0.0 Anion Gap 17 Estim Creat Clear Calc 227.6 Estimated GFR > 60 POC Glucose 126 H Random Glucose 135 H Calcium 9.5 Assessment and Plan (1) Acute respiratory failure: Status: Acute (2) Fever of unknown origin: Status: Acute (3) Asthma with status asthmaticus in adult: Status: Acute Plan 33F PMH morbid obesity, hypertension, non-insulin dependent diabetes mellitus, mild intermittent asthma, factor V deficiency not on AC, and psychiatric comorbidities initially admitted psychiatric floor 09/07; hospital course c/b sepsis d/t right lower extremity cellulitis; on 10/22, developed acute respiratory failure, admitted ICU, placed on BiPAP then high flow with good response. transferred to medical floor. Sepsis due to RLE cellulitis in due to bilateral lymphedema and poor hygeine sepsis resolved completed course of antibiotics continue local care for lymphedema Acute hypoxic respiratory failure secondary to mild intermittent asthma with acute decopmensation and aspiration pneumonitis doubt fluid overload (heart hyperdynamic on bedside echo), doubt pe with negative CTA now on 2L, continue to wean prednisone 40mg daily Fact V Liden Def. with possible PE (negative studies) changed to apixiban Type 2 DM Diabetic diet SSI Schizoaffective disorder Psych input appreciated; continue Lamictal and Valproate Zyprexa bid and prn Morbid obesity advised to lose weight Vaginal bleeding has period, on blood thinner stable H&H DVT PPx eliquis full code reason for continued hospitalization:safe dispo Quality Stroke Does the patient have a stroke diagnosis?: No VTE Prior VTE?: Yes VTE Risk Level:: Medical - moderate - high VTE Device Contraindication: Treatment Not Indicated VTE Drug Contraindication: N/A - Med Ordered
[2023-11-02 10:50] LABS: Glucose, Whole Blood 164 mg/dL (60-115)
[2023-11-02] MEDS: Insulin Lispro 100 UNIT/ML 3 ML VIAL SUBCUT ×3 (11:06→20:34)
[2023-11-02 15:05] VITALS: BP 129/59; PULSE 105; RESP 18; TEMP 36.1; O2SAT 94
--- NOTE | 2023-11-02 15:40 | MHC.CM.BRN ---
pt accepted at [facility],level 1 submitted by blanca gutierrez to do level 2 screening on site
[2023-11-02 16:34] LABS: Glucose, Whole Blood 273 mg/dL (60-115)
[2023-11-02 19:16] VITALS: BP 116/56; PULSE 87; RESP 16; TEMP 36.5
[2023-11-02 20:07] LABS: Glucose, Whole Blood 198 mg/dL (60-115)
[2023-11-02] MEDS: lamoTRIgine 25 MG TABLET PO (20:33)
[2023-11-02] MEDS: Apixaban 5 MG TABLET PO (20:33)
[2023-11-02] MEDS: 0.9 % Sodium Chloride Flush 3 ML SYRINGE IVFLUSH (20:39)
[2023-11-02] MEDS: Fluticasone Propionate Nasal 16 GM SPRAY 1 SPRAY NOSTRIL-B (20:51)
--- NOTE | 2023-11-03 00:54 | PC.RT ---
Pt refused CPAP
[2023-11-03 04:00] VITALS: BP 139/63; PULSE 76; RESP 16; TEMP 36; O2SAT 99
--- NOTE | 2023-11-03 05:46 | PC.NURSE ---
pt desat. 83% with 1L, back up to 2L of O2 99%, RT bring the cpap but pt refused to wear. provided incontinent total care. will cont. monitor.
[2023-11-03 07:16] LABS: Glucose, Whole Blood 126 mg/dL (60-115)
[2023-11-03 07:17] VITALS: BP 142/82; PULSE 86; RESP 14; TEMP 36.1; O2SAT 99
--- NOTE | 2023-11-03 08:10 | P.PNIM_ITS ---
Subjective Subjective Date of Service: 11/03/23 Interval History: no complaints Physical Exam 2 Vital Signs: Vital Signs: Last Vital Signs Temp 97.0 F 11/03/23 07:17 Pulse 86 11/03/23 07:17 Resp 14 11/03/23 07:17 BP 142/82 H 11/03/23 07:17 Pulse Ox 99 11/03/23 07:17 O2 Del Method Nasal Cannula 11/03/23 07:17 O2 Flow Rate 2 11/03/23 07:17 FiO2 40 10/30/23 07:21 BMI result Body Mass Index 63.5 General: AO X 3, no acute distress Resp: distant breath sounds bilateral, no accessory muscles used CVS: S1,S2,RRR GI: soft, non tender, non distended Neuro: motor grossly intact, alert skin: bilateral lymphedema improved, erythema improved, copmression in place Objective Data Active Medications Acetaminophen (Acetaminophen 325 Mg Tablet) 650 mg PO Q4H PRN PRN Reason: Fever >100.4 Last Admin: 10/28/23 05:17 Dose: 650 mg Documented By: NORBERT Apixaban (Apixaban 5 Mg Tablet) 5 mg PO BID [facility] Last Admin: 11/02/23 20:33 Dose: 5 mg Documented By: AURELIA Atenolol (Atenolol 25 Mg Tablet) 25 mg PO DAILY [facility]; Protocol Last Admin: 10/24/23 07:30 Dose: 25 mg Documented By: HEATHER Dextrose (Dextrose 50 % 25 Gm/50 Ml Syringe) 25 gm IVPUSH Q15M PRN; Protocol PRN Reason: per Hypoglycemia Standing Ord. Divalproex Sodium (Divalproex Sodium Sprinkles 125 Mg ) 1,000 mg PO BID [facility] Last Admin: 11/02/23 20:34 Dose: 1,000 mg Documented By: AURELIA Docusate Sodium (Docusate Sodium 100 Mg Capsule) 100 mg PO DAILY PRN PRN Reason: Constipation Fluticasone Propionate (Fluticasone Propionate Nasal 16 Gm [place]) 1 spray NOSTRIL-B BID [facility] Last Admin: 11/02/23 20:51 Dose: 1 spray Documented By: AURELIA Furosemide (Furosemide 40 Mg Tablet) 40 mg PO DAILY [facility]; Protocol Last Admin: 11/02/23 08:55 Dose: 40 mg Documented By: JENNIFER Glucose (Glucose Gel 15 Gm Gel..Gram.) 15 gm PO Q15M PRN; Protocol PRN Reason: per Hypoglycemia Standing Ord. Hydrocortisone (Hydrocortisone 1 % Ointment 28.35 Gm Tube) 1 appl TOPICAL BID [facility]; Protocol Last Admin: 11/02/23 20:51 Dose: 1 appl Documented By: AURELIA Hydroxyzine HCl (Hydroxyzine Hcl 25 Mg Tablet) 25 mg PO Q6H PRN PRN Reason: Anxiety Last Admin: 10/28/23 05:17 Dose: 25 mg Documented By: NORBERT Insulin Human Lispro (Insulin Lispro 100 Unit/Ml 3 Ml Vial) 0 unit SUBCUT QIDACHS [facility]; Protocol Last Admin: 11/03/23 07:51 Dose: Not Given Documented By: TESS Non-Admin Reason: No Insulin Coverage Lamotrigine (Lamotrigine 25 Mg Tablet) 25 mg PO BEDTIME [facility] Last Admin: 11/02/23 20:33 Dose: 25 mg Documented By: AURELIA Lidocaine (Lidocaine 4 % Patch Adh..Patch) 2 patch TRANSDERMA DAILY [facility]; Protocol Last Admin: 11/02/23 09:04 Dose: 2 patch Documented By: JENNIFER Magnesium Hydroxide (Milk Of Magnesia 30 Ml Oral.Susp) 30 ml PO DAILY PRN PRN Reason: Constipation Olanzapine (Olanzapine 5 Mg Tablet) 5 mg PO Q4H PRN PRN Reason: Psychosis Last Admin: 10/26/23 04:23 Dose: 5 mg Documented By: AMERICA Olanzapine (Olanzapine Odt 10 Mg Tab.Rapdis) 5 mg TRANSLINGU BID [facility] Last Admin: 11/02/23 20:32 Dose: 5 mg Documented By: AURELIA Prednisone (Prednisone 20 Mg Tablet) 40 mg PO DAILY [facility] Last Admin: 11/02/23 08:54 Dose: 40 mg Documented By: JENNIFER Sodium Chloride (0.9 % Sodium Chloride Flush 3 Ml Syringe) 3 ml IVFLUSH QSHIFT [facility] Last Admin: 11/02/23 20:39 Dose: 3 ml Documented By: AURELIA Trazodone HCl (Trazodone Hcl 50 Mg Tablet) 50 mg PO BEDTIME PRN PRN Reason: Insomnia Labs 11/02/23 05:16 11/02/23 05:16 Labs: Laboratory Results - last 24 hr 11/02/23 11/02/23 11/02/23 10:46 16:30 20:02 POC Glucose 164 H 273 H 198 H 11/03/23 07:12 POC Glucose 126 H Assessment and Plan (1) Acute respiratory failure: Status: Acute (2) Fever of unknown origin: Status: Acute (3) Asthma with status asthmaticus in adult: Status: Acute Plan 33F PMH morbid obesity, hypertension, non-insulin dependent diabetes mellitus, mild intermittent asthma, factor V deficiency not on AC, and psychiatric comorbidities initially admitted psychiatric floor 09/07; hospital course c/b sepsis d/t right lower extremity cellulitis; on 10/22, developed acute respiratory failure, admitted ICU, placed on BiPAP then high flow with good response. transferred to medical floor. Sepsis due to RLE cellulitis in due to bilateral lymphedema and poor hygeine sepsis resolved completed course of antibiotics continue local care for lymphedema Acute hypoxic respiratory failure secondary to mild intermittent asthma with acute decopmensation and aspiration pneumonitis doubt fluid overload (heart hyperdynamic on bedside echo), doubt pe with negative CTA now on 2L, continue to wean prednisone 40mg daily - continue to taper Fact V Liden Def. with possible PE (negative studies) changed to apixiban Type 2 DM Diabetic diet SSI Schizoaffective disorder Psych input appreciated; continue Lamictal and Valproate Zyprexa bid and prn Morbid obesity advised to lose weight Vaginal bleeding stable H&H DVT PPx eliquis full code reason for continued hospitalization:safe dispo Quality Stroke Does the patient have a stroke diagnosis?: No VTE Prior VTE?: Yes VTE Risk Level:: Medical - moderate - high VTE Device Contraindication: Treatment Not Indicated VTE Drug Contraindication: N/A - Med Ordered
[2023-11-03] MEDS: predniSONE 20 MG TABLET 40 MG PO (08:40)
[2023-11-03] MEDS: OLANZapine ODT 10 MG TAB.RAPDIS 5 MG TRANSLINGU (08:40)
[2023-11-03] MEDS: Furosemide 40 MG TABLET PO (08:40)
[2023-11-03] MEDS: Lidocaine 4 % Patch ADH..PATCH 2 PATCH TRANSDERMA (08:40)
[2023-11-03] MEDS: Apixaban 5 MG TABLET PO (08:40)
[2023-11-03] MEDS: Divalproex Sodium Sprinkles 125 MG CAP.DR.SPR 1000 MG PO (08:40)
[2023-11-03] MEDS: 0.9 % Sodium Chloride Flush 3 ML SYRINGE IVFLUSH (08:41)
[2023-11-03] MEDS: Hydrocortisone 1 % Ointment 28.35 GM TUBE 1 APPL TOPICAL (08:42)
[2023-11-03 11:27] LABS: Glucose, Whole Blood 136 mg/dL (60-115)
--- NOTE | 2023-11-03 12:45 | W.MHC.F2F ---
Service Date Service Date: 11/03/23 Encounter Date of encounter: 11/03/23 Reasons for Services Signs and symptoms assessed: weakness, prolonged hospitalization Reason for usp: wound care (Topical Wound Care Recommendations: Bilateral Breast, ABD skin fold and Groin - Gently cleanse with Ph balanced soap and water, allow to dry - keep skin fold open to air to allow for tissue to completely dry. Apply Interdry Sheets to aid in translocating moisture. Be sure to leave two inch tail ), medication management, medication treatment, teach disease management and other (psych assessment) Reason for physical therapy: home safety and mobility and therapeutic exercises Reason for occupational therapy: home safety and mobility and therapeutic exercises Homebound: Leaving the home is medically contraindicated at this time without the asist of a device and/or another person due th the listed conditions above and below. Reason homebound: unsteady gait / fall risk Certification: Based on the above findings, I certify that this patient is confined to the home and needs intermittent usp care, physical therapy and/or speech therapy, or continues to need occupational therapy. The patient is under my care, and I have initiated the establishment of the plan of care. The patient will be followed by a physician who will periodically review the plan of care. Time Spent With Patient Time: Total time managing care of this patient today ____ minutes.
--- NOTE | 2023-11-03 12:46 | P.DS_ITS ---
DS: Providers Provider Date of Service: 11/03/23 Date of admission: 10/20/23 14:23 Primary care physician: Jose Estes MD Consults: 10/21/23 04:04 Consult to Infectious Diseases Routine [place]ing [place] [facility] [place] Reason for consultation: Sepsis, bacteremia 10/25/23 07:57 Consult to Psychiatry Routine Consulting Provider: Psych Covering Reason for consultation: Intermittent Agitation Has provider been notified: No DS: Diagnosis Discharge Diagnosis (1) Acute respiratory failure: Status: Acute (2) Fever of unknown origin: Status: Acute (3) Asthma with status asthmaticus in adult: Status: Acute DS: Summary Hospital Course Hospital Course: from initial hpi: 33-year-old female with a PMH significant for diet controlled diabetes type 2, HTN, HLD, factor 5 deficiency, seasonal asthma, obesity class 3, and bipolar disorder with multiple inpatient psych hospitalizations who was initially admitted to [facility] psychiatry unit on 09/07/2022 for acute brendon, disinhibition, sexual preoccupation and inability to modulate her affect. Pt had apparently not been taking her medications at home. During her current hospitalization pt has been seen multiple times by the medical team for various issues, including left toe cellulitis, uncontrolled HTN, and lower leg edema; pt has been seen by medicine for the past three days for consults. Has also been seen by wound care for fungal dermatitis under breasts and in skin folds. Medical consult placed today for worsening right lower extremities and clinical deterioration. Patient has spiked a fever of 101.5 earlier today, was tachycardic up to 140s, and tachypneic up to 24. Labs were significant for leukocytosis of 12.0 and lactic acid 5.1. Patient tested negative for flu, RSV, COVID. CXR showed no acute cardiopulmonary process. EKG showed sinus tachycardia of 127 no evidence of significant ST elevations or depressions. Patient herself states that she feels ?terrible? and complains of increased swelling in lower legs and pain in her feet, especially her right leg. Increasing right leg redness and warmth. States she feels faint and lightheaded. Has not been eating or drinking much the past 2 days. Reports she has also a nonproductive cough since earlier today. Denies nausea, vomiting, dizziness, abdominal pain. Given that patient meets sepsis criteria with a lactic acid of 5.1, patient will be brought to the medical floor for management of right lower extremity cellulitis with sepsis. hospital course: patient was admitted for sepsis secondary to RLE cellulitis due to bilateral lymphedema, poor compliance with compression and hygeine complicated by acute metabolic encephalopathy. she was transfered to medical floor. treated with about 12 days of vanc, zosyn followed by po doxy and augmentin with eventual resolution of sepsis, erythema. now stable off antibiotics, blood cultures negative, recommendations to continue local care with compression and hygeine. course was complicated by acute hypoxic respiratory failure due to mild intermittednt asthma with acute decopmensation/status asthmaticus and possible aspiration pneumonitis. she was transfered to ICU for several days, treated with bipap and steroids. improved and downgraded to medical floor. steroids are being tapered off. now on room air and comfortable. patient noted to have history of factor v leiden. cta and duplex negative for PE/dVT, but has been started on eliquis empirically. for DM continued on insulin sliding scale. for schizoaffective disorder, was followed by psychiatry. conitnued on lamictal and depakote, started on olanzapine. patient is no longer needing inpatient psychiatric care. patient noted to have VALERI, did not tolerated cpap at night, will be discharged with nocturnal oxygen and should follow up for sleep study. for morbid obesity, weight loss is recommended. patient is feeling much better and will be discharged home with VNA. Time Attestation Discharge coordination time: Greater than 30 minutes Quality: Safe Use of Opioids Does Pt have an Active Cancer Diagnosis on the Problem List?: No Quality: Stroke Does the patient have a stroke diagnosis?: No Physical Exam Vital Signs: Vital Signs: Last Vital Signs Temp 97.0 F 11/03/23 07:17 Pulse 86 11/03/23 07:17 Resp 14 11/03/23 07:17 BP 142/82 H 11/03/23 07:17 Pulse Ox 99 11/03/23 07:17 O2 Del Method Nasal Cannula 11/03/23 07:17 O2 Flow Rate 2 11/03/23 07:17 FiO2 40 10/30/23 07:21 BMI result Body Mass Index 63.5 General: AO X 3, no acute distress Resp: distant breath sounds bilateral, no accessory muscles used CVS: S1,S2,RRR GI: soft, non tender, non distended Neuro: motor grossly intact, alert skin: bilateral lymphedema improved, erythema improved, copmression in place DS: Data Data Completed and Pending Labs on day of discharge: Laboratory Results - last 24 hr 11/02/23 11/02/23 11/03/23 16:30 20:02 07:12 POC Glucose 273 H 198 H 126 H 11/03/23 11:24 POC Glucose 136 H Discharge Plan Discharge Anticipated Discharge Date/Time: 11/03/23 12:36 Patient Disposition: Home Health Service Discharge Diagnosis: sepsis, cellulitis Referrals: Physician,Unknown J [Physician] - 1 Week Discharge Medications: New Eliquis 5 mg Tablet 5 mg PO BID Qty: 180 0RF furosemide 40 mg Tablet 40 mg PO DAILY Qty: 90 0RF Protocol: Hold for SBP< HOLD for SBP < : 90 olanzapine 10 mg Tablet,Disintegrating 5 mg translingual BID Qty: 180 0RF prednisone 10 mg tablet 20 mg PO DAILY Qty: 15 0RF Rx Instructions: 20mg for 5 days, then 10mg daily for 5 days Continued acetaminophen 325 mg Tablet 650 mg PO Q6H PRN (Reason: Headache/Pain Mild Scale (1-3)) Qty: 0 0RF trazodone 50 mg Tablet 50 mg PO BEDTIME MRX1 PRN (Reason: Insomnia) Qty: 0 0RF lamotrigine 25 mg Tablet 25 mg PO BEDTIME Qty: 0 0RF magnesium hydroxide [Milk of Magnesia] 400 mg/5 mL Suspension 30 ml PO DAILY PRN (Reason: Constipation) Qty: 0 0RF nystatin 100,000 unit/gram Cream 1 appl topical BID Qty: 0 0RF Protocol: Apply to: Apply to: affected areas hydroxyzine HCl 25 mg Tablet 25 mg PO Q6H PRN (Reason: Anxiety) Qty: 0 0RF nystatin 100,000 unit/gram Powder 1 appl topical BID Qty: 0 0RF Protocol: Apply to: Apply to: angelic area and inner thighs lorazepam 1 mg Tablet 1 mg PO BEDTIME Qty: 0 0RF metformin 500 mg Tablet Extended Release 24 Hr 500 mg PO DAILY Qty: 0 0RF divalproex 125 mg Capsule, Delayed Rel Sprinkle 1,000 mg PO BID Qty: 0 0RF Dermacerin Cream 1 appl topical BID Qty: 0 0RF Protocol: Apply to: Apply to: b/l feet MAG-AL 200-200 mg/5 mL Suspension 30 ml PO Q6H PRN (Reason: Heartburn/Nausea) Qty: 0 0RF Calmol-4 76-10 % Suppository 1 supp NH BID PRN (Reason: Hemorrhoids) Qty: 0 0RF Discontinued atenolol 25 mg Tablet 75 mg PO DAILY Qty: 0 0RF Protocol: Hold for SBP/HR < HOLD for SBP < : 90 HOLD for HR < : 60 furosemide 20 mg Tablet 20 mg PO DAILY Qty: 0 0RF Protocol: Hold for SBP< HOLD for SBP < : 90 Discharge Orders: Discharge Order (Routine); Ordered 11/03/23 Ordered By: Crow Gates Diet: Diabetic diet Activity on Discharge: As tolerated Stand Alone Forms: Patient Portal Discharge page Care Plan Goals: recovery Health Concerns: valeir, bipolar, obesity, asthma, factor v leiden Plan of Treatment: started on eliquis, follow up with pulm to get set up for slepp study and fit for mask, prednisone taper, compression for legs and keep clean. increased lasix, started olanzapine, follow up with psych Assessment: see above
--- NOTE | 2023-11-03 14:23 | MHC.CM.PN ---
TODAY'S P.T. NOTE STATES THAT PATIENT CAN GO HOME WITH SERVICES. NEW PLAN IS FOR HOME WITH [facility], WHO HAVE BEEN FOLLOWING PATIENT FOR SERVICES. [facility] STAFF MEMBER, GLORIA (BUSINESS PROJECT ANALYST) IN ROOM AND AWARE OF PLAN. [facility] MADE AWARE THAT PATIENT HAS CHOSEN TO DC HOME WITH SERVICES. PATIENT WILL RECEIVE RN SKILLS FOR MED MANAGEMENT AND CELLULITIS OVERSIGHT, WELL MENTAL HEALTH NEEDS. PATIENT AND HER MOTHER, MIRELLA (IN ROOM) AWARE OF PLAN. NIGHT TIME O2 ARRANGED BY R.T. PATIENT IS AWARE THAT SHE NEEDS TO FOLLOW UP OUTPATIENT ACCORDING TO SLEEP STUDY RECOMMENDATIONS. MOTHER TRANSPORTING PATIENT HOME.
--- NOTE | 2023-11-19 20:41 | PM.EVENT ---
Documented by User: Rianna Santos, FIRM ADMINISTRATOR 11/19/23 20:46 Event Note Date of Service: 11/19/23 Event Note: Received a call from pt's father, Lucas, . Pt is at home with her mother and has experienced breakthrough sx of brendon. Pt had called tw on 11/16/23 with mom to report that she was feeling and doing very well. Lucas reports pt ran out of Depakote. Pt is seen daily by [facility] for assessment, meds[facility] prescription for Depakote sent. CARE Team, network applications specialist providers notified by email that pt may need emergency assessment. Time Spent With Patient Time: Total time managing care of this patient today ____ minutes. Documented by User: James Argueta MD 11/20/23 13:44 Event Note Date of Service: 11/20/23
== END 2023-11-03 14:14 | disposition home health service (06) | DRG 720 ==
LOC: HO.IMC 10-21 11:18 → HO.ICU 10-22 19:06 → HO.IMC 10-27 13:54 → HO.S3 10-31 18:19
PROVIDERS: Clinical Nurse Specialist Psychiatric/Mental Health, Adult; Hospitalist; Internal Medicine Cardiovascular Disease; Internal Medicine Critical Care Medicine; Nurse Practitioner Family; Physician Assistant Medical; Student in an Organized Health Care Education/Training Program; Admitting Provider Internal Medicine; PCP Internal Medicine; Visit Provider Internal Medicine
DX: A41.9 Sepsis, unspecified organism (principal); J96.01 Acute respiratory failure with hypoxia; I26.99 Other pulmonary embolism without acute cor pulmonale; J69.0 Pneumonitis due to inhalation of food and vomit; D69.6 Thrombocytopenia, unspecified; D68.1 Hereditary factor XI deficiency; Z68.44 Body mass index [BMI] 60.0-69.9, adult; L03.116 Cellulitis of left lower limb; E87.0 Hyperosmolality and hypernatremia; J45.22 Mild intermittent asthma with status asthmaticus; F25.0 Schizoaffective disorder, bipolar type; R46.0 Very low level of personal hygiene; E11.65 Type 2 diabetes mellitus with hyperglycemia; L73.2 Hidradenitis suppurativa; E66.01 Morbid (severe) obesity due to excess calories; I10 Essential (primary) hypertension; E78.5 Hyperlipidemia, unspecified; I89.0 Lymphedema, not elsewhere classified; F39 Unspecified mood [affective] disorder; Z91.199 Patient's noncompliance with other medical treatment and regimen due to unspecified reason; Z87.891 Personal history of nicotine dependence; Z79.84 Long term (current) use of oral hypoglycemic drugs; Z79.899 Other long term (current) drug therapy
CPT/HCPCS: 36415; 36573; 71045; 71250; 71275; 73700; 74176; 80048; 80053; 80164; 80202; 81001; 82040; 82140; 82803; 82947; 83605; 83735; 83880; 84100; 84145; 84443; 85007; 85025; 85027; 85610; 85652; 85730; 86140; 87040; 92950; 93005; 93306; 94640; 94799; 97110; 97116; 97163; 97530; C1751; C1758; J0131; J0295; J0692; J0696; J0736; J1650; J1836; J1940; J2020; J2060; J2185; J2250; J2359; J2543; J2920; J2930; J2997; J3370; J3371; P9047; Q9957; Q9967

== ENCOUNTER 2023-10-20 14:23 | Outpatient (BNV) | payer OTHER, SELFPAY | END 2023-10-28 15:27 | PROVIDERS: Admitting Provider Internal Medicine; PCP Internal Medicine; Visit Provider Internal Medicine Cardiovascular Disease | DX: I45.81 Long QT syndrome (principal) | CPT/HCPCS: 93010 ==

== ENCOUNTER 2023-10-20 14:23 | Outpatient (BNV) | payer OTHER, SELFPAY | END 2023-10-27 15:27 | PROVIDERS: Admitting Provider Internal Medicine; PCP Internal Medicine; Visit Provider Internal Medicine Cardiovascular Disease | DX: R94.31 Abnormal electrocardiogram [ECG] [EKG] (principal) | CPT/HCPCS: 93010 ==

== ENCOUNTER 2023-10-20 14:23 | Outpatient (BNV) | payer OTHER, SELFPAY | END 2023-10-25 15:27 | PROVIDERS: Admitting Provider Internal Medicine; PCP Internal Medicine; Visit Provider Internal Medicine Cardiovascular Disease | DX: A41.89 Other specified sepsis (principal) | CPT/HCPCS: 93010 ==

== ENCOUNTER 2023-10-20 14:23 | Outpatient (BNV) | payer OTHER, SELFPAY | END 2023-10-31 15:27 | PROVIDERS: Admitting Provider Internal Medicine; PCP Internal Medicine; Visit Provider Internal Medicine | DX: I45.81 Long QT syndrome (principal) | CPT/HCPCS: 93010 ==

== ENCOUNTER → 2023-10-20 14:23 | Outpatient (BNV) | payer OTHER, SELFPAY | PROVIDERS: Admitting Provider Internal Medicine; PCP Internal Medicine; Visit Provider Internal Medicine | DX: I87.2 Venous insufficiency (chronic) (peripheral) (principal) | CPT/HCPCS: 99499 ==

== ENCOUNTER → 2023-10-20 14:23 | Outpatient (BNV) | payer OTHER, SELFPAY | PROVIDERS: Admitting Provider Internal Medicine; PCP Internal Medicine; Visit Provider Psychiatry & Neurology Psychiatry | DX: F25.0 Schizoaffective disorder, bipolar type (principal) | CPT/HCPCS: 99221; 99231; 99499 ==

== ENCOUNTER → 2023-10-20 14:23 | Outpatient (BNV) | payer OTHER, SELFPAY | PROVIDERS: Admitting Provider Internal Medicine; PCP Internal Medicine; Visit Provider Surgery | DX: M79.89 Other specified soft tissue disorders (principal) | CPT/HCPCS: 10060; 99222 ==

== ENCOUNTER → 2023-10-20 14:23 | Outpatient (BNV) | payer OTHER, SELFPAY | PROVIDERS: Admitting Provider Internal Medicine; PCP Internal Medicine; Visit Provider Hospitalist | DX: A41.9 Sepsis, unspecified organism (principal); L03.115 Cellulitis of right lower limb | CPT/HCPCS: 99223; 99232; 99233; 99238; G0180 ==

== ENCOUNTER → 2023-10-20 14:23 | Outpatient (BNV) | payer OTHER, SELFPAY | PROVIDERS: Admitting Provider Internal Medicine; PCP Internal Medicine; Visit Provider Internal Medicine | DX: R50.9 Fever, unspecified (principal) | CPT/HCPCS: 99222; 99232; 99499 ==

== ENCOUNTER → 2023-10-20 14:23 | Outpatient (BNV) | payer OTHER, SELFPAY | PROVIDERS: Admitting Provider Internal Medicine; PCP Internal Medicine; Visit Provider Internal Medicine Cardiovascular Disease | DX: J96.00 Acute respiratory failure, unspecified whether with hypoxia or hypercapnia (principal); L03.115 Cellulitis of right lower limb; F25.0 Schizoaffective disorder, bipolar type; E11.65 Type 2 diabetes mellitus with hyperglycemia; E66.01 Morbid (severe) obesity due to excess calories | CPT/HCPCS: 99231; 99291 ==

== ENCOUNTER 2023-11-09 11:40 | Outpatient (AMB) | payer OTHER, SELFPAY ==
--- NOTE | 2023-11-09 11:39 | A.OFFVIS_ITS ---
Intake Vital Signs 3 11/09/23 11:50 Pulse 114 H Pulse Source Pulse Oximeter Temp 97.7 F Temp Source Oral Pulse Oximetry (%) 97 Intake Visit Reasons: reff list/cellulitis sepsis Allergies kiwi [KIWI] Allergy (Mild, Verified 11/09/23 11:51) HIVES mold [MOLD EXTRACTS*] Allergy (Mild, Verified 11/09/23 11:51) HIVES HPI reff list/cellulitis sepsis 2 HPI0 Details I had seen her in hospital with redness abdomen. She is doing better and has no complaints. [facility] Medical History (Updated 11/13/23 @ 22:26 by Sophia Riley MD) Fever Fever of unknown origin Foot swelling Hidradenitis suppurativa Schizoaffective disorder, bipolar type Hypertension, essential Uncontrolled type 2 diabetes mellitus with hyperglycemia Leg edema Obesity, morbid Asthma Factor 5 Leiden mutation, heterozygous Seasonal asthma Surgical History History of ovarian cyst History of wisdom tooth extraction Family History Father HTN (hypertension) Diabetes mellitus Mother Afib Maternal Grandfather No problems noted. Maternal Grandmother No problems noted. Paternal Grandmother Breast cancer Paternal Grandfather No problems noted. Sister No problems noted. Social History Household Members: Family Household Members Other:: Father Housing: House Do you presently have visiting nurse or other home services: No Unable to assess alcohol history related to: Unknown Alcohol intake: never Comment: 1:1 Patient Tobacco Use Status: Former Tobacco user Tobacco use type: Cigarette Years Smoked: 3 yrs e-Cigarette/Vaping Use: Never Used Second Hand Smoke Exposure: No (Unknown; pt unable to participate due to mental status.) service: No Current occupational status: employed Sexual orientation: Straight/Heterosexual Cognitive needs: No Hearing needs: No Vision needs: Yes Review of Systems Const All systems reviewed & are unremarkable except as noted in HPI and below Physical Exam Vital Signs: Last Vital Signs Temp 97.7 F 11/09/23 11:50 Pulse 114 H 11/09/23 11:50 Pulse Ox 97 11/09/23 11:50 Const Other: General: cooperative Orientation/consciousness: patient oriented x3 HEENT Head: Yes normal to inspection Mouth: Normal oral and palatal mucosa present Eyes General: appearance normal, both eyes and all related structures Pupils: Equal, round and reactive pupils present Resp Effort & Inspection: normal respiratory effort Cardio Rate: regular rate Rhythm: regular rhythm GI Palpation (GI): Soft to palpation and nontender General: Yes no CVA tenderness Back/Spine/Pelvis Back: no CVA tenderness Skin General skin exam: no rashes or lesions noted Neuro General: patient oriented x3 Cranial nerves: Yes CN's II-XII intact bilaterally and Yes Equal, round and reactive pupils present Extrem General: Yes normal to inspection Psych Appearance: grossly normal Assessment & Plan Assessment & Plan (1) Fever: Code(s): R50.9 - Fever, unspecified Plan: Fever has resolved Likely due to cellulitis Plan See prn need. Coding Level of Care Code Est Pt Level 3 (74133) Diagnoses Fever R50.9
[2023-11-09 11:50] VITALS: PULSE 114; TEMP 36.5; O2SAT 97
== END 2023-11-09 12:07 | disposition home or self-care (01) ==
LOC: HO.HID 11:40
PROVIDERS: PCP Internal Medicine; Visit Provider Internal Medicine
DX: R50.9 Fever, unspecified (principal)
CPT/HCPCS: 99213

== ENCOUNTER → 2023-11-09 11:40 | Outpatient (BNVA) | payer OTHER, SELFPAY | PROVIDERS: PCP Internal Medicine; Visit Provider Internal Medicine | DX: R50.9 Fever, unspecified (principal) | CPT/HCPCS: 99212 ==

== ENCOUNTER 2023-11-21 05:11 | Inpatient (IN) | payer OTHER, SELFPAY ==
--- NOTE | ~2023-11-21 | XR_ITS ---
EXAMINATION: XR ANKLE, RIGHT CLINICAL INFORMATION: Right foot swelling after rolling ankle COMPARISON: 01/03/2024 and 07/29/2023 TECHNIQUE: AP, lateral, and mortise views of the right ankle. FINDINGS: Is marked soft tissue swelling which has increased when compared to 12/24/2023. No acute fracture or dislocation is seen. The ankle mortise appears stable and no joint effusion is detected. Again seen is marked enthesopathy at the insertion of the Achilles tendon with marked calcification. Some mild irregularity is noted at the tip of the medial malleolus unchanged from prior and similar to the contralateral left ankle on prior studies. XR/XR ankle RT min 3V IMPRESSION: Marked soft tissue swelling without evidence of an acute osseous injury.
--- NOTE | ~2023-11-21 | XR_ITS ---
EXAMINATION:XR ankle RT min 3V CLINICAL INFORMATION: Reason for Exam pain, hx vascular dermatitis COMPARISON: None TECHNIQUE: AP, lateral, and mortise views of the ankle. 3 views FINDINGS: Soft tissue swelling around the entire ankle medial and lateral anterior and posterior. There is a large posterior calcaneal spur. There is no fracture or dislocation. Ankle mortise is preserved. Tibial plafond and talar dome are intact. Medial and lateral malleoli are properly aligned. Subtalar joint is normal. There is no osteolytic or osteoblastic lesions. XR/XR ankle RT min 3V IMPRESSION: 1. No radiographic evidence of bone destruction to suggest osteomyelitis. 2. Soft tissue swelling around the ankle. 3. Large posterior calcaneal spur.
--- NOTE | ~2023-11-21 | XR_ITS ---
EXAMINATION: XR ABDOMEN KUB CLINICAL INDICATION: Abdominal pain COMPARISON: None available. TECHNIQUE: AP view of the abdomen. FINDINGS: The bowel gas pattern is normal with no evidence of ileus or obstruction. No unusual soft tissue calcifications are noted. The bones are unremarkable. XR/XR KUB IMPRESSION: Unremarkable examination.
--- NOTE | ~2023-11-21 | US_ITS ---
EXAMINATION: US VENOUS ULTRASOUND WITH DOPPLER LOWER EXTREMITY, RIGHT CLINICAL INFORMATION: Right leg edema, rule out DVT. COMPARISON: None available. TECHNIQUE: Ultrasound of the deep veins is performed from the hip to the calf with compression sonography and color and pulse Doppler assessment. Spectral analysis with color-flow imaging is performed. Limited visualization due to bowel gas and body habitus. FINDINGS: There is normal venous compression and respiratory variation and augmented flow. The visualized common femoral vein, superficial femoral vein, profunda femoral vein, popliteal vein, and the trifurcation region shows no evidence of deep venous thrombosis. Poor visualization of calf veins due to body habitus. There is no significant popliteal fossa cyst. If the patient's symptoms persist, followup ultrasound in 5 days 7 days might be of value to exclude proximal propagation from a non-visualized calf vein. US/US venous duplex LE RT IMPRESSION: No DVT demonstrated in the right lower extremity. This study was presented today 01/09/2024 for interpretation. Prompt priority results supplied at this time to the referring provider as requested by the provider.
[2023-11-21 05:34] VITALS: BP 145/102; BP 146/98; PULSE 100; PULSE 110; RESP 20; TEMP 37.2; O2SAT 98; O2SAT 99; BMI 55.5
--- NOTE | 2023-11-21 05:34 | ED.PSYCH ---
HPI - Psych General Stated Complaint: crisis Time Seen by Provider: 11/21/23 05:16 Source: patient Mode of arrival: ambulatory Limitations: no limitations History of Present Illness HPI Narrative: Patient comes to the emergency room by ambulance. According to EMS, patient's mother called from home because the patient was very manic. Patient has history bipolar disorder, schizoaffective disorder. The mother reported that the patient has been off medications for almost 1 month. Seems that patient's medications were never refilled. Patient denies SI or HI. Patient is manic, not answering questions appropriately. When patient arrived, when we asked her how we can help her, patient stated I have factor 5 deficiency and I never had sex with my father in my life , and also do not mind my boobies, I'm lactating . Related Data Previous Rx's Medication Instructions Recorded acetaminophen 325 mg tablet 650 mg (2 x 325 mg) PO Q6H PRN 10/20/23 Headache/Pain Mild Scale (1-3) #0 tabs aluminum-magnesium hydroxide 200 30 ml PO Q6H PRN Heartburn/Nausea 10/20/23 mg-200 mg/5 mL oral suspension #0 mL (MAG-AL) divalproex 125 mg capsule,delayed 1,000 mg (8 x 125 mg) PO BID #0 10/20/23 release sprinkle caps hydroxyzine HCl 25 mg tablet 25 mg PO Q6H PRN Anxiety #0 tabs 10/20/23 trazodone 50 mg tablet 50 mg PO BEDTIME MRX1 PRN Insomnia 10/20/23 #0 tabs apixaban 5 mg tablet (Eliquis) 5 mg PO BID #180 tabs 11/03/23 furosemide 40 mg tablet 40 mg PO DAILY #90 tabs 11/03/23 olanzapine 10 mg disintegrating 5 mg (1/2 x 10 mg) translingual 11/03/23 tablet BID #180 tabs paliperidone palmitate 156 mg/mL 156 mg IM Q30D #1 mL 11/03/23 intramuscular syringe (Invega Sustenna) prednisone 10 mg tablet 20 mg (2 x 10 mg) PO DAILY #15 tabs 11/03/23 metformin 500 mg tablet,extended 500 mg PO DAILY #90 tabs 11/11/23 release 24 hr nystatin 100,000 unit/gram topical 1 appl topical BID apply to groin, 11/11/23 powder under abdominal fold #60 grams white petrolatum-mineral oil 1 appl topical BID Apply to right 11/11/23 topical cream (Dermacerin topical leg #908 grams cream) divalproex 125 mg capsule,delayed 1,000 mg (8 x 125 mg) PO BID #224 11/19/23 release sprinkle (Depakote caps Sprinkles) Allergies Allergy/AdvReac Type Severity Reaction Status Date / Time kiwi [KIWI] Allergy Mild HIVES Verified 11/21/23 05:49 mold [MOLD EXTRACTS*] Allergy Mild HIVES Verified 11/21/23 05:49 Review of Systems Review of Systems: Yes Other (Manic, answering questions inappropriately) [facility] Past Medical History Medical History Fever Fever of unknown origin Foot swelling Hidradenitis suppurativa Schizoaffective disorder, bipolar type Hypertension, essential Uncontrolled type 2 diabetes mellitus with hyperglycemia Leg edema Obesity, morbid Asthma Factor 5 Leiden mutation, heterozygous Seasonal asthma Surgical History History of ovarian cyst History of wisdom tooth extraction Family History Family History Father HTN (hypertension) Diabetes mellitus Mother Afib Maternal Grandfather No problems noted. Maternal Grandmother No problems noted. Paternal Grandmother Breast cancer Paternal Grandfather No problems noted. Sister No problems noted. Social History Social History Household Members: Family Household Members Other:: Father Housing: House Do you presently have visiting nurse or other home services: No Unable to assess alcohol history related to: Unknown Alcohol intake: never Comment: 1:1 Patient Tobacco Use Status: Former Tobacco user Tobacco use type: Cigarette Years Smoked: 3 yrs e-Cigarette/Vaping Use: Never Used Second Hand Smoke Exposure: No (Unknown; pt unable to participate due to mental status.) service: No Current occupational status: employed Sexual orientation: Straight/Heterosexual Cognitive needs: No Hearing needs: No Vision needs: Yes Physical Exam Const: Other: Appearance: Alert. No acute distress, manic, answering questions inappropriately Eyes: Pupils equal, round and reactive to light. ENT: Pharynx normal. Neck: Normal inspection. Neck supple. No lymph nodes noted. No crepitus CVS: Normal heart rate and rhythm. Pulses normal. Normal S1 and S2 Respiratory: No respiratory distress. Breath sounds normal. No Wheezing. No rales Abdomen: Soft and nontender. No rigidity. No distention. Skin: Skin warm and dry. Normal skin color. Normal skin turgor. Extremities: No lower extremity edema. No Lacerations. No Rash Neuro: No motor deficit. No sensory deficit. Moving all extremities. No slurred speech. CN 2 through 12 grossly intact Psych: Awake, cooperative, manic, answering questions inappropriately Course Course Course Narrative: All of patient's labs and imaging pending -care team consult pending -patient is on a Section 12, no SI or HI but patient is too manic, patient's judgment is clearly impaired -physician observation started at 05:40 Medical Decision Making Differential Diagnosis Differential Diagnoses: The differential diagnosis associated with the presentation includes (Substance abuse, bipolar disorder, schizoaffective disorder) Admission/Observation Consideration of admission/observation: Escalation of care including admission/observation considered (Very likely patient will be admitted) Critical Care Time Critical Care Time Critical Care Time: Yes Total Critical Care Time: 30 Attestation: I have personally provided critical care time. Time includes review of lab data, radiology results, discussion with consultants, and monitoring for potential decompensation. Intervention performed as documented. Discharge Plan Discharge Clinical Impression: Schizoaffective disorder, bipolar type Patient Disposition: Still a Patient Prescriptions: No Action nystatin 100,000 unit/gram powder 1 appl topical BID Qty: 60 0RF Protocol: Apply to: Apply to: angelic area and inner thighs Dermacerin Cream 1 appl topical BID Qty: 908 0RF Protocol: Apply to: Apply to: b/l feet metformin 500 mg tablet extended release 24 hr 500 mg PO DAILY Qty: 90 0RF acetaminophen 325 mg Tablet 650 mg PO Q6H PRN (Reason: Headache/Pain Mild Scale (1-3)) Qty: 0 0RF trazodone 50 mg Tablet 50 mg PO BEDTIME MRX1 PRN (Reason: Insomnia) Qty: 0 0RF hydroxyzine HCl 25 mg Tablet 25 mg PO Q6H PRN (Reason: Anxiety) Qty: 0 0RF divalproex 125 mg Capsule, Delayed Rel Sprinkle 1,000 mg PO BID Qty: 0 0RF MAG-AL 200-200 mg/5 mL Suspension 30 ml PO Q6H PRN (Reason: Heartburn/Nausea) Qty: 0 0RF Eliquis 5 mg Tablet 5 mg PO BID Qty: 180 0RF furosemide 40 mg Tablet 40 mg PO DAILY Qty: 90 0RF Protocol: Hold for SBP< HOLD for SBP < : 90 olanzapine 10 mg Tablet,Disintegrating 5 mg translingual BID Qty: 180 0RF prednisone 10 mg tablet 20 mg PO DAILY Qty: 15 0RF Rx Instructions: 20mg for 5 days, then 10mg daily for 5 days Invega Sustenna 156 mg/mL syringe 156 mg IM Q30D Qty: 1 0RF Rx Instructions: Injection is due on November 09, 2023. divalproex [Depakote Sprinkles] 125 mg capsule, delayed rel sprinkle 1,000 mg PO BID Qty: 224 0RF Interventions: Wallback-Suicide Risk Severity Scale Last Done: 11/21/23 05:42
--- NOTE | 2023-11-21 06:05 | PC.NURSE ---
called [facility] for med rec, they will fax over
[2023-11-21] MEDS: LORazepam 1 MG TABLET 2 MG PO ×2 (08:27→12:54)
[2023-11-21] MEDS: diphenhydrAMINE HCL 25 MG CAPSULE 50 MG PO (08:27)
[2023-11-21] MEDS: HaloperidoL 5 MG TABLET PO (08:30)
--- NOTE | 2023-11-21 08:47 | MHC.EDTECH ---
Patient called her mother Kiera at . Update given to mother. Patient calm/cooperative after phone call.
--- NOTE | 2023-11-21 08:55 | MHC.EDTECH ---
Marielos - patient's sister -
--- NOTE | 2023-11-21 09:11 | PC.NURSE ---
Assumed care at 0700. Pt pacing in the waite, self dialoguing, yelling out obscenities on and off. When asked to stop yelling she started to yell louder and began banging on her room door. Prn po meds were offered and pt agreed. Po meds prepared and offered and she refused. IM meds offered and she agreed. IM med prepared and offered, she refused and asked for the PO meds. PO meds given as documented. Sydnee was made aware, IM meds were cancelled and wasted with two RNs. Pt sitting quietly with eyes closed at this time. Will continue to observe.
--- NOTE | 2023-11-21 11:19 | PC.NURSE ---
Pt called 911 and reported to the dispatcher that we are holding her hostage she is with sextuplets she has factor 5 . The Lead television news producerFlorentin Ceja clarified the information with the dispatcher. Pt was redirected to the common area and offered a snack which she accepted. She watched tv for a short time then went to her room. Pt now in bed sleeping. Will continue to observe.
--- NOTE | 2023-11-21 11:37 | MHC.EDTECH ---
Patient sleeping at this time, will attempt labs when patient awake and oriented.
--- NOTE | 2023-11-21 11:42 | PC.NURSE ---
This RN called [facility] [phone], verified active meds with pharmacist, information documented in the pt's chart and passed on to Gustavo at [facility].
[2023-11-21] MEDS: OLANZapine ODT 10 MG TAB.RAPDIS TRANSLINGU (12:54)
--- NOTE | 2023-11-21 13:02 | PC.NURSE ---
Pt became disruptive, yelling and pushing on the POD door. Security was called, pt was easily redirected by security. Pt was offered medication for anxiety, med given as documented. Pt eating lunch in the common area at this time. Will continue to observe.
[2023-11-21 14:10] LABS: COVID-19 Test Negative (Negative); IDNOW Serial# 152EDE1D
--- NOTE | 2023-11-21 19:40 | PC.NURSE ---
patient appears to be not rested but seemingly euthymic for situation, some random pressured speech at talking at staff into the air, seeming to want to engage others. patient maintains safe behavior at present respirations even and unlabored.
[2023-11-21 19:42] LABS: Appearance Urine Clear; Color Urine Dark Yellow; Glucose Urine UA Negative (Negative); Leukocyte Esterase Urine Trace (Negative); Nitrite Urine Negative (Negative); PH 5.5 (5.0-9.0); Specific Gravity - Urine >= 1.030 (1.005-1.025); UMIC TRIGGER UACC YES; Urine Blood Negative (Negative); Urine Ketones Trace mg/dL (Negative); Urine Protein Trace mg/dL (Neg-Trace)
[2023-11-21 19:47] LABS: Bacteria Urine 1+ (None Seen); Hyaline Casts Urine 0-2 /LPF (0-2); RBC Urine 0-2 /HPF (0-2); WBC Urine 0-5 /HPF (0-5)
[2023-11-21 19:49] LABS: Amphetamine Screen Urine Not Detected (Not Detect); Barbiturates, Urine Not Detected (Not Detect); Benzodiazepines Screen Urine Not Detected (Not Detect); Cannabinoid Screen Urine Not Detected (Not Detect); Cocaine Screen Urine Not Detected (Not Detect); Fentanyl, urine Not Detected (Not Detect); Opiate Screen Urine Not Detected (Not Detect); Phencyclidine Screen Urine Not Detected (Not Detect)
[2023-11-21 20:52] VITALS: BP 150/90; PULSE 114; RESP 20; TEMP 37; O2SAT 97
[2023-11-21 21:09] LABS: Basophils Percent Auto 0.3 % (0-2); Eosinophils Absolute Auto 0.2 X10*3/uL (0.0-0.4); Eosinophils Percent Auto 2.5 % (0-4); Hematocrit 35.6 % (37.0-47.0); Hemoglobin 11.8 g/dl (12.0-16.0); Imm Gran Abs Auto 0.05 X10*3/uL (0.00-0.03); Imm Gran Pct Auto 0.6 % (0.0-0.4); Lymphocytes Absolute Auto 2.5 X10*3/uL (1.2-4.9); MANUAL DIFF FLAG NO; Mean Corpuscular HGB Conc 33.1 g/dl (31.0-35.0); Mean Corpuscular Hemoglobin 28.2 pg (27.0-33.0); Mean Platelet Volume 9.5 fL (9.4-12.3); Monocytes Absolute Auto 0.6 X10*3/uL (0.1-1.2); Neutrophils Absolute Auto 4.5 x10*3/uL (2.0-8.3); Neutrophils Percent Auto 57.6 % (45-73); Platelet Count 160 X10*3/uL (160-400); Red Blood Count 4.19 X10*6/uL (4.20-5.50); Red Cell Distribution Width 13.9 % (11.0-16.0); White Blood Count 7.9 X10*3/uL (4.8-10.8)
[2023-11-21 21:32] LABS: Alanine Aminotransferase 28 U/L (0-31); Albumin Level 4.3 g/dL (3.5-5.0); Alkaline Phosphatase 61 U/L (39-117); Anion Gap 19 (12-20); Aspartate Amino Transferase 13 U/L (5-31); Bilirubin Direct 0.2 mg/dL (0.0-0.5); Bilirubin Total 0.7 mg/dL (0.0-1.0); Blood Urea Nitrogen 10 mg/dL (9-16); Calcium 9.7 mg/dL (8.4-10.2); Carbon Dioxide 26 mmol/L (22-29); Chloride 103 mmol/L (96-108); Creatinine Clr Calc Pharmacy 196.4; Estimated Glomerular Filt Rate > 60; Ethanol < 10 mg/dL; Glucose Random 185 mg/dL (60-115); HCG Quantitative < 2 mIU/mL; Sodium 144 mmol/L (135-145); Total Protein 7.2 g/dL (6.5-8.0)
[2023-11-21] MEDS: Divalproex Sodium Sprinkles 125 MG CAP.DR.SPR 1000 MG PO (21:40)
[2023-11-21] MEDS: OLANZapine ODT 10 MG TAB.RAPDIS 5 MG TRANSLINGU (21:40)
[2023-11-21] MEDS: Apixaban 5 MG TABLET PO (21:41)
[2023-11-22 05:36] VITALS: BP 132/78; PULSE 122; RESP 18; TEMP 36.4; O2SAT 100
[2023-11-22 06:00] VITALS: BP 152/92; PULSE 108; RESP 18; TEMP 36.7; O2SAT 91
--- NOTE | 2023-11-22 07:12 | PC.NURSE ---
Assumed care of patient at 0700, patient ambulating around BH pod with steady gait, appears to be in no apparent distress. Pt is intrusive in conversation, does not appear to be responding to internal stimuli. Pt is calm and cooperative, occasionally disrobing. continue plan of care for inpatient admission
[2023-11-22] MEDS: OLANZapine ODT 10 MG TAB.RAPDIS 5 MG TRANSLINGU ×2 (08:55→19:39)
[2023-11-22] MEDS: Furosemide 40 MG TABLET PO (08:55)
[2023-11-22] MEDS: Divalproex Sodium Sprinkles 125 MG CAP.DR.SPR 1000 MG PO ×2 (08:55→19:40)
[2023-11-22] MEDS: Apixaban 5 MG TABLET PO ×2 (08:56→19:39)
[2023-11-22] MEDS: metFORMIN HCl ER 500 MG TAB.ER.24H PO (08:56)
[2023-11-22 10:06] LABS: Glucose, Whole Blood 165 mg/dL (60-115)
--- NOTE | 2023-11-22 11:38 | PC.NURSE ---
patient refusing EKG, stating I feel uncomfortable, I dont like this . Admissions team aware
--- NOTE | 2023-11-22 12:16 | PC.NURSE ---
patient refusing blood work yelling Don't touch me, please, I do not accept . This RN attempted to educate patient on need for blood work, patient then began speaking in tangential sentences, unrelated to conversation of blood work. This RN and DAGO Cook attempted
--- NOTE | 2023-11-22 12:22 | PC.NURSE ---
This RN attempted to re-approach patient about EKG, patient refusing once again
[2023-11-22 12:28] VITALS: PULSE 102; RESP 16; O2SAT 96
--- NOTE | 2023-11-22 15:08 | PC.NURSE ---
Zeinab arrived on the unit at 14:50. Search and skin check completed. She has hydradenitis superativa with lesions under both breasts and a odor consistent with candidaisis infection. She has some redness in her lower legs, right >left but does not complain of pain at this time. She is not a reliable historian at this time secondary to disorganization. She filled out a menu with assistance and was shown to her room. She denies SI/HI/AVH and is not at risk of withdrawal. Vital signs obtained and entered.
[2023-11-22 15:11] VITALS: BMI 60.1
[2023-11-22 15:12] VITALS: BP 159/96; PULSE 126; RESP 18; TEMP 36.4; O2SAT 98
[2023-11-22 16:15] VITALS: BP 136/98; PULSE 130; RESP 18; TEMP 36.6; O2SAT 98
--- NOTE | 2023-11-22 22:32 | PC.NURSE ---
Patient is malodorous, did not assess skin under breasts, pannus, or angelic area d/t lack of female nurses and inappropriate sexual though process. Right foot is very red and swollen compared to left as well as ankle with hx of cellulitis, might benefit from wound/skin consult. Patient is acutely manic with flight of ideas and racing thoughts. Occasional irritable outburst. Labile mood with laughing, crying, and irritability. Occasional sexual inappropriateness. Asking staff and other patients if they know this person or that person and has alot of questions. She has not been incontinent yet but has a history of being incontinent. She states her bowels have been like diarrhea. Will continue to monitor behaviors and sleep habits overnight.
[2023-11-23] MEDS: hydrOXYzine HCL 25 MG TABLET PO (05:55)
[2023-11-23] MEDS: OLANZapine 5 MG TABLET PO ×2 (05:55→16:35)
[2023-11-23 07:30] VITALS: BP 143/84; PULSE 119; RESP 15; TEMP 36.5; O2SAT 96
[2023-11-23 08:06] LABS: Glucose, Whole Blood 159 mg/dL (60-115)
[2023-11-23] MEDS: OLANZapine ODT 10 MG TAB.RAPDIS 5 MG TRANSLINGU (08:21)
[2023-11-23] MEDS: metFORMIN HCl ER 500 MG TAB.ER.24H PO (08:22)
[2023-11-23] MEDS: Furosemide 40 MG TABLET PO (08:22)
[2023-11-23] MEDS: Apixaban 5 MG TABLET PO ×2 (08:22→19:44)
[2023-11-23] MEDS: OLANZapine ODT 10 MG TAB.RAPDIS TRANSLINGU ×2 (09:57→19:45)
[2023-11-23] MEDS: Divalproex Sodium Sprinkles 125 MG CAP.DR.SPR 1000 MG PO ×2 (11:05→19:45)
--- NOTE | 2023-11-23 15:13 | P.HPPS_ITS ---
HPI Date of Service: 11/23/23 Chief Complaint: manic aggressive Sources of Information: patient interviewed, chart reviewed and crisis/core team assessment reviewed Additional Sources of Information: Pamela, pt's visiting RN [phone] Mother, Kiera, [facility], [facility] [phone] HPI Subjective Notes: Montiel Warning and Conditional Voluntary Healthcare Proxy: Yes Guardianship: No Medical Problems Affecting Mental Status: No Narrative: 33 yo female, history of bipolar disorder, psychosis, ?schizoaffective disorder presents with acute brendon. Pt to ER 11/21 via ambulance with reported breakthrough brendon beginning on 11/17. [place] [facility] [place]-10/20/23 for brendon with medical transfer 10/20 for cellulitis, sepsis, ARF. Discharged to home . Pt has been followed by [facility] for medical and psychiatric care. Psychotropic meds were poured by [facility] the first week- 11/03-11/10, then pt asked to be independent with this task. Team began receiving notification that pt was experiencing sx on 11/18 when parents reported pt was out of medications. Reviewed with [facility], [facility] who report this was not the issue. Pt's [facility] and mother report Invega Sustenna injection was given by mother with EMT supervision on 11/08 in her left arm. Compliance with regime is a question since discharge. Today, on the unit, pt is labile, yelling, sexually preoccupied and agitated at times. She is accepting of PO meds and did accept Olanzapine 10 mg prn and Haldol concentrate 10 mg po/Ativan 1 mg po this afternoon. She did shower with multiple team members assistance and is found to have vaginal yeast infection sx. Past Psychiatric History: Inpatient: Most recent M5 Sep-Oct 2023, 07/28; [facility]TU 01/2023 OP: OLLIE Briseno [employer]-[facility] Suicide attempts: none Medication trials: haldol, depakote, olanzapine, latuda Medical Evaluation Reviewed: [facility] Medical History Fever Fever of unknown origin Foot swelling Hidradenitis suppurativa Schizoaffective disorder, bipolar type Hypertension, essential Uncontrolled type 2 diabetes mellitus with hyperglycemia Leg edema Obesity, morbid Asthma Factor 5 Leiden mutation, heterozygous Seasonal asthma Narrative: yeast infection Surgical History History of ovarian cyst History of wisdom tooth extraction Family History: maternal family of psychosis, ECT treatments Social History: Pt grew up with both parents until they . She currently lives with her father. Not , no children. 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 Substance History: none Trauma History: affirms Diagnostics Vital Signs (24Hr): Vital Signs - 24 hr 11/22/23 16:15 11/23/23 07:30 Temperature 97.8 F 97.7 F Pulse Rate 130 H 119 H Respiratory Rate 18 15 Blood Pressure 136/98 H 143/84 H Pulse Oximetry 98 96 Oxygen Delivery Method Room Air Room Air BMI result Body Mass Index 60.1 Labs 11/24/23 09:11 11/24/23 09:11 Labs: Laboratory Results - last 48 hr 11/21/23 11/21/23 11/22/23 19:35 21:05 10:03 WBC 7.9 RBC 4.19 L Hgb 11.8 L Hct 35.6 L MCV 85.0 MCH 28.2 MCHC 33.1 RDW 13.9 Plt Count 160 MPV 9.5 Immature Gran % (Auto) 0.6 H Neut % (Auto) 57.6 Lymph % (Auto) 32.0 [place] % (Auto) 7.0 Eos % (Auto) 2.5 Baso % (Auto) 0.3 Lymph # (Auto) 2.5 [place] # (Auto) 0.6 Eos # (Auto) 0.2 Baso # (Auto) 0.0 Abs Immat Gran (auto) 0.05 H Absolute Neuts (auto) 4.5 Absolute Nucleated RBC 0.000 Nucleated RBC % (auto) 0.0 Sodium 144 Potassium 4.0 Chloride 103 Carbon Dioxide 26 Anion Gap 19 BUN 10 Creatinine 0.70 Estim Creat Clear Calc 196.4 Estimated GFR > 60 POC Glucose 165 H Random Glucose 185 H Calcium 9.7 Total Bilirubin 0.7 Direct Bilirubin 0.2 AST 13 ALT 28 Alkaline Phosphatase 61 Total Protein 7.2 Albumin 4.3 Beta HCG, Quant < 2 Urine Color Dark Yellow Urine Appearance Clear Urine pH 5.5 Ur Specific [place] >= 1.030 H Urine Protein Trace Urine Glucose (UA) Negative Urine Ketones Trace Urine Blood Negative Urine Nitrite Negative Ur Leukocyte Esterase Trace H Urine RBC 0-2 Urine WBC 0-5 Ur Squamous Epith Cells 11-20 Urine Bacteria 1+ Hyaline Casts 0-2 Urine Opiates Screen Not Detected Urine Fentanyl Screen Not Detected Ur Barbiturates Screen Not Detected Ur Phencyclidine Scrn Not Detected Ur Amphetamines Screen Not Detected U Benzodiazepines Scrn Not Detected Urine Cocaine Screen Not Detected U Marijuana (THC) Screen Not Detected Ethyl Alcohol < 10 11/23/23 07:59 WBC RBC Hgb Hct MCV MCH MCHC RDW Plt Count MPV Immature Gran % (Auto) Neut % (Auto) Lymph % (Auto) [place] % (Auto) Eos % (Auto) Baso % (Auto) Lymph # (Auto) [place] # (Auto) Eos # (Auto) Baso # (Auto) Abs Immat Gran (auto) Absolute Neuts (auto) Absolute Nucleated RBC Nucleated RBC % (auto) Sodium Potassium Chloride Carbon Dioxide Anion Gap BUN Creatinine Estim Creat Clear Calc Estimated GFR POC Glucose 159 H Random Glucose Calcium Total Bilirubin Direct Bilirubin AST ALT Alkaline Phosphatase Total Protein Albumin Beta HCG, Quant Urine Color Urine Appearance Urine pH Ur Specific [place] Urine Protein Urine Glucose (UA) Urine Ketones Urine Blood Urine Nitrite Ur Leukocyte Esterase Urine RBC Urine WBC Ur Squamous Epith Cells Urine Bacteria Hyaline Casts Urine Opiates Screen Urine Fentanyl Screen Ur Barbiturates Screen Ur Phencyclidine Scrn Ur Amphetamines Screen U Benzodiazepines Scrn Urine Cocaine Screen U Marijuana (THC) Screen Ethyl Alcohol Meds/Allergies Meds Home Medications Medication Instructions Recorded Confirmed Type olanzapine 10 mg disintegrating 5 mg BID 11/21/23 11/21/23 History tablet Allergies Allergies Allergy/AdvReac Type Severity Reaction Status Date / Time kiwi [KIWI] Allergy Mild HIVES Verified 11/21/23 05:49 mold [MOLD EXTRACTS*] Allergy Mild HIVES Verified 11/21/23 05:49 Mental Status Exam Mental Status Exam Patient Appearance: Fatigued, Disheveled, Unkempt and Malodorous Patient Orientation: Person, Place and Situation Level of Consciousness: Awake, Restless, Alert, Follows Commands and Inappropriate Patient Behavior: Talkative, Hyperactive, Cooperative, Suspicious, Hypersexual, Restless, Belligerent, Wandering, Verbal Threats, Swearing, Anxious, Resistive to Care, Fatigued, Distractible, Confused, Good Eye Contact, Uncooperative, Impulsive and Pacing Mood Description: Euphoric, Depressed, Hostile, Cheerful, Anxious, Labile, Angry and Apprehensive Affect Description: Hostile, Labile and Angry Patient Cognition Impaired: Yes Ability to Follow Directions: Fair Speech Pattern: Clear, Perseverating, Spontaneous Speech, Rambling, Cofabulation, Rapid, Excessive, Animated, Loud, Pressured, Includes Profanity and Excited Memory Description: Remote Impaired Hallucinations: None Delusions: Being Controlled, Grandiose and Present Perceptual Disturbances: Depersonalization and Derealization Thought Process: Illogical, Distracted and Rumination Thought Content: positive for Flight of Ideas, positive for Racing, positive for [place], positive for Obsessional Thoughts, positive for Circumstantial, positive for Perseveration, positive for Preoccupation, positive for Loose Associations, positive for Tangential, positive for Suicidal Ideation (denies) and positive for Homicidal Ideation (threatening to the team.) Depressive Symptoms: Increased Anxiety, Insomnia, Increased Irritability, Difficulty Sleeping, Unhappiness, Increased Fatigue and Difficulty Concentrating Abnormal Motor Activity Signs and Symptoms: Agitation, Hyperactivity and Restlessness Judgement: Poor Assessment & Plan Assessment & Plan (1) Schizoaffective disorder, bipolar type: Status: Acute Code(s): F25.0 - Schizoaffective disorder, bipolar type Plan 33 yo female, hx of schizoaffective disorder, bipolar type with current acute brendon, DM2, HTN, HLD, Seasonal Asthma, Obesity, Factor Five Leiden. Discharge from medicine after being treated for cellulitis, sepsis and ARF. It appears pt has not been compliant with medications at home and reported difficulty accessing them. [facility] has been helping pt and she had asked to take meds independently approximately a week prior to admission. Plan: Diagnostics for 11/23- EKG, CBCD, CMP, Valproate, CRP, A1C, Lipid Panel, TSH, B12, Folate POC bid Today, pt given Olanzapine 10 mg prn this a.m. and Haldol conc 10 mg, Ativan 1 mg this afternoon for mgt of brendon Colace daily Diflucan PO for yeast infection, cream for affected areas Lamictal at hs MVI daily Lorazepam at hs Mineral Oil to skin. Nystatin Powder/Cream to affected areas Compression Stockings on when pt is up during the day Pt refuses CPAP, may need nocturnal O2 prn Monitor BLE edema Monitor skin integrity Ongoing collateral contact with family and providers. Patient educated on: other Informed Consent: does not understand and further education needed Reason for continued inpatient stay Substantial Risk for: med/psych decompensation Statement Statement: I have reviewed the history and physical and performed a pertinent examination on my patient. No changes have occurred unless specified. If the History and Physical was not performed prior to admission, the Hospitalist's service will be consulted for completing the admission physical. Time Spent With Patient Time: Total time managing care of this patient today ____ minutes.
[2023-11-23] MEDS: LORazepam 1 MG TABLET PO ×2 (15:41→19:46)
[2023-11-23] MEDS: lamoTRIgine 25 MG TABLET PO (19:47)
[2023-11-23] MEDS: Docusate Sodium 100 MG CAPSULE PO (19:48)
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
--- NOTE | 2023-11-24 04:36 | PC.NURSE ---
Addendum entered by Kita Chawla RN 11/24/23 05:40: PATIENT SHOWERED WITH STAFF ASSISTANCE AT 0500 Original Note: AT 0430 PT WOKE UP YELLING NONSENSICALLY IN HER ROOM. RN OBSERVED THAT PT WAS INCONTINENT OF URINE. RN OFFERED PT A SHOWER WITH ASSISTANCE IN THE HANDICAPPED SHOWER. PT INSISTED TO BE BROUGHT TO ANOTHER UNIT. RN TOLD PT THERE WAS A SHOWER ON THIS UNIT SUITABLE AND AVAILABLE FOR HER NEEDS AND OFFERED TO ASSIST THE PT TO SHOWER. PT STATED DONT MAKE ME GET OFF THIS BED AND PUNCH YOU . PT REFUSED TO SHOWER OR CHANGED CLOTHING AT THIS TIME. RN WILL RE OFFER TO PT.
[2023-11-24] MEDS: hydrOXYzine HCL 25 MG TABLET PO (04:39)
[2023-11-24] MEDS: OLANZapine 5 MG TABLET PO (04:40)
[2023-11-24] MEDS: Nystatin Powder 15 GM BOTTLE 1 APPL TOPICAL (05:31)
[2023-11-24 05:57] LABS: Glucose, Whole Blood 185 mg/dL (60-115)
[2023-11-24 08:00] VITALS: BP 135/91; PULSE 124; RESP 18; TEMP 36.5; O2SAT 97
[2023-11-24] MEDS: metFORMIN HCl ER 500 MG TAB.ER.24H PO (08:21)
[2023-11-24] MEDS: Apixaban 5 MG TABLET PO ×2 (08:21→19:50)
[2023-11-24] MEDS: Fluconazole 100 MG TABLET PO (08:21)
[2023-11-24] MEDS: Furosemide 40 MG TABLET PO (08:21)
[2023-11-24] MEDS: Multivitamin TABLET 1 TAB PO (08:21)
[2023-11-24] MEDS: OLANZapine ODT 10 MG TAB.RAPDIS TRANSLINGU ×2 (08:21→19:51)
--- NOTE | 2023-11-24 09:00 | ECG_ITS ---
Test Reason : check qt prolongation Blood Pressure : / mmHG Vent. Rate : 114 BPM Atrial Rate : 114 BPM P-R Int : 146 ms QRS Dur : 100 ms QT Int : 336 ms P-R-T Axes : 063 047 019 degrees QTc Int : 463 ms Sinus tachycardia Otherwise normal ECG When compared with ECG of 22-NOV-2023 15:20, No significant change was found Referred By: Rianna Santos Electronically Signed By:SATHYA CHAVES
[2023-11-24] MEDS: Divalproex Sodium Sprinkles 125 MG CAP.DR.SPR 1000 MG PO ×2 (09:07→19:51)
[2023-11-24 09:17] LABS: MANUAL DIFF FLAG NO
[2023-11-24 09:21] LABS: Basophils Percent Auto 0.3 % (0-2); Eosinophils Absolute Auto 0.2 X10*3/uL (0.0-0.4); Eosinophils Percent Auto 1.7 % (0-4); Hematocrit 34.7 % (37.0-47.0); Hemoglobin 11.7 g/dl (12.0-16.0); Imm Gran Pct Auto 1.1 % (0.0-0.4); Lymphocytes Percent Auto 22.2 % (20-40); Mean Corpuscular HGB Conc 33.7 g/dl (31.0-35.0); Mean Corpuscular Hemoglobin 28.6 pg (27.0-33.0); Mean Corpuscular Volume 84.8 fL (80.0-98.0); Monocytes Absolute Auto 0.8 X10*3/uL (0.1-1.2); Monocytes Percent Auto 8.8 % (2-11); Neutrophils Percent Auto 65.9 % (45-73); Platelet Count 192 X10*3/uL (160-400); Red Blood Count 4.09 X10*6/uL (4.20-5.50); Red Cell Distribution Width 13.9 % (11.0-16.0); White Blood Count 9.1 X10*3/uL (4.8-10.8)
[2023-11-24 09:32] LABS: Valproate 71.6 mcg/mL (50.0-100.0)
[2023-11-24 09:36] LABS: Estimated Average Glucose 143 mg/dL; Hemoglobin A1c % 6.6 % (<6.0)
[2023-11-24 09:44] LABS: Alanine Aminotransferase 21 U/L (0-31); Albumin Level 4.2 g/dL (3.5-5.0); Alkaline Phosphatase 67 U/L (39-117); Anion Gap 18 (12-20); Aspartate Amino Transferase 14 U/L (5-31); Bilirubin Total 0.7 mg/dL (0.0-1.0); Blood Urea Nitrogen 8 mg/dL (9-16); C Reactive Protein 4.68 mg/dL (< or = 0.50); Calcium 9.5 mg/dL (8.4-10.2); Carbon Dioxide 26 mmol/L (22-29); Chloride 102 mmol/L (96-108); Cholesterol 277 mg/dL (<200); Creatinine Clr Calc Pharmacy 240.8; Estimated Glomerular Filt Rate > 60; Glucose Random 176 mg/dL (60-115); HDL Cholesterol 48 mg/dL (>40); LDL Cholesterol Calculated 154 mg/dL (<100); Potassium 3.9 mmol/L (3.3-5.1); Sodium 142 mmol/L (135-145); Total Protein 7.3 g/dL (6.5-8.0); Triglycerides 376 mg/dL (<150)
[2023-11-24 09:58] LABS: Thyroid Stimulating Hormone 1.14 uIU/mL (0.32-4.0)
[2023-11-24 11:01] LABS: Vitamin B12 306 pg/mL (200-900)
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
[2023-11-24] MEDS: Nicotine Polacrilex 2 MG GUM 4 MG BUCCAL (15:15)
--- NOTE | 2023-11-24 17:36 | PM.EVENT ---
Event Note Date of Service: 11/24/23 Event Note: Medical consult for patient with redness and warmth of right lower extremity suspicious for cellulitis. Patient has a recent history of lower leg bilateral cellulitis with sepsis with prolonged ICU and hospital floor stay. Upon examination patient with small healing open wound on dorsal aspect of right foot with surrounding erythema and warmth. Also erythema and warmth of right lower leg. As pictured below Left lower extremity non erythematous. Patient has a long history of not wearing shoes or socks but walking barefoot. Will treat with doxycycline 100 mg b.i.d. x7 days. Patient should take with plenty of water and food. Time Spent With Patient Time: Total time managing care of this patient today ____ minutes.
[2023-11-24] MEDS: Doxycycline Monohydrate 100 MG CAPSULE PO (18:12)
[2023-11-24] MEDS: lamoTRIgine 25 MG TABLET PO (19:49)
[2023-11-24] MEDS: LORazepam 1 MG TABLET PO (19:50)
[2023-11-24 21:56] LABS: Glucose, Whole Blood 233 mg/dL (60-115)
[2023-11-24 22:15] VITALS: BP 134/91; PULSE 130; TEMP 36.4; O2SAT 96
[2023-11-25] MEDS: Doxycycline Monohydrate 100 MG CAPSULE PO ×2 (05:00→17:58)
[2023-11-25] MEDS: OLANZapine 5 MG TABLET PO ×3 (06:14→19:55)
[2023-11-25 08:14] LABS: Glucose, Whole Blood 153 mg/dL (60-115)
[2023-11-25 08:29] VITALS: BP 172/87; PULSE 128; RESP 18; TEMP 37.1; O2SAT 96
[2023-11-25] MEDS: OLANZapine ODT 10 MG TAB.RAPDIS TRANSLINGU (08:33)
[2023-11-25] MEDS: Divalproex Sodium Sprinkles 125 MG CAP.DR.SPR 1000 MG PO (08:52)
[2023-11-25] MEDS: metFORMIN HCl ER 500 MG TAB.ER.24H PO (08:52)
[2023-11-25] MEDS: Apixaban 5 MG TABLET PO ×2 (08:52→19:55)
[2023-11-25] MEDS: Furosemide 40 MG TABLET PO (08:52)
[2023-11-25] MEDS: Fluconazole 100 MG TABLET PO (08:52)
[2023-11-25] MEDS: hydrOXYzine HCL 25 MG TABLET PO (10:55)
--- NOTE | 2023-11-25 12:07 | HO.WOUND ---
Wound Consult: Initial 33yr old?Female admitted to [facility] [place] on 11/21 to the Behavioral Health Unit - See progress notes and H&P for detailed history.? Of note patient had recent admission and was seen by this inpatient wound care nurse. Wound consult placed for Abdominal skin folds, perineal area and right foot. Patient agreeable to assessment and photo documentation.? The Abdominal area and perineal area were assessed they were noted for fungal odor in addition to unkept odor. Shower access has been offered but remains difficult to get with in skin folds - suggest angelic bottle for improved access to difficult to reach areas for cleansing. Abdominal Skin Folds, Perineal area and Bilateral Inner Thighs Etiology: ?Fungal Dermatitis and MASD (Moisture Associated Skin Damage)?Present on Admission Wound Bed: Red erythema with in skin folds scattered areas of denuded tissue partial thickness tissue loss consistent with MASD satellite lesions noted consistent with fungal derm Drainage / Odor: Yeast odor noted Edges: ? Mirrored and advancing Angelic wound: ?Intact as noted satellite lesions noted - Left thigh with firm area of induration and light purple red pigmentation - suspect friction within thighs rubbing and moist environment however some concern for cellulitis site and or abcess -direct care team to continue to monitor Pain: patient reports pain with cleansing Goals of Treatment: ? Switch antifungal treatment from powder to ointment followed by Triad barrier cream to aid in moist wound healing while acting as a barrier to moisture and friction Left Dorsal Foot Etiology: ?Cellultitis Measurements: 0.2cm x 0.2cm x 0.1cm Wound Bed: pink wound bed Drainage / Odor: none noted Edges: ? attached - well defined Angelic wound: Red erythema, warmth and significant swelling noted Pain: pain reported Goals of Treatment: ? Moist wound healing - if worsening develops reconsult hospitalist for systemic treatment options - Patient currently in Edema wear size large - given todays calf circumference she would benefit from size Medium application. Elevate Bilateral lower legs throughout the day on pillows. Apply Edema Wear Compression Stockings - Edema Wear compression garments should be applied first thing in the morning.? Hand wash and hang dry.? Stockings should be worn from the base of the toes to just below the knee.? Fold over at end to prevent rolling.? They are disposable after about 2 weeks or regular use. Recommendations: 1. Turn and Reposition every 2 hours and as needed for patient comfort.? Use pillows or wedges to support off loading positions. 2. Off Load all bony prominences with use of pillows and heel boots if needed.? Apply Preventative foams where needed. ? 3. Monitor for incontinence and moisture control, use barrier creams when needed for prevention and treatment. 4. Provide adequate and supplemental nutrition.? 5. When applicable maintain blood glucose levels per Providers order. 6. Abdominal Fold, Perineal and Bilateral Inner Thighs - Through cleansing with PH balanced soap rinse well and dry well. Apply Antifungal ointment twice aday to affected areas, cover with Triad to act as barrier to friction and moisture. Continue to use antifungal treamtent for 10-14 days past clinical clearing to ensure fungal removal. After treatment completed consider switching to Interdry to wick away moisture from skin folds. 7. Right Foot -Cleanse with NS, pat dry. Cover wound bed with cut to size xeroform cover with dry gauze and secure with tape. Moisturize lower legs to prevent or minimize risk of skin splitting with swelling. Elevate Bilateral lower legs throughout the day on pillows. Apply Edema Wear Compression Stockings size Medium (Yellow stripe) - Edema Wear compression garments should be applied first thing in the morning.? Hand wash and hang dry.? Stockings should be worn from the base of the toes to just below the knee.? Fold over at end to prevent rolling.? They are disposable after about 2 weeks or regular use. Re-consult wound care Nurse for wound deterioration or wound changes.
--- NOTE | 2023-11-25 17:22 | P.PNPSI_ITS ---
Subjective Subjective Date of Service: 11/25/23 Reason For Visit: manic aggressive Subjective Notes: Conditional Voluntary Healthcare Proxy: Yes Guardianship: No Medical Problems Affecting Mental Status: Yes Interim History: Zeinab remains labile. Team reports today she threatened the human rights officer by raising her fist, called 911 and spoke with police, and has had intermittent verbal agitation, targeting staff with sexualized content comments and threats. She will scream at times. She has a therapeutic Valproate level on 2000 mg daily and Olanzapine 40 mg daily with 15 mg daily of prn. These doses have not assisted her. She naps, sleeps poorly, is eating and taking fluids. As a result, Valproate today is increased to 1500 mg bid (1000 mg increase. Olanzapine prn is continued, standing does discontinued and chlorpromazine standing dose of 50 mg tid and 100 mg bid prn are ordered (350 mg total). HCP will be activated. Clozapine application will be made after activation. She is also consistently hypertensive. Will re-start Atenolol 25 mg daily. Medically, she was seen by hosptialist services on 11/23. Doxycycline 100 mg bid initiated for RLE redness, warmth, r/o cellulitis. Today, wound consult with specific recommendations by Cris Carballo was completed. Pt with abdominal skin fold, perineal area, feet, bilateral thigh areas of concern . Please refer to wound care note. Medication Compliance: Yes Side effects from medications: No Attending Groups: No Review of Systems Acute medical concerns: No Medical Review of Systems: unchanged Review of Systems Review of Systems Abdominal skin folds, perineal area, bilateral inner thighs BLE edema with ? cellulitis Yes Unobtainable due to mental status Mental Status Exam Mental Status Exam Patient Appearance: Fatigued, Disheveled, Unkempt and Malodorous Patient Orientation: Person, Place and Situation Level of Consciousness: Awake, Restless, Alert, Follows Commands and Inappropriate Patient Behavior: Talkative, Hyperactive, Cooperative, Suspicious, Hypersexual, Restless, Belligerent, Wandering, Verbal Threats, Swearing, Anxious, Resistive to Care, Fatigued, Distractible, Confused, Good Eye Contact, Uncooperative, Impulsive and Pacing Mood Description: Euphoric, Depressed, Hostile, Cheerful, Anxious, Labile, Angry and Apprehensive Affect Description: Hostile, Labile and Angry Patient Cognition Impaired: Yes Ability to Follow Directions: Fair Speech Pattern: Clear, Perseverating, Spontaneous Speech, Rambling, Cofabulation, Rapid, Excessive, Animated, Loud, Pressured, Includes Profanity and Excited Memory Description: Remote Impaired Hallucinations: None Delusions: Being Controlled, Grandiose and Present Perceptual Disturbances: Depersonalization and Derealization Thought Process: Illogical, Distracted and Rumination Thought Content: positive for Flight of Ideas, positive for Racing, positive for Cutler, positive for Obsessional Thoughts, positive for Circumstantial, positive for Perseveration, positive for Preoccupation, positive for Loose Associations, positive for Tangential, positive for Suicidal Ideation (denies) and positive for Homicidal Ideation (threatening to the team.) Depressive Symptoms: Increased Anxiety, Insomnia, Increased Irritability, Difficulty Sleeping, Unhappiness, Increased Fatigue and Difficulty Concentrating Abnormal Motor Activity Signs and Symptoms: Agitation, Hyperactivity and Restlessness Judgement: Poor Diagnostics Vital Signs (24Hr): Vital Signs - 24 hr 11/24/23 22:15 11/25/23 08:29 Temperature 97.6 F 98.7 F Pulse Rate 130 H 128 H Respiratory Rate 18 Blood Pressure 134/91 H 172/87 H Pulse Oximetry 96 96 Oxygen Delivery Method Room Air Room Air BMI result Body Mass Index 60.1 Labs 11/24/23 09:11 11/24/23 09:11 Labs: Laboratory Results - last 48 hr 11/24/23 11/24/23 11/24/23 05:54 09:11 21:52 WBC 9.1 RBC 4.09 L Hgb 11.7 L Hct 34.7 L MCV 84.8 MCH 28.6 MCHC 33.7 RDW 13.9 Plt Count 192 MPV 10.0 Immature Gran % (Auto) 1.1 H Neut % (Auto) 65.9 Lymph % (Auto) 22.2 Angelina % (Auto) 8.8 Eos % (Auto) 1.7 Baso % (Auto) 0.3 Lymph # (Auto) 2.0 Angelina # (Auto) 0.8 Eos # (Auto) 0.2 Baso # (Auto) 0.0 Abs Immat Gran (auto) 0.10 H Absolute Neuts (auto) 6.0 Absolute Nucleated RBC 0.000 Nucleated RBC % (auto) 0.0 Sodium 142 Potassium 3.9 Chloride 102 Carbon Dioxide 26 Anion Gap 18 BUN 8 L Creatinine 0.62 Estim Creat Clear Calc 240.8 Estimated GFR > 60 POC Glucose 185 H 233 H Random Glucose 176 H Estimat Average Glucose 143 Hemoglobin A1c % 6.6 H Calcium 9.5 Total Bilirubin 0.7 AST 14 ALT 21 Alkaline Phosphatase 67 C-Reactive Protein 4.68 H Total Protein 7.3 Albumin 4.2 Triglycerides 376 H Cholesterol 277 H LDL Cholesterol, Calc 154 H HDL Cholesterol 48 Vitamin B12 306 Folate 15.0 TSH 1.14 Valproic Acid 71.6 11/25/23 08:09 WBC RBC Hgb Hct MCV MCH MCHC RDW Plt Count MPV Immature Gran % (Auto) Neut % (Auto) Lymph % (Auto) Angelina % (Auto) Eos % (Auto) Baso % (Auto) Lymph # (Auto) Angelina # (Auto) Eos # (Auto) Baso # (Auto) Abs Immat Gran (auto) Absolute Neuts (auto) Absolute Nucleated RBC Nucleated RBC % (auto) Sodium Potassium Chloride Carbon Dioxide Anion Gap BUN Creatinine Estim Creat Clear Calc Estimated GFR POC Glucose 153 H Random Glucose Estimat Average Glucose Hemoglobin A1c % Calcium Total Bilirubin AST ALT Alkaline Phosphatase C-Reactive Protein Total Protein Albumin Triglycerides Cholesterol LDL Cholesterol, Calc HDL Cholesterol Vitamin B12 Folate TSH Valproic Acid Medications Medications Current Medications Acetaminophen (Acetaminophen 325 Mg Tablet) 650 mg PO Q6H PRN PRN Reason: Headache/Pain Mild Scale (1-3) Al Hydroxide/Mg Hydroxide (Magnesium Hydrox/Alum Hydrox 30 Ml Oral.Susp) 30 ml PO Q6H PRN PRN Reason: Heartburn/Nausea Apixaban (Apixaban 5 Mg Tablet) 5 mg PO BID [facility] TO [facility] Last Admin: 11/25/23 08:52 Dose: 5 mg Chlorpromazine HCl (Chlorpromazine Hcl 25 Mg Tablet) 50 mg PO TID [facility] Chlorpromazine HCl (Chlorpromazine Hcl 100 Mg Tablet) 100 mg PO BID PRN PRN Reason: brendon,psychosis Divalproex Sodium (Divalproex Sodium Sprinkles 125 Mg ) 1,500 mg PO BID [facility] Docusate Sodium (Docusate Sodium 100 Mg Capsule) 100 mg PO BEDTIME [facility] Last Admin: 11/24/23 20:09 Dose: Not Given Doxycycline Monohydrate (Doxycycline Monohydrate 100 Mg Capsule) 100 mg PO Q12H [facility] Stop: 12/01/23 17:59 Last Admin: 11/25/23 05:00 Dose: 100 mg Fluconazole (Fluconazole 100 Mg Tablet) 100 mg PO DAILY [facility] Stop: 11/28/23 09:00 Last Admin: 11/25/23 08:52 Dose: 100 mg Furosemide (Furosemide 40 Mg Tablet) 40 mg PO DAILY [facility]; Protocol Last Admin: 11/25/23 08:52 Dose: 40 mg Hydroxyzine HCl (Hydroxyzine Hcl 25 Mg Tablet) 25 mg PO Q6H PRN PRN Reason: Anxiety Last Admin: 11/25/23 10:55 Dose: 25 mg Lamotrigine (Lamotrigine 25 Mg Tablet) 25 mg PO BEDTIME [facility] Last Admin: 11/24/23 19:49 Dose: 25 mg Lorazepam (Lorazepam 1 Mg Tablet) 1 mg PO BEDTIME [facility] Last Admin: 11/24/23 19:50 Dose: 1 mg Magnesium Hydroxide (Milk Of Magnesia 30 Ml Oral.Susp) 30 ml PO DAILY PRN PRN Reason: Constipation Metformin HCl (Metformin Hcl Er 500 Mg Tab.Er.24h) 500 mg PO DAILY [facility] Last Admin: 11/25/23 08:52 Dose: 500 mg Multi-Ingred Cream/Lotion/Oil/Oint (Mineral Oil/Petrolatum,White 106 Gm Tube) 1 appl TOPICAL BID [facility] Last Admin: 11/25/23 08:34 Dose: Not Given Multivitamins/Vitamin C (Multivitamin Tablet) 1 tab PO DAILY [facility] Last Admin: 11/25/23 08:39 Dose: Not Given Nicotine (Nicotine 21 Mg Patch.Td24) 21 mg TRANSDERMA DAILY PRN PRN Reason: smoking cessation Nicotine Polacrilex (Nicotine Polacrilex 2 Mg Gum) 4 mg BUCCAL Q2H PRN PRN Reason: Nicotine Cravings Last Admin: 11/24/23 15:15 Dose: 4 mg Pt Own (Culturelle (Probiotics 1 Cap)) 1 cap PO DAILY [facility] Last Admin: 11/25/23 13:21 Dose: 1 cap Nystatin (Nystatin Cream 15 Gm Tube) 1 appl TOPICAL BID [facility]; Protocol Last Admin: 11/25/23 08:34 Dose: Not Given Nystatin (Nystatin Powder 15 Gm Bottle) 1 appl TOPICAL BID [facility]; Protocol Last Admin: 11/25/23 08:34 Dose: Not Given Olanzapine (Olanzapine 5 Mg Tablet) 5 mg PO TID PRN PRN Reason: agitation Last Admin: 11/25/23 10:55 Dose: 5 mg Trazodone HCl (Trazodone Hcl 50 Mg Tablet) 50 mg PO BEDTIME MRX1 PRN PRN Reason: Insomnia Allergies Allergies Allergy/AdvReac Type Severity Reaction Status Date / Time kiwi [KIWI] Allergy Mild HIVES Verified 11/21/23 05:49 mold [MOLD EXTRACTS*] Allergy Mild HIVES Verified 11/21/23 05:49 Assessment & Plan Assessment & Plan (1) Schizoaffective disorder, bipolar type: Status: Acute Code(s): F25.0 - Schizoaffective disorder, bipolar type Plan 33 yo female, hx of schizoaffective disorder, bipolar type with current acute brendon, DM2, HTN, HLD, Seasonal Asthma, Obesity, Factor Five Leiden. Discharge from medicine after being treated for cellulitis, sepsis and ARF. It appears pt has not been compliant with medications at home and reported difficulty accessing them. VNA has been helping pt and she had asked to take meds independently approximately a week prior to admission. Plan: Diagnostics for 11/23- EKG, CBCD, CMP, Valproate, CRP, A1C, Lipid Panel, TSH, B12, Folate POC bid Today, pt given Olanzapine 10 mg prn this a.m. and Haldol conc 10 mg, Ativan 1 mg this afternoon for mgt of brendon Colace daily Diflucan PO for yeast infection, cream for affected areas Lamictal at hs MVI daily Lorazepam at hs Mineral Oil to skin. Nystatin Powder/Cream to affected areas Compression Stockings on when pt is up during the day Pt refuses CPAP, may need nocturnal O2 prn Monitor BLE edema Monitor skin integrity Ongoing collateral contact with family and providers. 11/24/22 Increase Valproate to 1500 mg bid Discontinue standing Olanzapine Continue Olanzapine prn Chlorpromazine 50 mg tid and 100 mg bid prn Atenolol 25 mg a.m. Culturelle probiotic 1 tab daily Informed Consent: does not understand Reason for continued inpatient stay Substantial Risk for: rapid decompensation and med/psych decompensation Time Spent With Patient Time: Total time managing care of this patient today ____ minutes.
[2023-11-25] MEDS: chlorproMAZINE HCl 100 MG TABLET PO (17:58)
[2023-11-25 18:00] VITALS: BP 136/62; PULSE 118; RESP 18; TEMP 36.7; O2SAT 97
[2023-11-25] MEDS: Divalproex Sodium Sprinkles 125 MG CAP.DR.SPR 1500 MG PO (19:54)
[2023-11-25] MEDS: chlorproMAZINE HCl 25 MG TABLET 50 MG PO (19:55)
[2023-11-25] MEDS: LORazepam 1 MG TABLET PO (19:55)
[2023-11-25] MEDS: Docusate Sodium 100 MG CAPSULE PO (19:55)
[2023-11-25] MEDS: lamoTRIgine 25 MG TABLET PO (19:55)
[2023-11-25] MEDS: traZODone HCL 50 MG TABLET PO (19:56)
[2023-11-25 23:41] LABS: Glucose, Whole Blood 158 mg/dL (60-115)
[2023-11-26] MEDS: Nystatin Cream 15 GM TUBE 1 APPL TOPICAL ×2 (00:46→19:59)
[2023-11-26] MEDS: Nystatin Powder 15 GM BOTTLE 1 APPL TOPICAL ×2 (00:47→19:59)
[2023-11-26] MEDS: hydrOXYzine HCL 25 MG TABLET PO ×2 (01:50→22:25)
[2023-11-26] MEDS: traZODone HCL 50 MG TABLET PO ×2 (01:50→22:25)
[2023-11-26] MEDS: OLANZapine 5 MG TABLET PO ×2 (01:50→18:25)
[2023-11-26] MEDS: Doxycycline Monohydrate 100 MG CAPSULE PO ×2 (06:24→17:27)
[2023-11-26 08:00] VITALS: BP 140/63; PULSE 116; RESP 95; TEMP 36.9; O2SAT 95
[2023-11-26] MEDS: Divalproex Sodium Sprinkles 125 MG CAP.DR.SPR 1500 MG PO ×2 (08:07→19:53)
[2023-11-26] MEDS: Apixaban 5 MG TABLET PO ×2 (08:08→19:52)
[2023-11-26] MEDS: Fluconazole 100 MG TABLET PO (08:08)
[2023-11-26] MEDS: atenoloL 25 MG TABLET PO (08:08)
[2023-11-26] MEDS: chlorproMAZINE HCl 25 MG TABLET 50 MG PO ×3 (08:08→19:52)
[2023-11-26] MEDS: metFORMIN HCl ER 500 MG TAB.ER.24H PO (08:08)
[2023-11-26] MEDS: Furosemide 40 MG TABLET PO (08:08)
[2023-11-26 08:11] LABS: Glucose, Whole Blood 158 mg/dL (60-115)
--- NOTE | 2023-11-26 09:46 | HO.PSYCHPN ---
Subjective Subjective Date of Service: 11/26/23 Reason For Visit: manic aggressive Interim History: Zeinab remains labile. Patient is heard yelling and screaming. She is tolerating the new medication changes. She is less agitated than earlier in the admission although remains irritable and difficult to calm at times. Slept some after receiving Thorazine. Denies active SI. She is anxious about her cellulitis. Review of Systems Review of Systems Abdominal skin folds, perineal area, bilateral inner thighs BLE edema with ? cellulitis Yes Unobtainable due to mental status and Other (Manic, answering questions inappropriately) Constitutional: Reports difficulty sleeping, Reports fatigue and Reports stops breathing during sleep (Obstructive VALERI-refusing of CPAP) Skin/Breast: Reports furuncle (vaginal) Endocrine: Reports fatigue Mental Status Exam Mental Status Exam Patient Appearance: Fatigued, Disheveled, Unkempt and Malodorous Patient Orientation: Person, Place and Situation Level of Consciousness: Awake, Restless, Alert, Follows Commands and Inappropriate Patient Behavior: Talkative, Hyperactive, Cooperative, Suspicious, Hypersexual, Restless, Belligerent, Wandering, Verbal Threats, Swearing, Anxious, Resistive to Care, Fatigued, Distractible, Confused, Good Eye Contact, Uncooperative, Impulsive and Pacing Mood Description: Euphoric, Depressed, Hostile, Cheerful, Anxious, Labile, Angry and Apprehensive Affect Description: Hostile, Labile and Angry Patient Cognition Impaired: Yes Ability to Follow Directions: Fair Speech Pattern: Clear, Perseverating, Spontaneous Speech, Rambling, Cofabulation, Rapid, Excessive, Animated, Loud, Pressured, Includes Profanity and Excited Memory Description: Remote Impaired Diagnostics Vital Signs (24Hr): Vital Signs - 24 hr 11/25/23 18:00 Temperature 98.0 F Pulse Rate 118 H Respiratory Rate 18 Blood Pressure 136/62 Pulse Oximetry 97 Oxygen Delivery Method Room Air BMI result Body Mass Index 60.1 Labs 11/24/23 09:11 11/24/23 09:11 Labs: Laboratory Results - last 48 hr 11/24/23 11/24/23 11/25/23 09:11 21:52 08:09 POC Glucose 233 H 153 H Vitamin B12 306 Folate 15.0 TSH 1.14 11/25/23 11/26/23 23:37 08:08 POC Glucose 158 H 158 H Vitamin B12 Folate TSH Medications Medications Current Medications Acetaminophen (Acetaminophen 325 Mg Tablet) 650 mg PO Q6H PRN PRN Reason: Headache/Pain Mild Scale (1-3) Al Hydroxide/Mg Hydroxide (Magnesium Hydrox/Alum Hydrox 30 Ml Oral.Susp) 30 ml PO Q6H PRN PRN Reason: Heartburn/Nausea Apixaban (Apixaban 5 Mg Tablet) 5 mg PO BID [facility] Last Admin: 11/26/23 08:08 Dose: 5 mg Atenolol (Atenolol 25 Mg Tablet) 25 mg PO DAILY [facility]; Protocol Last Admin: 11/26/23 08:08 Dose: 25 mg Chlorpromazine HCl (Chlorpromazine Hcl 25 Mg Tablet) 50 mg PO TID [facility] Last Admin: 11/26/23 08:08 Dose: 50 mg Chlorpromazine HCl (Chlorpromazine Hcl 100 Mg Tablet) 100 mg PO BID PRN PRN Reason: brendon,psychosis Last Admin: 11/25/23 17:58 Dose: 100 mg Divalproex Sodium (Divalproex Sodium Sprinkles 125 Mg ) 1,500 mg PO BID [facility] Last Admin: 11/26/23 08:07 Dose: 1,500 mg Docusate Sodium (Docusate Sodium 100 Mg Capsule) 100 mg PO BEDTIME [facility] Last Admin: 11/25/23 19:55 Dose: 100 mg Doxycycline Monohydrate (Doxycycline Monohydrate 100 Mg Capsule) 100 mg PO Q12H [facility] Stop: 12/01/23 17:59 Last Admin: 11/26/23 06:24 Dose: 100 mg Fluconazole (Fluconazole 100 Mg Tablet) 100 mg PO DAILY [facility] Stop: 11/28/23 09:00 Last Admin: 11/26/23 08:08 Dose: 100 mg Furosemide (Furosemide 40 Mg Tablet) 40 mg PO DAILY [facility]; Protocol Last Admin: 11/26/23 08:08 Dose: 40 mg Hydroxyzine HCl (Hydroxyzine Hcl 25 Mg Tablet) 25 mg PO Q6H PRN PRN Reason: Anxiety Last Admin: 11/26/23 01:50 Dose: 25 mg Lamotrigine (Lamotrigine 25 Mg Tablet) 25 mg PO BEDTIME [facility] Last Admin: 11/25/23 19:55 Dose: 25 mg Lorazepam (Lorazepam 1 Mg Tablet) 1 mg PO BEDTIME [facility] Last Admin: 11/25/23 19:55 Dose: 1 mg Magnesium Hydroxide (Milk Of Magnesia 30 Ml Oral.Susp) 30 ml PO DAILY PRN PRN Reason: Constipation Metformin HCl (Metformin Hcl Er 500 Mg Tab.Er.24h) 500 mg PO DAILY [facility] Last Admin: 11/26/23 08:08 Dose: 500 mg Multi-Ingred Cream/Lotion/Oil/Oint (Mineral Oil/Petrolatum,White 106 Gm Tube) 1 appl TOPICAL BID [facility] Last Admin: 11/26/23 08:24 Dose: Not Given Multivitamins/Vitamin C (Multivitamin Tablet) 1 tab PO DAILY [facility] Last Admin: 11/26/23 08:24 Dose: Not Given Nicotine (Nicotine 21 Mg Patch.Td24) 21 mg TRANSDERMA DAILY PRN PRN Reason: smoking cessation Nicotine Polacrilex (Nicotine Polacrilex 2 Mg Gum) 4 mg BUCCAL Q2H PRN PRN Reason: Nicotine Cravings Last Admin: 11/24/23 15:15 Dose: 4 mg Pt Own (Culturelle (Probiotics 1 Cap)) 1 cap PO DAILY [facility] Last Admin: 11/26/23 08:24 Dose: Not Given Nystatin (Nystatin Cream 15 Gm Tube) 1 appl TOPICAL BID [facility]; Protocol Last Admin: 11/26/23 08:24 Dose: Not Given Nystatin (Nystatin Powder 15 Gm Bottle) 1 appl TOPICAL BID [facility]; Protocol Last Admin: 11/26/23 08:24 Dose: Not Given Olanzapine (Olanzapine 5 Mg Tablet) 5 mg PO TID PRN PRN Reason: agitation Last Admin: 11/26/23 01:50 Dose: 5 mg Trazodone HCl (Trazodone Hcl 50 Mg Tablet) 50 mg PO BEDTIME MRX1 PRN PRN Reason: Insomnia Last Admin: 11/26/23 01:50 Dose: 50 mg Allergies Allergies Allergy/AdvReac Type Severity Reaction Status Date / Time kiwi [KIWI] Allergy Mild HIVES Verified 11/21/23 05:49 mold [MOLD EXTRACTS*] Allergy Mild HIVES Verified 11/21/23 05:49 Assessment & Plan Assessment & Plan (1) Schizoaffective disorder, bipolar type: Status: Acute Code(s): F25.0 - Schizoaffective disorder, bipolar type Plan 33 yo female, hx of schizoaffective disorder, bipolar type with current acute brendon, DM2, HTN, HLD, Seasonal Asthma, Obesity, Factor Five Leiden. Discharge from medicine after being treated for cellulitis, sepsis and ARF. It appears pt has not been compliant with medications at home and reported difficulty accessing them. VNA has been helping pt and she had asked to take meds independently approximately a week prior to admission. Plan: Diagnostics for 11/23- EKG, CBCD, CMP, Valproate, CRP, A1C, Lipid Panel, TSH, B12, Folate POC bid Today, pt given Olanzapine 10 mg prn this a.m. and Haldol conc 10 mg, Ativan 1 mg this afternoon for mgt of brendon Colace daily Diflucan PO for yeast infection, cream for affected areas Lamictal at hs MVI daily Lorazepam at hs Mineral Oil to skin. Nystatin Powder/Cream to affected areas Compression Stockings on when pt is up during the day Pt refuses CPAP, may need nocturnal O2 prn Monitor BLE edema Monitor skin integrity Ongoing collateral contact with family and providers. 11/24/22 Increase Valproate to 1500 mg bid Discontinue standing Olanzapine Continue Olanzapine prn Chlorpromazine 50 mg tid and 100 mg bid prn Atenolol 25 mg a.m. Culturelle probiotic 1 tab daily 11/25: continue current management and treatment plan. Reason for continued inpatient stay Substantial Risk for: inability to function and rapid decompensation Time Spent With Patient Time: Total time managing care of this patient today ____ minutes.
[2023-11-26 18:00] VITALS: BP 122/67; PULSE 103; RESP 16; TEMP 36.8; O2SAT 95
[2023-11-26] MEDS: LORazepam 1 MG TABLET PO (19:52)
[2023-11-26] MEDS: Docusate Sodium 100 MG CAPSULE PO (19:52)
[2023-11-26] MEDS: lamoTRIgine 25 MG TABLET PO (19:52)
[2023-11-26] MEDS: Mineral Oil/Petrolatum,White 106 GM Tube 1 APPL TOPICAL (19:59)
[2023-11-26 21:20] LABS: Glucose, Whole Blood 184 mg/dL (60-115)
[2023-11-27 06:00] VITALS: BP 134/67; PULSE 110; RESP 18; TEMP 36.9; O2SAT 97
[2023-11-27 08:01] LABS: Glucose, Whole Blood 162 mg/dL (60-115)
[2023-11-27] MEDS: Doxycycline Monohydrate 100 MG CAPSULE PO ×2 (08:12→18:10)
[2023-11-27] MEDS: Divalproex Sodium Sprinkles 125 MG CAP.DR.SPR 1500 MG PO ×2 (08:12→21:25)
[2023-11-27] MEDS: Apixaban 5 MG TABLET PO ×2 (08:13→21:24)
[2023-11-27] MEDS: Multivitamin TABLET 1 TAB PO (08:13)
[2023-11-27] MEDS: Furosemide 40 MG TABLET PO (08:13)
[2023-11-27] MEDS: chlorproMAZINE HCl 25 MG TABLET 50 MG PO ×3 (08:13→21:24)
[2023-11-27] MEDS: Fluconazole 100 MG TABLET PO (08:13)
[2023-11-27] MEDS: atenoloL 25 MG TABLET PO (08:13)
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
[2023-11-27 16:07] LABS: Hematocrit 33.7 % (37.0-47.0); Hemoglobin 10.9 g/dl (12.0-16.0); Mean Corpuscular HGB Conc 32.3 g/dl (31.0-35.0); Mean Corpuscular Hemoglobin 28.2 pg (27.0-33.0); Mean Corpuscular Volume 87.3 fL (80.0-98.0); Mean Platelet Volume 9.4 fL (9.4-12.3); NRBC Pct Auto 0.2 /100WBC (0.0-0.2); Platelet Count 207 X10*3/uL (160-400); Red Blood Count 3.86 X10*6/uL (4.20-5.50); Red Cell Distribution Width 14.2 % (11.0-16.0); White Blood Count 8.5 X10*3/uL (4.8-10.8)
[2023-11-27] MEDS: Clindamycin HCL 300 MG CAPSULE PO ×2 (16:13→21:24)
[2023-11-27 16:22] LABS: Anion Gap 14 (12-20); Blood Urea Nitrogen 7 mg/dL (9-16); Calcium 9.5 mg/dL (8.4-10.2); Carbon Dioxide 31 mmol/L (22-29); Chloride 102 mmol/L (96-108); Creatinine Clr Calc Pharmacy 216.3; Estimated Glomerular Filt Rate > 60; Glucose Random 168 mg/dL (60-115); Potassium 3.4 mmol/L (3.3-5.1); Sodium 144 mmol/L (135-145)
[2023-11-27 17:57] VITALS: BP 105/52; PULSE 99; RESP 18; TEMP 36.7; O2SAT 98
[2023-11-27] MEDS: LORazepam 1 MG TABLET PO (21:24)
[2023-11-27] MEDS: Docusate Sodium 100 MG CAPSULE PO (21:24)
[2023-11-27] MEDS: lamoTRIgine 25 MG TABLET PO (21:24)
[2023-11-27] MEDS: Ammonium Lactate 12 % Lotion 226 GM BOTTLE 1 APPL TOPICAL (21:30)
[2023-11-27] MEDS: Hydrocortisone 1 % Cream 28.35 GM TUBE 1 APPL TOPICAL (21:31)
[2023-11-27] MEDS: Mineral Oil/Petrolatum,White 106 GM Tube 1 APPL TOPICAL (21:32)
[2023-11-27] MEDS: Nystatin Cream 15 GM TUBE 1 APPL TOPICAL (21:32)
[2023-11-27 22:33] LABS: Glucose, Whole Blood 172 mg/dL (60-115)
[2023-11-28] MEDS: Clindamycin HCL 300 MG CAPSULE PO ×4 (03:37→23:21)
[2023-11-28] MEDS: Doxycycline Monohydrate 100 MG CAPSULE PO ×2 (06:28→18:15)
[2023-11-28 10:37] VITALS: BP 125/89; PULSE 89; RESP 18; TEMP 36.4; O2SAT 95
[2023-11-28] MEDS: atenoloL 25 MG TABLET PO (10:38)
[2023-11-28] MEDS: Apixaban 5 MG TABLET PO ×2 (10:38→19:38)
[2023-11-28] MEDS: Divalproex Sodium Sprinkles 125 MG CAP.DR.SPR 1500 MG PO ×2 (10:39→19:33)
[2023-11-28] MEDS: Furosemide 40 MG TABLET PO (10:39)
[2023-11-28] MEDS: Fluconazole 100 MG TABLET PO (10:39)
[2023-11-28] MEDS: metFORMIN HCl ER 500 MG TAB.ER.24H PO (10:39)
[2023-11-28] MEDS: chlorproMAZINE HCl 25 MG TABLET 50 MG PO (10:41)
--- NOTE | 2023-11-28 10:44 | P.PNPSI_ITS ---
Subjective Subjective Date of Service: 11/28/23 Reason For Visit: manic aggressive Subjective Notes: Conditional Voluntary Healthcare Proxy: No Guardianship: No Medical Problems Affecting Mental Status: No Interim History: Zeinab is more sedated today, yet remains labile, presenting with delirium like sx. BLE continue with erythema. Seen by hospitalist service who encouraged compression wraps, socks on at all times. She was changed to Clindamycin over the weekend. Team reports delirium like sx over the weekend-sleep deprived, periods of rage, baseline sx, some napping. Some refusal of meds/treatment at times. Mother visited today. Labs ordered for the a.m. Medication Compliance: Intermittent Side effects from medications: No Attending Groups: No Review of Systems Acute medical concerns: Yes as noted Medical Review of Systems: unchanged Review of Systems Review of Systems BLE erythema Dylan wraps ordered Clindamycin po Mental Status Exam Mental Status Exam Patient Appearance: Fatigued, Disheveled, Unkempt and Malodorous Patient Orientation: Person, Place and Situation Level of Consciousness: Awake, Restless, Alert, Follows Commands and Inappropriate Patient Behavior: Talkative, Hyperactive, Cooperative, Suspicious, Hypersexual, Restless, Belligerent, Wandering, Verbal Threats, Swearing, Anxious, Resistive to Care, Fatigued, Distractible, Confused, Good Eye Contact, Uncooperative, Impulsive and Pacing Mood Description: Euphoric, Depressed, Hostile, Cheerful, Anxious, Labile, Angry and Apprehensive Affect Description: Hostile, Labile and Angry Patient Cognition Impaired: Yes Ability to Follow Directions: Fair Speech Pattern: Clear, Perseverating, Spontaneous Speech, Rambling, Cofabulation, Rapid, Excessive, Animated, Loud, Pressured, Includes Profanity and Excited Memory Description: Remote Impaired Thought Content: positive for Perseveration and positive for Disorganized Diagnostics Vital Signs (24Hr): Vital Signs - 24 hr 11/27/23 17:57 11/28/23 10:37 Temperature 98.0 F 97.5 F Pulse Rate 99 89 Respiratory Rate 18 18 Blood Pressure 105/52 L 125/89 Pulse Oximetry 98 95 Oxygen Delivery Method Room Air Room Air BMI result Body Mass Index 60.1 Labs 11/27/23 15:55 11/27/23 15:55 Labs: Laboratory Results - last 48 hr 11/26/23 11/27/23 11/27/23 21:17 07:55 15:55 WBC 8.5 RBC 3.86 L Hgb 10.9 L Hct 33.7 L MCV 87.3 MCH 28.2 MCHC 32.3 RDW 14.2 Plt Count 207 MPV 9.4 Absolute Nucleated RBC 0.020 H Nucleated RBC % (auto) 0.2 Sodium 144 Potassium 3.4 Chloride 102 Carbon Dioxide 31 H Anion Gap 14 BUN 7 L Creatinine 0.69 Estim Creat Clear Calc 216.3 Estimated GFR > 60 POC Glucose 184 H 162 H Random Glucose 168 H Calcium 9.5 11/27/23 22:27 WBC RBC Hgb Hct MCV MCH MCHC RDW Plt Count MPV Absolute Nucleated RBC Nucleated RBC % (auto) Sodium Potassium Chloride Carbon Dioxide Anion Gap BUN Creatinine Estim Creat Clear Calc Estimated GFR POC Glucose 172 H Random Glucose Calcium Medications Medications Current Medications Acetaminophen (Acetaminophen 325 Mg Tablet) 650 mg PO Q6H PRN PRN Reason: Headache/Pain Mild Scale (1-3) Al Hydroxide/Mg Hydroxide (Magnesium Hydrox/Alum Hydrox 30 Ml Oral.Susp) 30 ml PO Q6H PRN PRN Reason: Heartburn/Nausea Apixaban (Apixaban 5 Mg Tablet) 5 mg PO BID [facility] Last Admin: 11/27/23 21:24 Dose: 5 mg Atenolol (Atenolol 25 Mg Tablet) 25 mg PO DAILY [facility]; Protocol Last Admin: 11/27/23 08:13 Dose: 25 mg Chlorpromazine HCl (Chlorpromazine Hcl 100 Mg Tablet) 100 mg PO BID PRN PRN Reason: brendon,psychosis Last Admin: 11/25/23 17:58 Dose: 100 mg Chlorpromazine HCl (Chlorpromazine Hcl 100 Mg Tablet) 100 mg PO TID [facility] Clindamycin HCl (Clindamycin Hcl 300 Mg Capsule) 300 mg PO Q6H [facility] Last Admin: 11/28/23 03:37 Dose: 300 mg Divalproex Sodium (Divalproex Sodium Sprinkles 125 Mg ) 1,500 mg PO BID [facility] Last Admin: 11/27/23 21:25 Dose: 1,500 mg Docusate Sodium (Docusate Sodium 100 Mg Capsule) 100 mg PO BEDTIME [facility] Last Admin: 11/27/23 21:24 Dose: 100 mg Doxycycline Monohydrate (Doxycycline Monohydrate 100 Mg Capsule) 100 mg PO Q12H [facility] Stop: 12/01/23 17:59 Last Admin: 11/28/23 06:28 Dose: 100 mg Furosemide (Furosemide 40 Mg Tablet) 40 mg PO DAILY [facility]; Protocol Last Admin: 11/27/23 08:13 Dose: 40 mg Hydrocortisone (Hydrocortisone 1 % Cream 28.35 Gm Tube) 1 appl TOPICAL BID [facility]; Protocol Last Admin: 11/27/23 21:31 Dose: 1 appl Hydroxyzine HCl (Hydroxyzine Hcl 25 Mg Tablet) 25 mg PO Q6H PRN PRN Reason: Anxiety Last Admin: 11/26/23 22:25 Dose: 25 mg Lactic Acid (Ammonium Lactate 12 % Lotion 226 Gm Bottle) 1 appl TOPICAL BID [facility]; Protocol Last Admin: 11/27/23 21:30 Dose: 1 appl Lamotrigine (Lamotrigine 25 Mg Tablet) 25 mg PO BEDTIME [facility] Last Admin: 11/27/23 21:24 Dose: 25 mg Lorazepam (Lorazepam 1 Mg Tablet) 1 mg PO BEDTIME [facility] Last Admin: 11/27/23 21:24 Dose: 1 mg Magnesium Hydroxide (Milk Of Magnesia 30 Ml Oral.Susp) 30 ml PO DAILY PRN PRN Reason: Constipation Metformin HCl (Metformin Hcl Er 500 Mg Tab.Er.24h) 500 mg PO DAILY [facility] Last Admin: 11/27/23 08:25 Dose: Not Given Multi-Ingred Cream/Lotion/Oil/Oint (Mineral Oil/Petrolatum,White 106 Gm Tube) 1 appl TOPICAL BID [facility] Last Admin: 11/27/23 21:32 Dose: 1 appl Multivitamins/Vitamin C (Multivitamin Tablet) 1 tab PO DAILY [facility] Last Admin: 11/27/23 08:13 Dose: 1 tab Nicotine (Nicotine 21 Mg Patch.Td24) 21 mg TRANSDERMA DAILY PRN PRN Reason: smoking cessation Nicotine Polacrilex (Nicotine Polacrilex 2 Mg Gum) 4 mg BUCCAL Q2H PRN PRN Reason: Nicotine Cravings Last Admin: 11/24/23 15:15 Dose: 4 mg Pt Own (Culturelle (Probiotics 1 Cap)) 1 cap PO DAILY [facility] Last Admin: 11/27/23 08:25 Dose: Not Given Nystatin (Nystatin Cream 15 Gm Tube) 1 appl TOPICAL BID [facility]; Protocol Last Admin: 11/27/23 21:32 Dose: 1 appl Nystatin (Nystatin Powder 15 Gm Bottle) 1 appl TOPICAL BID [facility]; Protocol Last Admin: 11/27/23 21:33 Dose: Not Given Olanzapine (Olanzapine 5 Mg Tablet) 5 mg PO TID PRN PRN Reason: agitation Last Admin: 11/26/23 18:25 Dose: 5 mg Trazodone HCl (Trazodone Hcl 50 Mg Tablet) 50 mg PO BEDTIME MRX1 PRN PRN Reason: Insomnia Last Admin: 11/26/23 22:25 Dose: 50 mg Allergies Allergies Allergy/AdvReac Type Severity Reaction Status Date / Time kiwi [KIWI] Allergy Mild HIVES Verified 11/21/23 05:49 mold [MOLD EXTRACTS*] Allergy Mild HIVES Verified 11/21/23 05:49 Assessment & Plan Assessment & Plan (1) Schizoaffective disorder, bipolar type: Status: Acute Code(s): F25.0 - Schizoaffective disorder, bipolar type Plan 33 yo female, hx of schizoaffective disorder, bipolar type with current acute brendon, DM2, HTN, HLD, Seasonal Asthma, Obesity, Factor Five Leiden. Discharge from medicine after being treated for cellulitis, sepsis and ARF. It appears pt has not been compliant with medications at home and reported difficulty accessing them. VNA has been helping pt and she had asked to take meds independently approximately a week prior to admission. Plan: Diagnostics for 11/23- EKG, CBCD, CMP, Valproate, CRP, A1C, Lipid Panel, TSH, B12, Folate POC bid Today, pt given Olanzapine 10 mg prn this a.m. and Haldol conc 10 mg, Ativan 1 mg this afternoon for mgt of brendon Colace daily Diflucan PO for yeast infection, cream for affected areas Lamictal at hs MVI daily Lorazepam at hs Mineral Oil to skin. Nystatin Powder/Cream to affected areas Compression Stockings on when pt is up during the day Pt refuses CPAP, may need nocturnal O2 prn Monitor BLE edema Monitor skin integrity Ongoing collateral contact with family and providers. 11/24/22 Increase Valproate to 1500 mg bid Discontinue standing Olanzapine Continue Olanzapine prn Chlorpromazine 50 mg tid and 100 mg bid prn Atenolol 25 mg a.m. Culturelle probiotic 1 tab daily 11/25: continue current management and treatment plan. 11/26: continue current management and treatment plan. 11/27: Increase Chlorpromazine to 100 mg tid Dylan wraps BLE Socks on at all times Hospitalist service consultations much appreciated. Informed Consent: does not understand Reason for continued inpatient stay Substantial Risk for: rapid decompensation and med/psych decompensation Time Spent With Patient Time: Total time managing care of this patient today ____ minutes.
[2023-11-28] MEDS: Mineral Oil/Petrolatum,White 106 GM Tube 1 APPL TOPICAL (10:59)
[2023-11-28] MEDS: Hydrocortisone 1 % Cream 28.35 GM TUBE 1 APPL TOPICAL ×2 (10:59→20:15)
[2023-11-28] MEDS: Ammonium Lactate 12 % Lotion 226 GM BOTTLE 1 APPL TOPICAL ×2 (10:59→20:15)
--- NOTE | 2023-11-28 13:01 | PM.EVENT ---
Event Note Date of Service: 11/28/23 Event Note: Pt seen in follow up for cellulitis RLE. Patient has received 3 doses of clindamycin after being transitioned from doxycyline due to concerns for worsening erythema of the posterior right lower leg. The patient reports she is concerned about the swelling in the RLE. I have reviewed prior notes from my colleague as well as notes from wound RN. On review of chart there is no leukocytosis and shes is afebrile. On exam, patient has patchy blanching erythema of the distal half of the BLE without well defined borders. The legs are NOT warm. The is a slight scab of the dorsal aspect of the right foot without any purulent drainage. There is dried peeling skin on the plantar surface of the feet and between the toes. Toenails are noted to be overgrown. There is dirt of the plantar surface of the feet and pieces of hair pulled from between the patient's right toes. She is not wearing any footwear or compression devices. See photos. Laboratory Results - last 24 hr 11/27/23 11/27/23 15:55 22:27 WBC 8.5 RBC 3.86 L Hgb 10.9 L Hct 33.7 L MCV 87.3 MCH 28.2 MCHC 32.3 RDW 14.2 Plt Count 207 MPV 9.4 Absolute Nucleated RBC 0.020 H Nucleated RBC % (auto) 0.2 Sodium 144 Potassium 3.4 Chloride 102 Carbon Dioxide 31 H Anion Gap 14 BUN 7 L Creatinine 0.69 Estim Creat Clear Calc 216.3 Estimated GFR > 60 POC Glucose 172 H Random Glucose 168 H Calcium 9.5 Plan: Resolving cellulitis RLE/BLE edema -there is no warmth, worsening erythema, purulent drainage, leukocytosis, or fevers to suggest infection/worsening infection. That being said, efforts must be made to prevent infection/reinfection with preventative measures/hygiene that have been recommended by our service and building insulation installer. There is no indication for IV abx at this time. No need for inpt medical transfer at this time. Findings and recommendations discussed with patient, RN, and psychiatrist. -Continue clindamycin as ordered x5 days (20 doses total) -Encourage hygiene with regular showers -Wear appropriate footwear. Clean socks should be worn at all times as patient is walking around barefoot -Wear compression stockings/edema wear which I understand have been ordered. In the meantime, recommend neeru wraps with appropriate supervision as required for the time being -Recommend ammonium lactate to legs bilaterally 1-2 times daily. Use hydrocortisone BID -continue lasix -re-consult wound rn prn We will continue following along for ongoing monitoring Time Spent With Patient Time: Total time managing care of this patient today ____ minutes.
[2023-11-28] MEDS: chlorproMAZINE HCl 100 MG TABLET PO ×2 (14:09→19:37)
[2023-11-28] MEDS: Nystatin Powder 15 GM BOTTLE 1 APPL TOPICAL (14:31)
[2023-11-28 17:12] VITALS: BP 125/72; PULSE 102; RESP 18; TEMP 36.4; O2SAT 98
[2023-11-28] MEDS: Docusate Sodium 100 MG CAPSULE PO (19:37)
[2023-11-28] MEDS: lamoTRIgine 25 MG TABLET PO (19:37)
[2023-11-28] MEDS: LORazepam 1 MG TABLET PO (19:39)
[2023-11-28] MEDS: Nystatin Cream 15 GM TUBE 1 APPL TOPICAL (20:15)
[2023-11-28 20:59] LABS: Glucose, Whole Blood 187 mg/dL (60-115)
[2023-11-29 00:08] VITALS: BMI 62.4
[2023-11-29] MEDS: Clindamycin HCL 300 MG CAPSULE PO ×4 (03:16→21:22)
[2023-11-29] MEDS: Doxycycline Monohydrate 100 MG CAPSULE PO ×2 (05:11→18:49)
[2023-11-29 08:04] LABS: Glucose, Whole Blood 153 mg/dL (60-115)
[2023-11-29] MEDS: Divalproex Sodium Sprinkles 125 MG CAP.DR.SPR 1500 MG PO ×2 (08:21→21:11)
[2023-11-29 08:25] VITALS: BP 124/72; PULSE 118; RESP 20; TEMP 36.5; O2SAT 93
[2023-11-29] MEDS: atenoloL 25 MG TABLET PO (08:30)
[2023-11-29] MEDS: Furosemide 40 MG TABLET PO (08:30)
[2023-11-29] MEDS: metFORMIN HCl ER 500 MG TAB.ER.24H PO (08:30)
[2023-11-29] MEDS: Apixaban 5 MG TABLET PO ×2 (08:30→21:11)
[2023-11-29 09:41] LABS: Hematocrit 34.5 % (37.0-47.0); Hemoglobin 11.1 g/dl (12.0-16.0); Mean Corpuscular HGB Conc 32.2 g/dl (31.0-35.0); Mean Corpuscular Hemoglobin 28.2 pg (27.0-33.0); Mean Corpuscular Volume 87.8 fL (80.0-98.0); Mean Platelet Volume 10.1 fL (9.4-12.3); Platelet Count 198 X10*3/uL (160-400); Red Blood Count 3.93 X10*6/uL (4.20-5.50); Red Cell Distribution Width 14.2 % (11.0-16.0); White Blood Count 7.5 X10*3/uL (4.8-10.8)
[2023-11-29 09:45] LABS: Alanine Aminotransferase 14 U/L (0-31); Albumin Level 3.9 g/dL (3.5-5.0); Alkaline Phosphatase 62 U/L (39-117); Anion Gap 20 (12-20); Aspartate Amino Transferase 11 U/L (5-31); Bilirubin Total 0.5 mg/dL (0.0-1.0); Blood Urea Nitrogen 8 mg/dL (9-16); Calcium 9.6 mg/dL (8.4-10.2); Carbon Dioxide 31 mmol/L (22-29); Chloride 96 mmol/L (96-108); Creatinine Clr Calc Pharmacy 225.1; Estimated Glomerular Filt Rate > 60; Glucose Random 171 mg/dL (60-115); Potassium 3.6 mmol/L (3.3-5.1); Sodium 143 mmol/L (135-145)
[2023-11-29 09:52] LABS: Ammonia 21 umol/L (13-55)
[2023-11-29 09:57] LABS: Valproate 96.8 mcg/mL (50.0-100.0)
--- NOTE | 2023-11-29 12:28 | P.PNPSI_ITS ---
Subjective Subjective Date of Service: 11/29/23 Reason For Visit: manic aggressive Subjective Notes: Conditional Voluntary Healthcare Proxy: No Guardianship: No Medical Problems Affecting Mental Status: No Interim History: Team reports three hours of sleep. Decreased lability and agitation with chlorpromazine, dosage decrease to 25 mg bid, 100 mg hs to assist with sleep. Continues with anxiety, paranoia, intermittent agitation. Hospitalist team continues to follow pt's medical course which is much appreciated. Care discussed with pt's father via phone this a.m. He reports pt sounded sedate and overmedicated-reviewed current regime and changes. Discussed interventions that he felt would assist pt in lifting her mood. Care discussed with mother when she visited. Review of medications, doses, medical care provided. Mother and pt were able to visit and pt feeling supported when family is connecting with her. Medication Compliance: Yes Side effects from medications: No Attending Groups: No Review of Systems Acute medical concerns: Yes cellulitis Medical Review of Systems: unchanged Review of Systems Review of Systems BLE cellulitis Mental Status Exam Mental Status Exam Patient Appearance: Fatigued Patient Orientation: Person, Place and Situation Level of Consciousness: Alert Patient Behavior: Talkative, Cooperative, Wandering, Verbal Threats, Anxious, Resistive to Care (at times), Fatigued, Distractible, Confused, Good Eye Contact, Uncooperative (at times) and Pacing Mood Description: Suspicious (at times), Depressed, Hostile, Cheerful, Anxious, Labile and Apprehensive Affect Description: Labile Patient Cognition Impaired: Yes Ability to Follow Directions: Fair Speech Pattern: Clear and Spontaneous Speech Memory Description: Remote Impaired Hallucinations: None Delusions: Paranoid Ideation (at times) Thought Content: positive for [place], positive for Circumstantial, positive for Perseveration, positive for Loose Associations and positive for Disorganized Depressive Symptoms: Difficulty Sleeping and Unhappiness Judgement: Poor Diagnostics Vital Signs (24Hr): Vital Signs - 24 hr 11/28/23 17:12 11/29/23 08:25 Temperature 97.5 F 97.7 F Pulse Rate 102 H 118 H Respiratory Rate 18 20 Blood Pressure 125/72 124/72 Pulse Oximetry 98 93 Oxygen Delivery Method Room Air Room Air BMI result Body Mass Index 62.4 Labs 11/29/23 09:08 11/29/23 09:08 Labs: Laboratory Results - last 48 hr 11/27/23 11/27/23 11/28/23 15:55 22:27 20:56 WBC 8.5 RBC 3.86 L Hgb 10.9 L Hct 33.7 L MCV 87.3 MCH 28.2 MCHC 32.3 RDW 14.2 Plt Count 207 MPV 9.4 Absolute Nucleated RBC 0.020 H Nucleated RBC % (auto) 0.2 Sodium 144 Potassium 3.4 Chloride 102 Carbon Dioxide 31 H Anion Gap 14 BUN 7 L Creatinine 0.69 Estim Creat Clear Calc 216.3 Estimated GFR > 60 POC Glucose 172 H 187 H Random Glucose 168 H Calcium 9.5 Total Bilirubin AST ALT Alkaline Phosphatase Ammonia Total Protein Albumin Valproic Acid 11/29/23 11/29/23 07:57 09:08 WBC 7.5 RBC 3.93 L Hgb 11.1 L Hct 34.5 L MCV 87.8 MCH 28.2 MCHC 32.2 RDW 14.2 Plt Count 198 MPV 10.1 Absolute Nucleated RBC 0.000 Nucleated RBC % (auto) 0.0 Sodium 143 Potassium 3.6 Chloride 96 Carbon Dioxide 31 H Anion Gap 20 BUN 8 L Creatinine 0.68 Estim Creat Clear Calc 225.1 Estimated GFR > 60 POC Glucose 153 H Random Glucose 171 H Calcium 9.6 Total Bilirubin 0.5 AST 11 ALT 14 Alkaline Phosphatase 62 Ammonia 21 Total Protein 7.0 Albumin 3.9 Valproic Acid 96.8 Medications Medications Current Medications Acetaminophen (Acetaminophen 325 Mg Tablet) 650 mg PO Q6H PRN PRN Reason: Headache/Pain Mild Scale (1-3) Al Hydroxide/Mg Hydroxide (Magnesium Hydrox/Alum Hydrox 30 Ml Oral.Susp) 30 ml PO Q6H PRN PRN Reason: Heartburn/Nausea Apixaban (Apixaban 5 Mg Tablet) 5 mg PO BID [facility] [place] Last Admin: 11/29/23 08:30 Dose: 5 mg Atenolol (Atenolol 25 Mg Tablet) 25 mg PO DAILY [facility]; Protocol Last Admin: 11/29/23 08:30 Dose: 25 mg Chlorpromazine HCl (Chlorpromazine Hcl 100 Mg Tablet) 100 mg PO BID PRN PRN Reason: brendon,psychosis Last Admin: 11/25/23 17:58 Dose: 100 mg Chlorpromazine HCl (Chlorpromazine Hcl 25 Mg Tablet) 25 mg PO TID [facility] Clindamycin HCl (Clindamycin Hcl 300 Mg Capsule) 300 mg PO Q6H [facility] [place] Stop: 12/02/23 10:01 Last Admin: 11/29/23 11:00 Dose: 300 mg Divalproex Sodium (Divalproex Sodium Sprinkles 125 Mg ) 1,500 mg PO BID [facility] Last Admin: 11/29/23 08:21 Dose: 1,500 mg Docusate Sodium (Docusate Sodium 100 Mg Capsule) 100 mg PO BEDTIME [facility] Last Admin: 11/28/23 19:37 Dose: 100 mg Doxycycline Monohydrate (Doxycycline Monohydrate 100 Mg Capsule) 100 mg PO Q12H [facility] [place] Stop: 12/01/23 17:59 Last Admin: 11/29/23 05:11 Dose: 100 mg Furosemide (Furosemide 40 Mg Tablet) 40 mg PO DAILY [facility] [place]; Protocol Last Admin: 11/29/23 08:30 Dose: 40 mg Hydrocortisone (Hydrocortisone 1 % Cream 28.35 Gm Tube) 1 appl TOPICAL BID [facility]; Protocol Last Admin: 11/29/23 08:33 Dose: Not Given Hydroxyzine HCl (Hydroxyzine Hcl 25 Mg Tablet) 25 mg PO Q6H PRN PRN Reason: Anxiety Last Admin: 11/26/23 22:25 Dose: 25 mg Lactic Acid (Ammonium Lactate 12 % Lotion 226 Gm Bottle) 1 appl TOPICAL BID [facility]; Protocol Last Admin: 11/29/23 08:34 Dose: Not Given Lamotrigine (Lamotrigine 25 Mg Tablet) 25 mg PO BEDTIME [facility] Last Admin: 11/28/23 19:37 Dose: 25 mg Lorazepam (Lorazepam 1 Mg Tablet) 1 mg PO BEDTIME [facility] Last Admin: 11/28/23 19:39 Dose: 1 mg Magnesium Hydroxide (Milk Of Magnesia 30 Ml Oral.Susp) 30 ml PO DAILY PRN PRN Reason: Constipation Metformin HCl (Metformin Hcl Er 500 Mg Tab.Er.24h) 500 mg PO DAILY [facility] [place] Last Admin: 11/29/23 08:30 Dose: 500 mg Multi-Ingred Cream/Lotion/Oil/Oint (Mineral Oil/Petrolatum,White 106 Gm Tube) 1 appl TOPICAL BID [facility] Last Admin: 11/29/23 08:34 Dose: Not Given Multivitamins/Vitamin C (Multivitamin Tablet) 1 tab PO DAILY [facility] Last Admin: 03/26/24 08:34 Dose: Not Given Nicotine (Nicotine 21 Mg Patch.Td24) 21 mg TRANSDERMA DAILY PRN PRN Reason: smoking cessation Nicotine Polacrilex (Nicotine Polacrilex 2 Mg Gum) 4 mg BUCCAL Q2H PRN PRN Reason: Nicotine Cravings Last Admin: 11/24/23 15:15 Dose: 4 mg Pt Own (Culturelle (Probiotics 1 Cap)) 1 cap PO DAILY [facility] Last Admin: 11/29/23 08:34 Dose: Not Given Nystatin (Nystatin Cream 15 Gm Tube) 1 appl TOPICAL BID [facility]; Protocol Last Admin: 11/29/23 08:34 Dose: Not Given Nystatin (Nystatin Powder 15 Gm Bottle) 1 appl TOPICAL BID [facility]; Protocol Last Admin: 11/29/23 08:34 Dose: Not Given Olanzapine (Olanzapine 5 Mg Tablet) 5 mg PO TID PRN PRN Reason: agitation Last Admin: 11/26/23 18:25 Dose: 5 mg Trazodone HCl (Trazodone Hcl 50 Mg Tablet) 50 mg PO BEDTIME MRX1 PRN PRN Reason: Insomnia Last Admin: 11/26/23 22:25 Dose: 50 mg Allergies Allergies Allergy/AdvReac Type Severity Reaction Status Date / Time kiwi [KIWI] Allergy Mild HIVES Verified 11/21/23 05:49 mold [MOLD EXTRACTS*] Allergy Mild HIVES Verified 11/21/23 05:49 Assessment & Plan Assessment & Plan (1) Schizoaffective disorder, bipolar type: Status: Acute Code(s): F25.0 - Schizoaffective disorder, bipolar type Plan 33 yo female, hx of schizoaffective disorder, bipolar type with current acute brendon, DM2, HTN, HLD, Seasonal Asthma, Obesity, Factor Five Leiden. Discharge from medicine after being treated for cellulitis, sepsis and ARF. It appears pt has not been compliant with medications at home and reported difficulty accessing them. VNA has been helping pt and she had asked to take meds independently approximately a week prior to admission. Plan: Diagnostics for 11/23- EKG, CBCD, CMP, Valproate, CRP, A1C, Lipid Panel, TSH, B12, Folate POC bid Today, pt given Olanzapine 10 mg prn this a.m. and Haldol conc 10 mg, Ativan 1 mg this afternoon for mgt of brendon Colace daily Diflucan PO for yeast infection, cream for affected areas Lamictal at hs MVI daily Lorazepam at hs Mineral Oil to skin. Nystatin Powder/Cream to affected areas Compression Stockings on when pt is up during the day Pt refuses CPAP, may need nocturnal O2 prn Monitor BLE edema Monitor skin integrity Ongoing collateral contact with family and providers. 11/24/22 Increase Valproate to 1500 mg bid Discontinue standing Olanzapine Continue Olanzapine prn Chlorpromazine 50 mg tid and 100 mg bid prn Atenolol 25 mg a.m. Culturelle probiotic 1 tab daily 11/25: continue current management and treatment plan. 11/26: continue current management and treatment plan. 11/27: Increase Chlorpromazine to 100 mg tid Dylan wraps BLE Socks on at all times Hospitalist service consultations much appreciated. 11/28 Decrease Chlorpromazine to 25 mg bid and 100 mg hs Informed Consent: does not understand Reason for continued inpatient stay Substantial Risk for: med/psych decompensation Time Spent With Patient Time: Total time managing care of this patient today ____ minutes.
[2023-11-29] MEDS: Ammonium Lactate 12 % Lotion 226 GM BOTTLE 1 APPL TOPICAL ×2 (12:33→21:20)
[2023-11-29] MEDS: Hydrocortisone 1 % Cream 28.35 GM TUBE 1 APPL TOPICAL (12:33)
[2023-11-29] MEDS: chlorproMAZINE HCl 25 MG TABLET PO (14:17)
[2023-11-29] MEDS: Acetaminophen 325 MG TABLET 650 MG PO (16:42)
--- NOTE | 2023-11-29 17:13 | PC.NURSE ---
PT reporting left ovary pain intermittently over the last couple of days. PT reporting this has happened in the past and feels this pain is similar to when she had a cyst. Tylenol given with some positive effect.
[2023-11-29 19:45] VITALS: BP 122/59; PULSE 112; RESP 16; TEMP 36.7; O2SAT 97
[2023-11-29] MEDS: LORazepam 1 MG TABLET PO (21:11)
[2023-11-29] MEDS: lamoTRIgine 25 MG TABLET PO (21:12)
[2023-11-29] MEDS: chlorproMAZINE HCl 100 MG TABLET PO (21:12)
[2023-11-29 21:21] LABS: Glucose, Whole Blood 161 mg/dL (60-115)
[2023-11-29] MEDS: Nystatin Cream 15 GM TUBE 1 APPL TOPICAL (21:21)
[2023-11-29] MEDS: Mineral Oil/Petrolatum,White 106 GM Tube 1 APPL TOPICAL (21:23)
[2023-11-29] MEDS: Magnesium Hydrox/Alum Hydrox 30 ML ORAL.SUSP PO (22:00)
[2023-11-30] MEDS: Doxycycline Monohydrate 100 MG CAPSULE PO ×2 (04:49→19:06)
[2023-11-30] MEDS: Clindamycin HCL 300 MG CAPSULE PO ×4 (04:49→21:32)
[2023-11-30 12:15] VITALS: BP 135/86; PULSE 118; RESP 18; TEMP 36.4; O2SAT 98
[2023-11-30 12:28] LABS: Glucose, Whole Blood 145 mg/dL (60-115)
[2023-11-30] MEDS: Apixaban 5 MG TABLET PO ×2 (12:31→20:06)
[2023-11-30] MEDS: atenoloL 25 MG TABLET PO (12:31)
[2023-11-30] MEDS: Divalproex Sodium Sprinkles 125 MG CAP.DR.SPR 1500 MG PO ×2 (12:31→20:06)
[2023-11-30] MEDS: Multivitamin TABLET 1 TAB PO (12:32)
[2023-11-30] MEDS: chlorproMAZINE HCl 25 MG TABLET PO (12:32)
[2023-11-30] MEDS: Furosemide 40 MG TABLET PO (12:32)
[2023-11-30] MEDS: metFORMIN HCl ER 500 MG TAB.ER.24H PO (12:32)
[2023-11-30] MEDS: Nystatin Powder 15 GM BOTTLE 1 APPL TOPICAL ×2 (13:03→21:40)
--- NOTE | 2023-11-30 14:27 | PM.EVENT ---
Event Note Date of Service: 11/30/23 Event Note: Pt seen in follow up for ble edema and RLE cellulitis. The patient is agitated and is not agreeable to moving to a more private room such as her bedroom or the exam room for evaluation and states she wishes to be examined in the kitchen in front of witnesses per her report. She is not agreeable to photos being taken of her legs today. Please see photos from note by this provider on 11/27, there is little change in appearance from visit on 11.27. There is erythema of the distal half of the lower legs bilaterally as seen previously WITHOUT any warmth. There is patchy erythema on the dorsal aspect of the feet bilaterally with subcentimeter shallow ulceration on the dorsum of the right foot with clean dry dressing in place. No purulent drainage. She is not wearing socks, per staff she is not agreeable wearing these, but feet are clean and she is seated with legs elevated on a chair. There is 2+ pitting edema bilaterally. She has been tachycardic since admission with EKG reading sinus tach, rate 114. She does have known PE and is fully anticoagulated on eliquis 5mg BID. Tachycardia possibly related to aggitation. Blood pressures are stable. There are no other SIRS criteria to suggest sepsis and there is little suspicion for worsening infection/reinfection at this time based on clinical appearance. The patient has chronic venous insufficiency and liekly venous stasis which also contributes to erythema in her legs. There is no warmth, purulent drainage, leukocytosis, fevers to suggest new infection. That being said, would continue to recommend hygeine practices as previously advised to prevent this. She should complete course of clindamycin as prescribed. Lactic acid was ordered earlier today by psychiatry and is elevated at 3.0 likely related to metformin use. This is not severe sepsis, pt does not meets SIRS criteria. Should there be suspicion for evolving sepsis/infection, please reach out to hospitalist service as soon as possible. Discussed with psychiatrist. We will continue following patient as well. Please do not hesitate to reach out with any questions, concerns, or acute medical issues. Time Spent With Patient Time: Total time managing care of this patient today ____ minutes.
[2023-11-30 14:31] LABS: Reflex Lactate? Lactic Acid Added
--- NOTE | 2023-11-30 14:36 | P.PNPSI_ITS ---
Subjective Subjective Date of Service: 11/30/23 Reason For Visit: manic aggressive Subjective Notes: Conditional Voluntary Healthcare Proxy: Yes Guardianship: No Medical Problems Affecting Mental Status: No Interim History: Team reports pt slept 8 hours last night and slept late this a.m. She is tolerating chlorpromazine decrease and 100 mg at hs for the first night has provided her with a consistent rest period. Will continue to assess daytime doses for efficacy and SE. She presents with some mental status improvement today-remains with lability, no severe agitation or aggressive threats, with delusional content-tells tw and team that she delivered a child last evening via . Tearful at times, cheerful at times, attempting to make connections with her family-all members. Team, hospitalist are monitoring physical sx. Pt seen by ELIGIO Shaver who has been closely monitoring. Pt to be seen by infectious disease websphere consultant, Dr. Riley for eval as well. Pt not meeting SIRS criteria per team at this time- Lactic acid level drawn today- 3.0 and 3.9. This was reviewed by medical team- Metformin is thought to be the precipitant along with fatty liver disease. Team has placed a surgical consult to evaluate for possible vasculitis. Medication Compliance: Yes Side effects from medications: No Attending Groups: No Review of Systems Acute medical concerns: Yes as noted Review of Systems Review of Systems as noted Mental Status Exam Mental Status Exam Patient Appearance: Fatigued Patient Orientation: Person and Place Level of Consciousness: Alert Patient Behavior: Talkative, Cooperative, Wandering, Anxious, Fatigued, Distractible, Confused and Good Eye Contact Mood Description: Labile Affect Description: Labile Patient Cognition Impaired: Yes Ability to Follow Directions: Fair Speech Pattern: Clear and Spontaneous Speech Memory Description: Remote Impaired Hallucinations: None Delusions: Present Thought Content: positive for [place], positive for Circumstantial, positive for Perseveration, positive for Loose Associations and positive for Disorganized Depressive Symptoms: Crying Spells Judgement: Poor Diagnostics Vital Signs (24Hr): Vital Signs - 24 hr 11/29/23 19:45 Temperature 98.1 F Pulse Rate 112 H Respiratory Rate 16 Blood Pressure 122/59 L Pulse Oximetry 97 Oxygen Delivery Method Room Air BMI result Body Mass Index 62.4 Labs 11/30/23 17:19 11/29/23 09:08 Labs: Laboratory Results - last 48 hr 11/28/23 11/29/23 11/29/23 20:56 07:57 09:08 WBC 7.5 RBC 3.93 L Hgb 11.1 L Hct 34.5 L MCV 87.8 MCH 28.2 MCHC 32.2 RDW 14.2 Plt Count 198 MPV 10.1 Absolute Nucleated RBC 0.000 Nucleated RBC % (auto) 0.0 Sodium 143 Potassium 3.6 Chloride 96 Carbon Dioxide 31 H Anion Gap 20 BUN 8 L Creatinine 0.68 Estim Creat Clear Calc 225.1 Estimated GFR > 60 POC Glucose 187 H 153 H Random Glucose 171 H Lactic Acid Calcium 9.6 Total Bilirubin 0.5 AST 11 ALT 14 Alkaline Phosphatase 62 Ammonia 21 Total Protein 7.0 Albumin 3.9 Valproic Acid 96.8 11/29/23 11/30/23 11/30/23 21:17 12:21 12:28 WBC RBC Hgb Hct MCV MCH MCHC RDW Plt Count MPV Absolute Nucleated RBC Nucleated RBC % (auto) Sodium Potassium Chloride Carbon Dioxide Anion Gap BUN Creatinine Estim Creat Clear Calc Estimated GFR POC Glucose 161 H 145 H Random Glucose Lactic Acid 3.0 H* Calcium Total Bilirubin AST ALT Alkaline Phosphatase Ammonia Total Protein Albumin Valproic Acid Medications Medications Current Medications Acetaminophen (Acetaminophen 325 Mg Tablet) 650 mg PO Q6H PRN PRN Reason: Headache/Pain Mild Scale (1-3) Last Admin: 11/29/23 16:42 Dose: 650 mg Al Hydroxide/Mg Hydroxide (Magnesium Hydrox/Alum Hydrox 30 Ml Oral.Susp) 30 ml PO Q6H PRN PRN Reason: Heartburn/Nausea Last Admin: 11/29/23 22:00 Dose: 30 ml Apixaban (Apixaban 5 Mg Tablet) 5 mg PO BID [facility] Last Admin: 11/30/23 12:31 Dose: 5 mg Atenolol (Atenolol 25 Mg Tablet) 25 mg PO DAILY [facility]; Protocol Last Admin: 11/30/23 12:31 Dose: 25 mg Chlorpromazine HCl (Chlorpromazine Hcl 100 Mg Tablet) 100 mg PO BID PRN PRN Reason: brendon,psychosis Last Admin: 11/25/23 17:58 Dose: 100 mg Chlorpromazine HCl (Chlorpromazine Hcl 25 Mg Tablet) 25 mg PO BID@0900,1500 [facility] Last Admin: 11/30/23 12:32 Dose: 25 mg Chlorpromazine HCl (Chlorpromazine Hcl 100 Mg Tablet) 100 mg PO BEDTIME [facility] Last Admin: 11/29/23 21:12 Dose: 100 mg Clindamycin HCl (Clindamycin Hcl 300 Mg Capsule) 300 mg PO Q6H [facility] Stop: 12/02/23 10:01 Last Admin: 11/30/23 12:31 Dose: 300 mg Divalproex Sodium (Divalproex Sodium Sprinkles 125 Mg ) 1,500 mg PO BID [facility] Last Admin: 11/30/23 12:31 Dose: 1,500 mg Docusate Sodium (Docusate Sodium 100 Mg Capsule) 100 mg PO BEDTIME [facility] Last Admin: 11/29/23 21:20 Dose: Not Given Doxycycline Monohydrate (Doxycycline Monohydrate 100 Mg Capsule) 100 mg PO Q12H [facility] Stop: 12/01/23 17:59 Last Admin: 11/30/23 04:49 Dose: 100 mg Furosemide (Furosemide 40 Mg Tablet) 40 mg PO DAILY [facility]; Protocol Last Admin: 11/30/23 12:32 Dose: 40 mg Hydrocortisone (Hydrocortisone 1 % Cream 28.35 Gm Tube) 1 appl TOPICAL BID [facility]; Protocol Last Admin: 11/29/23 21:35 Dose: Not Given Hydroxyzine HCl (Hydroxyzine Hcl 25 Mg Tablet) 25 mg PO Q6H PRN PRN Reason: Anxiety Last Admin: 11/26/23 22:25 Dose: 25 mg Lactic Acid (Ammonium Lactate 12 % Lotion 226 Gm Bottle) 1 appl TOPICAL BID [facility]; Protocol Last Admin: 11/29/23 21:20 Dose: 1 appl Lamotrigine (Lamotrigine 25 Mg Tablet) 25 mg PO BEDTIME [facility] Last Admin: 11/29/23 21:12 Dose: 25 mg Lorazepam (Lorazepam 1 Mg Tablet) 1 mg PO BEDTIME [facility] Last Admin: 11/29/23 21:11 Dose: 1 mg Magnesium Hydroxide (Milk Of Magnesia 30 Ml Oral.Susp) 30 ml PO DAILY PRN PRN Reason: Constipation Metformin HCl (Metformin Hcl Er 500 Mg Tab.Er.24h) 500 mg PO DAILY [facility] Last Admin: 11/30/23 12:32 Dose: 500 mg Multi-Ingred Cream/Lotion/Oil/Oint (Mineral Oil/Petrolatum,White 106 Gm Tube) 1 appl TOPICAL BID [facility] Last Admin: 11/29/23 21:23 Dose: 1 appl Multivitamins/Vitamin C (Multivitamin Tablet) 1 tab PO DAILY [facility] Last Admin: 11/30/23 12:32 Dose: 1 tab Nicotine (Nicotine 21 Mg Patch.Td24) 21 mg TRANSDERMA DAILY PRN PRN Reason: smoking cessation Nicotine Polacrilex (Nicotine Polacrilex 2 Mg Gum) 4 mg BUCCAL Q2H PRN PRN Reason: Nicotine Cravings Last Admin: 11/24/23 15:15 Dose: 4 mg Pt Own (Culturelle (Probiotics 1 Cap)) 1 cap PO DAILY [facility] Last Admin: 11/30/23 12:30 Dose: 1 cap Nystatin (Nystatin Cream 15 Gm Tube) 1 appl TOPICAL BID [facility]; Protocol Last Admin: 11/30/23 13:04 Dose: Not Given Nystatin (Nystatin Powder 15 Gm Bottle) 1 appl TOPICAL BID [facility]; Protocol Last Admin: 11/30/23 13:03 Dose: 1 appl Olanzapine (Olanzapine 5 Mg Tablet) 5 mg PO TID PRN PRN Reason: agitation Last Admin: 11/26/23 18:25 Dose: 5 mg Trazodone HCl (Trazodone Hcl 50 Mg Tablet) 50 mg PO BEDTIME MRX1 PRN PRN Reason: Insomnia Last Admin: 11/26/23 22:25 Dose: 50 mg Allergies Allergies Allergy/AdvReac Type Severity Reaction Status Date / Time kiwi [KIWI] Allergy Mild HIVES Verified 11/21/23 05:49 mold [MOLD EXTRACTS*] Allergy Mild HIVES Verified 11/21/23 05:49 Assessment & Plan Assessment & Plan (1) Schizoaffective disorder, bipolar type: Status: Acute Code(s): F25.0 - Schizoaffective disorder, bipolar type Plan 33 yo female, hx of schizoaffective disorder, bipolar type with current acute brendon, DM2, HTN, HLD, Seasonal Asthma, Obesity, Factor Five Leiden. Discharge from medicine after being treated for cellulitis, sepsis and ARF. It appears pt has not been compliant with medications at home and reported difficulty accessing them. VNA has been helping pt and she had asked to take meds independently approximately a week prior to admission. Plan: Diagnostics for 11/23- EKG, CBCD, CMP, Valproate, CRP, A1C, Lipid Panel, TSH, B12, Folate POC bid Today, pt given Olanzapine 10 mg prn this a.m. and Haldol conc 10 mg, Ativan 1 mg this afternoon for mgt of brendon Colace daily Diflucan PO for yeast infection, cream for affected areas Lamictal at hs MVI daily Lorazepam at hs Mineral Oil to skin. Nystatin Powder/Cream to affected areas Compression Stockings on when pt is up during the day Pt refuses CPAP, may need nocturnal O2 prn Monitor BLE edema Monitor skin integrity Ongoing collateral contact with family and providers. 11/24/22 Increase Valproate to 1500 mg bid Discontinue standing Olanzapine Continue Olanzapine prn Chlorpromazine 50 mg tid and 100 mg bid prn Atenolol 25 mg a.m. Culturelle probiotic 1 tab daily 11/25: continue current management and treatment plan. 11/26: continue current management and treatment plan. 11/27: Increase Chlorpromazine to 100 mg tid Dylan wraps BLE Socks on at all times Hospitalist service consultations much appreciated. 11/29: Continue current regime. Informed Consent: does not understand Reason for continued inpatient stay Substantial Risk for: med/psych decompensation Time Spent With Patient Time: Total time managing care of this patient today ____ minutes.
[2023-11-30 15:13] LABS: ~Lactic Acid-LAB USE ONLY 3.9 mmol/L (0.5-2.0)
[2023-11-30 15:40] VITALS: BP 125/74; PULSE 108; RESP 22; TEMP 36.4; O2SAT 96
--- NOTE | 2023-11-30 16:31 | PC.NURSE ---
Bilateral lower extremities red & warm to touch. Pt is tachycardic with a HR of 108. Tachypneic at a RR of 22. Pt is pale, palms clammy to the touch. Pt with altered mental status per her baseline. Lactic acid at 1228 was 3.0. Lactic acid at 1444 was 3.9. Last WBC 11/28. New order for CBC with Diff. Waiting for lab at this time. ID & Hospitalist are both aware of patients labwork, and their physical & mental status at this time. No new orders.
[2023-11-30 16:47] LABS: Reflex Lactate? 2 Y
--- NOTE | 2023-11-30 16:57 | PM.CNGS ---
History of Present Illness Consult details Consult date: 11/30/23 Narrative: 33-year-old female referred to me for skin biopsy of the right lower leg. She has had this chronic redness and cellulitic changes. She had evaluated by the ID service and a vasculitic process could not be ruled out so she was referred for biopsy. She had been admitted to the psych unit last 11/23/2023 because of brendon. She has known schizoaffective disorder. She was agitated extremely at that time She otherwise denies pain on the lower legs. She seems to have poor self-care. She was admitted to the hospital last October 29 because of sepsis. Review of Systems Constitutional: Constitutional: Denies chills and Denies fever(s) Cardiovascular: Cardiovascular: Denies chest pain Respiratory: Respiratory: Denies cough Gastrointestinal: Gastrointestinal: Denies abdominal pain Psychiatric: Psychiatric: Reports anxiety and Reports mood swings PMF Past Medical History Medical History (Updated 11/30/23 @ 23:09 by Sophia Riley MD) Venous stasis Chronic cellulitis Fever Fever of unknown origin Foot swelling Hidradenitis suppurativa Schizoaffective disorder, bipolar type Hypertension, essential Uncontrolled type 2 diabetes mellitus with hyperglycemia Leg edema Obesity, morbid Asthma Factor 5 Leiden mutation, heterozygous Seasonal asthma Family History Family History Father HTN (hypertension) Diabetes mellitus Mother Afib Maternal Grandfather No problems noted. Maternal Grandmother No problems noted. Paternal Grandmother Breast cancer Paternal Grandfather No problems noted. Sister No problems noted. Surgical History Surgical History History of ovarian cyst History of wisdom tooth extraction Social History Social History Household Members: Family and Other Household Members Other:: father [phone] Housing: House Do you presently have visiting nurse or other home services: Yes Unable to assess alcohol history related to: Unknown Alcohol intake: never Comment: 1:1 Patient Tobacco Use Status: Former Tobacco user Tobacco use type: Cigarette Years Smoked: 3 yrs Smoked in Last 30 Days: No e-Cigarette/Vaping Use: Never Used Patient Interested in Nicotine Replacement: No Patient Given Instructions on How to Stop Smoking: No Second Hand Smoke Exposure: No Use of substances other than those prescribed or required for medical reasons: No Currently Displaying Signs/Symptoms of Drug Intoxication Withdrawal: No Do you feel safe in your current relationship?: No Current Relationship Is there a partner from a previous relationship who is making you feel unsafe now?: No Are you made to feel afraid or neglected: No Advance Directives: No Advance Directives Information Provided: No Do you have thoughts of harming others: None Do you have a plan to hurt others: No Plan Recently lost weight without trying: No Eating poorly because of decreased appetite: No Nutrition Risks: No Nutritional Risk Patient : No : No Poor oral hygiene: No service: No Current occupational status: employed Sexual orientation: Straight/Heterosexual Cognitive needs: No Hearing needs: No Vision needs: Yes Meds Allergies Allergy/AdvReac Type Severity Reaction Status Date / Time kiwi [KIWI] Allergy Mild HIVES Verified 11/21/23 05:49 mold [MOLD EXTRACTS*] Allergy Mild HIVES Verified 11/21/23 05:49 Active Medications: Current Medications Acetaminophen (Acetaminophen 325 Mg Tablet) 650 mg PO Q6H PRN PRN Reason: Headache/Pain Mild Scale (1-3) Last Admin: 11/29/23 16:42 Dose: 650 mg Al Hydroxide/Mg Hydroxide (Magnesium Hydrox/Alum Hydrox 30 Ml Oral.Susp) 30 ml PO Q6H PRN PRN Reason: Heartburn/Nausea Last Admin: 11/29/23 22:00 Dose: 30 ml Apixaban (Apixaban 5 Mg Tablet) 5 mg PO BID [facility] Last Admin: 11/30/23 12:31 Dose: 5 mg Atenolol (Atenolol 25 Mg Tablet) 25 mg PO DAILY [facility]; Protocol Last Admin: 11/30/23 12:31 Dose: 25 mg Chlorpromazine HCl (Chlorpromazine Hcl 100 Mg Tablet) 100 mg PO BID PRN PRN Reason: brendon,psychosis Last Admin: 11/25/23 17:58 Dose: 100 mg Chlorpromazine HCl (Chlorpromazine Hcl 25 Mg Tablet) 25 mg PO BID@0900,1500 [facility] Last Admin: 11/30/23 16:06 Dose: Not Given Chlorpromazine HCl (Chlorpromazine Hcl 100 Mg Tablet) 100 mg PO BEDTIME [facility] Last Admin: 11/29/23 21:12 Dose: 100 mg Clindamycin HCl (Clindamycin Hcl 300 Mg Capsule) 300 mg PO Q6H [facility] Stop: 12/02/23 10:01 Last Admin: 11/30/23 12:31 Dose: 300 mg Divalproex Sodium (Divalproex Sodium Sprinkles 125 Mg ) 1,500 mg PO BID [facility] Last Admin: 11/30/23 12:31 Dose: 1,500 mg Docusate Sodium (Docusate Sodium 100 Mg Capsule) 100 mg PO BEDTIME [facility] Last Admin: 11/29/23 21:20 Dose: Not Given Doxycycline Monohydrate (Doxycycline Monohydrate 100 Mg Capsule) 100 mg PO Q12H [facility] Stop: 12/01/23 17:59 Last Admin: 11/30/23 04:49 Dose: 100 mg Furosemide (Furosemide 40 Mg Tablet) 40 mg PO DAILY [facility]; Protocol Last Admin: 11/30/23 12:32 Dose: 40 mg Hydrocortisone (Hydrocortisone 1 % Cream 28.35 Gm Tube) 1 appl TOPICAL BID [facility]; Protocol Last Admin: 11/29/23 21:35 Dose: Not Given Hydroxyzine HCl (Hydroxyzine Hcl 25 Mg Tablet) 25 mg PO Q6H PRN PRN Reason: Anxiety Last Admin: 11/26/23 22:25 Dose: 25 mg Lactic Acid (Ammonium Lactate 12 % Lotion 226 Gm Bottle) 1 appl TOPICAL BID [facility]; Protocol Last Admin: 11/29/23 21:20 Dose: 1 appl Lamotrigine (Lamotrigine 25 Mg Tablet) 25 mg PO BEDTIME [facility] Last Admin: 11/29/23 21:12 Dose: 25 mg Lorazepam (Lorazepam 1 Mg Tablet) 1 mg PO BEDTIME [facility] Last Admin: 11/29/23 21:11 Dose: 1 mg Magnesium Hydroxide (Milk Of Magnesia 30 Ml Oral.Susp) 30 ml PO DAILY PRN PRN Reason: Constipation Metformin HCl (Metformin Hcl Er 500 Mg Tab.Er.24h) 500 mg PO DAILY [facility] Last Admin: 11/30/23 12:32 Dose: 500 mg Multi-Ingred Cream/Lotion/Oil/Oint (Mineral Oil/Petrolatum,White 106 Gm Tube) 1 appl TOPICAL BID [facility] Last Admin: 11/29/23 21:23 Dose: 1 appl Multivitamins/Vitamin C (Multivitamin Tablet) 1 tab PO DAILY [facility] Last Admin: 11/30/23 12:32 Dose: 1 tab Nicotine (Nicotine 21 Mg Patch.Td24) 21 mg TRANSDERMA DAILY PRN PRN Reason: smoking cessation Nicotine Polacrilex (Nicotine Polacrilex 2 Mg Gum) 4 mg BUCCAL Q2H PRN PRN Reason: Nicotine Cravings Last Admin: 11/24/23 15:15 Dose: 4 mg Pt Own (Culturelle (Probiotics 1 Cap)) 1 cap PO DAILY [facility] Last Admin: 11/30/23 12:30 Dose: 1 cap Nystatin (Nystatin Cream 15 Gm Tube) 1 appl TOPICAL BID [facility]; Protocol Last Admin: 11/30/23 13:04 Dose: Not Given Nystatin (Nystatin Powder 15 Gm Bottle) 1 appl TOPICAL BID [facility]; Protocol Last Admin: 11/30/23 13:03 Dose: 1 appl Olanzapine (Olanzapine 5 Mg Tablet) 5 mg PO TID PRN PRN Reason: agitation Last Admin: 11/26/23 18:25 Dose: 5 mg Trazodone HCl (Trazodone Hcl 50 Mg Tablet) 50 mg PO BEDTIME MRX1 PRN PRN Reason: Insomnia Last Admin: 11/26/23 22:25 Dose: 50 mg Home Medications Medication Instructions Recorded Confirmed Last Taken Type olanzapine 10 mg disintegrating 5 mg BID 11/21/23 11/21/23 Unknown History tablet Physical Exam Vital Signs: Vital Signs: Last Vital Signs Temp 97.5 F 11/30/23 15:40 Pulse 108 H 11/30/23 15:40 Resp 22 H 11/30/23 15:40 BP 125/74 11/30/23 15:40 Pulse Ox 96 11/30/23 15:40 O2 Del Method Room Air 11/30/23 15:40 BMI result Body Mass Index 62.4 Const: Other: Morbidly obese, ambulating General: comfortable and no acute distress Resp: Effort & Inspection: normal respiratory effort Cardio: Rate: regular rate GI: Palpation (GI): Soft to palpation Extrem: Other: Diffuse redness of both lower extremities with edema of the dorsum of the feet. No open wounds Results Labs 11/30/23 17:19 11/29/23 09:08 Labs: Abnormal lab results 11/29/23 11/30/23 11/30/23 Range/Units 21:17 12:21 12:28 POC Glucose 161 H 145 H (60-115) mg/dL Lactic Acid 3.0 H* (0.5-2.0) mmol/L Lactic Acid F/U @ 2Hr (0.5-2.0) mmol/L 11/30/23 Range/Units 14:44 POC Glucose (60-115) mg/dL Lactic Acid (0.5-2.0) mmol/L Lactic Acid F/U @ 2Hr 3.9 H* (0.5-2.0) mmol/L Urine 11/21/23 Range/Units 19:35 Urine Color Dark Yellow Urine Appearance Clear Urine pH 5.5 (5.0-9.0) Ur Specific [place] >= 1.030 H (1.005-1.025) Urine Protein Trace (Neg-Trace) mg/dL Urine Glucose (UA) Negative (Negative) mg/dL All other labs normal. Assessment and Plan (1) Chronic cellulitis: Status: Acute She has chronic diffuse cellulitic changes of both lower legs. She has edema of the dorsum of the feet as well. I have been requested to do a skin biopsy in view of these changes to rule out vasculitis. I explained to the patient the technique of this procedure. This can be done under local anesthesia at bedside. We will use a punch biopsy. I will come back tomorrow to see if she will consent to this procedure. She currently has some flight of ideas so it is difficult to tell whether she will allow us to proceed. Procedures Date of Service Date of Service: 12/01/23
[2023-11-30 17:25] LABS: MANUAL DIFF FLAG NO
[2023-11-30 17:30] VITALS: BP 126/62; PULSE 101; RESP 18; TEMP 37; O2SAT 97
[2023-11-30 17:34] LABS: Basophils Absolute Auto 0.1 X10*3/uL (0.0-0.2); Basophils Percent Auto 0.7 % (0-2); Eosinophils Absolute Auto 0.1 X10*3/uL (0.0-0.4); Eosinophils Percent Auto 1.2 % (0-4); Hematocrit 33.1 % (37.0-47.0); Imm Gran Abs Auto 0.37 X10*3/uL (0.00-0.03); Imm Gran Pct Auto 4.1 % (0.0-0.4); Lymphocytes Absolute Auto 2.2 X10*3/uL (1.2-4.9); Lymphocytes Percent Auto 24.6 % (20-40); Mean Corpuscular HGB Conc 33.2 g/dl (31.0-35.0); Mean Corpuscular Hemoglobin 28.9 pg (27.0-33.0); Mean Corpuscular Volume 87.1 fL (80.0-98.0); Mean Platelet Volume 9.8 fL (9.4-12.3); Monocytes Absolute Auto 0.7 X10*3/uL (0.1-1.2); Monocytes Percent Auto 7.7 % (2-11); NRBC Pct Auto 0.2 /100WBC (0.0-0.2); Neutrophils Absolute Auto 5.6 x10*3/uL (2.0-8.3); Neutrophils Percent Auto 61.7 % (45-73); Platelet Count 204 X10*3/uL (160-400); Red Cell Distribution Width 14.4 % (11.0-16.0); White Blood Count 9.1 X10*3/uL (4.8-10.8)
--- NOTE | 2023-11-30 18:28 | PC.NURSE ---
At 1250 lab called with critical Lactic acid level of 3.0, at 1251 [place] [employer]STATE INSPECTOR notified. Zeinab's VS at 1215 were as follow T 97.5, BP 135/86, HR 118, SPO2 98, RR 18. Upon assessment bilateral lower extremities are edematous, red and warm to touch. Zeinab thought process appears disorganized, labile, lethargic, Lactic acid level re-drawn at 1516 [place] [employer]STATE INSPECTOR notified Lactic Acid level 3.9, VS retaken T97.5, BP 125/74, HR 108, SPO2 96, RR 22. Per REAL ESTATE INSPECTOR Hospitalist Consult put in.
[2023-11-30 19:30] VITALS: BP 130/75; PULSE 100; RESP 22; TEMP 36.9; O2SAT 100
[2023-11-30] MEDS: chlorproMAZINE HCl 100 MG TABLET PO (20:05)
[2023-11-30] MEDS: Docusate Sodium 100 MG CAPSULE PO (20:06)
[2023-11-30] MEDS: LORazepam 1 MG TABLET PO (20:06)
[2023-11-30] MEDS: lamoTRIgine 25 MG TABLET PO (20:06)
[2023-11-30] MEDS: Nystatin Cream 15 GM TUBE 1 APPL TOPICAL (21:39)
--- NOTE | 2023-11-30 23:06 | P.CNID_ITS ---
History of Present Illness Data of Consult Service Date: 11/30/23 Requesting physician: Syeda Gibson Primary Care Provider: Unknown Physician HPI Reason for consult: red legs She presents for psychiatric care. she is sitting in psychiatry [place] with legs hanging down. She has no fever or chills Review of Systems 2 Review of Systems: Yes all other systems are reviewed and are negative PMFSH Past Medical History Medical History (Updated 11/30/23 @ 23:09 by Sophia Riley MD) Venous stasis Chronic cellulitis Fever Fever of unknown origin Foot swelling Hidradenitis suppurativa Schizoaffective disorder, bipolar type Hypertension, essential Uncontrolled type 2 diabetes mellitus with hyperglycemia Leg edema Obesity, morbid Asthma Factor 5 Leiden mutation, heterozygous Seasonal asthma Family History Family History Father HTN (hypertension) Diabetes mellitus Mother Afib Maternal Grandfather No problems noted. Maternal Grandmother No problems noted. Paternal Grandmother Breast cancer Paternal Grandfather No problems noted. Sister No problems noted. Family history: reviewed and not pertinent Surgical History Surgical History History of ovarian cyst History of wisdom tooth extraction Social History Social History Household Members: Family and Other Household Members Other:: father [phone] Housing: House Do you presently have visiting nurse or other home services: Yes Unable to assess alcohol history related to: Unknown Alcohol intake: never Comment: 1:1 Patient Tobacco Use Status: Former Tobacco user Tobacco use type: Cigarette Years Smoked: 3 yrs Smoked in Last 30 Days: No e-Cigarette/Vaping Use: Never Used Patient Interested in Nicotine Replacement: No Patient Given Instructions on How to Stop Smoking: No Second Hand Smoke Exposure: No Use of substances other than those prescribed or required for medical reasons: No Currently Displaying Signs/Symptoms of Drug Intoxication Withdrawal: No Do you feel safe in your current relationship?: No Current Relationship Is there a partner from a previous relationship who is making you feel unsafe now?: No Are you made to feel afraid or neglected: No Advance Directives: No Advance Directives Information Provided: No Do you have thoughts of harming others: None Do you have a plan to hurt others: No Plan Recently lost weight without trying: No Eating poorly because of decreased appetite: No Nutrition Risks: No Nutritional Risk Patient : No : No Poor oral hygiene: No service: No Current occupational status: employed Sexual orientation: Straight/Heterosexual Cognitive needs: No Hearing needs: No Vision needs: Yes Meds Allergies Allergy/AdvReac Type Severity Reaction Status Date / Time kiwi [KIWI] Allergy Mild HIVES Verified 11/21/23 05:49 mold [MOLD EXTRACTS*] Allergy Mild HIVES Verified 11/21/23 05:49 Active Medications: Current Medications Acetaminophen (Acetaminophen 325 Mg Tablet) 650 mg PO Q6H PRN PRN Reason: Headache/Pain Mild Scale (1-3) Last Admin: 11/29/23 16:42 Dose: 650 mg Al Hydroxide/Mg Hydroxide (Magnesium Hydrox/Alum Hydrox 30 Ml Oral.Susp) 30 ml PO Q6H PRN PRN Reason: Heartburn/Nausea Last Admin: 11/29/23 22:00 Dose: 30 ml Apixaban (Apixaban 5 Mg Tablet) 5 mg PO BID [facility] Last Admin: 11/30/23 20:06 Dose: 5 mg Atenolol (Atenolol 25 Mg Tablet) 25 mg PO DAILY [facility]; Protocol Last Admin: 11/30/23 12:31 Dose: 25 mg Chlorpromazine HCl (Chlorpromazine Hcl 100 Mg Tablet) 100 mg PO BID PRN PRN Reason: brendon,psychosis Last Admin: 11/25/23 17:58 Dose: 100 mg Chlorpromazine HCl (Chlorpromazine Hcl 25 Mg Tablet) 25 mg PO BID@0900,1500 [facility] Last Admin: 11/30/23 16:06 Dose: Not Given Chlorpromazine HCl (Chlorpromazine Hcl 100 Mg Tablet) 100 mg PO BEDTIME [facility] Last Admin: 11/30/23 20:05 Dose: 100 mg Divalproex Sodium (Divalproex Sodium Sprinkles 125 Mg ) 1,500 mg PO BID [facility] Last Admin: 11/30/23 20:06 Dose: 1,500 mg Docusate Sodium (Docusate Sodium 100 Mg Capsule) 100 mg PO BEDTIME [facility] Last Admin: 11/30/23 20:06 Dose: 100 mg Doxycycline Monohydrate (Doxycycline Monohydrate 100 Mg Capsule) 100 mg PO Q12H [facility] Stop: 12/01/23 17:59 Last Admin: 11/30/23 19:06 Dose: 100 mg Furosemide (Furosemide 40 Mg Tablet) 40 mg PO DAILY [facility]; Protocol Last Admin: 11/30/23 12:32 Dose: 40 mg Hydrocortisone (Hydrocortisone 1 % Cream 28.35 Gm Tube) 1 appl TOPICAL BID [facility]; Protocol Last Admin: 11/30/23 20:15 Dose: Not Given Hydroxyzine HCl (Hydroxyzine Hcl 25 Mg Tablet) 25 mg PO Q6H PRN PRN Reason: Anxiety Last Admin: 11/26/23 22:25 Dose: 25 mg Lactic Acid (Ammonium Lactate 12 % Lotion 226 Gm Bottle) 1 appl TOPICAL BID [facility]; Protocol Last Admin: 11/30/23 20:08 Dose: Not Given Lamotrigine (Lamotrigine 25 Mg Tablet) 25 mg PO BEDTIME [facility] Last Admin: 11/30/23 20:06 Dose: 25 mg Lorazepam (Lorazepam 1 Mg Tablet) 1 mg PO BEDTIME [facility] Last Admin: 11/30/23 20:06 Dose: 1 mg Magnesium Hydroxide (Milk Of Magnesia 30 Ml Oral.Susp) 30 ml PO DAILY PRN PRN Reason: Constipation Metformin HCl (Metformin Hcl Er 500 Mg Tab.Er.24h) 500 mg PO DAILY [facility] Last Admin: 11/30/23 12:32 Dose: 500 mg Multi-Ingred Cream/Lotion/Oil/Oint (Mineral Oil/Petrolatum,White 106 Gm Tube) 1 appl TOPICAL BID [facility] Last Admin: 11/30/23 20:29 Dose: Not Given Multivitamins/Vitamin C (Multivitamin Tablet) 1 tab PO DAILY [facility] Last Admin: 11/30/23 12:32 Dose: 1 tab Nicotine (Nicotine 21 Mg Patch.Td24) 21 mg TRANSDERMA DAILY PRN PRN Reason: smoking cessation Nicotine Polacrilex (Nicotine Polacrilex 2 Mg Gum) 4 mg BUCCAL Q2H PRN PRN Reason: Nicotine Cravings Last Admin: 11/24/23 15:15 Dose: 4 mg Pt Own (Culturelle (Probiotics 1 Cap)) 1 cap PO DAILY [facility] Last Admin: 11/30/23 12:30 Dose: 1 cap Nystatin (Nystatin Cream 15 Gm Tube) 1 appl TOPICAL BID [facility]; Protocol Last Admin: 11/30/23 21:39 Dose: 1 appl Nystatin (Nystatin Powder 15 Gm Bottle) 1 appl TOPICAL BID [facility]; Protocol Last Admin: 11/30/23 21:40 Dose: 1 appl Olanzapine (Olanzapine 5 Mg Tablet) 5 mg PO TID PRN PRN Reason: agitation Last Admin: 11/26/23 18:25 Dose: 5 mg Trazodone HCl (Trazodone Hcl 50 Mg Tablet) 50 mg PO BEDTIME MRX1 PRN PRN Reason: Insomnia Last Admin: 11/26/23 22:25 Dose: 50 mg Home Medications Medication Instructions Recorded Confirmed Last Taken Type olanzapine 10 mg disintegrating 5 mg BID 11/21/23 11/21/23 Unknown History tablet Physical Exam 2 Vital Signs: Vital Signs: Last Vital Signs Temp 98.4 F 11/30/23 19:30 Pulse 100 11/30/23 19:30 Resp 22 H 11/30/23 19:30 BP 130/75 11/30/23 19:30 Pulse Ox 100 11/30/23 19:30 O2 Del Method Room Air 11/30/23 19:30 BMI result Body Mass Index 62.4 Const: General: cooperative HEENT: Head: Yes normal to inspection Face and sinus: Yes normal facial exam Mouth: Normal oral and palatal mucosa present Teeth and gingiva: d entition normal Eyes: General: appearance normal, both eyes and all related structures P upils: Equal, round and reactive pupils present Resp: Effort & Inspection: normal respiratory effort Cardio: Rate: regular rate Rhythm: regular rhythm GI: Palpation (GI): Soft to palpation and nontender : General: Yes no CVA tenderness Back/Spine/Pelvis: Back: no CVA tenderness Skin: Other: chronic rubor bilateral legs less red than last time I saw her Neuro: General: moves all extremities Cranial nerves: Yes Equal, round and reactive pupils present Extrem: General: Yes normal to inspection Psych: Appearance: grossly normal Results Labs 11/30/23 17:19 11/29/23 09:08 Labs: Short CBC 11/30/23 Range/Units 17:19 WBC 9.1 (4.8-10.8) X10*3/uL Hgb 11.0 L (12.0-16.0) g/dl Hct 33.1 L (37.0-47.0) % Plt Count 204 (160-400) X10*3/uL Assessment and Plan (1) Venous stasis: Status: Acute Cellulitis mimic Po Doxycycline for 10 days and topical steroids cover possible cellulitis superinfection Sepsis concerns with tachycardia and tachypnea. Treat venous stasis with elevation Follow with hospitalists as I do not assess this patients disposition ( am seeing on psychiatry. Check CBC unremarkable.)
[2023-12-01 06:00] VITALS: BP 128/73; PULSE 107; RESP 18; TEMP 36.7; O2SAT 97
[2023-12-01] MEDS: Doxycycline Monohydrate 100 MG CAPSULE PO ×2 (06:16→17:17)
[2023-12-01] MEDS: Divalproex Sodium Sprinkles 125 MG CAP.DR.SPR 1500 MG PO ×2 (09:01→22:40)
[2023-12-01] MEDS: Multivitamin TABLET 1 TAB PO (09:02)
[2023-12-01] MEDS: atenoloL 25 MG TABLET PO (09:02)
[2023-12-01] MEDS: Apixaban 5 MG TABLET PO ×2 (09:02→22:41)
[2023-12-01] MEDS: Acetaminophen 325 MG TABLET 650 MG PO (11:04)
[2023-12-01] MEDS: Mineral Oil/Petrolatum,White 106 GM Tube 1 APPL TOPICAL ×2 (11:46→22:00)
[2023-12-01] MEDS: Nystatin Cream 15 GM TUBE 1 APPL TOPICAL ×2 (11:46→22:00)
[2023-12-01] MEDS: Nystatin Powder 15 GM BOTTLE 1 APPL TOPICAL (11:46)
[2023-12-01] MEDS: Ammonium Lactate 12 % Lotion 226 GM BOTTLE 1 APPL TOPICAL ×2 (11:46→22:00)
[2023-12-01] MEDS: Hydrocortisone 1 % Cream 28.35 GM TUBE 1 APPL TOPICAL ×2 (11:47→22:00)
--- NOTE | 2023-12-01 14:06 | HO.PSYCHPN ---
Subjective Subjective Date of Service: 12/01/23 Reason For Visit: manic aggressive Subjective Notes: Conditional Voluntary Healthcare Proxy: Yes Guardianship: No Medical Problems Affecting Mental Status: No Interim History: Calmer today with ongoing anxiety, lability. Met with pt twice-initially she has urgent requests that are not sensible-call police, call crisis. 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 She asks for reassurance, today mentioning her concern for her parents health, how it will effect her and her life moving forward, will I be on the back chase of the [facility] because no one in my family can help me? Tearful at times-expresses gratitude to nursing team- everyone stays by me . Seen by hospitalist team, infectious disease team, general surgery who are monitoring cellulitis. Pt now changed to doxycycline and topical steroids for cellulitis. She refused punch biopsy to assess for vasculitis. She denies pain, except when she believes she is experiencing labor pain (not currently ) which is episodic. Medication Compliance: Intermittent (refused some meds today) Side effects from medications: No Attending Groups: No Review of Systems Acute medical concerns: Yes cellulitis Medical Review of Systems: unchanged Review of Systems Review of Systems cellulitis Mental Status Exam Mental Status Exam Patient Appearance: Fatigued Patient Orientation: Person and Place Level of Consciousness: Alert Patient Behavior: Talkative, Cooperative, Wandering, Anxious, Fatigued, Distractible, Confused and Good Eye Contact Mood Description: Labile Affect Description: Labile Patient Cognition Impaired: Yes Ability to Follow Directions: Fair Speech Pattern: Clear and Spontaneous Speech Memory Description: Remote Impaired Hallucinations: None Delusions: Present Thought Content: positive for [place], positive for Circumstantial, positive for Perseveration, positive for Loose Associations and positive for Disorganized Depressive Symptoms: Crying Spells Judgement: Poor Diagnostics Vital Signs (24Hr): Vital Signs - 24 hr 11/30/23 15:40 11/30/23 17:30 11/30/23 19:30 Temperature 97.5 F 98.6 F 98.4 F Pulse Rate 108 H 101 H 100 Respiratory Rate 22 H 18 22 H Blood Pressure 125/74 126/62 130/75 Pulse Oximetry 96 97 100 Oxygen Delivery Method Room Air Room Air Room Air 12/01/23 06:00 Temperature 98.1 F Pulse Rate 107 H Respiratory Rate 18 Blood Pressure 128/73 Pulse Oximetry 97 Oxygen Delivery Method Room Air BMI result Body Mass Index 62.4 Labs 11/30/23 17:19 11/29/23 09:08 Labs: Laboratory Results - last 48 hr 11/29/23 11/30/23 11/30/23 21:17 12:21 12:28 WBC RBC Hgb Hct MCV MCH MCHC RDW Plt Count MPV Immature Gran % (Auto) Neut % (Auto) Lymph % (Auto) [place] % (Auto) Eos % (Auto) Baso % (Auto) Lymph # (Auto) [place] # (Auto) Eos # (Auto) Baso # (Auto) Abs Immat Gran (auto) Absolute Neuts (auto) Absolute Nucleated RBC Nucleated RBC % (auto) POC Glucose 161 H 145 H Lactic Acid 3.0 H* Lactic Acid F/U @ 2Hr 11/30/23 11/30/23 14:44 17:19 WBC 9.1 RBC 3.80 L Hgb 11.0 L Hct 33.1 L MCV 87.1 MCH 28.9 MCHC 33.2 RDW 14.4 Plt Count 204 MPV 9.8 Immature Gran % (Auto) 4.1 H Neut % (Auto) 61.7 Lymph % (Auto) 24.6 [place] % (Auto) 7.7 Eos % (Auto) 1.2 Baso % (Auto) 0.7 Lymph # (Auto) 2.2 [place] # (Auto) 0.7 Eos # (Auto) 0.1 Baso # (Auto) 0.1 Abs Immat Gran (auto) 0.37 H Absolute Neuts (auto) 5.6 Absolute Nucleated RBC 0.020 H Nucleated RBC % (auto) 0.2 POC Glucose Lactic Acid Lactic Acid F/U @ 2Hr 3.9 H* Medications Medications Current Medications Acetaminophen (Acetaminophen 325 Mg Tablet) 650 mg PO Q6H PRN PRN Reason: Headache/Pain Mild Scale (1-3) Last Admin: 12/01/23 11:04 Dose: 325 mg Al Hydroxide/Mg Hydroxide (Magnesium Hydrox/Alum Hydrox 30 Ml Oral.Susp) 30 ml PO Q6H PRN PRN Reason: Heartburn/Nausea Last Admin: 11/29/23 22:00 Dose: 30 ml Apixaban (Apixaban 5 Mg Tablet) 5 mg PO BID [facility] Last Admin: 12/01/23 09:02 Dose: 5 mg Atenolol (Atenolol 25 Mg Tablet) 25 mg PO DAILY [facility]; Protocol Last Admin: 12/01/23 09:02 Dose: 25 mg Chlorpromazine HCl (Chlorpromazine Hcl 100 Mg Tablet) 100 mg PO BID PRN PRN Reason: brendon,psychosis Last Admin: 11/25/23 17:58 Dose: 100 mg Chlorpromazine HCl (Chlorpromazine Hcl 25 Mg Tablet) 25 mg PO BID@0900,1500 [facility] Last Admin: 12/01/23 09:21 Dose: Not Given Chlorpromazine HCl (Chlorpromazine Hcl 100 Mg Tablet) 100 mg PO BEDTIME [facility] Last Admin: 11/30/23 20:05 Dose: 100 mg Divalproex Sodium (Divalproex Sodium Sprinkles 125 Mg Cap.) 1,500 mg PO BID [facility] Last Admin: 12/01/23 09:01 Dose: 1,500 mg Docusate Sodium (Docusate Sodium 100 Mg Capsule) 100 mg PO BEDTIME [facility] Last Admin: 11/30/23 20:06 Dose: 100 mg Doxycycline Monohydrate (Doxycycline Monohydrate 100 Mg Capsule) 100 mg PO Q12H [facility] Stop: 12/01/23 17:59 Last Admin: 12/01/23 06:16 Dose: 100 mg Furosemide (Furosemide 40 Mg Tablet) 40 mg PO DAILY [facility]; Protocol Last Admin: 12/01/23 09:21 Dose: Not Given Hydrocortisone (Hydrocortisone 1 % Cream 28.35 Gm Tube) 1 appl TOPICAL BID [facility]; Protocol Last Admin: 12/01/23 11:47 Dose: 1 appl Hydroxyzine HCl (Hydroxyzine Hcl 25 Mg Tablet) 25 mg PO Q6H PRN PRN Reason: Anxiety Last Admin: 11/26/23 22:25 Dose: 25 mg Lactic Acid (Ammonium Lactate 12 % Lotion 226 Gm Bottle) 1 appl TOPICAL BID [facility]; Protocol Last Admin: 12/01/23 11:46 Dose: 1 appl Lamotrigine (Lamotrigine 25 Mg Tablet) 25 mg PO BEDTIME [facility] Last Admin: 11/30/23 20:06 Dose: 25 mg Lorazepam (Lorazepam 1 Mg Tablet) 1 mg PO BEDTIME [facility] Last Admin: 11/30/23 20:06 Dose: 1 mg Magnesium Hydroxide (Milk Of Magnesia 30 Ml Oral.Susp) 30 ml PO DAILY PRN PRN Reason: Constipation Metformin HCl (Metformin Hcl Er 500 Mg Tab.Er.24h) 500 mg PO DAILY [facility] Last Admin: 12/01/23 09:09 Dose: Not Given Multi-Ingred Cream/Lotion/Oil/Oint (Mineral Oil/Petrolatum,White 106 Gm Tube) 1 appl TOPICAL BID [facility] Last Admin: 12/01/23 11:46 Dose: 1 appl Multivitamins/Vitamin C (Multivitamin Tablet) 1 tab PO DAILY [facility] Last Admin: 12/01/23 09:02 Dose: 1 tab Nicotine (Nicotine 21 Mg Patch.Td24) 21 mg TRANSDERMA DAILY PRN PRN Reason: smoking cessation Nicotine Polacrilex (Nicotine Polacrilex 2 Mg Gum) 4 mg BUCCAL Q2H PRN PRN Reason: Nicotine Cravings Last Admin: 11/24/23 15:15 Dose: 4 mg Pt Own (Culturelle (Probiotics 1 Cap)) 1 cap PO DAILY [facility] Last Admin: 12/01/23 09:21 Dose: Not Given Nystatin (Nystatin Cream 15 Gm Tube) 1 appl TOPICAL BID [facility]; Protocol Last Admin: 12/01/23 11:46 Dose: 1 appl Nystatin (Nystatin Powder 15 Gm Bottle) 1 appl TOPICAL BID [facility]; Protocol Last Admin: 12/01/23 11:46 Dose: 1 appl Olanzapine (Olanzapine 5 Mg Tablet) 5 mg PO TID PRN PRN Reason: agitation Last Admin: 11/26/23 18:25 Dose: 5 mg Trazodone HCl (Trazodone Hcl 50 Mg Tablet) 50 mg PO BEDTIME MRX1 PRN PRN Reason: Insomnia Last Admin: 11/26/23 22:25 Dose: 50 mg Allergies Allergies Allergy/AdvReac Type Severity Reaction Status Date / Time kiwi [KIWI] Allergy Mild HIVES Verified 11/21/23 05:49 mold [MOLD EXTRACTS*] Allergy Mild HIVES Verified 11/21/23 05:49 Assessment & Plan Assessment & Plan (1) Venous stasis: Status: Acute Code(s): I87.8 - Other specified disorders of veins Assessment and Plan: Cellulitis mimic Po Doxycycline for 10 days and topical steroids cover possible cellulitis superinfection Sepsis concerns with tachycardia and tachypnea. Treat venous stasis with elevation Follow with hospitalists as I do not assess this patients disposition ( am seeing on psychiatry. Check CBC unremarkable.) (2) Chronic cellulitis: Status: Acute Code(s): L03.90 - Cellulitis, unspecified (3) Schizoaffective disorder, bipolar type: Status: Acute Code(s): F25.0 - Schizoaffective disorder, bipolar type Plan 12/01/23: Continue current tx and plan Informed Consent: does not understand Reason for continued inpatient stay Substantial Risk for: rapid decompensation and med/psych decompensation Time Spent With Patient Time: Total time managing care of this patient today ____ minutes.
--- NOTE | 2023-12-01 15:15 | PM.EVENT ---
Event Note Date of Service: 12/01/23 Event Note: Patient seen for followup for bilateral lower and right lower leg cellulitis. Yesterday patient's lactic acid was drawn and was elevated 3.0, likely secondary to metformin use. ID and General surgery were consulted. Today, erythema and edema of bilateral lower legs appears similar to previous. See picture below. No significant warmth. Clinically patient does not appear septic. Continues to experience tachycardia which has been ongoing since admission. No tachypnea, and remains afebrile with no leukocytosis. Will continue with azathioprine ammonium lactate lotion, hydrocortisone cream b.i.d., and leg elevation. ID suggested switching from clindamycin back to doxycycline for a total of 10 days with topical steroids over possible cellulitis infection. General surgery has been consulted for possible skin biopsy. Patient has not yet consented to biopsy, a general surgery plans on meeting patient again today or for consent. Will continue to follow. Time Spent With Patient Time: Total time managing care of this patient today ____ minutes.
--- NOTE | 2023-12-01 15:34 | PM.EVENT ---
Event Note Date of Service: 12/01/23 Event Note: I have come up to the unit multiple times since yesterday to do the skin biopsy She has not allowed me to proceed The unit nurse had explained to her and tried to convince her to go ahead with a skin biopsy She insists that she wants to pass on it at this time Time Spent With Patient Time: Total time managing care of this patient today ____ minutes.
[2023-12-01 18:00] VITALS: BP 119/73; PULSE 95; RESP 18; TEMP 36.9; O2SAT 97
[2023-12-01] MEDS: Docusate Sodium 100 MG CAPSULE PO (22:41)
[2023-12-01] MEDS: lamoTRIgine 25 MG TABLET PO (22:41)
[2023-12-01] MEDS: chlorproMAZINE HCl 100 MG TABLET PO (22:41)
[2023-12-01] MEDS: LORazepam 1 MG TABLET PO (22:41)
[2023-12-02 06:00] VITALS: BP 146/87; PULSE 108; RESP 20
[2023-12-02] MEDS: Doxycycline Monohydrate 100 MG CAPSULE PO ×2 (06:20→17:59)
[2023-12-02 08:57] LABS: Glucose, Whole Blood 130 mg/dL (60-115)
[2023-12-02] MEDS: Furosemide 40 MG TABLET PO (10:04)
[2023-12-02] MEDS: Apixaban 5 MG TABLET PO ×2 (10:05→21:15)
[2023-12-02] MEDS: Divalproex Sodium Sprinkles 125 MG CAP.DR.SPR 1500 MG PO ×2 (10:05→21:10)
[2023-12-02] MEDS: atenoloL 25 MG TABLET PO (10:05)
[2023-12-02] MEDS: Multivitamin TABLET 1 TAB PO (10:05)
[2023-12-02] MEDS: metFORMIN HCl ER 500 MG TAB.ER.24H PO (10:05)
[2023-12-02] MEDS: chlorproMAZINE HCl 25 MG TABLET PO ×2 (10:05→21:15)
[2023-12-02] MEDS: Hydrocortisone 1 % Cream 28.35 GM TUBE 1 APPL TOPICAL ×2 (10:19→21:15)
[2023-12-02] MEDS: Mineral Oil/Petrolatum,White 106 GM Tube 1 APPL TOPICAL ×2 (10:19→21:15)
[2023-12-02] MEDS: Ammonium Lactate 12 % Lotion 226 GM BOTTLE 1 APPL TOPICAL ×2 (10:19→21:15)
[2023-12-02] MEDS: Nystatin Cream 15 GM TUBE 1 APPL TOPICAL ×2 (10:19→21:15)
--- NOTE | 2023-12-02 11:18 | PC.NURSE ---
Addendum entered by Veronica Chaves RN 12/02/23 14:28: New custom PABLO stockings delivered today. Staff to apply to bilateral extremities in the morning and remove at HS. Original Note: Cap refill to Left foot 4 seconds. Cap refill to Right foot 6-7 seconds. Bilateral lower extremities continue to be red, edematous, and warm to touch. Pt continues to report discomfort to bilateral lower extremities. MIGEL wraps & creams applied per MD order. MD aware of slowed Cap Refill.
[2023-12-02] MEDS: Lidocaine 4 % Patch ADH..PATCH 1 PATCH TRANSDERMA (14:13)
--- NOTE | 2023-12-02 16:19 | HO.PSYCHPN ---
Subjective Subjective Date of Service: 12/02/23 Reason For Visit: manic aggressive Subjective Notes: Conditional Voluntary Healthcare Proxy: Yes (active) Guardianship: No Medical Problems Affecting Mental Status: No Interim History: Zeinab is less irritable today, with less extreme lability, but persists with disorganization and delusional sx. 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 Nursing and hospitalist team continue with close monitoring. Pt has had minimal improvement to BLE erythema with dual antibiotics. Team is questioning venous stasis. Pt has refused a punch biopsy several times to rule out vasculitis. Chlorpromazine dose remains consistent. She is taking hs dose and it is helpful for sleep and is refusing some of the daytime dosing with hold on dosing if sedate. Overall mental status sx are improving. Medication Compliance: Intermittent Side effects from medications: No Attending Groups: No Review of Systems Acute medical concerns: Yes as noted Medical Review of Systems: unchanged Review of Systems Review of Systems BLE Cellulitis vs Venous Stasis,Vasculitis Mental Status Exam Mental Status Exam Patient Appearance: Fatigued and Disheveled Patient Orientation: Person, Place and Situation Level of Consciousness: Alert Patient Behavior: Talkative, Cooperative, Suspicious, Wandering, Anxious, Resistive to Care (at times), Distractible, Good Eye Contact and Crying Mood Description: Labile Affect Description: Labile Patient Cognition Impaired: Yes Ability to Follow Directions: Fair Speech Pattern: Spontaneous Speech Memory Description: Remote Impaired Hallucinations: None Delusions: Paranoid Ideation, Grandiose and Present Perceptual Disturbances: Depersonalization and Derealization Thought Process: Illogical, Distracted and Rumination Thought Content: positive for [place], positive for Circumstantial, positive for Perseveration, positive for Loose Associations and positive for Tangential Depressive Symptoms: Crying Spells, Low Self Esteem and Difficulty Concentrating Judgement: Poor Diagnostics Vital Signs (24Hr): Vital Signs - 24 hr 12/01/23 18:00 12/02/23 06:00 Temperature 98.5 F Pulse Rate 95 108 H Respiratory Rate 18 20 Blood Pressure 119/73 146/87 H Pulse Oximetry 97 Oxygen Delivery Method Room Air BMI result Body Mass Index 62.4 Labs 11/30/23 17:19 11/29/23 09:08 Labs: Laboratory Results - last 48 hr 11/30/23 12/02/23 17:19 08:54 WBC 9.1 RBC 3.80 L Hgb 11.0 L Hct 33.1 L MCV 87.1 MCH 28.9 MCHC 33.2 RDW 14.4 Plt Count 204 MPV 9.8 Immature Gran % (Auto) 4.1 H Neut % (Auto) 61.7 Lymph % (Auto) 24.6 [place] % (Auto) 7.7 Eos % (Auto) 1.2 Baso % (Auto) 0.7 Lymph # (Auto) 2.2 [place] # (Auto) 0.7 Eos # (Auto) 0.1 Baso # (Auto) 0.1 Abs Immat Gran (auto) 0.37 H Absolute Neuts (auto) 5.6 Absolute Nucleated RBC 0.020 H Nucleated RBC % (auto) 0.2 POC Glucose 130 H Medications Medications Current Medications Acetaminophen (Acetaminophen 325 Mg Tablet) 650 mg PO Q6H PRN PRN Reason: Headache/Pain Mild Scale (1-3) Last Admin: 12/01/23 11:04 Dose: 325 mg Al Hydroxide/Mg Hydroxide (Magnesium Hydrox/Alum Hydrox 30 Ml Oral.Susp) 30 ml PO Q6H PRN PRN Reason: Heartburn/Nausea Last Admin: 11/29/23 22:00 Dose: 30 ml Apixaban (Apixaban 5 Mg Tablet) 5 mg PO BID [facility] Last Admin: 12/02/23 10:05 Dose: 5 mg Atenolol (Atenolol 25 Mg Tablet) 25 mg PO DAILY [facility]; Protocol Last Admin: 12/02/23 10:05 Dose: 25 mg Chlorpromazine HCl (Chlorpromazine Hcl 100 Mg Tablet) 100 mg PO BID PRN PRN Reason: brendon,psychosis Last Admin: 11/25/23 17:58 Dose: 100 mg Chlorpromazine HCl (Chlorpromazine Hcl 25 Mg Tablet) 25 mg PO BID@0900,1500 [facility] Last Admin: 12/02/23 14:13 Dose: Not Given Chlorpromazine HCl (Chlorpromazine Hcl 100 Mg Tablet) 100 mg PO BEDTIME [facility] Last Admin: 12/01/23 22:41 Dose: 100 mg Divalproex Sodium (Divalproex Sodium Sprinkles 125 Mg ) 1,500 mg PO BID [facility] Last Admin: 12/02/23 10:05 Dose: 1,500 mg Docusate Sodium (Docusate Sodium 100 Mg Capsule) 100 mg PO BEDTIME [facility] Last Admin: 12/01/23 22:41 Dose: 100 mg Doxycycline Monohydrate (Doxycycline Monohydrate 100 Mg Capsule) 100 mg PO Q12H [facility] Stop: 12/04/23 17:59 Last Admin: 12/02/23 06:20 Dose: 100 mg Furosemide (Furosemide 40 Mg Tablet) 40 mg PO DAILY [facility]; Protocol Last Admin: 12/02/23 10:04 Dose: 40 mg Hydrocortisone (Hydrocortisone 1 % Cream 28.35 Gm Tube) 1 appl TOPICAL BID [facility]; Protocol Last Admin: 12/02/23 10:19 Dose: 1 appl Hydroxyzine HCl (Hydroxyzine Hcl 25 Mg Tablet) 25 mg PO Q6H PRN PRN Reason: Anxiety Last Admin: 11/26/23 22:25 Dose: 25 mg Lactic Acid (Ammonium Lactate 12 % Lotion 226 Gm Bottle) 1 appl TOPICAL BID [facility]; Protocol Last Admin: 12/02/23 10:19 Dose: 1 appl Lamotrigine (Lamotrigine 25 Mg Tablet) 25 mg PO BEDTIME [facility] Last Admin: 12/01/23 22:41 Dose: 25 mg Lidocaine (Lidocaine 4 % Patch Adh..Patch) 1 patch TRANSDERMA DAILY [facility]; Protocol Last Admin: 12/02/23 14:13 Dose: 1 patch Lorazepam (Lorazepam 1 Mg Tablet) 1 mg PO BEDTIME [facility] Last Admin: 12/01/23 22:41 Dose: 1 mg Magnesium Hydroxide (Milk Of Magnesia 30 Ml Oral.Susp) 30 ml PO DAILY PRN PRN Reason: Constipation Metformin HCl (Metformin Hcl Er 500 Mg Tab.Er.24h) 500 mg PO DAILY [facility] Last Admin: 12/02/23 10:05 Dose: 500 mg Multi-Ingred Cream/Lotion/Oil/Oint (Mineral Oil/Petrolatum,White 106 Gm Tube) 1 appl TOPICAL BID [facility] Last Admin: 12/02/23 10:19 Dose: 1 appl Multivitamins/Vitamin C (Multivitamin Tablet) 1 tab PO DAILY [facility] Last Admin: 12/02/23 10:05 Dose: 1 tab Nicotine (Nicotine 21 Mg Patch.Td24) 21 mg TRANSDERMA DAILY PRN PRN Reason: smoking cessation Nicotine Polacrilex (Nicotine Polacrilex 2 Mg Gum) 4 mg BUCCAL Q2H PRN PRN Reason: Nicotine Cravings Last Admin: 11/24/23 15:15 Dose: 4 mg Pt Own (Culturelle (Probiotics 1 Cap)) 1 cap PO DAILY [facility] Last Admin: 12/02/23 10:08 Dose: 1 cap Nystatin (Nystatin Cream 15 Gm Tube) 1 appl TOPICAL BID [facility]; Protocol Last Admin: 12/02/23 10:19 Dose: 1 appl Nystatin (Nystatin Powder 15 Gm Bottle) 1 appl TOPICAL BID [facility]; Protocol Last Admin: 12/02/23 10:20 Dose: Not Given Olanzapine (Olanzapine 5 Mg Tablet) 5 mg PO TID PRN PRN Reason: agitation Last Admin: 11/26/23 18:25 Dose: 5 mg Trazodone HCl (Trazodone Hcl 50 Mg Tablet) 50 mg PO BEDTIME MRX1 PRN PRN Reason: Insomnia Last Admin: 11/26/23 22:25 Dose: 50 mg Allergies Allergies Allergy/AdvReac Type Severity Reaction Status Date / Time kiwi [KIWI] Allergy Mild HIVES Verified 11/21/23 05:49 mold [MOLD EXTRACTS*] Allergy Mild HIVES Verified 11/21/23 05:49 Assessment & Plan Assessment & Plan (1) Venous stasis: Status: Acute Code(s): I87.8 - Other specified disorders of veins Assessment and Plan: Cellulitis mimic Po Doxycycline for 10 days and topical steroids cover possible cellulitis superinfection Sepsis concerns with tachycardia and tachypnea. Treat venous stasis with elevation Follow with hospitalists as I do not assess this patients disposition ( am seeing on psychiatry. Check CBC unremarkable.) (2) Chronic cellulitis: Status: Acute Code(s): L03.90 - Cellulitis, unspecified (3) Schizoaffective disorder, bipolar type: Status: Acute Code(s): F25.0 - Schizoaffective disorder, bipolar type Plan 12/01/23: Continue current tx and plan 12/02/23: Continue current plan and tx Change Chlorpromazine daytime doses to prn. Informed Consent: does not understand Reason for continued inpatient stay Substantial Risk for: med/psych decompensation Time Spent With Patient Time: Total time managing care of this patient today ____ minutes.
[2023-12-02 18:00] VITALS: BP 142/88; PULSE 106; RESP 18; TEMP 36.6; O2SAT 97
[2023-12-02] MEDS: chlorproMAZINE HCl 100 MG TABLET PO (21:15)
[2023-12-02] MEDS: lamoTRIgine 25 MG TABLET PO (21:15)
[2023-12-02] MEDS: Docusate Sodium 100 MG CAPSULE PO (21:15)
[2023-12-02] MEDS: LORazepam 1 MG TABLET PO (21:16)
[2023-12-02 22:23] LABS: Glucose, Whole Blood 186 mg/dL (60-115)
[2023-12-03] MEDS: traZODone HCL 50 MG TABLET PO (01:19)
[2023-12-03] MEDS: Doxycycline Monohydrate 100 MG CAPSULE PO ×2 (06:05→17:25)
[2023-12-03 08:00] VITALS: BP 142/79; PULSE 101; RESP 16; TEMP 37; O2SAT 94
[2023-12-03 08:33] LABS: Glucose, Whole Blood 148 mg/dL (60-115)
[2023-12-03] MEDS: atenoloL 25 MG TABLET PO (09:03)
[2023-12-03] MEDS: Furosemide 40 MG TABLET PO (09:03)
[2023-12-03] MEDS: metFORMIN HCl ER 500 MG TAB.ER.24H PO (09:03)
[2023-12-03] MEDS: Apixaban 5 MG TABLET PO ×2 (09:03→20:42)
[2023-12-03 10:02] LABS: Valproate 93.2 mcg/mL (50.0-100.0)
--- NOTE | 2023-12-03 11:51 | HO.PSYCHPN ---
Subjective Subjective Date of Service: 12/03/23 Reason For Visit: manic aggressive Subjective Notes: Conditional Voluntary Healthcare Proxy: No Guardianship: No Medication Compliance: Yes Side effects from medications: No Attending Groups: No Review of Systems Acute medical concerns: Yes bilateral leg edema with venous stasis see helpful consult from today- pt has seen ID and surgery already- non compliant with compression stockings,being willing to keep legs raised and wear something on feet for protection Medical Review of Systems: unchanged Review of Systems: agree she does not look unwell, not febrile- Mental Status Exam Mental Status Exam Narrative: reactive toan with mother present, more cooperative though still non copmliant about raised legs with sister present Patient Appearance: Appropriate Patient Orientation: Person, Place, Time and Situation Level of Consciousness: Awake Patient Behavior: Appropriate, Talkative, Hypersexual (says she is single and if she goes home without dad being there she will go out!) and Resistive to Care Mood Description: Expansive Affect Description: Labile and Apprehensive Ability to Follow Directions: Poor Speech Pattern: Clear Delusions: Grandiose (threatened to call president on nurse yesterday) Thought Content: positive for Tangential Depressive Symptoms: Increased Anxiety and Difficulty Concentrating Judgement: Poor Diagnostics Vital Signs (24Hr): Vital Signs - 24 hr 12/02/23 18:00 Temperature 98 F Pulse Rate 106 H Respiratory Rate 18 Blood Pressure 142/88 H Pulse Oximetry 97 Oxygen Delivery Method Room Air BMI result Body Mass Index 62.4 Labs 12/03/23 12:01 12/03/23 12:01 Labs: Laboratory Results - last 48 hr 12/02/23 12/02/23 12/03/23 08:54 22:19 08:11 Hold Purple Top POC Glucose 130 H 186 H 148 H Valproic Acid 12/03/23 09:33 Hold Purple Top SEE NOTE POC Glucose Valproic Acid 93.2 Medications Medications Current Medications Acetaminophen (Acetaminophen 325 Mg Tablet) 650 mg PO Q6H PRN PRN Reason: Headache/Pain Mild Scale (1-3) Last Admin: 12/01/23 11:04 Dose: 325 mg Al Hydroxide/Mg Hydroxide (Magnesium Hydrox/Alum Hydrox 30 Ml Oral.Susp) 30 ml PO Q6H PRN PRN Reason: Heartburn/Nausea Last Admin: 11/29/23 22:00 Dose: 30 ml Apixaban (Apixaban 5 Mg Tablet) 5 mg PO BID [facility] Last Admin: 12/03/23 09:03 Dose: 5 mg Atenolol (Atenolol 25 Mg Tablet) 25 mg PO DAILY [facility]; Protocol Last Admin: 12/03/23 09:03 Dose: 25 mg Chlorpromazine HCl (Chlorpromazine Hcl 100 Mg Tablet) 100 mg PO BID PRN PRN Reason: brendon,psychosis Last Admin: 11/25/23 17:58 Dose: 100 mg Chlorpromazine HCl (Chlorpromazine Hcl 100 Mg Tablet) 100 mg PO BEDTIME [facility] Last Admin: 12/02/23 21:15 Dose: 100 mg Chlorpromazine HCl (Chlorpromazine Hcl 25 Mg Tablet) 25 mg PO BID@0900,1500 PRN PRN Reason: agitation Last Admin: 12/02/23 21:15 Dose: 25 mg Divalproex Sodium (Divalproex Sodium Sprinkles 125 Mg Cap.) 1,500 mg PO BID [facility] Last Admin: 12/02/23 21:10 Dose: 1,500 mg Docusate Sodium (Docusate Sodium 100 Mg Capsule) 100 mg PO BEDTIME [facility] Last Admin: 12/02/23 21:15 Dose: 100 mg Doxycycline Monohydrate (Doxycycline Monohydrate 100 Mg Capsule) 100 mg PO Q12H [facility] Stop: 12/04/23 17:59 Last Admin: 12/03/23 06:05 Dose: 100 mg Furosemide (Furosemide 40 Mg Tablet) 40 mg PO DAILY [facility]; Protocol Last Admin: 12/03/23 09:03 Dose: 40 mg Hydrocortisone (Hydrocortisone 1 % Cream 28.35 Gm Tube) 1 appl TOPICAL BID [facility]; Protocol Last Admin: 12/02/23 21:15 Dose: 1 appl Hydroxyzine HCl (Hydroxyzine Hcl 25 Mg Tablet) 25 mg PO Q6H PRN PRN Reason: Anxiety Last Admin: 11/26/23 22:25 Dose: 25 mg Lactic Acid (Ammonium Lactate 12 % Lotion 226 Gm Bottle) 1 appl TOPICAL BID [facility]; Protocol Last Admin: 12/02/23 21:15 Dose: 1 appl Lamotrigine (Lamotrigine 25 Mg Tablet) 25 mg PO BEDTIME [facility] Last Admin: 12/02/23 21:15 Dose: 25 mg Lidocaine (Lidocaine 4 % Patch Adh..Patch) 1 patch TRANSDERMA DAILY [facility]; Protocol Last Admin: 12/02/23 14:13 Dose: 1 patch Lorazepam (Lorazepam 1 Mg Tablet) 1 mg PO BEDTIME [facility] Last Admin: 12/02/23 21:16 Dose: 1 mg Magnesium Hydroxide (Milk Of Magnesia 30 Ml Oral.Susp) 30 ml PO DAILY PRN PRN Reason: Constipation Metformin HCl (Metformin Hcl Er 500 Mg Tab.Er.24h) 500 mg PO DAILY [facility] Last Admin: 12/03/23 09:03 Dose: 500 mg Multi-Ingred Cream/Lotion/Oil/Oint (Mineral Oil/Petrolatum,White 106 Gm Tube) 1 appl TOPICAL BID [facility] Last Admin: 12/02/23 21:15 Dose: 1 appl Multivitamins/Vitamin C (Multivitamin Tablet) 1 tab PO DAILY [facility] Last Admin: 12/03/23 09:07 Dose: Not Given Nicotine (Nicotine 21 Mg Patch.Td24) 21 mg TRANSDERMA DAILY PRN PRN Reason: smoking cessation Nicotine Polacrilex (Nicotine Polacrilex 2 Mg Gum) 4 mg BUCCAL Q2H PRN PRN Reason: Nicotine Cravings Last Admin: 11/24/23 15:15 Dose: 4 mg Pt Own (Culturelle (Probiotics 1 Cap)) 1 cap PO DAILY [facility] Last Admin: 12/03/23 09:08 Dose: Not Given Nystatin (Nystatin Cream 15 Gm Tube) 1 appl TOPICAL BID [facility]; Protocol Last Admin: 12/02/23 21:15 Dose: 1 appl Nystatin (Nystatin Powder 15 Gm Bottle) 1 appl TOPICAL BID [facility]; Protocol Last Admin: 12/02/23 23:43 Dose: Not Given Olanzapine (Olanzapine 5 Mg Tablet) 5 mg PO TID PRN PRN Reason: agitation Last Admin: 11/26/23 18:25 Dose: 5 mg Trazodone HCl (Trazodone Hcl 50 Mg Tablet) 50 mg PO BEDTIME MRX1 PRN PRN Reason: Insomnia Last Admin: 12/03/23 01:19 Dose: 50 mg Allergies Allergies Allergy/AdvReac Type Severity Reaction Status Date / Time kiwi [KIWI] Allergy Mild HIVES Verified 11/21/23 05:49 mold [MOLD EXTRACTS*] Allergy Mild HIVES Verified 11/21/23 05:49 Assessment & Plan Assessment & Plan (1) Venous stasis: Status: Acute Code(s): I87.8 - Other specified disorders of veins Assessment and Plan: Cellulitis mimic Po Doxycycline for 10 days and topical steroids cover possible cellulitis superinfection hx of :Sepsis concerns with tachycardia and tachypnea. (not current 12/03/23) Treat venous stasis with elevation Follow with hospitalists as I do not assess this patients disposition ( am seeing on psychiatry. Check CBC unremarkable.) (2) Chronic cellulitis: Status: Acute Code(s): L03.90 - Cellulitis, unspecified (3) Schizoaffective disorder, bipolar type: Status: Acute Code(s): F25.0 - Schizoaffective disorder, bipolar type Plan 12/01/23: Continue current tx and plan 12/02/23: Continue current plan and tx Change Chlorpromazine daytime doses to prn. 12/03/23 - seems more labile with mother present - reassuring eval by hospitalist today- they are following closely with us but encouraging and supporting patient with compliance with stockings and leg elevation seem paramount Patient educated on: medical condition Informed Consent: further education needed Reason for continued inpatient stay Substantial Risk for: med/psych decompensation Time Spent With Patient Time: Total time managing care of this patient today ____ minutes.
[2023-12-03 12:07] LABS: MANUAL DIFF FLAG NO
[2023-12-03 12:10] LABS: Basophils Percent Auto 0.4 % (0-2); Eosinophils Absolute Auto 0.1 X10*3/uL (0.0-0.4); Eosinophils Percent Auto 0.8 % (0-4); Hematocrit 33.1 % (37.0-47.0); Hemoglobin 10.8 g/dl (12.0-16.0); Imm Gran Abs Auto 0.26 X10*3/uL (0.00-0.03); Imm Gran Pct Auto 3.5 % (0.0-0.4); Lymphocytes Absolute Auto 1.9 X10*3/uL (1.2-4.9); Lymphocytes Percent Auto 25.6 % (20-40); Mean Corpuscular HGB Conc 32.6 g/dl (31.0-35.0); Mean Corpuscular Hemoglobin 28.4 pg (27.0-33.0); Mean Corpuscular Volume 87.1 fL (80.0-98.0); Mean Platelet Volume 9.4 fL (9.4-12.3); Monocytes Absolute Auto 0.6 X10*3/uL (0.1-1.2); Monocytes Percent Auto 7.8 % (2-11); Neutrophils Absolute Auto 4.5 x10*3/uL (2.0-8.3); Neutrophils Percent Auto 61.9 % (45-73); Platelet Count 162 X10*3/uL (160-400); Red Cell Distribution Width 14.6 % (11.0-16.0); White Blood Count 7.3 X10*3/uL (4.8-10.8)
[2023-12-03] MEDS: Divalproex Sodium Sprinkles 125 MG CAP.DR.SPR 1500 MG PO ×2 (12:11→20:38)
[2023-12-03 12:30] LABS: Anion Gap 19 (12-20); Blood Urea Nitrogen 7 mg/dL (9-16); Calcium 9.5 mg/dL (8.4-10.2); Carbon Dioxide 30 mmol/L (22-29); Chloride 98 mmol/L (96-108); Creatinine Clr Calc Pharmacy 212.6; Estimated Glomerular Filt Rate > 60; Glucose Random 184 mg/dL (60-115); Potassium 3.7 mmol/L (3.3-5.1); Sodium 143 mmol/L (135-145)
--- NOTE | 2023-12-03 13:18 | PM.EVENT ---
Event Note Date of Service: 12/03/23 Event Note: Pt seen in follow up for BLE edema/erythema due to venous stasis. Pt seen and examined at bedside . pt is seated in chair, barefoot. She does not appear to be in any acute distress and is not toxic appearing. Most recent vital signs reveal a tachycardia of 106 which has been ongoing since admission. There are no fevers or tachypnea. CBC repeated today without any leukocytosis (WBC 7.1). Her renal function is normal with stable electrolyte levels. Blood cultures were also drawn at that time as patient is a difficult stick and in the event of elevated WBC, these would have been collected anyway. On examination, the patient continues to exhibit erythema of the distal half of the bilateral low legs with foam dressing in place overlying shallow ulceration on dorsum of the rigiht foot as has been previously noted. There is a slight warm noted to the bilateral lower extremities likely related to her venous insufficiency and dependent edema. She is reporting intermittent pain in the BLE, again likely due to her venous insufficiency/stasis. There is minimally pitting ble edema. A/P: She has been evaluated by infectious disease and continues to be followed by the hospitalist team. At the time of examination, there does not appear to be any significant change in condition without any appreciable worsening or improvement. Given the bilateral nature of patient's symptoms, erythema most likely due to venous stasis/venous insufficiency. By nature of these conditions, erythema, slight warmth, edema is not uncommon and efforts toward reducing these symptoms, especially in effort to prevent infection as the conditions do put her at risk for infection, should be taken. On recent examinations, patient continues to be barefoot without compression. However, in discussion with nursing today, efforts have been made to place socks on patient's feet and she continues to refuse. Per nursing, compression stockings have arrived to the unit that will fit the patient and these should be worn during day time hours covering the lower half of the legs from the toes to the knees. Please also continue attempts to get the patient to wear socks as well and discourage patient from ambulating barefoot on the unit. Patient does have good awareness of her last admission and should be encouraged to wear these devices in an effort to prevent infection/reinfection. Please also elevate legs. Leg elevation, compression can help with the edema/erythema/discomfort she is feeling in the lower legs. Can continue doxycyline as recommended by ID to prevent possible cellulitis superinfection. Continue lasix. At the time of examination, there is no evidence of sepsis, pt is non toxic appearing and is not in any distress. Would continue with plan as previously noted. At this time, it is not felt the patient requires transfer to the medical floors and IV abx are not indicated. We will continue following along with you daily, but please do not hesitate to reach out for any changes in patient condition or for any questions or ongoing concerns. Time Spent With Patient Time: Total time managing care of this patient today ____ minutes.
[2023-12-03 16:35] VITALS: BP 137/69; PULSE 98; RESP 16; TEMP 36.7; O2SAT 97
[2023-12-03] MEDS: Acetaminophen 325 MG TABLET 650 MG PO (17:25)
[2023-12-03 20:40] LABS: Glucose, Whole Blood 165 mg/dL (60-115)
[2023-12-03] MEDS: LORazepam 1 MG TABLET PO (20:42)
[2023-12-03] MEDS: chlorproMAZINE HCl 100 MG TABLET PO (20:42)
[2023-12-03] MEDS: lamoTRIgine 25 MG TABLET PO (20:42)
[2023-12-03] MEDS: Docusate Sodium 100 MG CAPSULE PO (20:42)
[2023-12-04 10:00] VITALS: BP 131/74; PULSE 100; RESP 16; TEMP 36.6; O2SAT 98
[2023-12-04] MEDS: Divalproex Sodium Sprinkles 125 MG CAP.DR.SPR 1500 MG PO ×2 (10:26→20:07)
[2023-12-04] MEDS: Doxycycline Monohydrate 100 MG CAPSULE PO (10:26)
--- NOTE | 2023-12-04 12:46 | P.PNPSI_ITS ---
Subjective Subjective Date of Service: 12/04/23 Reason For Visit: manic aggressive Subjective Notes: Conditional Voluntary (wanting to sing a 3 day) Medical Problems Affecting Mental Status: Yes (poor venous stasis with edema ) Interim History: 33 yo with co of pain from PCOS and feeling of water breaking in her private area, denies any discharge- reports having taking ibuprofen with good effect last pm- suggested she try again-this am- Re 3 day told her to ask at front. Attempted to help patient raise her legs but in seated position can not raise feet above 3 inches off ground! Medication Compliance: Yes Side effects from medications: No Attending Groups: No Review of Systems Acute medical concerns: Yes ongoing issues with dependent edema Medical Review of Systems: changed (as pt reports she has complaints of PCOS : water breaking pain in urogenital area) Mental Status Exam Mental Status Exam Patient Appearance: Disheveled and Unkempt Patient Orientation: Person, Place, Time and Situation Level of Consciousness: Awake Patient Behavior: Dependent, Passive and Good Eye Contact Mood Description: Expansive Patient Cognition Impaired: No Ability to Follow Directions: Fair Speech Pattern: Clear Thought Process: Intact Thought Content: positive for Tangential Judgement: Fair Diagnostics Vital Signs (24Hr): Vital Signs - 24 hr 12/03/23 16:35 12/04/23 10:00 Temperature 98.1 F 97.8 F Pulse Rate 98 100 Respiratory Rate 16 16 Blood Pressure 137/69 131/74 Pulse Oximetry 97 98 Oxygen Delivery Method Room Air Room Air BMI result Body Mass Index 62.4 Labs 12/03/23 12:01 12/03/23 12:01 Labs: Laboratory Results - last 48 hr 12/02/23 12/03/23 12/03/23 22:19 08:11 09:33 WBC RBC Hgb Hct MCV MCH MCHC RDW Plt Count MPV Immature Gran % (Auto) Neut % (Auto) Lymph % (Auto) Real % (Auto) Eos % (Auto) Baso % (Auto) Lymph # (Auto) Real # (Auto) Eos # (Auto) Baso # (Auto) Abs Immat Gran (auto) Absolute Neuts (auto) Absolute Nucleated RBC Nucleated RBC % (auto) Hold Purple Top SEE NOTE Sodium Potassium Chloride Carbon Dioxide Anion Gap BUN Creatinine Estim Creat Clear Calc Estimated GFR POC Glucose 186 H 148 H Random Glucose Calcium Valproic Acid 93.2 12/03/23 12/03/23 12:01 20:37 WBC 7.3 RBC 3.80 L Hgb 10.8 L Hct 33.1 L MCV 87.1 MCH 28.4 MCHC 32.6 RDW 14.6 Plt Count 162 MPV 9.4 Immature Gran % (Auto) 3.5 H Neut % (Auto) 61.9 Lymph % (Auto) 25.6 Real % (Auto) 7.8 Eos % (Auto) 0.8 Baso % (Auto) 0.4 Lymph # (Auto) 1.9 Real # (Auto) 0.6 Eos # (Auto) 0.1 Baso # (Auto) 0.0 Abs Immat Gran (auto) 0.26 H Absolute Neuts (auto) 4.5 Absolute Nucleated RBC 0.000 Nucleated RBC % (auto) 0.0 Hold Purple Top Sodium 143 Potassium 3.7 Chloride 98 Carbon Dioxide 30 H Anion Gap 19 BUN 7 L Creatinine 0.72 Estim Creat Clear Calc 212.6 Estimated GFR > 60 POC Glucose 165 H Random Glucose 184 H Calcium 9.5 Valproic Acid Medications Medications Current Medications Acetaminophen (Acetaminophen 325 Mg Tablet) 650 mg PO Q6H PRN PRN Reason: Headache/Pain Mild Scale (1-3) Last Admin: 12/03/23 17:25 Dose: 650 mg Al Hydroxide/Mg Hydroxide (Magnesium Hydrox/Alum Hydrox 30 Ml Oral.Susp) 30 ml PO Q6H PRN PRN Reason: Heartburn/Nausea Last Admin: 11/29/23 22:00 Dose: 30 ml Apixaban (Apixaban 5 Mg Tablet) 5 mg PO BID [facility] Last Admin: 12/03/23 20:42 Dose: 5 mg Atenolol (Atenolol 25 Mg Tablet) 25 mg PO DAILY [facility]; Protocol Last Admin: 12/03/23 09:03 Dose: 25 mg Chlorpromazine HCl (Chlorpromazine Hcl 100 Mg Tablet) 100 mg PO BID PRN PRN Reason: brendon,psychosis Last Admin: 11/25/23 17:58 Dose: 100 mg Chlorpromazine HCl (Chlorpromazine Hcl 100 Mg Tablet) 100 mg PO BEDTIME [facility] Last Admin: 12/03/23 20:42 Dose: 100 mg Chlorpromazine HCl (Chlorpromazine Hcl 25 Mg Tablet) 25 mg PO BID@0900,1500 PRN PRN Reason: agitation Last Admin: 12/02/23 21:15 Dose: 25 mg Divalproex Sodium (Divalproex Sodium Sprinkles 125 Mg ) 1,500 mg PO BID [facility] Last Admin: 12/04/23 10:26 Dose: 1,500 mg Docusate Sodium (Docusate Sodium 100 Mg Capsule) 100 mg PO BEDTIME [facility] Last Admin: 12/03/23 20:42 Dose: 100 mg Doxycycline Monohydrate (Doxycycline Monohydrate 100 Mg Capsule) 100 mg PO Q12H [facility] Stop: 12/04/23 17:59 Last Admin: 12/04/23 10:26 Dose: 100 mg Furosemide (Furosemide 40 Mg Tablet) 40 mg PO DAILY [facility]; Protocol Last Admin: 12/03/23 09:03 Dose: 40 mg Hydrocortisone (Hydrocortisone 1 % Cream 28.35 Gm Tube) 1 appl TOPICAL BID [facility]; Protocol Last Admin: 12/03/23 22:30 Dose: Not Given Hydroxyzine HCl (Hydroxyzine Hcl 25 Mg Tablet) 25 mg PO Q6H PRN PRN Reason: Anxiety Last Admin: 11/26/23 22:25 Dose: 25 mg Lactic Acid (Ammonium Lactate 12 % Lotion 226 Gm Bottle) 1 appl TOPICAL BID [facility]; Protocol Last Admin: 12/03/23 22:30 Dose: Not Given Lamotrigine (Lamotrigine 25 Mg Tablet) 25 mg PO BEDTIME [facility] Last Admin: 12/03/23 20:42 Dose: 25 mg Lidocaine (Lidocaine 4 % Patch Adh..Patch) 1 patch TRANSDERMA DAILY [facility]; Protocol Last Admin: 12/03/23 14:02 Dose: Not Given Lorazepam (Lorazepam 1 Mg Tablet) 1 mg PO BEDTIME [facility] Last Admin: 12/03/23 20:42 Dose: 1 mg Magnesium Hydroxide (Milk Of Magnesia 30 Ml Oral.Susp) 30 ml PO DAILY PRN PRN Reason: Constipation Metformin HCl (Metformin Hcl Er 500 Mg Tab.Er.24h) 500 mg PO DAILY [facility] Last Admin: 12/03/23 09:03 Dose: 500 mg Multi-Ingred Cream/Lotion/Oil/Oint (Mineral Oil/Petrolatum,White 106 Gm Tube) 1 appl TOPICAL BID [facility] Last Admin: 12/03/23 22:30 Dose: Not Given Multivitamins/Vitamin C (Multivitamin Tablet) 1 tab PO DAILY [facility] Last Admin: 12/04/23 10:32 Dose: Not Given Nicotine (Nicotine 21 Mg Patch.Td24) 21 mg TRANSDERMA DAILY PRN PRN Reason: smoking cessation Nicotine Polacrilex (Nicotine Polacrilex 2 Mg Gum) 4 mg BUCCAL Q2H PRN PRN Reason: Nicotine Cravings Last Admin: 11/24/23 15:15 Dose: 4 mg Pt Own (Culturelle (Probiotics 1 Cap)) 1 cap PO DAILY [facility] Last Admin: 12/03/23 09:08 Dose: Not Given Nystatin (Nystatin Cream 15 Gm Tube) 1 appl TOPICAL BID [facility]; Protocol Last Admin: 12/03/23 22:30 Dose: Not Given Nystatin (Nystatin Powder 15 Gm Bottle) 1 appl TOPICAL BID [facility]; Protocol Last Admin: 12/03/23 22:30 Dose: Not Given Olanzapine (Olanzapine 5 Mg Tablet) 5 mg PO TID PRN PRN Reason: agitation Last Admin: 11/26/23 18:25 Dose: 5 mg Trazodone HCl (Trazodone Hcl 50 Mg Tablet) 50 mg PO BEDTIME MRX1 PRN PRN Reason: Insomnia Last Admin: 12/03/23 01:19 Dose: 50 mg Allergies Allergies Allergy/AdvReac Type Severity Reaction Status Date / Time kiwi [KIWI] Allergy Mild HIVES Verified 11/21/23 05:49 mold [MOLD EXTRACTS*] Allergy Mild HIVES Verified 11/21/23 05:49 Assessment & Plan Assessment & Plan (1) Venous stasis: Status: Acute Code(s): I87.8 - Other specified disorders of veins Assessment and Plan: Cellulitis mimic Po Doxycycline for 10 days and topical steroids cover possible cellulitis superinfection hx of :Sepsis concerns with tachycardia and tachypnea. (not current 12/03/23) Treat venous stasis with elevation Follow with hospitalists as I do not assess this patients disposition ( am seeing on psychiatry. Check CBC unremarkable.) (2) Chronic cellulitis: Status: Acute Code(s): L03.90 - Cellulitis, unspecified (3) Schizoaffective disorder, bipolar type: Status: Acute Code(s): F25.0 - Schizoaffective disorder, bipolar type Plan 12/01/23: Continue current tx and plan 12/02/23: Continue current plan and tx Change Chlorpromazine daytime doses to prn. 12/03/23 - seems more labile with mother present - reassuring eval by hospitalist today- they are following closely with us but encouraging and supporting patient with compliance with stockings and leg elevation seem paramount 12/04/23- limited mobility did wear kenzie stockings- but won't wear slippers/shoes- difficulty raising her feet up - ongoing hypersexual content of thought/somatic preoccupation of PCOS- wanting to sign 3d Patient educated on: diagnosis and medical condition Informed Consent: further education needed Reason for continued inpatient stay Substantial Risk for: med/psych decompensation Time Spent With Patient Time: Total time managing care of this patient today ____ minutes.
--- NOTE | 2023-12-04 14:07 | PM.EVENT ---
Event Note Date of Service: 12/04/23 Event Note: Pt seen in follow up for BLE edema/erythema due to venous stasis. Pt seen and examined at bedside. She is lying in bed with her legs elevated. Plantar surface of feet do appear dirty. Erythema and swelling actually appears slightly improved compared to yesterday. She still has erythema and mild warmth to the distal half of the bilateral lower legs with slight warm. Foam dressing applied to dorsum right foot. the 3rd left toe has nearly completely fallen off and is still attached by a small piece of nail which is cut using suture removal scissors. Other nails are too thickened and overgrown to be safely removed in this manner. Outpt follow up with podiatry is recommended. Vitals remain stable. No leukocytosis on labs drawn yesterday. Blood cultures negative to date. She did refuse the ammonium lactate and hydrocortisone yesterday. Discussed the importance of these therapies with patient. She will be taking a shower after my visit and agrees to application of these therapies and has been allowing compression stockings to be applied to the legs which she does report helps with her pain. Complete doxycycline course today. There is no evidence of acute infection at this time. Continue with conservative therapies including hydrocortisone cream, ammonium lactate, compression stockings, socks, and leg elevation. We will continue following along with you. For any ongoing concerns regarding fungal rash of the thigh, perineum would recommend reconsulting wound rn if patient is refusing therapies though again, importance of compliance was discussed with patient Time Spent With Patient Time: Total time managing care of this patient today ____ minutes.
[2023-12-04] MEDS: Nystatin Cream 15 GM TUBE 1 APPL TOPICAL (14:42)
[2023-12-04] MEDS: Furosemide 40 MG TABLET PO (15:06)
[2023-12-04] MEDS: atenoloL 25 MG TABLET PO (15:06)
[2023-12-04] MEDS: metFORMIN HCl ER 500 MG TAB.ER.24H PO (15:06)
[2023-12-04] MEDS: Mineral Oil/Petrolatum,White 106 GM Tube 1 APPL TOPICAL (15:07)
[2023-12-04] MEDS: Ammonium Lactate 12 % Lotion 226 GM BOTTLE 1 APPL TOPICAL (15:10)
[2023-12-04] MEDS: chlorproMAZINE HCl 100 MG TABLET PO (20:07)
[2023-12-04] MEDS: lamoTRIgine 25 MG TABLET PO (20:07)
[2023-12-04] MEDS: Docusate Sodium 100 MG CAPSULE PO (20:08)
[2023-12-04] MEDS: Apixaban 5 MG TABLET PO (20:08)
[2023-12-04] MEDS: LORazepam 1 MG TABLET PO (20:08)
[2023-12-04 20:18] VITALS: BP 127/80; PULSE 98; RESP 17; TEMP 36.6; O2SAT 100
[2023-12-04 22:09] LABS: Glucose, Whole Blood 140 mg/dL (60-115)
--- NOTE | 2023-12-05 12:13 | PM.EVENT ---
Event Note Date of Service: 12/05/23 Event Note: Pt seen in follow up for BLE edema/erythema due to venous stasis. Pt seen and examined at bedside. She is lying in bed. Erythema and swelling actually appears appear similar to examination performed yesterday. She has mesh stockings on her feet to the ankles bilaterally. 1+ ble edema. Mild warmth to the ble,similar to prior. Foam dressing applied to dorsum right foot. At the time of examination, there does not appear to be any significant change in condition without any appreciable worsening or improvement. Would not recommend further course of antibiotics as there is no evidence of acute cellulitis in the BLE. VSS. Clinical picture consistent with venous stasis. Reviewed wound RN note. The stockings applied to the feet bilaterally are not consistent with compression devices as recommended by wound RN and are likely providing minimal compression. She has had neeru wraps applied which would apply appropriate compression. Would recommend ordered compression devices as recommended by wound RN. Continue with leg elevation. pt has intermittent been refusing ammonium lactate and hydrocortisone. Again reeducated patient on the importance of these conservative therapies. Evaluated shallow 1cmx 1.5 cm ulceration under left breast with slight induration but no erythema, warmth, or purulent drainage, likely r/t her known hidradenitis. No evidence of infection at this time. Completed 10 day course doxycycline yesterday. Would not recommend another course of antibiotics at this time. Discussed with nursing and psychiatry recommending wound RN be reconsulted. Would also benefit from a chlorhexadine 4% rinse which is unfortunately not available on hospital formulary. Also unavailable on our outpatient pharmacy formulary. Can see if this can be brought in from another outpatient pharmacy or it is available over the counter. We will continue following. Please do not hesitate to reach out with any questions of concerns or for any changes in clinical condition. Time Spent With Patient Time: Total time managing care of this patient today ____ minutes.
[2023-12-05] MEDS: Ammonium Lactate 12 % Lotion 226 GM BOTTLE 1 APPL TOPICAL ×2 (12:28→20:54)
[2023-12-05] MEDS: Divalproex Sodium Sprinkles 125 MG CAP.DR.SPR 1500 MG PO ×2 (12:29→20:46)
[2023-12-05] MEDS: atenoloL 25 MG TABLET PO (12:29)
[2023-12-05] MEDS: Furosemide 40 MG TABLET PO (12:30)
[2023-12-05] MEDS: Apixaban 5 MG TABLET PO ×2 (12:30→20:46)
[2023-12-05] MEDS: metFORMIN HCl ER 500 MG TAB.ER.24H PO (12:31)
[2023-12-05] MEDS: Nystatin Cream 15 GM TUBE 1 APPL TOPICAL ×2 (12:31→20:54)
[2023-12-05 16:25] VITALS: BP 150/69; PULSE 89; RESP 16; TEMP 36.8; O2SAT 94
[2023-12-05] MEDS: chlorproMAZINE HCl 100 MG TABLET PO (20:46)
[2023-12-05] MEDS: Acetaminophen 325 MG TABLET 650 MG PO (20:46)
[2023-12-05] MEDS: lamoTRIgine 25 MG TABLET PO (20:47)
[2023-12-05] MEDS: LORazepam 1 MG TABLET PO (20:47)
[2023-12-05] MEDS: Docusate Sodium 100 MG CAPSULE PO (20:47)
--- NOTE | 2023-12-05 20:51 | P.PNPSI_ITS ---
Subjective Subjective Date of Service: 12/05/23 Reason For Visit: manic aggressive Subjective Notes: Conditional Voluntary and 3 Day Interim History: Patient seen case reviewed with Nursing case reviewed with hospitalist service. They recommended wound care nursing consult patient irrational fears feeling she has polycystic ovaries and expecting to go to [facility] Venous stasis with edema Medication Compliance: Yes Mental Status Exam Mental Status Exam Patient Appearance: Disheveled and Unkempt Patient Orientation: Person, Place, Time and Situation Level of Consciousness: Awake Patient Behavior: Dependent, Passive and Good Eye Contact Mood Description: Apprehensive and Expansive Affect Description: Apprehensive Patient Cognition Impaired: No Ability to Follow Directions: Fair Speech Pattern: Clear Thought Process: Intact Thought Content: positive for Tangential Judgement: Fair Judgement and Insight: Somatic irrational concern has 3 day notice feels like she needs to go to [facility] but can not really explain denies active thoughts of self-harm 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 quite worried about her father Diagnostics Vital Signs (24Hr): Vital Signs - 24 hr 12/05/23 16:25 Temperature 98.2 F Pulse Rate 89 Respiratory Rate 16 Blood Pressure 150/69 H Pulse Oximetry 94 Oxygen Delivery Method Room Air BMI result Body Mass Index 62.4 Labs 12/03/23 12:01 12/03/23 12:01 Labs: Laboratory Results - last 48 hr 11/29/23 12/04/23 09:08 22:04 POC Glucose 140 H Paliperidone 17.0 L Medications Medications Current Medications Acetaminophen (Acetaminophen 325 Mg Tablet) 650 mg PO Q6H PRN PRN Reason: Headache/Pain Mild Scale (1-3) Last Admin: 12/03/23 17:25 Dose: 650 mg Al Hydroxide/Mg Hydroxide (Magnesium Hydrox/Alum Hydrox 30 Ml Oral.Susp) 30 ml PO Q6H PRN PRN Reason: Heartburn/Nausea Last Admin: 11/29/23 22:00 Dose: 30 ml Apixaban (Apixaban 5 Mg Tablet) 5 mg PO BID [facility] Last Admin: 12/05/23 12:30 Dose: 5 mg Atenolol (Atenolol 25 Mg Tablet) 25 mg PO DAILY [facility]; Protocol Last Admin: 12/05/23 12:29 Dose: 25 mg Benzocaine (Throat Lozenge, Medicated Lozenge) 1 lozenge MUCOUS MEM Q2H PRN PRN Reason: Sore Throat Chlorpromazine HCl (Chlorpromazine Hcl 100 Mg Tablet) 100 mg PO BID PRN PRN Reason: brendon,psychosis Last Admin: 11/25/23 17:58 Dose: 100 mg Chlorpromazine HCl (Chlorpromazine Hcl 100 Mg Tablet) 100 mg PO BEDTIME INOCENCIO Last Admin: 12/04/23 20:07 Dose: 100 mg Chlorpromazine HCl (Chlorpromazine Hcl 25 Mg Tablet) 25 mg PO BID@0900,1500 PRN PRN Reason: agitation Last Admin: 12/02/23 21:15 Dose: 25 mg Divalproex Sodium (Divalproex Sodium Sprinkles 125 Mg Cap.) 1,500 mg PO BID INOCENCIO Last Admin: 12/05/23 12:29 Dose: 1,500 mg Docusate Sodium (Docusate Sodium 100 Mg Capsule) 100 mg PO BEDTIME INOCENCIO Last Admin: 12/04/23 20:08 Dose: 100 mg Furosemide (Furosemide 40 Mg Tablet) 40 mg PO DAILY INOCENCIO; Protocol Last Admin: 12/05/23 12:30 Dose: 40 mg Hydrocortisone (Hydrocortisone 1 % Cream 28.35 Gm Tube) 1 appl TOPICAL BID INOCENCIO; Protocol Last Admin: 12/05/23 12:00 Dose: Not Given Hydroxyzine HCl (Hydroxyzine Hcl 25 Mg Tablet) 25 mg PO Q6H PRN PRN Reason: Anxiety Last Admin: 11/26/23 22:25 Dose: 25 mg Lactic Acid (Ammonium Lactate 12 % Lotion 226 Gm Bottle) 1 appl TOPICAL BID INOCENCIO; Protocol Last Admin: 12/05/23 12:28 Dose: 1 appl Lamotrigine (Lamotrigine 25 Mg Tablet) 25 mg PO BEDTIME INOCENCIO Last Admin: 12/04/23 20:07 Dose: 25 mg Lidocaine (Lidocaine 4 % Patch Adh..Patch) 1 patch TRANSDERMA DAILY INOCENC[facility]; Protocol Last Admin: 12/05/23 12:00 Dose: Not Given Lorazepam (Lorazepam 1 Mg Tablet) 1 mg PO BEDTIME INOCENCIO Last Admin: 12/04/23 20:08 Dose: 1 mg Magnesium Hydroxide (Milk Of Magnesia 30 Ml Oral.Susp) 30 ml PO DAILY PRN PRN Reason: Constipation Metformin HCl (Metformin Hcl Er 500 Mg Tab.Er.24h) 500 mg PO DAILY [facility] Last Admin: 12/05/23 12:31 Dose: 500 mg Multi-Ingred Cream/Lotion/Oil/Oint (Mineral Oil/Petrolatum,White 106 Gm Tube) 1 appl TOPICAL BID [facility] Last Admin: 12/05/23 12:00 Dose: Not Given Multivitamins/Vitamin C (Multivitamin Tablet) 1 tab PO DAILY [facility] Last Admin: 12/05/23 12:31 Dose: Not Given Nicotine (Nicotine 21 Mg Patch.Td24) 21 mg TRANSDERMA DAILY PRN PRN Reason: smoking cessation Nicotine Polacrilex (Nicotine Polacrilex 2 Mg Gum) 4 mg BUCCAL Q2H PRN PRN Reason: Nicotine Cravings Last Admin: 11/24/23 15:15 Dose: 4 mg Pt Own (Culturelle (Probiotics 1 Cap)) 1 cap PO DAILY [facility] Last Admin: 12/05/23 12:30 Dose: Not Given Nystatin (Nystatin Cream 15 Gm Tube) 1 appl TOPICAL BID [facility]; Protocol Last Admin: 12/05/23 12:31 Dose: 1 appl Nystatin (Nystatin Powder 15 Gm Bottle) 1 appl TOPICAL BID [facility]; Protocol Last Admin: 12/05/23 12:00 Dose: Not Given Olanzapine (Olanzapine 5 Mg Tablet) 5 mg PO TID PRN PRN Reason: agitation Last Admin: 11/26/23 18:25 Dose: 5 mg Trazodone HCl (Trazodone Hcl 50 Mg Tablet) 50 mg PO BEDTIME MRX1 PRN PRN Reason: Insomnia Last Admin: 12/03/23 01:19 Dose: 50 mg Allergies Allergies Allergy/AdvReac Type Severity Reaction Status Date / Time kiwi [KIWI] Allergy Mild HIVES Verified 11/21/23 05:49 mold [MOLD EXTRACTS*] Allergy Mild HIVES Verified 11/21/23 05:49 Assessment & Plan Assessment & Plan (1) Venous stasis: Status: Acute Code(s): I87.8 - Other specified disorders of veins Assessment and Plan: Cellulitis mimic Po Doxycycline for 10 days and topical steroids cover possible cellulitis superinfection hx of :Sepsis concerns with tachycardia and tachypnea. (not current 12/03/23) Treat venous stasis with elevation Follow with hospitalists as I do not assess this patients disposition ( am seeing on psychiatry. Check CBC unremarkable.) (2) Chronic cellulitis: Status: Acute Code(s): L03.90 - Cellulitis, unspecified (3) Schizoaffective disorder, bipolar type: Status: Acute Code(s): F25.0 - Schizoaffective disorder, bipolar type Plan 12/01/23: Continue current tx and plan 12/02/23: Continue current plan and tx Change Chlorpromazine daytime doses to prn. 12/03/23 - seems more labile with mother present - reassuring eval by hospitalist today- they are following closely with us but encouraging and supporting patient with compliance with stockings and leg elevation seem paramount 12/04/23- limited mobility did wear kenzie stockings- but won't wear slippers/shoes- difficulty raising her feet up - ongoing hypersexual content of thought/somatic preoccupation of PCOS- wanting to sign 3d 12/05/23 Patient mostly in her room limited mobility somatic preoccupations patient did sign a 3 day unrealistic expectation regarding outpatient setting Reason for continued inpatient stay Substantial Risk for: inability to function, rapid decompensation and med/psych decompensation Time Spent With Patient Time: Total time managing care of this patient today ____ minutes.
[2023-12-05] MEDS: Hydrocortisone 1 % Cream 28.35 GM TUBE 1 APPL TOPICAL (20:54)
[2023-12-05] MEDS: Mineral Oil/Petrolatum,White 106 GM Tube 1 APPL TOPICAL (20:55)
[2023-12-06 10:30] VITALS: BP 173/99; PULSE 98; RESP 18; TEMP 36.6; O2SAT 99
[2023-12-06] MEDS: Divalproex Sodium Sprinkles 125 MG CAP.DR.SPR 1500 MG PO ×2 (10:42→21:03)
[2023-12-06] MEDS: Furosemide 40 MG TABLET PO (10:42)
[2023-12-06] MEDS: Apixaban 5 MG TABLET PO ×2 (10:43→21:04)
[2023-12-06] MEDS: Multivitamin TABLET 1 TAB PO (10:43)
[2023-12-06] MEDS: metFORMIN HCl ER 500 MG TAB.ER.24H PO (10:43)
--- NOTE | 2023-12-06 10:48 | HO.WOUND ---
Wound Consult: Follow up 33yr old?Female admitted to [facility] on 11/21 to the Behavioral Health Unit - See progress notes and H&P for detailed history.? Of note patient had recent admission and was seen by this inpatient wound care nurse. Wound consult follow up for Abdominal skin folds, Left breast and BLE. Patient agreeable to assessment and photo documentation.? The Abdominal area and perineal area were assessed they were noted for unkept odor - patient encouraged to shower - she was agreeable and reports her mother is to visit today and will provide her the assistance she needs and wants. Abdominal Skin Folds, Perineal area and Bilateral Inner Thighs Etiology: MASD (Moisture Associated Skin Damage)?Present on Admission Wound Bed: No red erythema noted at this time - no open tissue within skin fold Drainage / Odor: moisture noted with in skin fold Edges: ? Mirrored and advancing Anastacia wound: ?Intact no erythema noted Pain: denies Goals of Treatment: ?Interdry after thorough cleansing to provide moisture translocation Right Dorsal Foot Etiology: ?Resolved Cellultitis Measurements: 0.1cm x 0.2cm x 0.1cm Wound Bed: dried scab in place Drainage / Odor: none noted Edges: ? attached - well defined Anastacia wound: No red erythema, No warmth and No significant swelling noted Pain: denies pain Goals of Treatment: ? Moist wound healing - if worsening develops reconsult hospitalist for systemic treatment options - Edema wear size medium was in place and not applied properly - New size medium applied and proper application education provided to patient and staff - given todays calf circumference 55-57cm she would benefit from size Medium application. Elevate Bilateral lower legs throughout the day on pillows. Apply Edema Wear Compression Stockings - Edema Wear compression garments should be applied first thing in the morning.? Hand wash and hang dry.? Stockings should be worn from the base of the toes to just below the knee.? Fold over at end to prevent rolling.? They are disposable after about 2 weeks or regular use. Left Breast Etiology: Etiology unclear may be site of Hidradenitis - patient reports scratching often - pink red moist wound bed with small adherent area of yellow slough, pink mild erythema in periwound no s/s of infection at this time. Recommend cover with foam dressing and change ever 3 days and PRN. Recommendations: 1. Turn and Reposition every 2 hours and as needed for patient comfort.? Use pillows or wedges to support off loading positions. 2. Off Load all bony prominences with use of pillows and heel boots if needed.? Apply Preventative foams where needed. ? 3. Monitor for incontinence and moisture control, use barrier creams when needed for prevention and treatment. 4. Provide adequate and supplemental nutrition.? 5. When applicable maintain blood glucose levels per Providers order. 6. Abdominal Fold, Perineal and Bilateral Inner Thighs - Through cleansing with PH balanced soap rinse well and dry well. Tuck Interdry AG Sheet into skin fold to wick and translocate moisture away from skin fold.? Be sure to leave at least 2 inch of fabric exposed outside of skin fold.? Change when soiled. 7. Right Foot -Cleanse with NS, pat dry. Cover wound bed with foam dressing, change every other day. Moisturize lower legs to prevent or minimize risk of skin splitting with swelling. Elevate Bilateral lower legs throughout the day on pillows. Apply Edema Wear Compression Stockings size Medium (Yellow stripe) - Edema Wear compression garments should be applied first thing in the morning.? Hand wash and hang dry.? Stockings should be worn from the base of the toes to just below the knee.? Fold over at end to prevent rolling.? They are disposable after about 2 weeks or regular use. 8. Left Breast - Cleanse with NS, pat dry. Apply Foam dressing change every 3 days and PRN. Re-consult wound care Nurse for wound deterioration or wound changes.
[2023-12-06] MEDS: Nystatin Cream 15 GM TUBE 1 APPL TOPICAL (10:50)
[2023-12-06] MEDS: atenoloL 25 MG TABLET PO (10:59)
[2023-12-06] MEDS: Ammonium Lactate 12 % Lotion 226 GM BOTTLE 1 APPL TOPICAL (11:06)
[2023-12-06] MEDS: Hydrocortisone 1 % Cream 28.35 GM TUBE 1 APPL TOPICAL (11:07)
[2023-12-06] MEDS: Mineral Oil/Petrolatum,White 106 GM Tube 1 APPL TOPICAL (11:08)
--- NOTE | 2023-12-06 11:33 | P.PNPSI_ITS ---
Subjective Subjective Date of Service: 12/06/23 Reason For Visit: manic aggressive Subjective Notes: Conditional Voluntary and 3 Day Healthcare Proxy: No Guardianship: No Medical Problems Affecting Mental Status: No Interim History: Mood improved, decrease in lability. Conversation is mostly WNL with some delusional content-pt believes she is getting today. PCOS sx-agrees she wants to try ob/gyn nurse appt again. Message from mother-they are not prepared to have pt at home, will ask pt to retract three day notice or will file. Medicine today has signed off on pt's BLE erythema/cellulitis. Sx are currently stable. They are seeing this as venous stasis/venous insufficiency. This is a chronic condition for pt. Medication Compliance: Yes Side effects from medications: No Attending Groups: No Review of Systems Acute medical concerns: No Medical Review of Systems: unchanged Review of Systems Review of Systems Yes all other systems are reviewed and are negative Mental Status Exam Mental Status Exam Patient Appearance: Disheveled and Unkempt Patient Orientation: Person, Place, Time and Situation Level of Consciousness: Awake Patient Behavior: Dependent, Passive and Good Eye Contact Mood Description: Apprehensive and Expansive Affect Description: Apprehensive Patient Cognition Impaired: No Ability to Follow Directions: Fair Speech Pattern: Clear Thought Process: Intact Thought Content: positive for Tangential Judgement: Fair Diagnostics Vital Signs (24Hr): Vital Signs - 24 hr 12/05/23 16:25 12/06/23 10:30 Temperature 98.2 F 98 F Pulse Rate 89 98 Respiratory Rate 16 18 Blood Pressure 150/69 H 173/99 H Pulse Oximetry 94 99 Oxygen Delivery Method Room Air Room Air BMI result Body Mass Index 62.4 Labs 12/03/23 12:01 12/03/23 12:01 Labs: Laboratory Results - last 48 hr 11/29/23 12/04/23 09:08 22:04 POC Glucose 140 H Paliperidone 17.0 L Medications Medications Current Medications Acetaminophen (Acetaminophen 325 Mg Tablet) 650 mg PO Q6H PRN PRN Reason: Headache/Pain Mild Scale (1-3) Last Admin: 12/05/23 20:46 Dose: 650 mg Al Hydroxide/Mg Hydroxide (Magnesium Hydrox/Alum Hydrox 30 Ml Oral.Susp) 30 ml PO Q6H PRN PRN Reason: Heartburn/Nausea Last Admin: 11/29/23 22:00 Dose: 30 ml Apixaban (Apixaban 5 Mg Tablet) 5 mg PO BID INOCENCIO Last Admin: 12/06/23 10:43 Dose: 5 mg Atenolol (Atenolol 25 Mg Tablet) 25 mg PO DAILY INOCENCIO; Protocol Last Admin: 12/06/23 10:59 Dose: 25 mg Benzocaine (Throat Lozenge, Medicated Lozenge) 1 lozenge MUCOUS MEM Q2H PRN PRN Reason: Sore Throat Chlorpromazine HCl (Chlorpromazine Hcl 100 Mg Tablet) 100 mg PO BID PRN PRN Reason: brendon,psychosis Last Admin: 11/25/23 17:58 Dose: 100 mg Chlorpromazine HCl (Chlorpromazine Hcl 100 Mg Tablet) 100 mg PO BEDTIME INOCENCIO Last Admin: 12/05/23 20:46 Dose: 100 mg Chlorpromazine HCl (Chlorpromazine Hcl 25 Mg Tablet) 25 mg PO BID@0900,1500 PRN PRN Reason: agitation Last Admin: 12/02/23 21:15 Dose: 25 mg Divalproex Sodium (Divalproex Sodium Sprinkles 125 Mg Cap.) 1,500 mg PO BID INOCENCIO Last Admin: 12/06/23 10:42 Dose: 1,500 mg Docusate Sodium (Docusate Sodium 100 Mg Capsule) 100 mg PO BEDTIME INOCENCIO Last Admin: 12/05/23 20:47 Dose: 100 mg Furosemide (Furosemide 40 Mg Tablet) 40 mg PO DAILY INOCENC[facility]; Protocol Last Admin: 12/06/23 10:42 Dose: 40 mg Hydrocortisone (Hydrocortisone 1 % Cream 28.35 Gm Tube) 1 appl TOPICAL BID INOCENC[facility]; Protocol Last Admin: 12/06/23 11:07 Dose: 1 appl Hydroxyzine HCl (Hydroxyzine Hcl 25 Mg Tablet) 25 mg PO Q6H PRN PRN Reason: Anxiety Last Admin: 11/26/23 22:25 Dose: 25 mg Lactic Acid (Ammonium Lactate 12 % Lotion 226 Gm Bottle) 1 appl TOPICAL BID INOC[facility]; Protocol Last Admin: 12/06/23 11:06 Dose: 1 appl Lamotrigine (Lamotrigine 25 Mg Tablet) 25 mg PO BEDTIME INOCENCIO Last Admin: 12/05/23 20:47 Dose: 25 mg Lidocaine (Lidocaine 4 % Patch Adh..Patch) 1 patch TRANSDERMA DAILY INOC[facility]; Protocol Last Admin: 12/06/23 11:18 Dose: Not Given Lorazepam (Lorazepam 1 Mg Tablet) 1 mg PO BEDTIME [facility] Last Admin: 12/05/23 20:47 Dose: 1 mg Magnesium Hydroxide (Milk Of Magnesia 30 Ml Oral.Susp) 30 ml PO DAILY PRN PRN Reason: Constipation Metformin HCl (Metformin Hcl Er 500 Mg Tab.Er.24h) 500 mg PO DAILY INOCENC[facility] Last Admin: 12/06/23 10:43 Dose: 500 mg Multi-Ingred Cream/Lotion/Oil/Oint (Mineral Oil/Petrolatum,White 106 Gm Tube) 1 appl TOPICAL BID INOCENCIO Last Admin: 12/06/23 11:08 Dose: 1 appl Multivitamins/Vitamin C (Multivitamin Tablet) 1 tab PO DAILY [facility] Last Admin: 12/06/23 10:43 Dose: 1 tab Nicotine (Nicotine 21 Mg Patch.Td24) 21 mg TRANSDERMA DAILY PRN PRN Reason: smoking cessation Nicotine Polacrilex (Nicotine Polacrilex 2 Mg Gum) 4 mg BUCCAL Q2H PRN PRN Reason: Nicotine Cravings Last Admin: 11/24/23 15:15 Dose: 4 mg Pt Own (Culturelle (Probiotics 1 Cap)) 1 cap PO DAILY [facility] Last Admin: 12/06/23 10:56 Dose: Not Given Nystatin (Nystatin Cream 15 Gm Tube) 1 appl TOPICAL BID [facility]; Protocol Last Admin: 12/06/23 10:50 Dose: 1 appl Nystatin (Nystatin Powder 15 Gm Bottle) 1 appl TOPICAL BID [facility]; Protocol Last Admin: 12/06/23 11:09 Dose: Not Given Olanzapine (Olanzapine 5 Mg Tablet) 5 mg PO TID PRN PRN Reason: agitation Last Admin: 11/26/23 18:25 Dose: 5 mg Trazodone HCl (Trazodone Hcl 50 Mg Tablet) 50 mg PO BEDTIME MRX1 PRN PRN Reason: Insomnia Last Admin: 12/03/23 01:19 Dose: 50 mg Allergies Allergies Allergy/AdvReac Type Severity Reaction Status Date / Time kiwi [KIWI] Allergy Mild HIVES Verified 11/21/23 05:49 mold [MOLD EXTRACTS*] Allergy Mild HIVES Verified 11/21/23 05:49 Assessment & Plan Assessment & Plan (1) Venous stasis: Status: Acute Code(s): I87.8 - Other specified disorders of veins Assessment and Plan: Cellulitis mimic Po Doxycycline for 10 days and topical steroids cover possible cellulitis superinfection hx of :Sepsis concerns with tachycardia and tachypnea. (not current 12/03/23) Treat venous stasis with elevation Follow with hospitalists as I do not assess this patients disposition ( am seeing on psychiatry. Check CBC unremarkable.) (2) Chronic cellulitis: Status: Acute Code(s): L03.90 - Cellulitis, unspecified (3) Schizoaffective disorder, bipolar type: Status: Acute Code(s): F25.0 - Schizoaffective disorder, bipolar type Plan 12/01/23: Continue current tx and plan 12/02/23: Continue current plan and tx Change Chlorpromazine daytime doses to prn. 12/03/23 - seems more labile with mother present - reassuring eval by hospitalist today- they are following closely with us but encouraging and supporting patient with compliance with stockings and leg elevation seem paramount 12/04/23- limited mobility did wear kenzie stockings- but won't wear slippers/shoes- difficulty raising her feet up - ongoing hypersexual content of thought/somatic preoccupation of PCOS- wanting to sign 3d 12/05/23 Patient mostly in her room limited mobility somatic preoccupations patient did sign a 3 day unrealistic expectation regarding outpatient setting Informed Consent: does not understand Reason for continued inpatient stay Substantial Risk for: med/psych decompensation Time Spent With Patient Time: Total time managing care of this patient today ____ minutes.
[2023-12-06 12:08] LABS: Glucose, Whole Blood 142 mg/dL (60-115)
[2023-12-06 13:30] VITALS: BP 132/81; PULSE 84
--- NOTE | 2023-12-06 15:07 | P.EN_ITS ---
Event Note Date of Service: 12/06/23 Event Note: Pt seen in follow up for BLE edema/erythema due to venous stasis. Pt seen and examined at bedside with mother present. She is sitting on the side of the bed with appropriately fitting mesh compression stocking from the base of toes to knees with yellow stripe (approprize size for pt) and red socks on feet. Erythema and swelling actually appears appear similar to examination performed yesterday and prior visits. 1+ ble edema. Mild warmth to the ble, similar to prior exams. Foam dressing applied to dorsum right foot. At the time of examination, there does not appear to be any significant change in condition without any appreciable worsening or improvement. She has now been off doxycycline for 48+hours. Vitals remain stable. No evidence of sepsis. Would not recommend further course of antibiotics as there is no evidence of acute cellulitis in the BLE. No evidence of acute infection. Clinical picture consistent with venous stasis. Reviewed wound RN note from this morning. She should continue with compression stockings observed today during exam (yello w stripe, worn base of toes to knees). Wear during day time hours. Remove at bedtime. Encourage showering, leg elevation, ambulation. Continue with hydrocortisone cream and ammonium lactate as ordered. Continue consulting rn angiography as needed. Clinical picture has been stable for days without any appreciable change and no worsening on clinical condition. Given stability of patient condition and absence of infection, signing off at this time. Please do not hesitate to reach out for any questions, concerns, or for any change in clinical condition. Sign off discussed with psychiatry. Time Spent With Patient Time: Total time managing care of this patient today ____ minutes.
[2023-12-06 18:00] VITALS: BP 182/83; PULSE 77; RESP 18; TEMP 36.6; O2SAT 96
[2023-12-06 18:13] LABS: Glucose, Whole Blood 144 mg/dL (60-115)
[2023-12-06] MEDS: LORazepam 1 MG TABLET PO (21:04)
[2023-12-06] MEDS: Docusate Sodium 100 MG CAPSULE PO (21:04)
[2023-12-06] MEDS: lamoTRIgine 25 MG TABLET PO (21:04)
[2023-12-06] MEDS: chlorproMAZINE HCl 100 MG TABLET PO (21:04)
[2023-12-07 11:34] VITALS: BP 144/73; PULSE 96; RESP 18; TEMP 36.6; O2SAT 98
[2023-12-07] MEDS: Furosemide 40 MG TABLET PO (11:39)
[2023-12-07] MEDS: Multivitamin TABLET 1 TAB PO (11:39)
[2023-12-07] MEDS: Divalproex Sodium Sprinkles 125 MG CAP.DR.SPR 1500 MG PO ×2 (11:40→20:04)
[2023-12-07] MEDS: Apixaban 5 MG TABLET PO ×2 (11:41→20:05)
[2023-12-07] MEDS: metFORMIN HCl ER 500 MG TAB.ER.24H PO (11:42)
[2023-12-07] MEDS: atenoloL 25 MG TABLET PO (11:55)
[2023-12-07] MEDS: Ammonium Lactate 12 % Lotion 226 GM BOTTLE 1 APPL TOPICAL ×2 (12:58→20:07)
[2023-12-07] MEDS: Hydrocortisone 1 % Cream 28.35 GM TUBE 1 APPL TOPICAL ×2 (13:00→20:07)
[2023-12-07] MEDS: Mineral Oil/Petrolatum,White 106 GM Tube 1 APPL TOPICAL ×2 (13:01→20:07)
[2023-12-07] MEDS: Nystatin Cream 15 GM TUBE 1 APPL TOPICAL ×2 (13:02→20:07)
[2023-12-07] MEDS: Nystatin Powder 15 GM BOTTLE 1 APPL TOPICAL (13:03)
[2023-12-07] MEDS: Lidocaine 4 % Patch ADH..PATCH 1 PATCH TRANSDERMA (13:05)
[2023-12-07 13:24] LABS: Glucose, Whole Blood 179 mg/dL (60-115)
--- NOTE | 2023-12-07 15:43 | P.PNPSI_ITS ---
Subjective Subjective Date of Service: 12/07/23 Reason For Visit: manic aggressive Subjective Notes: 3 Day (retracted) Healthcare Proxy: Yes Guardianship: No Medical Problems Affecting Mental Status: No Interim History: Retracted three day notice. Met with team and parents to discuss discharge plans. Calm, clearer today, now with increase in sedation. Sustenna is due 12/07. Will begin to decrease Depakote, Chlorpromazine as pt is stabilizing. Medication Compliance: Yes Side effects from medications: No Attending Groups: No Review of Systems Acute medical concerns: No Medical Review of Systems: unchanged Mental Status Exam Mental Status Exam Patient Appearance: Appropriate Patient Orientation: Person, Place, Time and Situation Level of Consciousness: Awake Patient Behavior: Appropriate and Good Eye Contact Mood Description: Expansive Affect Description: Expansive Patient Cognition Impaired: No Ability to Follow Directions: Fair Speech Pattern: Clear Memory Description: Episodic Impaired Hallucinations: None Thought Process: Intact Thought Content: positive for Tangential Judgement: Fair Diagnostics Vital Signs (24Hr): Vital Signs - 24 hr 12/06/23 18:00 12/07/23 11:34 Temperature 97.9 F 97.8 F Pulse Rate 77 96 Respiratory Rate 18 18 Blood Pressure 182/83 H 144/73 H Pulse Oximetry 96 98 Oxygen Delivery Method Room Air Room Air BMI result Body Mass Index 62.4 Labs 12/03/23 12:01 12/08/23 09:33 Labs: Laboratory Results - last 48 hr 12/06/23 12/06/23 12/07/23 12:04 18:05 13:19 POC Glucose 142 H 144 H 179 H Medications Medications Current Medications Acetaminophen (Acetaminophen 325 Mg Tablet) 650 mg PO Q6H PRN PRN Reason: Headache/Pain Mild Scale (1-3) Last Admin: 12/05/23 20:46 Dose: 650 mg Al Hydroxide/Mg Hydroxide (Magnesium Hydrox/Alum Hydrox 30 Ml Oral.Susp) 30 ml PO Q6H PRN PRN Reason: Heartburn/Nausea Last Admin: 11/29/23 22:00 Dose: 30 ml Apixaban (Apixaban 5 Mg Tablet) 5 mg PO BID [facility]OC[facility] Last Admin: 12/07/23 11:41 Dose: 5 mg Atenolol (Atenolol 25 Mg Tablet) 25 mg PO DAILY [facility]; Protocol Last Admin: 12/07/23 11:55 Dose: 25 mg Benzocaine (Throat Lozenge, Medicated Lozenge) 1 lozenge MUCOUS MEM Q2H PRN PRN Reason: Sore Throat Chlorpromazine HCl (Chlorpromazine Hcl 100 Mg Tablet) 100 mg PO BID PRN PRN Reason: brendon,psychosis Last Admin: 11/25/23 17:58 Dose: 100 mg Chlorpromazine HCl (Chlorpromazine Hcl 100 Mg Tablet) 100 mg PO BEDTIME [facility] Last Admin: 12/06/23 21:04 Dose: 100 mg Chlorpromazine HCl (Chlorpromazine Hcl 25 Mg Tablet) 25 mg PO BID@0900,1500 PRN PRN Reason: agitation Last Admin: 12/02/23 21:15 Dose: 25 mg Divalproex Sodium (Divalproex Sodium Sprinkles 125 Mg Cap.DrJcSpr) 1,500 mg PO BID INOC[facility] Last Admin: 12/07/23 11:40 Dose: 1,500 mg Docusate Sodium (Docusate Sodium 100 Mg Capsule) 100 mg PO BEDTIME [facility] Last Admin: 12/06/23 21:04 Dose: 100 mg Furosemide (Furosemide 40 Mg Tablet) 40 mg PO DAILY [facility]; Protocol Last Admin: 12/07/23 11:39 Dose: 40 mg Hydrocortisone (Hydrocortisone 1 % Cream 28.35 Gm Tube) 1 appl TOPICAL BID [facility]; Protocol Last Admin: 12/07/23 13:00 Dose: 1 appl Hydroxyzine HCl (Hydroxyzine Hcl 25 Mg Tablet) 25 mg PO Q6H PRN PRN Reason: Anxiety Last Admin: 11/26/23 22:25 Dose: 25 mg Lactic Acid (Ammonium Lactate 12 % Lotion 226 Gm Bottle) 1 appl TOPICAL BID [facility]; Protocol Last Admin: 12/07/23 12:58 Dose: 1 appl Lamotrigine (Lamotrigine 25 Mg Tablet) 25 mg PO BEDTIME [facility] Last Admin: 12/06/23 21:04 Dose: 25 mg Lidocaine (Lidocaine 4 % Patch Adh..Patch) 1 patch TRANSDERMA DAILY [facility]; Protocol Last Admin: 12/07/23 13:05 Dose: 1 patch Lorazepam (Lorazepam 1 Mg Tablet) 1 mg PO BEDTIME [facility] Last Admin: 12/06/23 21:04 Dose: 1 mg Magnesium Hydroxide (Milk Of Magnesia 30 Ml Oral.Susp) 30 ml PO DAILY PRN PRN Reason: Constipation Metformin HCl (Metformin Hcl Er 500 Mg Tab.Er.24h) 500 mg PO DAILY REPLACED BY [facility] Last Admin: 12/07/23 11:42 Dose: 500 mg Multi-Ingred Cream/Lotion/Oil/Oint (Mineral Oil/Petrolatum,White 106 Gm Tube) 1 appl TOPICAL BID REPLACED BY [facility] Last Admin: 12/07/23 13:01 Dose: 1 appl Multivitamins/Vitamin C (Multivitamin Tablet) 1 tab PO DAILY REPLACED BY [facility] Last Admin: 12/07/23 11:39 Dose: 1 tab Nicotine (Nicotine 21 Mg Patch.Td24) 21 mg TRANSDERMA DAILY PRN PRN Reason: smoking cessation Nicotine Polacrilex (Nicotine Polacrilex 2 Mg Gum) 4 mg BUCCAL Q2H PRN PRN Reason: Nicotine Cravings Last Admin: 11/24/23 15:15 Dose: 4 mg Pt Own (Culturelle (Probiotics 1 Cap)) 1 cap PO DAILY REPLACED BY [facility] Last Admin: 12/07/23 12:55 Dose: Not Given Nystatin (Nystatin Cream 15 Gm Tube) 1 appl TOPICAL BID REPLACED BY [facility]; Protocol Last Admin: 12/07/23 13:02 Dose: 1 appl Nystatin (Nystatin Powder 15 Gm Bottle) 1 appl TOPICAL BID REPLACED BY [facility]; Protocol Last Admin: 12/07/23 13:03 Dose: 1 appl Olanzapine (Olanzapine 5 Mg Tablet) 5 mg PO TID PRN PRN Reason: agitation Last Admin: 11/26/23 18:25 Dose: 5 mg Paliperidone Palmitate (Paliperidone Palmitate 234 Mg/1.5 Ml Syringe) 234 mg IM Q30D REPLACED BY [facility] Trazodone HCl (Trazodone Hcl 50 Mg Tablet) 50 mg PO BEDTIME MRX1 PRN PRN Reason: Insomnia Last Admin: 12/03/23 01:19 Dose: 50 mg Allergies Allergies Allergy/AdvReac Type Severity Reaction Status Date / Time kiwi [KIWI] Allergy Mild HIVES Verified 11/21/23 05:49 mold [MOLD EXTRACTS*] Allergy Mild HIVES Verified 11/21/23 05:49 Assessment & Plan Assessment & Plan (1) Venous stasis: Status: Acute Code(s): I87.8 - Other specified disorders of veins Assessment and Plan: Cellulitis mimic Po Doxycycline for 10 days and topical steroids cover possible cellulitis superinfection hx of :Sepsis concerns with tachycardia and tachypnea. (not current 12/03/23) Treat venous stasis with elevation Follow with hospitalists as I do not assess this patients disposition ( am seeing on psychiatry. Check CBC unremarkable.) (2) Chronic cellulitis: Status: Acute Code(s): L03.90 - Cellulitis, unspecified (3) Schizoaffective disorder, bipolar type: Status: Acute Code(s): F25.0 - Schizoaffective disorder, bipolar type Plan 12/01/23: Continue current tx and plan 12/02/23: Continue current plan and tx Change Chlorpromazine daytime doses to prn. 12/03/23 - seems more labile with mother present - reassuring eval by hospitalist today- they are following closely with us but encouraging and supporting patient with compliance with stockings and leg elevation seem paramount 12/04/23- limited mobility did wear kenzie stockings- but won't wear slippers/shoes- difficulty raising her feet up - ongoing hypersexual content of thought/somatic preoccupation of PCOS- wanting to sign 3d 12/05/23 Patient mostly in her room limited mobility somatic preoccupations patient did sign a 3 day unrealistic expectation regarding outpatient setting 12/07/23 Three day notice retracted Sustenna due 12/07. Will begin decreasing Valproate and Chlorpromazine after injection. Patient educated on: medication risk/benefits and therapeutic strategies Informed Consent: further education needed Reason for continued inpatient stay Substantial Risk for: rapid decompensation and med/psych decompensation Time Spent With Patient Time: Total time managing care of this patient today ____ minutes.
[2023-12-07 16:54] VITALS: BP 152/75; PULSE 90; RESP 19; TEMP 36.6; O2SAT 97
[2023-12-07] MEDS: Docusate Sodium 100 MG CAPSULE PO (20:05)
[2023-12-07] MEDS: chlorproMAZINE HCl 100 MG TABLET PO (20:05)
[2023-12-07] MEDS: lamoTRIgine 25 MG TABLET PO (20:05)
[2023-12-07] MEDS: LORazepam 1 MG TABLET PO (20:05)
[2023-12-07 20:51] LABS: Glucose, Whole Blood 153 mg/dL (60-115)
[2023-12-08] MEDS: Multivitamin TABLET 1 TAB PO (09:37)
[2023-12-08] MEDS: metFORMIN HCl ER 500 MG TAB.ER.24H PO (09:37)
[2023-12-08] MEDS: Apixaban 5 MG TABLET PO ×2 (09:37→20:49)
[2023-12-08] MEDS: Furosemide 40 MG TABLET PO (09:37)
[2023-12-08] MEDS: atenoloL 25 MG TABLET PO (09:37)
[2023-12-08] MEDS: Divalproex Sodium Sprinkles 125 MG CAP.DR.SPR 1500 MG PO (09:37)
[2023-12-08 10:13] LABS: Creatinine Clr Calc Pharmacy 250.9; Estimated Glomerular Filt Rate > 60
[2023-12-08 10:27] VITALS: BP 145/82; PULSE 89; RESP 16; TEMP 36.6; O2SAT 97
[2023-12-08] MEDS: Nystatin Powder 15 GM BOTTLE 1 APPL TOPICAL ×2 (10:55→22:45)
[2023-12-08] MEDS: Mineral Oil/Petrolatum,White 106 GM Tube 1 APPL TOPICAL ×2 (10:56→22:45)
[2023-12-08] MEDS: Ammonium Lactate 12 % Lotion 226 GM BOTTLE 1 APPL TOPICAL ×2 (10:56→22:45)
[2023-12-08] MEDS: Hydrocortisone 1 % Cream 28.35 GM TUBE 1 APPL TOPICAL (10:56)
--- NOTE | 2023-12-08 10:57 | PC.NURSE ---
pt has episode of incontinence while waking in the morning. Pt was given a full bed bath, medicated creams applied to affected areas and TEDS wear applied. Pt was dressed in clean clothing, linens changed and all laundry is now washing. Pt was able to participate and help during entire process. Pt is currently resting comfortable.
[2023-12-08 12:22] LABS: Glucose, Whole Blood 156 mg/dL (60-115)
--- NOTE | 2023-12-08 15:09 | HO.PSYCHPN ---
Subjective Subjective Date of Service: 12/08/23 Reason For Visit: manic aggressive Subjective Notes: Conditional Voluntary Healthcare Proxy: No Guardianship: No Medical Problems Affecting Mental Status: No Interim History: Discussed changes to Valproate and Chlorpromazine with pt who agrees. Message from pt's mother wanting to decrease medications in preparation for discharge. PT consult ordered. Medication Compliance: Yes Side effects from medications: Yes (sedation) Attending Groups: No Review of Systems Acute medical concerns: No Medical Review of Systems: unchanged Review of Systems Review of Systems PCOS discomfort pt reports. Yes all other systems are reviewed and are negative Mental Status Exam Mental Status Exam Patient Appearance: Appropriate Patient Orientation: Person, Place, Time and Situation Level of Consciousness: Awake Patient Behavior: Appropriate and Good Eye Contact Mood Description: Expansive Affect Description: Expansive Patient Cognition Impaired: No Ability to Follow Directions: Fair Speech Pattern: Clear Memory Description: Episodic Impaired Hallucinations: None Thought Process: Intact Thought Content: positive for Tangential Judgement: Fair Diagnostics Vital Signs (24Hr): Vital Signs - 24 hr 12/07/23 16:54 Temperature 97.8 F Pulse Rate 90 Respiratory Rate 19 Blood Pressure 152/75 H Pulse Oximetry 97 Oxygen Delivery Method Room Air BMI result Body Mass Index 62.4 Labs 12/03/23 12:01 12/08/23 09:33 Labs: Laboratory Results - last 48 hr 12/06/23 12/07/23 12/07/23 18:05 13:19 20:46 Creatinine Estim Creat Clear Calc Estimated GFR POC Glucose 144 H 179 H 153 H 12/08/23 12/08/23 09:33 12:18 Creatinine 0.61 Estim Creat Clear Calc 250.9 Estimated GFR > 60 POC Glucose 156 H Medications Medications Current Medications Acetaminophen (Acetaminophen 325 Mg Tablet) 650 mg PO Q6H PRN PRN Reason: Headache/Pain Mild Scale (1-3) Last Admin: 12/05/23 20:46 Dose: 650 mg Al Hydroxide/Mg Hydroxide (Magnesium Hydrox/Alum Hydrox 30 Ml Oral.Susp) 30 ml PO Q6H PRN PRN Reason: Heartburn/Nausea Last Admin: 11/29/23 22:00 Dose: 30 ml Apixaban (Apixaban 5 Mg Tablet) 5 mg PO BID INOCENCIO Last Admin: 12/08/23 09:37 Dose: 5 mg Atenolol (Atenolol 25 Mg Tablet) 25 mg PO DAILY [facility]; Protocol Last Admin: 12/08/23 09:37 Dose: 25 mg Benzocaine (Throat Lozenge, Medicated Lozenge) 1 lozenge MUCOUS MEM Q2H PRN PRN Reason: Sore Throat Chlorpromazine HCl (Chlorpromazine Hcl 100 Mg Tablet) 100 mg PO BID PRN PRN Reason: brendon,psychosis Last Admin: 11/25/23 17:58 Dose: 100 mg Chlorpromazine HCl (Chlorpromazine Hcl 25 Mg Tablet) 25 mg PO BID@0900,1500 PRN PRN Reason: agitation Last Admin: 12/02/23 21:15 Dose: 25 mg Chlorpromazine HCl (Chlorpromazine Hcl 100 Mg Tablet) 100 mg PO BEDTIME PRN PRN Reason: insomnia, agitation Divalproex Sodium (Divalproex Sodium Sprinkles 125 Mg Cap.) 1,000 mg PO BID INOCENCIO Docusate Sodium (Docusate Sodium 100 Mg Capsule) 100 mg PO BEDTIME INOCENCIO Last Admin: 12/07/23 20:05 Dose: 100 mg Furosemide (Furosemide 40 Mg Tablet) 40 mg PO DAILY [facility]; Protocol Last Admin: 12/08/23 09:37 Dose: 40 mg Hydrocortisone (Hydrocortisone 1 % Cream 28.35 Gm Tube) 1 appl TOPICAL BID [facility]; Protocol Last Admin: 12/08/23 10:56 Dose: 1 appl Hydroxyzine HCl (Hydroxyzine Hcl 25 Mg Tablet) 25 mg PO Q6H PRN PRN Reason: Anxiety Last Admin: 11/26/23 22:25 Dose: 25 mg Lactic Acid (Ammonium Lactate 12 % Lotion 226 Gm Bottle) 1 appl TOPICAL BID [facility]; Protocol Last Admin: 12/08/23 10:56 Dose: 1 appl Lamotrigine (Lamotrigine 25 Mg Tablet) 25 mg PO BEDTIME INOCENCIO Last Admin: 12/07/23 20:05 Dose: 25 mg Lidocaine (Lidocaine 4 % Patch Adh..Patch) 1 patch TRANSDERMA DAILY [facility]; Protocol Last Admin: 12/08/23 12:07 Dose: Not Given Lorazepam (Lorazepam 1 Mg Tablet) 1 mg PO BEDTIME INOCENCIO Last Admin: 12/07/23 20:05 Dose: 1 mg Magnesium Hydroxide (Milk Of Magnesia 30 Ml Oral.Susp) 30 ml PO DAILY PRN PRN Reason: Constipation Metformin HCl (Metformin Hcl Er 500 Mg Tab.Er.24h) 500 mg PO DAILY [facility] Last Admin: 12/08/23 09:37 Dose: 500 mg Multi-Ingred Cream/Lotion/Oil/Oint (Mineral Oil/Petrolatum,White 106 Gm Tube) 1 appl TOPICAL BID INOCENCIO Last Admin: 12/08/23 10:56 Dose: 1 appl Multivitamins/Vitamin C (Multivitamin Tablet) 1 tab PO DAILY [facility] Last Admin: 12/08/23 09:37 Dose: 1 tab Nicotine (Nicotine 21 Mg Patch.Td24) 21 mg TRANSDERMA DAILY PRN PRN Reason: smoking cessation Nicotine Polacrilex (Nicotine Polacrilex 2 Mg Gum) 4 mg BUCCAL Q2H PRN PRN Reason: Nicotine Cravings Last Admin: 11/24/23 15:15 Dose: 4 mg Pt Own (Culturelle (Probiotics 1 Cap)) 1 cap PO DAILY [facility] Last Admin: 12/08/23 12:07 Dose: Not Given Nystatin (Nystatin Cream 15 Gm Tube) 1 appl TOPICAL BID [facility]; Protocol Last Admin: 12/08/23 10:57 Dose: Not Given Nystatin (Nystatin Powder 15 Gm Bottle) 1 appl TOPICAL BID [facility]; Protocol Last Admin: 12/08/23 10:55 Dose: 1 appl Olanzapine (Olanzapine 5 Mg Tablet) 5 mg PO TID PRN PRN Reason: agitation Last Admin: 11/26/23 18:25 Dose: 5 mg Paliperidone Palmitate (Paliperidone Palmitate 234 Mg/1.5 Ml Syringe) 234 mg IM Q30D [facility] Trazodone HCl (Trazodone Hcl 50 Mg Tablet) 50 mg PO BEDTIME MRX1 PRN PRN Reason: Insomnia Last Admin: 12/03/23 01:19 Dose: 50 mg Allergies Allergies Allergy/AdvReac Type Severity Reaction Status Date / Time kiwi [KIWI] Allergy Mild HIVES Verified 11/21/23 05:49 mold [MOLD EXTRACTS*] Allergy Mild HIVES Verified 11/21/23 05:49 Assessment & Plan Assessment & Plan (1) Venous stasis: Status: Acute Code(s): I87.8 - Other specified disorders of veins Assessment and Plan: Cellulitis mimic Po Doxycycline for 10 days and topical steroids cover possible cellulitis superinfection hx of :Sepsis concerns with tachycardia and tachypnea. (not current 12/03/23) Treat venous stasis with elevation Follow with hospitalists as I do not assess this patients disposition ( am seeing on psychiatry. Check CBC unremarkable.) (2) Chronic cellulitis: Status: Acute Code(s): L03.90 - Cellulitis, unspecified (3) Schizoaffective disorder, bipolar type: Status: Acute Code(s): F25.0 - Schizoaffective disorder, bipolar type Plan 12/01/23: Continue current tx and plan 12/02/23: Continue current plan and tx Change Chlorpromazine daytime doses to prn. 12/03/23 - seems more labile with mother present - reassuring eval by hospitalist today- they are following closely with us but encouraging and supporting patient with compliance with stockings and leg elevation seem paramount 12/04/23- limited mobility did wear kenzie stockings- but won't wear slippers/shoes- difficulty raising her feet up - ongoing hypersexual content of thought/somatic preoccupation of PCOS- wanting to sign 3d 12/05/23 Patient mostly in her room limited mobility somatic preoccupations patient did sign a 3 day unrealistic expectation regarding outpatient setting 12/08/23 Change Chlorpromazine 100 mg HS to prn Decrease Valproate from 3000 mg daily to 2000 mg daily Sustenna 234 mg IM given today by team. Patient educated on: medication risk/benefits Informed Consent: further education needed Reason for continued inpatient stay Substantial Risk for: med/psych decompensation Time Spent With Patient Time: Total time managing care of this patient today ____ minutes.
--- NOTE | 2023-12-08 16:36 | PC.NURSE ---
pt is currently refusing paliperidone injection. I want talk to my mom first. The last time I got it I was sent to the ICU . Pt educated on prior sepsis diagnosis and the need for ICU. Pt verbalized understanding but still wants to speak with her mother first. Mother is suppose to call around dinner time. Will follow up with pt about 6pm. Provider is aware.
[2023-12-08] MEDS: Paliperidone Palmitate 234 MG/1.5 ML SYRINGE IM (16:45)
--- NOTE | 2023-12-08 17:01 | PC.NURSE ---
pt approached nurse and stated she would like to receive her paliperidone injection. Medication administered as ordered. Provider notified of update.
[2023-12-08 18:00] VITALS: BP 146/97; PULSE 93; RESP 18; TEMP 37.1; O2SAT 92
[2023-12-08] MEDS: Docusate Sodium 100 MG CAPSULE PO (20:49)
[2023-12-08] MEDS: Divalproex Sodium Sprinkles 125 MG CAP.DR.SPR 1000 MG PO (20:49)
[2023-12-08] MEDS: LORazepam 1 MG TABLET PO (20:49)
[2023-12-08] MEDS: lamoTRIgine 25 MG TABLET PO (20:49)
[2023-12-08] MEDS: Nystatin Cream 15 GM TUBE 1 APPL TOPICAL (22:45)
[2023-12-09 08:58] VITALS: BP 144/83; PULSE 99; O2SAT 96
[2023-12-09 09:25] VITALS: BP 144/83; PULSE 99; RESP 18; TEMP 36.9; O2SAT 96
[2023-12-09 09:27] LABS: Glucose, Whole Blood 136 mg/dL (60-115)
[2023-12-09] MEDS: Ammonium Lactate 12 % Lotion 226 GM BOTTLE 1 APPL TOPICAL ×2 (09:53→20:42)
[2023-12-09] MEDS: metFORMIN HCl ER 500 MG TAB.ER.24H PO (09:54)
[2023-12-09] MEDS: Multivitamin TABLET 1 TAB PO (09:54)
[2023-12-09] MEDS: Furosemide 40 MG TABLET PO (09:54)
[2023-12-09] MEDS: Divalproex Sodium Sprinkles 125 MG CAP.DR.SPR 1000 MG PO ×2 (09:54→20:38)
[2023-12-09] MEDS: Apixaban 5 MG TABLET PO ×2 (09:54→20:41)
[2023-12-09] MEDS: atenoloL 25 MG TABLET PO (10:11)
--- NOTE | 2023-12-09 14:45 | P.PNPSI_ITS ---
Subjective Subjective Date of Service: 12/09/23 Reason For Visit: manic aggressive Subjective Notes: Conditional Voluntary Healthcare Proxy: Yes Guardianship: No Medical Problems Affecting Mental Status: No Interim History: Pt sleeping when tw went to meet with her. Awake later in the day. Much improved. Clear, decreased lability, engaging in discussion with others. Agreed to medication decreases. We continue to monitor their efficacy. Medication Compliance: Yes Side effects from medications: Yes (sedation. Day 2 of Valproate/Chlorpromazine decrease) Attending Groups: No Review of Systems Acute medical concerns: No Medical Review of Systems: unchanged Review of Systems Review of Systems Yes all other systems are reviewed and are negative Mental Status Exam Mental Status Exam Patient Appearance: Appropriate Patient Orientation: Person, Place, Time and Situation Level of Consciousness: Awake Patient Behavior: Appropriate and Good Eye Contact Mood Description: Expansive Affect Description: Expansive Patient Cognition Impaired: No Ability to Follow Directions: Fair Speech Pattern: Clear Memory Description: Episodic Impaired Hallucinations: None Thought Process: Intact Thought Content: positive for Tangential Judgement: Fair Diagnostics Vital Signs (24Hr): Vital Signs - 24 hr 12/08/23 18:00 12/09/23 08:58 12/09/23 09:25 Temperature 98.8 F 98.4 F Pulse Rate 93 99 99 Respiratory Rate 18 18 Blood Pressure 146/97 H 144/83 H 144/83 H Pulse Oximetry 92 96 96 Oxygen Delivery Method Room Air Room Air BMI result Body Mass Index 62.4 Labs 12/03/23 12:01 12/08/23 09:33 Labs: Laboratory Results - last 48 hr 12/07/23 12/08/23 12/08/23 20:46 09:33 12:18 Creatinine 0.61 Estim Creat Clear Calc 250.9 Estimated GFR > 60 POC Glucose 153 H 156 H 12/09/23 09:21 Creatinine Estim Creat Clear Calc Estimated GFR POC Glucose 136 H Medications Medications Current Medications Acetaminophen (Acetaminophen 325 Mg Tablet) 650 mg PO Q6H PRN PRN Reason: Headache/Pain Mild Scale (1-3) Last Admin: 12/05/23 20:46 Dose: 650 mg Al Hydroxide/Mg Hydroxide (Magnesium Hydrox/Alum Hydrox 30 Ml Oral.Susp) 30 ml PO Q6H PRN PRN Reason: Heartburn/Nausea Last Admin: 11/29/23 22:00 Dose: 30 ml Apixaban (Apixaban 5 Mg Tablet) 5 mg PO BID [facility]OC[facility] Last Admin: 12/09/23 09:54 Dose: 5 mg Atenolol (Atenolol 25 Mg Tablet) 25 mg PO DAILY [facility]; Protocol Last Admin: 12/09/23 10:11 Dose: 25 mg Benzocaine (Throat Lozenge, Medicated Lozenge) 1 lozenge MUCOUS MEM Q2H PRN PRN Reason: Sore Throat Chlorpromazine HCl (Chlorpromazine Hcl 100 Mg Tablet) 100 mg PO BID PRN PRN Reason: brendon,psychosis Last Admin: 11/25/23 17:58 Dose: 100 mg Chlorpromazine HCl (Chlorpromazine Hcl 25 Mg Tablet) 25 mg PO BID@0900,1500 PRN PRN Reason: agitation Last Admin: 12/02/23 21:15 Dose: 25 mg Chlorpromazine HCl (Chlorpromazine Hcl 100 Mg Tablet) 100 mg PO BEDTIME PRN PRN Reason: insomnia, agitation Divalproex Sodium (Divalproex Sodium Sprinkles 125 Mg Cap.Dr.Spr) 1,000 mg PO BID [facility]OC[facility]IO Last Admin: 12/09/23 09:54 Dose: 1,000 mg Docusate Sodium (Docusate Sodium 100 Mg Capsule) 100 mg PO BEDTIME [facility]OCENCIO Last Admin: 12/08/23 20:49 Dose: 100 mg Furosemide (Furosemide 40 Mg Tablet) 40 mg PO DAILY [facility]; Protocol Last Admin: 12/09/23 09:54 Dose: 40 mg Hydrocortisone (Hydrocortisone 1 % Cream 28.35 Gm Tube) 1 appl TOPICAL BID [facility]; Protocol Last Admin: 12/09/23 13:54 Dose: Not Given Hydroxyzine HCl (Hydroxyzine Hcl 25 Mg Tablet) 25 mg PO Q6H PRN PRN Reason: Anxiety Last Admin: 11/26/23 22:25 Dose: 25 mg Lactic Acid (Ammonium Lactate 12 % Lotion 226 Gm Bottle) 1 appl TOPICAL BID [facility]; Protocol Last Admin: 12/09/23 09:53 Dose: 1 appl Lamotrigine (Lamotrigine 25 Mg Tablet) 25 mg PO BEDTIME [facility] Last Admin: 12/08/23 20:49 Dose: 25 mg Lidocaine (Lidocaine 4 % Patch Adh..Patch) 1 patch TRANSDERMA DAILY [facility]; Protocol Last Admin: 12/09/23 10:22 Dose: Not Given Lorazepam (Lorazepam 1 Mg Tablet) 1 mg PO BEDTIME PRN PRN Reason: insomnia,anxiety,agitation Magnesium Hydroxide (Milk Of Magnesia 30 Ml Oral.Susp) 30 ml PO DAILY PRN PRN Reason: Constipation Metformin HCl (Metformin Hcl Er 500 Mg Tab.Er.24h) 500 mg PO DAILY [facility] Last Admin: 12/09/23 09:54 Dose: 500 mg Multi-Ingred Cream/Lotion/Oil/Oint (Mineral Oil/Petrolatum,White 106 Gm Tube) 1 appl TOPICAL BID [facility] Last Admin: 12/09/23 13:55 Dose: Not Given Multivitamins/Vitamin C (Multivitamin Tablet) 1 tab PO DAILY [facility] Last Admin: 12/09/23 09:54 Dose: 1 tab Nicotine (Nicotine 21 Mg Patch.Td24) 21 mg TRANSDERMA DAILY PRN PRN Reason: smoking cessation Nicotine Polacrilex (Nicotine Polacrilex 2 Mg Gum) 4 mg BUCCAL Q2H PRN PRN Reason: Nicotine Cravings Last Admin: 11/24/23 15:15 Dose: 4 mg Pt Own (Culturelle (Probiotics 1 Cap)) 1 cap PO DAILY [facility] Last Admin: 12/09/23 10:22 Dose: Not Given Nystatin (Nystatin Cream 15 Gm Tube) 1 appl TOPICAL BID [facility]; Protocol Last Admin: 12/09/23 13:55 Dose: Not Given Nystatin (Nystatin Powder 15 Gm Bottle) 1 appl TOPICAL BID [facility]; Protocol Last Admin: 12/09/23 13:55 Dose: Not Given Olanzapine (Olanzapine 5 Mg Tablet) 5 mg PO TID PRN PRN Reason: agitation Last Admin: 11/26/23 18:25 Dose: 5 mg Paliperidone Palmitate (Paliperidone Palmitate 234 Mg/1.5 Ml Syringe) 234 mg IM Q30D [facility] Last Admin: 12/08/23 16:45 Dose: 234 mg Trazodone HCl (Trazodone Hcl 50 Mg Tablet) 50 mg PO BEDTIME MRX1 PRN PRN Reason: Insomnia Last Admin: 12/03/23 01:19 Dose: 50 mg Allergies Allergies Allergy/AdvReac Type Severity Reaction Status Date / Time kiwi [KIWI] Allergy Mild HIVES Verified 11/21/23 05:49 mold [MOLD EXTRACTS*] Allergy Mild HIVES Verified 11/21/23 05:49 Assessment & Plan Assessment & Plan (1) Venous stasis: Status: Acute Code(s): I87.8 - Other specified disorders of veins Assessment and Plan: Cellulitis mimic Po Doxycycline for 10 days and topical steroids cover possible cellulitis superinfection hx of :Sepsis concerns with tachycardia and tachypnea. (not current 12/03/23) Treat venous stasis with elevation Follow with hospitalists as I do not assess this patients disposition ( am seeing on psychiatry. Check CBC unremarkable.) (2) Chronic cellulitis: Status: Acute Code(s): L03.90 - Cellulitis, unspecified (3) Schizoaffective disorder, bipolar type: Status: Acute Code(s): F25.0 - Schizoaffective disorder, bipolar type Plan 12/01/23: Continue current tx and plan 12/02/23: Continue current plan and tx Change Chlorpromazine daytime doses to prn. 12/03/23 - seems more labile with mother present - reassuring eval by hospitalist today- they are following closely with us but encouraging and supporting patient with compliance with stockings and leg elevation seem paramount 12/04/23- limited mobility did wear kenzie stockings- but won't wear slippers/shoes- difficulty raising her feet up - ongoing hypersexual content of thought/somatic preoccupation of PCOS- wanting to sign 3d 12/05/23 Patient mostly in her room limited mobility somatic preoccupations patient did sign a 3 day unrealistic expectation regarding outpatient setting 12/08/23 Change Chlorpromazine 100 mg HS to prn Decrease Valproate from 3000 mg daily to 2000 mg daily Sustenna 234 mg IM given today by team. 12/09/23 Continue to monitor for daytime sedation. Informed Consent: further education needed Reason for continued inpatient stay Substantial Risk for: rapid decompensation Time Spent With Patient Time: Total time managing care of this patient today ____ minutes.
[2023-12-09] MEDS: lamoTRIgine 25 MG TABLET PO (20:41)
[2023-12-09] MEDS: Docusate Sodium 100 MG CAPSULE PO (20:41)
[2023-12-09] MEDS: Hydrocortisone 1 % Cream 28.35 GM TUBE 1 APPL TOPICAL (20:42)
[2023-12-09] MEDS: Nystatin Cream 15 GM TUBE 1 APPL TOPICAL (20:42)
[2023-12-09] MEDS: Mineral Oil/Petrolatum,White 106 GM Tube 1 APPL TOPICAL (20:42)
[2023-12-09] MEDS: Nystatin Powder 15 GM BOTTLE 1 APPL TOPICAL (20:42)
[2023-12-09 21:00] VITALS: BP 133/63; PULSE 89; TEMP 36.7
[2023-12-09 22:03] LABS: Glucose, Whole Blood 172 mg/dL (60-115)
[2023-12-10 10:00] VITALS: BP 137/90; PULSE 99; RESP 18; TEMP 36.8; O2SAT 97
[2023-12-10] MEDS: Divalproex Sodium Sprinkles 125 MG CAP.DR.SPR 1000 MG PO ×2 (10:31→20:07)
[2023-12-10] MEDS: Ammonium Lactate 12 % Lotion 226 GM BOTTLE 1 APPL TOPICAL ×2 (10:31→20:14)
[2023-12-10] MEDS: Hydrocortisone 1 % Cream 28.35 GM TUBE 1 APPL TOPICAL ×2 (10:31→20:13)
[2023-12-10] MEDS: atenoloL 25 MG TABLET PO (10:32)
[2023-12-10] MEDS: Multivitamin TABLET 1 TAB PO (10:32)
[2023-12-10] MEDS: Apixaban 5 MG TABLET PO ×2 (10:32→20:07)
[2023-12-10] MEDS: metFORMIN HCl ER 500 MG TAB.ER.24H PO (10:32)
[2023-12-10] MEDS: Furosemide 40 MG TABLET PO (10:32)
--- NOTE | 2023-12-10 12:44 | HO.PSYCHPN ---
Subjective Subjective Date of Service: 12/10/23 Reason For Visit: manic aggressive Subjective Notes: Conditional Voluntary Interim History: Pt seen, reviewed with team. Plan of care reviewed. Review of med changes which pt is approving of. Reports she is feeling well. Mother visited, pt showered. Pt is talking today about wanting to find a relationship Much improved. Medication Compliance: Yes Side effects from medications: No Attending Groups: Intermittent Review of Systems Acute medical concerns: No Medical Review of Systems: unchanged Review of Systems Review of Systems Yes all other systems are reviewed and are negative Mental Status Exam Mental Status Exam Patient Appearance: Appropriate Patient Orientation: Person, Place, Time and Situation Level of Consciousness: Awake Patient Behavior: Appropriate and Good Eye Contact Mood Description: Expansive Affect Description: Expansive Patient Cognition Impaired: No Ability to Follow Directions: Fair Speech Pattern: Clear Memory Description: Episodic Impaired Hallucinations: None Thought Process: Intact Thought Content: positive for Tangential Judgement: Fair Diagnostics Vital Signs (24Hr): Vital Signs - 24 hr 12/09/23 21:00 12/10/23 10:00 Temperature 98.1 F 98.2 F Pulse Rate 89 99 Respiratory Rate 18 Blood Pressure 133/63 137/90 H Pulse Oximetry 97 Oxygen Delivery Method Room Air BMI result Body Mass Index 62.4 Labs 12/03/23 12:01 12/08/23 09:33 Labs: Laboratory Results - last 48 hr 12/09/23 12/09/23 09:21 21:58 POC Glucose 136 H 172 H Medications Medications Current Medications Acetaminophen (Acetaminophen 325 Mg Tablet) 650 mg PO Q6H PRN PRN Reason: Headache/Pain Mild Scale (1-3) Last Admin: 12/05/23 20:46 Dose: 650 mg Al Hydroxide/Mg Hydroxide (Magnesium Hydrox/Alum Hydrox 30 Ml Oral.Susp) 30 ml PO Q6H PRN PRN Reason: Heartburn/Nausea Last Admin: 11/29/23 22:00 Dose: 30 ml Apixaban (Apixaban 5 Mg Tablet) 5 mg PO BID [facility]OC[facility] Last Admin: 12/10/23 10:32 Dose: 5 mg Atenolol (Atenolol 25 Mg Tablet) 25 mg PO DAILY [facility]; Protocol Last Admin: 12/10/23 10:32 Dose: 25 mg Benzocaine (Throat Lozenge, Medicated Lozenge) 1 lozenge MUCOUS MEM Q2H PRN PRN Reason: Sore Throat Chlorpromazine HCl (Chlorpromazine Hcl 100 Mg Tablet) 100 mg PO BID PRN PRN Reason: brendon,psychosis Last Admin: 11/25/23 17:58 Dose: 100 mg Chlorpromazine HCl (Chlorpromazine Hcl 25 Mg Tablet) 25 mg PO BID@0900,1500 PRN PRN Reason: agitation Last Admin: 12/02/23 21:15 Dose: 25 mg Chlorpromazine HCl (Chlorpromazine Hcl 100 Mg Tablet) 100 mg PO BEDTIME PRN PRN Reason: insomnia, agitation Divalproex Sodium (Divalproex Sodium Sprinkles 125 Mg Cap.) 1,000 mg PO BID INOCENCIO Last Admin: 12/10/23 10:31 Dose: 1,000 mg Docusate Sodium (Docusate Sodium 100 Mg Capsule) 100 mg PO BEDTIME [facility] Last Admin: 12/09/23 20:41 Dose: 100 mg Furosemide (Furosemide 40 Mg Tablet) 40 mg PO DAILY [facility]; Protocol Last Admin: 12/10/23 10:32 Dose: 40 mg Hydrocortisone (Hydrocortisone 1 % Cream 28.35 Gm Tube) 1 appl TOPICAL BID [facility]; Protocol Last Admin: 12/10/23 10:31 Dose: 1 appl Hydroxyzine HCl (Hydroxyzine Hcl 25 Mg Tablet) 25 mg PO Q6H PRN PRN Reason: Anxiety Last Admin: 11/26/23 22:25 Dose: 25 mg Lactic Acid (Ammonium Lactate 12 % Lotion 226 Gm Bottle) 1 appl TOPICAL BID [facility]; Protocol Last Admin: 12/10/23 10:31 Dose: 1 appl Lamotrigine (Lamotrigine 25 Mg Tablet) 25 mg PO BEDTIME [facility] Last Admin: 12/09/23 20:41 Dose: 25 mg Lidocaine (Lidocaine 4 % Patch Adh..Patch) 1 patch TRANSDERMA DAILY [facility]; Protocol Last Admin: 12/10/23 10:32 Dose: Not Given Lorazepam (Lorazepam 1 Mg Tablet) 1 mg PO BEDTIME PRN PRN Reason: insomnia,anxiety,agitation Magnesium Hydroxide (Milk Of Magnesia 30 Ml Oral.Susp) 30 ml PO DAILY PRN PRN Reason: Constipation Metformin HCl (Metformin Hcl Er 500 Mg Tab.Er.24h) 500 mg PO DAILY [facility] Last Admin: 12/10/23 10:32 Dose: 500 mg Multi-Ingred Cream/Lotion/Oil/Oint (Mineral Oil/Petrolatum,White 106 Gm Tube) 1 appl TOPICAL BID [facility] Last Admin: 12/10/23 10:33 Dose: Not Given Multivitamins/Vitamin C (Multivitamin Tablet) 1 tab PO DAILY [facility] Last Admin: 12/10/23 10:32 Dose: 1 tab Nicotine (Nicotine 21 Mg Patch.Td24) 21 mg TRANSDERMA DAILY PRN PRN Reason: smoking cessation Nicotine Polacrilex (Nicotine Polacrilex 2 Mg Gum) 4 mg BUCCAL Q2H PRN PRN Reason: Nicotine Cravings Last Admin: 11/24/23 15:15 Dose: 4 mg Pt Own (Culturelle (Probiotics 1 Cap)) 1 cap PO DAILY [facility] Last Admin: 12/10/23 10:33 Dose: Not Given Nystatin (Nystatin Cream 15 Gm Tube) 1 appl TOPICAL BID [facility]; Protocol Last Admin: 12/10/23 10:33 Dose: Not Given Nystatin (Nystatin Powder 15 Gm Bottle) 1 appl TOPICAL BID [facility]; Protocol Last Admin: 12/10/23 10:33 Dose: Not Given Olanzapine (Olanzapine 5 Mg Tablet) 5 mg PO TID PRN PRN Reason: agitation Last Admin: 11/26/23 18:25 Dose: 5 mg Paliperidone Palmitate (Paliperidone Palmitate 234 Mg/1.5 Ml Syringe) 234 mg IM Q30D [facility] Last Admin: 12/08/23 16:45 Dose: 234 mg Trazodone HCl (Trazodone Hcl 50 Mg Tablet) 50 mg PO BEDTIME MRX1 PRN PRN Reason: Insomnia Last Admin: 12/03/23 01:19 Dose: 50 mg Allergies Allergies Allergy/AdvReac Type Severity Reaction Status Date / Time kiwi [KIWI] Allergy Mild HIVES Verified 11/21/23 05:49 mold [MOLD EXTRACTS*] Allergy Mild HIVES Verified 11/21/23 05:49 Assessment & Plan Assessment & Plan (1) Venous stasis: Status: Acute Code(s): I87.8 - Other specified disorders of veins Assessment and Plan: Cellulitis mimic Po Doxycycline for 10 days and topical steroids cover possible cellulitis superinfection hx of :Sepsis concerns with tachycardia and tachypnea. (not current 12/03/23) Treat venous stasis with elevation Follow with hospitalists as I do not assess this patients disposition ( am seeing on psychiatry. Check CBC unremarkable.) (2) Chronic cellulitis: Status: Acute Code(s): L03.90 - Cellulitis, unspecified (3) Schizoaffective disorder, bipolar type: Status: Acute Code(s): F25.0 - Schizoaffective disorder, bipolar type Plan 12/01/23: Continue current tx and plan 12/02/23: Continue current plan and tx Change Chlorpromazine daytime doses to prn. 12/03/23 - seems more labile with mother present - reassuring eval by hospitalist today- they are following closely with us but encouraging and supporting patient with compliance with stockings and leg elevation seem paramount 12/04/23- limited mobility did wear kenzie stockings- but won't wear slippers/shoes- difficulty raising her feet up - ongoing hypersexual content of thought/somatic preoccupation of PCOS- wanting to sign 3d 12/05/23 Patient mostly in her room limited mobility somatic preoccupations patient did sign a 3 day unrealistic expectation regarding outpatient setting 12/08/23 Change Chlorpromazine 100 mg HS to prn Decrease Valproate from 3000 mg daily to 2000 mg daily Sustenna 234 mg IM given today by team. 12/09/23 Continue to monitor for daytime sedation. 12/10/23 Continue tx Reason for continued inpatient stay Substantial Risk for: rapid decompensation Time Spent With Patient Time: Total time managing care of this patient today ____ minutes.
[2023-12-10] MEDS: Nystatin Powder 15 GM BOTTLE 1 APPL TOPICAL ×2 (14:49→20:14)
[2023-12-10] MEDS: Nystatin Cream 15 GM TUBE 1 APPL TOPICAL ×2 (14:49→20:13)
[2023-12-10 18:00] VITALS: BP 144/72; PULSE 89; RESP 16; TEMP 36.9; O2SAT 95
[2023-12-10] MEDS: Docusate Sodium 100 MG CAPSULE PO (20:07)
[2023-12-10] MEDS: lamoTRIgine 25 MG TABLET PO (20:07)
[2023-12-10 20:10] LABS: Glucose, Whole Blood 179 mg/dL (60-115)
[2023-12-10] MEDS: Mineral Oil/Petrolatum,White 106 GM Tube 1 APPL TOPICAL (20:13)
--- NOTE | 2023-12-11 05:54 | P.PNPSI_ITS ---
Subjective Subjective Date of Service: 12/11/23 Reason For Visit: manic aggressive Subjective Notes: Conditional Voluntary Interim History: Pt seen, reviewed with team. Plan of care reviewed. Reports she is feeling well today. Interactive with peers and in milieu. Smiling, laughing at times. It is good to feel good again. Medication Compliance: Yes Side effects from medications: No Attending Groups: Intermittent Review of Systems Acute medical concerns: No Medical Review of Systems: unchanged Review of Systems Review of Systems Yes all other systems are reviewed and are negative Mental Status Exam Mental Status Exam Patient Appearance: Appropriate Patient Orientation: Person, Place, Time and Situation Level of Consciousness: Awake Patient Behavior: Appropriate and Good Eye Contact Mood Description: Expansive Affect Description: Expansive Patient Cognition Impaired: No Ability to Follow Directions: Fair Speech Pattern: Clear Memory Description: Episodic Impaired Hallucinations: None Thought Process: Intact Thought Content: positive for Tangential Judgement: Fair Diagnostics Vital Signs (24Hr): Vital Signs - 24 hr 12/10/23 10:00 12/10/23 18:00 Temperature 98.2 F 98.4 F Pulse Rate 99 89 Respiratory Rate 18 16 Blood Pressure 137/90 H 144/72 H Pulse Oximetry 97 95 Oxygen Delivery Method Room Air Room Air BMI result Body Mass Index 62.4 Labs 12/03/23 12:01 12/08/23 09:33 Labs: Laboratory Results - last 48 hr 12/09/23 12/09/23 12/10/23 09:21 21:58 20:04 POC Glucose 136 H 172 H 179 H Medications Medications Current Medications Acetaminophen (Acetaminophen 325 Mg Tablet) 650 mg PO Q6H PRN PRN Reason: Headache/Pain Mild Scale (1-3) Last Admin: 12/05/23 20:46 Dose: 650 mg Al Hydroxide/Mg Hydroxide (Magnesium Hydrox/Alum Hydrox 30 Ml Oral.Susp) 30 ml PO Q6H PRN PRN Reason: Heartburn/Nausea Last Admin: 11/29/23 22:00 Dose: 30 ml Apixaban (Apixaban 5 Mg Tablet) 5 mg PO BID INOCENCIO Last Admin: 12/10/23 20:07 Dose: 5 mg Atenolol (Atenolol 25 Mg Tablet) 25 mg PO DAILY [facility]; Protocol Last Admin: 12/10/23 10:32 Dose: 25 mg Benzocaine (Throat Lozenge, Medicated Lozenge) 1 lozenge MUCOUS MEM Q2H PRN PRN Reason: Sore Throat Chlorpromazine HCl (Chlorpromazine Hcl 100 Mg Tablet) 100 mg PO BID PRN PRN Reason: brendon,psychosis Last Admin: 11/25/23 17:58 Dose: 100 mg Chlorpromazine HCl (Chlorpromazine Hcl 25 Mg Tablet) 25 mg PO BID@0900,1500 PRN PRN Reason: agitation Last Admin: 12/02/23 21:15 Dose: 25 mg Chlorpromazine HCl (Chlorpromazine Hcl 100 Mg Tablet) 100 mg PO BEDTIME PRN PRN Reason: insomnia, agitation Divalproex Sodium (Divalproex Sodium Sprinkles 125 Mg Cap.Spr) 1,000 mg PO BID INOCENCIO Last Admin: 12/10/23 20:07 Dose: 1,000 mg Docusate Sodium (Docusate Sodium 100 Mg Capsule) 100 mg PO BEDTIME [facility] Last Admin: 12/10/23 20:07 Dose: 100 mg Furosemide (Furosemide 40 Mg Tablet) 40 mg PO DAILY [facility]; Protocol Last Admin: 12/10/23 10:32 Dose: 40 mg Hydrocortisone (Hydrocortisone 1 % Cream 28.35 Gm Tube) 1 appl TOPICAL BID [facility]; Protocol Last Admin: 12/10/23 20:13 Dose: 1 appl Hydroxyzine HCl (Hydroxyzine Hcl 25 Mg Tablet) 25 mg PO Q6H PRN PRN Reason: Anxiety Last Admin: 11/26/23 22:25 Dose: 25 mg Lactic Acid (Ammonium Lactate 12 % Lotion 226 Gm Bottle) 1 appl TOPICAL BID [facility]; Protocol Last Admin: 12/10/23 20:14 Dose: 1 appl Lamotrigine (Lamotrigine 25 Mg Tablet) 25 mg PO BEDTIME [facility] Last Admin: 12/10/23 20:07 Dose: 25 mg Lidocaine (Lidocaine 4 % Patch Adh..Patch) 1 patch TRANSDERMA DAILY [facility]; Protocol Last Admin: 12/10/23 10:32 Dose: Not Given Lorazepam (Lorazepam 1 Mg Tablet) 1 mg PO BEDTIME PRN PRN Reason: insomnia,anxiety,agitation Magnesium Hydroxide (Milk Of Magnesia 30 Ml Oral.Susp) 30 ml PO DAILY PRN PRN Reason: Constipation Metformin HCl (Metformin Hcl Er 500 Mg Tab.Er.24h) 500 mg PO DAILY [facility] Last Admin: 12/10/23 10:32 Dose: 500 mg Multi-Ingred Cream/Lotion/Oil/Oint (Mineral Oil/Petrolatum,White 106 Gm Tube) 1 appl TOPICAL BID [facility] Last Admin: 12/10/23 20:13 Dose: 1 appl Multivitamins/Vitamin C (Multivitamin Tablet) 1 tab PO DAILY [facility] Last Admin: 12/10/23 10:32 Dose: 1 tab Nicotine (Nicotine 21 Mg Patch.Td24) 21 mg TRANSDERMA DAILY PRN PRN Reason: smoking cessation Nicotine Polacrilex (Nicotine Polacrilex 2 Mg Gum) 4 mg BUCCAL Q2H PRN PRN Reason: Nicotine Cravings Last Admin: 11/24/23 15:15 Dose: 4 mg Pt Own (Culturelle (Probiotics 1 Cap)) 1 cap PO DAILY [facility] Last Admin: 12/10/23 10:33 Dose: Not Given Nystatin (Nystatin Cream 15 Gm Tube) 1 appl TOPICAL BID [facility]; Protocol Last Admin: 12/10/23 20:13 Dose: 1 appl Nystatin (Nystatin Powder 15 Gm Bottle) 1 appl TOPICAL BID [facility]; Protocol Last Admin: 12/10/23 20:14 Dose: 1 appl Olanzapine (Olanzapine 5 Mg Tablet) 5 mg PO TID PRN PRN Reason: agitation Last Admin: 11/26/23 18:25 Dose: 5 mg Paliperidone Palmitate (Paliperidone Palmitate 234 Mg/1.5 Ml Syringe) 234 mg IM Q30D [facility] Last Admin: 12/08/23 16:45 Dose: 234 mg Trazodone HCl (Trazodone Hcl 50 Mg Tablet) 50 mg PO BEDTIME MRX1 PRN PRN Reason: Insomnia Last Admin: 12/03/23 01:19 Dose: 50 mg Allergies Allergies Allergy/AdvReac Type Severity Reaction Status Date / Time kiwi [KIWI] Allergy Mild HIVES Verified 11/21/23 05:49 mold [MOLD EXTRACTS*] Allergy Mild HIVES Verified 11/21/23 05:49 Assessment & Plan Assessment & Plan (1) Venous stasis: Status: Acute Code(s): I87.8 - Other specified disorders of veins Assessment and Plan: Cellulitis mimic Po Doxycycline for 10 days and topical steroids cover possible cellulitis superinfection hx of :Sepsis concerns with tachycardia and tachypnea. (not current 12/03/23) Treat venous stasis with elevation Follow with hospitalists as I do not assess this patients disposition ( am seeing on psychiatry. Check CBC unremarkable.) (2) Chronic cellulitis: Status: Acute Code(s): L03.90 - Cellulitis, unspecified (3) Schizoaffective disorder, bipolar type: Status: Acute Code(s): F25.0 - Schizoaffective disorder, bipolar type Plan 12/01/23: Continue current tx and plan 12/02/23: Continue current plan and tx Change Chlorpromazine daytime doses to prn. 12/03/23 - seems more labile with mother present - reassuring eval by hospitalist today- they are following closely with us but encouraging and supporting patient with compliance with stockings and leg elevation seem paramount 12/04/23- limited mobility did wear kenzie stockings- but won't wear slippers/shoes- difficulty raising her feet up - ongoing hypersexual content of thought/somatic preoccupation of PCOS- wanting to sign 3d 12/05/23 Patient mostly in her room limited mobility somatic preoccupations patient did sign a 3 day unrealistic expectation regarding outpatient setting 12/08/23 Change Chlorpromazine 100 mg HS to prn Decrease Valproate from 3000 mg daily to 2000 mg daily Sustenna 234 mg IM given today by team. 12/09/23 Continue to monitor for daytime sedation. 12/11/23 Continue treatment Reason for continued inpatient stay Substantial Risk for: rapid decompensation Time Spent With Patient Time: Total time managing care of this patient today ____ minutes.
[2023-12-11 07:47] VITALS: BP 157/91; PULSE 85; RESP 18; TEMP 36.6; O2SAT 96
[2023-12-11 08:05] LABS: Glucose, Whole Blood 129 mg/dL (60-115)
[2023-12-11] MEDS: Divalproex Sodium Sprinkles 125 MG CAP.DR.SPR 1000 MG PO ×2 (08:16→21:19)
[2023-12-11] MEDS: Apixaban 5 MG TABLET PO ×2 (08:16→21:19)
[2023-12-11] MEDS: Furosemide 40 MG TABLET PO (08:16)
[2023-12-11] MEDS: atenoloL 25 MG TABLET PO (08:17)
[2023-12-11] MEDS: Multivitamin TABLET 1 TAB PO (08:17)
[2023-12-11] MEDS: metFORMIN HCl ER 500 MG TAB.ER.24H PO (08:17)
[2023-12-11] MEDS: Hydrocortisone 1 % Cream 28.35 GM TUBE 1 APPL TOPICAL (09:29)
[2023-12-11] MEDS: Nystatin Powder 15 GM BOTTLE 1 APPL TOPICAL ×2 (09:29→21:23)
[2023-12-11] MEDS: Ammonium Lactate 12 % Lotion 226 GM BOTTLE 1 APPL TOPICAL ×2 (09:29→21:23)
[2023-12-11] MEDS: Mineral Oil/Petrolatum,White 106 GM Tube 1 APPL TOPICAL ×2 (09:29→21:23)
[2023-12-11] MEDS: Nystatin Cream 15 GM TUBE 1 APPL TOPICAL ×2 (09:29→21:23)
[2023-12-11 16:46] LABS: Glucose, Whole Blood 147 mg/dL (60-115)
[2023-12-11 16:50] VITALS: BP 157/85; PULSE 89; RESP 18; TEMP 36.6; O2SAT 99
[2023-12-11] MEDS: Docusate Sodium 100 MG CAPSULE PO (21:19)
[2023-12-11] MEDS: lamoTRIgine 25 MG TABLET PO (21:19)
[2023-12-12 06:00] VITALS: BP 148/82; PULSE 88; RESP 18; TEMP 36.2; O2SAT 99
[2023-12-12] MEDS: Furosemide 40 MG TABLET PO (08:54)
[2023-12-12] MEDS: Apixaban 5 MG TABLET PO ×2 (08:54→19:48)
[2023-12-12] MEDS: Divalproex Sodium Sprinkles 125 MG CAP.DR.SPR 1000 MG PO ×2 (08:55→19:48)
[2023-12-12] MEDS: atenoloL 25 MG TABLET PO (08:55)
[2023-12-12] MEDS: metFORMIN HCl ER 500 MG TAB.ER.24H PO (08:55)
[2023-12-12] MEDS: Multivitamin TABLET 1 TAB PO (08:55)
[2023-12-12] MEDS: Hydrocortisone 1 % Cream 28.35 GM TUBE 1 APPL TOPICAL ×2 (08:57→23:51)
[2023-12-12] MEDS: Nystatin Cream 15 GM TUBE 1 APPL TOPICAL ×2 (08:57→23:51)
[2023-12-12] MEDS: Lidocaine 4 % Patch ADH..PATCH 1 PATCH TRANSDERMA (08:58)
[2023-12-12] MEDS: Mineral Oil/Petrolatum,White 106 GM Tube 1 APPL TOPICAL ×2 (09:00→23:51)
[2023-12-12] MEDS: Nystatin Powder 15 GM BOTTLE 1 APPL TOPICAL (09:01)
[2023-12-12] MEDS: Ammonium Lactate 12 % Lotion 226 GM BOTTLE 1 APPL TOPICAL ×2 (09:06→23:51)
[2023-12-12 11:11] LABS: Glucose, Whole Blood 177 mg/dL (60-115)
[2023-12-12] MEDS: Clindamycin HCL 300 MG CAPSULE PO ×2 (11:14→23:50)
--- NOTE | 2023-12-12 14:28 | HO.PSYCHPN ---
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 Discharge planning taking this into consideration as her level of dependence is higher and in need of greater skilled services. 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 This will occur on 12/14 tentatively. Medication Compliance: Yes Side effects from medications: No Attending Groups: Intermittent Review of Systems Acute medical concerns: No Medical Review of Systems: unchanged Review of Systems Review of Systems Bacterial vaginosis-antibiotics initiated. Mental Status Exam Mental Status Exam Patient Appearance: Appropriate Patient Orientation: Person, Place, Time and Situation Level of Consciousness: Awake Patient Behavior: Appropriate and Good Eye Contact Mood Description: Expansive Affect Description: Expansive Patient Cognition Impaired: No Ability to Follow Directions: Fair Speech Pattern: Clear Memory Description: Episodic Impaired Hallucinations: None Thought Process: Intact Thought Content: positive for Tangential Judgement: Fair Diagnostics Vital Signs (24Hr): Vital Signs - 24 hr 12/11/23 16:50 12/12/23 06:00 Temperature 97.8 F 97.2 F Pulse Rate 89 88 Respiratory Rate 18 18 Blood Pressure 157/85 H 148/82 H Pulse Oximetry 99 99 Oxygen Delivery Method Room Air Room Air BMI result Body Mass Index 62.4 Labs 12/03/23 12:01 12/08/23 09:33 Labs: Laboratory Results - last 48 hr 12/10/23 12/11/23 12/11/23 20:04 07:40 16:22 POC Glucose 179 H 129 H 147 H 12/12/23 11:06 POC Glucose 177 H Medications Medications Current Medications Acetaminophen (Acetaminophen 325 Mg Tablet) 650 mg PO Q6H PRN PRN Reason: Headache/Pain Mild Scale (1-3) Last Admin: 12/05/23 20:46 Dose: 650 mg Al Hydroxide/Mg Hydroxide (Magnesium Hydrox/Alum Hydrox 30 Ml Oral.Susp) 30 ml PO Q6H PRN PRN Reason: Heartburn/Nausea Last Admin: 11/29/23 22:00 Dose: 30 ml Apixaban (Apixaban 5 Mg Tablet) 5 mg PO BID [facility] Last Admin: 12/12/23 08:54 Dose: 5 mg Atenolol (Atenolol 25 Mg Tablet) 25 mg PO DAILY [facility]; Protocol Last Admin: 12/12/23 08:55 Dose: 25 mg Benzocaine (Throat Lozenge, Medicated Lozenge) 1 lozenge MUCOUS MEM Q2H PRN PRN Reason: Sore Throat Chlorpromazine HCl (Chlorpromazine Hcl 100 Mg Tablet) 100 mg PO BID PRN PRN Reason: brendon,psychosis Last Admin: 11/25/23 17:58 Dose: 100 mg Chlorpromazine HCl (Chlorpromazine Hcl 25 Mg Tablet) 25 mg PO BID@0900,1500 PRN PRN Reason: agitation Last Admin: 12/02/23 21:15 Dose: 25 mg Chlorpromazine HCl (Chlorpromazine Hcl 100 Mg Tablet) 100 mg PO BEDTIME PRN PRN Reason: insomnia, agitation Clindamycin HCl (Clindamycin Hcl 300 Mg Capsule) 300 mg PO Q12H [facility] Last Admin: 12/12/23 11:14 Dose: 300 mg Divalproex Sodium (Divalproex Sodium Sprinkles 125 Mg Cap.DrJcSpr) 1,000 mg PO BID [facility] Last Admin: 12/12/23 08:55 Dose: 1,000 mg Docusate Sodium (Docusate Sodium 100 Mg Capsule) 100 mg PO BEDTIME [facility] Last Admin: 12/11/23 21:19 Dose: 100 mg Furosemide (Furosemide 40 Mg Tablet) 40 mg PO DAILY [facility]; Protocol Last Admin: 12/12/23 08:54 Dose: 40 mg Hydrocortisone (Hydrocortisone 1 % Cream 28.35 Gm Tube) 1 appl TOPICAL BID [facility]; Protocol Last Admin: 12/12/23 08:57 Dose: 1 appl Hydroxyzine HCl (Hydroxyzine Hcl 25 Mg Tablet) 25 mg PO Q6H PRN PRN Reason: Anxiety Last Admin: 11/26/23 22:25 Dose: 25 mg Lactic Acid (Ammonium Lactate 12 % Lotion 226 Gm Bottle) 1 appl TOPICAL BID [facility]; Protocol Last Admin: 12/12/23 09:06 Dose: 1 appl Lamotrigine (Lamotrigine 25 Mg Tablet) 25 mg PO BEDTIME [facility] Last Admin: 12/11/23 21:19 Dose: 25 mg Lidocaine (Lidocaine 4 % Patch Adh..Patch) 1 patch TRANSDERMA DAILY [facility]; Protocol Last Admin: 12/12/23 08:58 Dose: 1 patch Lorazepam (Lorazepam 1 Mg Tablet) 1 mg PO BEDTIME PRN PRN Reason: insomnia,anxiety,agitation Magnesium Hydroxide (Milk Of Magnesia 30 Ml Oral.Susp) 30 ml PO DAILY PRN PRN Reason: Constipation Metformin HCl (Metformin Hcl Er 500 Mg Tab.Er.24h) 500 mg PO DAILY [facility] Last Admin: 12/12/23 08:55 Dose: 500 mg Multi-Ingred Cream/Lotion/Oil/Oint (Mineral Oil/Petrolatum,White 106 Gm Tube) 1 appl TOPICAL BID [facility] Last Admin: 12/12/23 09:00 Dose: 1 appl Multivitamins/Vitamin C (Multivitamin Tablet) 1 tab PO DAILY [facility] Last Admin: 12/12/23 08:55 Dose: 1 tab Nicotine (Nicotine 21 Mg Patch.Td24) 21 mg TRANSDERMA DAILY PRN PRN Reason: smoking cessation Nicotine Polacrilex (Nicotine Polacrilex 2 Mg Gum) 4 mg BUCCAL Q2H PRN PRN Reason: Nicotine Cravings Last Admin: 11/24/23 15:15 Dose: 4 mg Pt Own (Culturelle (Probiotics 1 Cap)) 1 cap PO DAILY [facility] Last Admin: 12/12/23 08:56 Dose: 1 cap Nystatin (Nystatin Cream 15 Gm Tube) 1 appl TOPICAL BID [facility]; Protocol Last Admin: 12/12/23 08:57 Dose: 1 appl Nystatin (Nystatin Powder 15 Gm Bottle) 1 appl TOPICAL BID [facility]; Protocol Last Admin: 12/12/23 09:01 Dose: 1 appl Olanzapine (Olanzapine 5 Mg Tablet) 5 mg PO TID PRN PRN Reason: agitation Last Admin: 11/26/23 18:25 Dose: 5 mg Paliperidone Palmitate (Paliperidone Palmitate 234 Mg/1.5 Ml Syringe) 234 mg IM Q30D [facility] Last Admin: 12/08/23 16:45 Dose: 234 mg Trazodone HCl (Trazodone Hcl 50 Mg Tablet) 50 mg PO BEDTIME MRX1 PRN PRN Reason: Insomnia Last Admin: 12/03/23 01:19 Dose: 50 mg Allergies Allergies Allergy/AdvReac Type Severity Reaction Status Date / Time kiwi [KIWI] Allergy Mild HIVES Verified 11/21/23 05:49 mold [MOLD EXTRACTS*] Allergy Mild HIVES Verified 11/21/23 05:49 Assessment & Plan Assessment & Plan (1) Venous stasis: Status: Acute Code(s): I87.8 - Other specified disorders of veins Assessment and Plan: Cellulitis mimic Po Doxycycline for 10 days and topical steroids cover possible cellulitis superinfection hx of :Sepsis concerns with tachycardia and tachypnea. (not current 12/03/23) Treat venous stasis with elevation Follow with hospitalists as I do not assess this patients disposition ( am seeing on psychiatry. Check CBC unremarkable.) (2) Chronic cellulitis: Status: Acute Code(s): L03.90 - Cellulitis, unspecified (3) Schizoaffective disorder, bipolar type: Status: Acute Code(s): F25.0 - Schizoaffective disorder, bipolar type Plan 12/01/23: Continue current tx and plan 12/02/23: Continue current plan and tx Change Chlorpromazine daytime doses to prn. 12/03/23 - seems more labile with mother present - reassuring eval by hospitalist today- they are following closely with us but encouraging and supporting patient with compliance with stockings and leg elevation seem paramount 12/04/23- limited mobility did wear kenzie stockings- but won't wear slippers/shoes- difficulty raising her feet up - ongoing hypersexual content of thought/somatic preoccupation of PCOS- wanting to sign 3d 12/05/23 Patient mostly in her room limited mobility somatic preoccupations patient did sign a 3 day unrealistic expectation regarding outpatient setting 12/08/23 Change Chlorpromazine 100 mg HS to prn Decrease Valproate from 3000 mg daily to 2000 mg daily Sustenna 234 mg IM given today by team. 12/09/23 Continue to monitor for daytime sedation. 12/11/23 Continue treatment 12/12/23 Sx of bacterial vaginosis-antibiotic initiated. Reason for continued inpatient stay Substantial Risk for: rapid decompensation Time Spent With Patient Time: Total time managing care of this patient today ____ minutes.
[2023-12-12 17:38] LABS: Glucose, Whole Blood 128 mg/dL (60-115)
[2023-12-12 17:49] VITALS: BP 120/71; PULSE 90; RESP 18; TEMP 36.8; O2SAT 97
[2023-12-12] MEDS: lamoTRIgine 25 MG TABLET PO (19:48)
[2023-12-12] MEDS: Docusate Sodium 100 MG CAPSULE PO (19:48)
[2023-12-12 20:50] LABS: Glucose, Whole Blood 186 mg/dL (60-115)
[2023-12-13 08:00] VITALS: BP 141/79; PULSE 95; RESP 16; TEMP 36.8; O2SAT 98
[2023-12-13 08:04] LABS: Glucose, Whole Blood 112 mg/dL (60-115)
[2023-12-13] MEDS: Divalproex Sodium Sprinkles 125 MG CAP.DR.SPR 1000 MG PO ×2 (09:29→20:56)
[2023-12-13] MEDS: Apixaban 5 MG TABLET PO ×2 (09:30→20:54)
[2023-12-13] MEDS: Clindamycin HCL 300 MG CAPSULE PO ×2 (09:30→20:55)
[2023-12-13] MEDS: Furosemide 40 MG TABLET PO (09:30)
[2023-12-13] MEDS: atenoloL 25 MG TABLET PO (09:30)
[2023-12-13] MEDS: metFORMIN HCl ER 500 MG TAB.ER.24H PO (09:30)
[2023-12-13] MEDS: Ammonium Lactate 12 % Lotion 226 GM BOTTLE 1 APPL TOPICAL (11:51)
[2023-12-13] MEDS: chlorproMAZINE HCl 25 MG TABLET 50 MG PO (16:03)
--- NOTE | 2023-12-13 18:13 | HO.PSYCHPN ---
Subjective Subjective Date of Service: 12/13/23 Reason For Visit: manic aggressive Subjective Notes: Conditional Voluntary Healthcare Proxy: Yes Guardianship: No Medical Problems Affecting Mental Status: No Interim History: Pt with bacterial vaginosis, antibiotic initiated. Some breakthrough lability today-feels if she went home she will be killed by family. Labile, tearful, cheerful at times. One time dose of Chlorpromazine 50 mg ordered and daytime doses returned to 50 mg bid. UAUC ordered ADL's with assist. Medication Compliance: Yes Side effects from medications: No Attending Groups: No Review of Systems Acute medical concerns: No Medical Review of Systems: unchanged Review of Systems Review of Systems Bacterial Vaginosis Mental Status Exam Mental Status Exam Patient Appearance: Appropriate Patient Orientation: Person, Place, Time and Situation Level of Consciousness: Awake Patient Behavior: Appropriate and Good Eye Contact Mood Description: Labile and Expansive Affect Description: Labile and Expansive Patient Cognition Impaired: No Ability to Follow Directions: Fair Speech Pattern: Clear Memory Description: Episodic Impaired Hallucinations: None Thought Process: Intact Thought Content: positive for Tangential Judgement: Fair Diagnostics Vital Signs (24Hr): Vital Signs - 24 hr 12/13/23 08:00 Temperature 98.2 F Pulse Rate 95 Respiratory Rate 16 Blood Pressure 141/79 H Pulse Oximetry 98 Oxygen Delivery Method Room Air BMI result Body Mass Index 62.4 Labs 12/03/23 12:01 12/08/23 09:33 Labs: Laboratory Results - last 48 hr 12/12/23 12/12/23 12/12/23 11:06 16:56 20:47 POC Glucose 177 H 128 H 186 H 12/13/23 07:59 POC Glucose 112 Medications Medications Current Medications Acetaminophen (Acetaminophen 325 Mg Tablet) 650 mg PO Q6H PRN PRN Reason: Headache/Pain Mild Scale (1-3) Last Admin: 12/05/23 20:46 Dose: 650 mg Al Hydroxide/Mg Hydroxide (Magnesium Hydrox/Alum Hydrox 30 Ml Oral.Susp) 30 ml PO Q6H PRN PRN Reason: Heartburn/Nausea Last Admin: 11/29/23 22:00 Dose: 30 ml Apixaban (Apixaban 5 Mg Tablet) 5 mg PO BID [facility] Last Admin: 12/13/23 09:30 Dose: 5 mg Atenolol (Atenolol 25 Mg Tablet) 25 mg PO DAILY [facility]; Protocol Last Admin: 12/13/23 09:30 Dose: 25 mg Benzocaine (Throat Lozenge, Medicated Lozenge) 1 lozenge MUCOUS MEM Q2H PRN PRN Reason: Sore Throat Chlorpromazine HCl (Chlorpromazine Hcl 100 Mg Tablet) 100 mg PO BID PRN PRN Reason: brendon,psychosis Last Admin: 11/25/23 17:58 Dose: 100 mg Chlorpromazine HCl (Chlorpromazine Hcl 100 Mg Tablet) 100 mg PO BEDTIME PRN PRN Reason: insomnia, agitation Chlorpromazine HCl (Chlorpromazine Hcl 25 Mg Tablet) 50 mg PO BID@0900,1500 PRN PRN Reason: agitation Clindamycin HCl (Clindamycin Hcl 300 Mg Capsule) 300 mg PO Q12H [facility] Last Admin: 12/13/23 09:30 Dose: 300 mg Divalproex Sodium (Divalproex Sodium Sprinkles 125 Mg Cap.DrJcSpr) 1,000 mg PO BID [facility] Last Admin: 12/13/23 09:29 Dose: 1,000 mg Docusate Sodium (Docusate Sodium 100 Mg Capsule) 100 mg PO BEDTIME [facility] Last Admin: 12/12/23 19:48 Dose: 100 mg Furosemide (Furosemide 40 Mg Tablet) 40 mg PO DAILY [facility]; Protocol Last Admin: 12/13/23 09:30 Dose: 40 mg Hydroxyzine HCl (Hydroxyzine Hcl 25 Mg Tablet) 25 mg PO Q6H PRN PRN Reason: Anxiety Last Admin: 11/26/23 22:25 Dose: 25 mg Lactic Acid (Ammonium Lactate 12 % Lotion 226 Gm Bottle) 1 appl TOPICAL BID [facility]; Protocol Last Admin: 12/13/23 11:51 Dose: 1 appl Lamotrigine (Lamotrigine 25 Mg Tablet) 25 mg PO BEDTIME [facility] Last Admin: 12/12/23 19:48 Dose: 25 mg Lidocaine (Lidocaine 4 % Patch Adh..Patch) 1 patch TRANSDERMA DAILY [facility]; Protocol Last Admin: 12/13/23 12:05 Dose: Not Given Lorazepam (Lorazepam 1 Mg Tablet) 1 mg PO BEDTIME PRN PRN Reason: insomnia,anxiety,agitation Magnesium Hydroxide (Milk Of Magnesia 30 Ml Oral.Susp) 30 ml PO DAILY PRN PRN Reason: Constipation Metformin HCl (Metformin Hcl Er 500 Mg Tab.Er.24h) 500 mg PO DAILY [facility] Last Admin: 12/13/23 09:30 Dose: 500 mg Multi-Ingred Cream/Lotion/Oil/Oint (Mineral Oil/Petrolatum,White 106 Gm Tube) 1 appl TOPICAL BID [facility] Last Admin: 12/13/23 12:09 Dose: Not Given Multivitamins/Vitamin C (Multivitamin Tablet) 1 tab PO DAILY [facility] Last Admin: 12/13/23 09:34 Dose: Not Given Nicotine (Nicotine 21 Mg Patch.Td24) 21 mg TRANSDERMA DAILY PRN PRN Reason: smoking cessation Nicotine Polacrilex (Nicotine Polacrilex 2 Mg Gum) 4 mg BUCCAL Q2H PRN PRN Reason: Nicotine Cravings Last Admin: 11/24/23 15:15 Dose: 4 mg Pt Own (Culturelle (Probiotics 1 Cap)) 1 cap PO DAILY [facility] Last Admin: 12/13/23 09:31 Dose: Not Given Nystatin (Nystatin Powder 15 Gm Bottle) 1 appl TOPICAL BID [facility]; Protocol Last Admin: 12/13/23 12:09 Dose: Not Given Olanzapine (Olanzapine 5 Mg Tablet) 5 mg PO TID PRN PRN Reason: agitation Last Admin: 11/26/23 18:25 Dose: 5 mg Paliperidone Palmitate (Paliperidone Palmitate 234 Mg/1.5 Ml Syringe) 234 mg IM Q30D [facility] Last Admin: 12/08/23 16:45 Dose: 234 mg Trazodone HCl (Trazodone Hcl 50 Mg Tablet) 50 mg PO BEDTIME MRX1 PRN PRN Reason: Insomnia Last Admin: 12/03/23 01:19 Dose: 50 mg Allergies Allergies Allergy/AdvReac Type Severity Reaction Status Date / Time kiwi [KIWI] Allergy Mild HIVES Verified 11/21/23 05:49 mold [MOLD EXTRACTS*] Allergy Mild HIVES Verified 11/21/23 05:49 Assessment & Plan Assessment & Plan (1) Venous stasis: Status: Acute Code(s): I87.8 - Other specified disorders of veins Assessment and Plan: Cellulitis mimic Po Doxycycline for 10 days and topical steroids cover possible cellulitis superinfection hx of :Sepsis concerns with tachycardia and tachypnea. (not current 12/03/23) Treat venous stasis with elevation Follow with hospitalists as I do not assess this patients disposition ( am seeing on psychiatry. Check CBC unremarkable.) (2) Chronic cellulitis: Status: Acute Code(s): L03.90 - Cellulitis, unspecified (3) Schizoaffective disorder, bipolar type: Status: Acute Code(s): F25.0 - Schizoaffective disorder, bipolar type Plan 12/01/23: Continue current tx and plan 12/02/23: Continue current plan and tx Change Chlorpromazine daytime doses to prn. 12/03/23 - seems more labile with mother present - reassuring eval by hospitalist today- they are following closely with us but encouraging and supporting patient with compliance with stockings and leg elevation seem paramount 12/04/23- limited mobility did wear kenzie stockings- but won't wear slippers/shoes- difficulty raising her feet up - ongoing hypersexual content of thought/somatic preoccupation of PCOS- wanting to sign 3d 12/05/23 Patient mostly in her room limited mobility somatic preoccupations patient did sign a 3 day unrealistic expectation regarding outpatient setting 12/08/23 Change Chlorpromazine 100 mg HS to prn Decrease Valproate from 3000 mg daily to 2000 mg daily Sustenna 234 mg IM given today by team. 12/09/23 Continue to monitor for daytime sedation. 12/11/23 Continue treatment 12/12/23 Sx of bacterial vaginosis-antibiotic initiated. 12/13/23 Chlorpromazine 50 mg x 1 Chlorpromazine 50 mg bid re-started UA,UC Informed Consent: further education needed Reason for continued inpatient stay Substantial Risk for: rapid decompensation and med/psych decompensation Time Spent With Patient Time: Total time managing care of this patient today ____ minutes.
[2023-12-13 20:39] VITALS: BP 127/68; PULSE 90; RESP 18; TEMP 36.6; O2SAT 95
[2023-12-13] MEDS: traZODone HCL 50 MG TABLET PO (20:55)
[2023-12-13] MEDS: Docusate Sodium 100 MG CAPSULE PO (20:55)
[2023-12-13] MEDS: lamoTRIgine 25 MG TABLET PO (20:55)
[2023-12-13 22:13] LABS: Glucose, Whole Blood 159 mg/dL (60-115)
[2023-12-14 09:50] VITALS: BP 146/73; PULSE 92; RESP 18; TEMP 36.4; O2SAT 98
[2023-12-14] MEDS: metFORMIN HCl ER 500 MG TAB.ER.24H PO (09:50)
[2023-12-14] MEDS: Furosemide 40 MG TABLET PO (09:50)
[2023-12-14] MEDS: Apixaban 5 MG TABLET PO ×2 (09:50→19:44)
[2023-12-14] MEDS: atenoloL 25 MG TABLET PO (09:50)
[2023-12-14] MEDS: Divalproex Sodium Sprinkles 125 MG CAP.DR.SPR 1000 MG PO (09:50)
[2023-12-14] MEDS: Nystatin Powder 15 GM BOTTLE 1 APPL TOPICAL ×2 (09:51→20:02)
[2023-12-14] MEDS: Multivitamin TABLET 1 TAB PO (09:51)
--- NOTE | 2023-12-14 10:25 | P.PNPSI_ITS ---
Subjective Subjective Date of Service: 12/14/23 Reason For Visit: manic aggressive Subjective Notes: Conditional Voluntary Healthcare Proxy: Yes Guardianship: No Medical Problems Affecting Mental Status: No Interim History: Remains labile Depakote increase to 1250 mg bid Visited by mother, [facility] team Zoom meeting with team, father today. 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 It is unclear if pt absorbed this reality, although she repeated it a few times during the meeting and independently informed me later in the day that her father closed the cafe. Medication Compliance: Yes Side effects from medications: No Attending Groups: No Review of Systems Acute medical concerns: No Medical Review of Systems: unchanged Review of Systems Review of Systems Improved sx of bacterial vaginosis Mental Status Exam Mental Status Exam Patient Appearance: Appropriate Patient Orientation: Person, Place, Time and Situation Level of Consciousness: Awake Patient Behavior: Appropriate and Good Eye Contact Mood Description: Labile and Expansive Affect Description: Labile and Expansive Patient Cognition Impaired: No Ability to Follow Directions: Fair Speech Pattern: Clear Memory Description: Episodic Impaired Hallucinations: None Thought Process: Intact Thought Content: positive for Tangential Judgement: Fair Diagnostics Vital Signs (24Hr): Vital Signs - 24 hr 12/13/23 20:39 12/14/23 09:50 Temperature 97.9 F 97.6 F Pulse Rate 90 92 Respiratory Rate 18 18 Blood Pressure 127/68 146/73 H Pulse Oximetry 95 98 Oxygen Delivery Method Room Air Room Air BMI result Body Mass Index 62.4 Labs 12/03/23 12:01 12/08/23 09:33 Labs: Laboratory Results - last 48 hr 12/12/23 12/12/23 12/12/23 11:06 16:56 20:47 POC Glucose 177 H 128 H 186 H 12/13/23 12/13/23 07:59 22:07 POC Glucose 112 159 H Medications Medications Current Medications Acetaminophen (Acetaminophen 325 Mg Tablet) 650 mg PO Q6H PRN PRN Reason: Headache/Pain Mild Scale (1-3) Last Admin: 12/05/23 20:46 Dose: 650 mg Al Hydroxide/Mg Hydroxide (Magnesium Hydrox/Alum Hydrox 30 Ml Oral.Susp) 30 ml PO Q6H PRN PRN Reason: Heartburn/Nausea Last Admin: 11/29/23 22:00 Dose: 30 ml Apixaban (Apixaban 5 Mg Tablet) 5 mg PO BID [facility] Last Admin: 12/14/23 09:50 Dose: 5 mg Atenolol (Atenolol 25 Mg Tablet) 25 mg PO DAILY [facility]; Protocol Last Admin: 12/14/23 09:50 Dose: 25 mg Benzocaine (Throat Lozenge, Medicated Lozenge) 1 lozenge MUCOUS MEM Q2H PRN PRN Reason: Sore Throat Chlorpromazine HCl (Chlorpromazine Hcl 100 Mg Tablet) 100 mg PO BID PRN PRN Reason: brendon,psychosis Last Admin: 11/25/23 17:58 Dose: 100 mg Chlorpromazine HCl (Chlorpromazine Hcl 100 Mg Tablet) 100 mg PO BEDTIME PRN PRN Reason: insomnia, agitation Chlorpromazine HCl (Chlorpromazine Hcl 25 Mg Tablet) 50 mg PO BID@0900,1500 PRN PRN Reason: agitation Clindamycin HCl (Clindamycin Hcl 300 Mg Capsule) 300 mg PO Q12H [facility] Last Admin: 12/13/23 20:55 Dose: 300 mg Divalproex Sodium (Divalproex Sodium Sprinkles 125 Mg Cap.DrJcSpr) 1,000 mg PO BID [facility] Last Admin: 12/14/23 09:50 Dose: 1,000 mg Docusate Sodium (Docusate Sodium 100 Mg Capsule) 100 mg PO BEDTIME [facility] Last Admin: 12/13/23 20:55 Dose: 100 mg Furosemide (Furosemide 40 Mg Tablet) 40 mg PO DAILY [facility]; Protocol Last Admin: 12/14/23 09:50 Dose: 40 mg Hydroxyzine HCl (Hydroxyzine Hcl 25 Mg Tablet) 25 mg PO Q6H PRN PRN Reason: Anxiety Last Admin: 11/26/23 22:25 Dose: 25 mg Lactic Acid (Ammonium Lactate 12 % Lotion 226 Gm Bottle) 1 appl TOPICAL BID [facility]; Protocol Last Admin: 12/14/23 09:31 Dose: Not Given Lamotrigine (Lamotrigine 25 Mg Tablet) 25 mg PO BEDTIME [facility] Last Admin: 12/13/23 20:55 Dose: 25 mg Lidocaine (Lidocaine 4 % Patch Adh..Patch) 1 patch TRANSDERMA DAILY [facility]; Protocol Last Admin: 12/14/23 09:31 Dose: Not Given Lorazepam (Lorazepam 1 Mg Tablet) 1 mg PO BEDTIME PRN PRN Reason: insomnia,anxiety,agitation Magnesium Hydroxide (Milk Of Magnesia 30 Ml Oral.Susp) 30 ml PO DAILY PRN PRN Reason: Constipation Metformin HCl (Metformin Hcl Er 500 Mg Tab.Er.24h) 500 mg PO DAILY [facility] Last Admin: 12/14/23 09:50 Dose: 500 mg Multi-Ingred Cream/Lotion/Oil/Oint (Mineral Oil/Petrolatum,White 106 Gm Tube) 1 appl TOPICAL BID [facility] Last Admin: 12/14/23 09:51 Dose: Not Given Multivitamins/Vitamin C (Multivitamin Tablet) 1 tab PO DAILY [facility] Last Admin: 12/14/23 09:51 Dose: 1 tab Nicotine (Nicotine 21 Mg Patch.Td24) 21 mg TRANSDERMA DAILY PRN PRN Reason: smoking cessation Nicotine Polacrilex (Nicotine Polacrilex 2 Mg Gum) 4 mg BUCCAL Q2H PRN PRN Reason: Nicotine Cravings Last Admin: 11/24/23 15:15 Dose: 4 mg Pt Own (Culturelle (Probiotics 1 Cap)) 1 cap PO DAILY [facility] Last Admin: 12/14/23 09:51 Dose: Not Given Nystatin (Nystatin Powder 15 Gm Bottle) 1 appl TOPICAL BID [facility]; Protocol Last Admin: 12/14/23 09:51 Dose: 1 appl Olanzapine (Olanzapine 5 Mg Tablet) 5 mg PO TID PRN PRN Reason: agitation Last Admin: 11/26/23 18:25 Dose: 5 mg Paliperidone Palmitate (Paliperidone Palmitate 234 Mg/1.5 Ml Syringe) 234 mg IM Q30D [facility] Last Admin: 12/08/23 16:45 Dose: 234 mg Trazodone HCl (Trazodone Hcl 50 Mg Tablet) 50 mg PO BEDTIME MRX1 PRN PRN Reason: Insomnia Last Admin: 12/13/23 20:55 Dose: 50 mg Allergies Allergies Allergy/AdvReac Type Severity Reaction Status Date / Time kiwi [KIWI] Allergy Mild HIVES Verified 11/21/23 05:49 mold [MOLD EXTRACTS*] Allergy Mild HIVES Verified 11/21/23 05:49 Assessment & Plan Assessment & Plan (1) Venous stasis: Status: Acute Code(s): I87.8 - Other specified disorders of veins Assessment and Plan: Cellulitis mimic Po Doxycycline for 10 days and topical steroids cover possible cellulitis superinfection hx of :Sepsis concerns with tachycardia and tachypnea. (not current 12/03/23) Treat venous stasis with elevation Follow with hospitalists as I do not assess this patients disposition ( am seeing on psychiatry. Check CBC unremarkable.) (2) Chronic cellulitis: Status: Acute Code(s): L03.90 - Cellulitis, unspecified (3) Schizoaffective disorder, bipolar type: Status: Acute Code(s): F25.0 - Schizoaffective disorder, bipolar type Plan 12/01/23: Continue current tx and plan 12/02/23: Continue current plan and tx Change Chlorpromazine daytime doses to prn. 12/03/23 - seems more labile with mother present - reassuring eval by hospitalist today- they are following closely with us but encouraging and supporting patient with compliance with stockings and leg elevation seem paramount 12/04/23- limited mobility did wear kenzie stockings- but won't wear slippers/shoes- difficulty raising her feet up - ongoing hypersexual content of thought/somatic preoccupation of PCOS- wanting to sign 3d 12/05/23 Patient mostly in her room limited mobility somatic preoccupations patient did sign a 3 day unrealistic expectation regarding outpatient setting 12/08/23 Change Chlorpromazine 100 mg HS to prn Decrease Valproate from 3000 mg daily to 2000 mg daily Sustenna 234 mg IM given today by team. 12/09/23 Continue to monitor for daytime sedation. 12/11/23 Continue treatment 12/12/23 Sx of bacterial vaginosis-antibiotic initiated. 12/14/23: Labs ordered for the a.m. Increase Depakote to 1250 mg bid Informed Consent: further education needed Reason for continued inpatient stay Substantial Risk for: rapid decompensation Time Spent With Patient Time: Total time managing care of this patient today ____ minutes.
[2023-12-14] MEDS: Clindamycin HCL 300 MG CAPSULE PO ×2 (10:27→22:34)
[2023-12-14] MEDS: Ammonium Lactate 12 % Lotion 226 GM BOTTLE 1 APPL TOPICAL ×2 (10:27→20:01)
[2023-12-14 16:57] LABS: Glucose, Whole Blood 160 mg/dL (60-115)
[2023-12-14 17:15] VITALS: BP 135/80; PULSE 88; RESP 16; TEMP 36.8; O2SAT 99
[2023-12-14] MEDS: Divalproex Sodium Sprinkles 125 MG CAP.DR.SPR 1250 MG PO (19:43)
[2023-12-14] MEDS: traZODone HCL 50 MG TABLET PO (19:43)
[2023-12-14] MEDS: lamoTRIgine 25 MG TABLET PO (19:44)
[2023-12-14] MEDS: Docusate Sodium 100 MG CAPSULE PO (19:44)
[2023-12-14] MEDS: LORazepam 1 MG TABLET PO (19:47)
[2023-12-14] MEDS: Mineral Oil/Petrolatum,White 106 GM Tube 1 APPL TOPICAL (20:01)
[2023-12-14 22:43] LABS: Glucose, Whole Blood 175 mg/dL (60-115)
[2023-12-15] MEDS: chlorproMAZINE HCl 100 MG TABLET PO (01:23)
[2023-12-15 06:00] VITALS: BP 137/85; PULSE 120; RESP 20; O2SAT 98
[2023-12-15] MEDS: metFORMIN HCl ER 500 MG TAB.ER.24H PO (09:18)
[2023-12-15] MEDS: Furosemide 40 MG TABLET PO (09:18)
[2023-12-15] MEDS: Multivitamin TABLET 1 TAB PO (09:18)
[2023-12-15] MEDS: Apixaban 5 MG TABLET PO ×2 (09:18→22:22)
[2023-12-15] MEDS: atenoloL 25 MG TABLET PO (09:18)
[2023-12-15] MEDS: Divalproex Sodium Sprinkles 125 MG CAP.DR.SPR 1250 MG PO ×2 (09:18→22:22)
[2023-12-15] MEDS: Ammonium Lactate 12 % Lotion 226 GM BOTTLE 1 APPL TOPICAL ×2 (09:21→23:38)
[2023-12-15] MEDS: Mineral Oil/Petrolatum,White 106 GM Tube 1 APPL TOPICAL ×2 (09:21→23:39)
[2023-12-15] MEDS: Lidocaine 4 % Patch ADH..PATCH 1 PATCH TRANSDERMA (09:22)
[2023-12-15] MEDS: Clindamycin HCL 300 MG CAPSULE PO ×2 (09:23→22:21)
[2023-12-15] MEDS: Nystatin Powder 15 GM BOTTLE 1 APPL TOPICAL ×2 (09:24→23:39)
[2023-12-15 11:00] LABS: Glucose, Whole Blood 149 mg/dL (60-115)
[2023-12-15 18:00] VITALS: BP 159/74; PULSE 88; RESP 18; TEMP 36.9; O2SAT 98
--- NOTE | 2023-12-15 18:09 | P.PNPSI_ITS ---
Subjective Subjective Date of Service: 12/15/23 Reason For Visit: manic aggressive Subjective Notes: Conditional Voluntary Healthcare Proxy: Yes Guardianship: No Medical Problems Affecting Mental Status: No Interim History: Patient somewhat labile at times quite preoccupied that she is dying from multiple condition quite adamant that her parents are that she is attacked harm by others on the unit at other times can be more reality based talking about being told that cafes permanently closed. Medication Compliance: Yes Side effects from medications: No Attending Groups: No Review of Systems Acute medical concerns: No Medical Review of Systems: unchanged Mental Status Exam Mental Status Exam Patient Appearance: Appropriate Patient Orientation: Person, Place, Time and Situation Level of Consciousness: Awake Patient Behavior: Appropriate, Distractible and Good Eye Contact Mood Description: Labile and Expansive Affect Description: Suspicious, Labile, Apprehensive and Expansive Patient Cognition Impaired: No Ability to Follow Directions: Fair Speech Pattern: Clear Memory Description: Episodic Impaired Hallucinations: None Thought Process: Intact Thought Content: positive for Tangential Judgement: Fair Judgement and Insight: Intrusive somatic delusions that she is dying multiple preoccupations needs much reassurance intrusive paranoid delusional concerns that her parents are work on the unit cut her throat needs redirection to have reality based conversation Diagnostics Vital Signs (24Hr): Vital Signs - 24 hr 12/15/23 06:00 Pulse Rate 120 H Respiratory Rate 20 Blood Pressure 137/85 Pulse Oximetry 98 Oxygen Delivery Method Room Air BMI result Body Mass Index 62.4 Labs 12/03/23 12:01 12/08/23 09:33 Labs: Laboratory Results - last 48 hr 12/13/23 12/14/23 12/14/23 22:07 16:53 22:20 POC Glucose 159 H 160 H 175 H 12/15/23 10:54 POC Glucose 149 H Medications Medications Current Medications Acetaminophen (Acetaminophen 325 Mg Tablet) 650 mg PO Q6H PRN PRN Reason: Headache/Pain Mild Scale (1-3) Last Admin: 12/05/23 20:46 Dose: 650 mg Al Hydroxide/Mg Hydroxide (Magnesium Hydrox/Alum Hydrox 30 Ml Oral.Susp) 30 ml PO Q6H PRN PRN Reason: Heartburn/Nausea Last Admin: 11/29/23 22:00 Dose: 30 ml Apixaban (Apixaban 5 Mg Tablet) 5 mg PO BID [facility] Last Admin: 12/15/23 09:18 Dose: 5 mg Atenolol (Atenolol 25 Mg Tablet) 25 mg PO DAILY [facility]; Protocol Last Admin: 12/15/23 09:18 Dose: 25 mg Benzocaine (Throat Lozenge, Medicated Lozenge) 1 lozenge MUCOUS MEM Q2H PRN PRN Reason: Sore Throat Chlorpromazine HCl (Chlorpromazine Hcl 100 Mg Tablet) 100 mg PO BID PRN PRN Reason: brendon,psychosis Last Admin: 12/15/23 01:23 Dose: 100 mg Chlorpromazine HCl (Chlorpromazine Hcl 100 Mg Tablet) 100 mg PO BEDTIME PRN PRN Reason: insomnia, agitation Chlorpromazine HCl (Chlorpromazine Hcl 25 Mg Tablet) 50 mg PO BID@0900,1500 PRN PRN Reason: agitation Clindamycin HCl (Clindamycin Hcl 300 Mg Capsule) 300 mg PO Q12H [facility] Last Admin: 12/15/23 09:23 Dose: 300 mg Divalproex Sodium (Divalproex Sodium Sprinkles 125 Mg Cap.Dr.Spr) 1,250 mg PO BID [facility] Last Admin: 12/15/23 09:18 Dose: 1,250 mg Docusate Sodium (Docusate Sodium 100 Mg Capsule) 100 mg PO BEDTIME [facility] Last Admin: 12/14/23 19:44 Dose: 100 mg Furosemide (Furosemide 40 Mg Tablet) 40 mg PO DAILY [facility]; Protocol Last Admin: 12/15/23 09:18 Dose: 40 mg Hydroxyzine HCl (Hydroxyzine Hcl 25 Mg Tablet) 25 mg PO Q6H PRN PRN Reason: Anxiety Last Admin: 11/26/23 22:25 Dose: 25 mg Lactic Acid (Ammonium Lactate 12 % Lotion 226 Gm Bottle) 1 appl TOPICAL BID [facility]; Protocol Last Admin: 12/15/23 09:21 Dose: 1 appl Lamotrigine (Lamotrigine 25 Mg Tablet) 25 mg PO BEDTIME [facility] Last Admin: 12/14/23 19:44 Dose: 25 mg Lidocaine (Lidocaine 4 % Patch Adh..Patch) 1 patch TRANSDERMA DAILY [facility]; Protocol Last Admin: 12/15/23 09:22 Dose: 1 patch Lorazepam (Lorazepam 1 Mg Tablet) 1 mg PO BEDTIME PRN PRN Reason: insomnia,anxiety,agitation Last Admin: 12/14/23 19:47 Dose: 1 mg Magnesium Hydroxide (Milk Of Magnesia 30 Ml Oral.Susp) 30 ml PO DAILY PRN PRN Reason: Constipation Metformin HCl (Metformin Hcl Er 500 Mg Tab.Er.24h) 500 mg PO DAILY [facility] Last Admin: 12/15/23 09:18 Dose: 500 mg Multi-Ingred Cream/Lotion/Oil/Oint (Mineral Oil/Petrolatum,White 106 Gm Tube) 1 appl TOPICAL BID [facility] Last Admin: 12/15/23 09:21 Dose: 1 appl Multivitamins/Vitamin C (Multivitamin Tablet) 1 tab PO DAILY [facility] Last Admin: 12/15/23 09:18 Dose: 1 tab Nicotine (Nicotine 21 Mg Patch.Td24) 21 mg TRANSDERMA DAILY PRN PRN Reason: smoking cessation Nicotine Polacrilex (Nicotine Polacrilex 2 Mg Gum) 4 mg BUCCAL Q2H PRN PRN Reason: Nicotine Cravings Last Admin: 11/24/23 15:15 Dose: 4 mg Pt Own (Culturelle (Probiotics 1 Cap)) 1 cap PO DAILY [facility] Last Admin: 12/15/23 09:20 Dose: 1 cap Nystatin (Nystatin Powder 15 Gm Bottle) 1 appl TOPICAL BID [facility]; Protocol Last Admin: 12/15/23 09:24 Dose: 1 appl Olanzapine (Olanzapine 5 Mg Tablet) 5 mg PO TID PRN PRN Reason: agitation Last Admin: 11/26/23 18:25 Dose: 5 mg Paliperidone Palmitate (Paliperidone Palmitate 234 Mg/1.5 Ml Syringe) 234 mg IM Q30D [facility] Last Admin: 12/08/23 16:45 Dose: 234 mg Trazodone HCl (Trazodone Hcl 50 Mg Tablet) 50 mg PO BEDTIME MRX1 PRN PRN Reason: Insomnia Last Admin: 12/14/23 19:43 Dose: 50 mg Allergies Allergies Allergy/AdvReac Type Severity Reaction Status Date / Time kiwi [KIWI] Allergy Mild HIVES Verified 11/21/23 05:49 mold [MOLD EXTRACTS*] Allergy Mild HIVES Verified 11/21/23 05:49 Assessment & Plan Assessment & Plan (1) Schizoaffective disorder, bipolar type: Status: Acute Code(s): F25.0 - Schizoaffective disorder, bipolar type (2) Venous stasis: Status: Acute Code(s): I87.8 - Other specified disorders of veins Assessment and Plan: Cellulitis mimic Po Doxycycline for 10 days and topical steroids cover possible cellulitis superinfection hx of :Sepsis concerns with tachycardia and tachypnea. (not current 12/03/23) Treat venous stasis with elevation Follow with hospitalists as I do not assess this patients disposition ( am seeing on psychiatry. Check CBC unremarkable.) (3) Chronic cellulitis: Status: Acute Code(s): L03.90 - Cellulitis, unspecified Plan 12/01/23: Continue current tx and plan 12/02/23: Continue current plan and tx Change Chlorpromazine daytime doses to prn. 12/03/23 - seems more labile with mother present - reassuring eval by hospitalist today- they are following closely with us but encouraging and supporting patient with compliance with stockings and leg elevation seem paramount 12/04/23- limited mobility did wear kenzie stockings- but won't wear slippers/shoes- difficulty raising her feet up - ongoing hypersexual content of thought/somatic preoccupation of PCOS- wanting to sign 3d 12/05/23 Patient mostly in her room limited mobility somatic preoccupations patient did sign a 3 day unrealistic expectation regarding outpatient setting 12/08/23 Change Chlorpromazine 100 mg HS to prn Decrease Valproate from 3000 mg daily to 2000 mg daily Sustenna 234 mg IM given today by team. 12/09/23 Continue to monitor for daytime sedation. 12/11/23 Continue treatment 12/12/23 Sx of bacterial vaginosis-antibiotic initiated. 12/14/23: Labs ordered for the a.m. 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 Patient labile episodes of being expansive overwhelmed anxiety times somatic paranoid delusional material did receive Invega injection 1 week ago should be a therapeutic dose unfortunately has. 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
[2023-12-15] MEDS: traZODone HCL 50 MG TABLET PO (22:21)
[2023-12-15] MEDS: lamoTRIgine 25 MG TABLET PO (22:21)
[2023-12-15] MEDS: Docusate Sodium 100 MG CAPSULE PO (22:21)
[2023-12-15 22:22] LABS: Glucose, Whole Blood 152 mg/dL (60-115)
[2023-12-15] MEDS: LORazepam 1 MG TABLET PO (22:25)
[2023-12-16 08:19] VITALS: BP 133/64; PULSE 91; RESP 18; TEMP 36.4; O2SAT 96
[2023-12-16] MEDS: Divalproex Sodium Sprinkles 125 MG CAP.DR.SPR 1250 MG PO ×2 (08:28→21:32)
[2023-12-16] MEDS: Apixaban 5 MG TABLET PO ×2 (08:28→21:33)
[2023-12-16] MEDS: Furosemide 40 MG TABLET PO (08:28)
[2023-12-16] MEDS: atenoloL 25 MG TABLET PO (08:29)
[2023-12-16] MEDS: metFORMIN HCl ER 500 MG TAB.ER.24H PO (08:29)
[2023-12-16] MEDS: Multivitamin TABLET 1 TAB PO (08:30)
[2023-12-16 08:32] LABS: Glucose, Whole Blood 122 mg/dL (60-115)
[2023-12-16] MEDS: Ammonium Lactate 12 % Lotion 226 GM BOTTLE 1 APPL TOPICAL ×2 (10:24→21:38)
[2023-12-16] MEDS: Nystatin Powder 15 GM BOTTLE 1 APPL TOPICAL ×2 (10:24→21:39)
[2023-12-16] MEDS: Clindamycin HCL 300 MG CAPSULE PO ×2 (11:31→21:49)
[2023-12-16 18:40] VITALS: BP 154/88; PULSE 88; RESP 16; TEMP 36.6; O2SAT 98
[2023-12-16] MEDS: chlorproMAZINE HCl 100 MG TABLET PO (21:33)
[2023-12-16] MEDS: Docusate Sodium 100 MG CAPSULE PO (21:33)
[2023-12-16] MEDS: lamoTRIgine 25 MG TABLET PO (21:33)
[2023-12-16] MEDS: Mineral Oil/Petrolatum,White 106 GM Tube 1 APPL TOPICAL (21:48)
[2023-12-16 22:05] LABS: Glucose, Whole Blood 134 mg/dL (60-115)
--- NOTE | 2023-12-16 23:23 | P.PNPSI_ITS ---
Subjective Subjective Date of Service: 12/16/23 Reason For Visit: manic aggressive Subjective Notes: Conditional Voluntary Healthcare Proxy: Yes Interim History: Patient did not allow Depakote level Chem profile lays she is disorganized euphoric labile at times reality based conversations at other times flight of ideas with either grandiose themes or paranoid bizarre concerns. She has been more ambulatory and out of her room more not overly stated Mental Status Exam Mental Status Exam Patient Appearance: Appropriate Patient Orientation: Person, Place, Time and Situation Level of Consciousness: Awake Patient Behavior: Appropriate, Distractible and Good Eye Contact Mood Description: Labile, Elated, Apprehensive and Expansive Affect Description: Suspicious, Labile, Apprehensive and Expansive Patient Cognition Impaired: No Ability to Follow Directions: Fair Speech Pattern: Clear Memory Description: Episodic Impaired Hallucinations: None Thought Process: Racing and Distracted Thought Content: positive for Flight of Ideas, positive for Circumstantial and positive for Tangential Judgement: Fair Judgement and Insight: Patient with multiple bizarre preoccupations paranoid concerns flight of ideas elevated not combative Diagnostics Vital Signs (24Hr): Vital Signs - 24 hr 12/16/23 08:19 12/16/23 18:40 Temperature 97.6 F 97.8 F Pulse Rate 91 88 Respiratory Rate 18 16 Blood Pressure 133/64 154/88 H Pulse Oximetry 96 98 Oxygen Delivery Method Room Air Room Air BMI result Body Mass Index 62.4 Labs 12/03/23 12:01 12/08/23 09:33 Labs: Laboratory Results - last 48 hr 12/15/23 12/15/23 12/16/23 10:54 22:12 08:15 POC Glucose 149 H 152 H 122 H 12/16/23 22:00 POC Glucose 134 H Medications Medications Current Medications Acetaminophen (Acetaminophen 325 Mg Tablet) 650 mg PO Q6H PRN PRN Reason: Headache/Pain Mild Scale (1-3) Last Admin: 12/05/23 20:46 Dose: 650 mg Al Hydroxide/Mg Hydroxide (Magnesium Hydrox/Alum Hydrox 30 Ml Oral.Susp) 30 ml PO Q6H PRN PRN Reason: Heartburn/Nausea Last Admin: 11/29/23 22:00 Dose: 30 ml Apixaban (Apixaban 5 Mg Tablet) 5 mg PO BID INOCENCIO Last Admin: 12/16/23 21:33 Dose: 5 mg Atenolol (Atenolol 25 Mg Tablet) 25 mg PO DAILY [facility]; Protocol Last Admin: 12/16/23 08:29 Dose: 25 mg Benzocaine (Throat Lozenge, Medicated Lozenge) 1 lozenge MUCOUS MEM Q2H PRN PRN Reason: Sore Throat Chlorpromazine HCl (Chlorpromazine Hcl 100 Mg Tablet) 100 mg PO BID PRN PRN Reason: brendon,psychosis Last Admin: 12/15/23 01:23 Dose: 100 mg Chlorpromazine HCl (Chlorpromazine Hcl 25 Mg Tablet) 50 mg PO BID@0900,1500 PRN PRN Reason: agitation Chlorpromazine HCl (Chlorpromazine Hcl 100 Mg Tablet) 100 mg PO BEDTIME INOCENCIO Last Admin: 12/16/23 21:33 Dose: 100 mg Clindamycin HCl (Clindamycin Hcl 300 Mg Capsule) 300 mg PO Q12H INOCENCIO Last Admin: 12/16/23 21:49 Dose: 300 mg Divalproex Sodium (Divalproex Sodium Sprinkles 125 Mg Cap.Dr.Spr) 1,250 mg PO BID INOCENCIO Last Admin: 12/16/23 21:32 Dose: 1,250 mg Docusate Sodium (Docusate Sodium 100 Mg Capsule) 100 mg PO BEDTIME INCOENCIO Last Admin: 12/16/23 21:33 Dose: 100 mg Furosemide (Furosemide 40 Mg Tablet) 40 mg PO DAILY [facility]; Protocol Last Admin: 12/16/23 08:28 Dose: 40 mg Hydroxyzine HCl (Hydroxyzine Hcl 25 Mg Tablet) 25 mg PO Q6H PRN PRN Reason: Anxiety Last Admin: 11/26/23 22:25 Dose: 25 mg Lactic Acid (Ammonium Lactate 12 % Lotion 226 Gm Bottle) 1 appl TOPICAL BID INOC[facility]; Protocol Last Admin: 12/16/23 21:38 Dose: 1 appl Lamotrigine (Lamotrigine 25 Mg Tablet) 25 mg PO BEDTIME INOCENCIO Last Admin: 12/16/23 21:33 Dose: 25 mg Lidocaine (Lidocaine 4 % Patch Adh..Patch) 1 patch TRANSDERMA DAILY [facility]; Protocol Last Admin: 12/16/23 08:29 Dose: Not Given Lorazepam (Lorazepam 1 Mg Tablet) 1 mg PO BEDTIME PRN PRN Reason: insomnia,anxiety,agitation Last Admin: 12/15/23 22:25 Dose: 1 mg Magnesium Hydroxide (Milk Of Magnesia 30 Ml Oral.Susp) 30 ml PO DAILY PRN PRN Reason: Constipation Metformin HCl (Metformin Hcl Er 500 Mg Tab.Er.24h) 500 mg PO DAILY [facility] Last Admin: 12/16/23 08:29 Dose: 500 mg Multi-Ingred Cream/Lotion/Oil/Oint (Mineral Oil/Petrolatum,White 106 Gm Tube) 1 appl TOPICAL BID [facility]OC[facility] Last Admin: 12/16/23 21:48 Dose: 1 appl Multivitamins/Vitamin C (Multivitamin Tablet) 1 tab PO DAILY [facility] Last Admin: 12/16/23 08:30 Dose: 1 tab Nicotine (Nicotine 21 Mg Patch.Td24) 21 mg TRANSDERMA DAILY PRN PRN Reason: smoking cessation Nicotine Polacrilex (Nicotine Polacrilex 2 Mg Gum) 4 mg BUCCAL Q2H PRN PRN Reason: Nicotine Cravings Last Admin: 11/24/23 15:15 Dose: 4 mg Pt Own (Culturelle (Probiotics 1 Cap)) 1 cap PO DAILY [facility] Last Admin: 12/16/23 08:30 Dose: Not Given Nystatin (Nystatin Powder 15 Gm Bottle) 1 appl TOPICAL BID [facility]; Protocol Last Admin: 12/16/23 21:39 Dose: 1 appl Olanzapine (Olanzapine 5 Mg Tablet) 5 mg PO TID PRN PRN Reason: agitation Last Admin: 11/26/23 18:25 Dose: 5 mg Paliperidone Palmitate (Paliperidone Palmitate 234 Mg/1.5 Ml Syringe) 234 mg IM Q30D [facility] Last Admin: 12/08/23 16:45 Dose: 234 mg Trazodone HCl (Trazodone Hcl 50 Mg Tablet) 50 mg PO BEDTIME MRX1 PRN PRN Reason: Insomnia Last Admin: 12/15/23 22:21 Dose: 50 mg Allergies Allergies Allergy/AdvReac Type Severity Reaction Status Date / Time kiwi [KIWI] Allergy Mild HIVES Verified 11/21/23 05:49 mold [MOLD EXTRACTS*] Allergy Mild HIVES Verified 11/21/23 05:49 Assessment & Plan Assessment & Plan (1) Schizoaffective disorder, bipolar type: Status: Acute Code(s): F25.0 - Schizoaffective disorder, bipolar type (2) Venous stasis: Status: Acute Code(s): I87.8 - Other specified disorders of veins Assessment and Plan: Cellulitis mimic Po Doxycycline for 10 days and topical steroids cover possible cellulitis superinfection hx of :Sepsis concerns with tachycardia and tachypnea. (not current 12/03/23) Treat venous stasis with elevation Follow with hospitalists as I do not assess this patients disposition ( am seeing on psychiatry. Check CBC unremarkable.) (3) Chronic cellulitis: Status: Acute Code(s): L03.90 - Cellulitis, unspecified Plan 12/01/23: Continue current tx and plan 12/02/23: Continue current plan and tx Change Chlorpromazine daytime doses to prn. 12/03/23 - seems more labile with mother present - reassuring eval by hospitalist today- they are following closely with us but encouraging and supporting patient with compliance with stockings and leg elevation seem paramount 12/04/23- limited mobility did wear kenzie stockings- but won't wear slippers/shoes- difficulty raising her feet up - ongoing hypersexual content of thought/somatic preoccupation of PCOS- wanting to sign 3d 12/05/23 Patient mostly in her room limited mobility somatic preoccupations patient did sign a 3 day unrealistic expectation regarding outpatient setting 12/08/23 Change Chlorpromazine 100 mg HS to prn Decrease Valproate from 3000 mg daily to 2000 mg daily Sustenna 234 mg IM given today by team. 12/09/23 Continue to monitor for daytime sedation. 12/11/23 Continue treatment 12/12/23 Sx of bacterial vaginosis-antibiotic initiated. 12/14/23: Labs ordered for the a.m. 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 Patient labile episodes of being expansive overwhelmed anxiety times somatic paranoid delusional material did receive Invega injection 1 week ago should be a therapeutic dose unfortunately has. 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
[2023-12-17 07:17] LABS: MANUAL DIFF FLAG NO
[2023-12-17 07:20] LABS: Basophils Percent Auto 0.6 % (0-2); Eosinophils Absolute Auto 0.1 X10*3/uL (0.0-0.4); Eosinophils Percent Auto 1.3 % (0-4); Hemoglobin 11.4 g/dl (12.0-16.0); Imm Gran Abs Auto 0.09 X10*3/uL (0.00-0.03); Imm Gran Pct Auto 1.3 % (0.0-0.4); Lymphocytes Absolute Auto 2.2 X10*3/uL (1.2-4.9); Lymphocytes Percent Auto 31.9 % (20-40); Mean Corpuscular HGB Conc 31.7 g/dl (31.0-35.0); Mean Corpuscular Hemoglobin 27.7 pg (27.0-33.0); Mean Corpuscular Volume 87.4 fL (80.0-98.0); Mean Platelet Volume 9.1 fL (9.4-12.3); Monocytes Absolute Auto 0.8 X10*3/uL (0.1-1.2); Monocytes Percent Auto 10.7 % (2-11); Neutrophils Absolute Auto 3.8 x10*3/uL (2.0-8.3); Neutrophils Percent Auto 54.2 % (45-73); Platelet Count 164 X10*3/uL (160-400); Red Blood Count 4.12 X10*6/uL (4.20-5.50); Red Cell Distribution Width 14.4 % (11.0-16.0)
[2023-12-17 07:35] LABS: Valproate 72.8 mcg/mL (50.0-100.0)
[2023-12-17 07:39] LABS: Alanine Aminotransferase 12 U/L (0-31); Albumin Level 3.9 g/dL (3.5-5.0); Alkaline Phosphatase 51 U/L (39-117); Anion Gap 15 (12-20); Aspartate Amino Transferase 12 U/L (5-31); Bilirubin Total 0.3 mg/dL (0.0-1.0); Blood Urea Nitrogen 14 mg/dL (9-16); Calcium 9.5 mg/dL (8.4-10.2); Carbon Dioxide 28 mmol/L (22-29); Chloride 105 mmol/L (96-108); Creatinine Clr Calc Pharmacy 239.1; Estimated Glomerular Filt Rate > 60; Glucose Fasting 150 mg/dL (60-99); Potassium 3.8 mmol/L (3.3-5.1); Sodium 144 mmol/L (135-145); Total Protein 6.8 g/dL (6.5-8.0)
[2023-12-17 08:00] VITALS: BP 173/99; PULSE 99; RESP 19; TEMP 36.5; O2SAT 98
[2023-12-17 08:30] LABS: Glucose, Whole Blood 126 mg/dL (60-115)
[2023-12-17] MEDS: metFORMIN HCl ER 500 MG TAB.ER.24H PO (08:32)
[2023-12-17] MEDS: Multivitamin TABLET 1 TAB PO (08:32)
[2023-12-17] MEDS: Apixaban 5 MG TABLET PO ×2 (08:32→20:03)
[2023-12-17] MEDS: Furosemide 40 MG TABLET PO (08:32)
[2023-12-17] MEDS: atenoloL 25 MG TABLET PO (08:33)
[2023-12-17] MEDS: Divalproex Sodium Sprinkles 125 MG CAP.DR.SPR 1250 MG PO ×2 (08:34→20:04)
[2023-12-17 09:25] VITALS: BP 119/76; PULSE 84
[2023-12-17] MEDS: Clindamycin HCL 300 MG CAPSULE PO (11:51)
[2023-12-17] MEDS: Nitrofurantoin Monohyd/M-Cryst 100 MG CAPSULE PO ×2 (13:48→20:04)
[2023-12-17] MEDS: Milk of Magnesia 30 ML ORAL.SUSP PO (13:52)
--- NOTE | 2023-12-17 16:45 | PC.NURSE ---
Pt continuing to pace in halls and has not been in her room this afternoon except to use bathroom. She has been refusing to wear her compression stockings at this time and Dr. Freeman aware. Her mother visited her this afternoon. 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 This afternoon she became agitated and began yelling at T/W demanding a mammogram and gynecological exam stating her aunt of breast CA. spoke with her and she became calmer and agitation subsided. Started on Macrobid for suspected UTI.
[2023-12-17 17:40] LABS: Glucose, Whole Blood 177 mg/dL (60-115)
[2023-12-17 17:58] VITALS: BP 160/82; PULSE 95; TEMP 36.9; O2SAT 100
[2023-12-17] MEDS: Docusate Sodium 100 MG CAPSULE PO (20:03)
[2023-12-17] MEDS: chlorproMAZINE HCl 100 MG TABLET PO (20:03)
[2023-12-17] MEDS: lamoTRIgine 25 MG TABLET PO (20:03)
[2023-12-17] MEDS: OLANZapine 5 MG TABLET PO (20:09)
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
[2023-12-18 08:19] VITALS: BP 131/79; PULSE 96; RESP 20; TEMP 36.8; O2SAT 96
[2023-12-18 08:37] LABS: Glucose, Whole Blood 122 mg/dL (60-115)
[2023-12-18] MEDS: Apixaban 5 MG TABLET PO ×2 (10:34→20:37)
[2023-12-18] MEDS: atenoloL 25 MG TABLET PO (10:34)
[2023-12-18] MEDS: Milk of Magnesia 30 ML ORAL.SUSP PO (10:35)
[2023-12-18] MEDS: Divalproex Sodium Sprinkles 125 MG CAP.DR.SPR 1250 MG PO ×2 (11:31→20:37)
[2023-12-18 17:39] LABS: Glucose, Whole Blood 130 mg/dL (60-115)
[2023-12-18 18:00] VITALS: BP 129/99; PULSE 90; RESP 18; TEMP 36.7; O2SAT 97
--- NOTE | 2023-12-18 19:17 | PC.NURSE ---
Pt continued to be delusional but less confrontational/agitated as the afternoon went on. She agreed to only take Depakote, Elaquis, and Atenolol this am. Continued to refuse wearing compression stockings this shift. POC glucose this evening was 130.
[2023-12-18] MEDS: chlorproMAZINE HCl 100 MG TABLET PO (20:37)
[2023-12-18] MEDS: lamoTRIgine 25 MG TABLET PO (20:37)
[2023-12-18] MEDS: Docusate Sodium 100 MG CAPSULE PO (20:37)
[2023-12-18] MEDS: Nitrofurantoin Monohyd/M-Cryst 100 MG CAPSULE PO (20:37)
[2023-12-18] MEDS: Clindamycin HCL 300 MG CAPSULE PO (20:37)
[2023-12-18 22:10] LABS: Glucose, Whole Blood 142 mg/dL (60-115)
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
[2023-12-19 07:45] VITALS: BP 141/84; PULSE 94; RESP 16; TEMP 36.4; O2SAT 100
[2023-12-19 08:11] LABS: Glucose, Whole Blood 122 mg/dL (60-115)
[2023-12-19] MEDS: atenoloL 25 MG TABLET PO (08:12)
[2023-12-19] MEDS: Apixaban 5 MG TABLET PO ×2 (08:13→20:05)
[2023-12-19] MEDS: Nitrofurantoin Monohyd/M-Cryst 100 MG CAPSULE PO ×2 (08:13→20:05)
[2023-12-19] MEDS: Multivitamin TABLET 1 TAB PO (08:13)
[2023-12-19] MEDS: Divalproex Sodium Sprinkles 125 MG CAP.DR.SPR 1250 MG PO ×2 (08:13→20:02)
[2023-12-19] MEDS: metFORMIN HCl ER 500 MG TAB.ER.24H PO (08:14)
[2023-12-19] MEDS: Furosemide 40 MG TABLET PO (08:14)
[2023-12-19] MEDS: Clindamycin HCL 300 MG CAPSULE PO ×2 (10:10→20:05)
--- NOTE | 2023-12-19 14:41 | HO.PSYCHPN ---
Subjective Subjective Date of Service: 12/19/23 Reason For Visit: manic aggressive Subjective Notes: Conditional Voluntary Medical Problems Affecting Mental Status: No Interim History: 33 yo with continued intrusiveness and reactivity- was accidentally superficially scratched by comb in nurses pocket- felt cared for by other nurse with bandaid- walking around [place] toasting people with her glass of water, another patient co of her interupting his visitors and intruding- Patients speech filled with loose associations- Medication Compliance: Yes Side effects from medications: No Attending Groups: Intermittent Review of Systems Acute medical concerns: No Medical Review of Systems: unchanged Mental Status Exam Mental Status Exam Narrative: Walking around [place], no shoes, same dress as 2 weeks ago= good eye contact, somewhat dishevelled interrupting provider with other patients saying she has no water to brush her teeth Patient Appearance: Unkempt Patient Orientation: Person, Place, Time and Situation Level of Consciousness: Awake Patient Behavior: Talkative, Wandering, Invasion - Personal Space and Good Eye Contact Mood Description: Elated Affect Description: Expansive Patient Cognition Impaired: No Ability to Follow Directions: Fair Speech Pattern: Clear Delusions: Grandiose Thought Process: Illogical Thought Content: positive for Flight of Ideas Abnormal Motor Activity Signs and Symptoms: Restlessness Judgement: Fair Diagnostics Vital Signs (24Hr): Vital Signs - 24 hr 12/18/23 18:00 12/19/23 07:45 Temperature 98.0 F 97.6 F Pulse Rate 90 94 Respiratory Rate 18 16 Blood Pressure 129/99 H 141/84 H Pulse Oximetry 97 100 Oxygen Delivery Method Room Air Room Air BMI result Body Mass Index 62.4 Labs 12/17/23 07:03 12/17/23 07:04 Labs: Laboratory Results - last 48 hr 12/17/23 12/18/23 12/18/23 17:36 08:31 17:34 POC Glucose 177 H 122 H 130 H 12/18/23 12/19/23 22:03 08:03 POC Glucose 142 H 122 H Medications Medications Current Medications Acetaminophen (Acetaminophen 325 Mg Tablet) 650 mg PO Q6H PRN PRN Reason: Headache/Pain Mild Scale (1-3) Last Admin: 12/05/23 20:46 Dose: 650 mg Al Hydroxide/Mg Hydroxide (Magnesium Hydrox/Alum Hydrox 30 Ml Oral.Susp) 30 ml PO Q6H PRN PRN Reason: Heartburn/Nausea Last Admin: 11/29/23 22:00 Dose: 30 ml Apixaban (Apixaban 5 Mg Tablet) 5 mg PO BID [facility] Last Admin: 12/19/23 08:13 Dose: 5 mg Atenolol (Atenolol 25 Mg Tablet) 25 mg PO DAILY [facility]; Protocol Last Admin: 12/19/23 08:12 Dose: 25 mg Benzocaine (Throat Lozenge, Medicated Lozenge) 1 lozenge MUCOUS MEM Q2H PRN PRN Reason: Sore Throat Chlorpromazine HCl (Chlorpromazine Hcl 100 Mg Tablet) 100 mg PO BID PRN PRN Reason: brendon,psychosis Last Admin: 12/15/23 01:23 Dose: 100 mg Chlorpromazine HCl (Chlorpromazine Hcl 25 Mg Tablet) 50 mg PO BID@0900,1500 PRN PRN Reason: agitation Chlorpromazine HCl (Chlorpromazine Hcl 100 Mg Tablet) 100 mg PO BEDTIME [facility] Last Admin: 12/18/23 20:37 Dose: 100 mg Clindamycin HCl (Clindamycin Hcl 300 Mg Capsule) 300 mg PO Q12H [facility] Last Admin: 12/19/23 10:10 Dose: 300 mg Divalproex Sodium (Divalproex Sodium Sprinkles 125 Mg Cap.Spr) 1,250 mg PO BID [facility] Last Admin: 12/19/23 08:13 Dose: 1,250 mg Docusate Sodium (Docusate Sodium 100 Mg Capsule) 100 mg PO BEDTIME [facility] Last Admin: 12/18/23 20:37 Dose: 100 mg Furosemide (Furosemide 40 Mg Tablet) 40 mg PO DAILY [facility]; Protocol Last Admin: 12/19/23 08:14 Dose: 40 mg Hydroxyzine HCl (Hydroxyzine Hcl 25 Mg Tablet) 25 mg PO Q6H PRN PRN Reason: Anxiety Last Admin: 11/26/23 22:25 Dose: 25 mg Lactic Acid (Ammonium Lactate 12 % Lotion 226 Gm Bottle) 1 appl TOPICAL BID PRN; Protocol PRN Reason: Rash Lamotrigine (Lamotrigine 25 Mg Tablet) 25 mg PO BEDTIME [facility] Last Admin: 12/18/23 20:37 Dose: 25 mg Lidocaine (Lidocaine 4 % Patch Adh..Patch) 1 patch TRANSDERMA DAILY [facility]; Protocol Last Admin: 12/19/23 10:07 Dose: Not Given Lorazepam (Lorazepam 1 Mg Tablet) 1 mg PO BEDTIME PRN PRN Reason: insomnia,anxiety,agitation Last Admin: 12/15/23 22:25 Dose: 1 mg Magnesium Hydroxide (Milk Of Magnesia 30 Ml Oral.Susp) 30 ml PO DAILY PRN PRN Reason: Constipation Last Admin: 12/18/23 10:35 Dose: 30 ml Metformin HCl (Metformin Hcl Er 500 Mg Tab.Er.24h) 500 mg PO DAILY [facility] Last Admin: 12/19/23 08:14 Dose: 500 mg Multi-Ingred Cream/Lotion/Oil/Oint (Mineral Oil/Petrolatum,White 106 Gm Tube) 1 appl TOPICAL BID [facility] Last Admin: 12/19/23 10:07 Dose: Not Given Multivitamins/Vitamin C (Multivitamin Tablet) 1 tab PO DAILY [facility] Last Admin: 12/19/23 08:13 Dose: 1 tab Nicotine (Nicotine 21 Mg Patch.Td24) 21 mg TRANSDERMA DAILY PRN PRN Reason: smoking cessation Nicotine Polacrilex (Nicotine Polacrilex 2 Mg Gum) 4 mg BUCCAL Q2H PRN PRN Reason: Nicotine Cravings Last Admin: 11/24/23 15:15 Dose: 4 mg Nitrofurantoin Macrocrystals (Nitrofurantoin Monohyd/M-Cryst 100 Mg Capsule) 100 mg PO BID [facility] Last Admin: 12/19/23 08:13 Dose: 100 mg Pt Own (Culturelle (Probiotics 1 Cap)) 1 cap PO DAILY [facility] Last Admin: 12/19/23 08:12 Dose: 1 cap Nystatin (Nystatin Powder 15 Gm Bottle) 1 appl TOPICAL BID PRN; Protocol PRN Reason: Rash Olanzapine (Olanzapine 5 Mg Tablet) 5 mg PO TID PRN PRN Reason: agitation Last Admin: 12/17/23 20:09 Dose: 5 mg Paliperidone Palmitate (Paliperidone Palmitate 234 Mg/1.5 Ml Syringe) 234 mg IM Q30D [facility] Last Admin: 12/08/23 16:45 Dose: 234 mg Trazodone HCl (Trazodone Hcl 50 Mg Tablet) 50 mg PO BEDTIME MRX1 PRN PRN Reason: Insomnia Last Admin: 12/15/23 22:21 Dose: 50 mg Allergies Allergies Allergy/AdvReac Type Severity Reaction Status Date / Time kiwi [KIWI] Allergy Mild HIVES Verified 11/21/23 05:49 mold [MOLD EXTRACTS*] Allergy Mild HIVES Verified 11/21/23 05:49 Assessment & Plan Assessment & Plan (1) Schizoaffective disorder, bipolar type: Status: Acute Code(s): F25.0 - Schizoaffective disorder, bipolar type (2) Venous stasis: Status: Acute Code(s): I87.8 - Other specified disorders of veins Assessment and Plan: Cellulitis mimic Po Doxycycline for 10 days and topical steroids cover possible cellulitis superinfection hx of :Sepsis concerns with tachycardia and tachypnea. (not current 12/03/23) Treat venous stasis with elevation Follow with hospitalists as I do not assess this patients disposition ( am seeing on psychiatry. Check CBC unremarkable.) (3) Chronic cellulitis: Status: Acute Code(s): L03.90 - Cellulitis, unspecified Plan 12/01/23: Continue current tx and plan 12/02/23: Continue current plan and tx Change Chlorpromazine daytime doses to prn. 12/03/23 - seems more labile with mother present - reassuring eval by hospitalist today- they are following closely with us but encouraging and supporting patient with compliance with stockings and leg elevation seem paramount 12/04/23- limited mobility did wear kenzie stockings- but won't wear slippers/shoes- difficulty raising her feet up - ongoing hypersexual content of thought/somatic preoccupation of PCOS- wanting to sign 3d 12/05/23 Patient mostly in her room limited mobility somatic preoccupations patient did sign a 3 day unrealistic expectation regarding outpatient setting 12/08/23 Change Chlorpromazine 100 mg HS to prn Decrease Valproate from 3000 mg daily to 2000 mg daily Sustenna 234 mg IM given today by team. 12/09/23 Continue to monitor for daytime sedation. 12/11/23 Continue treatment 12/12/23 Sx of bacterial vaginosis-antibiotic initiated. 12/14/23: Labs ordered for the a.m. 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 Patient labile episodes of being expansive overwhelmed anxiety times somatic paranoid delusional material did receive Invega injection 1 week ago should be a therapeutic dose unfortunately has. 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
[2023-12-19 18:00] VITALS: BP 167/81; PULSE 102; RESP 16; TEMP 36.7; O2SAT 99
[2023-12-19] MEDS: chlorproMAZINE HCl 100 MG TABLET PO ×2 (20:05→23:50)
[2023-12-19] MEDS: hydrOXYzine HCL 25 MG TABLET PO (20:05)
[2023-12-19] MEDS: lamoTRIgine 25 MG TABLET PO (20:05)
[2023-12-19] MEDS: Docusate Sodium 100 MG CAPSULE PO (20:05)
[2023-12-19 23:02] LABS: Glucose, Whole Blood 150 mg/dL (60-115)
[2023-12-19] MEDS: LORazepam 1 MG TABLET PO (23:50)
[2023-12-19] MEDS: Mineral Oil/Petrolatum,White 106 GM Tube 1 APPL TOPICAL (23:50)
[2023-12-20 07:45] VITALS: BP 145/95; PULSE 104; RESP 15; TEMP 36.4; O2SAT 100
[2023-12-20 08:25] LABS: Glucose, Whole Blood 109 mg/dL (60-115)
[2023-12-20] MEDS: Multivitamin TABLET 1 TAB PO (08:45)
[2023-12-20] MEDS: Divalproex Sodium Sprinkles 125 MG CAP.DR.SPR 1250 MG PO ×2 (08:45→21:16)
[2023-12-20] MEDS: Nitrofurantoin Monohyd/M-Cryst 100 MG CAPSULE PO ×2 (08:45→21:21)
[2023-12-20] MEDS: atenoloL 25 MG TABLET PO (08:45)
[2023-12-20] MEDS: metFORMIN HCl ER 500 MG TAB.ER.24H PO (08:45)
[2023-12-20] MEDS: Apixaban 5 MG TABLET PO ×2 (08:45→21:20)
[2023-12-20] MEDS: Furosemide 40 MG TABLET PO (08:45)
[2023-12-20] MEDS: Clindamycin HCL 300 MG CAPSULE PO (12:47)
--- NOTE | 2023-12-20 16:22 | P.PNPSI_ITS ---
Subjective Subjective Date of Service: 12/20/23 Reason For Visit: manic aggressive Subjective Notes: Conditional Voluntary Healthcare Proxy: Yes Guardianship: No Medical Problems Affecting Mental Status: Yes (UTI) Interim History: Team reports a difficult weekend with labile agitation, aggression and delusional sx. Nitrofurantoin initiated 12/16. Clindamycin scheduled to end 12/20. Pt calm when we spoke, asks if father's health will allow him to discharge from rehab, if he has had amputations, and if their lives will ever be the same. 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 Asks about her future. Intermittent agitation throughout the day. Medication Compliance: Yes Side effects from medications: No Attending Groups: No Review of Systems Acute medical concerns: No Medical Review of Systems: unchanged Review of Systems Review of Systems BLE edema Mental Status Exam Mental Status Exam Patient Appearance: Disheveled Patient Orientation: Person, Place and Situation Level of Consciousness: Alert Patient Behavior: Talkative Mood Description: Labile Affect Description: Labile Patient Cognition Impaired: Yes Ability to Follow Directions: Fair Speech Pattern: Spontaneous Speech Memory Description: Remote Impaired Hallucinations: None Delusions: Paranoid Ideation and Grandiose Thought Process: Illogical, Distracted and Rumination Thought Content: positive for Circumstantial Judgement: Poor Diagnostics Vital Signs (24Hr): Vital Signs - 24 hr 12/19/23 18:00 12/20/23 07:45 Temperature 98.1 F 97.5 F Pulse Rate 102 H 104 H Respiratory Rate 16 15 Blood Pressure 167/81 H 145/95 H Pulse Oximetry 99 100 Oxygen Delivery Method Room Air Room Air BMI result Body Mass Index 62.4 Labs 12/17/23 07:03 12/17/23 07:04 Labs: Laboratory Results - last 48 hr 12/18/23 12/18/23 12/19/23 17:34 22:03 08:03 POC Glucose 130 H 142 H 122 H 12/19/23 12/20/23 22:58 08:09 POC Glucose 150 H 109 Medications Medications Current Medications Acetaminophen (Acetaminophen 325 Mg Tablet) 650 mg PO Q6H PRN PRN Reason: Headache/Pain Mild Scale (1-3) Last Admin: 12/05/23 20:46 Dose: 650 mg Al Hydroxide/Mg Hydroxide (Magnesium Hydrox/Alum Hydrox 30 Ml Oral.Susp) 30 ml PO Q6H PRN PRN Reason: Heartburn/Nausea Last Admin: 11/29/23 22:00 Dose: 30 ml Apixaban (Apixaban 5 Mg Tablet) 5 mg PO BID [facility] [place] Last Admin: 12/20/23 08:45 Dose: 5 mg Atenolol (Atenolol 25 Mg Tablet) 25 mg PO DAILY [facility] [place]; Protocol Last Admin: 12/20/23 08:45 Dose: 25 mg Benzocaine (Throat Lozenge, Medicated Lozenge) 1 lozenge MUCOUS MEM Q2H PRN PRN Reason: Sore Throat Chlorpromazine HCl (Chlorpromazine Hcl 100 Mg Tablet) 100 mg PO BID PRN PRN Reason: brendon,psychosis Last Admin: 12/19/23 23:50 Dose: 100 mg Chlorpromazine HCl (Chlorpromazine Hcl 25 Mg Tablet) 50 mg PO BID@0900,1500 PRN PRN Reason: agitation Chlorpromazine HCl (Chlorpromazine Hcl 100 Mg Tablet) 100 mg PO BEDTIME [facility] [place] Last Admin: 12/19/23 20:05 Dose: 100 mg Clindamycin HCl (Clindamycin Hcl 300 Mg Capsule) 300 mg PO Q12H [facility] [place] Stop: 12/21/23 09:00 Last Admin: 12/20/23 12:47 Dose: 300 mg Divalproex Sodium (Divalproex Sodium Sprinkles 125 Mg Cap.DrJcSpr) 1,250 mg PO BID [facility] [place] Last Admin: 12/20/23 08:45 Dose: 1,250 mg Docusate Sodium (Docusate Sodium 100 Mg Capsule) 100 mg PO BEDTIME [facility] [place] Last Admin: 12/19/23 20:05 Dose: 100 mg Furosemide (Furosemide 40 Mg Tablet) 40 mg PO DAILY [facility] [place]; Protocol Last Admin: 12/20/23 08:45 Dose: 40 mg Hydroxyzine HCl (Hydroxyzine Hcl 25 Mg Tablet) 25 mg PO Q6H PRN PRN Reason: Anxiety Last Admin: 12/19/23 20:05 Dose: 25 mg Lactic Acid (Ammonium Lactate 12 % Lotion 226 Gm Bottle) 1 appl TOPICAL BID PRN; Protocol PRN Reason: Rash Lamotrigine (Lamotrigine 25 Mg Tablet) 25 mg PO BEDTIME [facility] [place] Last Admin: 12/19/23 20:05 Dose: 25 mg Lidocaine (Lidocaine 4 % Patch Adh..Patch) 1 patch TRANSDERMA DAILY [facility] [place]; Protocol Last Admin: 12/20/23 08:46 Dose: Not Given Lorazepam (Lorazepam 1 Mg Tablet) 1 mg PO BEDTIME PRN PRN Reason: insomnia,anxiety,agitation Last Admin: 12/19/23 23:50 Dose: 1 mg Lurasidone HCl (Lurasidone Hcl 20 Mg Tablet) 20 mg PO DAILY@1830 [facility] [place] Magnesium Hydroxide (Milk Of Magnesia 30 Ml Oral.Susp) 30 ml PO DAILY PRN PRN Reason: Constipation Last Admin: 12/18/23 10:35 Dose: 30 ml Metformin HCl (Metformin Hcl Er 500 Mg Tab.Er.24h) 500 mg PO DAILY [facility] [place] Last Admin: 12/20/23 08:45 Dose: 500 mg Multi-Ingred Cream/Lotion/Oil/Oint (Mineral Oil/Petrolatum,White 106 Gm Tube) 1 appl TOPICAL BID [facility] [place] Last Admin: 12/20/23 14:23 Dose: Not Given Multivitamins/Vitamin C (Multivitamin Tablet) 1 tab PO DAILY [facility] [place] Last Admin: 12/20/23 08:45 Dose: 1 tab Nicotine (Nicotine 21 Mg Patch.Td24) 21 mg TRANSDERMA DAILY PRN PRN Reason: smoking cessation Nicotine Polacrilex (Nicotine Polacrilex 2 Mg Gum) 4 mg BUCCAL Q2H PRN PRN Reason: Nicotine Cravings Last Admin: 11/24/23 15:15 Dose: 4 mg Nitrofurantoin Macrocrystals (Nitrofurantoin Monohyd/M-Cryst 100 Mg Capsule) 100 mg PO BID [facility] [place] Last Admin: 12/20/23 08:45 Dose: 100 mg Pt Own (Culturelle (Probiotics 1 Cap)) 1 cap PO DAILY [facility] [place] Last Admin: 12/20/23 08:45 Dose: 1 cap Nystatin (Nystatin Powder 15 Gm Bottle) 1 appl TOPICAL BID PRN; Protocol PRN Reason: Rash Olanzapine (Olanzapine 5 Mg Tablet) 5 mg PO TID PRN PRN Reason: agitation Last Admin: 12/17/23 20:09 Dose: 5 mg Paliperidone Palmitate (Paliperidone Palmitate 234 Mg/1.5 Ml Syringe) 234 mg IM Q30D [facility] [place] Last Admin: 12/08/23 16:45 Dose: 234 mg Trazodone HCl (Trazodone Hcl 50 Mg Tablet) 50 mg PO BEDTIME MRX1 PRN PRN Reason: Insomnia Last Admin: 12/15/23 22:21 Dose: 50 mg Allergies Allergies Allergy/AdvReac Type Severity Reaction Status Date / Time kiwi [KIWI] Allergy Mild HIVES Verified 11/21/23 05:49 mold [MOLD EXTRACTS*] Allergy Mild HIVES Verified 11/21/23 05:49 Assessment & Plan Assessment & Plan (1) Schizoaffective disorder, bipolar type: Status: Acute Code(s): F25.0 - Schizoaffective disorder, bipolar type (2) Venous stasis: Status: Acute Code(s): I87.8 - Other specified disorders of veins Assessment and Plan: Cellulitis mimic Po Doxycycline for 10 days and topical steroids cover possible cellulitis superinfection hx of :Sepsis concerns with tachycardia and tachypnea. (not current 12/03/23) Treat venous stasis with elevation Follow with hospitalists as I do not assess this patients disposition ( am seeing on psychiatry. Check CBC unremarkable.) (3) Chronic cellulitis: Status: Acute Code(s): L03.90 - Cellulitis, unspecified Plan 12/01/23: Continue current tx and plan 12/02/23: Continue current plan and tx Change Chlorpromazine daytime doses to prn. 12/03/23 - seems more labile with mother present - reassuring eval by hospitalist today- they are following closely with us but encouraging and supporting patient with compliance with stockings and leg elevation seem paramount 12/04/23- limited mobility did wear kenzie stockings- but won't wear slippers/shoes- difficulty raising her feet up - ongoing hypersexual content of thought/somatic preoccupation of PCOS- wanting to sign 3d 12/05/23 Patient mostly in her room limited mobility somatic preoccupations patient did sign a 3 day unrealistic expectation regarding outpatient setting 12/08/23 Change Chlorpromazine 100 mg HS to prn Decrease Valproate from 3000 mg daily to 2000 mg daily Sustenna 234 mg IM given today by team. 12/09/23 Continue to monitor for daytime sedation. 12/11/23 Continue treatment 12/12/23 Sx of bacterial vaginosis-antibiotic initiated. 12/14/23: Labs ordered for the a.m. 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 Patient labile episodes of being expansive overwhelmed anxiety times somatic paranoid delusional material did receive Invega injection 1 week ago should be a therapeutic dose unfortunately has. 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 Reason for continued inpatient stay Substantial Risk for: rapid decompensation Time Spent With Patient Time: Total time managing care of this patient today ____ minutes.
[2023-12-20 18:00] VITALS: BP 134/81; PULSE 93; TEMP 36.3; O2SAT 96
[2023-12-20] MEDS: Lurasidone HCl 20 MG TABLET PO (18:08)
[2023-12-20] MEDS: Docusate Sodium 100 MG CAPSULE PO (21:20)
[2023-12-20] MEDS: lamoTRIgine 25 MG TABLET 50 MG PO (21:20)
[2023-12-20] MEDS: chlorproMAZINE HCl 100 MG TABLET PO (21:21)
[2023-12-20 23:33] LABS: Glucose, Whole Blood 110 mg/dL (60-115)
[2023-12-21] MEDS: LORazepam 1 MG TABLET PO (00:43)
[2023-12-21] MEDS: OLANZapine 5 MG TABLET PO ×2 (01:55→16:38)
--- NOTE | 2023-12-21 02:37 | PC.NURSE ---
This patient was experiencing an extended episode of agitation. Nurse Haseeb attempted to give this patient one of her PRN antipsychotics, but this patient told the nurse Get away from me, you're evil! After removing patient from the area, this commercial real estate underwriter approached the patient and was able to administer PRN Zyprexa at approximately 0155.
[2023-12-21 07:48] LABS: Glucose, Whole Blood 104 mg/dL (60-115)
[2023-12-21 08:20] VITALS: BP 161/98; PULSE 104; RESP 18; TEMP 36.3; O2SAT 100
[2023-12-21 08:50] VITALS: BP 161/98; PULSE 104
[2023-12-21] MEDS: Nitrofurantoin Monohyd/M-Cryst 100 MG CAPSULE PO ×2 (08:50→22:39)
[2023-12-21] MEDS: atenoloL 25 MG TABLET PO (08:50)
[2023-12-21] MEDS: Divalproex Sodium Sprinkles 125 MG CAP.DR.SPR 1250 MG PO (08:50)
[2023-12-21] MEDS: Furosemide 40 MG TABLET PO (08:50)
[2023-12-21] MEDS: Multivitamin TABLET 1 TAB PO (08:50)
[2023-12-21] MEDS: metFORMIN HCl ER 500 MG TAB.ER.24H PO (08:51)
[2023-12-21] MEDS: Apixaban 5 MG TABLET PO ×2 (08:51→22:39)
--- NOTE | 2023-12-21 13:16 | P.PNPSI_ITS ---
Subjective Subjective Date of Service: 12/21/23 Reason For Visit: manic aggressive Subjective Notes: Conditional Voluntary Healthcare Proxy: No Guardianship: No Medical Problems Affecting Mental Status: No Interim History: Labile, agitated, aggressive. Poor sleep reported by team. Team reports early this a.m. she was aggressive and attempted to push her way into [facility] office however was able to redirect with extensive support from team. Discussed in team ending of Clindamycin, initiating Nitrofurantoin 12/16 for UTI sx. Latuda 20 mg re-started 12/19-? precipitant Lamictal increased by 25 mg 12/19. Altercation with a peer later in the afternoon, requiring security presence, screaming, yelling, spitting. prns given. Sx persisted later into the evening-requiring CPZ 100 mg IM, Lorazepam 1 mg IM, security presence. Team report hand edema, cool to touch and discolored. 2005: Resting in bed, calm, discussed with team. Medication Compliance: Yes Side effects from medications: No Attending Groups: No Review of Systems Acute medical concerns: No Medical Review of Systems: unchanged Review of Systems Review of Systems Yes Unobtainable due to mental status Mental Status Exam Mental Status Exam Patient Appearance: Fatigued Patient Orientation: Person and Place Level of Consciousness: Alert Patient Behavior: Guarded, Talkative, Suspicious, Aggressive, Belligerent, Anxious, Good Eye Contact and Impulsive Mood Description: Hostile, Labile and Angry Affect Description: Hostile, Labile and Angry Patient Cognition Impaired: Yes Ability to Follow Directions: Poor Speech Pattern: Spontaneous Speech Memory Description: Remote Impaired Delusions: Paranoid Ideation, Grandiose and Present Perceptual Disturbances: Derealization Thought Process: Illogical Thought Content: positive for Perseveration, positive for Preoccupation, positive for Loose Associations and positive for Disorganized Depressive Symptoms: Insomnia, Increased Irritability and Difficulty Sleeping Abnormal Motor Activity Signs and Symptoms: Aggression, Agitation and Restlessness Judgement: Poor Diagnostics Vital Signs (24Hr): Vital Signs - 24 hr 12/20/23 18:00 12/21/23 08:20 12/21/23 08:50 Temperature 97.4 F 97.3 F Pulse Rate 93 104 H 104 H Respiratory Rate 18 Blood Pressure 134/81 161/98 H 161/98 H Pulse Oximetry 96 100 Oxygen Delivery Method Room Air Room Air BMI result Body Mass Index 62.4 Labs 12/17/23 07:03 12/17/23 07:04 Labs: Laboratory Results - last 48 hr 12/19/23 12/20/23 12/20/23 22:58 08:09 23:27 POC Glucose 150 H 109 110 12/21/23 07:36 POC Glucose 104 Medications Medications Current Medications Acetaminophen (Acetaminophen 325 Mg Tablet) 650 mg PO Q6H PRN PRN Reason: Headache/Pain Mild Scale (1-3) Last Admin: 12/05/23 20:46 Dose: 650 mg Al Hydroxide/Mg Hydroxide (Magnesium Hydrox/Alum Hydrox 30 Ml Oral.Susp) 30 ml PO Q6H PRN PRN Reason: Heartburn/Nausea Last Admin: 11/29/23 22:00 Dose: 30 ml Apixaban (Apixaban 5 Mg Tablet) 5 mg PO BID [facility] Last Admin: 12/21/23 08:51 Dose: 5 mg Atenolol (Atenolol 25 Mg Tablet) 25 mg PO DAILY [facility]; Protocol Last Admin: 12/21/23 08:50 Dose: 25 mg Benzocaine (Throat Lozenge, Medicated Lozenge) 1 lozenge MUCOUS MEM Q2H PRN PRN Reason: Sore Throat Chlorpromazine HCl (Chlorpromazine Hcl 100 Mg Tablet) 100 mg PO BID PRN PRN Reason: brendon,psychosis Last Admin: 12/19/23 23:50 Dose: 100 mg Chlorpromazine HCl (Chlorpromazine Hcl 100 Mg Tablet) 100 mg PO BEDTIME [facility] Last Admin: 12/20/23 21:21 Dose: 100 mg Chlorpromazine HCl (Chlorpromazine Hcl 100 Mg Tablet) 100 mg PO BID@0900,1500 [facility] Divalproex Sodium (Divalproex Sodium Sprinkles 125 Mg ) 1,500 mg PO BID [facility] Docusate Sodium (Docusate Sodium 100 Mg Capsule) 100 mg PO BEDTIME [facility] Last Admin: 12/20/23 21:20 Dose: 100 mg Furosemide (Furosemide 40 Mg Tablet) 40 mg PO DAILY [facility]; Protocol Last Admin: 12/21/23 08:50 Dose: 40 mg Hydroxyzine HCl (Hydroxyzine Hcl 25 Mg Tablet) 25 mg PO Q6H PRN PRN Reason: Anxiety Last Admin: 12/19/23 20:05 Dose: 25 mg Lactic Acid (Ammonium Lactate 12 % Lotion 226 Gm Bottle) 1 appl TOPICAL BID PRN; Protocol PRN Reason: Rash Lamotrigine (Lamotrigine 25 Mg Tablet) 50 mg PO BEDTIME [facility] Last Admin: 12/20/23 21:20 Dose: 50 mg Lidocaine (Lidocaine 4 % Patch Adh..Patch) 1 patch TRANSDERMA DAILY [facility]; Protocol Last Admin: 12/21/23 09:10 Dose: Not Given Lorazepam (Lorazepam 1 Mg Tablet) 1 mg PO BEDTIME PRN PRN Reason: insomnia,anxiety,agitation Last Admin: 12/21/23 00:43 Dose: 1 mg Magnesium Hydroxide (Milk Of Magnesia 30 Ml Oral.Susp) 30 ml PO DAILY PRN PRN Reason: Constipation Last Admin: 12/18/23 10:35 Dose: 30 ml Metformin HCl (Metformin Hcl Er 500 Mg Tab.Er.24h) 500 mg PO DAILY [facility] Last Admin: 12/21/23 08:51 Dose: 500 mg Multi-Ingred Cream/Lotion/Oil/Oint (Mineral Oil/Petrolatum,White 106 Gm Tube) 1 appl TOPICAL BID [facility] Last Admin: 12/21/23 09:10 Dose: Not Given Multivitamins/Vitamin C (Multivitamin Tablet) 1 tab PO DAILY [facility] Last Admin: 12/21/23 08:50 Dose: 1 tab Nicotine (Nicotine 21 Mg Patch.Td24) 21 mg TRANSDERMA DAILY PRN PRN Reason: smoking cessation Nicotine Polacrilex (Nicotine Polacrilex 2 Mg Gum) 4 mg BUCCAL Q2H PRN PRN Reason: Nicotine Cravings Last Admin: 11/24/23 15:15 Dose: 4 mg Nitrofurantoin Macrocrystals (Nitrofurantoin Monohyd/M-Cryst 100 Mg Capsule) 100 mg PO BID [facility] Last Admin: 12/21/23 08:50 Dose: 100 mg Pt Own (Culturelle (Probiotics 1 Cap)) 1 cap PO DAILY [facility] Last Admin: 12/21/23 08:50 Dose: Not Given Nystatin (Nystatin Powder 15 Gm Bottle) 1 appl TOPICAL BID PRN; Protocol PRN Reason: Rash Olanzapine (Olanzapine 5 Mg Tablet) 5 mg PO TID PRN PRN Reason: agitation Last Admin: 12/21/23 01:55 Dose: 5 mg Paliperidone Palmitate (Paliperidone Palmitate 234 Mg/1.5 Ml Syringe) 234 mg IM Q30D [facility] Last Admin: 12/08/23 16:45 Dose: 234 mg Trazodone HCl (Trazodone Hcl 50 Mg Tablet) 50 mg PO BEDTIME MRX1 PRN PRN Reason: Insomnia Last Admin: 12/15/23 22:21 Dose: 50 mg Allergies Allergies Allergy/AdvReac Type Severity Reaction Status Date / Time kiwi [KIWI] Allergy Mild HIVES Verified 11/21/23 05:49 mold [MOLD EXTRACTS*] Allergy Mild HIVES Verified 11/21/23 05:49 Assessment & Plan Assessment & Plan (1) Schizoaffective disorder, bipolar type: Status: Acute Code(s): F25.0 - Schizoaffective disorder, bipolar type (2) Venous stasis: Status: Acute Code(s): I87.8 - Other specified disorders of veins Assessment and Plan: Cellulitis mimic Po Doxycycline for 10 days and topical steroids cover possible cellulitis superinfection hx of :Sepsis concerns with tachycardia and tachypnea. (not current 12/03/23) Treat venous stasis with elevation Follow with hospitalists as I do not assess this patients disposition ( am seeing on psychiatry. Check CBC unremarkable.) (3) Chronic cellulitis: Status: Acute Code(s): L03.90 - Cellulitis, unspecified Plan 12/01/23: Continue current tx and plan 12/02/23: Continue current plan and tx Change Chlorpromazine daytime doses to prn. 12/03/23 - seems more labile with mother present - reassuring eval by hospitalist today- they are following closely with us but encouraging and supporting patient with compliance with stockings and leg elevation seem paramount 12/04/23- limited mobility did wear kenzie stockings- but won't wear slippers/shoes- difficulty raising her feet up - ongoing hypersexual content of thought/somatic preoccupation of PCOS- wanting to sign 3d 12/05/23 Patient mostly in her room limited mobility somatic preoccupations patient did sign a 3 day unrealistic expectation regarding outpatient setting 12/08/23 Change Chlorpromazine 100 mg HS to prn Decrease Valproate from 3000 mg daily to 2000 mg daily Sustenna 234 mg IM given today by team. 12/09/23 Continue to monitor for daytime sedation. 12/11/23 Continue treatment 12/12/23 Sx of bacterial vaginosis-antibiotic initiated. 12/14/23: Labs ordered for the a.m. 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 Patient labile episodes of being expansive overwhelmed anxiety times somatic paranoid delusional material did receive Invega injection 1 week ago should be a therapeutic dose unfortunately has. 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 -EKG -CBCD, CMP, Lactic Acid Reason for continued inpatient stay Substantial Risk for: rapid decompensation and med/psych decompensation Time Spent With Patient Time: Total time managing care of this patient today ____ minutes.
[2023-12-21] MEDS: hydrOXYzine HCL 25 MG TABLET PO (16:38)
[2023-12-21] MEDS: HaloperidoL 5 MG TABLET PO (16:38)
--- NOTE | 2023-12-21 19:10 | PC.NURSE ---
Zeinab has multiple outbursts through the early afternoon and evening. She spit at another patient at the phone and screamed at her. She received oral medications after this episode without effect.
[2023-12-21] MEDS: LORazepam 2 MG/ML VIAL 1 MG IM (19:40)
[2023-12-21] MEDS: chlorproMAZINE HCl 25 MG/ML AMPUL 100 MG IM (19:40)
[2023-12-21 20:00] VITALS: BP 119/72; PULSE 98; RESP 16; TEMP 36.4; O2SAT 98
--- NOTE | 2023-12-21 20:05 | PC.NURSE ---
pt continued to scream, repeatedly slam the phone, make sexually inappropriate comments, stare into the kitchen and berate staff and peers. Pt threatened peer and screamed Don't make me fucking kill you! I'm also a serial mass murderer! Pt was unable to be redirected and spat at a nurse who was attempting to redirect the pt. Security was called to assist as pt continued to threaten and berate staff and peers. Provider CAW notified. IM Thorazine 100mg and IM Ativan 1mg ordered and administered in right and left deltoids respectively @ 19:40. Pt was cooperative during administration. Hospitalist assessed pt at 20:03. Pt is currently resting in bed without issue.
[2023-12-21 21:15] LABS: MANUAL DIFF FLAG NO
[2023-12-21 21:30] LABS: Lactic Acid 2.5 mmol/L (0.5-2.0)
[2023-12-21 21:31] LABS: Basophils Absolute Auto 0.1 X10*3/uL (0.0-0.2); Basophils Percent Auto 0.7 % (0-2); Eosinophils Absolute Auto 0.2 X10*3/uL (0.0-0.4); Eosinophils Percent Auto 1.9 % (0-4); Hematocrit 36.4 % (37.0-47.0); Hemoglobin 11.8 g/dl (12.0-16.0); Imm Gran Abs Auto 0.06 X10*3/uL (0.00-0.03); Imm Gran Pct Auto 0.7 % (0.0-0.4); Lymphocytes Absolute Auto 2.3 X10*3/uL (1.2-4.9); Lymphocytes Percent Auto 26.9 % (20-40); Mean Corpuscular HGB Conc 32.4 g/dl (31.0-35.0); Mean Corpuscular Hemoglobin 27.8 pg (27.0-33.0); Mean Corpuscular Volume 85.6 fL (80.0-98.0); Mean Platelet Volume 9.9 fL (9.4-12.3); Monocytes Absolute Auto 0.7 X10*3/uL (0.1-1.2); Monocytes Percent Auto 7.8 % (2-11); Neutrophils Absolute Auto 5.3 x10*3/uL (2.0-8.3); Platelet Count 181 X10*3/uL (160-400); Red Blood Count 4.25 X10*6/uL (4.20-5.50); Red Cell Distribution Width 14.3 % (11.0-16.0); White Blood Count 8.5 X10*3/uL (4.8-10.8)
[2023-12-21 21:33] LABS: Alanine Aminotransferase 14 U/L (0-31); Albumin Level 4.4 g/dL (3.5-5.0); Alkaline Phosphatase 63 U/L (39-117); Anion Gap 14 (12-20); Aspartate Amino Transferase 12 U/L (5-31); Bilirubin Total 0.4 mg/dL (0.0-1.0); Blood Urea Nitrogen 14 mg/dL (9-16); Calcium 9.9 mg/dL (8.4-10.2); Carbon Dioxide 31 mmol/L (22-29); Chloride 102 mmol/L (96-108); Creatinine Clr Calc Pharmacy 250.9; Estimated Glomerular Filt Rate > 60; Glucose Random 163 mg/dL (60-115); Potassium 3.8 mmol/L (3.3-5.1); Sodium 143 mmol/L (135-145); Total Protein 7.4 g/dL (6.5-8.0)
[2023-12-21] MEDS: chlorproMAZINE HCl 100 MG TABLET PO (22:39)
[2023-12-21] MEDS: Docusate Sodium 100 MG CAPSULE PO (22:39)
[2023-12-21] MEDS: lamoTRIgine 25 MG TABLET PO (22:39)
[2023-12-21] MEDS: Divalproex Sodium Sprinkles 125 MG CAP.DR.SPR 1500 MG PO (22:40)
[2023-12-21 23:14] LABS: Reflex Lactate? Lactic Acid Added
--- NOTE | 2023-12-22 | ECG_ITS ---
Test Reason : agitation, qtc check Blood Pressure : / mmHG Vent. Rate : 086 BPM Atrial Rate : 086 BPM P-R Int : 154 ms QRS Dur : 100 ms QT Int : 400 ms P-R-T Axes : 072 061 045 degrees QTc Int : 478 ms Normal sinus rhythm Normal ECG When compared with ECG of 24-NOV-2023 08:54, No significant change was found Referred By: Rianna Santos Electronically Signed By:SATHYA CHAVES
[2023-12-22 00:18] LABS: Lactic Acid 2.2 mmol/L (0.5-2.0)
[2023-12-22 01:58] LABS: Reflex Lactate? Lactic Acid Added
[2023-12-22 07:00] VITALS: BMI 62.5
[2023-12-22] MEDS: Divalproex Sodium Sprinkles 125 MG CAP.DR.SPR 1500 MG PO ×2 (07:59→22:32)
[2023-12-22] MEDS: chlorproMAZINE HCl 25 MG TABLET 50 MG PO ×2 (07:59→14:43)
[2023-12-22] MEDS: Apixaban 5 MG TABLET PO ×2 (07:59→22:31)
[2023-12-22] MEDS: Nitrofurantoin Monohyd/M-Cryst 100 MG CAPSULE PO ×2 (07:59→22:32)
[2023-12-22 08:00] VITALS: BP 131/87; PULSE 115; RESP 18; TEMP 36.3; O2SAT 99
[2023-12-22] MEDS: atenoloL 25 MG TABLET PO (08:00)
[2023-12-22] MEDS: metFORMIN HCl ER 500 MG TAB.ER.24H PO (08:00)
[2023-12-22 08:01] VITALS: BP 131/87
[2023-12-22] MEDS: Furosemide 40 MG TABLET PO (08:01)
[2023-12-22 08:56] LABS: Glucose, Whole Blood 115 mg/dL (60-115)
--- NOTE | 2023-12-22 12:34 | HO.WOUND ---
Wound Consult: Follow up 33yr old?Female admitted to [facility] on 11/21 to the Behavioral Health Unit - See progress notes and H&P for detailed history.? Of note patient had recent admission and was seen by this inpatient wound care nurse. Wound consult follow up for Abdominal skin folds, Left breast and BLE. Patient agreeable to assessment and photo documentation.? The Abdominal skin fold was clean and free of MASD and Intertrigo - no skin break down noted. Perineal area and Bilateral groin were assessed they were noted for unkept odor - patient encouraged to maintain pericare - direct care team aware as well. There was no strong indication of fungal dermatits noted - red pink erythema with mirrored edges along skin fold consistent with MASD - Intertrigo (Moisture Associated Skin Damage) Goals of Treatment: ?Barrier cream or Heather No Rinse [place] to cleanse and provide Dimethicone barrier layer. Left Leg - Firm swelling noted - no warmth or erythema noted Right Lower Leg Right Foot Right Dorsal Foot Etiology: ?Resolved Cellulitis Wound Bed: no open wound - resurfaced wound bed - dry flaking skin Drainage / Odor: none noted Anastacia wound: Mild erythema, No warmth and some swelling noted Pain: denies pain Goals of Treatment: ? If worsening erythema develops reconsult hospitalist for systemic treatment options currently does not appear infected consistent with chronic edema - Edema wear size medium were put on they had not been in place and per discussion with direct care nurse she was refusing at various times. Elevate Bilateral lower legs throughout the day on pillows. Apply Edema Wear Compression Stockings - Edema Wear compression garments should be applied first thing in the morning.? Hand wash and hang dry.? Stockings should be worn from the base of the toes to just below the knee.? Fold over at end to prevent rolling.? They are disposable after about 2 weeks of regular use. Left Breast Etiology: Etiology unclear may be site of Hidradenitis - patient reports mild itching remains - wounds are resurfaced no open tissue noted - hyperpigmentation remains no s/s of infection at this time. No topical recommendations needed at this time. Provider may consider topical steroid for itch relief. Recommendations: 1. Turn and Reposition every 2 hours and as needed for patient comfort.? Use pillows or wedges to support off loading positions. 2. Off Load all bony prominences with use of pillows and heel boots if needed.? Apply Preventative foams where needed. ? 3. Monitor for incontinence and moisture control, use barrier creams when needed for prevention and treatment. 4. Provide adequate and supplemental nutrition.? 5. When applicable maintain blood glucose levels per Providers order. 6. Perineal and bilateral groin - Thorough cleansing with PH balanced soap rinse well and dry well. May use Heather PH balanced no rinse spray to clean perineal area. This will cleanse and provide a layer of dimethicone to act as a barrier to moisture. Apply twice daily. 7. Bilateral Lower Legs - Moisturize lower legs to prevent or minimize risk of skin splitting with swelling. May wash with Heather [place] no rinse Ph Balanced spray (same for incontinence care). Elevate Bilateral lower legs throughout the day on pillows. Apply Edema Wear Compression Stockings size Medium (Yellow stripe) - Edema Wear compression garments should be applied first thing in the morning.? Hand wash and hang dry.? Stockings should be worn from the base of the toes to just below the knee.? Fold over at end to prevent rolling.? They are disposable after about 2 weeks or regular use. Re-consult wound care Nurse for wound deterioration or wound changes.
--- NOTE | 2023-12-22 17:34 | HO.PSYCHPN ---
Subjective Subjective Date of Service: 12/22/23 Reason For Visit: manic aggressive Subjective Notes: Conditional Voluntary Healthcare Proxy: No Guardianship: No Medical Problems Affecting Mental Status: No Interim History: Team report three hours sleep. Pt was sedate this a.m. Slept in the early part of the day. Discussed with team the possibility of hypoxia, non compliance with CPAP as a contributing etiology for agitation. Email attempted consultation with respiratory therapy for problem solving unsuccessful. Team report O2 sat 91-98. [employer], Shanelle Loya RN purchased a wedge for pt to add comfort and decrease respiratory distress. Discussed chronic uti, BV, also as contributing factors to delirium like sx. Will trial Metronidazole gel QD to progress to 2xw. Pt seen by Cris Carballo RN of wound care which is much appreciated. No new orders. Cris reports L breast itching which may benefit from a topical steroid which is ordered. R Leg warm, both legs with significant edema/swelling. No sx cellulitis, active venous dermatitis. Pt is wearing her edema wear today when seen by Cris. Pt eating mid-day meal when seen. Calm, offers to share her meal, smiling, tangential, talking about people who have come into her coffee shop and the quality of their friendships. Reviewed requested changes in plan of care. You all know how to take care of me, I am ok with this. Good eye contact, some vacant staring at times. Denies current concerns, denies pain. Reports not feeling over medicated or under medicated. NO recall of 12/20 incidents. I love everyone. Encouraged to elevate her feet. No concerns about family- they are all fine I think. No aggressive agitation as was exhibitied on 12/20. Valproate, Ammonia, Palperidone level ordered for the a.m. but not drawn. Medication Compliance: Yes Side effects from medications: No Review of Systems Acute medical concerns: Yes as noted Review of Systems Review of Systems venous dermatitis O2 sat 91-98% per team eval chronic UTI, BV Mental Status Exam Mental Status Exam Patient Appearance: Fatigued Patient Orientation: Person and Place Level of Consciousness: Alert Patient Behavior: Appropriate, Talkative, Cooperative, Distractible, Confused and Good Eye Contact Mood Description: Calm Affect Description: Labile Patient Cognition Impaired: Yes Ability to Follow Directions: Good Speech Pattern: Spontaneous Speech Memory Description: Remote Impaired Hallucinations: None Delusions: Grandiose and Present Perceptual Disturbances: Derealization Thought Process: Illogical and Distracted Thought Content: positive for Flight of Ideas, positive for Circumstantial, positive for Perseveration, positive for Loose Associations, positive for Tangential and positive for Disorganized Depressive Symptoms: Insomnia, Difficulty Sleeping, Increased Fatigue and Low Self Esteem Judgement: Poor Diagnostics Vital Signs (24Hr): Vital Signs - 24 hr 12/21/23 20:00 12/22/23 08:00 12/22/23 08:00 Temperature 97.6 F 97.4 F Pulse Rate 98 115 H 115 H Respiratory Rate 16 18 Blood Pressure 119/72 131/87 131/87 Pulse Oximetry 98 99 Oxygen Delivery Method Room Air Room Air 12/22/23 08:01 Temperature Pulse Rate Respiratory Rate Blood Pressure 131/87 Pulse Oximetry Oxygen Delivery Method BMI result Body Mass Index 62.5 Labs 12/21/23 21:10 12/21/23 21:10 Labs: Laboratory Results - last 48 hr 12/20/23 12/21/23 12/21/23 23:27 07:36 21:10 WBC 8.5 RBC 4.25 Hgb 11.8 L Hct 36.4 L MCV 85.6 MCH 27.8 MCHC 32.4 RDW 14.3 Plt Count 181 MPV 9.9 Immature Gran % (Auto) 0.7 H Neut % (Auto) 62.0 Lymph % (Auto) 26.9 [place] % (Auto) 7.8 Eos % (Auto) 1.9 Baso % (Auto) 0.7 Lymph # (Auto) 2.3 [place] # (Auto) 0.7 Eos # (Auto) 0.2 Baso # (Auto) 0.1 Abs Immat Gran (auto) 0.06 H Absolute Neuts (auto) 5.3 Absolute Nucleated RBC 0.000 Nucleated RBC % (auto) 0.0 Sodium 143 Potassium 3.8 Chloride 102 Carbon Dioxide 31 H Anion Gap 14 BUN 14 Creatinine 0.61 Estim Creat Clear Calc 250.9 Estimated GFR > 60 POC Glucose 110 104 Random Glucose 163 H Lactic Acid 2.5 H* Calcium 9.9 Total Bilirubin 0.4 AST 12 ALT 14 Alkaline Phosphatase 63 Total Protein 7.4 Albumin 4.4 12/21/23 12/22/23 23:57 08:50 WBC RBC Hgb Hct MCV MCH MCHC RDW Plt Count MPV Immature Gran % (Auto) Neut % (Auto) Lymph % (Auto) [place] % (Auto) Eos % (Auto) Baso % (Auto) Lymph # (Auto) [place] # (Auto) Eos # (Auto) Baso # (Auto) Abs Immat Gran (auto) Absolute Neuts (auto) Absolute Nucleated RBC Nucleated RBC % (auto) Sodium Potassium Chloride Carbon Dioxide Anion Gap BUN Creatinine Estim Creat Clear Calc Estimated GFR POC Glucose 115 Random Glucose Lactic Acid 2.2 H* Calcium Total Bilirubin AST ALT Alkaline Phosphatase Total Protein Albumin Medications Medications Current Medications Acetaminophen (Acetaminophen 325 Mg Tablet) 650 mg PO Q6H PRN PRN Reason: Headache/Pain Mild Scale (1-3) Last Admin: 12/05/23 20:46 Dose: 650 mg Al Hydroxide/Mg Hydroxide (Magnesium Hydrox/Alum Hydrox 30 Ml Oral.Susp) 30 ml PO Q6H PRN PRN Reason: Heartburn/Nausea Last Admin: 11/29/23 22:00 Dose: 30 ml Apixaban (Apixaban 5 Mg Tablet) 5 mg PO BID [facility] Last Admin: 12/22/23 07:59 Dose: 5 mg Atenolol (Atenolol 25 Mg Tablet) 25 mg PO DAILY [facility]; Protocol Last Admin: 12/22/23 08:00 Dose: 25 mg Benzocaine (Throat Lozenge, Medicated Lozenge) 1 lozenge MUCOUS MEM Q2H PRN PRN Reason: Sore Throat Chlorpromazine HCl (Chlorpromazine Hcl 25 Mg Tablet) 50 mg PO BID@0900,1500 [facility] Last Admin: 12/22/23 14:43 Dose: 50 mg Chlorpromazine HCl (Chlorpromazine Hcl 100 Mg Tablet) 100 mg PO BEDTIME [facility] Last Admin: 12/21/23 22:39 Dose: 100 mg Chlorpromazine HCl (Chlorpromazine Hcl 100 Mg Tablet) 100 mg PO BID PRN PRN Reason: psychosis, agitation Divalproex Sodium (Divalproex Sodium Sprinkles 125 Mg ) 1,500 mg PO BID [facility] Last Admin: 12/22/23 07:59 Dose: 1,500 mg Docusate Sodium (Docusate Sodium 100 Mg Capsule) 100 mg PO BEDTIME [facility] Last Admin: 12/21/23 22:39 Dose: 100 mg Furosemide (Furosemide 40 Mg Tablet) 40 mg PO DAILY [facility]; Protocol Last Admin: 12/22/23 08:01 Dose: 40 mg Hydroxyzine HCl (Hydroxyzine Hcl 25 Mg Tablet) 25 mg PO Q6H PRN PRN Reason: Anxiety Last Admin: 12/21/23 16:38 Dose: 25 mg Lactic Acid (Ammonium Lactate 12 % Lotion 226 Gm Bottle) 1 appl TOPICAL BID PRN; Protocol PRN Reason: Rash Lamotrigine (Lamotrigine 25 Mg Tablet) 25 mg PO BEDTIME [facility] Last Admin: 12/21/23 22:39 Dose: 25 mg Lidocaine (Lidocaine 4 % Patch Adh..Patch) 1 patch TRANSDERMA DAILY [facility]; Protocol Last Admin: 12/22/23 08:01 Dose: Not Given Lorazepam (Lorazepam 1 Mg Tablet) 1 mg PO BEDTIME PRN PRN Reason: insomnia,anxiety,agitation Last Admin: 12/21/23 00:43 Dose: 1 mg Magnesium Hydroxide (Milk Of Magnesia 30 Ml Oral.Susp) 30 ml PO DAILY PRN PRN Reason: Constipation Last Admin: 12/18/23 10:35 Dose: 30 ml Metformin HCl (Metformin Hcl Er 500 Mg Tab.Er.24h) 500 mg PO DAILY [facility] Last Admin: 12/22/23 08:00 Dose: 500 mg Multi-Ingred Cream/Lotion/Oil/Oint (Mineral Oil/Petrolatum,White 106 Gm Tube) 1 appl TOPICAL BID [facility] Last Admin: 12/22/23 08:01 Dose: Not Given Multivitamins/Vitamin C (Multivitamin Tablet) 1 tab PO DAILY [facility] Last Admin: 12/22/23 08:01 Dose: Not Given Nicotine (Nicotine 21 Mg Patch.Td24) 21 mg TRANSDERMA DAILY PRN PRN Reason: smoking cessation Nicotine Polacrilex (Nicotine Polacrilex 2 Mg Gum) 4 mg BUCCAL Q2H PRN PRN Reason: Nicotine Cravings Last Admin: 11/24/23 15:15 Dose: 4 mg Nitrofurantoin Macrocrystals (Nitrofurantoin Monohyd/M-Cryst 100 Mg Capsule) 100 mg PO BID [facility] Last Admin: 12/22/23 07:59 Dose: 100 mg Pt Own (Culturelle (Probiotics 1 Cap)) 1 cap PO DAILY [facility] Last Admin: 12/22/23 08:01 Dose: Not Given Nystatin (Nystatin Powder 15 Gm Bottle) 1 appl TOPICAL BID PRN; Protocol PRN Reason: Rash Olanzapine (Olanzapine 5 Mg Tablet) 5 mg PO TID PRN PRN Reason: agitation Last Admin: 12/21/23 16:38 Dose: 5 mg Paliperidone Palmitate (Paliperidone Palmitate 234 Mg/1.5 Ml Syringe) 234 mg IM Q30D [facility] Last Admin: 12/08/23 16:45 Dose: 234 mg Trazodone HCl (Trazodone Hcl 50 Mg Tablet) 50 mg PO BEDTIME MRX1 PRN PRN Reason: Insomnia Last Admin: 12/15/23 22:21 Dose: 50 mg Allergies Allergies Allergy/AdvReac Type Severity Reaction Status Date / Time kiwi [KIWI] Allergy Mild HIVES Verified 11/21/23 05:49 mold [MOLD EXTRACTS*] Allergy Mild HIVES Verified 11/21/23 05:49 Assessment & Plan Assessment & Plan (1) Schizoaffective disorder, bipolar type: Status: Acute Code(s): F25.0 - Schizoaffective disorder, bipolar type (2) Venous stasis: Status: Acute Code(s): I87.8 - Other specified disorders of veins Assessment and Plan: Cellulitis mimic Po Doxycycline for 10 days and topical steroids cover possible cellulitis superinfection hx of :Sepsis concerns with tachycardia and tachypnea. (not current 12/03/23) Treat venous stasis with elevation Follow with hospitalists as I do not assess this patients disposition ( am seeing on psychiatry. Check CBC unremarkable.) (3) Chronic cellulitis: Status: Acute Code(s): L03.90 - Cellulitis, unspecified Plan 12/01/23: Continue current tx and plan 12/02/23: Continue current plan and tx Change Chlorpromazine daytime doses to prn. 12/03/23 - seems more labile with mother present - reassuring eval by hospitalist today- they are following closely with us but encouraging and supporting patient with compliance with stockings and leg elevation seem paramount 12/04/23- limited mobility did wear kenzie stockings- but won't wear slippers/shoes- difficulty raising her feet up - ongoing hypersexual content of thought/somatic preoccupation of PCOS- wanting to sign 3d 12/05/23 Patient mostly in her room limited mobility somatic preoccupations patient did sign a 3 day unrealistic expectation regarding outpatient setting 12/08/23 Change Chlorpromazine 100 mg HS to prn Decrease Valproate from 3000 mg daily to 2000 mg daily Sustenna 234 mg IM given today by team. 12/09/23 Continue to monitor for daytime sedation. 12/11/23 Continue treatment 12/12/23 Sx of bacterial vaginosis-antibiotic initiated. 12/14/23: Labs ordered for the a.m. 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 Patient labile episodes of being expansive overwhelmed anxiety times somatic paranoid delusional material did receive Invega injection 1 week ago should be a therapeutic dose unfortunately has. 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 Metronidazole gel QD for BV Cris Carballo's consult much appreciated. Informed Consent: does not understand Reason for continued inpatient stay Substantial Risk for: med/psych decompensation Time Spent With Patient Time: Total time managing care of this patient today ____ minutes.
[2023-12-22 21:50] VITALS: BP 147/79; PULSE 97; TEMP 36.8
[2023-12-22 22:27] LABS: Glucose, Whole Blood 100 mg/dL (60-115)
[2023-12-22] MEDS: Docusate Sodium 100 MG CAPSULE PO (22:31)
[2023-12-22] MEDS: chlorproMAZINE HCl 100 MG TABLET PO (22:31)
[2023-12-22] MEDS: lamoTRIgine 25 MG TABLET PO (22:32)
[2023-12-22] MEDS: Mineral Oil/Petrolatum,White 106 GM Tube 1 APPL TOPICAL (22:35)
[2023-12-22] MEDS: Hydrocortisone 1 % Cream 28.35 GM TUBE 1 APPL TOPICAL (23:35)
[2023-12-23 09:27] VITALS: BP 135/80; PULSE 102; RESP 16; TEMP 36.6; O2SAT 97
[2023-12-23 09:51] LABS: Glucose, Whole Blood 111 mg/dL (60-115)
[2023-12-23] MEDS: Divalproex Sodium Sprinkles 125 MG CAP.DR.SPR 1500 MG PO ×2 (09:55→20:47)
[2023-12-23] MEDS: Furosemide 40 MG TABLET PO (09:57)
[2023-12-23] MEDS: Apixaban 5 MG TABLET PO ×2 (09:57→20:52)
[2023-12-23] MEDS: chlorproMAZINE HCl 25 MG TABLET 50 MG PO ×2 (09:57→15:11)
[2023-12-23] MEDS: Nitrofurantoin Monohyd/M-Cryst 100 MG CAPSULE PO ×2 (09:57→20:53)
[2023-12-23] MEDS: metFORMIN HCl ER 500 MG TAB.ER.24H PO (09:57)
[2023-12-23] MEDS: Multivitamin TABLET 1 TAB PO (09:57)
[2023-12-23] MEDS: atenoloL 25 MG TABLET PO (09:57)
[2023-12-23] MEDS: metroNIDAZOLE 0.75 % Gel 45 GM TUBE 1 APPL TOPICAL (09:59)
[2023-12-23] MEDS: Mineral Oil/Petrolatum,White 106 GM Tube 1 APPL TOPICAL (10:00)
[2023-12-23] MEDS: Hydrocortisone 1 % Cream 28.35 GM TUBE 1 APPL TOPICAL (10:00)
[2023-12-23] MEDS: Nicotine Polacrilex 2 MG GUM 4 MG BUCCAL (15:09)
--- NOTE | 2023-12-23 15:45 | P.PNPSI_ITS ---
Subjective Subjective Date of Service: 12/23/23 Reason For Visit: manic aggressive Subjective Notes: Conditional Voluntary Healthcare Proxy: No Guardianship: No Medical Problems Affecting Mental Status: No Interim History: Sleep improved. Appropriate call with father and tw this a.m. Will trial a return to phone use. Mother visited. Less agitated, but with anxiety, apprehension, fear, depressive sx, delusional content. At one point with tw she was loud and confrontive but redirected well and accepted support, Respiratory therapy consult is much appreciated. Pt will have 2L O2 for HS tonight as she refuses CPAP. Urology consult ordered for ? need for prophylactic abx use for recurrent UTI Medication Compliance: Yes Side effects from medications: No Attending Groups: No Review of Systems Medical Review of Systems: unchanged Review of Systems Review of Systems venous dermatitis O2 sat 91-98% per team eval chronic UTI, BV Mental Status Exam Mental Status Exam Patient Appearance: Fatigued Patient Orientation: Person and Place Level of Consciousness: Alert Patient Behavior: Appropriate, Talkative, Cooperative, Distractible, Confused and Good Eye Contact Mood Description: Calm Affect Description: Labile Patient Cognition Impaired: Yes Ability to Follow Directions: Good Speech Pattern: Spontaneous Speech Memory Description: Remote Impaired Hallucinations: None Delusions: Grandiose and Present Perceptual Disturbances: Derealization Thought Process: Illogical and Distracted Thought Content: positive for Flight of Ideas, positive for Circumstantial, positive for Perseveration, positive for Loose Associations, positive for Tangential and positive for Disorganized Depressive Symptoms: Insomnia, Difficulty Sleeping, Increased Fatigue and Low Self Esteem Judgement: Poor Diagnostics Vital Signs (24Hr): Vital Signs - 24 hr 12/22/23 21:50 12/23/23 09:27 Temperature 98.3 F 97.8 F Pulse Rate 97 102 H Respiratory Rate 16 Blood Pressure 147/79 H 135/80 Pulse Oximetry 97 Oxygen Delivery Method Room Air BMI result Body Mass Index 62.5 Labs 12/21/23 21:10 12/21/23 21:10 Labs: Laboratory Results - last 48 hr 12/21/23 12/21/23 12/22/23 21:10 23:57 08:50 WBC 8.5 RBC 4.25 Hgb 11.8 L Hct 36.4 L MCV 85.6 MCH 27.8 MCHC 32.4 RDW 14.3 Plt Count 181 MPV 9.9 Immature Gran % (Auto) 0.7 H Neut % (Auto) 62.0 Lymph % (Auto) 26.9 [place] % (Auto) 7.8 Eos % (Auto) 1.9 Baso % (Auto) 0.7 Lymph # (Auto) 2.3 [place] # (Auto) 0.7 Eos # (Auto) 0.2 Baso # (Auto) 0.1 Abs Immat Gran (auto) 0.06 H Absolute Neuts (auto) 5.3 Absolute Nucleated RBC 0.000 Nucleated RBC % (auto) 0.0 Sodium 143 Potassium 3.8 Chloride 102 Carbon Dioxide 31 H Anion Gap 14 BUN 14 Creatinine 0.61 Estim Creat Clear Calc 250.9 Estimated GFR > 60 POC Glucose 115 Random Glucose 163 H Lactic Acid 2.5 H* 2.2 H* Calcium 9.9 Total Bilirubin 0.4 AST 12 ALT 14 Alkaline Phosphatase 63 Total Protein 7.4 Albumin 4.4 12/22/23 12/23/23 22:19 09:48 WBC RBC Hgb Hct MCV MCH MCHC RDW Plt Count MPV Immature Gran % (Auto) Neut % (Auto) Lymph % (Auto) [place] % (Auto) Eos % (Auto) Baso % (Auto) Lymph # (Auto) [place] # (Auto) Eos # (Auto) Baso # (Auto) Abs Immat Gran (auto) Absolute Neuts (auto) Absolute Nucleated RBC Nucleated RBC % (auto) Sodium Potassium Chloride Carbon Dioxide Anion Gap BUN Creatinine Estim Creat Clear Calc Estimated GFR POC Glucose 100 111 Random Glucose Lactic Acid Calcium Total Bilirubin AST ALT Alkaline Phosphatase Total Protein Albumin Medications Medications Current Medications Acetaminophen (Acetaminophen 325 Mg Tablet) 650 mg PO Q6H PRN PRN Reason: Headache/Pain Mild Scale (1-3) Last Admin: 12/05/23 20:46 Dose: 650 mg Al Hydroxide/Mg Hydroxide (Magnesium Hydrox/Alum Hydrox 30 Ml Oral.Susp) 30 ml PO Q6H PRN PRN Reason: Heartburn/Nausea Last Admin: 11/29/23 22:00 Dose: 30 ml Apixaban (Apixaban 5 Mg Tablet) 5 mg PO BID [facility] Last Admin: 12/23/23 09:57 Dose: 5 mg Atenolol (Atenolol 25 Mg Tablet) 25 mg PO DAILY [facility]; Protocol Last Admin: 12/23/23 09:57 Dose: 25 mg Benzocaine (Throat Lozenge, Medicated Lozenge) 1 lozenge MUCOUS MEM Q2H PRN PRN Reason: Sore Throat Chlorpromazine HCl (Chlorpromazine Hcl 25 Mg Tablet) 50 mg PO BID@0900,1500 [facility] Last Admin: 12/23/23 15:11 Dose: 50 mg Chlorpromazine HCl (Chlorpromazine Hcl 100 Mg Tablet) 100 mg PO BEDTIME [facility] Last Admin: 12/22/23 22:31 Dose: 100 mg Chlorpromazine HCl (Chlorpromazine Hcl 100 Mg Tablet) 100 mg PO BID PRN PRN Reason: psychosis, agitation Divalproex Sodium (Divalproex Sodium Sprinkles 125 Mg Cap.Spr) 1,500 mg PO BID [facility] Last Admin: 12/23/23 09:55 Dose: 1,500 mg Docusate Sodium (Docusate Sodium 100 Mg Capsule) 100 mg PO BEDTIME [facility] Last Admin: 12/22/23 22:31 Dose: 100 mg Furosemide (Furosemide 40 Mg Tablet) 40 mg PO DAILY [facility]; Protocol Last Admin: 12/23/23 09:57 Dose: 40 mg Hydrocortisone (Hydrocortisone 1 % Cream 28.35 Gm Tube) 1 appl TOPICAL BID [facility]; Protocol Last Admin: 12/23/23 10:00 Dose: 1 appl Hydroxyzine HCl (Hydroxyzine Hcl 25 Mg Tablet) 25 mg PO Q6H PRN PRN Reason: Anxiety Last Admin: 12/21/23 16:38 Dose: 25 mg Lactic Acid (Ammonium Lactate 12 % Lotion 226 Gm Bottle) 1 appl TOPICAL BID PRN; Protocol PRN Reason: Rash Lamotrigine (Lamotrigine 25 Mg Tablet) 25 mg PO BEDTIME [facility] Last Admin: 12/22/23 22:32 Dose: 25 mg Lidocaine (Lidocaine 4 % Patch Adh..Patch) 1 patch TRANSDERMA DAILY [facility]; Protocol Last Admin: 12/23/23 10:04 Dose: Not Given Lorazepam (Lorazepam 1 Mg Tablet) 1 mg PO BEDTIME PRN PRN Reason: insomnia,anxiety,agitation Last Admin: 12/21/23 00:43 Dose: 1 mg Magnesium Hydroxide (Milk Of Magnesia 30 Ml Oral.Susp) 30 ml PO DAILY PRN PRN Reason: Constipation Last Admin: 12/18/23 10:35 Dose: 30 ml Metformin HCl (Metformin Hcl Er 500 Mg Tab.Er.24h) 500 mg PO DAILY [facility] Last Admin: 12/23/23 09:57 Dose: 500 mg Metronidazole (Metronidazole 0.75 % Gel 45 Gm Tube) 1 appl TOPICAL DAILY [facility] Last Admin: 12/23/23 09:59 Dose: 1 appl Multi-Ingred Cream/Lotion/Oil/Oint (Mineral Oil/Petrolatum,White 106 Gm Tube) 1 appl TOPICAL BID [facility] Last Admin: 12/23/23 10:00 Dose: 1 appl Multivitamins/Vitamin C (Multivitamin Tablet) 1 tab PO DAILY [facility] Last Admin: 12/23/23 09:57 Dose: 1 tab Nicotine (Nicotine 21 Mg Patch.Td24) 21 mg TRANSDERMA DAILY PRN PRN Reason: smoking cessation Nicotine Polacrilex (Nicotine Polacrilex 2 Mg Gum) 4 mg BUCCAL Q2H PRN PRN Reason: Nicotine Cravings Last Admin: 12/23/23 15:09 Dose: 4 mg Nitrofurantoin Macrocrystals (Nitrofurantoin Monohyd/M-Cryst 100 Mg Capsule) 100 mg PO BID [facility] Last Admin: 12/23/23 09:57 Dose: 100 mg Pt Own (Culturelle (Probiotics 1 Cap)) 1 cap PO DAILY [facility] Last Admin: 12/23/23 09:59 Dose: 1 cap Nystatin (Nystatin Powder 15 Gm Bottle) 1 appl TOPICAL BID PRN; Protocol PRN Reason: Rash Olanzapine (Olanzapine 5 Mg Tablet) 5 mg PO TID PRN PRN Reason: agitation Last Admin: 12/21/23 16:38 Dose: 5 mg Paliperidone Palmitate (Paliperidone Palmitate 234 Mg/1.5 Ml Syringe) 234 mg IM Q30D [facility] Last Admin: 12/08/23 16:45 Dose: 234 mg Trazodone HCl (Trazodone Hcl 50 Mg Tablet) 50 mg PO BEDTIME MRX1 PRN PRN Reason: Insomnia Last Admin: 12/15/23 22:21 Dose: 50 mg Allergies Allergies Allergy/AdvReac Type Severity Reaction Status Date / Time kiwi [KIWI] Allergy Mild HIVES Verified 11/21/23 05:49 mold [MOLD EXTRACTS*] Allergy Mild HIVES Verified 11/21/23 05:49 Assessment & Plan Assessment & Plan (1) Schizoaffective disorder, bipolar type: Status: Acute Code(s): F25.0 - Schizoaffective disorder, bipolar type (2) Venous stasis: Status: Acute Code(s): I87.8 - Other specified disorders of veins Assessment and Plan: Cellulitis mimic Po Doxycycline for 10 days and topical steroids cover possible cellulitis superinfection hx of :Sepsis concerns with tachycardia and tachypnea. (not current 12/03/23) Treat venous stasis with elevation Follow with hospitalists as I do not assess this patients disposition ( am seeing on psychiatry. Check CBC unremarkable.) (3) Chronic cellulitis: Status: Acute Code(s): L03.90 - Cellulitis, unspecified Plan 12/01/23: Continue current tx and plan 12/02/23: Continue current plan and tx Change Chlorpromazine daytime doses to prn. 12/03/23 - seems more labile with mother present - reassuring eval by hospitalist today- they are following closely with us but encouraging and supporting patient with compliance with stockings and leg elevation seem paramount 12/04/23- limited mobility did wear kenzie stockings- but won't wear slippers/shoes- difficulty raising her feet up - ongoing hypersexual content of thought/somatic preoccupation of PCOS- wanting to sign 3d 12/05/23 Patient mostly in her room limited mobility somatic preoccupations patient did sign a 3 day unrealistic expectation regarding outpatient setting 12/08/23 Change Chlorpromazine 100 mg HS to prn Decrease Valproate from 3000 mg daily to 2000 mg daily Sustenna 234 mg IM given today by team. 12/09/23 Continue to monitor for daytime sedation. 12/11/23 Continue treatment 12/12/23 Sx of bacterial vaginosis-antibiotic initiated. 12/14/23: Labs ordered for the a.m. 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 Patient labile episodes of being expansive overwhelmed anxiety times somatic paranoid delusional material did receive Invega injection 1 week ago should be a therapeutic dose unfortunately has. 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 Metronidazole gel QD for BV Cris Carballo's consult much appreciated. 01/01 O2 2L at HS Continue current regime Respiratory therapy consult much appreciated. Informed Consent: does not understand Reason for continued inpatient stay Substantial Risk for: rapid decompensation and med/psych decompensation Time Spent With Patient Time: Total time managing care of this patient today ____ minutes.
--- NOTE | 2023-12-23 16:51 | PC.RT ---
Confirmed location of concentrator in patient assessment room. Relayed to two nurses. Called up to unit aide afterwards to ensure they would have a sitter for Ms. Cantu
[2023-12-23 20:00] VITALS: BP 109/71; PULSE 84; RESP 18; TEMP 36.4; O2SAT 99
[2023-12-23] MEDS: Docusate Sodium 100 MG CAPSULE PO (20:52)
[2023-12-23] MEDS: OLANZapine 5 MG TABLET PO (20:52)
[2023-12-23] MEDS: lamoTRIgine 25 MG TABLET PO (20:52)
[2023-12-23] MEDS: LORazepam 1 MG TABLET PO (20:52)
[2023-12-23] MEDS: traZODone HCL 50 MG TABLET PO (20:52)
[2023-12-23] MEDS: chlorproMAZINE HCl 100 MG TABLET PO (20:53)
[2023-12-23 21:17] LABS: Glucose, Whole Blood 115 mg/dL (60-115)
[2023-12-24 07:31] VITALS: BP 139/71; PULSE 102; RESP 18; TEMP 36.5; O2SAT 98
[2023-12-24] MEDS: chlorproMAZINE HCl 25 MG TABLET 50 MG PO ×2 (07:36→14:39)
[2023-12-24] MEDS: Nitrofurantoin Monohyd/M-Cryst 100 MG CAPSULE PO ×2 (07:36→21:11)
[2023-12-24] MEDS: Furosemide 40 MG TABLET PO (07:36)
[2023-12-24] MEDS: Apixaban 5 MG TABLET PO ×2 (07:36→21:11)
[2023-12-24] MEDS: Multivitamin TABLET 1 TAB PO (07:36)
[2023-12-24] MEDS: metFORMIN HCl ER 500 MG TAB.ER.24H PO (07:36)
[2023-12-24] MEDS: atenoloL 25 MG TABLET PO (07:37)
[2023-12-24] MEDS: Divalproex Sodium Sprinkles 125 MG CAP.DR.SPR 1500 MG PO ×2 (07:39→20:48)
[2023-12-24 08:06] LABS: Glucose, Whole Blood 113 mg/dL (60-115)
[2023-12-24] MEDS: Hydrocortisone 1 % Cream 28.35 GM TUBE 1 APPL TOPICAL (08:24)
[2023-12-24] MEDS: Mineral Oil/Petrolatum,White 106 GM Tube 1 APPL TOPICAL (08:24)
[2023-12-24] MEDS: metroNIDAZOLE 0.75 % Gel 45 GM TUBE 1 APPL TOPICAL (08:28)
[2023-12-24 10:05] VITALS: BP 115/69; PULSE 80; RESP 20; TEMP 36.5; O2SAT 98
--- NOTE | 2023-12-24 10:43 | P.PNPSI_ITS ---
Subjective Subjective Date of Service: 12/24/23 Reason For Visit: manic aggressive Interim History: Met with patient; discussed with team; reviewed chart Disorganized in speech and behavior; sexually preoccupied, making sexualized comments to staff. Mental Status Exam Mental Status Exam Patient Appearance: Unkempt Patient Orientation: Person and Place Level of Consciousness: Awake and Alert Patient Behavior: Talkative, Cooperative, Distractible, Confused and Good Eye Contact Behavior Comments: Disorganized; making sexually inappropriate comments to staff; currently calm but intermittently starts yelling though quickly redirectable Mood Description: Calm Affect Description: Labile Patient Cognition Impaired: Yes Ability to Follow Directions: Good Speech Pattern: Spontaneous Speech Memory Description: Remote Impaired Hallucinations: None Delusions: Grandiose and Present Perceptual Disturbances: Derealization Thought Process: Illogical and Distracted Thought Content: positive for Flight of Ideas, positive for Circumstantial, positive for Perseveration, positive for Loose Associations, positive for Tangential and positive for Disorganized Depressive Symptoms: Insomnia, Difficulty Sleeping, Increased Fatigue and Low Self Esteem Judgement: Poor Diagnostics Vital Signs (24Hr): Vital Signs - 24 hr 12/23/23 20:00 12/24/23 07:31 12/24/23 10:05 Temperature 97.6 F 97.7 F 97.7 F Pulse Rate 84 102 H 80 Respiratory Rate 18 18 20 Blood Pressure 109/71 139/71 115/69 Pulse Oximetry 99 98 98 Oxygen Delivery Method Room Air Room Air Room Air BMI result Body Mass Index 62.5 Labs 12/21/23 21:10 12/21/23 21:10 Labs: Laboratory Results - last 48 hr 12/22/23 12/23/23 12/23/23 22:19 09:48 21:11 POC Glucose 100 111 115 12/24/23 08:03 POC Glucose 113 Medications Medications Current Medications Acetaminophen (Acetaminophen 325 Mg Tablet) 650 mg PO Q6H PRN PRN Reason: Headache/Pain Mild Scale (1-3) Last Admin: 12/05/23 20:46 Dose: 650 mg Al Hydroxide/Mg Hydroxide (Magnesium Hydrox/Alum Hydrox 30 Ml Oral.Susp) 30 ml PO Q6H PRN PRN Reason: Heartburn/Nausea Last Admin: 11/29/23 22:00 Dose: 30 ml Apixaban (Apixaban 5 Mg Tablet) 5 mg PO BID [facility] Last Admin: 12/24/23 07:36 Dose: 5 mg Atenolol (Atenolol 25 Mg Tablet) 25 mg PO DAILY [facility]; Protocol Last Admin: 12/24/23 07:37 Dose: 25 mg Benzocaine (Throat Lozenge, Medicated Lozenge) 1 lozenge MUCOUS MEM Q2H PRN PRN Reason: Sore Throat Chlorpromazine HCl (Chlorpromazine Hcl 25 Mg Tablet) 50 mg PO BID@0900,1500 [facility] Last Admin: 12/24/23 07:36 Dose: 50 mg Chlorpromazine HCl (Chlorpromazine Hcl 100 Mg Tablet) 100 mg PO BEDTIME [facility] Last Admin: 12/23/23 20:53 Dose: 100 mg Chlorpromazine HCl (Chlorpromazine Hcl 100 Mg Tablet) 100 mg PO BID PRN PRN Reason: psychosis, agitation Divalproex Sodium (Divalproex Sodium Sprinkles 125 Mg Cap.DrJcSpr) 1,500 mg PO BID [facility] Last Admin: 12/24/23 07:39 Dose: 1,500 mg Docusate Sodium (Docusate Sodium 100 Mg Capsule) 100 mg PO BEDTIME [facility] Last Admin: 12/23/23 20:52 Dose: 100 mg Furosemide (Furosemide 40 Mg Tablet) 40 mg PO DAILY [facility]; Protocol Last Admin: 12/24/23 07:36 Dose: 40 mg Hydrocortisone (Hydrocortisone 1 % Cream 28.35 Gm Tube) 1 appl TOPICAL BID [facility]; Protocol Last Admin: 12/24/23 08:24 Dose: 1 appl Hydroxyzine HCl (Hydroxyzine Hcl 25 Mg Tablet) 25 mg PO Q6H PRN PRN Reason: Anxiety Last Admin: 12/21/23 16:38 Dose: 25 mg Lactic Acid (Ammonium Lactate 12 % Lotion 226 Gm Bottle) 1 appl TOPICAL BID PRN; Protocol PRN Reason: Rash Lamotrigine (Lamotrigine 25 Mg Tablet) 25 mg PO BEDTIME [facility] Last Admin: 12/23/23 20:52 Dose: 25 mg Lidocaine (Lidocaine 4 % Patch Adh..Patch) 1 patch TRANSDERMA DAILY [facility]; Protocol Last Admin: 12/24/23 08:26 Dose: Not Given Lorazepam (Lorazepam 1 Mg Tablet) 1 mg PO BEDTIME PRN PRN Reason: insomnia,anxiety,agitation Last Admin: 12/23/23 20:52 Dose: 1 mg Magnesium Hydroxide (Milk Of Magnesia 30 Ml Oral.Susp) 30 ml PO DAILY PRN PRN Reason: Constipation Last Admin: 12/18/23 10:35 Dose: 30 ml Metformin HCl (Metformin Hcl Er 500 Mg Tab.Er.24h) 500 mg PO DAILY [facility] Last Admin: 12/24/23 07:36 Dose: 500 mg Metronidazole (Metronidazole 0.75 % Gel 45 Gm Tube) 1 appl TOPICAL DAILY [facility] Last Admin: 12/24/23 08:28 Dose: 1 appl Multi-Ingred Cream/Lotion/Oil/Oint (Mineral Oil/Petrolatum,White 106 Gm Tube) 1 appl TOPICAL BID [facility] Last Admin: 12/24/23 08:24 Dose: 1 appl Multivitamins/Vitamin C (Multivitamin Tablet) 1 tab PO DAILY [facility] Last Admin: 12/24/23 07:36 Dose: 1 tab Nicotine (Nicotine 21 Mg Patch.Td24) 21 mg TRANSDERMA DAILY PRN PRN Reason: smoking cessation Nicotine Polacrilex (Nicotine Polacrilex 2 Mg Gum) 4 mg BUCCAL Q2H PRN PRN Reason: Nicotine Cravings Last Admin: 12/23/23 15:09 Dose: 4 mg Nitrofurantoin Macrocrystals (Nitrofurantoin Monohyd/M-Cryst 100 Mg Capsule) 100 mg PO BID [facility] Last Admin: 12/24/23 07:36 Dose: 100 mg Pt Own (Culturelle (Probiotics 1 Cap)) 1 cap PO DAILY [facility] Last Admin: 12/24/23 08:24 Dose: 1 cap Nystatin (Nystatin Powder 15 Gm Bottle) 1 appl TOPICAL BID PRN; Protocol PRN Reason: Rash Olanzapine (Olanzapine 5 Mg Tablet) 5 mg PO TID PRN PRN Reason: agitation Last Admin: 12/23/23 20:52 Dose: 5 mg Paliperidone Palmitate (Paliperidone Palmitate 234 Mg/1.5 Ml Syringe) 234 mg IM Q30D [facility] Last Admin: 12/08/23 16:45 Dose: 234 mg Trazodone HCl (Trazodone Hcl 50 Mg Tablet) 50 mg PO BEDTIME MRX1 PRN PRN Reason: Insomnia Last Admin: 12/23/23 20:52 Dose: 50 mg Allergies Allergies Allergy/AdvReac Type Severity Reaction Status Date / Time kiwi [KIWI] Allergy Mild HIVES Verified 11/21/23 05:49 mold [MOLD EXTRACTS*] Allergy Mild HIVES Verified 11/21/23 05:49 Assessment & Plan Assessment & Plan (1) Schizoaffective disorder, bipolar type: Status: Acute Code(s): F25.0 - Schizoaffective disorder, bipolar type (2) Venous stasis: Status: Acute Code(s): I87.8 - Other specified disorders of veins Assessment and Plan: Cellulitis mimic Po Doxycycline for 10 days and topical steroids cover possible cellulitis superinfection hx of :Sepsis concerns with tachycardia and tachypnea. (not current 12/03/23) Treat venous stasis with elevation Follow with hospitalists as I do not assess this patients disposition ( am seeing on psychiatry. Check CBC unremarkable.) (3) Chronic cellulitis: Status: Acute Code(s): L03.90 - Cellulitis, unspecified Plan 12/01/23: Continue current tx and plan 12/02/23: Continue current plan and tx Change Chlorpromazine daytime doses to prn. 12/03/23 - seems more labile with mother present - reassuring eval by hospitalist today- they are following closely with us but encouraging and supporting patient with compliance with stockings and leg elevation seem paramount 12/04/23- limited mobility did wear kenzie stockings- but won't wear slippers/shoes- difficulty raising her feet up - ongoing hypersexual content of thought/somatic preoccupation of PCOS- wanting to sign 3d 12/05/23 Patient mostly in her room limited mobility somatic preoccupations patient did sign a 3 day unrealistic expectation regarding outpatient setting 12/08/23 Change Chlorpromazine 100 mg HS to prn Decrease Valproate from 3000 mg daily to 2000 mg daily Sustenna 234 mg IM given today by team. 12/09/23 Continue to monitor for daytime sedation. 12/11/23 Continue treatment 12/12/23 Sx of bacterial vaginosis-antibiotic initiated. 12/14/23: Labs ordered for the a.m. 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 Patient labile episodes of being expansive overwhelmed anxiety times somatic paranoid delusional material did receive Invega injection 1 week ago should be a therapeutic dose unfortunately has. 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 Metronidazole gel QD for BV Cris Carballo's consult much appreciated. 01/01 O2 2L at HS Continue current regime Respiratory therapy consult much appreciated. 12/23 disorganized in speech and behavior; making sexualized comments to staff Patient educated on: diagnosis Informed Consent: does not understand Reason for continued inpatient stay Substantial Risk for: inability to function Time Spent With Patient Time: Total time managing care of this patient today ____ minutes.
[2023-12-24 20:00] VITALS: BP 129/78; PULSE 93; RESP 16; TEMP 36.6; O2SAT 98
[2023-12-24 21:07] LABS: Glucose, Whole Blood 124 mg/dL (60-115)
[2023-12-24] MEDS: chlorproMAZINE HCl 100 MG TABLET PO (21:11)
[2023-12-24] MEDS: traZODone HCL 50 MG TABLET PO (21:11)
[2023-12-24] MEDS: Docusate Sodium 100 MG CAPSULE PO (21:11)
[2023-12-24] MEDS: OLANZapine 5 MG TABLET PO (21:11)
[2023-12-24] MEDS: LORazepam 1 MG TABLET PO (21:11)
[2023-12-24] MEDS: lamoTRIgine 25 MG TABLET PO (21:11)
[2023-12-25 08:00] VITALS: BP 144/82; PULSE 101; RESP 18; TEMP 36.9; O2SAT 97
[2023-12-25 10:36] VITALS: BP 144/87; PULSE 101
[2023-12-25] MEDS: Apixaban 5 MG TABLET PO ×2 (10:36→21:59)
[2023-12-25] MEDS: chlorproMAZINE HCl 25 MG TABLET 50 MG PO ×2 (10:36→15:14)
[2023-12-25] MEDS: metFORMIN HCl ER 500 MG TAB.ER.24H PO (10:36)
[2023-12-25] MEDS: atenoloL 25 MG TABLET PO (10:36)
[2023-12-25] MEDS: Divalproex Sodium Sprinkles 125 MG CAP.DR.SPR 1500 MG PO ×2 (10:36→21:59)
[2023-12-25 10:37] VITALS: BP 144/87
[2023-12-25] MEDS: Furosemide 40 MG TABLET PO (10:37)
[2023-12-25] MEDS: Nitrofurantoin Monohyd/M-Cryst 100 MG CAPSULE PO ×2 (10:37→21:59)
[2023-12-25] MEDS: Multivitamin TABLET 1 TAB PO (10:37)
--- NOTE | 2023-12-25 10:38 | HO.PSYCHPN ---
Subjective Subjective Date of Service: 12/25/23 Reason For Visit: manic aggressive Interim History: Met with patient; discussed with team Little more calm. Still disorganized in speech behavior but not intrusive. Interaction with marketing underwriter's a little nonsensical but innocuous Mental Status Exam Mental Status Exam Patient Appearance: Unkempt Patient Orientation: Person and Place Level of Consciousness: Awake and Alert Patient Behavior: Talkative, Cooperative, Distractible, Confused and Good Eye Contact Behavior Comments: Disorganized; making sexually inappropriate comments to staff; currently calm but intermittently starts yelling though quickly redirectable Mood Description: Calm Affect Description: Labile Patient Cognition Impaired: Yes Ability to Follow Directions: Good Speech Pattern: Spontaneous Speech Memory Description: Remote Impaired Hallucinations: None Delusions: Grandiose and Present Perceptual Disturbances: Derealization Thought Process: Illogical and Distracted Thought Content: positive for Flight of Ideas, positive for Circumstantial, positive for Perseveration, positive for Loose Associations, positive for Tangential and positive for Disorganized Depressive Symptoms: Insomnia, Difficulty Sleeping, Increased Fatigue and Low Self Esteem Judgement: Poor Diagnostics Vital Signs (24Hr): Vital Signs - 24 hr 12/24/23 20:00 12/25/23 08:00 Temperature 97.9 F 98.4 F Pulse Rate 93 101 H Respiratory Rate 16 18 Blood Pressure 129/78 144/82 H Pulse Oximetry 98 97 Oxygen Delivery Method Room Air Room Air BMI result Body Mass Index 62.5 Labs 12/21/23 21:10 12/21/23 21:10 Labs: Laboratory Results - last 48 hr 12/23/23 12/24/23 12/24/23 21:11 08:03 20:57 POC Glucose 115 113 124 H Medications Medications Current Medications Acetaminophen (Acetaminophen 325 Mg Tablet) 650 mg PO Q6H PRN PRN Reason: Headache/Pain Mild Scale (1-3) Last Admin: 12/05/23 20:46 Dose: 650 mg Al Hydroxide/Mg Hydroxide (Magnesium Hydrox/Alum Hydrox 30 Ml Oral.Susp) 30 ml PO Q6H PRN PRN Reason: Heartburn/Nausea Last Admin: 11/29/23 22:00 Dose: 30 ml Apixaban (Apixaban 5 Mg Tablet) 5 mg PO BID INOCENCIO Last Admin: 12/24/23 21:11 Dose: 5 mg Atenolol (Atenolol 25 Mg Tablet) 25 mg PO DAILY [facility]OC[facility]; Protocol Last Admin: 12/24/23 07:37 Dose: 25 mg Benzocaine (Throat Lozenge, Medicated Lozenge) 1 lozenge MUCOUS MEM Q2H PRN PRN Reason: Sore Throat Chlorpromazine HCl (Chlorpromazine Hcl 25 Mg Tablet) 50 mg PO BID@0900,1500 [facility] Last Admin: 12/24/23 14:39 Dose: 50 mg Chlorpromazine HCl (Chlorpromazine Hcl 100 Mg Tablet) 100 mg PO BEDTIME INOCENCIO Last Admin: 12/24/23 21:11 Dose: 100 mg Chlorpromazine HCl (Chlorpromazine Hcl 100 Mg Tablet) 100 mg PO BID PRN PRN Reason: psychosis, agitation Divalproex Sodium (Divalproex Sodium Sprinkles 125 Mg Cap.Dr.Spr) 1,500 mg PO BID INOCENCIO Last Admin: 12/24/23 20:48 Dose: 1,500 mg Docusate Sodium (Docusate Sodium 100 Mg Capsule) 100 mg PO BEDTIME INOCENCIO Last Admin: 12/24/23 21:11 Dose: 100 mg Furosemide (Furosemide 40 Mg Tablet) 40 mg PO DAILY [facility]; Protocol Last Admin: 12/24/23 07:36 Dose: 40 mg Hydrocortisone (Hydrocortisone 1 % Cream 28.35 Gm Tube) 1 appl TOPICAL BID INOCENCIO; Protocol Last Admin: 12/25/23 09:56 Dose: Not Given Hydroxyzine HCl (Hydroxyzine Hcl 25 Mg Tablet) 25 mg PO Q6H PRN PRN Reason: Anxiety Last Admin: 12/21/23 16:38 Dose: 25 mg Lactic Acid (Ammonium Lactate 12 % Lotion 226 Gm Bottle) 1 appl TOPICAL BID PRN; Protocol PRN Reason: Rash Lamotrigine (Lamotrigine 25 Mg Tablet) 25 mg PO BEDTIME INOCENCIO Last Admin: 12/24/23 21:11 Dose: 25 mg Lidocaine (Lidocaine 4 % Patch Adh..Patch) 1 patch TRANSDERMA DAILY [facility]; Protocol Last Admin: 12/25/23 09:56 Dose: Not Given Lorazepam (Lorazepam 1 Mg Tablet) 1 mg PO BEDTIME PRN PRN Reason: insomnia,anxiety,agitation Last Admin: 12/24/23 21:11 Dose: 1 mg Magnesium Hydroxide (Milk Of Magnesia 30 Ml Oral.Susp) 30 ml PO DAILY PRN PRN Reason: Constipation Last Admin: 12/18/23 10:35 Dose: 30 ml Metformin HCl (Metformin Hcl Er 500 Mg Tab.Er.24h) 500 mg PO DAILY [facility] Last Admin: 12/24/23 07:36 Dose: 500 mg Metronidazole (Metronidazole 0.75 % Gel 45 Gm Tube) 1 appl TOPICAL DAILY [facility] Last Admin: 12/24/23 08:28 Dose: 1 appl Multi-Ingred Cream/Lotion/Oil/Oint (Mineral Oil/Petrolatum,White 106 Gm Tube) 1 appl TOPICAL BID [facility] Last Admin: 12/25/23 09:57 Dose: Not Given Multivitamins/Vitamin C (Multivitamin Tablet) 1 tab PO DAILY [facility] Last Admin: 12/24/23 07:36 Dose: 1 tab Nicotine (Nicotine 21 Mg Patch.Td24) 21 mg TRANSDERMA DAILY PRN PRN Reason: smoking cessation Nicotine Polacrilex (Nicotine Polacrilex 2 Mg Gum) 4 mg BUCCAL Q2H PRN PRN Reason: Nicotine Cravings Last Admin: 12/23/23 15:09 Dose: 4 mg Nitrofurantoin Macrocrystals (Nitrofurantoin Monohyd/M-Cryst 100 Mg Capsule) 100 mg PO BID [facility] Last Admin: 12/24/23 21:11 Dose: 100 mg Pt Own (Culturelle (Probiotics 1 Cap)) 1 cap PO DAILY [facility] Last Admin: 12/25/23 09:56 Dose: Not Given Nystatin (Nystatin Powder 15 Gm Bottle) 1 appl TOPICAL BID PRN; Protocol PRN Reason: Rash Olanzapine (Olanzapine 5 Mg Tablet) 5 mg PO TID PRN PRN Reason: agitation Last Admin: 12/24/23 21:11 Dose: 5 mg Paliperidone Palmitate (Paliperidone Palmitate 234 Mg/1.5 Ml Syringe) 234 mg IM Q30D [facility] Last Admin: 12/08/23 16:45 Dose: 234 mg Trazodone HCl (Trazodone Hcl 50 Mg Tablet) 50 mg PO BEDTIME MRX1 PRN PRN Reason: Insomnia Last Admin: 12/24/23 21:11 Dose: 50 mg Allergies Allergies Allergy/AdvReac Type Severity Reaction Status Date / Time kiwi [KIWI] Allergy Mild HIVES Verified 11/21/23 05:49 mold [MOLD EXTRACTS*] Allergy Mild HIVES Verified 11/21/23 05:49 Assessment & Plan Assessment & Plan (1) Schizoaffective disorder, bipolar type: Status: Acute Code(s): F25.0 - Schizoaffective disorder, bipolar type (2) Venous stasis: Status: Acute Code(s): I87.8 - Other specified disorders of veins Assessment and Plan: Cellulitis mimic Po Doxycycline for 10 days and topical steroids cover possible cellulitis superinfection hx of :Sepsis concerns with tachycardia and tachypnea. (not current 12/03/23) Treat venous stasis with elevation Follow with hospitalists as I do not assess this patients disposition ( am seeing on psychiatry. Check CBC unremarkable.) (3) Chronic cellulitis: Status: Acute Code(s): L03.90 - Cellulitis, unspecified Plan 12/01/23: Continue current tx and plan 12/02/23: Continue current plan and tx Change Chlorpromazine daytime doses to prn. 12/03/23 - seems more labile with mother present - reassuring eval by hospitalist today- they are following closely with us but encouraging and supporting patient with compliance with stockings and leg elevation seem paramount 12/04/23- limited mobility did wear kenzie stockings- but won't wear slippers/shoes- difficulty raising her feet up - ongoing hypersexual content of thought/somatic preoccupation of PCOS- wanting to sign 3d 12/05/23 Patient mostly in her room limited mobility somatic preoccupations patient did sign a 3 day unrealistic expectation regarding outpatient setting 12/08/23 Change Chlorpromazine 100 mg HS to prn Decrease Valproate from 3000 mg daily to 2000 mg daily Sustenna 234 mg IM given today by team. 12/09/23 Continue to monitor for daytime sedation. 12/11/23 Continue treatment 12/12/23 Sx of bacterial vaginosis-antibiotic initiated. 12/14/23: Labs ordered for the a.m. 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 Patient labile episodes of being expansive overwhelmed anxiety times somatic paranoid delusional material did receive Invega injection 1 week ago should be a therapeutic dose unfortunately has. 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 Metronidazole gel QD for BV Cris Carballo's consult much appreciated. 01/01 O2 2L at HS Continue current regime Respiratory therapy consult much appreciated. 12/23 disorganized in speech and behavior; making sexualized comments to staff 12/24 little more calm today; still disorganized; continue current treatment plan Patient educated on: diagnosis Informed Consent: understands Reason for continued inpatient stay Substantial Risk for: inability to function Time Spent With Patient Time: Total time managing care of this patient today ____ minutes.
[2023-12-25] MEDS: Hydrocortisone 1 % Cream 28.35 GM TUBE 1 APPL TOPICAL (11:06)
[2023-12-25] MEDS: Mineral Oil/Petrolatum,White 106 GM Tube 1 APPL TOPICAL (11:06)
[2023-12-25] MEDS: metroNIDAZOLE 0.75 % Gel 45 GM TUBE 1 APPL TOPICAL (11:06)
[2023-12-25] MEDS: Nystatin Powder 15 GM BOTTLE 1 APPL TOPICAL (11:07)
[2023-12-25 15:18] LABS: Ammonia 37 umol/L (13-55)
[2023-12-25 15:25] LABS: Creatinine Clr Calc Pharmacy 225.2; Estimated Glomerular Filt Rate > 60
[2023-12-25 18:12] LABS: Valproate 110.8 mcg/mL (50.0-100.0)
--- NOTE | 2023-12-25 18:15 | PC.NURSE ---
Lab called [id number] with critical valproate level 110.8. Advised Dr. iMstry of this level and her upcoming 1500mg dose scheduled for 2100 tonight. He states that she should still continue with the 2100 full dose.
[2023-12-25 19:58] VITALS: BP 122/59; PULSE 90; RESP 16; TEMP 36.4; O2SAT 100
[2023-12-25] MEDS: Docusate Sodium 100 MG CAPSULE PO (21:58)
[2023-12-25] MEDS: traZODone HCL 50 MG TABLET PO (21:59)
[2023-12-25] MEDS: lamoTRIgine 25 MG TABLET PO (21:59)
[2023-12-25] MEDS: chlorproMAZINE HCl 100 MG TABLET PO (21:59)
[2023-12-25 22:02] LABS: Glucose, Whole Blood 143 mg/dL (60-115)
[2023-12-26 09:20] VITALS: BP 136/78; PULSE 91; RESP 18; TEMP 36.8; O2SAT 92
[2023-12-26 09:24] LABS: Glucose, Whole Blood 109 mg/dL (60-115)
[2023-12-26] MEDS: Divalproex Sodium Sprinkles 125 MG CAP.DR.SPR 1500 MG PO ×2 (09:35→20:33)
[2023-12-26] MEDS: Apixaban 5 MG TABLET PO ×2 (09:35→20:32)
[2023-12-26] MEDS: metFORMIN HCl ER 500 MG TAB.ER.24H PO (09:35)
[2023-12-26] MEDS: chlorproMAZINE HCl 25 MG TABLET 50 MG PO ×2 (09:35→15:28)
[2023-12-26] MEDS: Multivitamin TABLET 1 TAB PO (09:35)
[2023-12-26] MEDS: Nitrofurantoin Monohyd/M-Cryst 100 MG CAPSULE PO (09:35)
[2023-12-26] MEDS: atenoloL 25 MG TABLET PO (09:36)
[2023-12-26] MEDS: Furosemide 40 MG TABLET PO (09:36)
[2023-12-26] MEDS: Mineral Oil/Petrolatum,White 106 GM Tube 1 APPL TOPICAL (09:41)
[2023-12-26] MEDS: metroNIDAZOLE 0.75 % Gel 45 GM TUBE 1 APPL TOPICAL (09:41)
[2023-12-26] MEDS: Ammonium Lactate 12 % Lotion 226 GM BOTTLE 1 APPL TOPICAL (09:45)
[2023-12-26] MEDS: Hydrocortisone 1 % Cream 28.35 GM TUBE 1 APPL TOPICAL (09:47)
--- NOTE | 2023-12-26 10:56 | HO.PSYCHPN ---
Subjective Subjective Date of Service: 12/26/23 Reason For Visit: manic aggressive Subjective Notes: Conditional Voluntary Healthcare Proxy: Yes Guardianship: No Medical Problems Affecting Mental Status: No Interim History: Pt reports anxiety this a.m. and my dad is leaving the residential and going to a hotel Pt, father and tw talked. He will not leave the SNF today as he is not able to climb stairs and needs to put in a ramp. Call to [facility] to discuss if cost can be deferred as pt will need this as well. No progress as system does not have her [facility] number, just her [facility] number. Pt met with urology. She agrees to culture, KUB in the future when she has sx of UTI. Three treatable UTI's in one year are a parameter for prophylactic treatment. Valproate level 110.8. Pt reports she thinks her agitation is decreased when she uses oxygen at night. I just feel clearer. Medication Compliance: Yes Side effects from medications: No Attending Groups: No Review of Systems Acute medical concerns: No Medical Review of Systems: unchanged Review of Systems Review of Systems I feel good today. Mental Status Exam Mental Status Exam Patient Appearance: Fatigued Patient Orientation: Person, Place and Situation Level of Consciousness: Alert Patient Behavior: Talkative, Cooperative, Fearful (worries about her family), Fatigued and Good Eye Contact Mood Description: Anxious and Apprehensive Affect Description: Anxious and Apprehensive Patient Cognition Impaired: Yes Ability to Follow Directions: Good Speech Pattern: Spontaneous Speech Memory Description: Episodic Impaired Hallucinations: None Delusions: Present Perceptual Disturbances: Depersonalization and Derealization Thought Content: positive for Circumstantial and positive for Suicidal Ideation (denies) Depressive Symptoms: Increased Anxiety Judgement: Poor Diagnostics Vital Signs (24Hr): Vital Signs - 24 hr 12/25/23 19:58 12/26/23 09:20 Temperature 97.6 F 98.3 F Pulse Rate 90 91 Respiratory Rate 16 18 Blood Pressure 122/59 L 136/78 Pulse Oximetry 100 92 Oxygen Delivery Method Room Air Room Air BMI result Body Mass Index 62.5 Labs 12/21/23 21:10 12/25/23 14:56 Labs: Laboratory Results - last 48 hr 12/24/23 12/25/23 12/25/23 20:57 14:56 21:58 Creatinine 0.68 Estim Creat Clear Calc 225.2 Estimated GFR > 60 POC Glucose 124 H 143 H Ammonia 37 Valproic Acid 110.8 H* 12/26/23 09:20 Creatinine Estim Creat Clear Calc Estimated GFR POC Glucose 109 Ammonia Valproic Acid Medications Medications Current Medications Acetaminophen (Acetaminophen 325 Mg Tablet) 650 mg PO Q6H PRN PRN Reason: Headache/Pain Mild Scale (1-3) Last Admin: 12/05/23 20:46 Dose: 650 mg Al Hydroxide/Mg Hydroxide (Magnesium Hydrox/Alum Hydrox 30 Ml Oral.Susp) 30 ml PO Q6H PRN PRN Reason: Heartburn/Nausea Last Admin: 11/29/23 22:00 Dose: 30 ml Apixaban (Apixaban 5 Mg Tablet) 5 mg PO BID [facility] Last Admin: 12/26/23 09:35 Dose: 5 mg Atenolol (Atenolol 25 Mg Tablet) 25 mg PO DAILY [facility]; Protocol Last Admin: 12/26/23 09:36 Dose: 25 mg Benzocaine (Throat Lozenge, Medicated Lozenge) 1 lozenge MUCOUS MEM Q2H PRN PRN Reason: Sore Throat Chlorpromazine HCl (Chlorpromazine Hcl 25 Mg Tablet) 50 mg PO BID@0900,1500 [facility] Last Admin: 12/26/23 09:35 Dose: 50 mg Chlorpromazine HCl (Chlorpromazine Hcl 100 Mg Tablet) 100 mg PO BEDTIME [facility] Last Admin: 12/25/23 21:59 Dose: 100 mg Chlorpromazine HCl (Chlorpromazine Hcl 100 Mg Tablet) 100 mg PO BID PRN PRN Reason: psychosis, agitation Divalproex Sodium (Divalproex Sodium Sprinkles 125 Mg ) 1,500 mg PO BID [facility] Last Admin: 12/26/23 09:35 Dose: 1,500 mg Docusate Sodium (Docusate Sodium 100 Mg Capsule) 100 mg PO BEDTIME [facility] Last Admin: 12/25/23 21:58 Dose: 100 mg Furosemide (Furosemide 40 Mg Tablet) 40 mg PO DAILY [facility]; Protocol Last Admin: 12/26/23 09:36 Dose: 40 mg Hydrocortisone (Hydrocortisone 1 % Cream 28.35 Gm Tube) 1 appl TOPICAL BID [facility]; Protocol Last Admin: 12/26/23 09:47 Dose: 1 appl Hydroxyzine HCl (Hydroxyzine Hcl 25 Mg Tablet) 25 mg PO Q6H PRN PRN Reason: Anxiety Last Admin: 12/21/23 16:38 Dose: 25 mg Lactic Acid (Ammonium Lactate 12 % Lotion 226 Gm Bottle) 1 appl TOPICAL BID PRN; Protocol PRN Reason: Rash Last Admin: 12/26/23 09:45 Dose: 1 appl Lamotrigine (Lamotrigine 25 Mg Tablet) 25 mg PO BEDTIME [facility] Last Admin: 12/25/23 21:59 Dose: 25 mg Lidocaine (Lidocaine 4 % Patch Adh..Patch) 1 patch TRANSDERMA DAILY [facility]; Protocol Last Admin: 12/26/23 09:47 Dose: Not Given Lorazepam (Lorazepam 1 Mg Tablet) 1 mg PO BEDTIME PRN PRN Reason: insomnia,anxiety,agitation Last Admin: 12/24/23 21:11 Dose: 1 mg Magnesium Hydroxide (Milk Of Magnesia 30 Ml Oral.Susp) 30 ml PO DAILY PRN PRN Reason: Constipation Last Admin: 12/18/23 10:35 Dose: 30 ml Metformin HCl (Metformin Hcl Er 500 Mg Tab.Er.24h) 500 mg PO DAILY [facility] Last Admin: 12/26/23 09:35 Dose: 500 mg Metronidazole (Metronidazole 0.75 % Gel 45 Gm Tube) 1 appl TOPICAL DAILY [facility] Last Admin: 12/26/23 09:41 Dose: 1 appl Multi-Ingred Cream/Lotion/Oil/Oint (Mineral Oil/Petrolatum,White 106 Gm Tube) 1 appl TOPICAL BID [facility] Last Admin: 12/26/23 09:41 Dose: 1 appl Multivitamins/Vitamin C (Multivitamin Tablet) 1 tab PO DAILY [facility] Last Admin: 12/26/23 09:35 Dose: 1 tab Nicotine (Nicotine 21 Mg Patch.Td24) 21 mg TRANSDERMA DAILY PRN PRN Reason: smoking cessation Nicotine Polacrilex (Nicotine Polacrilex 2 Mg Gum) 4 mg BUCCAL Q2H PRN PRN Reason: Nicotine Cravings Last Admin: 12/23/23 15:09 Dose: 4 mg Pt Own (Culturelle (Probiotics 1 Cap)) 1 cap PO DAILY [facility] Last Admin: 12/26/23 09:40 Dose: 1 cap Nystatin (Nystatin Powder 15 Gm Bottle) 1 appl TOPICAL BID PRN; Protocol PRN Reason: Rash Last Admin: 12/25/23 11:07 Dose: 1 appl Olanzapine (Olanzapine 5 Mg Tablet) 5 mg PO TID PRN PRN Reason: agitation Last Admin: 12/24/23 21:11 Dose: 5 mg Paliperidone Palmitate (Paliperidone Palmitate 234 Mg/1.5 Ml Syringe) 234 mg IM Q30D [facility] Last Admin: 12/08/23 16:45 Dose: 234 mg Trazodone HCl (Trazodone Hcl 50 Mg Tablet) 50 mg PO BEDTIME MRX1 PRN PRN Reason: Insomnia Last Admin: 12/25/23 21:59 Dose: 50 mg Allergies Allergies Allergy/AdvReac Type Severity Reaction Status Date / Time kiwi [KIWI] Allergy Mild HIVES Verified 11/21/23 05:49 mold [MOLD EXTRACTS*] Allergy Mild HIVES Verified 11/21/23 05:49 Assessment & Plan Assessment & Plan (1) Schizoaffective disorder, bipolar type: Status: Acute Code(s): F25.0 - Schizoaffective disorder, bipolar type (2) Venous stasis: Status: Acute Code(s): I87.8 - Other specified disorders of veins Assessment and Plan: Cellulitis mimic Po Doxycycline for 10 days and topical steroids cover possible cellulitis superinfection hx of :Sepsis concerns with tachycardia and tachypnea. (not current 12/03/23) Treat venous stasis with elevation Follow with hospitalists as I do not assess this patients disposition ( am seeing on psychiatry. Check CBC unremarkable.) (3) Chronic cellulitis: Status: Acute Code(s): L03.90 - Cellulitis, unspecified Plan 12/01/23: Continue current tx and plan 12/02/23: Continue current plan and tx Change Chlorpromazine daytime doses to prn. 12/03/23 - seems more labile with mother present - reassuring eval by hospitalist today- they are following closely with us but encouraging and supporting patient with compliance with stockings and leg elevation seem paramount 12/04/23- limited mobility did wear kenzie stockings- but won't wear slippers/shoes- difficulty raising her feet up - ongoing hypersexual content of thought/somatic preoccupation of PCOS- wanting to sign 3d 12/05/23 Patient mostly in her room limited mobility somatic preoccupations patient did sign a 3 day unrealistic expectation regarding outpatient setting 12/08/23 Change Chlorpromazine 100 mg HS to prn Decrease Valproate from 3000 mg daily to 2000 mg daily Sustenna 234 mg IM given today by team. 12/09/23 Continue to monitor for daytime sedation. 12/11/23 Continue treatment 12/12/23 Sx of bacterial vaginosis-antibiotic initiated. 12/14/23: Labs ordered for the a.m. 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 Patient labile episodes of being expansive overwhelmed anxiety times somatic paranoid delusional material did receive Invega injection 1 week ago should be a therapeutic dose unfortunately has. 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 Metronidazole gel QD for BV Cris Carballo's consult much appreciated. 01/01 O2 2L at HS Continue current regime Respiratory therapy consult much appreciated. 12/23 disorganized in speech and behavior; making sexualized comments to staff 12/24 little more calm today; still disorganized; continue current treatment plan 12/26/23: Continue current plan. Urology consult much appreciated. Informed Consent: further education needed Reason for continued inpatient stay Substantial Risk for: rapid decompensation and med/psych decompensation Time Spent With Patient Time: Total time managing care of this patient today ____ minutes.
[2023-12-26] MEDS: Nicotine Polacrilex 2 MG GUM 4 MG BUCCAL (11:22)
[2023-12-26 20:00] VITALS: BP 145/83; PULSE 93; RESP 18; TEMP 36.7; O2SAT 95
[2023-12-26] MEDS: chlorproMAZINE HCl 25 MG TABLET PO (20:32)
[2023-12-26] MEDS: lamoTRIgine 25 MG TABLET PO (20:33)
[2023-12-26] MEDS: Docusate Sodium 100 MG CAPSULE PO (20:33)
[2023-12-26 20:40] LABS: Glucose, Whole Blood 152 mg/dL (60-115)
[2023-12-26 23:17] VITALS: O2SAT 98
[2023-12-27] MEDS: metFORMIN HCl ER 500 MG TAB.ER.24H PO (10:52)
[2023-12-27] MEDS: Multivitamin TABLET 1 TAB PO (10:52)
[2023-12-27] MEDS: Furosemide 40 MG TABLET PO (10:52)
[2023-12-27] MEDS: Apixaban 5 MG TABLET PO ×2 (10:52→20:36)
[2023-12-27] MEDS: Divalproex Sodium Sprinkles 125 MG CAP.DR.SPR 1500 MG PO ×2 (10:53→20:36)
[2023-12-27] MEDS: chlorproMAZINE HCl 25 MG TABLET 50 MG PO (10:55)
[2023-12-27 10:56] VITALS: BP 136/84
[2023-12-27] MEDS: atenoloL 25 MG TABLET PO (10:56)
[2023-12-27] MEDS: Hydrocortisone 1 % Cream 28.35 GM TUBE 1 APPL TOPICAL (11:02)
[2023-12-27 11:05] VITALS: BP 136/84; PULSE 112; RESP 20; TEMP 36.9; O2SAT 96
[2023-12-27 11:14] LABS: Glucose, Whole Blood 132 mg/dL (60-115)
--- NOTE | 2023-12-27 13:33 | HO.PSYCHPN ---
Subjective Subjective Date of Service: 12/27/23 Reason For Visit: manic aggressive Subjective Notes: Conditional Voluntary Healthcare Proxy: No Guardianship: No Medical Problems Affecting Mental Status: No Interim History: Pt discussed fears of having cancer, fears of not being able to go home. She had an appropriate conversation with her father, with some concern and confusion about his reported updates regarding his health. Mother visited this afternoon, pt with some agitation after the visit, shouting at tw x 3 about having and needing an emergency sonogram prior to delivery of her baby. Redirects with some reasonable discussion. Continues labile. Trialing ortho boots for more support in ambulation. Medication Compliance: Yes Side effects from medications: No Attending Groups: No Review of Systems Acute medical concerns: No Medical Review of Systems: unchanged Review of Systems Review of Systems Yes all other systems are reviewed and are negative Mental Status Exam Mental Status Exam Patient Appearance: Appropriate Patient Orientation: Person, Place and Situation Level of Consciousness: Alert Patient Behavior: Talkative, Cooperative, Fearful (worries about her family), Fatigued, Confused and Good Eye Contact Mood Description: Anxious, Labile and Apprehensive Affect Description: Labile Patient Cognition Impaired: Yes Ability to Follow Directions: Good Speech Pattern: Spontaneous Speech Memory Description: Episodic Impaired Hallucinations: None Delusions: Paranoid Ideation and Present Perceptual Disturbances: Depersonalization and Derealization Thought Process: Illogical, Distracted, Rumination and Confusion Thought Content: positive for Flight of Ideas, positive for Circumstantial, positive for Perseveration, positive for Tangential and positive for Suicidal Ideation (denies) Depressive Symptoms: Increased Anxiety, Increased Irritability, Unhappiness, Low Self Esteem and Difficulty Concentrating Abnormal Motor Activity Signs and Symptoms: Agitation Judgement: Poor Diagnostics Vital Signs (24Hr): Vital Signs - 24 hr 12/26/23 20:00 12/26/23 23:17 12/27/23 10:56 Temperature 98.0 F Pulse Rate 93 Respiratory Rate 18 Blood Pressure 145/83 H 136/84 Pulse Oximetry 95 98 Oxygen Delivery Method Room Air Nasal Cannula 12/27/23 11:05 Temperature 98.4 F Pulse Rate 112 H Respiratory Rate 20 Blood Pressure 136/84 Pulse Oximetry 96 Oxygen Delivery Method Room Air BMI result Body Mass Index 62.5 Labs 12/21/23 21:10 12/25/23 14:56 Labs: Laboratory Results - last 48 hr 12/25/23 12/25/23 12/26/23 14:56 21:58 09:20 Creatinine 0.68 Estim Creat Clear Calc 225.2 Estimated GFR > 60 POC Glucose 143 H 109 Ammonia 37 Valproic Acid 110.8 H* 12/26/23 12/27/23 20:35 11:11 Creatinine Estim Creat Clear Calc Estimated GFR POC Glucose 152 H 132 H Ammonia Valproic Acid Medications Medications Current Medications Acetaminophen (Acetaminophen 325 Mg Tablet) 650 mg PO Q6H PRN PRN Reason: Headache/Pain Mild Scale (1-3) Last Admin: 12/05/23 20:46 Dose: 650 mg Al Hydroxide/Mg Hydroxide (Magnesium Hydrox/Alum Hydrox 30 Ml Oral.Susp) 30 ml PO Q6H PRN PRN Reason: Heartburn/Nausea Last Admin: 11/29/23 22:00 Dose: 30 ml Apixaban (Apixaban 5 Mg Tablet) 5 mg PO BID [facility] Last Admin: 12/27/23 10:52 Dose: 5 mg Atenolol (Atenolol 25 Mg Tablet) 25 mg PO DAILY [facility]; Protocol Last Admin: 12/27/23 10:56 Dose: 25 mg Benzocaine (Throat Lozenge, Medicated Lozenge) 1 lozenge MUCOUS MEM Q2H PRN PRN Reason: Sore Throat Chlorpromazine HCl (Chlorpromazine Hcl 100 Mg Tablet) 100 mg PO BID PRN PRN Reason: psychosis, agitation Chlorpromazine HCl (Chlorpromazine Hcl 25 Mg Tablet) 75 mg PO 0900,1500,2100 [facility] Divalproex Sodium (Divalproex Sodium Sprinkles 125 Mg ) 1,500 mg PO BID [facility] Last Admin: 12/27/23 10:53 Dose: 1,500 mg Docusate Sodium (Docusate Sodium 100 Mg Capsule) 100 mg PO BEDTIME [facility] Last Admin: 12/26/23 20:33 Dose: 100 mg Furosemide (Furosemide 40 Mg Tablet) 40 mg PO DAILY [facility]; Protocol Last Admin: 12/27/23 10:52 Dose: 40 mg Hydrocortisone (Hydrocortisone 1 % Cream 28.35 Gm Tube) 1 appl TOPICAL BID [facility]; Protocol Last Admin: 12/27/23 11:02 Dose: 1 appl Hydroxyzine HCl (Hydroxyzine Hcl 25 Mg Tablet) 25 mg PO Q6H PRN PRN Reason: Anxiety Last Admin: 12/21/23 16:38 Dose: 25 mg Lactic Acid (Ammonium Lactate 12 % Lotion 226 Gm Bottle) 1 appl TOPICAL BID PRN; Protocol PRN Reason: Rash Last Admin: 12/26/23 09:45 Dose: 1 appl Lamotrigine (Lamotrigine 25 Mg Tablet) 25 mg PO BEDTIME [facility] Last Admin: 12/26/23 20:33 Dose: 25 mg Lidocaine (Lidocaine 4 % Patch Adh..Patch) 1 patch TRANSDERMA DAILY [facility]; Protocol Last Admin: 12/27/23 11:00 Dose: Not Given Lorazepam (Lorazepam 1 Mg Tablet) 1 mg PO BEDTIME PRN PRN Reason: insomnia,anxiety,agitation Last Admin: 12/24/23 21:11 Dose: 1 mg Magnesium Hydroxide (Milk Of Magnesia 30 Ml Oral.Susp) 30 ml PO DAILY PRN PRN Reason: Constipation Last Admin: 12/18/23 10:35 Dose: 30 ml Metformin HCl (Metformin Hcl Er 500 Mg Tab.Er.24h) 500 mg PO DAILY [facility] Last Admin: 12/27/23 10:52 Dose: 500 mg Metronidazole (Metronidazole 0.75 % Gel 45 Gm Tube) 1 appl TOPICAL DAILY [facility] Last Admin: 12/26/23 09:41 Dose: 1 appl Multi-Ingred Cream/Lotion/Oil/Oint (Mineral Oil/Petrolatum,White 106 Gm Tube) 1 appl TOPICAL BID [facility] Last Admin: 12/27/23 11:03 Dose: Not Given Multivitamins/Vitamin C (Multivitamin Tablet) 1 tab PO DAILY [facility] Last Admin: 12/27/23 10:52 Dose: 1 tab Nicotine (Nicotine 21 Mg Patch.Td24) 21 mg TRANSDERMA DAILY PRN PRN Reason: smoking cessation Nicotine Polacrilex (Nicotine Polacrilex 2 Mg Gum) 4 mg BUCCAL Q2H PRN PRN Reason: Nicotine Cravings Last Admin: 12/26/23 11:22 Dose: 2 mg Pt Own (Culturelle (Probiotics 1 Cap)) 1 cap PO DAILY [facility] Last Admin: 12/27/23 10:59 Dose: 1 cap Nystatin (Nystatin Powder 15 Gm Bottle) 1 appl TOPICAL BID PRN; Protocol PRN Reason: Rash Last Admin: 12/25/23 11:07 Dose: 1 appl Olanzapine (Olanzapine 5 Mg Tablet) 5 mg PO TID PRN PRN Reason: agitation Last Admin: 12/24/23 21:11 Dose: 5 mg Paliperidone Palmitate (Paliperidone Palmitate 234 Mg/1.5 Ml Syringe) 234 mg IM Q30D [facility] Last Admin: 12/08/23 16:45 Dose: 234 mg Trazodone HCl (Trazodone Hcl 50 Mg Tablet) 50 mg PO BEDTIME MRX1 PRN PRN Reason: Insomnia Last Admin: 12/25/23 21:59 Dose: 50 mg Allergies Allergies Allergy/AdvReac Type Severity Reaction Status Date / Time kiwi [KIWI] Allergy Mild HIVES Verified 11/21/23 05:49 mold [MOLD EXTRACTS*] Allergy Mild HIVES Verified 11/21/23 05:49 Assessment & Plan Assessment & Plan (1) Schizoaffective disorder, bipolar type: Status: Acute Code(s): F25.0 - Schizoaffective disorder, bipolar type (2) Venous stasis: Status: Acute Code(s): I87.8 - Other specified disorders of veins Assessment and Plan: Cellulitis mimic Po Doxycycline for 10 days and topical steroids cover possible cellulitis superinfection hx of :Sepsis concerns with tachycardia and tachypnea. (not current 12/03/23) Treat venous stasis with elevation Follow with hospitalists as I do not assess this patients disposition ( am seeing on psychiatry. Check CBC unremarkable.) (3) Chronic cellulitis: Status: Acute Code(s): L03.90 - Cellulitis, unspecified Plan 12/01/23: Continue current tx and plan 12/02/23: Continue current plan and tx Change Chlorpromazine daytime doses to prn. 12/03/23 - seems more labile with mother present - reassuring eval by hospitalist today- they are following closely with us but encouraging and supporting patient with compliance with stockings and leg elevation seem paramount 12/04/23- limited mobility did wear kenzie stockings- but won't wear slippers/shoes- difficulty raising her feet up - ongoing hypersexual content of thought/somatic preoccupation of PCOS- wanting to sign 3d 12/05/23 Patient mostly in her room limited mobility somatic preoccupations patient did sign a 3 day unrealistic expectation regarding outpatient setting 12/08/23 Change Chlorpromazine 100 mg HS to prn Decrease Valproate from 3000 mg daily to 2000 mg daily Sustenna 234 mg IM given today by team. 12/09/23 Continue to monitor for daytime sedation. 12/11/23 Continue treatment 12/12/23 Sx of bacterial vaginosis-antibiotic initiated. 12/14/23: Labs ordered for the a.m. 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 Patient labile episodes of being expansive overwhelmed anxiety times somatic paranoid delusional material did receive Invega injection 1 week ago should be a therapeutic dose unfortunately has. 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 Metronidazole gel QD for BV Cris Carballo's consult much appreciated. 01/01 O2 2L at HS Continue current regime Respiratory therapy consult much appreciated. 12/23 disorganized in speech and behavior; making sexualized comments to staff 12/24 little more calm today; still disorganized; continue current treatment plan 12/26/23: Continue current plan. Urology consult much appreciated. 12/26/22: Continue current regime/plan. Reason for continued inpatient stay Substantial Risk for: rapid decompensation and med/psych decompensation Time Spent With Patient Time: Total time managing care of this patient today ____ minutes.
[2023-12-27 19:37] VITALS: BP 128/78; PULSE 89; RESP 18; TEMP 36.3; O2SAT 93
[2023-12-27] MEDS: lamoTRIgine 25 MG TABLET PO (20:36)
[2023-12-27] MEDS: Docusate Sodium 100 MG CAPSULE PO (20:36)
[2023-12-27] MEDS: chlorproMAZINE HCl 25 MG TABLET 75 MG PO (20:44)
[2023-12-28 08:00] VITALS: BP 155/80; PULSE 87; RESP 20; TEMP 36.4; O2SAT 96
[2023-12-28 08:57] LABS: Glucose, Whole Blood 88 mg/dL (60-115)
[2023-12-28] MEDS: Divalproex Sodium Sprinkles 125 MG CAP.DR.SPR 1500 MG PO ×2 (09:32→21:06)
[2023-12-28] MEDS: Furosemide 40 MG TABLET PO (09:33)
[2023-12-28] MEDS: atenoloL 25 MG TABLET PO (09:33)
[2023-12-28] MEDS: Apixaban 5 MG TABLET PO ×2 (09:33→21:06)
[2023-12-28] MEDS: Multivitamin TABLET 1 TAB PO (09:33)
[2023-12-28] MEDS: metFORMIN HCl ER 500 MG TAB.ER.24H PO (09:33)
[2023-12-28] MEDS: metroNIDAZOLE 0.75 % Gel 45 GM TUBE 1 APPL TOPICAL (09:34)
[2023-12-28] MEDS: Mineral Oil/Petrolatum,White 106 GM Tube 1 APPL TOPICAL (09:34)
[2023-12-28] MEDS: Hydrocortisone 1 % Cream 28.35 GM TUBE 1 APPL TOPICAL (09:37)
[2023-12-28] MEDS: chlorproMAZINE HCl 25 MG TABLET 75 MG PO ×2 (09:48→14:58)
[2023-12-28] MEDS: OLANZapine 5 MG TABLET PO (15:34)
[2023-12-28] MEDS: hydrOXYzine HCL 25 MG TABLET PO (15:34)
--- NOTE | 2023-12-28 15:48 | P.PNPSI_ITS ---
Subjective Subjective Date of Service: 12/28/23 Reason For Visit: manic aggressive Subjective Notes: Conditional Voluntary Healthcare Proxy: Yes Guardianship: No Medical Problems Affecting Mental Status: No Interim History: Pt labile, calm, yet disorganized. Met with her at her request x 3. Reports having cancer, cellulitis, food poisoning, a broken bed, a loss of 60 lbs, risks of stalkers, and being electrocuted. Wanting to call family, continues with concern for their safety. Meeting with peers, some wandering. Discussed Clozapine trial with Dr. Argueta which may help cycling of mood. Declines her compression stockings today. Continues to request a sonogram. Medication Compliance: Yes Side effects from medications: No Attending Groups: No Review of Systems Acute medical concerns: No Medical Review of Systems: unchanged Review of Systems Review of Systems Yes all other systems are reviewed and are negative Mental Status Exam Mental Status Exam Patient Appearance: Appropriate Patient Orientation: Person, Place and Situation Level of Consciousness: Alert Patient Behavior: Talkative, Cooperative, Fearful (worries about her family), Fatigued, Confused and Good Eye Contact Mood Description: Anxious, Labile and Apprehensive Affect Description: Labile Patient Cognition Impaired: Yes Ability to Follow Directions: Good Speech Pattern: Spontaneous Speech Memory Description: Episodic Impaired Hallucinations: None Delusions: Paranoid Ideation and Present Perceptual Disturbances: Depersonalization and Derealization Thought Process: Illogical, Distracted, Rumination and Confusion Thought Content: positive for Flight of Ideas, positive for Circumstantial, positive for Perseveration, positive for Tangential and positive for Suicidal Ideation (denies) Depressive Symptoms: Increased Anxiety, Increased Irritability, Unhappiness, Low Self Esteem and Difficulty Concentrating Abnormal Motor Activity Signs and Symptoms: Agitation Judgement: Poor Diagnostics Vital Signs (24Hr): Vital Signs - 24 hr 12/27/23 19:37 12/28/23 08:00 Temperature 97.4 F 97.5 F Pulse Rate 89 87 Respiratory Rate 18 20 Blood Pressure 128/78 155/80 H Pulse Oximetry 93 96 Oxygen Delivery Method Room Air Room Air BMI result Body Mass Index 62.5 Labs 12/21/23 21:10 12/25/23 14:56 Labs: Laboratory Results - last 48 hr 12/26/23 12/27/23 12/28/23 20:35 11:11 08:53 POC Glucose 152 H 132 H 88 Medications Medications Current Medications Acetaminophen (Acetaminophen 325 Mg Tablet) 650 mg PO Q6H PRN PRN Reason: Headache/Pain Mild Scale (1-3) Last Admin: 12/05/23 20:46 Dose: 650 mg Al Hydroxide/Mg Hydroxide (Magnesium Hydrox/Alum Hydrox 30 Ml Oral.Susp) 30 ml PO Q6H PRN PRN Reason: Heartburn/Nausea Last Admin: 11/29/23 22:00 Dose: 30 ml Apixaban (Apixaban 5 Mg Tablet) 5 mg PO BID [facility] Last Admin: 12/28/23 09:33 Dose: 5 mg Atenolol (Atenolol 25 Mg Tablet) 25 mg PO DAILY [facility]; Protocol Last Admin: 12/28/23 09:33 Dose: 25 mg Benzocaine (Throat Lozenge, Medicated Lozenge) 1 lozenge MUCOUS MEM Q2H PRN PRN Reason: Sore Throat Benzocaine (Throat Lozenge, Medicated Lozenge) 1 lozenge MUCOUS MEM Q2H PRN PRN Reason: Sore Throat Chlorpromazine HCl (Chlorpromazine Hcl 100 Mg Tablet) 100 mg PO BID PRN PRN Reason: psychosis, agitation Chlorpromazine HCl (Chlorpromazine Hcl 25 Mg Tablet) 75 mg PO 0900,1500,2100 [facility] Last Admin: 12/28/23 14:58 Dose: 75 mg Divalproex Sodium (Divalproex Sodium Sprinkles 125 Mg Cap.) 1,500 mg PO BID [facility] Last Admin: 12/28/23 09:32 Dose: 1,500 mg Docusate Sodium (Docusate Sodium 100 Mg Capsule) 100 mg PO BEDTIME [facility] Last Admin: 12/27/23 20:36 Dose: 100 mg Furosemide (Furosemide 40 Mg Tablet) 40 mg PO DAILY [facility]; Protocol Last Admin: 12/28/23 09:33 Dose: 40 mg Hydrocortisone (Hydrocortisone 1 % Cream 28.35 Gm Tube) 1 appl TOPICAL BID [facility]; Protocol Last Admin: 12/28/23 09:37 Dose: 1 appl Hydroxyzine HCl (Hydroxyzine Hcl 25 Mg Tablet) 25 mg PO Q6H PRN PRN Reason: Anxiety Last Admin: 12/21/23 16:38 Dose: 25 mg Lactic Acid (Ammonium Lactate 12 % Lotion 226 Gm Bottle) 1 appl TOPICAL BID PRN; Protocol PRN Reason: Rash Last Admin: 12/26/23 09:45 Dose: 1 appl Lamotrigine (Lamotrigine 25 Mg Tablet) 25 mg PO BEDTIME [facility] Last Admin: 12/27/23 20:36 Dose: 25 mg Lidocaine (Lidocaine 4 % Patch Adh..Patch) 1 patch TRANSDERMA DAILY [facility]; Protocol Last Admin: 12/28/23 09:44 Dose: Not Given Lorazepam (Lorazepam 1 Mg Tablet) 1 mg PO BEDTIME PRN PRN Reason: insomnia,anxiety,agitation Last Admin: 12/24/23 21:11 Dose: 1 mg Magnesium Hydroxide (Milk Of Magnesia 30 Ml Oral.Susp) 30 ml PO DAILY PRN PRN Reason: Constipation Last Admin: 12/18/23 10:35 Dose: 30 ml Metformin HCl (Metformin Hcl Er 500 Mg Tab.Er.24h) 500 mg PO DAILY [facility] Last Admin: 12/28/23 09:33 Dose: 500 mg Metronidazole (Metronidazole 0.75 % Gel 45 Gm Tube) 1 appl TOPICAL DAILY [facility] Last Admin: 12/28/23 09:34 Dose: 1 appl Multi-Ingred Cream/Lotion/Oil/Oint (Mineral Oil/Petrolatum,White 106 Gm Tube) 1 appl TOPICAL BID [facility] Last Admin: 12/28/23 09:34 Dose: 1 appl Multi-Ingred Medicated Throat [place] (Throat [place], Medicated 177 Ml Bottle) 1 spray MUCOUS MEM Q2H PRN PRN Reason: Sore Throat Multivitamins/Vitamin C (Multivitamin Tablet) 1 tab PO DAILY [facility] Last Admin: 12/28/23 09:33 Dose: 1 tab Nicotine (Nicotine 21 Mg Patch.Td24) 21 mg TRANSDERMA DAILY PRN PRN Reason: smoking cessation Nicotine Polacrilex (Nicotine Polacrilex 2 Mg Gum) 4 mg BUCCAL Q2H PRN PRN Reason: Nicotine Cravings Last Admin: 12/26/23 11:22 Dose: 2 mg Pt Own (Culturelle (Probiotics 1 Cap)) 1 cap PO DAILY [facility] Last Admin: 12/28/23 09:38 Dose: Not Given Nystatin (Nystatin Powder 15 Gm Bottle) 1 appl TOPICAL BID PRN; Protocol PRN Reason: Rash Last Admin: 12/25/23 11:07 Dose: 1 appl Olanzapine (Olanzapine 5 Mg Tablet) 5 mg PO TID PRN PRN Reason: agitation Last Admin: 12/24/23 21:11 Dose: 5 mg Paliperidone Palmitate (Paliperidone Palmitate 234 Mg/1.5 Ml Syringe) 234 mg IM Q30D [facility] Last Admin: 12/08/23 16:45 Dose: 234 mg Trazodone HCl (Trazodone Hcl 50 Mg Tablet) 50 mg PO BEDTIME MRX1 PRN PRN Reason: Insomnia Last Admin: 12/25/23 21:59 Dose: 50 mg Allergies Allergies Allergy/AdvReac Type Severity Reaction Status Date / Time kiwi [KIWI] Allergy Mild HIVES Verified 11/21/23 05:49 mold [MOLD EXTRACTS*] Allergy Mild HIVES Verified 11/21/23 05:49 Assessment & Plan Assessment & Plan (1) Schizoaffective disorder, bipolar type: Status: Acute Code(s): F25.0 - Schizoaffective disorder, bipolar type (2) Venous stasis: Status: Acute Code(s): I87.8 - Other specified disorders of veins Assessment and Plan: Cellulitis mimic Po Doxycycline for 10 days and topical steroids cover possible cellulitis superinfection hx of :Sepsis concerns with tachycardia and tachypnea. (not current 12/03/23) Treat venous stasis with elevation Follow with hospitalists as I do not assess this patients disposition ( am seeing on psychiatry. Check CBC unremarkable.) (3) Chronic cellulitis: Status: Acute Code(s): L03.90 - Cellulitis, unspecified Plan 12/01/23: Continue current tx and plan 12/02/23: Continue current plan and tx Change Chlorpromazine daytime doses to prn. 12/03/23 - seems more labile with mother present - reassuring eval by hospitalist today- they are following closely with us but encouraging and supporting patient with compliance with stockings and leg elevation seem paramount 12/04/23- limited mobility did wear kenzie stockings- but won't wear slippers/shoes- difficulty raising her feet up - ongoing hypersexual content of thought/somatic preoccupation of PCOS- wanting to sign 3d 12/05/23 Patient mostly in her room limited mobility somatic preoccupations patient did sign a 3 day unrealistic expectation regarding outpatient setting 12/08/23 Change Chlorpromazine 100 mg HS to prn Decrease Valproate from 3000 mg daily to 2000 mg daily Sustenna 234 mg IM given today by team. 4/5/24 Continue to monitor for daytime sedation. 12/11/23 Continue treatment 12/12/23 Sx of bacterial vaginosis-antibiotic initiated. 12/14/23: Labs ordered for the a.m. 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 Patient labile episodes of being expansive overwhelmed anxiety times somatic paranoid delusional material did receive Invega injection 1 week ago should be a therapeutic dose unfortunately has. 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 Metronidazole gel QD for BV Cris Carballo's consult much appreciated. 01/01 O2 2L at HS Continue current regime Respiratory therapy consult much appreciated. 12/23 disorganized in speech and behavior; making sexualized comments to staff 12/24 little more calm today; still disorganized; continue current treatment plan 12/26/23: Continue current plan. Urology consult much appreciated. 12/28/23: Clozaril consideration. Reason for continued inpatient stay Substantial Risk for: rapid decompensation and med/psych decompensation Time Spent With Patient Time: Total time managing care of this patient today ____ minutes.
[2023-12-28 20:00] VITALS: BP 151/77; PULSE 127; RESP 18; TEMP 36.4; O2SAT 97
[2023-12-28 20:45] LABS: Glucose, Whole Blood 115 mg/dL (60-115)
[2023-12-28] MEDS: Docusate Sodium 100 MG CAPSULE PO (21:06)
[2023-12-28] MEDS: lamoTRIgine 25 MG TABLET PO (21:06)
[2023-12-29 07:45] VITALS: BP 133/93; PULSE 109; RESP 16; TEMP 36.6; O2SAT 97
[2023-12-29 08:05] LABS: Glucose, Whole Blood 100 mg/dL (60-115)
[2023-12-29 08:09] VITALS: BP 133/93; PULSE 109
[2023-12-29] MEDS: atenoloL 25 MG TABLET PO (08:09)
[2023-12-29] MEDS: Multivitamin TABLET 1 TAB PO (08:10)
[2023-12-29 08:11] VITALS: BP 133/93
[2023-12-29] MEDS: Furosemide 40 MG TABLET PO (08:11)
[2023-12-29] MEDS: Divalproex Sodium Sprinkles 125 MG CAP.DR.SPR 1500 MG PO ×2 (08:11→21:37)
[2023-12-29] MEDS: metFORMIN HCl ER 500 MG TAB.ER.24H PO (08:11)
[2023-12-29] MEDS: Apixaban 5 MG TABLET PO ×2 (08:11→21:37)
--- NOTE | 2023-12-29 09:37 | P.PNPSI_ITS ---
Subjective Subjective Date of Service: 12/29/23 Reason For Visit: manic aggressive Subjective Notes: Conditional Voluntary Healthcare Proxy: Yes Guardianship: No Medical Problems Affecting Mental Status: No Interim History: Irritable, angry, accusatory at times. Themes are physical illness-brain tumor, cancer and persecuatory delusions- feeling she will be killed. Compliant with compression stockings Shanelle Blas LM and tw discussed treatment planning with pt's father and HCP this afternoon. Discussed Clozapine trial- he is in agreement. Application to [facility] was submitted. Discussed longer term psychiatric hospitalization need should pt continue to destabilize. Father will discuss with pt's mother and family will consider as a possible option should pt continue to destabilize. Medication Compliance: Yes Side effects from medications: No Attending Groups: Intermittent Review of Systems Acute medical concerns: No Medical Review of Systems: unchanged Review of Systems Review of Systems Yes all other systems are reviewed and are negative Mental Status Exam Mental Status Exam Patient Appearance: Appropriate Patient Orientation: Person, Place and Situation Level of Consciousness: Alert Patient Behavior: Talkative, Cooperative, Fearful (worries about her family and her health), Fatigued, Confused and Good Eye Contact Mood Description: Hostile and Labile Affect Description: Labile Patient Cognition Impaired: Yes Ability to Follow Directions: Good Speech Pattern: Spontaneous Speech Memory Description: Episodic Impaired Hallucinations: None Delusions: Paranoid Ideation and Present Perceptual Disturbances: Depersonalization and Derealization Thought Process: Illogical, Distracted, Rumination and Confusion Thought Content: positive for Flight of Ideas, positive for Circumstantial, positive for Perseveration, positive for Tangential and positive for Suicidal Ideation (denies) Depressive Symptoms: Increased Anxiety, Increased Irritability, Unhappiness, Low Self Esteem and Difficulty Concentrating Abnormal Motor Activity Signs and Symptoms: Agitation Judgement: Poor Diagnostics Vital Signs (24Hr): Vital Signs - 24 hr 12/28/23 20:00 12/29/23 08:09 12/29/23 08:11 Temperature 97.5 F Pulse Rate 127 H 109 H Respiratory Rate 18 Blood Pressure 151/77 H 133/93 H 133/93 H Pulse Oximetry 97 Oxygen Delivery Method Room Air BMI result Body Mass Index 62.5 Labs 12/21/23 21:10 12/29/23 09:51 Labs: Laboratory Results - last 48 hr 12/27/23 12/28/23 12/28/23 11:11 08:53 20:42 POC Glucose 132 H 88 115 12/29/23 07:59 POC Glucose 100 Medications Medications Current Medications Acetaminophen (Acetaminophen 325 Mg Tablet) 650 mg PO Q6H PRN PRN Reason: Headache/Pain Mild Scale (1-3) Last Admin: 12/05/23 20:46 Dose: 650 mg Al Hydroxide/Mg Hydroxide (Magnesium Hydrox/Alum Hydrox 30 Ml Oral.Susp) 30 ml PO Q6H PRN PRN Reason: Heartburn/Nausea Last Admin: 11/29/23 22:00 Dose: 30 ml Apixaban (Apixaban 5 Mg Tablet) 5 mg PO BID [facility] Last Admin: 12/29/23 08:11 Dose: 5 mg Atenolol (Atenolol 25 Mg Tablet) 25 mg PO DAILY [facility]; Protocol Last Admin: 12/29/23 08:09 Dose: 25 mg Benzocaine (Throat Lozenge, Medicated Lozenge) 1 lozenge MUCOUS MEM Q2H PRN PRN Reason: Sore Throat Benzocaine (Throat Lozenge, Medicated Lozenge) 1 lozenge MUCOUS MEM Q2H PRN PRN Reason: Sore Throat Chlorpromazine HCl (Chlorpromazine Hcl 100 Mg Tablet) 100 mg PO BID PRN PRN Reason: psychosis, agitation Chlorpromazine HCl (Chlorpromazine Hcl 25 Mg Tablet) 75 mg PO 0900,1500,2100 [facility] Last Admin: 12/29/23 01:01 Dose: Not Given Divalproex Sodium (Divalproex Sodium Sprinkles 125 Mg ) 1,500 mg PO BID [facility] Last Admin: 12/29/23 08:11 Dose: 1,500 mg Docusate Sodium (Docusate Sodium 100 Mg Capsule) 100 mg PO BEDTIME [facility] Last Admin: 12/28/23 21:06 Dose: 100 mg Furosemide (Furosemide 40 Mg Tablet) 40 mg PO DAILY [facility]; Protocol Last Admin: 12/29/23 08:11 Dose: 40 mg Hydrocortisone (Hydrocortisone 1 % Cream 28.35 Gm Tube) 1 appl TOPICAL BID [facility]; Protocol Last Admin: 12/28/23 21:07 Dose: Not Given Hydroxyzine HCl (Hydroxyzine Hcl 25 Mg Tablet) 25 mg PO Q6H PRN PRN Reason: Anxiety Last Admin: 12/28/23 15:34 Dose: 25 mg Lactic Acid (Ammonium Lactate 12 % Lotion 226 Gm Bottle) 1 appl TOPICAL BID PRN; Protocol PRN Reason: Rash Last Admin: 12/26/23 09:45 Dose: 1 appl Lamotrigine (Lamotrigine 25 Mg Tablet) 25 mg PO BEDTIME [facility] Last Admin: 12/28/23 21:06 Dose: 25 mg Lidocaine (Lidocaine 4 % Patch Adh..Patch) 1 patch TRANSDERMA DAILY [facility]; Protocol Last Admin: 12/29/23 08:18 Dose: Not Given Lorazepam (Lorazepam 1 Mg Tablet) 1 mg PO BEDTIME PRN PRN Reason: insomnia,anxiety,agitation Last Admin: 12/24/23 21:11 Dose: 1 mg Magnesium Hydroxide (Milk Of Magnesia 30 Ml Oral.Susp) 30 ml PO DAILY PRN PRN Reason: Constipation Last Admin: 12/18/23 10:35 Dose: 30 ml Metformin HCl (Metformin Hcl Er 500 Mg Tab.Er.24h) 500 mg PO DAILY [facility] Last Admin: 12/29/23 08:11 Dose: 500 mg Metronidazole (Metronidazole 0.75 % Gel 45 Gm Tube) 1 appl TOPICAL DAILY [facility] Last Admin: 12/28/23 09:34 Dose: 1 appl Multi-Ingred Cream/Lotion/Oil/Oint (Mineral Oil/Petrolatum,White 106 Gm Tube) 1 appl TOPICAL BID [facility] Last Admin: 12/28/23 21:07 Dose: Not Given Multi-Ingred Medicated Throat [place] (Throat [place], Medicated 177 Ml Bottle) 1 spray MUCOUS MEM Q2H PRN PRN Reason: Sore Throat Multivitamins/Vitamin C (Multivitamin Tablet) 1 tab PO DAILY [facility] Last Admin: 12/29/23 08:10 Dose: 1 tab Nicotine (Nicotine 21 Mg Patch.Td24) 21 mg TRANSDERMA DAILY PRN PRN Reason: smoking cessation Nicotine Polacrilex (Nicotine Polacrilex 2 Mg Gum) 4 mg BUCCAL Q2H PRN PRN Reason: Nicotine Cravings Last Admin: 12/26/23 11:22 Dose: 2 mg Pt Own (Culturelle (Probiotics 1 Cap)) 1 cap PO DAILY [facility] Last Admin: 12/29/23 08:08 Dose: 1 cap Nystatin (Nystatin Powder 15 Gm Bottle) 1 appl TOPICAL BID PRN; Protocol PRN Reason: Rash Last Admin: 12/25/23 11:07 Dose: 1 appl Olanzapine (Olanzapine 5 Mg Tablet) 5 mg PO TID PRN PRN Reason: agitation Last Admin: 12/28/23 15:34 Dose: 5 mg Paliperidone Palmitate (Paliperidone Palmitate 234 Mg/1.5 Ml Syringe) 234 mg IM Q30D [facility] Last Admin: 12/08/23 16:45 Dose: 234 mg Trazodone HCl (Trazodone Hcl 50 Mg Tablet) 50 mg PO BEDTIME [facility] PRN PRN Reason: Insomnia Last Admin: 12/25/23 21:59 Dose: 50 mg Allergies Allergies Allergy/AdvReac Type Severity Reaction Status Date / Time kiwi [KIWI] Allergy Mild HIVES Verified 11/21/23 05:49 mold [MOLD EXTRACTS*] Allergy Mild HIVES Verified 11/21/23 05:49 Assessment & Plan Assessment & Plan (1) Schizoaffective disorder, bipolar type: Status: Acute Code(s): F25.0 - Schizoaffective disorder, bipolar type (2) Venous stasis: Status: Acute Code(s): I87.8 - Other specified disorders of veins Assessment and Plan: Cellulitis mimic Po Doxycycline for 10 days and topical steroids cover possible cellulitis superinfection hx of :Sepsis concerns with tachycardia and tachypnea. (not current 12/03/23) Treat venous stasis with elevation Follow with hospitalists as I do not assess this patients disposition ( am seeing on psychiatry. Check CBC unremarkable.) (3) Chronic cellulitis: Status: Acute Code(s): L03.90 - Cellulitis, unspecified Plan 12/01/23: Continue current tx and plan 12/02/23: Continue current plan and tx Change Chlorpromazine daytime doses to prn. 12/03/23 - seems more labile with mother present - reassuring eval by hospitalist today- they are following closely with us but encouraging and supporting patient with compliance with stockings and leg elevation seem paramount 12/04/23- limited mobility did wear kenzie stockings- but won't wear slippers/shoes- difficulty raising her feet up - ongoing hypersexual content of thought/somatic preoccupation of PCOS- wanting to sign 3d 12/05/23 Patient mostly in her room limited mobility somatic preoccupations patient did sign a 3 day unrealistic expectation regarding outpatient setting 12/08/23 Change Chlorpromazine 100 mg HS to prn Decrease Valproate from 3000 mg daily to 2000 mg daily Sustenna 234 mg IM given today by team. 12/09/23 Continue to monitor for daytime sedation. 12/11/23 Continue treatment 12/12/23 Sx of bacterial vaginosis-antibiotic initiated. 12/14/23: Labs ordered for the a.m. 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 Patient labile episodes of being expansive overwhelmed anxiety times somatic paranoid delusional material did receive Invega injection 1 week ago should be a therapeutic dose unfortunately has. 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 Metronidazole gel QD for BV Cris Carballo's consult much appreciated. 01/01 O2 2L at HS Continue current regime Respiratory therapy consult much appreciated. 12/23 disorganized in speech and behavior; making sexualized comments to staff 12/24 little more calm today; still disorganized; continue current treatment plan 12/26/23: Continue current plan. Urology consult much appreciated. 12/28/23: Clozaril consideration. 12/29/23: Father is in agreement to trial Clozapine. [facility] Guardian/Caregiver educated on: medication risk/benefits and therapeutic strategies Reason for continued inpatient stay Substantial Risk for: rapid decompensation and med/psych decompensation Time Spent With Patient Time: Total time managing care of this patient today ____ minutes.
[2023-12-29] MEDS: chlorproMAZINE HCl 25 MG TABLET 75 MG PO ×2 (10:08→17:45)
[2023-12-29] MEDS: Hydrocortisone 1 % Cream 28.35 GM TUBE 1 APPL TOPICAL (10:10)
[2023-12-29] MEDS: metroNIDAZOLE 0.75 % Gel 45 GM TUBE 1 APPL TOPICAL (10:12)
[2023-12-29 10:13] LABS: Creatinine Clr Calc Pharmacy 218.7; Estimated Glomerular Filt Rate > 60
[2023-12-29 20:00] VITALS: BP 141/99; PULSE 101; RESP 18; TEMP 36.9; O2SAT 95
[2023-12-29] MEDS: Docusate Sodium 100 MG CAPSULE PO (21:37)
[2023-12-29] MEDS: lamoTRIgine 25 MG TABLET PO (21:37)
[2023-12-29] MEDS: chlorproMAZINE HCl 100 MG TABLET PO (21:39)
[2023-12-29 21:55] LABS: Glucose, Whole Blood 144 mg/dL (60-115)
[2023-12-30 09:00] VITALS: BP 147/77; PULSE 92; RESP 20; TEMP 36.6; O2SAT 100
[2023-12-30 09:08] LABS: Glucose, Whole Blood 94 mg/dL (60-115)
[2023-12-30] MEDS: Divalproex Sodium Sprinkles 125 MG CAP.DR.SPR 1500 MG PO ×2 (09:17→22:02)
[2023-12-30] MEDS: Furosemide 40 MG TABLET PO (09:18)
[2023-12-30] MEDS: metFORMIN HCl ER 500 MG TAB.ER.24H PO (09:18)
[2023-12-30] MEDS: Apixaban 5 MG TABLET PO ×2 (09:18→22:07)
[2023-12-30] MEDS: atenoloL 25 MG TABLET PO (09:18)
[2023-12-30] MEDS: Multivitamin TABLET 1 TAB PO (09:18)
[2023-12-30] MEDS: Hydrocortisone 1 % Cream 28.35 GM TUBE 1 APPL TOPICAL (09:22)
[2023-12-30] MEDS: metroNIDAZOLE 0.75 % Gel 45 GM TUBE 1 APPL TOPICAL (09:22)
[2023-12-30] MEDS: chlorproMAZINE HCl 25 MG TABLET 75 MG PO ×3 (09:22→22:10)
[2023-12-30] MEDS: Mineral Oil/Petrolatum,White 106 GM Tube 1 APPL TOPICAL ×2 (09:23→22:14)
--- NOTE | 2023-12-30 14:56 | P.PNPSI_ITS ---
Subjective Subjective Date of Service: 12/30/23 Reason For Visit: manic aggressive Subjective Notes: Conditional Voluntary Healthcare Proxy: Yes Guardianship: No Medical Problems Affecting Mental Status: No Interim History: Continues with irritability, delusional and paranoid content. Angry at times, resting at times. Care discussed with HCP and father who will review Cl[facility]apine [facility] on internet. Application has been sent for [facility]. Plan to begin to decrease Depakote, stop Chlorpromazine, obtain EKG prior to initiation of Clozapine if he agrees. Medication Compliance: Yes Side effects from medications: No Attending Groups: No Review of Systems Acute medical concerns: No Medical Review of Systems: unchanged Review of Systems Review of Systems Yes all other systems are reviewed and are negative Mental Status Exam Mental Status Exam Patient Appearance: Appropriate Patient Orientation: Person, Place and Situation Level of Consciousness: Alert Patient Behavior: Talkative, Cooperative, Fearful (worries about her family and her health), Fatigued, Confused and Good Eye Contact Mood Description: Hostile and Labile Affect Description: Labile Patient Cognition Impaired: Yes Ability to Follow Directions: Good Speech Pattern: Spontaneous Speech Memory Description: Episodic Impaired Hallucinations: None Delusions: Paranoid Ideation and Present Perceptual Disturbances: Depersonalization and Derealization Thought Process: Illogical, Distracted, Rumination and Confusion Thought Content: positive for Flight of Ideas, positive for Circumstantial, positive for Perseveration, positive for Tangential and positive for Suicidal Ideation (denies) Depressive Symptoms: Increased Anxiety, Increased Irritability, Unhappiness, Low Self Esteem and Difficulty Concentrating Abnormal Motor Activity Signs and Symptoms: Agitation Judgement: Poor Diagnostics Vital Signs (24Hr): Vital Signs - 24 hr 12/29/23 20:00 12/30/23 09:00 Temperature 98.4 F 98 F Pulse Rate 101 H 92 Respiratory Rate 18 20 Blood Pressure 141/99 H 147/77 H Pulse Oximetry 95 100 Oxygen Delivery Method Room Air Room Air BMI result Body Mass Index 62.5 Labs 12/21/23 21:10 12/29/23 09:51 Labs: Laboratory Results - last 48 hr 12/28/23 12/29/23 12/29/23 20:42 07:59 09:51 Creatinine 0.70 Estim Creat Clear Calc 218.7 Estimated GFR > 60 POC Glucose 115 100 12/29/23 12/30/23 21:49 09:04 Creatinine Estim Creat Clear Calc Estimated GFR POC Glucose 144 H 94 Medications Medications Current Medications Acetaminophen (Acetaminophen 325 Mg Tablet) 650 mg PO Q6H PRN PRN Reason: Headache/Pain Mild Scale (1-3) Last Admin: 12/05/23 20:46 Dose: 650 mg Al Hydroxide/Mg Hydroxide (Magnesium Hydrox/Alum Hydrox 30 Ml Oral.Susp) 30 ml PO Q6H PRN PRN Reason: Heartburn/Nausea Last Admin: 11/29/23 22:00 Dose: 30 ml Apixaban (Apixaban 5 Mg Tablet) 5 mg PO BID [facility] Last Admin: 12/30/23 09:18 Dose: 5 mg Atenolol (Atenolol 25 Mg Tablet) 25 mg PO DAILY [facility]; Protocol Last Admin: 12/30/23 09:18 Dose: 25 mg Benzocaine (Throat Lozenge, Medicated Lozenge) 1 lozenge MUCOUS MEM Q2H PRN PRN Reason: Sore Throat Benzocaine (Throat Lozenge, Medicated Lozenge) 1 lozenge MUCOUS MEM Q2H PRN PRN Reason: Sore Throat Chlorpromazine HCl (Chlorpromazine Hcl 100 Mg Tablet) 100 mg PO BID PRN PRN Reason: psychosis, agitation Last Admin: 12/29/23 21:39 Dose: 100 mg Chlorpromazine HCl (Chlorpromazine Hcl 25 Mg Tablet) 75 mg PO TID@0700,1500,2100 [facility] Last Admin: 12/30/23 09:22 Dose: 75 mg Divalproex Sodium (Divalproex Sodium Sprinkles 125 Mg ) 1,500 mg PO BID [facility] Last Admin: 12/30/23 09:17 Dose: 1,500 mg Docusate Sodium (Docusate Sodium 100 Mg Capsule) 100 mg PO BEDTIME [facility] Last Admin: 12/29/23 21:37 Dose: 100 mg Furosemide (Furosemide 40 Mg Tablet) 40 mg PO DAILY [facility]; Protocol Last Admin: 12/30/23 09:18 Dose: 40 mg Hydrocortisone (Hydrocortisone 1 % Cream 28.35 Gm Tube) 1 appl TOPICAL BID [facility]; Protocol Last Admin: 12/30/23 09:22 Dose: 1 appl Hydroxyzine HCl (Hydroxyzine Hcl 25 Mg Tablet) 25 mg PO Q6H PRN PRN Reason: Anxiety Last Admin: 12/28/23 15:34 Dose: 25 mg Lactic Acid (Ammonium Lactate 12 % Lotion 226 Gm Bottle) 1 appl TOPICAL BID PRN; Protocol PRN Reason: Rash Last Admin: 12/26/23 09:45 Dose: 1 appl Lamotrigine (Lamotrigine 25 Mg Tablet) 25 mg PO BEDTIME [facility] Last Admin: 12/29/23 21:37 Dose: 25 mg Lidocaine (Lidocaine 4 % Patch Adh..Patch) 1 patch TRANSDERMA DAILY [facility]; Protocol Last Admin: 12/30/23 09:41 Dose: Not Given Lorazepam (Lorazepam 1 Mg Tablet) 1 mg PO BEDTIME PRN PRN Reason: insomnia,anxiety,agitation Last Admin: 12/24/23 21:11 Dose: 1 mg Magnesium Hydroxide (Milk Of Magnesia 30 Ml Oral.Susp) 30 ml PO DAILY PRN PRN Reason: Constipation Last Admin: 12/18/23 10:35 Dose: 30 ml Metformin HCl (Metformin Hcl Er 500 Mg Tab.Er.24h) 500 mg PO DAILY [facility] Last Admin: 12/30/23 09:18 Dose: 500 mg Metronidazole (Metronidazole 0.75 % Gel 45 Gm Tube) 1 appl TOPICAL DAILY [facility] Last Admin: 12/30/23 09:22 Dose: 1 appl Multi-Ingred Cream/Lotion/Oil/Oint (Mineral Oil/Petrolatum,White 106 Gm Tube) 1 appl TOPICAL BID [facility] Last Admin: 12/30/23 09:23 Dose: 1 appl Multi-Ingred Medicated Throat [place] (Throat [place], Medicated 177 Ml Bottle) 1 spray MUCOUS MEM Q2H PRN PRN Reason: Sore Throat Multivitamins/Vitamin C (Multivitamin Tablet) 1 tab PO DAILY [facility] Last Admin: 12/30/23 09:18 Dose: 1 tab Pt Own (Culturelle (Probiotics 1 Cap)) 1 cap PO DAILY [facility] Last Admin: 12/30/23 09:22 Dose: 1 cap Nystatin (Nystatin Powder 15 Gm Bottle) 1 appl TOPICAL BID PRN; Protocol PRN Reason: Rash Last Admin: 12/25/23 11:07 Dose: 1 appl Olanzapine (Olanzapine 5 Mg Tablet) 5 mg PO TID PRN PRN Reason: agitation Last Admin: 12/28/23 15:34 Dose: 5 mg Paliperidone Palmitate (Paliperidone Palmitate 234 Mg/1.5 Ml Syringe) 234 mg IM Q30D [facility] Last Admin: 12/08/23 16:45 Dose: 234 mg Trazodone HCl (Trazodone Hcl 50 Mg Tablet) 50 mg PO BEDTIME [facility] PRN PRN Reason: Insomnia Last Admin: 12/25/23 21:59 Dose: 50 mg Allergies Allergies Allergy/AdvReac Type Severity Reaction Status Date / Time kiwi [KIWI] Allergy Mild HIVES Verified 11/21/23 05:49 mold [MOLD EXTRACTS*] Allergy Mild HIVES Verified 11/21/23 05:49 Assessment & Plan Assessment & Plan (1) Schizoaffective disorder, bipolar type: Status: Acute Code(s): F25.0 - Schizoaffective disorder, bipolar type (2) Venous stasis: Status: Acute Code(s): I87.8 - Other specified disorders of veins Assessment and Plan: Cellulitis mimic Po Doxycycline for 10 days and topical steroids cover possible cellulitis superinfection hx of :Sepsis concerns with tachycardia and tachypnea. (not current 12/03/23) Treat venous stasis with elevation Follow with hospitalists as I do not assess this patients disposition ( am seeing on psychiatry. Check CBC unremarkable.) (3) Chronic cellulitis: Status: Acute Code(s): L03.90 - Cellulitis, unspecified Plan 12/01/23: Continue current tx and plan 12/02/23: Continue current plan and tx Change Chlorpromazine daytime doses to prn. 12/03/23 - seems more labile with mother present - reassuring eval by hospitalist today- they are following closely with us but encouraging and supporting patient with compliance with stockings and leg elevation seem paramount 12/04/23- limited mobility did wear kenzie stockings- but won't wear slippers/shoes- difficulty raising her feet up - ongoing hypersexual content of thought/somatic preoccupation of PCOS- wanting to sign 3d 12/05/23 Patient mostly in her room limited mobility somatic preoccupations patient did sign a 3 day unrealistic expectation regarding outpatient setting 12/08/23 Change Chlorpromazine 100 mg HS to prn Decrease Valproate from 3000 mg daily to 2000 mg daily Sustenna 234 mg IM given today by team. 12/09/23 Continue to monitor for daytime sedation. 12/11/23 Continue treatment 12/12/23 Sx of bacterial vaginosis-antibiotic initiated. 12/14/23: Labs ordered for the a.m. 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 Patient labile episodes of being expansive overwhelmed anxiety times somatic paranoid delusional material did receive Invega injection 1 week ago should be a therapeutic dose unfortunately has. 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 Metronidazole gel QD for BV Cris Carballo's consult much appreciated. 01/01 O2 2L at HS Continue current regime Respiratory therapy consult much appreciated. 12/23 disorganized in speech and behavior; making sexualized comments to staff 12/24 little more calm today; still disorganized; continue current treatment plan 12/26/23: Continue current plan. Urology consult much appreciated. 12/28/23: Clozaril consideration. 12/29/23: Father is in agreement to trial Clozapine. Application submitted to [facility] 12/30/23: Preparing for Clozapine. Begin Depakote decrease by 500 mg daily. Father/HCP reviewing Cl[facility] If he is in agreement, will stop Chlorpromazine, obtain EKG and move forward with Clozapine initiation. Reason for continued inpatient stay Substantial Risk for: rapid decompensation Time Spent With Patient Time: Total time managing care of this patient today ____ minutes.
[2023-12-30 19:25] LABS: Neut%MD 54.5 %; Neutrophils Absolute Auto 3.8 x10*3/uL (2.0-8.3)
[2023-12-30 20:00] VITALS: BP 136/72; PULSE 72; TEMP 36.1; O2SAT 95
[2023-12-30] MEDS: traZODone HCL 50 MG TABLET PO (22:05)
[2023-12-30] MEDS: lamoTRIgine 25 MG TABLET PO (22:06)
[2023-12-30] MEDS: Docusate Sodium 100 MG CAPSULE PO (22:06)
[2023-12-30 22:48] LABS: Glucose, Whole Blood 126 mg/dL (60-115)
[2023-12-31 10:30] VITALS: BP 144/85; PULSE 82; RESP 16; TEMP 36.4; O2SAT 98
[2023-12-31 11:06] VITALS: BP 144/85
[2023-12-31] MEDS: Multivitamin TABLET 1 TAB PO (11:06)
[2023-12-31] MEDS: Furosemide 40 MG TABLET PO (11:06)
[2023-12-31] MEDS: metFORMIN HCl ER 500 MG TAB.ER.24H PO (11:06)
[2023-12-31] MEDS: Divalproex Sodium Sprinkles 125 MG CAP.DR.SPR 1000 MG PO (11:06)
[2023-12-31 11:07] VITALS: BP 144/85; PULSE 82
[2023-12-31] MEDS: atenoloL 25 MG TABLET PO (11:07)
[2023-12-31] MEDS: Apixaban 5 MG TABLET PO ×2 (11:07→22:30)
[2023-12-31] MEDS: chlorproMAZINE HCl 25 MG TABLET 75 MG PO ×3 (11:16→22:33)
--- NOTE | 2023-12-31 14:46 | PM.EVENT ---
Event Note Date of Service: 12/31/23 Event Note: Pt seen at bedside at RN request for patient reassurance regarding BLE edema. Pt has had multiple evaluation for chronic ble edema with chronic venous stasis dermatitis. She has been complaint with compression stockings and improved hygeine overall. Today, appearance of BLE is actually markedly improved. There is still faint erythema of the distal aspect of the BLE and the posterior RLE but overall much improved. No significant warmth. Superfical lesion dorsum R foot well healing. Noevidence of infection. Continue with conservative measures as previously discussed. Time Spent With Patient Time: Total time managing care of this patient today ____ minutes.
--- NOTE | 2023-12-31 18:00 | PC.NURSE ---
pt reports lower abdominal pain 5/10 she has been experiencing for a few days . She states when she was in highschool she had a grape sized benign cyst removed from her ovaries . she ealso reports her sister has had a similiar experience and that her sisiter sari has 1 ovary as 1 needed to be removed due to excessive cysts. I'm worried its coming back and no-one will listen . Tylenol prn offered but refused. I need an ultrasound ! MD Lin notified via [facility] text. Awaiting response.
[2023-12-31 20:00] VITALS: BP 169/81; PULSE 97; TEMP 36.3; O2SAT 97
--- NOTE | 2023-12-31 21:03 | P.PNPSI_ITS ---
Subjective Subjective Date of Service: 12/31/23 Reason For Visit: manic aggressive Interim History: Less irritable. Continues focused in her leg cellulites. Continues with irritability. Focused on delusional and grandiose topics. Believes her family is jealous of her for her success. delusional and paranoid content about being . She is more visible in milieu and has not shown aggressive behavior. Review of Systems Review of Systems I feel good today. Yes all other systems are reviewed and are negative, Unobtainable due to mental status and Other (Manic, answering questions inappropriately) Constitutional: Denies chills, Reports difficulty sleeping, Reports fatigue, Denies fever(s) and Reports stops breathing during sleep (Obstructive VALERI- refusing of CPAP) Cardiovascular: Denies chest pain Respiratory: Denies cough Gastrointestinal: Denies abdominal pain Skin/Breast: Reports furuncle (vaginal) Psychiatric: Reports anxiety and Reports mood swings Endocrine: Reports fatigue Mental Status Exam Mental Status Exam Narrative: Patient Appearance: Appropriate Patient Orientation: Person, Place, Time and Situation Level of Consciousness: Awake Patient Behavior: erraticm, Belligerent, Distractible, intense gaze, Disinhibited Mood Description: Labile, Elated, Expansive Affect Description: Suspicious, Labile, Bright, Expansive Patient Cognition Impaired: No Ability to Follow Directions: Fair Speech Pattern: Clear Memory Description: Episodic Impaired Hallucinations: None Thought Process: Racing and Distracted Thought Content: positive for Flight of Ideas, positive for Circumstantial and positive for Tangential Judgment: Fair Judgment and Insight: Patient with multiple bizarre preoccupations paranoid concerns flight of ideas elevated mood Patient Appearance: Appropriate Patient Orientation: Person, Place and Situation Level of Consciousness: Alert Patient Behavior: Talkative, Cooperative, Fearful (worries about her family and her health), Fatigued, Confused and Good Eye Contact Behavior Comments: Disorganized; making sexually inappropriate comments to staff; currently calm but intermittently starts yelling though quickly redirectable Mood Description: Hostile and Labile Affect Description: Labile Patient Cognition Impaired: Yes Ability to Follow Directions: Good Speech Pattern: Spontaneous Speech Memory Description: Episodic Impaired Diagnostics Vital Signs (24Hr): Vital Signs - 24 hr 12/31/23 10:30 12/31/23 11:06 12/31/23 11:07 Temperature 97.6 F Pulse Rate 82 82 Respiratory Rate 16 Blood Pressure 144/85 H 144/85 H 144/85 H Pulse Oximetry 98 Oxygen Delivery Method Room Air BMI result Body Mass Index 62.5 Labs 12/30/23 19:08 12/29/23 09:51 Labs: Laboratory Results - last 48 hr 12/29/23 12/30/23 12/30/23 21:49 09:04 19:08 WBC 7.0 Absolute Neuts (auto) 3.8 POC Glucose 144 H 94 12/30/23 22:45 WBC Absolute Neuts (auto) POC Glucose 126 H Medications Medications Current Medications Acetaminophen (Acetaminophen 325 Mg Tablet) 650 mg PO Q6H PRN PRN Reason: Headache/Pain Mild Scale (1-3) Last Admin: 12/05/23 20:46 Dose: 650 mg Al Hydroxide/Mg Hydroxide (Magnesium Hydrox/Alum Hydrox 30 Ml Oral.Susp) 30 ml PO Q6H PRN PRN Reason: Heartburn/Nausea Last Admin: 11/29/23 22:00 Dose: 30 ml Apixaban (Apixaban 5 Mg Tablet) 5 mg PO BID [facility] Last Admin: 12/31/23 11:07 Dose: 5 mg Atenolol (Atenolol 25 Mg Tablet) 25 mg PO DAILY [facility]; Protocol Last Admin: 12/31/23 11:07 Dose: 25 mg Benzocaine (Throat Lozenge, Medicated Lozenge) 1 lozenge MUCOUS MEM Q2H PRN PRN Reason: Sore Throat Benzocaine (Throat Lozenge, Medicated Lozenge) 1 lozenge MUCOUS MEM Q2H PRN PRN Reason: Sore Throat Chlorpromazine HCl (Chlorpromazine Hcl 100 Mg Tablet) 100 mg PO BID PRN PRN Reason: psychosis, agitation Last Admin: 12/29/23 21:39 Dose: 100 mg Chlorpromazine HCl (Chlorpromazine Hcl 25 Mg Tablet) 75 mg PO TID@0700,1500,2100 [facility] Last Admin: 12/31/23 16:43 Dose: 75 mg Divalproex Sodium (Divalproex Sodium Sprinkles 125 Mg ) 1,500 mg PO BEDTIME [facility] Last Admin: 12/30/23 22:02 Dose: 1,500 mg Divalproex Sodium (Divalproex Sodium Sprinkles 125 Mg ) 1,000 mg PO DAILY [facility] Last Admin: 12/31/23 11:06 Dose: 1,000 mg Docusate Sodium (Docusate Sodium 100 Mg Capsule) 100 mg PO BEDTIME [facility] Last Admin: 12/30/23 22:06 Dose: 100 mg Furosemide (Furosemide 40 Mg Tablet) 40 mg PO DAILY [facility]; Protocol Last Admin: 12/31/23 11:06 Dose: 40 mg Hydrocortisone (Hydrocortisone 1 % Cream 28.35 Gm Tube) 1 appl TOPICAL BID [facility]; Protocol Last Admin: 12/31/23 11:32 Dose: Not Given Hydroxyzine HCl (Hydroxyzine Hcl 25 Mg Tablet) 25 mg PO Q6H PRN PRN Reason: Anxiety Last Admin: 12/28/23 15:34 Dose: 25 mg Lactic Acid (Ammonium Lactate 12 % Lotion 226 Gm Bottle) 1 appl TOPICAL BID PRN; Protocol PRN Reason: Rash Last Admin: 12/26/23 09:45 Dose: 1 appl Lamotrigine (Lamotrigine 25 Mg Tablet) 25 mg PO BEDTIME [facility] Last Admin: 12/30/23 22:06 Dose: 25 mg Lidocaine (Lidocaine 4 % Patch Adh..Patch) 1 patch TRANSDERMA DAILY [facility]; Protocol Last Admin: 12/31/23 11:30 Dose: Not Given Lorazepam (Lorazepam 1 Mg Tablet) 1 mg PO BEDTIME PRN PRN Reason: insomnia,anxiety,agitation Last Admin: 12/24/23 21:11 Dose: 1 mg Magnesium Hydroxide (Milk Of Magnesia 30 Ml Oral.Susp) 30 ml PO DAILY PRN PRN Reason: Constipation Last Admin: 12/18/23 10:35 Dose: 30 ml Metformin HCl (Metformin Hcl Er 500 Mg Tab.Er.24h) 500 mg PO DAILY [facility] Last Admin: 12/31/23 11:06 Dose: 500 mg Metronidazole (Metronidazole 0.75 % Gel 45 Gm Tube) 1 appl TOPICAL DAILY [facility] Last Admin: 12/31/23 11:32 Dose: Not Given Multi-Ingred Cream/Lotion/Oil/Oint (Mineral Oil/Petrolatum,White 106 Gm Tube) 1 appl TOPICAL BID [facility] Last Admin: 12/31/23 11:32 Dose: Not Given Multi-Ingred Medicated Throat [place] (Throat [place], Medicated 177 Ml Bottle) 1 spray MUCOUS MEM Q2H PRN PRN Reason: Sore Throat Multivitamins/Vitamin C (Multivitamin Tablet) 1 tab PO DAILY [facility] Last Admin: 12/31/23 11:06 Dose: 1 tab Pt Own (Culturelle (Probiotics 1 Cap)) 1 cap PO DAILY [facility] Last Admin: 12/31/23 11:21 Dose: 1 cap Nystatin (Nystatin Powder 15 Gm Bottle) 1 appl TOPICAL BID PRN; Protocol PRN Reason: Rash Last Admin: 12/25/23 11:07 Dose: 1 appl Olanzapine (Olanzapine 5 Mg Tablet) 5 mg PO TID PRN PRN Reason: agitation Last Admin: 12/28/23 15:34 Dose: 5 mg Paliperidone Palmitate (Paliperidone Palmitate 234 Mg/1.5 Ml Syringe) 234 mg IM Q30D [facility] Last Admin: 12/08/23 16:45 Dose: 234 mg Trazodone HCl (Trazodone Hcl 50 Mg Tablet) 50 mg PO BEDTIME MRX1 PRN PRN Reason: Insomnia Last Admin: 12/30/23 22:05 Dose: 50 mg Allergies Allergies Allergy/AdvReac Type Severity Reaction Status Date / Time kiwi [KIWI] Allergy Mild HIVES Verified 11/21/23 05:49 mold [MOLD EXTRACTS*] Allergy Mild HIVES Verified 11/21/23 05:49 Assessment & Plan Assessment & Plan (1) Schizoaffective disorder, bipolar type: Status: Acute Code(s): F25.0 - Schizoaffective disorder, bipolar type (2) Venous stasis: Status: Acute Code(s): I87.8 - Other specified disorders of veins Assessment and Plan: Cellulitis mimic Po Doxycycline for 10 days and topical steroids cover possible cellulitis superinfection hx of :Sepsis concerns with tachycardia and tachypnea. (not current 12/03/23) Treat venous stasis with elevation Follow with hospitalists as I do not assess this patients disposition ( am seeing on psychiatry. Check CBC unremarkable.) 12/31/23 Clozapine is being considered. (3) Chronic cellulitis: Status: Acute Code(s): L03.90 - Cellulitis, unspecified Plan 12/01/23: Continue current tx and plan 12/02/23: Continue current plan and tx Change Chlorpromazine daytime doses to prn. 12/03/23 - seems more labile with mother present - reassuring eval by hospitalist today- they are following closely with us but encouraging and supporting patient with compliance with stockings and leg elevation seem paramount 12/04/23- limited mobility did wear kenzie stockings- but won't wear slippers/shoes- difficulty raising her feet up - ongoing hypersexual content of thought/somatic preoccupation of PCOS- wanting to sign 3d 12/05/23 Patient mostly in her room limited mobility somatic preoccupations patient did sign a 3 day unrealistic expectation regarding outpatient setting 12/08/23 Change Chlorpromazine 100 mg HS to prn Decrease Valproate from 3000 mg daily to 2000 mg daily Sustenna 234 mg IM given today by team. 12/09/23 Continue to monitor for daytime sedation. 12/11/23 Continue treatment 12/12/23 Sx of bacterial vaginosis-antibiotic initiated. 12/14/23: Labs ordered for the a.m. 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 Patient labile episodes of being expansive overwhelmed anxiety times somatic paranoid delusional material did receive Invega injection 1 week ago should be a therapeutic dose unfortunately has. 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 Metronidazole gel QD for BV Cris Carballo's consult much appreciated. 01/01 O2 2L at HS Continue current regime Respiratory therapy consult much appreciated. 12/23 disorganized in speech and behavior; making sexualized comments to staff 12/24 little more calm today; still disorganized; continue current treatment plan 12/26/23: Continue current plan. Urology consult much appreciated. 12/28/23: Clozaril consideration. 12/29/23: Father is in agreement to trial Clozapine. Application submitted to [facility] 12/30/23: Preparing for Clozapine. Begin Depakote decrease by 500 mg daily. Father/HCP reviewing Clozapine [facility] If he is in agreement, will stop Chlorpromazine, obtain EKG and move forward with Clozapine initiation. 12/30: continue current management and treatment plan. Reason for continued inpatient stay Substantial Risk for: inability to function and rapid decompensation Time Spent With Patient Time: Total time managing care of this patient today ____ minutes.
[2023-12-31] MEDS: lamoTRIgine 25 MG TABLET PO (22:26)
[2023-12-31] MEDS: Divalproex Sodium Sprinkles 125 MG CAP.DR.SPR 1500 MG PO (22:26)
[2023-12-31] MEDS: Docusate Sodium 100 MG CAPSULE PO (22:26)
[2023-12-31] MEDS: traZODone HCL 50 MG TABLET PO (22:30)
[2023-12-31 22:51] LABS: Glucose, Whole Blood 156 mg/dL (60-115)
[2024-01-01] MEDS: chlorproMAZINE HCl 25 MG TABLET 75 MG PO ×3 (06:55→20:44)
--- NOTE | 2024-01-01 09:24 | P.PNPSI_ITS ---
Subjective Subjective Date of Service: 01/01/24 Reason For Visit: manic aggressive Interim History: Less irritable. Overall improved since admission. Had a bout of diarrhea last night. Today saying she is constipated. Cdiff ordered. Wants an animal impersonator to see her because she is worried about having ovarian cysts. 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 Wants an [place]. Doesn't appear to be in discomfort. Focused on delusional and grandiose topics. Delusional and paranoid content about being . She is more visible in milieu and has not shown aggressive behavior. Review of Systems Review of Systems I feel good today. Yes all other systems are reviewed and are negative, Unobtainable due to mental status and Other (Manic, answering questions inappropriately) Constitutional: Denies chills, Reports difficulty sleeping, Reports fatigue, Denies fever(s) and Reports stops breathing during sleep (Obstructive VALERI- refusing of CPAP) Cardiovascular: Denies chest pain Respiratory: Denies cough Gastrointestinal: Denies abdominal pain Skin/Breast: Reports furuncle (vaginal) Psychiatric: Reports anxiety and Reports mood swings Endocrine: Reports fatigue Mental Status Exam Mental Status Exam Narrative: Patient Appearance: Appropriate Patient Orientation: Person, Place, Time and Situation Level of Consciousness: Awake Patient Behavior: erraticm, Belligerent, Distractible, intense gaze, Disinhibited Mood Description: Labile, Elated, Expansive Affect Description: Suspicious, Labile, Bright, Expansive Patient Cognition Impaired: No Ability to Follow Directions: Fair Speech Pattern: Clear Memory Description: Episodic Impaired Hallucinations: None Thought Process: Racing and Distracted Thought Content: positive for Flight of Ideas, positive for Circumstantial and positive for Tangential Judgment: Fair Judgment and Insight: Patient with multiple bizarre preoccupations paranoid concerns flight of ideas elevated mood Patient Appearance: Appropriate Patient Orientation: Person, Place and Situation Level of Consciousness: Alert Patient Behavior: Talkative, Cooperative, Fearful (worries about her family and her health), Fatigued, Confused and Good Eye Contact Behavior Comments: Disorganized; making sexually inappropriate comments to staff; currently calm but intermittently starts yelling though quickly redirectable Mood Description: Hostile and Labile Affect Description: Labile Patient Cognition Impaired: Yes Ability to Follow Directions: Good Speech Pattern: Spontaneous Speech Memory Description: Episodic Impaired Diagnostics Vital Signs (24Hr): Vital Signs - 24 hr 12/31/23 10:30 12/31/23 11:06 12/31/23 11:07 Temperature 97.6 F Pulse Rate 82 82 Respiratory Rate 16 Blood Pressure 144/85 H 144/85 H 144/85 H Pulse Oximetry 98 Oxygen Delivery Method Room Air 12/31/23 20:00 Temperature 97.3 F Pulse Rate 97 Respiratory Rate Blood Pressure 169/81 H Pulse Oximetry 97 Oxygen Delivery Method Room Air BMI result Body Mass Index 62.5 Labs 12/30/23 19:08 12/29/23 09:51 Labs: Laboratory Results - last 48 hr 12/30/23 12/30/23 12/31/23 19:08 22:45 22:46 WBC 7.0 Absolute Neuts (auto) 3.8 POC Glucose 126 H 156 H Medications Medications Current Medications Acetaminophen (Acetaminophen 325 Mg Tablet) 650 mg PO Q6H PRN PRN Reason: Headache/Pain Mild Scale (1-3) Last Admin: 12/05/23 20:46 Dose: 650 mg Al Hydroxide/Mg Hydroxide (Magnesium Hydrox/Alum Hydrox 30 Ml Oral.Susp) 30 ml PO Q6H PRN PRN Reason: Heartburn/Nausea Last Admin: 11/29/23 22:00 Dose: 30 ml Apixaban (Apixaban 5 Mg Tablet) 5 mg PO BID [facility] Last Admin: 12/31/23 22:30 Dose: 5 mg Atenolol (Atenolol 25 Mg Tablet) 25 mg PO DAILY [facility]; Protocol Last Admin: 12/31/23 11:07 Dose: 25 mg Benzocaine (Throat Lozenge, Medicated Lozenge) 1 lozenge MUCOUS MEM Q2H PRN PRN Reason: Sore Throat Benzocaine (Throat Lozenge, Medicated Lozenge) 1 lozenge MUCOUS MEM Q2H PRN PRN Reason: Sore Throat Chlorpromazine HCl (Chlorpromazine Hcl 100 Mg Tablet) 100 mg PO BID PRN PRN Reason: psychosis, agitation Last Admin: 12/29/23 21:39 Dose: 100 mg Chlorpromazine HCl (Chlorpromazine Hcl 25 Mg Tablet) 75 mg PO TID@0700,1500,2100 [facility] Last Admin: 01/01/24 06:55 Dose: 75 mg Divalproex Sodium (Divalproex Sodium Sprinkles 125 Mg Cap.) 1,500 mg PO BEDTIME [facility] Last Admin: 12/31/23 22:26 Dose: 1,500 mg Divalproex Sodium (Divalproex Sodium Sprinkles 125 Mg ) 1,000 mg PO DAILY [facility] Last Admin: 12/31/23 11:06 Dose: 1,000 mg Docusate Sodium (Docusate Sodium 100 Mg Capsule) 100 mg PO BEDTIME [facility] Last Admin: 12/31/23 22:26 Dose: 100 mg Furosemide (Furosemide 40 Mg Tablet) 40 mg PO DAILY [facility]; Protocol Last Admin: 12/31/23 11:06 Dose: 40 mg Hydrocortisone (Hydrocortisone 1 % Cream 28.35 Gm Tube) 1 appl TOPICAL BID [facility]; Protocol Last Admin: 12/31/23 22:39 Dose: Not Given Hydroxyzine HCl (Hydroxyzine Hcl 25 Mg Tablet) 25 mg PO Q6H PRN PRN Reason: Anxiety Last Admin: 12/28/23 15:34 Dose: 25 mg Lactic Acid (Ammonium Lactate 12 % Lotion 226 Gm Bottle) 1 appl TOPICAL BID PRN; Protocol PRN Reason: Rash Last Admin: 12/26/23 09:45 Dose: 1 appl Lamotrigine (Lamotrigine 25 Mg Tablet) 25 mg PO BEDTIME [facility] Last Admin: 12/31/23 22:26 Dose: 25 mg Lidocaine (Lidocaine 4 % Patch Adh..Patch) 1 patch TRANSDERMA DAILY [facility]; Protocol Last Admin: 12/31/23 11:30 Dose: Not Given Lorazepam (Lorazepam 1 Mg Tablet) 1 mg PO BEDTIME PRN PRN Reason: insomnia,anxiety,agitation Last Admin: 12/24/23 21:11 Dose: 1 mg Magnesium Hydroxide (Milk Of Magnesia 30 Ml Oral.Susp) 30 ml PO DAILY PRN PRN Reason: Constipation Last Admin: 12/18/23 10:35 Dose: 30 ml Metformin HCl (Metformin Hcl Er 500 Mg Tab.Er.24h) 500 mg PO DAILY [facility] Last Admin: 12/31/23 11:06 Dose: 500 mg Metronidazole (Metronidazole 0.75 % Gel 45 Gm Tube) 1 appl TOPICAL DAILY [facility] Last Admin: 12/31/23 11:32 Dose: Not Given Multi-Ingred Cream/Lotion/Oil/Oint (Mineral Oil/Petrolatum,White 106 Gm Tube) 1 appl TOPICAL BID [facility] Last Admin: 12/31/23 22:39 Dose: Not Given Multi-Ingred Medicated Throat [place] (Throat [place], Medicated 177 Ml Bottle) 1 spray MUCOUS MEM Q2H PRN PRN Reason: Sore Throat Multivitamins/Vitamin C (Multivitamin Tablet) 1 tab PO DAILY [facility] Last Admin: 12/31/23 11:06 Dose: 1 tab Pt Own (Culturelle (Probiotics 1 Cap)) 1 cap PO DAILY [facility] Last Admin: 12/31/23 11:21 Dose: 1 cap Nystatin (Nystatin Powder 15 Gm Bottle) 1 appl TOPICAL BID PRN; Protocol PRN Reason: Rash Last Admin: 12/25/23 11:07 Dose: 1 appl Olanzapine (Olanzapine 5 Mg Tablet) 5 mg PO TID PRN PRN Reason: agitation Last Admin: 12/28/23 15:34 Dose: 5 mg Paliperidone Palmitate (Paliperidone Palmitate 234 Mg/1.5 Ml Syringe) 234 mg IM Q30D [facility] Last Admin: 12/08/23 16:45 Dose: 234 mg Trazodone HCl (Trazodone Hcl 50 Mg Tablet) 50 mg PO BEDTIME MRX1 PRN PRN Reason: Insomnia Last Admin: 12/31/23 22:30 Dose: 50 mg Allergies Allergies Allergy/AdvReac Type Severity Reaction Status Date / Time kiwi [KIWI] Allergy Mild HIVES Verified 11/21/23 05:49 mold [MOLD EXTRACTS*] Allergy Mild HIVES Verified 11/21/23 05:49 Assessment & Plan Assessment & Plan (1) Schizoaffective disorder, bipolar type: Status: Acute Code(s): F25.0 - Schizoaffective disorder, bipolar type (2) Venous stasis: Status: Acute Code(s): I87.8 - Other specified disorders of veins Assessment and Plan: Cellulitis mimic Po Doxycycline for 10 days and topical steroids cover possible cellulitis superinfection hx of :Sepsis concerns with tachycardia and tachypnea. (not current 12/03/23) Treat venous stasis with elevation Follow with hospitalists as I do not assess this patients disposition ( am seeing on psychiatry. Check CBC unremarkable.) 12/31/23 Clozapine is being considered. (3) Chronic cellulitis: Status: Acute Code(s): L03.90 - Cellulitis, unspecified Plan 12/01/23: Continue current tx and plan 12/02/23: Continue current plan and tx Change Chlorpromazine daytime doses to prn. 12/03/23 - seems more labile with mother present - reassuring eval by hospitalist today- they are following closely with us but encouraging and supporting patient with compliance with stockings and leg elevation seem paramount 12/04/23- limited mobility did wear kenzie stockings- but won't wear slippers/shoes- difficulty raising her feet up - ongoing hypersexual content of thought/somatic preoccupation of PCOS- wanting to sign 3d 12/05/23 Patient mostly in her room limited mobility somatic preoccupations patient did sign a 3 day unrealistic expectation regarding outpatient setting 12/08/23 Change Chlorpromazine 100 mg HS to prn Decrease Valproate from 3000 mg daily to 2000 mg daily Sustenna 234 mg IM given today by team. 12/09/23 Continue to monitor for daytime sedation. 12/11/23 Continue treatment 12/12/23 Sx of bacterial vaginosis-antibiotic initiated. 12/14/23: Labs ordered for the a.m. 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 Patient labile episodes of being expansive overwhelmed anxiety times somatic paranoid delusional material did receive Invega injection 1 week ago should be a therapeutic dose unfortunately has. 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 Metronidazole gel QD for BV Cris Carballo's consult much appreciated. 01/01 O2 2L at HS Continue current regime Respiratory therapy consult much appreciated. 12/23 disorganized in speech and behavior; making sexualized comments to staff 12/24 little more calm today; still disorganized; continue current treatment plan 12/26/23: Continue current plan. Urology consult much appreciated. 12/28/23: Clozaril consideration. 12/29/23: Father is in agreement to trial Clozapine. Application submitted to [facility] 12/30/23: Preparing for Clozapine. Begin Depakote decrease by 500 mg daily. Father/HCP reviewing Clozapine [facility] If he is in agreement, will stop Chlorpromazine, obtain EKG and move forward with Clozapine initiation. 12/30: continue current management and treatment plan. 12/31: continue current management and treatment plan. Reason for continued inpatient stay Substantial Risk for: inability to function and rapid decompensation Time Spent With Patient Time: Total time managing care of this patient today ____ minutes.
[2024-01-01 11:25] VITALS: BP 177/95; PULSE 88; TEMP 36.4; O2SAT 100
[2024-01-01 11:39] VITALS: BP 177/59; BP 177/95; PULSE 88
[2024-01-01] MEDS: atenoloL 25 MG TABLET PO (11:39)
[2024-01-01] MEDS: Multivitamin TABLET 1 TAB PO (11:39)
[2024-01-01] MEDS: Furosemide 40 MG TABLET PO (11:39)
[2024-01-01] MEDS: Apixaban 5 MG TABLET PO ×2 (11:39→20:44)
[2024-01-01] MEDS: metFORMIN HCl ER 500 MG TAB.ER.24H PO (11:39)
[2024-01-01] MEDS: Divalproex Sodium Sprinkles 125 MG CAP.DR.SPR 1000 MG PO (11:40)
[2024-01-01] MEDS: Mineral Oil/Petrolatum,White 106 GM Tube 1 APPL TOPICAL (11:40)
[2024-01-01 11:48] LABS: Glucose, Whole Blood 89 mg/dL (60-115)
--- NOTE | 2024-01-01 11:53 | PC.NURSE ---
Addendum entered by Shagufta Vasquez RN 01/01/24 11:54: medications administered at 11:40am Original Note: pt refused scheduled 9am medications. im too tired, come back later .
--- NOTE | 2024-01-01 12:14 | PC.NURSE ---
pt continues to report lower abdominal pain rated 6/10 and is perseverative on receiving an ultrasound to r/o ovarian cysts in which she reports a past history of. nobody cares and I don't want to here because they rupture Provider SZ made aware verbally. No new orders given. Was told to discuss with team on Tuesday. Pt offered prn tylenol and refused. Pt currenty napping in room. Will continue to monitor.
[2024-01-01 12:16] VITALS: BP 149/89; PULSE 86; RESP 16; TEMP 36.4; O2SAT 100
[2024-01-01 14:23] LABS: Paliperidone 25.3 ng/mL (20.0-60.0)
[2024-01-01 15:55] LABS: CDiff Gene PCR NEGATIVE (Negative)
[2024-01-01 20:00] VITALS: BP 150/84; PULSE 88; RESP 20; TEMP 36.4; O2SAT 96
[2024-01-01 20:02] LABS: Glucose, Whole Blood 131 mg/dL (60-115)
[2024-01-01] MEDS: Docusate Sodium 100 MG CAPSULE PO (20:45)
[2024-01-01] MEDS: LORazepam 1 MG TABLET PO (20:45)
[2024-01-01] MEDS: Divalproex Sodium Sprinkles 125 MG CAP.DR.SPR 1500 MG PO (20:45)
[2024-01-01] MEDS: traZODone HCL 50 MG TABLET PO (20:45)
[2024-01-01] MEDS: lamoTRIgine 25 MG TABLET PO (20:45)
[2024-01-02 08:40] LABS: Glucose, Whole Blood 103 mg/dL (60-115)
[2024-01-02 08:41] VITALS: BP 172/86; PULSE 91; RESP 16; TEMP 36.4; O2SAT 95
[2024-01-02] MEDS: Multivitamin TABLET 1 TAB PO (09:12)
[2024-01-02] MEDS: Divalproex Sodium Sprinkles 125 MG CAP.DR.SPR 1000 MG PO (09:12)
[2024-01-02] MEDS: atenoloL 25 MG TABLET PO (09:12)
[2024-01-02] MEDS: metFORMIN HCl ER 500 MG TAB.ER.24H PO (09:13)
[2024-01-02] MEDS: Furosemide 40 MG TABLET PO (09:13)
[2024-01-02] MEDS: Apixaban 5 MG TABLET PO ×2 (09:13→21:46)
[2024-01-02] MEDS: Hydrocortisone 1 % Cream 28.35 GM TUBE 1 APPL TOPICAL ×2 (09:14→21:46)
[2024-01-02] MEDS: Mineral Oil/Petrolatum,White 106 GM Tube 1 APPL TOPICAL ×2 (09:15→21:46)
[2024-01-02] MEDS: chlorproMAZINE HCl 25 MG TABLET 75 MG PO ×3 (09:20→21:46)
--- NOTE | 2024-01-02 10:04 | HO.PSYCHPN ---
Subjective Subjective Date of Service: 01/02/24 Reason For Visit: manic aggressive Interim History: met with pt; discussed with team no change in presentation; cannot engage regarding treatment; calm but disorganized, sexually inappropriate, saying the phone deflates my titties.. asking for US, keila ibrahima... -Cdiff negative Mental Status Exam Mental Status Exam Patient Appearance: Unkempt Patient Orientation: Person and Place Level of Consciousness: Awake and Alert Patient Behavior: Talkative, Cooperative, Distractible, Confused and Good Eye Contact Behavior Comments: Disorganized; making sexually inappropriate comments to staff; currently calm; less often, intermittently starts yelling though quickly redirectable Mood Description: Calm Affect Description: Labile Patient Cognition Impaired: Yes Ability to Follow Directions: Good Speech Pattern: Spontaneous Speech Memory Description: Remote Impaired Hallucinations: None Delusions: Grandiose and Present Perceptual Disturbances: Derealization Thought Process: Illogical and Distracted Thought Content: positive for Flight of Ideas, positive for Circumstantial, positive for Perseveration, positive for Loose Associations, positive for Tangential and positive for Disorganized Depressive Symptoms: Insomnia, Difficulty Sleeping, Increased Fatigue and Low Self Esteem Judgement: Poor Diagnostics Vital Signs (24Hr): Vital Signs - 24 hr 01/01/24 11:25 01/01/24 11:39 01/01/24 11:39 Temperature 97.6 F Pulse Rate 88 88 Respiratory Rate Blood Pressure 177/95 H 177/95 H 177/59 H Pulse Oximetry 100 Oxygen Delivery Method Room Air 01/01/24 12:16 01/01/24 20:00 01/02/24 08:41 Temperature 97.6 F 97.6 F 97.6 F Pulse Rate 86 88 91 Respiratory Rate 16 20 16 Blood Pressure 149/89 H 150/84 H 172/86 H Pulse Oximetry 100 96 95 Oxygen Delivery Method Room Air Room Air Room Air BMI result Body Mass Index 62.5 Labs 12/30/23 19:08 12/29/23 09:51 Labs: Laboratory Results - last 48 hr 12/25/23 12/31/23 01/01/24 14:56 22:46 11:43 POC Glucose 156 H 89 Paliperidone 25.3 C. difficile Tox B Gene 01/01/24 01/01/24 01/02/24 14:22 19:59 08:36 POC Glucose 131 H 103 Paliperidone C. difficile Tox B Gene NEGATIVE Medications Medications Current Medications Acetaminophen (Acetaminophen 325 Mg Tablet) 650 mg PO Q6H PRN PRN Reason: Headache/Pain Mild Scale (1-3) Last Admin: 12/05/23 20:46 Dose: 650 mg Al Hydroxide/Mg Hydroxide (Magnesium Hydrox/Alum Hydrox 30 Ml Oral.Susp) 30 ml PO Q6H PRN PRN Reason: Heartburn/Nausea Last Admin: 11/29/23 22:00 Dose: 30 ml Apixaban (Apixaban 5 Mg Tablet) 5 mg PO BID [facility] Last Admin: 01/02/24 09:13 Dose: 5 mg Atenolol (Atenolol 25 Mg Tablet) 25 mg PO DAILY [facility]; Protocol Last Admin: 01/02/24 09:12 Dose: 25 mg Benzocaine (Throat Lozenge, Medicated Lozenge) 1 lozenge MUCOUS MEM Q2H PRN PRN Reason: Sore Throat Benzocaine (Throat Lozenge, Medicated Lozenge) 1 lozenge MUCOUS MEM Q2H PRN PRN Reason: Sore Throat Chlorpromazine HCl (Chlorpromazine Hcl 100 Mg Tablet) 100 mg PO BID PRN PRN Reason: psychosis, agitation Last Admin: 12/29/23 21:39 Dose: 100 mg Chlorpromazine HCl (Chlorpromazine Hcl 25 Mg Tablet) 75 mg PO TID@0700,1500,2100 [facility] Last Admin: 01/02/24 09:20 Dose: 75 mg Divalproex Sodium (Divalproex Sodium Sprinkles 125 Mg ) 1,500 mg PO BEDTIME [facility] Last Admin: 01/01/24 20:45 Dose: 1,500 mg Divalproex Sodium (Divalproex Sodium Sprinkles 125 Mg Spr) 1,000 mg PO DAILY [facility] Last Admin: 01/02/24 09:12 Dose: 1,000 mg Docusate Sodium (Docusate Sodium 100 Mg Capsule) 100 mg PO BEDTIME [facility] Last Admin: 01/01/24 20:45 Dose: 100 mg Furosemide (Furosemide 40 Mg Tablet) 40 mg PO DAILY [facility]; Protocol Last Admin: 01/02/24 09:13 Dose: 40 mg Hydrocortisone (Hydrocortisone 1 % Cream 28.35 Gm Tube) 1 appl TOPICAL BID [facility]; Protocol Last Admin: 01/02/24 09:14 Dose: 1 appl Hydroxyzine HCl (Hydroxyzine Hcl 25 Mg Tablet) 25 mg PO Q6H PRN PRN Reason: Anxiety Last Admin: 12/28/23 15:34 Dose: 25 mg Lactic Acid (Ammonium Lactate 12 % Lotion 226 Gm Bottle) 1 appl TOPICAL BID PRN; Protocol PRN Reason: Rash Last Admin: 12/26/23 09:45 Dose: 1 appl Lamotrigine (Lamotrigine 25 Mg Tablet) 25 mg PO BEDTIME [facility] Last Admin: 01/01/24 20:45 Dose: 25 mg Lidocaine (Lidocaine 4 % Patch Adh..Patch) 1 patch TRANSDERMA DAILY [facility]; Protocol Last Admin: 01/02/24 09:40 Dose: Not Given Lorazepam (Lorazepam 1 Mg Tablet) 1 mg PO BEDTIME PRN PRN Reason: insomnia,anxiety,agitation Last Admin: 01/01/24 20:45 Dose: 1 mg Magnesium Hydroxide (Milk Of Magnesia 30 Ml Oral.Susp) 30 ml PO DAILY PRN PRN Reason: Constipation Last Admin: 12/18/23 10:35 Dose: 30 ml Metformin HCl (Metformin Hcl Er 500 Mg Tab.Er.24h) 500 mg PO DAILY [facility] Last Admin: 01/02/24 09:13 Dose: 500 mg Metronidazole (Metronidazole 0.75 % Gel 45 Gm Tube) 1 appl TOPICAL DAILY [facility] Last Admin: 01/01/24 11:52 Dose: Not Given Multi-Ingred Cream/Lotion/Oil/Oint (Mineral Oil/Petrolatum,White 106 Gm Tube) 1 appl TOPICAL BID [facility] Last Admin: 01/02/24 09:15 Dose: 1 appl Multi-Ingred Medicated Throat [place] (Throat [place], Medicated 177 Ml Bottle) 1 spray MUCOUS MEM Q2H PRN PRN Reason: Sore Throat Multivitamins/Vitamin C (Multivitamin Tablet) 1 tab PO DAILY [facility] Last Admin: 01/02/24 09:12 Dose: 1 tab Pt Own (Culturelle (Probiotics 1 Cap)) 1 cap PO DAILY [facility] Last Admin: 01/02/24 09:13 Dose: 1 cap Nystatin (Nystatin Powder 15 Gm Bottle) 1 appl TOPICAL BID PRN; Protocol PRN Reason: Rash Last Admin: 12/25/23 11:07 Dose: 1 appl Olanzapine (Olanzapine 5 Mg Tablet) 5 mg PO TID PRN PRN Reason: agitation Last Admin: 12/28/23 15:34 Dose: 5 mg Paliperidone Palmitate (Paliperidone Palmitate 234 Mg/1.5 Ml Syringe) 234 mg IM Q30D [facility] Last Admin: 12/08/23 16:45 Dose: 234 mg Trazodone HCl (Trazodone Hcl 50 Mg Tablet) 50 mg PO BEDTIME MRX1 PRN PRN Reason: Insomnia Last Admin: 01/01/24 20:45 Dose: 50 mg Allergies Allergies Allergy/AdvReac Type Severity Reaction Status Date / Time kiwi [KIWI] Allergy Mild HIVES Verified 11/21/23 05:49 mold [MOLD EXTRACTS*] Allergy Mild HIVES Verified 11/21/23 05:49 Assessment & Plan Assessment & Plan (1) Schizoaffective disorder, bipolar type: Status: Acute Code(s): F25.0 - Schizoaffective disorder, bipolar type (2) Venous stasis: Status: Acute Code(s): I87.8 - Other specified disorders of veins Assessment and Plan: Cellulitis mimic Po Doxycycline for 10 days and topical steroids cover possible cellulitis superinfection hx of :Sepsis concerns with tachycardia and tachypnea. (not current 12/03/23) Treat venous stasis with elevation Follow with hospitalists as I do not assess this patients disposition ( am seeing on psychiatry. Check CBC unremarkable.) 12/31/23 Clozapine is being considered. (3) Chronic cellulitis: Status: Acute Code(s): L03.90 - Cellulitis, unspecified Plan 12/01/23: Continue current tx and plan 12/02/23: Continue current plan and tx Change Chlorpromazine daytime doses to prn. 12/03/23 - seems more labile with mother present - reassuring eval by hospitalist today- they are following closely with us but encouraging and supporting patient with compliance with stockings and leg elevation seem paramount 12/04/23- limited mobility did wear kenzie stockings- but won't wear slippers/shoes- difficulty raising her feet up - ongoing hypersexual content of thought/somatic preoccupation of PCOS- wanting to sign 3d 12/05/23 Patient mostly in her room limited mobility somatic preoccupations patient did sign a 3 day unrealistic expectation regarding outpatient setting 12/08/23 Change Chlorpromazine 100 mg HS to prn Decrease Valproate from 3000 mg daily to 2000 mg daily Sustenna 234 mg IM given today by team. 12/09/23 Continue to monitor for daytime sedation. 12/11/23 Continue treatment 12/12/23 Sx of bacterial vaginosis-antibiotic initiated. 12/14/23: Labs ordered for the a.m. 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 Patient labile episodes of being expansive overwhelmed anxiety times somatic paranoid delusional material did receive Invega injection 1 week ago should be a therapeutic dose unfortunately has. 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 Metronidazole gel QD for BV Cris Carballo's consult much appreciated. 01/01 O2 2L at HS Continue current regime Respiratory therapy consult much appreciated. 12/23 disorganized in speech and behavior; making sexualized comments to staff 12/24 little more calm today; still disorganized; continue current treatment plan 12/26/23: Continue current plan. Urology consult much appreciated. 12/28/23: Clozaril consideration. 12/29/23: Father is in agreement to trial Clozapine. Application submitted to [facility] 12/30/23: Preparing for Clozapine. Begin Depakote decrease by 500 mg daily. Father/HCP reviewing Clozapine [facility] If he is in agreement, will stop Chlorpromazine, obtain EKG and move forward with Clozapine initiation. 12/30: continue current management and treatment plan. 12/31: continue current management and treatment plan. Patient educated on: diagnosis Informed Consent: does not understand Reason for continued inpatient stay Substantial Risk for: inability to function Time Spent With Patient Time: Total time managing care of this patient today ____ minutes.
[2024-01-02] MEDS: metroNIDAZOLE 0.75 % Gel 45 GM TUBE 1 APPL TOPICAL (11:02)
[2024-01-02 20:00] VITALS: BP 134/87; PULSE 94; RESP 18; TEMP 36.4; O2SAT 94
[2024-01-02 21:15] LABS: Glucose, Whole Blood 138 mg/dL (60-115)
[2024-01-02] MEDS: Docusate Sodium 100 MG CAPSULE PO (21:46)
[2024-01-02] MEDS: lamoTRIgine 25 MG TABLET PO (21:46)
[2024-01-02] MEDS: Divalproex Sodium Sprinkles 125 MG CAP.DR.SPR 1500 MG PO (21:46)
[2024-01-03 08:29] LABS: Glucose, Whole Blood 93 mg/dL (60-115)
[2024-01-03 10:42] VITALS: BP 135/70; PULSE 100; RESP 16; TEMP 36.7; O2SAT 98
[2024-01-03 10:52] VITALS: BP 135/70; PULSE 100
[2024-01-03] MEDS: atenoloL 25 MG TABLET PO (10:52)
[2024-01-03] MEDS: Furosemide 40 MG TABLET PO (10:52)
[2024-01-03] MEDS: Multivitamin TABLET 1 TAB PO (10:52)
[2024-01-03] MEDS: metFORMIN HCl ER 500 MG TAB.ER.24H PO (10:52)
[2024-01-03] MEDS: Apixaban 5 MG TABLET PO ×2 (10:53→20:37)
[2024-01-03] MEDS: Divalproex Sodium Sprinkles 125 MG CAP.DR.SPR 1000 MG PO (10:53)
[2024-01-03] MEDS: chlorproMAZINE HCl 25 MG TABLET 75 MG PO ×2 (10:56→20:37)
[2024-01-03] MEDS: chlorproMAZINE HCl 100 MG TABLET PO (15:24)
[2024-01-03] MEDS: OLANZapine 5 MG TABLET PO (15:24)
[2024-01-03] MEDS: hydrOXYzine HCL 25 MG TABLET PO (15:24)
--- NOTE | 2024-01-03 16:22 | PC.NURSE ---
At 1550, pt walked down the hallway and shouted that she needed a brim curler. Pt passed a staff member standing by the doorway to let visitors leave the unit. Pt raised a fist and shouted ?Boom!? as pt brought the fist within six inches of the staff member?s face. Pt appeared redirectable but appeared to have very limited insight. Pt stated, ?She was talking dirty to me with her eyelashes.??
--- NOTE | 2024-01-03 17:56 | HO.PSYCHPN ---
Subjective Subjective Date of Service: 01/03/24 Reason For Visit: manic aggressive Subjective Notes: Conditional Voluntary Healthcare Proxy: Yes Guardianship: No Medical Problems Affecting Mental Status: No Interim History: Zeinab remains irritable, labile and delusional at times, at times she is calmer. Depakote was decreased by 500 mg over the weekend and she has tolerated this. Received two messages from mother who is opposed to Clozapine. Received a message from father, HCP who is approving of Clozapine. Reviewed questions father had regarding Clozapine. His questions include potential constipation, how the labs are scheduled weekly, how this would affect her status with infections. Family will discuss their views and will get back to the team. Medication Compliance: Yes Side effects from medications: No Attending Groups: No Review of Systems Acute medical concerns: No Medical Review of Systems: unchanged Review of Systems Review of Systems Yes Unobtainable due to mental status Mental Status Exam Mental Status Exam Patient Appearance: Appropriate Patient Orientation: Person, Place and Situation Level of Consciousness: Alert Patient Behavior: Talkative, Cooperative, Fearful (worries about her family and her health), Fatigued, Confused and Good Eye Contact Mood Description: Hostile and Labile Affect Description: Labile Patient Cognition Impaired: Yes Ability to Follow Directions: Good Speech Pattern: Spontaneous Speech Memory Description: Episodic Impaired Hallucinations: None Delusions: Paranoid Ideation and Present Perceptual Disturbances: Depersonalization and Derealization Thought Process: Illogical, Distracted, Rumination and Confusion Thought Content: positive for Flight of Ideas, positive for Circumstantial, positive for Perseveration, positive for Tangential and positive for Suicidal Ideation (denies) Depressive Symptoms: Increased Anxiety, Increased Irritability, Unhappiness, Low Self Esteem and Difficulty Concentrating Abnormal Motor Activity Signs and Symptoms: Agitation Judgement: Poor Diagnostics Vital Signs (24Hr): Vital Signs - 24 hr 01/02/24 20:00 01/03/24 10:42 01/03/24 10:52 Temperature 97.6 F 98.0 F Pulse Rate 94 100 100 Respiratory Rate 18 16 Blood Pressure 134/87 135/70 135/70 Pulse Oximetry 94 98 Oxygen Delivery Method Room Air Room Air 01/03/24 10:52 Temperature Pulse Rate Respiratory Rate Blood Pressure 135/70 Pulse Oximetry Oxygen Delivery Method BMI result Body Mass Index 62.5 Labs 12/30/23 19:08 12/29/23 09:51 Labs: Laboratory Results - last 48 hr 01/01/24 01/02/24 01/02/24 19:59 08:36 21:05 POC Glucose 131 H 103 138 H 01/03/24 08:24 POC Glucose 93 Medications Medications Current Medications Acetaminophen (Acetaminophen 325 Mg Tablet) 650 mg PO Q6H PRN PRN Reason: Headache/Pain Mild Scale (1-3) Last Admin: 12/05/23 20:46 Dose: 650 mg Al Hydroxide/Mg Hydroxide (Magnesium Hydrox/Alum Hydrox 30 Ml Oral.Susp) 30 ml PO Q6H PRN PRN Reason: Heartburn/Nausea Last Admin: 11/29/23 22:00 Dose: 30 ml Apixaban (Apixaban 5 Mg Tablet) 5 mg PO BID [facility] Last Admin: 01/03/24 10:53 Dose: 5 mg Atenolol (Atenolol 25 Mg Tablet) 25 mg PO DAILY [facility]; Protocol Last Admin: 01/03/24 10:52 Dose: 25 mg Benzocaine (Throat Lozenge, Medicated Lozenge) 1 lozenge MUCOUS MEM Q2H PRN PRN Reason: Sore Throat Benzocaine (Throat Lozenge, Medicated Lozenge) 1 lozenge MUCOUS MEM Q2H PRN PRN Reason: Sore Throat Chlorpromazine HCl (Chlorpromazine Hcl 100 Mg Tablet) 100 mg PO BID PRN PRN Reason: psychosis, agitation Last Admin: 01/03/24 15:24 Dose: 100 mg Chlorpromazine HCl (Chlorpromazine Hcl 25 Mg Tablet) 75 mg PO TID@0700,1500,2100 [facility] Last Admin: 01/03/24 17:39 Dose: Not Given Divalproex Sodium (Divalproex Sodium Sprinkles 125 Mg Spr) 1,500 mg PO BEDTIME [facility] Last Admin: 01/02/24 21:46 Dose: 1,500 mg Divalproex Sodium (Divalproex Sodium Sprinkles 125 Mg Spr) 1,000 mg PO DAILY [facility] Last Admin: 01/03/24 10:53 Dose: 1,000 mg Docusate Sodium (Docusate Sodium 100 Mg Capsule) 100 mg PO BEDTIME [facility] Last Admin: 01/02/24 21:46 Dose: 100 mg Furosemide (Furosemide 40 Mg Tablet) 40 mg PO DAILY [facility]; Protocol Last Admin: 01/03/24 10:52 Dose: 40 mg Hydrocortisone (Hydrocortisone 1 % Cream 28.35 Gm Tube) 1 appl TOPICAL BID [facility]; Protocol Last Admin: 01/03/24 15:28 Dose: Not Given Hydroxyzine HCl (Hydroxyzine Hcl 25 Mg Tablet) 25 mg PO Q6H PRN PRN Reason: Anxiety Last Admin: 01/03/24 15:24 Dose: 25 mg Lactic Acid (Ammonium Lactate 12 % Lotion 226 Gm Bottle) 1 appl TOPICAL BID PRN; Protocol PRN Reason: Rash Last Admin: 12/26/23 09:45 Dose: 1 appl Lamotrigine (Lamotrigine 25 Mg Tablet) 25 mg PO BEDTIME [facility] Last Admin: 01/02/24 21:46 Dose: 25 mg Lidocaine (Lidocaine 4 % Patch Adh..Patch) 1 patch TRANSDERMA DAILY [facility]; Protocol Last Admin: 01/03/24 15:28 Dose: Not Given Lorazepam (Lorazepam 1 Mg Tablet) 1 mg PO BEDTIME PRN PRN Reason: insomnia,anxiety,agitation Last Admin: 01/01/24 20:45 Dose: 1 mg Magnesium Hydroxide (Milk Of Magnesia 30 Ml Oral.Susp) 30 ml PO DAILY PRN PRN Reason: Constipation Last Admin: 12/18/23 10:35 Dose: 30 ml Metformin HCl (Metformin Hcl Er 500 Mg Tab.Er.24h) 500 mg PO DAILY [facility] Last Admin: 01/03/24 10:52 Dose: 500 mg Metronidazole (Metronidazole 0.75 % Gel 45 Gm Tube) 1 appl TOPICAL DAILY [facility] Last Admin: 01/03/24 15:29 Dose: Not Given Multi-Ingred Cream/Lotion/Oil/Oint (Mineral Oil/Petrolatum,White 106 Gm Tube) 1 appl TOPICAL BID [facility] Last Admin: 01/03/24 15:29 Dose: Not Given Multi-Ingred Medicated Throat [place] (Throat [place], Medicated 177 Ml Bottle) 1 spray MUCOUS MEM Q2H PRN PRN Reason: Sore Throat Multivitamins/Vitamin C (Multivitamin Tablet) 1 tab PO DAILY [facility] Last Admin: 01/03/24 10:52 Dose: 1 tab Pt Own (Culturelle (Probiotics 1 Cap)) 1 cap PO DAILY [facility] Last Admin: 01/03/24 10:56 Dose: 1 cap Nystatin (Nystatin Powder 15 Gm Bottle) 1 appl TOPICAL BID PRN; Protocol PRN Reason: Rash Last Admin: 12/25/23 11:07 Dose: 1 appl Olanzapine (Olanzapine 5 Mg Tablet) 5 mg PO TID PRN PRN Reason: agitation Last Admin: 01/03/24 15:24 Dose: 5 mg Paliperidone Palmitate (Paliperidone Palmitate 234 Mg/1.5 Ml Syringe) 234 mg IM Q30D [facility] Last Admin: 12/08/23 16:45 Dose: 234 mg Trazodone HCl (Trazodone Hcl 50 Mg Tablet) 50 mg PO BEDTIME MRX1 PRN PRN Reason: Insomnia Last Admin: 01/01/24 20:45 Dose: 50 mg Allergies Allergies Allergy/AdvReac Type Severity Reaction Status Date / Time kiwi [KIWI] Allergy Mild HIVES Verified 11/21/23 05:49 mold [MOLD EXTRACTS*] Allergy Mild HIVES Verified 11/21/23 05:49 Assessment & Plan Assessment & Plan (1) Schizoaffective disorder, bipolar type: Status: Acute Code(s): F25.0 - Schizoaffective disorder, bipolar type (2) Venous stasis: Status: Acute Code(s): I87.8 - Other specified disorders of veins Assessment and Plan: Cellulitis mimic Po Doxycycline for 10 days and topical steroids cover possible cellulitis superinfection hx of :Sepsis concerns with tachycardia and tachypnea. (not current 12/03/23) Treat venous stasis with elevation Follow with hospitalists as I do not assess this patients disposition ( am seeing on psychiatry. Check CBC unremarkable.) 12/31/23 Clozapine is being considered. (3) Chronic cellulitis: Status: Acute Code(s): L03.90 - Cellulitis, unspecified Plan 12/01/23: Continue current tx and plan 12/02/23: Continue current plan and tx Change Chlorpromazine daytime doses to prn. 12/03/23 - seems more labile with mother present - reassuring eval by hospitalist today- they are following closely with us but encouraging and supporting patient with compliance with stockings and leg elevation seem paramount 12/04/23- limited mobility did wear kenzie stockings- but won't wear slippers/shoes- difficulty raising her feet up - ongoing hypersexual content of thought/somatic preoccupation of PCOS- wanting to sign 3d 12/05/23 Patient mostly in her room limited mobility somatic preoccupations patient did sign a 3 day unrealistic expectation regarding outpatient setting 12/08/23 Change Chlorpromazine 100 mg HS to prn Decrease Valproate from 3000 mg daily to 2000 mg daily Sustenna 234 mg IM given today by team. 12/09/23 Continue to monitor for daytime sedation. 12/11/23 Continue treatment 12/12/23 Sx of bacterial vaginosis-antibiotic initiated. 12/14/23: Labs ordered for the a.m. 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 Patient labile episodes of being expansive overwhelmed anxiety times somatic paranoid delusional material did receive Invega injection 1 week ago should be a therapeutic dose unfortunately has. 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 Metronidazole gel QD for BV Cris Carballo's consult much appreciated. 01/01 O2 2L at HS Continue current regime Respiratory therapy consult much appreciated. 12/23 disorganized in speech and behavior; making sexualized comments to staff 12/24 little more calm today; still disorganized; continue current treatment plan 12/26/23: Continue current plan. Urology consult much appreciated. 12/28/23: Clozaril consideration. 12/29/23: Father is in agreement to trial Clozapine. Application submitted to [facility] 12/30/23: Preparing for Clozapine. Begin Depakote decrease by 500 mg daily. Father/HCP reviewing Clozapine [facility] If he is in agreement, will stop Chlorpromazine, obtain EKG and move forward with Clozapine initiation. 12/30: continue current management and treatment plan. 12/31: continue current management and treatment plan. 01/03/24: Family continues to decide about Clozapine trial. No medication changes today. Reason for continued inpatient stay Substantial Risk for: rapid decompensation Time Spent With Patient Time: Total time managing care of this patient today ____ minutes.
[2024-01-03 20:00] VITALS: BP 144/68; PULSE 88; RESP 18; TEMP 36.6; O2SAT 95
[2024-01-03 20:13] LABS: Glucose, Whole Blood 152 mg/dL (60-115)
[2024-01-03] MEDS: Docusate Sodium 100 MG CAPSULE PO (20:37)
[2024-01-03] MEDS: LORazepam 1 MG TABLET PO (20:37)
[2024-01-03] MEDS: lamoTRIgine 25 MG TABLET PO (20:37)
[2024-01-03] MEDS: Divalproex Sodium Sprinkles 125 MG CAP.DR.SPR 1500 MG PO (20:38)
[2024-01-03] MEDS: Hydrocortisone 1 % Cream 28.35 GM TUBE 1 APPL TOPICAL (20:41)
[2024-01-03] MEDS: Mineral Oil/Petrolatum,White 106 GM Tube 1 APPL TOPICAL (20:41)
[2024-01-04] MEDS: chlorproMAZINE HCl 25 MG TABLET 75 MG PO ×2 (07:53→21:28)
[2024-01-04 08:00] VITALS: BP 135/88; PULSE 93; RESP 16; TEMP 36.1; O2SAT 98
[2024-01-04 08:17] LABS: Glucose, Whole Blood 102 mg/dL (60-115)
[2024-01-04 09:40] VITALS: BP 132/72; PULSE 88
[2024-01-04] MEDS: Divalproex Sodium Sprinkles 125 MG CAP.DR.SPR 1000 MG PO (09:46)
[2024-01-04] MEDS: atenoloL 25 MG TABLET PO (09:46)
[2024-01-04] MEDS: Multivitamin TABLET 1 TAB PO (09:46)
[2024-01-04] MEDS: metFORMIN HCl ER 500 MG TAB.ER.24H PO (09:46)
[2024-01-04] MEDS: Furosemide 40 MG TABLET PO (09:46)
[2024-01-04] MEDS: Apixaban 5 MG TABLET PO ×2 (09:46→21:24)
[2024-01-04] MEDS: Hydrocortisone 1 % Cream 28.35 GM TUBE 1 APPL TOPICAL ×2 (10:11→21:25)
[2024-01-04] MEDS: metroNIDAZOLE 0.75 % Gel 45 GM TUBE 1 APPL TOPICAL (10:11)
[2024-01-04] MEDS: Mineral Oil/Petrolatum,White 106 GM Tube 1 APPL TOPICAL ×2 (10:11→21:25)
--- NOTE | 2024-01-04 19:22 | P.PNPSI_ITS ---
Subjective Subjective Date of Service: 01/05/24 Reason For Visit: manic aggressive Subjective Notes: Conditional Voluntary Healthcare Proxy: Yes Guardianship: No Medical Problems Affecting Mental Status: No Interim History: Calmer today Continues with perseverative focus on her health, family health. At times denies sx, at times affirms sx-, need for sonogram, need for , yet denies physical sx. Tells team today that she is lactating with no evidence of this. Family continues to discuss potential Clozaril trial. We await their decision. Medication Compliance: Yes Side effects from medications: No Attending Groups: No Review of Systems Acute medical concerns: No Medical Review of Systems: unchanged Review of Systems Review of Systems intermittent at times. Mental Status Exam Mental Status Exam Patient Appearance: Appropriate Patient Orientation: Person, Place and Situation Level of Consciousness: Alert Patient Behavior: Talkative, Cooperative, Fearful (worries about her family and her health), Fatigued, Confused and Good Eye Contact Mood Description: Hostile and Labile Affect Description: Labile Patient Cognition Impaired: Yes Ability to Follow Directions: Good Speech Pattern: Spontaneous Speech Memory Description: Episodic Impaired Hallucinations: None Delusions: Paranoid Ideation and Present Perceptual Disturbances: Depersonalization and Derealization Thought Process: Illogical, Distracted, Rumination and Confusion Thought Content: positive for Flight of Ideas, positive for Circumstantial, positive for Perseveration, positive for Tangential and positive for Suicidal Ideation (denies) Depressive Symptoms: Increased Anxiety, Increased Irritability, Unhappiness, Low Self Esteem and Difficulty Concentrating Abnormal Motor Activity Signs and Symptoms: Agitation Judgement: Poor Diagnostics Vital Signs (24Hr): Vital Signs - 24 hr 01/03/24 20:00 01/04/24 08:00 01/04/24 09:40 Temperature 97.8 F 97 F Pulse Rate 88 93 88 Respiratory Rate 18 16 Blood Pressure 144/68 H 135/88 132/72 Pulse Oximetry 95 98 Oxygen Delivery Method Room Air Room Air BMI result Body Mass Index 62.5 Labs 12/30/23 19:08 12/29/23 09:51 Labs: Laboratory Results - last 48 hr 01/02/24 01/03/24 01/03/24 21:05 08:24 20:10 POC Glucose 138 H 93 152 H 01/04/24 08:10 POC Glucose 102 Imaging Radiology Impressions: ITS Impressions Ankle X-Ray 01/03/24 19:05 IMPRESSION: 1. No radiographic evidence of bone destruction to suggest osteomyelitis. 2. Soft tissue swelling around the ankle. 3. Large posterior calcaneal spur. Medications Medications Current Medications Acetaminophen (Acetaminophen 325 Mg Tablet) 650 mg PO Q6H PRN PRN Reason: Headache/Pain Mild Scale (1-3) Last Admin: 12/05/23 20:46 Dose: 650 mg Al Hydroxide/Mg Hydroxide (Magnesium Hydrox/Alum Hydrox 30 Ml Oral.Susp) 30 ml PO Q6H PRN PRN Reason: Heartburn/Nausea Last Admin: 11/29/23 22:00 Dose: 30 ml Apixaban (Apixaban 5 Mg Tablet) 5 mg PO BID [facility] Last Admin: 01/04/24 09:46 Dose: 5 mg Atenolol (Atenolol 25 Mg Tablet) 25 mg PO DAILY [facility]; Protocol Last Admin: 01/04/24 09:46 Dose: 25 mg Benzocaine (Throat Lozenge, Medicated Lozenge) 1 lozenge MUCOUS MEM Q2H PRN PRN Reason: Sore Throat Benzocaine (Throat Lozenge, Medicated Lozenge) 1 lozenge MUCOUS MEM Q2H PRN PRN Reason: Sore Throat Chlorpromazine HCl (Chlorpromazine Hcl 100 Mg Tablet) 100 mg PO BID PRN PRN Reason: psychosis, agitation Last Admin: 01/03/24 15:24 Dose: 100 mg Chlorpromazine HCl (Chlorpromazine Hcl 25 Mg Tablet) 75 mg PO TID@0700,1500,2100 [facility] Last Admin: 01/04/24 19:08 Dose: Not Given Divalproex Sodium (Divalproex Sodium Sprinkles 125 Mg Spr) 1,500 mg PO BEDTIME [facility] Last Admin: 01/03/24 20:38 Dose: 1,500 mg Divalproex Sodium (Divalproex Sodium Sprinkles 125 Mg Spr) 1,000 mg PO DAILY [facility] Last Admin: 01/04/24 09:46 Dose: 1,000 mg Docusate Sodium (Docusate Sodium 100 Mg Capsule) 100 mg PO BEDTIME [facility] Last Admin: 01/03/24 20:37 Dose: 100 mg Furosemide (Furosemide 40 Mg Tablet) 40 mg PO DAILY [facility]; Protocol Last Admin: 01/04/24 09:46 Dose: 40 mg Hydrocortisone (Hydrocortisone 1 % Cream 28.35 Gm Tube) 1 appl TOPICAL BID [facility]; Protocol Last Admin: 01/04/24 10:11 Dose: 1 appl Hydroxyzine HCl (Hydroxyzine Hcl 25 Mg Tablet) 25 mg PO Q6H PRN PRN Reason: Anxiety Last Admin: 01/03/24 15:24 Dose: 25 mg Lactic Acid (Ammonium Lactate 12 % Lotion 226 Gm Bottle) 1 appl TOPICAL BID PRN; Protocol PRN Reason: Rash Last Admin: 12/26/23 09:45 Dose: 1 appl Lamotrigine (Lamotrigine 25 Mg Tablet) 25 mg PO BEDTIME [facility] Last Admin: 01/03/24 20:37 Dose: 25 mg Lidocaine (Lidocaine 4 % Patch Adh..Patch) 1 patch TRANSDERMA DAILY [facility]; Protocol Last Admin: 01/04/24 10:12 Dose: Not Given Lorazepam (Lorazepam 1 Mg Tablet) 1 mg PO BEDTIME PRN PRN Reason: insomnia,anxiety,agitation Last Admin: 01/03/24 20:37 Dose: 1 mg Magnesium Hydroxide (Milk Of Magnesia 30 Ml Oral.Susp) 30 ml PO DAILY PRN PRN Reason: Constipation Last Admin: 12/18/23 10:35 Dose: 30 ml Metformin HCl (Metformin Hcl Er 500 Mg Tab.Er.24h) 500 mg PO DAILY [facility] Last Admin: 01/04/24 09:46 Dose: 500 mg Metronidazole (Metronidazole 0.75 % Gel 45 Gm Tube) 1 appl TOPICAL DAILY [facility] Last Admin: 01/04/24 10:11 Dose: 1 appl Multi-Ingred Cream/Lotion/Oil/Oint (Mineral Oil/Petrolatum,White 106 Gm Tube) 1 appl TOPICAL BID [facility] Last Admin: 01/04/24 10:11 Dose: 1 appl Multi-Ingred Medicated Throat [place] (Throat [place], Medicated 177 Ml Bottle) 1 spray MUCOUS MEM Q2H PRN PRN Reason: Sore Throat Multivitamins/Vitamin C (Multivitamin Tablet) 1 tab PO DAILY [facility] Last Admin: 01/04/24 09:46 Dose: 1 tab Pt Own (Culturelle (Probiotics 1 Cap)) 1 cap PO DAILY [facility] Last Admin: 01/04/24 10:11 Dose: 1 cap Nystatin (Nystatin Powder 15 Gm Bottle) 1 appl TOPICAL BID PRN; Protocol PRN Reason: Rash Last Admin: 12/25/23 11:07 Dose: 1 appl Olanzapine (Olanzapine 5 Mg Tablet) 5 mg PO TID PRN PRN Reason: agitation Last Admin: 01/03/24 15:24 Dose: 5 mg Paliperidone Palmitate (Paliperidone Palmitate 234 Mg/1.5 Ml Syringe) 234 mg IM Q30D [facility] Last Admin: 12/08/23 16:45 Dose: 234 mg Trazodone HCl (Trazodone Hcl 50 Mg Tablet) 50 mg PO BEDTIME MRX1 PRN PRN Reason: Insomnia Last Admin: 01/01/24 20:45 Dose: 50 mg Allergies Allergies Allergy/AdvReac Type Severity Reaction Status Date / Time kiwi [KIWI] Allergy Mild HIVES Verified 11/21/23 05:49 mold [MOLD EXTRACTS*] Allergy Mild HIVES Verified 11/21/23 05:49 Assessment & Plan Assessment & Plan (1) Schizoaffective disorder, bipolar type: Status: Acute Code(s): F25.0 - Schizoaffective disorder, bipolar type (2) Venous stasis: Status: Acute Code(s): I87.8 - Other specified disorders of veins Assessment and Plan: Cellulitis mimic Po Doxycycline for 10 days and topical steroids cover possible cellulitis superinfection hx of :Sepsis concerns with tachycardia and tachypnea. (not current 12/03/23) Treat venous stasis with elevation Follow with hospitalists as I do not assess this patients disposition ( am seeing on psychiatry. Check CBC unremarkable.) 12/31/23 Clozapine is being considered. (3) Chronic cellulitis: Status: Acute Code(s): L03.90 - Cellulitis, unspecified Plan 12/01/23: Continue current tx and plan 12/02/23: Continue current plan and tx Change Chlorpromazine daytime doses to prn. 12/03/23 - seems more labile with mother present - reassuring eval by hospitalist today- they are following closely with us but encouraging and supporting patient with compliance with stockings and leg elevation seem paramount 12/04/23- limited mobility did wear kenzie stockings- but won't wear slippers/shoes- difficulty raising her feet up - ongoing hypersexual content of thought/somatic preoccupation of PCOS- wanting to sign 3d 12/05/23 Patient mostly in her room limited mobility somatic preoccupations patient did sign a 3 day unrealistic expectation regarding outpatient setting 12/08/23 Change Chlorpromazine 100 mg HS to prn Decrease Valproate from 3000 mg daily to 2000 mg daily Sustenna 234 mg IM given today by team. 12/09/23 Continue to monitor for daytime sedation. 12/11/23 Continue treatment 12/12/23 Sx of bacterial vaginosis-antibiotic initiated. 12/14/23: Labs ordered for the a.m. 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 Patient labile episodes of being expansive overwhelmed anxiety times somatic paranoid delusional material did receive Invega injection 1 week ago should be a therapeutic dose unfortunately has. 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 Metronidazole gel QD for BV Cris Carballo's consult much appreciated. 01/01 O2 2L at HS Continue current regime Respiratory therapy consult much appreciated. 12/23 disorganized in speech and behavior; making sexualized comments to staff 12/24 little more calm today; still disorganized; continue current treatment plan 12/26/23: Continue current plan. Urology consult much appreciated. 12/28/23: Clozaril consideration. 12/29/23: Father is in agreement to trial Clozapine. Application submitted to [facility] 12/30/23: Preparing for Clozapine. Begin Depakote decrease by 500 mg daily. Father/HCP reviewing Clozapine [facility] If he is in agreement, will stop Chlorpromazine, obtain EKG and move forward with Clozapine initiation. 12/30: continue current management and treatment plan. 12/31: continue current management and treatment plan. 01/03/24: Family continues to decide about Clozapine trial. No medication changes today. 01/04/24: Continue tx. Reason for continued inpatient stay Substantial Risk for: rapid decompensation and med/psych decompensation Time Spent With Patient Time: Total time managing care of this patient today ____ minutes.
[2024-01-04 20:00] VITALS: BP 154/99; PULSE 93; TEMP 36.4; O2SAT 95
[2024-01-04] MEDS: Divalproex Sodium Sprinkles 125 MG CAP.DR.SPR 1500 MG PO (21:22)
[2024-01-04] MEDS: Docusate Sodium 100 MG CAPSULE PO (21:24)
[2024-01-04] MEDS: lamoTRIgine 25 MG TABLET PO (21:24)
[2024-01-04 21:25] LABS: Glucose, Whole Blood 148 mg/dL (60-115)
[2024-01-05] MEDS: LORazepam 1 MG TABLET PO (00:36)
[2024-01-05] MEDS: hydrOXYzine HCL 25 MG TABLET PO (00:36)
[2024-01-05] MEDS: OLANZapine 5 MG TABLET PO (00:36)
[2024-01-05 07:00] VITALS: BMI 59.4
[2024-01-05 08:54] LABS: Glucose, Whole Blood 105 mg/dL (60-115)
[2024-01-05 09:10] VITALS: BP 139/84; PULSE 86; RESP 18; TEMP 36.4; O2SAT 98
[2024-01-05] MEDS: chlorproMAZINE HCl 25 MG TABLET 75 MG PO ×2 (09:14→15:14)
[2024-01-05 09:15] VITALS: BP 139/84; PULSE 86
[2024-01-05] MEDS: Divalproex Sodium Sprinkles 125 MG CAP.DR.SPR 1000 MG PO (09:15)
[2024-01-05] MEDS: Furosemide 40 MG TABLET PO (09:15)
[2024-01-05] MEDS: metFORMIN HCl ER 500 MG TAB.ER.24H PO (09:15)
[2024-01-05] MEDS: atenoloL 25 MG TABLET PO (09:15)
[2024-01-05] MEDS: Apixaban 5 MG TABLET PO ×2 (09:16→22:31)
[2024-01-05] MEDS: Multivitamin TABLET 1 TAB PO (09:16)
[2024-01-05] MEDS: Hydrocortisone 1 % Cream 28.35 GM TUBE 1 APPL TOPICAL ×2 (10:44→22:31)
[2024-01-05] MEDS: metroNIDAZOLE 0.75 % Gel 45 GM TUBE 1 APPL TOPICAL (10:44)
[2024-01-05] MEDS: Mineral Oil/Petrolatum,White 106 GM Tube 1 APPL TOPICAL ×2 (10:45→22:31)
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
[2024-01-05 20:00] VITALS: BP 162/71; PULSE 90; TEMP 36.4; O2SAT 98
[2024-01-05] MEDS: Divalproex Sodium Sprinkles 125 MG CAP.DR.SPR 1250 MG PO (22:30)
[2024-01-05] MEDS: Docusate Sodium 100 MG CAPSULE PO (22:31)
[2024-01-05] MEDS: lamoTRIgine 25 MG TABLET PO (22:31)
[2024-01-05 22:43] LABS: Glucose, Whole Blood 149 mg/dL (60-115)
[2024-01-06 08:19] LABS: Glucose, Whole Blood 123 mg/dL (60-115)
[2024-01-06] MEDS: Divalproex Sodium Sprinkles 125 MG CAP.DR.SPR 1250 MG PO ×2 (08:58→20:25)
[2024-01-06 09:00] VITALS: PULSE 89; RESP 16; TEMP 36.6
[2024-01-06 09:01] VITALS: BP 134/80
[2024-01-06] MEDS: Multivitamin TABLET 1 TAB PO (09:01)
[2024-01-06] MEDS: atenoloL 25 MG TABLET PO (09:01)
[2024-01-06] MEDS: metFORMIN HCl ER 500 MG TAB.ER.24H PO (09:01)
[2024-01-06] MEDS: Apixaban 5 MG TABLET PO ×2 (09:01→20:14)
[2024-01-06 09:02] VITALS: BP 134/80
[2024-01-06] MEDS: Furosemide 40 MG TABLET PO (09:02)
[2024-01-06] MEDS: metroNIDAZOLE 0.75 % Gel 45 GM TUBE 1 APPL TOPICAL (09:22)
[2024-01-06] MEDS: Mineral Oil/Petrolatum,White 106 GM Tube 1 APPL TOPICAL (09:24)
[2024-01-06] MEDS: Hydrocortisone 1 % Cream 28.35 GM TUBE 1 APPL TOPICAL (09:26)
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
[2024-01-06 20:00] VITALS: BP 155/97; PULSE 96; RESP 17; TEMP 36.6; O2SAT 97
[2024-01-06] MEDS: lamoTRIgine 25 MG TABLET PO (20:13)
[2024-01-06] MEDS: hydrOXYzine HCL 25 MG TABLET PO (20:13)
[2024-01-06] MEDS: Docusate Sodium 100 MG CAPSULE PO (20:14)
[2024-01-06] MEDS: LORazepam 1 MG TABLET PO (20:14)
[2024-01-06] MEDS: OLANZapine 5 MG TABLET PO (20:14)
[2024-01-06 22:10] VITALS: BMI 60.1
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
[2024-01-07 00:06] LABS: Glucose, Whole Blood 178 mg/dL (60-115)
[2024-01-07 07:55] LABS: Glucose, Whole Blood 102 mg/dL (60-115)
[2024-01-07 08:00] VITALS: BP 147/93; PULSE 99; RESP 18; TEMP 36.4; O2SAT 100
[2024-01-07 08:21] VITALS: BP 147/93; PULSE 99
[2024-01-07] MEDS: metFORMIN HCl ER 500 MG TAB.ER.24H PO (08:21)
[2024-01-07] MEDS: Apixaban 5 MG TABLET PO ×2 (08:21→21:32)
[2024-01-07] MEDS: Divalproex Sodium Sprinkles 125 MG CAP.DR.SPR 1250 MG PO ×2 (08:21→21:37)
[2024-01-07] MEDS: atenoloL 25 MG TABLET PO (08:21)
[2024-01-07 08:22] VITALS: BP 147/93
[2024-01-07] MEDS: Multivitamin TABLET 1 TAB PO (08:22)
[2024-01-07] MEDS: Furosemide 40 MG TABLET PO (08:22)
[2024-01-07] MEDS: Mineral Oil/Petrolatum,White 106 GM Tube 1 APPL TOPICAL ×2 (11:23→22:20)
[2024-01-07] MEDS: metroNIDAZOLE 0.75 % Gel 45 GM TUBE 1 APPL TOPICAL (11:24)
--- NOTE | 2024-01-07 14:14 | ECG_ITS ---
Test Reason : check qtc Blood Pressure : / mmHG Vent. Rate : 087 BPM Atrial Rate : 087 BPM P-R Int : 130 ms QRS Dur : 104 ms QT Int : 378 ms P-R-T Axes : 063 049 061 degrees QTc Int : 454 ms Artifact in tracing Normal sinus rhythm Normal ECG No significant changes when compared with the previous EKG of 22 december 2023 Referred By: Rianna Santos Electronically Signed By:SATHYA CHAVES
--- NOTE | 2024-01-07 15:32 | HO.PSYCHPN ---
Subjective Subjective Date of Service: 01/07/24 Reason For Visit: manic aggressive Interim History: Met with patient. Discussed with Nursing. Refused Invega long-acting injectable today. Reports not wanting to take this, but for very unclear reasons. Is elated. Sleep has been okay. Does endorse right foot swelling. Aware bilateral lower limb swelling has been a chronic issue. There is bilateral redness and some tenderness. No discharge or Increase temperature. That being said right lower limb and foot do appear larger than the left side, with some tenderness. Patient was unsure if she rolled her ankle at 1 point while pacing a lot. Will order ankle x-ray and also non urgent lower limb venous Doppler. After same will consider hospitalist consult. Hosp note 12/31/23: Pt seen at bedside at RN request for patient reassurance regarding BLE edema. Pt has had multiple evaluation for chronic ble edema with chronic venous stasis dermatitis. She has been complaint with compression stockings and improved hygeine overall. Today, appearance of BLE is actually markedly improved. There is still faint erythema of the distal aspect of the BLE and the posterior RLE but overall much improved. No significant warmth. Superfical lesion dorsum R foot well healing. Noevidence of infection. Continue with conservative measures as previously discussed Medication Compliance: No Side effects from medications: No Attending Groups: Yes Review of Systems Does endorse right foot swelling. Aware bilateral lower limb swelling has been a chronic issue. There is bilateral redness and some tenderness. No discharge or Increase temperature. That being said right lower limb and foot do appear larger than the left side, with some tenderness. Patient was unsure if she rolled her ankle at 1 point while pacing a lot. Will order ankle x-ray and also non urgent lower limb venous Doppler. After same will consider hospitalist consult. Review of Systems Review of Systems right lower limb discomfort and swelling Diagnostics Vital Signs (24Hr): Vital Signs - 24 hr 01/06/24 20:00 01/07/24 08:00 01/07/24 08:21 Temperature 97.9 F 97.5 F Pulse Rate 96 99 99 Respiratory Rate 17 18 Blood Pressure 155/97 H 147/93 H 147/93 H Pulse Oximetry 97 100 Oxygen Delivery Method Room Air Room Air 01/07/24 08:22 Temperature Pulse Rate Respiratory Rate Blood Pressure 147/93 H Pulse Oximetry Oxygen Delivery Method BMI result Body Mass Index 60.1 Labs 04/26/24 19:08 12/29/23 09:51 Labs: Laboratory Results - last 48 hr 01/05/24 01/06/24 01/06/24 22:37 08:09 23:57 POC Glucose 149 H 123 H 178 H 01/07/24 07:51 POC Glucose 102 Imaging Radiology Impressions: ITS Impressions Ankle X-Ray 01/03/24 19:05 IMPRESSION: 1. No radiographic evidence of bone destruction to suggest osteomyelitis. 2. Soft tissue swelling around the ankle. 3. Large posterior calcaneal spur. Medications Medications Current Medications Acetaminophen (Acetaminophen 325 Mg Tablet) 650 mg PO Q6H PRN PRN Reason: Headache/Pain Mild Scale (1-3) Last Admin: 12/05/23 20:46 Dose: 650 mg Al Hydroxide/Mg Hydroxide (Magnesium Hydrox/Alum Hydrox 30 Ml Oral.Susp) 30 ml PO Q6H PRN PRN Reason: Heartburn/Nausea Last Admin: 11/29/23 22:00 Dose: 30 ml Apixaban (Apixaban 5 Mg Tablet) 5 mg PO BID [facility] Last Admin: 01/07/24 08:21 Dose: 5 mg Atenolol (Atenolol 25 Mg Tablet) 25 mg PO DAILY INOCENCIO; Protocol Last Admin: 01/07/24 08:21 Dose: 25 mg Benzocaine (Throat Lozenge, Medicated Lozenge) 1 lozenge MUCOUS MEM Q2H PRN PRN Reason: Sore Throat Benzocaine (Throat Lozenge, Medicated Lozenge) 1 lozenge MUCOUS MEM Q2H PRN PRN Reason: Sore Throat Clozapine (Clozapine 25 Mg Tablet) 25 mg PO BEDTIME INOCENCIO Divalproex Sodium (Divalproex Sodium Sprinkles 125 Mg ) 1,250 mg PO BID INOCENCIO Last Admin: 01/07/24 08:21 Dose: 1,250 mg Docusate Sodium (Docusate Sodium 100 Mg Capsule) 100 mg PO BEDTIME INOCENCIO Last Admin: 01/06/24 20:14 Dose: 100 mg Furosemide (Furosemide 40 Mg Tablet) 40 mg PO DAILY INOCENCIO; Protocol Last Admin: 01/07/24 08:22 Dose: 40 mg Hydrocortisone (Hydrocortisone 1 % Cream 28.35 Gm Tube) 1 appl TOPICAL BID INOCENCIO; Protocol Last Admin: 01/07/24 11:24 Dose: Not Given Hydroxyzine HCl (Hydroxyzine Hcl 25 Mg Tablet) 25 mg PO Q6H PRN PRN Reason: Anxiety Last Admin: 01/06/24 20:13 Dose: 25 mg Lactic Acid (Ammonium Lactate 12 % Lotion 226 Gm Bottle) 1 appl TOPICAL BID PRN; Protocol PRN Reason: Rash Last Admin: 12/26/23 09:45 Dose: 1 appl Lamotrigine (Lamotrigine 25 Mg Tablet) 25 mg PO BEDTIME INOCENCIO Last Admin: 01/06/24 20:13 Dose: 25 mg Lidocaine (Lidocaine 4 % Patch Adh..Patch) 1 patch TRANSDERMA DAILY INOCENCIO; Protocol Last Admin: 01/07/24 08:22 Dose: Not Given Lorazepam (Lorazepam 1 Mg Tablet) 1 mg PO BEDTIME PRN PRN Reason: insomnia,anxiety,agitation Last Admin: 01/06/24 20:14 Dose: 1 mg Magnesium Hydroxide (Milk Of Magnesia 30 Ml Oral.Susp) 30 ml PO DAILY PRN PRN Reason: Constipation Last Admin: 12/18/23 10:35 Dose: 30 ml Metformin HCl (Metformin Hcl Er 500 Mg Tab.Er.24h) 500 mg PO DAILY INOCENCIO Last Admin: 01/07/24 08:21 Dose: 500 mg Metronidazole (Metronidazole 0.75 % Gel 45 Gm Tube) 1 appl TOPICAL DAILY INOCENCIO Last Admin: 01/07/24 11:24 Dose: 1 appl Multi-Ingred Cream/Lotion/Oil/Oint (Mineral Oil/Petrolatum,White 106 Gm Tube) 1 appl TOPICAL BID INOCENCIO Last Admin: 01/07/24 11:23 Dose: 1 appl Multi-Ingred Medicated Throat Cowdrey (Throat [place], Medicated 177 Ml Bottle) 1 spray MUCOUS MEM Q2H PRN PRN Reason: Sore Throat Multivitamins/Vitamin C (Multivitamin Tablet) 1 tab PO DAILY INOCENCIO Last Admin: 01/07/24 08:22 Dose: 1 tab Pt Own (Culturelle (Probiotics 1 Cap)) 1 cap PO DAILY INOCENCIO Last Admin: 01/07/24 08:21 Dose: 1 cap Nystatin (Nystatin Powder 15 Gm Bottle) 1 appl TOPICAL BID PRN; Protocol PRN Reason: Rash Last Admin: 12/25/23 11:07 Dose: 1 appl Olanzapine (Olanzapine 5 Mg Tablet) 5 mg PO TID PRN PRN Reason: agitation Last Admin: 01/06/24 20:14 Dose: 5 mg Trazodone HCl (Trazodone Hcl 50 Mg Tablet) 50 mg PO BEDTIME MRX1 PRN PRN Reason: Insomnia Last Admin: 01/01/24 20:45 Dose: 50 mg Allergies Allergies Allergy/AdvReac Type Severity Reaction Status Date / Time kiwi [KIWI] Allergy Mild HIVES Verified 11/21/23 05:49 mold [MOLD EXTRACTS*] Allergy Mild HIVES Verified 11/21/23 05:49 Assessment & Plan Assessment & Plan (1) Schizoaffective disorder, bipolar type: Status: Acute Code(s): F25.0 - Schizoaffective disorder, bipolar type Assessment and Plan: 12/01/23: Continue current tx and plan 12/02/23: Continue current plan and tx Change Chlorpromazine daytime doses to prn. 12/03/23 - seems more labile with mother present - reassuring eval by hospitalist today- they are following closely with us but encouraging and supporting patient with compliance with stockings and leg elevation seem paramount 12/04/23- limited mobility did wear kenzie stockings- but won't wear slippers/shoes- difficulty raising her feet up - ongoing hypersexual content of thought/somatic preoccupation of PCOS- wanting to sign 3d 12/05/23 Patient mostly in her room limited mobility somatic preoccupations patient did sign a 3 day unrealistic expectation regarding outpatient setting 12/08/23 Change Chlorpromazine 100 mg HS to prn Decrease Valproate from 3000 mg daily to 2000 mg daily Sustenna 234 mg IM given today by team. 12/09/23 Continue to monitor for daytime sedation. 12/11/23 Continue treatment 12/12/23 Sx of bacterial vaginosis-antibiotic initiated. 12/14/23: Labs ordered for the a.m. 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 Patient labile episodes of being expansive overwhelmed anxiety times somatic paranoid delusional material did receive Invega injection 1 week ago should be a therapeutic dose unfortunately has. 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 Metronidazole gel QD for BV Cris Carballo's consult much appreciated. 01/01 O2 2L at HS Continue current regime Respiratory therapy consult much appreciated. 12/23 disorganized in speech and behavior; making sexualized comments to staff 12/24 little more calm today; still disorganized; continue current treatment plan 12/26/23: Continue current plan. Urology consult much appreciated. 12/28/23: Clozaril consideration. 12/29/23: Father is in agreement to trial Clozapine. Application submitted to [facility] 12/30/23: Preparing for Clozapine. Begin Depakote decrease by 500 mg daily. Father/HCP reviewing Clozapine [facility] If he is in agreement, will stop Chlorpromazine, obtain EKG and move forward with Clozapine initiation. 12/30: continue current management and treatment plan. 12/31: continue current management and treatment plan. 01/06/24: Continue plan. 01/06: strongly encouraged Invega long-acting injectable. Patient reports he might take this tomorrow. Does endorse right foot swelling. Aware bilateral lower limb swelling has been a chronic issue. There is bilateral redness and some tenderness. No discharge or Increase temperature. That being said right lower limb and foot do appear larger than the left side, with some tenderness. Patient was unsure if she rolled her ankle at 1 point while pacing a lot. Will order ankle x-ray and also non urgent lower limb venous Doppler. After same will consider hospitalist consult. (2) Venous stasis: Status: Acute Code(s): I87.8 - Other specified disorders of veins Assessment and Plan: Hosp note 12/31/23: Pt seen at bedside at RN request for patient reassurance regarding BLE edema. Pt has had multiple evaluation for chronic ble edema with chronic venous stasis dermatitis. She has been complaint with compression stockings and improved hygeine overall. Today, appearance of BLE is actually markedly improved. There is still faint erythema of the distal aspect of the BLE and the posterior RLE but overall much improved. No significant warmth. Superfical lesion dorsum R foot well healing. Noevidence of infection. Continue with conservative measures as previously discussed (3) Chronic cellulitis: Status: Acute Code(s): L03.90 - Cellulitis, unspecified Plan 12/01/23: Continue current tx and plan 12/02/23: Continue current plan and tx Change Chlorpromazine daytime doses to prn. 12/03/23 - seems more labile with mother present - reassuring eval by hospitalist today- they are following closely with us but encouraging and supporting patient with compliance with stockings and leg elevation seem paramount 12/04/23- limited mobility did wear kenzie stockings- but won't wear slippers/shoes- difficulty raising her feet up - ongoing hypersexual content of thought/somatic preoccupation of PCOS- wanting to sign 3d 12/05/23 Patient mostly in her room limited mobility somatic preoccupations patient did sign a 3 day unrealistic expectation regarding outpatient setting 12/08/23 Change Chlorpromazine 100 mg HS to prn Decrease Valproate from 3000 mg daily to 2000 mg daily Sustenna 234 mg IM given today by team. 12/09/23 Continue to monitor for daytime sedation. 12/11/23 Continue treatment 12/12/23 Sx of bacterial vaginosis-antibiotic initiated. 12/14/23: Labs ordered for the a.m. 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 Patient labile episodes of being expansive overwhelmed anxiety times somatic paranoid delusional material did receive Invega injection 1 week ago should be a therapeutic dose unfortunately has. 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 Metronidazole gel QD for BV Cris Carballo's consult much appreciated. 01/01 O2 2L at HS Continue current regime Respiratory therapy consult much appreciated. 12/23 disorganized in speech and behavior; making sexualized comments to staff 12/24 little more calm today; still disorganized; continue current treatment plan 12/26/23: Continue current plan. Urology consult much appreciated. 12/28/23: Clozaril consideration. 12/29/23: Father is in agreement to trial Clozapine. Application submitted to [facility] 12/30/23: Preparing for Clozapine. Begin Depakote decrease by 500 mg daily. Father/HCP reviewing Clozapine [facility] If he is in agreement, will stop Chlorpromazine, obtain EKG and move forward with Clozapine initiation. 12/30: continue current management and treatment plan. 12/31: continue current management and treatment plan. 01/06/24: Continue plan. Reason for continued inpatient stay Substantial Risk for: inability to function Time Spent With Patient Time: Total time managing care of this patient today ____ minutes.
[2024-01-07] MEDS: LORazepam 1 MG TABLET 2 MG PO (17:30)
[2024-01-07 20:00] VITALS: BP 116/55; PULSE 97; RESP 17; TEMP 36.7; O2SAT 98
[2024-01-07] MEDS: lamoTRIgine 25 MG TABLET PO (21:32)
[2024-01-07] MEDS: hydrOXYzine HCL 25 MG TABLET PO (21:32)
[2024-01-07] MEDS: OLANZapine 5 MG TABLET PO (21:32)
[2024-01-07] MEDS: LORazepam 1 MG TABLET PO (21:32)
[2024-01-07] MEDS: traZODone HCL 50 MG TABLET PO (21:33)
[2024-01-07] MEDS: Docusate Sodium 100 MG CAPSULE PO (21:35)
[2024-01-07 21:44] LABS: Glucose, Whole Blood 164 mg/dL (60-115)
[2024-01-07] MEDS: Hydrocortisone 1 % Cream 28.35 GM TUBE 1 APPL TOPICAL (22:21)
--- NOTE | 2024-01-08 06:24 | PC.NURSE ---
pt refused O2 on overnight shift
[2024-01-08 08:57] LABS: Glucose, Whole Blood 100 mg/dL (60-115)
[2024-01-08 09:08] VITALS: BP 140/83; PULSE 100; RESP 18; TEMP 36.7; O2SAT 97
[2024-01-08] MEDS: Divalproex Sodium Sprinkles 125 MG CAP.DR.SPR 1250 MG PO ×2 (09:10→21:14)
[2024-01-08 09:11] VITALS: BP 140/83; PULSE 100
[2024-01-08] MEDS: Furosemide 40 MG TABLET PO (09:11)
[2024-01-08] MEDS: metFORMIN HCl ER 500 MG TAB.ER.24H PO (09:11)
[2024-01-08] MEDS: Multivitamin TABLET 1 TAB PO (09:11)
[2024-01-08] MEDS: Apixaban 5 MG TABLET PO ×2 (09:11→21:18)
[2024-01-08] MEDS: atenoloL 25 MG TABLET PO (09:11)
--- NOTE | 2024-01-08 10:42 | P.PNPSI_ITS ---
Subjective Subjective Date of Service: 01/08/24 Reason For Visit: manic aggressive Interim History: Met with patient. Discussed with Nursing. Accepted Invega long-acting injectable today. Is elated. Sleep has been okay. Rt foot remains more swollen than left and painful. Xray and doppler results pending. Hosp note 12/31/23: Pt seen at bedside at RN request for patient reassurance regarding BLE edema. Pt has had multiple evaluation for chronic ble edema with chronic venous stasis dermatitis. She has been complaint with compression stockings and improved hygeine overall. Today, appearance of BLE is actually markedly improved. There is still faint erythema of the distal aspect of the BLE and the posterior RLE but overall much improved. No significant warmth. Superfical lesion dorsum R foot well healing. Noevidence of infection. Continue with conservative measures as previously discussed Review of Systems Review of Systems right lower limb discomfort and swelling Mental Status Exam Mental Status Exam Narrative: Patient Appearance: Appropriate Patient Orientation: Person, Place, Time and Situation Level of Consciousness: Awake Patient Behavior: erraticm, Belligerent, Distractible, intense gaze, Disinhibited Mood Description: Labile, Elated, Expansive Affect Description: Suspicious, Labile, Bright, Expansive Patient Cognition Impaired: No Ability to Follow Directions: Fair Speech Pattern: Clear Memory Description: Episodic Impaired Hallucinations: None Thought Process: Racing and Distracted Thought Content: positive for Flight of Ideas, positive for Circumstantial and positive for Tangential Judgment: Fair Judgment and Insight: Patient with multiple bizarre preoccupations paranoid concerns flight of ideas elevated mood Diagnostics Vital Signs (24Hr): Vital Signs - 24 hr 01/07/24 20:00 01/08/24 09:08 01/08/24 09:11 Temperature 98.0 F 98.1 F Pulse Rate 97 100 100 Respiratory Rate 17 18 Blood Pressure 116/55 L 140/83 H 140/83 H Pulse Oximetry 98 97 Oxygen Delivery Method Room Air Room Air 01/08/24 09:11 Temperature Pulse Rate Respiratory Rate Blood Pressure 140/83 H Pulse Oximetry Oxygen Delivery Method BMI result Body Mass Index 60.1 Labs 12/30/23 19:08 12/29/23 09:51 Labs: Laboratory Results - last 48 hr 01/06/24 01/07/24 01/07/24 23:57 07:51 21:30 POC Glucose 178 H 102 164 H 01/08/24 08:52 POC Glucose 100 Imaging Radiology Impressions: ITS Impressions Ankle X-Ray 01/03/24 19:05 IMPRESSION: 1. No radiographic evidence of bone destruction to suggest osteomyelitis. 2. Soft tissue swelling around the ankle. 3. Large posterior calcaneal spur. Medications Medications Current Medications Acetaminophen (Acetaminophen 325 Mg Tablet) 650 mg PO Q6H PRN PRN Reason: Headache/Pain Mild Scale (1-3) Last Admin: 12/05/23 20:46 Dose: 650 mg Al Hydroxide/Mg Hydroxide (Magnesium Hydrox/Alum Hydrox 30 Ml Oral.Susp) 30 ml PO Q6H PRN PRN Reason: Heartburn/Nausea Last Admin: 11/29/23 22:00 Dose: 30 ml Apixaban (Apixaban 5 Mg Tablet) 5 mg PO BID [facility] Last Admin: 01/08/24 09:11 Dose: 5 mg Atenolol (Atenolol 25 Mg Tablet) 25 mg PO DAILY INOCENCIO; Protocol Last Admin: 01/08/24 09:11 Dose: 25 mg Benzocaine (Throat Lozenge, Medicated Lozenge) 1 lozenge MUCOUS MEM Q2H PRN PRN Reason: Sore Throat Benzocaine (Throat Lozenge, Medicated Lozenge) 1 lozenge MUCOUS MEM Q2H PRN PRN Reason: Sore Throat Clozapine (Clozapine 25 Mg Tablet) 25 mg PO BEDTIME INOCENCIO Divalproex Sodium (Divalproex Sodium Sprinkles 125 Mg Darvin.) 1,250 mg PO BID INOCENCIO Last Admin: 01/08/24 09:10 Dose: 1,250 mg Docusate Sodium (Docusate Sodium 100 Mg Capsule) 100 mg PO BEDTIME INOCENCIO Last Admin: 01/07/24 21:35 Dose: 100 mg Furosemide (Furosemide 40 Mg Tablet) 40 mg PO DAILY INOCENCIO; Protocol Last Admin: 01/08/24 09:11 Dose: 40 mg Hydrocortisone (Hydrocortisone 1 % Cream 28.35 Gm Tube) 1 appl TOPICAL BID INOCENCIO; Protocol Last Admin: 01/08/24 09:11 Dose: Not Given Hydroxyzine HCl (Hydroxyzine Hcl 25 Mg Tablet) 25 mg PO Q6H PRN PRN Reason: Anxiety Last Admin: 01/07/24 21:32 Dose: 25 mg Lactic Acid (Ammonium Lactate 12 % Lotion 226 Gm Bottle) 1 appl TOPICAL BID PRN; Protocol PRN Reason: Rash Last Admin: 12/26/23 09:45 Dose: 1 appl Lamotrigine (Lamotrigine 25 Mg Tablet) 25 mg PO BEDTIME INOCENCIO Last Admin: 01/07/24 21:32 Dose: 25 mg Lidocaine (Lidocaine 4 % Patch Adh..Patch) 1 patch TRANSDERMA DAILY INOCENCIO; Protocol Last Admin: 01/08/24 09:11 Dose: Not Given Lorazepam (Lorazepam 1 Mg Tablet) 1 mg PO BEDTIME PRN PRN Reason: insomnia,anxiety,agitation Last Admin: 01/07/24 21:32 Dose: 1 mg Lorazepam (Lorazepam 1 Mg Tablet) 1 mg PO Q6H PRN PRN Reason: severe anxiety Magnesium Hydroxide (Milk Of Magnesia 30 Ml Oral.Susp) 30 ml PO DAILY PRN PRN Reason: Constipation Last Admin: 12/18/23 10:35 Dose: 30 ml Metformin HCl (Metformin Hcl Er 500 Mg Tab.Er.24h) 500 mg PO DAILY INOCENCIO Last Admin: 01/08/24 09:11 Dose: 500 mg Metronidazole (Metronidazole 0.75 % Gel 45 Gm Tube) 1 appl TOPICAL DAILY INOCENCIO Last Admin: 01/07/24 11:24 Dose: 1 appl Multi-Ingred Cream/Lotion/Oil/Oint (Mineral Oil/Petrolatum,White 106 Gm Tube) 1 appl TOPICAL BID [facility] Last Admin: 01/08/24 09:26 Dose: Not Given Multi-Ingred Medicated Throat Morral (Throat Morral, Medicated 177 Ml Bottle) 1 spray MUCOUS MEM Q2H PRN PRN Reason: Sore Throat Multivitamins/Vitamin C (Multivitamin Tablet) 1 tab PO DAILY INOCENCIO Last Admin: 01/08/24 09:11 Dose: 1 tab Pt Own (Culturelle (Probiotics 1 Cap)) 1 cap PO DAILY [facility] Last Admin: 01/08/24 09:11 Dose: 1 cap Nystatin (Nystatin Powder 15 Gm Bottle) 1 appl TOPICAL BID PRN; Protocol PRN Reason: Rash Last Admin: 12/25/23 11:07 Dose: 1 appl Olanzapine (Olanzapine 5 Mg Tablet) 5 mg PO TID PRN PRN Reason: agitation Last Admin: 01/07/24 21:32 Dose: 5 mg Trazodone HCl (Trazodone Hcl 50 Mg Tablet) 50 mg PO BEDTIME MRX1 PRN PRN Reason: Insomnia Last Admin: 01/07/24 21:33 Dose: 50 mg Allergies Allergies Allergy/AdvReac Type Severity Reaction Status Date / Time kiwi [KIWI] Allergy Mild HIVES Verified 11/21/23 05:49 mold [MOLD EXTRACTS*] Allergy Mild HIVES Verified 11/21/23 05:49 Assessment & Plan Assessment & Plan (1) Schizoaffective disorder, bipolar type: Status: Acute Code(s): F25.0 - Schizoaffective disorder, bipolar type Assessment and Plan: 12/01/23: Continue current tx and plan 12/02/23: Continue current plan and tx Change Chlorpromazine daytime doses to prn. 12/03/23 - seems more labile with mother present - reassuring eval by hospitalist today- they are following closely with us but encouraging and supporting patient with compliance with stockings and leg elevation seem paramount 12/04/23- limited mobility did wear kenzie stockings- but won't wear slippers/shoes- difficulty raising her feet up - ongoing hypersexual content of thought/somatic preoccupation of PCOS- wanting to sign 3d 12/05/23 Patient mostly in her room limited mobility somatic preoccupations patient did sign a 3 day unrealistic expectation regarding outpatient setting 12/08/23 Change Chlorpromazine 100 mg HS to prn Decrease Valproate from 3000 mg daily to 2000 mg daily Sustenna 234 mg IM given today by team. 12/09/23 Continue to monitor for daytime sedation. 12/11/23 Continue treatment 12/12/23 Sx of bacterial vaginosis-antibiotic initiated. 12/14/23: Labs ordered for the a.m. 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 Patient labile episodes of being expansive overwhelmed anxiety times somatic paranoid delusional material did receive Invega injection 1 week ago should be a therapeutic dose unfortunately has. 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 Metronidazole gel QD for BV Cris Carballo's consult much appreciated. 01/01 O2 2L at HS Continue current regime Respiratory therapy consult much appreciated. 12/23 disorganized in speech and behavior; making sexualized comments to staff 12/24 little more calm today; still disorganized; continue current treatment plan 12/26/23: Continue current plan. Urology consult much appreciated. 12/28/23: Clozaril consideration. 12/29/23: Father is in agreement to trial Clozapine. Application submitted to [facility] 12/30/23: Preparing for Clozapine. Begin Depakote decrease by 500 mg daily. Father/HCP reviewing Clozapine [facility] If he is in agreement, will stop Chlorpromazine, obtain EKG and move forward with Clozapine initiation. 12/30: continue current management and treatment plan. 12/31: continue current management and treatment plan. 01/06/24: Continue plan. 01/06: strongly encouraged Invega long-acting injectable. Patient reports he might take this tomorrow. Does endorse right foot swelling. Aware bilateral lower limb swelling has been a chronic issue. There is bilateral redness and some tenderness. No discharge or Increase temperature. That being said right lower limb and foot do appear larger than the left side, with some tenderness. Patient was unsure if she rolled her ankle at 1 point while pacing a lot. Will order ankle x-ray and also non urgent lower limb venous Doppler. After same will consider hospitalist consult. 01/07: accepted invega sustenna today. Doppler and xray results pending (2) Venous stasis: Status: Acute Code(s): I87.8 - Other specified disorders of veins Assessment and Plan: Hosp note 12/31/23: Pt seen at bedside at RN request for patient reassurance regarding BLE edema. Pt has had multiple evaluation for chronic ble edema with chronic venous stasis dermatitis. She has been complaint with compression stockings and improved hygeine overall. Today, appearance of BLE is actually markedly improved. There is still faint erythema of the distal aspect of the BLE and the posterior RLE but overall much improved. No significant warmth. Superfical lesion dorsum R foot well healing. Noevidence of infection. Continue with conservative measures as previously discussed (3) Chronic cellulitis: Status: Acute Code(s): L03.90 - Cellulitis, unspecified Plan 12/01/23: Continue current tx and plan 12/02/23: Continue current plan and tx Change Chlorpromazine daytime doses to prn. 12/03/23 - seems more labile with mother present - reassuring eval by hospitalist today- they are following closely with us but encouraging and supporting patient with compliance with stockings and leg elevation seem paramount 12/04/23- limited mobility did wear kenzie stockings- but won't wear slippers/shoes- difficulty raising her feet up - ongoing hypersexual content of thought/somatic preoccupation of PCOS- wanting to sign 3d 12/05/23 Patient mostly in her room limited mobility somatic preoccupations patient did sign a 3 day unrealistic expectation regarding outpatient setting 12/08/23 Change Chlorpromazine 100 mg HS to prn Decrease Valproate from 3000 mg daily to 2000 mg daily Sustenna 234 mg IM given today by team. 12/09/23 Continue to monitor for daytime sedation. 12/11/23 Continue treatment 12/12/23 Sx of bacterial vaginosis-antibiotic initiated. 12/14/23: Labs ordered for the a.m. 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 Patient labile episodes of being expansive overwhelmed anxiety times somatic paranoid delusional material did receive Invega injection 1 week ago should be a therapeutic dose unfortunately has. 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 Metronidazole gel QD for BV Cris Carballo's consult much appreciated. 01/01 O2 2L at HS Continue current regime Respiratory therapy consult much appreciated. 12/23 disorganized in speech and behavior; making sexualized comments to staff 12/24 little more calm today; still disorganized; continue current treatment plan 12/26/23: Continue current plan. Urology consult much appreciated. 12/28/23: Clozaril consideration. 12/29/23: Father is in agreement to trial Clozapine. Application submitted to [facility] 12/30/23: Preparing for Clozapine. Begin Depakote decrease by 500 mg daily. Father/HCP reviewing Clozapine [facility] If he is in agreement, will stop Chlorpromazine, obtain EKG and move forward with Clozapine initiation. 12/30: continue current management and treatment plan. 12/31: continue current management and treatment plan. 01/06/24: Continue plan. Reason for continued inpatient stay Substantial Risk for: rapid decompensation Time Spent With Patient Time: Total time managing care of this patient today ____ minutes.
[2024-01-08] MEDS: metroNIDAZOLE 0.75 % Gel 45 GM TUBE 1 APPL TOPICAL (11:03)
--- NOTE | 2024-01-08 11:26 | PC.NURSE ---
Late entry. At approximately 18:00 on 01/07/24 Zeinab called 911 and reported that she needed help and then that she had a gun and would use it against the other people on the floor. Staff were unable to prevent her from making the call despite being close by while it was happening. After she said what she wanted to say to the dispatcher she agreed to hand the phone over to her nurse. I explained to the dispatcher that there is no gun and that we are safe on a psychiatric unit. However, because of the severity of the threat police were dispatched to the floor. Another RN spoke to them to reassure them that there is no gun on the unit and that everyone is safe.
[2024-01-08] MEDS: Paliperidone Palmitate 156 MG/ML SYRINGE IM (12:16)
[2024-01-08] MEDS: Acetaminophen 325 MG TABLET 650 MG PO (14:12)
[2024-01-08 20:00] VITALS: BP 99/53; PULSE 85; TEMP 36.5; O2SAT 97
[2024-01-08 21:12] LABS: Glucose, Whole Blood 158 mg/dL (60-115)
[2024-01-08] MEDS: Docusate Sodium 100 MG CAPSULE PO (21:18)
[2024-01-08] MEDS: traZODone HCL 50 MG TABLET PO (21:18)
[2024-01-08] MEDS: lamoTRIgine 25 MG TABLET PO (21:18)
[2024-01-09] MEDS: Mineral Oil/Petrolatum,White 106 GM Tube 1 APPL TOPICAL ×2 (00:38→22:41)
[2024-01-09] MEDS: traZODone HCL 50 MG TABLET PO (01:52)
[2024-01-09] MEDS: LORazepam 1 MG TABLET PO (01:52)
[2024-01-09 08:00] VITALS: BP 132/76; PULSE 92; RESP 18; TEMP 36.7; O2SAT 99
[2024-01-09 09:31] LABS: Glucose, Whole Blood 89 mg/dL (60-115)
--- NOTE | 2024-01-09 10:17 | HO.PSYCHPN ---
Subjective Subjective Date of Service: 01/09/24 Reason For Visit: manic aggressive Subjective Notes: Conditional Voluntary Healthcare Proxy: Yes Guardianship: No Medical Problems Affecting Mental Status: No Interim History: Pt refused Sustenna on 01/06, did accept it on 01/07. Declined lab work, did agree to EKG. Team report R Foot edema, however pt has not been consistent with compression socks this past week. Call from father/HCP with concern that pt called him Tuesday night to report she was being electrocuted by the phones and will not live through the night. This continued on 01/06. Reviewed care plan- refusal of Sustenna 01/06, agreed to this on 01/07 and Clozapine to begin 01/08, Depakote to remain at 1250 bid and prn Olanzapine. Discussed with father pt's refusal of care could mean no Clozapine dispensed in the future and our work with her to provide education regarding testing and rationale. He will encourage compliance. Met with pt, review of plan which she expressed agreement with and happiness as this will get me going home. Medication Compliance: Intermittent Side effects from medications: No Attending Groups: No Review of Systems Acute medical concerns: No Medical Review of Systems: unchanged Review of Systems Review of Systems Yes all other systems are reviewed and are negative Mental Status Exam Mental Status Exam Patient Appearance: Appropriate Patient Orientation: Person, Place and Situation Level of Consciousness: Alert Patient Behavior: Talkative, Cooperative, Fearful (worries about her family and her health), Fatigued, Confused and Good Eye Contact Mood Description: Hostile and Labile Affect Description: Labile Patient Cognition Impaired: Yes Ability to Follow Directions: Good Speech Pattern: Spontaneous Speech Memory Description: Episodic Impaired Hallucinations: None Delusions: Paranoid Ideation and Present Perceptual Disturbances: Depersonalization and Derealization Thought Process: Illogical, Distracted, Rumination and Confusion Thought Content: positive for Flight of Ideas, positive for Circumstantial, positive for Perseveration, positive for Tangential and positive for Suicidal Ideation (denies) Depressive Symptoms: Increased Anxiety, Increased Irritability, Unhappiness, Low Self Esteem and Difficulty Concentrating Abnormal Motor Activity Signs and Symptoms: Agitation Judgement: Poor Diagnostics Vital Signs (24Hr): Vital Signs - 24 hr 01/08/24 20:00 Temperature 97.7 F Pulse Rate 85 Blood Pressure 99/53 L Pulse Oximetry 97 Oxygen Delivery Method Room Air BMI result Body Mass Index 60.1 Labs 12/30/23 19:08 12/29/23 09:51 Labs: Laboratory Results - last 48 hr 01/07/24 01/08/24 01/08/24 21:30 08:52 21:07 POC Glucose 164 H 100 158 H 01/09/24 09:27 POC Glucose 89 Imaging Radiology Impressions: ITS Impressions Ankle X-Ray 01/03/24 19:05 IMPRESSION: 1. No radiographic evidence of bone destruction to suggest osteomyelitis. 2. Soft tissue swelling around the ankle. 3. Large posterior calcaneal spur. Ankle X-Ray 01/07/24 15:35 IMPRESSION: Marked soft tissue swelling without evidence of an acute osseous injury. Venous Duplex 01/08/24 10:03 IMPRESSION: No DVT demonstrated in the right lower extremity. This study was presented today 01/09/2024 for interpretation. Prompt priority results supplied at this time to the referring provider as requested by the provider. Medications Medications Current Medications Acetaminophen (Acetaminophen 325 Mg Tablet) 650 mg PO Q6H PRN PRN Reason: Headache/Pain Mild Scale (1-3) Last Admin: 01/08/24 14:12 Dose: 650 mg Al Hydroxide/Mg Hydroxide (Magnesium Hydrox/Alum Hydrox 30 Ml Oral.Susp) 30 ml PO Q6H PRN PRN Reason: Heartburn/Nausea Last Admin: 11/29/23 22:00 Dose: 30 ml Apixaban (Apixaban 5 Mg Tablet) 5 mg PO BID [facility] Last Admin: 01/08/24 21:18 Dose: 5 mg Atenolol (Atenolol 25 Mg Tablet) 25 mg PO DAILY [facility]; Protocol Last Admin: 01/08/24 09:11 Dose: 25 mg Benzocaine (Throat Lozenge, Medicated Lozenge) 1 lozenge MUCOUS MEM Q2H PRN PRN Reason: Sore Throat Benzocaine (Throat Lozenge, Medicated Lozenge) 1 lozenge MUCOUS MEM Q2H PRN PRN Reason: Sore Throat Clozapine (Clozapine 25 Mg Tablet) 25 mg PO BEDTIME [facility] Divalproex Sodium (Divalproex Sodium Sprinkles 125 Mg ) 1,250 mg PO BID [facility] Last Admin: 01/08/24 21:14 Dose: 1,250 mg Docusate Sodium (Docusate Sodium 100 Mg Capsule) 100 mg PO BEDTIME [facility] Last Admin: 01/08/24 21:18 Dose: 100 mg Furosemide (Furosemide 40 Mg Tablet) 40 mg PO DAILY [facility]; Protocol Last Admin: 01/08/24 09:11 Dose: 40 mg Hydrocortisone (Hydrocortisone 1 % Cream 28.35 Gm Tube) 1 appl TOPICAL BID [facility]; Protocol Last Admin: 01/09/24 00:48 Dose: Not Given Hydroxyzine HCl (Hydroxyzine Hcl 25 Mg Tablet) 25 mg PO Q6H PRN PRN Reason: Anxiety Last Admin: 01/07/24 21:32 Dose: 25 mg Lactic Acid (Ammonium Lactate 12 % Lotion 226 Gm Bottle) 1 appl TOPICAL BID PRN; Protocol PRN Reason: Rash Last Admin: 12/26/23 09:45 Dose: 1 appl Lidocaine (Lidocaine 4 % Patch Adh..Patch) 1 patch TRANSDERMA DAILY [facility]; Protocol Last Admin: 01/08/24 09:11 Dose: Not Given Lorazepam (Lorazepam 1 Mg Tablet) 1 mg PO BEDTIME PRN PRN Reason: insomnia,anxiety,agitation Last Admin: 01/09/24 01:52 Dose: 1 mg Lorazepam (Lorazepam 1 Mg Tablet) 1 mg PO Q6H PRN PRN Reason: severe anxiety Magnesium Hydroxide (Milk Of Magnesia 30 Ml Oral.Susp) 30 ml PO DAILY PRN PRN Reason: Constipation Last Admin: 12/18/23 10:35 Dose: 30 ml Metformin HCl (Metformin Hcl Er 500 Mg Tab.Er.24h) 500 mg PO DAILY [facility] Last Admin: 01/08/24 09:11 Dose: 500 mg Metronidazole (Metronidazole 0.75 % Gel 45 Gm Tube) 1 appl TOPICAL DAILY [facility] Last Admin: 01/08/24 11:03 Dose: 1 appl Multi-Ingred Cream/Lotion/Oil/Oint (Mineral Oil/Petrolatum,White 106 Gm Tube) 1 appl TOPICAL BID [facility] Last Admin: 01/09/24 00:38 Dose: 1 appl Multi-Ingred Medicated Throat [place] (Throat [place], Medicated 177 Ml Bottle) 1 spray MUCOUS MEM Q2H PRN PRN Reason: Sore Throat Multivitamins/Vitamin C (Multivitamin Tablet) 1 tab PO DAILY [facility] Last Admin: 01/08/24 09:11 Dose: 1 tab Pt Own (Culturelle (Probiotics 1 Cap)) 1 cap PO DAILY [facility] Last Admin: 01/08/24 09:11 Dose: 1 cap Nystatin (Nystatin Powder 15 Gm Bottle) 1 appl TOPICAL BID PRN; Protocol PRN Reason: Rash Last Admin: 12/25/23 11:07 Dose: 1 appl Olanzapine (Olanzapine 5 Mg Tablet) 5 mg PO TID PRN PRN Reason: agitation Last Admin: 01/07/24 21:32 Dose: 5 mg Trazodone HCl (Trazodone Hcl 50 Mg Tablet) 50 mg PO BEDTIME MRX1 PRN PRN Reason: Insomnia Last Admin: 01/09/24 01:52 Dose: 50 mg Allergies Allergies Allergy/AdvReac Type Severity Reaction Status Date / Time kiwi [KIWI] Allergy Mild HIVES Verified 11/21/23 05:49 mold [MOLD EXTRACTS*] Allergy Mild HIVES Verified 11/21/23 05:49 Assessment & Plan Assessment & Plan (1) Schizoaffective disorder, bipolar type: Status: Acute Code(s): F25.0 - Schizoaffective disorder, bipolar type Assessment and Plan: 12/01/23: Continue current tx and plan 12/02/23: Continue current plan and tx Change Chlorpromazine daytime doses to prn. 12/03/23 - seems more labile with mother present - reassuring eval by hospitalist today- they are following closely with us but encouraging and supporting patient with compliance with stockings and leg elevation seem paramount 12/04/23- limited mobility did wear kenzie stockings- but won't wear slippers/shoes- difficulty raising her feet up - ongoing hypersexual content of thought/somatic preoccupation of PCOS- wanting to sign 3d 12/05/23 Patient mostly in her room limited mobility somatic preoccupations patient did sign a 3 day unrealistic expectation regarding outpatient setting 12/08/23 Change Chlorpromazine 100 mg HS to prn Decrease Valproate from 3000 mg daily to 2000 mg daily Sustenna 234 mg IM given today by team. 12/09/23 Continue to monitor for daytime sedation. 12/11/23 Continue treatment 12/12/23 Sx of bacterial vaginosis-antibiotic initiated. 12/14/23: Labs ordered for the a.m. 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 Patient labile episodes of being expansive overwhelmed anxiety times somatic paranoid delusional material did receive Invega injection 1 week ago should be a therapeutic dose unfortunately has. 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 Metronidazole gel QD for BV Cris Carballo's consult much appreciated. 01/01 O2 2L at HS Continue current regime Respiratory therapy consult much appreciated. 12/23 disorganized in speech and behavior; making sexualized comments to staff 12/24 little more calm today; still disorganized; continue current treatment plan 12/26/23: Continue current plan. Urology consult much appreciated. 12/28/23: Clozaril consideration. 12/29/23: Father is in agreement to trial Clozapine. Application submitted to [facility] 12/30/23: Preparing for Clozapine. Begin Depakote decrease by 500 mg daily. Father/HCP reviewing Clozapine [facility] If he is in agreement, will stop Chlorpromazine, obtain EKG and move forward with Clozapine initiation. 12/30: continue current management and treatment plan. 12/31: continue current management and treatment plan. 01/06/24: Continue plan. 01/06: strongly encouraged Invega long-acting injectable. Patient reports he might take this tomorrow. Does endorse right foot swelling. Aware bilateral lower limb swelling has been a chronic issue. There is bilateral redness and some tenderness. No discharge or Increase temperature. That being said right lower limb and foot do appear larger than the left side, with some tenderness. Patient was unsure if she rolled her ankle at 1 point while pacing a lot. Will order ankle x-ray and also non urgent lower limb venous Doppler. After same will consider hospitalist consult. 01/07: accepted invega sustenna today. Doppler and xray results pending 01/08: Doppler/XRay results are negative. Continue current plan of care and regime. (2) Venous stasis: Status: Acute Code(s): I87.8 - Other specified disorders of veins Assessment and Plan: Hosp note 12/31/23: Pt seen at bedside at RN request for patient reassurance regarding BLE edema. Pt has had multiple evaluation for chronic ble edema with chronic venous stasis dermatitis. She has been complaint with compression stockings and improved hygeine overall. Today, appearance of BLE is actually markedly improved. There is still faint erythema of the distal aspect of the BLE and the posterior RLE but overall much improved. No significant warmth. Superfical lesion dorsum R foot well healing. Noevidence of infection. Continue with conservative measures as previously discussed (3) Chronic cellulitis: Status: Acute Code(s): L03.90 - Cellulitis, unspecified Plan 12/01/23: Continue current tx and plan 12/02/23: Continue current plan and tx Change Chlorpromazine daytime doses to prn. 12/03/23 - seems more labile with mother present - reassuring eval by hospitalist today- they are following closely with us but encouraging and supporting patient with compliance with stockings and leg elevation seem paramount 12/04/23- limited mobility did wear kenzie stockings- but won't wear slippers/shoes- difficulty raising her feet up - ongoing hypersexual content of thought/somatic preoccupation of PCOS- wanting to sign 3d 12/05/23 Patient mostly in her room limited mobility somatic preoccupations patient did sign a 3 day unrealistic expectation regarding outpatient setting 12/08/23 Change Chlorpromazine 100 mg HS to prn Decrease Valproate from 3000 mg daily to 2000 mg daily Sustenna 234 mg IM given today by team. 12/09/23 Continue to monitor for daytime sedation. 12/11/23 Continue treatment 12/12/23 Sx of bacterial vaginosis-antibiotic initiated. 12/14/23: Labs ordered for the a.m. 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 Patient labile episodes of being expansive overwhelmed anxiety times somatic paranoid delusional material did receive Invega injection 1 week ago should be a therapeutic dose unfortunately has. 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 Metronidazole gel QD for BV Cris Carballo's consult much appreciated. 01/01 O2 2L at HS Continue current regime Respiratory therapy consult much appreciated. 12/23 disorganized in speech and behavior; making sexualized comments to staff 12/24 little more calm today; still disorganized; continue current treatment plan 12/26/23: Continue current plan. Urology consult much appreciated. 12/28/23: Clozaril consideration. 12/29/23: Father is in agreement to trial Clozapine. Application submitted to [facility] 12/30/23: Preparing for Clozapine. Begin Depakote decrease by 500 mg daily. Father/HCP reviewing Clozapine [facility] If he is in agreement, will stop Chlorpromazine, obtain EKG and move forward with Clozapine initiation. 12/30: continue current management and treatment plan. 12/31: continue current management and treatment plan. 01/06/24: Continue plan. Patient educated on: medication risk/benefits and therapeutic strategies Informed Consent: further education needed Reason for continued inpatient stay Substantial Risk for: rapid decompensation Time Spent With Patient Time: Total time managing care of this patient today ____ minutes.
[2024-01-09 10:51] VITALS: BP 132/76; PULSE 92
[2024-01-09] MEDS: atenoloL 25 MG TABLET PO (10:51)
[2024-01-09 10:52] VITALS: BP 132/76
[2024-01-09] MEDS: Furosemide 40 MG TABLET PO (10:52)
[2024-01-09] MEDS: Multivitamin TABLET 1 TAB PO (10:52)
[2024-01-09] MEDS: metFORMIN HCl ER 500 MG TAB.ER.24H PO (10:52)
[2024-01-09] MEDS: Apixaban 5 MG TABLET PO ×2 (10:52→21:10)
[2024-01-09] MEDS: Divalproex Sodium Sprinkles 125 MG CAP.DR.SPR 1250 MG PO ×2 (10:53→21:10)
[2024-01-09] MEDS: metroNIDAZOLE 0.75 % Gel 45 GM TUBE 1 APPL TOPICAL (12:50)
[2024-01-09 20:00] VITALS: BP 130/88; PULSE 93; RESP 16; TEMP 36.4; O2SAT 94
[2024-01-09] MEDS: Docusate Sodium 100 MG CAPSULE PO (21:10)
[2024-01-09] MEDS: cloZAPine 25 MG TABLET PO (21:10)
[2024-01-10 01:33] LABS: Glucose, Whole Blood 118 mg/dL (60-115)
[2024-01-10 08:10] VITALS: BP 140/93; PULSE 98; RESP 16; TEMP 36.6; O2SAT 99
[2024-01-10 08:50] LABS: Glucose, Whole Blood 127 mg/dL (60-115)
[2024-01-10 08:54] VITALS: BP 134/85
[2024-01-10] MEDS: atenoloL 25 MG TABLET PO (08:54)
[2024-01-10] MEDS: Apixaban 5 MG TABLET PO ×2 (08:54→19:59)
[2024-01-10] MEDS: Divalproex Sodium Sprinkles 125 MG CAP.DR.SPR 1250 MG PO ×2 (08:54→20:00)
[2024-01-10 08:55] VITALS: BP 134/85
[2024-01-10] MEDS: metFORMIN HCl ER 500 MG TAB.ER.24H PO (08:55)
[2024-01-10] MEDS: Furosemide 40 MG TABLET PO (08:55)
[2024-01-10] MEDS: Multivitamin TABLET 1 TAB PO (08:55)
--- NOTE | 2024-01-10 10:26 | HO.PSYCHPN ---
Subjective Subjective Date of Service: 01/10/24 Reason For Visit: manic aggressive Subjective Notes: Conditional Voluntary Healthcare Proxy: Yes Guardianship: No Medical Problems Affecting Mental Status: No Interim History: Labile, angry, verbally caustic and inappropriate, irritable, some outbursts today. Somatic focus- cancer, having abortions, taking medication, demanding to go to [facility] to deliver her baby, sexualized content targeting of staff. Team reports pt threw her breakfast tray with comments about food tasting bad. Contacted by pharmacy early this a.m. Pt refusing labs, so Clozapine cannot continue. Pt talked with her father this afternoon and agreed to labs and did have them done later in the day. As a result Clozapine will continue this evening. Medication Compliance: Yes Side effects from medications: No Attending Groups: No Review of Systems Acute medical concerns: No Medical Review of Systems: unchanged Review of Systems Review of Systems Several somatic reports. Wearing compression stockings Mental Status Exam Mental Status Exam Patient Appearance: Appropriate Patient Orientation: Person, Place and Situation Level of Consciousness: Alert Patient Behavior: Talkative, Cooperative, Fearful (worries about her family and her health), Fatigued, Confused and Good Eye Contact Mood Description: Hostile and Labile Affect Description: Labile Patient Cognition Impaired: Yes Ability to Follow Directions: Good Speech Pattern: Spontaneous Speech Memory Description: Episodic Impaired Hallucinations: None Delusions: Paranoid Ideation and Present Perceptual Disturbances: Depersonalization and Derealization Thought Process: Illogical, Distracted, Rumination and Confusion Thought Content: positive for Flight of Ideas, positive for Circumstantial, positive for Perseveration, positive for Tangential and positive for Suicidal Ideation (denies) Depressive Symptoms: Increased Anxiety, Increased Irritability, Unhappiness, Low Self Esteem and Difficulty Concentrating Abnormal Motor Activity Signs and Symptoms: Agitation Judgement: Poor Diagnostics Vital Signs (24Hr): Vital Signs - 24 hr 01/09/24 10:51 01/09/24 10:52 01/09/24 20:00 Temperature 97.6 F Pulse Rate 92 93 Respiratory Rate 16 Blood Pressure 132/76 132/76 130/88 Pulse Oximetry 94 Oxygen Delivery Method Room Air 01/10/24 08:10 01/10/24 08:54 01/10/24 08:55 Temperature 97.9 F Pulse Rate 98 Respiratory Rate 16 Blood Pressure 140/93 H 134/85 134/85 Pulse Oximetry 99 Oxygen Delivery Method Room Air BMI result Body Mass Index 60.1 Labs 01/10/24 15:28 12/29/23 09:51 Labs: Laboratory Results - last 48 hr 01/08/24 01/09/24 01/10/24 21:07 09:27 01:28 POC Glucose 158 H 89 118 H 01/10/24 08:46 POC Glucose 127 H Imaging Radiology Impressions: ITS Impressions Ankle X-Ray 01/03/24 19:05 IMPRESSION: 1. No radiographic evidence of bone destruction to suggest osteomyelitis. 2. Soft tissue swelling around the ankle. 3. Large posterior calcaneal spur. Ankle X-Ray 01/07/24 15:35 IMPRESSION: Marked soft tissue swelling without evidence of an acute osseous injury. Venous Duplex 01/08/24 10:03 IMPRESSION: No DVT demonstrated in the right lower extremity. This study was presented today 01/09/2024 for interpretation. Prompt priority results supplied at this time to the referring provider as requested by the provider. Medications Medications Current Medications Acetaminophen (Acetaminophen 325 Mg Tablet) 650 mg PO Q6H PRN PRN Reason: Headache/Pain Mild Scale (1-3) Last Admin: 01/08/24 14:12 Dose: 650 mg Al Hydroxide/Mg Hydroxide (Magnesium Hydrox/Alum Hydrox 30 Ml Oral.Susp) 30 ml PO Q6H PRN PRN Reason: Heartburn/Nausea Last Admin: 11/29/23 22:00 Dose: 30 ml Apixaban (Apixaban 5 Mg Tablet) 5 mg PO BID [facility] Last Admin: 01/10/24 08:54 Dose: 5 mg Atenolol (Atenolol 25 Mg Tablet) 25 mg PO DAILY [facility]; Protocol Last Admin: 01/10/24 08:54 Dose: 25 mg Benzocaine (Throat Lozenge, Medicated Lozenge) 1 lozenge MUCOUS MEM Q2H PRN PRN Reason: Sore Throat Benzocaine (Throat Lozenge, Medicated Lozenge) 1 lozenge MUCOUS MEM Q2H PRN PRN Reason: Sore Throat Chlorpromazine HCl (Chlorpromazine Hcl 25 Mg Tablet) 75 mg PO BID [facility] Divalproex Sodium (Divalproex Sodium Sprinkles 125 Mg ) 1,250 mg PO BID [facility] Last Admin: 01/10/24 08:54 Dose: 1,250 mg Docusate Sodium (Docusate Sodium 100 Mg Capsule) 100 mg PO BEDTIME [facility] Last Admin: 01/09/24 21:10 Dose: 100 mg Furosemide (Furosemide 40 Mg Tablet) 40 mg PO DAILY [facility]; Protocol Last Admin: 01/10/24 08:55 Dose: 40 mg Hydrocortisone (Hydrocortisone 1 % Cream 28.35 Gm Tube) 1 appl TOPICAL BID [facility]; Protocol Last Admin: 01/10/24 10:04 Dose: Not Given Hydroxyzine HCl (Hydroxyzine Hcl 25 Mg Tablet) 25 mg PO Q6H PRN PRN Reason: Anxiety Last Admin: 01/07/24 21:32 Dose: 25 mg Lactic Acid (Ammonium Lactate 12 % Lotion 226 Gm Bottle) 1 appl TOPICAL BID PRN; Protocol PRN Reason: Rash Last Admin: 12/26/23 09:45 Dose: 1 appl Lidocaine (Lidocaine 4 % Patch Adh..Patch) 1 patch TRANSDERMA DAILY [facility]; Protocol Last Admin: 01/10/24 10:04 Dose: Not Given Lorazepam (Lorazepam 1 Mg Tablet) 1 mg PO BEDTIME PRN PRN Reason: insomnia,anxiety,agitation Last Admin: 01/09/24 01:52 Dose: 1 mg Lorazepam (Lorazepam 1 Mg Tablet) 1 mg PO Q6H PRN PRN Reason: severe anxiety Magnesium Hydroxide (Milk Of Magnesia 30 Ml Oral.Susp) 30 ml PO DAILY PRN PRN Reason: Constipation Last Admin: 12/18/23 10:35 Dose: 30 ml Metformin HCl (Metformin Hcl Er 500 Mg Tab.Er.24h) 500 mg PO DAILY [facility] Last Admin: 01/10/24 08:55 Dose: 500 mg Metronidazole (Metronidazole 0.75 % Gel 45 Gm Tube) 1 appl TOPICAL DAILY [facility] Last Admin: 01/09/24 12:50 Dose: 1 appl Multi-Ingred Cream/Lotion/Oil/Oint (Mineral Oil/Petrolatum,White 106 Gm Tube) 1 appl TOPICAL BID [facility] Last Admin: 01/09/24 22:41 Dose: 1 appl Multi-Ingred Medicated Throat [place] (Throat [place], Medicated 177 Ml Bottle) 1 spray MUCOUS MEM Q2H PRN PRN Reason: Sore Throat Multivitamins/Vitamin C (Multivitamin Tablet) 1 tab PO DAILY [facility] Last Admin: 01/10/24 08:55 Dose: 1 tab Pt Own (Culturelle (Probiotics 1 Cap)) 1 cap PO DAILY [facility] Last Admin: 01/09/24 10:54 Dose: 1 cap Nystatin (Nystatin Powder 15 Gm Bottle) 1 appl TOPICAL BID PRN; Protocol PRN Reason: Rash Last Admin: 12/25/23 11:07 Dose: 1 appl Olanzapine (Olanzapine 5 Mg Tablet) 5 mg PO TID PRN PRN Reason: agitation Last Admin: 01/07/24 21:32 Dose: 5 mg Trazodone HCl (Trazodone Hcl 50 Mg Tablet) 50 mg PO BEDTIME MRX1 PRN PRN Reason: Insomnia Last Admin: 01/09/24 01:52 Dose: 50 mg Allergies Allergies Allergy/AdvReac Type Severity Reaction Status Date / Time kiwi [KIWI] Allergy Mild HIVES Verified 11/21/23 05:49 mold [MOLD EXTRACTS*] Allergy Mild HIVES Verified 11/21/23 05:49 Assessment & Plan Assessment & Plan (1) Schizoaffective disorder, bipolar type: Status: Acute Code(s): F25.0 - Schizoaffective disorder, bipolar type Assessment and Plan: 12/01/23: Continue current tx and plan 12/02/23: Continue current plan and tx Change Chlorpromazine daytime doses to prn. 12/03/23 - seems more labile with mother present - reassuring eval by hospitalist today- they are following closely with us but encouraging and supporting patient with compliance with stockings and leg elevation seem paramount 12/04/23- limited mobility did wear kenzie stockings- but won't wear slippers/shoes- difficulty raising her feet up - ongoing hypersexual content of thought/somatic preoccupation of PCOS- wanting to sign 3d 12/05/23 Patient mostly in her room limited mobility somatic preoccupations patient did sign a 3 day unrealistic expectation regarding outpatient setting 12/08/23 Change Chlorpromazine 100 mg HS to prn Decrease Valproate from 3000 mg daily to 2000 mg daily Sustenna 234 mg IM given today by team. 12/09/23 Continue to monitor for daytime sedation. 12/11/23 Continue treatment 12/12/23 Sx of bacterial vaginosis-antibiotic initiated. 12/14/23: Labs ordered for the a.m. 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 Patient labile episodes of being expansive overwhelmed anxiety times somatic paranoid delusional material did receive Invega injection 1 week ago should be a therapeutic dose unfortunately has. 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 Metronidazole gel QD for BV Cris Carballo's consult much appreciated. 01/01 O2 2L at HS Continue current regime Respiratory therapy consult much appreciated. 12/23 disorganized in speech and behavior; making sexualized comments to staff 12/24 little more calm today; still disorganized; continue current treatment plan 12/26/23: Continue current plan. Urology consult much appreciated. 12/28/23: Clozaril consideration. 12/29/23: Father is in agreement to trial Clozapine. Application submitted to [facility] 12/30/23: Preparing for Clozapine. Begin Depakote decrease by 500 mg daily. Father/HCP reviewing Cl[facility]apine [facility] If he is in agreement, will stop Chlorpromazine, obtain EKG and move forward with Clozapine initiation. 12/30: continue current management and treatment plan. 12/31: continue current management and treatment plan. 01/06/24: Continue plan. 01/06: strongly encouraged Invega long-acting injectable. Patient reports he might take this tomorrow. Does endorse right foot swelling. Aware bilateral lower limb swelling has been a chronic issue. There is bilateral redness and some tenderness. No discharge or Increase temperature. That being said right lower limb and foot do appear larger than the left side, with some tenderness. Patient was unsure if she rolled her ankle at 1 point while pacing a lot. Will order ankle x-ray and also non urgent lower limb venous Doppler. After same will consider hospitalist consult. 01/07: accepted invega sustenna today. Doppler and xray results pending 01/08: Doppler/XRay results are negative. Continue current plan of care and regime. 01/09: WBC 7.9, ANC 4.3 Continue Clozapine trial. (2) Venous stasis: Status: Acute Code(s): I87.8 - Other specified disorders of veins Assessment and Plan: Hosp note 12/31/23: Pt seen at bedside at RN request for patient reassurance regarding BLE edema. Pt has had multiple evaluation for chronic ble edema with chronic venous stasis dermatitis. She has been complaint with compression stockings and improved hygeine overall. Today, appearance of BLE is actually markedly improved. There is still faint erythema of the distal aspect of the BLE and the posterior RLE but overall much improved. No significant warmth. Superfical lesion dorsum R foot well healing. Noevidence of infection. Continue with conservative measures as previously discussed (3) Chronic cellulitis: Status: Acute Code(s): L03.90 - Cellulitis, unspecified Plan 12/01/23: Continue current tx and plan 12/02/23: Continue current plan and tx Change Chlorpromazine daytime doses to prn. 12/03/23 - seems more labile with mother present - reassuring eval by hospitalist today- they are following closely with us but encouraging and supporting patient with compliance with stockings and leg elevation seem paramount 12/04/23- limited mobility did wear kenzie stockings- but won't wear slippers/shoes- difficulty raising her feet up - ongoing hypersexual content of thought/somatic preoccupation of PCOS- wanting to sign 3d 12/05/23 Patient mostly in her room limited mobility somatic preoccupations patient did sign a 3 day unrealistic expectation regarding outpatient setting 12/08/23 Change Chlorpromazine 100 mg HS to prn Decrease Valproate from 3000 mg daily to 2000 mg daily Sustenna 234 mg IM given today by team. 12/09/23 Continue to monitor for daytime sedation. 12/11/23 Continue treatment 12/12/23 Sx of bacterial vaginosis-antibiotic initiated. 12/14/23: Labs ordered for the a.m. 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 Patient labile episodes of being expansive overwhelmed anxiety times somatic paranoid delusional material did receive Invega injection 1 week ago should be a therapeutic dose unfortunately has. 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 Metronidazole gel QD for BV Cris Carballo's consult much appreciated. 01/01 O2 2L at HS Continue current regime Respiratory therapy consult much appreciated. 12/23 disorganized in speech and behavior; making sexualized comments to staff 12/24 little more calm today; still disorganized; continue current treatment plan 12/26/23: Continue current plan. Urology consult much appreciated. 12/28/23: Clozaril consideration. 12/29/23: Father is in agreement to trial Clozapine. Application submitted to [facility] 12/30/23: Preparing for Clozapine. Begin Depakote decrease by 500 mg daily. Father/HCP reviewing Clozapine [facility] If he is in agreement, will stop Chlorpromazine, obtain EKG and move forward with Clozapine initiation. 12/30: continue current management and treatment plan. 12/31: continue current management and treatment plan. 01/06/24: Continue plan. Reason for continued inpatient stay Substantial Risk for: rapid decompensation and med/psych decompensation Time Spent With Patient Time: Total time managing care of this patient today ____ minutes.
[2024-01-10 16:01] LABS: Neut%MD 54.1 %; Neutrophils Absolute Auto 4.3 x10*3/uL (2.0-8.3); WBCANC 7.9 X10*3/uL; White Blood Count 7.9 X10*3/uL (4.8-10.8)
[2024-01-10] MEDS: metroNIDAZOLE 0.75 % Gel 45 GM TUBE 1 APPL TOPICAL (17:57)
[2024-01-10] MEDS: Mineral Oil/Petrolatum,White 106 GM Tube 1 APPL TOPICAL (17:57)
[2024-01-10] MEDS: traZODone HCL 50 MG TABLET PO (19:59)
[2024-01-10 20:00] VITALS: BP 148/83; PULSE 98; RESP 18; TEMP 36.4; O2SAT 95
[2024-01-10] MEDS: Docusate Sodium 100 MG CAPSULE PO (20:00)
[2024-01-10] MEDS: cloZAPine 25 MG TABLET PO (20:00)
[2024-01-10 20:46] LABS: Glucose, Whole Blood 152 mg/dL (60-115)
[2024-01-11 09:50] VITALS: BP 143/90; PULSE 91; RESP 18; TEMP 36.2; O2SAT 97
[2024-01-11] MEDS: Mineral Oil/Petrolatum,White 106 GM Tube 1 APPL TOPICAL ×2 (09:51→22:06)
[2024-01-11] MEDS: metroNIDAZOLE 0.75 % Gel 45 GM TUBE 1 APPL TOPICAL (09:51)
[2024-01-11] MEDS: Apixaban 5 MG TABLET PO ×2 (09:52→22:06)
[2024-01-11] MEDS: Multivitamin TABLET 1 TAB PO (09:52)
[2024-01-11] MEDS: metFORMIN HCl ER 500 MG TAB.ER.24H PO (09:52)
[2024-01-11] MEDS: Divalproex Sodium Sprinkles 125 MG CAP.DR.SPR 1250 MG PO ×2 (09:52→22:05)
[2024-01-11 09:59] VITALS: BP 143/90; PULSE 91
[2024-01-11] MEDS: atenoloL 25 MG TABLET PO (09:59)
[2024-01-11] MEDS: Furosemide 40 MG TABLET PO (09:59)
[2024-01-11 10:01] LABS: Glucose, Whole Blood 95 mg/dL (60-115)
--- NOTE | 2024-01-11 13:01 | HO.PSYCHPN ---
Subjective Subjective Date of Service: 01/11/24 Reason For Visit: manic aggressive Subjective Notes: Conditional Voluntary Healthcare Proxy: Yes Guardianship: No Medical Problems Affecting Mental Status: Yes Interim History: Pt with less lability of mood today. Visited by mother, less tangential content overall. No behavioral outbursts. Reports feeling happiness today. Medication Compliance: Yes Side effects from medications: No Attending Groups: No Review of Systems Acute medical concerns: No Medical Review of Systems: unchanged Review of Systems Review of Systems Yes all other systems are reviewed and are negative Mental Status Exam Mental Status Exam Patient Appearance: Appropriate Patient Orientation: Person, Place and Situation Level of Consciousness: Alert Patient Behavior: Talkative and Good Eye Contact Mood Description: Cheerful Affect Description: Cheerful Patient Cognition Impaired: Yes Ability to Follow Directions: Good Speech Pattern: Spontaneous Speech Memory Description: Episodic Impaired Hallucinations: None Delusions: Not Present Thought Process: Illogical and Distracted Thought Content: positive for [place] and positive for Circumstantial Judgement: Fair Diagnostics Vital Signs (24Hr): Vital Signs - 24 hr 01/10/24 20:00 01/11/24 09:50 01/11/24 09:59 Temperature 97.5 F 97.1 F Pulse Rate 98 91 Respiratory Rate 18 18 Blood Pressure 148/83 H 143/90 H 143/90 H Pulse Oximetry 95 97 Oxygen Delivery Method Room Air Room Air 01/11/24 09:59 Temperature Pulse Rate 91 Respiratory Rate Blood Pressure 143/90 H Pulse Oximetry Oxygen Delivery Method BMI result Body Mass Index 60.1 Labs 01/10/24 15:28 12/29/23 09:51 Labs: Laboratory Results - last 48 hr 01/10/24 01/10/24 01/10/24 01:28 08:46 15:28 WBC 7.9 Absolute Neuts (auto) 4.3 POC Glucose 118 H 127 H 01/10/24 01/11/24 19:53 09:53 WBC Absolute Neuts (auto) POC Glucose 152 H 95 Imaging Radiology Impressions: ITS Impressions Ankle X-Ray 01/03/24 19:05 IMPRESSION: 1. No radiographic evidence of bone destruction to suggest osteomyelitis. 2. Soft tissue swelling around the ankle. 3. Large posterior calcaneal spur. Ankle X-Ray 01/07/24 15:35 IMPRESSION: Marked soft tissue swelling without evidence of an acute osseous injury. Venous Duplex 01/08/24 10:03 IMPRESSION: No DVT demonstrated in the right lower extremity. This study was presented today 01/09/2024 for interpretation. Prompt priority results supplied at this time to the referring provider as requested by the provider. Medications Medications Current Medications Acetaminophen (Acetaminophen 325 Mg Tablet) 650 mg PO Q6H PRN PRN Reason: Headache/Pain Mild Scale (1-3) Last Admin: 01/08/24 14:12 Dose: 650 mg Al Hydroxide/Mg Hydroxide (Magnesium Hydrox/Alum Hydrox 30 Ml Oral.Susp) 30 ml PO Q6H PRN PRN Reason: Heartburn/Nausea Last Admin: 11/29/23 22:00 Dose: 30 ml Apixaban (Apixaban 5 Mg Tablet) 5 mg PO BID INOCENCIO Last Admin: 01/11/24 09:52 Dose: 5 mg Atenolol (Atenolol 25 Mg Tablet) 25 mg PO DAILY INOCENCIO; Protocol Last Admin: 01/11/24 09:59 Dose: 25 mg Benzocaine (Throat Lozenge, Medicated Lozenge) 1 lozenge MUCOUS MEM Q2H PRN PRN Reason: Sore Throat Benzocaine (Throat Lozenge, Medicated Lozenge) 1 lozenge MUCOUS MEM Q2H PRN PRN Reason: Sore Throat Clozapine (Clozapine 25 Mg Tablet) 25 mg PO BEDTIME INOCENCIO Last Admin: 01/10/24 20:00 Dose: 25 mg Divalproex Sodium (Divalproex Sodium Sprinkles 125 Mg Darvin.) 1,250 mg PO BID INOCENCIO Last Admin: 01/11/24 09:52 Dose: 1,250 mg Docusate Sodium (Docusate Sodium 100 Mg Capsule) 100 mg PO BEDTIME INOCENCIO Last Admin: 01/10/24 20:00 Dose: 100 mg Furosemide (Furosemide 40 Mg Tablet) 40 mg PO DAILY INOCENCIO; Protocol Last Admin: 01/11/24 09:59 Dose: 40 mg Hydrocortisone (Hydrocortisone 1 % Cream 28.35 Gm Tube) 1 appl TOPICAL BID INOCENCIO; Protocol Last Admin: 01/11/24 09:58 Dose: Not Given Hydroxyzine HCl (Hydroxyzine Hcl 25 Mg Tablet) 25 mg PO Q6H PRN PRN Reason: Anxiety Last Admin: 01/07/24 21:32 Dose: 25 mg Lactic Acid (Ammonium Lactate 12 % Lotion 226 Gm Bottle) 1 appl TOPICAL BID PRN; Protocol PRN Reason: Rash Last Admin: 12/26/23 09:45 Dose: 1 appl Lidocaine (Lidocaine 4 % Patch Adh..Patch) 1 patch TRANSDERMA DAILY INOCENCIO; Protocol Last Admin: 01/11/24 09:58 Dose: Not Given Lorazepam (Lorazepam 1 Mg Tablet) 1 mg PO BEDTIME PRN PRN Reason: insomnia,anxiety,agitation Last Admin: 01/09/24 01:52 Dose: 1 mg Lorazepam (Lorazepam 1 Mg Tablet) 1 mg PO Q6H PRN PRN Reason: severe anxiety Magnesium Hydroxide (Milk Of Magnesia 30 Ml Oral.Susp) 30 ml PO DAILY PRN PRN Reason: Constipation Last Admin: 12/18/23 10:35 Dose: 30 ml Metformin HCl (Metformin Hcl Er 500 Mg Tab.Er.24h) 500 mg PO DAILY INOCENCIO Last Admin: 01/11/24 09:52 Dose: 500 mg Metronidazole (Metronidazole 0.75 % Gel 45 Gm Tube) 1 appl TOPICAL DAILY INOCENCIO Last Admin: 01/11/24 09:51 Dose: 1 appl Multi-Ingred Cream/Lotion/Oil/Oint (Mineral Oil/Petrolatum,White 106 Gm Tube) 1 appl TOPICAL BID INOCENCIO Last Admin: 01/11/24 09:51 Dose: 1 appl Multi-Ingred Medicated Throat [place] (Throat [place], Medicated 177 Ml Bottle) 1 spray MUCOUS MEM Q2H PRN PRN Reason: Sore Throat Multivitamins/Vitamin C (Multivitamin Tablet) 1 tab PO DAILY INOCENCIO Last Admin: 01/11/24 09:52 Dose: 1 tab Pt Own (Culturelle (Probiotics 1 Cap)) 1 cap PO DAILY INOCENCIO Last Admin: 01/11/24 09:51 Dose: 1 cap Nystatin (Nystatin Powder 15 Gm Bottle) 1 appl TOPICAL BID PRN; Protocol PRN Reason: Rash Last Admin: 12/25/23 11:07 Dose: 1 appl Olanzapine (Olanzapine 5 Mg Tablet) 5 mg PO TID PRN PRN Reason: agitation Last Admin: 01/07/24 21:32 Dose: 5 mg Trazodone HCl (Trazodone Hcl 50 Mg Tablet) 50 mg PO BEDTIME MRX1 PRN PRN Reason: Insomnia Last Admin: 01/10/24 19:59 Dose: 50 mg Allergies Allergies Allergy/AdvReac Type Severity Reaction Status Date / Time kiwi [KIWI] Allergy Mild HIVES Verified 11/21/23 05:49 mold [MOLD EXTRACTS*] Allergy Mild HIVES Verified 11/21/23 05:49 Assessment & Plan Assessment & Plan (1) Schizoaffective disorder, bipolar type: Status: Acute Code(s): F25.0 - Schizoaffective disorder, bipolar type Assessment and Plan: 12/01/23: Continue current tx and plan 12/02/23: Continue current plan and tx Change Chlorpromazine daytime doses to prn. 12/03/23 - seems more labile with mother present - reassuring eval by hospitalist today- they are following closely with us but encouraging and supporting patient with compliance with stockings and leg elevation seem paramount 12/04/23- limited mobility did wear kenzie stockings- but won't wear slippers/shoes- difficulty raising her feet up - ongoing hypersexual content of thought/somatic preoccupation of PCOS- wanting to sign 3d 12/05/23 Patient mostly in her room limited mobility somatic preoccupations patient did sign a 3 day unrealistic expectation regarding outpatient setting 12/08/23 Change Chlorpromazine 100 mg HS to prn Decrease Valproate from 3000 mg daily to 2000 mg daily Sustenna 234 mg IM given today by team. 12/09/23 Continue to monitor for daytime sedation. 12/11/23 Continue treatment 12/12/23 Sx of bacterial vaginosis-antibiotic initiated. 12/14/23: Labs ordered for the a.m. 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 Patient labile episodes of being expansive overwhelmed anxiety times somatic paranoid delusional material did receive Invega injection 1 week ago should be a therapeutic dose unfortunately has. 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 Metronidazole gel QD for BV Cris Carballo's consult much appreciated. 01/01 O2 2L at HS Continue current regime Respiratory therapy consult much appreciated. 12/23 disorganized in speech and behavior; making sexualized comments to staff 12/24 little more calm today; still disorganized; continue current treatment plan 12/26/23: Continue current plan. Urology consult much appreciated. 12/28/23: Clozaril consideration. 12/29/23: Father is in agreement to trial Clozapine. Application submitted to [facility] 12/30/23: Preparing for Clozapine. Begin Depakote decrease by 500 mg daily. Father/HCP reviewing Cl[facility]apine [facility] If he is in agreement, will stop Chlorpromazine, obtain EKG and move forward with Clozapine initiation. 12/30: continue current management and treatment plan. 12/31: continue current management and treatment plan. 01/06/24: Continue plan. 01/06: strongly encouraged Invega long-acting injectable. Patient reports he might take this tomorrow. Does endorse right foot swelling. Aware bilateral lower limb swelling has been a chronic issue. There is bilateral redness and some tenderness. No discharge or Increase temperature. That being said right lower limb and foot do appear larger than the left side, with some tenderness. Patient was unsure if she rolled her ankle at 1 point while pacing a lot. Will order ankle x-ray and also non urgent lower limb venous Doppler. After same will consider hospitalist consult. 01/07: accepted invega sustenna today. Doppler and xray results pending 01/08: Doppler/XRay results are negative. Continue current plan of care and regime. 01/09: WBC 7.9, ANC 4.3 Continue Clozapine trial. 01/10: Increase Clozaril to 50 mg HS. (2) Venous stasis: Status: Acute Code(s): I87.8 - Other specified disorders of veins Assessment and Plan: Hosp note 12/31/23: Pt seen at bedside at RN request for patient reassurance regarding BLE edema. Pt has had multiple evaluation for chronic ble edema with chronic venous stasis dermatitis. She has been complaint with compression stockings and improved hygeine overall. Today, appearance of BLE is actually markedly improved. There is still faint erythema of the distal aspect of the BLE and the posterior RLE but overall much improved. No significant warmth. Superfical lesion dorsum R foot well healing. Noevidence of infection. Continue with conservative measures as previously discussed (3) Chronic cellulitis: Status: Acute Code(s): L03.90 - Cellulitis, unspecified Plan 12/01/23: Continue current tx and plan 12/02/23: Continue current plan and tx Change Chlorpromazine daytime doses to prn. 12/03/23 - seems more labile with mother present - reassuring eval by hospitalist today- they are following closely with us but encouraging and supporting patient with compliance with stockings and leg elevation seem paramount 12/04/23- limited mobility did wear kenzie stockings- but won't wear slippers/shoes- difficulty raising her feet up - ongoing hypersexual content of thought/somatic preoccupation of PCOS- wanting to sign 3d 12/05/23 Patient mostly in her room limited mobility somatic preoccupations patient did sign a 3 day unrealistic expectation regarding outpatient setting 12/08/23 Change Chlorpromazine 100 mg HS to prn Decrease Valproate from 3000 mg daily to 2000 mg daily Sustenna 234 mg IM given today by team. 12/09/23 Continue to monitor for daytime sedation. 12/11/23 Continue treatment 12/12/23 Sx of bacterial vaginosis-antibiotic initiated. 12/14/23: Labs ordered for the a.m. 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 Patient labile episodes of being expansive overwhelmed anxiety times somatic paranoid delusional material did receive Invega injection 1 week ago should be a therapeutic dose unfortunately has. 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 Metronidazole gel QD for BV Cris Carballo's consult much appreciated. 01/01 O2 2L at HS Continue current regime Respiratory therapy consult much appreciated. 12/23 disorganized in speech and behavior; making sexualized comments to staff 12/24 little more calm today; still disorganized; continue current treatment plan 12/26/23: Continue current plan. Urology consult much appreciated. 12/28/23: Clozaril consideration. 12/29/23: Father is in agreement to trial Clozapine. Application submitted to [facility] 12/30/23: Preparing for Clozapine. Begin Depakote decrease by 500 mg daily. Father/HCP reviewing Clozapine [facility] If he is in agreement, will stop Chlorpromazine, obtain EKG and move forward with Clozapine initiation. 12/30: continue current management and treatment plan. 12/31: continue current management and treatment plan. 01/06/24: Continue plan. Reason for continued inpatient stay Substantial Risk for: rapid decompensation and med/psych decompensation Time Spent With Patient Time: Total time managing care of this patient today ____ minutes.
[2024-01-11 20:00] VITALS: BP 157/91; PULSE 90; RESP 20; TEMP 36.1; O2SAT 96
[2024-01-11 20:15] LABS: Glucose, Whole Blood 159 mg/dL (60-115)
[2024-01-11] MEDS: cloZAPine 25 MG TABLET 50 MG PO (22:05)
[2024-01-11] MEDS: Docusate Sodium 100 MG CAPSULE PO (22:06)
[2024-01-11] MEDS: Hydrocortisone 1 % Cream 28.35 GM TUBE 1 APPL TOPICAL (22:07)
[2024-01-12 07:00] VITALS: BMI 60.0
[2024-01-12 09:07] LABS: Glucose, Whole Blood 127 mg/dL (60-115)
[2024-01-12 09:11] VITALS: BP 122/78; PULSE 87; RESP 18; TEMP 36.6; O2SAT 97
[2024-01-12] MEDS: atenoloL 25 MG TABLET PO (09:11)
[2024-01-12] MEDS: Divalproex Sodium Sprinkles 125 MG CAP.DR.SPR 1250 MG PO ×2 (09:11→20:23)
[2024-01-12] MEDS: metFORMIN HCl ER 500 MG TAB.ER.24H PO (09:11)
[2024-01-12] MEDS: Furosemide 40 MG TABLET PO (09:11)
[2024-01-12] MEDS: Apixaban 5 MG TABLET PO ×2 (09:12→20:26)
[2024-01-12] MEDS: Multivitamin TABLET 1 TAB PO (09:12)
[2024-01-12] MEDS: metroNIDAZOLE 0.75 % Gel 45 GM TUBE 1 APPL TOPICAL (11:29)
[2024-01-12] MEDS: Mineral Oil/Petrolatum,White 106 GM Tube 1 APPL TOPICAL (11:29)
[2024-01-12] MEDS: Hydrocortisone 1 % Cream 28.35 GM TUBE 1 APPL TOPICAL (11:30)
--- NOTE | 2024-01-12 17:39 | P.PNPSI_ITS ---
Subjective Subjective Date of Service: 01/12/24 Reason For Visit: manic aggressive Subjective Notes: Conditional Voluntary Healthcare Proxy: Yes Guardianship: No Medical Problems Affecting Mental Status: No Interim History: Increased difficulty today with some outbursts of agitaiton. Calling 911 this a.m. for a pizza. Demanding of team-anxious about family health status. Calmed as the day progressed, napped this afternoon. Team report approximately 7 hours of sleep. Call from pt's father who reports she is having an off day today. Questions when Clozapine will take effect at what dose and time frame. Reviewd titration 25 mg x 2 nights, 50 mg last night. 30 -6 hour plasma level and 5.5-33 hr half life with 300-450 divided doses and about 6 weeks of trial for efficacy. Discussed titration so as not to oversedate which he agrees with. Medication Compliance: Yes Side effects from medications: No Attending Groups: No Review of Systems Acute medical concerns: No Medical Review of Systems: unchanged Review of Systems Review of Systems Refused compression stockings today Mental Status Exam Mental Status Exam Patient Appearance: Appropriate Patient Orientation: Person, Place and Situation Level of Consciousness: Alert Patient Behavior: Talkative and Good Eye Contact Mood Description: Labile Affect Description: Labile Patient Cognition Impaired: Yes Ability to Follow Directions: Good Speech Pattern: Spontaneous Speech and Loud Memory Description: Remote Impaired Hallucinations: None Delusions: Paranoid Ideation, Grandiose and Present Thought Process: Illogical and Distracted Thought Content: positive for Obsessional Thoughts, positive for Circumstantial, positive for Perseveration and positive for Disorganized Abnormal Motor Activity Signs and Symptoms: Agitation Judgement: Fair Diagnostics Vital Signs (24Hr): Vital Signs - 24 hr 01/11/24 20:00 01/12/24 09:11 01/12/24 09:11 Temperature 97.0 F 97.8 F Pulse Rate 90 87 87 Respiratory Rate 20 18 Blood Pressure 157/91 H 122/78 122/78 Pulse Oximetry 96 97 Oxygen Delivery Method Room Air Room Air BMI result Body Mass Index 60.0 Labs 01/10/24 15:28 12/29/23 09:51 Labs: Laboratory Results - last 48 hr 01/10/24 01/11/24 01/11/24 19:53 09:53 20:10 POC Glucose 152 H 95 159 H 01/12/24 09:03 POC Glucose 127 H Imaging Radiology Impressions: ITS Impressions Ankle X-Ray 01/03/24 19:05 IMPRESSION: 1. No radiographic evidence of bone destruction to suggest osteomyelitis. 2. Soft tissue swelling around the ankle. 3. Large posterior calcaneal spur. Ankle X-Ray 01/07/24 15:35 IMPRESSION: Marked soft tissue swelling without evidence of an acute osseous injury. Venous Duplex 01/08/24 10:03 IMPRESSION: No DVT demonstrated in the right lower extremity. This study was presented today 01/09/2024 for interpretation. Prompt priority results supplied at this time to the referring provider as requested by the provider. Medications Medications Current Medications Acetaminophen (Acetaminophen 325 Mg Tablet) 650 mg PO Q6H PRN PRN Reason: Headache/Pain Mild Scale (1-3) Last Admin: 01/08/24 14:12 Dose: 650 mg Al Hydroxide/Mg Hydroxide (Magnesium Hydrox/Alum Hydrox 30 Ml Oral.Susp) 30 ml PO Q6H PRN PRN Reason: Heartburn/Nausea Last Admin: 11/29/23 22:00 Dose: 30 ml Apixaban (Apixaban 5 Mg Tablet) 5 mg PO BID [facility] Last Admin: 01/12/24 09:12 Dose: 5 mg Atenolol (Atenolol 25 Mg Tablet) 25 mg PO DAILY [facility]; Protocol Last Admin: 01/12/24 09:11 Dose: 25 mg Benzocaine (Throat Lozenge, Medicated Lozenge) 1 lozenge MUCOUS MEM Q2H PRN PRN Reason: Sore Throat Benzocaine (Throat Lozenge, Medicated Lozenge) 1 lozenge MUCOUS MEM Q2H PRN PRN Reason: Sore Throat Clozapine (Clozapine 25 Mg Tablet) 50 mg PO BEDTIME [facility] Last Admin: 01/11/24 22:05 Dose: 50 mg Divalproex Sodium (Divalproex Sodium Sprinkles 125 Mg ) 1,250 mg PO BID [facility] Last Admin: 01/12/24 09:11 Dose: 1,250 mg Docusate Sodium (Docusate Sodium 100 Mg Capsule) 100 mg PO BEDTIME [facility] Last Admin: 01/11/24 22:06 Dose: 100 mg Furosemide (Furosemide 40 Mg Tablet) 40 mg PO DAILY [facility]; Protocol Last Admin: 01/12/24 09:11 Dose: 40 mg Hydrocortisone (Hydrocortisone 1 % Cream 28.35 Gm Tube) 1 appl TOPICAL BID [facility]; Protocol Last Admin: 01/12/24 11:30 Dose: 1 appl Hydroxyzine HCl (Hydroxyzine Hcl 25 Mg Tablet) 25 mg PO Q6H PRN PRN Reason: Anxiety Last Admin: 01/07/24 21:32 Dose: 25 mg Lactic Acid (Ammonium Lactate 12 % Lotion 226 Gm Bottle) 1 appl TOPICAL BID PRN; Protocol PRN Reason: Rash Last Admin: 12/26/23 09:45 Dose: 1 appl Lidocaine (Lidocaine 4 % Patch Adh..Patch) 1 patch TRANSDERMA DAILY [facility]; Protocol Last Admin: 01/12/24 09:21 Dose: Not Given Lorazepam (Lorazepam 1 Mg Tablet) 1 mg PO BEDTIME PRN PRN Reason: insomnia,anxiety,agitation Last Admin: 01/09/24 01:52 Dose: 1 mg Lorazepam (Lorazepam 1 Mg Tablet) 1 mg PO Q6H PRN PRN Reason: severe anxiety Magnesium Hydroxide (Milk Of Magnesia 30 Ml Oral.Susp) 30 ml PO DAILY PRN PRN Reason: Constipation Last Admin: 12/18/23 10:35 Dose: 30 ml Metformin HCl (Metformin Hcl Er 500 Mg Tab.Er.24h) 500 mg PO DAILY [facility] Last Admin: 01/12/24 09:11 Dose: 500 mg Metronidazole (Metronidazole 0.75 % Gel 45 Gm Tube) 1 appl TOPICAL DAILY [facility] Last Admin: 01/12/24 11:29 Dose: 1 appl Multi-Ingred Cream/Lotion/Oil/Oint (Mineral Oil/Petrolatum,White 106 Gm Tube) 1 appl TOPICAL BID [facility] Last Admin: 01/12/24 11:29 Dose: 1 appl Multi-Ingred Medicated Throat Barco (Throat Barco, Medicated 177 Ml Bottle) 1 spray MUCOUS MEM Q2H PRN PRN Reason: Sore Throat Multivitamins/Vitamin C (Multivitamin Tablet) 1 tab PO DAILY [facility] Last Admin: 01/12/24 09:12 Dose: 1 tab Pt Own (Culturelle (Probiotics 1 Cap)) 1 cap PO DAILY [facility] Last Admin: 01/12/24 09:12 Dose: 1 cap Nystatin (Nystatin Powder 15 Gm Bottle) 1 appl TOPICAL BID PRN; Protocol PRN Reason: Rash Last Admin: 12/25/23 11:07 Dose: 1 appl Olanzapine (Olanzapine 5 Mg Tablet) 5 mg PO TID PRN PRN Reason: agitation Last Admin: 01/07/24 21:32 Dose: 5 mg Trazodone HCl (Trazodone Hcl 50 Mg Tablet) 50 mg PO BEDTIME [facility] PRN PRN Reason: Insomnia Last Admin: 01/10/24 19:59 Dose: 50 mg Allergies Allergies Allergy/AdvReac Type Severity Reaction Status Date / Time kiwi [KIWI] Allergy Mild HIVES Verified 11/21/23 05:49 mold [MOLD EXTRACTS*] Allergy Mild HIVES Verified 11/21/23 05:49 Assessment & Plan Assessment & Plan (1) Schizoaffective disorder, bipolar type: Status: Acute Code(s): F25.0 - Schizoaffective disorder, bipolar type Assessment and Plan: 12/01/23: Continue current tx and plan 12/02/23: Continue current plan and tx Change Chlorpromazine daytime doses to prn. 12/03/23 - seems more labile with mother present - reassuring eval by hospitalist today- they are following closely with us but encouraging and supporting patient with compliance with stockings and leg elevation seem paramount 12/04/23- limited mobility did wear kenzie stockings- but won't wear slippers/shoes- difficulty raising her feet up - ongoing hypersexual content of thought/somatic preoccupation of PCOS- wanting to sign 3d 12/05/23 Patient mostly in her room limited mobility somatic preoccupations patient did sign a 3 day unrealistic expectation regarding outpatient setting 12/08/23 Change Chlorpromazine 100 mg HS to prn Decrease Valproate from 3000 mg daily to 2000 mg daily Sustenna 234 mg IM given today by team. 12/09/23 Continue to monitor for daytime sedation. 12/11/23 Continue treatment 12/12/23 Sx of bacterial vaginosis-antibiotic initiated. 12/14/23: Labs ordered for the a.m. 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 Patient labile episodes of being expansive overwhelmed anxiety times somatic paranoid delusional material did receive Invega injection 1 week ago should be a therapeutic dose unfortunately has. 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 Metronidazole gel QD for BV Cris Carballo's consult much appreciated. 01/01 O2 2L at HS Continue current regime Respiratory therapy consult much appreciated. 12/23 disorganized in speech and behavior; making sexualized comments to staff 12/24 little more calm today; still disorganized; continue current treatment plan 12/26/23: Continue current plan. Urology consult much appreciated. 12/28/23: Clozaril consideration. 12/29/23: Father is in agreement to trial Clozapine. Application submitted to [facility] 12/30/23: Preparing for Clozapine. Begin Depakote decrease by 500 mg daily. Father/HCP reviewing Cl[facility]apine [facility] If he is in agreement, will stop Chlorpromazine, obtain EKG and move forward with Clozapine initiation. 12/30: continue current management and treatment plan. 12/31: continue current management and treatment plan. 01/06/24: Continue plan. 01/06: strongly encouraged Invega long-acting injectable. Patient reports he might take this tomorrow. Does endorse right foot swelling. Aware bilateral lower limb swelling has been a chronic issue. There is bilateral redness and some tenderness. No discharge or Increase temperature. That being said right lower limb and foot do appear larger than the left side, with some tenderness. Patient was unsure if she rolled her ankle at 1 point while pacing a lot. Will order ankle x-ray and also non urgent lower limb venous Doppler. After same will consider hospitalist consult. 01/07: accepted invega sustenna today. Doppler and xray results pending 01/08: Doppler/XRay results are negative. Continue current plan of care and regime. 01/09: WBC 7.9, ANC 4.3 Continue Clozapine trial. 01/12/24: Continue Clozapine 50 mg HS (2) Venous stasis: Status: Acute Code(s): I87.8 - Other specified disorders of veins Assessment and Plan: Hosp note 12/31/23: Pt seen at bedside at RN request for patient reassurance regarding BLE edema. Pt has had multiple evaluation for chronic ble edema with chronic venous stasis dermatitis. She has been complaint with compression stockings and improved hygeine overall. Today, appearance of BLE is actually markedly improved. There is still faint erythema of the distal aspect of the BLE and the posterior RLE but overall much improved. No significant warmth. Superfical lesion dorsum R foot well healing. Noevidence of infection. Continue with conservative measures as previously discussed (3) Chronic cellulitis: Status: Acute Code(s): L03.90 - Cellulitis, unspecified Plan 12/01/23: Continue current tx and plan 12/02/23: Continue current plan and tx Change Chlorpromazine daytime doses to prn. 12/03/23 - seems more labile with mother present - reassuring eval by hospitalist today- they are following closely with us but encouraging and supporting patient with compliance with stockings and leg elevation seem paramount 12/04/23- limited mobility did wear kenzie stockings- but won't wear slippers/shoes- difficulty raising her feet up - ongoing hypersexual content of thought/somatic preoccupation of PCOS- wanting to sign 3d 12/05/23 Patient mostly in her room limited mobility somatic preoccupations patient did sign a 3 day unrealistic expectation regarding outpatient setting 12/08/23 Change Chlorpromazine 100 mg HS to prn Decrease Valproate from 3000 mg daily to 2000 mg daily Sustenna 234 mg IM given today by team. 12/09/23 Continue to monitor for daytime sedation. 12/11/23 Continue treatment 12/12/23 Sx of bacterial vaginosis-antibiotic initiated. 12/14/23: Labs ordered for the a.m. 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 Patient labile episodes of being expansive overwhelmed anxiety times somatic paranoid delusional material did receive Invega injection 1 week ago should be a therapeutic dose unfortunately has. 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 Metronidazole gel QD for BV Cris Carballo's consult much appreciated. 01/01 O2 2L at HS Continue current regime Respiratory therapy consult much appreciated. 12/23 disorganized in speech and behavior; making sexualized comments to staff 12/24 little more calm today; still disorganized; continue current treatment plan 12/26/23: Continue current plan. Urology consult much appreciated. 12/28/23: Clozaril consideration. 12/29/23: Father is in agreement to trial Clozapine. Application submitted to [facility] 12/30/23: Preparing for Clozapine. Begin Depakote decrease by 500 mg daily. Father/HCP reviewing Clozapine [facility] If he is in agreement, will stop Chlorpromazine, obtain EKG and move forward with Clozapine initiation. 12/30: continue current management and treatment plan. 12/31: continue current management and treatment plan. 01/06/24: Continue plan. Reason for continued inpatient stay Substantial Risk for: rapid decompensation and med/psych decompensation Time Spent With Patient Time: Total time managing care of this patient today ____ minutes.
[2024-01-12] MEDS: cloZAPine 25 MG TABLET 50 MG PO (20:26)
[2024-01-12] MEDS: Docusate Sodium 100 MG CAPSULE PO (20:26)
[2024-01-12 21:28] LABS: Glucose, Whole Blood 184 mg/dL (60-115)
[2024-01-12 21:41] VITALS: BP 140/86; PULSE 80; RESP 18
[2024-01-13 10:24] LABS: Glucose, Whole Blood 110 mg/dL (60-115)
[2024-01-13 10:28] VITALS: BP 104/81; PULSE 98; RESP 18; TEMP 36.3; O2SAT 96
[2024-01-13 10:30] VITALS: BP 140/81
[2024-01-13] MEDS: metFORMIN HCl ER 500 MG TAB.ER.24H PO (10:30)
[2024-01-13] MEDS: Furosemide 40 MG TABLET PO (10:30)
[2024-01-13 10:31] VITALS: BP 140/81; PULSE 98
[2024-01-13] MEDS: Multivitamin TABLET 1 TAB PO (10:31)
[2024-01-13] MEDS: Apixaban 5 MG TABLET PO ×2 (10:31→20:15)
[2024-01-13] MEDS: Divalproex Sodium Sprinkles 125 MG CAP.DR.SPR 1250 MG PO (10:31)
[2024-01-13] MEDS: atenoloL 25 MG TABLET PO (10:31)
[2024-01-13] MEDS: metroNIDAZOLE 0.75 % Gel 45 GM TUBE 1 APPL TOPICAL (10:38)
[2024-01-13] MEDS: Mineral Oil/Petrolatum,White 106 GM Tube 1 APPL TOPICAL (10:39)
--- NOTE | 2024-01-13 16:32 | HO.PSYCHPN ---
Subjective Subjective Date of Service: 01/13/24 Reason For Visit: manic aggressive Subjective Notes: Conditional Voluntary Healthcare Proxy: Yes Guardianship: No Medical Problems Affecting Mental Status: No Interim History: Slept last night per team report. Today, no outbursts of behavioral dyscontrol. Calmer, more content. I am good. Continues with some tangential, disorganized content. Napped this afternoon. Tolerating Clozapine at 50 mg. Will hold dose for the weekend as afternoon napping is one of her first signs of excess sedation. Medication Compliance: Yes Side effects from medications: No Attending Groups: No Review of Systems Acute medical concerns: No Medical Review of Systems: unchanged Review of Systems Review of Systems Yes all other systems are reviewed and are negative Mental Status Exam Mental Status Exam Patient Appearance: Disheveled and Appropriate Patient Orientation: Person, Place and Situation Level of Consciousness: Drowsy (napping this afternoon) and Alert Patient Behavior: Appropriate, Talkative, Cooperative and Good Eye Contact Mood Description: Constricted Affect Description: Constricted Patient Cognition Impaired: Yes Ability to Follow Directions: Good Speech Pattern: Spontaneous Speech Memory Description: Remote Impaired Hallucinations: None Delusions: Present Thought Process: Distracted and Confusion Thought Content: positive for Circumstantial Depressive Symptoms: Sleeping More Than Usual and Low Self Esteem Judgement: Fair Diagnostics Vital Signs (24Hr): Vital Signs - 24 hr 01/12/24 21:41 01/13/24 10:28 01/13/24 10:30 Temperature 97.3 F Pulse Rate 80 98 Respiratory Rate 18 18 Blood Pressure 140/86 H 104/81 140/81 H Pulse Oximetry 96 Oxygen Delivery Method Room Air 01/13/24 10:31 Temperature Pulse Rate 98 Respiratory Rate Blood Pressure 140/81 H Pulse Oximetry Oxygen Delivery Method BMI result Body Mass Index 60.0 Labs 01/10/24 15:28 12/29/23 09:51 Labs: Laboratory Results - last 48 hr 01/11/24 01/12/24 01/12/24 20:10 09:03 21:24 POC Glucose 159 H 127 H 184 H 01/13/24 10:20 POC Glucose 110 Imaging Radiology Impressions: ITS Impressions Ankle X-Ray 01/03/24 19:05 IMPRESSION: 1. No radiographic evidence of bone destruction to suggest osteomyelitis. 2. Soft tissue swelling around the ankle. 3. Large posterior calcaneal spur. Ankle X-Ray 01/07/24 15:35 IMPRESSION: Marked soft tissue swelling without evidence of an acute osseous injury. Venous Duplex 01/08/24 10:03 IMPRESSION: No DVT demonstrated in the right lower extremity. This study was presented today 01/09/2024 for interpretation. Prompt priority results supplied at this time to the referring provider as requested by the provider. Medications Medications Current Medications Acetaminophen (Acetaminophen 325 Mg Tablet) 650 mg PO Q6H PRN PRN Reason: Headache/Pain Mild Scale (1-3) Last Admin: 01/08/24 14:12 Dose: 650 mg Al Hydroxide/Mg Hydroxide (Magnesium Hydrox/Alum Hydrox 30 Ml Oral.Susp) 30 ml PO Q6H PRN PRN Reason: Heartburn/Nausea Last Admin: 11/29/23 22:00 Dose: 30 ml Apixaban (Apixaban 5 Mg Tablet) 5 mg PO BID [facility] Last Admin: 01/13/24 10:31 Dose: 5 mg Atenolol (Atenolol 25 Mg Tablet) 25 mg PO DAILY [facility]; Protocol Last Admin: 01/13/24 10:31 Dose: 25 mg Benzocaine (Throat Lozenge, Medicated Lozenge) 1 lozenge MUCOUS MEM Q2H PRN PRN Reason: Sore Throat Benzocaine (Throat Lozenge, Medicated Lozenge) 1 lozenge MUCOUS MEM Q2H PRN PRN Reason: Sore Throat Clozapine (Clozapine 25 Mg Tablet) 50 mg PO BEDTIME [facility] Last Admin: 01/12/24 20:26 Dose: 50 mg Divalproex Sodium (Divalproex Sodium Sprinkles 125 Mg Darvin.) 1,250 mg PO BID [facility] Last Admin: 01/13/24 10:31 Dose: 1,250 mg Docusate Sodium (Docusate Sodium 100 Mg Capsule) 100 mg PO BEDTIME [facility] Last Admin: 01/12/24 20:26 Dose: 100 mg Furosemide (Furosemide 40 Mg Tablet) 40 mg PO DAILY [facility]; Protocol Last Admin: 01/13/24 10:30 Dose: 40 mg Hydrocortisone (Hydrocortisone 1 % Cream 28.35 Gm Tube) 1 appl TOPICAL BID [facility]; Protocol Last Admin: 01/13/24 10:39 Dose: Not Given Hydroxyzine HCl (Hydroxyzine Hcl 25 Mg Tablet) 25 mg PO Q6H PRN PRN Reason: Anxiety Last Admin: 01/07/24 21:32 Dose: 25 mg Lactic Acid (Ammonium Lactate 12 % Lotion 226 Gm Bottle) 1 appl TOPICAL BID PRN; Protocol PRN Reason: Rash Last Admin: 12/26/23 09:45 Dose: 1 appl Lorazepam (Lorazepam 1 Mg Tablet) 1 mg PO BEDTIME PRN PRN Reason: insomnia,anxiety,agitation Last Admin: 01/09/24 01:52 Dose: 1 mg Lorazepam (Lorazepam 1 Mg Tablet) 1 mg PO Q6H PRN PRN Reason: severe anxiety Magnesium Hydroxide (Milk Of Magnesia 30 Ml Oral.Susp) 30 ml PO DAILY PRN PRN Reason: Constipation Last Admin: 12/18/23 10:35 Dose: 30 ml Metformin HCl (Metformin Hcl Er 500 Mg Tab.Er.24h) 500 mg PO DAILY [facility] Last Admin: 01/13/24 10:30 Dose: 500 mg Metronidazole (Metronidazole 0.75 % Gel 45 Gm Tube) 1 appl TOPICAL DAILY [facility] Last Admin: 01/13/24 10:38 Dose: 1 appl Multi-Ingred Cream/Lotion/Oil/Oint (Mineral Oil/Petrolatum,White 106 Gm Tube) 1 appl TOPICAL BID [facility] Last Admin: 01/13/24 10:39 Dose: 1 appl Multi-Ingred Medicated Throat Hampton (Throat Hampton, Medicated 177 Ml Bottle) 1 spray MUCOUS MEM Q2H PRN PRN Reason: Sore Throat Multivitamins/Vitamin C (Multivitamin Tablet) 1 tab PO DAILY [facility] Last Admin: 01/13/24 10:31 Dose: 1 tab Pt Own (Culturelle (Probiotics 1 Cap)) 1 cap PO DAILY [facility] Last Admin: 01/13/24 10:38 Dose: 1 cap Nystatin (Nystatin Powder 15 Gm Bottle) 1 appl TOPICAL BID PRN; Protocol PRN Reason: Rash Last Admin: 12/25/23 11:07 Dose: 1 appl Olanzapine (Olanzapine 5 Mg Tablet) 5 mg PO TID PRN PRN Reason: agitation Last Admin: 01/07/24 21:32 Dose: 5 mg Trazodone HCl (Trazodone Hcl 50 Mg Tablet) 50 mg PO BEDTIME MRX1 PRN PRN Reason: Insomnia Last Admin: 01/10/24 19:59 Dose: 50 mg Allergies Allergies Allergy/AdvReac Type Severity Reaction Status Date / Time kiwi [KIWI] Allergy Mild HIVES Verified 11/21/23 05:49 mold [MOLD EXTRACTS*] Allergy Mild HIVES Verified 11/21/23 05:49 Assessment & Plan Assessment & Plan (1) Schizoaffective disorder, bipolar type: Status: Acute Code(s): F25.0 - Schizoaffective disorder, bipolar type Assessment and Plan: 12/01/23: Continue current tx and plan 12/02/23: Continue current plan and tx Change Chlorpromazine daytime doses to prn. 12/03/23 - seems more labile with mother present - reassuring eval by hospitalist today- they are following closely with us but encouraging and supporting patient with compliance with stockings and leg elevation seem paramount 12/04/23- limited mobility did wear kenzie stockings- but won't wear slippers/shoes- difficulty raising her feet up - ongoing hypersexual content of thought/somatic preoccupation of PCOS- wanting to sign 3d 12/05/23 Patient mostly in her room limited mobility somatic preoccupations patient did sign a 3 day unrealistic expectation regarding outpatient setting 12/08/23 Change Chlorpromazine 100 mg HS to prn Decrease Valproate from 3000 mg daily to 2000 mg daily Sustenna 234 mg IM given today by team. 12/09/23 Continue to monitor for daytime sedation. 12/11/23 Continue treatment 12/12/23 Sx of bacterial vaginosis-antibiotic initiated. 12/14/23: Labs ordered for the a.m. 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 Patient labile episodes of being expansive overwhelmed anxiety times somatic paranoid delusional material did receive Invega injection 1 week ago should be a therapeutic dose unfortunately has. 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 Metronidazole gel QD for BV Cris Carballo's consult much appreciated. 01/01 O2 2L at HS Continue current regime Respiratory therapy consult much appreciated. 12/23 disorganized in speech and behavior; making sexualized comments to staff 12/24 little more calm today; still disorganized; continue current treatment plan 12/26/23: Continue current plan. Urology consult much appreciated. 12/28/23: Clozaril consideration. 12/29/23: Father is in agreement to trial Clozapine. Application submitted to [facility] 12/30/23: Preparing for Clozapine. Begin Depakote decrease by 500 mg daily. Father/HCP reviewing Cl[facility]apine [facility] If he is in agreement, will stop Chlorpromazine, obtain EKG and move forward with Clozapine initiation. 12/30: continue current management and treatment plan. 12/31: continue current management and treatment plan. 01/06/24: Continue plan. 01/06: strongly encouraged Invega long-acting injectable. Patient reports he might take this tomorrow. Does endorse right foot swelling. Aware bilateral lower limb swelling has been a chronic issue. There is bilateral redness and some tenderness. No discharge or Increase temperature. That being said right lower limb and foot do appear larger than the left side, with some tenderness. Patient was unsure if she rolled her ankle at 1 point while pacing a lot. Will order ankle x-ray and also non urgent lower limb venous Doppler. After same will consider hospitalist consult. 01/07: accepted invega sustenna today. Doppler and xray results pending 01/08: Doppler/XRay results are negative. Continue current plan of care and regime. 01/09: WBC 7.9, ANC 4.3 Continue Clozapine trial. 01/12/24: Continue Clozapine 50 mg HS 01/13/24: Afternoon sedation. Continue Clozapine 50 mg HS Decrease Depakote to 1000 mg bid from 1250 mg bid (2) Venous stasis: Status: Acute Code(s): I87.8 - Other specified disorders of veins Assessment and Plan: Hosp note 12/31/23: Pt seen at bedside at RN request for patient reassurance regarding BLE edema. Pt has had multiple evaluation for chronic ble edema with chronic venous stasis dermatitis. She has been complaint with compression stockings and improved hygeine overall. Today, appearance of BLE is actually markedly improved. There is still faint erythema of the distal aspect of the BLE and the posterior RLE but overall much improved. No significant warmth. Superfical lesion dorsum R foot well healing. Noevidence of infection. Continue with conservative measures as previously discussed (3) Chronic cellulitis: Status: Acute Code(s): L03.90 - Cellulitis, unspecified Plan 12/01/23: Continue current tx and plan 12/02/23: Continue current plan and tx Change Chlorpromazine daytime doses to prn. 12/03/23 - seems more labile with mother present - reassuring eval by hospitalist today- they are following closely with us but encouraging and supporting patient with compliance with stockings and leg elevation seem paramount 12/04/23- limited mobility did wear kenzie stockings- but won't wear slippers/shoes- difficulty raising her feet up - ongoing hypersexual content of thought/somatic preoccupation of PCOS- wanting to sign 3d 12/05/23 Patient mostly in her room limited mobility somatic preoccupations patient did sign a 3 day unrealistic expectation regarding outpatient setting 12/08/23 Change Chlorpromazine 100 mg HS to prn Decrease Valproate from 3000 mg daily to 2000 mg daily Sustenna 234 mg IM given today by team. 12/09/23 Continue to monitor for daytime sedation. 12/11/23 Continue treatment 12/12/23 Sx of bacterial vaginosis-antibiotic initiated. 12/14/23: Labs ordered for the a.m. 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 Patient labile episodes of being expansive overwhelmed anxiety times somatic paranoid delusional material did receive Invega injection 1 week ago should be a therapeutic dose unfortunately has. 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 Metronidazole gel QD for BV Cris Carballo's consult much appreciated. 01/01 O2 2L at HS Continue current regime Respiratory therapy consult much appreciated. 12/23 disorganized in speech and behavior; making sexualized comments to staff 12/24 little more calm today; still disorganized; continue current treatment plan 12/26/23: Continue current plan. Urology consult much appreciated. 12/28/23: Clozaril consideration. 12/29/23: Father is in agreement to trial Clozapine. Application submitted to [facility] 12/30/23: Preparing for Clozapine. Begin Depakote decrease by 500 mg daily. Father/HCP reviewing Clozapine [facility] If he is in agreement, will stop Chlorpromazine, obtain EKG and move forward with Clozapine initiation. 12/30: continue current management and treatment plan. 12/31: continue current management and treatment plan. 01/06/24: Continue plan. Reason for continued inpatient stay Substantial Risk for: rapid decompensation and med/psych decompensation Time Spent With Patient Time: Total time managing care of this patient today ____ minutes.
[2024-01-13 20:00] VITALS: BP 138/78; PULSE 82; RESP 18; TEMP 36.3; O2SAT 96
[2024-01-13] MEDS: cloZAPine 25 MG TABLET 50 MG PO (20:15)
[2024-01-13] MEDS: Docusate Sodium 100 MG CAPSULE PO (20:15)
[2024-01-13] MEDS: Divalproex Sodium Sprinkles 125 MG CAP.DR.SPR 1000 MG PO (20:16)
[2024-01-13 21:23] LABS: Glucose, Whole Blood 176 mg/dL (60-115)
[2024-01-14 08:18] LABS: Glucose, Whole Blood 91 mg/dL (60-115)
--- NOTE | 2024-01-14 08:49 | HO.PSYCHPN ---
Subjective Subjective Date of Service: 01/14/24 Reason For Visit: manic aggressive Healthcare Proxy: Yes Medical Problems Affecting Mental Status: Yes Side effects from medications: Yes (urinary incontinence, sedation) Attending Groups: No Review of Systems Acute medical concerns: No Medical Review of Systems: unchanged Mental Status Exam Mental Status Exam Narrative: fatigued slept 8 hrs last pm and sedated today with incontinence Patient Appearance: Fatigued and Malodorous Patient Orientation: Person and Place Level of Consciousness: Awake and Drowsy Patient Behavior: Dependent Mood Description: Blunted Affect Description: Blunted Patient Cognition Impaired: No Ability to Follow Directions: Fair Speech Pattern: Clear Thought Process: Intact Thought Content: positive for Intact Judgement: Poor Diagnostics Vital Signs (24Hr): Vital Signs - 24 hr 01/13/24 10:28 01/13/24 10:30 01/13/24 10:31 Temperature 97.3 F Pulse Rate 98 98 Respiratory Rate 18 Blood Pressure 104/81 140/81 H 140/81 H Pulse Oximetry 96 Oxygen Delivery Method Room Air 01/13/24 20:00 Temperature 97.4 F Pulse Rate 82 Respiratory Rate 18 Blood Pressure 138/78 Pulse Oximetry 96 Oxygen Delivery Method Room Air BMI result Body Mass Index 60.0 Labs 01/10/24 15:28 12/29/23 09:51 Labs: Laboratory Results - last 48 hr 01/12/24 01/12/24 01/13/24 09:03 21:24 10:20 POC Glucose 127 H 184 H 110 01/13/24 01/14/24 21:20 08:14 POC Glucose 176 H 91 Imaging Radiology Impressions: ITS Impressions Ankle X-Ray 01/03/24 19:05 IMPRESSION: 1. No radiographic evidence of bone destruction to suggest osteomyelitis. 2. Soft tissue swelling around the ankle. 3. Large posterior calcaneal spur. Ankle X-Ray 01/07/24 15:35 IMPRESSION: Marked soft tissue swelling without evidence of an acute osseous injury. Venous Duplex 01/08/24 10:03 IMPRESSION: No DVT demonstrated in the right lower extremity. This study was presented today 01/09/2024 for interpretation. Prompt priority results supplied at this time to the referring provider as requested by the provider. Medications Medications Current Medications Acetaminophen (Acetaminophen 325 Mg Tablet) 650 mg PO Q6H PRN PRN Reason: Headache/Pain Mild Scale (1-3) Last Admin: 01/08/24 14:12 Dose: 650 mg Al Hydroxide/Mg Hydroxide (Magnesium Hydrox/Alum Hydrox 30 Ml Oral.Susp) 30 ml PO Q6H PRN PRN Reason: Heartburn/Nausea Last Admin: 11/29/23 22:00 Dose: 30 ml Apixaban (Apixaban 5 Mg Tablet) 5 mg PO BID INOCENCIO Last Admin: 01/13/24 20:15 Dose: 5 mg Atenolol (Atenolol 25 Mg Tablet) 25 mg PO DAILY INOCENCIO; Protocol Last Admin: 01/13/24 10:31 Dose: 25 mg Benzocaine (Throat Lozenge, Medicated Lozenge) 1 lozenge MUCOUS MEM Q2H PRN PRN Reason: Sore Throat Benzocaine (Throat Lozenge, Medicated Lozenge) 1 lozenge MUCOUS MEM Q2H PRN PRN Reason: Sore Throat Clozapine (Clozapine 25 Mg Tablet) 50 mg PO BEDTIME INOCENCIO Last Admin: 01/13/24 20:15 Dose: 50 mg Divalproex Sodium (Divalproex Sodium Sprinkles 125 Mg ) 1,000 mg PO BID INOCENCIO Last Admin: 01/13/24 20:16 Dose: 1,000 mg Docusate Sodium (Docusate Sodium 100 Mg Capsule) 100 mg PO BEDTIME INOCENCIO Last Admin: 01/13/24 20:15 Dose: 100 mg Furosemide (Furosemide 40 Mg Tablet) 40 mg PO DAILY [facility]; Protocol Last Admin: 01/13/24 10:30 Dose: 40 mg Hydrocortisone (Hydrocortisone 1 % Cream 28.35 Gm Tube) 1 appl TOPICAL BID INOCENCIO; Protocol Last Admin: 01/13/24 20:22 Dose: Not Given Hydroxyzine HCl (Hydroxyzine Hcl 25 Mg Tablet) 25 mg PO Q6H PRN PRN Reason: Anxiety Last Admin: 01/07/24 21:32 Dose: 25 mg Lactic Acid (Ammonium Lactate 12 % Lotion 226 Gm Bottle) 1 appl TOPICAL BID PRN; Protocol PRN Reason: Rash Last Admin: 12/26/23 09:45 Dose: 1 appl Lorazepam (Lorazepam 1 Mg Tablet) 1 mg PO BEDTIME PRN PRN Reason: insomnia,anxiety,agitation Last Admin: 01/09/24 01:52 Dose: 1 mg Lorazepam (Lorazepam 1 Mg Tablet) 1 mg PO Q6H PRN PRN Reason: severe anxiety Magnesium Hydroxide (Milk Of Magnesia 30 Ml Oral.Susp) 30 ml PO DAILY PRN PRN Reason: Constipation Last Admin: 12/18/23 10:35 Dose: 30 ml Metformin HCl (Metformin Hcl Er 500 Mg Tab.Er.24h) 500 mg PO DAILY [facility] Last Admin: 01/13/24 10:30 Dose: 500 mg Metronidazole (Metronidazole 0.75 % Gel 45 Gm Tube) 1 appl TOPICAL DAILY INOCENCIO Last Admin: 01/13/24 10:38 Dose: 1 appl Multi-Ingred Cream/Lotion/Oil/Oint (Mineral Oil/Petrolatum,White 106 Gm Tube) 1 appl TOPICAL BID INOCENCIO Last Admin: 01/13/24 20:22 Dose: Not Given Multi-Ingred Medicated Throat Enterprise (Throat Enterprise, Medicated 177 Ml Bottle) 1 spray MUCOUS MEM Q2H PRN PRN Reason: Sore Throat Multivitamins/Vitamin C (Multivitamin Tablet) 1 tab PO DAILY INOCENCIO Last Admin: 01/13/24 10:31 Dose: 1 tab Pt Own (Culturelle (Probiotics 1 Cap)) 1 cap PO DAILY [facility] Last Admin: 01/13/24 10:38 Dose: 1 cap Nystatin (Nystatin Powder 15 Gm Bottle) 1 appl TOPICAL BID PRN; Protocol PRN Reason: Rash Last Admin: 12/25/23 11:07 Dose: 1 appl Olanzapine (Olanzapine 5 Mg Tablet) 5 mg PO TID PRN PRN Reason: agitation Last Admin: 01/07/24 21:32 Dose: 5 mg Trazodone HCl (Trazodone Hcl 50 Mg Tablet) 50 mg PO BEDTIME MRX1 PRN PRN Reason: Insomnia Last Admin: 01/10/24 19:59 Dose: 50 mg Allergies Allergies Allergy/AdvReac Type Severity Reaction Status Date / Time kiwi [KIWI] Allergy Mild HIVES Verified 11/21/23 05:49 mold [MOLD EXTRACTS*] Allergy Mild HIVES Verified 11/21/23 05:49 Assessment & Plan Assessment & Plan (1) Schizoaffective disorder, bipolar type: Status: Acute Code(s): F25.0 - Schizoaffective disorder, bipolar type Assessment and Plan: 12/01/23: Continue current tx and plan 12/02/23: Continue current plan and tx Change Chlorpromazine daytime doses to prn. 12/03/23 - seems more labile with mother present - reassuring eval by hospitalist today- they are following closely with us but encouraging and supporting patient with compliance with stockings and leg elevation seem paramount 12/04/23- limited mobility did wear kenzie stockings- but won't wear slippers/shoes- difficulty raising her feet up - ongoing hypersexual content of thought/somatic preoccupation of PCOS- wanting to sign 3d 12/05/23 Patient mostly in her room limited mobility somatic preoccupations patient did sign a 3 day unrealistic expectation regarding outpatient setting 12/08/23 Change Chlorpromazine 100 mg HS to prn Decrease Valproate from 3000 mg daily to 2000 mg daily Sustenna 234 mg IM given today by team. 12/09/23 Continue to monitor for daytime sedation. 12/11/23 Continue treatment 12/12/23 Sx of bacterial vaginosis-antibiotic initiated. 12/14/23: Labs ordered for the a.m. 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 Patient labile episodes of being expansive overwhelmed anxiety times somatic paranoid delusional material did receive Invega injection 1 week ago should be a therapeutic dose unfortunately has. 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 Metronidazole gel QD for BV Cris Carballo's consult much appreciated. 01/01 O2 2L at HS Continue current regime Respiratory therapy consult much appreciated. 12/23 disorganized in speech and behavior; making sexualized comments to staff 12/24 little more calm today; still disorganized; continue current treatment plan 12/26/23: Continue current plan. Urology consult much appreciated. 12/28/23: Clozaril consideration. 12/29/23: Father is in agreement to trial Clozapine. Application submitted to [facility] 12/30/23: Preparing for Clozapine. Begin Depakote decrease by 500 mg daily. Father/HCP reviewing Clozapine [facility] If he is in agreement, will stop Chlorpromazine, obtain EKG and move forward with Clozapine initiation. 12/30: continue current management and treatment plan. 12/31: continue current management and treatment plan. 01/06/24: Continue plan. 01/06: strongly encouraged Invega long-acting injectable. Patient reports he might take this tomorrow. Does endorse right foot swelling. Aware bilateral lower limb swelling has been a chronic issue. There is bilateral redness and some tenderness. No discharge or Increase temperature. That being said right lower limb and foot do appear larger than the left side, with some tenderness. Patient was unsure if she rolled her ankle at 1 point while pacing a lot. Will order ankle x-ray and also non urgent lower limb venous Doppler. After same will consider hospitalist consult. 01/07: accepted invega sustenna today. Doppler and xray results pending 01/08: Doppler/XRay results are negative. Continue current plan of care and regime. 01/09: WBC 7.9, ANC 4.3 Continue Clozapine trial. 01/12/24: Continue Clozapine 50 mg HS 01/13/24: Afternoon sedation. Continue Clozapine 50 mg HS Decrease Depakote to 1000 mg bid from 1250 mg bid (2) Venous stasis: Status: Acute Code(s): I87.8 - Other specified disorders of veins Assessment and Plan: Hosp note 12/31/23: Pt seen at bedside at RN request for patient reassurance regarding BLE edema. Pt has had multiple evaluation for chronic ble edema with chronic venous stasis dermatitis. She has been complaint with compression stockings and improved hygeine overall. Today, appearance of BLE is actually markedly improved. There is still faint erythema of the distal aspect of the BLE and the posterior RLE but overall much improved. No significant warmth. Superfical lesion dorsum R foot well healing. Noevidence of infection. Continue with conservative measures as previously discussed (3) Chronic cellulitis: Status: Acute Code(s): L03.90 - Cellulitis, unspecified Plan 12/01/23: Continue current tx and plan 12/02/23: Continue current plan and tx Change Chlorpromazine daytime doses to prn. 12/03/23 - seems more labile with mother present - reassuring eval by hospitalist today- they are following closely with us but encouraging and supporting patient with compliance with stockings and leg elevation seem paramount 12/04/23- limited mobility did wear kenzie stockings- but won't wear slippers/shoes- difficulty raising her feet up - ongoing hypersexual content of thought/somatic preoccupation of PCOS- wanting to sign 3d 12/05/23 Patient mostly in her room limited mobility somatic preoccupations patient did sign a 3 day unrealistic expectation regarding outpatient setting 12/08/23 Change Chlorpromazine 100 mg HS to prn Decrease Valproate from 3000 mg daily to 2000 mg daily Sustenna 234 mg IM given today by team. 12/09/23 Continue to monitor for daytime sedation. 12/11/23 Continue treatment 12/12/23 Sx of bacterial vaginosis-antibiotic initiated. 12/14/23: Labs ordered for the a.m. 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 Patient labile episodes of being expansive overwhelmed anxiety times somatic paranoid delusional material did receive Invega injection 1 week ago should be a therapeutic dose unfortunately has. 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 Metronidazole gel QD for BV Cris Carballo's consult much appreciated. 01/01 O2 2L at HS Continue current regime Respiratory therapy consult much appreciated. 12/23 disorganized in speech and behavior; making sexualized comments to staff 12/24 little more calm today; still disorganized; continue current treatment plan 12/26/23: Continue current plan. Urology consult much appreciated. 12/28/23: Clozaril consideration. 12/29/23: Father is in agreement to trial Clozapine. Application submitted to [facility] 12/30/23: Preparing for Clozapine. Begin Depakote decrease by 500 mg daily. Father/HCP reviewing Clozapine [facility] If he is in agreement, will stop Chlorpromazine, obtain EKG and move forward with Clozapine initiation. 12/30: continue current management and treatment plan. 12/31: continue current management and treatment plan. 01/06/24: Continue plan.01/06: strongly encouraged Invega long-acting injectable. Patient reports he might take this tomorrow. Does endorse right foot swelling. Aware bilateral lower limb swelling has been a chronic issue. There is bilateral redness and some tenderness. No discharge or Increase temperature. That being said right lower limb and foot do appear larger than the left side, with some tenderness. Patient was unsure if she rolled her ankle at 1 point while pacing a lot. Will order ankle x-ray and also non urgent lower limb venous Doppler. After same will consider hospitalist consult. 01/07: accepted invega sustenna today. Doppler and xray results pending 01/08: Doppler/XRay results are negative. Continue current plan of care and regime. 01/09: WBC 7.9, ANC 4.3 Continue Clozapine trial. 01/12/24: Continue Clozapine 50 mg HS 01/13/24: Afternoon sedation. Continue Clozapine 50 mg HS Decrease Depakote to 1000 mg bid from 1250 m 01/14/24 decrease depakote tp 500mg bid due to xs sedation all day and night, with incontinence- continue clozapine 50mg qhs Informed Consent: does not understand and further education needed Reason for continued inpatient stay Substantial Risk for: inability to function, rapid decompensation and med/psych decompensation Time Spent With Patient Time: Total time managing care of this patient today ____ minutes.
[2024-01-14 09:31] VITALS: BP 141/94; PULSE 89; RESP 19; TEMP 36.2; O2SAT 98
[2024-01-14 09:33] VITALS: BP 141/94; PULSE 89
[2024-01-14] MEDS: Furosemide 40 MG TABLET PO (09:33)
[2024-01-14] MEDS: Multivitamin TABLET 1 TAB PO (09:33)
[2024-01-14] MEDS: atenoloL 25 MG TABLET PO (09:33)
[2024-01-14] MEDS: Apixaban 5 MG TABLET PO ×2 (09:33→22:28)
[2024-01-14] MEDS: metFORMIN HCl ER 500 MG TAB.ER.24H PO (09:33)
[2024-01-14] MEDS: Divalproex Sodium Sprinkles 125 MG CAP.DR.SPR 1000 MG PO (09:35)
[2024-01-14] MEDS: Mineral Oil/Petrolatum,White 106 GM Tube 1 APPL TOPICAL ×2 (09:41→22:34)
[2024-01-14] MEDS: metroNIDAZOLE 0.75 % Gel 45 GM TUBE 1 APPL TOPICAL (13:08)
[2024-01-14] MEDS: Hydrocortisone 1 % Cream 28.35 GM TUBE 1 APPL TOPICAL ×2 (13:08→23:20)
[2024-01-14 14:12] LABS: Neut%MD 57.8 %; Neutrophils Absolute Auto 5.5 x10*3/uL (2.0-8.3); WBCANC 9.5 X10*3/uL
[2024-01-14] MEDS: cloZAPine 25 MG TABLET 50 MG PO (22:27)
[2024-01-14] MEDS: Docusate Sodium 100 MG CAPSULE PO (22:28)
[2024-01-14] MEDS: Divalproex Sodium Sprinkles 125 MG CAP.DR.SPR 500 MG PO (22:28)
[2024-01-15] MEDS: Furosemide 40 MG TABLET PO (10:09)
[2024-01-15] MEDS: Multivitamin TABLET 1 TAB PO (10:09)
[2024-01-15] MEDS: metFORMIN HCl ER 500 MG TAB.ER.24H PO (10:10)
[2024-01-15] MEDS: Apixaban 5 MG TABLET PO ×2 (10:10→22:15)
[2024-01-15] MEDS: atenoloL 25 MG TABLET PO (10:10)
[2024-01-15] MEDS: Divalproex Sodium Sprinkles 125 MG CAP.DR.SPR 500 MG PO ×2 (10:10→22:17)
[2024-01-15] MEDS: Mineral Oil/Petrolatum,White 106 GM Tube 1 APPL TOPICAL (10:14)
[2024-01-15 10:19] VITALS: BP 174/94; PULSE 78; RESP 20; TEMP 36.5; O2SAT 99
--- NOTE | 2024-01-15 10:45 | HO.PSYCHPN ---
Subjective Subjective Date of Service: 01/15/24 Reason For Visit: manic aggressive Subjective Notes: Conditional Voluntary Healthcare Proxy: Yes Interim History: Less oversedated on lower dpeakote , hope that clozapine can hold psychosis- pt has been total care with urination due to xs sedation from meds for last few days- Seems excited about visit from mother and sister today- Still believes her water has broken though this may be from experence of incontinence xs in last few days Medication Compliance: Yes Side effects from medications: Yes (xs sedation better now- ) Attending Groups: Intermittent Review of Systems Medical Review of Systems: unchanged Mental Status Exam Mental Status Exam Patient Appearance: Well Grooomed (with staff support) Patient Orientation: Person, Place and Situation Level of Consciousness: Awake Patient Behavior: Dependent, Talkative, Cooperative and Good Eye Contact Mood Description: Calm Affect Description: Labile Patient Cognition Impaired: No Ability to Follow Directions: Fair Speech Pattern: Clear Delusions: Present Thought Process: Intact Thought Content: positive for Flight of Ideas Depressive Symptoms: Sleeping More Than Usual Judgement: Poor Diagnostics Vital Signs (24Hr): Vital Signs - 24 hr 01/15/24 10:19 Temperature 97.7 F Pulse Rate 78 Respiratory Rate 20 Blood Pressure 174/94 H Pulse Oximetry 99 Oxygen Delivery Method Room Air BMI result Body Mass Index 60.0 Labs 01/10/24 15:28 12/29/23 09:51 Labs: Laboratory Results - last 48 hr 01/13/24 01/14/24 01/14/24 21:20 08:14 13:58 Absolute Neuts (auto) 5.5 POC Glucose 176 H 91 Imaging Radiology Impressions: ITS Impressions Ankle X-Ray 01/03/24 19:05 IMPRESSION: 1. No radiographic evidence of bone destruction to suggest osteomyelitis. 2. Soft tissue swelling around the ankle. 3. Large posterior calcaneal spur. Ankle X-Ray 01/07/24 15:35 IMPRESSION: Marked soft tissue swelling without evidence of an acute osseous injury. Venous Duplex 01/08/24 10:03 IMPRESSION: No DVT demonstrated in the right lower extremity. This study was presented today 01/09/2024 for interpretation. Prompt priority results supplied at this time to the referring provider as requested by the provider. Medications Medications Current Medications Acetaminophen (Acetaminophen 325 Mg Tablet) 650 mg PO Q6H PRN PRN Reason: Headache/Pain Mild Scale (1-3) Last Admin: 01/08/24 14:12 Dose: 650 mg Al Hydroxide/Mg Hydroxide (Magnesium Hydrox/Alum Hydrox 30 Ml Oral.Susp) 30 ml PO Q6H PRN PRN Reason: Heartburn/Nausea Last Admin: 11/29/23 22:00 Dose: 30 ml Apixaban (Apixaban 5 Mg Tablet) 5 mg PO BID INOCENCIO Last Admin: 01/15/24 10:10 Dose: 5 mg Atenolol (Atenolol 25 Mg Tablet) 25 mg PO DAILY INOCENCIO; Protocol Last Admin: 01/15/24 10:10 Dose: 25 mg Benzocaine (Throat Lozenge, Medicated Lozenge) 1 lozenge MUCOUS MEM Q2H PRN PRN Reason: Sore Throat Benzocaine (Throat Lozenge, Medicated Lozenge) 1 lozenge MUCOUS MEM Q2H PRN PRN Reason: Sore Throat Clozapine (Clozapine 25 Mg Tablet) 50 mg PO BEDTIME INOCENCIO Last Admin: 01/14/24 22:27 Dose: 50 mg Divalproex Sodium (Divalproex Sodium Sprinkles 125 Mg Cap.DrJcSpr) 500 mg PO BID INOCENCIO Last Admin: 01/15/24 10:10 Dose: 500 mg Docusate Sodium (Docusate Sodium 100 Mg Capsule) 100 mg PO BEDTIME INOCENCIO Last Admin: 01/14/24 22:28 Dose: 100 mg Furosemide (Furosemide 40 Mg Tablet) 40 mg PO DAILY INOCENCIO; Protocol Last Admin: 01/15/24 10:09 Dose: 40 mg Hydrocortisone (Hydrocortisone 1 % Cream 28.35 Gm Tube) 1 appl TOPICAL BID INOCENCIO; Protocol Last Admin: 01/14/24 23:20 Dose: 1 appl Hydroxyzine HCl (Hydroxyzine Hcl 25 Mg Tablet) 25 mg PO Q6H PRN PRN Reason: Anxiety Last Admin: 01/07/24 21:32 Dose: 25 mg Lactic Acid (Ammonium Lactate 12 % Lotion 226 Gm Bottle) 1 appl TOPICAL BID PRN; Protocol PRN Reason: Rash Last Admin: 12/26/23 09:45 Dose: 1 appl Lorazepam (Lorazepam 1 Mg Tablet) 1 mg PO BEDTIME PRN PRN Reason: insomnia,anxiety,agitation Last Admin: 01/09/24 01:52 Dose: 1 mg Lorazepam (Lorazepam 1 Mg Tablet) 1 mg PO Q6H PRN PRN Reason: severe anxiety Magnesium Hydroxide (Milk Of Magnesia 30 Ml Oral.Susp) 30 ml PO DAILY PRN PRN Reason: Constipation Last Admin: 12/18/23 10:35 Dose: 30 ml Metformin HCl (Metformin Hcl Er 500 Mg Tab.Er.24h) 500 mg PO DAILY [facility] Last Admin: 01/15/24 10:10 Dose: 500 mg Metronidazole (Metronidazole 0.75 % Gel 45 Gm Tube) 1 appl TOPICAL DAILY INOCENCIO Last Admin: 01/14/24 13:08 Dose: 1 appl Multi-Ingred Cream/Lotion/Oil/Oint (Mineral Oil/Petrolatum,White 106 Gm Tube) 1 appl TOPICAL BID [facility] Last Admin: 01/15/24 10:14 Dose: 1 appl Multi-Ingred Medicated Throat [place] (Throat [place], Medicated 177 Ml Bottle) 1 spray MUCOUS MEM Q2H PRN PRN Reason: Sore Throat Multivitamins/Vitamin C (Multivitamin Tablet) 1 tab PO DAILY [facility] Last Admin: 01/15/24 10:09 Dose: 1 tab Pt Own (Culturelle (Probiotics 1 Cap)) 1 cap PO DAILY [facility] Last Admin: 01/15/24 10:13 Dose: 1 cap Nystatin (Nystatin Powder 15 Gm Bottle) 1 appl TOPICAL BID PRN; Protocol PRN Reason: Rash Last Admin: 12/25/23 11:07 Dose: 1 appl Olanzapine (Olanzapine 5 Mg Tablet) 5 mg PO TID PRN PRN Reason: agitation Last Admin: 01/07/24 21:32 Dose: 5 mg Allergies Allergies Allergy/AdvReac Type Severity Reaction Status Date / Time kiwi [KIWI] Allergy Mild HIVES Verified 11/21/23 05:49 mold [MOLD EXTRACTS*] Allergy Mild HIVES Verified 11/21/23 05:49 Assessment & Plan Assessment & Plan (1) Schizoaffective disorder, bipolar type: Status: Acute Code(s): F25.0 - Schizoaffective disorder, bipolar type Assessment and Plan: 12/01/23: Continue current tx and plan 12/02/23: Continue current plan and tx Change Chlorpromazine daytime doses to prn. 12/03/23 - seems more labile with mother present - reassuring eval by hospitalist today- they are following closely with us but encouraging and supporting patient with compliance with stockings and leg elevation seem paramount 12/04/23- limited mobility did wear kenzie stockings- but won't wear slippers/shoes- difficulty raising her feet up - ongoing hypersexual content of thought/somatic preoccupation of PCOS- wanting to sign 3d 12/05/23 Patient mostly in her room limited mobility somatic preoccupations patient did sign a 3 day unrealistic expectation regarding outpatient setting 12/08/23 Change Chlorpromazine 100 mg HS to prn Decrease Valproate from 3000 mg daily to 2000 mg daily Sustenna 234 mg IM given today by team. 12/09/23 Continue to monitor for daytime sedation. 12/11/23 Continue treatment 12/12/23 Sx of bacterial vaginosis-antibiotic initiated. 12/14/23: Labs ordered for the a.m. 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 Patient labile episodes of being expansive overwhelmed anxiety times somatic paranoid delusional material did receive Invega injection 1 week ago should be a therapeutic dose unfortunately has. 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 Metronidazole gel QD for BV Cris Carballo's consult much appreciated. 01/01 O2 2L at HS Continue current regime Respiratory therapy consult much appreciated. 12/23 disorganized in speech and behavior; making sexualized comments to staff 12/24 little more calm today; still disorganized; continue current treatment plan 12/26/23: Continue current plan. Urology consult much appreciated. 12/28/23: Clozaril consideration. 12/29/23: Father is in agreement to trial Clozapine. Application submitted to [facility] 12/30/23: Preparing for Clozapine. Begin Depakote decrease by 500 mg daily. Father/HCP reviewing Cl[facility]apine [facility] If he is in agreement, will stop Chlorpromazine, obtain EKG and move forward with Clozapine initiation. 12/30: continue current management and treatment plan. 12/31: continue current management and treatment plan. 01/06/24: Continue plan. 01/06: strongly encouraged Invega long-acting injectable. Patient reports he might take this tomorrow. Does endorse right foot swelling. Aware bilateral lower limb swelling has been a chronic issue. There is bilateral redness and some tenderness. No discharge or Increase temperature. That being said right lower limb and foot do appear larger than the left side, with some tenderness. Patient was unsure if she rolled her ankle at 1 point while pacing a lot. Will order ankle x-ray and also non urgent lower limb venous Doppler. After same will consider hospitalist consult. 01/07: accepted invega sustenna today. Doppler and xray results pending 01/08: Doppler/XRay results are negative. Continue current plan of care and regime. 01/09: WBC 7.9, ANC 4.3 Continue Clozapine trial. 01/12/24: Continue Clozapine 50 mg HS 01/13/24: Afternoon sedation. Continue Clozapine 50 mg HS Decrease Depakote to 1000 mg bid from 1250 mg bid 01/15/24 lowered her dpeakote down to 500mg bid- seems more awake tonight slept all night and still had incontinence and couldn't make it to bathroom this am- (2) Venous stasis: Status: Acute Code(s): I87.8 - Other specified disorders of veins Assessment and Plan: Hosp note 12/31/23: Pt seen at bedside at RN request for patient reassurance regarding BLE edema. Pt has had multiple evaluation for chronic ble edema with chronic venous stasis dermatitis. She has been complaint with compression stockings and improved hygeine overall. Today, appearance of BLE is actually markedly improved. There is still faint erythema of the distal aspect of the BLE and the posterior RLE but overall much improved. No significant warmth. Superfical lesion dorsum R foot well healing. Noevidence of infection. Continue with conservative measures as previously discussed (3) Chronic cellulitis: Status: Acute Code(s): L03.90 - Cellulitis, unspecified Plan 12/01/23: Continue current tx and plan 12/02/23: Continue current plan and tx Change Chlorpromazine daytime doses to prn. 12/03/23 - seems more labile with mother present - reassuring eval by hospitalist today- they are following closely with us but encouraging and supporting patient with compliance with stockings and leg elevation seem paramount 12/04/23- limited mobility did wear kenzie stockings- but won't wear slippers/shoes- difficulty raising her feet up - ongoing hypersexual content of thought/somatic preoccupation of PCOS- wanting to sign 3d 12/05/23 Patient mostly in her room limited mobility somatic preoccupations patient did sign a 3 day unrealistic expectation regarding outpatient setting 12/08/23 Change Chlorpromazine 100 mg HS to prn Decrease Valproate from 3000 mg daily to 2000 mg daily Sustenna 234 mg IM given today by team. 12/09/23 Continue to monitor for daytime sedation. 12/11/23 Continue treatment 12/12/23 Sx of bacterial vaginosis-antibiotic initiated. 12/14/23: Labs ordered for the a.m. 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 Patient labile episodes of being expansive overwhelmed anxiety times somatic paranoid delusional material did receive Invega injection 1 week ago should be a therapeutic dose unfortunately has. 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 Metronidazole gel QD for BV Cris Carballo's consult much appreciated. 01/01 O2 2L at HS Continue current regime Respiratory therapy consult much appreciated. 12/23 disorganized in speech and behavior; making sexualized comments to staff 12/24 little more calm today; still disorganized; continue current treatment plan 12/26/23: Continue current plan. Urology consult much appreciated. 12/28/23: Clozaril consideration. 12/29/23: Father is in agreement to trial Clozapine. Application submitted to [facility] 12/30/23: Preparing for Clozapine. Begin Depakote decrease by 500 mg daily. Father/HCP reviewing Clozapine [facility] If he is in agreement, will stop Chlorpromazine, obtain EKG and move forward with Clozapine initiation. 12/30: continue current management and treatment plan. 12/31: continue current management and treatment plan. 01/06/24: Continue plan.01/06: strongly encouraged Invega long-acting injectable. Patient reports he might take this tomorrow. Does endorse right foot swelling. Aware bilateral lower limb swelling has been a chronic issue. There is bilateral redness and some tenderness. No discharge or Increase temperature. That being said right lower limb and foot do appear larger than the left side, with some tenderness. Patient was unsure if she rolled her ankle at 1 point while pacing a lot. Will order ankle x-ray and also non urgent lower limb venous Doppler. After same will consider hospitalist consult. 01/07: accepted invega sustenna today. Doppler and xray results pending 01/08: Doppler/XRay results are negative. Continue current plan of care and regime. 01/09: WBC 7.9, ANC 4.3 Continue Clozapine trial. 01/12/24: Continue Clozapine 50 mg HS 01/13/24: Afternoon sedation. Continue Clozapine 50 mg HS Decrease Depakote to 1000 mg bid from 1250 m 01/14/24 decrease depakote tp 500mg bid due to xs sedation all day and night, with incontinence- continue clozapine 50mg qhs 01/15/24 more alert today! Patient educated on: medication risk/benefits Informed Consent: further education needed Reason for continued inpatient stay Substantial Risk for: rapid decompensation and med/psych decompensation Time Spent With Patient Time: Total time managing care of this patient today ____ minutes.
[2024-01-15 10:56] LABS: Glucose, Whole Blood 103 mg/dL (60-115)
[2024-01-15] MEDS: metroNIDAZOLE 0.75 % Gel 45 GM TUBE 1 APPL TOPICAL (11:23)
[2024-01-15 12:47] VITALS: BP 128/76; PULSE 82
[2024-01-15 20:00] VITALS: BP 134/80; PULSE 86; RESP 20; TEMP 36.3; O2SAT 99
[2024-01-15] MEDS: cloZAPine 25 MG TABLET 50 MG PO (22:16)
[2024-01-15] MEDS: Docusate Sodium 100 MG CAPSULE PO (22:17)
[2024-01-16 08:00] VITALS: BP 133/78; PULSE 77; RESP 18; TEMP 36.6; O2SAT 99
[2024-01-16] MEDS: Mineral Oil/Petrolatum,White 106 GM Tube 1 APPL TOPICAL (08:17)
[2024-01-16] MEDS: Hydrocortisone 1 % Cream 28.35 GM TUBE 1 APPL TOPICAL (08:18)
[2024-01-16] MEDS: metroNIDAZOLE 0.75 % Gel 45 GM TUBE 1 APPL TOPICAL (08:18)
[2024-01-16] MEDS: Divalproex Sodium Sprinkles 125 MG CAP.DR.SPR 500 MG PO ×2 (09:39→21:54)
[2024-01-16] MEDS: Furosemide 40 MG TABLET PO (09:39)
[2024-01-16] MEDS: Multivitamin TABLET 1 TAB PO (09:39)
[2024-01-16] MEDS: Apixaban 5 MG TABLET PO ×2 (09:39→21:53)
[2024-01-16] MEDS: metFORMIN HCl ER 500 MG TAB.ER.24H PO (09:39)
[2024-01-16] MEDS: atenoloL 25 MG TABLET PO (09:39)
[2024-01-16 09:40] LABS: Glucose, Whole Blood 108 mg/dL (60-115)
--- NOTE | 2024-01-16 10:20 | HO.PSYCHPN ---
Subjective Subjective Date of Service: 01/16/24 Reason For Visit: manic aggressive Subjective Notes: Conditional Voluntary Healthcare Proxy: Yes Guardianship: No Medical Problems Affecting Mental Status: No Interim History: Team report pt was sedate over the weekend, along with having urinary incontinence. Clozapine kept at 50 mg. Depakote decreased to 2000 mg daily 01/12, 1000 mg daily 01/13. Today, pt is awake, calm, clear, asking to discharge. She continues with somatic, delusional content at times and is worried about her water breaking, delivery of a child and who will take care of this child when she discharges. She does respond to reality testing today. Call from pt's father to discuss sedation. Regime and changes were reviewed with him. Medication Compliance: Yes Side effects from medications: No Attending Groups: No Review of Systems Acute medical concerns: No Medical Review of Systems: unchanged Review of Systems Review of Systems Intermittent symptoms reported Denies pain. Mental Status Exam Mental Status Exam Patient Appearance: Well Grooomed (with staff support) Patient Orientation: Person, Place and Situation Level of Consciousness: Awake Patient Behavior: Dependent, Talkative, Cooperative and Good Eye Contact Mood Description: Calm Affect Description: Labile Patient Cognition Impaired: No Ability to Follow Directions: Fair Speech Pattern: Clear Delusions: Present Thought Process: Intact Thought Content: positive for Flight of Ideas Depressive Symptoms: Sleeping More Than Usual Judgement: Poor Diagnostics Vital Signs (24Hr): Vital Signs - 24 hr 01/15/24 12:47 01/15/24 20:00 01/16/24 08:00 Temperature 97.4 F 98 F Pulse Rate 82 86 77 Respiratory Rate 20 18 Blood Pressure 128/76 134/80 133/78 Pulse Oximetry 99 99 Oxygen Delivery Method Room Air Room Air BMI result Body Mass Index 60.0 Labs 01/10/24 15:28 12/29/23 09:51 Labs: Laboratory Results - last 48 hr 01/14/24 01/15/24 01/16/24 13:58 10:51 09:36 Absolute Neuts (auto) 5.5 POC Glucose 103 108 Imaging Radiology Impressions: ITS Impressions Ankle X-Ray 01/03/24 19:05 IMPRESSION: 1. No radiographic evidence of bone destruction to suggest osteomyelitis. 2. Soft tissue swelling around the ankle. 3. Large posterior calcaneal spur. Ankle X-Ray 01/07/24 15:35 IMPRESSION: Marked soft tissue swelling without evidence of an acute osseous injury. Venous Duplex 01/08/24 10:03 IMPRESSION: No DVT demonstrated in the right lower extremity. This study was presented today 01/09/2024 for interpretation. Prompt priority results supplied at this time to the referring provider as requested by the provider. Medications Medications Current Medications Acetaminophen (Acetaminophen 325 Mg Tablet) 650 mg PO Q6H PRN PRN Reason: Headache/Pain Mild Scale (1-3) Last Admin: 01/08/24 14:12 Dose: 650 mg Al Hydroxide/Mg Hydroxide (Magnesium Hydrox/Alum Hydrox 30 Ml Oral.Susp) 30 ml PO Q6H PRN PRN Reason: Heartburn/Nausea Last Admin: 11/29/23 22:00 Dose: 30 ml Apixaban (Apixaban 5 Mg Tablet) 5 mg PO BID REPLACED BY [facility] Last Admin: 01/16/24 09:39 Dose: 5 mg Atenolol (Atenolol 25 Mg Tablet) 25 mg PO DAILY REPLACED BY [facility]; Protocol Last Admin: 01/16/24 09:39 Dose: 25 mg Benzocaine (Throat Lozenge, Medicated Lozenge) 1 lozenge MUCOUS MEM Q2H PRN PRN Reason: Sore Throat Benzocaine (Throat Lozenge, Medicated Lozenge) 1 lozenge MUCOUS MEM Q2H PRN PRN Reason: Sore Throat Clozapine (Clozapine 25 Mg Tablet) 50 mg PO BEDTIME REPLACED BY [facility] Last Admin: 01/15/24 22:16 Dose: 50 mg Divalproex Sodium (Divalproex Sodium Sprinkles 125 Mg Darvin.) 500 mg PO BID REPLACED BY [facility] Last Admin: 01/16/24 09:39 Dose: 500 mg Docusate Sodium (Docusate Sodium 100 Mg Capsule) 100 mg PO BEDTIME INOCENCIO Last Admin: 01/15/24 22:17 Dose: 100 mg Furosemide (Furosemide 40 Mg Tablet) 40 mg PO DAILY REPLACED BY [facility]; Protocol Last Admin: 01/16/24 09:39 Dose: 40 mg Hydrocortisone (Hydrocortisone 1 % Cream 28.35 Gm Tube) 1 appl TOPICAL BID REPLACED BY [facility]; Protocol Last Admin: 01/16/24 08:18 Dose: 1 appl Hydroxyzine HCl (Hydroxyzine Hcl 25 Mg Tablet) 25 mg PO Q6H PRN PRN Reason: Anxiety Last Admin: 01/07/24 21:32 Dose: 25 mg Lactic Acid (Ammonium Lactate 12 % Lotion 226 Gm Bottle) 1 appl TOPICAL BID PRN; Protocol PRN Reason: Rash Last Admin: 12/26/23 09:45 Dose: 1 appl Lorazepam (Lorazepam 1 Mg Tablet) 1 mg PO BEDTIME PRN PRN Reason: insomnia,anxiety,agitation Last Admin: 01/09/24 01:52 Dose: 1 mg Lorazepam (Lorazepam 1 Mg Tablet) 1 mg PO Q6H PRN PRN Reason: severe anxiety Magnesium Hydroxide (Milk Of Magnesia 30 Ml Oral.Susp) 30 ml PO DAILY PRN PRN Reason: Constipation Last Admin: 12/18/23 10:35 Dose: 30 ml Metformin HCl (Metformin Hcl Er 500 Mg Tab.Er.24h) 500 mg PO DAILY INOCENCIO Last Admin: 01/16/24 09:39 Dose: 500 mg Metronidazole (Metronidazole 0.75 % Gel 45 Gm Tube) 1 appl TOPICAL DAILY INOCENCIO Last Admin: 01/16/24 08:18 Dose: 1 appl Multi-Ingred Cream/Lotion/Oil/Oint (Mineral Oil/Petrolatum,White 106 Gm Tube) 1 appl TOPICAL BID INOCENCIO Last Admin: 01/16/24 08:17 Dose: 1 appl Multi-Ingred Medicated Throat [place] (Throat [place], Medicated 177 Ml Bottle) 1 spray MUCOUS MEM Q2H PRN PRN Reason: Sore Throat Multivitamins/Vitamin C (Multivitamin Tablet) 1 tab PO DAILY INOCENCIO Last Admin: 01/16/24 09:39 Dose: 1 tab Pt Own (Culturelle (Probiotics 1 Cap)) 1 cap PO DAILY INOCENCIO Last Admin: 01/16/24 08:17 Dose: 1 cap Nystatin (Nystatin Powder 15 Gm Bottle) 1 appl TOPICAL BID PRN; Protocol PRN Reason: Rash Last Admin: 12/25/23 11:07 Dose: 1 appl Olanzapine (Olanzapine 5 Mg Tablet) 5 mg PO TID PRN PRN Reason: agitation Last Admin: 01/07/24 21:32 Dose: 5 mg Allergies Allergies Allergy/AdvReac Type Severity Reaction Status Date / Time kiwi [KIWI] Allergy Mild HIVES Verified 11/21/23 05:49 mold [MOLD EXTRACTS*] Allergy Mild HIVES Verified 11/21/23 05:49 Assessment & Plan Assessment & Plan (1) Schizoaffective disorder, bipolar type: Status: Acute Code(s): F25.0 - Schizoaffective disorder, bipolar type Assessment and Plan: 12/01/23: Continue current tx and plan 12/02/23: Continue current plan and tx Change Chlorpromazine daytime doses to prn. 12/03/23 - seems more labile with mother present - reassuring eval by hospitalist today- they are following closely with us but encouraging and supporting patient with compliance with stockings and leg elevation seem paramount 12/04/23- limited mobility did wear kenzie stockings- but won't wear slippers/shoes- difficulty raising her feet up - ongoing hypersexual content of thought/somatic preoccupation of PCOS- wanting to sign 3d 12/05/23 Patient mostly in her room limited mobility somatic preoccupations patient did sign a 3 day unrealistic expectation regarding outpatient setting 12/08/23 Change Chlorpromazine 100 mg HS to prn Decrease Valproate from 3000 mg daily to 2000 mg daily Sustenna 234 mg IM given today by team. 12/09/23 Continue to monitor for daytime sedation. 12/11/23 Continue treatment 12/12/23 Sx of bacterial vaginosis-antibiotic initiated. 12/14/23: Labs ordered for the a.m. 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 Patient labile episodes of being expansive overwhelmed anxiety times somatic paranoid delusional material did receive Invega injection 1 week ago should be a therapeutic dose unfortunately has. 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 Metronidazole gel QD for BV Cris Carballo's consult much appreciated. 01/01 O2 2L at HS Continue current regime Respiratory therapy consult much appreciated. 12/23 disorganized in speech and behavior; making sexualized comments to staff 12/24 little more calm today; still disorganized; continue current treatment plan 12/26/23: Continue current plan. Urology consult much appreciated. 12/28/23: Clozaril consideration. 12/29/23: Father is in agreement to trial Clozapine. Application submitted to [facility] 12/30/23: Preparing for Clozapine. Begin Depakote decrease by 500 mg daily. Father/HCP reviewing Clozapine [facility] If he is in agreement, will stop Chlorpromazine, obtain EKG and move forward with Clozapine initiation. 12/30: continue current management and treatment plan. 12/31: continue current management and treatment plan. 01/06/24: Continue plan. 01/06: strongly encouraged Invega long-acting injectable. Patient reports he might take this tomorrow. Does endorse right foot swelling. Aware bilateral lower limb swelling has been a chronic issue. There is bilateral redness and some tenderness. No discharge or Increase temperature. That being said right lower limb and foot do appear larger than the left side, with some tenderness. Patient was unsure if she rolled her ankle at 1 point while pacing a lot. Will order ankle x-ray and also non urgent lower limb venous Doppler. After same will consider hospitalist consult. 01/07: accepted invega sustenna today. Doppler and xray results pending 01/08: Doppler/XRay results are negative. Continue current plan of care and regime. 01/09: WBC 7.9, ANC 4.3 Continue Clozapine trial. 01/12/24: Continue Clozapine 50 mg HS 01/13/24: Afternoon sedation. Continue Clozapine 50 mg HS Decrease Depakote to 1000 mg bid from 1250 mg bid 01/15/24 lowered her dpeakote down to 500mg bid- seems more awake tonight slept all night and still had incontinence and couldn't make it to bathroom this am- 01/16/24 No changes today. (2) Venous stasis: Status: Acute Code(s): I87.8 - Other specified disorders of veins Assessment and Plan: Hosp note 12/31/23: Pt seen at bedside at RN request for patient reassurance regarding BLE edema. Pt has had multiple evaluation for chronic ble edema with chronic venous stasis dermatitis. She has been complaint with compression stockings and improved hygeine overall. Today, appearance of BLE is actually markedly improved. There is still faint erythema of the distal aspect of the BLE and the posterior RLE but overall much improved. No significant warmth. Superfical lesion dorsum R foot well healing. Noevidence of infection. Continue with conservative measures as previously discussed (3) Chronic cellulitis: Status: Acute Code(s): L03.90 - Cellulitis, unspecified Plan 12/01/23: Continue current tx and plan 12/02/23: Continue current plan and tx Change Chlorpromazine daytime doses to prn. 12/03/23 - seems more labile with mother present - reassuring eval by hospitalist today- they are following closely with us but encouraging and supporting patient with compliance with stockings and leg elevation seem paramount 12/04/23- limited mobility did wear kenzie stockings- but won't wear slippers/shoes- difficulty raising her feet up - ongoing hypersexual content of thought/somatic preoccupation of PCOS- wanting to sign 3d 12/05/23 Patient mostly in her room limited mobility somatic preoccupations patient did sign a 3 day unrealistic expectation regarding outpatient setting 12/08/23 Change Chlorpromazine 100 mg HS to prn Decrease Valproate from 3000 mg daily to 2000 mg daily Sustenna 234 mg IM given today by team. 12/09/23 Continue to monitor for daytime sedation. 12/11/23 Continue treatment 12/12/23 Sx of bacterial vaginosis-antibiotic initiated. 12/14/23: Labs ordered for the a.m. 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 Patient labile episodes of being expansive overwhelmed anxiety times somatic paranoid delusional material did receive Invega injection 1 week ago should be a therapeutic dose unfortunately has. 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 Metronidazole gel QD for BV Cris Carballo's consult much appreciated. 01/01 O2 2L at HS Continue current regime Respiratory therapy consult much appreciated. 12/23 disorganized in speech and behavior; making sexualized comments to staff 12/24 little more calm today; still disorganized; continue current treatment plan 12/26/23: Continue current plan. Urology consult much appreciated. 12/28/23: Clozaril consideration. 12/29/23: Father is in agreement to trial Clozapine. Application submitted to [facility] 12/30/23: Preparing for Clozapine. Begin Depakote decrease by 500 mg daily. Father/HCP reviewing Clozapine [facility] If he is in agreement, will stop Chlorpromazine, obtain EKG and move forward with Clozapine initiation. 12/30: continue current management and treatment plan. 12/31: continue current management and treatment plan. 01/06/24: Continue plan.01/06: strongly encouraged Invega long-acting injectable. Patient reports he might take this tomorrow. Does endorse right foot swelling. Aware bilateral lower limb swelling has been a chronic issue. There is bilateral redness and some tenderness. No discharge or Increase temperature. That being said right lower limb and foot do appear larger than the left side, with some tenderness. Patient was unsure if she rolled her ankle at 1 point while pacing a lot. Will order ankle x-ray and also non urgent lower limb venous Doppler. After same will consider hospitalist consult. 01/07: accepted invega sustenna today. Doppler and xray results pending 01/08: Doppler/XRay results are negative. Continue current plan of care and regime. 01/09: WBC 7.9, ANC 4.3 Continue Clozapine trial. 01/12/24: Continue Clozapine 50 mg HS 01/13/24: Afternoon sedation. Continue Clozapine 50 mg HS Decrease Depakote to 1000 mg bid from 1250 m 01/14/24 decrease depakote tp 500mg bid due to xs sedation all day and night, with incontinence- continue clozapine 50mg qhs 01/15/24 more alert today! Reason for continued inpatient stay Substantial Risk for: rapid decompensation and med/psych decompensation Time Spent With Patient Time: Total time managing care of this patient today ____ minutes.
[2024-01-16 19:59] VITALS: BP 123/56; PULSE 77; RESP 18; TEMP 36.6; O2SAT 98
[2024-01-16] MEDS: cloZAPine 25 MG TABLET 50 MG PO (21:54)
[2024-01-16] MEDS: Docusate Sodium 100 MG CAPSULE PO (21:54)
[2024-01-16 22:51] LABS: Glucose, Whole Blood 117 mg/dL (60-115)
[2024-01-17] MEDS: Hydrocortisone 1 % Cream 28.35 GM TUBE 1 APPL TOPICAL (08:46)
[2024-01-17] MEDS: Mineral Oil/Petrolatum,White 106 GM Tube 1 APPL TOPICAL (08:46)
[2024-01-17 08:47] VITALS: BP 144/76; PULSE 72; RESP 18; TEMP 36.6; O2SAT 99
[2024-01-17] MEDS: metroNIDAZOLE 0.75 % Gel 45 GM TUBE 1 APPL TOPICAL (08:47)
[2024-01-17 08:49] VITALS: BP 144/76; PULSE 72
[2024-01-17] MEDS: Furosemide 40 MG TABLET PO (08:49)
[2024-01-17] MEDS: atenoloL 25 MG TABLET PO (08:49)
[2024-01-17] MEDS: metFORMIN HCl ER 500 MG TAB.ER.24H PO (08:49)
[2024-01-17] MEDS: Multivitamin TABLET 1 TAB PO (08:49)
[2024-01-17] MEDS: Apixaban 5 MG TABLET PO ×2 (08:49→22:33)
[2024-01-17] MEDS: Divalproex Sodium Sprinkles 125 MG CAP.DR.SPR 500 MG PO ×2 (08:50→22:30)
--- NOTE | 2024-01-17 09:54 | P.PNPSI_ITS ---
Subjective Subjective Date of Service: 01/17/24 Reason For Visit: manic aggressive Subjective Notes: Conditional Voluntary Healthcare Proxy: Yes Guardianship: No Medical Problems Affecting Mental Status: No Interim History: Continues with sedation with medication decreases, however, no episodes of agitation, clearer thought process with some delusional content. Call to father to address his concerns-she is not calling him as much, she is not eating (this is not an accurate report) and she is sleeping later in the a.m. Interactive and appropriate in the milieu. States she is feeling improved. Medication Compliance: Yes Side effects from medications: No Attending Groups: No Review of Systems Acute medical concerns: No Medical Review of Systems: unchanged Review of Systems Review of Systems Yes all other systems are reviewed and are negative Mental Status Exam Mental Status Exam Patient Appearance: Well Grooomed (with staff support) Patient Orientation: Person, Place and Situation Level of Consciousness: Awake Patient Behavior: Dependent, Talkative, Cooperative and Good Eye Contact Mood Description: Calm Affect Description: Labile Patient Cognition Impaired: No Ability to Follow Directions: Fair Speech Pattern: Clear Delusions: Present Thought Process: Intact Thought Content: positive for Flight of Ideas Depressive Symptoms: Sleeping More Than Usual Judgement: Poor Diagnostics Vital Signs (24Hr): Vital Signs - 24 hr 01/16/24 19:59 01/17/24 08:47 01/17/24 08:49 Temperature 97.9 F 98 F Pulse Rate 77 72 Respiratory Rate 18 18 Blood Pressure 123/56 L 144/76 H 144/76 H Pulse Oximetry 98 99 Oxygen Delivery Method Room Air Room Air 01/17/24 08:49 Temperature Pulse Rate 72 Respiratory Rate Blood Pressure 144/76 H Pulse Oximetry Oxygen Delivery Method BMI result Body Mass Index 60.0 Labs 01/10/24 15:28 12/29/23 09:51 Labs: Laboratory Results - last 48 hr 01/15/24 01/16/24 01/16/24 10:51 09:36 22:48 POC Glucose 103 108 117 H Imaging Radiology Impressions: ITS Impressions Ankle X-Ray 01/03/24 19:05 IMPRESSION: 1. No radiographic evidence of bone destruction to suggest osteomyelitis. 2. Soft tissue swelling around the ankle. 3. Large posterior calcaneal spur. Ankle X-Ray 01/07/24 15:35 IMPRESSION: Marked soft tissue swelling without evidence of an acute osseous injury. Venous Duplex 01/08/24 10:03 IMPRESSION: No DVT demonstrated in the right lower extremity. This study was presented today 01/09/2024 for interpretation. Prompt priority results supplied at this time to the referring provider as requested by the provider. Medications Medications Current Medications Acetaminophen (Acetaminophen 325 Mg Tablet) 650 mg PO Q6H PRN PRN Reason: Headache/Pain Mild Scale (1-3) Last Admin: 01/08/24 14:12 Dose: 650 mg Al Hydroxide/Mg Hydroxide (Magnesium Hydrox/Alum Hydrox 30 Ml Oral.Susp) 30 ml PO Q6H PRN PRN Reason: Heartburn/Nausea Last Admin: 11/29/23 22:00 Dose: 30 ml Apixaban (Apixaban 5 Mg Tablet) 5 mg PO BID INOCENCIO Last Admin: 01/17/24 08:49 Dose: 5 mg Atenolol (Atenolol 25 Mg Tablet) 25 mg PO DAILY INOCENCIO; Protocol Last Admin: 01/17/24 08:49 Dose: 25 mg Benzocaine (Throat Lozenge, Medicated Lozenge) 1 lozenge MUCOUS MEM Q2H PRN PRN Reason: Sore Throat Benzocaine (Throat Lozenge, Medicated Lozenge) 1 lozenge MUCOUS MEM Q2H PRN PRN Reason: Sore Throat Clozapine (Clozapine 25 Mg Tablet) 50 mg PO BEDTIME INOCENCIO Last Admin: 01/16/24 21:54 Dose: 50 mg Divalproex Sodium (Divalproex Sodium Sprinkles 125 Mg ) 500 mg PO BID INOCENCIO Last Admin: 01/17/24 08:50 Dose: 500 mg Docusate Sodium (Docusate Sodium 100 Mg Capsule) 100 mg PO BEDTIME INOCENCIO Last Admin: 01/16/24 21:54 Dose: 100 mg Furosemide (Furosemide 40 Mg Tablet) 40 mg PO DAILY INOCENCIO; Protocol Last Admin: 01/17/24 08:49 Dose: 40 mg Hydrocortisone (Hydrocortisone 1 % Cream 28.35 Gm Tube) 1 appl TOPICAL BID INOCENCIO; Protocol Last Admin: 01/17/24 08:46 Dose: 1 appl Hydroxyzine HCl (Hydroxyzine Hcl 25 Mg Tablet) 25 mg PO Q6H PRN PRN Reason: Anxiety Last Admin: 01/07/24 21:32 Dose: 25 mg Lactic Acid (Ammonium Lactate 12 % Lotion 226 Gm Bottle) 1 appl TOPICAL BID PRN; Protocol PRN Reason: Rash Last Admin: 12/26/23 09:45 Dose: 1 appl Lorazepam (Lorazepam 1 Mg Tablet) 1 mg PO BEDTIME PRN PRN Reason: insomnia,anxiety,agitation Last Admin: 01/09/24 01:52 Dose: 1 mg Lorazepam (Lorazepam 1 Mg Tablet) 1 mg PO Q6H PRN PRN Reason: severe anxiety Magnesium Hydroxide (Milk Of Magnesia 30 Ml Oral.Susp) 30 ml PO DAILY PRN PRN Reason: Constipation Last Admin: 12/18/23 10:35 Dose: 30 ml Metformin HCl (Metformin Hcl Er 500 Mg Tab.Er.24h) 500 mg PO DAILY COUNTS INCLUDE 234 BEDS AT THE [facility] Last Admin: 01/17/24 08:49 Dose: 500 mg Metronidazole (Metronidazole 0.75 % Gel 45 Gm Tube) 1 appl TOPICAL DAILY COUNTS INCLUDE 234 BEDS AT THE [facility] Last Admin: 01/17/24 08:47 Dose: 1 appl Multi-Ingred Cream/Lotion/Oil/Oint (Mineral Oil/Petrolatum,White 106 Gm Tube) 1 appl TOPICAL BID COUNTS INCLUDE 234 BEDS AT THE [facility] Last Admin: 01/17/24 08:46 Dose: 1 appl Multi-Ingred Medicated Throat Martha (Throat Martha, Medicated 177 Ml Bottle) 1 spray MUCOUS MEM Q2H PRN PRN Reason: Sore Throat Multivitamins/Vitamin C (Multivitamin Tablet) 1 tab PO DAILY COUNTS INCLUDE 234 BEDS AT THE [facility] Last Admin: 01/17/24 08:49 Dose: 1 tab Pt Own (Culturelle (Probiotics 1 Cap)) 1 cap PO DAILY COUNTS INCLUDE 234 BEDS AT THE [facility] Last Admin: 01/17/24 08:46 Dose: 1 cap Nystatin (Nystatin Powder 15 Gm Bottle) 1 appl TOPICAL BID PRN; Protocol PRN Reason: Rash Last Admin: 12/25/23 11:07 Dose: 1 appl Olanzapine (Olanzapine 5 Mg Tablet) 5 mg PO TID PRN PRN Reason: agitation Last Admin: 01/07/24 21:32 Dose: 5 mg Allergies Allergies Allergy/AdvReac Type Severity Reaction Status Date / Time kiwi [KIWI] Allergy Mild HIVES Verified 11/21/23 05:49 mold [MOLD EXTRACTS*] Allergy Mild HIVES Verified 11/21/23 05:49 Assessment & Plan Assessment & Plan (1) Schizoaffective disorder, bipolar type: Status: Acute Code(s): F25.0 - Schizoaffective disorder, bipolar type Assessment and Plan: 12/01/23: Continue current tx and plan 12/02/23: Continue current plan and tx Change Chlorpromazine daytime doses to prn. 12/03/23 - seems more labile with mother present - reassuring eval by hospitalist today- they are following closely with us but encouraging and supporting patient with compliance with stockings and leg elevation seem paramount 12/04/23- limited mobility did wear kenzie stockings- but won't wear slippers/shoes- difficulty raising her feet up - ongoing hypersexual content of thought/somatic preoccupation of PCOS- wanting to sign 3d 12/05/23 Patient mostly in her room limited mobility somatic preoccupations patient did sign a 3 day unrealistic expectation regarding outpatient setting 12/08/23 Change Chlorpromazine 100 mg HS to prn Decrease Valproate from 3000 mg daily to 2000 mg daily Sustenna 234 mg IM given today by team. 12/09/23 Continue to monitor for daytime sedation. 12/11/23 Continue treatment 12/12/23 Sx of bacterial vaginosis-antibiotic initiated. 12/14/23: Labs ordered for the a.m. 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 Patient labile episodes of being expansive overwhelmed anxiety times somatic paranoid delusional material did receive Invega injection 1 week ago should be a therapeutic dose unfortunately has. 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 Metronidazole gel QD for BV Cris Carballo's consult much appreciated. 01/01 O2 2L at HS Continue current regime Respiratory therapy consult much appreciated. 12/23 disorganized in speech and behavior; making sexualized comments to staff 12/24 little more calm today; still disorganized; continue current treatment plan 12/26/23: Continue current plan. Urology consult much appreciated. 12/28/23: Clozaril consideration. 12/29/23: Father is in agreement to trial Clozapine. Application submitted to [facility] 12/30/23: Preparing for Clozapine. Begin Depakote decrease by 500 mg daily. Father/HCP reviewing Clozapine [facility] If he is in agreement, will stop Chlorpromazine, obtain EKG and move forward with Clozapine initiation. 12/30: continue current management and treatment plan. 12/31: continue current management and treatment plan. 01/06/24: Continue plan. 01/06: strongly encouraged Invega long-acting injectable. Patient reports he might take this tomorrow. Does endorse right foot swelling. Aware bilateral lower limb swelling has been a chronic issue. There is bilateral redness and some tenderness. No discharge or Increase temperature. That being said right lower limb and foot do appear larger than the left side, with some tenderness. Patient was unsure if she rolled her ankle at 1 point while pacing a lot. Will order ankle x-ray and also non urgent lower limb venous Doppler. After same will consider hospitalist consult. 01/07: accepted invega sustenna today. Doppler and xray results pending 01/08: Doppler/XRay results are negative. Continue current plan of care and regime. 01/09: WBC 7.9, ANC 4.3 Continue Clozapine trial. 01/12/24: Continue Clozapine 50 mg HS 01/13/24: Afternoon sedation. Continue Clozapine 50 mg HS Decrease Depakote to 1000 mg bid from 1250 mg bid 01/15/24 lowered her dpeakote down to 500mg bid- seems more awake tonight slept all night and still had incontinence and couldn't make it to bathroom this am- 01/16/24 No changes today. 01/17/24 Continue current regime. (2) Venous stasis: Status: Acute Code(s): I87.8 - Other specified disorders of veins Assessment and Plan: Hosp note 12/31/23: Pt seen at bedside at RN request for patient reassurance regarding BLE edema. Pt has had multiple evaluation for chronic ble edema with chronic venous stasis dermatitis. She has been complaint with compression stockings and improved hygeine overall. Today, appearance of BLE is actually markedly improved. There is still faint erythema of the distal aspect of the BLE and the posterior RLE but overall much improved. No significant warmth. Superfical lesion dorsum R foot well healing. Noevidence of infection. Continue with conservative measures as previously discussed (3) Chronic cellulitis: Status: Acute Code(s): L03.90 - Cellulitis, unspecified Plan 12/01/23: Continue current tx and plan 12/02/23: Continue current plan and tx Change Chlorpromazine daytime doses to prn. 12/03/23 - seems more labile with mother present - reassuring eval by hospitalist today- they are following closely with us but encouraging and supporting patient with compliance with stockings and leg elevation seem paramount 12/04/23- limited mobility did wear kenzie stockings- but won't wear slippers/shoes- difficulty raising her feet up - ongoing hypersexual content of thought/somatic preoccupation of PCOS- wanting to sign 3d 12/05/23 Patient mostly in her room limited mobility somatic preoccupations patient did sign a 3 day unrealistic expectation regarding outpatient setting 12/08/23 Change Chlorpromazine 100 mg HS to prn Decrease Valproate from 3000 mg daily to 2000 mg daily Sustenna 234 mg IM given today by team. 12/09/23 Continue to monitor for daytime sedation. 12/11/23 Continue treatment 12/12/23 Sx of bacterial vaginosis-antibiotic initiated. 12/14/23: Labs ordered for the a.m. 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 Patient labile episodes of being expansive overwhelmed anxiety times somatic paranoid delusional material did receive Invega injection 1 week ago should be a therapeutic dose unfortunately has. 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 Metronidazole gel QD for BV Cris Carballo's consult much appreciated. 01/01 O2 2L at HS Continue current regime Respiratory therapy consult much appreciated. 12/23 disorganized in speech and behavior; making sexualized comments to staff 12/24 little more calm today; still disorganized; continue current treatment plan 12/26/23: Continue current plan. Urology consult much appreciated. 12/28/23: Clozaril consideration. 12/29/23: Father is in agreement to trial Clozapine. Application submitted to [facility] 12/30/23: Preparing for Clozapine. Begin Depakote decrease by 500 mg daily. Father/HCP reviewing Clozapine [facility] If he is in agreement, will stop Chlorpromazine, obtain EKG and move forward with Clozapine initiation. 12/30: continue current management and treatment plan. 12/31: continue current management and treatment plan. 01/06/24: Continue plan.01/06: strongly encouraged Invega long-acting injectable. Patient reports he might take this tomorrow. Does endorse right foot swelling. Aware bilateral lower limb swelling has been a chronic issue. There is bilateral redness and some tenderness. No discharge or Increase temperature. That being said right lower limb and foot do appear larger than the left side, with some tenderness. Patient was unsure if she rolled her ankle at 1 point while pacing a lot. Will order ankle x-ray and also non urgent lower limb venous Doppler. After same will consider hospitalist consult. 01/07: accepted invega sustenna today. Doppler and xray results pending 01/08: Doppler/XRay results are negative. Continue current plan of care and regime. 01/09: WBC 7.9, ANC 4.3 Continue Clozapine trial. 01/12/24: Continue Clozapine 50 mg HS 01/13/24: Afternoon sedation. Continue Clozapine 50 mg HS Decrease Depakote to 1000 mg bid from 1250 m 01/14/24 decrease depakote tp 500mg bid due to xs sedation all day and night, with incontinence- continue clozapine 50mg qhs 01/15/24 more alert today! Reason for continued inpatient stay Substantial Risk for: rapid decompensation Time Spent With Patient Time: Total time managing care of this patient today ____ minutes.
[2024-01-17 09:57] LABS: Glucose, Whole Blood 102 mg/dL (60-115)
[2024-01-17] MEDS: cloZAPine 25 MG TABLET 50 MG PO (22:32)
[2024-01-17] MEDS: Docusate Sodium 100 MG CAPSULE PO (22:33)
[2024-01-18 10:50] VITALS: BP 138/97; PULSE 100; RESP 18; TEMP 36.7; O2SAT 96
[2024-01-18] MEDS: Apixaban 5 MG TABLET PO ×2 (10:52→22:07)
[2024-01-18] MEDS: metFORMIN HCl ER 500 MG TAB.ER.24H PO (10:52)
[2024-01-18] MEDS: Divalproex Sodium Sprinkles 125 MG CAP.DR.SPR 500 MG PO ×2 (10:52→22:07)
[2024-01-18] MEDS: Multivitamin TABLET 1 TAB PO (10:52)
[2024-01-18] MEDS: Mineral Oil/Petrolatum,White 106 GM Tube 1 APPL TOPICAL ×2 (10:54→22:19)
[2024-01-18] MEDS: Hydrocortisone 1 % Cream 28.35 GM TUBE 1 APPL TOPICAL ×2 (10:54→22:09)
[2024-01-18 10:57] LABS: Glucose, Whole Blood 105 mg/dL (60-115)
[2024-01-18 11:00] VITALS: BP 138/97; PULSE 100
[2024-01-18] MEDS: atenoloL 25 MG TABLET PO (11:00)
[2024-01-18] MEDS: Furosemide 40 MG TABLET PO (11:00)
[2024-01-18] MEDS: metroNIDAZOLE 0.75 % Gel 45 GM TUBE 1 APPL TOPICAL (11:04)
--- NOTE | 2024-01-18 11:57 | HO.PSYCHPN ---
Subjective Subjective Date of Service: 01/18/24 Reason For Visit: manic aggressive Subjective Notes: Conditional Voluntary Healthcare Proxy: Yes Guardianship: No Medical Problems Affecting Mental Status: No Interim History: Pt continues with mood and behavioral control. She continues with sedation. Is eating 50-75% of meals. No incontinence per team report. Discussed care with father and Shanelle Blas [facility]. Sue will meet with pt's OP team next week and we will tentatively plan discharge for mid week, asking to meet with parents prior to discharge. Father is anxious to have pt return home. He asked about further decreases of medications. He discussed the past four years and this illness being new for pt. Also reviewed plans to address ongoing sedation. Medication Compliance: Yes Side effects from medications: No Attending Groups: No Review of Systems Acute medical concerns: No Medical Review of Systems: unchanged Review of Systems Review of Systems Yes all other systems are reviewed and are negative Mental Status Exam Mental Status Exam Patient Appearance: Well Grooomed (with staff support) Patient Orientation: Person, Place and Situation Level of Consciousness: Awake Patient Behavior: Dependent, Talkative, Cooperative and Good Eye Contact Mood Description: Calm Affect Description: Labile Patient Cognition Impaired: No Ability to Follow Directions: Fair Speech Pattern: Clear Delusions: Present Thought Process: Intact Thought Content: positive for Flight of Ideas Depressive Symptoms: Sleeping More Than Usual Judgement: Poor Diagnostics Vital Signs (24Hr): Vital Signs - 24 hr 01/18/24 10:50 01/18/24 11:00 01/18/24 11:00 Temperature 98.1 F Pulse Rate 100 100 Respiratory Rate 18 Blood Pressure 138/97 H 138/97 H 138/97 H Pulse Oximetry 96 Oxygen Delivery Method Room Air BMI result Body Mass Index 60.0 Labs 01/10/24 15:28 12/29/23 09:51 Labs: Laboratory Results - last 48 hr 01/16/24 01/17/24 01/18/24 22:48 09:54 10:53 POC Glucose 117 H 102 105 Imaging Radiology Impressions: ITS Impressions Ankle X-Ray 01/03/24 19:05 IMPRESSION: 1. No radiographic evidence of bone destruction to suggest osteomyelitis. 2. Soft tissue swelling around the ankle. 3. Large posterior calcaneal spur. Ankle X-Ray 01/07/24 15:35 IMPRESSION: Marked soft tissue swelling without evidence of an acute osseous injury. Venous Duplex 01/08/24 10:03 IMPRESSION: No DVT demonstrated in the right lower extremity. This study was presented today 01/09/2024 for interpretation. Prompt priority results supplied at this time to the referring provider as requested by the provider. Medications Medications Current Medications Acetaminophen (Acetaminophen 325 Mg Tablet) 650 mg PO Q6H PRN PRN Reason: Headache/Pain Mild Scale (1-3) Last Admin: 01/08/24 14:12 Dose: 650 mg Al Hydroxide/Mg Hydroxide (Magnesium Hydrox/Alum Hydrox 30 Ml Oral.Susp) 30 ml PO Q6H PRN PRN Reason: Heartburn/Nausea Last Admin: 11/29/23 22:00 Dose: 30 ml Apixaban (Apixaban 5 Mg Tablet) 5 mg PO BID INOCENCIO Last Admin: 01/18/24 10:52 Dose: 5 mg Atenolol (Atenolol 25 Mg Tablet) 25 mg PO DAILY INOCENCIO; Protocol Last Admin: 01/18/24 11:00 Dose: 25 mg Benzocaine (Throat Lozenge, Medicated Lozenge) 1 lozenge MUCOUS MEM Q2H PRN PRN Reason: Sore Throat Benzocaine (Throat Lozenge, Medicated Lozenge) 1 lozenge MUCOUS MEM Q2H PRN PRN Reason: Sore Throat Clozapine (Clozapine 25 Mg Tablet) 50 mg PO BEDTIME INOCENCIO Last Admin: 01/17/24 22:32 Dose: 50 mg Divalproex Sodium (Divalproex Sodium Sprinkles 125 Mg Darvin.) 500 mg PO BID INOCENCIO Last Admin: 01/18/24 10:52 Dose: 500 mg Docusate Sodium (Docusate Sodium 100 Mg Capsule) 100 mg PO BEDTIME INOCENCIO Last Admin: 01/17/24 22:33 Dose: 100 mg Furosemide (Furosemide 40 Mg Tablet) 40 mg PO DAILY INOCECNIO; Protocol Last Admin: 01/18/24 11:00 Dose: 40 mg Hydrocortisone (Hydrocortisone 1 % Cream 28.35 Gm Tube) 1 appl TOPICAL BID INOCENCIO; Protocol Last Admin: 01/18/24 10:54 Dose: 1 appl Hydroxyzine HCl (Hydroxyzine Hcl 25 Mg Tablet) 25 mg PO Q6H PRN PRN Reason: Anxiety Last Admin: 01/07/24 21:32 Dose: 25 mg Lactic Acid (Ammonium Lactate 12 % Lotion 226 Gm Bottle) 1 appl TOPICAL BID PRN; Protocol PRN Reason: Rash Last Admin: 12/26/23 09:45 Dose: 1 appl Lorazepam (Lorazepam 1 Mg Tablet) 1 mg PO BEDTIME PRN PRN Reason: insomnia,anxiety,agitation Last Admin: 01/09/24 01:52 Dose: 1 mg Lorazepam (Lorazepam 1 Mg Tablet) 1 mg PO Q6H PRN PRN Reason: severe anxiety Magnesium Hydroxide (Milk Of Magnesia 30 Ml Oral.Susp) 30 ml PO DAILY PRN PRN Reason: Constipation Last Admin: 12/18/23 10:35 Dose: 30 ml Metformin HCl (Metformin Hcl Er 500 Mg Tab.Er.24h) 500 mg PO DAILY INOCENCIO Last Admin: 01/18/24 10:52 Dose: 500 mg Metronidazole (Metronidazole 0.75 % Gel 45 Gm Tube) 1 appl TOPICAL DAILY COUNTS INCLUDE 234 BEDS AT THE [facility] Last Admin: 01/18/24 11:04 Dose: 1 appl Multi-Ingred Cream/Lotion/Oil/Oint (Mineral Oil/Petrolatum,White 106 Gm Tube) 1 appl TOPICAL BID COUNTS INCLUDE 234 BEDS AT THE [facility] Last Admin: 01/18/24 10:54 Dose: 1 appl Multi-Ingred Medicated Throat [place] (Throat [place], Medicated 177 Ml Bottle) 1 spray MUCOUS MEM Q2H PRN PRN Reason: Sore Throat Multivitamins/Vitamin C (Multivitamin Tablet) 1 tab PO DAILY COUNTS INCLUDE 234 BEDS AT THE [facility] Last Admin: 01/18/24 10:52 Dose: 1 tab Pt Own (Culturelle (Probiotics 1 Cap)) 1 cap PO DAILY COUNTS INCLUDE 234 BEDS AT THE [facility] Last Admin: 01/18/24 10:53 Dose: 1 cap Nystatin (Nystatin Powder 15 Gm Bottle) 1 appl TOPICAL BID PRN; Protocol PRN Reason: Rash Last Admin: 12/25/23 11:07 Dose: 1 appl Olanzapine (Olanzapine 5 Mg Tablet) 5 mg PO TID PRN PRN Reason: agitation Last Admin: 01/07/24 21:32 Dose: 5 mg Allergies Allergies Allergy/AdvReac Type Severity Reaction Status Date / Time kiwi [KIWI] Allergy Mild HIVES Verified 11/21/23 05:49 mold [MOLD EXTRACTS*] Allergy Mild HIVES Verified 11/21/23 05:49 Assessment & Plan Assessment & Plan (1) Schizoaffective disorder, bipolar type: Status: Acute Code(s): F25.0 - Schizoaffective disorder, bipolar type Assessment and Plan: 12/01/23: Continue current tx and plan 12/02/23: Continue current plan and tx Change Chlorpromazine daytime doses to prn. 12/03/23 - seems more labile with mother present - reassuring eval by hospitalist today- they are following closely with us but encouraging and supporting patient with compliance with stockings and leg elevation seem paramount 12/04/23- limited mobility did wear kenzie stockings- but won't wear slippers/shoes- difficulty raising her feet up - ongoing hypersexual content of thought/somatic preoccupation of PCOS- wanting to sign 3d 12/05/23 Patient mostly in her room limited mobility somatic preoccupations patient did sign a 3 day unrealistic expectation regarding outpatient setting 12/08/23 Change Chlorpromazine 100 mg HS to prn Decrease Valproate from 3000 mg daily to 2000 mg daily Sustenna 234 mg IM given today by team. 12/09/23 Continue to monitor for daytime sedation. 12/11/23 Continue treatment 12/12/23 Sx of bacterial vaginosis-antibiotic initiated. 12/14/23: Labs ordered for the a.m. 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 Patient labile episodes of being expansive overwhelmed anxiety times somatic paranoid delusional material did receive Invega injection 1 week ago should be a therapeutic dose unfortunately has. 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 Metronidazole gel QD for BV Cris Carballo's consult much appreciated. 01/01 O2 2L at HS Continue current regime Respiratory therapy consult much appreciated. 12/23 disorganized in speech and behavior; making sexualized comments to staff 12/24 little more calm today; still disorganized; continue current treatment plan 12/26/23: Continue current plan. Urology consult much appreciated. 12/28/23: Clozaril consideration. 12/29/23: Father is in agreement to trial Clozapine. Application submitted to [facility] 12/30/23: Preparing for Clozapine. Begin Depakote decrease by 500 mg daily. Father/HCP reviewing Clozapine [facility] If he is in agreement, will stop Chlorpromazine, obtain EKG and move forward with Clozapine initiation. 12/30: continue current management and treatment plan. 12/31: continue current management and treatment plan. 01/06/24: Continue plan. 01/06: strongly encouraged Invega long-acting injectable. Patient reports he might take this tomorrow. Does endorse right foot swelling. Aware bilateral lower limb swelling has been a chronic issue. There is bilateral redness and some tenderness. No discharge or Increase temperature. That being said right lower limb and foot do appear larger than the left side, with some tenderness. Patient was unsure if she rolled her ankle at 1 point while pacing a lot. Will order ankle x-ray and also non urgent lower limb venous Doppler. After same will consider hospitalist consult. 01/07: accepted invega sustenna today. Doppler and xray results pending 01/08: Doppler/XRay results are negative. Continue current plan of care and regime. 01/09: WBC 7.9, ANC 4.3 Continue Clozapine trial. 01/12/24: Continue Clozapine 50 mg HS 01/13/24: Afternoon sedation. Continue Clozapine 50 mg HS Decrease Depakote to 1000 mg bid from 1250 mg bid 01/15/24 lowered her dpeakote down to 500mg bid- seems more awake tonight slept all night and still had incontinence and couldn't make it to bathroom this am- 01/16/24 No changes today. 01/18/24 Continue current regime/plan. Tentative discharge to home next week. (2) Venous stasis: Status: Acute Code(s): I87.8 - Other specified disorders of veins Assessment and Plan: Hosp note 12/31/23: Pt seen at bedside at RN request for patient reassurance regarding BLE edema. Pt has had multiple evaluation for chronic ble edema with chronic venous stasis dermatitis. She has been complaint with compression stockings and improved hygeine overall. Today, appearance of BLE is actually markedly improved. There is still faint erythema of the distal aspect of the BLE and the posterior RLE but overall much improved. No significant warmth. Superfical lesion dorsum R foot well healing. Noevidence of infection. Continue with conservative measures as previously discussed (3) Chronic cellulitis: Status: Acute Code(s): L03.90 - Cellulitis, unspecified Plan 12/01/23: Continue current tx and plan 12/02/23: Continue current plan and tx Change Chlorpromazine daytime doses to prn. 12/03/23 - seems more labile with mother present - reassuring eval by hospitalist today- they are following closely with us but encouraging and supporting patient with compliance with stockings and leg elevation seem paramount 12/04/23- limited mobility did wear kenzie stockings- but won't wear slippers/shoes- difficulty raising her feet up - ongoing hypersexual content of thought/somatic preoccupation of PCOS- wanting to sign 3d 12/05/23 Patient mostly in her room limited mobility somatic preoccupations patient did sign a 3 day unrealistic expectation regarding outpatient setting 12/08/23 Change Chlorpromazine 100 mg HS to prn Decrease Valproate from 3000 mg daily to 2000 mg daily Sustenna 234 mg IM given today by team. 12/09/23 Continue to monitor for daytime sedation. 12/11/23 Continue treatment 12/12/23 Sx of bacterial vaginosis-antibiotic initiated. 12/14/23: Labs ordered for the a.m. 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 Patient labile episodes of being expansive overwhelmed anxiety times somatic paranoid delusional material did receive Invega injection 1 week ago should be a therapeutic dose unfortunately has. 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 Metronidazole gel QD for BV Cris Carballo's consult much appreciated. 01/01 O2 2L at HS Continue current regime Respiratory therapy consult much appreciated. 12/23 disorganized in speech and behavior; making sexualized comments to staff 12/24 little more calm today; still disorganized; continue current treatment plan 12/26/23: Continue current plan. Urology consult much appreciated. 12/28/23: Clozaril consideration. 12/29/23: Father is in agreement to trial Clozapine. Application submitted to [facility] 12/30/23: Preparing for Clozapine. Begin Depakote decrease by 500 mg daily. Father/HCP reviewing Clozapine [facility] If he is in agreement, will stop Chlorpromazine, obtain EKG and move forward with Clozapine initiation. 12/30: continue current management and treatment plan. 12/31: continue current management and treatment plan. 01/06/24: Continue plan.01/06: strongly encouraged Invega long-acting injectable. Patient reports he might take this tomorrow. Does endorse right foot swelling. Aware bilateral lower limb swelling has been a chronic issue. There is bilateral redness and some tenderness. No discharge or Increase temperature. That being said right lower limb and foot do appear larger than the left side, with some tenderness. Patient was unsure if she rolled her ankle at 1 point while pacing a lot. Will order ankle x-ray and also non urgent lower limb venous Doppler. After same will consider hospitalist consult. 01/07: accepted invega sustenna today. Doppler and xray results pending 01/08: Doppler/XRay results are negative. Continue current plan of care and regime. 01/09: WBC 7.9, ANC 4.3 Continue Clozapine trial. 01/12/24: Continue Clozapine 50 mg HS 01/13/24: Afternoon sedation. Continue Clozapine 50 mg HS Decrease Depakote to 1000 mg bid from 1250 m 01/14/24 decrease depakote tp 500mg bid due to xs sedation all day and night, with incontinence- continue clozapine 50mg qhs 01/15/24 more alert today! Reason for continued inpatient stay Substantial Risk for: rapid decompensation Time Spent With Patient Time: Total time managing care of this patient today ____ minutes.
[2024-01-18 20:00] VITALS: BP 131/71; PULSE 78; RESP 18; TEMP 36.1; O2SAT 97
[2024-01-18 21:35] LABS: Glucose, Whole Blood 109 mg/dL (60-115)
[2024-01-18] MEDS: Docusate Sodium 100 MG CAPSULE PO (22:07)
[2024-01-18] MEDS: cloZAPine 25 MG TABLET 50 MG PO (22:07)
[2024-01-19 08:00] VITALS: BP 134/79; PULSE 85; RESP 18; O2SAT 97
[2024-01-19 08:25] LABS: Creatinine Clr Calc Pharmacy 225.9; Estimated Glomerular Filt Rate > 60
[2024-01-19] MEDS: Furosemide 40 MG TABLET PO (08:43)
[2024-01-19] MEDS: atenoloL 25 MG TABLET PO (08:43)
[2024-01-19] MEDS: Multivitamin TABLET 1 TAB PO (08:43)
[2024-01-19] MEDS: Apixaban 5 MG TABLET PO ×2 (08:43→21:58)
[2024-01-19] MEDS: metFORMIN HCl ER 500 MG TAB.ER.24H PO (08:43)
[2024-01-19] MEDS: Divalproex Sodium Sprinkles 125 MG CAP.DR.SPR 500 MG PO ×2 (08:44→21:58)
[2024-01-19 08:52] LABS: Glucose, Whole Blood 121 mg/dL (60-115)
[2024-01-19] MEDS: Mineral Oil/Petrolatum,White 106 GM Tube 1 APPL TOPICAL ×2 (10:19→22:06)
[2024-01-19] MEDS: Hydrocortisone 1 % Cream 28.35 GM TUBE 1 APPL TOPICAL ×2 (10:20→22:06)
[2024-01-19] MEDS: metroNIDAZOLE 0.75 % Gel 45 GM TUBE 1 APPL TOPICAL (10:21)
--- NOTE | 2024-01-19 11:57 | P.PNPSI_ITS ---
Subjective Subjective Date of Service: 01/19/24 Reason For Visit: manic aggressive Subjective Notes: Conditional Voluntary Healthcare Proxy: Yes Guardianship: No Medical Problems Affecting Mental Status: No Interim History: Family has informed pt she will discharge next week. Mother visited, purchased pt clothing today which she is pleased with. Per team, pt with vague suicidal statements today. Overall less delusional content, minimal lability. Tolerating Clozapine 50 mg without adverse effects. Medication Compliance: Yes Side effects from medications: No Attending Groups: No Review of Systems Acute medical concerns: No Medical Review of Systems: unchanged Review of Systems Review of Systems Intermittent report of abdominal discomfort this a.m. This afternoon, pt denies issues/symptoms of concern. Yes all other systems are reviewed and are negative Mental Status Exam Mental Status Exam Patient Appearance: Well Grooomed (with staff support) Patient Orientation: Person, Place and Situation Level of Consciousness: Awake Patient Behavior: Dependent, Talkative, Cooperative and Good Eye Contact Mood Description: Calm Affect Description: Calm Patient Cognition Impaired: No Ability to Follow Directions: Fair Speech Pattern: Clear Delusions: Present Thought Process: Intact Thought Content: positive for Flight of Ideas Depressive Symptoms: Sleeping More Than Usual Judgement: Poor Diagnostics Vital Signs (24Hr): Vital Signs - 24 hr 01/18/24 20:00 01/19/24 08:00 Temperature 97.0 F Pulse Rate 78 85 Respiratory Rate 18 18 Blood Pressure 131/71 134/79 Pulse Oximetry 97 97 Oxygen Delivery Method Room Air Room Air BMI result Body Mass Index 60.0 Labs 01/10/24 15:28 01/19/24 08:06 Labs: Laboratory Results - last 48 hr 01/18/24 01/18/24 01/19/24 10:53 21:30 08:06 Creatinine 0.66 Estim Creat Clear Calc 225.9 Estimated GFR > 60 POC Glucose 105 109 01/19/24 08:48 Creatinine Estim Creat Clear Calc Estimated GFR POC Glucose 121 H Imaging Radiology Impressions: ITS Impressions Ankle X-Ray 01/03/24 19:05 IMPRESSION: 1. No radiographic evidence of bone destruction to suggest osteomyelitis. 2. Soft tissue swelling around the ankle. 3. Large posterior calcaneal spur. Ankle X-Ray 01/07/24 15:35 IMPRESSION: Marked soft tissue swelling without evidence of an acute osseous injury. Venous Duplex 01/08/24 10:03 IMPRESSION: No DVT demonstrated in the right lower extremity. This study was presented today 01/09/2024 for interpretation. Prompt priority results supplied at this time to the referring provider as requested by the provider. Medications Medications Current Medications Acetaminophen (Acetaminophen 325 Mg Tablet) 650 mg PO Q6H PRN PRN Reason: Headache/Pain Mild Scale (1-3) Last Admin: 01/08/24 14:12 Dose: 650 mg Al Hydroxide/Mg Hydroxide (Magnesium Hydrox/Alum Hydrox 30 Ml Oral.Susp) 30 ml PO Q6H PRN PRN Reason: Heartburn/Nausea Last Admin: 11/29/23 22:00 Dose: 30 ml Apixaban (Apixaban 5 Mg Tablet) 5 mg PO BID INOCENCIO Last Admin: 01/19/24 08:43 Dose: 5 mg Atenolol (Atenolol 25 Mg Tablet) 25 mg PO DAILY [facility]OC[facility]; Protocol Last Admin: 01/19/24 08:43 Dose: 25 mg Benzocaine (Throat Lozenge, Medicated Lozenge) 1 lozenge MUCOUS MEM Q2H PRN PRN Reason: Sore Throat Benzocaine (Throat Lozenge, Medicated Lozenge) 1 lozenge MUCOUS MEM Q2H PRN PRN Reason: Sore Throat Clozapine (Clozapine 25 Mg Tablet) 75 mg PO BEDTIME INOCENCIO Divalproex Sodium (Divalproex Sodium Sprinkles 125 Mg Darvin.) 500 mg PO BID INOCENCIO Last Admin: 01/19/24 08:44 Dose: 500 mg Docusate Sodium (Docusate Sodium 100 Mg Capsule) 100 mg PO BEDTIME INOCENCIO Last Admin: 01/18/24 22:07 Dose: 100 mg Furosemide (Furosemide 40 Mg Tablet) 40 mg PO DAILY INOCENCIO; Protocol Last Admin: 01/19/24 08:43 Dose: 40 mg Hydrocortisone (Hydrocortisone 1 % Cream 28.35 Gm Tube) 1 appl TOPICAL BID INOCENCIO; Protocol Last Admin: 01/19/24 10:20 Dose: 1 appl Hydroxyzine HCl (Hydroxyzine Hcl 25 Mg Tablet) 25 mg PO Q6H PRN PRN Reason: Anxiety Last Admin: 01/07/24 21:32 Dose: 25 mg Lactic Acid (Ammonium Lactate 12 % Lotion 226 Gm Bottle) 1 appl TOPICAL BID PRN; Protocol PRN Reason: Rash Last Admin: 12/26/23 09:45 Dose: 1 appl Lorazepam (Lorazepam 1 Mg Tablet) 1 mg PO BEDTIME PRN PRN Reason: insomnia,anxiety,agitation Last Admin: 01/09/24 01:52 Dose: 1 mg Lorazepam (Lorazepam 1 Mg Tablet) 1 mg PO Q6H PRN PRN Reason: severe anxiety Magnesium Hydroxide (Milk Of Magnesia 30 Ml Oral.Susp) 30 ml PO DAILY PRN PRN Reason: Constipation Last Admin: 12/18/23 10:35 Dose: 30 ml Metformin HCl (Metformin Hcl Er 500 Mg Tab.Er.24h) 500 mg PO DAILY [facility] Last Admin: 01/19/24 08:43 Dose: 500 mg Metronidazole (Metronidazole 0.75 % Gel 45 Gm Tube) 1 appl TOPICAL DAILY [facility] Last Admin: 01/19/24 10:21 Dose: 1 appl Multi-Ingred Cream/Lotion/Oil/Oint (Mineral Oil/Petrolatum,White 106 Gm Tube) 1 appl TOPICAL BID [facility] Last Admin: 01/19/24 10:19 Dose: 1 appl Multi-Ingred Medicated Throat [place] (Throat [place], Medicated 177 Ml Bottle) 1 spray MUCOUS MEM Q2H PRN PRN Reason: Sore Throat Multivitamins/Vitamin C (Multivitamin Tablet) 1 tab PO DAILY [facility] Last Admin: 01/19/24 08:43 Dose: 1 tab Pt Own (Culturelle (Probiotics 1 Cap)) 1 cap PO DAILY [facility] Last Admin: 01/19/24 08:44 Dose: 1 cap Nystatin (Nystatin Powder 15 Gm Bottle) 1 appl TOPICAL BID PRN; Protocol PRN Reason: Rash Last Admin: 12/25/23 11:07 Dose: 1 appl Olanzapine (Olanzapine 5 Mg Tablet) 5 mg PO TID PRN PRN Reason: agitation Last Admin: 01/07/24 21:32 Dose: 5 mg Allergies Allergies Allergy/AdvReac Type Severity Reaction Status Date / Time kiwi [KIWI] Allergy Mild HIVES Verified 11/21/23 05:49 mold [MOLD EXTRACTS*] Allergy Mild HIVES Verified 11/21/23 05:49 Assessment & Plan Assessment & Plan (1) Schizoaffective disorder, bipolar type: Status: Acute Code(s): F25.0 - Schizoaffective disorder, bipolar type Assessment and Plan: 12/01/23: Continue current tx and plan 12/02/23: Continue current plan and tx Change Chlorpromazine daytime doses to prn. 12/03/23 - seems more labile with mother present - reassuring eval by hospitalist today- they are following closely with us but encouraging and supporting patient with compliance with stockings and leg elevation seem paramount 12/04/23- limited mobility did wear kenzie stockings- but won't wear slippers/shoes- difficulty raising her feet up - ongoing hypersexual content of thought/somatic preoccupation of PCOS- wanting to sign 3d 12/05/23 Patient mostly in her room limited mobility somatic preoccupations patient did sign a 3 day unrealistic expectation regarding outpatient setting 12/08/23 Change Chlorpromazine 100 mg HS to prn Decrease Valproate from 3000 mg daily to 2000 mg daily Sustenna 234 mg IM given today by team. 12/09/23 Continue to monitor for daytime sedation. 12/11/23 Continue treatment 12/12/23 Sx of bacterial vaginosis-antibiotic initiated. 12/14/23: Labs ordered for the a.m. 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 Patient labile episodes of being expansive overwhelmed anxiety times somatic paranoid delusional material did receive Invega injection 1 week ago should be a therapeutic dose unfortunately has. 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 Metronidazole gel QD for BV Cris Carballo's consult much appreciated. 01/01 O2 2L at HS Continue current regime Respiratory therapy consult much appreciated. 12/23 disorganized in speech and behavior; making sexualized comments to staff 12/24 little more calm today; still disorganized; continue current treatment plan 12/26/23: Continue current plan. Urology consult much appreciated. 12/28/23: Clozaril consideration. 12/29/23: Father is in agreement to trial Clozapine. Application submitted to [facility] 12/30/23: Preparing for Clozapine. Begin Depakote decrease by 500 mg daily. Father/HCP reviewing Clozapine [facility] If he is in agreement, will stop Chlorpromazine, obtain EKG and move forward with Clozapine initiation. 12/30: continue current management and treatment plan. 12/31: continue current management and treatment plan. 01/06/24: Continue plan. 01/06: strongly encouraged Invega long-acting injectable. Patient reports he might take this tomorrow. Does endorse right foot swelling. Aware bilateral lower limb swelling has been a chronic issue. There is bilateral redness and some tenderness. No discharge or Increase temperature. That being said right lower limb and foot do appear larger than the left side, with some tenderness. Patient was unsure if she rolled her ankle at 1 point while pacing a lot. Will order ankle x-ray and also non urgent lower limb venous Doppler. After same will consider hospitalist consult. 01/07: accepted invega sustenna today. Doppler and xray results pending 01/08: Doppler/XRay results are negative. Continue current plan of care and regime. 01/09: WBC 7.9, ANC 4.3 Continue Clozapine trial. 01/12/24: Continue Clozapine 50 mg HS 01/13/24: Afternoon sedation. Continue Clozapine 50 mg HS Decrease Depakote to 1000 mg bid from 1250 mg bid 01/15/24 lowered her dpeakote down to 500mg bid- seems more awake tonight slept all night and still had incontinence and couldn't make it to bathroom this am- 01/16/24 No changes today. 01/18/24 Continue current regime/plan. Tentative discharge to home next week. 01/19/24 Increase Clozapine to 75 mg HS (2) Venous stasis: Status: Acute Code(s): I87.8 - Other specified disorders of veins Assessment and Plan: Hosp note 12/31/23: Pt seen at bedside at RN request for patient reassurance regarding BLE edema. Pt has had multiple evaluation for chronic ble edema with chronic venous stasis dermatitis. She has been complaint with compression stockings and improved hygeine overall. Today, appearance of BLE is actually markedly improved. There is still faint erythema of the distal aspect of the BLE and the posterior RLE but overall much improved. No significant warmth. Superfical lesion dorsum R foot well healing. Noevidence of infection. Continue with conservative measures as previously discussed (3) Chronic cellulitis: Status: Acute Code(s): L03.90 - Cellulitis, unspecified Plan 12/01/23: Continue current tx and plan 12/02/23: Continue current plan and tx Change Chlorpromazine daytime doses to prn. 12/03/23 - seems more labile with mother present - reassuring eval by hospitalist today- they are following closely with us but encouraging and supporting patient with compliance with stockings and leg elevation seem paramount 12/04/23- limited mobility did wear kenzie stockings- but won't wear slippers/shoes- difficulty raising her feet up - ongoing hypersexual content of thought/somatic preoccupation of PCOS- wanting to sign 3d 12/05/23 Patient mostly in her room limited mobility somatic preoccupations patient did sign a 3 day unrealistic expectation regarding outpatient setting 12/08/23 Change Chlorpromazine 100 mg HS to prn Decrease Valproate from 3000 mg daily to 2000 mg daily Sustenna 234 mg IM given today by team. 12/09/23 Continue to monitor for daytime sedation. 12/11/23 Continue treatment 12/12/23 Sx of bacterial vaginosis-antibiotic initiated. 12/14/23: Labs ordered for the a.m. 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 Patient labile episodes of being expansive overwhelmed anxiety times somatic paranoid delusional material did receive Invega injection 1 week ago should be a therapeutic dose unfortunately has. 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 Metronidazole gel QD for BV Cris Carballo's consult much appreciated. 4/29 O2 2L at HS Continue current regime Respiratory therapy consult much appreciated. 12/23 disorganized in speech and behavior; making sexualized comments to staff 12/24 little more calm today; still disorganized; continue current treatment plan 12/26/23: Continue current plan. Urology consult much appreciated. 12/28/23: Clozaril consideration. 12/29/23: Father is in agreement to trial Clozapine. Application submitted to [facility] 12/30/23: Preparing for Clozapine. Begin Depakote decrease by 500 mg daily. Father/HCP reviewing Clozapine [facility] If he is in agreement, will stop Chlorpromazine, obtain EKG and move forward with Clozapine initiation. 12/30: continue current management and treatment plan. 12/31: continue current management and treatment plan. 01/06/24: Continue plan.01/06: strongly encouraged Invega long-acting injectable. Patient reports he might take this tomorrow. Does endorse right foot swelling. Aware bilateral lower limb swelling has been a chronic issue. There is bilateral redness and some tenderness. No discharge or Increase temperature. That being said right lower limb and foot do appear larger than the left side, with some tenderness. Patient was unsure if she rolled her ankle at 1 point while pacing a lot. Will order ankle x-ray and also non urgent lower limb venous Doppler. After same will consider hospitalist consult. 01/07: accepted invega sustenna today. Doppler and xray results pending 01/08: Doppler/XRay results are negative. Continue current plan of care and regime. 01/09: WBC 7.9, ANC 4.3 Continue Clozapine trial. 01/12/24: Continue Clozapine 50 mg HS 01/13/24: Afternoon sedation. Continue Clozapine 50 mg HS Decrease Depakote to 1000 mg bid from 1250 m 01/14/24 decrease depakote tp 500mg bid due to xs sedation all day and night, with incontinence- continue clozapine 50mg qhs 01/15/24 more alert today! Reason for continued inpatient stay Substantial Risk for: rapid decompensation and med/psych decompensation Time Spent With Patient Time: Total time managing care of this patient today ____ minutes.
[2024-01-19 20:00] VITALS: BP 130/60; PULSE 78; RESP 18; TEMP 36.2; O2SAT 99
[2024-01-19 21:57] LABS: Glucose, Whole Blood 143 mg/dL (60-115)
[2024-01-19] MEDS: cloZAPine 25 MG TABLET 75 MG PO (21:57)
[2024-01-20 08:00] VITALS: BP 142/94; PULSE 109; RESP 18; TEMP 36.2; O2SAT 96
[2024-01-20 08:22] LABS: Neut%MD 49.1 %; Neutrophils Absolute Auto 4.4 x10*3/uL (2.0-8.3)
[2024-01-20 08:25] LABS: Glucose, Whole Blood 108 mg/dL (60-115)
--- NOTE | 2024-01-20 10:48 | P.PNPSI_ITS ---
Subjective Subjective Date of Service: 01/20/24 Reason For Visit: manic aggressive Subjective Notes: Conditional Voluntary Healthcare Proxy: Yes Guardianship: No Medical Problems Affecting Mental Status: No Interim History: Pt slept late. Reports she is feeling well. Message from pt's father who called her right after she awoke for the day. He reports concern about pt sleeping, this a.m. she drifted from the topic and told him she would not return home if he were planning to murder her and not coming home to be threatened. Father wonders if meds should be decreased as a result. Medication Compliance: Yes Side effects from medications: Yes (sedation) Attending Groups: No Review of Systems Acute medical concerns: No Medical Review of Systems: unchanged Review of Systems Review of Systems Denies today. Denies abdominal pain today Reports she is not constipated, reports bowel mvt on 01/18. Mental Status Exam Mental Status Exam Patient Appearance: Well Grooomed (with staff support) Patient Orientation: Person, Place and Situation Level of Consciousness: Awake Patient Behavior: Dependent, Talkative, Cooperative and Good Eye Contact Mood Description: Calm Affect Description: Calm Patient Cognition Impaired: No Ability to Follow Directions: Fair Speech Pattern: Clear Delusions: Present Thought Process: Intact Thought Content: positive for Flight of Ideas Depressive Symptoms: Sleeping More Than Usual Judgement: Poor Diagnostics Vital Signs (24Hr): Vital Signs - 24 hr 01/19/24 20:00 Temperature 97.1 F Pulse Rate 78 Respiratory Rate 18 Blood Pressure 130/60 Pulse Oximetry 99 Oxygen Delivery Method Room Air BMI result Body Mass Index 60.0 Labs 01/10/24 15:28 01/19/24 08:06 Labs: Laboratory Results - last 48 hr 01/18/24 01/18/24 01/19/24 10:53 21:30 08:06 Absolute Neuts (auto) Creatinine 0.66 Estim Creat Clear Calc 225.9 Estimated GFR > 60 POC Glucose 105 109 01/19/24 01/19/24 01/20/24 08:48 21:53 08:08 Absolute Neuts (auto) 4.4 Creatinine Estim Creat Clear Calc Estimated GFR POC Glucose 121 H 143 H 01/20/24 08:20 Absolute Neuts (auto) Creatinine Estim Creat Clear Calc Estimated GFR POC Glucose 108 Imaging Radiology Impressions: ITS Impressions Ankle X-Ray 01/03/24 19:05 IMPRESSION: 1. No radiographic evidence of bone destruction to suggest osteomyelitis. 2. Soft tissue swelling around the ankle. 3. Large posterior calcaneal spur. Ankle X-Ray 01/07/24 15:35 IMPRESSION: Marked soft tissue swelling without evidence of an acute osseous injury. Venous Duplex 01/08/24 10:03 IMPRESSION: No DVT demonstrated in the right lower extremity. This study was presented today 01/09/2024 for interpretation. Prompt priority results supplied at this time to the referring provider as requested by the provider. Medications Medications Current Medications Acetaminophen (Acetaminophen 325 Mg Tablet) 650 mg PO Q6H PRN PRN Reason: Headache/Pain Mild Scale (1-3) Last Admin: 01/08/24 14:12 Dose: 650 mg Al Hydroxide/Mg Hydroxide (Magnesium Hydrox/Alum Hydrox 30 Ml Oral.Susp) 30 ml PO Q6H PRN PRN Reason: Heartburn/Nausea Last Admin: 11/29/23 22:00 Dose: 30 ml Apixaban (Apixaban 5 Mg Tablet) 5 mg PO BID [facility] Last Admin: 01/19/24 21:58 Dose: 5 mg Atenolol (Atenolol 25 Mg Tablet) 25 mg PO DAILY [facility]; Protocol Last Admin: 01/19/24 08:43 Dose: 25 mg Benzocaine (Throat Lozenge, Medicated Lozenge) 1 lozenge MUCOUS MEM Q2H PRN PRN Reason: Sore Throat Benzocaine (Throat Lozenge, Medicated Lozenge) 1 lozenge MUCOUS MEM Q2H PRN PRN Reason: Sore Throat Clozapine (Clozapine 25 Mg Tablet) 75 mg PO BEDTIME [facility] Last Admin: 01/19/24 21:57 Dose: 75 mg Divalproex Sodium (Divalproex Sodium Sprinkles 125 Mg ) 500 mg PO BID [facility] Last Admin: 01/19/24 21:58 Dose: 500 mg Docusate Sodium (Docusate Sodium 100 Mg Capsule) 100 mg PO BEDTIME [facility] Last Admin: 01/19/24 22:07 Dose: Not Given Furosemide (Furosemide 40 Mg Tablet) 40 mg PO DAILY [facility]; Protocol Last Admin: 01/19/24 08:43 Dose: 40 mg Hydrocortisone (Hydrocortisone 1 % Cream 28.35 Gm Tube) 1 appl TOPICAL BID [facility]; Protocol Last Admin: 01/19/24 22:06 Dose: 1 appl Hydroxyzine HCl (Hydroxyzine Hcl 25 Mg Tablet) 25 mg PO Q6H PRN PRN Reason: Anxiety Last Admin: 01/07/24 21:32 Dose: 25 mg Lactic Acid (Ammonium Lactate 12 % Lotion 226 Gm Bottle) 1 appl TOPICAL BID PRN; Protocol PRN Reason: Rash Last Admin: 12/26/23 09:45 Dose: 1 appl Lorazepam (Lorazepam 1 Mg Tablet) 1 mg PO BEDTIME PRN PRN Reason: insomnia,anxiety,agitation Last Admin: 01/09/24 01:52 Dose: 1 mg Lorazepam (Lorazepam 1 Mg Tablet) 1 mg PO Q6H PRN PRN Reason: severe anxiety Magnesium Hydroxide (Milk Of Magnesia 30 Ml Oral.Susp) 30 ml PO DAILY PRN PRN Reason: Constipation Last Admin: 12/18/23 10:35 Dose: 30 ml Metformin HCl (Metformin Hcl Er 500 Mg Tab.Er.24h) 500 mg PO DAILY [facility] Last Admin: 01/19/24 08:43 Dose: 500 mg Metronidazole (Metronidazole 0.75 % Gel 45 Gm Tube) 1 appl TOPICAL DAILY [facility] Last Admin: 01/19/24 10:21 Dose: 1 appl Multi-Ingred Cream/Lotion/Oil/Oint (Mineral Oil/Petrolatum,White 106 Gm Tube) 1 appl TOPICAL BID [facility] Last Admin: 01/19/24 22:06 Dose: 1 appl Multi-Ingred Medicated Throat Chaplin (Throat Chaplin, Medicated 177 Ml Bottle) 1 spray MUCOUS MEM Q2H PRN PRN Reason: Sore Throat Multivitamins/Vitamin C (Multivitamin Tablet) 1 tab PO DAILY [facility] Last Admin: 01/19/24 08:43 Dose: 1 tab Pt Own (Culturelle (Probiotics 1 Cap)) 1 cap PO DAILY [facility] Last Admin: 01/19/24 08:44 Dose: 1 cap Nystatin (Nystatin Powder 15 Gm Bottle) 1 appl TOPICAL BID PRN; Protocol PRN Reason: Rash Last Admin: 12/25/23 11:07 Dose: 1 appl Olanzapine (Olanzapine 5 Mg Tablet) 5 mg PO TID PRN PRN Reason: agitation Last Admin: 01/07/24 21:32 Dose: 5 mg Allergies Allergies Allergy/AdvReac Type Severity Reaction Status Date / Time kiwi [KIWI] Allergy Mild HIVES Verified 11/21/23 05:49 mold [MOLD EXTRACTS*] Allergy Mild HIVES Verified 11/21/23 05:49 Assessment & Plan Assessment & Plan (1) Schizoaffective disorder, bipolar type: Status: Acute Code(s): F25.0 - Schizoaffective disorder, bipolar type Assessment and Plan: 12/01/23: Continue current tx and plan 12/02/23: Continue current plan and tx Change Chlorpromazine daytime doses to prn. 12/03/23 - seems more labile with mother present - reassuring eval by hospitalist today- they are following closely with us but encouraging and supporting patient with compliance with stockings and leg elevation seem paramount 12/04/23- limited mobility did wear kenzie stockings- but won't wear slippers/shoes- difficulty raising her feet up - ongoing hypersexual content of thought/somatic preoccupation of PCOS- wanting to sign 3d 12/05/23 Patient mostly in her room limited mobility somatic preoccupations patient did sign a 3 day unrealistic expectation regarding outpatient setting 12/08/23 Change Chlorpromazine 100 mg HS to prn Decrease Valproate from 3000 mg daily to 2000 mg daily Sustenna 234 mg IM given today by team. 12/09/23 Continue to monitor for daytime sedation. 12/11/23 Continue treatment 12/12/23 Sx of bacterial vaginosis-antibiotic initiated. 12/14/23: Labs ordered for the a.m. 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 Patient labile episodes of being expansive overwhelmed anxiety times somatic paranoid delusional material did receive Invega injection 1 week ago should be a therapeutic dose unfortunately has. 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 Metronidazole gel QD for BV Cris Carballo's consult much appreciated. 01/01 O2 2L at HS Continue current regime Respiratory therapy consult much appreciated. 12/23 disorganized in speech and behavior; making sexualized comments to staff 12/24 little more calm today; still disorganized; continue current treatment plan 12/26/23: Continue current plan. Urology consult much appreciated. 12/28/23: Clozaril consideration. 12/29/23: Father is in agreement to trial Clozapine. Application submitted to [facility] 12/30/23: Preparing for Clozapine. Begin Depakote decrease by 500 mg daily. Father/HCP reviewing Clozapine [facility] If he is in agreement, will stop Chlorpromazine, obtain EKG and move forward with Clozapine initiation. 12/30: continue current management and treatment plan. 12/31: continue current management and treatment plan. 01/06/24: Continue plan. 01/06: strongly encouraged Invega long-acting injectable. Patient reports he might take this tomorrow. Does endorse right foot swelling. Aware bilateral lower limb swelling has been a chronic issue. There is bilateral redness and some tenderness. No discharge or Increase temperature. That being said right lower limb and foot do appear larger than the left side, with some tenderness. Patient was unsure if she rolled her ankle at 1 point while pacing a lot. Will order ankle x-ray and also non urgent lower limb venous Doppler. After same will consider hospitalist consult. 01/07: accepted invega sustenna today. Doppler and xray results pending 01/08: Doppler/XRay results are negative. Continue current plan of care and regime. 01/09: WBC 7.9, ANC 4.3 Continue Clozapine trial. 01/12/24: Continue Clozapine 50 mg HS 01/13/24: Afternoon sedation. Continue Clozapine 50 mg HS Decrease Depakote to 1000 mg bid from 1250 mg bid 01/15/24 lowered her dpeakote down to 500mg bid- seems more awake tonight slept all night and still had incontinence and couldn't make it to bathroom this am- 01/16/24 No changes today. 01/18/24 Continue current regime/plan. Tentative discharge to home next week. 01/20/24 Continue current regime/plan. (2) Venous stasis: Status: Acute Code(s): I87.8 - Other specified disorders of veins Assessment and Plan: Hosp note 12/31/23: Pt seen at bedside at RN request for patient reassurance regarding BLE edema. Pt has had multiple evaluation for chronic ble edema with chronic venous stasis dermatitis. She has been complaint with compression stockings and improved hygeine overall. Today, appearance of BLE is actually markedly improved. There is still faint erythema of the distal aspect of the BLE and the posterior RLE but overall much improved. No significant warmth. Superfical lesion dorsum R foot well healing. Noevidence of infection. Continue with conservative measures as previously discussed (3) Chronic cellulitis: Status: Acute Code(s): L03.90 - Cellulitis, unspecified Plan 12/01/23: Continue current tx and plan 12/02/23: Continue current plan and tx Change Chlorpromazine daytime doses to prn. 12/03/23 - seems more labile with mother present - reassuring eval by hospitalist today- they are following closely with us but encouraging and supporting patient with compliance with stockings and leg elevation seem paramount 12/04/23- limited mobility did wear kenzie stockings- but won't wear slippers/shoes- difficulty raising her feet up - ongoing hypersexual content of thought/somatic preoccupation of PCOS- wanting to sign 3d 12/05/23 Patient mostly in her room limited mobility somatic preoccupations patient did sign a 3 day unrealistic expectation regarding outpatient setting 12/08/23 Change Chlorpromazine 100 mg HS to prn Decrease Valproate from 3000 mg daily to 2000 mg daily Sustenna 234 mg IM given today by team. 12/09/23 Continue to monitor for daytime sedation. 12/11/23 Continue treatment 12/12/23 Sx of bacterial vaginosis-antibiotic initiated. 12/14/23: Labs ordered for the a.m. 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 Patient labile episodes of being expansive overwhelmed anxiety times somatic paranoid delusional material did receive Invega injection 1 week ago should be a therapeutic dose unfortunately has. 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 Metronidazole gel QD for BV Cris Carballo's consult much appreciated. 01/01 O2 2L at HS Continue current regime Respiratory therapy consult much appreciated. 12/23 disorganized in speech and behavior; making sexualized comments to staff 12/24 little more calm today; still disorganized; continue current treatment plan 12/26/23: Continue current plan. Urology consult much appreciated. 12/28/23: Clozaril consideration. 12/29/23: Father is in agreement to trial Clozapine. Application submitted to [facility] 12/30/23: Preparing for Clozapine. Begin Depakote decrease by 500 mg daily. Father/HCP reviewing Clozapine [facility] If he is in agreement, will stop Chlorpromazine, obtain EKG and move forward with Clozapine initiation. 12/30: continue current management and treatment plan. 12/31: continue current management and treatment plan. 01/06/24: Continue plan.01/06: strongly encouraged Invega long-acting injectable. Patient reports he might take this tomorrow. Does endorse right foot swelling. Aware bilateral lower limb swelling has been a chronic issue. There is bilateral redness and some tenderness. No discharge or Increase temperature. That being said right lower limb and foot do appear larger than the left side, with some tenderness. Patient was unsure if she rolled her ankle at 1 point while pacing a lot. Will order ankle x-ray and also non urgent lower limb venous Doppler. After same will consider hospitalist consult. 01/07: accepted invega sustenna today. Doppler and xray results pending 01/08: Doppler/XRay results are negative. Continue current plan of care and regime. 01/09: WBC 7.9, ANC 4.3 Continue Clozapine trial. 01/12/24: Continue Clozapine 50 mg HS 01/13/24: Afternoon sedation. Continue Clozapine 50 mg HS Decrease Depakote to 1000 mg bid from 1250 m 01/14/24 decrease depakote tp 500mg bid due to xs sedation all day and night, with incontinence- continue clozapine 50mg qhs 01/15/24 more alert today! Informed Consent: further education needed Reason for continued inpatient stay Substantial Risk for: rapid decompensation and med/psych decompensation Time Spent With Patient Time: Total time managing care of this patient today ____ minutes.
[2024-01-20] MEDS: Apixaban 5 MG TABLET PO ×2 (10:55→22:05)
[2024-01-20] MEDS: Furosemide 40 MG TABLET PO (10:55)
[2024-01-20] MEDS: atenoloL 25 MG TABLET PO (10:55)
[2024-01-20] MEDS: metFORMIN HCl ER 500 MG TAB.ER.24H PO (10:56)
[2024-01-20] MEDS: Multivitamin TABLET 1 TAB PO (10:56)
[2024-01-20] MEDS: Divalproex Sodium Sprinkles 125 MG CAP.DR.SPR 500 MG PO ×2 (10:56→22:04)
[2024-01-20] MEDS: Hydrocortisone 1 % Cream 28.35 GM TUBE 1 APPL TOPICAL (11:02)
[2024-01-20] MEDS: metroNIDAZOLE 0.75 % Gel 45 GM TUBE 1 APPL TOPICAL (11:02)
[2024-01-20] MEDS: Mineral Oil/Petrolatum,White 106 GM Tube 1 APPL TOPICAL (11:03)
[2024-01-20 20:00] VITALS: BP 120/90; PULSE 90; RESP 18; TEMP 36.9; O2SAT 96
[2024-01-20 20:12] LABS: Glucose, Whole Blood 149 mg/dL (60-115)
[2024-01-20] MEDS: cloZAPine 25 MG TABLET 75 MG PO (22:04)
[2024-01-20] MEDS: Docusate Sodium 100 MG CAPSULE PO (22:05)
[2024-01-21 11:16] VITALS: BP 142/96; PULSE 80; RESP 18; TEMP 36.6; O2SAT 100
[2024-01-21 11:17] LABS: Glucose, Whole Blood 117 mg/dL (60-115)
[2024-01-21 11:21] VITALS: BP 142/96; PULSE 80
[2024-01-21] MEDS: atenoloL 25 MG TABLET PO (11:21)
[2024-01-21] MEDS: Divalproex Sodium Sprinkles 125 MG CAP.DR.SPR 500 MG PO ×2 (11:21→20:48)
[2024-01-21] MEDS: Apixaban 5 MG TABLET PO ×2 (11:21→20:49)
[2024-01-21] MEDS: Multivitamin TABLET 1 TAB PO (11:21)
[2024-01-21 11:22] VITALS: BP 142/96
[2024-01-21] MEDS: Furosemide 40 MG TABLET PO (11:22)
[2024-01-21] MEDS: metFORMIN HCl ER 500 MG TAB.ER.24H PO (11:22)
[2024-01-21] MEDS: Mineral Oil/Petrolatum,White 106 GM Tube 1 APPL TOPICAL (13:53)
[2024-01-21] MEDS: metroNIDAZOLE 0.75 % Gel 45 GM TUBE 1 APPL TOPICAL (13:55)
[2024-01-21] MEDS: Hydrocortisone 1 % Cream 28.35 GM TUBE 1 APPL TOPICAL (13:55)
[2024-01-21] MEDS: LORazepam 1 MG TABLET PO (17:07)
[2024-01-21 20:00] VITALS: BP 116/60; PULSE 94; RESP 18; TEMP 36.4; O2SAT 95
[2024-01-21] MEDS: cloZAPine 100 MG TABLET PO (20:48)
[2024-01-21] MEDS: Docusate Sodium 100 MG CAPSULE PO (20:48)
[2024-01-21 22:39] LABS: Glucose, Whole Blood 176 mg/dL (60-115)
[2024-01-22] MEDS: Mineral Oil/Petrolatum,White 106 GM Tube 1 APPL TOPICAL (02:12)
[2024-01-22] MEDS: Hydrocortisone 1 % Cream 28.35 GM TUBE 1 APPL TOPICAL (02:12)
[2024-01-22 10:00] VITALS: BP 127/96; PULSE 97; RESP 18; TEMP 36.4; O2SAT 98
--- NOTE | 2024-01-22 10:02 | P.PNPSI_ITS ---
Subjective Subjective Date of Service: 01/21/24 Reason For Visit: manic aggressive Interim History: Late entry note for patient seen on 01/20; discussed with team; reviewed chart Patient with brief moments of clear thinking however these are short-lived and she quickly returned to disorganized speech and behavior; mostly pleasant and friendly. However later on she demonstrated some increased manic behavior, called 911... Consulted with primary team who encouraged increase of clozapine Mental Status Exam Mental Status Exam Patient Appearance: Well Grooomed (with staff support) Patient Orientation: Person, Place and Situation Level of Consciousness: Awake Patient Behavior: Dependent, Talkative, Cooperative, Hypersexual and Good Eye Contact Mood Description: Calm (But can be exuberant) Affect Description: Calm Patient Cognition Impaired: No Ability to Follow Directions: Fair Speech Pattern: Clear Delusions: Present Thought Process: Intact Thought Content: positive for Flight of Ideas Depressive Symptoms: Sleeping More Than Usual Judgement: Poor Judgement and Insight: Impaired Diagnostics Vital Signs (24Hr): Vital Signs - 24 hr 01/21/24 11:16 01/21/24 11:21 01/21/24 11:22 Temperature 97.9 F Pulse Rate 80 80 Respiratory Rate 18 Blood Pressure 142/96 H 142/96 H 142/96 H Pulse Oximetry 100 Oxygen Delivery Method Room Air 01/21/24 20:00 Temperature 97.5 F Pulse Rate 94 Respiratory Rate 18 Blood Pressure 116/60 Pulse Oximetry 95 Oxygen Delivery Method Room Air BMI result Body Mass Index 60.0 Labs 01/10/24 15:28 01/19/24 08:06 Labs: Laboratory Results - last 48 hr 01/20/24 01/21/24 01/21/24 20:08 11:12 22:34 POC Glucose 149 H 117 H 176 H Imaging Radiology Impressions: ITS Impressions Ankle X-Ray 01/03/24 19:05 IMPRESSION: 1. No radiographic evidence of bone destruction to suggest osteomyelitis. 2. Soft tissue swelling around the ankle. 3. Large posterior calcaneal spur. Ankle X-Ray 01/07/24 15:35 IMPRESSION: Marked soft tissue swelling without evidence of an acute osseous injury. Venous Duplex 01/08/24 10:03 IMPRESSION: No DVT demonstrated in the right lower extremity. This study was presented today 01/09/2024 for interpretation. Prompt priority results supplied at this time to the referring provider as requested by the provider. Medications Medications Current Medications Acetaminophen (Acetaminophen 325 Mg Tablet) 650 mg PO Q6H PRN PRN Reason: Headache/Pain Mild Scale (1-3) Last Admin: 01/08/24 14:12 Dose: 650 mg Al Hydroxide/Mg Hydroxide (Magnesium Hydrox/Alum Hydrox 30 Ml Oral.Susp) 30 ml PO Q6H PRN PRN Reason: Heartburn/Nausea Last Admin: 11/29/23 22:00 Dose: 30 ml Apixaban (Apixaban 5 Mg Tablet) 5 mg PO BID INOCENCIO Last Admin: 01/21/24 20:49 Dose: 5 mg Atenolol (Atenolol 25 Mg Tablet) 25 mg PO DAILY INOCENCIO; Protocol Last Admin: 01/21/24 11:21 Dose: 25 mg Benzocaine (Throat Lozenge, Medicated Lozenge) 1 lozenge MUCOUS MEM Q2H PRN PRN Reason: Sore Throat Benzocaine (Throat Lozenge, Medicated Lozenge) 1 lozenge MUCOUS MEM Q2H PRN PRN Reason: Sore Throat Clozapine (Clozapine 100 Mg Tablet) 100 mg PO BEDTIME INOCENCIO Last Admin: 01/21/24 20:48 Dose: 100 mg Divalproex Sodium (Divalproex Sodium Sprinkles 125 Mg Cap.DrJcSpr) 500 mg PO BID INOCENCIO Last Admin: 01/21/24 20:48 Dose: 500 mg Docusate Sodium (Docusate Sodium 100 Mg Capsule) 100 mg PO BEDTIME INOCENCIO Last Admin: 01/21/24 20:48 Dose: 100 mg Furosemide (Furosemide 40 Mg Tablet) 40 mg PO DAILY INOCENCIO; Protocol Last Admin: 01/21/24 11:22 Dose: 40 mg Hydrocortisone (Hydrocortisone 1 % Cream 28.35 Gm Tube) 1 appl TOPICAL BID INOCENCIO; Protocol Last Admin: 01/22/24 02:12 Dose: 1 appl Hydroxyzine HCl (Hydroxyzine Hcl 25 Mg Tablet) 25 mg PO Q6H PRN PRN Reason: Anxiety Last Admin: 01/07/24 21:32 Dose: 25 mg Lactic Acid (Ammonium Lactate 12 % Lotion 226 Gm Bottle) 1 appl TOPICAL BID PRN; Protocol PRN Reason: Rash Last Admin: 12/26/23 09:45 Dose: 1 appl Lorazepam (Lorazepam 1 Mg Tablet) 1 mg PO BEDTIME PRN PRN Reason: insomnia,anxiety,agitation Last Admin: 01/09/24 01:52 Dose: 1 mg Lorazepam (Lorazepam 1 Mg Tablet) 1 mg PO Q6H PRN PRN Reason: severe anxiety Last Admin: 01/21/24 17:07 Dose: 1 mg Magnesium Hydroxide (Milk Of Magnesia 30 Ml Oral.Susp) 30 ml PO DAILY PRN PRN Reason: Constipation Last Admin: 12/18/23 10:35 Dose: 30 ml Metformin HCl (Metformin Hcl Er 500 Mg Tab.Er.24h) 500 mg PO DAILY [facility] Last Admin: 01/21/24 11:22 Dose: 500 mg Metronidazole (Metronidazole 0.75 % Gel 45 Gm Tube) 1 appl TOPICAL DAILY [facility] Last Admin: 01/21/24 13:55 Dose: 1 appl Multi-Ingred Cream/Lotion/Oil/Oint (Mineral Oil/Petrolatum,White 106 Gm Tube) 1 appl TOPICAL BID [facility] Last Admin: 01/22/24 02:12 Dose: 1 appl Multi-Ingred Medicated Throat [place] (Throat [place], Medicated 177 Ml Bottle) 1 spray MUCOUS MEM Q2H PRN PRN Reason: Sore Throat Multivitamins/Vitamin C (Multivitamin Tablet) 1 tab PO DAILY [facility] Last Admin: 01/21/24 11:21 Dose: 1 tab Pt Own (Culturelle (Probiotics 1 Cap)) 1 cap PO DAILY [facility] Last Admin: 01/21/24 10:06 Dose: Not Given Nystatin (Nystatin Powder 15 Gm Bottle) 1 appl TOPICAL BID PRN; Protocol PRN Reason: Rash Last Admin: 12/25/23 11:07 Dose: 1 appl Olanzapine (Olanzapine 5 Mg Tablet) 5 mg PO TID PRN PRN Reason: agitation Last Admin: 01/07/24 21:32 Dose: 5 mg Allergies Allergies Allergy/AdvReac Type Severity Reaction Status Date / Time kiwi [KIWI] Allergy Mild HIVES Verified 11/21/23 05:49 mold [MOLD EXTRACTS*] Allergy Mild HIVES Verified 11/21/23 05:49 Assessment & Plan Assessment & Plan (1) Schizoaffective disorder, bipolar type: Status: Acute Code(s): F25.0 - Schizoaffective disorder, bipolar type (2) Venous stasis: Status: Acute Code(s): I87.8 - Other specified disorders of veins Assessment and Plan: Hosp note 12/31/23: Pt seen at bedside at RN request for patient reassurance regarding BLE edema. Pt has had multiple evaluation for chronic ble edema with chronic venous stasis dermatitis. She has been complaint with compression stockings and improved hygeine overall. Today, appearance of BLE is actually markedly improved. There is still faint erythema of the distal aspect of the BLE and the posterior RLE but overall much improved. No significant warmth. Superfical lesion dorsum R foot well healing. Noevidence of infection. Continue with conservative measures as previously discussed (3) Chronic cellulitis: Status: Acute Code(s): L03.90 - Cellulitis, unspecified Plan 12/01/23: Continue current tx and plan 12/02/23: Continue current plan and tx Change Chlorpromazine daytime doses to prn. 12/03/23 - seems more labile with mother present - reassuring eval by hospitalist today- they are following closely with us but encouraging and supporting patient with compliance with stockings and leg elevation seem paramount 12/04/23- limited mobility did wear kenzie stockings- but won't wear slippers/shoes- difficulty raising her feet up - ongoing hypersexual content of thought/somatic preoccupation of PCOS- wanting to sign 3d 12/05/23 Patient mostly in her room limited mobility somatic preoccupations patient did sign a 3 day unrealistic expectation regarding outpatient setting 12/08/23 Change Chlorpromazine 100 mg HS to prn Decrease Valproate from 3000 mg daily to 2000 mg daily Sustenna 234 mg IM given today by team. 12/09/23 Continue to monitor for daytime sedation. 12/11/23 Continue treatment 12/12/23 Sx of bacterial vaginosis-antibiotic initiated. 12/14/23: Labs ordered for the a.m. 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 Patient labile episodes of being expansive overwhelmed anxiety times somatic paranoid delusional material did receive Invega injection 1 week ago should be a therapeutic dose unfortunately has. 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 Metronidazole gel QD for BV Cris Carballo's consult much appreciated. 01/01 O2 2L at HS Continue current regime Respiratory therapy consult much appreciated. 12/23 disorganized in speech and behavior; making sexualized comments to staff 12/24 little more calm today; still disorganized; continue current treatment plan 12/26/23: Continue current plan. Urology consult much appreciated. 12/28/23: Clozaril consideration. 12/29/23: Father is in agreement to trial Clozapine. Application submitted to [facility] 12/30/23: Preparing for Clozapine. Begin Depakote decrease by 500 mg daily. Father/HCP reviewing Clozapine [facility] If he is in agreement, will stop Chlorpromazine, obtain EKG and move forward with Clozapine initiation. 12/30: continue current management and treatment plan. 12/31: continue current management and treatment plan. 01/06/24: Continue plan.01/06: strongly encouraged Invega long-acting injectable. Patient reports he might take this tomorrow. Does endorse right foot swelling. Aware bilateral lower limb swelling has been a chronic issue. There is bilateral redness and some tenderness. No discharge or Increase temperature. That being said right lower limb and foot do appear larger than the left side, with some tenderness. Patient was unsure if she rolled her ankle at 1 point while pacing a lot. Will order ankle x-ray and also non urgent lower limb venous Doppler. After same will consider hospitalist consult. 01/07: accepted invega sustenna today. Doppler and xray results pending 01/08: Doppler/XRay results are negative. Continue current plan of care and regime. 01/09: WBC 7.9, ANC 4.3 Continue Clozapine trial. 01/12/24: Continue Clozapine 50 mg HS 01/13/24: Afternoon sedation. Continue Clozapine 50 mg HS Decrease Depakote to 1000 mg bid from 1250 m 01/14/24 decrease depakote tp 500mg bid due to xs sedation all day and night, with incontinence- continue clozapine 50mg qhs 01/15/24 more alert today; lowered her dpeakote down to 500mg bid- seems more awake tonight slept all night and still had incontinence and couldn't make it to bathroom this am- 01/16/24 No changes today. 01/18/24 Continue current regime/plan. Tentative discharge to home next week. 01/20/24 Continue current regime/plan. 01/20 increase clozapine 100 mg Patient educated on: diagnosis Informed Consent: understands, does not understand and further education needed Reason for continued inpatient stay Substantial Risk for: inability to function Time Spent With Patient Time: Total time managing care of this patient today ____ minutes.
--- NOTE | 2024-01-22 10:07 | HO.PSYCHPN ---
Subjective Subjective Date of Service: 01/22/24 Reason For Visit: manic aggressive Interim History: Met with patient; discussed with team Patient woke up and on approach said my water broke however she then said she urinated in the bed. Patient smiling and playful in a friendly, disorganized way. Not really talking about anything in an organized way. Mental Status Exam Mental Status Exam Patient Appearance: Well Grooomed (with staff support) Patient Orientation: Person, Place and Situation (To some degree) Level of Consciousness: Awake Patient Behavior: Dependent, Talkative, Cooperative, Hypersexual and Good Eye Contact Mood Description: Calm (But can be exuberant) Affect Description: Calm Patient Cognition Impaired: No Ability to Follow Directions: Fair Speech Pattern: Clear Delusions: Present Thought Process: Intact Thought Content: positive for Flight of Ideas Depressive Symptoms: Sleeping More Than Usual Judgement: Poor Judgement and Insight: Impaired Diagnostics Vital Signs (24Hr): Vital Signs - 24 hr 01/21/24 11:16 01/21/24 11:21 01/21/24 11:22 Temperature 97.9 F Pulse Rate 80 80 Respiratory Rate 18 Blood Pressure 142/96 H 142/96 H 142/96 H Pulse Oximetry 100 Oxygen Delivery Method Room Air 01/21/24 20:00 Temperature 97.5 F Pulse Rate 94 Respiratory Rate 18 Blood Pressure 116/60 Pulse Oximetry 95 Oxygen Delivery Method Room Air BMI result Body Mass Index 60.0 Labs 01/10/24 15:28 01/19/24 08:06 Labs: Laboratory Results - last 48 hr 01/20/24 01/21/24 01/21/24 20:08 11:12 22:34 POC Glucose 149 H 117 H 176 H Imaging Radiology Impressions: ITS Impressions Ankle X-Ray 01/03/24 19:05 IMPRESSION: 1. No radiographic evidence of bone destruction to suggest osteomyelitis. 2. Soft tissue swelling around the ankle. 3. Large posterior calcaneal spur. Ankle X-Ray 01/07/24 15:35 IMPRESSION: Marked soft tissue swelling without evidence of an acute osseous injury. Venous Duplex 01/08/24 10:03 IMPRESSION: No DVT demonstrated in the right lower extremity. This study was presented today 01/09/2024 for interpretation. Prompt priority results supplied at this time to the referring provider as requested by the provider. Medications Medications Current Medications Acetaminophen (Acetaminophen 325 Mg Tablet) 650 mg PO Q6H PRN PRN Reason: Headache/Pain Mild Scale (1-3) Last Admin: 01/08/24 14:12 Dose: 650 mg Al Hydroxide/Mg Hydroxide (Magnesium Hydrox/Alum Hydrox 30 Ml Oral.Susp) 30 ml PO Q6H PRN PRN Reason: Heartburn/Nausea Last Admin: 11/29/23 22:00 Dose: 30 ml Apixaban (Apixaban 5 Mg Tablet) 5 mg PO BID [facility] Last Admin: 01/21/24 20:49 Dose: 5 mg Atenolol (Atenolol 25 Mg Tablet) 25 mg PO DAILY [facility]; Protocol Last Admin: 01/21/24 11:21 Dose: 25 mg Benzocaine (Throat Lozenge, Medicated Lozenge) 1 lozenge MUCOUS MEM Q2H PRN PRN Reason: Sore Throat Benzocaine (Throat Lozenge, Medicated Lozenge) 1 lozenge MUCOUS MEM Q2H PRN PRN Reason: Sore Throat Clozapine (Clozapine 100 Mg Tablet) 100 mg PO BEDTIME [facility] Last Admin: 01/21/24 20:48 Dose: 100 mg Divalproex Sodium (Divalproex Sodium Sprinkles 125 Mg Cap.) 500 mg PO BID [facility]IO Last Admin: 01/21/24 20:48 Dose: 500 mg Docusate Sodium (Docusate Sodium 100 Mg Capsule) 100 mg PO BEDTIME INOCENCIO Last Admin: 01/21/24 20:48 Dose: 100 mg Furosemide (Furosemide 40 Mg Tablet) 40 mg PO DAILY [facility]; Protocol Last Admin: 01/21/24 11:22 Dose: 40 mg Hydrocortisone (Hydrocortisone 1 % Cream 28.35 Gm Tube) 1 appl TOPICAL BID [facility]IO; Protocol Last Admin: 01/22/24 02:12 Dose: 1 appl Hydroxyzine HCl (Hydroxyzine Hcl 25 Mg Tablet) 25 mg PO Q6H PRN PRN Reason: Anxiety Last Admin: 01/07/24 21:32 Dose: 25 mg Lactic Acid (Ammonium Lactate 12 % Lotion 226 Gm Bottle) 1 appl TOPICAL BID PRN; Protocol PRN Reason: Rash Last Admin: 12/26/23 09:45 Dose: 1 appl Lorazepam (Lorazepam 1 Mg Tablet) 1 mg PO BEDTIME PRN PRN Reason: insomnia,anxiety,agitation Last Admin: 01/09/24 01:52 Dose: 1 mg Lorazepam (Lorazepam 1 Mg Tablet) 1 mg PO Q6H PRN PRN Reason: severe anxiety Last Admin: 01/21/24 17:07 Dose: 1 mg Magnesium Hydroxide (Milk Of Magnesia 30 Ml Oral.Susp) 30 ml PO DAILY PRN PRN Reason: Constipation Last Admin: 12/18/23 10:35 Dose: 30 ml Metformin HCl (Metformin Hcl Er 500 Mg Tab.Er.24h) 500 mg PO DAILY [facility] Last Admin: 01/21/24 11:22 Dose: 500 mg Metronidazole (Metronidazole 0.75 % Gel 45 Gm Tube) 1 appl TOPICAL DAILY [facility] Last Admin: 01/21/24 13:55 Dose: 1 appl Multi-Ingred Cream/Lotion/Oil/Oint (Mineral Oil/Petrolatum,White 106 Gm Tube) 1 appl TOPICAL BID [facility] Last Admin: 01/22/24 02:12 Dose: 1 appl Multi-Ingred Medicated Throat [place] (Throat [place], Medicated 177 Ml Bottle) 1 spray MUCOUS MEM Q2H PRN PRN Reason: Sore Throat Multivitamins/Vitamin C (Multivitamin Tablet) 1 tab PO DAILY [facility] Last Admin: 01/21/24 11:21 Dose: 1 tab Pt Own (Culturelle (Probiotics 1 Cap)) 1 cap PO DAILY [facility] Last Admin: 01/21/24 10:06 Dose: Not Given Nystatin (Nystatin Powder 15 Gm Bottle) 1 appl TOPICAL BID PRN; Protocol PRN Reason: Rash Last Admin: 12/25/23 11:07 Dose: 1 appl Olanzapine (Olanzapine 5 Mg Tablet) 5 mg PO TID PRN PRN Reason: agitation Last Admin: 01/07/24 21:32 Dose: 5 mg Allergies Allergies Allergy/AdvReac Type Severity Reaction Status Date / Time kiwi [KIWI] Allergy Mild HIVES Verified 11/21/23 05:49 mold [MOLD EXTRACTS*] Allergy Mild HIVES Verified 11/21/23 05:49 Assessment & Plan Assessment & Plan (1) Schizoaffective disorder, bipolar type: Status: Acute Code(s): F25.0 - Schizoaffective disorder, bipolar type (2) Venous stasis: Status: Acute Code(s): I87.8 - Other specified disorders of veins Assessment and Plan: Hosp note 12/31/23: Pt seen at bedside at RN request for patient reassurance regarding BLE edema. Pt has had multiple evaluation for chronic ble edema with chronic venous stasis dermatitis. She has been complaint with compression stockings and improved hygeine overall. Today, appearance of BLE is actually markedly improved. There is still faint erythema of the distal aspect of the BLE and the posterior RLE but overall much improved. No significant warmth. Superfical lesion dorsum R foot well healing. Noevidence of infection. Continue with conservative measures as previously discussed (3) Chronic cellulitis: Status: Acute Code(s): L03.90 - Cellulitis, unspecified Plan 12/01/23: Continue current tx and plan 12/02/23: Continue current plan and tx Change Chlorpromazine daytime doses to prn. 12/03/23 - seems more labile with mother present - reassuring eval by hospitalist today- they are following closely with us but encouraging and supporting patient with compliance with stockings and leg elevation seem paramount 12/04/23- limited mobility did wear kenzie stockings- but won't wear slippers/shoes- difficulty raising her feet up - ongoing hypersexual content of thought/somatic preoccupation of PCOS- wanting to sign 3d 12/05/23 Patient mostly in her room limited mobility somatic preoccupations patient did sign a 3 day unrealistic expectation regarding outpatient setting 12/08/23 Change Chlorpromazine 100 mg HS to prn Decrease Valproate from 3000 mg daily to 2000 mg daily Sustenna 234 mg IM given today by team. 12/09/23 Continue to monitor for daytime sedation. 12/11/23 Continue treatment 12/12/23 Sx of bacterial vaginosis-antibiotic initiated. 12/14/23: Labs ordered for the a.m. 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 Patient labile episodes of being expansive overwhelmed anxiety times somatic paranoid delusional material did receive Invega injection 1 week ago should be a therapeutic dose unfortunately has. 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 Metronidazole gel QD for BV Cris Carballo's consult much appreciated. 01/01 O2 2L at HS Continue current regime Respiratory therapy consult much appreciated. 12/23 disorganized in speech and behavior; making sexualized comments to staff 12/24 little more calm today; still disorganized; continue current treatment plan 12/26/23: Continue current plan. Urology consult much appreciated. 12/28/23: Clozaril consideration. 12/29/23: Father is in agreement to trial Clozapine. Application submitted to [facility] 12/30/23: Preparing for Clozapine. Begin Depakote decrease by 500 mg daily. Father/HCP reviewing Clozapine [facility] If he is in agreement, will stop Chlorpromazine, obtain EKG and move forward with Clozapine initiation. 12/30: continue current management and treatment plan. 12/31: continue current management and treatment plan. 01/06/24: Continue plan.01/06: strongly encouraged Invega long-acting injectable. Patient reports he might take this tomorrow. Does endorse right foot swelling. Aware bilateral lower limb swelling has been a chronic issue. There is bilateral redness and some tenderness. No discharge or Increase temperature. That being said right lower limb and foot do appear larger than the left side, with some tenderness. Patient was unsure if she rolled her ankle at 1 point while pacing a lot. Will order ankle x-ray and also non urgent lower limb venous Doppler. After same will consider hospitalist consult. 01/07: accepted invega sustenna today. Doppler and xray results pending 01/08: Doppler/XRay results are negative. Continue current plan of care and regime. 01/09: WBC 7.9, ANC 4.3 Continue Clozapine trial. 01/12/24: Continue Clozapine 50 mg HS 01/13/24: Afternoon sedation. Continue Clozapine 50 mg HS Decrease Depakote to 1000 mg bid from 1250 m 01/14/24 decrease depakote tp 500mg bid due to xs sedation all day and night, with incontinence- continue clozapine 50mg qhs 01/15/24 more alert today; lowered her dpeakote down to 500mg bid- seems more awake tonight slept all night and still had incontinence and couldn't make it to bathroom this am- 01/16/24 No changes today. 01/18/24 Continue current regime/plan. Tentative discharge to home next week. 01/20/24 Continue current regime/plan. 01/20 increase clozapine 100 mg 01/21 continue current treatment plan with clozapine that 100 mg q.h.s. Patient educated on: diagnosis Informed Consent: does not understand and further education needed Reason for continued inpatient stay Substantial Risk for: inability to function Time Spent With Patient Time: Total time managing care of this patient today ____ minutes.
[2024-01-22 10:15] LABS: Glucose, Whole Blood 113 mg/dL (60-115)
[2024-01-22] MEDS: Divalproex Sodium Sprinkles 125 MG CAP.DR.SPR 500 MG PO ×2 (10:17→21:27)
[2024-01-22] MEDS: Multivitamin TABLET 1 TAB PO (10:18)
[2024-01-22 10:20] VITALS: BP 127/96; PULSE 97
[2024-01-22] MEDS: atenoloL 25 MG TABLET PO (10:20)
[2024-01-22 10:21] VITALS: BP 127/96
[2024-01-22] MEDS: Furosemide 40 MG TABLET PO (10:21)
[2024-01-22] MEDS: Apixaban 5 MG TABLET PO ×2 (10:21→21:26)
[2024-01-22] MEDS: metFORMIN HCl ER 500 MG TAB.ER.24H PO (10:22)
[2024-01-22] MEDS: metroNIDAZOLE 0.75 % Gel 45 GM TUBE 1 APPL TOPICAL (16:01)
[2024-01-22 20:00] VITALS: BP 120/76; PULSE 84; RESP 18; TEMP 36.2; O2SAT 97
[2024-01-22] MEDS: Docusate Sodium 100 MG CAPSULE PO (21:26)
[2024-01-22] MEDS: cloZAPine 100 MG TABLET PO (21:26)
[2024-01-23 12:00] VITALS: BP 135/90; PULSE 100; RESP 18; TEMP 36.6; O2SAT 100
[2024-01-23] MEDS: metFORMIN HCl ER 500 MG TAB.ER.24H PO (12:17)
[2024-01-23 12:19] VITALS: BP 140/85; PULSE 100
[2024-01-23] MEDS: atenoloL 25 MG TABLET PO (12:19)
[2024-01-23] MEDS: Multivitamin TABLET 1 TAB PO (12:19)
[2024-01-23] MEDS: Divalproex Sodium Sprinkles 125 MG CAP.DR.SPR 500 MG PO ×2 (12:19→22:38)
[2024-01-23 12:20] VITALS: BP 140/85
[2024-01-23] MEDS: Apixaban 5 MG TABLET PO ×2 (12:20→22:42)
[2024-01-23] MEDS: Furosemide 40 MG TABLET PO (12:20)
[2024-01-23] MEDS: metroNIDAZOLE 0.75 % Gel 45 GM TUBE 1 APPL TOPICAL (12:20)
--- NOTE | 2024-01-23 17:15 | HO.PSYCHPN ---
Subjective Subjective Date of Service: 01/23/24 Reason For Visit: manic aggressive Subjective Notes: Conditional Voluntary Healthcare Proxy: Yes Guardianship: No Medical Problems Affecting Mental Status: No Interim History: Team report a difficult weekend with delusional content, incontinence (believes her water broke and she will deliver a child) psychosis, fear, calling 911 and some agitated times. Clozaril increased on 01/20. Today, pt slept late, allowed team to assist her with ADL.s Mood more positive today-able to call her father with tw and have a reasonable discussion except did ask father if she would be safe when she came home. He mentioned several neighbors/friends who would help her if needed and her dog, Cheyenne who would help her as well. She was reassured and did not continue this line of questioning. Weekend team reports pt still has psychosis and they believe we should apply for [facility]. Family is wanting to trial pt at home, believing that her sx are from being away from home and family for so long. She may return. Discussed this with father, who agrees that we will continue to titrate Clozapine and will extend discharge to 01/27/24. Medication Compliance: Yes Side effects from medications: No Attending Groups: No Review of Systems Acute medical concerns: No not today. Did ask if she had a cancer diagnosis-states team injected her over the weekend. Medical Review of Systems: unchanged Review of Systems Review of Systems Denies pain today. Mental Status Exam Mental Status Exam Patient Appearance: Appropriate Patient Orientation: Person and Place Level of Consciousness: Alert Patient Behavior: Appropriate, Talkative, Cooperative, Anxious (at times), Fearful (at times), Distractible, Confused and Good Eye Contact Mood Description: Labile Affect Description: Labile Patient Cognition Impaired: No Ability to Follow Directions: Fair Speech Pattern: Perseverating (at times) and Spontaneous Speech Memory Description: Remote Impaired Hallucinations: None Delusions: Present Perceptual Disturbances: Derealization Thought Process: Illogical (at times), Distracted (at times) and Rumination (at times) Thought Content: positive for Circumstantial, positive for Perseveration (at times) and positive for Tangential Depressive Symptoms: Sleeping More Than Usual Judgement: Fair Diagnostics Vital Signs (24Hr): Vital Signs - 24 hr 01/22/24 20:00 01/23/24 12:00 01/23/24 12:19 Temperature 97.1 F 97.8 F Pulse Rate 84 100 100 Respiratory Rate 18 18 Blood Pressure 120/76 135/90 H 140/85 H Pulse Oximetry 97 100 Oxygen Delivery Method Room Air Room Air 01/23/24 12:20 Temperature Pulse Rate Respiratory Rate Blood Pressure 140/85 H Pulse Oximetry Oxygen Delivery Method BMI result Body Mass Index 60.0 Labs 01/10/24 15:28 01/19/24 08:06 Labs: Laboratory Results - last 48 hr 01/21/24 01/22/24 22:34 10:11 POC Glucose 176 H 113 Imaging Radiology Impressions: ITS Impressions Ankle X-Ray 01/03/24 19:05 IMPRESSION: 1. No radiographic evidence of bone destruction to suggest osteomyelitis. 2. Soft tissue swelling around the ankle. 3. Large posterior calcaneal spur. Ankle X-Ray 01/07/24 15:35 IMPRESSION: Marked soft tissue swelling without evidence of an acute osseous injury. Venous Duplex 01/08/24 10:03 IMPRESSION: No DVT demonstrated in the right lower extremity. This study was presented today 01/09/2024 for interpretation. Prompt priority results supplied at this time to the referring provider as requested by the provider. Medications Medications Current Medications Acetaminophen (Acetaminophen 325 Mg Tablet) 650 mg PO Q6H PRN PRN Reason: Headache/Pain Mild Scale (1-3) Last Admin: 01/08/24 14:12 Dose: 650 mg Al Hydroxide/Mg Hydroxide (Magnesium Hydrox/Alum Hydrox 30 Ml Oral.Susp) 30 ml PO Q6H PRN PRN Reason: Heartburn/Nausea Last Admin: 11/29/23 22:00 Dose: 30 ml Apixaban (Apixaban 5 Mg Tablet) 5 mg PO BID [facility] Last Admin: 01/23/24 12:20 Dose: 5 mg Atenolol (Atenolol 25 Mg Tablet) 25 mg PO DAILY [facility]; Protocol Last Admin: 01/23/24 12:19 Dose: 25 mg Benzocaine (Throat Lozenge, Medicated Lozenge) 1 lozenge MUCOUS MEM Q2H PRN PRN Reason: Sore Throat Benzocaine (Throat Lozenge, Medicated Lozenge) 1 lozenge MUCOUS MEM Q2H PRN PRN Reason: Sore Throat Clozapine (Clozapine 100 Mg Tablet) 100 mg PO BEDTIME [facility] Last Admin: 01/22/24 21:26 Dose: 100 mg Divalproex Sodium (Divalproex Sodium Sprinkles 125 Mg ) 500 mg PO BID [facility] Last Admin: 01/23/24 12:19 Dose: 500 mg Docusate Sodium (Docusate Sodium 100 Mg Capsule) 100 mg PO BEDTIME [facility] Last Admin: 01/22/24 21:26 Dose: 100 mg Furosemide (Furosemide 40 Mg Tablet) 40 mg PO DAILY [facility]; Protocol Last Admin: 01/23/24 12:20 Dose: 40 mg Hydrocortisone (Hydrocortisone 1 % Cream 28.35 Gm Tube) 1 appl TOPICAL BID [facility]; Protocol Last Admin: 01/23/24 10:25 Dose: Not Given Hydroxyzine HCl (Hydroxyzine Hcl 25 Mg Tablet) 25 mg PO Q6H PRN PRN Reason: Anxiety Last Admin: 01/07/24 21:32 Dose: 25 mg Lactic Acid (Ammonium Lactate 12 % Lotion 226 Gm Bottle) 1 appl TOPICAL BID PRN; Protocol PRN Reason: Rash Last Admin: 12/26/23 09:45 Dose: 1 appl Lorazepam (Lorazepam 1 Mg Tablet) 1 mg PO BEDTIME PRN PRN Reason: insomnia,anxiety,agitation Last Admin: 01/09/24 01:52 Dose: 1 mg Lorazepam (Lorazepam 1 Mg Tablet) 1 mg PO Q6H PRN PRN Reason: severe anxiety Last Admin: 01/21/24 17:07 Dose: 1 mg Magnesium Hydroxide (Milk Of Magnesia 30 Ml Oral.Susp) 30 ml PO DAILY PRN PRN Reason: Constipation Last Admin: 12/18/23 10:35 Dose: 30 ml Metformin HCl (Metformin Hcl Er 500 Mg Tab.Er.24h) 500 mg PO DAILY [facility] Last Admin: 01/23/24 12:17 Dose: 500 mg Metronidazole (Metronidazole 0.75 % Gel 45 Gm Tube) 1 appl TOPICAL DAILY [facility] Last Admin: 01/23/24 12:20 Dose: 1 appl Multi-Ingred Cream/Lotion/Oil/Oint (Mineral Oil/Petrolatum,White 106 Gm Tube) 1 appl TOPICAL BID [facility] Last Admin: 01/23/24 12:20 Dose: Not Given Multi-Ingred Medicated Throat [place] (Throat [place], Medicated 177 Ml Bottle) 1 spray MUCOUS MEM Q2H PRN PRN Reason: Sore Throat Multivitamins/Vitamin C (Multivitamin Tablet) 1 tab PO DAILY [facility] Last Admin: 01/23/24 12:19 Dose: 1 tab Pt Own (Culturelle (Probiotics 1 Cap)) 1 cap PO DAILY [facility] Last Admin: 01/23/24 10:25 Dose: Not Given Nystatin (Nystatin Powder 15 Gm Bottle) 1 appl TOPICAL BID PRN; Protocol PRN Reason: Rash Last Admin: 12/25/23 11:07 Dose: 1 appl Olanzapine (Olanzapine 5 Mg Tablet) 5 mg PO TID PRN PRN Reason: agitation Last Admin: 01/07/24 21:32 Dose: 5 mg Allergies Allergies Allergy/AdvReac Type Severity Reaction Status Date / Time kiwi [KIWI] Allergy Mild HIVES Verified 11/21/23 05:49 mold [MOLD EXTRACTS*] Allergy Mild HIVES Verified 11/21/23 05:49 Assessment & Plan Assessment & Plan (1) Schizoaffective disorder, bipolar type: Status: Acute Code(s): F25.0 - Schizoaffective disorder, bipolar type (2) Venous stasis: Status: Acute Code(s): I87.8 - Other specified disorders of veins Assessment and Plan: Hosp note 12/31/23: Pt seen at bedside at RN request for patient reassurance regarding BLE edema. Pt has had multiple evaluation for chronic ble edema with chronic venous stasis dermatitis. She has been complaint with compression stockings and improved hygeine overall. Today, appearance of BLE is actually markedly improved. There is still faint erythema of the distal aspect of the BLE and the posterior RLE but overall much improved. No significant warmth. Superfical lesion dorsum R foot well healing. Noevidence of infection. Continue with conservative measures as previously discussed (3) Chronic cellulitis: Status: Acute Code(s): L03.90 - Cellulitis, unspecified Plan 12/01/23: Continue current tx and plan 12/02/23: Continue current plan and tx Change Chlorpromazine daytime doses to prn. 12/03/23 - seems more labile with mother present - reassuring eval by hospitalist today- they are following closely with us but encouraging and supporting patient with compliance with stockings and leg elevation seem paramount 12/04/23- limited mobility did wear kenzie stockings- but won't wear slippers/shoes- difficulty raising her feet up - ongoing hypersexual content of thought/somatic preoccupation of PCOS- wanting to sign 3d 12/05/23 Patient mostly in her room limited mobility somatic preoccupations patient did sign a 3 day unrealistic expectation regarding outpatient setting 12/08/23 Change Chlorpromazine 100 mg HS to prn Decrease Valproate from 3000 mg daily to 2000 mg daily Sustenna 234 mg IM given today by team. 12/09/23 Continue to monitor for daytime sedation. 12/11/23 Continue treatment 12/12/23 Sx of bacterial vaginosis-antibiotic initiated. 12/14/23: Labs ordered for the a.m. 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 Patient labile episodes of being expansive overwhelmed anxiety times somatic paranoid delusional material did receive Invega injection 1 week ago should be a therapeutic dose unfortunately has. 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 Metronidazole gel QD for BV Cris Carballo's consult much appreciated. 01/01 O2 2L at HS Continue current regime Respiratory therapy consult much appreciated. 12/23 disorganized in speech and behavior; making sexualized comments to staff 12/24 little more calm today; still disorganized; continue current treatment plan 12/26/23: Continue current plan. Urology consult much appreciated. 12/28/23: Clozaril consideration. 12/29/23: Father is in agreement to trial Clozapine. Application submitted to [facility] 12/30/23: Preparing for Clozapine. Begin Depakote decrease by 500 mg daily. Father/HCP reviewing Clozapine [facility] If he is in agreement, will stop Chlorpromazine, obtain EKG and move forward with Clozapine initiation. 12/30: continue current management and treatment plan. 12/31: continue current management and treatment plan. 01/06/24: Continue plan.01/06: strongly encouraged Invega long-acting injectable. Patient reports he might take this tomorrow. Does endorse right foot swelling. Aware bilateral lower limb swelling has been a chronic issue. There is bilateral redness and some tenderness. No discharge or Increase temperature. That being said right lower limb and foot do appear larger than the left side, with some tenderness. Patient was unsure if she rolled her ankle at 1 point while pacing a lot. Will order ankle x-ray and also non urgent lower limb venous Doppler. After same will consider hospitalist consult. 01/07: accepted invega sustenna today. Doppler and xray results pending 01/08: Doppler/XRay results are negative. Continue current plan of care and regime. 01/09: WBC 7.9, ANC 4.3 Continue Clozapine trial. 01/12/24: Continue Clozapine 50 mg HS 01/13/24: Afternoon sedation. Continue Clozapine 50 mg HS Decrease Depakote to 1000 mg bid from 1250 m 01/14/24 decrease depakote tp 500mg bid due to xs sedation all day and night, with incontinence- continue clozapine 50mg qhs 01/15/24 more alert today; lowered her dpeakote down to 500mg bid- seems more awake tonight slept all night and still had incontinence and couldn't make it to bathroom this am- 01/16/24 No changes today. 01/18/24 Continue current regime/plan. Tentative discharge to home next week. 01/20/24 Continue current regime/plan. 01/20 increase clozapine 100 mg 01/21 continue current treatment plan with clozapine that 100 mg q.h.s. 01/22/21 Increase Clozapine to 125 mg HS Reason for continued inpatient stay Substantial Risk for: rapid decompensation Time Spent With Patient Time: Total time managing care of this patient today ____ minutes.
[2024-01-23 20:00] VITALS: BP 138/87; PULSE 92; TEMP 36.8
[2024-01-23 21:00] LABS: Glucose, Whole Blood 133 mg/dL (60-115)
[2024-01-23] MEDS: Docusate Sodium 100 MG CAPSULE PO (22:41)
[2024-01-23] MEDS: cloZAPine 25 MG TABLET 125 MG PO (22:42)
[2024-01-23] MEDS: Mineral Oil/Petrolatum,White 106 GM Tube 1 APPL TOPICAL (22:50)
--- NOTE | 2024-01-24 09:35 | HO.PSYCHPN ---
Subjective Subjective Date of Service: 01/24/24 Reason For Visit: manic aggressive Subjective Notes: Conditional Voluntary Healthcare Proxy: Yes Guardianship: No Medical Problems Affecting Mental Status: No Interim History: Zeinab slept until lunch time. She prepared for the day with team assist, ate lunch and visited with her mother. She is in behavioral control today. She is tangential and disorganized at times. She does express concerns about her health, the safety of her family, and being in danger when discharged to home, although she does not specifically say what her concern is, just asking who will help and protect her when at home. Her father has assured her that several neighbors, friends, family, himself and Cheyenne, her dog are all there for her which seems to provide some intermittent relief. She is in the milieu, social and interactive with the team and with peers. Her clozapine is scheduled for early evening to prevent late a.m. sedation. We will hold at 125 mg to allow her time to adjust to dosing. Team reports last evening reports of visual perceptual alterations that she described as fireworks. Today, she denies this sx, but let's go to [facility] to the fireworks. was her response. Medication Compliance: Yes Side effects from medications: Yes (a.m. sedation) Attending Groups: No Review of Systems Acute medical concerns: No Medical Review of Systems: unchanged Review of Systems Review of Systems Denies sx today, although sedation this a.m. Mental Status Exam Mental Status Exam Patient Appearance: Appropriate Patient Orientation: Person, Place and Situation Level of Consciousness: Alert Patient Behavior: Talkative and Good Eye Contact Mood Description: Happy, Nervous and Apprehensive Affect Description: Apprehensive Patient Cognition Impaired: Yes Ability to Follow Directions: Fair Speech Pattern: Spontaneous Speech Memory Description: Episodic Impaired Hallucinations: Visual (reported last evening, yet denies today) Delusions: Paranoid Ideation Perceptual Disturbances: Derealization Thought Process: Illogical (at times), Distracted, Rumination (at times) and Slowed Thinking Thought Content: positive for Circumstantial, positive for Perseveration and positive for Poverty of Content Depressive Symptoms: Increased Anxiety (at times) and Sleeping More Than Usual Judgement: Fair Diagnostics Vital Signs (24Hr): Vital Signs - 24 hr 01/23/24 12:00 01/23/24 12:19 01/23/24 12:20 Temperature 97.8 F Pulse Rate 100 100 Respiratory Rate 18 Blood Pressure 135/90 H 140/85 H 140/85 H Pulse Oximetry 100 Oxygen Delivery Method Room Air 01/23/24 20:00 Temperature 98.3 F Pulse Rate 92 Respiratory Rate Blood Pressure 138/87 Pulse Oximetry Oxygen Delivery Method BMI result Body Mass Index 60.0 Labs 01/10/24 15:28 01/19/24 08:06 Labs: Laboratory Results - last 48 hr 01/22/24 01/23/24 10:11 20:56 POC Glucose 113 133 H Imaging Radiology Impressions: ITS Impressions Ankle X-Ray 01/03/24 19:05 IMPRESSION: 1. No radiographic evidence of bone destruction to suggest osteomyelitis. 2. Soft tissue swelling around the ankle. 3. Large posterior calcaneal spur. Ankle X-Ray 01/07/24 15:35 IMPRESSION: Marked soft tissue swelling without evidence of an acute osseous injury. Venous Duplex 01/08/24 10:03 IMPRESSION: No DVT demonstrated in the right lower extremity. This study was presented today 01/09/2024 for interpretation. Prompt priority results supplied at this time to the referring provider as requested by the provider. Medications Medications Current Medications Acetaminophen (Acetaminophen 325 Mg Tablet) 650 mg PO Q6H PRN PRN Reason: Headache/Pain Mild Scale (1-3) Last Admin: 01/08/24 14:12 Dose: 650 mg Al Hydroxide/Mg Hydroxide (Magnesium Hydrox/Alum Hydrox 30 Ml Oral.Susp) 30 ml PO Q6H PRN PRN Reason: Heartburn/Nausea Last Admin: 11/29/23 22:00 Dose: 30 ml Apixaban (Apixaban 5 Mg Tablet) 5 mg PO BID [facility] Last Admin: 01/23/24 22:42 Dose: 5 mg Atenolol (Atenolol 25 Mg Tablet) 25 mg PO DAILY [facility]; Protocol Last Admin: 01/23/24 12:19 Dose: 25 mg Benzocaine (Throat Lozenge, Medicated Lozenge) 1 lozenge MUCOUS MEM Q2H PRN PRN Reason: Sore Throat Benzocaine (Throat Lozenge, Medicated Lozenge) 1 lozenge MUCOUS MEM Q2H PRN PRN Reason: Sore Throat Clozapine (Clozapine 25 Mg Tablet) 125 mg PO DAILY@1930 [facility] Last Admin: 01/23/24 22:42 Dose: 125 mg Divalproex Sodium (Divalproex Sodium Sprinkles 125 Mg ) 500 mg PO BID [facility] Last Admin: 01/23/24 22:38 Dose: 500 mg Docusate Sodium (Docusate Sodium 100 Mg Capsule) 100 mg PO BEDTIME [facility] Last Admin: 01/23/24 22:41 Dose: 100 mg Furosemide (Furosemide 40 Mg Tablet) 40 mg PO DAILY [facility]; Protocol Last Admin: 01/23/24 12:20 Dose: 40 mg Hydrocortisone (Hydrocortisone 1 % Cream 28.35 Gm Tube) 1 appl TOPICAL BID [facility]; Protocol Last Admin: 01/24/24 09:18 Dose: Not Given Hydroxyzine HCl (Hydroxyzine Hcl 25 Mg Tablet) 25 mg PO Q6H PRN PRN Reason: Anxiety Last Admin: 01/07/24 21:32 Dose: 25 mg Lactic Acid (Ammonium Lactate 12 % Lotion 226 Gm Bottle) 1 appl TOPICAL BID PRN; Protocol PRN Reason: Rash Last Admin: 12/26/23 09:45 Dose: 1 appl Lorazepam (Lorazepam 1 Mg Tablet) 1 mg PO BEDTIME PRN PRN Reason: insomnia,anxiety,agitation Last Admin: 01/09/24 01:52 Dose: 1 mg Lorazepam (Lorazepam 1 Mg Tablet) 1 mg PO Q6H PRN PRN Reason: severe anxiety Last Admin: 01/21/24 17:07 Dose: 1 mg Magnesium Hydroxide (Milk Of Magnesia 30 Ml Oral.Susp) 30 ml PO DAILY PRN PRN Reason: Constipation Last Admin: 12/18/23 10:35 Dose: 30 ml Metformin HCl (Metformin Hcl Er 500 Mg Tab.Er.24h) 500 mg PO DAILY [facility] Last Admin: 01/23/24 12:17 Dose: 500 mg Metronidazole (Metronidazole 0.75 % Gel 45 Gm Tube) 1 appl TOPICAL DAILY [facility] Last Admin: 01/23/24 12:20 Dose: 1 appl Multi-Ingred Cream/Lotion/Oil/Oint (Mineral Oil/Petrolatum,White 106 Gm Tube) 1 appl TOPICAL BID [facility] Last Admin: 01/23/24 22:50 Dose: 1 appl Multi-Ingred Medicated Throat [place] (Throat [place], Medicated 177 Ml Bottle) 1 spray MUCOUS MEM Q2H PRN PRN Reason: Sore Throat Multivitamins/Vitamin C (Multivitamin Tablet) 1 tab PO DAILY [facility] Last Admin: 01/23/24 12:19 Dose: 1 tab Pt Own (Culturelle (Probiotics 1 Cap)) 1 cap PO DAILY [facility] Last Admin: 01/24/24 09:18 Dose: Not Given Nystatin (Nystatin Powder 15 Gm Bottle) 1 appl TOPICAL BID PRN; Protocol PRN Reason: Rash Last Admin: 12/25/23 11:07 Dose: 1 appl Olanzapine (Olanzapine 5 Mg Tablet) 5 mg PO TID PRN PRN Reason: agitation Last Admin: 01/07/24 21:32 Dose: 5 mg Allergies Allergies Allergy/AdvReac Type Severity Reaction Status Date / Time kiwi [KIWI] Allergy Mild HIVES Verified 11/21/23 05:49 mold [MOLD EXTRACTS*] Allergy Mild HIVES Verified 11/21/23 05:49 Assessment & Plan Assessment & Plan (1) Schizoaffective disorder, bipolar type: Status: Acute Code(s): F25.0 - Schizoaffective disorder, bipolar type (2) Venous stasis: Status: Acute Code(s): I87.8 - Other specified disorders of veins Assessment and Plan: Hosp note 12/31/23: Pt seen at bedside at RN request for patient reassurance regarding BLE edema. Pt has had multiple evaluation for chronic ble edema with chronic venous stasis dermatitis. She has been complaint with compression stockings and improved hygeine overall. Today, appearance of BLE is actually markedly improved. There is still faint erythema of the distal aspect of the BLE and the posterior RLE but overall much improved. No significant warmth. Superfical lesion dorsum R foot well healing. Noevidence of infection. Continue with conservative measures as previously discussed (3) Chronic cellulitis: Status: Acute Code(s): L03.90 - Cellulitis, unspecified Plan 12/01/23: Continue current tx and plan 12/02/23: Continue current plan and tx Change Chlorpromazine daytime doses to prn. 12/03/23 - seems more labile with mother present - reassuring eval by hospitalist today- they are following closely with us but encouraging and supporting patient with compliance with stockings and leg elevation seem paramount 12/04/23- limited mobility did wear kenzie stockings- but won't wear slippers/shoes- difficulty raising her feet up - ongoing hypersexual content of thought/somatic preoccupation of PCOS- wanting to sign 3d 4/1/24 Patient mostly in her room limited mobility somatic preoccupations patient did sign a 3 day unrealistic expectation regarding outpatient setting 12/08/23 Change Chlorpromazine 100 mg HS to prn Decrease Valproate from 3000 mg daily to 2000 mg daily Sustenna 234 mg IM given today by team. 12/09/23 Continue to monitor for daytime sedation. 12/11/23 Continue treatment 12/12/23 Sx of bacterial vaginosis-antibiotic initiated. 12/14/23: Labs ordered for the a.m. 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 Patient labile episodes of being expansive overwhelmed anxiety times somatic paranoid delusional material did receive Invega injection 1 week ago should be a therapeutic dose unfortunately has. 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 Metronidazole gel QD for BV Cris Carballo's consult much appreciated. 01/01 O2 2L at HS Continue current regime Respiratory therapy consult much appreciated. 12/23 disorganized in speech and behavior; making sexualized comments to staff 12/24 little more calm today; still disorganized; continue current treatment plan 12/26/23: Continue current plan. Urology consult much appreciated. 12/28/23: Clozaril consideration. 12/29/23: Father is in agreement to trial Clozapine. Application submitted to [facility] 12/30/23: Preparing for Clozapine. Begin Depakote decrease by 500 mg daily. Father/HCP reviewing Clozapine [facility] If he is in agreement, will stop Chlorpromazine, obtain EKG and move forward with Clozapine initiation. 12/30: continue current management and treatment plan. 12/31: continue current management and treatment plan. 01/06/24: Continue plan.01/06: strongly encouraged Invega long-acting injectable. Patient reports he might take this tomorrow. Does endorse right foot swelling. Aware bilateral lower limb swelling has been a chronic issue. There is bilateral redness and some tenderness. No discharge or Increase temperature. That being said right lower limb and foot do appear larger than the left side, with some tenderness. Patient was unsure if she rolled her ankle at 1 point while pacing a lot. Will order ankle x-ray and also non urgent lower limb venous Doppler. After same will consider hospitalist consult. 01/07: accepted invega sustenna today. Doppler and xray results pending 01/08: Doppler/XRay results are negative. Continue current plan of care and regime. 01/09: WBC 7.9, ANC 4.3 Continue Clozapine trial. 01/12/24: Continue Clozapine 50 mg HS 01/13/24: Afternoon sedation. Continue Clozapine 50 mg HS Decrease Depakote to 1000 mg bid from 1250 m 01/14/24 decrease depakote tp 500mg bid due to xs sedation all day and night, with incontinence- continue clozapine 50mg qhs 01/15/24 more alert today; lowered her dpeakote down to 500mg bid- seems more awake tonight slept all night and still had incontinence and couldn't make it to bathroom this am- 01/16/24 No changes today. 01/18/24 Continue current regime/plan. Tentative discharge to home next week. 01/20/24 Continue current regime/plan. 01/20 increase clozapine 100 mg 01/21 continue current treatment plan with clozapine that 100 mg q.h.s. 01/23/24 Increase Clozapine to 125 mg HS 01/24/24 Continue current regime Patient educated on: therapeutic strategies Reason for continued inpatient stay Substantial Risk for: rapid decompensation and med/psych decompensation Time Spent With Patient Time: Total time managing care of this patient today ____ minutes.
[2024-01-24 10:22] VITALS: BP 138/80; PULSE 127; RESP 18; TEMP 36.5; O2SAT 96
[2024-01-24 10:23] LABS: Glucose, Whole Blood 116 mg/dL (60-115)
[2024-01-24 12:48] VITALS: BP 148/92; PULSE 93
[2024-01-24] MEDS: Divalproex Sodium Sprinkles 125 MG CAP.DR.SPR 500 MG PO ×2 (12:48→19:44)
[2024-01-24] MEDS: atenoloL 25 MG TABLET PO (12:48)
[2024-01-24] MEDS: Furosemide 40 MG TABLET PO (12:48)
[2024-01-24] MEDS: metFORMIN HCl ER 500 MG TAB.ER.24H PO (12:48)
[2024-01-24] MEDS: Apixaban 5 MG TABLET PO ×2 (12:48→19:44)
[2024-01-24] MEDS: Multivitamin TABLET 1 TAB PO (12:49)
[2024-01-24] MEDS: metroNIDAZOLE 0.75 % Gel 45 GM TUBE 1 APPL TOPICAL (13:36)
[2024-01-24] MEDS: Nystatin Powder 15 GM BOTTLE 1 APPL TOPICAL (13:36)
[2024-01-24] MEDS: Mineral Oil/Petrolatum,White 106 GM Tube 1 APPL TOPICAL (13:36)
[2024-01-24] MEDS: cloZAPine 25 MG TABLET 125 MG PO (19:44)
[2024-01-24] MEDS: Docusate Sodium 100 MG CAPSULE PO (19:44)
[2024-01-24 20:00] VITALS: BP 108/54; PULSE 81; RESP 17; TEMP 36.2; O2SAT 95
[2024-01-24 20:23] LABS: Glucose, Whole Blood 124 mg/dL (60-115)
--- NOTE | 2024-01-25 10:43 | HO.PSYCHPN ---
Subjective Subjective Date of Service: 01/25/24 Reason For Visit: manic aggressive Subjective Notes: Conditional Voluntary Healthcare Proxy: Yes Guardianship: No Medical Problems Affecting Mental Status: No Interim History: Pt slept late this morning. Seen this afternoon. She is resting in bed. Awake, alert. Reports some loose stool and abdominal cramping. Other that this she reports feeling well. KUB ordered. Positive, looking forward to going home with her family. Denies feeling overmedicated. Compliant with compression stockings, walking around the unit briefly, interactive with team and peers at times. Today, reports no immediate concerns about going home. She does identify longer term concerns, including parents aging and their health issues, [place], her dog, aging and having health problems and how the future will change the family. Reassurance attempted which Zeinab was able to hear. Encouraged to focus on the present. In the present I am happy. Some delusional content still present, however with less distress today. Team working with Zeinab on strengthening her ADL skills prior to discharge. Medication Compliance: Yes Side effects from medications: Yes (a.m. sedation) Attending Groups: No Review of Systems Acute medical concerns: No KUB results are pending Medical Review of Systems: unchanged Review of Systems Gastrointestinal: Reports abdominal pain and Reports diarrhea Mental Status Exam Mental Status Exam Patient Appearance: Appropriate Patient Orientation: Person, Place and Situation Level of Consciousness: Alert Patient Behavior: Talkative and Good Eye Contact Mood Description: Happy, Nervous and Apprehensive Affect Description: Apprehensive Patient Cognition Impaired: Yes Ability to Follow Directions: Fair Speech Pattern: Spontaneous Speech Memory Description: Episodic Impaired Hallucinations: Visual (reported last evening, yet denies today) Delusions: Paranoid Ideation Perceptual Disturbances: Derealization Thought Process: Illogical (at times), Distracted, Rumination (at times) and Slowed Thinking Thought Content: positive for Circumstantial, positive for Perseveration and positive for Poverty of Content Depressive Symptoms: Increased Anxiety (at times) and Sleeping More Than Usual Judgement: Fair Diagnostics Vital Signs (24Hr): Vital Signs - 24 hr 01/24/24 12:48 01/24/24 12:48 01/24/24 20:00 Temperature 97.1 F Pulse Rate 93 81 Respiratory Rate 17 Blood Pressure 148/92 H 148/92 H 108/54 L Pulse Oximetry 95 Oxygen Delivery Method Room Air BMI result Body Mass Index 60.0 Labs 05/07/24 15:28 01/19/24 08:06 Labs: Laboratory Results - last 48 hr 01/23/24 01/24/24 01/24/24 20:56 10:19 19:47 POC Glucose 133 H 116 H 124 H Imaging Radiology Impressions: ITS Impressions Ankle X-Ray 01/03/24 19:05 IMPRESSION: 1. No radiographic evidence of bone destruction to suggest osteomyelitis. 2. Soft tissue swelling around the ankle. 3. Large posterior calcaneal spur. Ankle X-Ray 01/07/24 15:35 IMPRESSION: Marked soft tissue swelling without evidence of an acute osseous injury. Venous Duplex 01/08/24 10:03 IMPRESSION: No DVT demonstrated in the right lower extremity. This study was presented today 01/09/2024 for interpretation. Prompt priority results supplied at this time to the referring provider as requested by the provider. Medications Medications Current Medications Acetaminophen (Acetaminophen 325 Mg Tablet) 650 mg PO Q6H PRN PRN Reason: Headache/Pain Mild Scale (1-3) Last Admin: 01/08/24 14:12 Dose: 650 mg Al Hydroxide/Mg Hydroxide (Magnesium Hydrox/Alum Hydrox 30 Ml Oral.Susp) 30 ml PO Q6H PRN PRN Reason: Heartburn/Nausea Last Admin: 11/29/23 22:00 Dose: 30 ml Apixaban (Apixaban 5 Mg Tablet) 5 mg PO BID [facility] [place] Last Admin: 01/24/24 19:44 Dose: 5 mg Atenolol (Atenolol 25 Mg Tablet) 25 mg PO DAILY [facility] [place]; Protocol Last Admin: 01/24/24 12:48 Dose: 25 mg Benzocaine (Throat Lozenge, Medicated Lozenge) 1 lozenge MUCOUS MEM Q2H PRN PRN Reason: Sore Throat Benzocaine (Throat Lozenge, Medicated Lozenge) 1 lozenge MUCOUS MEM Q2H PRN PRN Reason: Sore Throat Clozapine (Clozapine 25 Mg Tablet) 125 mg PO DAILY@1930 [facility] [place] Last Admin: 01/24/24 19:44 Dose: 125 mg Divalproex Sodium (Divalproex Sodium Sprinkles 125 Mg Cap.DrDorothy) 500 mg PO BID [facility] [place] Last Admin: 01/24/24 19:44 Dose: 500 mg Docusate Sodium (Docusate Sodium 100 Mg Capsule) 100 mg PO BEDTIME [facility] Last Admin: 01/24/24 19:44 Dose: 100 mg Furosemide (Furosemide 40 Mg Tablet) 40 mg PO DAILY [facility]; Protocol Last Admin: 01/24/24 12:48 Dose: 40 mg Hydrocortisone (Hydrocortisone 1 % Cream 28.35 Gm Tube) 1 appl TOPICAL BID [facility]; Protocol Last Admin: 01/25/24 01:38 Dose: Not Given Hydroxyzine HCl (Hydroxyzine Hcl 25 Mg Tablet) 25 mg PO Q6H PRN PRN Reason: Anxiety Last Admin: 01/07/24 21:32 Dose: 25 mg Lactic Acid (Ammonium Lactate 12 % Lotion 226 Gm Bottle) 1 appl TOPICAL BID PRN; Protocol PRN Reason: Rash Last Admin: 12/26/23 09:45 Dose: 1 appl Lorazepam (Lorazepam 1 Mg Tablet) 1 mg PO BEDTIME PRN PRN Reason: insomnia,anxiety,agitation Last Admin: 01/09/24 01:52 Dose: 1 mg Lorazepam (Lorazepam 1 Mg Tablet) 1 mg PO Q6H PRN PRN Reason: severe anxiety Last Admin: 01/21/24 17:07 Dose: 1 mg Magnesium Hydroxide (Milk Of Magnesia 30 Ml Oral.Susp) 30 ml PO DAILY PRN PRN Reason: Constipation Last Admin: 12/18/23 10:35 Dose: 30 ml Metformin HCl (Metformin Hcl Er 500 Mg Tab.Er.24h) 500 mg PO DAILY [facility] Last Admin: 01/24/24 12:48 Dose: 500 mg Metronidazole (Metronidazole 0.75 % Gel 45 Gm Tube) 1 appl TOPICAL DAILY [facility] Last Admin: 01/24/24 13:36 Dose: 1 appl Multi-Ingred Cream/Lotion/Oil/Oint (Mineral Oil/Petrolatum,White 106 Gm Tube) 1 appl TOPICAL BID [facility] Last Admin: 01/25/24 01:38 Dose: Not Given Multi-Ingred Medicated Throat [place] (Throat [place], Medicated 177 Ml Bottle) 1 spray MUCOUS MEM Q2H PRN PRN Reason: Sore Throat Multivitamins/Vitamin C (Multivitamin Tablet) 1 tab PO DAILY [facility] Last Admin: 01/24/24 12:49 Dose: 1 tab Pt Own (Culturelle (Probiotics 1 Cap)) 1 cap PO DAILY [facility] Last Admin: 01/24/24 09:18 Dose: Not Given Nystatin (Nystatin Powder 15 Gm Bottle) 1 appl TOPICAL BID PRN; Protocol PRN Reason: Rash Last Admin: 01/24/24 13:36 Dose: 1 appl Olanzapine (Olanzapine 5 Mg Tablet) 5 mg PO TID PRN PRN Reason: agitation Last Admin: 01/07/24 21:32 Dose: 5 mg Allergies Allergies Allergy/AdvReac Type Severity Reaction Status Date / Time kiwi [KIWI] Allergy Mild HIVES Verified 11/21/23 05:49 mold [MOLD EXTRACTS*] Allergy Mild HIVES Verified 11/21/23 05:49 Assessment & Plan Assessment & Plan (1) Schizoaffective disorder, bipolar type: Status: Acute Code(s): F25.0 - Schizoaffective disorder, bipolar type (2) Venous stasis: Status: Acute Code(s): I87.8 - Other specified disorders of veins Assessment and Plan: Hosp note 12/31/23: Pt seen at bedside at RN request for patient reassurance regarding BLE edema. Pt has had multiple evaluation for chronic ble edema with chronic venous stasis dermatitis. She has been complaint with compression stockings and improved hygeine overall. Today, appearance of BLE is actually markedly improved. There is still faint erythema of the distal aspect of the BLE and the posterior RLE but overall much improved. No significant warmth. Superfical lesion dorsum R foot well healing. Noevidence of infection. Continue with conservative measures as previously discussed (3) Chronic cellulitis: Status: Acute Code(s): L03.90 - Cellulitis, unspecified Plan 12/01/23: Continue current tx and plan 12/02/23: Continue current plan and tx Change Chlorpromazine daytime doses to prn. 12/03/23 - seems more labile with mother present - reassuring eval by hospitalist today- they are following closely with us but encouraging and supporting patient with compliance with stockings and leg elevation seem paramount 12/04/23- limited mobility did wear kenzie stockings- but won't wear slippers/shoes- difficulty raising her feet up - ongoing hypersexual content of thought/somatic preoccupation of PCOS- wanting to sign 3d 12/05/23 Patient mostly in her room limited mobility somatic preoccupations patient did sign a 3 day unrealistic expectation regarding outpatient setting 12/08/23 Change Chlorpromazine 100 mg HS to prn Decrease Valproate from 3000 mg daily to 2000 mg daily Sustenna 234 mg IM given today by team. 12/09/23 Continue to monitor for daytime sedation. 12/11/23 Continue treatment 12/12/23 Sx of bacterial vaginosis-antibiotic initiated. 12/14/23: Labs ordered for the a.m. 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 Patient labile episodes of being expansive overwhelmed anxiety times somatic paranoid delusional material did receive Invega injection 1 week ago should be a therapeutic dose unfortunately has. 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 Metronidazole gel QD for BV Cris Carballo's consult much appreciated. 01/01 O2 2L at HS Continue current regime Respiratory therapy consult much appreciated. 12/23 disorganized in speech and behavior; making sexualized comments to staff 12/24 little more calm today; still disorganized; continue current treatment plan 12/26/23: Continue current plan. Urology consult much appreciated. 12/28/23: Clozaril consideration. 12/29/23: Father is in agreement to trial Clozapine. Application submitted to [facility] 12/30/23: Preparing for Clozapine. Begin Depakote decrease by 500 mg daily. Father/HCP reviewing Clozapine [facility] If he is in agreement, will stop Chlorpromazine, obtain EKG and move forward with Clozapine initiation. 12/30: continue current management and treatment plan. 12/31: continue current management and treatment plan. 01/06/24: Continue plan.01/06: strongly encouraged Invega long-acting injectable. Patient reports he might take this tomorrow. Does endorse right foot swelling. Aware bilateral lower limb swelling has been a chronic issue. There is bilateral redness and some tenderness. No discharge or Increase temperature. That being said right lower limb and foot do appear larger than the left side, with some tenderness. Patient was unsure if she rolled her ankle at 1 point while pacing a lot. Will order ankle x-ray and also non urgent lower limb venous Doppler. After same will consider hospitalist consult. 01/07: accepted invega sustenna today. Doppler and xray results pending 01/08: Doppler/XRay results are negative. Continue current plan of care and regime. 01/09: WBC 7.9, ANC 4.3 Continue Clozapine trial. 01/12/24: Continue Clozapine 50 mg HS 01/13/24: Afternoon sedation. Continue Clozapine 50 mg HS Decrease Depakote to 1000 mg bid from 1250 m 01/14/24 decrease depakote tp 500mg bid due to xs sedation all day and night, with incontinence- continue clozapine 50mg qhs 01/15/24 more alert today; lowered her dpeakote down to 500mg bid- seems more awake tonight slept all night and still had incontinence and couldn't make it to bathroom this am- 01/16/24 No changes today. 01/18/24 Continue current regime/plan. Tentative discharge to home next week. 01/20/24 Continue current regime/plan. 01/20 increase clozapine 100 mg 01/21 continue current treatment plan with clozapine that 100 mg q.h.s. 01/23/24 Increase Clozapine to 125 mg HS 01/24/24 Continue current regime 01/24: No changes today, continue current regime and plan. Reason for continued inpatient stay Substantial Risk for: rapid decompensation Time Spent With Patient Time: Total time managing care of this patient today ____ minutes.
[2024-01-25 11:25] VITALS: BP 135/64; PULSE 100; RESP 16; TEMP 36.2; O2SAT 94
[2024-01-25] MEDS: Multivitamin TABLET 1 TAB PO (11:27)
[2024-01-25] MEDS: metFORMIN HCl ER 500 MG TAB.ER.24H PO (11:27)
[2024-01-25] MEDS: Apixaban 5 MG TABLET PO ×2 (11:27→20:59)
[2024-01-25 11:31] VITALS: BP 135/64
[2024-01-25] MEDS: Furosemide 40 MG TABLET PO (11:31)
[2024-01-25 11:32] VITALS: BP 135/64; PULSE 100
[2024-01-25] MEDS: atenoloL 25 MG TABLET PO (11:32)
[2024-01-25] MEDS: Divalproex Sodium Sprinkles 125 MG CAP.DR.SPR 500 MG PO ×2 (11:32→20:59)
[2024-01-25 11:45] LABS: Glucose, Whole Blood 119 mg/dL (60-115)
[2024-01-25] MEDS: cloZAPine 25 MG TABLET 125 MG PO (20:59)
[2024-01-25] MEDS: Docusate Sodium 100 MG CAPSULE PO (20:59)
[2024-01-25 22:20] VITALS: BP 137/72; PULSE 84; RESP 16; TEMP 36.2; O2SAT 94
[2024-01-25 22:29] LABS: Glucose, Whole Blood 123 mg/dL (60-115)
[2024-01-26 07:00] VITALS: BMI 57.3
[2024-01-26 08:00] VITALS: BP 139/87; PULSE 81; RESP 16; TEMP 36.9; O2SAT 96
[2024-01-26 08:39] LABS: Glucose, Whole Blood 121 mg/dL (60-115)
[2024-01-26] MEDS: Furosemide 40 MG TABLET PO (08:48)
[2024-01-26] MEDS: Multivitamin TABLET 1 TAB PO (08:48)
[2024-01-26] MEDS: Apixaban 5 MG TABLET PO ×2 (08:48→20:38)
[2024-01-26] MEDS: metFORMIN HCl ER 500 MG TAB.ER.24H PO (08:48)
[2024-01-26] MEDS: atenoloL 25 MG TABLET PO (08:48)
[2024-01-26] MEDS: Divalproex Sodium Sprinkles 125 MG CAP.DR.SPR 500 MG PO ×2 (08:49→20:38)
[2024-01-26] MEDS: Mineral Oil/Petrolatum,White 106 GM Tube 1 APPL TOPICAL (08:54)
[2024-01-26] MEDS: Hydrocortisone 1 % Cream 28.35 GM TUBE 1 APPL TOPICAL (08:54)
[2024-01-26] MEDS: metroNIDAZOLE 0.75 % Gel 45 GM TUBE 1 APPL TOPICAL (08:54)
[2024-01-26 14:58] LABS: Creatinine Clr Calc Pharmacy 212.8; Estimated Glomerular Filt Rate > 60
--- NOTE | 2024-01-26 19:22 | P.PNPSI_ITS ---
Subjective Subjective Date of Service: 01/26/24 Reason For Visit: manic aggressive Subjective Notes: Conditional Voluntary Healthcare Proxy: Yes Guardianship: No Medical Problems Affecting Mental Status: No Interim History: Met with pt to review discharge. She reports feeling very happy to go home. She denies feeling overmedicated, but I sleep late . Discussed Clozapine increases and needing time to adjust to these. KUB read today and is negative Will meet with parents prior to discharge tomorrow to review care plan. Medication Compliance: Yes Side effects from medications: No Attending Groups: No Review of Systems Acute medical concerns: No Medical Review of Systems: unchanged Review of Systems Review of Systems Denies abdominal pain today when asked KUB is clear Mental Status Exam Mental Status Exam Patient Appearance: Appropriate Patient Orientation: Person, Place and Situation Level of Consciousness: Alert Patient Behavior: Talkative and Good Eye Contact Mood Description: Happy, Nervous and Apprehensive Affect Description: Apprehensive Patient Cognition Impaired: Yes Ability to Follow Directions: Fair Speech Pattern: Spontaneous Speech Memory Description: Episodic Impaired Delusions: Present (at times, and decreasing) Thought Process: Illogical (at times), Distracted, Rumination (at times) and Slowed Thinking Thought Content: positive for Circumstantial Depressive Symptoms: Increased Anxiety (at times) and Sleeping More Than Usual Judgement: Fair Diagnostics Vital Signs (24Hr): Vital Signs - 24 hr 01/25/24 22:20 01/26/24 08:00 Temperature 97.2 F 98.5 F Pulse Rate 84 81 Respiratory Rate 16 16 Blood Pressure 137/72 139/87 Pulse Oximetry 94 96 Oxygen Delivery Method Room Air Room Air BMI result Body Mass Index 57.3 Labs 01/10/24 15:28 01/26/24 14:27 Labs: Laboratory Results - last 48 hr 01/24/24 01/25/24 01/25/24 19:47 11:40 22:24 Creatinine Estim Creat Clear Calc Estimated GFR POC Glucose 124 H 119 H 123 H 01/26/24 01/26/24 08:34 14:27 Creatinine 0.68 Estim Creat Clear Calc 212.8 Estimated GFR > 60 POC Glucose 121 H Imaging Radiology Impressions: ITS Impressions Ankle X-Ray 01/03/24 19:05 IMPRESSION: 1. No radiographic evidence of bone destruction to suggest osteomyelitis. 2. Soft tissue swelling around the ankle. 3. Large posterior calcaneal spur. Ankle X-Ray 01/07/24 15:35 IMPRESSION: Marked soft tissue swelling without evidence of an acute osseous injury. Venous Duplex 01/08/24 10:03 IMPRESSION: No DVT demonstrated in the right lower extremity. This study was presented today 01/09/2024 for interpretation. Prompt priority results supplied at this time to the referring provider as requested by the provider. KUB X-Ray 01/25/24 14:55 IMPRESSION: Unremarkable examination. Medications Medications Current Medications Acetaminophen (Acetaminophen 325 Mg Tablet) 650 mg PO Q6H PRN PRN Reason: Headache/Pain Mild Scale (1-3) Last Admin: 01/08/24 14:12 Dose: 650 mg Al Hydroxide/Mg Hydroxide (Magnesium Hydrox/Alum Hydrox 30 Ml Oral.Susp) 30 ml PO Q6H PRN PRN Reason: Heartburn/Nausea Last Admin: 11/29/23 22:00 Dose: 30 ml Apixaban (Apixaban 5 Mg Tablet) 5 mg PO BID [facility] Last Admin: 01/26/24 08:48 Dose: 5 mg Atenolol (Atenolol 25 Mg Tablet) 25 mg PO DAILY [facility]; Protocol Last Admin: 01/26/24 08:48 Dose: 25 mg Benzocaine (Throat Lozenge, Medicated Lozenge) 1 lozenge MUCOUS MEM Q2H PRN PRN Reason: Sore Throat Benzocaine (Throat Lozenge, Medicated Lozenge) 1 lozenge MUCOUS MEM Q2H PRN PRN Reason: Sore Throat Clozapine (Clozapine 25 Mg Tablet) 125 mg PO DAILY@1930 [facility] Last Admin: 01/25/24 20:59 Dose: 125 mg Divalproex Sodium (Divalproex Sodium Sprinkles 125 Mg Darvin.) 500 mg PO BID [facility] Last Admin: 01/26/24 08:49 Dose: 500 mg Docusate Sodium (Docusate Sodium 100 Mg Capsule) 100 mg PO BEDTIME [facility] Last Admin: 01/25/24 20:59 Dose: 100 mg Furosemide (Furosemide 40 Mg Tablet) 40 mg PO DAILY [facility]; Protocol Last Admin: 01/26/24 08:48 Dose: 40 mg Hydrocortisone (Hydrocortisone 1 % Cream 28.35 Gm Tube) 1 appl TOPICAL BID [facility]; Protocol Last Admin: 01/26/24 08:54 Dose: 1 appl Hydroxyzine HCl (Hydroxyzine Hcl 25 Mg Tablet) 25 mg PO Q6H PRN PRN Reason: Anxiety Last Admin: 01/07/24 21:32 Dose: 25 mg Lactic Acid (Ammonium Lactate 12 % Lotion 226 Gm Bottle) 1 appl TOPICAL BID PRN; Protocol PRN Reason: Rash Last Admin: 12/26/23 09:45 Dose: 1 appl Lorazepam (Lorazepam 1 Mg Tablet) 1 mg PO BEDTIME PRN PRN Reason: insomnia,anxiety,agitation Last Admin: 01/09/24 01:52 Dose: 1 mg Lorazepam (Lorazepam 1 Mg Tablet) 1 mg PO Q6H PRN PRN Reason: severe anxiety Last Admin: 01/21/24 17:07 Dose: 1 mg Magnesium Hydroxide (Milk Of Magnesia 30 Ml Oral.Susp) 30 ml PO DAILY PRN PRN Reason: Constipation Last Admin: 12/18/23 10:35 Dose: 30 ml Metformin HCl (Metformin Hcl Er 500 Mg Tab.Er.24h) 500 mg PO DAILY [facility] Last Admin: 01/26/24 08:48 Dose: 500 mg Metronidazole (Metronidazole 0.75 % Gel 45 Gm Tube) 1 appl TOPICAL DAILY [facility] Last Admin: 01/26/24 08:54 Dose: 1 appl Multi-Ingred Cream/Lotion/Oil/Oint (Mineral Oil/Petrolatum,White 106 Gm Tube) 1 appl TOPICAL BID [facility] Last Admin: 01/26/24 08:54 Dose: 1 appl Multi-Ingred Medicated Throat Gore (Throat Gore, Medicated 177 Ml Bottle) 1 spray MUCOUS MEM Q2H PRN PRN Reason: Sore Throat Multivitamins/Vitamin C (Multivitamin Tablet) 1 tab PO DAILY [facility] Last Admin: 01/26/24 08:48 Dose: 1 tab Pt Own (Culturelle (Probiotics 1 Cap)) 1 cap PO DAILY [facility] Last Admin: 01/26/24 08:57 Dose: Not Given Nystatin (Nystatin Powder 15 Gm Bottle) 1 appl TOPICAL BID PRN; Protocol PRN Reason: Rash Last Admin: 01/24/24 13:36 Dose: 1 appl Olanzapine (Olanzapine 5 Mg Tablet) 5 mg PO TID PRN PRN Reason: agitation Last Admin: 01/07/24 21:32 Dose: 5 mg Allergies Allergies Allergy/AdvReac Type Severity Reaction Status Date / Time kiwi [KIWI] Allergy Mild HIVES Verified 11/21/23 05:49 mold [MOLD EXTRACTS*] Allergy Mild HIVES Verified 11/21/23 05:49 Assessment & Plan Assessment & Plan (1) Schizoaffective disorder, bipolar type: Status: Acute Code(s): F25.0 - Schizoaffective disorder, bipolar type (2) Venous stasis: Status: Acute Code(s): I87.8 - Other specified disorders of veins Assessment and Plan: Hosp note 12/31/23: Pt seen at bedside at RN request for patient reassurance regarding BLE edema. Pt has had multiple evaluation for chronic ble edema with chronic venous stasis dermatitis. She has been complaint with compression stockings and improved hygeine overall. Today, appearance of BLE is actually markedly improved. There is still faint erythema of the distal aspect of the BLE and the posterior RLE but overall much improved. No significant warmth. Superfical lesion dorsum R foot well healing. Noevidence of infection. Continue with conservative measures as previously discussed (3) Chronic cellulitis: Status: Acute Code(s): L03.90 - Cellulitis, unspecified Plan 12/01/23: Continue current tx and plan 12/02/23: Continue current plan and tx Change Chlorpromazine daytime doses to prn. 12/03/23 - seems more labile with mother present - reassuring eval by hospitalist today- they are following closely with us but encouraging and supporting patient with compliance with stockings and leg elevation seem paramount 12/04/23- limited mobility did wear kenzie stockings- but won't wear slippers/shoes- difficulty raising her feet up - ongoing hypersexual content of thought/somatic preoccupation of PCOS- wanting to sign 3d 12/05/23 Patient mostly in her room limited mobility somatic preoccupations patient did sign a 3 day unrealistic expectation regarding outpatient setting 12/08/23 Change Chlorpromazine 100 mg HS to prn Decrease Valproate from 3000 mg daily to 2000 mg daily Sustenna 234 mg IM given today by team. 12/09/23 Continue to monitor for daytime sedation. 12/11/23 Continue treatment 12/12/23 Sx of bacterial vaginosis-antibiotic initiated. 12/14/23: Labs ordered for the a.m. 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 Patient labile episodes of being expansive overwhelmed anxiety times somatic paranoid delusional material did receive Invega injection 1 week ago should be a therapeutic dose unfortunately has. 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 Metronidazole gel QD for BV Cris Carballo's consult much appreciated. 01/01 O2 2L at HS Continue current regime Respiratory therapy consult much appreciated. 12/23 disorganized in speech and behavior; making sexualized comments to staff 12/24 little more calm today; still disorganized; continue current treatment plan 12/26/23: Continue current plan. Urology consult much appreciated. 12/28/23: Clozaril consideration. 12/29/23: Father is in agreement to trial Clozapine. Application submitted to [facility] 12/30/23: Preparing for Clozapine. Begin Depakote decrease by 500 mg daily. Father/HCP reviewing Clozapine [facility] If he is in agreement, will stop Chlorpromazine, obtain EKG and move forward with Clozapine initiation. 12/30: continue current management and treatment plan. 12/31: continue current management and treatment plan. 01/06/24: Continue plan.01/06: strongly encouraged Invega long-acting injectable. Patient reports he might take this tomorrow. Does endorse right foot swelling. Aware bilateral lower limb swelling has been a chronic issue. There is bilateral redness and some tenderness. No discharge or Increase temperature. That being said right lower limb and foot do appear larger than the left side, with some tenderness. Patient was unsure if she rolled her ankle at 1 point while pacing a lot. Will order ankle x-ray and also non urgent lower limb venous Doppler. After same will consider hospitalist consult. 01/07: accepted invega sustenna today. Doppler and xray results pending 01/08: Doppler/XRay results are negative. Continue current plan of care and regime. 01/09: WBC 7.9, ANC 4.3 Continue Clozapine trial. 01/12/24: Continue Clozapine 50 mg HS 01/13/24: Afternoon sedation. Continue Clozapine 50 mg HS Decrease Depakote to 1000 mg bid from 1250 m 01/14/24 decrease depakote tp 500mg bid due to xs sedation all day and night, with incontinence- continue clozapine 50mg qhs 01/15/24 more alert today; lowered her dpeakote down to 500mg bid- seems more awake tonight slept all night and still had incontinence and couldn't make it to bathroom this am- 01/16/24 No changes today. 01/18/24 Continue current regime/plan. Tentative discharge to home next week. 01/20/24 Continue current regime/plan. 01/20 increase clozapine 100 mg 01/21 continue current treatment plan with clozapine that 100 mg q.h.s. 01/23/24 Increase Clozapine to 125 mg HS 01/24/24 Continue current regime 01/24: No changes today, continue current regime and plan. 01/25: Discharge 01/26. Reason for continued inpatient stay Substantial Risk for: stable for discharge, rapid decompensation and med/psych decompensation Time Spent With Patient Time: Total time managing care of this patient today ____ minutes.
[2024-01-26 19:55] VITALS: BP 109/58; PULSE 85; RESP 18; TEMP 37.1; O2SAT 94
[2024-01-26 20:27] LABS: Glucose, Whole Blood 152 mg/dL (60-115)
[2024-01-26] MEDS: cloZAPine 25 MG TABLET 125 MG PO (20:38)
[2024-01-26] MEDS: Docusate Sodium 100 MG CAPSULE PO (20:38)
[2024-01-26] MEDS: hydrOXYzine HCL 25 MG TABLET PO (20:38)
[2024-01-27 08:12] LABS: Glucose, Whole Blood 125 mg/dL (60-115)
[2024-01-27] MEDS: Multivitamin TABLET 1 TAB PO (09:37)
[2024-01-27] MEDS: atenoloL 25 MG TABLET PO (09:37)
[2024-01-27] MEDS: Apixaban 5 MG TABLET PO (09:37)
[2024-01-27] MEDS: Divalproex Sodium Sprinkles 125 MG CAP.DR.SPR 500 MG PO (09:37)
[2024-01-27] MEDS: metFORMIN HCl ER 500 MG TAB.ER.24H PO (09:38)
[2024-01-27] MEDS: Furosemide 40 MG TABLET PO (09:38)
[2024-01-27 10:44] LABS: MANUAL DIFF FLAG NO
[2024-01-27 10:46] LABS: Basophils Absolute Auto 0.1 X10*3/uL (0.0-0.2); Basophils Percent Auto 0.7 % (0-2); Eosinophils Absolute Auto 0.3 X10*3/uL (0.0-0.4); Eosinophils Percent Auto 3.1 % (0-4); Hematocrit 42.2 % (37.0-47.0); Hemoglobin 14.1 g/dl (12.0-16.0); Imm Gran Abs Auto 0.03 X10*3/uL (0.00-0.03); Imm Gran Pct Auto 0.3 % (0.0-0.4); Lymphocytes Absolute Auto 3.2 X10*3/uL (1.2-4.9); Lymphocytes Percent Auto 36.3 % (20-40); Mean Corpuscular HGB Conc 33.4 g/dl (31.0-35.0); Mean Corpuscular Hemoglobin 27.7 pg (27.0-33.0); Mean Corpuscular Volume 82.9 fL (80.0-98.0); Mean Platelet Volume 9.8 fL (9.4-12.3); Monocytes Absolute Auto 0.5 X10*3/uL (0.1-1.2); Monocytes Percent Auto 5.5 % (2-11); Neut%MD 53.9 %; Neutrophils Absolute Auto 4.6 x10*3/uL (2.0-8.3); Neutrophils Absolute Auto 4.7 x10*3/uL (2.0-8.3); Neutrophils Percent Auto 54.1 % (45-73); Platelet Count 194 X10*3/uL (160-400); Red Blood Count 5.09 X10*6/uL (4.20-5.50); Red Cell Distribution Width 13.4 % (11.0-16.0); WBCANC 8.5 X10*3/uL; White Blood Count 8.8 X10*3/uL (4.8-10.8)
[2024-01-27 11:00] LABS: Alanine Aminotransferase 33 U/L (0-31); Albumin Level 4.6 g/dL (3.5-5.0); Alkaline Phosphatase 71 U/L (39-117); Anion Gap 17 (12-20); Aspartate Amino Transferase 24 U/L (5-31); Bilirubin Total 0.5 mg/dL (0.0-1.0); Blood Urea Nitrogen 10 mg/dL (9-16); Calcium 10.1 mg/dL (8.4-10.2); Carbon Dioxide 27 mmol/L (22-29); Chloride 105 mmol/L (96-108); Creatinine Clr Calc Pharmacy 195.6; Estimated Glomerular Filt Rate > 60; Glucose Random 184 mg/dL (60-115); Sodium 145 mmol/L (135-145); Total Protein 7.7 g/dL (6.5-8.0)
--- NOTE | 2024-01-27 17:20 | PM.PSYDC ---
DS: Providers Provider Date of Service: 01/27/24 Date of admission: 11/22/23 12:17 Date of discharge: 01/27/24 Primary care physician: Unknown Physician Admitting clinician: Rianna Santos Attending physician on admission: James Argueta Consults: 11/24/23 12:29 Consult to Hospitalist Routine Comment: recent medical admit, sepsis, cellulitis Consulting Provider: Hospitalist Reason For Exam: Cellulitis beginning Right foot 11/24/23 12:32 Consult to Wound Care Routine Reason for consultation: Beginning cellulitis R foot, hx of sepsis, BLE 11/30/23 15:41 Consult to Infectious Diseases Routine Consulting Provider: [facility] Reason for consultation: ?cellulitis, BLE edema 11/30/23 15:42 Consult to General Surgery Routine Consulting Provider: [facility] Reason for consultation: ?need for biopsy ble per ID. ?vasculitis 12/05/23 17:09 Consult to Wound Care Routine Reason for consultation: reassess lower legs, under left breast and under pannus 12/22/23 05:57 Consult to Psychiatry Routine Consulting Provider: James Argueta Reason for consultation: ECT consult 12/23/23 09:38 Consult to Urology Routine Consulting Provider: [facility] Reason for consultation: persistant UTI/BV. Delirium sx. ?consult for prophylactic abx Has provider been notified: No Attending physician on discharge: James Argueta DS: Diagnosis Discharge Diagnosis (1) Schizoaffective disorder, bipolar type: Status: Acute (2) Venous stasis: Status: Acute (3) Chronic cellulitis: Status: Acute DS: Medications Discharge Medications Home Medications: Previous Rx's ?Medication ?Instructions ?Recorded ammonium lactate 12 % lotion 1 appl topical BID PRN Rash #60 01/26/24 multiple units apixaban 5 mg tablet (Eliquis) 5 mg PO BID #60 tabs 01/26/24 atenolol 25 mg tablet 25 mg PO DAILY #90 tabs 01/26/24 clozapine 100 mg tablet 100 mg PO BEDTIME #7 tabs 01/26/24 clozapine 25 mg tablet 25 mg PO BEDTIME #7 tabs 01/26/24 divalproex 125 mg capsule,delayed 500 mg (4 x 125 mg) PO BID #240 01/26/24 release sprinkle (Depakote caps Sprinkles) docusate sodium 100 mg capsule 100 mg PO BEDTIME #90 caps 01/26/24 (Colace) furosemide 40 mg tablet 40 mg PO DAILY #90 tabs 01/26/24 hydrocortisone 1 % topical cream 1 appl topical BID #60 multiple 01/26/24 units lorazepam 1 mg tablet 1 mg PO BEDTIME PRN 01/26/24 insomnia,anxiety,agitation #30 tabs metformin 500 mg tablet,extended 500 mg PO DAILY #90 tabs 01/26/24 release 24 hr metronidazole 0.75 % topical gel 1 appl topical DAILY #30 multiple 01/26/24 units multivitamin (Daily Multi-Vitamin 1 tab PO DAILY #90 tabs 01/26/24 tablet) nystatin 100,000 unit/gram topical 1 appl topical BID PRN Rash #60 01/26/24 powder multiple units white petrolatum-mineral oil 1 appl topical BID #60 multiple 01/26/24 topical cream (Dermacerin topical units cream) Mental Status Exam Mental Status Exam Patient Appearance: Appropriate Patient Orientation: Person, Place and Situation Level of Consciousness: Alert Patient Behavior: Talkative and Good Eye Contact Mood Description: Happy, Nervous and Apprehensive Affect Description: Apprehensive Patient Cognition Impaired: Yes Ability to Follow Directions: Fair Speech Pattern: Spontaneous Speech Memory Description: Episodic Impaired Delusions: Present (at times, and decreasing) Thought Process: Illogical (at times), Distracted, Rumination (at times) and Slowed Thinking Thought Content: positive for Circumstantial Depressive Symptoms: Increased Anxiety (at times) and Sleeping More Than Usual Judgement: Fair Data Data Completed and Pending Completed studies during hospitalization [Text1]: 01/20/24 01/21/24 01/21/24 20:08 11:12 22:34 WBC RBC Hgb Hct MCV MCH MCHC RDW Plt Count MPV Immature Gran % (Auto) Neut % (Auto) Lymph % (Auto) Coles % (Auto) Eos % (Auto) Baso % (Auto) Lymph # (Auto) Coles # (Auto) Eos # (Auto) Baso # (Auto) Abs Immat Gran (auto) Absolute Neuts (auto) Absolute Nucleated RBC Nucleated RBC % (auto) Sodium Potassium Chloride Carbon Dioxide Anion Gap BUN Creatinine Estim Creat Clear Calc Estimated GFR POC Glucose 149 H 117 H 176 H Random Glucose Calcium Total Bilirubin AST ALT Alkaline Phosphatase Total Protein Albumin 05/19/24 05/20/24 05/21/24 10:11 20:56 10:19 WBC RBC Hgb Hct MCV MCH MCHC RDW Plt Count MPV Immature Gran % (Auto) Neut % (Auto) Lymph % (Auto) Coles % (Auto) Eos % (Auto) Baso % (Auto) Lymph # (Auto) Coles # (Auto) Eos # (Auto) Baso # (Auto) Abs Immat Gran (auto) Absolute Neuts (auto) Absolute Nucleated RBC Nucleated RBC % (auto) Sodium Potassium Chloride Carbon Dioxide Anion Gap BUN Creatinine Estim Creat Clear Calc Estimated GFR POC Glucose 113 133 H 116 H Random Glucose Calcium Total Bilirubin AST ALT Alkaline Phosphatase Total Protein Albumin 01/24/24 01/25/24 01/25/24 19:47 11:40 22:24 WBC RBC Hgb Hct MCV MCH MCHC RDW Plt Count MPV Immature Gran % (Auto) Neut % (Auto) Lymph % (Auto) Coles % (Auto) Eos % (Auto) Baso % (Auto) Lymph # (Auto) Coles # (Auto) Eos # (Auto) Baso # (Auto) Abs Immat Gran (auto) Absolute Neuts (auto) Absolute Nucleated RBC Nucleated RBC % (auto) Sodium Potassium Chloride Carbon Dioxide Anion Gap BUN Creatinine Estim Creat Clear Calc Estimated GFR POC Glucose 124 H 119 H 123 H Random Glucose Calcium Total Bilirubin AST ALT Alkaline Phosphatase Total Protein Albumin 01/26/24 01/26/24 01/26/24 08:34 14:27 20:24 WBC RBC Hgb Hct MCV MCH MCHC RDW Plt Count MPV Immature Gran % (Auto) Neut % (Auto) Lymph % (Auto) Coles % (Auto) Eos % (Auto) Baso % (Auto) Lymph # (Auto) Coles # (Auto) Eos # (Auto) Baso # (Auto) Abs Immat Gran (auto) Absolute Neuts (auto) Absolute Nucleated RBC Nucleated RBC % (auto) Sodium Potassium Chloride Carbon Dioxide Anion Gap BUN Creatinine 0.68 Estim Creat Clear Calc 212.8 Estimated GFR > 60 POC Glucose 121 H 152 H Random Glucose Calcium Total Bilirubin AST ALT Alkaline Phosphatase Total Protein Albumin 01/27/24 01/27/24 01/27/24 08:07 10:38 10:38 WBC 8.8 RBC 5.09 Hgb 14.1 Hct 42.2 MCV 82.9 MCH 27.7 MCHC 33.4 RDW 13.4 Plt Count 194 MPV 9.8 Immature Gran % (Auto) 0.3 Neut % (Auto) 54.1 Lymph % (Auto) 36.3 Coles % (Auto) 5.5 Eos % (Auto) 3.1 Baso % (Auto) 0.7 Lymph # (Auto) 3.2 Coles # (Auto) 0.5 Eos # (Auto) 0.3 Baso # (Auto) 0.1 Abs Immat Gran (auto) 0.03 Absolute Neuts (auto) 4.6 4.7 Absolute Nucleated RBC 0.000 Nucleated RBC % (auto) 0.0 Sodium 145 Potassium 4.0 Chloride 105 Carbon Dioxide 27 Anion Gap 17 BUN 10 Creatinine 0.74 Estim Creat Clear Calc 195.6 Estimated GFR > 60 POC Glucose 125 H Random Glucose 184 H Calcium 10.1 Total Bilirubin 0.5 AST 24 ALT 33 H Alkaline Phosphatase 71 Total Protein 7.7 Albumin 4.6 12/03/23 12:01 Blood - Venous Blood Culture - Final No growth after 5 days. 12/03/23 12:01 Blood - Venous Blood Culture - Final No growth after 5 days. Imaging Diagnostic Imaging Impressions Ankle X-Ray 01/03/24 19:05 IMPRESSION: 1. No radiographic evidence of bone destruction to suggest osteomyelitis. 2. Soft tissue swelling around the ankle. 3. Large posterior calcaneal spur. Ankle X-Ray 01/07/24 15:35 IMPRESSION: Marked soft tissue swelling without evidence of an acute osseous injury. Venous Duplex 01/08/24 10:03 IMPRESSION: No DVT demonstrated in the right lower extremity. This study was presented today 01/09/2024 for interpretation. Prompt priority results supplied at this time to the referring provider as requested by the provider. KUB X-Ray 01/25/24 14:55 IMPRESSION: Unremarkable examination. DS: Summary Hospital Course Hospital Course: Admission to adult psychiatry for exacerbation of schizoaffective disorder, bipolar type with acute psychosis and agitation preventing pt from remaining at home with her family. Medications were evaluated and several changes were made. Haldol, Olanzapine in high doses were not effective in symptom management. Valproate, to 3000 mg daily, with a level over 100 was ineffective in symptom management. Chlorpromazine was helpful in moderate doses. Clozapine was initiated and pt has tolerated 125 mg daily and will discharge on this dosage however will most likely require dosage increases in the future. Pt has several medical issues which required intervention. Vascular dermatitis, edema (recovering from a severe cellulitis with sepsis) are managed with daily care and compression stockings. Skin fold breakdown also requires daily mgt with careful skin care assessment and intervention. VALERI is managed with O2 at 2L at night via nasal cannula (pt refuses CPAP), HTN and elevated blood sugar levels also require monitoring. Psychosocially, pt has a strong family support system, however, her father, with whom she lives has been critically ill and has required SNF care for a few months. He has just returned home and is anxious to have pt return home as well. Mother lives in [place], [place] and is very attentive to pt and her needs, traveling to this area several times per week to visit and assist her. This will continue. Sister, lives locally and is a daily support for pt. Pt, upon discharge is essentially symptomatic intermittently with some delusional, tangential content. Her mood however has been stable and without behavioral dyscontrol. Family is aware of this and crisis plans are in place should pt have further breakthrough symptoms. She discharges with VNA, Primary Care, Gynecology, Psychiatry, Psychotherapy, ACCS, Home Care, [facility] and Clozapine support resources. Status at Discharge Functional status at discharge: independent ambulation Overall status at discharge: patient is progressing back to baseline Time Spent with Patient Time attestation: Total time managing care of this patient today ____ minutes. Time spent: Less than 30 minutes Discharge Plan Discharge Anticipated Discharge Date/Time: 01/27/24 12:00 Patient Disposition: Home, Self-Care Discharge Diagnosis: Schizoaffective Disorder, Bipolar Type Referrals: [facility] [Other] - 01/28/24 (Assistance with Medication Compliance, PT, OT The nurse should be calling you today to arrange a time to come out Tuesday, 01/27. If you do not hear from a nurse by 4:30pm, call the above number to check-in. ) PCP: Jose Estes ([facility]) [Other] - 01/31/24 1:00 pm (Monitoring of HTN, blood sugar, edema and consider additional referral to dermatology (skin folds, fungal, skin break down), vascular (for edema) and pulmonology (as she has obstructive sleep apnea and due to inability to tolerate CPAP, is on oxyen)) OBGYN: Dr. Taylor Lr ([facility]) [Other] - 02/21/24 2:30 pm (Concerns for endometriosis, PCOS, bladder suspension; it is recommended she needs an internal ultrasound to determine cause of her ongoing complaints of abdominal pain; chronic UTI?s, yeast and bacterial vaginosis infections ) Psychiatrist:Dr. Nathan Genao ([facility]) [Other] - 02/16/24 9:00 am (Appointment is in person at the office. It is recommended Clozaril continue to be titrated if symptoms of bizarre, paranoid or nonsensical statements remain ) [facility] Direct Care Worker: Purvi Sevilla ([facility]) [Other] - 01/27/24 1:30 pm (Purvi Brock will assist with transportation for weekly lab draws and to appointments when able to. Please call her for additional support as needed. She will be checking in with Zeinab at home this afternoon. ) Therapist: Maribel Joshua ([facility]) [Other] - 1 Week (Maribel has been made aware therapy appointment needs to be scheduled and has been asked to contact Zeinab to set up appointment. You may request a Telehealth appointment if more convenient. You can also ask your [facility] team for assistance in obtaining appointment if you do not hear from Maribel by Wednesday 01/31. ) [employer] Specialist: Tolu Drake ([facility]) [Other] - 02/08/24 10:00 am Home Health Aide: [facility] [Other] - 1 Week (Family is private paying for an [employer] VEHICLE OPERATOR to assist with ADL's. It is recommended every other day but 3 days a week have been requested and was decided MWF for two hours in the afternoon was preferred. Mustapha should be contacting Zeinab's father, to start services on Tuesday, 01/29 or Tuesday 01/30. ) Clozaril Weekly Labs:[facility] ([facility]) [Other] - 02/01/24 (Present to the lab weekly, on , to have your labs drawn to continue Clozapine. Bring printed lab orders with you the first time you go and at your psychiatrist appointment, inform Dr. Genao where you are getting your labs drawn, so he can continue lab orders from there. ) Discharge Medications: New ammonium lactate 12 % Lotion 1 appl topical BID PRN (Reason: Rash) Qty: 60 0RF Protocol: Apply to: Apply to: Lower legs bilaterally hydrocortisone 1 % Cream 1 appl topical BID Qty: 60 0RF Protocol: Apply to: Apply to: Left breast nystatin 100,000 unit/gram Powder 1 appl topical BID PRN (Reason: Rash) Qty: 60 0RF Protocol: Apply to: Apply to: affected areas lorazepam 1 mg Tablet 1 mg PO BEDTIME PRN (Reason: insomnia,anxiety,agitation) Qty: 30 0RF Dermacerin Cream 1 appl topical BID Qty: 60 0RF clozapine 100 mg tablet 100 mg PO BEDTIME MDD 125 mg bedtime Qty: 7 0RF clozapine 25 mg tablet 25 mg PO BEDTIME MDD 125 mg bedtime Qty: 7 0RF metformin 500 mg tablet extended release 24 hr 500 mg PO DAILY Qty: 90 0RF furosemide 40 mg tablet 40 mg PO DAILY Qty: 90 0RF multivitamin [Daily Multi-Vitamin] Tablet 1 tab PO DAILY Qty: 90 0RF docusate sodium [Colace] 100 mg capsule 100 mg PO BEDTIME Qty: 90 0RF atenolol 25 mg tablet 25 mg PO DAILY Qty: 90 0RF clozapine 100 mg tablet 100 mg PO BEDTIME Qty: 7 0RF Rx Instructions: Clozapine 125 mg HS clozapine 25 mg tablet 25 mg PO BEDTIME Qty: 7 0RF Rx Instructions: Clozapine 125 mg HS Continued Eliquis 5 mg Tablet 5 mg PO BID Qty: 60 0RF Discontinued metformin 500 mg tablet extended release 24 hr 500 mg PO DAILY Qty: 90 0RF divalproex 125 mg Capsule, Delayed Rel Sprinkle 1,000 mg PO BID Qty: 0 0RF furosemide 40 mg Tablet 40 mg PO DAILY Qty: 90 0RF Protocol: Hold for SBP< HOLD for SBP < : 90 Invega Sustenna 156 mg/mL syringe 156 mg IM Q30D Qty: 1 0RF Rx Instructions: Injection is due on November 09, 2023. olanzapine 10 mg tablet,disintegrating 5 mg BID No Action (DME) lancets [FreeStyle Lancets] 28 gauge misc See Rx Instructions .Route Qty: 100 1RF Rx Instructions: test blood sugar once per day albuterol sulfate 0.63 mg/3 mL solution for nebulization 0.63 mg inhalation QID PRN (Reason: shortness of breath or wheezing) 30 Days Qty: 75 2RF atenolol 50 mg tablet 50 mg PO DAILY Qty: 90 1RF atorvastatin 20 mg tablet 20 mg PO BEDTIME Qty: 90 1RF (DME) blood-glucose meter [FreeStyle Lite Meter] Kit See Rx Instructions .Route Qty: 1 0RF Rx Instructions: Patient to check blood sugar once daily (DME) FreeStyle Lite Strips Strip See Rx Instructions .Route Qty: 100 0RF Rx Instructions: Patient to check blood sugar once daily budesonide-formoterol [Symbicort] 160-4.5 mcg/actuation HFA aerosol inhaler 2 puff inhalation BID 30 Days Qty: 10.2 3RF ipratropium-albuterol 0.5 mg-3 mg(2.5 mg base)/3 mL solution for nebulization 3 ml inhalation Q6-8H PRN (Reason: wheezing) 30 Days Qty: 90 0RF Discharge Orders: Discharge Order (Routine); Ordered 01/27/24 Ordered By: Rianna Santos Diet: Regular diet Activity on Discharge: As tolerated Stand Alone Forms: Patient Portal Discharge page, Community Support Print Language: Turkish Care Plan Goals: Mood and Behavioral Stabilization Health Concerns: Mood and Behavioral Stabilization Plan of Treatment: Attend scheduled appointments Take medications as directed Weekly lab work for Clozaril needs to be completed Appt with Dr. Tolu Drake, [employer] Specialist, [address] [place] [address] on February 07, 2023 at 10 am for toenail management. Assessment: Pt interviewed prior to discharge. She is very happy to be going home yet has apprehension. She is oriented to person, place, circumstance and is without SI/HI. She demonstrates adequate insight in terms of continuing her treatment. She will live with her father. Her mother and sister will assist, She has VNA, DMH supports and a safety plan that includes presenting to the closest ER or calling 911 if feeling unsafe. She has been observed closely by nursing and unit staff throughout admission. She has recently demonstrated appropriate behaviors and impulse control, has tolerated the addition of Clozapine and will be supervised by her family when at home at all times. Pt and her family are encouraging discharge and supportive of this discharge plan. Discharge Date/Time: 01/27/24 11:30
--- NOTE | 2024-02-02 10:45 | P.EN_ITS ---
Documented by User: Rianna Santos APRN 02/02/24 10:46 Event Note Date of Service: 02/02/24 Event Note: CBCD completed 02/01/24 WBC 8.3 ANC 4.6 Entered in Clozapine registry Prescription for Clozapine 125mg #7 doses sent to [facility]. Time Spent With Patient Time: Total time managing care of this patient today ____ minutes. Documented by User: James Argueta MD 02/12/24 17:24 Event Note Date of Service: 02/12/24
== END 2024-01-27 11:30 | disposition home or self-care (01) | DRG 750 ==
LOC: HO.ED 06:05 → HO.PM5 11-22 13:14
PROVIDERS: Emergency Medicine; Internal Medicine; Physician Assistant; Psychiatry & Neurology Psychiatry; Student in an Organized Health Care Education/Training Program; Admitting Provider Psychiatry & Neurology Psychiatry; Emergency Provider Emergency Medicine; Visit Provider Clinical Nurse Specialist Psychiatric/Mental Health, Adult
DX: F25.0 Schizoaffective disorder, bipolar type (principal); L03.115 Cellulitis of right lower limb; L03.116 Cellulitis of left lower limb; Z68.44 Body mass index [BMI] 60.0-69.9, adult; Z91.148 Patient's other noncompliance with medication regimen for other reason; L73.2 Hidradenitis suppurativa; N76.0 Acute vaginitis; I87.323 Chronic venous hypertension (idiopathic) with inflammation of bilateral lower extremity; E66.01 Morbid (severe) obesity due to excess calories; D68.51 Activated protein C resistance; Z20.822 Contact with and (suspected) exposure to COVID-19; Z87.891 Personal history of nicotine dependence; Z79.01 Long term (current) use of anticoagulants; Z79.84 Long term (current) use of oral hypoglycemic drugs; Z79.899 Other long term (current) drug therapy
CPT/HCPCS: 36415; 73610; 74018; 80048; 80053; 80061; 80076; 80164; 80299; 80307; 81001; 82140; 82565; 82607; 82746; 82947; 83036; 83605; 84443; 84702; 85025; 85027; 85048; 86140; 87040; 87493; 87635; 93005; 93971; 97161; 99285; J2060; J2426; J3230; S9485

== ENCOUNTER 2023-11-22 12:17 | Outpatient (BNV) | payer OTHER, SELFPAY | END 2023-11-24 09:00 | PROVIDERS: Admitting Provider Psychiatry & Neurology Psychiatry; Emergency Provider Emergency Medicine; Visit Provider Internal Medicine | DX: R00.0 Tachycardia, unspecified (principal) | CPT/HCPCS: 93010 ==

== ENCOUNTER 2023-11-22 12:17 | Outpatient (BNV) | payer OTHER, SELFPAY | END 2024-01-07 14:14 | PROVIDERS: Admitting Provider Psychiatry & Neurology Psychiatry; Emergency Provider Emergency Medicine; Visit Provider Internal Medicine | DX: I10 Essential (primary) hypertension (principal); F25.0 Schizoaffective disorder, bipolar type | CPT/HCPCS: 93010 ==

== ENCOUNTER 2023-11-22 12:17 | Outpatient (BNV) | payer OTHER, SELFPAY | END 2023-12-22 14:34 | PROVIDERS: Admitting Provider Psychiatry & Neurology Psychiatry; Emergency Provider Emergency Medicine; Visit Provider Internal Medicine | DX: R45.1 Restlessness and agitation (principal) | CPT/HCPCS: 93010 ==

== ENCOUNTER → 2023-11-22 12:17 | Outpatient (BNV) | payer OTHER, SELFPAY | PROVIDERS: Admitting Provider Psychiatry & Neurology Psychiatry; Emergency Provider Emergency Medicine; Visit Provider Psychiatry & Neurology Psychiatry | DX: F25.0 Schizoaffective disorder, bipolar type (principal); I87.8 Other specified disorders of veins; L03.90 Cellulitis, unspecified | CPT/HCPCS: 99231; 99232 ==

== ENCOUNTER → 2023-11-22 12:17 | Outpatient (BNV) | payer OTHER, SELFPAY | PROVIDERS: Admitting Provider Psychiatry & Neurology Psychiatry; Emergency Provider Emergency Medicine; Visit Provider Internal Medicine | DX: I87.8 Other specified disorders of veins (principal) | CPT/HCPCS: 99221 ==

== ENCOUNTER → 2023-11-22 12:17 | Outpatient (BNV) | payer OTHER, SELFPAY | PROVIDERS: Admitting Provider Psychiatry & Neurology Psychiatry; Emergency Provider Emergency Medicine; Visit Provider Clinical Nurse Specialist Psychiatric/Mental Health, Adult | DX: F25.0 Schizoaffective disorder, bipolar type (principal); I87.8 Other specified disorders of veins; L03.90 Cellulitis, unspecified | CPT/HCPCS: 90792; 99231; 99232; 99238; 99499 ==

== ENCOUNTER → 2023-11-22 12:17 | Outpatient (BNV) | payer OTHER, SELFPAY | PROVIDERS: Admitting Provider Psychiatry & Neurology Psychiatry; Emergency Provider Emergency Medicine; Visit Provider Surgery | DX: L03.90 Cellulitis, unspecified (principal) | CPT/HCPCS: 99222; 99499 ==

== ENCOUNTER 2024-01-31 13:05 | Outpatient (AMB) | payer OTHER, SELFPAY ==
--- NOTE | 2024-01-31 13:11 | MHC.PC.OV ---
Vital Signs 01/31/24 13:16 Height 5 ft 9 in Weight 408 lb 8 oz BMI 60.3 BP 136/92 H Blood Pressure Location Lt brachial Position Sitting Pulse 103 H Pulse Source Pulse Oximeter Pulse Oximetry (%) 96 Oxygen Delivery Method Room Air Intake Visit Reasons: HDF ~ Post hospital discharge FU Allergies kiwi [KIWI] Allergy (Mild, Verified 01/31/24 13:16) HIVES mold [MOLD EXTRACTS*] Allergy (Mild, Verified 01/31/24 13:16) HIVES Medication List - Last Reconciled 01/31/24 by Jose Estes MD ammonium lactate 12% 1 appl See Protocol topical BID PRN apixaban (Eliquis) 5 mg PO BID atenolol 25 mg PO DAILY clozapine 100 mg PO BEDTIME MDD 125 mg bedtime clozapine 25 mg PO BEDTIME MDD 125 mg bedtime docusate sodium (Colace) 100 mg PO BEDTIME furosemide 40 mg PO DAILY hydrocortisone 1% 1 appl See Protocol topical BID lorazepam 1 mg PO BEDTIME PRN metformin ER 500 mg PO DAILY multivitamin (Daily Multi-Vitamin tablet) 1 tab PO DAILY nystatin 1 appl See Protocol topical BID PRN white petrolatum-mineral oil (Dermacerin topical cream) 1 appl topical BID Tobacco use date assessed: 01/31/24 Dental Screening Dental Screen Date: 01/31/24 Did you have a dental visit in the last 12 months?: No Did you have a dental problem in the last 6 months where you did not have access to dental care?: No Was dental information given to patient?: Patient has dentist HPI HDF ~ Post hospital discharge FU HPI Details Patient is a 33-year-old female with morbid obesity, psychiatric illness (bipolar disorder/depression major ) history of hypertension, bilateral chronic stasis dermatitis lower extremity with edema due to peripheral vascular disease, on long-term blood thinners and diuretic, history of diabetes mellitus Patient was in hospital end of November early December due to cellulitis lower extremity, she came in with her mother today for follow-up appointment She was treated and discharged Patient also have number of psychiatric admissions Came in today for her regular follow-up appointment Her cellulitis has resolved She is wearing John stockings now Asthma is flaring up as she does not have any inhalers, I have sent those for Patient tells me that he was on oxygen at home and also have sleep apnea But she is not seeing any bilingual customer service specialist, referral placed Diabetes is controlled with hemoglobin A1c of 6.3 today patient is to continue metformin blood pressure is stable, diastolic blood pressure is slightly elevated Patient is on atenolol 25 mg She also take frusemide 40 mg daily She suffers from clotting disorder and that is why she has on a long-term blood thinners She is now back to her baseline her affect is normal today Patient has difficulty losing weight PFSH Medical History Factor 5 Leiden mutation, heterozygous Venous stasis Chronic cellulitis Fever Fever of unknown origin Foot swelling Hidradenitis suppurativa Schizoaffective disorder, bipolar type Hypertension, essential Uncontrolled type 2 diabetes mellitus with hyperglycemia Leg edema Obesity, morbid Asthma Seasonal asthma Surgical History History of ovarian cyst History of wisdom tooth extraction Family History Father HTN (hypertension) Diabetes mellitus Mother Afib Maternal Grandfather No problems noted. Maternal Grandmother No problems noted. Paternal Grandmother Breast cancer Paternal Grandfather No problems noted. Sister No problems noted. Social History Household Members: Family and Other Household Members Other:: father [phone] Housing: House Do you presently have visiting nurse or other home services: Yes Unable to assess alcohol history related to: Unknown Alcohol intake: never Comment: 1:1 Patient Tobacco Use Status: Former Tobacco user Tobacco use type: Cigarette Years Smoked: 3 yrs e-Cigarette/Vaping Use: Never Used Second Hand Smoke Exposure: No service: No Current occupational status: employed Sexual orientation: Straight/Heterosexual Cognitive needs: No Hearing needs: No Vision needs: Yes Questionnaire Thrive Questionnaire Date Thrive assessed: 11/23/23 AUDIT C Alcohol Use Questionnaire (AUDIT-C) 1. How often do you have a drink containing alcohol?: Never 3. How often do you have six or more drinks on one occasion?: Never Total Score: 0 Score Reviewed/Action Taken: Yes SOLE-7 AMB Questionnaire SOLE-7 Date SOLE - 7 assessed: 02/10/22 Source: Developed by Drs. Ricco L. Lashonda Gunter, Nate Galvin and colleagues, with an educational giovana from [employer]. Review of Systems Const Denies chills and Denies fever(s) ENT Denies epistaxis and Denies nasal discharge Card Denies chest pain Resp Denies chest congestion, Denies cough and Denies hemoptysis GI Denies diarrhea and Denies nausea Neuro Reports no additional complaints Psych Reports no additional complaints Endo Reports no additional complaints Physical exam (Primary Care) Vital Signs: Last Vital Signs Pulse 103 H 01/31/24 13:16 BP 136/92 H 01/31/24 13:16 Pulse Ox 96 01/31/24 13:16 Oxygen Delivery Method Room Air 01/31/24 13:16 BMI result Body Mass Index 60.3 Tobacco/Smoking Status: Tobacco use Status Tobacco use date assessed 01/31/24 01/31/24 13:20 Patient Tobacco Use Status Former Tobacco user 01/31/24 13:12 Tobacco use type Cigarette 01/31/24 13:12 e-Cigarette/Vaping Use Never Used 01/31/24 13:12 Thrive Assessment: Date of Thrive Assessment Date Thrive assessed 11/23/23 01/31/24 13:12 Const General: cooperative, comfortable and no acute distress Orientation/consciousness: patient oriented x3 HENMT Head: Yes normocephalic Eyes General: appearance normal, both eyes and all related structures Neck Neck: Yes supple Resp Effort & Inspection: normal respiratory effort, no cough and no stridor Cardio Rhythm: regular rhythm Heart sounds: S1 normal heart sound present and S2 normal heart sound present Skin General skin exam: turgor normal Neuro General: patient oriented x3, tone normal and moves all extremities Results AMB Hemoglobin A1c AMB Hemoglobin A1c 6.3 % Last Edit by Karlene Anthony MA on 01/31/24 13:34 Results Reviewed Results Reviewed: Laboratory Last Values Hgb A1c (Clinic) 6.3 % (4.0-6.0) H 01/31/24 13:33 Assessment and Plan Assessment & Plan (1) Hypertension, essential: Code(s): I10 - Essential (primary) hypertension (2) Morbid obesity: Code(s): E66.01 - Morbid (severe) obesity due to excess calories (3) Diabetes 1.5, managed as type 2: Code(s): E13.9 - Other specified diabetes mellitus without complications (4) Asthma, moderate persistent: Code(s): J45.40 - Moderate persistent asthma, uncomplicated Qualifiers: Asthma complication type: uncomplicated Qualified Code(s): J45.40 - Moderate persistent asthma, uncomplicated (5) Factor 5 Leiden mutation, heterozygous: Code(s): D68.51 - Activated protein C resistance (6) Bipolar disorder: Code(s): F31.9 - Bipolar disorder, unspecified Qualifiers: Active/Remission status: in full remission Most recent bipolar episode type: mixed Qualified Code(s): F31.78 - Bipolar disorder, in full remission, most recent episode mixed (7) Chronic stasis dermatitis: Code(s): I87.2 - Venous insufficiency (chronic) (peripheral) (8) Peripheral vascular disease: Code(s): I73.9 - Peripheral vascular disease, unspecified (9) Leg edema: Code(s): R60.0 - Localized edema (10) Obstructive sleep apnea on CPAP: Code(s): G47.33 - Obstructive sleep apnea (adult) (pediatric) Plan Patient is a 33-year-old female with morbid obesity, psychiatric illness (bipolar disorder/depression major ) history of hypertension, bilateral chronic stasis dermatitis lower extremity with edema due to peripheral vascular disease, on long-term blood thinners and diuretic, history of diabetes mellitus Patient was in hospital end of November early December due to cellulitis lower extremity, she came in with her mother today for follow-up appointment She was treated and discharged Patient also have number of psychiatric admissions Came in today for her regular follow-up appointment Her cellulitis has resolved She is wearing John stockings now Asthma is flaring up as she does not have any inhalers, I have sent those for Patient tells me that he was on oxygen at home and also have sleep apnea But she is not seeing any bilingual customer service specialist, referral placed Diabetes is controlled with hemoglobin A1c of 6.3 today patient is to continue metformin blood pressure is stable, diastolic blood pressure is slightly elevated Patient is on atenolol 25 mg She also take frusemide 40 mg daily She suffers from clotting disorder and that is why she has on a long-term blood thinners She is now back to her baseline her affect is normal today Patient has difficulty losing weight Patient has appointment coming up with social work nurse on February 07 Tolu Phlipi Her psychiatrist is Dr. Nathan Norman, she has appointment on February [address] Taylor Lr is on February 20 Her therapist is Maribel Joshua 50 minute spent in care of this patient including [id number] discussion with patient and her mother Going over paperwork from hospital discharge, updating medications, losing referral, sending medications Coordination of care, charting Orders: Referrals Pulmonology Referral G47.33 - Obstructive sleep apnea (adult) (pediatric), J45.40 - Moderate persistent asthma, uncomplicated Medications: New atenolol 50 mg PO DAILY 90 tabs 1RF atorvastatin 20 mg PO BEDTIME 90 tabs 1RF ipratropium-albuterol 0.5 mg-3 mg(2.5 mg base)/3 mL 3 mL inhalation Q6-8H PRN 90 mL 0RF wheezing 30 days Refilled albuterol sulfate 0.63 mg (3 mL) inhalation QID PRN 75 mL 2RF shortness of breath or wheezing 30 days blood sugar diagnostic (FreeStyle Lite Strips) Patient to check blood sugar once daily 100 ea 0RF E13.9 - Other specified diabetes mellitus without complications budesonide-formoterol 160-4.5 mcg/actuation (Symbicort) 2 puffs inhalation BID 10.2 grams 3RF 30 days J45.909 - Unspecified asthma, uncomplicated blood-glucose meter (FreeStyle Lite Meter kit) Patient to check blood sugar once daily 1 ea 0RF E13.9 - Other specified diabetes mellitus without complications Coding Level of Care Code Est Pt Level 5 (17020) Diagnoses Hypertension, essential I10 Morbid obesity E66.01 Diabetes 1.5, managed as type 2 E13.9 Moderate persistent asthma without complication J45.40 Asthma complication type: uncomplicated Factor 5 Leiden mutation, heterozygous D68.51 Bipolar disorder, in full remission, most recent episode mixed F31.78 Active/Remission status: in full remission Most recent bipolar episode type: mixed Chronic stasis dermatitis I87.2 Peripheral vascular disease I73.9 Leg edema R60.0 Obstructive sleep apnea on CPAP G47.33
[2024-01-31 13:16] VITALS: BP 136/92; PULSE 103; O2SAT 96; BMI 60.3
== END 2024-01-31 14:07 | disposition home or self-care (01) ==
PROVIDERS: Visit Provider Internal Medicine
DX: E13.9 Other specified diabetes mellitus without complications (principal); E66.01 Morbid (severe) obesity due to excess calories; D68.51 Activated protein C resistance; F31.78 Bipolar disorder, in full remission, most recent episode mixed; I73.9 Peripheral vascular disease, unspecified; I10 Essential (primary) hypertension; J45.40 Moderate persistent asthma, uncomplicated; I87.2 Venous insufficiency (chronic) (peripheral); R60.0 Localized edema; G47.33 Obstructive sleep apnea (adult) (pediatric)
CPT/HCPCS: 83036; 99215

== ENCOUNTER 2024-05-29 14:10 | Outpatient (AMB) | payer OTHER, SELFPAY ==
--- NOTE | 2024-05-29 14:14 | MHC.PC.OV ---
Vital Signs 05/29/24 14:15 Height 5 ft 9 in Weight 405 lb BMI 59.8 BP 136/84 Blood Pressure Location Rt brachial Position Sitting Pulse 97 Pulse Source Pulse Oximeter Pulse Oximetry (%) 99 Oxygen Delivery Method Room Air Intake Visit Reasons: Annual PE Allergies kiwi [KIWI] Allergy (Mild, Verified 05/29/24 14:16) HIVES mold [MOLD EXTRACTS*] Allergy (Mild, Verified 05/29/24 14:16) HIVES Medication List - Last Reconciled 05/29/24 by Jose Estes MD albuterol sulfate 0.63 mg (3 mL) inhalation QID PRN 30 days ammonium lactate 12% 1 appl See Protocol topical BID PRN apixaban (Eliquis) 5 mg PO BID atenolol 50 mg PO DAILY atorvastatin 20 mg PO BEDTIME blood sugar diagnostic (FreeStyle Lite Strips) Patient to check blood sugar once daily blood-glucose meter (FreeStyle Lite Meter kit) Patient to check blood sugar once daily budesonide-formoterol 160-4.5 mcg/actuation (Symbicort) 2 puffs inhalation BID 30 days clozapine (Clozaril) 25 mg PO BEDTIME clozapine 100 mg PO BEDTIME divalproex (Depakote Sprinkles) 500 mg (4 x 125 mg) PO BID docusate sodium (Colace) 100 mg PO BEDTIME furosemide (Lasix) 40 mg PO DAILY furosemide 40 mg PO DAILY hydrocortisone 1% 1 appl See Protocol topical BID ipratropium-albuterol 0.5 mg-3 mg(2.5 mg base)/3 mL 3 mL inhalation Q6-8H PRN 30 days lancets (FreeStyle Lancets) test blood sugar once per day lorazepam 1 mg PO BEDTIME PRN metformin ER 500 mg PO DAILY multivitamin (Daily Multi-Vitamin tablet) 1 tab PO DAILY nystatin 1 appl See Protocol topical BID PRN white petrolatum-mineral oil (Dermacerin topical cream) 1 appl topical BID Tobacco use date assessed: 01/31/24 Dental Screening Dental Screen Date: 01/31/24 HPI Annual PE HPI Details Zeinab came in for physical exam She was not able to get on examination table due to body habitus Patient's BMI is 59.8 she is having difficulty losing weight All her medications are through this office except psychiatric medications Patient have a history of bipolar disorder Blood pressure is stable She is also on chronic blood thinners secondary to clotting disorder She has not gone to Hematology for follow-up, I have encouraged patient to book the appointment [facility] Labs are due order placed Follow-up 3 months [facility] Medical History Factor 5 Leiden mutation, heterozygous Venous stasis Chronic cellulitis Fever Fever of unknown origin Foot swelling Hidradenitis suppurativa Schizoaffective disorder, bipolar type Hypertension, essential Uncontrolled type 2 diabetes mellitus with hyperglycemia Leg edema Obesity, morbid Asthma Seasonal asthma Surgical History History of ovarian cyst History of wisdom tooth extraction Family History Father HTN (hypertension) Diabetes mellitus Mother Afib Maternal Grandfather No problems noted. Maternal Grandmother No problems noted. Paternal Grandmother Breast cancer Paternal Grandfather No problems noted. Sister No problems noted. Social History Household Members: Family and Other Household Members Other:: father [phone] Housing: House Do you presently have visiting nurse or other home services: Yes Unable to assess alcohol history related to: Unknown Alcohol intake: never Comment: 1:1 Patient Tobacco Use Status: Former Tobacco user Tobacco use type: Cigarette Years Smoked: 3 yrs e-Cigarette/Vaping Use: Never Used Second Hand Smoke Exposure: No service: No Current occupational status: employed Sexual orientation: Straight/Heterosexual Cognitive needs: No Hearing needs: No Vision needs: Yes Questionnaire PHQ-9 Over the last 2 weeks, how often have you been bothered by any of the following problems? 96216 - PHQ-9 Billing: Patient declined-do not bill Source: Developed by Drs. Ricco Gunter, Lashonda Munroe, Nate Galvin and colleagues, with an educational giovana from [employer]. Thrive Questionnaire Date Thrive assessed: 11/23/23 SOLE-7 AMB Questionnaire SOLE-7 Date SOLE - 7 assessed: 05/29/24 Source: Developed by Drs. Ricco Gunter, Nate Vieyrake and colleagues, with an educational giovana from [employer]. SOLE-7 Assessment Billing SOLE-7 Assessment Tool: pt declined-do not bill Review of Systems Const Denies chills, Denies fever(s) and Denies headache(s) Eyes Denies blurry vision ENT Denies headache(s), Denies nasal discharge, Denies nasal obstruction, Denies odynophagia and Denies sinus pain Card Denies chest pain at rest and Denies chest pain with activity Resp Denies cough and Denies hemoptysis GI Denies diarrhea, Denies odynophagia, Denies vomiting and Denies hematemesis Reports as per HPI Musc Denies abnormal gait Skin/Breast Reports as per HPI Neuro Denies Neuro-related abnormal movements, Denies Abnormal speech present, Denies abnormal gait and Denies headache(s) Endo Reports as per HPI Rajeev/Lymph Reports as per HPI Aller/Immun Reports as per HPI Physical exam (Primary Care) Vital Signs: Last Vital Signs Pulse 97 05/29/24 14:15 BP 136/84 05/29/24 14:15 Pulse Ox 99 05/29/24 14:15 Oxygen Delivery Method Room Air 05/29/24 14:15 BMI result Body Mass Index 59.8 Tobacco/Smoking Status: Tobacco use Status Tobacco use date assessed 01/31/24 05/29/24 14:21 Patient Tobacco Use Status Former Tobacco user 05/29/24 14:21 Tobacco use type Cigarette 05/29/24 14:21 e-Cigarette/Vaping Use Never Used 05/29/24 14:21 Thrive Assessment: Date of Thrive Assessment Date Thrive assessed 11/23/23 05/29/24 14:21 Const General: cooperative, comfortable and no acute distress Orientation/consciousness: patient oriented x3 HENMT Head: Yes normocephalic and Yes atraumatic Eyes General: appearance normal, both eyes and all related structures Pupils: Equal, round and reactive pupils present EOM: EOMs intact bilaterally Neck Neck: Yes supple and No lymphadenopathy Thyroid: Thyroid normal Lymphatic: no lymphadenopathy noted Resp Effort & Inspection: normal respiratory effort and able to speak in complete sentences Auscultation: clear to auscultation bilaterally Cardio Heart sounds: S1 normal heart sound present and S2 normal heart sound present Skin General skin exam: elasticity normal and turgor normal Neuro General: patient oriented x3 and gait normal Cranial nerves: Yes Equal, round and reactive pupils present Speech: No Abnormal speech present Extrem General: Yes normal exam except as noted Assessment and Plan Assessment & Plan (1) Encounter for general adult medical examination with abnormal findings: Code(s): Z00.01 - Encounter for general adult medical examination with abnormal findings (2) Hypertension, essential: Code(s): I10 - Essential (primary) hypertension (3) Morbid obesity: Code(s): E66.01 - Morbid (severe) obesity due to excess calories (4) Diabetes 1.5, managed as type 2: Code(s): E13.9 - Other specified diabetes mellitus without complications (5) Asthma, moderate persistent: Code(s): J45.40 - Moderate persistent asthma, uncomplicated Qualifiers: Asthma complication type: uncomplicated Qualified Code(s): J45.40 - Moderate persistent asthma, uncomplicated (6) Anxiety disorder: Code(s): F41.9 - Anxiety disorder, unspecified Qualifiers: Anxiety disorder type: generalized anxiety disorder Qualified Code(s): F41.1 - Generalized anxiety disorder (7) Lipid disorder: Code(s): E78.9 - Disorder of lipoprotein metabolism, unspecified (8) Schizoaffective disorder, bipolar type: Code(s): F25.0 - Schizoaffective disorder, bipolar type (9) Factor 5 Leiden mutation, heterozygous: Code(s): D68.51 - Activated protein C resistance (10) Chronic stasis dermatitis: Code(s): I87.2 - Venous insufficiency (chronic) (peripheral) (11) Obstructive sleep apnea on CPAP: Code(s): G47.33 - Obstructive sleep apnea (adult) (pediatric) Plan Zeinab came in for physical exam She was not able to get on examination table due to body habitus Patient's BMI is 59.8 she is having difficulty losing weight All her medications are through this office except psychiatric medications Patient have a history of bipolar disorder Blood pressure is stable She is also on chronic blood thinners secondary to clotting disorder She has not gone to Hematology for follow-up, I have encouraged patient to book the appointment She has gone to [facility] for her gynecological needs Labs are due order placed Follow-up 3 months Orders: Orders Comprehensive Met. Panel Today D68.51 - Activated protein C resistance, E13.9 - Other specified diabetes mellitus without complications, E66.01 - Morbid (severe) obesity due to excess calories, E78.9 - Disorder of lipoprotein metabolism, unspecified, F25.0 - Schizoaffective disorder, bipolar type, F41.9 - Anxiety disorder, unspecified, G47.33 - Obstructive sleep apnea (adult) (pediatric), I10 - Essential (primary) hypertension, I87.2 - Venous insufficiency (chronic) (peripheral), J45.40 - Moderate persistent asthma, uncomplicated LDL Cholesterol Direct Today D68.51 - Activated protein C resistance, E13.9 - Other specified diabetes mellitus without complications, E66.01 - Morbid (severe) obesity due to excess calories, E78.9 - Disorder of lipoprotein metabolism, unspecified, F25.0 - Schizoaffective disorder, bipolar type, F41.9 - Anxiety disorder, unspecified, G47.33 - Obstructive sleep apnea (adult) (pediatric), I10 - Essential (primary) hypertension, I87.2 - Venous insufficiency (chronic) (peripheral), J45.40 - Moderate persistent asthma, uncomplicated TSH reflex Free T4 Today D68.51 - Activated protein C resistance, E13.9 - Other specified diabetes mellitus without complications, E66.01 - Morbid (severe) obesity due to excess calories, E78.9 - Disorder of lipoprotein metabolism, unspecified, F25.0 - Schizoaffective disorder, bipolar type, F41.9 - Anxiety disorder, unspecified, G47.33 - Obstructive sleep apnea (adult) (pediatric), I10 - Essential (primary) hypertension, I87.2 - Venous insufficiency (chronic) (peripheral), J45.40 - Moderate persistent asthma, uncomplicated Hemoglobin A1c Today D68.51 - Activated protein C resistance, E13.9 - Other specified diabetes mellitus without complications, E66.01 - Morbid (severe) obesity due to excess calories, E78.9 - Disorder of lipoprotein metabolism, unspecified, F25.0 - Schizoaffective disorder, bipolar type, F41.9 - Anxiety disorder, unspecified, G47.33 - Obstructive sleep apnea (adult) (pediatric), I10 - Essential (primary) hypertension, I87.2 - Venous insufficiency (chronic) (peripheral), J45.40 - Moderate persistent asthma, uncomplicated Microalbumin, Random (w Creat) Today D68.51 - Activated protein C resistance, E13.9 - Other specified diabetes mellitus without complications, E66.01 - Morbid (severe) obesity due to excess calories, E78.9 - Disorder of lipoprotein metabolism, unspecified, F25.0 - Schizoaffective disorder, bipolar type, F41.9 - Anxiety disorder, unspecified, G47.33 - Obstructive sleep apnea (adult) (pediatric), I10 - Essential (primary) hypertension, I87.2 - Venous insufficiency (chronic) (peripheral), J45.40 - Moderate persistent asthma, uncomplicated Complete Blood Count Auto Diff Today D68.51 - Activated protein C resistance, E13.9 - Other specified diabetes mellitus without complications, E66.01 - Morbid (severe) obesity due to excess calories, E78.9 - Disorder of lipoprotein metabolism, unspecified, F25.0 - Schizoaffective disorder, bipolar type, F41.9 - Anxiety disorder, unspecified, G47.33 - Obstructive sleep apnea (adult) (pediatric), I10 - Essential (primary) hypertension, I87.2 - Venous insufficiency (chronic) (peripheral), J45.40 - Moderate persistent asthma, uncomplicated Coding Level of Care Code Est Pt Level 4 (89488) Est Pt Prev Care 18-39y([id number]) Diagnoses Encounter for general adult medical examination with abnormal findings Z00.01 Hypertension, essential I10 Morbid obesity E66.01 Diabetes 1.5, managed as type 2 E13.9 Moderate persistent asthma without complication J45.40 Asthma complication type: uncomplicated Generalized anxiety disorder F41.1 Anxiety disorder type: generalized anxiety disorder Lipid disorder E78.9 Schizoaffective disorder, bipolar type F25.0 Factor 5 Leiden mutation, heterozygous D68.51 Chronic stasis dermatitis I87.2 Obstructive sleep apnea on CPAP G47.33
[2024-05-29 14:15] VITALS: BP 136/84; PULSE 97; O2SAT 99; BMI 59.8
== END 2024-05-29 14:51 | disposition home or self-care (01) ==
PROVIDERS: PCP Internal Medicine; Visit Provider Internal Medicine
DX: Z00.00 Encounter for general adult medical examination without abnormal findings (principal); E66.01 Morbid (severe) obesity due to excess calories; E13.9 Other specified diabetes mellitus without complications; Z68.43 Body mass index [BMI] 50.0-59.9, adult; F25.0 Schizoaffective disorder, bipolar type; D68.51 Activated protein C resistance; I10 Essential (primary) hypertension; J45.40 Moderate persistent asthma, uncomplicated; F41.1 Generalized anxiety disorder; E78.9 Disorder of lipoprotein metabolism, unspecified; I87.2 Venous insufficiency (chronic) (peripheral); G47.33 Obstructive sleep apnea (adult) (pediatric)

== ENCOUNTER → 2024-05-29 14:10 | Outpatient (BNVA) | payer OTHER, SELFPAY | PROVIDERS: PCP Internal Medicine; Visit Provider Internal Medicine | DX: Z00.01 Encounter for general adult medical examination with abnormal findings (principal); I10 Essential (primary) hypertension; E66.01 Morbid (severe) obesity due to excess calories; E13.9 Other specified diabetes mellitus without complications; J45.40 Moderate persistent asthma, uncomplicated; F41.1 Generalized anxiety disorder; E78.9 Disorder of lipoprotein metabolism, unspecified; F25.0 Schizoaffective disorder, bipolar type; D68.51 Activated protein C resistance; I87.2 Venous insufficiency (chronic) (peripheral); G47.33 Obstructive sleep apnea (adult) (pediatric); Z99.89 Dependence on other enabling machines and devices | CPT/HCPCS: 99395 ==

== ENCOUNTER 2024-06-02 19:27 | Inpatient (IN) | payer OTHER, SELFPAY ==
[2024-06-02 19:50] VITALS: BP 144/70; PULSE 105; RESP 15; TEMP 36.8; O2SAT 96
[2024-06-03] MEDS: LORazepam 1 MG TABLET PO ×2 (00:04→21:02)
[2024-06-03] MEDS: cloZAPine 25 MG TABLET 12.5 MG PO ×3 (00:05→21:01)
[2024-06-03] MEDS: Divalproex Sodium 500 MG TABLET.DR PO ×3 (00:05→21:01)
[2024-06-03] MEDS: Apixaban 5 MG TABLET PO ×3 (00:05→21:00)
[2024-06-03] MEDS: cloZAPine 100 MG TABLET PO ×2 (00:05→21:00)
[2024-06-03] MEDS: Atorvastatin Calcium 20 MG TABLET PO ×2 (00:05→21:00)
[2024-06-03 04:54] VITALS: BMI 64.5
--- NOTE | 2024-06-03 05:27 | PC.ADMIT ---
Zeinab is a 33 y.o. female, she was transferred from [facility]. She arrived to on 06/02/24 at 1950 with legal status 12B. Per Crisis Eval she has a history of Bipolar Disorder Type 1 w/psychotic features. She is know to from previous admissions. She was presented at [facility] ED after calling 911 for unknown reasons. The patient presented as very disorganized, rapidly decompensating, tangential speech, increasingly becoming word salad with nonsensical sentences, with extreme fluctuations in mood. Patient presented as disheveled, malodorous, has not slept for 3 days. Father was concerned for patients safety due to her impairment. Father indicated that he is patients legal guardian, however did not provide documentation. Pt was not able to participate much in admission process due to her mental status, however signed some legal papers. She called police on from patient phones reporting that her heart stopped. Her speech is nonsensical and she is making inappropriate sexual comments. Patient is extremely obese, upon skin assessment rash was noted under bilateral breasts, both underarms and in her groin area. She is malodorous, refused shower after staff asking her multiple times. After taking her night med she fell asleep on the chair by the patient phones. At 4 am she moved to her bed. While in her sleep she was heard yelling multiple times.
[2024-06-03 08:00] VITALS: BP 139/72; PULSE 102; RESP 16; TEMP 36.6; O2SAT 95
--- NOTE | 2024-06-03 09:48 | P.HPPS_ITS ---
HPI Date of Service: 06/03/24 Chief Complaint: Bipolar type 1 w/ psychotic features Sources of Information: patient interviewed, chart reviewed and crisis/core team assessment reviewed HPI Subjective Notes: Montiel Warning and Section 12B Medical Problems Affecting Mental Status: No Narrative: 33 year old with a history of schizoaffective disorder bipolar type. She lives in [place] with her father. She is [facility] from [facility] ED to [facility] [place] for psychiatric treatment. She called 911 for unclear reasons. In the ED she was seen by the behavioral health team and found to be psychotic and manic and in need of inpatient psychiatric care. Patient is disorganized during the meeting today. She says [place] called the police. She is K9 trained dog. She used the landline. I was scared of my dad. Patient is tangential and her thought process is derailed. 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 I am Irish Shinto. What's your favorite food? I have a connection with Ricco Mcpherson. Do you want VIP tickets? Do you like the Patriots?.... Patient is disinhibited. Prior to the meeting she is seen in the hallway and her gown is open in the back. She is disheveled and malodorous. Patient is noted to be hyperverbal and intrusive. Inappropriate sexual remarks. Denies SI. Past Psychiatric History: Inpatient: Most recent M5: November till January 2024, Sep- Oct 2023, 07/28; [facility] 01/2023 OP: OLLIE Briseno [employer]-[facility]ittany Suicide attempts: none Medication trials: haldol, depakote, olanzapine, latuda Medical Evaluation Reviewed: Yes [facility] Medical History Factor 5 Leiden mutation, heterozygous Venous stasis Chronic cellulitis Fever Fever of unknown origin Foot swelling Hidradenitis suppurativa Schizoaffective disorder, bipolar type Hypertension, essential Uncontrolled type 2 diabetes mellitus with hyperglycemia Leg edema Obesity, morbid Asthma Seasonal asthma Surgical History History of ovarian cyst History of wisdom tooth extraction Family History: maternal family of psychosis, ECT treatments Social History: Pt grew up with both parents until they . She currently lives with her father. Not , no children. 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 Substance History: Denies Trauma History: affirms Diagnostics Vital Signs (24Hr): Vital Signs - 24 hr 06/02/24 19:50 Temperature 98.2 F Pulse Rate 105 H Respiratory Rate 15 Blood Pressure 144/70 H Pulse Oximetry 96 BMI result Body Mass Index 64.5 Labs 06/03/24 12:33 Meds/Allergies Meds Home Medications ?Medication ?Instructions ?Recorded ?Confirmed ?Type clozapine 25 mg tablet (Clozaril) 12.5 mg PO BID 06/02/24 06/02/24 History trazodone 50 mg tablet 50 mg PO BEDTIME 06/02/24 06/02/24 History Allergies Allergies Allergy/AdvReac Type Severity Reaction Status Date / Time kiwi [KIWI] Allergy Mild HIVES Verified 05/29/24 14:16 mold [MOLD EXTRACTS*] Allergy Mild HIVES Verified 05/29/24 14:16 Mental Status Exam Mental Status Exam Patient Appearance: Disheveled, Perspiring, Unkempt and Malodorous Level of Consciousness: Awake, Alert and Inappropriate Patient Behavior: Talkative, Hypersexual, Distractible and Impulsive Mood Description: Euphoric, Cheerful, Labile, Sad, Nervous and Expansive Affect Description: Labile Ability to Follow Directions: Good Speech Pattern: Clear, Excessive and Pressured Hallucinations: None Delusions: Paranoid Ideation and Grandiose Thought Process: Racing, Illogical and Distracted Thought Content: positive for Loose Associations, positive for Tangential and positive for Disorganized Judgement: Poor Assessment & Plan Assessment & Plan (1) Bipolar disorder: Status: Acute Qualifiers: Active/Remission status: in full remission Most recent bipolar episode type: mixed Qualified Code(s): F31.78 - Bipolar disorder, in full remission, most recent episode mixed Code(s): F31.9 - Bipolar disorder, unspecified (2) Schizoaffective disorder, bipolar type: Status: Acute Code(s): F25.0 - Schizoaffective disorder, bipolar type Plan 33 yo female with schizoaffective disorder, bipolar type transferred from [facility] ED due to brendon and disorganization after calling 911. She has been decompensating in the last few days per report. Unclear precipitants. She has repeated prolonged hospitalizations. Plan: - Admit to inpatient psychiatry - CV - Collateral information from family and providers. - Milieu treatment and group therapy. - Medications: Restart OP medications. - Social work evaluation. - Disposition planning. Patient educated on: diagnosis Reason for continued inpatient stay Substantial Risk for: inability to function, rapid decompensation and med/psych decompensation Statement Statement: I have reviewed the history and physical and performed a pertinent examination on my patient. No changes have occurred unless specified. If the History and Physical was not performed prior to admission, the Hospitalist's service will be consulted for completing the admission physical. Time Spent With Patient Time: Total time managing care of this patient today ____ minutes.
--- NOTE | 2024-06-03 11:52 | P.CONHOSP_ITS ---
History of Present Illness Data of Consult Service Date: 06/03/24 Requesting physician: Pérez Bruce Primary Care Provider: Unknown Physician HPI Reason for consult: medical H&P 33 year old female with history of diet controlled type 2 dm, htn, hld, factor 5 deficiency, asthma, morbid obesity with bmi >64, chronic venous stasis dermatitis, and bipolar disorder admitted to psychiatry with consult placed to hospitalist service for medical H&P. The patient is well know to this provider but is very disorganized with emotional ability and difficult to ascertain history from. Her only complaint is a rash under her breasts, known to have intertriginous candidiasis. She has had issues with venous statis dermatitis/edema while on the unit during prior admissions as well as cellulitis. She is found barefeet with poor hygeine this morning, malodorous and unkempt. However, is not complaining of any discomfort in the BLE and there does not appear to be any significant erythema, warmth, or wounds to the feet. This morning has a mild tachycardic at 105 and mildly hypertensive. Apparently last ngt, called police fromt he unit reporting her heart had stopped. She denies any cp, sob, palpitations. No other complaints reported but is not really answering questions directly. While at [facility], hematology studies largely unremarkable, mild luekoctyosis of 12.1, no evidence of infection. Renal fx and lytes wnl. TSH wnl. Review of Systems 2 Review of Systems: General: No fevers, malaise, unintentional weight loss HEENT: No blurred vision, diplopia. No sore throat, nasal congestion, rhinorrhea, sinus pain, ear pain Cardiovascular: No chest pain, palpitations, or leg edema Respiratory: No shortness of breath, wheezing, cough GI: No abdominal pain, nausea, vomiting, diarrhea, constipation, melena, hematochezia : No dysuria, hematuria, increased urinary frequency, decreased urinary output MSK: No myalgia, back pain Neuro: No headaches, weakness, paresthesias Skin: No lesions. +rash beneath breasts *of note, question reliability of history given patient's acute decompensation in mental status, however does not issue any other complaints besides rash. [facility] Medical History Factor 5 Leiden mutation, heterozygous Venous stasis Chronic cellulitis Fever Fever of unknown origin Foot swelling Hidradenitis suppurativa Schizoaffective disorder, bipolar type Hypertension, essential Uncontrolled type 2 diabetes mellitus with hyperglycemia Leg edema Obesity, morbid Asthma Seasonal asthma Family History Father HTN (hypertension) Diabetes mellitus Mother Afib Maternal Grandfather No problems noted. Maternal Grandmother No problems noted. Paternal Grandmother Breast cancer Paternal Grandfather No problems noted. Sister No problems noted. Surgical History History of ovarian cyst History of wisdom tooth extraction Social History Household Members: Family Household Members Other:: father [phone] Housing: House Do you presently have visiting nurse or other home services: Yes Unable to assess alcohol history related to: Unknown Alcohol intake: never Comment: 1:1 Patient Tobacco Use Status: Never used Tobacco Tobacco use type: Cigarette Years Smoked: 3 yrs e-Cigarette/Vaping Use: Never Used Second Hand Smoke Exposure: No Use of substances other than those prescribed or required for medical reasons: No Advance Directives Information Provided: No Do you have a plan to hurt others: No Plan Recently lost weight without trying: No Eating poorly because of decreased appetite: No Patient : No : No service: No Current occupational status: employed Sexual orientation: Straight/Heterosexual Cognitive needs: No Hearing needs: No Vision needs: Yes Meds Allergies Allergy/AdvReac Type Severity Reaction Status Date / Time kiwi [KIWI] Allergy Mild HIVES Verified 05/29/24 14:16 mold [MOLD EXTRACTS*] Allergy Mild HIVES Verified 05/29/24 14:16 Active Medications: Current Medications Acetaminophen (Acetaminophen 325 Mg Tablet) 650 mg PO Q6H PRN PRN Reason: Headache/Pain Mild Scale (1-3) Al Hydroxide/Mg Hydroxide (Magnesium Hydrox/Alum Hydrox 30 Ml Oral.Susp) 30 ml PO Q6H PRN PRN Reason: Heartburn/Nausea Apixaban (Apixaban 5 Mg Tablet) 5 mg PO BID [facility] Last Admin: 06/03/24 00:05 Dose: 5 mg Atenolol (Atenolol 50 Mg Tablet) 50 mg PO DAILY [facility]; Protocol Atorvastatin Calcium (Atorvastatin Calcium 20 Mg Tablet) 20 mg PO BEDTIME [facility] Last Admin: 06/03/24 00:05 Dose: 20 mg Clozapine (Clozapine 100 Mg Tablet) 100 mg PO BEDTIME [facility] Stop: 06/08/24 21:01 Last Admin: 06/03/24 00:05 Dose: 100 mg Clozapine (Clozapine 25 Mg Tablet) 12.5 mg PO BID [facility] Stop: 06/05/24 21:01 Last Admin: 06/03/24 00:05 Dose: 12.5 mg Divalproex Sodium (Divalproex Sodium 500 Mg Tablet.Dr) 500 mg PO BID [facility] Last Admin: 06/03/24 00:05 Dose: 500 mg Haloperidol (Haloperidol 5 Mg Tablet) 5 mg PO TID PRN PRN Reason: Psychosis Hydroxyzine HCl (Hydroxyzine Hcl 25 Mg Tablet) 25 mg PO Q6H PRN PRN Reason: Anxiety Lorazepam (Lorazepam 1 Mg Tablet) 1 mg PO BEDTIME [facility] Last Admin: 06/03/24 00:04 Dose: 1 mg Magnesium Hydroxide (Milk Of Magnesia 30 Ml Oral.Susp) 30 ml PO DAILY PRN PRN Reason: Constipation Metformin HCl (Metformin Hcl 500 Mg Tablet) 500 mg PO BIDWM [facility] Trazodone HCl (Trazodone Hcl 50 Mg Tablet) 50 mg PO BEDTIME MRX1 PRN PRN Reason: Insomnia Home Medications ?Medication ?Instructions ?Recorded ?Confirmed ?Last Taken ?Type clozapine 25 mg tablet (Clozaril) 12.5 mg PO BID 06/02/24 06/02/24 Unknown History trazodone 50 mg tablet 50 mg PO BEDTIME 06/02/24 06/02/24 Unknown History Physical Exam 2 Vital Signs and Narrative: Vital Signs: Last Vital Signs Temp 98.2 F 06/02/24 19:50 Pulse 105 H 06/02/24 19:50 Resp 15 06/02/24 19:50 BP 144/70 H 06/02/24 19:50 Pulse Ox 96 06/02/24 19:50 BMI result Body Mass Index 64.5 Constitutional - Awake and Alert, No apparent distress Eyes - PERRLA, EOMI Cardiovascular - S1S2, RRR, No edema Respiratory - Normal lung expansion, Normal respiratory effort, No respiratory distress, CTA bilaterally Gastrointestinal - NT / ND; +BS; No rebound or guarding Extremities - no calf tenderness bilaterally, swelling ble/feet. Faint erythema BLE without warmth or evidence of infection Musculoskeletal - Normal inspection, normal ROM Skin - unable to fully evaluate due to patient disorganization- unable to redirect Neurological - moving all extremities. PERRLA, unable to participate in CN exam fully but EOMs appear in tact, no facial droop or slurred speech. Strength equal upper and lower extremities Results Labs 06/03/24 12:33 Assessment and Plan (1) Routine medical exam: Status: Acute Plan 33 year old female with history of diet controlled type 2 dm, htn, hld, factor 5 deficiency, asthma, morbid obesity with bmi >64, chronic venous stasis dermatitis, and bipolar disorder admitted to psychiatry with consult placed to hospitalist service for medical H&P. #Mood disorder -plan per psychiatry #Intertriginous candidiasis -nystatin cream (pt does not like the powder) to intertriginous folds including beneath breasts #Chronic venous stasis dermatitis -legs actually appear improved from prior admission. No evidence of infection. However, pt barefoot with poor hygeine note -Advised patient to wear socks. Please encourage patient to wear socks while on the unit and to shower. Recommend ordering compressions stockings and using ammonium lactate as in prior admission to prevent worsening venous stasis with erythema, warmth, edema, and discomfort. -lasix 40mg daily #Hidradenitis -encourage hygiene with regular showers #Factor V Leiden -continue eliquis #HTN -continue atenolol #Type 2 dm -last a1c 6.3%. Recommend rechecking during this admission -continue metformin. Check daily POC -encourage diabetic diet/snacking #Morbid obesity -weight loss efforts #unspecified asthma -no exacerbation, albuterol prn Thank you for allowing me to participate in this consult. Signing off at this time. Please do not hesitate to call for further questions or for any acute medical issues
[2024-06-03] MEDS: atenoloL 50 MG TABLET PO (11:59)
[2024-06-03] MEDS: metFORMIN HCl 500 MG TABLET PO ×2 (11:59→16:58)
[2024-06-03] MEDS: HaloperidoL 5 MG TABLET PO ×2 (11:59→21:02)
[2024-06-03 12:43] LABS: Neutrophils Absolute Auto 8.5 x10*3/uL (2.0-8.3)
[2024-06-03 12:51] LABS: Creatinine Clr Calc Pharmacy 252.8; Estimated Glomerular Filt Rate > 60
[2024-06-03] MEDS: Furosemide 40 MG TABLET PO (13:58)
[2024-06-03 14:00] VITALS: BP 144/80; PULSE 90
[2024-06-03 19:57] VITALS: BP 130/72; PULSE 101; RESP 20; TEMP 36.7; O2SAT 98
[2024-06-03] MEDS: traZODone HCL 50 MG TABLET PO ×2 (21:02→23:47)
[2024-06-03] MEDS: Acetaminophen 325 MG TABLET 650 MG PO (23:47)
[2024-06-03] MEDS: hydrOXYzine HCL 25 MG TABLET PO (23:47)
[2024-06-03] MEDS: Nystatin Cream 15 GM TUBE 1 APPL TOPICAL (23:51)
[2024-06-04 00:22] LABS: Glucose, Whole Blood 191 mg/dL (60-115)
[2024-06-04 08:00] VITALS: BP 161/97; PULSE 100; RESP 18; TEMP 36.4; O2SAT 95
--- NOTE | 2024-06-04 08:32 | HO.PSYCHPN ---
Subjective Subjective Date of Service: 06/04/24 Reason For Visit: Bipolar type 1 w/ psychotic features Interim History: Met with patient; discussed with team; reviewed chart Patient manic, disorganized, making and less sexual remarks to policy writer typist and other staff, asking for sex, talking about sex and talking about other nonsensical things. Patient laughing uncontrollably as policy writer typist tried to discuss things with her; patient said she did not know why but could not seem to stop. Later patient was more able to talk about medication and agreed to getting back on Depakote which she had been on in the past and is deemed essential to her stability. Mental Status Exam Mental Status Exam Patient Appearance: Disheveled, Perspiring, Unkempt and Malodorous Level of Consciousness: Awake, Alert and Inappropriate Patient Behavior: Talkative, Hypersexual, Distractible and Impulsive Mood Description: Euphoric, Cheerful, Labile, Sad, Nervous and Expansive Affect Description: Labile Ability to Follow Directions: Fair Speech Pattern: Clear, Excessive and Pressured Hallucinations: None Delusions: Paranoid Ideation and Grandiose Thought Process: Racing, Illogical, Distracted and Goal Oriented Thought Content: positive for Loose Associations, positive for Tangential and positive for Disorganized Judgement: Poor Diagnostics Vital Signs (24Hr): Vital Signs - 24 hr 06/03/24 14:00 06/03/24 19:57 06/04/24 08:00 Temperature 98.1 F 97.6 F Pulse Rate 90 101 H 100 Respiratory Rate 20 18 Blood Pressure 144/80 H 130/72 161/97 H Pulse Oximetry 98 95 Oxygen Delivery Method Room Air Room Air BMI result Body Mass Index 64.5 Labs 06/03/24 12:33 Labs: Laboratory Results - last 48 hr 06/03/24 06/04/24 12:33 00:18 Absolute Neuts (auto) 8.5 H Creatinine 0.60 Estim Creat Clear Calc 252.8 Estimated GFR > 60 POC Glucose 191 H Medications Medications Current Medications Acetaminophen (Acetaminophen 325 Mg Tablet) 650 mg PO Q6H PRN PRN Reason: Headache/Pain Mild Scale (1-3) Last Admin: 06/03/24 23:47 Dose: 650 mg Al Hydroxide/Mg Hydroxide (Magnesium Hydrox/Alum Hydrox 30 Ml Oral.Susp) 30 ml PO Q6H PRN PRN Reason: Heartburn/Nausea Apixaban (Apixaban 5 Mg Tablet) 5 mg PO BID [facility] Last Admin: 06/03/24 21:00 Dose: 5 mg Atenolol (Atenolol 50 Mg Tablet) 50 mg PO DAILY [facility]; Protocol Last Admin: 06/03/24 11:59 Dose: 50 mg Atorvastatin Calcium (Atorvastatin Calcium 20 Mg Tablet) 20 mg PO BEDTIME [facility] Last Admin: 06/03/24 21:00 Dose: 20 mg Clozapine (Clozapine 100 Mg Tablet) 100 mg PO BEDTIME [facility] Stop: 06/08/24 21:01 Last Admin: 06/03/24 21:00 Dose: 100 mg Clozapine (Clozapine 25 Mg Tablet) 12.5 mg PO BID [facility] Stop: 06/05/24 21:01 Last Admin: 06/03/24 21:01 Dose: 12.5 mg Divalproex Sodium (Divalproex Sodium 500 Mg Tablet.Dr) 500 mg PO BID [facility] Last Admin: 06/03/24 21:01 Dose: 500 mg Furosemide (Furosemide 40 Mg Tablet) 40 mg PO DAILY [facility]; Protocol Last Admin: 06/03/24 13:58 Dose: 40 mg Haloperidol (Haloperidol 5 Mg Tablet) 5 mg PO TID PRN PRN Reason: Psychosis Last Admin: 06/03/24 21:02 Dose: 5 mg Hydroxyzine HCl (Hydroxyzine Hcl 25 Mg Tablet) 25 mg PO Q6H PRN PRN Reason: Anxiety Last Admin: 06/03/24 23:47 Dose: 25 mg Lactic Acid (Ammonium Lactate 12 % Lotion 226 Gm Bottle) 1 appl TOPICAL BID PRN; Protocol PRN Reason: Dry Skin Lorazepam (Lorazepam 1 Mg Tablet) 1 mg PO BEDTIME [facility] Last Admin: 06/03/24 21:02 Dose: 1 mg Magnesium Hydroxide (Milk Of Magnesia 30 Ml Oral.Susp) 30 ml PO DAILY PRN PRN Reason: Constipation Metformin HCl (Metformin Hcl 500 Mg Tablet) 500 mg PO BIDWM [facility] Last Admin: 06/03/24 16:58 Dose: 500 mg Nystatin (Nystatin Cream 15 Gm Tube) 1 appl TOPICAL BID [facility]; Protocol Last Admin: 06/03/24 23:51 Dose: 1 appl Trazodone HCl (Trazodone Hcl 50 Mg Tablet) 50 mg PO BEDTIME MRX1 PRN PRN Reason: Insomnia Last Admin: 06/03/24 23:47 Dose: 50 mg Allergies Allergies Allergy/AdvReac Type Severity Reaction Status Date / Time kiwi [KIWI] Allergy Mild HIVES Verified 05/29/24 14:16 mold [MOLD EXTRACTS*] Allergy Mild HIVES Verified 05/29/24 14:16 Assessment & Plan Assessment & Plan (1) Bipolar disorder: Qualifiers: Active/Remission status: in full remission Most recent bipolar episode type: mixed Qualified Code(s): F31.78 - Bipolar disorder, in full remission, most recent episode mixed Status: Acute Code(s): F31.9 - Bipolar disorder, unspecified (2) Schizoaffective disorder, bipolar type: Status: Acute Code(s): F25.0 - Schizoaffective disorder, bipolar type Plan 33 yo female with schizoaffective disorder, bipolar type transferred from [facility] ED due to brendon and disorganization after calling 911. She has been decompensating in the last few days per report. Unclear precipitants. She has repeated prolonged hospitalizations. Hospital course: 06/04 patient remains manic, psychotic and hypersexual, disorganized. Patient agreed to restart Depakote Plan: 12 b Start Depakote ER 1000 mg q.h.s. (used to be on intermediate 500 mg b.i.d.) -will order labs - Collateral information from family and providers. - Milieu treatment and group therapy. - Medications: Restart OP medications. - Social work evaluation. - Disposition planning. Patient educated on: diagnosis and medication risk/benefits Informed Consent: does not understand Reason for continued inpatient stay Substantial Risk for: inability to function Time Spent With Patient Time: Total time managing care of this patient today ____ minutes.
[2024-06-04] MEDS: Furosemide 40 MG TABLET PO (08:35)
[2024-06-04] MEDS: Apixaban 5 MG TABLET PO ×2 (08:36→20:43)
[2024-06-04] MEDS: atenoloL 50 MG TABLET PO (08:36)
[2024-06-04] MEDS: metFORMIN HCl 500 MG TABLET PO ×2 (08:36→17:12)
[2024-06-04] MEDS: cloZAPine 25 MG TABLET 12.5 MG PO ×2 (08:36→20:42)
[2024-06-04] MEDS: Divalproex Sodium 500 MG TABLET.DR PO ×2 (08:37→20:43)
[2024-06-04 08:39] LABS: Glucose, Whole Blood 170 mg/dL (60-115)
[2024-06-04] MEDS: Nystatin Cream 15 GM TUBE 1 APPL TOPICAL (10:09)
[2024-06-04] MEDS: HaloperidoL 5 MG TABLET PO ×2 (13:21→17:12)
[2024-06-04] MEDS: hydrOXYzine HCL 25 MG TABLET PO (13:21)
[2024-06-04 19:58] VITALS: BP 144/75; PULSE 110; RESP 14; TEMP 36.8; O2SAT 94
[2024-06-04] MEDS: Atorvastatin Calcium 20 MG TABLET PO (20:43)
[2024-06-04] MEDS: Acetaminophen 325 MG TABLET 650 MG PO (20:43)
[2024-06-04] MEDS: cloZAPine 100 MG TABLET PO (20:43)
[2024-06-04] MEDS: LORazepam 1 MG TABLET PO (20:43)
[2024-06-04] MEDS: Divalproex Sodium ER 500 MG TAB.ER.24H 1000 MG PO (20:43)
[2024-06-04] MEDS: traZODone HCL 50 MG TABLET PO (20:43)
[2024-06-05 07:58] VITALS: BP 135/80; PULSE 119; RESP 18; TEMP 36.5; O2SAT 95
[2024-06-05 08:20] LABS: Glucose, Whole Blood 180 mg/dL (60-115)
[2024-06-05] MEDS: Furosemide 40 MG TABLET PO (08:29)
[2024-06-05] MEDS: cloZAPine 25 MG TABLET 12.5 MG PO (08:29)
[2024-06-05] MEDS: metFORMIN HCl 500 MG TABLET PO ×2 (08:29→16:43)
[2024-06-05] MEDS: Apixaban 5 MG TABLET PO ×2 (08:30→21:19)
[2024-06-05] MEDS: atenoloL 50 MG TABLET PO (08:30)
[2024-06-05] MEDS: Divalproex Sodium 500 MG TABLET.DR PO (08:30)
[2024-06-05] MEDS: Nystatin Cream 15 GM TUBE 1 APPL TOPICAL ×2 (08:37→22:04)
[2024-06-05] MEDS: hydrOXYzine HCL 25 MG TABLET PO (16:43)
--- NOTE | 2024-06-05 17:26 | P.PNPSI_ITS ---
Subjective Subjective Date of Service: 06/05/24 Reason For Visit: Bipolar type 1 w/ psychotic features Interim History: Met with patient; discussed with team Patient remains manic, psychotic and sexually focused making constant sexual remarks to staff. Patient however willing to sign a CV and remain on the unit for treatment. Adherent with medications Collateral provided reports that possible 1 reason for decompensation was that the VNA was reduced to once a week wears formally once a day. They say around 05/29 things started to get off Mental Status Exam Mental Status Exam Patient Appearance: Disheveled, Perspiring, Unkempt and Malodorous Level of Consciousness: Awake, Alert and Inappropriate Patient Behavior: Talkative, Hypersexual, Distractible and Impulsive Mood Description: Euphoric, Cheerful, Labile, Sad, Nervous and Expansive Affect Description: Labile Ability to Follow Directions: Fair Speech Pattern: Clear, Excessive and Pressured Hallucinations: None Delusions: Paranoid Ideation and Grandiose Thought Process: Racing, Illogical, Distracted and Goal Oriented Thought Content: positive for Loose Associations, positive for Tangential and positive for Disorganized Judgement: Poor Diagnostics Vital Signs (24Hr): Vital Signs - 24 hr 06/04/24 19:58 06/05/24 07:58 Temperature 98.2 F 97.7 F Pulse Rate 110 H 119 H Respiratory Rate 14 18 Blood Pressure 144/75 H 135/80 Pulse Oximetry 94 95 Oxygen Delivery Method Room Air Room Air BMI result Body Mass Index 64.5 Labs 06/03/24 12:33 Labs: Laboratory Results - last 48 hr 06/04/24 06/04/24 06/05/24 00:18 08:35 08:15 POC Glucose 191 H 170 H 180 H Medications Medications Current Medications Acetaminophen (Acetaminophen 325 Mg Tablet) 650 mg PO Q6H PRN PRN Reason: Headache/Pain Mild Scale (1-3) Last Admin: 06/04/24 20:43 Dose: 650 mg Al Hydroxide/Mg Hydroxide (Magnesium Hydrox/Alum Hydrox 30 Ml Oral.Susp) 30 ml PO Q6H PRN PRN Reason: Heartburn/Nausea Apixaban (Apixaban 5 Mg Tablet) 5 mg PO BID [facility] Last Admin: 06/05/24 08:30 Dose: 5 mg Atenolol (Atenolol 50 Mg Tablet) 50 mg PO DAILY [facility]; Protocol Last Admin: 06/05/24 08:30 Dose: 50 mg Atorvastatin Calcium (Atorvastatin Calcium 20 Mg Tablet) 20 mg PO BEDTIME [facility] Last Admin: 06/04/24 20:43 Dose: 20 mg Clozapine (Clozapine 25 Mg Tablet) 25 mg PO DAILY [facility] Clozapine (Clozapine 100 Mg Tablet) 100 mg PO BEDTIME [facility] Clozapine (Clozapine 25 Mg Tablet) 25 mg PO BEDTIME [facility] Divalproex Sodium (Divalproex Sodium Er 500 Mg Tab.Er.24h) 1,000 mg PO BEDTIME [facility] Last Admin: 06/04/24 20:43 Dose: 1,000 mg Furosemide (Furosemide 40 Mg Tablet) 40 mg PO DAILY [facility]; Protocol Last Admin: 06/05/24 08:29 Dose: 40 mg Haloperidol (Haloperidol 5 Mg Tablet) 5 mg PO TID PRN PRN Reason: Psychosis Last Admin: 06/04/24 17:12 Dose: 5 mg Hydroxyzine HCl (Hydroxyzine Hcl 25 Mg Tablet) 25 mg PO Q6H PRN PRN Reason: Anxiety Last Admin: 06/05/24 16:43 Dose: 25 mg Lactic Acid (Ammonium Lactate 12 % Lotion 226 Gm Bottle) 1 appl TOPICAL BID PRN; Protocol PRN Reason: Dry Skin Lorazepam (Lorazepam 1 Mg Tablet) 1 mg PO BEDTIME [facility] Last Admin: 06/04/24 20:43 Dose: 1 mg Magnesium Hydroxide (Milk Of Magnesia 30 Ml Oral.Susp) 30 ml PO DAILY PRN PRN Reason: Constipation Metformin HCl (Metformin Hcl 500 Mg Tablet) 500 mg PO BIDWM [facility] Last Admin: 06/05/24 16:43 Dose: 500 mg Nystatin (Nystatin Cream 15 Gm Tube) 1 appl TOPICAL BID [facility]; Protocol Last Admin: 06/05/24 08:37 Dose: 1 appl Trazodone HCl (Trazodone Hcl 50 Mg Tablet) 50 mg PO BEDTIME MRX1 PRN PRN Reason: Insomnia Last Admin: 06/04/24 20:43 Dose: 50 mg Allergies Allergies Allergy/AdvReac Type Severity Reaction Status Date / Time kiwi [KIWI] Allergy Mild HIVES Verified 05/29/24 14:16 mold [MOLD EXTRACTS*] Allergy Mild HIVES Verified 05/29/24 14:16 Assessment & Plan Assessment & Plan (1) Bipolar disorder: Qualifiers: Active/Remission status: in full remission Most recent bipolar episode type: mixed Qualified Code(s): F31.78 - Bipolar disorder, in full remission, most recent episode mixed Status: Acute Code(s): F31.9 - Bipolar disorder, unspecified (2) Schizoaffective disorder, bipolar type: Status: Acute Code(s): F25.0 - Schizoaffective disorder, bipolar type Plan 33 yo female with schizoaffective disorder, bipolar type transferred from [facility] ED due to brendon and disorganization after calling 911. She has been decompensating in the last few days per report. Unclear precipitants. She has repeated prolonged hospitalizations. Hospital course: 06/04 patient remains manic, psychotic and hypersexual, disorganized. Patient agreed to restart Depakote 06/05 Patient remains manic, psychotic and sexually focused making constant sexual remarks to staff. Patient however willing to sign a CV and remain on the unit for treatment. Adherent with medications Collateral provided reports that possible 1 reason for decompensation was that the VNA was reduced to once a week wears formally once a day. They say around 05/29 things started to get off Plan: cv continue Depakote ER 1000 mg q.h.s. (used to be on intermediate 500 mg b.i.d.) -will order labs Continue Clozaril 25 mg daily Continue Clozaril 125 mg q.h.s. - Collateral information from family and providers. - Milieu treatment and group therapy. - Medications: Restart OP medications. - Social work evaluation. - Disposition planning. Patient educated on: diagnosis, medication risk/benefits and therapeutic strategies Informed Consent: understands, does not understand and further education needed Reason for continued inpatient stay Substantial Risk for: inability to function Time Spent With Patient Time: Total time managing care of this patient today ____ minutes.
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
--- NOTE | 2024-06-05 18:46 | PC.NURSE ---
Pt's mother Kiera called to check on her. Received verbal permission from patient to discuss her care with her mother.
[2024-06-05 20:00] VITALS: BP 128/74; PULSE 104; TEMP 36.6; O2SAT 97
[2024-06-05] MEDS: traZODone HCL 50 MG TABLET PO (21:17)
[2024-06-05] MEDS: Atorvastatin Calcium 20 MG TABLET PO (21:19)
[2024-06-05] MEDS: LORazepam 1 MG TABLET PO (21:20)
[2024-06-05] MEDS: Divalproex Sodium ER 500 MG TAB.ER.24H 1000 MG PO (21:20)
[2024-06-05] MEDS: cloZAPine 100 MG TABLET PO (21:20)
[2024-06-05] MEDS: cloZAPine 25 MG TABLET PO (21:20)
[2024-06-05] MEDS: Ammonium Lactate 12 % Lotion 226 GM BOTTLE 1 APPL TOPICAL (22:16)
[2024-06-06 08:00] VITALS: BP 135/82; PULSE 107; RESP 18; TEMP 36.5; O2SAT 95
[2024-06-06] MEDS: cloZAPine 25 MG TABLET PO ×2 (08:08→21:03)
[2024-06-06] MEDS: Furosemide 40 MG TABLET PO (08:08)
[2024-06-06] MEDS: metFORMIN HCl 500 MG TABLET PO ×2 (08:08→17:06)
[2024-06-06] MEDS: Apixaban 5 MG TABLET PO ×2 (08:08→21:02)
[2024-06-06] MEDS: atenoloL 50 MG TABLET PO (08:08)
[2024-06-06 08:10] LABS: Glucose, Whole Blood 193 mg/dL (60-115)
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
[2024-06-06 20:00] VITALS: BP 143/71; PULSE 109; RESP 14; TEMP 36.7; O2SAT 96
[2024-06-06] MEDS: Divalproex Sodium ER 500 MG TAB.ER.24H 1000 MG PO (21:02)
[2024-06-06] MEDS: LORazepam 1 MG TABLET PO (21:02)
[2024-06-06] MEDS: traZODone HCL 50 MG TABLET PO (21:03)
[2024-06-06] MEDS: Atorvastatin Calcium 20 MG TABLET PO (21:03)
[2024-06-06] MEDS: cloZAPine 100 MG TABLET PO (21:03)
[2024-06-07 07:00] VITALS: BMI 66.8
[2024-06-07 08:02] LABS: Glucose, Whole Blood 164 mg/dL (60-115)
--- NOTE | 2024-06-07 08:43 | P.PNPSI_ITS ---
Subjective Subjective Date of Service: 06/07/24 Reason For Visit: Bipolar type 1 w/ psychotic features Interim History: Met with patient; discussed with team Patient how little more calm today and a little less sexually preoccupied; still disorganized and asking automatic typewriter inspector or staff about nonsensical references. Patient says I I need to talk to DrJc...I need a facial facial... And a quarter pounder with just cheese... Mental Status Exam Mental Status Exam Patient Appearance: Disheveled, Perspiring, Unkempt and Malodorous Level of Consciousness: Awake, Alert and Inappropriate Patient Behavior: Talkative, Hypersexual, Distractible and Impulsive Mood Description: Euphoric, Cheerful, Labile, Sad, Nervous and Expansive Affect Description: Labile Ability to Follow Directions: Fair Speech Pattern: Clear, Excessive and Pressured Hallucinations: None Delusions: Paranoid Ideation and Grandiose Thought Process: Racing, Illogical, Distracted and Goal Oriented Thought Content: positive for Loose Associations, positive for Tangential and positive for Disorganized Judgement: Poor Diagnostics Vital Signs (24Hr): Vital Signs - 24 hr 06/06/24 20:00 Temperature 98.1 F Pulse Rate 109 H Respiratory Rate 14 Blood Pressure 143/71 H Pulse Oximetry 96 Oxygen Delivery Method Room Air BMI result Body Mass Index 64.5 Labs 06/03/24 12:33 Labs: Laboratory Results - last 48 hr 06/06/24 06/07/24 08:06 07:56 POC Glucose 193 H 164 H Medications Medications Current Medications Acetaminophen (Acetaminophen 325 Mg Tablet) 650 mg PO Q6H PRN PRN Reason: Headache/Pain Mild Scale (1-3) Last Admin: 06/04/24 20:43 Dose: 650 mg Al Hydroxide/Mg Hydroxide (Magnesium Hydrox/Alum Hydrox 30 Ml Oral.Susp) 30 ml PO Q6H PRN PRN Reason: Heartburn/Nausea Apixaban (Apixaban 5 Mg Tablet) 5 mg PO BID [facility] Last Admin: 06/06/24 21:02 Dose: 5 mg Atenolol (Atenolol 50 Mg Tablet) 50 mg PO DAILY [facility]; Protocol Last Admin: 06/06/24 08:08 Dose: 50 mg Atorvastatin Calcium (Atorvastatin Calcium 20 Mg Tablet) 20 mg PO BEDTIME [facility] Last Admin: 06/06/24 21:03 Dose: 20 mg Clozapine (Clozapine 25 Mg Tablet) 25 mg PO DAILY [facility] Last Admin: 06/06/24 08:08 Dose: 25 mg Clozapine (Clozapine 100 Mg Tablet) 100 mg PO BEDTIME [facility] Last Admin: 06/06/24 21:03 Dose: 100 mg Clozapine (Clozapine 25 Mg Tablet) 25 mg PO BEDTIME [facility] Last Admin: 06/06/24 21:03 Dose: 25 mg Divalproex Sodium (Divalproex Sodium Er 500 Mg Tab.Er.24h) 1,000 mg PO BEDTIME [facility] Last Admin: 06/06/24 21:02 Dose: 1,000 mg Furosemide (Furosemide 40 Mg Tablet) 40 mg PO DAILY [facility]; Protocol Last Admin: 06/06/24 08:08 Dose: 40 mg Haloperidol (Haloperidol 5 Mg Tablet) 5 mg PO TID PRN PRN Reason: Psychosis Last Admin: 06/04/24 17:12 Dose: 5 mg Hydroxyzine HCl (Hydroxyzine Hcl 25 Mg Tablet) 25 mg PO Q6H PRN PRN Reason: Anxiety Last Admin: 06/05/24 16:43 Dose: 25 mg Lactic Acid (Ammonium Lactate 12 % Lotion 226 Gm Bottle) 1 appl TOPICAL BID PRN; Protocol PRN Reason: Dry Skin Last Admin: 06/05/24 22:16 Dose: 1 appl Lorazepam (Lorazepam 1 Mg Tablet) 1 mg PO BEDTIME [facility] Last Admin: 06/06/24 21:02 Dose: 1 mg Magnesium Hydroxide (Milk Of Magnesia 30 Ml Oral.Susp) 30 ml PO DAILY PRN PRN Reason: Constipation Metformin HCl (Metformin Hcl 500 Mg Tablet) 500 mg PO BIDWM [facility] Last Admin: 06/06/24 17:06 Dose: 500 mg Nystatin (Nystatin Cream 15 Gm Tube) 1 appl TOPICAL BID [facility]; Protocol Last Admin: 06/07/24 02:42 Dose: Not Given Trazodone HCl (Trazodone Hcl 50 Mg Tablet) 50 mg PO BEDTIME MRX1 PRN PRN Reason: Insomnia Last Admin: 06/06/24 21:03 Dose: 50 mg Allergies Allergies Allergy/AdvReac Type Severity Reaction Status Date / Time kiwi [KIWI] Allergy Mild HIVES Verified 05/29/24 14:16 mold [MOLD EXTRACTS*] Allergy Mild HIVES Verified 05/29/24 14:16 Assessment & Plan Assessment & Plan (1) Bipolar disorder: Qualifiers: Active/Remission status: in full remission Most recent bipolar episode type: mixed Qualified Code(s): F31.78 - Bipolar disorder, in full remission, most recent episode mixed Status: Acute Code(s): F31.9 - Bipolar disorder, unspecified (2) Schizoaffective disorder, bipolar type: Status: Acute Code(s): F25.0 - Schizoaffective disorder, bipolar type Plan 33 yo female with schizoaffective disorder, bipolar type transferred from [facility] ED due to brendon and disorganization after calling 911. She has been decompensating in the last few days per report. Unclear precipitants. She has repeated prolonged hospitalizations. Hospital course: 06/04 patient remains manic, psychotic and hypersexual, disorganized. Patient agreed to restart Depakote 06/05 Patient remains manic, psychotic and sexually focused making constant sexual remarks to staff. Patient however willing to sign a CV and remain on the unit for treatment. Adherent with medications Collateral provided reports that possible 1 reason for decompensation was that the VNA was reduced to once a week wears formally once a day. They say around 05/29 things started to get off 06/06 Patient continues to be hypersexual making sexualized comments to staff. Patient continues to insist that she is , she knew the sonogram and that she needs a Pap smear, chronic delusional thoughts which do not respond to reality testing. Patient remains making bizarre nonsensical references and will laugh uncontrollably and inappropriately at times. Conversely, she was able to have a logical and educated discussion about her diabetes. Shared Services And Outsourcing Manager explained that sugars were elevated which she understood and was able to discuss whether to increase metformin, which she is concerned will cause loose stool verses getting back on Trulicity which she said she was on in the past and helped her lose weight. Shared Services And Outsourcing Manager agreed to consider options. 06/07 perhaps a little less manic though still disorganized; reviewed Depakote level which is subtherapeutic; discussed with patient who agrees to increase dose Plan: cv Increase to Depakote ER 1500 mg q.h.s. (used to be on intermediate 500 mg b.i.d.) -labs ordered for Depakote level Continue Clozaril 25 mg daily Continue Clozaril 125 mg q.h.s. - Collateral information from family and providers. - Milieu treatment and group therapy. - Medications: Restart OP medications. - Social work evaluation. - Disposition planning. Patient educated on: diagnosis and medication risk/benefits Informed Consent: understands, does not understand and further education needed Reason for continued inpatient stay Substantial Risk for: inability to function Time Spent With Patient Time: Total time managing care of this patient today ____ minutes.
[2024-06-07 08:53] LABS: Ammonia 27 umol/L (13-55)
[2024-06-07 08:58] LABS: Valproate 45.2 mcg/mL (50.0-100.0)
[2024-06-07] MEDS: metFORMIN HCl 500 MG TABLET PO ×2 (08:58→17:57)
[2024-06-07 09:04] VITALS: BP 140/85; PULSE 112; RESP 18; TEMP 36.4; O2SAT 96
[2024-06-07 09:04] LABS: Alanine Aminotransferase 13 U/L (0-31); Albumin Level 3.9 g/dL (3.5-5.0); Alkaline Phosphatase 79 U/L (39-117); Aspartate Amino Transferase 11 U/L (5-31); Bilirubin Direct 0.2 mg/dL (0.0-0.5); Bilirubin Total 0.3 mg/dL (0.0-1.0); Total Protein 6.9 g/dL (6.5-8.0)
[2024-06-07] MEDS: Apixaban 5 MG TABLET PO ×2 (09:17→20:20)
[2024-06-07] MEDS: atenoloL 50 MG TABLET PO (09:17)
[2024-06-07] MEDS: Furosemide 40 MG TABLET PO (09:18)
[2024-06-07] MEDS: cloZAPine 25 MG TABLET PO ×2 (09:18→20:20)
[2024-06-07] MEDS: Nystatin Cream 15 GM TUBE 1 APPL TOPICAL ×2 (09:19→22:20)
--- NOTE | 2024-06-07 15:07 | P.EN_ITS ---
Event Note Date of Service: 06/07/24 Event Note: 33 yo f seen at bedside at RN request for patient reassurance regarding worsening BLE edema. Pt has had multiple evaluations for chronic BLE edema with chronic venous stasis dermatitis and has a hx of cellulitis complicated by sepsis. Nurse is currently cleaning her feet to apply her compression stockings. Saw pt on unit earlier today, lots of standing, not wearing socks or stockings. Nurse notes BLE is slightly worse than previous. There is circumferential bunny thema of the distal aspect of the RLE and the posterior LLE. No significant warmth. No fever or tachypnea. Plan: likely chronic venous stasis dermatitis. no fever or tachypnea. will check CBC. encourage walking, compression stockings, elevate legs, wear socks while walking on the unit. if pt develops fever please contact us, little concern for cellulitis at this time. re-evaluate tomorrow. Time Spent With Patient Time: Total time managing care of this patient today ____ minutes.
[2024-06-07 15:56] LABS: MANUAL DIFF FLAG NO
[2024-06-07 16:02] LABS: Basophils Absolute Auto 0.1 X10*3/uL (0.0-0.2); Basophils Percent Auto 0.6 % (0-2); Eosinophils Absolute Auto 0.2 X10*3/uL (0.0-0.4); Eosinophils Percent Auto 1.8 % (0-4); Hematocrit 34.7 % (37.0-47.0); Hemoglobin 11.6 g/dl (12.0-16.0); Imm Gran Abs Auto 0.15 X10*3/uL (0.00-0.03); Imm Gran Pct Auto 1.2 % (0.0-0.4); Lymphocytes Absolute Auto 3.3 X10*3/uL (1.2-4.9); Lymphocytes Percent Auto 26.7 % (20-40); Mean Corpuscular HGB Conc 33.4 g/dl (31.0-35.0); Mean Corpuscular Volume 83.6 fL (80.0-98.0); Mean Platelet Volume 10.5 fL (9.4-12.3); Monocytes Absolute Auto 1.1 X10*3/uL (0.1-1.2); Monocytes Percent Auto 9.1 % (2-11); Neutrophils Absolute Auto 7.5 x10*3/uL (2.0-8.3); Neutrophils Percent Auto 60.6 % (45-73); Platelet Count 187 X10*3/uL (160-400); Red Blood Count 4.15 X10*6/uL (4.20-5.50); Red Cell Distribution Width 14.1 % (11.0-16.0); White Blood Count 12.3 X10*3/uL (4.8-10.8)
[2024-06-07 20:00] VITALS: BP 114/83; PULSE 107; RESP 16; TEMP 36.6; O2SAT 96
[2024-06-07] MEDS: LORazepam 1 MG TABLET PO (20:19)
[2024-06-07] MEDS: Divalproex Sodium ER 500 MG TAB.ER.24H 1500 MG PO (20:19)
[2024-06-07] MEDS: Atorvastatin Calcium 20 MG TABLET PO (20:19)
[2024-06-07] MEDS: traZODone HCL 50 MG TABLET PO (20:19)
[2024-06-07] MEDS: cloZAPine 100 MG TABLET PO (20:20)
[2024-06-08] MEDS: Acetaminophen 325 MG TABLET 650 MG PO ×2 (05:15→23:03)
[2024-06-08 09:24] VITALS: BP 132/76; PULSE 82; RESP 16; TEMP 37; O2SAT 96
--- NOTE | 2024-06-08 09:32 | P.PNPSI_ITS ---
Subjective Subjective Date of Service: 06/08/24 Reason For Visit: Bipolar type 1 w/ psychotic features Interim History: met with patient; discussed with team; discussed DM management with hospitalist ELIGIO who discussed meds with patient who agrees to increase metformin rather than start Trulicity pt remains disorganized, making non-sensical statements; pt says she needs to speak with life insurance underwriter but will then say a [place] of inappropriate, irrelevant or bizzare things. Keeps referring to being She remains complaint with medication. Mental Status Exam Mental Status Exam Patient Appearance: Disheveled, Perspiring, Unkempt and Malodorous Level of Consciousness: Awake, Alert and Inappropriate Patient Behavior: Talkative, Hypersexual, Distractible and Impulsive Mood Description: Euphoric, Cheerful, Labile, Sad, Nervous and Expansive Affect Description: Labile Ability to Follow Directions: Fair Speech Pattern: Clear, Excessive and Pressured Hallucinations: None Delusions: Paranoid Ideation and Grandiose Thought Process: Racing, Illogical, Distracted and Goal Oriented Thought Content: positive for Loose Associations, positive for Tangential and positive for Disorganized Judgement: Poor Diagnostics Vital Signs (24Hr): Vital Signs - 24 hr 06/07/24 20:00 Temperature 97.9 F Pulse Rate 107 H Respiratory Rate 16 Blood Pressure 114/83 Pulse Oximetry 96 Oxygen Delivery Method Room Air BMI result Body Mass Index 66.8 Labs 06/07/24 15:51 06/03/24 12:33 Labs: Laboratory Results - last 48 hr 06/07/24 06/07/24 06/07/24 07:56 08:31 15:51 WBC 12.3 H RBC 4.15 L Hgb 11.6 L Hct 34.7 L MCV 83.6 MCH 28.0 MCHC 33.4 RDW 14.1 Plt Count 187 MPV 10.5 Immature Gran % (Auto) 1.2 H Neut % (Auto) 60.6 Lymph % (Auto) 26.7 [place] % (Auto) 9.1 Eos % (Auto) 1.8 Baso % (Auto) 0.6 Lymph # (Auto) 3.3 [place] # (Auto) 1.1 Eos # (Auto) 0.2 Baso # (Auto) 0.1 Abs Immat Gran (auto) 0.15 H Absolute Neuts (auto) 7.5 Absolute Nucleated RBC 0.000 Nucleated RBC % (auto) 0.0 POC Glucose 164 H Total Bilirubin 0.3 Direct Bilirubin 0.2 AST 11 ALT 13 Alkaline Phosphatase 79 Ammonia 27 Total Protein 6.9 Albumin 3.9 Valproic Acid 45.2 L Medications Medications Current Medications Acetaminophen (Acetaminophen 325 Mg Tablet) 650 mg PO Q6H PRN PRN Reason: Headache/Pain Mild Scale (1-3) Last Admin: 06/08/24 05:15 Dose: 650 mg Al Hydroxide/Mg Hydroxide (Magnesium Hydrox/Alum Hydrox 30 Ml Oral.Susp) 30 ml PO Q6H PRN PRN Reason: Heartburn/Nausea Apixaban (Apixaban 5 Mg Tablet) 5 mg PO BID INOCENCIO Last Admin: 06/07/24 20:20 Dose: 5 mg Atenolol (Atenolol 50 Mg Tablet) 50 mg PO DAILY INOCENCIO; Protocol Last Admin: 06/07/24 09:17 Dose: 50 mg Atorvastatin Calcium (Atorvastatin Calcium 20 Mg Tablet) 20 mg PO BEDTIME INOCENCIO Last Admin: 06/07/24 20:19 Dose: 20 mg Clozapine (Clozapine 25 Mg Tablet) 25 mg PO DAILY INOCENCIO Last Admin: 06/07/24 09:18 Dose: 25 mg Clozapine (Clozapine 100 Mg Tablet) 100 mg PO BEDTIME INOCENCIO Last Admin: 06/07/24 20:20 Dose: 100 mg Clozapine (Clozapine 25 Mg Tablet) 25 mg PO BEDTIME INOCENCIO Last Admin: 06/07/24 20:20 Dose: 25 mg Divalproex Sodium (Divalproex Sodium Er 500 Mg Tab.Er.24h) 1,500 mg PO BEDTIME INOCENCIO Last Admin: 06/07/24 20:19 Dose: 1,500 mg Furosemide (Furosemide 40 Mg Tablet) 40 mg PO DAILY INOCENCIO; Protocol Last Admin: 06/07/24 09:18 Dose: 40 mg Haloperidol (Haloperidol 5 Mg Tablet) 5 mg PO TID PRN PRN Reason: Psychosis Last Admin: 06/04/24 17:12 Dose: 5 mg Hydroxyzine HCl (Hydroxyzine Hcl 25 Mg Tablet) 25 mg PO Q6H PRN PRN Reason: Anxiety Last Admin: 06/05/24 16:43 Dose: 25 mg Lactic Acid (Ammonium Lactate 12 % Lotion 226 Gm Bottle) 1 appl TOPICAL BID PRN; Protocol PRN Reason: Dry Skin Last Admin: 06/05/24 22:16 Dose: 1 appl Lorazepam (Lorazepam 1 Mg Tablet) 1 mg PO BEDTIME INOCENCIO Last Admin: 06/07/24 20:19 Dose: 1 mg Magnesium Hydroxide (Milk Of Magnesia 30 Ml Oral.Susp) 30 ml PO DAILY PRN PRN Reason: Constipation Metformin HCl (Metformin Hcl 500 Mg Tablet) 500 mg PO BIDWM INOCENCIO Last Admin: 06/07/24 17:57 Dose: 500 mg Nystatin (Nystatin Cream 15 Gm Tube) 1 appl TOPICAL BID INOCENCIO; Protocol Last Admin: 06/07/24 22:20 Dose: 1 appl Trazodone HCl (Trazodone Hcl 50 Mg Tablet) 50 mg PO BEDTIME MRX1 PRN PRN Reason: Insomnia Last Admin: 06/07/24 20:19 Dose: 50 mg Allergies Allergies Allergy/AdvReac Type Severity Reaction Status Date / Time kiwi [KIWI] Allergy Mild HIVES Verified 05/29/24 14:16 mold [MOLD EXTRACTS*] Allergy Mild HIVES Verified 05/29/24 14:16 Assessment & Plan Assessment & Plan (1) Bipolar disorder: Qualifiers: Active/Remission status: in full remission Most recent bipolar episode type: mixed Qualified Code(s): F31.78 - Bipolar disorder, in full remission, most recent episode mixed Status: Acute Code(s): F31.9 - Bipolar disorder, unspecified (2) Schizoaffective disorder, bipolar type: Status: Acute Code(s): F25.0 - Schizoaffective disorder, bipolar type Plan 33 yo female with schizoaffective disorder, bipolar type transferred from [facility] ED due to brendon and disorganization after calling 911. She has been decompensating in the last few days per report. Unclear precipitants. She has repeated prolonged hospitalizations. Hospital course: 06/04 patient remains manic, psychotic and hypersexual, disorganized. Patient agreed to restart Depakote 06/05 Patient remains manic, psychotic and sexually focused making constant sexual remarks to staff. Patient however willing to sign a CV and remain on the unit for treatment. Adherent with medications Collateral provided reports that possible 1 reason for decompensation was that the VNA was reduced to once a week wears formally once a day. They say around 05/29 things started to get off 06/06 Patient continues to be hypersexual making sexualized comments to staff. Patient continues to insist that she is , she knew the sonogram and that she needs a Pap smear, chronic delusional thoughts which do not respond to reality testing. Patient remains making bizarre nonsensical references and will laugh uncontrollably and inappropriately at times. Conversely, she was able to have a logical and educated discussion about her diabetes. Prize Fighter explained that sugars were elevated which she understood and was able to discuss whether to increase metformin, which she is concerned will cause loose stool verses getting back on Trulicity which she said she was on in the past and helped her lose weight. Prize Fighter agreed to consider options. 06/07 perhaps a little less manic though still disorganized; reviewed Depakote level which is subtherapeutic; discussed with patient who agrees to increase dose 06/08 continue tx plan, allo more time for current med regimen to work Plan: cv Increase to Depakote ER 1500 mg q.h.s. (used to be on intermediate 500 mg b.i.d.) -labs ordered for Depakote level Continue Clozaril 25 mg daily Continue Clozaril 125 mg q.h.s. increase metformin to 1000mg bid - Collateral information from family and providers. - Milieu treatment and group therapy. - Medications: Restart OP medications. - Social work evaluation. - Disposition planning. Patient educated on: diagnosis, medication risk/benefits and medical condition Informed Consent: understands, does not understand and further education needed Reason for continued inpatient stay Substantial Risk for: inability to function Time Spent With Patient Time: Total time managing care of this patient today ____ minutes.
[2024-06-08 09:53] VITALS: BP 132/62
[2024-06-08] MEDS: Furosemide 40 MG TABLET PO (09:53)
[2024-06-08 09:54] VITALS: BP 136/66; PULSE 82
[2024-06-08] MEDS: metFORMIN HCl 500 MG TABLET PO (09:54)
[2024-06-08] MEDS: cloZAPine 25 MG TABLET PO ×2 (09:54→23:03)
[2024-06-08] MEDS: Apixaban 5 MG TABLET PO ×2 (09:54→23:02)
[2024-06-08] MEDS: atenoloL 50 MG TABLET PO (09:54)
--- NOTE | 2024-06-08 12:25 | P.EN_ITS ---
Event Note Date of Service: 06/08/24 Event Note: The patient is a 31-year-old female with a PMH significant for no [id number] type 2 diabetes, HTN, HLD, factor 5 deficiency, asthma, obesity class 3 with BMI >66, chronic venous stasis dermatitis, and bipolar disorder who was admitted to [facility] psychiatry unit. Hospitalist consult for diabetes management and question of starting Trulicity. Patient's blood sugars have been reasonably well-controlled on the unit ranging from 160s-190 with last A1c 6.3. Patient currently on metformin ER 500mg, though when approached by psychiatric provider she initially refused increasing dosage and requested having Trulicity brought in by her father since we do not have that on formulary. Reports has been on Trulicity recently in the past which was prescribed by her high school science teacher, but has not seen them in some months. Review of medication claim history from the past year does not show she has been on Trulicity during this time. Spoke to pt increasing dosage of metformin rather than adding on an additional medication, and she agreed to medication increase. Will increase metformin to 1000 mg b.i.d. As for patient's persistent edema, continue to encourage compression stockings, ambulation, and elevating legs while in bed. Continue Lasix 40 mg daily. Pt's lo wer leg erythema secondary to chronic venous stasis dermatitis, which is a good cellulitis mimic. Concern for cellulitis would be indicated by asymmetric erythema (especially extending above knee) and/or pt developing fever. Please also encourage daily bathing and footwear. Time Spent With Patient Time: Total time managing care of this patient today ____ minutes.
[2024-06-08] MEDS: metFORMIN HCl 1,000 MG TABLET 1000 MG PO (17:41)
--- NOTE | 2024-06-08 18:39 | PC.NURSE ---
pt refused TEDS despite education and encouragement. Maybe tomorrow . Pt was agreeable to elevating legs and occasionally wearing non-slip socks
[2024-06-08 20:00] VITALS: BP 140/78; PULSE 99; RESP 16; TEMP 37; O2SAT 99
[2024-06-08] MEDS: LORazepam 1 MG TABLET PO (23:02)
[2024-06-08] MEDS: traZODone HCL 50 MG TABLET PO (23:02)
[2024-06-08] MEDS: Nystatin Cream 15 GM TUBE 1 APPL TOPICAL (23:02)
[2024-06-08] MEDS: Atorvastatin Calcium 20 MG TABLET PO (23:02)
[2024-06-08] MEDS: cloZAPine 100 MG TABLET PO (23:03)
[2024-06-08] MEDS: Divalproex Sodium ER 500 MG TAB.ER.24H 1500 MG PO (23:03)
--- NOTE | 2024-06-09 09:01 | HO.PSYCHPN ---
Subjective Subjective Date of Service: 06/09/24 Reason For Visit: Bipolar type 1 w/ psychotic features Interim History: Met With patient; discussed with team same presentation; started getting loud, yelling about $1000 and said she needed to call 911. able to calm down. 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 Mental Status Exam Mental Status Exam Patient Appearance: Disheveled, Perspiring, Unkempt and Malodorous Level of Consciousness: Awake, Alert and Inappropriate Patient Behavior: Talkative, Hypersexual, Distractible and Impulsive Mood Description: Euphoric, Cheerful, Labile, Sad, Nervous and Expansive Affect Description: Labile Ability to Follow Directions: Fair Speech Pattern: Clear, Excessive and Pressured Hallucinations: None Delusions: Paranoid Ideation and Grandiose Thought Process: Racing, Illogical, Distracted and Goal Oriented Thought Content: positive for Loose Associations, positive for Tangential and positive for Disorganized Judgement: Poor Diagnostics Vital Signs (24Hr): Vital Signs - 24 hr 06/08/24 09:24 06/08/24 09:53 06/08/24 09:54 Temperature 98.6 F Pulse Rate 82 82 Respiratory Rate 16 Blood Pressure 132/76 132/62 136/66 Pulse Oximetry 96 Oxygen Delivery Method Room Air 06/08/24 20:00 Temperature 98.6 F Pulse Rate 99 Respiratory Rate 16 Blood Pressure 140/78 H Pulse Oximetry 99 Oxygen Delivery Method Room Air BMI result Body Mass Index 66.8 Labs 06/07/24 15:51 06/03/24 12:33 Labs: Laboratory Results - last 48 hr 06/07/24 06/07/24 08:31 15:51 WBC 12.3 H RBC 4.15 L Hgb 11.6 L Hct 34.7 L MCV 83.6 MCH 28.0 MCHC 33.4 RDW 14.1 Plt Count 187 MPV 10.5 Immature Gran % (Auto) 1.2 H Neut % (Auto) 60.6 Lymph % (Auto) 26.7 [place] % (Auto) 9.1 Eos % (Auto) 1.8 Baso % (Auto) 0.6 Lymph # (Auto) 3.3 [place] # (Auto) 1.1 Eos # (Auto) 0.2 Baso # (Auto) 0.1 Abs Immat Gran (auto) 0.15 H Absolute Neuts (auto) 7.5 Absolute Nucleated RBC 0.000 Nucleated RBC % (auto) 0.0 Total Bilirubin 0.3 Direct Bilirubin 0.2 AST 11 ALT 13 Alkaline Phosphatase 79 Total Protein 6.9 Albumin 3.9 Medications Medications Current Medications Acetaminophen (Acetaminophen 325 Mg Tablet) 650 mg PO Q6H PRN PRN Reason: Headache/Pain Mild Scale (1-3) Last Admin: 06/08/24 23:03 Dose: 650 mg Al Hydroxide/Mg Hydroxide (Magnesium Hydrox/Alum Hydrox 30 Ml Oral.Susp) 30 ml PO Q6H PRN PRN Reason: Heartburn/Nausea Apixaban (Apixaban 5 Mg Tablet) 5 mg PO BID INOCENCIO Last Admin: 06/08/24 23:02 Dose: 5 mg Atenolol (Atenolol 50 Mg Tablet) 50 mg PO DAILY INOCENCIO; Protocol Last Admin: 06/08/24 09:54 Dose: 50 mg Atorvastatin Calcium (Atorvastatin Calcium 20 Mg Tablet) 20 mg PO BEDTIME INOCENCIO Last Admin: 06/08/24 23:02 Dose: 20 mg Clozapine (Clozapine 25 Mg Tablet) 25 mg PO DAILY INOCENCIO Last Admin: 06/08/24 09:54 Dose: 25 mg Clozapine (Clozapine 100 Mg Tablet) 100 mg PO BEDTIME INOCENCIO Last Admin: 06/08/24 23:03 Dose: 100 mg Clozapine (Clozapine 25 Mg Tablet) 25 mg PO BEDTIME INOCENCIO Last Admin: 06/08/24 23:03 Dose: 25 mg Divalproex Sodium (Divalproex Sodium Er 500 Mg Tab.Er.24h) 1,500 mg PO BEDTIME INOCENCIO Last Admin: 06/08/24 23:03 Dose: 1,500 mg Furosemide (Furosemide 40 Mg Tablet) 40 mg PO DAILY INOCENCIO; Protocol Last Admin: 06/08/24 09:53 Dose: 40 mg Haloperidol (Haloperidol 5 Mg Tablet) 5 mg PO TID PRN PRN Reason: Psychosis Last Admin: 06/04/24 17:12 Dose: 5 mg Hydroxyzine HCl (Hydroxyzine Hcl 25 Mg Tablet) 25 mg PO Q6H PRN PRN Reason: Anxiety Last Admin: 06/05/24 16:43 Dose: 25 mg Lactic Acid (Ammonium Lactate 12 % Lotion 226 Gm Bottle) 1 appl TOPICAL BID PRN; Protocol PRN Reason: Dry Skin Last Admin: 06/05/24 22:16 Dose: 1 appl Lorazepam (Lorazepam 1 Mg Tablet) 1 mg PO BEDTIME INOCENCIO Last Admin: 06/08/24 23:02 Dose: 1 mg Magnesium Hydroxide (Milk Of Magnesia 30 Ml Oral.Susp) 30 ml PO DAILY PRN PRN Reason: Constipation Metformin HCl (Metformin Hcl 1,000 Mg Tablet) 1,000 mg PO BIDWM INOCENCIO Last Admin: 06/08/24 17:41 Dose: 1,000 mg Nystatin (Nystatin Cream 15 Gm Tube) 1 appl TOPICAL BID INOCENCIO; Protocol Last Admin: 06/08/24 23:02 Dose: 1 appl Trazodone HCl (Trazodone Hcl 50 Mg Tablet) 50 mg PO BEDTIME MRX1 PRN PRN Reason: Insomnia Last Admin: 06/08/24 23:02 Dose: 50 mg Allergies Allergies Allergy/AdvReac Type Severity Reaction Status Date / Time kiwi [KIWI] Allergy Mild HIVES Verified 05/29/24 14:16 mold [MOLD EXTRACTS*] Allergy Mild HIVES Verified 05/29/24 14:16 Assessment & Plan Assessment & Plan (1) Bipolar disorder: Qualifiers: Active/Remission status: in full remission Most recent bipolar episode type: mixed Qualified Code(s): F31.78 - Bipolar disorder, in full remission, most recent episode mixed Status: Acute Code(s): F31.9 - Bipolar disorder, unspecified (2) Schizoaffective disorder, bipolar type: Status: Acute Code(s): F25.0 - Schizoaffective disorder, bipolar type Plan 33 yo female with schizoaffective disorder, bipolar type transferred from [facility] ED due to brendon and disorganization after calling 911. She has been decompensating in the last few days per report. Unclear precipitants. She has repeated prolonged hospitalizations. Hospital course: 06/04 patient remains manic, psychotic and hypersexual, disorganized. Patient agreed to restart Depakote 06/05 Patient remains manic, psychotic and sexually focused making constant sexual remarks to staff. Patient however willing to sign a CV and remain on the unit for treatment. Adherent with medications Collateral provided reports that possible 1 reason for decompensation was that the VNA was reduced to once a week wears formally once a day. They say around 9/24 things started to get off 06/06 Patient continues to be hypersexual making sexualized comments to staff. Patient continues to insist that she is , she knew the sonogram and that she needs a Pap smear, chronic delusional thoughts which do not respond to reality testing. Patient remains making bizarre nonsensical references and will laugh uncontrollably and inappropriately at times. Conversely, she was able to have a logical and educated discussion about her diabetes. Operating Cost Clerk explained that sugars were elevated which she understood and was able to discuss whether to increase metformin, which she is concerned will cause loose stool verses getting back on Trulicity which she said she was on in the past and helped her lose weight. Operating Cost Clerk agreed to consider options. 06/07 perhaps a little less manic though still disorganized; reviewed Depakote level which is subtherapeutic; discussed with patient who agrees to increase dose 06/08 continue tx plan, allo more time for current med regimen to work 06/09 little calmer but remains disorganized; continue tx plan Plan: cv Increased to Depakote ER 1500 mg q.h.s. (used to be on intermediate 500 mg b.i.d.) -labs ordered for Depakote level Continue Clozaril 25 mg daily Continue Clozaril 125 mg q.h.s. increase metformin to 1000mg bid - Collateral information from family and providers. - Milieu treatment and group therapy. - Medications: Restart OP medications. - Social work evaluation. - Disposition planning. Patient educated on: diagnosis and medication risk/benefits Informed Consent: understands Reason for continued inpatient stay Substantial Risk for: inability to function Time Spent With Patient Time: Total time managing care of this patient today ____ minutes.
[2024-06-09 09:33] VITALS: BP 142/88; PULSE 107; RESP 18; TEMP 36.4; O2SAT 99
[2024-06-09] MEDS: metFORMIN HCl 1,000 MG TABLET 1000 MG PO ×2 (09:34→17:52)
[2024-06-09] MEDS: atenoloL 50 MG TABLET PO (09:34)
[2024-06-09] MEDS: Furosemide 40 MG TABLET PO (09:34)
[2024-06-09] MEDS: cloZAPine 25 MG TABLET PO ×2 (09:35→20:50)
[2024-06-09] MEDS: Apixaban 5 MG TABLET PO ×2 (09:35→20:49)
[2024-06-09 12:34] LABS: Glucose, Whole Blood 132 mg/dL (60-115)
[2024-06-09] MEDS: Ammonium Lactate 12 % Lotion 226 GM BOTTLE 1 APPL TOPICAL (12:41)
[2024-06-09] MEDS: Nystatin Cream 15 GM TUBE 1 APPL TOPICAL (12:41)
[2024-06-09 20:00] VITALS: BP 135/67; PULSE 101; TEMP 36.4; O2SAT 94
[2024-06-09] MEDS: Atorvastatin Calcium 20 MG TABLET PO (20:49)
[2024-06-09] MEDS: Divalproex Sodium ER 500 MG TAB.ER.24H 1500 MG PO (20:49)
[2024-06-09] MEDS: LORazepam 1 MG TABLET PO (20:49)
[2024-06-09] MEDS: traZODone HCL 50 MG TABLET PO (20:49)
[2024-06-09] MEDS: cloZAPine 100 MG TABLET PO (20:50)
[2024-06-10 09:28] LABS: Glucose, Whole Blood 142 mg/dL (60-115)
[2024-06-10 09:45] VITALS: BP 142/88; PULSE 112; RESP 18; TEMP 36.1; O2SAT 98
[2024-06-10] MEDS: Furosemide 40 MG TABLET PO (09:50)
[2024-06-10] MEDS: metFORMIN HCl 1,000 MG TABLET 1000 MG PO ×2 (09:50→18:40)
[2024-06-10] MEDS: cloZAPine 25 MG TABLET PO ×2 (09:50→21:38)
[2024-06-10] MEDS: atenoloL 50 MG TABLET PO (09:51)
[2024-06-10] MEDS: Apixaban 5 MG TABLET PO ×2 (09:51→21:39)
--- NOTE | 2024-06-10 10:07 | HO.PSYCHPN ---
Subjective Subjective Date of Service: 06/10/24 Reason For Visit: Bipolar type 1 w/ psychotic features Interim History: Met with patient; discussed with team Little more calm and stays with relevant/appropriate conversation longer; still devolves into nonsensical Patient talked about rash under her breasts and was grateful to hear that wound nurse consult placed. Also discussed yeast infection and patient amenable to treatment Mental Status Exam Mental Status Exam Patient Appearance: Perspiring and Unkempt (but better) Patient Orientation: Person and Place Level of Consciousness: Awake and Alert Patient Behavior: Talkative, Hypersexual (But a little less), Distractible, Good Eye Contact and Impulsive Behavior Comments: Can intermittently get dysregulated and angry but it is short-lived and redirectable Mood Description: Euphoric, Cheerful, Labile, Sad, Nervous and Expansive Affect Description: Labile Ability to Follow Directions: Fair Speech Pattern: Clear, Excessive and Pressured (But a little less so) Hallucinations: None Delusions: Paranoid Ideation and Grandiose Thought Process: Racing, Illogical, Distracted and Goal Oriented Thought Content: positive for Goal Oriented (No SI/HI), positive for Loose Associations, positive for Tangential and positive for Disorganized Judgement: Poor Diagnostics Vital Signs (24Hr): Vital Signs - 24 hr 06/09/24 20:00 06/10/24 09:45 Temperature 97.6 F 97 F Pulse Rate 101 H 112 H Respiratory Rate 18 Blood Pressure 135/67 142/88 H Pulse Oximetry 94 98 Oxygen Delivery Method Room Air Room Air BMI result Body Mass Index 66.8 Labs 06/07/24 15:51 06/03/24 12:33 Labs: Laboratory Results - last 48 hr 06/09/24 06/10/24 09:22 09:23 POC Glucose 132 H 142 H Medications Medications Current Medications Acetaminophen (Acetaminophen 325 Mg Tablet) 650 mg PO Q6H PRN PRN Reason: Headache/Pain Mild Scale (1-3) Last Admin: 06/08/24 23:03 Dose: 650 mg Al Hydroxide/Mg Hydroxide (Magnesium Hydrox/Alum Hydrox 30 Ml Oral.Susp) 30 ml PO Q6H PRN PRN Reason: Heartburn/Nausea Apixaban (Apixaban 5 Mg Tablet) 5 mg PO BID INOCENCIO Last Admin: 06/10/24 09:51 Dose: 5 mg Atenolol (Atenolol 50 Mg Tablet) 50 mg PO DAILY INOCENCIO; Protocol Last Admin: 06/10/24 09:51 Dose: 50 mg Atorvastatin Calcium (Atorvastatin Calcium 20 Mg Tablet) 20 mg PO BEDTIME INOCENCIO Last Admin: 06/09/24 20:49 Dose: 20 mg Clozapine (Clozapine 25 Mg Tablet) 25 mg PO DAILY INOCENCIO Last Admin: 06/10/24 09:50 Dose: 25 mg Clozapine (Clozapine 100 Mg Tablet) 100 mg PO BEDTIME INOCENCIO Last Admin: 06/09/24 20:50 Dose: 100 mg Clozapine (Clozapine 25 Mg Tablet) 25 mg PO BEDTIME INOCENCIO Last Admin: 06/09/24 20:50 Dose: 25 mg Divalproex Sodium (Divalproex Sodium Er 500 Mg Tab.Er.24h) 1,500 mg PO BEDTIME INOCENCIO Last Admin: 06/09/24 20:49 Dose: 1,500 mg Furosemide (Furosemide 40 Mg Tablet) 40 mg PO DAILY INOCENCIO; Protocol Last Admin: 06/10/24 09:50 Dose: 40 mg Haloperidol (Haloperidol 5 Mg Tablet) 5 mg PO TID PRN PRN Reason: Psychosis Last Admin: 06/04/24 17:12 Dose: 5 mg Hydroxyzine HCl (Hydroxyzine Hcl 25 Mg Tablet) 25 mg PO Q6H PRN PRN Reason: Anxiety Last Admin: 06/05/24 16:43 Dose: 25 mg Lactic Acid (Ammonium Lactate 12 % Lotion 226 Gm Bottle) 1 appl TOPICAL BID PRN; Protocol PRN Reason: Dry Skin Last Admin: 06/09/24 12:41 Dose: 1 appl Lorazepam (Lorazepam 1 Mg Tablet) 1 mg PO BEDTIME INOCENCIO Last Admin: 06/09/24 20:49 Dose: 1 mg Magnesium Hydroxide (Milk Of Magnesia 30 Ml Oral.Susp) 30 ml PO DAILY PRN PRN Reason: Constipation Metformin HCl (Metformin Hcl 1,000 Mg Tablet) 1,000 mg PO BIDWM INOCENCIO Last Admin: 06/10/24 09:50 Dose: 1,000 mg Nystatin (Nystatin Cream 15 Gm Tube) 1 appl TOPICAL BID INOCENCIO; Protocol Last Admin: 06/10/24 09:51 Dose: Not Given Trazodone HCl (Trazodone Hcl 50 Mg Tablet) 50 mg PO BEDTIME MRX1 PRN PRN Reason: Insomnia Last Admin: 06/09/24 20:49 Dose: 50 mg Allergies Allergies Allergy/AdvReac Type Severity Reaction Status Date / Time kiwi [KIWI] Allergy Mild HIVES Verified 05/29/24 14:16 mold [MOLD EXTRACTS*] Allergy Mild HIVES Verified 05/29/24 14:16 Assessment & Plan Assessment & Plan (1) Bipolar disorder: Qualifiers: Active/Remission status: in full remission Most recent bipolar episode type: mixed Qualified Code(s): F31.78 - Bipolar disorder, in full remission, most recent episode mixed Status: Acute Code(s): F31.9 - Bipolar disorder, unspecified (2) Schizoaffective disorder, bipolar type: Status: Acute Code(s): F25.0 - Schizoaffective disorder, bipolar type Plan 33 yo female with schizoaffective disorder, bipolar type transferred from [facility] ED due to brendon and disorganization after calling 911. She has been decompensating in the last few days per report. Unclear precipitants. She has repeated prolonged hospitalizations. Hospital course: 06/04 patient remains manic, psychotic and hypersexual, disorganized. Patient agreed to restart Depakote 06/05 Patient remains manic, psychotic and sexually focused making constant sexual remarks to staff. Patient however willing to sign a CV and remain on the unit for treatment. Adherent with medications Collateral provided reports that possible 1 reason for decompensation was that the VNA was reduced to once a week wears formally once a day. They say around 05/29 things started to get off 06/06 Patient continues to be hypersexual making sexualized comments to staff. Patient continues to insist that she is , she knew the sonogram and that she needs a Pap smear, chronic delusional thoughts which do not respond to reality testing. Patient remains making bizarre nonsensical references and will laugh uncontrollably and inappropriately at times. Conversely, she was able to have a logical and educated discussion about her diabetes. Lumber Sales Supervisor explained that sugars were elevated which she understood and was able to discuss whether to increase metformin, which she is concerned will cause loose stool verses getting back on Trulicity which she said she was on in the past and helped her lose weight. Lumber Sales Supervisor agreed to consider options. 06/07 perhaps a little less manic though still disorganized; reviewed Depakote level which is subtherapeutic; discussed with patient who agrees to increase dose 06/08 continue tx plan, allo more time for current med regimen to work 06/09 little calmer but remains disorganized; continue tx plan 06/10 continue treatment plan; will get Depakote level tomorrow -ordered Diflucan for yeast infection; with repeat in 3 days -wound consult placed to assess hidradenitis suppurativa under bilateral left breast/bilateral thigh, to make sure not getting infected Plan: cv Increased to Depakote ER 1500 mg q.h.s. (used to be on intermediate 500 mg b.i.d.) -labs ordered for Depakote level Continue Clozaril 25 mg daily Continue Clozaril 125 mg q.h.s. increase metformin to 1000mg bid - Collateral information from family and providers. - Milieu treatment and group therapy. - Medications: Restart OP medications. - Social work evaluation. - Disposition planning. Patient educated on: diagnosis, medication risk/benefits and medical condition Informed Consent: understands, does not understand and further education needed Reason for continued inpatient stay Substantial Risk for: inability to function and rapid decompensation Time Spent With Patient Time: Total time managing care of this patient today ____ minutes.
[2024-06-10] MEDS: Fluconazole 150 MG TABLET PO (12:34)
[2024-06-10 20:00] VITALS: BP 117/57; PULSE 95; TEMP 36.9; O2SAT 95
[2024-06-10] MEDS: Atorvastatin Calcium 20 MG TABLET PO (21:37)
[2024-06-10] MEDS: Divalproex Sodium ER 500 MG TAB.ER.24H 1500 MG PO (21:37)
[2024-06-10] MEDS: cloZAPine 100 MG TABLET PO (21:40)
[2024-06-10] MEDS: LORazepam 1 MG TABLET PO (21:40)
[2024-06-10] MEDS: Nystatin Cream 15 GM TUBE 1 APPL TOPICAL (22:56)
[2024-06-10] MEDS: Ammonium Lactate 12 % Lotion 226 GM BOTTLE 1 APPL TOPICAL (22:57)
[2024-06-11 09:29] LABS: Glucose, Whole Blood 154 mg/dL (60-115)
[2024-06-11 09:33] VITALS: BP 140/89; PULSE 95; RESP 18; TEMP 36.6; O2SAT 97
[2024-06-11] MEDS: atenoloL 50 MG TABLET PO (09:35)
[2024-06-11] MEDS: Apixaban 5 MG TABLET PO ×2 (09:35→22:07)
[2024-06-11] MEDS: Furosemide 40 MG TABLET PO (09:35)
[2024-06-11] MEDS: metFORMIN HCl 1,000 MG TABLET 1000 MG PO ×2 (09:35→17:49)
[2024-06-11] MEDS: cloZAPine 25 MG TABLET PO ×2 (09:35→22:06)
--- NOTE | 2024-06-11 09:43 | P.PNPSI_ITS ---
Subjective Subjective Date of Service: 06/11/24 Reason For Visit: Bipolar type 1 w/ psychotic features Interim History: met with patient; discussed with team pt doing much better and able to hold a linear, logical and mostly appropriate conversation for the first time this admission. Pt says she's feeling better and looking forward to discharge, looking forward to watching her favorite TV show. Pt says she will continue taking medications; says did not mean to stop last time, but that they changed a medication on me... Mental Status Exam Mental Status Exam Narrative: Pt is alert and oriented; behavior is cooperative, friendly and calm and in much improved behavioral control; patient is not in distress; dressed in casual attire with unkempt hair but improved hygiene; mood is described as good and affect congruent; eye contact appropriate; Speech is normal rate, volume and prosody and not pressured; no psychomotor agitation/retardation present; thought process is much more organized and goal directed; Thought content is on tx, discharge; otherwise mostly pertinent to relevant topics; no delusional thoughts expressed so far; denies any SI/HI. There is no evidence of perceptual disturbance. Patients insight and judgment impaired but much improved and close to baseline Diagnostics Vital Signs (24Hr): Vital Signs - 24 hr 06/10/24 09:45 06/10/24 20:00 06/11/24 09:33 Temperature 97 F 98.4 F 97.9 F Pulse Rate 112 H 95 95 Respiratory Rate 18 18 Blood Pressure 142/88 H 117/57 L 140/89 H Pulse Oximetry 98 95 97 Oxygen Delivery Method Room Air Room Air Room Air BMI result Body Mass Index 66.8 Labs 06/07/24 15:51 06/03/24 12:33 Labs: Laboratory Results - last 48 hr 06/09/24 06/10/24 06/11/24 09:22 09:23 09:25 POC Glucose 132 H 142 H 154 H Medications Medications Current Medications Acetaminophen (Acetaminophen 325 Mg Tablet) 650 mg PO Q6H PRN PRN Reason: Headache/Pain Mild Scale (1-3) Last Admin: 06/08/24 23:03 Dose: 650 mg Al Hydroxide/Mg Hydroxide (Magnesium Hydrox/Alum Hydrox 30 Ml Oral.Susp) 30 ml PO Q6H PRN PRN Reason: Heartburn/Nausea Apixaban (Apixaban 5 Mg Tablet) 5 mg PO BID [facility] Last Admin: 06/11/24 09:35 Dose: 5 mg Atenolol (Atenolol 50 Mg Tablet) 50 mg PO DAILY INOCENCIO; Protocol Last Admin: 06/11/24 09:35 Dose: 50 mg Atorvastatin Calcium (Atorvastatin Calcium 20 Mg Tablet) 20 mg PO BEDTIME INOCENCIO Last Admin: 06/10/24 21:37 Dose: 20 mg Clozapine (Clozapine 25 Mg Tablet) 25 mg PO DAILY INOCENCIO Last Admin: 06/11/24 09:35 Dose: 25 mg Clozapine (Clozapine 100 Mg Tablet) 100 mg PO BEDTIME INOCENCIO Last Admin: 06/10/24 21:40 Dose: 100 mg Clozapine (Clozapine 25 Mg Tablet) 25 mg PO BEDTIME INOCENCIO Last Admin: 06/10/24 21:38 Dose: 25 mg Divalproex Sodium (Divalproex Sodium Er 500 Mg Tab.Er.24h) 1,500 mg PO BEDTIME INOCENCIO Last Admin: 06/10/24 21:37 Dose: 1,500 mg Fluconazole (Fluconazole 100 Mg Tablet) 100 mg PO ONCE ONE Stop: 06/13/24 09:01 Furosemide (Furosemide 40 Mg Tablet) 40 mg PO DAILY INOCENCIO; Protocol Last Admin: 06/11/24 09:35 Dose: 40 mg Haloperidol (Haloperidol 5 Mg Tablet) 5 mg PO TID PRN PRN Reason: Psychosis Last Admin: 06/04/24 17:12 Dose: 5 mg Hydroxyzine HCl (Hydroxyzine Hcl 25 Mg Tablet) 25 mg PO Q6H PRN PRN Reason: Anxiety Last Admin: 06/05/24 16:43 Dose: 25 mg Lactic Acid (Ammonium Lactate 12 % Lotion 226 Gm Bottle) 1 appl TOPICAL BID PRN; Protocol PRN Reason: Dry Skin Last Admin: 06/10/24 22:57 Dose: 1 appl Lorazepam (Lorazepam 1 Mg Tablet) 1 mg PO BEDTIME INOCENCIO Last Admin: 06/10/24 21:40 Dose: 1 mg Magnesium Hydroxide (Milk Of Magnesia 30 Ml Oral.Susp) 30 ml PO DAILY PRN PRN Reason: Constipation Metformin HCl (Metformin Hcl 1,000 Mg Tablet) 1,000 mg PO BIDWM INOCENCIO Last Admin: 06/11/24 09:35 Dose: 1,000 mg Nystatin (Nystatin Cream 15 Gm Tube) 1 appl TOPICAL BID INOCENCIO; Protocol Last Admin: 06/11/24 09:35 Dose: Not Given Trazodone HCl (Trazodone Hcl 50 Mg Tablet) 50 mg PO BEDTIME MRX1 PRN PRN Reason: Insomnia Last Admin: 06/09/24 20:49 Dose: 50 mg Allergies Allergies Allergy/AdvReac Type Severity Reaction Status Date / Time kiwi [KIWI] Allergy Mild HIVES Verified 05/29/24 14:16 mold [MOLD EXTRACTS*] Allergy Mild HIVES Verified 05/29/24 14:16 Assessment & Plan Assessment & Plan (1) Bipolar disorder: Qualifiers: Active/Remission status: in full remission Most recent bipolar episode type: mixed Qualified Code(s): F31.78 - Bipolar disorder, in full remission, most recent episode mixed Status: Acute Code(s): F31.9 - Bipolar disorder, unspecified (2) Schizoaffective disorder, bipolar type: Status: Acute Code(s): F25.0 - Schizoaffective disorder, bipolar type Plan 33 yo female with schizoaffective disorder, bipolar type transferred from [facility] ED due to brendon and disorganization after calling 911. She has been decompensating in the last few days per report. Unclear precipitants. She has repeated prolonged hospitalizations. Hospital course: 06/04 patient remains manic, psychotic and hypersexual, disorganized. Patient agreed to restart Depakote 06/05 Patient remains manic, psychotic and sexually focused making constant sexual remarks to staff. Patient however willing to sign a CV and remain on the unit for treatment. Adherent with medications Collateral provided reports that possible 1 reason for decompensation was that the VNA was reduced to once a week wears formally once a day. They say around 05/29 things started to get off 06/06 Patient continues to be hypersexual making sexualized comments to staff. Patient continues to insist that she is , she knew the sonogram and that she needs a Pap smear, chronic delusional thoughts which do not respond to reality testing. Patient remains making bizarre nonsensical references and will laugh uncontrollably and inappropriately at times. Conversely, she was able to have a logical and educated discussion about her diabetes. Weight Training Instructor explained that sugars were elevated which she understood and was able to discuss whether to increase metformin, which she is concerned will cause loose stool verses getting back on Trulicity which she said she was on in the past and helped her lose weight. Weight Training Instructor agreed to consider options. 06/07 perhaps a little less manic though still disorganized; reviewed Depakote level which is subtherapeutic; discussed with patient who agrees to increase dose 06/08 continue tx plan, allo more time for current med regimen to work 06/09 little calmer but remains disorganized; continue tx plan 06/10 continue treatment plan; will get Depakote level tomorrow -ordered Diflucan for yeast infection; with repeat in 3 days -wound consult placed to assess hidradenitis suppurativa under bilateral left breast/bilateral thigh, to make sure not getting infected 06/11 pt doing much better and able to hold a linear, logical and mostly appropriate conversation for the first time this admission. Pt says she's feeling better and looking forward to discharge, looking forward to watching her favorite TV show. Pt says she will continue taking medications; says did not mean to stop last time, but that they changed a medication on me... Plan: cv continue Depakote ER 1500 mg q.h.s. (used to be on intermediate 500 mg b.i.d.) -labs ordered for Depakote level Continue Clozaril 25 mg daily Continue Clozaril 125 mg q.h.s. increase metformin to 1000mg bid - Collateral information from family and providers. - Milieu treatment and group therapy. - Medications: Restart OP medications. - Social work evaluation. - Disposition planning. Patient educated on: diagnosis, medication risk/benefits and therapeutic strategies Informed Consent: understands Reason for continued inpatient stay Substantial Risk for: rapid decompensation and med/psych decompensation Time Spent With Patient Time: Total time managing care of this patient today ____ minutes.
--- NOTE | 2024-06-11 16:10 | HO.WOUND ---
Wound Consult: Initial 33yr old?Female admitted to [facility] on 06/02/24 to the Behavioral Health Unit - See progress notes and H&P for detailed history.? Wound consult placed for skin folds to breast and thighs.? Patient agreeable to assessment. Bilateral breast skin folds assessed the tissue appears clean without significant evidence of Fungal dermatitis there is evidence of MASD noted with mirrored hyperpigmentation noted. Mild yeast odor noted. Of importance the patient has been using topical antifungals and this is likely impacting the appearance of fungal dermatitis as the topical treatment is working. The abdominal skin fold and perineal areas is noted for significant odor including yeast but no overt s/s of active fungal invasion. Patient educated on the things she can do to aid in resolving fungal rash and MASD. Shower Daily - keep skin dry and clean. Apply topical treatments twice daily or as ordered continue for 10-14 days past rash clearing. Interdry use. Interdry brought to unit and pt and nurse instructed on use. Patient recalls using this product during past admission and reports she likes it and feels it really helps. Intergluteal area assessed no MASD or Fungal dermaitits noted. When assessing the patients skin she is noted to have several areas of old injury resemblance of Hidradenitis Suppurative. The patient does not recall having that diagnosis previously. The observed bilateral inner thighs and breast and axilla are noted for scarring and tract like old injury consistent with Hidradenitis Suppurative. Under the right breast there was an area of mild erythema, slight induration and hyperpigmentation noted consistent with Hidradenitis Suppurative - when palpated drainage was expressed - she reported she has had this in the past. No concern for abscess or infection suspect patient is experiencing a flare of Hidradenitis Suppurative. Topical recommendations made below and to direct nurse and pt. Topical Wound Care Recommendations 1. Bilateral Breast, ABD skin fold and Groin - Encourage patient to shower daily. Gently cleanse with Ph balanced soap and water, allow to dry - keep skin fold open to air to allow for tissue to completely dry. Then apply Antifungal powder twice daily. ?Apply for 10-14 days past point of clinical clearing. Apply Interdry Sheets to aid in translocating moisture. Tuck Interdry AG Sheet into skin fold to wick and translocate moisture away from skin fold.? Be sure to leave at least 2 inch of fabric exposed outside of skin fold.? May use for up to 5 days. Change when soiled. May apply barrier cream to open areas at bases abdominal skin fold. 2. Bilateral Lower Legs - Apply lotion daily to keep skin supple. Elevate lower legs and apply compression stockings ([place]). May remove at night if patient is in bed for the evening. Apply first thing in the morning and elevate lower legs throughout the day. Edema Wear compression garments should be applied first thing in the morning and may be removed at night when legs are elevated in bed.? Hand wash and hang dry.? Stockings should be worn from the base of the toes to just below the knee.? Fold over at end to prevent rolling.? They are disposable after about 2 weeks or regular use. Re-consult wound care Nurse for wound deterioration or wound changes.
[2024-06-11 21:00] VITALS: BP 127/60; PULSE 91; RESP 20; TEMP 36.3; O2SAT 99
[2024-06-11] MEDS: LORazepam 1 MG TABLET PO (22:06)
[2024-06-11] MEDS: Divalproex Sodium ER 500 MG TAB.ER.24H 1500 MG PO (22:07)
[2024-06-11] MEDS: Atorvastatin Calcium 20 MG TABLET PO (22:07)
[2024-06-11] MEDS: cloZAPine 100 MG TABLET PO (22:07)
[2024-06-12 08:40] VITALS: BP 163/95; PULSE 104; TEMP 36.4; O2SAT 97
[2024-06-12] MEDS: Apixaban 5 MG TABLET PO ×2 (08:41→21:29)
[2024-06-12] MEDS: Furosemide 40 MG TABLET PO (08:41)
[2024-06-12] MEDS: metFORMIN HCl 1,000 MG TABLET 1000 MG PO ×2 (08:41→18:35)
[2024-06-12 08:42] LABS: Glucose, Whole Blood 147 mg/dL (60-115)
[2024-06-12] MEDS: cloZAPine 25 MG TABLET PO ×2 (08:42→21:29)
[2024-06-12] MEDS: atenoloL 50 MG TABLET PO (08:42)
[2024-06-12] MEDS: Nystatin Cream 15 GM TUBE 1 APPL TOPICAL ×2 (08:45→21:30)
[2024-06-12] MEDS: Ammonium Lactate 12 % Lotion 226 GM BOTTLE 1 APPL TOPICAL (08:45)
--- NOTE | 2024-06-12 09:30 | HO.PSYCHPN ---
Subjective Subjective Date of Service: 06/12/24 Reason For Visit: Bipolar type 1 w/ psychotic features Interim History: Met with patient; discussed with team Patient said she is not feeling good because she is having her.. She said she has not had 1 in a long time it is making her very uncomfortable. She remains improved and much more able to have a normal conversation; she does continue to get inappropriate off topic on some irrelevant or nonsensical topic however she is redirectable Mental Status Exam Mental Status Exam Narrative: Pt is alert and oriented; behavior is cooperative, friendly and calm and in much improved behavioral control, though still intermittently can get agitated; patient is not in distress; dressed in casual attire with unkempt hair but improved hygiene; mood is described as not good and affect congruent; eye contact appropriate; Speech is normal rate, volume and prosody and not pressured; no psychomotor agitation/retardation present; thought process is much more organized and goal directed; Thought content is on tx, discharge; otherwise mostly pertinent to relevant topics; no delusional thoughts expressed so far; denies any SI/HI. There is no evidence of perceptual disturbance. Patients insight and judgment impaired but much improved and close to baseline Diagnostics Vital Signs (24Hr): Vital Signs - 24 hr 06/11/24 09:33 06/11/24 21:00 06/12/24 08:40 Temperature 97.9 F 97.3 F 97.6 F Pulse Rate 95 91 104 H Respiratory Rate 18 20 Blood Pressure 140/89 H 127/60 163/95 H Pulse Oximetry 97 99 97 Oxygen Delivery Method Room Air Room Air Room Air BMI result Body Mass Index 66.8 Labs 06/07/24 15:51 06/13/24 08:35 Labs: Laboratory Results - last 48 hr 06/11/24 06/12/24 09:25 08:39 POC Glucose 154 H 147 H Medications Medications Current Medications Acetaminophen (Acetaminophen 325 Mg Tablet) 650 mg PO Q6H PRN PRN Reason: Headache/Pain Mild Scale (1-3) Last Admin: 06/08/24 23:03 Dose: 650 mg Al Hydroxide/Mg Hydroxide (Magnesium Hydrox/Alum Hydrox 30 Ml Oral.Susp) 30 ml PO Q6H PRN PRN Reason: Heartburn/Nausea Apixaban (Apixaban 5 Mg Tablet) 5 mg PO BID [facility] Last Admin: 06/12/24 08:41 Dose: 5 mg Atenolol (Atenolol 50 Mg Tablet) 50 mg PO DAILY INOCENCIO; Protocol Last Admin: 06/12/24 08:42 Dose: 50 mg Atorvastatin Calcium (Atorvastatin Calcium 20 Mg Tablet) 20 mg PO BEDTIME INOCENCIO Last Admin: 06/11/24 22:07 Dose: 20 mg Clozapine (Clozapine 25 Mg Tablet) 25 mg PO DAILY INOCENCIO Last Admin: 06/12/24 08:42 Dose: 25 mg Clozapine (Clozapine 100 Mg Tablet) 100 mg PO BEDTIME INOCENCIO Last Admin: 06/11/24 22:07 Dose: 100 mg Clozapine (Clozapine 25 Mg Tablet) 25 mg PO BEDTIME INOCENCIO Last Admin: 06/11/24 22:06 Dose: 25 mg Divalproex Sodium (Divalproex Sodium Er 500 Mg Tab.Er.24h) 1,500 mg PO BEDTIME INOCENCIO Last Admin: 06/11/24 22:07 Dose: 1,500 mg Fluconazole (Fluconazole 100 Mg Tablet) 100 mg PO ONCE ONE Stop: 06/13/24 09:01 Furosemide (Furosemide 40 Mg Tablet) 40 mg PO DAILY INOCENCIO; Protocol Last Admin: 06/12/24 08:41 Dose: 40 mg Haloperidol (Haloperidol 5 Mg Tablet) 5 mg PO TID PRN PRN Reason: Psychosis Last Admin: 06/04/24 17:12 Dose: 5 mg Hydroxyzine HCl (Hydroxyzine Hcl 25 Mg Tablet) 25 mg PO Q6H PRN PRN Reason: Anxiety Last Admin: 06/05/24 16:43 Dose: 25 mg Lactic Acid (Ammonium Lactate 12 % Lotion 226 Gm Bottle) 1 appl TOPICAL BID PRN; Protocol PRN Reason: Dry Skin Last Admin: 06/12/24 08:45 Dose: 1 appl Lorazepam (Lorazepam 1 Mg Tablet) 1 mg PO BEDTIME INOCENCIO Last Admin: 06/11/24 22:06 Dose: 1 mg Magnesium Hydroxide (Milk Of Magnesia 30 Ml Oral.Susp) 30 ml PO DAILY PRN PRN Reason: Constipation Metformin HCl (Metformin Hcl 1,000 Mg Tablet) 1,000 mg PO BIDWM INOCENCIO Last Admin: 06/12/24 08:41 Dose: 1,000 mg Nystatin (Nystatin Cream 15 Gm Tube) 1 appl TOPICAL BID INOCENCIO; Protocol Last Admin: 06/12/24 08:45 Dose: 1 appl Trazodone HCl (Trazodone Hcl 50 Mg Tablet) 50 mg PO BEDTIME MRX1 PRN PRN Reason: Insomnia Last Admin: 06/09/24 20:49 Dose: 50 mg Allergies Allergies Allergy/AdvReac Type Severity Reaction Status Date / Time kiwi [KIWI] Allergy Mild HIVES Verified 05/29/24 14:16 mold [MOLD EXTRACTS*] Allergy Mild HIVES Verified 05/29/24 14:16 Assessment & Plan Assessment & Plan (1) Bipolar disorder: Qualifiers: Active/Remission status: in full remission Most recent bipolar episode type: mixed Qualified Code(s): F31.78 - Bipolar disorder, in full remission, most recent episode mixed Status: Acute Code(s): F31.9 - Bipolar disorder, unspecified (2) Schizoaffective disorder, bipolar type: Status: Acute Code(s): F25.0 - Schizoaffective disorder, bipolar type Plan 33 yo female with schizoaffective disorder, bipolar type transferred from [facility] ED due to brendon and disorganization after calling 911. She has been decompensating in the last few days per report. Unclear precipitants. She has repeated prolonged hospitalizations. Hospital course: 06/04 patient remains manic, psychotic and hypersexual, disorganized. Patient agreed to restart Depakote 06/05 Patient remains manic, psychotic and sexually focused making constant sexual remarks to staff. Patient however willing to sign a CV and remain on the unit for treatment. Adherent with medications Collateral provided reports that possible 1 reason for decompensation was that the VNA was reduced to once a week wears formally once a day. They say around 05/29 things started to get off 06/06 Patient continues to be hypersexual making sexualized comments to staff. Patient continues to insist that she is , she knew the sonogram and that she needs a Pap smear, chronic delusional thoughts which do not respond to reality testing. Patient remains making bizarre nonsensical references and will laugh uncontrollably and inappropriately at times. Conversely, she was able to have a logical and educated discussion about her diabetes. Sales And Operations Trainee explained that sugars were elevated which she understood and was able to discuss whether to increase metformin, which she is concerned will cause loose stool verses getting back on Trulicity which she said she was on in the past and helped her lose weight. Sales And Operations Trainee agreed to consider options. 06/07 perhaps a little less manic though still disorganized; reviewed Depakote level which is subtherapeutic; discussed with patient who agrees to increase dose 06/08 continue tx plan, allo more time for current med regimen to work 06/09 little calmer but remains disorganized; continue tx plan 06/10 continue treatment plan; will get Depakote level tomorrow -ordered Diflucan for yeast infection; with repeat in 3 days -wound consult placed to assess hidradenitis suppurativa under bilateral left breast/bilateral thigh, to make sure not getting infected 06/11 pt doing much better and able to hold a linear, logical and mostly appropriate conversation for the first time this admission. Pt says she's feeling better and looking forward to discharge, looking forward to watching her favorite TV show. Pt says she will continue taking medications; says did not mean to stop last time, but that they changed a medication on me... 06/12 patient has improved and more organized; still not at baseline but progressing Wound consult ordered to assess left breast hidradenitis suppurativa Plan: cv continue Depakote ER 1500 mg q.h.s. (used to be on intermediate 500 mg b.i.d.) -labs ordered for Depakote level Continue Clozaril 25 mg daily Continue Clozaril 125 mg q.h.s. increase metformin to 1000mg bid - Collateral information from family and providers. - Milieu treatment and group therapy. - Medications: Restart OP medications. - Social work evaluation. - Disposition planning. Patient educated on: diagnosis, medication risk/benefits and medical condition Informed Consent: understands, does not understand and further education needed Reason for continued inpatient stay Substantial Risk for: rapid decompensation Time Spent With Patient Time: Total time managing care of this patient today ____ minutes.
[2024-06-12] MEDS: Acetaminophen 325 MG TABLET 650 MG PO (13:52)
[2024-06-12 20:00] VITALS: BP 137/69; PULSE 88; TEMP 36.9; O2SAT 94
[2024-06-12] MEDS: LORazepam 1 MG TABLET PO (21:28)
[2024-06-12] MEDS: Atorvastatin Calcium 20 MG TABLET PO (21:29)
[2024-06-12] MEDS: cloZAPine 100 MG TABLET PO (21:30)
[2024-06-12] MEDS: Divalproex Sodium ER 500 MG TAB.ER.24H 1500 MG PO (21:30)
[2024-06-13 08:00] VITALS: BP 148/80; PULSE 66; TEMP 36.4; O2SAT 97
[2024-06-13 08:49] LABS: Glucose, Whole Blood 113 mg/dL (60-115)
[2024-06-13 08:53] VITALS: BP 148/80; PULSE 89
[2024-06-13] MEDS: metFORMIN HCl 1,000 MG TABLET 1000 MG PO ×2 (08:53→17:35)
[2024-06-13] MEDS: Apixaban 5 MG TABLET PO ×2 (08:53→21:08)
[2024-06-13] MEDS: atenoloL 50 MG TABLET PO (08:53)
[2024-06-13 08:54] VITALS: BP 148/80
[2024-06-13] MEDS: Furosemide 40 MG TABLET PO (08:54)
[2024-06-13] MEDS: cloZAPine 25 MG TABLET PO (08:54)
[2024-06-13 09:07] LABS: Creatinine Clr Calc Pharmacy 258.9; Estimated Glomerular Filt Rate > 60
[2024-06-13] MEDS: Fluconazole 100 MG TABLET PO (13:38)
--- NOTE | 2024-06-13 15:04 | HO.WOUND ---
Addendum entered by Cris Carballo RN 06/14/24 10:13: 06/14/24 Wound Consult Follow Up See Dr. Gates Provider note - oral antibiotic ordered for left inferior breast site. 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 As follows: Oral antibiotics per provider as needed, Antiseptic wash to affected areas, warm compresses to affected areas, short term oral steroids, and if needed - interlesional steroid injection, I&D and deroofing as needed. Given patients mild flare with one active lesion noted to the left inferior breast fold topical recommendations are as follows: Continue to use interdry to translocate moisture and reduce friction, wash daily with Hibiclens wash, dry well, Apply warm compresses 2-3 times daily while lesion appears active. At this time given the flare appears to involve only one lesion and discomfort is minimal it is not likely patient needs oral steroids but provider can determine if needed. Patient will benefit from outpatient Dermatology follow up at time of d/c. Original Note: Wound Consult: Follow up 33yr old?Female admitted to [facility] [place] on 06/02/24 to the Behavioral Health Unit - See progress notes and H&P for detailed history.? Wound consult follow up at staff request for left nipple abscess concerns.? Patient agreeable to assessment. Bilateral breast folds assessed - appears improved since last assessment no significant odor noted. Direct nurse from yesterday reports concern to left nipple area see photo below. She reports purulent drainage. Today site is scabbed and mildly fluctuant - see below - no concerns at this time for this site - it appears to be going through the phases of a HS flare. Below is left inferior breast - there is redness and mild fluctance and tenderness although this is likely a HS flare as well provider asked to assess given patient history of sepsis. Discussed concerns with Dr. Mistry and discussed over the phone with Dr. Gates to rule out infective abscess site. There is no open wound at this time and no topical interventions needed at this time. Inpatient wound care nurse will continue to follow pt for continued site assessment. No new topical recommendation needed at this time. Topical Wound Care Recommendations 1. Bilateral Breast, ABD skin fold and Groin - Encourage patient to shower daily. Gently cleanse with Ph balanced soap and water, allow to dry - keep skin fold open to air to allow for tissue to completely dry. Then apply Antifungal powder twice daily. ?Apply for 10-14 days past point of clinical clearing. Apply Interdry Sheets to aid in translocating moisture. Tuck Interdry AG Sheet into skin fold to wick and translocate moisture away from skin fold.? Be sure to leave at least 2 inch of fabric exposed outside of skin fold.? May use for up to 5 days. Change when soiled. May apply barrier cream to open areas at bases abdominal skin fold. 2. Bilateral Lower Legs - Apply lotion daily to keep skin supple. Elevate lower legs and apply compression stockings ([place]). May remove at night if patient is in bed for the evening. Apply first thing in the morning and elevate lower legs throughout the day. Edema Wear compression garments should be applied first thing in the morning and may be removed at night when legs are elevated in bed.? Hand wash and hang dry.? Stockings should be worn from the base of the toes to just below the knee.? Fold over at end to prevent rolling.? They are disposable after about 2 weeks or regular use. Re-consult wound care Nurse for wound deterioration or wound changes.
--- NOTE | 2024-06-13 16:08 | PM.EVENT ---
Event Note Date of Service: 06/13/24 Event Note: some erythema and tenderness around left lateral breast, unclear if true celulitis, but given high risk due to history will empirically treat with doxy 5-7 days for now Time Spent With Patient Time: Total time managing care of this patient today ____ minutes.
--- NOTE | 2024-06-13 17:13 | P.PNPSI_ITS ---
Subjective Subjective Date of Service: 06/13/24 Reason For Visit: Bipolar type 1 w/ psychotic features Interim History: Met with patient; discussed with team No change in presentation. Patient still bothered by having her menses. Still makes silly nonsensical comments during conversation but again is overall redirectable. Discussed findings with wound nurse who has some minor concerns for possible burgeoning cellulitis on left breast. Hospital consult ordered Mental Status Exam Mental Status Exam Narrative: Pt is alert and oriented; behavior is cooperative, friendly and calm and in much improved behavioral control, though still intermittently can get agitated; patient is not in distress; dressed in casual attire with unkempt hair but improved hygiene; mood is described as not good and affect congruent; eye contact appropriate; Speech is normal rate, volume and prosody and not pressured; no psychomotor agitation/retardation present; thought process is much more organized and goal directed; Thought content is on tx, discharge; otherwise mostly pertinent to relevant topics; no delusional thoughts expressed so far; denies any SI/HI. There is no evidence of perceptual disturbance. Patients insight and judgment impaired but much improved and close to baseline Diagnostics Vital Signs (24Hr): Vital Signs - 24 hr 06/12/24 20:00 06/13/24 08:00 06/13/24 08:53 Temperature 98.4 F 97.6 F Pulse Rate 88 66 89 Blood Pressure 137/69 148/80 H 148/80 H Pulse Oximetry 94 97 Oxygen Delivery Method Room Air Room Air 06/13/24 08:54 Temperature Pulse Rate Blood Pressure 148/80 H Pulse Oximetry Oxygen Delivery Method BMI result Body Mass Index 66.8 Labs 06/07/24 15:51 06/13/24 08:35 Labs: Laboratory Results - last 48 hr 06/12/24 06/13/24 06/13/24 08:39 08:35 08:39 Creatinine 0.60 Estim Creat Clear Calc 258.9 Estimated GFR > 60 POC Glucose 147 H 113 Medications Medications Current Medications Acetaminophen (Acetaminophen 325 Mg Tablet) 650 mg PO Q6H PRN PRN Reason: Headache/Pain Mild Scale (1-3) Last Admin: 06/12/24 13:52 Dose: 650 mg Al Hydroxide/Mg Hydroxide (Magnesium Hydrox/Alum Hydrox 30 Ml Oral.Susp) 30 ml PO Q6H PRN PRN Reason: Heartburn/Nausea Apixaban (Apixaban 5 Mg Tablet) 5 mg PO BID INOCENCIO Last Admin: 06/13/24 08:53 Dose: 5 mg Atenolol (Atenolol 50 Mg Tablet) 50 mg PO DAILY INOCENCIO; Protocol Last Admin: 06/13/24 08:53 Dose: 50 mg Atorvastatin Calcium (Atorvastatin Calcium 20 Mg Tablet) 20 mg PO BEDTIME INOCENCIO Last Admin: 06/12/24 21:29 Dose: 20 mg Clozapine (Clozapine 100 Mg Tablet) 100 mg PO BEDTIME INOCENCIO Last Admin: 06/12/24 21:30 Dose: 100 mg Clozapine (Clozapine 25 Mg Tablet) 50 mg PO BEDTIME INOCENCIO Divalproex Sodium (Divalproex Sodium Er 500 Mg Tab.Er.24h) 1,500 mg PO BEDTIME INOCENCIO Last Admin: 06/12/24 21:30 Dose: 1,500 mg Doxycycline Monohydrate (Doxycycline Monohydrate 100 Mg Capsule) 100 mg PO Q12H INOCENCIO Furosemide (Furosemide 40 Mg Tablet) 40 mg PO DAILY INOCENCIO; Protocol Last Admin: 06/13/24 08:54 Dose: 40 mg Haloperidol (Haloperidol 5 Mg Tablet) 5 mg PO TID PRN PRN Reason: Psychosis Last Admin: 06/04/24 17:12 Dose: 5 mg Hydroxyzine HCl (Hydroxyzine Hcl 25 Mg Tablet) 25 mg PO Q6H PRN PRN Reason: Anxiety Last Admin: 06/05/24 16:43 Dose: 25 mg Lactic Acid (Ammonium Lactate 12 % Lotion 226 Gm Bottle) 1 appl TOPICAL BID PRN; Protocol PRN Reason: Dry Skin Last Admin: 06/12/24 08:45 Dose: 1 appl Lorazepam (Lorazepam 1 Mg Tablet) 1 mg PO BEDTIME INOCENCIO Last Admin: 06/12/24 21:28 Dose: 1 mg Magnesium Hydroxide (Milk Of Magnesia 30 Ml Oral.Susp) 30 ml PO DAILY PRN PRN Reason: Constipation Metformin HCl (Metformin Hcl 1,000 Mg Tablet) 1,000 mg PO BIDWM INOCENCIO Last Admin: 06/13/24 08:53 Dose: 1,000 mg Nystatin (Nystatin Cream 15 Gm Tube) 1 appl TOPICAL BID INOCENCIO; Protocol Last Admin: 06/13/24 13:39 Dose: Not Given Trazodone HCl (Trazodone Hcl 50 Mg Tablet) 50 mg PO BEDTIME MRX1 PRN PRN Reason: Insomnia Last Admin: 06/09/24 20:49 Dose: 50 mg Allergies Allergies Allergy/AdvReac Type Severity Reaction Status Date / Time kiwi [KIWI] Allergy Mild HIVES Verified 05/29/24 14:16 mold [MOLD EXTRACTS*] Allergy Mild HIVES Verified 05/29/24 14:16 Assessment & Plan Assessment & Plan (1) Bipolar disorder: Qualifiers: Active/Remission status: in full remission Most recent bipolar episode type: mixed Qualified Code(s): F31.78 - Bipolar disorder, in full remission, most recent episode mixed Status: Acute Code(s): F31.9 - Bipolar disorder, unspecified (2) Schizoaffective disorder, bipolar type: Status: Acute Code(s): F25.0 - Schizoaffective disorder, bipolar type Plan 33 yo female with schizoaffective disorder, bipolar type transferred from [facility] ED due to brendon and disorganization after calling 911. She has been decompensating in the last few days per report. Unclear precipitants. She has repeated prolonged hospitalizations. Hospital course: 06/04 patient remains manic, psychotic and hypersexual, disorganized. Patient agreed to restart Depakote 06/05 Patient remains manic, psychotic and sexually focused making constant sexual remarks to staff. Patient however willing to sign a CV and remain on the unit for treatment. Adherent with medications Collateral provided reports that possible 1 reason for decompensation was that the VNA was reduced to once a week wears formally once a day. They say around 05/29 things started to get off 06/06 Patient continues to be hypersexual making sexualized comments to staff. Patient continues to insist that she is , she knew the sonogram and that she needs a Pap smear, chronic delusional thoughts which do not respond to reality testing. Patient remains making bizarre nonsensical references and will laugh uncontrollably and inappropriately at times. Conversely, she was able to have a logical and educated discussion about her diabetes. Water Plumber explained that sugars were elevated which she understood and was able to discuss whether to increase metformin, which she is concerned will cause loose stool verses getting back on Trulicity which she said she was on in the past and helped her lose weight. Water Plumber agreed to consider options. 06/07 perhaps a little less manic though still disorganized; reviewed Depakote level which is subtherapeutic; discussed with patient who agrees to increase dose 06/08 continue tx plan, allo more time for current med regimen to work 06/09 little calmer but remains disorganized; continue tx plan 06/10 continue treatment plan; will get Depakote level tomorrow -ordered Diflucan for yeast infection; with repeat in 3 days -wound consult placed to assess hidradenitis suppurativa under bilateral left breast/bilateral thigh, to make sure not getting infected 06/11 pt doing much better and able to hold a linear, logical and mostly appropriate conversation for the first time this admission. Pt says she's feeling better and looking forward to discharge, looking forward to watching her favorite TV show. Pt says she will continue taking medications; says did not mean to stop last time, but that they changed a medication on me... 06/12 patient has improved and more organized; still not at baseline but progressing Wound consult ordered to assess left breast hidradenitis suppurativa 06/13 No change in presentation. Patient still bothered by having her menses. Still makes silly nonsensical comments during conversation but again is overall redirectable. Discussed findings with wound nurse who has some minor concerns for possible burgeoning cellulitis on left breast. Hospital consult ordered Plan: cv continue Depakote ER 1500 mg q.h.s. (used to be on intermediate 500 mg b.i.d.) -labs ordered for Depakote level Continue Clozaril 25 mg daily Continue Clozaril 125 mg q.h.s. increase metformin to 1000mg bid - Collateral information from family and providers. - Milieu treatment and group therapy. - Medications: Restart OP medications. - Social work evaluation. - Disposition planning. Patient educated on: diagnosis, medication risk/benefits and medical condition Informed Consent: does not understand and further education needed Reason for continued inpatient stay Substantial Risk for: rapid decompensation Time Spent With Patient Time: Total time managing care of this patient today ____ minutes.
[2024-06-13] MEDS: Doxycycline Monohydrate 100 MG CAPSULE PO (17:35)
[2024-06-13] MEDS: LORazepam 1 MG TABLET PO (21:08)
[2024-06-13] MEDS: cloZAPine 100 MG TABLET PO (21:08)
[2024-06-13] MEDS: Divalproex Sodium ER 500 MG TAB.ER.24H 1500 MG PO (21:08)
[2024-06-13] MEDS: Atorvastatin Calcium 20 MG TABLET PO (21:08)
[2024-06-13] MEDS: cloZAPine 25 MG TABLET 50 MG PO (21:08)
[2024-06-13] MEDS: Nystatin Cream 15 GM TUBE 1 APPL TOPICAL (21:09)
[2024-06-14 07:00] VITALS: BMI 64.6
[2024-06-14 08:00] VITALS: BP 144/83; PULSE 80; RESP 18; TEMP 36.2; O2SAT 96
[2024-06-14 08:21] LABS: Glucose, Whole Blood 105 mg/dL (60-115)
[2024-06-14] MEDS: atenoloL 50 MG TABLET PO (08:21)
[2024-06-14] MEDS: metFORMIN HCl 1,000 MG TABLET 1000 MG PO ×2 (08:21→17:25)
[2024-06-14] MEDS: Furosemide 40 MG TABLET PO (08:21)
[2024-06-14] MEDS: Apixaban 5 MG TABLET PO ×2 (08:21→22:11)
[2024-06-14] MEDS: Doxycycline Monohydrate 100 MG CAPSULE PO ×2 (08:21→22:11)
--- NOTE | 2024-06-14 09:33 | P.PNPSI_ITS ---
Subjective Subjective Date of Service: 06/14/24 Reason For Visit: Bipolar type 1 w/ psychotic features Interim History: met with patient; discussed with team pt slowly improving and still silly, but overall improved organization. Depakote level ordered. talked w/ pt's father who agrees that pt needs VNA at least 3-4 x per week to remain stable. discussed case with wound nurse; pt started on abx for burgeoning, mild concern for cellulitis. Mental Status Exam Mental Status Exam Narrative: Pt is alert and oriented; behavior is cooperative, friendly and calm and in much improved behavioral control, though still intermittently can get agitated; patient is not in distress; dressed in casual attire with unkempt hair but improved hygiene; mood is described as not good and affect congruent; eye contact appropriate; Speech is normal rate, volume and prosody and not pressured; no psychomotor agitation/retardation present; thought process is much more organized and goal directed; Thought content is on tx, discharge; otherwise mostly pertinent to relevant topics; no delusional thoughts expressed so far; denies any SI/HI. There is no evidence of perceptual disturbance. Patients insight and judgment impaired but much improved and close to baseline Diagnostics Vital Signs (24Hr): Vital Signs - 24 hr 06/14/24 08:00 Temperature 97.2 F Pulse Rate 80 Respiratory Rate 18 Blood Pressure 144/83 H Pulse Oximetry 96 Oxygen Delivery Method Room Air BMI result Body Mass Index 66.8 Labs 06/07/24 15:51 06/13/24 08:35 Labs: Laboratory Results - last 48 hr 06/13/24 06/13/24 06/14/24 08:35 08:39 08:18 Creatinine 0.60 Estim Creat Clear Calc 258.9 Estimated GFR > 60 POC Glucose 113 105 Medications Medications Current Medications Acetaminophen (Acetaminophen 325 Mg Tablet) 650 mg PO Q6H PRN PRN Reason: Headache/Pain Mild Scale (1-3) Last Admin: 06/12/24 13:52 Dose: 650 mg Al Hydroxide/Mg Hydroxide (Magnesium Hydrox/Alum Hydrox 30 Ml Oral.Susp) 30 ml PO Q6H PRN PRN Reason: Heartburn/Nausea Apixaban (Apixaban 5 Mg Tablet) 5 mg PO BID [facility] Last Admin: 06/14/24 08:21 Dose: 5 mg Atenolol (Atenolol 50 Mg Tablet) 50 mg PO DAILY [facility]; Protocol Last Admin: 06/14/24 08:21 Dose: 50 mg Atorvastatin Calcium (Atorvastatin Calcium 20 Mg Tablet) 20 mg PO BEDTIME [facility] Last Admin: 06/13/24 21:08 Dose: 20 mg Clozapine (Clozapine 100 Mg Tablet) 100 mg PO BEDTIME [facility] Last Admin: 06/13/24 21:08 Dose: 100 mg Clozapine (Clozapine 25 Mg Tablet) 50 mg PO BEDTIME [facility] Last Admin: 06/13/24 21:08 Dose: 50 mg Divalproex Sodium (Divalproex Sodium Er 500 Mg Tab.Er.24h) 1,500 mg PO BEDTIME [facility] Last Admin: 06/13/24 21:08 Dose: 1,500 mg Doxycycline Monohydrate (Doxycycline Monohydrate 100 Mg Capsule) 100 mg PO Q12H [facility] Last Admin: 06/14/24 08:21 Dose: 100 mg Furosemide (Furosemide 40 Mg Tablet) 40 mg PO DAILY [facility]; Protocol Last Admin: 06/14/24 08:21 Dose: 40 mg Haloperidol (Haloperidol 5 Mg Tablet) 5 mg PO TID PRN PRN Reason: Psychosis Last Admin: 06/04/24 17:12 Dose: 5 mg Hydroxyzine HCl (Hydroxyzine Hcl 25 Mg Tablet) 25 mg PO Q6H PRN PRN Reason: Anxiety Last Admin: 06/05/24 16:43 Dose: 25 mg Lactic Acid (Ammonium Lactate 12 % Lotion 226 Gm Bottle) 1 appl TOPICAL BID PRN; Protocol PRN Reason: Dry Skin Last Admin: 06/12/24 08:45 Dose: 1 appl Lorazepam (Lorazepam 1 Mg Tablet) 1 mg PO BEDTIME [facility] Last Admin: 06/13/24 21:08 Dose: 1 mg Magnesium Hydroxide (Milk Of Magnesia 30 Ml Oral.Susp) 30 ml PO DAILY PRN PRN Reason: Constipation Metformin HCl (Metformin Hcl 1,000 Mg Tablet) 1,000 mg PO BIDWM [facility]OCENCIO Last Admin: 06/14/24 08:21 Dose: 1,000 mg Nystatin (Nystatin Cream 15 Gm Tube) 1 appl TOPICAL BID [facility]; Protocol Last Admin: 06/14/24 09:02 Dose: Not Given Trazodone HCl (Trazodone Hcl 50 Mg Tablet) 50 mg PO BEDTIME MRX1 PRN PRN Reason: Insomnia Last Admin: 06/09/24 20:49 Dose: 50 mg Allergies Allergies Allergy/AdvReac Type Severity Reaction Status Date / Time kiwi [KIWI] Allergy Mild HIVES Verified 05/29/24 14:16 mold [MOLD EXTRACTS*] Allergy Mild HIVES Verified 05/29/24 14:16 Assessment & Plan Assessment & Plan (1) Bipolar disorder: Qualifiers: Active/Remission status: in full remission Most recent bipolar episode type: mixed Qualified Code(s): F31.78 - Bipolar disorder, in full remission, most recent episode mixed Status: Acute Code(s): F31.9 - Bipolar disorder, unspecified (2) Schizoaffective disorder, bipolar type: Status: Acute Code(s): F25.0 - Schizoaffective disorder, bipolar type Plan 33 yo female with schizoaffective disorder, bipolar type transferred from [facility] ED due to brendon and disorganization after calling 911. She has been decompensating in the last few days per report. Unclear precipitants. She has repeated prolonged hospitalizations. Hospital course: 06/04 patient remains manic, psychotic and hypersexual, disorganized. Patient agreed to restart Depakote 06/05 Patient remains manic, psychotic and sexually focused making constant sexual remarks to staff. Patient however willing to sign a CV and remain on the unit for treatment. Adherent with medications Collateral provided reports that possible 1 reason for decompensation was that the VNA was reduced to once a week wears formally once a day. They say around 05/29 things started to get off 06/06 Patient continues to be hypersexual making sexualized comments to staff. Patient continues to insist that she is , she knew the sonogram and that she needs a Pap smear, chronic delusional thoughts which do not respond to reality testing. Patient remains making bizarre nonsensical references and will laugh uncontrollably and inappropriately at times. Conversely, she was able to have a logical and educated discussion about her diabetes. Spot Facer explained that sugars were elevated which she understood and was able to discuss whether to increase metformin, which she is concerned will cause loose stool verses getting back on Trulicity which she said she was on in the past and helped her lose weight. Spot Facer agreed to consider options. 06/07 perhaps a little less manic though still disorganized; reviewed Depakote level which is subtherapeutic; discussed with patient who agrees to increase dose 06/08 continue tx plan, allo more time for current med regimen to work 06/09 little calmer but remains disorganized; continue tx plan 06/10 continue treatment plan; will get Depakote level tomorrow -ordered Diflucan for yeast infection; with repeat in 3 days -wound consult placed to assess hidradenitis suppurativa under bilateral left breast/bilateral thigh, to make sure not getting infected 06/11 pt doing much better and able to hold a linear, logical and mostly appropriate conversation for the first time this admission. Pt says she's feeling better and looking forward to discharge, looking forward to watching her favorite TV show. Pt says she will continue taking medications; says did not mean to stop last time, but that they changed a medication on me... 06/12 patient has improved and more organized; still not at baseline but progressing Wound consult ordered to assess left breast hidradenitis suppurativa 06/13 No change in presentation. Patient still bothered by having her menses. Still makes silly nonsensical comments during conversation but again is overall redirectable. Discussed findings with wound nurse who has some minor concerns for possible burgeoning cellulitis on left breast. Hospital consult ordered 06/14 pt slowly improving and still silly, but overall improved organization. Depakote level ordered. talked w/ pt's father who agrees that pt needs VNA at least 3-4 x per week to remain stable. -discussed case with wound nurse; pt started on abx for burgeoning, mild concern for cellulitis. Plan: cv continue Depakote ER 1500 mg q.h.s. (used to be on intermediate 500 mg b.i.d.) -labs ordered for Depakote level Continue Clozaril 25 mg daily Continue Clozaril 125 mg q.h.s. increase metformin to 1000mg bid - Collateral information from family and providers. - Milieu treatment and group therapy. - Medications: Restart OP medications. - Social work evaluation. - Disposition planning. Patient educated on: diagnosis, medication risk/benefits and medical condition Informed Consent: understands, does not understand and further education needed Reason for continued inpatient stay Substantial Risk for: rapid decompensation and med/psych decompensation Time Spent With Patient Time: Total time managing care of this patient today ____ minutes.
[2024-06-14 20:00] VITALS: BP 157/86; PULSE 89; RESP 16; TEMP 36.8; O2SAT 94
[2024-06-14] MEDS: Divalproex Sodium ER 500 MG TAB.ER.24H 1500 MG PO (22:10)
[2024-06-14] MEDS: Atorvastatin Calcium 20 MG TABLET PO (22:10)
[2024-06-14] MEDS: LORazepam 1 MG TABLET PO (22:11)
[2024-06-14] MEDS: cloZAPine 100 MG TABLET PO (22:11)
[2024-06-14] MEDS: cloZAPine 25 MG TABLET 50 MG PO (22:12)
[2024-06-14] MEDS: Nystatin Cream 15 GM TUBE 1 APPL TOPICAL (22:43)
[2024-06-14] MEDS: Ammonium Lactate 12 % Lotion 226 GM BOTTLE 1 APPL TOPICAL (22:44)
[2024-06-15 08:00] VITALS: BP 141/65; PULSE 103; RESP 18; O2SAT 95
[2024-06-15 09:29] LABS: Neut%MD 59.3 %; WBCANC 8.4 X10*3/uL
[2024-06-15] MEDS: Doxycycline Monohydrate 100 MG CAPSULE PO ×2 (09:36→21:27)
[2024-06-15] MEDS: atenoloL 50 MG TABLET PO (09:36)
[2024-06-15] MEDS: Furosemide 40 MG TABLET PO (09:36)
[2024-06-15] MEDS: Apixaban 5 MG TABLET PO ×2 (09:36→21:27)
[2024-06-15] MEDS: metFORMIN HCl 1,000 MG TABLET 1000 MG PO ×2 (09:37→18:52)
--- NOTE | 2024-06-15 11:49 | P.PNPSI_ITS ---
Subjective Subjective Date of Service: 06/15/24 Reason For Visit: Bipolar type 1 w/ psychotic features Subjective Notes: Conditional Voluntary Interim History: Patient's case reviewed chart reviewed case reviewed in treatment team. Patient being met manage closely regarding skin care and has been seen by wound care nurse recently no fever or gross cellulitis patient's brendon appears to be gradually improving hoping to return to live with her father Medication Compliance: Yes Mental Status Exam Mental Status Exam Narrative: Pt is alert and oriented; behavior is cooperative, friendly in eager to engage. Speech mildly pressured some flight of ideas but generally goal-directed. Thinking generally logical no gross delusional material mood described as good affect expansive some lability noted accepting treatment no hallucinations no SI or HI not aggressive needs much reassurance Diagnostics Vital Signs (24Hr): Vital Signs - 24 hr 06/14/24 20:00 06/15/24 08:00 Temperature 98.2 F Pulse Rate 89 103 H Respiratory Rate 16 18 Blood Pressure 157/86 H 141/65 H Pulse Oximetry 94 95 Oxygen Delivery Method Room Air Room Air BMI result Body Mass Index 64.6 Labs 06/07/24 15:51 06/13/24 08:35 Labs: Laboratory Results - last 48 hr 06/14/24 06/15/24 06/15/24 08:18 09:06 09:06 Absolute Neuts (auto) Cancelled 5.0 POC Glucose 105 Medications Medications Current Medications Acetaminophen (Acetaminophen 325 Mg Tablet) 650 mg PO Q6H PRN PRN Reason: Headache/Pain Mild Scale (1-3) Last Admin: 06/12/24 13:52 Dose: 650 mg Al Hydroxide/Mg Hydroxide (Magnesium Hydrox/Alum Hydrox 30 Ml Oral.Susp) 30 ml PO Q6H PRN PRN Reason: Heartburn/Nausea Apixaban (Apixaban 5 Mg Tablet) 5 mg PO BID [facility] Last Admin: 06/15/24 09:36 Dose: 5 mg Atenolol (Atenolol 50 Mg Tablet) 50 mg PO DAILY [facility]; Protocol Last Admin: 06/15/24 09:36 Dose: 50 mg Atorvastatin Calcium (Atorvastatin Calcium 20 Mg Tablet) 20 mg PO BEDTIME [facility]OC[facility]IO Last Admin: 06/14/24 22:10 Dose: 20 mg Clozapine (Clozapine 100 Mg Tablet) 100 mg PO BEDTIME [facility] Last Admin: 06/14/24 22:11 Dose: 100 mg Clozapine (Clozapine 25 Mg Tablet) 50 mg PO BEDTIME [facility] Last Admin: 06/14/24 22:12 Dose: 50 mg Divalproex Sodium (Divalproex Sodium Er 500 Mg Tab.Er.24h) 1,500 mg PO BEDTIME [facility] Last Admin: 06/14/24 22:10 Dose: 1,500 mg Doxycycline Monohydrate (Doxycycline Monohydrate 100 Mg Capsule) 100 mg PO Q12H [facility] Last Admin: 06/15/24 09:36 Dose: 100 mg Furosemide (Furosemide 40 Mg Tablet) 40 mg PO DAILY [facility]; Protocol Last Admin: 06/15/24 09:36 Dose: 40 mg Haloperidol (Haloperidol 5 Mg Tablet) 5 mg PO TID PRN PRN Reason: Psychosis Last Admin: 06/04/24 17:12 Dose: 5 mg Hydroxyzine HCl (Hydroxyzine Hcl 25 Mg Tablet) 25 mg PO Q6H PRN PRN Reason: Anxiety Last Admin: 06/05/24 16:43 Dose: 25 mg Lactic Acid (Ammonium Lactate 12 % Lotion 226 Gm Bottle) 1 appl TOPICAL BID PRN; Protocol PRN Reason: Dry Skin Last Admin: 06/14/24 22:44 Dose: 1 appl Lorazepam (Lorazepam 1 Mg Tablet) 1 mg PO BEDTIME [facility] Last Admin: 06/14/24 22:11 Dose: 1 mg Magnesium Hydroxide (Milk Of Magnesia 30 Ml Oral.Susp) 30 ml PO DAILY PRN PRN Reason: Constipation Metformin HCl (Metformin Hcl 1,000 Mg Tablet) 1,000 mg PO BIDWM [facility] Last Admin: 06/15/24 09:37 Dose: 1,000 mg Nystatin (Nystatin Cream 15 Gm Tube) 1 appl TOPICAL BID [facility]; Protocol Last Admin: 06/14/24 22:43 Dose: 1 appl Trazodone HCl (Trazodone Hcl 50 Mg Tablet) 50 mg PO BEDTIME MRX1 PRN PRN Reason: Insomnia Last Admin: 06/09/24 20:49 Dose: 50 mg Allergies Allergies Allergy/AdvReac Type Severity Reaction Status Date / Time kiwi [KIWI] Allergy Mild HIVES Verified 05/29/24 14:16 mold [MOLD EXTRACTS*] Allergy Mild HIVES Verified 05/29/24 14:16 Assessment & Plan Assessment & Plan (1) Bipolar disorder: Qualifiers: Active/Remission status: in full remission Most recent bipolar episode type: mixed Qualified Code(s): F31.78 - Bipolar disorder, in full remission, most recent episode mixed Status: Acute Code(s): F31.9 - Bipolar disorder, unspecified (2) Schizoaffective disorder, bipolar type: Status: Acute Code(s): F25.0 - Schizoaffective disorder, bipolar type Plan 33 yo female with schizoaffective disorder, bipolar type transferred from [facility] ED due to brendon and disorganization after calling 911. She has been decompensating in the last few days per report. Unclear precipitants. She has repeated prolonged hospitalizations. Hospital course: 06/04 patient remains manic, psychotic and hypersexual, disorganized. Patient agreed to restart Depakote 06/05 Patient remains manic, psychotic and sexually focused making constant sexual remarks to staff. Patient however willing to sign a CV and remain on the unit for treatment. Adherent with medications Collateral provided reports that possible 1 reason for decompensation was that the VNA was reduced to once a week wears formally once a day. They say around 05/29 things started to get off 06/06 Patient continues to be hypersexual making sexualized comments to staff. Patient continues to insist that she is , she knew the sonogram and that she needs a Pap smear, chronic delusional thoughts which do not respond to reality testing. Patient remains making bizarre nonsensical references and will laugh uncontrollably and inappropriately at times. Conversely, she was able to have a logical and educated discussion about her diabetes. Scientific Affairs Manager explained that sugars were elevated which she understood and was able to discuss whether to increase metformin, which she is concerned will cause loose stool verses getting back on Trulicity which she said she was on in the past and helped her lose weight. Scientific Affairs Manager agreed to consider options. 10 perhaps a little less manic though still disorganized; reviewed Depakote level which is subtherapeutic; discussed with patient who agrees to increase dose 06/08 continue tx plan, allo more time for current med regimen to work 06/09 little calmer but remains disorganized; continue tx plan 06/10 continue treatment plan; will get Depakote level tomorrow -ordered Diflucan for yeast infection; with repeat in 3 days -wound consult placed to assess hidradenitis suppurativa under bilateral left breast/bilateral thigh, to make sure not getting infected 06/11 pt doing much better and able to hold a linear, logical and mostly appropriate conversation for the first time this admission. Pt says she's feeling better and looking forward to discharge, looking forward to watching her favorite TV show. Pt says she will continue taking medications; says did not mean to stop last time, but that they changed a medication on me... 06/12 patient has improved and more organized; still not at baseline but progressing Wound consult ordered to assess left breast hidradenitis suppurativa 06/13 No change in presentation. Patient still bothered by having her menses. Still makes silly nonsensical comments during conversation but again is overall redirectable. Discussed findings with wound nurse who has some minor concerns for possible burgeoning cellulitis on left breast. Hospital consult ordered 06/14 pt slowly improving and still silly, but overall improved organization. Depakote level ordered. talked w/ pt's father who agrees that pt needs VNA at least 3-4 x per week to remain stable. -discussed case with wound nurse; pt started on abx for burgeoning, mild concern for cellulitis. 06/15/2024 Continue to monitor skin continue Depakote check levels continue clozapine seems much improved with clozapine Monitor for bone marrow suppression on the combination clozapine and Depakote Plan: cv continue Depakote ER 1500 mg q.h.s. (used to be on intermediate 500 mg b.i.d.) -labs ordered for Depakote level Continue Clozaril 25 mg daily Continue Clozaril 125 mg q.h.s. increase metformin to 1000mg bid - Collateral information from family and providers. - Milieu treatment and group therapy. - Medications: Restart OP medications. - Social work evaluation. - Disposition planning. Reason for continued inpatient stay Substantial Risk for: inability to function, rapid decompensation and med/psych decompensation Time Spent With Patient Time: Total time managing care of this patient today ____ minutes.
[2024-06-15 20:00] VITALS: BP 141/87; PULSE 92; RESP 20; TEMP 36.8; O2SAT 96
[2024-06-15] MEDS: cloZAPine 100 MG TABLET PO (21:26)
[2024-06-15] MEDS: Divalproex Sodium ER 500 MG TAB.ER.24H 1500 MG PO (21:26)
[2024-06-15] MEDS: Atorvastatin Calcium 20 MG TABLET PO (21:27)
[2024-06-15] MEDS: LORazepam 1 MG TABLET PO (21:27)
[2024-06-15] MEDS: cloZAPine 25 MG TABLET 50 MG PO (21:27)
[2024-06-15] MEDS: Nystatin Cream 15 GM TUBE 1 APPL TOPICAL (22:25)
[2024-06-16 08:00] VITALS: BP 146/76; PULSE 76; RESP 16; TEMP 36.9; O2SAT 98
[2024-06-16 08:36] LABS: Glucose, Whole Blood 115 mg/dL (60-115)
--- NOTE | 2024-06-16 09:35 | P.PNPSI_ITS ---
Subjective Subjective Date of Service: 06/16/24 Reason For Visit: Bipolar type 1 w/ psychotic features Subjective Notes: Conditional Voluntary Interim History: Patient was seen and discussed in rounds today. Records and plans were reviewed. She has been stable, eating and sleeping adequately and planning for discharge next week. Overall she has a brighter affect and pleasant. Eating and sleeping well. No SI. No complaints or side effects. No changes were made today Medication Compliance: Yes Side effects from medications: No Review of Systems Review of Systems Yes all other systems are reviewed and are negative Mental Status Exam Mental Status Exam Narrative: In today's visit she is alert, oriented and pleasant. Normal speech. Good eye contact. Affect is appropriate and varied. No signs of psychosis. Cognitively is intact. No active SI. Judgment is intact Diagnostics Vital Signs (24Hr): Vital Signs - 24 hr 06/15/24 20:00 Temperature 98.2 F Pulse Rate 92 Respiratory Rate 20 Blood Pressure 141/87 H Pulse Oximetry 96 Oxygen Delivery Method Room Air BMI result Body Mass Index 64.6 Labs 06/07/24 15:51 06/13/24 08:35 Labs: Laboratory Results - last 48 hr 06/15/24 06/15/24 06/16/24 09:06 09:06 08:27 Absolute Neuts (auto) Cancelled 5.0 POC Glucose 115 Medications Medications Current Medications Acetaminophen (Acetaminophen 325 Mg Tablet) 650 mg PO Q6H PRN PRN Reason: Headache/Pain Mild Scale (1-3) Last Admin: 06/12/24 13:52 Dose: 650 mg Al Hydroxide/Mg Hydroxide (Magnesium Hydrox/Alum Hydrox 30 Ml Oral.Susp) 30 ml PO Q6H PRN PRN Reason: Heartburn/Nausea Apixaban (Apixaban 5 Mg Tablet) 5 mg PO BID [facility] Last Admin: 06/15/24 21:27 Dose: 5 mg Atenolol (Atenolol 50 Mg Tablet) 50 mg PO DAILY [facility]; Protocol Last Admin: 06/15/24 09:36 Dose: 50 mg Atorvastatin Calcium (Atorvastatin Calcium 20 Mg Tablet) 20 mg PO BEDTIME [facility] Last Admin: 06/15/24 21:27 Dose: 20 mg Clozapine (Clozapine 100 Mg Tablet) 100 mg PO BEDTIME [facility] Last Admin: 06/15/24 21:26 Dose: 100 mg Clozapine (Clozapine 25 Mg Tablet) 50 mg PO BEDTIME [facility] Last Admin: 06/15/24 21:27 Dose: 50 mg Divalproex Sodium (Divalproex Sodium Er 500 Mg Tab.Er.24h) 1,500 mg PO BEDTIME [facility] Last Admin: 06/15/24 21:26 Dose: 1,500 mg Doxycycline Monohydrate (Doxycycline Monohydrate 100 Mg Capsule) 100 mg PO Q12H [facility] Last Admin: 06/15/24 21:27 Dose: 100 mg Furosemide (Furosemide 40 Mg Tablet) 40 mg PO DAILY [facility]; Protocol Last Admin: 06/15/24 09:36 Dose: 40 mg Haloperidol (Haloperidol 5 Mg Tablet) 5 mg PO TID PRN PRN Reason: Psychosis Last Admin: 06/04/24 17:12 Dose: 5 mg Hydroxyzine HCl (Hydroxyzine Hcl 25 Mg Tablet) 25 mg PO Q6H PRN PRN Reason: Anxiety Last Admin: 06/05/24 16:43 Dose: 25 mg Lactic Acid (Ammonium Lactate 12 % Lotion 226 Gm Bottle) 1 appl TOPICAL BID PRN; Protocol PRN Reason: Dry Skin Last Admin: 06/14/24 22:44 Dose: 1 appl Lorazepam (Lorazepam 1 Mg Tablet) 1 mg PO BEDTIME [facility] Last Admin: 06/15/24 21:27 Dose: 1 mg Magnesium Hydroxide (Milk Of Magnesia 30 Ml Oral.Susp) 30 ml PO DAILY PRN PRN Reason: Constipation Metformin HCl (Metformin Hcl 1,000 Mg Tablet) 1,000 mg PO BIDWM [facility] Last Admin: 06/15/24 18:52 Dose: 1,000 mg Nystatin (Nystatin Cream 15 Gm Tube) 1 appl TOPICAL BID [facility]; Protocol Last Admin: 06/15/24 22:25 Dose: 1 appl Trazodone HCl (Trazodone Hcl 50 Mg Tablet) 50 mg PO BEDTIME [facility] PRN PRN Reason: Insomnia Last Admin: 06/09/24 20:49 Dose: 50 mg Allergies Allergies Allergy/AdvReac Type Severity Reaction Status Date / Time kiwi [KIWI] Allergy Mild HIVES Verified 05/29/24 14:16 mold [MOLD EXTRACTS*] Allergy Mild HIVES Verified 05/29/24 14:16 Assessment & Plan Assessment & Plan (1) Bipolar disorder: Qualifiers: Active/Remission status: in full remission Most recent bipolar episode type: mixed Qualified Code(s): F31.78 - Bipolar disorder, in full remission, most recent episode mixed Status: Acute Code(s): F31.9 - Bipolar disorder, unspecified (2) Schizoaffective disorder, bipolar type: Status: Acute Code(s): F25.0 - Schizoaffective disorder, bipolar type Plan 33 yo female with schizoaffective disorder, bipolar type transferred from [facility] ED due to brendon and disorganization after calling 911. She has been decompensating in the last few days per report. Unclear precipitants. She has repeated prolonged hospitalizations. Hospital course: 06/04 patient remains manic, psychotic and hypersexual, disorganized. Patient agreed to restart Depakote 06/05 Patient remains manic, psychotic and sexually focused making constant sexual remarks to staff. Patient however willing to sign a CV and remain on the unit for treatment. Adherent with medications Collateral provided reports that possible 1 reason for decompensation was that the VNA was reduced to once a week wears formally once a day. They say around 05/29 things started to get off 06/06 Patient continues to be hypersexual making sexualized comments to staff. Patient continues to insist that she is , she knew the sonogram and that she needs a Pap smear, chronic delusional thoughts which do not respond to reality testing. Patient remains making bizarre nonsensical references and will laugh uncontrollably and inappropriately at times. Conversely, she was able to have a logical and educated discussion about her diabetes. [employer] Operator explained that sugars were elevated which she understood and was able to discuss whether to increase metformin, which she is concerned will cause loose stool verses getting back on Trulicity which she said she was on in the past and helped her lose weight. [employer] Operator agreed to consider options. 10 perhaps a little less manic though still disorganized; reviewed Depakote level which is subtherapeutic; discussed with patient who agrees to increase dose 06/08 continue tx plan, allo more time for current med regimen to work 06/09 little calmer but remains disorganized; continue tx plan 06/10 continue treatment plan; will get Depakote level tomorrow -ordered Diflucan for yeast infection; with repeat in 3 days -wound consult placed to assess hidradenitis suppurativa under bilateral left breast/bilateral thigh, to make sure not getting infected 06/11 pt doing much better and able to hold a linear, logical and mostly appropriate conversation for the first time this admission. Pt says she's feeling better and looking forward to discharge, looking forward to watching her favorite TV show. Pt says she will continue taking medications; says did not mean to stop last time, but that they changed a medication on me... 06/12 patient has improved and more organized; still not at baseline but progressing Wound consult ordered to assess left breast hidradenitis suppurativa 06/13 No change in presentation. Patient still bothered by having her menses. Still makes silly nonsensical comments during conversation but again is overall redirectable. Discussed findings with wound nurse who has some minor concerns for possible burgeoning cellulitis on left breast. Hospital consult ordered 06/14 pt slowly improving and still silly, but overall improved organization. Depakote level ordered. talked w/ pt's father who agrees that pt needs VNA at least 3-4 x per week to remain stable. -discussed case with wound nurse; pt started on abx for burgeoning, mild concern for cellulitis. 06/15/2024 Continue to monitor skin continue Depakote check levels continue clozapine seems much improved with clozapine Monitor for bone marrow suppression on the combination clozapine and Depakote 06/16: Continue current regimen and plans Plan: cv continue Depakote ER 1500 mg q.h.s. (used to be on intermediate 500 mg b.i.d.) -labs ordered for Depakote level Continue Clozaril 25 mg daily Continue Clozaril 125 mg q.h.s. increase metformin to 1000mg bid - Collateral information from family and providers. - Milieu treatment and group therapy. - Medications: Restart OP medications. - Social work evaluation. - Disposition planning. Reason for continued inpatient stay Substantial Risk for: med/psych decompensation Time Spent With Patient Time: Total time managing care of this patient today ____ minutes.
[2024-06-16 11:44] VITALS: BP 142/76; PULSE 82
[2024-06-16] MEDS: Apixaban 5 MG TABLET PO ×2 (11:44→23:25)
[2024-06-16] MEDS: metFORMIN HCl 1,000 MG TABLET 1000 MG PO ×2 (11:44→17:52)
[2024-06-16] MEDS: atenoloL 50 MG TABLET PO (11:44)
[2024-06-16 11:45] VITALS: BP 142/76
[2024-06-16] MEDS: Furosemide 40 MG TABLET PO (11:45)
[2024-06-16] MEDS: Doxycycline Monohydrate 100 MG CAPSULE PO ×2 (11:45→23:25)
[2024-06-16 14:01] LABS: Valproate 35.7 mcg/mL (50.0-100.0)
[2024-06-16 14:02] LABS: Alanine Aminotransferase 25 U/L (0-31); Albumin Level 4.2 g/dL (3.5-5.0); Alkaline Phosphatase 76 U/L (39-117); Aspartate Amino Transferase 17 U/L (5-31); Bilirubin Direct 0.1 mg/dL (0.0-0.5); Bilirubin Total 0.4 mg/dL (0.0-1.0); Total Protein 7.3 g/dL (6.5-8.0)
[2024-06-16 14:55] LABS: Ammonia 53 umol/L (13-55)
[2024-06-16 20:00] VITALS: BP 145/80; PULSE 88; RESP 20; TEMP 36.9; O2SAT 97
[2024-06-16] MEDS: Divalproex Sodium ER 500 MG TAB.ER.24H 1500 MG PO (23:24)
[2024-06-16] MEDS: cloZAPine 25 MG TABLET 50 MG PO (23:24)
[2024-06-16] MEDS: Atorvastatin Calcium 20 MG TABLET PO (23:25)
[2024-06-16] MEDS: cloZAPine 100 MG TABLET PO (23:25)
[2024-06-16] MEDS: LORazepam 1 MG TABLET PO (23:25)
[2024-06-17 07:41] LABS: Neut%MD 54.6 %; WBCANC 9.1 X10*3/uL
[2024-06-17 07:54] LABS: Creatinine Clr Calc Pharmacy 261.8; Estimated Glomerular Filt Rate > 60
[2024-06-17 08:41] LABS: Glucose, Whole Blood 125 mg/dL (60-115)
[2024-06-17 09:03] VITALS: BP 141/88; PULSE 98; RESP 16; TEMP 36.6; O2SAT 93
[2024-06-17 09:31] VITALS: BP 120/89; PULSE 101
[2024-06-17] MEDS: Doxycycline Monohydrate 100 MG CAPSULE PO ×2 (09:31→22:52)
[2024-06-17] MEDS: Apixaban 5 MG TABLET PO ×2 (09:31→22:51)
[2024-06-17] MEDS: atenoloL 50 MG TABLET PO (09:31)
[2024-06-17] MEDS: metFORMIN HCl 1,000 MG TABLET 1000 MG PO ×2 (09:31→16:37)
[2024-06-17] MEDS: Furosemide 40 MG TABLET PO (09:31)
--- NOTE | 2024-06-17 09:32 | P.PNPSI_ITS ---
Subjective Subjective Date of Service: 06/17/24 Reason For Visit: Bipolar type 1 w/ psychotic features Subjective Notes: Conditional Voluntary Interim History: Patient was seen and discussed in rounds today. Records and plans were reviewed. She is doing fairly well and has been stable. Eating adequately and sleeping a little excessively. ADLs are poor. No complaints or side effects. No changes were made today. No SI or dangerous behaviors. Medication Compliance: Yes Side effects from medications: No Review of Systems Review of Systems Yes all other systems are reviewed and are negative Mental Status Exam Mental Status Exam Narrative: In today's visit she is alert, oriented and pleasant. Normal speech. Good eye contact. Affect is appropriate and varied. No signs of psychosis. Cognitively is intact. No active SI. Judgment is intact Diagnostics Vital Signs (24Hr): Vital Signs - 24 hr 06/16/24 11:44 06/16/24 11:45 06/16/24 20:00 Temperature 98.4 F Pulse Rate 82 88 Respiratory Rate 20 Blood Pressure 142/76 H 142/76 H 145/80 H Pulse Oximetry 97 Oxygen Delivery Method Room Air BMI result Body Mass Index 64.6 Labs 06/07/24 15:51 06/17/24 07:33 Labs: Laboratory Results - last 48 hr 06/16/24 06/16/24 06/17/24 08:27 13:37 07:33 Absolute Neuts (auto) 5.0 Creatinine 0.58 Estim Creat Clear Calc 261.8 Estimated GFR > 60 POC Glucose 115 Total Bilirubin 0.4 Direct Bilirubin 0.1 AST 17 ALT 25 Alkaline Phosphatase 76 Ammonia 53 Total Protein 7.3 Albumin 4.2 Valproic Acid 35.7 L 06/17/24 08:36 Absolute Neuts (auto) Creatinine Estim Creat Clear Calc Estimated GFR POC Glucose 125 H Total Bilirubin Direct Bilirubin AST ALT Alkaline Phosphatase Ammonia Total Protein Albumin Valproic Acid Medications Medications Current Medications Acetaminophen (Acetaminophen 325 Mg Tablet) 650 mg PO Q6H PRN PRN Reason: Headache/Pain Mild Scale (1-3) Last Admin: 06/12/24 13:52 Dose: 650 mg Al Hydroxide/Mg Hydroxide (Magnesium Hydrox/Alum Hydrox 30 Ml Oral.Susp) 30 ml PO Q6H PRN PRN Reason: Heartburn/Nausea Apixaban (Apixaban 5 Mg Tablet) 5 mg PO BID [facility] Last Admin: 06/16/24 23:25 Dose: 5 mg Atenolol (Atenolol 50 Mg Tablet) 50 mg PO DAILY [facility]; Protocol Last Admin: 06/16/24 11:44 Dose: 50 mg Atorvastatin Calcium (Atorvastatin Calcium 20 Mg Tablet) 20 mg PO BEDTIME [facility] Last Admin: 06/16/24 23:25 Dose: 20 mg Clozapine (Clozapine 100 Mg Tablet) 100 mg PO BEDTIME [facility] Last Admin: 06/16/24 23:25 Dose: 100 mg Clozapine (Clozapine 25 Mg Tablet) 50 mg PO BEDTIME [facility] Last Admin: 06/16/24 23:24 Dose: 50 mg Divalproex Sodium (Divalproex Sodium Er 500 Mg Tab.Er.24h) 1,500 mg PO BEDTIME [facility] Last Admin: 06/16/24 23:24 Dose: 1,500 mg Doxycycline Monohydrate (Doxycycline Monohydrate 100 Mg Capsule) 100 mg PO Q12H [facility] Last Admin: 06/16/24 23:25 Dose: 100 mg Furosemide (Furosemide 40 Mg Tablet) 40 mg PO DAILY [facility]; Protocol Last Admin: 06/16/24 11:45 Dose: 40 mg Haloperidol (Haloperidol 5 Mg Tablet) 5 mg PO TID PRN PRN Reason: Psychosis Last Admin: 06/04/24 17:12 Dose: 5 mg Hydroxyzine HCl (Hydroxyzine Hcl 25 Mg Tablet) 25 mg PO Q6H PRN PRN Reason: Anxiety Last Admin: 06/05/24 16:43 Dose: 25 mg Lactic Acid (Ammonium Lactate 12 % Lotion 226 Gm Bottle) 1 appl TOPICAL BID PRN; Protocol PRN Reason: Dry Skin Last Admin: 06/14/24 22:44 Dose: 1 appl Lorazepam (Lorazepam 1 Mg Tablet) 1 mg PO BEDTIME [facility] Last Admin: 06/16/24 23:25 Dose: 1 mg Magnesium Hydroxide (Milk Of Magnesia 30 Ml Oral.Susp) 30 ml PO DAILY PRN PRN Reason: Constipation Metformin HCl (Metformin Hcl 1,000 Mg Tablet) 1,000 mg PO BIDWM [facility] Last Admin: 06/16/24 17:52 Dose: 1,000 mg Nystatin (Nystatin Cream 15 Gm Tube) 1 appl TOPICAL BID [facility]; Protocol Last Admin: 06/17/24 06:06 Dose: Not Given Trazodone HCl (Trazodone Hcl 50 Mg Tablet) 50 mg PO BEDTIME MRX1 PRN PRN Reason: Insomnia Last Admin: 06/09/24 20:49 Dose: 50 mg Allergies Allergies Allergy/AdvReac Type Severity Reaction Status Date / Time kiwi [KIWI] Allergy Mild HIVES Verified 05/29/24 14:16 mold [MOLD EXTRACTS*] Allergy Mild HIVES Verified 05/29/24 14:16 Assessment & Plan Assessment & Plan (1) Bipolar disorder: Qualifiers: Active/Remission status: in full remission Most recent bipolar episode type: mixed Qualified Code(s): F31.78 - Bipolar disorder, in full remission, most recent episode mixed Status: Acute Code(s): F31.9 - Bipolar disorder, unspecified (2) Schizoaffective disorder, bipolar type: Status: Acute Code(s): F25.0 - Schizoaffective disorder, bipolar type Plan 33 yo female with schizoaffective disorder, bipolar type transferred from [facility] ED due to brendon and disorganization after calling 911. She has been decompensating in the last few days per report. Unclear precipitants. She has repeated prolonged hospitalizations. Hospital course: 06/04 patient remains manic, psychotic and hypersexual, disorganized. Patient agreed to restart Depakote 06/05 Patient remains manic, psychotic and sexually focused making constant sexual remarks to staff. Patient however willing to sign a CV and remain on the unit for treatment. Adherent with medications Collateral provided reports that possible 1 reason for decompensation was that the VNA was reduced to once a week wears formally once a day. They say around 05/29 things started to get off 06/06 Patient continues to be hypersexual making sexualized comments to staff. Patient continues to insist that she is , she knew the sonogram and that she needs a Pap smear, chronic delusional thoughts which do not respond to reality testing. Patient remains making bizarre nonsensical references and will laugh uncontrollably and inappropriately at times. Conversely, she was able to have a logical and educated discussion about her diabetes. Computing Consultant explained that sugars were elevated which she understood and was able to discuss whether to increase metformin, which she is concerned will cause loose stool verses getting back on Trulicity which she said she was on in the past and helped her lose weight. Computing Consultant agreed to consider options. 06/07 perhaps a little less manic though still disorganized; reviewed Depakote level which is subtherapeutic; discussed with patient who agrees to increase dose 06/08 continue tx plan, allo more time for current med regimen to work 06/09 little calmer but remains disorganized; continue tx plan 06/10 continue treatment plan; will get Depakote level tomorrow -ordered Diflucan for yeast infection; with repeat in 3 days -wound consult placed to assess hidradenitis suppurativa under bilateral left breast/bilateral thigh, to make sure not getting infected 06/11 pt doing much better and able to hold a linear, logical and mostly appropriate conversation for the first time this admission. Pt says she's feeling better and looking forward to discharge, looking forward to watching her favorite TV show. Pt says she will continue taking medications; says did not mean to stop last time, but that they changed a medication on me... 06/12 patient has improved and more organized; still not at baseline but progressing Wound consult ordered to assess left breast hidradenitis suppurativa 06/13 No change in presentation. Patient still bothered by having her menses. Still makes silly nonsensical comments during conversation but again is overall redirectable. Discussed findings with wound nurse who has some minor concerns for possible burgeoning cellulitis on left breast. Hospital consult ordered 06/14 pt slowly improving and still silly, but overall improved organization. Depakote level ordered. talked w/ pt's father who agrees that pt needs VNA at least 3-4 x per week to remain stable. -discussed case with wound nurse; pt started on abx for burgeoning, mild concern for cellulitis. 06/15/2024 Continue to monitor skin continue Depakote check levels continue clozapine seems much improved with clozapine Monitor for bone marrow suppression on the combination clozapine and Depakote 06/16: Continue current regimen and plans 06/17: Continue current regimen and plans Plan: cv continue Depakote ER 1500 mg q.h.s. (used to be on intermediate 500 mg b.i.d.) -labs ordered for Depakote level Continue Clozaril 25 mg daily Continue Clozaril 125 mg q.h.s. increase metformin to 1000mg bid - Collateral information from family and providers. - Milieu treatment and group therapy. - Medications: Restart OP medications. - Social work evaluation. - Disposition planning. Reason for continued inpatient stay Substantial Risk for: rapid decompensation Time Spent With Patient Time: Total time managing care of this patient today ____ minutes.
[2024-06-17] MEDS: LORazepam 1 MG TABLET PO (22:51)
[2024-06-17] MEDS: Atorvastatin Calcium 20 MG TABLET PO (22:51)
[2024-06-17] MEDS: Divalproex Sodium ER 500 MG TAB.ER.24H 1500 MG PO (22:52)
[2024-06-17] MEDS: cloZAPine 25 MG TABLET 50 MG PO (22:52)
[2024-06-17] MEDS: cloZAPine 100 MG TABLET PO (22:52)
--- NOTE | 2024-06-18 08:54 | HO.PSYCHPN ---
Subjective Subjective Date of Service: 06/18/24 Reason For Visit: Bipolar type 1 w/ psychotic features Subjective Notes: Conditional Voluntary Interim History: Patient was seen and discussed in rounds today. Records and plans were reviewed. She continues to be mostly in her room. Eating and sleeping adequately and excessively. ADLs are very poor and promises to take a shower today. No SI. No complaints or side effects. No changes were made. Medication Compliance: Yes Side effects from medications: No Review of Systems Review of Systems Yes all other systems are reviewed and are negative Mental Status Exam Mental Status Exam Narrative: In today's visit she is alert, oriented and pleasant. Normal speech. Good eye contact. Affect is appropriate and varied. No signs of psychosis. Cognitively is intact. No active SI. Judgment is intact Diagnostics Vital Signs (24Hr): Vital Signs - 24 hr 06/17/24 09:03 06/17/24 09:31 06/17/24 09:31 Temperature 97.8 F Pulse Rate 98 101 H Respiratory Rate 16 Blood Pressure 141/88 H 120/89 120/89 Pulse Oximetry 93 Oxygen Delivery Method Room Air BMI result Body Mass Index 64.6 Labs 06/07/24 15:51 06/17/24 07:33 Labs: Laboratory Results - last 48 hr 06/16/24 06/17/24 06/17/24 13:37 07:33 08:36 Absolute Neuts (auto) 5.0 Hold Purple Top Creatinine 0.58 Estim Creat Clear Calc 261.8 Estimated GFR > 60 POC Glucose 125 H Total Bilirubin 0.4 Direct Bilirubin 0.1 AST 17 ALT 25 Alkaline Phosphatase 76 Ammonia 53 Total Protein 7.3 Albumin 4.2 Valproic Acid 35.7 L 06/18/24 08:28 Absolute Neuts (auto) Hold Purple Top SEE NOTE Creatinine Estim Creat Clear Calc Estimated GFR POC Glucose Total Bilirubin Direct Bilirubin AST ALT Alkaline Phosphatase Ammonia Total Protein Albumin Valproic Acid Medications Medications Current Medications Acetaminophen (Acetaminophen 325 Mg Tablet) 650 mg PO Q6H PRN PRN Reason: Headache/Pain Mild Scale (1-3) Last Admin: 06/12/24 13:52 Dose: 650 mg Al Hydroxide/Mg Hydroxide (Magnesium Hydrox/Alum Hydrox 30 Ml Oral.Susp) 30 ml PO Q6H PRN PRN Reason: Heartburn/Nausea Apixaban (Apixaban 5 Mg Tablet) 5 mg PO BID INOCENCIO Last Admin: 06/17/24 22:51 Dose: 5 mg Atenolol (Atenolol 50 Mg Tablet) 50 mg PO DAILY INOCENCIO; Protocol Last Admin: 06/17/24 09:31 Dose: 50 mg Atorvastatin Calcium (Atorvastatin Calcium 20 Mg Tablet) 20 mg PO BEDTIME INOCENCIO Last Admin: 06/17/24 22:51 Dose: 20 mg Clozapine (Clozapine 100 Mg Tablet) 100 mg PO BEDTIME INOCENCIO Last Admin: 06/17/24 22:52 Dose: 100 mg Clozapine (Clozapine 25 Mg Tablet) 50 mg PO BEDTIME INOCENCIO Last Admin: 06/17/24 22:52 Dose: 50 mg Divalproex Sodium (Divalproex Sodium Er 500 Mg Tab.Er.24h) 1,500 mg PO BEDTIME INOCENCIO Last Admin: 06/17/24 22:52 Dose: 1,500 mg Doxycycline Monohydrate (Doxycycline Monohydrate 100 Mg Capsule) 100 mg PO Q12H INOCENCIO Last Admin: 06/17/24 22:52 Dose: 100 mg Furosemide (Furosemide 40 Mg Tablet) 40 mg PO DAILY INOCENCIO; Protocol Last Admin: 06/17/24 09:31 Dose: 40 mg Haloperidol (Haloperidol 5 Mg Tablet) 5 mg PO TID PRN PRN Reason: Psychosis Last Admin: 06/04/24 17:12 Dose: 5 mg Hydroxyzine HCl (Hydroxyzine Hcl 25 Mg Tablet) 25 mg PO Q6H PRN PRN Reason: Anxiety Last Admin: 06/05/24 16:43 Dose: 25 mg Lactic Acid (Ammonium Lactate 12 % Lotion 226 Gm Bottle) 1 appl TOPICAL BID PRN; Protocol PRN Reason: Dry Skin Last Admin: 06/14/24 22:44 Dose: 1 appl Lorazepam (Lorazepam 1 Mg Tablet) 1 mg PO BEDTIME INOCENCIO Last Admin: 06/17/24 22:51 Dose: 1 mg Magnesium Hydroxide (Milk Of Magnesia 30 Ml Oral.Susp) 30 ml PO DAILY PRN PRN Reason: Constipation Metformin HCl (Metformin Hcl 1,000 Mg Tablet) 1,000 mg PO BIDWM INOCENCIO Last Admin: 06/17/24 16:37 Dose: 1,000 mg Nystatin (Nystatin Cream 15 Gm Tube) 1 appl TOPICAL BID INOCENCIO; Protocol Last Admin: 06/17/24 22:52 Dose: Not Given Trazodone HCl (Trazodone Hcl 50 Mg Tablet) 50 mg PO BEDTIME MRX1 PRN PRN Reason: Insomnia Last Admin: 06/09/24 20:49 Dose: 50 mg Allergies Allergies Allergy/AdvReac Type Severity Reaction Status Date / Time kiwi [KIWI] Allergy Mild HIVES Verified 05/29/24 14:16 mold [MOLD EXTRACTS*] Allergy Mild HIVES Verified 05/29/24 14:16 Assessment & Plan Assessment & Plan (1) Bipolar disorder: Qualifiers: Active/Remission status: in full remission Most recent bipolar episode type: mixed Qualified Code(s): F31.78 - Bipolar disorder, in full remission, most recent episode mixed Status: Acute Code(s): F31.9 - Bipolar disorder, unspecified (2) Schizoaffective disorder, bipolar type: Status: Acute Code(s): F25.0 - Schizoaffective disorder, bipolar type Plan 33 yo female with schizoaffective disorder, bipolar type transferred from [facility] ED due to brendon and disorganization after calling 911. She has been decompensating in the last few days per report. Unclear precipitants. She has repeated prolonged hospitalizations. Hospital course: 06/04 patient remains manic, psychotic and hypersexual, disorganized. Patient agreed to restart Depakote 06/05 Patient remains manic, psychotic and sexually focused making constant sexual remarks to staff. Patient however willing to sign a CV and remain on the unit for treatment. Adherent with medications Collateral provided reports that possible 1 reason for decompensation was that the VNA was reduced to once a week wears formally once a day. They say around 05/29 things started to get off 06/06 Patient continues to be hypersexual making sexualized comments to staff. Patient continues to insist that she is , she knew the sonogram and that she needs a Pap smear, chronic delusional thoughts which do not respond to reality testing. Patient remains making bizarre nonsensical references and will laugh uncontrollably and inappropriately at times. Conversely, she was able to have a logical and educated discussion about her diabetes. Treadle Cut Off Saw Operator explained that sugars were elevated which she understood and was able to discuss whether to increase metformin, which she is concerned will cause loose stool verses getting back on Trulicity which she said she was on in the past and helped her lose weight. Treadle Cut Off Saw Operator agreed to consider options. 06/07 perhaps a little less manic though still disorganized; reviewed Depakote level which is subtherapeutic; discussed with patient who agrees to increase dose 06/08 continue tx plan, allo more time for current med regimen to work 06/09 little calmer but remains disorganized; continue tx plan 06/10 continue treatment plan; will get Depakote level tomorrow -ordered Diflucan for yeast infection; with repeat in 3 days -wound consult placed to assess hidradenitis suppurativa under bilateral left breast/bilateral thigh, to make sure not getting infected 06/11 pt doing much better and able to hold a linear, logical and mostly appropriate conversation for the first time this admission. Pt says she's feeling better and looking forward to discharge, looking forward to watching her favorite TV show. Pt says she will continue taking medications; says did not mean to stop last time, but that they changed a medication on me... 06/12 patient has improved and more organized; still not at baseline but progressing Wound consult ordered to assess left breast hidradenitis suppurativa 06/13 No change in presentation. Patient still bothered by having her menses. Still makes silly nonsensical comments during conversation but again is overall redirectable. Discussed findings with wound nurse who has some minor concerns for possible burgeoning cellulitis on left breast. Hospital consult ordered 06/14 pt slowly improving and still silly, but overall improved organization. Depakote level ordered. talked w/ pt's father who agrees that pt needs VNA at least 3-4 x per week to remain stable. -discussed case with wound nurse; pt started on abx for burgeoning, mild concern for cellulitis. 06/15/2024 Continue to monitor skin continue Depakote check levels continue clozapine seems much improved with clozapine Monitor for bone marrow suppression on the combination clozapine and Depakote 06/16: Continue current regimen and plans 06/17: Continue current regimen and plans 06/18: Continue current plans and regimen Plan: cv continue Depakote ER 1500 mg q.h.s. (used to be on intermediate 500 mg b.i.d.) -labs ordered for Depakote level Continue Clozaril 25 mg daily Continue Clozaril 125 mg q.h.s. increase metformin to 1000mg bid - Collateral information from family and providers. - Milieu treatment and group therapy. - Medications: Restart OP medications. - Social work evaluation. - Disposition planning. Reason for continued inpatient stay Substantial Risk for: rapid decompensation Time Spent With Patient Time: Total time managing care of this patient today ____ minutes.
[2024-06-18 09:09] LABS: Valproate 53.5 mcg/mL (50.0-100.0)
--- NOTE | 2024-06-18 10:22 | PC.NURSE ---
due to acuity of milieu, morning scheduled medication administration was delayed.
[2024-06-18 11:08] VITALS: BP 128/78; PULSE 86; RESP 16; TEMP 36.6; O2SAT 97
[2024-06-18 11:49] VITALS: BP 128/78
[2024-06-18] MEDS: Furosemide 40 MG TABLET PO (11:49)
[2024-06-18] MEDS: metFORMIN HCl 1,000 MG TABLET 1000 MG PO ×2 (11:49→17:49)
[2024-06-18] MEDS: atenoloL 50 MG TABLET PO (11:49)
[2024-06-18] MEDS: Doxycycline Monohydrate 100 MG CAPSULE PO ×2 (11:49→22:31)
[2024-06-18] MEDS: Apixaban 5 MG TABLET PO ×2 (11:49→22:32)
[2024-06-18] MEDS: Nystatin Cream 15 GM TUBE 1 APPL TOPICAL (14:13)
[2024-06-18 20:00] VITALS: BP 116/67; TEMP 36.1; O2SAT 96
[2024-06-18] MEDS: Atorvastatin Calcium 20 MG TABLET PO (22:30)
[2024-06-18] MEDS: LORazepam 1 MG TABLET PO (22:30)
[2024-06-18] MEDS: cloZAPine 100 MG TABLET PO (22:30)
[2024-06-18] MEDS: cloZAPine 25 MG TABLET 50 MG PO (22:31)
[2024-06-18] MEDS: Divalproex Sodium ER 500 MG TAB.ER.24H 1500 MG PO (22:32)
[2024-06-18] MEDS: Ammonium Lactate 12 % Lotion 226 GM BOTTLE 1 APPL TOPICAL (22:36)
[2024-06-19 08:00] VITALS: BP 131/67; PULSE 92; TEMP 36.6; O2SAT 100
--- NOTE | 2024-06-19 09:42 | PM.PSYDC ---
DS: Providers Provider Date of Service: 06/19/24 Date of admission: 06/02/24 19:27 Date of discharge: 06/19/24 Primary care physician: Unknown Physician Consults: 06/02/24 20:16 Consult to Hospitalist Routine Comment: Consulting Provider: Hospitalist Reason For Exam: OSH admission physical 06/06/24 21:45 Consult to Hospitalist Routine Comment: Consulting Provider: Hospitalist Reason For Exam: Worsening edema 06/08/24 09:35 Consult to Hospitalist Routine Comment: chart review; rec dose of Trulicity (says on befor Consulting Provider: Hospitalist Reason For Exam: rec dose of Trulicity?(don't want increase metform 06/10/24 10:53 Consult to Wound Care Routine Reason for consultation: hidradenitis suppurativa b/l breast/thigh r/o infection 06/13/24 14:58 Consult to Hospitalist Routine Comment: Consulting Provider: Hospitalist Reason For Exam: r/o cellulitis left breast DS: Diagnosis Discharge Diagnosis (1) Bipolar disorder: Status: Acute (2) Schizoaffective disorder, bipolar type: Status: Acute DS: Medications Discharge Medications Home Medications: Previous Rx's ?Medication ?Instructions ?Recorded atorvastatin 20 mg tablet 20 mg PO BEDTIME #90 tabs 01/31/24 divalproex 125 mg capsule,delayed 500 mg (4 x 125 mg) PO BID #240 02/14/24 release sprinkle (Depakote caps Sprinkles) furosemide 40 mg tablet 40 mg PO DAILY #90 tabs 04/14/24 atenolol 50 mg tablet 50 mg PO DAILY #90 tabs 04/26/24 apixaban 5 mg tablet (Eliquis) 5 mg PO BID #60 tabs 05/27/24 metformin 500 mg tablet,extended 500 mg PO DAILY #90 tabs 05/27/24 release 24 hr clozapine 100 mg tablet 100 mg PO BEDTIME 30 days #30 tabs 06/19/24 clozapine 50 mg tablet 50 mg PO BEDTIME 30 days #30 tabs 06/19/24 divalproex 500 mg tablet,extended 1,500 mg (3 x 500 mg) PO BEDTIME 06/19/24 release 24 hr 30 days #90 tabs doxycycline monohydrate 100 mg 100 mg PO BID 2 days #4 caps 06/19/24 capsule lorazepam 1 mg tablet 1 mg PO BEDTIME PRN 06/19/24 insomnia,anxiety,agitation 30 days #30 tabs metformin 1,000 mg tablet 1,000 mg PO BIDWM 30 days #60 tabs 06/19/24 nystatin 100,000 unit/gram topical 1 appl topical BID 30 days #15 06/19/24 cream grams trazodone 50 mg tablet 50 mg PO BEDTIME PRN insomnia 30 06/19/24 days #30 tabs Mental Status Exam Mental Status Exam Narrative: Pt is alert and oriented; behavior is cooperative, friendly and calm and overall organized; patient is not in distress; dressed in casual attire, a little unkempt but overall adequate grooming and hygiene; mood is described as good and affect congruent; eye contact appropriate; Speech is normal rate, volume and prosody and not pressured; no psychomotor agitation/retardation present; thought process is overall organized, goal-directed and linear; Thought content is on tx, discharge; otherwise mostly pertinent to relevant topics, though at times may express a delusional thought; denies any SI/HI. There is no evidence of perceptual disturbance. Patients insight and judgment at baseline and adequate. Data Data Completed and Pending Completed studies during hospitalization [Text1]: 06/13/24 06/13/24 06/14/24 08:35 08:39 08:18 Absolute Neuts (auto) Hold Purple Top Creatinine 0.60 Estim Creat Clear Calc 258.9 Estimated GFR > 60 POC Glucose 113 105 Total Bilirubin Direct Bilirubin AST ALT Alkaline Phosphatase Ammonia Total Protein Albumin Valproic Acid 06/15/24 06/15/24 06/16/24 09:06 09:06 08:27 Absolute Neuts (auto) Cancelled 5.0 Hold Purple Top Creatinine Estim Creat Clear Calc Estimated GFR POC Glucose 115 Total Bilirubin Direct Bilirubin AST ALT Alkaline Phosphatase Ammonia Total Protein Albumin Valproic Acid 06/16/24 06/17/24 06/17/24 13:37 07:33 08:36 Absolute Neuts (auto) 5.0 Hold Purple Top Creatinine 0.58 Estim Creat Clear Calc 261.8 Estimated GFR > 60 POC Glucose 125 H Total Bilirubin 0.4 Direct Bilirubin 0.1 AST 17 ALT 25 Alkaline Phosphatase 76 Ammonia 53 Total Protein 7.3 Albumin 4.2 Valproic Acid 35.7 L 06/18/24 08:28 Absolute Neuts (auto) Hold Purple Top SEE NOTE Creatinine Estim Creat Clear Calc Estimated GFR POC Glucose Total Bilirubin Direct Bilirubin AST ALT Alkaline Phosphatase Ammonia Total Protein Albumin Valproic Acid 53.5 DS: Summary Hospital Course Hospital Course: HPI: 33 year old with a history of schizoaffective disorder bipolar type, history of DVT on Eliquis, VALERI, who presents with brendon in the face of having stopped taking her medications; VNA was reduced to once a week (was every day) which led to non adherence; family reports that patient started to decompensate around around 05/29. She is transferred from [facility] ED to [facility] unit for psychiatric treatment. She called 911 for unclear reasons. In the ED she was seen by the behavioral health team and found to be psychotic and manic and in need of inpatient psychiatric care. Patient is disorganized during the meeting today. She says Cheynene called the police. She is K9 trained dog. She used the landline. I was scared of my dad. Patient is tangential and her thought process is derailed. 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 toney... I am [employer]. What's your favorite food? I have a connection with Ricco Mcpherson. Do you want VIP tickets? Do you like the Patriots?.... Patient is disinhibited. Prior to the meeting she is seen in the hallway and her gown is open in the back. She is disheveled and malodorous. Patient is noted to be hyperverbal and intrusive. Inappropriate sexual remarks. Hospital course: Patient manic, delusional, hypersexual on admission which is her typical presentation for her manic episodes. She agreed to restart medications including Depakote and clozapine. Patient remained manic, hyper focused on sexual comments made throughout the day to various staff, saying she is , making bizarre or nonsensical or silly references, laughing uncontrollably and inappropriately. As medications were titrated, patient slowly started to improve and brendon down; sexualized comments started to wane and the patient would continue to make nonsensical or silly references it was less so. Patient agreed to increase metformin. Patient has Hidradenitis Supperativa in breast area and seen by hospitalist who started her on antibiotic for burgeoning cellulitis; chronic fungal infection treated with nystatin. During the admission patient got her menses, 1st time in in years which patient found challenging but coped through it. Team discussed case with father, with whom she lives and all agree to increase VNA services back to 3 to 4 times a week. Patient continued to improve, was sleeping well at night and became much more logical and linear and organized; delusional comments resolved and patient had returned to baseline. Family agreed she was ready to come home. Patient agreed that she needs medications and said she would continue taking them. She was looking forward to discharge. While patient remains vulnerable to medication non adherence and decompensation, this is a chronic issue that seems to be improving with increased VNA services. She is not in imminent risk for harm to self or others and appropriate to return to the community for discharge. Time spent discussing smoking cessation with patient: 3 to 10 minutes Status at Discharge Functional status at discharge: independent ambulation Overall status at discharge: patient is back to baseline Time Spent with Patient Time attestation: Total time managing care of this patient today _40___ minutes. Time spent: Greater than 30 minutes Specific discharge activities: Met with patient; discussed with team; prescriptions, charting Discharge Plan Discharge Anticipated Discharge Date/Time: 06/19/24 11:00 Patient Disposition: Home, Self-Care Discharge Diagnosis: Schizoaffective disorder, bipolar type, recurrent severe most recent episode manic in full remission Referrals: [facility] Psychiatry with Dr. Conklin [Other] - 07/05/24 12:40 pm [facility] [Other] - 1 Week (Maribel is on a leave of absence, at this time I am unsure if there will be a replacement for her. Her outpatient team is looking into this. ) [facility] [Other] - 06/21/24 11:30 am (They have scheduled you for two days a week starting this . Please remind them that tending to your hygiene and doing the laundry are priorities each time them come.) Clozaril Weekly Labs [Other] - 06/27/24 (Present to the lab weekly, on Tuesday', to have your labs drawn to continue Clozapine. Bring printed lab orders with you the first time you go and at your psychiatrist appointment, inform Dr. Conklin where you are getting your labs drawn, so he can continue lab orders from there. ) [facility] Peer Support Services [Other] - 3-5 Days (Patricia from [facility] will be referring you for peer support services. This service will be a one on one weekly support. If they have not contacted you within a few days post discharge follow up with your [facility] immigration case worker Tita at the above number. ) [facility] [Other] - 3-5 Days ([facility] will work with you to begin to schedule in the STAR day program. Be sure to ask them if you can ease in with just a few days a week. If they don't reach out to you in a few days post discharge please reach out to your [facility] immigration case worker Tita at the number above. ) Physician,Unknown J [Primary Care Provider] - 1 Week Discharge Medications: New doxycycline monohydrate 100 mg Capsule 100 mg PO BID 2 Days Qty: 4 0RF divalproex 500 mg Tablet Extended Release 24 Hr 1,500 mg PO BEDTIME 30 Days Qty: 90 0RF metformin 1,000 mg Tablet 1,000 mg PO BIDWM 30 Days Qty: 60 0RF nystatin 100,000 unit/gram Cream 1 appl topical BID 30 Days Qty: 15 0RF Protocol: Apply to: Apply to: under breasts/skin folds in area of rash Rx Instructions: apply to affected areas on torso ammonium lactate 12 % Lotion 1 appl topical BID 30 Days Qty: 225 0RF Protocol: Apply to: Apply to: ble Rx Instructions: apply to both legs Continued furosemide 40 mg tablet 40 mg PO DAILY Qty: 90 0RF atenolol 50 mg tablet 50 mg PO DAILY Qty: 90 1RF Eliquis 5 mg tablet 5 mg PO BID Qty: 60 0RF clozapine 100 mg tablet 100 mg PO BEDTIME 30 Days Qty: 30 0RF Rx Instructions: take with 50mg tab lorazepam 1 mg Tablet 1 mg PO BEDTIME PRN (Reason: insomnia,anxiety,agitation) 30 Days Qty: 30 0RF atorvastatin 20 mg tablet 20 mg PO BEDTIME Qty: 90 1RF Changed trazodone 50 mg Tablet 50 mg PO BEDTIME PRN (Reason: insomnia) 30 Days Qty: 30 0RF clozapine 50 mg tablet 50 mg PO BEDTIME 30 Days Qty: 30 0RF Rx Instructions: take with 100mg tab Discontinued metformin 500 mg tablet extended release 24 hr 500 mg PO DAILY Qty: 90 0RF divalproex [Depakote Sprinkles] 125 mg capsule, delayed rel sprinkle 500 mg PO BID Qty: 240 0RF Discharge Orders: Discharge Order (Routine); Ordered 06/19/24 Ordered By: Jose D Mistry Diet: diabetic diet if willing Activity on Discharge: As tolerated Stand Alone Forms: Patient Portal Discharge page, Community Support Print Language: Brazilian Activity Restrictions/Additional Instructions: Topical Skin Care Recommendations: Bilateral Breast, ABD skin fold and Groin - Encourage patient to shower daily. Cleanse with Hibiclens (or antiseptic wash or Tea Tree Oil containing wash) to affected areas. Allow to dry - keep skin fold open to air to allow for tissue to completely dry. Apply Interdry Sheets to aid in translocating moisture. Tuck Interdry AG Sheet into skin fold to wick and translocate moisture away from skin fold.? Be sure to leave at least 2 inch of fabric exposed outside of skin fold.? May use for up to 5 days. Change when soiled. Apply warm compresses 2-3 times daily while lesion appears active. May apply barrier cream to open areas at bases abdominal skin fold. Bilateral Lower Legs - Apply lotion daily to keep skin supple. Elevate lower legs and apply compression stockings (Edemawear). Edema Wear compression garments should be applied first thing in the morning and may be removed at night when legs are elevated in bed.? Hand wash and hang dry.? Stockings should be worn from the base of the toes to just below the knee.? Fold over at end to prevent rolling.? They are disposable after about 2 weeks or regular use. Care Plan Goals: Maintain mood and safe behaviors Take medications as prescribed Continue to pursue sobriety Practice coping skills Continue with outpatient providers and reach out to them as needed Health Concerns: Mood stability and behaviors History of DVT; Factor 5 Leidin Vanessa infection (continue with Nystatin) Hidradenitis Supperativa Cellulitis (complete antibiotic) VALERI Plan of Treatment: Follow up with your PCP, psychiatric provider and other outpatient providers regarding above concerns Take medications as prescribed Assessment: Risk assessment at time of discharge:? Patient was interviewed prior to discharge and found to be fully oriented and without any SI or HI. Patient has improved insight and judgment and wants to continue treatment. Patient is not in imminent risk of harm to self or others and has a safety plan that includes presenting to the closest ER or calling 911 if feeling unsafe.? Patient has been observed closely by nursing and unit staff throughout admission; patient has not engaged in any behaviors that suggest dangerousness to self or others and has demonstrated appropriate behaviors and impulse control
[2024-06-19 10:15] VITALS: BP 131/67
[2024-06-19] MEDS: Furosemide 40 MG TABLET PO (10:15)
[2024-06-19] MEDS: atenoloL 50 MG TABLET PO (10:16)
[2024-06-19] MEDS: metFORMIN HCl 1,000 MG TABLET 1000 MG PO (10:16)
[2024-06-19] MEDS: Apixaban 5 MG TABLET PO (10:16)
[2024-06-19] MEDS: Doxycycline Monohydrate 100 MG CAPSULE PO (10:16)
== END 2024-06-19 11:25 | disposition home or self-care (01) | DRG 750 ==
PROVIDERS: Physician Assistant; Psychiatry & Neurology Psychiatry; Student in an Organized Health Care Education/Training Program; Admitting Provider Psychiatry & Neurology Psychiatry; Visit Provider Psychiatry & Neurology Psychiatry
DX: F25.0 Schizoaffective disorder, bipolar type (principal); Z68.44 Body mass index [BMI] 60.0-69.9, adult; E11.9 Type 2 diabetes mellitus without complications; D68.51 Activated protein C resistance; B37.2 Candidiasis of skin and nail; I87.2 Venous insufficiency (chronic) (peripheral); J45.909 Unspecified asthma, uncomplicated; L73.2 Hidradenitis suppurativa; E66.01 Morbid (severe) obesity due to excess calories; Z79.01 Long term (current) use of anticoagulants; Z79.84 Long term (current) use of oral hypoglycemic drugs; Z79.899 Other long term (current) drug therapy
CPT/HCPCS: 36415; 80076; 80164; 82140; 82565; 82947; 85025; 85048; 99499

== ENCOUNTER → 2024-06-02 19:27 | Outpatient (BNV) | payer OTHER, SELFPAY | PROVIDERS: Admitting Provider Psychiatry & Neurology Psychiatry; Visit Provider Physician Assistant | DX: Z02.2 Encounter for examination for admission to residential institution (principal) | CPT/HCPCS: 99221; 99429; 99499 ==

== ENCOUNTER → 2024-06-02 19:27 | Outpatient (BNV) | payer OTHER, SELFPAY | PROVIDERS: Admitting Provider Psychiatry & Neurology Psychiatry; Visit Provider Psychiatry & Neurology Psychiatry | DX: F25.0 Schizoaffective disorder, bipolar type (principal) | CPT/HCPCS: 99232 ==

== ENCOUNTER → 2024-06-02 19:27 | Outpatient (BNV) | payer OTHER, SELFPAY | PROVIDERS: Admitting Provider Psychiatry & Neurology Psychiatry; Visit Provider Psychiatry & Neurology Psychiatry | DX: F25.0 Schizoaffective disorder, bipolar type (principal) | CPT/HCPCS: 90792; 99231; 99232; 99239 ==

== ENCOUNTER 2024-09-27 08:18 | Outpatient (AMB) | payer OTHER, SELFPAY ==
--- OUTSIDE RECORDS SUMMARY | 2024-09-27 08:32 | XMS_ITS | Continuity of Care Document ---
Author Organization [facility] Address [address] [place] [address] Care Team Providers Care Scanner Supervisor Name Role Phone Franklyn MONTOYA, Asma Primary Care Physician [phone] Encounter [facility] Date(s): 08/10/24 - 09/09/[address] [address] Encounter Type: Triage Allergies, Adverse Reactions, Alerts Substance Criticality Severity Reaction Reaction Severity Status Mold Hives Active Kiwi Hives Active Immunizations Given and Recorded Vaccine Date Status Refusal Reason SARS-CoV-2 (COVID-19) mRNA BNT-162b2 vac 01/17/21 Recorded SARS-CoV-2 (COVID-19) mRNA BNT-162b2 vac 12/27/20 Recorded tetanus/diphtheria/pertussis, acel(Tdap) 04/29/17 Recorded influenza virus vaccine, inactivated 06/15/16 Robert rded influenza virus vaccine, inactivated 04/25/15 Robert rded Meningococcal Conjugate Vaccine 12/20/06 Recorded Meningococcal Conjugate Vaccine 12/04/99 Recorded diphtheria/tetanus/pertussis, acel(DTaP) 12/20/06 Recorded diphtheria/tetanus/pertussis, acel(DTaP) 09/12/96 Recorded diphtheria/tetanus/pertussis, acel(DTaP) 02/06/93 Recorded diphtheria/tetanus/pertussis, acel(DTaP) 02/07/92 Recorded diphtheria/tetanus/pertussis, acel(DTaP) 91 Recorded diphtheria/tetanus/pertussis, acel(DTaP) 91 Recorded tetanus-diphtheria toxoids (Td) 10/13/01 Recorded hepatitis B pediatric vaccine 04/18/97 Recorded hepatitis B pediatric vaccine 10/16/96 Recorded hepatitis B pediatric vaccine 09/12/96 Recorded Poliovirus Vaccine, Inactivated 02/06/97 Recorded Poliovirus Vaccine, Inactivated 02/06/93 Recorded Poliovirus Vaccine, Inactivated 91 Recorded Poliovirus Vaccine, Inactivated 91 Recorded Measles/Mumps/Rubella Virus Vaccine 10/16/96 Recor ded Measles/Mumps/Rubella Virus Vaccine 11/06/92 Recor ded Varicella Virus Vaccine 08/08/93 Recorded Diphth/haemophilus/pertussis/tet/polio 11/06/92 Re corded Diphth/haemophilus/pertussis/tet/polio 02/07/92 Re corded Medications albuterol CFC free 90 mcg/inh inhalation aerosol 2, puffs, Inhalation, 4 times a day, PRN, # 1 each, Refills 0, Tot. Refills 0, Maintenance, 12/29/1711:08:44 PM EDT, Print Requisition Start Date: 12/28/16 Status: Ordered Quantity: 1.0 Unit: each Repeat number: 1 atenolol 50 mg oral tablet 50 mg, 1, tablet, By Mouth, Daily, # 30 tablet, Refills 0, Tot. Refills 0, Maintenance, 01/22/23 8:46:00 AM EDT, Route to Pharmacy Electronically, [facility]/pharmacy #[id number], Partial fill upon patient requestif the prescription is for a schedule II opioid drug., 175.26, cm, 01/21/23 8:06:00 EDT, Height, 168.7, kg, 01/07/23 13:47:00 EDT, Dry Weight Start Date: 01/22/23 Status: Ordered Quantity: 30.0 Unit: tablet Repeat number: 1 atorvastatin 20 mg oral tablet 1 tablet = 20 mg, By Mouth, Daily, # 30 tablet, 0 Refills, Maintenance, 01/22/23 8:46:00 AM EDT, Tablet, [facility]/pharmacy #[id number], Partial fill upon patient request if the prescription is for a schedule II opioid drug., 175.26, cm, 01/21/23 8:06:00 EDT, Height, 168.7, kg, 01/07/23 13:47:00 EDT, Dry Weight Start Date: 01/22/23 Status: Ordered Quantity: 30.0 Unit: tablet Repeat number: 1 Eliquis 5 mg oral tablet 1 tablet = 5 mg, By Mouth, 2 times a day, # 60 tablet, 5 Refills, Maintenance, 08/04/24 2:33:00 PM EST, Tablet, Partial fill upon patient request if the prescription is for a schedule II opioid drug. Start Date: 08/04/24 Status: Ordered Quantity: 60.0 Unit: tablet Repeat number: 1 Kuric 2% topical cream 1 application, Topically, Daily, Apply to rash areas on face, # 75 Gm, 0 Refills, Maintenance, 01/22/23 8:46:00 AM EDT, Cream, [facility]/pharmacy #[id number], Partial fill upon patient request if the prescriptionis for a schedule II opioid drug., 1 application Topically Daily,Instr:Apply to rash areas on face,175.26, cm, 01/21/23 8:06:00 EDT, Height, 168.7, kg, 01/07/23 13:47:00 EDT, Dry Weight Start Date: 01/22/23 Status: Ordered Quantity: 75.0 Unit: g Repeat number: 1 LORazepam 2 mg oral tablet 1 tablet = 2 mg, By Mouth, 3 times a day, Do not stop taking this medication without consulting with your provider, # 90 tablet, 0 Refills, Maintenance, 01/21/23 4:49:00 PM EDT, Tablet, [id number], Partial fill upon patient request if the prescription is for a schedule II opioid drug., 175.26, cm, 01/21/23 8:06:00 EDT, Height, 168.7, kg, 01/07/23 13:47:00 EDT, Dry Weight Start Date: 01/21/23 Stop Date: 02/20/23 Status: Ordered Quantity: 90.0 Unit: tablet Repeat number: 1 melatonin 3 mg oral tablet = 6 mg, By Mouth, Daily at bedtime, PRN Sleep, # 30 tablet, 0 Refills, Maintenance, 01/22/23 8:46:00AM EDT, Tablet, [facility]/pharmacy #[id number], Partial fill upon patient request if the prescription is for a schedule II opioid drug., 175.26, cm, 01/21/23 8:06:00 EDT, Height, 168.7, kg, 01/07/23 13:47:00 EDT, Dry Weight Start Date: 01/22/23 Status: Ordered Quantity: 30.0 Unit: tablet Repeat number: 1 metFORMIN 500 mg oral tablet 1 each = 500 mg, By Mouth, Daily, # 30 tablet, 0 Refills, Maintenance, 01/22/23 8:46:00 AM EDT, Tablet, [facility]/pharmacy #[id number], Partial fill upon patient request if the prescription is for a schedule II opioid drug., 175.26, cm, 01/21/23 8:06:00 EDT, Height, 168.7, kg, 01/07/23 13:47:00 EDT, Dry Weight Start Date: 01/22/23 Status: Ordered Quantity: 30.0 Unit: tablet Repeat number: 1 miconazole 2% topical ointment See Instructions, Topically 2 times a day to rashes on abdomen and perineum area, # 142 Gm, 0 Refills, Maintenance, 01/22/23 8:46:00 AM EDT, Ointment, [facility]/pharmacy #[id number], Partial fill upon patient request if the prescription is for a schedule II opioid drug., Topically 2 times a day to rashes on abdomen and perineum area, 175.26, cm, 01/21/23 8:06:00 EDT, Height, 168.7, kg, 01/07/23 13:47:00 EDT, Dry Weight Start Date: 01/22/23 Status: Ordered Quantity: 142.0 Unit: g Repeat number: 1 Indication: Candidiasis of skin and nail olanzapine 10 mg oral tablet 10 mg, 1, tablet, By Mouth, Daily, PRN, # 30 tablet, Refills 0, Tot. Refills 0, Maintenance, Agitation, 01/22/23 8:46:00 AM EDT, Route to Pharmacy Electronically, [facility]/pharmacy #[id number], Partial fill uponpatient request if the prescription is for a schedule II opioid drug., 175.26, cm, 01/21/23 8:06:00EDT, Height, 168.7, kg, 01/07/23 13:47:00 EDT, Dry Weight Start Date: 01/22/23 Status: Ordered Quantity: 30.0 Unit: tablet Repeat number: 1 Provera 10 mg oral tablet 10 mg, 1, tablet, By Mouth, 3 times a day, Take 3 tablets a day for one week, take 2 tablets a day for the next week, and then take one tablet daily continuously, # 90 tablet, Refills 0, Tot. Refills0, Maintenance, 06/30/24 10:09:00 AM EDT, Route to Pharmacy Electronically, [facility]/pharmacy #[id number], Partial fill upon patient request if the prescription is for a schedule II opioid drug., 175.26, cm, 06/29/24 18:00:00 EDT, Height, 198.6, kg, 06/29/24 17:53:00 EDT, Dry Weight Start Date: 06/30/24 Status: Ordered Quantity: 90.0 Unit: tablet Repeat number: 1 Provera 10 mg oral tablet 20 mg, 2, tablet, By Mouth, 2 times a day, # 360 tablet, Refills 0, Tot. Refills 0, Maintenance, 08/15/24 11:10:00 AM EST, Route to Pharmacy Electronically, [facility]/pharmacy #[id number], Partial fill upon patient request if the prescription is for a schedule II opioid drug., 175.26, cm, 08/15/24 10:35:00 EST, Height, 200.5, kg, 08/04/24 14:22:00 EST, Dry Weight Start Date: 08/15/24 Status: Ordered Quantity: 360.0 Unit: tablet Repeat number: 1 Provera 5 mg oral tablet 2 tablet = 10 mg, By Mouth, Daily, use as directed, # 20 tablet, 0 Refills, Maintenance, 08/10/21 1:34:00 PM EST, [facility]/pharmacy #[id number], 174, cm, 05/21/20 19:19:00 EDT, Height Start Date: 08/10/21 Stop Date: 08/20/21 Status: Ordered Quantity: 20.0 Unit: tablet Repeat number: 1 Problem List Condition Confirmation Course Effective Dates Status H ealth Status Informant HTN (hypertension), benign Confirmed Active Morbid obesity with BMI of 50.0-59.9, adult Confirmed Active Environmental allergies Confirmed Active Transaminitis Confirmed Active Factor V Leiden Confirmed Active 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 Confirmed Active Dyslipidemia Confirmed Active Menometrorrhagia Confirmed Active Metabolic syndrome X Confirmed Active Oral allergy syndrome Confirmed Active PCOS (polycystic ovarian syndrome) Confirmed Active Pompholyx Confirmed Active Severe obesity Confirmed Active Mild persistent allergic asthma without complication Confirmed Active Social History Social History Type Response Smoking Status Former smoker, quit more than 30 days ago entered on: 01/12/23 Sex Sex Representation Female (finding) Patient Care team information Care Team Personnel Name: Kiera Dupont MD Position: [facility] LEGAL RESEARCHER MD Member Role: Lifetime LEGAL RESEARCHER Physician Address: [address] [place] [address], [address] [place] [address]- Telecom: Name: Taylor Adorno RN Position: S RN Member Role: Primary Care Nurse Name: Jose Estes MD Position: Reference Physician Member Role: PCP Address: [address], [place] [address] Telecom: Name: Milly Vaz RN Position: [facility] RN Member Role: Primary Care Nurse Name: Kayla Mancera Position: S RN Member Role: Primary Care Nurse Name: Deb Campbell RN Position: S RN Member Role: Primary Care Nurse Name: Cris Harrison RN Position: S RN Member Role: Primary Care Nurse Name: Myra Mckenzie RN Position: S RN Member Role: Primary Care Nurse Care Team Related Persons Name: KASSANDRA WILHELM Name: JESÚS WILHELM Insurance Providers Guarantor name: JAMES CHOCO Health Plan Information #: 1 Payer: [employer] Member Number: NA Policy Number: NA Group Number: NA
--- NOTE | 2024-09-27 09:29 | A.OFFPC_ITS ---
Intake Visit Reasons: Meds f/u Telehealth [phone] Allergies kiwi [KIWI] Allergy (Mild, Verified 09/27/24 09:44) HIVES mold [MOLD EXTRACTS*] Allergy (Mild, Verified 09/27/24 09:44) HIVES Medication List - Last Reconciled 09/27/24 by Jose Estes MD ammonium lactate 12% 1 appl See Protocol topical BID 30 days apixaban (Eliquis) 5 mg PO BID atenolol 50 mg PO DAILY atorvastatin 20 mg PO BEDTIME clozapine 100 mg PO BEDTIME 30 days clozapine 50 mg PO BEDTIME 30 days divalproex ER 1,500 mg (3 x 500 mg) PO BEDTIME 30 days furosemide 40 mg PO DAILY lorazepam 1 mg PO BEDTIME PRN 30 days metformin 1,000 mg PO BIDWM 30 days nystatin 1 appl See Protocol topical BID 30 days trazodone 50 mg PO BEDTIME PRN 30 days Tobacco use date assessed: 09/27/24 Dental Screening Dental Screen Date: 09/27/24 Did you have a dental visit in the last 12 months?: Yes Did you have a dental problem in the last 6 months where you did not have access to dental care?: No Was dental information given to patient?: Patient has dentist HPI Meds f/u Telehealth [phone] HPI Details Telemed f/u Patient was doing well with Metformin 1G bid, but her sugars have gone up again in 300 - 400 she was on trulicity before which i have sent for her her father was with her and i spoke to him as well they will start checking sugars fasting if above 200 inspite of trulicty, they will start Glipizide - metformine 5-500 once tab in am labs are needed order placed we will set up another meeting in 7 days [facility] Medical History Bipolar disorder Factor 5 Leiden mutation, heterozygous Venous stasis Chronic cellulitis Fever Fever of unknown origin Foot swelling Hidradenitis suppurativa Schizoaffective disorder, bipolar type Hypertension, essential Uncontrolled type 2 diabetes mellitus with hyperglycemia Leg edema Obesity, morbid Asthma Seasonal asthma Surgical History History of ovarian cyst History of wisdom tooth extraction Family History Father HTN (hypertension) Diabetes mellitus Mother Afib Maternal Grandfather No problems noted. Maternal Grandmother No problems noted. Paternal Grandmother Breast cancer Paternal Grandfather No problems noted. Sister No problems noted. Social History Household Members: Family Household Members Other:: father [phone] Housing: House Do you presently have visiting nurse or other home services: Yes Unable to assess alcohol history related to: Unknown Alcohol intake: never Comment: 1:1 Patient Tobacco Use Status: Never used Tobacco Tobacco use type: Cigarette Years Smoked: 3 yrs e-Cigarette/Vaping Use: Never Used Second Hand Smoke Exposure: No service: No Current occupational status: employed Sexual orientation: Straight/Heterosexual Cognitive needs: No Hearing needs: No Vision needs: Yes Questionnaire PHQ-9 Over the last 2 weeks, how often have you been bothered by any of the following problems? 92469 - PHQ-9 Billing: Patient declined-do not bill Source: Developed by Drs. Ricco Gunter, Lashonda Munroe, Nate Galvin and colleagues, with an educational giovana from [employer]. Thrive Questionnaire Date Thrive assessed: 09/27/24 I am a: Patient What is your living situation today?: I choose not to answer this question Within the past 12 months, did the food you bought not last and you didn't have the money to get more?: I choose not to answer this question Within the past 12 months, did you worry whether your food would run out before you got money to buy more?: I choose not to answer this question Do you have trouble paying for medicines?: I choose not to answer this question Do you have trouble getting transportation to medical appointments?: I choose not to answer this question Do you have trouble paying your heating and electricity bill?: I choose not to answer this question Do you have trouble taking care of your child, family member or friend?: I choose not to answer this question Do you have trouble with day-to-day activities such as bathing, preparing meals, shopping, managing finances, etc.?: I choose not to answer this question Are you currently unemployed and looking for a job?: I choose not to answer this question Are you interested in more education?: I choose not to answer this question Please select the resources that you would like help with: None Currently or been in a relationship where the following occur: I choose not to answer THRIVE Score: 0 AUDIT C Alcohol Use Questionnaire (AUDIT-C) 1. How often do you have a drink containing alcohol?: Never 3. How often do you have six or more drinks on one occasion?: Never Total Score: 0 Score Reviewed/Action Taken: Yes SOLE-7 AMB Questionnaire SOLE-7 Date SOLE - 7 assessed: 09/27/24 (patient declined) Source: Developed by Drs. Ricco Gunter, Lashonda Munroe, Nate Galvin and colleagues, with an educational giovana from [employer]. Review of Systems Const Denies chills and Denies fever(s) ENT Denies epistaxis and Denies nasal discharge Card Denies chest pain Resp Denies chest congestion, Denies cough and Denies hemoptysis GI Denies diarrhea and Denies nausea Skin/Breast Denies rash Neuro Reports no additional complaints Psych Reports no additional complaints Endo Reports no additional complaints Physical exam (Primary Care) Tobacco/Smoking Status: Tobacco use Status Tobacco use date assessed 09/27/24 09/27/24 09:47 Patient Tobacco Use Status Never used Tobacco 09/27/24 09:29 Tobacco use type Cigarette 09/27/24 09:29 e-Cigarette/Vaping Use Never Used 09/27/24 09:29 Thrive Assessment: Date of Thrive Assessment Date Thrive assessed 09/27/24 09/27/24 09:47 Currently or been in a relationship where the following occur: I choose not to answer Telehealth Telehealth [facility] Location of provider rendering services: practice address Location of patient: address on file Patient Identification confirmed using: Name, : Yes Telehealth method: voice only Patient verbally consented to treatment: Yes Patient verbally consented to billing insurance company: Yes Patient informed of any privacy concerns related to visit: Yes Minutes spent on Phone/Video with Pt.: 14 Coding Level of Care Code Tele Est Pt Level 3 (22490) Diagnoses Uncontrolled type 2 diabetes mellitus with hyperglycemia E11.65 Assessment & Plan Assessment & Plan (1) Uncontrolled type 2 diabetes mellitus with hyperglycemia: Code(s): E11.65 - Type 2 diabetes mellitus with hyperglycemia Category: Medical Plan Telemed f/u Patient was doing well with Metformin 1G bid, but her sugars have gone up again in 300 - 400 she was on trulicity before which i have sent for her her father was with her and i spoke to him as well they will start checking sugars fasting if above 200 inspite of trulicty, they will start Glipizide - metformine 5-500 once tab in am labs are needed order placed we will set up another meeting in 7 days Orders: Orders Complete Blood Count Auto Diff Today E11.65 - Type 2 diabetes mellitus with hyperglycemia Comprehensive Met. Panel Today E11.65 - Type 2 diabetes mellitus with hyperglycemia LDL Cholesterol Direct Today E11.65 - Type 2 diabetes mellitus with hyperglycemia TSH reflex Free T4 Today E11.65 - Type 2 diabetes mellitus with hyperglycemia Hemoglobin A1c Today E11.65 - Type 2 diabetes mellitus with hyperglycemia Microalbumin, Random (w Creat) Today E11.65 - Type 2 diabetes mellitus with hyperglycemia Medications: New glipizide-metformin 5-500 mg 1 tab PO DAILY 30 tabs 0RF dulaglutide (Trulicity) 1.5 mg (0.5 mL) subcut QWEEK 30 days 2.5 mL 0RF
== END 2024-09-27 10:01 | disposition home or self-care (01) ==
LOC: HO.HMCC 08:18
PROVIDERS: PCP Internal Medicine; Visit Provider Internal Medicine
DX: E11.65 Type 2 diabetes mellitus with hyperglycemia (principal)

== ENCOUNTER → 2024-09-27 08:18 | Outpatient (BNVA) | payer OTHER, SELFPAY | PROVIDERS: PCP Internal Medicine; Visit Provider Internal Medicine ==

== ENCOUNTER → 2024-10-04 08:13 | Outpatient (BNVA) | payer OTHER, SELFPAY | PROVIDERS: PCP Internal Medicine; Visit Provider Internal Medicine ==

== ENCOUNTER 2024-10-11 08:10 | Outpatient (AMB) | payer OTHER, SELFPAY ==
--- OUTSIDE RECORDS SUMMARY | 2024-10-11 08:12 | XMS_ITS | Clinical Summary ---
Author Organization [facility] Address [address] [place] [address] Care Team Providers Care Data Center Technician Name Role Phone Unavailable Primary Care Provider Unavailabl e Allergies Active Allergy Reactions Criticality Noted Date Comments Kiwi Hives 04/29/2016 Molds & Smuts Hives 04/29/2016 Medications Medication Sig Dispensed Refills Start Date End Date Status guaiFENesin (MUCINEX) 600 MG 12 hr tablet Take 1,200 mg by mouth 2 (two) times a day. 0 Active ondansetron (ZOFRAN) 4 MG tablet Take 1 tablet (4 mg total) by mouth every 8 (eight) hours as needed for nausea. 12 tablet 0 04/29/2016 Active Social History Tobacco Use Types Packs/Day Years Used Date Smoking Tobacco: Never Alcohol Use Standard Drinks/Week Comments No 0 (1 standard drink = 0.6 oz pur e alcohol) Sex and Gender Information Value Date Recorded Sex Assigned at Not on file Gender Identity Not on file Sexual Orientation Not on file Last Filed Vital Signs Vital Sign Reading Time Taken Comments Blood Pressure 164/68 04/29/2016 11:06 AM EDT Pulse 88 04/29/2016 11:06 AM EDT Temperature 37.2 ??C (98.9 ??F) 04/29/2016 11:06 AM E DT Respiratory Rate 18 04/29/2016 11:06 AM EDT Oxygen Saturation 98% 04/29/2016 11:06 AM EDT Inhaled Oxygen Concentration - - Weight 167.8 kg (370 lb) 04/29/2016 8:10 AM EDT Height 172.7 cm (5' 8 ) 04/29/2016 8:10 AM EDT Body Mass Index 56.26 04/29/2016 8:10 AM EDT Plan of Treatment Health Maintenance Due Date Last Done Comments Hepatitis B Vaccines (1 of 3 - 3-dose series) 1991 Hepatitis C Screening 1991 COVID-19 Vaccine (#1) 02/07/1992 Depression Screening 2003 Preventative Health Evaluation 2009 DTap / Tdap / Td (1 - Tdap) 2010 Cervical Cancer Screening (P ap Smear) 2012 Influenza Vaccine (#1) 2024 Pneumococcal Vaccine Aged Out No long er eligible based on patient's age to complete this topic RSV Ped < 20 months Aged Out No longe r eligible based on patient's age to complete this topic Advance Directives For more information, please contact: [phone] Documents on File Type Date Recorded Patient Butt Trimmer Expl anation Advance Directive and Living Will 03/11/2016 11:14 AM
--- OUTSIDE RECORDS SUMMARY | 2024-10-11 08:12 | XMS_ITS | Data Portability ---
Author Organization [place] - [facility] Address [address] [place] [id number] Care Team Providers [employer] Guest Coordinator Name Role Phone SAM LADD Primary Care Provider [phone] Assessment Encounter Date Assessment Date Assessment LastModified by Organization Details LastModified Time 09/22/2021 09/22/2021 Overview/History : Pt with intermittent abd pain diarrhea, and vomiting that has been ongoing since she was Dx with COVID 2 weeks ago. She denies any current abd pain and states she has not had fever, vomiting, or diarrhea in the past several days. Exam: new pt to and to this provider Non-toxic afebrile morbidly obese 31yof in NAD. Resp unlabored, lungs clear, CV:RRR. Obese soft, non-tender, abd. BS present in all 4 quads. No palpable masses however this is difficult due to pt body habitus. DDx considered, but not limited to: VIral gastroenteritis Post-acute COVID Diverticulitis Work up/Results: HPI and PE most suggestive of post-acute COVID and viral gastroenteritis Plan/Discussion: Zofran PRN N/V so that she can increase solid foods. COntinue with Oral hydration. F/u for worsening symptoms. Proper Personal Protective Equipment (PPE), including gloves, eye protection, N95 mask, gown were donned and doffed appropriately and all equipment cleaned using approved technique with germicidal disposable wipes prior to and after care of this patient according to [facility]'s infection prevention protocols. Time On Scene with Patient: 00:35:44 [email or web address] Not available 09/22/2021 11:24:55 Plan of Treatment Reminders Order Date Submit Date Provider Last Modified By Organization Details Last Modified Time Details Appointments None recorded. Lab None recorded. Referral None recorded. Procedures None recorded. Surgeries None recorded. Imaging None recorded. Medication Orders ondansetron 8 mg disintegrat ing tablet 2021 022 [facility]/Pharmacy #[id number], [phone] [place], [address], 11:27:00 Patient TargetsNo targets recorded. Patient Instructions Encounter Date Encounter Id Patient Instructions Last Modified By Organization Details Last Modified Time 09/22/2021 [id number] gastroenteritis: care instructions [email or web address] Not available 09/22/2021 11:26:22 Gastroenteritis: Care Instructions Your Care Instructions Gastroenteritis is an illness that may cause nausea, vomiting, and diarrhea. It is sometimes called stomach flu. It can be caused by bacteria or a virus. You will probably begin to feel better in 1 to 2 days. In the meantime, get plenty of rest and make sure you do not become dehydrated. Dehydration occurs when your body loses too much fluid. Follow-up care is a santiago part of your treatment and safety. Be sure to make and go to all appointments, and call your doctor if you are having problems. It's also a good idea to know your test results and keep a list of the medicines you take. How can you care for yourself at home? If your doctor prescribed antibiotics, take them as directed. Do not stop taking them just because you feel better. You need to take the full course of antibiotics. Drink plenty of fluids to prevent dehydration, enough so that your urine is light yellow or clear like water. Choose water and other caffeine-free clear liquids until you feel better. If you have kidney, heart, or liver disease and have to limit fluids, talk with your doctor before you increase your fluid intake. Drink fluids slowly, in frequent, small amounts, because drinking too much too fast can cause vomiting. Begin eating mild foods, such as dry toast, yogurt, applesauce, bananas, and rice. Avoid spicy, hot, or high-fat foods, and do not drink alcohol or caffeine for a day or two. Do not drink milk or eat ice cream until you are feeling better. How to prevent gastroenteritis Keep hot foods hot and cold foods cold. Do not eat meats, dressings, salads, or other foods that have been kept at room temperature for more than 2 hours. Use a thermometer to check your refrigerator. It should be between 34? ? ?F and 40? ? ?F. Defrost meats in the refrigerator or microwave, not on the kitchen counter. Keep your hands and your kitchen clean. Wash your hands, cutting boards, and countertops with hot soapy water frequently. Cook meat until it is well done. Do not eat raw eggs or uncooked sauces made with raw eggs. Do not take chances. If food looks or tastes spoiled, throw it out. When should you call for help? Call anytime you think you may need emergency care. For example, call if: You vomit blood or what looks like coffee grounds. You passed out (lost consciousness). You pass maroon or very bloody stools. Call your doctor now or seek immediate medical care if: You have severe belly pain. You have signs of needing more fluids. You have sunken eyes, a dry mouth, and pass only a little dark urine. You feel like you are going to faint. You have increased belly pain that does not go away in 1 to 2 days. You have new or increased nausea, or you are vomiting. You have a new or higher fever. Your stools are black and tarlike or have streaks of blood. Watch closely for changes in your health, and be sure to contact your doctor if: You are dizzy or lightheaded. You urinate less than usual, or your urine is dark yellow or brown. You do not feel better with each day that goes by. Care instructions adapted under license by [facility]. This care instruction is for use with your licensed healthcare professional. If you have questions about a medical condition or this instruction, always ask your healthcare professional. [employer] disclaims any warranty or liability for your use of this information. [email or web address] Not available 09/22/2021 11:26:02 Reason for Referral None Reported. Procedures Surgical History Date Name Laterality Status Provider Name and Address Organization Details Recorded Time excision of cyst of ovary completed Tolu Hurley NP [address], [place], [address], [place] - [facility] 09/22/2021 10:47:34 Imaging Results None recorded. Procedure Notes None recorded. Medical Equipment None Reported. Allergies No known drug allergies Medications Name Sig Start Date Stop Date Status Note LastModified by Organization Details LastModified Time amoxicillin 500 mg capsule 09/22 completed Not Available Not Available Not Available metformin 500 mg tablet active Not Available Not Available Not Available albuterol sulfate 0.63 mg/3 mL solution for nebulizatio n active Not Available Not Available Not Available prednisone 10 mg tablet active Not Available Not Available Not Available benztropine 0.5 mg tablet active Not Available Not Available Not Available haloperidol 5 mg tablet active Not Available Not Available Not Available albuterol sulfate 2.5 mg/3 mL (0.083 %) solution for nebulizatio n active Not Available Not Available Not Available azithromyci n 250 mg tablet 09/22 completed Not Available Not Available Not Available fluconazole 150 mg tablet active Not Available Not Available Not Available FreeStyle Lancets 28 gauge active Not Available Not Available Not Available prednisone 20 mg tablet active Not Available Not Available Not Available medroxyprog esterone 5 mg tablet active Not Available Not Available No t Available clonazepam 1 mg tablet active Not Available Not Available Not Available atenolol 50 mg-chlortha lidone 25 mg tablet active Not Available Not Available No t Available ondansetron 8 mg disintegrat ing tablet Place 1 tablet every 8 hours by transling ual route as needed. active Not Available Not Available No t Available valproic acid (as sodium salt) 250 mg/5 mL oral solution active Not Available Not Available Not Available benzonatate 100 mg capsule 09/22 completed Not Available Not Available Not Available trazodone 150 mg tablet active Not Available Not Available Not Available haloperidol 10 mg tablet active Not Available Not Available Not Available benztropine 1 mg tablet active Not Available Not Available Not Available haloperidol 2 mg tablet active Not Available Not Available Not Available amoxicillin 875 mg-potassiu m clavulanate 125 mg tablet 09/22 completed Not Available Not Available Not Available glipizide 5 mg-metformi n 500 mg tablet active Not Available Not Available Not Available aripiprazol e 5 mg tablet active Not Available Not Available Not Available Spiriva with HandiHaler 18 mcg and inhalation capsules active Not Available Not Available Not Available ProAir HFA 90 mcg/actuati on aerosol inhaler active Not Available Not Available Not Available Symbicort 160 mcg-4.5 mcg/actuati on HFA aerosol inhaler active Not Available Not Available Not Available FreeStyle Lite Meter kit active Not Available Not Available Not Available FreeStyle Lite Strips active Not Available Not Available Not Available Latuda 20 mg tablet active Not Available Not Available No t Available Vitals Date Recorded Oxygen saturation Oxygen saturation in Arterial blood by Pulse oximetry Heart rate Respiratory rate Body temperature Systolic blood pressure Provider Name and Address Organization Details Last Updated DateTime 2 98 % 98 % 78 /min 18 /min 97.2 [degF] 108 mm[Hg] Not Available [facility] 10:51:01 Social History Question Answer Notes LastModified by Organizat ion Details LastModified Time Tobacco Smoking Status Never Smoker Tolu Hurley, PHANI [address] [facility], [place], [address], [place] - [facility] 09/22/2021 10:47:49 Do You Have An Advance Directive? No [email or web address] Information not available 09/22/2021 What Is Your Level Of Alcohol Consumption? None [email or web address] Information not available 09/22/2021 What Is Your Code Status? Full Code [email or web address] Information not available 09/22/2021 Within The Past 12 Months, Has It Happened That The Food You Bought Just Didn't Last And You Didn't Have Money To Get More. No [email or web address] Information not available 09/22/2021 Within The Past 12 Months, Have You Worried That Your Food Would Run Out Before You Got Money To Buy More. No [email or web address] Information not available 09/22/2021 Fall Risk: Do You Feel Unsteady When Standing Or Walking? No [email or web address] Information not available 09/22/2021 Excessive Alcohol Or Drug Use No [email or web address] Information not available 09/22/2021 Does This Patient Have A PCP? Yes [email or web address] Information not available 09/22/2021 Do You Use Any Illicit Or Recreational Drugs? No [email or web address] Information not available 09/22/2021 Do You Or Have You Ever Used Any Other Forms Of Tobacco Or Nicotine? No [email or web address] Information not available 09/22/2021 Sex: Unknown Functional Status None recorded. Mental Status None recorded. Family History Relationship Description Onset Age of this Age Resolved Age Notes LastModified by Organization Details LastModified Time Father Hypertensive disorder [email or web address] Not available 2021 10:48:10 Medical History Condition Response Diabetes Y Coronary Artery Disease N CHF N Parkinson's Disease N Cancer N Dementia N Stroke N Asthma N COPD N Hypothyroidism N High Cholesterol N Rheumatoid Arthritis N Pulmonary Embolism N Hypertension Y Osteoporosis N A-fib N Kidney Disease N Gynecological HistoryNo gynecological history recorded. Obstetrics History GPAL:G 0 P 0 0 0 0 Past Encounters Encounter ID Performer Location Encounter Start Date Encounter Closed Date Diagnosis/Indication Diagnosis SNOMED-CT Code Diagnosis ICD10 Code Diagnosis Note [id number] Tolu Hurley NP [facility] [address] [place] [address] 09/22/2021 10:42:51 09/25/2021 13:00:14 Post-acute COVID-19 8365897560 U07.1 Viral gastroenteritis 11 4422030 A08.4 Health Concerns Section Related Observation LastModified by Organization Detai ls LastModified Time None Recorded Concern Status LastModified by Organization Details LastModified Time None Recorded Advance Directives Directive N: Payers Encounter Date Sequence Insurance Name Policy Number Policy Lugo Covered Member ID Lugo Member ID Guarantor Name 09/22/2021 1 [facility] NET PLAN (MEDICAID HMO) NICOLE Cantu [id number] Zeinab Cantu Notes Date Note Type Note Provider Name and Address Organization Details Recorded Time 09/22/2021 text/html Pt sttes she was Dx with COVID-19 2 weeks ago and has still hadsome nausea, vomiting and diarrhea with intermittent abd pain just prior to the diarrhea. She states she has not had any fever, melena, or hematochezia. States she has not had any vomiting, diarrhea, or abd pain in 2 days but is still having nausea when she tries to eat. Has not eaten solid foods in 1 week and only drinking cosmo brittaney. Tolu Hurley NP [address], [place], [address], [place] - [facility] 09/22/2021 11:27:05 OBGyn Episode No OBEpisode recorded.
--- OUTSIDE RECORDS SUMMARY | 2024-10-11 08:12 | XMS_ITS | Clinical Summary ---
Author Organization [facility] it Address [address] [place] [address] Care Team Providers Care Roof Service Technician Name Role Phone Jose Estes MD Primary Care Provider [phone] Surgical History Surgery Date Site/Laterality Comments OTHER SURGICAL HISTORY Right PROCEDURE: ---- OTHER ----; COMMENT: ovarian cystectomy Medical History Medical History Date Comments Acanthosis nigricans 02/10/2015 DX:Acanthos is nigricans Anxiety 02/10/2015 DX:Anxiety Asthma 02/10/2015 DX:Asthma HTN (hypertension) 02/10/2015 DX:HTN (hyper tension) PCOS (polycystic ovarian syndrome) 02/10/2015 DX:PCOS (polycystic ovarian syndrome) Dyshidrosis 02/10/2015 DX:Dyshidrosis Morbid obesity ([facility]/HCC) 02/10/2015 DX:Morb id obesity ([facility]) Allergic rhinitis 01/22/2015 DX:Allergic rh initis Heterozygous factor V Leiden mutation (CMS/HCC) 12/17/2014 DX:Heterozygous factor V Lei den mutation ([facility]) Family History Medical History Relation Name Comments Breast cancer Aunt 1 Other: Pulmonary Embolism Father Fa ctor V Leiden positive, Diabetes Breast cancer Grandparent 1 Other: Atrial Fib Mother PE Colon cancer Paternal Grandfather Relation Name Status Comments Aunt 1 Aunt 2 Father Grandparent 1 Grandparent 2 Mother Paternal Grandfather Social History Tobacco Use Types Packs/Day Years Used Date Smoking Tobacco: Never Smokeless Tobacco: Never Alcohol Use Standard Drinks/Week Comments No 0 (1 standard drink = 0.6 oz pur e alcohol) Sex and Gender Information Value Date Recorded Sex Assigned at Not on file Gender Identity Not on file Sexual Orientation Not on file Obstetrics History Last Filed Vital Signs Vital Sign Reading Time Taken Comments Blood Pressure 137/93 05/18/2024 11:34 AM EDT Si tting L Arm Pulse 89 05/18/2024 11:34 AM EDT Temperature - - Respiratory Rate - - Oxygen Saturation - - Inhaled Oxygen Concentration - - Weight 194 kg (427 lb) 05/18/2024 11:34 AM EDT Height 175.3 cm (5' 9 ) 05/18/2024 11:34 AM EDT Body Mass Index 63.06 05/18/2024 11:34 AM EDT Plan of Treatment Health Maintenance Due Date Last Done Comments Pneumococcal Vaccine: Pediatrics (0 to 5 Years) and At-Risk Patients (6 to 64 Years) (1 of 2 - PCV) 1997 Cervical Cancer Screening: Pap Smear 2012 Cholesterol Screening (Lipid Panel) 2022 Depression Screening 2022 HIV Screening 2022 Hepatitis C Screening 2022 Social Influencers of Health Screening 2022 COVID-19 Vaccine ( season) 2024 01/17/2021, 12/27/2020 Influenza Vaccine (#1) 2024 06/15/2016, 2014 Hypertension/CHF/CAD Annual BMP Blood Test 07/09/2024 DTaP,Tdap,and Td Vaccines (9 - Td or Tdap) 04/29/2027 04/29/2017, 12/20/2006, 10/13/2001, Additional history exists HIB Vaccines Completed 11/06/1992, 12/1991, 1991, Additional history exists Varicella Vaccines Aged Out 1993 No longer eligible based on patient's age to complete this topic MMR Vaccines Completed 10/16/1996, 11/06/1992 IPV Vaccines Completed 02/06/1997, 12/1992, 11/06/1992, Additional history exists Hepatitis B Vaccines Completed 04/18/1997, 10/16/1996, 09/12/1996 Meningococcal ACWY Vaccine Aged Out 12/20/2006, No longer eligible based on patient's age to complete this topic HPV Vaccines Aged Out No longer eligi ble based on patient's age to complete this topic Hepatitis A Vaccines Aged Out No long er eligible based on patient's age to complete this topic RSV Immunization Patients Under 20 months Aged Out No longer eligible based on patient's age to complete this topic Care Teams Roof Service Technician Relationship Specialty Start Date End Date Jose Estes MD [address] [place] [id number] PCP - General Internal Medicine 09/02/21
--- NOTE | 2024-10-11 08:59 | A.OFFPC_ITS ---
Intake Visit Reasons: 1Wk F/U Allergies kiwi [KIWI] Allergy (Mild, Verified 10/11/24 09:00) HIVES mold [MOLD EXTRACTS*] Allergy (Mild, Verified 10/11/24 09:00) HIVES Medication List - Last Reconciled 10/11/24 by Jose Estes MD ammonium lactate 12% 1 appl See Protocol topical BID 30 days apixaban (Eliquis) 5 mg PO BID atenolol 50 mg PO DAILY atorvastatin 20 mg PO BEDTIME clozapine 100 mg PO BEDTIME 30 days clozapine 50 mg PO BEDTIME 30 days divalproex ER 1,500 mg (3 x 500 mg) PO BEDTIME 30 days dulaglutide (Trulicity) 1.5 mg (0.5 mL) subcut QWEEK 30 days furosemide 40 mg PO DAILY glipizide-metformin 5-500 mg 2 tabs PO BID 90 days lorazepam 1 mg PO BEDTIME PRN 30 days nystatin 1 appl See Protocol topical BID 30 days trazodone 50 mg PO BEDTIME PRN 30 days Tobacco use date assessed: 10/11/24 Dental Screening Dental Screen Date: 10/11/24 Did you have a dental visit in the last 12 months?: Yes Did you have a dental problem in the last 6 months where you did not have access to dental care?: No Was dental information given to patient?: Patient has dentist HPI 1Wk F/U HPI Details History - The patient is a 34-year-old female pr esenting with management of Type 2 Diabetes Mellitus. - Current medications include Glipizide 5 mg twice daily and weekly Trulicity injections, though blood glucose levels remain elevated, indicating poor control. - Recent glucose readings showcase varia ble levels from 225 to 319 mg/dL, with a fasting level of 195 mg/dL. - The current treatment is ineffective, necessitating a reconsideration of dosages to better manage hyperglycemia. - Concerns about potential hypoglycemia exist, requiring education on symptomatic recognition and management. - The patient's glucometer is operating with a low battery, indicating a need for replacement to ensure accurate monitoring. - The patient's medication regimen inclu stephanie Eliquis, which is about to run out and requires timely renewal for managing atrial fibrillation. Problem List - Type 2 Diabetes Mellitus - Risk of Hypoglycemia - Factor 5 leiden mutation Patient Instructions - Increase Glipizide dosage to 2 tablets in the morning and 2 tablets at night as directed. - Monitor blood glucose levels regularly , especially when adjusting medication. - Recognize and manage symptoms of hypog lycemia, consume orange juice if levels fall below normal but not less than 80 mg/dL. - Change the battery in the glucometer t o ensure accurate readings. - Refill Eliquis prescription to [facility] anticoagulation therapy. - Keep a record of blood glucose reading s and any symptomatic episodes. - Expect a follow-up call next to assess blood glucose levels and treatment response. Review of Systems - General: No fever no chills - Neurological: No headaches no dizziness - Ear nose throat: No sore throat no hearing difficulty no ear pain - Cardiovascular: No syncope, no chest pain, no palpitations - Gastrointestinal: No nausea vomiting or diarrhea - Endocrine: No polyuria polydipsia no heat intolerance - Genitourinary: No dysuria , no blood in urine [facility] Medical History Bipolar disorder Factor 5 Leiden mutation, heterozygous Venous stasis Chronic cellulitis Fever Fever of unknown origin Foot swelling Hidradenitis suppurativa Schizoaffective disorder, bipolar type Hypertension, essential Uncontrolled type 2 diabetes mellitus with hyperglycemia Leg edema Obesity, morbid Asthma Seasonal asthma Surgical History History of ovarian cyst History of wisdom tooth extraction Family History Father HTN (hypertension) Diabetes mellitus Mother Afib Maternal Grandfather No problems noted. Maternal Grandmother No problems noted. Paternal Grandmother Breast cancer Paternal Grandfather No problems noted. Sister No problems noted. Social History Household Members: Family Household Members Other:: father [phone] Housing: House Do you presently have visiting nurse or other home services: Yes Unable to assess alcohol history related to: Unknown Alcohol intake: never Comment: 1:1 Patient Tobacco Use Status: Never used Tobacco Tobacco use type: Cigarette Years Smoked: 3 yrs e-Cigarette/Vaping Use: Never Used Second Hand Smoke Exposure: No service: No Current occupational status: employed Sexual orientation: Straight/Heterosexual Cognitive needs: No Hearing needs: No Vision needs: Yes Questionnaire Thrive Questionnaire Date Thrive assessed: 09/27/24 AUDIT C Alcohol Use Questionnaire (AUDIT-C) 1. How often do you have a drink containing alcohol?: Never 3. How often do you have six or more drinks on one occasion?: Never Total Score: 0 Score Reviewed/Action Taken: Yes SOLE-7 AMB Questionnaire SOLE-7 Date SOLE - 7 assessed: 09/27/24 (patient declined) Source: Developed by Drs. Ricco Gunter, Lashonda Munroe, Nate Galvin and colleagues, with an educational giovana from [employer]. Physical exam (Primary Care) Tobacco/Smoking Status: Tobacco use Status Tobacco use date assessed 10/11/24 10/11/24 09:01 Patient Tobacco Use Status Never used Tobacco 10/11/24 09:01 Tobacco use type Cigarette 10/11/24 09:01 e-Cigarette/Vaping Use Never Used 10/11/24 09:01 Thrive Assessment: Date of Thrive Assessment Date Thrive assessed 09/27/24 10/11/24 09:01 Telehealth Telehealth Telehealth Platform: [employer] Location of provider rendering services: practice address Location of patient: address on file Patient Identification confirmed using: Name, : Yes Telehealth method: voice only Patient verbally consented to treatment: Yes Patient verbally consented to billing insurance company: Yes Patient informed of any privacy concerns related to visit: Yes Minutes spent on Phone/Video with Pt.: 13 Coding Level of Care Code Tele Est Pt Level 3 (97391) Diagnoses Uncontrolled type 2 diabetes mellitus with hyperglycemia E11.65 Factor 5 Leiden mutation, heterozygous D68.51 Assessment & Plan Assessment & Plan (1) Uncontrolled type 2 diabetes mellitus with hyperglycemia: Code(s): E11.65 - Type 2 diabetes mellitus with hyperglycemia Category: Medical (2) Factor 5 Leiden mutation, heterozygous: Code(s): D68.51 - Activated protein C resistance Category: Medical Plan History - The patient is a 34-year-old female presenting with management of Type 2 Diabetes Mellitus. - Current medications include Glipizide 5 mg twice daily and weekly Trulicity injections, though blood glucose levels remain elevated, indicating poor control. - Recent glucose readings showcase variable levels from 225 to 319 mg/dL, with a fasting level of 195 mg/dL. - The current treatment is ineffective, necessitating a reconsideration of dosages to better manage hyperglycemia. - Concerns about potential hypoglycemia exist, requiring education on symptomatic recognition and management. - The patient's glucometer is operating with a low battery, indicating a need for replacement to ensure accurate monitoring. - The patient's medication regimen includes Eliquis, which is about to run out and requires timely renewal for managing atrial fibrillation. Problem List - Type 2 Diabetes Mellitus - Risk of Hypoglycemia - Factor 5 leiden mutation Patient Instructions - Increase Glipizide dosage to 2 tablets in the morning and 2 tablets at night as directed. - Monitor blood glucose levels regularly, especially when adjusting medication. - Recognize and manage symptoms of hypoglycemia, consume orange juice if levels fall below normal but not less than 80 mg/dL. - Change the battery in the glucometer to ensure accurate readings. - Refill Eliquis prescription to maintain anticoagulation therapy. - Keep a record of blood glucose readings and any symptomatic episodes. - Expect a follow-up call next to assess blood glucose levels and treatment response. Medications: Changed From apixaban (Eliquis) 5 mg PO BID 60 tabs 0RF To apixaban (Eliquis) 5 mg PO BID 90 days 180 tabs 1RF
== END 2024-10-11 09:41 | disposition home or self-care (01) ==
LOC: HO.HMCC 08:10
PROVIDERS: PCP Internal Medicine; Visit Provider Internal Medicine
DX: E11.65 Type 2 diabetes mellitus with hyperglycemia (principal); D68.51 Activated protein C resistance

== ENCOUNTER 2024-10-18 10:18 | Outpatient (AMB) | payer OTHER, SELFPAY ==
--- NOTE | 2024-10-18 10:18 | A.OFFPC_ITS ---
Intake Visit Reasons: Med F/U Allergies kiwi [KIWI] Allergy (Mild, Verified 10/18/24 10:19) HIVES mold [MOLD EXTRACTS*] Allergy (Mild, Verified 10/18/24 10:19) HIVES Medication List - Last Reconciled 10/18/24 by Jose Estes MD ammonium lactate 12% 1 appl See Protocol topical BID 30 days apixaban (Eliquis) 5 mg PO BID 90 days atenolol 50 mg PO DAILY atorvastatin 20 mg PO BEDTIME clozapine 100 mg PO BEDTIME 30 days clozapine 50 mg PO BEDTIME 30 days divalproex ER 1,500 mg (3 x 500 mg) PO BEDTIME 30 days dulaglutide (Trulicity) 1.5 mg (0.5 mL) subcut QWEEK 30 days furosemide 40 mg PO DAILY glipizide-metformin 5-500 mg 2 tabs PO BID 90 days lorazepam 1 mg PO BEDTIME PRN 30 days nystatin 1 appl See Protocol topical BID 30 days trazodone 50 mg PO BEDTIME PRN 30 days Tobacco use date assessed: 10/18/24 Dental Screening Dental Screen Date: 10/18/24 Did you have a dental visit in the last 12 months?: Yes Did you have a dental problem in the last 6 months where you did not have access to dental care?: No Was dental information given to patient?: Patient has dentist HPI Med F/U HPI Details its a f.u from last week we are trying to get patients sugar in control she is now on glipizide - Metformin 5-500 mg , 2 tabs bid sugars are running around 209 to 160 fasting patient is also on trulicity 1.5 mg we will repeat labs in 3 M and adjust further [facility] Medical History Bipolar disorder Factor 5 Leiden mutation, heterozygous Venous stasis Chronic cellulitis Fever Fever of unknown origin Foot swelling Hidradenitis suppurativa Schizoaffective disorder, bipolar type Hypertension, essential Uncontrolled type 2 diabetes mellitus with hyperglycemia Leg edema Obesity, morbid Asthma Seasonal asthma Surgical History History of ovarian cyst History of wisdom tooth extraction Family History Father HTN (hypertension) Diabetes mellitus Mother Afib Maternal Grandfather No problems noted. Maternal Grandmother No problems noted. Paternal Grandmother Breast cancer Paternal Grandfather No problems noted. Sister No problems noted. Social History Household Members: Family Household Members Other:: father [phone] Housing: House Do you presently have visiting nurse or other home services: Yes Unable to assess alcohol history related to: Unknown Alcohol intake: never Comment: 1:1 Patient Tobacco Use Status: Never used Tobacco Tobacco use type: Cigarette Years Smoked: 3 yrs e-Cigarette/Vaping Use: Never Used Second Hand Smoke Exposure: No service: No Current occupational status: employed Sexual orientation: Straight/Heterosexual Cognitive needs: No Hearing needs: No Vision needs: Yes Questionnaire Thrive Questionnaire Date Thrive assessed: 09/27/24 SOLE-7 AMB Questionnaire SOLE-7 Date SOLE - 7 assessed: 09/27/24 (patient declined) Source: Developed by Drs. Ricco Gunter, Lashonda Munroe, Nate Galvin and colleagues, with an educational giovana from [employer]. Review of Systems Const Denies chills and Denies fever(s) ENT Denies epistaxis and Denies nasal discharge Card Denies chest pain Resp Denies chest congestion, Denies cough and Denies hemoptysis GI Denies diarrhea and Denies nausea Skin/Breast Denies rash Neuro Reports no additional complaints Psych Reports no additional complaints Endo Reports no additional complaints Physical exam (Primary Care) Tobacco/Smoking Status: Tobacco use Status Tobacco use date assessed 10/18/24 10/18/24 10:19 Patient Tobacco Use Status Never used Tobacco 10/18/24 10:19 Tobacco use type Cigarette 10/18/24 10:19 e-Cigarette/Vaping Use Never Used 10/18/24 10:19 Thrive Assessment: Date of Thrive Assessment Date Thrive assessed 09/27/24 10/18/24 10:19 Telehealth Telehealth Telehealth Platform: [facility] Location of provider rendering services: practice address Location of patient: address on file Patient Identification confirmed using: Name, : Yes Telehealth method: voice only Patient verbally consented to treatment: Yes Patient verbally consented to billing insurance company: Yes Patient informed of any privacy concerns related to visit: Yes Minutes spent on Phone/Video with Pt.: 13 Coding Level of Care Code Tele Est Pt Level 3 (52302) Diagnoses Uncontrolled type 2 diabetes mellitus with hyperglycemia E11.65 Assessment & Plan Assessment & Plan (1) Uncontrolled type 2 diabetes mellitus with hyperglycemia: Code(s): E11.65 - Type 2 diabetes mellitus with hyperglycemia Category: Medical Plan its a f.u from last week we are trying to get patients sugar in control she is now on glipizide - Metformin 5-500 mg , 2 tabs bid sugars are running around 209 to 160 fasting patient is also on trulicity 1.5 mg we will repeat labs in 3 M and adjust further Medications: Changed From dulaglutide (Trulicity) 1.5 mg (0.5 mL) subcut QWEEK 30 days 2.5 mL 0RF To dulaglutide (Trulicity) 1.5 mg (0.5 mL) subcut QWEEK 6.5 mL 1RF 90 days Refilled glipizide-metformin 5-500 mg 2 tabs PO BID 360 tabs 0RF 90 days
--- OUTSIDE RECORDS SUMMARY | 2024-10-18 11:00 | XMS_ITS | Clinical Summary ---
Author Organization [facility] Address [address] [place] [address] Care Team Providers Care Rehabilitation Caseworker Name Role Phone Unavailable Primary Care Provider [...] Advance Directives For more information, please contact: [phone] Documents on File Type Date Recorded Patient Programming Development Project Manager Expl anation Advance Directive and Living Will 03/11/2016 11:14 AM
--- OUTSIDE RECORDS SUMMARY | 2024-10-18 11:01 | XMS_ITS | Clinical Summary ---
Author Organization Unknown Care Team Providers Care Training Intern Name Role Phone BOWEN MONTOYA, RODRIGUEZ Unavailable Unavailable SCARLETT RN, LUIS M Unavailable Unavailable BRIE GRIMES, AURELIA Unavailable Unavailable Payers Payer Name Policy Type Policy Number Effective Date Expira tion Date [facility] [id number] [place] [id number] Problems Condition Name Condition Details Condition Category Status Onset Date Resolution Date Last Treatment Date Treating Clinician Comments SCHIZOAFFECT RYAN DISORDER, BIPOLAR TYPE Active 01-25 00:00: 00 CELLULITIS, UNSPECIFIED Active 01-18 00:00: 00 OTHER SPECIFIED DISORDERS OF VEINS Active 01-18 00:00: 00 TYPE 2 DIABETES MELLITUS WITHOUT COMPLICATION S Active 2023-09 0 00:00: 00 Allergies, Adverse Reactions, Alerts Allergy Name Allergy Type Status Severity Reaction(s) Onset Date Inactive Date Treating Clinician Comments KIWI EXTRACT Propensity to adverse reactions Active 2024-01 10:09:4 8 MOLD SPORES Propensity to adverse reactions Active 2024-01 10:09:4 1 Medications Ordered Medication Name Filled Medication Name Start Date Stop Date Current Medication? Ordering Clinician Indication Dosage Frequency Signature (SIG) Comments Components divalproex 250 mg tablet,celena yed release 11-03 00:00: 00 06-20 23:59 :00 No [id number] 4 tablet 2 TIMES DAILY 4 tablet 2 TIMES DAILY (route: oral) Med Classific ation: Central Nervous System Agents Eliquis 5 mg tablet 11-03 00:00: 00 06-20 23:59 :00 No [id number] 1 tablet 2 TIMES DAILY 1 tablet 2 TIMES DAILY (route: oral) Med Classific ation: Hematolog ical Agents furosemide 40 mg tablet 11-03 00:00: 00 09-27 23:59 :00 No [id number] 1 tablet DAILY 1 tablet DAILY (route: oral) Med Classific ation: Cardiovas cular Therapy Agents hydroxyzine HCl 25 mg tablet 11-03 00:00: 00 01-27 23:59 :00 No [id number] 1 tablet 4 TIMES DAILY 1 tablet 4 TIMES DAILY (route: oral) Med Classific ation: Central Nervous System Agents Lamictal 25 mg tablet 11-03 00:00: 00 01-27 23:59 :00 No [id number] 1 tablet BEDTIME 1 tablet BEDTIME (route: oral) Med Classific ation: Central Nervous System Agents lorazepam 1 mg tablet 11-03 00:00: 00 09-27 23:59 :00 No [id number] 1 tablet NEEDED 1 tablet NEEDED (route: oral) Med Classific ation: Central Nervous System Agents metformin 500 mg tablet 11-03 00:00: 00 01-27 00:00 :00 No [id number] 1 tablet DAILY 1 tablet DAILY (route: oral) Med Classific ation: Endocrine olanzapine 10 mg tablet 11-03 00:00: 00 01-27 23:59 :00 No [id number] 1 tablet 2 TIMES DAILY 1 tablet 2 TIMES DAILY (route: oral) Med Classific ation: Central Nervous System Agents prednisone 10 mg tablet 11-03 00:00: 00 01-27 23:59 :00 No [id number] Per instruc tions DIRECTED Per instructio ns DIRECTED (route: oral) Med Classific ation: Endocrine trazodone 50 mg tablet 11-03 00:00: 00 01-27 23:59 :00 No [id number] 1 tablet BEDTIME 1 tablet BEDTIME (route: oral) Med Classific ation: Central Nervous System Agents Invega Sustenna 156 mg/mL intramuscul ar syringe - 00:00: 00 01-27 23:59 :00 No [id number] Per instruc tions DIRECTED Per instructio ns DIRECTED (route: intramuscu lar) Med Classific ation: Central Nervous System Agents atenolol 25 mg tablet 01-27 00:00: 00 02-06 23:59 :00 No [id number] 1 tablet DAILY 1 tablet DAILY (route: oral) Med Classific ation: Cardiovas cular Therapy Agents clonidine HCl 0.1 mg tablet 01-27 00:00: 00 09-27 23:59 :00 No [id number] 1 tablet 2 TIMES DAILY 1 tablet 2 TIMES DAILY (route: oral) Med Classific ation: Cardiovas cular Therapy Agents Clozaril 100 mg tablet 01-27 00:00: 00 06-20 23:59 :00 No [id number] 1 tablet DAILY 1 tablet DAILY (route: oral) Med Classific ation: Central Nervous System Agents Clozaril 25 mg tablet 01-27 00:00: 00 06-20 23:59 :00 No [id number] 1 tablet BEDTIME 1 tablet BEDTIME (route: oral) Med Classific ation: Central Nervous System Agents docusate sodium 100 mg capsule 01-27 00:00: 00 09-27 23:59 :00 No [id number] 1 capsule BEDTIME 1 capsule BEDTIME (route: oral) Med Classific ation: Gastroint estinal Therapy Agents Eliquis 5 mg tablet 01-27 00:00: 00 06-20 23:59 :00 No [id number] 1 tablet 2 TIMES DAILY 1 tablet 2 TIMES DAILY (route: oral) Med Classific ation: Hematolog ical Agents metformin 500 mg tablet 01-27 00:00: 00 06-20 23:59 :00 No [id number] 1 tablet DAILY 1 tablet DAILY (route: oral) Med Classific ation: Endocrine O2 - OXYGEN 01-31 00:00: 00 09-27 23:59 :00 No [id number] 2 Liter DIRECTED 2 Liter DIRECTED (route: Oxygen) Med Classific ation: Medical Oxygen atenolol 25 mg tablet 02-06 00:00: 00 02-14 23:59 :00 No [id number] 3 tablet DAILY 3 tablet DAILY (route: oral) Med Classific ation: Cardiovas cular Therapy Agents atenolol 50 mg tablet 6-12 00:00: 00 09-27 23:59 :00 No [id number] 1 tablet DAILY 1 tablet DAILY (route: oral) Med Classific ation: Cardiovas cular Therapy Agents atorvastati n 20 mg tablet 2023-09 0-16 00:00: 00 09-27 23:59 :00 No [id number] 20 mg BEDTIME 20 mg BEDTIME (route: oral) Med Classific ation: Cardiovas cular Therapy Agents clozapine 100 mg tablet 2023-09 0-16 00:00: 00 09-27 23:59 :00 No [id number] 100 mg BEDTIME 100 mg BEDTIME (route: oral) Med Classific ation: Central Nervous System Agents clozapine 50 mg tablet 2023-09 0-16 00:00: 00 09-27 23:59 :00 No [id number] 50 mg BEDTIME 50 mg BEDTIME (route: oral) Med Classific ation: Central Nervous System Agents divalproex 500 mg tablet,celena yed release 2023-09 016 00:00: 00 09-27 23:59 :00 No [id number] 1500 mg BEDTIME 1500 mg BEDTIME (route: oral) Med Classific ation: Central Nervous System Agents doxycycline monohydrate 100 mg capsule 2023-09 0-16 00:00: 00 06-22 23:59 :00 No [id number] 100 mg 2 TIMES DAILY 100 mg 2 TIMES DAILY (route: oral) Med Classific ation: Anti-Infe ctive Agents Eliquis 5 mg tablet 2023-09 0-16 00:00: 00 09-27 23:59 :00 No [id number] 5 mg 2 TIMES DAILY 5 mg 2 TIMES DAILY (route: oral) Med Classific ation: Hematolog ical Agents metformin 1,000 mg tablet 2023-09 0-16 00:00: 00 09-27 23:59 :00 No [id number] 1000 mg 2 TIMES DAILY 1000 mg 2 TIMES DAILY (route: oral) Med Classific ation: Endocrine trazodone 50 mg tablet 2023-09 0-16 00:00: 00 09-27 23:59 :00 No [id number] 50 mg BEDTIME 50 mg BEDTIME (route: oral) Med Classific ation: Central Nervous System Agents Plan of Treatment Planned Activity Planned Date Details Comments Future Scheduled Test SKILLED NU RSE TO EVALUATE PATIENT, IDENTIFY PRIMARY AND CO-MORBID CONDITIONS CODED PER CODING GUIDELINES, AND DEVELOP PATIENT SPECIFIC PLAN OF CARE THAT INCLUDES PATIENT GOAL FOR HOME HEALTH. [code = SKILLED NURSE TO EVALUATE PATIENT, IDENTIFY PRIMARY AND CO-MORBID CONDITIONS CODED PER CODING GUIDELINES, AND DEVELOP PATIENT SPECIFIC PLAN OF CARE THAT INCLUDES PATIENT GOAL FOR HOME HEALTH.] Future Scheduled Test SKILLED NU RSE TO O/A OF PATIENTS MENTAL/BEHAVIORAL STATUS, ASSESS VITAL SIGNS (FREQUENCY OF VS), ALLOW 2 PRNS FOR MEDICATION MANAGEMENT. [code = SKILLED NURSE TO O/A OF PATIENTS MENTAL/BEHAVIORAL STATUS, ASSESS VITAL SIGNS (FREQUENCY OF VS), ALLOW 2 PRNS FOR MEDICATION MANAGEMENT.] Future Scheduled Test SKILLED NU RSE FOR O/A OF ALTERED THOUGHT PROCESS AND/OR DISRUPTION IN COGNITIVE OPERATIONS AND ACTIVITIES [code = SKILLED NURSE FOR O/A OF ALTERED THOUGHT PROCESS AND/OR DISRUPTION IN COGNITIVE OPERATIONS AND ACTIVITIES ] Future Scheduled Test SKILLED NU RSE FOR O/A OF GENERAL HEALTH STATUS OF PAIN, CARDIAC, RESPIRATORY, GASTROINTESTINAL, GENITOURINARY, SKIN, NEUROLOGIC, ENDOCRINE SYSTEMS TO IDENTIFY CHANGES ASSOCIATED WITH EXACERBATION FOR EARLY INTERVENTION OF COMPLICATIONS WEEKLY. [code = SKILLED NURSE FOR O/A OF GENERAL HEALTH STATUS OF PAIN, CARDIAC, RESPIRATORY, GASTROINTESTINAL, GENITOURINARY, SKIN, NEUROLOGIC, ENDOCRINE SYSTEMS TO IDENTIFY CHANGES ASSOCIATED WITH EXACERBATION FOR EARLY INTERVENTION OF COMPLICATIONS WEEKLY.] Future Scheduled Test SKILLED NU RSE FOR O/A AND SKILLED TEACHING RELATED TO MANAGEMENT OF DEPRESSIVE SYMPTOMS AND/OR DEPRESSION. SN TO REPORT SIGNIFICANT CHANGE IN DEPRESSIVE SYMPTOMS TO CLINICAL PROVIDER FOR EARLY INTERVENTION. [code = SKILLED NURSE FOR O/A AND SKILLED TEACHING RELATED TO MANAGEMENT OF DEPRESSIVE SYMPTOMS AND/OR DEPRESSION. SN TO REPORT SIGNIFICANT CHANGE IN DEPRESSIVE SYMPTOMS TO CLINICAL PROVIDER FOR EARLY INTERVENTION.] Future Scheduled Test SKILLED NU RSE TO REVIEW PATIENT MEDICATIONS. INSTRUCT PATIENT/CAREGIVER ON MONITORING OF EFFECTIVENESS, ADVERSE DRUG REACTIONS, SIDE EFFECTS OF ALL MEDICATIONS (PRESCRIPTION/-OTC), AND HOW AND WHEN TO REPORT PROBLEMS. [code = SKILLED NURSE TO REVIEW PATIENT MEDICATIONS. INSTRUCT PATIENT/CAREGIVER ON MONITORING OF EFFECTIVENESS, ADVERSE DRUG REACTIONS, SIDE EFFECTS OF ALL MEDICATIONS (PRESCRIPTION/-OTC), AND HOW AND WHEN TO REPORT PROBLEMS.] Future Scheduled Test SKILLED NU RSE WILL MAINTAIN SITUATIONAL AWARENESS FOR SAFETY AND WILL NOTIFY CLINICAL SALES AND MARKETING ANALYST AND PHYSICIAN/PROVIDER WITH ANY CHANGE IN CONDITION. [code = SKILLED NURSE WILL MAINTAIN SITUATIONAL AWARENESS FOR SAFETY AND WILL NOTIFY CLINICAL SALES AND MARKETING ANALYST AND PHYSICIAN/PROVIDER WITH ANY CHANGE IN CONDITION.] Goal 2024-05-25 Patient Goal - P ATIENT VERBALIZED GOAL OF IMPROVING STAMINA AND ENDURANCE, AND MEDICATION MANAGEMENT Goal 2024-03-26 Patient Goal - P ATIENT VERBALIZED GOAL OF IMPROVING STAMINA AND ENDURANCE, AND MEDICATION MANAGEMENT Goal 2024-07-23 Patient Goal - P ATIENT VERBALIZED GOAL OF IMPROVING STAMINA AND ENDURANCE, AND MEDICATION MANAGEMENT Goal 2024-09-19 Patient Goal - P ATIENT VERBALIZED GOAL OF IMPROVING STAMINA AND ENDURANCE, AND MEDICATION MANAGEMENT Goal 2024-09-24 Patient Goal - P ATIENT VERBALIZED GOAL OF IMPROVING STAMINA AND ENDURANCE, AND MEDICATION MANAGEMENT Goal Provider Goal - A PLAN OF CARE WILL BE ESTABLISHED THAT MEETS PATIENT'S FDC NEEDS AND INCLUDES PATIENT GOAL FOR HOME HEALTH. Goal Provider Goal - ALTERED MENTAL/BEHAVIORAL STATUS WILL BE IDENTIFIED PROMPTLY AND INTERVENTION INITIATED QUICKLY TO MINIMIZE ASSOCIATED RISKS THROUGHOUT CERTIFICATION PERIOD. Goal Provider Goal - PATIENT WILL BE ABLE TO PERFORM DAILY FUNCTIONS AND HAVE OPTIMAL IMPROVEMENT IN THOUGHT PROCESS THROUGHOUT CERTIFICATION PERIOD. Goal Provider Goal - CHANGE IN GENERAL HEALTH STATUS WILL BE IDENTIFIED AND REPORTED TO PHYSICIAN FOR PROMPT INTERVENTION TO MINIMIZE ASSOCIATED RISKS THROUGHOUT CERTIFICATION PERIOD. Goal Provider Goal - PATIENT WILL REMAIN SAFE WITHOUT DECOMPENSATION IN DEPRESSIVE CONDITION, WHILE MAINTAINING OPTIMAL LEVEL OF MENTAL HEALTH AND WELL BEING THROUGHOUT CERTIFICATION PERIOD. Goal Provider Goal - PATIENT/CAREGIVER WILL VERBALIZE UNDERSTANDING OF EDUCATION PROVIDED ON MEDICATIONS BY THE END OF THE CERTIFICATION PERIOD. Goal Provider Goal - PATIENT WILL REMAIN SAFE IN THE COMMUNITY AND WILL BE FREE OF DANGER TO SELF AND OTHERS THROUGHOUT THE CERTIFICATION PERIOD. Reason for Visit INDEPENDENT IN THE HOME Encounters Start Date/Time End Date/Time Encounter Type Admission Type Attending [facility] Care Facility Care Department Encounter ID Discharge Date Discharge Status Discharge Condition Discharge Reason Percent Goals Met 2024-01-28 00:00:00 2024-09-24 00:00:00 Outpatient RECERTIFIC DARCIEILEEN BRIE AURELIA [facility] [id number] 2024-09-24 00:00:00 DISCHARGE TO HOME OR SELF CARE INDEPENDEN T IN THE HOME LACK OF AUTHORIZAT ION .00
--- OUTSIDE RECORDS SUMMARY | 2024-10-18 11:01 | XMS_ITS | Clinical Summary ---
Author Organization Unknown Care Team Providers Care Vessel Manager Name Role Phone BOWEN MONTOYA, RODRIGUEZ Unavailable Unavailable SCARLETT RN, LUIS M Unavailable Unavailable BRIE GRIMES, AURELIA Unavailable Unavailable Payers Payer Name Policy Type Policy Number Effective Date Expira tion Date [facility] [id number] [place]ID [place] [id number] Problems Condition Name Condition Details Condition Category [...] 11-03 00:00: 00 06-20 23:59 :00 No [id number] 4 tablet 2 TIMES DAILY 4 tablet 2 TIMES DAILY (route: oral) Med Classific ation: Central Nervous System Agents Eliquis 5 mg tablet 11-03 00:00: 00 06-20 23:59 :00 No [id number] 1 tablet 2 TIMES DAILY 1 tablet 2 TIMES DAILY (route: oral) Med Classific ation: Hematolog ical Agents furosemide 40 mg tablet 11-03 00:00: 00 09-27 23:59 :00 No [id number] 1 tablet DAILY 1 tablet DAILY (route: oral) Med Classific ation: Cardiovas cular Therapy Agents hydroxyzine HCl 25 mg tablet 11-03 00:00: 00 01-27 23:59 :00 No [id number] 1 tablet 4 TIMES DAILY 1 tablet 4 TIMES DAILY (route: oral) Med Classific ation: Central Nervous System Agents Lamictal 25 mg tablet 11-03 00:00: 00 01-27 23:59 :00 No [id number] 1 tablet BEDTIME 1 tablet BEDTIME (route: oral) Med Classific ation: Central Nervous System Agents lorazepam 1 mg tablet 11-03 00:00: 00 09-27 23:59 :00 No [id number] 1 tablet NEEDED 1 tablet NEEDED (route: oral) Med Classific ation: Central Nervous System Agents metformin 500 mg tablet 11-03 00:00: 00 01-27 00:00 :00 No [id number] 1 tablet DAILY 1 tablet DAILY (route: oral) Med Classific ation: Endocrine olanzapine 10 mg tablet 11-03 00:00: 00 01-27 23:59 :00 No [id number] 1 tablet 2 TIMES DAILY 1 tablet 2 TIMES DAILY (route: oral) Med Classific ation: Central Nervous System Agents prednisone 10 mg tablet 11-03 00:00: 00 01-27 23:59 :00 No [id number] Per instruc tions DIRECTED Per instructio ns DIRECTED (route: oral) Med Classific ation: Endocrine trazodone 50 mg tablet 11-03 00:00: 00 01-27 23:59 :00 No [id number] 1 tablet BEDTIME 1 tablet BEDTIME (route: oral) Med Classific ation: Central Nervous System Agents Invega Sustenna 156 mg/mL intramuscul ar syringe - 00:00: 00 01-27 23:59 :00 No [id number] Per instruc tions DIRECTED Per instructio ns DIRECTED (route: intramuscu lar) Med Classific ation: Central Nervous System Agents atenolol 25 mg tablet 01-27 00:00: 00 02-06 23:59 :00 No [id number] 1 tablet DAILY 1 tablet DAILY (route: oral) Med Classific ation: Cardiovas cular Therapy Agents clonidine HCl 0.1 mg tablet 01-27 00:00: 00 09-27 23:59 :00 No [id number] 1 tablet 2 TIMES DAILY 1 tablet 2 TIMES DAILY (route: oral) Med Classific ation: Cardiovas cular Therapy Agents Clozaril 100 mg tablet 01-27 00:00: 00 06-20 23:59 :00 No [id number] 1 tablet DAILY 1 tablet DAILY (route: oral) Med Classific ation: Central Nervous System Agents Clozaril 25 mg tablet 01-27 00:00: 00 06-20 23:59 :00 No [id number] 1 tablet BEDTIME 1 tablet BEDTIME (route: oral) Med Classific ation: Central Nervous System Agents docusate sodium 100 mg capsule 01-27 00:00: 00 09-27 23:59 :00 No [id number] 1 capsule BEDTIME 1 capsule BEDTIME (route: oral) Med Classific ation: Gastroint estinal Therapy Agents Eliquis 5 mg tablet 01-27 00:00: 00 06-20 23:59 :00 No [id number] 1 tablet 2 TIMES DAILY 1 tablet 2 TIMES DAILY (route: oral) Med Classific ation: Hematolog ical Agents metformin 500 mg tablet 01-27 00:00: 00 06-20 23:59 :00 No [id number] 1 tablet DAILY 1 tablet DAILY (route: oral) Med Classific ation: Endocrine O2 - OXYGEN 01-31 00:00: 00 09-27 23:59 :00 No [id number] 2 Liter DIRECTED 2 Liter DIRECTED (route: Oxygen) Med Classific ation: Medical Oxygen atenolol 25 mg tablet 02-06 00:00: 00 02-14 23:59 :00 No [id number] 3 tablet DAILY 3 tablet DAILY (route: oral) Med Classific ation: Cardiovas cular Therapy Agents atenolol 50 mg tablet 6-12 00:00: 00 09-27 23:59 :00 No [id number] 1 tablet DAILY 1 tablet DAILY (route: oral) Med Classific ation: Cardiovas cular Therapy Agents atorvastati n 20 mg tablet 2023-09 0-16 00:00: 00 09-27 23:59 :00 No [id number] 20 mg BEDTIME 20 mg BEDTIME (route: oral) Med Classific ation: Cardiovas cular Therapy Agents clozapine 100 mg tablet 2023-09 0-16 00:00: 00 09-27 23:59 :00 No [id number] 100 mg BEDTIME 100 mg BEDTIME (route: oral) Med Classific ation: Central Nervous System Agents clozapine 50 mg tablet 2023-09 0-16 00:00: 00 09-27 23:59 :00 No [id number] 50 mg BEDTIME 50 mg BEDTIME (route: oral) Med Classific ation: Central Nervous System Agents divalproex 500 mg tablet,celena yed release 2023-09 016 00:00: 00 09-27 23:59 :00 No [id number] 1500 mg BEDTIME 1500 mg BEDTIME (route: oral) Med Classific ation: Central Nervous System Agents doxycycline monohydrate 100 mg capsule 2023-09 0-16 00:00: 00 06-22 23:59 :00 No [id number] 100 mg 2 TIMES DAILY 100 mg 2 TIMES DAILY (route: oral) Med Classific ation: Anti-Infe ctive Agents Eliquis 5 mg tablet 2023-09 0-16 00:00: 00 09-27 23:59 :00 No [id number] 5 mg 2 TIMES DAILY 5 mg 2 TIMES DAILY (route: oral) Med Classific ation: Hematolog ical Agents metformin 1,000 mg tablet 2023-09 0-16 00:00: 00 09-27 23:59 :00 No [id number] 1000 mg 2 TIMES DAILY 1000 mg 2 TIMES DAILY (route: oral) Med Classific ation: Endocrine trazodone 50 mg tablet 2023-09 0-16 00:00: 00 09-27 23:59 :00 No [id number] 50 mg BEDTIME 50 mg BEDTIME (route: [...] AWARENESS FOR SAFETY AND WILL NOTIFY CLINICAL SCRAP METAL PROCESSING WORKER AND PHYSICIAN/PROVIDER WITH ANY CHANGE IN CONDITION. [code = SKILLED NURSE WILL MAINTAIN SITUATIONAL AWARENESS FOR SAFETY AND WILL NOTIFY CLINICAL SCRAP METAL PROCESSING WORKER AND PHYSICIAN/PROVIDER WITH ANY CHANGE IN CONDITION.] [...] CARE WILL BE ESTABLISHED THAT MEETS PATIENT'S RESIDENTIAL NEEDS AND INCLUDES PATIENT GOAL FOR HOME [...] End Date/Time Encounter Type Admission Type Attending [facility] Care Facility Care Department Encounter ID Discharge Date Discharge Status Discharge Condition Discharge Reason Percent Goals Met 2024-01-28 00:00:00 2024-09-24 00:00:00 Outpatient RECERTIFIC DARCIEILEEN BRIE AURELIA [facility] [id number] 2024-09-24 00:00:00 DISCHARGE TO HOME OR SELF CARE INDEPENDEN T IN THE HOME LACK OF AUTHORIZAT ION .00
--- OUTSIDE RECORDS SUMMARY | 2024-10-18 11:01 | XMS_ITS | Clinical Summary ---
Author Organization [facility] it Address [address] [place] [address] Care Team Providers Care Boiler Tender Name Role Phone Jose Estes MD Primary Care Provider [phone] Surgical History Surgery Date Site/Laterality Comments OTHER SURGICAL HISTORY Right PROCEDURE: ---- OTHER ----; COMMENT: ovarian cystectomy Medical History Medical History Date Comments Acanthosis nigricans 02/10/2015 DX:Acanthos is nigricans Anxiety 02/10/2015 DX:Anxiety Asthma 02/10/2015 DX:Asthma HTN (hypertension) 02/10/2015 DX:HTN (hyper tension) PCOS (polycystic ovarian syndrome) 02/10/2015 DX:PCOS (polycystic ovarian syndrome) Dyshidrosis 02/10/2015 DX:Dyshidrosis Morbid obesity (CMS/HCC) 02/10/2015 DX:Morb id obesity ([facility]) Allergic rhinitis 01/22/2015 DX:Allergic rh initis Heterozygous factor V Leiden mutation (CMS/HCC) 12/17/2014 DX:Heterozygous factor V Lei den mutation ([facility]) Family History Medical History Relation Name Comments [...] drink = 0.6 oz pur e alcohol) Comments Unknown Sex and Gender Information Value Date Recorded Sex Assigned at Not on file Legal Sex Female 4:02 AM EST Gender Identity Not on file Sexual Orientation [...] 65 Years) (1 of 2 - PCV) 2010 Cervical Cancer Screening: Pap Smear 2012 Cholesterol [...] on patient's age to complete this topic Meningococcal B Vacine Aged Out No lo nger eligible based on patient's age to complete this topic RSV Immunization Patients Under 20 months Aged Out No longer eligible based on patient's age to complete this topic Care Teams Boiler Tender Relationship Specialty Start Date End Date Jose Estes MD [address] [place] [address] PCP - General Internal Medicine 09/02/21
--- OUTSIDE RECORDS SUMMARY | 2024-10-18 11:01 | XMS_ITS ---
Author Organization [facility] Address [address] [address] Care Team Providers Care Handbag Finisher Name Role Phone SAM LADD Primary Care Provider Inga Bustos Unavailable [phone] REASON FOR VISIT Annual MUSEUM GUIDE Physical Encounters Encounter Location Date Provider Diagnosis [facility] [address] [address] 05/02/2023 Inga Farr Plan Of Treatment No Information Progress Notes * JAMES WILHELMDOB: [birth year] (34 yo F)Acc No.[id number]:05/02/2023 PROGRESS NOTES Patient:?JAMES WILHELM Appointment Provider:?Inga sahni M.D. :1990???Age:32 Y???Sex:Female D ate:05/02/2023 Address:[address] [place], [place] [id number] Pcp:SAM LADD Subjective: * Chief Complaints: * ???1. Annual MUSEUM GUIDE Physical. * Medical History:? Objective: * Vitals:? Assessment: Plan: * Treatment: * Images: Billing Information: * Visit Code:? * Procedure Codes:? * Electronic signature of Kerry Farr MD on 10/18/2024 at 11:00 AM EST Sign off status: Pending * Appointment Provider:?Inga Farr M.D. Date:?05/02/2023 Generated for Printi ng/Faiglesiag/eTransmitting on:?10/18/2024 11:00 AM EST
--- OUTSIDE RECORDS SUMMARY | 2024-10-18 11:01 | XMS_ITS | Patient Health Record ---
Author Organization [facility] Address [address] [facility] [address] [place] [address] Care Team Providers Care Appeals Nurse Name Role Phone SAM LADD Primary Care Provider Inga Bustos Unavailable [phone] Allergies No Known Allergies Reason For Referral No Information Medications Medication SIG (Take, Route, Frequency, Duration) Notes Start Date End Date Status Provera 5 MG 1 tablet Orally TWIC E A DAY FOR 10 DAYS Q 3 MONTHS for 90 days 11/08/2022 Active Trulicity 1.5 MG/0.5ML as directed Subcu taneous Once a week 11/08/2022 Active Aygestin 5 MG 1 tablet Orally Q 6H RS-D1, Q8 HRS-D2, THEN TWICE DAILY DAYS 3 TO 12 for 14 days 12/03/2022 Active Symbicort 160-4.5 MCG/ACT Inhalation for 30 Active Atenolol-Chlorthalidone 50-25 MG Oral for 90 Active Latuda 20 MG Oral for 90 Activ e Provera 5 MG 1 tablet Orally ELVIA Y FOR 10 DAYS Q MONTH for 90 days 04/28/2022 Acti ve Social History Tobacco Use: Social History Observation Description Date Details (start date - stop date) Never Smoker NA - NA Tobacco Use/Smoking Question Answer Notes Are you a nonsmoker Alcohol Screen (Audit-C) Question Answer Notes Did you have a drink containing alcohol in the p ast year? No Points 0 Interpretation Negative Sexual History Question Answer Notes Had sex in the past 12 months (vaginal, oral, or anal)? 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) Type 2 diabetes mellitus with unspecified complications (E11.8) Active confirmed Problem Morbid obesity (disorder) (566782797) Morbid (severe) obesity due to excess calories (E66.01) Active confirmed Problem Asthma (654067670) Other asthma (J45.998) Active confirmed Problem Abnormal vaginal bleeding (073736665) Other specified abnormal uterine and vaginal bleeding (N93.8) Active confirmed Problem Polycystic ovarian syndrome (E28.2) Active confirmed Plan Of Treatment No Information Insurance Providers Payer Name Payer Address Payer Phone Subscriber Number Group Number Insured Name Patient Relationship to Insured Coverage Start Date Coverage End Date [facility] [address] [address] [place] [id number] JAMES WILHELM Self - patient is the insured Medical (General) History Medical History History ICD Code Hereditary factor XI deficiency D68.1 Type 2 diabetes mellitus with unspecifie d complications E11.8 Other asthma J45.998 Essential (primary) hypertension I10 Polycystic ovarian syndrome E28.2 Morbid (severe) obesity due to excess ca lories E66.01 Other specified abnormal uterine and vag inal bleeding N93.8 Surgical History Surgery Date(Month/Year) Ovarian Cyst Removal [place] Hospitalization History Reason Date(Month/Year) Mental Issues for 51 days
--- OUTSIDE RECORDS SUMMARY | 2024-10-18 11:01 | XMS_ITS ---
Author Organization [facility] Address [address] [address] Care Team Providers Care Bug Trimmer Name Role Phone SAM LADD Primary Care Provider Inga Bustos Unavailable [phone] REASON FOR VISIT Annual (YELLOW FORM DONE) Encounters Encounter Location Date Provider Diagnosis [facility] [address] [address] 11/10/2023 Inga Farr Plan Of Treatment No Information Progress Notes * JAMES WILHELMDOB: [birth year] (34 yo F)Acc No.[id number]:11/10/2023 PROGRESS NOTES Patient:?JAMES WILHELM Appointment Provider:?Inga sahni M.D. :1990???Age:33 Y???Sex:Female D ate:11/10/2023 Address:[address] [place], [place] [id number] Pcp:SAM LDAD Subjective: * Chief Complaints: * ???1. Annual (YELLOW FORM DO NE). * Medical History:? Objective: * Vitals:? Assessment: Plan: * Treatment: * Images: Billing Information: * Visit Code:? * Procedure Codes:? * Electronic signature of Kerry Farr MD on 10/18/2024 at 11:00 AM EST Sign off status: Pending * Appointment Provider:?Inga Farr M.D. Date:?11/10/2023 Generated for Eduardi hawa/Shayy/eTransmitting on:?10/18/2024 11:00 AM EST
== END 2024-10-18 10:43 | disposition home or self-care (01) ==
LOC: HO.HMCC 10:18
PROVIDERS: PCP Internal Medicine; Visit Provider Internal Medicine
DX: E11.65 Type 2 diabetes mellitus with hyperglycemia (principal)

== ENCOUNTER 2024-12-13 08:46 | Outpatient (AMB) | payer OTHER, SELFPAY ==
--- NOTE | 2024-12-13 08:45 | A.OFFPC_ITS ---
Intake Visit Reasons: Discuss Referral Allergies kiwi [KIWI] Allergy (Mild, Verified 12/13/24 08:46) HIVES mold [MOLD EXTRACTS*] Allergy (Mild, Verified 12/13/24 08:46) HIVES Medication List - Last Reconciled 12/13/24 by Jose Estes MD ammonium lactate 12% 1 appl See Protocol topical BID 30 days apixaban (Eliquis) 5 mg PO BID 90 days atenolol 50 mg PO DAILY atorvastatin 20 mg PO BEDTIME clozapine 100 mg PO BEDTIME 30 days clozapine 50 mg PO BEDTIME 30 days divalproex ER 1,500 mg (3 x 500 mg) PO BEDTIME 30 days dulaglutide (Trulicity) 1.5 mg (0.5 mL) subcut QWEEK 90 days furosemide 40 mg PO DAILY glipizide-metformin 5-500 mg 2 tabs PO BID 90 days lorazepam 1 mg PO BEDTIME PRN 30 days nystatin 1 appl See Protocol topical BID 30 days trazodone 50 mg PO BEDTIME PRN 30 days Tobacco use date assessed: 12/13/24 Dental Screening Dental Screen Date: 12/13/24 Did you have a dental visit in the last 12 months?: Yes Did you have a dental problem in the last 6 months where you did not have access to dental care?: No Was dental information given to patient?: Patient has dentist HPI Discuss Referral HPI Details History - The patient is a 34-year-old female pr esenting with gastrointestinal issues. - The patient experiences ongoing upset stomach and abdominal discomfort. - A GI referral was previously discussed but was not processed due to an incorrect fax number causing a delay in appointment scheduling. at [facility] - The patient's hemoglobin A1c showed po sunil controlled diabetes with a value of 12.1% in September; follow-up labs are planned. - Blood sugar monitoring was not maintai richie regularly by the patient. - Factor V Leiden diagnosis requires con tinuous Eliquis use, managed without recent professor of rhetoric intervention. patient will need to take that life long her father was present during this visit Problem List - Upset stomach, chronic diarrhea - Factor V Leiden - High Hemoglobin A1c (Diabetes) - Chronic use of Eliquis Patient Instructions - Schedule blood work for hemoglobin A1c in early January before the follow-up appointment on January 17. - We will Ensure the GI referral is proc essed with the correct fax number provided. - Maintain regular monitoring of blood s ugars. - Eliquis prescription will be refilled for twice-daily administration. Review of Systems - General: No fever no chills - Neurological: No headaches no dizziness - Ear nose throat: No sore throat no hearing difficulty no ear pain - Cardiovascular: No syncope, no chest pain, no palpitations - Gastrointestinal: No nausea vomiting or diarrhea - Endocrine: No polyuria polydipsia no heat intolerance - Genitourinary: No dysuria , no blood in urine [facility] Medical History Bipolar disorder Factor 5 Leiden mutation, heterozygous Venous stasis Chronic cellulitis Fever Fever of unknown origin Foot swelling Hidradenitis suppurativa Schizoaffective disorder, bipolar type Hypertension, essential Uncontrolled type 2 diabetes mellitus with hyperglycemia Leg edema Obesity, morbid Asthma Seasonal asthma Surgical History History of ovarian cyst History of wisdom tooth extraction Family History Father HTN (hypertension) Diabetes mellitus Mother Afib Maternal Grandfather No problems noted. Maternal Grandmother No problems noted. Paternal Grandmother Breast cancer Paternal Grandfather No problems noted. Sister No problems noted. Social History Household Members: Family Household Members Other:: father [phone] Housing: House Do you presently have visiting nurse or other home services: Yes Unable to assess alcohol history related to: Unknown Alcohol intake: never Comment: 1:1 Patient Tobacco Use Status: Never used Tobacco Tobacco use type: Cigarette Years Smoked: 3 yrs e-Cigarette/Vaping Use: Never Used Second Hand Smoke Exposure: No service: No Current occupational status: employed Sexual orientation: Straight/Heterosexual Cognitive needs: No Hearing needs: No Vision needs: Yes Questionnaire Thrive Questionnaire Date Thrive assessed: 09/27/24 AUDIT C Alcohol Use Questionnaire (AUDIT-C) 1. How often do you have a drink containing alcohol?: Never 3. How often do you have six or more drinks on one occasion?: Never Total Score: 0 Score Reviewed/Action Taken: Yes SOLE-7 AMB Questionnaire SOLE-7 Date SOLE - 7 assessed: 09/27/24 (patient declined) Source: Developed by Drs. Ricco Gunter, Lashonda Munroe, Nate Galvin and colleagues, with an educational giovana from [employer]. Physical exam (Primary Care) Tobacco/Smoking Status: Tobacco use Status Tobacco use date assessed 12/13/24 12/13/24 08:46 Patient Tobacco Use Status Never used Tobacco 12/13/24 08:46 Tobacco use type Cigarette 12/13/24 08:46 e-Cigarette/Vaping Use Never Used 12/13/24 08:46 Thrive Assessment: Date of Thrive Assessment Date Thrive assessed 09/27/24 12/13/24 08:46 Telehealth Telehealth Telehealth Platform: Better[employer] Location of provider rendering services: practice address Location of patient: address on file Patient Identification confirmed using: Name, : Yes Telehealth method: video Patient verbally consented to treatment: Yes Patient verbally consented to billing insurance company: Yes Patient informed of any privacy concerns related to visit: Yes Coding Level of Care Code Tele Est Pt Level 3 (10977) Complex EM visit Add On G2211 Diagnoses Uncontrolled type 2 diabetes mellitus with hyperglycemia E11.65 Chronic diarrhea K52.9 Factor 5 Leiden mutation, heterozygous D68.51 Time Spent (min) 20 Assessment & Plan Assessment & Plan (1) Uncontrolled type 2 diabetes mellitus with hyperglycemia: Code(s): E11.65 - Type 2 diabetes mellitus with hyperglycemia Category: Medical (2) Chronic diarrhea: Code(s): K52.9 - Noninfective gastroenteritis and colitis, unspecified Category: Medical (3) Factor 5 Leiden mutation, heterozygous: Code(s): D68.51 - Activated protein C resistance Category: Medical Plan History - The patient is a 34-year-old female presenting with gastrointestinal issues. - The patient experiences ongoing upset stomach and abdominal discomfort. - A GI referral was previously discussed but was not processed due to an incorrect fax number causing a delay in appointment scheduling. at [facility] - The patient's hemoglobin A1c showed poorly controlled diabetes with a value of 12.1% in September; follow-up labs are planned. - Blood sugar monitoring was not maintained regularly by the patient. - Factor V Leiden diagnosis requires continuous Eliquis use, managed without recent professor of rhetoric intervention. patient will need to take that life long her father was present during this visit Problem List - Upset stomach, chronic diarrhea - Factor V Leiden - High Hemoglobin A1c (Diabetes) - Chronic use of Eliquis Patient Instructions - Schedule blood work for hemoglobin A1c in early January before the follow-up appointment on January 17. - We will Ensure the GI referral is processed with the correct fax number provided. - Maintain regular monitoring of blood sugars. - Eliquis prescription will be refilled for twice-daily administration. Medications: Refilled apixaban (Eliquis) 5 mg PO BID 90 days 180 tabs 1RF
--- OUTSIDE RECORDS SUMMARY | 2024-12-13 09:10 | XMS_ITS | Clinical Summary ---
Author Organization [address] [place] [address] [place] [address] Phone Care Team Providers Care Road Commissioner Name Role Phone Jose Estes MD Primary Care Provider [phone] Allergies No known active allergies Medications fluconazole (DIFLUCAN) 150 mg tablet Take 1 tablet by mouth once if needed (yeast infection). Take second tablet 3 days later if symptoms persist. 2 tablet 10/24/2024 Active Encounters Date Type Department Care Team Description 10/24/2024 4:00 PM EST Office Visit Walk-In Clinic - [address] [address] Hari Benitez PA Intertriginous candidiasis (Primary Dx); Abscess of abdominal wall; Allergic contact dermatitis, unspecified trigger from Last 3 Months Surgical History Surgery Date Site/Laterality Comments OTHER SURGICAL HISTORY Right PROCEDURE: ---- OTHER ----; COMMENT: ovarian cystectomy Medical History Medical History Date Comments Acanthosis nigricans 02/10/2015 DX:Acanthos is nigricans Anxiety 02/10/2015 DX:Anxiety Asthma 02/10/2015 DX:Asthma HTN (hypertension) 02/10/2015 DX:HTN (hyper tension) PCOS (polycystic ovarian syndrome) 02/10/2015 DX:PCOS (polycystic ovarian syndrome) Dyshidrosis 02/10/2015 DX:Dyshidrosis Morbid obesity (CMS/HCC V24, CMS/HCC V28) 02/10/2015 DX:Morbid obesity (HCC) Allergic rhinitis 01/22/2015 DX:Allergic rh initis Heterozygous factor V Leiden mutation (CMS/HCC V24) 12/17/2014 DX:Heterozygous factor V Lei den mutation (HCC) Family History Medical History Relation Name Comments [...] Sign Reading Time Taken Comments Blood Pressure 128/64 10/24/2024 4:06 PM EST Pulse 92 10/24/2024 4:06 PM EST Temperature 36.6 ??C (97.9 ??F) 10/24/2024 4:06 PM ES T Respiratory Rate - - Oxygen Saturation 97% 10/24/2024 4:06 PM EST Inhaled Oxygen Concentration - - Weight 194 kg (427 lb) 05/18/2024 11:34 AM EDT Height 175.3 cm (5' 9 ) 05/18/2024 11:34 AM EDT Body Mass Index 63.06 05/18/2024 11:34 AM EDT Plan of Treatment Upcoming Encounters Date Type Department Care Team (Late st Contact Info) Description 01/30/2025 2:00 PM EDT Office Visit Internal Medicine - [facility] [place] [phone] Dania Bhatti PA [address] [place] [address] Health Maintenance Due Date Last Done Comments Pneumococcal Vaccine: Pediatrics (0 to 5 Years) and At-Risk Patients (6 to 64 Years) (1 of 2 - PCV) 2010 Cervical Cancer Screening: Pap Smear 2012 Cholesterol Screening (Lipid Panel) 2022 Depression Screening 2022 HIV Screening 2022 Hepatitis C Screening 2022 Social Influencers of Health Screening 2022 COVID-19 Vaccine ( season) 2024 01/17/2021, 12/27/2020 Hypertension/CHF/CAD Annual BMP Blood Test 07/09/2024 Influenza Vaccine (Season Ended) 2025 06/15/2016, 04/25/2015 DTaP,Tdap,and Td Vaccines (9 - Td or Tdap) 04/29/2027 04/29/2017, 12/20/2006, 10/13/2001, Additional history exists HIB Vaccines Completed 11/06/1992, 12/1992, 02/07/1992, Additional history exists Varicella Vaccines Aged Out [...] age to complete this topic Meningococcal B Vaccine Aged Out No l onger eligible based on patient's age to complete this topic RSV Immunization Patients Under 20 months Aged Out No longer eligible based on patient's age to complete this topic [place] [address] [place] [address] HEALTH PLAN MEDICAID - [place] Care Teams Road Commissioner Relationship Specialty Start Date End Date Jose Estes MD [address] [place] [address] PCP - General Internal Medicine 09/02/21
--- OUTSIDE RECORDS SUMMARY | 2024-12-13 09:10 | XMS_ITS | Data Portability ---
Author Organization [place] [facility] Address [address] [place] [phone] Care Team Providers Care Sr. Manager Corporate Communications Name Role Phone SAM LADD Primary Care Provider Assessment Encounter Date Assessment Date Assessment LastModified [...] after care of this patient according to [facility]'s infection prevention protocols. Time On Scene with Patient: 00:35:44 [email or web address] Not available 09/22/2021 11:24:55 Plan of Treatment Reminders Order Date Submit Date Provider Last Modified By Organization Details Last Modified Time Details Appointments None recorded. Lab None recorded. Referral None recorded. Procedures None recorded. Surgeries None recorded. Imaging None recorded. Medication Orders ondansetron 8 mg disintegrat ing tablet [address] [facility]/Pharmacy #[id number], [phone] [place], [address], 11:27:00 Patient TargetsNo targets recorded. Patient Instructions Encounter Date Encounter Id Patient Instructions Last Modified By Organization Details Last Modified Time 09/22/2021 [id number] gastroenteritis: care instructions [email or web address] Not available 09/22/2021 11:26:22 Gastroenteritis: Care Instructions [...] check your refrigerator. It should be between 34??F and 40??F. Defrost meats in the refrigerator or microwave, [...] by. Care instructions adapted under license by [facility]. This care instruction is for use with your licensed healthcare professional. If you have questions about a medical condition or this instruction, always ask your healthcare professional. [employer] disclaims any warranty or liability for your use of this information. [email or web address] Not available 09/22/2021 11:26:02 Reason for Referral None Reported. Procedures Surgical History Date Name Laterality Status Provider Name and Address Organization Details Recorded Time excision of cyst of ovary completed Tolu Hurley NP [address], [place], [address], [place] [facility] 09/22/2021 10:47:34 Imaging Results None recorded. Procedure [...] Status Never Smoker Tolu Hurley, PHANI [address], [place], [address], [place] [facility] 09/22/2021 10:47:49 Do You Have An Advance Directive? No [email or web address] Information not available 09/22/2021 What Is Your Level Of Alcohol Consumption? None [email or web address] Information not available 09/22/2021 What Is Your Code Status? Full Code [email or web address] Information not available 09/22/2021 Within The Past 12 Months, Has It Happened That The Food You Bought Just Didn't Last And You Didn't Have Money To Get More. No [email or web address] Information not available 09/22/2021 Within The Past 12 Months, Have You Worried That Your Food Would Run Out Before You Got Money To Buy More. No [email or web address] Information not available 09/22/2021 Fall Risk: Do You Feel Unsteady When Standing Or Walking? No [email or web address] Information not available 09/22/2021 Excessive Alcohol Or Drug Use No [email or web address] Information not available 09/22/2021 Does This Patient Have A PCP? Yes [email or web address] Information not available 09/22/2021 Do You Use Any Illicit Or Recreational Drugs? No [email or web address] Information not available 09/22/2021 Do You Or Have You Ever Used Any Other Forms Of Tobacco Or Nicotine? No [email or web address] Information not available 09/22/2021 Sex: Unknown Functional Status None recorded. Mental Status None recorded. Family History Relationship Description Onset Age of this Age Resolved Age Notes LastModified by Organization Details LastModified Time Father Hypertensive disorder [email or web address] Not available 2021 10:48:10 Medical History Condition Response Coronary Artery Disease N Parkinson's Disease N Hypothyroidism N COPD N A-fib N Diabetes Y CHF N Cancer N Stroke N Dementia N Asthma N High Cholesterol N Rheumatoid Arthritis N Pulmonary Embolism N Hypertension Y Osteoporosis N Kidney Disease N Gynecological HistoryNo gynecological history recorded. Obstetrics History GPAL:G 0 P 0 0 0 0 Past Encounters Encounter ID Performer Location Encounter Start Date Encounter Closed Date Diagnosis/Indication Diagnosis SNOMED-CT Code Diagnosis ICD10 Code Diagnosis Note [id number] Tolu Hurley NP [facility] [address] [place] [address] 09/22/2021 10:42:51 09/25/2021 13:00:14 Post-acute COVID-19 [id number] U07.1 Viral gastroenteritis 11 [id number] A08.4 Health Concerns Section Related Observation LastModified by Organization Detai ls LastModified Time None Recorded Concern Status LastModified by Organization Details LastModified Time None Recorded Advance Directives Directive N: Payers Encounter Date Sequence Insurance Name Policy Number Policy Lugo Covered Member ID Lugo Member ID Guarantor Name 09/22/2021 1 [facility] NET PLAN (MEDICAID HMO) NICOLE Cantu [id number] Zeinab Cantu Notes Date Note Type Note [...] brittaney. Tolu Hurley NP [address], [place], [address], [place] [facility] 09/22/2021 11:27:05 OBGyn Episode No OBEpisode recorded.
--- OUTSIDE RECORDS SUMMARY | 2024-12-13 09:10 | XMS_ITS | Clinical Summary ---
Author Organization [facility] Address [address] [place] [address] Care Team Providers Care Tattoo Designer Name Role Phone Unavailable Primary Care Provider [...] Advance Directives For more information, please contact: [phone] Documents on File Type Date Recorded Patient Sports Coordinator Expl anation Advance Directive and Living Will 03/11/2016 11:14 AM
== END 2024-12-13 09:57 | disposition home or self-care (01) ==
LOC: HO.HMCC 08:46
PROVIDERS: PCP Internal Medicine; Visit Provider Internal Medicine
DX: E11.65 Type 2 diabetes mellitus with hyperglycemia (principal); K52.9 Noninfective gastroenteritis and colitis, unspecified; D68.51 Activated protein C resistance

== ENCOUNTER → 2024-12-13 08:46 | Outpatient (BNVA) | payer OTHER, SELFPAY | PROVIDERS: PCP Internal Medicine; Visit Provider Internal Medicine ==

== ENCOUNTER 2025-01-17 08:15 | Outpatient (AMB) | payer MEDICARE, MEDICAID, SELFPAY ==
--- OUTSIDE RECORDS SUMMARY | 2025-01-17 08:20 | XMS_ITS | Clinical Summary ---
Author Organization [address] [place] [address] [place] [phone] Phone Care Team Providers Care Manager Performance Name Role Phone Jose Estes MD Primary Care Provider [phone] Allergies No known active allergies Medications fluconazole (DIFLUCAN) 150 mg tablet Take 1 tablet by mouth once if needed (yeast infection). Take second tablet 3 days later if symptoms persist. 2 tablet 10/24/2024 Active Encounters Date Type Department Care Team Description 10/24/2024 4:00 PM EST Office Visit Walk-In Clinic - [address] [address] Hari Benitez PA Intertriginous candidiasis [...] - [facility] [address] [place] [address] Dania Bhatti PA [address] [place] [address] Health Maintenance Due Date Last Done Comments [...] patient's age to complete this topic [place] [address] [place] [address] HEALTH PLAN MEDICA[place] - [place] Care Teams Manager Performance Relationship Specialty Start Date End Date Jose Estes MD [address] [place] [address] PCP - General Internal Medicine 09/02/21
--- OUTSIDE RECORDS SUMMARY | 2025-01-17 08:20 | XMS_ITS | Continuity of Care Document ---
Author Organization [facility] Address [address] [place] [address] Care Team Providers Care Crm Consultant Name Role Phone Franklyn MONTOYA, Asma Primary Care Physician Encounter [facility] Date(s): 12/12/24 - 01/11/[address] [id number] Encounter Type: Triage Allergies, Adverse Reactions, [...] 8:46:00 AM EDT, Route to Pharmacy Electronically, [facility]/pharmacy #[id number], Partial fill upon patient requestif [...] Refills, Maintenance, 01/22/23 8:46:00 AM EDT, Tablet, [facility]/pharmacy #[id number], Partial fill upon patient request if the prescription is for a schedule II opioid drug., 175.26, cm, 01/21/23 8:06:00 EDT, Height, 168.7, kg, 01/07/23 13:47:00 EDT, Dry Weight Start Date: 01/22/23 Status: Ordered Quantity: 30.0 Unit: tablet Repeat number: 1 divalproex sodium 500 mg oral tablet, extended release 0 Refills, Maintenance, 12/19/24 2:42:00 PM EDT, Partial fill upon patient request if the prescription is for a schedule II opioid drug. Start Date: 12/19/24 Status: Ordered Repeat number: 1 Eliquis 5 mg oral tablet 1 tablet = 5 mg, By Mouth, 2 times a day, # 60 tablet, 5 Refills, Maintenance, 08/04/24 2:33:00 PM EST, Tablet, Partial fill upon patient request if the prescription is for a schedule II opioid drug. Start Date: 08/04/24 Status: Ordered Quantity: 60.0 Unit: tablet Repeat number: 1 furosemide 40 mg oral tablet Refills 0, Maintenance, 12/19/24 2:42:00 PM EDT, Partial fill upon patient request if the prescription is for a schedule II opioid drug. Start Date: 12/19/24 Status: Ordered Repeat number: 1 glipizide-metformin 5 mg-500 mg oral tablet 0 Refills, Maintenance, 12/19/24 2:42:00 PM EDT, Partial fill upon patient request if the prescription is for a schedule II opioid drug. Start Date: 12/19/24 Status: Ordered Repeat number: 1 Readi-Cat 2 Smoothie Mochaccino 2% oral suspension See Instructions, drink 1st bottle 6 hours before procedure. drink 2nd bottle 90 minutes before procedure., # 2 each, 0 Refills, Maintenance, 01/02/25 10:26:00 PM EDT, [facility]/pharmacy #[id number], Partial fillupon patient request if the prescription is for a schedule II opioid drug., drink 1st bottle 6 hours before procedure. drink 2nd bottle 90 minutes before procedure., 175.26, cm, 12/19/24 14:33:00 EDT, Height, 200.5, kg, 08/04/24 14:22:00 EST, Dry Weight Start Date: 01/02/25 Status: Ordered Quantity: 2.0 Unit: each Repeat number: 1 Problem List Condition Confirmation [...] Team Personnel Name: Kiera Dupont MD Position: [facility] WOOD BOATBUILDER APPRENTICE MD Member Role: [employer] WOOD BOATBUILDER APPRENTICE Physician Address: [address] [place] [address], [address] Telecom: Name: Taylor Adorno RN Position: [facility] RN Member Role: Primary Care Nurse Name: Jose sEtes MD Position: Reference Physician Member Role: PCP Address: [facility] [address] Telecom: Name: Milly Vaz RN Position: [facility] RN Member Role: Primary Care Nurse Name: Kayla Mancera Position: [facility] RN Member Role: Primary Care Nurse Name: Deb Campbell RN Position: [facility] RN Member Role: Primary Care Nurse Name: Cris Harrison RN Position: [facility] RN Member Role: Primary Care Nurse Name: Thao Acuña Position: [facility] PCO Associate Professional Member Role: [employer] Consulting Provider Address: [address] [place] [address] Telecom: Name: Myra Mckenzie RN Position: [facility] RN Member Role: Primary Care Nurse Care Team Related Persons Name: KASSANDRA WILHELM Name: JESÚS WILHELM Insurance Providers Guarantor name: JAMES WILHELM Health Plan Information #: 1 Payer: [employer] Member Number: NA Policy Number: NA Group Number: NA Health Plan Information #: 2 Payer: [place] Member Number: NA Policy Number: NA Group Number: NA
--- OUTSIDE RECORDS SUMMARY | 2025-01-17 08:20 | XMS_ITS | Data Portability ---
Author Organization [place] [facility] Address [address] [place] [id number] Care Team Providers Care Hyperbaric Tech Name Role Phone SAM LADD Primary Care [...] of this patient according to [facility]'s infection prevention protocols. Time On Scene with Patient: 00:35:44 [email or web address] Not available 09/22/2021 11:24:55 Plan of Treatment Reminders Order Date Submit Date Provider Last Modified By Organization Details Last Modified Time Details Appointments None recorded. Lab None recorded. Referral None recorded. Procedures None recorded. Surgeries None recorded. Imaging None recorded. Medication Orders ondansetron 8 mg disintegrat ing tablet 2021 022 [facility]/Pharmacy #[id number], [phone] [place], [address], 11:27:00 Patient TargetsNo targets recorded. Patient Instructions Encounter Date Encounter Id Patient Instructions Last Modified By Organization Details Last Modified Time 09/22/2021 [id number] gastroenteritis: care instructions [email or web address] Not available 09/22/2021 11:26:22 Gastroenteritis: Care Instructions [...] by. Care instructions adapted under license by [facility]. This care instruction is for use with your licensed healthcare professional. If you have questions about a medical condition or this instruction, always ask your healthcare professional. [employer] disclaims any warranty or liability for your use of this information. [email or web address] Not available 09/22/2021 11:26:02 Reason for Referral None Reported. Procedures Surgical History Date Name Laterality Status Provider Name and Address Organization Details Recorded Time excision of cyst of ovary completed Tolu Hurley NP [address], [place], [address], [place] [facility] 09/22/2021 10:47:34 Imaging Results None [...] Social History Question Answer Notes LastModified by Jaypore Details LastModified Time Tobacco Smoking Status Never Smoker Tolu Hurley, PHANI [address], [place], [address], [place] [facility] 09/22/2021 10:47:49 Do You Have An Advance Directive? No [email or web address] Information not available 09/22/2021 What Is Your Code Status? Full Code [email or web address] Information not available 09/22/2021 Within The Past 12 Months, Has It Happened That The Food You Bought Just Didn't Last And You Didn't Have Money To Get More. No [email or web address] Information not available 09/22/2021 Within The Past 12 Months, Have You Worried That Your Food Would Run Out Before You Got Money To Buy More. No [email or web address] Information not available 09/22/2021 Fall Risk: Do You Feel Unsteady When Standing Or Walking? No [email or web address] Information not available 09/22/2021 Excessive Alcohol Or Drug Use No [email or web address] Information not available 09/22/2021 Does This Patient Have A PCP? Yes [email or web address] Information not available 09/22/2021 Sex: Unknown Functional Status Question Answer Note LastModified by Jaypore Details LastModified Time Do you use any illicit or recreational drugs? No [email or web address] Information not available 09/22/2021 Do you or have you ever used any other forms of tobacco or nicotine? No [email or web address] Information not available 09/22/2021 What is your level of alcohol consumption? None [email or web address] Information not available 09/22/2021 Mental Status None recorded. Family History Relationship Description Onset Age of this Age Resolved Age Notes LastModified by Organization Details LastModified Time Father Hypertensive disorder [email or web address] Not available 2021 10:48:10 Medical History Condition Response Coronary Artery Disease N COPD N Hypothyroidism N A-fib N Cancer N Stroke N High Cholesterol N Rheumatoid Arthritis N Kidney Disease N Parkinson's Disease N Diabetes Y CHF N Dementia N Asthma N Pulmonary Embolism N Hypertension Y Osteoporosis N Gynecological HistoryNo gynecological history recorded. Obstetrics History GPAL:G 0 P 0 0 0 0 Past Encounters Encounter ID Performer Location Encounter Start Date Encounter Closed Date Diagnosis/Indication Diagnosis SNOMED-CT Code Diagnosis ICD10 Code Diagnosis Note [id number] Tolu Hurley NP [facility] [address] [place] [address] 09/22/2021 10:42:51 09/25/2021 13:00:14 Post-acute COVID-19 1160161627 U07.1 Viral gastroenteritis 11 [id number] A08.4 Health Concerns Section Related Observation LastModified by Organization Detai ls LastModified Time None Recorded Concern Status LastModified by Organization Details LastModified Time None Recorded Advance Directives Directive N: Payers Insurance Date Sequence Insurance Name Policy Number Policy Lugo Covered Member ID Lugo Member ID Guarantor Name 09/25/2021 1 [facility] NET PLAN (MEDICAID HMO) [employer] Zeinab Cantu [id number] Zeinab Cantu 09/25/2021 1 [facility] PLAN (MEDICAID HMO) [employer] Zeinab Cantu [id number] Zeinab Cantu 09/25/2021 1 [place] Zeinab Cantu [id number] Zeinab Cantu 09/21/2021 1 *SELF PAY* Zeinab Cantu [id number] Zeinab Cantu Notes Date Note Type Note [...] brittaney. Tolu Hurley NP [address], [place], [address], [place] [facility] 09/22/2021 11:27:05 OBGyn Episode No OBEpisode recorded.
--- OUTSIDE RECORDS SUMMARY | 2025-01-17 08:20 | XMS_ITS | Clinical Summary ---
Author Organization [facility] Address [address] [place] [address] Care Team Providers Care Hand Scraper Name Role Phone Unavailable Primary Care Provider [...] Advance Directives For more information, please contact: [phone] Documents on File Type Date Recorded Patient Restaurant Crew Expl anation Advance Directive and Living Will 03/11/2016 11:14 AM
--- NOTE | 2025-01-17 08:32 | MHC.PC.OV ---
Intake Visit Reasons: 3M F/U Allergies kiwi [KIWI] Allergy (Mild, Verified 12/13/24 08:46) HIVES mold [MOLD EXTRACTS*] Allergy (Mild, Verified 12/13/24 08:46) HIVES Medication List - Last Reconciled 01/17/25 by Jose Estes MD ammonium lactate 12% 1 appl See Protocol topical BID 30 days apixaban (Eliquis) 5 mg PO BID 90 days atenolol 50 mg PO DAILY atorvastatin 20 mg PO BEDTIME clozapine 100 mg PO BEDTIME 30 days clozapine 50 mg PO BEDTIME 30 days divalproex ER 1,500 mg (3 x 500 mg) PO BEDTIME 30 days dulaglutide (Trulicity) 1.5 mg (0.5 mL) subcut QWEEK 90 days furosemide 40 mg PO DAILY glipizide-metformin 5-500 mg 2 tabs PO BID 90 days lorazepam 1 mg PO BEDTIME PRN 30 days nystatin 1 appl See Protocol topical BID 30 days trazodone 50 mg PO BEDTIME PRN 30 days Tobacco use date assessed: 12/13/24 Dental Screening Dental Screen Date: 12/13/24 HPI 3M F/U HPI Details History - The patient is a 34-year-old female presenting for follow-up of chronic medical conditions. - History of Hypertension: Currently under control with Atenolol. - Hyperlipidemia: Managed with Atorvastatin. - Bipolar Disorder: Managed with Clozapine and Valproate. - Diabetes Mellitus, Type 2: Reports blood glucose reading of 134 mg/dL. Recent HbA1c was 7.9%, which is an improvement from previous levels. Patient is having difficulty with trulicity as her insurance recently changed to Medicare, we will look into that - Anxiety and Insomnia: Current medications include Lorazepam and Trazodone. Problem List - Hypertension - Hyperlipidemia - Bipolar Disorder - Diabetes Mellitus, Type 2 - Anxiety - Insomnia Patient Instructions - Continue taking current medications as prescribed. - Follow up with gastroenterology practice regarding CT scan . - Monitor blood glucose levels and maintain recommended dietary restrictions, with emphasis on avoiding white flour and sugar. - Contact me if you have any concerns or issues with medication or insurance. - Follow up in three months for re-assessment of current treatment plan. Review of Systems - General: No fever no chills - Neurological: No headaches no dizziness - Ear nose throat: No sore throat no hearing difficulty no ear pain - Cardiovascular: No syncope, no chest pain, no palpitations - Gastrointestinal: No nausea vomiting or diarrhea - Endocrine: No polyuria polydipsia no heat intolerance - Genitourinary: No dysuria , no blood in urine [facility] Medical History Bipolar disorder Factor 5 Leiden mutation, heterozygous Venous stasis Chronic cellulitis Fever Fever of unknown origin Foot swelling Hidradenitis suppurativa Schizoaffective disorder, bipolar type Hypertension, essential Uncontrolled type 2 diabetes mellitus with hyperglycemia Leg edema Obesity, morbid Asthma Seasonal asthma Surgical History History of ovarian cyst History of wisdom tooth extraction Family History Father HTN (hypertension) Diabetes mellitus Mother Afib Maternal Grandfather No problems noted. Maternal Grandmother No problems noted. Paternal Grandmother Breast cancer Paternal Grandfather No problems noted. Sister No problems noted. Social History Household Members: Family Household Members Other:: father [phone] Housing: House Do you presently have visiting nurse or other home services: Yes Unable to assess alcohol history related to: Unknown Alcohol intake: never Comment: 1:1 Patient Tobacco Use Status: Never used Tobacco Tobacco use type: Cigarette Years Smoked: 3 yrs e-Cigarette/Vaping Use: Never Used Second Hand Smoke Exposure: No service: No Current occupational status: employed Sexual orientation: Straight/Heterosexual Cognitive needs: No Hearing needs: No Vision needs: Yes Questionnaire Thrive Questionnaire Date Thrive assessed: 09/27/24 SOLE-7 AMB Questionnaire SOLE-7 Date SOLE - 7 assessed: 09/27/24 (patient declined) Source: Developed by Drs. Ricco Gunter, Lashonda Munroe, Nate Galvin and colleagues, with an educational giovana from [employer]. Physical exam (Primary Care) Tobacco/Smoking Status: Tobacco use Status Tobacco use date assessed 12/13/24 01/17/25 08:32 Patient Tobacco Use Status Never used Tobacco 01/17/25 08:32 Tobacco use type Cigarette 01/17/25 08:32 e-Cigarette/Vaping Use Never Used 01/17/25 08:32 Thrive Assessment: Date of Thrive Assessment Date Thrive assessed 09/27/24 01/17/25 08:32 Telehealth Telehealth Telehealth Platform: [employer] Location of provider rendering services: practice address Location of patient: address on file Patient Identification confirmed using: Name, : Yes Telehealth method: video (attempted) Patient verbally consented to treatment: Yes Patient verbally consented to billing insurance company: Yes Patient informed of any privacy concerns related to visit: Yes Minutes spent on Phone/Video with Pt.: 13 Coding Level of Care Code Tele Est Pt Level 3 (31924) Diagnoses Diabetes 1.5, managed as type 2 E13.9 Hypertension, essential I10 Generalized anxiety disorder F41.1 Anxiety disorder type: generalized anxiety disorder Moderate persistent asthma without complication J45.40 Asthma complication type: uncomplicated Lipid disorder E78.9 Schizoaffective disorder, bipolar type F25.0 Factor 5 Leiden mutation, heterozygous D68.51 Assessment & Plan Assessment & Plan (1) Diabetes 1.5, managed as type 2: Code(s): E13.9 - Other specified diabetes mellitus without complications Category: Medical (2) Hypertension, essential: Code(s): I10 - Essential (primary) hypertension Category: Medical (3) Anxiety disorder: Code(s): F41.9 - Anxiety disorder, unspecified Category: Medical Qualifiers: Anxiety disorder type: generalized anxiety disorder Qualified Code(s): F41.1 - Generalized anxiety disorder (4) Asthma, moderate persistent: Code(s): J45.40 - Moderate persistent asthma, uncomplicated Category: Medical Qualifiers: Asthma complication type: uncomplicated Qualified Code(s): J45.40 - Moderate persistent asthma, uncomplicated (5) Lipid disorder: Code(s): E78.9 - Disorder of lipoprotein metabolism, unspecified Category: Medical (6) Schizoaffective disorder, bipolar type: Code(s): F25.0 - Schizoaffective disorder, bipolar type Category: Medical (7) Factor 5 Leiden mutation, heterozygous: Code(s): D68.51 - Activated protein C resistance Category: Medical Plan History - The patient is a 34-year-old female presenting for follow-up of chronic medical conditions. - History of Hypertension: Currently under control with Atenolol. - Hyperlipidemia: Managed with Atorvastatin. - Bipolar Disorder: Managed with Clozapine and Valproate. - Diabetes Mellitus, Type 2: Reports blood glucose reading of 134 mg/dL. Recent HbA1c was 7.9%, which is an improvement from previous levels. Patient is having difficulty with trulicity as her insurance recently changed to Medicare, we will look into that - Anxiety and Insomnia: Current medications include Lorazepam and Trazodone. Problem List - Hypertension - Hyperlipidemia - Bipolar Disorder - Diabetes Mellitus, Type 2 - Anxiety - Insomnia Patient Instructions - Continue taking current medications as prescribed. - Follow up with gastroenterology practice regarding CT scan . - Monitor blood glucose levels and maintain recommended dietary restrictions, with emphasis on avoiding white flour and sugar. - Contact me if you have any concerns or issues with medication or insurance. - Follow up in three months for re-assessment of current treatment plan. Medications: Refilled dulaglutide (Trulicity) 1.5 mg (0.5 mL) subcut QWEEK 90 days 6.5 mL 1RF
== END 2025-01-17 08:54 | disposition home or self-care (01) ==
LOC: HO.HMCC 08:15
PROVIDERS: PCP Internal Medicine; Visit Provider Internal Medicine
DX: I10 Essential (primary) hypertension (principal); E13.9 Other specified diabetes mellitus without complications; F25.0 Schizoaffective disorder, bipolar type; F41.1 Generalized anxiety disorder; J45.40 Moderate persistent asthma, uncomplicated; E78.9 Disorder of lipoprotein metabolism, unspecified; D68.51 Activated protein C resistance

== ENCOUNTER → 2025-01-17 08:15 | Outpatient (BNVA) | payer MEDICARE, SELFPAY | PROVIDERS: PCP Internal Medicine; Visit Provider Internal Medicine ==

== ENCOUNTER 2025-04-18 08:27 | Outpatient (AMB) | payer MEDICARE, MEDICAID, SELFPAY ==
--- OUTSIDE RECORDS SUMMARY | 2025-04-18 08:34 | XMS_ITS | Clinical Summary ---
Author Organization [facility] Address [address] [place] [address] Care Team Providers Care Roll Handler Name Role Phone Unavailable Primary Care Provider [...] 88 04/29/2016 11:06 AM EDT Temperature 37.2 C (98.9 F) 04/29/2016 11:06 AM EDT Respiratory Rate 18 04/29/2016 11:06 AM EDT [...] (P ap Smear) 2012 Influenza Vaccine (#1) 2025 Pneumococcal Vaccine Aged Out No long er eligible based on patient's age to complete this topic RSV Ped < 20 months Aged Out No longe r eligible based on patient's age to complete this topic Advance Directives For more information, please contact: [phone] Documents on File Type Date Recorded Patient General Farm Hand Expl anation Advance Directive and Living Will 03/11/2016 11:14 AM
--- OUTSIDE RECORDS SUMMARY | 2025-04-18 08:34 | XMS_ITS | Clinical Summary ---
Author Organization [address] [place] [address] [place] [phone] Phone Care Team Providers Care Education General Manager Name Role Phone Jose Estes MD Primary Care Provider [phone] Allergies No known active allergies Medications fluconazole (DIFLUCAN) 150 mg tablet Take 1 tablet by mouth once if needed (yeast infection). Take second tablet 3 days later if symptoms persist. 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 Morbid obesity (CMS/HCC V24, CMS/HCC V28) 02/10/2015 DX:Morbid obesity ([facility]) Allergic rhinitis 01/22/2015 DX:Allergic rh initis Heterozygous factor V Leiden mutation (CMS/HCC V24) 12/17/2014 DX:Heterozygous factor V Lei den mutation ([facility]) Family History Medical History Relation Name Comments [...] 92 10/24/2024 4:06 PM EST Temperature 36.6 C (97.9 F) 10/24/2024 4:06 PM EST Respiratory Rate - - Oxygen Saturation 97% [...] 5 Years) and At-Risk Patients (6 to 49 Years) (1 of 2 - PCV) 2010 Cervical Cancer Screening: Pap Smear 2012 Cholesterol Screening (Lipid Panel) 2022 HIV Screening 2022 Hepatitis C Screening 2022 Social Influencers of Health Screening 2022 COVID-19 Vaccine ( season) 2024 01/17/2021, 12/27/2020 Hypertension/CHF/CAD Annual BMP Blood Test 07/09/2024 Depression Screening 09/05/2024 Influenza Vaccine (#1) 2025 06/15/2016, 2014 DTaP,Tdap,and Td Vaccines (9 - Td or Tdap) 04/29/2027 04/29/2017, 12/20/2006, 10/13/2001, Additional history exists HIB Vaccines Completed 11/06/1992, 12/1992, 02/07/1992, Additional history exists Varicella Vaccines Aged Out 1993 No longer eligible based on patient's age to complete this topic MMR Vaccines Completed 10/16/1996, 11/06/1992 IPV Vaccines Completed 02/06/1997, 0612/1992, 11/06/1992, Additional history exists Hepatitis B Vaccines [...] patient's age to complete this topic [place] [address] [place] [address] PLAN MEDICAID - [place] Care Teams Education General Manager Relationship Specialty Start Date End Date Jose Estes MD [address] [place] [address] PCP - General Internal Medicine 09/02/21
--- NOTE | 2025-04-18 10:56 | A.OFFPC_ITS ---
Intake Visit Reasons: 4M F/up- A1C needed Allergies kiwi (KIWI) Allergy (Mild, Verified 12/13/24 08:46) HIVES mold (MOLD EXTRACTS*) Allergy (Mild, Verified 12/13/24 08:46) HIVES Medication List - Last Reconciled 04/18/25 by Jose Estes MD ammonium lactate 12% 1 appl See Protocol topical BID 30 days apixaban (Eliquis) 5 mg PO BID 90 days atenolol 50 mg PO DAILY atorvastatin 20 mg PO BEDTIME clozapine 100 mg PO BEDTIME 30 days clozapine 50 mg PO BEDTIME 30 days divalproex ER 1,500 mg (3 x 500 mg) PO BEDTIME 30 days dulaglutide (Trulicity) 1.5 mg (0.5 mL) subcut QWEEK 90 days furosemide 40 mg PO DAILY glipizide-metformin 5-500 mg 2 tabs PO BID 90 days lorazepam 1 mg PO BEDTIME PRN 30 days nystatin 1 appl See Protocol topical BID 30 days trazodone 50 mg PO BEDTIME PRN 30 days Tobacco use date assessed: 12/13/24 Dental Screening Dental Screen Date: 12/13/24 HPI 4M F/up- A1C needed HPI Details Chief Complaint The patient presents for routine care and follow-up management of diabetes, hypertension, and medication regimen. History of Present Illness The patient is a 34-year-old female presenting for a regular follow-up appointment to manage multiple chronic conditions. Diabetes Mellitus Type 2: - Diagnosed previously, exact duration u nspecified. - Reports good control with current bloo d glucose monitoring; morning fasting results reported as 138. - Regular use of Glipizide and Metformin . - No reports of blood glucose levels exc eeding 200. Hypertension: - Diagnosed previously, exact duration u nspecified. - Currently managed with Atenolol 50 mg. - No recent blood pressure measurements reported during the conversation. Bipolar Affective Disorder: - Continues psychiatric follow-up appoin tments every two weeks. - Currently managed with Depakote, Cloza pine, Trazodone, and Lorazepam. - Reports mood stabilization and no curr ent depressive episodes. Medical History: - Diabetes Mellitus Type 2 - Essential Hypertension - Seasonal Asthma - Sleep Apnea - Chronic Stasis dermatiits LE - Bipolar Affective Disorder - Rheumatoid Factor 5 Latent Mutation (h eterozygous) - Lipid Disorder Medications: - Atenolol 50 mg for hypertension - Eliquis (indication unspecified) - Atorvastatin for lipid management - Glipizide and Metformin for diabetes m anagement - Depakote for bipolar disorder - Clozapine (100 mg and 50 mg) for bipol ar disorder - Trazodone (dose unspecified) - Lorazepam (dose unspecified) Social History: - Regular psychiatric follow-up every tw o weeks. - Blood sugar monitoring using [employer]. - Familial involvement in health managem ent, evidenced by conversation with father in back ground for appointments and information gathering. Problem List - Diabetes Mellitus Type 2 - Essential Hypertension - Bipolar Affective Disorder - Hyperlipidemia Patient Instructions - Continue current medication regimen fo r all conditions. - Perform blood pressure checks as advis ed. - Monitor blood glucose levels regularly , aiming for fasting measures. - Complete ordered labs before the next appointment to assess diabetes management. - Follow up on appointment 3-4 M . Review of Systems - General: No fever no chills - Neurological: No headaches no dizziness - Ear nose throat: No sore throat no hearing difficulty no ear pain - Cardiovascular: No syncope, no chest pain, no palpitations - Gastrointestinal: No nausea vomiting or diarrhea [facility] Medical History Bipolar disorder Factor 5 Leiden mutation, heterozygous Venous stasis Chronic cellulitis Fever Fever of unknown origin Foot swelling Hidradenitis suppurativa Schizoaffective disorder, bipolar type Hypertension, essential Uncontrolled type 2 diabetes mellitus with hyperglycemia Leg edema Obesity, morbid Asthma Seasonal asthma Surgical History History of ovarian cyst History of wisdom tooth extraction Family History Father HTN (hypertension) Diabetes mellitus Mother Afib Maternal Grandfather No problems noted. Maternal Grandmother No problems noted. Paternal Grandmother Breast cancer Paternal Grandfather No problems noted. Sister No problems noted. Social History Household Members: Family Household Members Other:: father [phone] Housing: House Do you presently have visiting nurse or other home services: Yes Unable to assess alcohol history related to: Unknown Alcohol intake: never Comment: 1:1 Patient Tobacco Use Status: Never used Tobacco Tobacco use type: Cigarette Years Smoked: 3 yrs e-Cigarette/Vaping Use: Never Used Second Hand Smoke Exposure: No service: No Current occupational status: employed Sexual orientation: Straight/Heterosexual Cognitive needs: No Hearing needs: No Vision needs: Yes Questionnaire Thrive Questionnaire Date Thrive assessed: 09/27/24 SOLE-7 AMB Questionnaire SOLE-7 Date SOLE - 7 assessed: 09/27/24 (patient declined) Source: Developed by Drs. Ricco Gunter, Lashonda Munroe, Nate Galvin and colleagues, with an educational giovana from [employer]. Physical exam (Primary Care) Tobacco/Smoking Status: Tobacco use Status Tobacco use date assessed 12/13/24 04/18/25 10:57 Patient Tobacco Use Status Never used Tobacco 04/18/25 10:57 Tobacco use type Cigarette 04/18/25 10:57 e-Cigarette/Vaping Use Never Used 04/18/25 10:57 Thrive Assessment: Date of Thrive Assessment Date Thrive assessed 09/27/24 04/18/25 10:57 Telehealth Telehealth Telehealth Platform: [facility] Location of provider rendering services: practice address Location of patient: address on file Patient Identification confirmed using: Name, : Yes Telehealth method: voice only Patient verbally consented to treatment: Yes Patient verbally consented to billing insurance company: Yes Patient informed of any privacy concerns related to visit: Yes Coding Level of Care Code Tele Est Pt Level 4 (53820) Diagnoses Diabetes 1.5, managed as type 2 E13.9 Hypertension, essential I10 Generalized anxiety disorder F41.1 Anxiety disorder type: generalized anxiety disorder Moderate persistent asthma without complication J45.40 Asthma complication type: uncomplicated Lipid disorder E78.9 Schizoaffective disorder, bipolar type F25.0 Factor 5 Leiden mutation, heterozygous D68.51 Time Spent (min) 30 Comment face to face / coordination of care / chart review Assessment & Plan Assessment & Plan (1) Diabetes 1.5, managed as type 2: Code(s): E13.9 - Other specified diabetes mellitus without complications Category: Medical (2) Hypertension, essential: Code(s): I10 - Essential (primary) hypertension Category: Medical (3) Anxiety disorder: Code(s): F41.9 - Anxiety disorder, unspecified Category: Medical Qualifiers: Anxiety disorder type: generalized anxiety disorder Qualified Code(s): F41.1 - Generalized anxiety disorder (4) Asthma, moderate persistent: Code(s): J45.40 - Moderate persistent asthma, uncomplicated Category: Medical Qualifiers: Asthma complication type: uncomplicated Qualified Code(s): J45.40 - Moderate persistent asthma, uncomplicated (5) Lipid disorder: Code(s): E78.9 - Disorder of lipoprotein metabolism, unspecified Category: Medical (6) Schizoaffective disorder, bipolar type: Code(s): F25.0 - Schizoaffective disorder, bipolar type Category: Medical (7) Factor 5 Leiden mutation, heterozygous: Code(s): D68.51 - Activated protein C resistance Category: Medical Plan Chief Complaint The patient presents for routine care and follow-up management of diabetes, hypertension, and medication regimen. History of Present Illness The patient is a 34-year-old female presenting for a regular follow-up appointment to manage multiple chronic conditions. Diabetes Mellitus Type 2: - Diagnosed previously, exact duration unspecified. - Reports good control with current blood glucose monitoring; morning fasting results reported as 138. - Regular use of Glipizide and Metformin. - No reports of blood glucose levels exceeding 200. Hypertension: - Diagnosed previously, exact duration unspecified. - Currently managed with Atenolol 50 mg. - No recent blood pressure measurements reported during the conversation. Bipolar Affective Disorder: - Continues psychiatric follow-up appointments every two weeks. - Currently managed with Depakote, Clozapine, Trazodone, and Lorazepam. - Reports mood stabilization and no current depressive episodes. Medical History: - Diabetes Mellitus Type 2 - Essential Hypertension - Seasonal Asthma - Sleep Apnea - Chronic Stasis dermatiits LE - Bipolar Affective Disorder - Rheumatoid Factor 5 Latent Mutation (heterozygous) - Lipid Disorder Medications: - Atenolol 50 mg for hypertension - Eliquis (indication unspecified) - Atorvastatin for lipid management - Glipizide and Metformin for diabetes management - Depakote for bipolar disorder - Clozapine (100 mg and 50 mg) for bipolar disorder - Trazodone (dose unspecified) - Lorazepam (dose unspecified) Social History: - Regular psychiatric follow-up every two weeks. - Blood sugar monitoring using [employer]. - Familial involvement in health management, evidenced by conversation with father in back ground for appointments and information gathering. Problem List - Diabetes Mellitus Type 2 - Essential Hypertension - Bipolar Affective Disorder - Hyperlipidemia Patient Instructions - Continue current medication regimen for all conditions. - Perform blood pressure checks as advised. - Monitor blood glucose levels regularly, aiming for fasting measures. - Complete ordered labs before the next appointment to assess diabetes management. - Follow up on appointment 3-4 M . Orders: Orders Complete Blood Count Auto Diff 2 Months D68.51 - Activated protein C resistance, E13.9 - Other specified diabetes mellitus without complications, E78.9 - Disorder of lipoprotein metabolism, unspecified, I10 - Essential (primary) hypertension Comprehensive Met. Panel 2 Months D68.51 - Activated protein C resistance, E13.9 - Other specified diabetes mellitus without complications, E78.9 - Disorder of lipoprotein metabolism, unspecified, I10 - Essential (primary) hypertension LDL Cholesterol Direct 2 Months D68.51 - Activated protein C resistance, E13.9 - Other specified diabetes mellitus without complications, E78.9 - Disorder of lipoprotein metabolism, unspecified, I10 - Essential (primary) hypertension Microalbumin, Random (w Creat) 2 Months D68.51 - Activated protein C resistance, E13.9 - Other specified diabetes mellitus without complications, E78.9 - Disorder of lipoprotein metabolism, unspecified, I10 - Essential (primary) hypertension Hemoglobin A1c 2 Months D68.51 - Activated protein C resistance, E13.9 - Other specified diabetes mellitus without complications, E78.9 - Disorder of lipoprotein metabolism, unspecified, I10 - Essential (primary) hypertension
== END 2025-04-18 09:32 | disposition home or self-care (01) ==
LOC: HO.HMCC 08:27
PROVIDERS: PCP Internal Medicine; Visit Provider Internal Medicine
DX: E13.9 Other specified diabetes mellitus without complications (principal); I10 Essential (primary) hypertension; F41.1 Generalized anxiety disorder; J45.40 Moderate persistent asthma, uncomplicated; E78.9 Disorder of lipoprotein metabolism, unspecified; F25.0 Schizoaffective disorder, bipolar type; D68.51 Activated protein C resistance

== ENCOUNTER 2025-06-04 13:28 | Outpatient (AMB) | payer MEDICARE, MEDICAID, SELFPAY ==
[2025-06-04 13:36] VITALS: BP 130/98; PULSE 95; RESP 16; TEMP 37.1; O2SAT 96; BMI 62.2
--- NOTE | 2025-06-04 13:36 | MHC.PC.OV ---
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 Accompanied by: Self / Same As Patient Allergies kiwi (KIWI) Allergy (Mild, Verified 12/13/24 08:46) HIVES mold (MOLD EXTRACTS*) Allergy (Mild, Verified 12/13/24 08:46) HIVES Medication List - Last Reconciled 06/04/25 by Jose Estes MD ammonium lactate 12% 1 appl See Protocol topical BID 30 days apixaban (Eliquis) 5 mg PO BID 90 days atenolol 50 mg PO DAILY atorvastatin 20 mg PO BEDTIME clozapine 100 mg PO BEDTIME 30 days clozapine 50 mg PO BEDTIME 30 days divalproex ER 1,500 mg (3 x 500 mg) PO BEDTIME 30 days dulaglutide (Trulicity) 1.5 mg (0.5 mL) subcut QWEEK 90 days furosemide 40 mg PO DAILY glipizide-metformin 5-500 mg 2 tabs PO BID 90 days lorazepam 1 mg PO BEDTIME PRN 30 days nystatin 1 appl See Protocol topical BID 30 days trazodone 50 mg PO BEDTIME PRN 30 days Tobacco use date assessed: 06/04/25 Dental Screening Dental Screen Date: 06/04/25 Did you have a dental visit in the last 12 months?: Yes Did you have a dental problem in the last 6 months where you did not have access to dental care?: No Was dental information given to patient?: Patient has dentist HPI Annual visit/ no active ins see oa HPI Details PE The patient is a 34-year-old female presenting with hypertension, blood glucose monitoring issues, and chronic diarrhea. Hypertension: - Previously elevated blood pressures, now improved to 130/98 mmHg. - Current numerical diastolic value still slightly elevated compared to ideal levels. Diabetes Mellitus Type 2: - Reports low blood sugar levels due to non-compliance with blood glucose self-monitoring. - Current medication regimen includes Trulicity and a glipizide-metformin combination. Gastroesophageal Reflux Disease (suspected): - Symptoms of acid reflux reported at night with an episode of waking with nausea but no vomiting. Chronic Diarrhea: - Persistent diarrhea, occurring 1-2 times per day with variable colors, ongoing since last year's hospitalization. - History of a C. diff diagnosis. - Negative stool study done in the past month. Through Gastroenterology [facility] - Patient expresses fear of colonoscopy in previous consultations. 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 - Mother visits once weekly; parents are . - Has an older sister currently attending school full-time. Family History: - Father's medication for anticoagulation (possible warfarin) Health Maintenance - Awareness of impending termination of telemedicine and its legislative implications. [place] of Care - Coordination of care with Dr. Jose D Crisostomo and psychiatrist Ken Conklin at [facility] on [facility]. - To request pending lab results from [facility] on [facility]. - Follow-up with gastroenterology at [facility]. Medications - Eliquis - Atenolol 50 mg - Atorvastatin 20 mg - Trulicity 1.5 mg - Glipizide-Metformin 5-500, 2 tablets twice daily - Furosemide 40 mg - psychiatric medications Patient Instructions - Ensure regular blood glucose monitoring. - Consider managing hypertension through lifestyle modifications. - Follow-up with gastroenterology for stool studies and possible alternative assessments like Cologuard. - Observe the frequency of reflux symptoms and report if they persist. - Maintain scheduled follow-ups, adjust based on the availability of telemedicine. Follow-up 4 months Review of Systems - General: No fever no chills - Neurological: No headaches no dizziness - Ear nose throat: No sore throat no hearing difficulty no ear pain - Cardiovascular: No syncope, no chest pain, no palpitations Physical Exam [limited due to morbid obesity] General: Cooperative, healthy appearing, comfortable, no acute distress Orientation: Patient oriented x3 Head: Normal to inspection Ears: Within normal limit visually Nose: Normal external nose present Face and sinus: Normal facial exam Eyes: Appearance normal, extraocular movement intact pupils reactive Neck: Normal visual inspection and supple Respiratory: Normal respiratory effort and able to speak in complete sentences. Clear to auscultation, no stridor Cardiovascular: S1 and S2 RRR GI: Denies any pain at this time Skin: Turgor normal, no acute findings Neuro: Patient oriented x3, motor intact Extremities: Normal to inspection, no edema lower extremity . [facility] Medical History Bipolar disorder Factor 5 Leiden mutation, heterozygous Venous stasis Chronic cellulitis Fever Fever of unknown origin Foot swelling Hidradenitis suppurativa Schizoaffective disorder, bipolar type Hypertension, essential Uncontrolled type 2 diabetes mellitus with hyperglycemia Leg edema Obesity, morbid Asthma Seasonal asthma Surgical History History of ovarian cyst History of wisdom tooth extraction Family History Father HTN (hypertension) Diabetes mellitus Mother Afib Maternal Grandfather No problems noted. Maternal Grandmother No problems noted. Paternal Grandmother Breast cancer Paternal Grandfather No problems noted. Sister No problems noted. Social History Household Members: Family Household Members Other:: father [phone] Housing: House Do you presently have visiting nurse or other home services: Yes Alcohol intake: never Comment: 1:1 Patient Tobacco Use Status: Never used Tobacco Tobacco use type: Cigarette Years Smoked: 3 yrs e-Cigarette/Vaping Use: Never Used Second Hand Smoke Exposure: No service: No Current occupational status: employed Sexual orientation: Straight/Heterosexual Cognitive needs: No Hearing needs: No Vision needs: Yes Questionnaire PHQ-9 Over the last 2 weeks, how often have you been bothered by any of the following problems? 1. Little interest or pleasure in doing things: not at all 2. Feeling down, depressed, or hopeless: not at all 3. Trouble falling or staying asleep, or sleeping too much: not at all 4. Feeling tired or having little energy: several days 5. Poor appetite or overeating: several days 6. Feeling bad about yourself - or that you are a failure or have let yourself or your family down: several days 7. Trouble concentrating on things, such as reading the newspaper or watching television: not at all 8. Moving or speaking so slowly that other people could have noticed. Or the opposite - being so fidgety or restless that you have been moving around a lot more than usual: not at all 9. Thoughts that you would be better off or of hurting yourself in some way: not at all Total score: 3 Depression Screening Interpretation: Negative Depression Screening Done: Yes 32712 - PHQ-9 Billing: Yes Source: Developed by Drs. Ricco Gunter, Lashonda Munroe, Nate Galvin and colleagues, with an educational giovana from [employer]. Thrive Questionnaire Date Thrive assessed: 05/28/25 I am a: Patient What is your living situation today?: I have a place to live, but I am worried about losing it in the future Within the past 12 months, did the food you bought not last and you didn't have the money to get more?: Sometimes True Within the past 12 months, did you worry whether your food would run out before you got money to buy more?: Often true Do you have trouble paying for medicines?: No Do you have trouble getting transportation to medical appointments?: No Do you have trouble paying your heating and electricity bill?: No Do you have trouble taking care of your child, family member or friend?: No Do you have trouble with day-to-day activities such as bathing, preparing meals, shopping, managing finances, etc.?: No Are you currently unemployed and looking for a job?: No Are you interested in more education?: No Please select the resources that you would like help with: None Currently or been in a relationship where the following occur: No concerns reported THRIVE Score: 3 AUDIT C Alcohol Use Questionnaire (AUDIT-C) 1. How often do you have a drink containing alcohol?: Never 2. How many drinks containing alcohol do you have on a typical day when you are drinking?: 1 or 2 3. How often do you have six or more drinks on one occasion?: Never Total Score: 0 SOLE-7 AMB Questionnaire SOLE-7 Date SOLE - 7 assessed: 09/27/24 (patient declined) Feeling nervous, anxious, or on edge: 3 = Nearly every day Not being able to stop or control worryin = More than half the days Worrying too much about different things: 1 = Several days Trouble relaxin = Not at all Being so restless that it is hard to sit still: 0 = Not at all Becoming easily annoyed or irritable: 0 = Not at all Feeling afraid as if something awful might happen: 1 = Several days Total SOLE-7 score (0-4 normal; 5-9 mild; 10-14 moderate; 15-21 severe): 7 Source: Developed by Drs. Ricco Gunter, Lashonda Munroe, Nate Galvin and colleagues, with an educational giovana from [employer]. SOLE-7 Assessment Billing SOLE-7 Assessment Tool: SOLE-7 Assessment 47246 Physical exam (Primary Care) Vital Signs: Last Vital Signs Temp 98.8 F 06/04/25 13:36 Pulse 95 06/04/25 13:36 Resp 16 06/04/25 13:36 BP 130/98 H 06/04/25 13:36 Pulse Ox 96 06/04/25 13:36 Oxygen Delivery Method Room Air 06/04/25 13:36 Tobacco/Smoking Status: Tobacco use Status Tobacco use date assessed 06/04/25 06/04/25 13:42 Patient Tobacco Use Status Former Tobacco user 06/04/25 13:42 Tobacco use type Cigarette 06/04/25 13:42 e-Cigarette/Vaping Use Never Used 06/04/25 13:42 PHQ-9: PHQ-9 Score PHQ-9: Total score 3 06/04/25 13:42 Depression Screening Interpretation: Negative Thrive Assessment: Date of Thrive Assessment Date Thrive assessed 05/28/25 06/04/25 13:42 Currently or been in a relationship where the following occur: No concerns reported Coding Level of Care Code Est Pt Level 4 (84514) Est Pt Prev Care 18-39y(88211) Diagnoses Encounter for general adult medical examination with abnormal findings Z00.01 Diabetes 1.5, managed as type 2 E13.9 Chronic diarrhea K52.9 Factor 5 Leiden mutation, heterozygous D68.51 Lipid disorder E78.9 Hypertension, essential I10 Schizoaffective disorder, bipolar type F25.0 Additional Codes PHQ-9 - 57099 - PHQ-9 Billing: Yes ([id number]) SOLE-7 Assessment Billing - SOLE-7 Assessment Tool: SOLE-7 Assessment 49115 ([id number]) Assessment & Plan Assessment & Plan (1) Encounter for general adult medical examination with abnormal findings: Code(s): Z00.01 - Encounter for general adult medical examination with abnormal findings Category: Medical (2) Diabetes 1.5, managed as type 2: Code(s): E13.9 - Other specified diabetes mellitus without complications Category: Medical (3) Chronic diarrhea: Code(s): K52.9 - Noninfective gastroenteritis and colitis, unspecified Category: Medical (4) Factor 5 Leiden mutation, heterozygous: Code(s): D68.51 - Activated protein C resistance Category: Medical (5) Lipid disorder: Code(s): E78.9 - Disorder of lipoprotein metabolism, unspecified Category: Medical (6) Hypertension, essential: Code(s): I10 - Essential (primary) hypertension Category: Medical (7) Schizoaffective disorder, bipolar type: Code(s): F25.0 - Schizoaffective disorder, bipolar type Category: Medical Plan PE The patient is a 34-year-old female presenting with hypertension, blood glucose monitoring issues, and chronic diarrhea. Hypertension: - Previously elevated blood pressures, now improved to 130/98 mmHg. - Current numerical diastolic value still slightly elevated compared to ideal levels. Diabetes Mellitus Type 2: - Reports low blood sugar levels due to non-compliance with blood glucose self-monitoring. - Current medication regimen includes Trulicity and a glipizide-metformin combination. Gastroesophageal Reflux Disease (suspected): - Symptoms of acid reflux reported at night with an episode of waking with nausea but no vomiting. Chronic Diarrhea: - Persistent diarrhea, occurring 1-2 times per day with variable colors, ongoing since last year's hospitalization. - History of a C. diff diagnosis. - Negative stool study done in the past month. Through Gastroenterology [facility] - Patient expresses fear of colonoscopy in previous consultations. 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 - Mother visits once weekly; parents are . - Has an older sister currently attending school full-time. Family History: - Father's medication for anticoagulation (possible warfarin) Health Maintenance - Awareness of impending termination of telemedicine and its legislative implications. [place] of Care - Coordination of care with Dr. Jose D Crisostomo and psychiatrist Ken Conklin at [facility] on [facility]. - To request pending lab results from [facility] on [facility]. - Follow-up with gastroenterology at [facility]. Medications - Eliquis - Atenolol 50 mg - Atorvastatin 20 mg - Trulicity 1.5 mg - Glipizide-Metformin 5-500, 2 tablets twice daily - Furosemide 40 mg - psychiatric medications Patient Instructions - Ensure regular blood glucose monitoring. - Consider managing hypertension through lifestyle modifications. - Follow-up with gastroenterology for stool studies and possible alternative assessments like Cologuard. - Observe the frequency of reflux symptoms and report if they persist. - Maintain scheduled follow-ups, adjust based on the availability of telemedicine. Follow-up 4 months
--- OUTSIDE RECORDS SUMMARY | 2025-06-04 14:44 | XMS_ITS | Clinical Summary ---
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
--- OUTSIDE RECORDS SUMMARY | 2025-06-04 14:44 | XMS_ITS | Clinical Summary ---
Author Organization [address] [place] [address] [place] [phone] Phone Care Team Providers Care Circle Beveler Name Role Phone Jose Estes MD Primary Care Provider [phone] Allergies No known active allergies Medications fluconazole [...] (CMS/HCC V24, CMS/HCC V28) 02/10/2015 DX:Morbid obesity (FORMERLY [facility]) Allergic rhinitis 01/22/2015 DX:Allergic rh initis Heterozygous factor V Leiden mutation (CMS/HCC V24) 12/17/2014 DX:Heterozygous factor V Lei den mutation (FORMERLY [facility]) Family History Medical History Relation Name Comments [...] 2022 Social Influencers of Health Screening 2022 Hypertension/CHF/CAD Annual BMP Blood Test 07/09/2024 Depression Screening 09/05/2024 COVID-19 Vaccine ( season) 2025 01/17/2021, 12/27/2020 Influenza Vaccine (#1) 2025 06/15/2016, 2014 DTaP,Tdap,and Td Vaccines (9 - Td or Tdap) 04/29/2027 04/29/2017, 12/20/2006, 10/13/2001, Additional history exists RSV Immunization Adult Patients (1 - 1-dose 75+ series) 2066 HIB Vaccines Completed 11/06/1992, 12/1992, 02/07/1992, Additional [...] patient's age to complete this topic [place] [address] [place] [address] PLAN MEDICAID - [place] Care Teams Circle Beveler Relationship Specialty Start Date End Date Jose Estes MD [address] [place] [address] PCP - General Internal Medicine 09/02/21
== END 2025-06-04 13:59 | disposition home or self-care (01) ==
PROVIDERS: PCP Internal Medicine; Visit Provider Internal Medicine
DX: Z00.01 Encounter for general adult medical examination with abnormal findings (principal); E13.9 Other specified diabetes mellitus without complications; F25.0 Schizoaffective disorder, bipolar type; K52.9 Noninfective gastroenteritis and colitis, unspecified; D68.51 Activated protein C resistance; E78.9 Disorder of lipoprotein metabolism, unspecified; I10 Essential (primary) hypertension

== ENCOUNTER → 2025-06-04 13:28 | Outpatient (BNVA) | payer OTHER, SELFPAY | PROVIDERS: PCP Internal Medicine; Visit Provider Internal Medicine | DX: Z00.01 Encounter for general adult medical examination with abnormal findings (principal); I10 Essential (primary) hypertension; K52.9 Noninfective gastroenteritis and colitis, unspecified; E66.01 Morbid (severe) obesity due to excess calories; E13.9 Other specified diabetes mellitus without complications; D68.51 Activated protein C resistance; E78.9 Disorder of lipoprotein metabolism, unspecified; F25.0 Schizoaffective disorder, bipolar type; Z68.44 Body mass index [BMI] 60.0-69.9, adult | CPT/HCPCS: 96127; 99395 ==

== ENCOUNTER → 2025-07-16 23:59 | Outpatient (BNV) | payer OTHER, SELFPAY | PROVIDERS: PCP Internal Medicine; Visit Provider Internal Medicine | DX: E66.01 Morbid (severe) obesity due to excess calories (principal); E08.21 Diabetes mellitus due to underlying condition with diabetic nephropathy | CPT/HCPCS: G0180 ==

== ENCOUNTER 2025-07-25 08:25 | Outpatient (AMB) | payer MEDICARE, MEDICAID, SELFPAY ==
--- OUTSIDE RECORDS SUMMARY | 2025-07-25 09:07 | XMS_ITS | Clinical Summary ---
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
--- OUTSIDE RECORDS SUMMARY | 2025-07-25 09:07 | XMS_ITS | Data Portability ---
Author Organization [place] [facility] Address [address] [place] [id number] Care Team Providers Care Medical Lab Director Name Role Phone SAM LADD Primary Care Provider [phone] Assessment Encounter Date Assessment Date Assessment LastModified [...] of this patient according to [facility]'s infection prevention protocols. Time On Scene with Patient: 00:35:44 [email or web address] Not available 09/22/2021 11:24:55 Plan of Treatment Reminders Order Date Submit Date Provider Last Modified By Organization Details Last Modified Time Details Appointments None recorded. Lab None recorded. Referral None recorded. Procedures None recorded. Surgeries None recorded. Imaging None recorded. Medication Orders ondansetron 8 mg disintegrat ing tablet 2021 022 [facility]/Pharmacy #[id number], [phone] [place], [address], 11:27:00 Patient TargetsNo targets recorded. Patient Instructions Encounter Date Encounter Id Patient Instructions Last Modified By Organization Details Last Modified Time 09/22/2021 [id number] gastroenteritis: care instructions [email or web address] Not available 09/22/2021 11:26:22 Gastroenteritis: Care Instructions [...] check your refrigerator. It should be between 34 F and 40 F. Defrost meats in the refrigerator or microwave, [...] by. Care instructions adapted under license by [facility]. This care instruction is for use with your licensed healthcare professional. If you have questions about a medical condition or this instruction, always ask your healthcare professional. [employer] disclaims any warranty or liability for your use of this information. [email or web address] Not available 09/22/2021 11:26:02 Reason for Referral None Reported. Procedures Surgical History Date Name Laterality Status Provider Name and Address Organization Details Recorded Time excision of cyst of ovary completed Tolu Hurley NP [address], [place], [address], [place] - [facility] 09/22/2021 10:47:34 Imaging Results [...] t Available Vitals Date Recorded Oxygen saturation Heart rate Respiratory rate Body temperature Systolic blood pressure Provider Name and Address Organization Details Last Updated DateTime 2 98 % 78 /min 18 /min 97.2 [degF] 108 mm[Hg] Not Available [facility] 2 10:51:01 Social History Question Answer Notes LastModified by [employer] Details LastModified Time Tobacco Smoking Status Never Smoker Tolu Hurley, PHANI [address] [place], [address], [place] - [facility] 09/22/2021 10:47:49 Do You Have An Advance Directive? No [email or web address] Information not available 09/22/2021 What Is Your Code Status? Full Code [email or web address] Information not available 09/22/2021 Within The Past 12 Months, Has It Happened That The Food You Bought Just Didn't Last And You Didn't Have Money To Get More. No [email or web address] Information not available 09/22/2021 Within The Past 12 Months, Have You Worried That Your Food Would Run Out Before You Got Money To Buy More. No [email or web address] Information not available 09/22/2021 Fall Risk: Do You Feel Unsteady When Standing Or Walking? No [email or web address] Information not available 09/22/2021 Excessive Alcohol Or Drug Use No [email or web address] Information not available 09/22/2021 Does This Patient Have A PCP? Yes [email or web address] Information not available 09/22/2021 Sex: Unknown Functional Status Question Answer Note LastModified by [employer] Details LastModified Time Do you use any illicit or recreational drugs? No [email or web address] Information not available 09/22/2021 Do you or have you ever used any other forms of tobacco or nicotine? No [email or web address] Information not available 09/22/2021 What is your level of alcohol consumption? None [email or web address] Information not available 09/22/2021 Mental Status None recorded. Family History Relationship Description Onset Age of this Age Resolved Age Notes LastModified by Organization Details LastModified Time Father Hypertensive disorder [email or web address] Not available 2021 10:48:10 Medical History Condition Response Coronary Artery Disease N Hypothyroidism N COPD N A-fib N Cancer N Stroke N [...] Diagnosis SNOMED-CT Code Diagnosis ICD10 Code Diagnosis IMO Codes Diagnosis Note [id number] Tolu Hurley NP [facility] [address] [place] [address] 09/22/2021 10:42:51 09/25/2021 13:00:14 Post-acute COVID-19 [id number] U07.1 Viral gastroenteritis 11 [id number] A08.4 Health Concerns Section Related Observation LastModified by Organization Detai ls LastModified Time None Recorded Concern Status LastModified by Organization Details LastModified Time None Recorded Advance Directives Directive N: Payers Insurance Date Sequence Insurance Name Policy Number Policy Lugo Covered Member ID Lugo Member ID Guarantor Name 09/25/2021 1 [facility] NET PLAN (MEDICAID HMO) [facility] Zeinab Cantu [id number] Zeinab Cantu 09/25/2021 1 [facility] PLAN (MEDICAID HMO) [facility] Zeinab Cantu [id number] Zeinab Cantu 09/25/2021 1 [place] [facility] Zeinab Cantu [id number] Zeinab Cantu 09/21/2021 1 *SELF PAY* Zeinab Cantu [id number] Zeinab Cantu Notes Date Note Type Note [...] brittaney. Tolu Hurley NP [address], [place], [address], [place] - [facility] 09/22/2021 11:27:05 OBGyn Episode No OBEpisode recorded.
--- NOTE | 2025-07-25 10:05 | A.OFFPC_ITS ---
Intake Visit Reasons: diabetes & med management Allergies kiwi (KIWI) Allergy (Mild, Verified 12/13/24 08:46) HIVES mold (MOLD EXTRACTS*) Allergy (Mild, Verified 12/13/24 08:46) HIVES Medication List - Last Reconciled 07/25/25 by Jose Estes MD ammonium lactate 12% 1 appl See Protocol topical BID 30 days apixaban (Eliquis) 5 mg PO BID 90 days atenolol 50 mg PO DAILY atorvastatin 20 mg PO BEDTIME clozapine 100 mg PO BEDTIME 30 days clozapine 50 mg PO BEDTIME 30 days divalproex ER 1,500 mg (3 x 500 mg) PO BEDTIME 30 days dulaglutide (Trulicity) 1.5 mg (0.5 mL) subcut QWEEK 90 days furosemide 40 mg PO DAILY glipizide-metformin 5-500 mg 2 tabs PO BID 90 days lorazepam 1 mg PO BEDTIME PRN 30 days nystatin 1 appl See Protocol topical BID 30 days trazodone 50 mg PO BEDTIME PRN 30 days Tobacco use date assessed: 06/04/25 Dental Screening Dental Screen Date: 06/04/25 HPI HPI Comments History of Present Illness Details History of Present Illness The patient is a 34 year old individual presenting for a follow-up visit for management of chronic conditions, including diabetes and diarrhea. HTN : Bp stable Type 2 Diabetes Mellitus: - The patient's hemoglobin A1c was 7.2% from labs performed in May. - A recent postprandial blood glucose re ading was 180 mg/dL. - Current medications for diabetes inclu de Trulicity 1.5 mg, glipizide, and metformin. Chronic Diarrhea: - The patient reports experiencing on-an d-off diarrhea. - The patient presented to the [facility] ER for this issue but declined IV fluids and was discharged. - The patient has an appointment for a mercedes tapia opinion with a pet sitting in [place] scheduled for September. Psychiatric History / Bipolar disorder - The patient is under the care of a psy chiatrist, Dr. Nathan Conklin, and a therapist. - The patient sees the psychiatrist vilma bauer but has been doing well, so the next appointment is not until October. - Therapy sessions occur every other wee k. - Psychiatric medications include clozap ine, divalproex, lorazepam, and trazodone. Hypoxemia: - The patient sometimes uses oxygen at l evel 2 during the night. - An appointment is scheduled with a pul monary specialist on August 06 for a walking test. Medical History: - Type 2 Diabetes Mellitus - Chronic diarrhea - Unspecified psychiatric disorder, gilda ged by Dr. Nathan Conklin and a therapist. - Nocturnal hypoxemia requiring oxygen s upplementation. - Receives care at [facility] [place]. Diagnostic Results: - Labs from May: - Hemoglobin: Normal - Hemoglobin A1c: 7.2% - Self-reported values: - Blood pressure: 130/84 mmHg - Postprandial blood glucose: 180 mg/dL [facility] Medical History Bipolar disorder Factor 5 Leiden mutation, heterozygous Venous stasis Chronic cellulitis Fever Fever of unknown origin Foot swelling Hidradenitis suppurativa Schizoaffective disorder, bipolar type Hypertension, essential Uncontrolled type 2 diabetes mellitus with hyperglycemia Leg edema Obesity, morbid Asthma Seasonal asthma Surgical History History of ovarian cyst History of wisdom tooth extraction Family History Father HTN (hypertension) Diabetes mellitus Mother Afib Maternal Grandfather No problems noted. Maternal Grandmother No problems noted. Paternal Grandmother Breast cancer Paternal Grandfather No problems noted. Sister No problems noted. Social History Household Members: Family Household Members Other:: father [phone] Housing: House Do you presently have visiting nurse or other home services: Yes Unable to assess alcohol history related to: Unknown Alcohol intake: never Comment: 1:1 Patient Tobacco Use Status: Never used Tobacco Tobacco use type: Cigarette Years Smoked: 3 yrs e-Cigarette/Vaping Use: Never Used Second Hand Smoke Exposure: No service: No Current occupational status: employed Sexual orientation: Straight/Heterosexual Cognitive needs: No Hearing needs: No Vision needs: Yes Questionnaire Thrive Questionnaire Date Thrive assessed: 05/28/25 I am a: Patient What is your living situation today?: I have a place to live, but I am worried about losing it in the future Within the past 12 months, did the food you bought not last and you didn't have the money to get more?: Sometimes True Within the past 12 months, did you worry whether your food would run out before you got money to buy more?: Often true Do you have trouble paying for medicines?: No Do you have trouble getting transportation to medical appointments?: No Do you have trouble paying your heating and electricity bill?: No Do you have trouble taking care of your child, family member or friend?: No Do you have trouble with day-to-day activities such as bathing, preparing meals, shopping, managing finances, etc.?: No Are you currently unemployed and looking for a job?: No Are you interested in more education?: No Please select the resources that you would like help with: None Currently or been in a relationship where the following occur: No concerns reported THRIVE Score: 3 SOLE-7 AMB Questionnaire SOLE-7 Date SOLE - 7 assessed: 09/27/24 (patient declined) Source: Developed by Drs. Ricco Gunter, Lashonda Munroe, Nate Galvin and colleagues, with an educational giovana from [employer]. Review of Systems Narrative Review of Systems - Gastrointestinal: Reports on-and-off diarrhea. - Cardiovascular: Reports normal blood pressure readings at home, recently 130/84 mmHg. - General: No fever no chills - Neurological: No headaches no dizziness - Ear nose throat: No sore throat no hearing difficulty no ear pain - Endocrine: No polyuria polydipsia no heat intolerance - Genitourinary: No dysuria , no blood in urine Physical exam (Primary Care) Tobacco/Smoking Status: Tobacco use Status Tobacco use date assessed 06/04/25 07/25/25 10:08 Patient Tobacco Use Status Never used Tobacco 07/25/25 10:08 Tobacco use type Cigarette 07/25/25 10:08 e-Cigarette/Vaping Use Never Used 07/25/25 10:08 Thrive Assessment: Date of Thrive Assessment Date Thrive assessed 05/28/25 07/25/25 10:08 Currently or been in a relationship where the following occur: No concerns reported Narrative Telehealth Telehealth Telehealth Platform: [facility] Location of provider rendering services: practice address Location of patient: address on file Patient Identification confirmed using: Name, : Yes Telehealth method: video Patient verbally consented to treatment: Yes Patient verbally consented to billing insurance company: Yes Patient informed of any privacy concerns related to visit: Yes Coding Level of Care Code Est Pt Level 4 (02602) Diagnoses Diabetes 1.5, managed as type 2 E13.9 Chronic diarrhea K52.9 Factor 5 Leiden mutation, heterozygous D68.51 Lipid disorder E78.9 Hypertension, essential I10 Schizoaffective disorder, bipolar type F25.0 Time Spent (min) 30 Comment review chart / labs/ face to face / coordination of care Assessment & Plan Assessment & Plan (1) Diabetes 1.5, managed as type 2: Code(s): E13.9 - Other specified diabetes mellitus without complications Category: Medical (2) Chronic diarrhea: Code(s): K52.9 - Noninfective gastroenteritis and colitis, unspecified Category: Medical (3) Factor 5 Leiden mutation, heterozygous: Code(s): D68.51 - Activated protein C resistance Category: Medical (4) Lipid disorder: Code(s): E78.9 - Disorder of lipoprotein metabolism, unspecified Category: Medical (5) Hypertension, essential: Code(s): I10 - Essential (primary) hypertension Category: Medical (6) Schizoaffective disorder, bipolar type: Code(s): F25.0 - Schizoaffective disorder, bipolar type Category: Medical Plan Plan - Discontinue metformin permanently due to its potential to cause diarrhea. - Change glipizide from the combination tablet to 10 mg tablets, with a new prescription to be sent for 1 tablet in the morning and 1 tablet at night. - Do not increase the dose of Trulicity at this time; will reassess after reviewing updated blood glucose levels. - The patient will monitor blood glucose levels and call to report fasting results in approximately 10 days. - An order will be placed for a hemoglobin A1c and a blood count; the patient will have labs drawn during the upcoming hospital visit for the pulmonary appointment. - The patient will continue with the scheduled cardiopulmonary technologist appointment on August 06 for a walking test. - The patient will proceed with the gastroenterology consult in September. - Schedule a follow-up appointment in approximately three months Medications: New glipizide 10 mg PO BID 180 tabs 0RF 90 days Discontinued glipizide-metformin 5-500 mg Discontinued Reason: Doctor's Order 2 tabs PO BID 90 days 360 tabs 0RF
== END 2025-07-25 13:59 | disposition home or self-care (01) ==
LOC: HO.HMCC 08:26
PROVIDERS: PCP Internal Medicine; Visit Provider Internal Medicine
DX: E13.9 Other specified diabetes mellitus without complications (principal); F25.0 Schizoaffective disorder, bipolar type; K52.9 Noninfective gastroenteritis and colitis, unspecified; D68.51 Activated protein C resistance; E78.9 Disorder of lipoprotein metabolism, unspecified; I10 Essential (primary) hypertension